=== PATIENT | male | born 1945 | race Caucasian/White ===

== ENCOUNTER 2016-11-01 09:25 | Outpatient (CLI) | payer MEDICARE, OTHER | END 2016-11-01 09:26 | disposition critical access hospital (66) | LOC: EMS 09:25 | PROVIDERS: ATTEND Surgery | DX: R41.82 Altered mental status, unspecified (principal) | CPT/HCPCS: A0425; A0427 ==

== ENCOUNTER 2016-11-01 09:35 | Inpatient (IN) | payer MEDICARE, OTHER ==
[2016-11-01] MEDS ORDERED: INSULIN REGULAR HUMAN 100 UNIT/1 ML 10 ML MDV IVP STA (10:40)
[2016-11-01] MEDS ORDERED: CALCIUM GLUCONATE 1000 MG/10 ML VIAL IVP STA (10:40)
[2016-11-01] MEDS ORDERED: FUROSEMIDE 40 MG/4 ML VIAL IVP STA (10:42)
[2016-11-01] MEDS ORDERED: SODIUM POLYSTYRENE SULFONATE 15 GM/60 ML BOTTLE PO STA (10:43)
[2016-11-01] MEDS ORDERED: FUROSEMIDE 40 MG/4 ML VIAL ONE (10:45)
[2016-11-01] MEDS ORDERED: CALCIUM GLUCONATE 1000 MG/10 ML VIAL ONE (10:45)
[2016-11-01] MEDS ORDERED: INSULIN REGULAR HUMAN 100 UNIT/1 ML 10 ML MDV ONE (10:45)
[2016-11-01] MEDS ORDERED: SODIUM POLYSTYRENE SULFONATE 15 GM/60 ML BOTTLE ONE (11:30)
[2016-11-01] MEDS ORDERED: HYDROcod/ACETAM 5/325 MG TABLET PO PRN (13:56)
[2016-11-01] MEDS ORDERED: ONDANSETRON 4 MG/2 ML VIAL IVP PRN (13:56)
[2016-11-01] MEDS ORDERED: ALBUTEROL NEB 2.5 MG/3 ML INH PRN (13:56)
[2016-11-01] MEDS ORDERED: ACETAMINOPHEN 325 MG TABLET PO PRN (13:56)
[2016-11-01] MEDS: SODIUM CHLORIDE 0.9% 1,000 ML IV SCH (14:59)
[2016-11-01] MEDS: SODIUM CHLORIDE FLUSH 0.9% 10 ML SYRINGE IVP PRN (15:00)
[2016-11-01] MEDS: SODIUM CHLORIDE FLUSH 0.9% 10 ML SYRINGE IVP SCH (15:00)
[2016-11-01] MEDS ORDERED: IPRATROPIUM/ALBUTEROL 3 ML NEB INH PRN (15:22)
[2016-11-01] MEDS: AMPICILLIN/SULBACTAM 3 GM in SODIUM CHLORIDE 0.9% MINIBAG 100 ML IV SCH (17:53)
[2016-11-01] MEDS: INSULIN ASPART 300 UNIT/3 ML PEN SUBQ SCH ×2 (18:15→21:37)
[2016-11-01] MEDS ORDERED: KETOROLAC TROMETHAMINE LEFTEYE SCH (18:30)
[2016-11-01] MEDS: prednisoLONE 1% OPHTH DROPS 75 DROPS/5 ML BOTTLE LEFTEYE SCH (18:35)
[2016-11-01] MEDS: HYDROmorphone 1 MG/ML SYRINGE IVP PRN ×2 (20:00→22:42)
[2016-11-01] MEDS: INSULIN GLARGINE 300 UNIT/3 ML PEN SUBQ SCH (21:36)
[2016-11-02] MEDS: AMPICILLIN/SULBACTAM 3 GM in SODIUM CHLORIDE 0.9% MINIBAG 100 ML IV SCH ×4 (00:23→17:20)
[2016-11-02] MEDS: HYDROmorphone 1 MG/ML SYRINGE IVP PRN (04:09)
[2016-11-02] MEDS: SODIUM CHLORIDE FLUSH 0.9% 10 ML SYRINGE IVP SCH ×3 (05:02→21:05)
[2016-11-02] MEDS: SODIUM CHLORIDE 0.9% 1,000 ML IV SCH ×2 (06:04→22:25)
[2016-11-02] MEDS: MAGNESIUM SULFATE 2 GRAM 50 ML IV SCH ×2 (06:58→08:23)
[2016-11-02] MEDS: NEUTRA-PHOS 250 MG TABLET PO SCH ×2 (06:59→08:19)
[2016-11-02] MEDS: INSULIN ASPART 300 UNIT/3 ML PEN SUBQ SCH ×4 (08:16→21:05)
[2016-11-02] MEDS: ENOXAPARIN 40 MG/0.4 ML SYRINGE SUBQ SCH (08:17)
[2016-11-02] MEDS: INSULIN GLARGINE 300 UNIT/3 ML PEN SUBQ SCH ×2 (08:17→21:04)
[2016-11-02] MEDS: KETOROLAC TROMETHAMINE LEFTEYE SCH ×4 (08:18→21:05)
[2016-11-02] MEDS: prednisoLONE 1% OPHTH DROPS 75 DROPS/5 ML BOTTLE LEFTEYE SCH ×4 (08:18→21:05)
[2016-11-02] MEDS: MAGNESIUM OXIDE 400 MG TABLET PO SCH ×2 (08:25→15:21)
[2016-11-02] MEDS ORDERED: ATORVASTATIN 10 MG TABLET PO SCH (21:00)
[2016-11-03] MEDS: AMPICILLIN/SULBACTAM 3 GM in SODIUM CHLORIDE 0.9% MINIBAG 100 ML IV SCH ×2 (01:50→06:36)
[2016-11-03] MEDS: LISINOPRIL 5 MG TABLET PO SCH ×2 (01:50→10:42)
[2016-11-03] MEDS: CARVEDILOL 12.5 MG TABLET PO SCH ×2 (01:50→10:41)
[2016-11-03] MEDS: SODIUM CHLORIDE FLUSH 0.9% 10 ML SYRINGE IVP PRN (01:51)
[2016-11-03] MEDS: SODIUM CHLORIDE 0.9% 1,000 ML IV SCH (02:09)
[2016-11-03] MEDS: SODIUM CHLORIDE FLUSH 0.9% 10 ML SYRINGE IVP SCH (07:32)
[2016-11-03] MEDS ORDERED: ALLOPURINOL 100 MG TABLET PO SCH (09:00)
[2016-11-03] MEDS ORDERED: CHOLECALCIFEROL 1,000 UNIT TABLET PO SCH (09:00)
[2016-11-03] MEDS ORDERED: SERTRALINE 50 MG TABLET PO SCH (09:00)
[2016-11-03] MEDS ORDERED: CLOPIDOGREL 75 MG TABLET PO SCH (09:00)
[2016-11-03] MEDS ORDERED: CYANOCOBALAMIN 500 MCG TABLET PO SCH (09:00)
[2016-11-03] MEDS: INSULIN ASPART 300 UNIT/3 ML PEN SUBQ SCH (10:41)
[2016-11-03] MEDS: ENOXAPARIN 40 MG/0.4 ML SYRINGE SUBQ SCH (10:42)
[2016-11-03] MEDS: KETOROLAC TROMETHAMINE LEFTEYE SCH (10:42)
[2016-11-03] MEDS: INSULIN GLARGINE 300 UNIT/3 ML PEN SUBQ SCH (10:42)
[2016-11-03] MEDS: prednisoLONE 1% OPHTH DROPS 75 DROPS/5 ML BOTTLE LEFTEYE SCH (10:43)
== END 2016-11-03 10:35 | disposition home or self-care (01) | DRG 177 ==
DX: J69.0 Pneumonitis due to inhalation of food and vomit (principal); R40.1 Stupor; J96.02 Acute respiratory failure with hypercapnia; J18.1 Lobar pneumonia, unspecified organism; J96.01 Acute respiratory failure with hypoxia; N17.9 Acute kidney failure, unspecified; E11.9 Type 2 diabetes mellitus without complications; E78.00 Pure hypercholesterolemia, unspecified; E87.5 Hyperkalemia; E11.65 Type 2 diabetes mellitus with hyperglycemia; G47.33 Obstructive sleep apnea (adult) (pediatric); I25.10 Atherosclerotic heart disease of native coronary artery without angina pectoris; I11.0 Hypertensive heart disease with heart failure; Z79.82 Long term (current) use of aspirin; I50.9 Heart failure, unspecified; G89.29 Other chronic pain; M79.605 Pain in left leg; K21.9 Gastro-esophageal reflux disease without esophagitis; E78.5 Hyperlipidemia, unspecified; E66.9 Obesity, unspecified; Z68.39 Body mass index [BMI] 39.0-39.9, adult; Z79.4 Long term (current) use of insulin; Z79.01 Long term (current) use of anticoagulants; Z79.891 Long term (current) use of opiate analgesic; Z79.84 Long term (current) use of oral hypoglycemic drugs; Z79.899 Other long term (current) drug therapy; Z95.1 Presence of aortocoronary bypass graft; Z95.5 Presence of coronary angioplasty implant and graft; Z87.891 Personal history of nicotine dependence

== ENCOUNTER 2017-11-13 17:16 | Inpatient (IN) | payer MEDICARE, OTHER ==
[2017-11-13 17:35] LABS: BASOPHILS # (AUTO) 0.1 10^3/uL (0.0-0.1); EOSINOPHILS # (AUTO) 0.1 10^3/uL (0.0-0.7); EOSINOPHILS % (AUTO) 1.3 %; HGB - HEMOGLOBIN 17.6 g/dL (14.0-18.0); LYMPHOCYTES # (AUTO) 1.2 10^3/uL (1.5-3.5); LYMPHOCYTES % (AUTO) 11.9 %; MEAN CORPUSCULAR HEMOGLOBIN 28.6 pg (27.0-31.0); MEAN CORPUSCULAR HGB CONC 33.3 g/dL (32.0-36.0); MEAN CORPUSCULAR VOLUME 85.7 fL (80.0-94.0); MEAN PLATELET VOLUME 6.5 fL (7.4-11.4); MONOCYTES # (AUTO) 0.5 10^3/uL (0.0-1.0); MONOCYTES % (AUTO) 5.3 %; NEUTROPHILS # (AUTO) 7.8 10^3/uL (1.5-6.6); NEUTROPHILS % (AUTO) 80.5 %; PLT - PLATELET COUNT 130 10^3/uL (130-450); RED BLOOD COUNT 6.16 10^6/uL (4.70-6.10); RED CELL DISTRIBUTION WIDTH 15.1 % (12.0-15.0); WHITE BLOOD COUNT 9.6 x10^3/uL (4.8-10.8)
--- NOTE | 2017-11-13 17:42 | ED Physician Documentation ---
History of Present Illness - Stated complaint Stated Complaint: DIABETIC/CONFUSION - Chief complaint Chief Complaint: Neuro - History obtained from History obtained from: Patient, Family - History of Present Illness Timing: How many days ago (3) Pain level max: 8 Pain level now: 8 Improved by: nothing Worsened by: nothing - Additonal information Additional information: Patient is a 72-year-old male who presents to the emergency department after a fall out of bed 3 days ago in which he struck his head. Since that time has had increasing headaches, becoming suddenly worsened today. Altered mental status per family, confused about events today per son. Unknown what medications he is taken at home. He is a diabetic, unclear if he took his medication today or not. Also states that he had abdominal pain today, no vomiting or diarrhea. No blood in the stool. Review of Systems Constitutional: denies: Fever, Chills Eyes: reports: Photophobia Ears: denies: Ear pain Nose: denies: Rhinorrhea / runny nose, Congestion Throat: denies: Sore throat Cardiac: denies: Chest pain / pressure Respiratory: denies: Cough, Wheezing GI: reports: Abdominal Pain. denies: Nausea, Vomiting, Diarrhea, Hematemesis, Bloody / black stool : denies: Dysuria Skin: denies: Rash Musculoskeletal: denies: Neck pain, Back pain Neurologic: reports: Headache, Head injury. denies: Focal weakness, Numbness, Syncope, Seizure PD PAST MEDICAL HISTORY - Past Medical History Past Medical History: Yes Cardiovascular: Congestive heart failure, Hypertension, High cholesterol, Coronary artery disease, [place] Respiratory: None, CPAP use Endocrine/Autoimmune: Type 2 diabetes GI: None : None HEENT: None Psych: None Musculoskeletal: None Derm: None - Past Surgical History Past Surgical History: Yes General: Cholecystectomy, Appendectomy Cardiovascular: CABG, Coronary stent, Angioplasty - Present Medications Home Medications: Ambulatory Orders Medication Instructions Recorded Confirmed Clopidogrel [Plavix] 75 mg PO DAILY 03/19/13 11/01/16 Cyanocobalamin (Vitamin B-12) 1,000 mcg PO DAILY 03/25/15 11/01/16 [B-12] Allopurinol 200 mg PO DAILY 11/01/16 11/01/16 Aspirin 81 tab PO DAILY 11/01/16 11/01/16 Atorvastatin Calcium 10 mg PO QPM 11/01/16 11/01/16 Bupropion HCl 37.5 mg PO BID 11/01/16 11/01/16 Cholecalciferol (Vitamin D3) 2,000 unit PO DAILY 11/01/16 11/01/16 [Vitamin D3] Furosemide [Lasix] 40 tab PO DAILY 11/01/16 11/01/16 Ketorolac Tromethamine [Acular] 1 drops LEFTEYE QID 11/01/16 11/01/16 Lisinopril [Zestril] 10 mg PO DAILY 11/01/16 11/01/16 Omeprazole 40 mg PO QDAC 11/01/16 11/01/16 Sertraline HCl [Zoloft] 200 mg PO DAILY 11/01/16 11/01/16 Testosterone Cypionate 100 mg IM TU 11/01/16 11/01/16 [Depo-Testosterone] prednisoLONE 1% OPHTH DROPS [Pred 1 drops LEFTEYE QID 11/01/16 11/01/16 Forte 1% Ophth Drops] Amox/Clav 875/125 [Augmentin] 1 each PO Q12H #14 tablet 11/03/16 Carvedilol [Coreg] 12.5 mg PO BID #45 tablet 11/03/16 Insulin Glargine [Lantus Solostar] 30 unit SUBQ BID 30 Days pen 11/03/16 - Allergies Allergies/Adverse Reactions: Allergies Allergy/AdvReac Type Severity Reaction Status Date / Time shellfish derived Allergy Unknown Verified 11/13/17 17:37 - Social History Does the pt smoke?: No Smoking Status: Never smoker Does the pt drink ETOH?: Yes Does the pt have substance abuse?: No - Immunizations Immunizations are current?: Yes - POLST Patient has POLST: No PD ED PE NORMAL - Vitals Vital signs reviewed: Yes - General General: Other (alert, oriented to person, place but not time) - HEENT HEENT: Atraumatic, PERRL, Ears normal, Moist mucous membranes, Other (abrasion and bruise to the L cheek) - Neck Neck: Supple, no meningeal sign, No bony TTP - Cardiac Cardiac: RRR, Strong equal pulses - Respiratory Respiratory: No respiratory distress, Clear bilaterally - Abdomen Abdomen: Other (mild diffuse TTP without peritoneal signs.) - Back Back: No spinal TTP - Derm Derm: Warm and dry - Extremities Extremities: No deformity, No tenderness to palpate - Neuro Neuro: college specialist 2-12 intact, No motor deficit, No sensory deficit, Normal speech Eye Opening: Spontaneous Motor: Obeys Commands Verbal: Confused GCS Score: 14 - Psych Psych: Normal affect Results - Vitals Vitals: Vital Signs - 24 hr 11/13/17 11/13/17 11/13/17 17:28 19:15 19:31 Temperature 36.4 C L Heart Rate 89 112 H 85 Respiratory 18 20 16 Rate Blood Pressure 159/88 H 212/86 H 162/78 H O2 Saturation 100 98 98 11/13/17 20:25 Temperature Heart Rate 99 Respiratory 16 Rate Blood Pressure 181/82 H O2 Saturation 98 Oxygen O2 Source [With Activity] Room air O2 Source [Without Activity] Room air O2 Source Nasal cannula Oxygen Flow Rate 2 - Labs Labs: Laboratory Tests 11/13/17 11/13/17 11/13/17 17:29 17:30 17:30 WBC 9.6 RBC 6.16 H Hgb 17.6 Hct 52.8 H MCV 85.7 MCH 28.6 MCHC 33.3 RDW 15.1 H Plt Count 130 MPV 6.5 L Neut # (Auto) 7.8 H Lymph # (Auto) 1.2 L [place] # (Auto) 0.5 Eos # (Auto) 0.1 Baso # (Auto) 0.1 Absolute Nucleated RBC 0.03 Nucleated RBC % 0.3 VBG pH VBG pCO2 VBG pO2 VBG HCO3 VBG Total CO2 VBG O2 Saturation VBG Base Excess Sodium 133 L Potassium 4.2 Chloride 96 L Carbon Dioxide 28 Anion Gap 9.0 BUN 15 Creatinine 1.2 Estimated GFR (MDRD) 60 L Glucose 293 H POC Whole Bld Glucose 308 H Glycated Hemoglobin Estim Average Glucose Calcium 9.6 Total Bilirubin 1.3 H AST 20 ALT 20 Alkaline Phosphatase 62 Total Protein 8.1 Albumin 4.1 Globulin 4.0 Albumin/Globulin Ratio 1.0 Lipase 26 Urine Color Urine Clarity Urine pH Ur Specific [place] Urine Protein Urine Glucose (UA) Urine Ketones Urine Occult Blood Urine Nitrite Urine Bilirubin Urine Urobilinogen Ur Leukocyte Esterase Urine RBC Urine WBC Ur Squamous Epith Cells Urine Bacteria Urine Casts Ur Microscopic Review Urine Culture Comments Salicylates Urine Opiates Screen Ur Oxycodone Screen Urine Methadone Screen Ur Propoxyphene Screen Acetaminophen Ur Barbiturates Screen Ur Tricyclics Screen Ur Phencyclidine Scrn Ur Amphetamine Screen U Methamphetamines Scrn U Benzodiazepines Scrn Urine Cocaine Screen U Cannabinoids Screen Ethyl Alcohol 11/13/17 11/13/17 11/13/17 17:30 18:48 18:48 WBC RBC Hgb Hct MCV MCH MCHC RDW Plt Count MPV Neut # (Auto) Lymph # (Auto) [place] # (Auto) Eos # (Auto) Baso # (Auto) Absolute Nucleated RBC Nucleated RBC % VBG pH 7.469 H VBG pCO2 42.4 VBG pO2 32.7 VBG HCO3 30.1 H VBG Total CO2 31.4 H VBG O2 Saturation 5.7 L VBG Base Excess 5.7 H Sodium Potassium Chloride Carbon Dioxide Anion Gap BUN Creatinine Estimated GFR (MDRD) Glucose POC Whole Bld Glucose Glycated Hemoglobin 8.5 H Estim Average Glucose 197 H Calcium Total Bilirubin AST ALT Alkaline Phosphatase Total Protein Albumin Globulin Albumin/Globulin Ratio Lipase Urine Color Urine Clarity Urine pH Ur Specific [place] Urine Protein Urine Glucose (UA) Urine Ketones Urine Occult Blood Urine Nitrite Urine Bilirubin Urine Urobilinogen Ur Leukocyte Esterase Urine RBC Urine WBC Ur Squamous Epith Cells Urine Bacteria Urine Casts Ur Microscopic Review Urine Culture Comments Salicylates < 6.0 Urine Opiates Screen Ur Oxycodone Screen Urine Methadone Screen Ur Propoxyphene Screen Acetaminophen < 10 L Ur Barbiturates Screen Ur Tricyclics Screen Ur Phencyclidine Scrn Ur Amphetamine Screen U Methamphetamines Scrn U Benzodiazepines Scrn Urine Cocaine Screen U Cannabinoids Screen Ethyl Alcohol < 5.0 11/13/17 19:08 WBC RBC Hgb Hct MCV MCH MCHC RDW Plt Count MPV Neut # (Auto) Lymph # (Auto) [place] # (Auto) Eos # (Auto) Baso # (Auto) Absolute Nucleated RBC Nucleated RBC % VBG pH VBG pCO2 VBG pO2 VBG HCO3 VBG Total CO2 VBG O2 Saturation VBG Base Excess Sodium Potassium Chloride Carbon Dioxide Anion Gap BUN Creatinine Estimated GFR (MDRD) Glucose POC Whole Bld Glucose Glycated Hemoglobin Estim Average Glucose Calcium Total Bilirubin AST ALT Alkaline Phosphatase Total Protein Albumin Globulin Albumin/Globulin Ratio Lipase Urine Color YELLOW Urine Clarity CLEAR Urine pH 6.5 Ur Specific [place] 1.015 Urine Protein 100 H Urine Glucose (UA) 500 H Urine Ketones NEGATIVE Urine Occult Blood TRACE-LYSE Urine Nitrite NEGATIVE Urine Bilirubin NEGATIVE Urine Urobilinogen 0.2 (NORMAL) Ur Leukocyte Esterase NEGATIVE Urine RBC 0-5 Urine WBC 0-3 Ur Squamous Epith Cells NONE SEEN Urine Bacteria None Seen Urine Casts 3-5 Hyaline Casts Ur Microscopic Review INDICATED Urine Culture Comments NOT INDICATED Salicylates Urine Opiates Screen NEGATIVE Ur Oxycodone Screen POSITIVE H Urine Methadone Screen NEGATIVE Ur Propoxyphene Screen NEGATIVE Acetaminophen Ur Barbiturates Screen NEGATIVE Ur Tricyclics Screen NEGATIVE Ur Phencyclidine Scrn NEGATIVE Ur Amphetamine Screen NEGATIVE U Methamphetamines Scrn NEGATIVE U Benzodiazepines Scrn NEGATIVE Urine Cocaine Screen NEGATIVE U Cannabinoids Screen NEGATIVE Ethyl Alcohol - Rads (name of study) head CT Radiology: Prelim report reviewed, EMP read contemporaneously, See rad report ( No acute intracranial abnormalities. ) abd/pelvis CT Radiology: Prelim report reviewed, EMP read contemporaneously, See rad report ( No acute abnormalities. ) PD MEDICAL DECISION MAKING - ED course Complexity details: reviewed results, re-evaluated patient, considered differential, d/w patient, d/w family, d/w apartment leasing consultant ED course: Patient is a 72-year-old male who presents to the emergency department with altered mental status of unclear etiology. No acute findings on head CT. He also had abdominal tenderness but his abdominal CT does not show any acute abnormalities as well. Pain was well controlled in the emergency department with morphine, but he is still altered and became more altered in the emergency department. We will admit the patient for further care. Has hyperglycemia as well, but I do not think this is elevated enough to cause his symptoms. Will likely benefit from an MRI in the morning. Discussed the case with Dr. López, hospitalist who accepts. This document was made in part using voice recognition software. While efforts are made to proofread this document, sound alike and grammatical errors may occur. - Sepsis Event Vital Signs: Vital Signs - 24 hr 11/13/17 11/13/17 11/13/17 17:28 19:15 19:31 Temperature 36.4 C L Heart Rate 89 112 H 85 Respiratory 18 20 16 Rate Blood Pressure 159/88 H 212/86 H 162/78 H O2 Saturation 100 98 98 11/13/17 20:25 Temperature Heart Rate 99 Respiratory 16 Rate Blood Pressure 181/82 H O2 Saturation 98 Oxygen O2 Source [With Activity] Room air O2 Source [Without Activity] Room air O2 Source Nasal cannula Oxygen Flow Rate 2 Departure - Departure Disposition: [facility] DC/Xfer Clinical Impression: Altered mental status Qualifiers: Altered mental status type: unspecified Qualified Code(s): R41.82 - Altered mental status, unspecified T2DM (type 2 diabetes mellitus) Qualifiers: Diabetes mellitus jail insulin use: with emt intermediate use Diabetes mellitus complication status: with unspecified complications Qualified Code(s): E11.8 - Type 2 diabetes mellitus with unspecified complications Condition: Stable Discharge Date/Time: 11/13/17 21:29
[2017-11-13 18:01] LABS: ALBUMIN 4.1 g/dL (3.2-5.5); BILIRUBIN,TOTAL 1.3 mg/dL (0.2-1.0); CALCIUM 9.6 mg/dL (8.5-10.3); CREATININE 1.2 mg/dL (0.6-1.2); TOTAL PROTEIN 8.1 g/dL (6.7-8.2)
[2017-11-13] MEDS ORDERED: ACETAMINOPHEN 325 MG TABLET PO STA (18:02)
--- NOTE | 2017-11-13 18:02 | CT Report ---
EXAM: CT HEAD EXAM DATE: 11/13/2017 05:51 PM. CLINICAL HISTORY: ALOC, fell, head injury 3 days ago. COMPARISON: 06/23/15. TECHNIQUE: Multiaxial CT images were obtained from the foramen magnum to the vertex. Reformats: Coron al. IV contrast: None. In accordance with CT protocol optimization, one or more of the following dose reduction techniques w ere utilized for this exam: automated exposure control, adjustment of mA and/or KV based on patient s ize, or use of iterative reconstructive technique. FINDINGS: Parenchyma: No intracranial hemorrhage. No evidence of mass, midline shift or CT findings of acute te rritorial infarction. Garcia-white differentiation is distinct. Extraaxial Spaces: No subdural or epidural collections identified. Ventricles: No hydrocephalus Sinuses: Imaged paranasal sinuses, orbits, and mastoids show no significant abnormality. Bilateral le ns extractions are present. Bones: No evidence of acute fracture or calvarial defect. Other: None. IMPRESSION: No acute intracranial abnormalities. [facility] Referring Provider Line: [phone] SITE ID: [id number]
--- NOTE | 2017-11-13 18:02 | CT Preliminary Report ---
Exam: CT HEAD W/O IMPRESSION: No acute intracranial abnormalities. [facility] SITE ID: [id number]
[2017-11-13] MEDS ORDERED: SODIUM CHLORIDE 0.9% 1,000 ML IV ONE ×2 (18:18→19:49)
[2017-11-13] MEDS ORDERED: IOPAMIDOL-300 100 ML VIAL ONE (18:18)
[2017-11-13] MEDS ORDERED: IOPAMIDOL-300 100 ML VIAL IVP ONE (18:29)
--- NOTE | 2017-11-13 18:43 | CT Report ---
EXAM: CT ABDOMEN AND PELVIS EXAM DATE: 11/13/2017 06:29 PM. CLINICAL HISTORY: Diffuse abd pain after fall. COMPARISONS: 06/29/08. TECHNIQUE: Routine helical CT imaging was performed through the abdomen and pelvis. IV contrast: ISOV UE 300 100mL. Enteric contrast: No. Reconstructions: Coronal and sagittal. In accordance with CT protocol optimization, one or more of the following dose reduction techniques w ere utilized for this exam: automated exposure control, adjustment of mA and/or KV based on patient s ize, or use of iterative reconstructive technique. FINDINGS: ABDOMEN: Lung Bases: Incompletely included lower lungs are grossly clear. Heart size is within normal limits. Coronary artery and aortic valvular calcifications are present. No basilar effusions. Liver: Unremarkable. Spleen: Unremarkable. Pancreas: Unremarkable. Gallbladder/Bile Ducts: Status post cholecystectomy. Biliary tree is normal caliber. Adrenal Glands: Unremarkable. Kidneys: No mass, calculi, or hydronephrosis. Bilateral renal cysts. Peritoneum/Mesentery/Bowel: No free fluid, free air, or collection. No intestinal obstruction or inflammation. Lymph nodes: No mesenteric, periportal, or retroperitoneal lymphadenopathy. Retroperitoneum: Abdominal aorta is nonaneurysmal. Portal vein is patent. Hepatic veins are patent. PELVIS: The bladder is unremarkable for the degree of distention. Prostate is present. No pelvic lymp hadenopathy. Bones: No suspicious osseous lesions. IMPRESSION: No acute abnormalities. [facility] Referring Provider Line: [phone] SITE ID: [id number]
--- NOTE | 2017-11-13 18:43 | CT Preliminary Report ---
Exam: CT ABDOMEN/PELVIS W/ IMPRESSION: No acute abnormalities. [facility] SITE ID: [id number]
[2017-11-13 18:55] LABS: VBG BASE EXCESS 5.7 mmol/L (-2 - +2); VBG PCO2 42.4 mmHg (41-51); VBG PH 7.469 (7.31-7.41); VBG PO2 32.7 mmHg (25-47); VBG TOTAL CO2 31.4 mmol/L (24-29)
[2017-11-13] MEDS ORDERED: MORPHINE 10 MG/ML VIAL IVP STA (18:58)
[2017-11-13 19:06] LABS: SALICYLATE < 6.0 mg/dL
[2017-11-13 19:21] LABS: ACETAMINOPHEN < 10 ug/mL (10-30)
[2017-11-13 19:23] LABS: MUDS CUTOFF CONCENTRATIONS CUTOFF CONC BELOW:
[2017-11-13 19:24] LABS: BILIRUBIN,URINE NEGATIVE (NEGATIVE); GLUCOSE, URINE (UA) 500 mg/dL (NEGATIVE); KETONES,URINE (UA) NEGATIVE (NEGATIVE); LEUKOCYTE ESTERASE, URINE NEGATIVE (NEGATIVE); NITRITE,URINE NEGATIVE (NEGATIVE); OCCULT BLOOD,URINE TRACE-LYSE (NEGATIVE); PH,URINE 6.5 PH (5.0-7.5); PROTEIN,URINE 100 mg/dL (NEGATIVE); UROBILINOGEN,URINE 0.2 (NORMAL) E.U./dL (NORMAL)
[2017-11-13 19:30] LABS: CLARITY,URINE CLEAR (CLEAR)
[2017-11-13 19:35] LABS: BACTERIA,URINE None Seen /HPF (None Seen); CASTS, URINE 3-5 Hyaline Casts /LPF; RBC,URINE 0-5 /HPF (0-5); SQUAMOUS EPITHELIAL CELL,UR NONE SEEN (<= Few)
[2017-11-13 19:36] LABS: AMPHETAMINE SCREEN,URINE NEGATIVE (NEGATIVE); BENZODIAZEPINES SCREEN, URINE NEGATIVE (NEGATIVE); COCAINE SCREEN URINE NEGATIVE (NEGATIVE); METHADONE SCREEN, URINE NEGATIVE (NEGATIVE); METHAMPHETAMINES SCREEN, URINE NEGATIVE (NEGATIVE); OPIATE SCREEN, URINE NEGATIVE (NEGATIVE); OXYCODONE SCREEN, URINE POSITIVE (NEGATIVE); PROPOXYPHENE SCREEN, URINE NEGATIVE (NEGATIVE); TRICYCLIC ANTIDEPRESSANT,URINE NEGATIVE (NEGATIVE)
[2017-11-13] MEDS ORDERED: ONDANSETRON 4 MG/2 ML VIAL ONE (19:40)
[2017-11-13] MEDS ORDERED: ONDANSETRON 4 MG/2 ML VIAL IVP STA (19:50)
[2017-11-13] MEDS ORDERED: HYDROmorphone 2 MG/ML VIAL IVP STA (20:15)
[2017-11-13] MEDS ORDERED: TEMAZEPAM 15 MG CAPSULE PO PRN (20:37)
[2017-11-13] MEDS ORDERED: HYDROcod/ACETAM 5/325 MG TABLET PO PRN (20:37)
[2017-11-13] MEDS ORDERED: ACETAMINOPHEN 325 MG TABLET PO PRN (20:37)
[2017-11-13] MEDS ORDERED: PROCHLORPERAZINE 10 MG/2 ML VIAL IVP PRN (20:37)
--- NOTE | 2017-11-13 20:51 | HISTORY & PHYSICAL EXAMINATION ---
Chief Complaint - Chief Complaint Chief Complaint: Altered mental status History of Present Illness - Admitted From Admitted From:: home - History Obtained From History obtained from: Pt's son, ED physician Exam Limitations: Pt has altered mental status - History of Present Illness HPI Comment/Other: Mr. Osmel Baxter is a pleasant 72-year-old gentleman who has a long history consistent for diabetes mellitus, coronary artery disease status post myocardial infarction, sleep apnea, and multiple other comorbidities. He also has a history of chronic nerve pain in his leg. The patient takes oxycodone for his nerve pain and his son relates that he takes about 10 tablets a day. Today the patient's son spoke with him about 1015 and he was fine but when he spoke with the patient around noon he was clearly not himself. The patient's other son's girlfriend who also lives with them saw the patient pouring bleach into the dryer and he was unable to make his thoughts clear. He was brought to the emergency department and is now being admitted with an altered mental status after the initial workup in the emergency department was negative. History - Past Medical History Cardiovascular: reports: Congestive heart failure, Hypertension, High cholesterol, Coronary artery disease, [place] Respiratory: reports: None, CPAP use Endocrine/Autoimmune: reports: Type 2 diabetes GI: reports: None : reports: None HEENT: reports: None Psych: reports: None Musculoskeletal: reports: None Derm: reports: None MRSA Hx?: No - Past Surgical History General: reports: Cholecystectomy, Appendectomy Cardiovascular: reports: CABG, Coronary stent, Angioplasty - Family & Social History Family History Comment/Other: The patient was adopted and does not know his family history. Living arrangement: At home Living Situation: With family - Substance History Use: Uses substance without health or social issues: Alcohol Abuse: Recurrent use of substance despite neg consequences: NONE Dependence: Experiences withdrawal or developed tolerances: NONE Tobacco Details: Cigarettes (Patient quit smoking at age 40 when he had his first heart attack) - POLST Patient has POLST: No POLST Status: Full Code Meds/Allgy - Home Medications Home Medications: Ambulatory Orders Medication Instructions Recorded Confirmed Clopidogrel [Plavix] 75 mg PO DAILY 03/19/13 11/01/16 Cyanocobalamin (Vitamin B-12) 1,000 mcg PO DAILY 03/25/15 11/01/16 [B-12] Allopurinol 200 mg PO DAILY 11/01/16 11/01/16 Aspirin 81 tab PO DAILY 11/01/16 11/01/16 Atorvastatin Calcium 10 mg PO QPM 11/01/16 11/01/16 Bupropion HCl 37.5 mg PO BID 11/01/16 11/01/16 Cholecalciferol (Vitamin D3) 2,000 unit PO DAILY 11/01/16 11/01/16 [Vitamin D3] Furosemide [Lasix] 40 tab PO DAILY 11/01/16 11/01/16 Ketorolac Tromethamine [Acular] 1 drops LEFTEYE QID 11/01/16 11/01/16 Lisinopril [Zestril] 10 mg PO DAILY 11/01/16 11/01/16 Omeprazole 40 mg PO QDAC 11/01/16 11/01/16 Sertraline HCl [Zoloft] 200 mg PO DAILY 11/01/16 11/01/16 Testosterone Cypionate 100 mg IM TU 11/01/16 11/01/16 [Depo-Testosterone] prednisoLONE 1% OPHTH DROPS [Pred 1 drops LEFTEYE QID 11/01/16 11/01/16 Forte 1% Ophth Drops] Amox/Clav 875/125 [Augmentin] 1 each PO Q12H #14 tablet 11/03/16 Carvedilol [Coreg] 12.5 mg PO BID #45 tablet 11/03/16 Insulin Glargine [Lantus Solostar] 30 unit SUBQ BID 30 Days pen 11/03/16 - Allergies Allergies/Adverse Reactions: Allergies Allergy/AdvReac Type Severity Reaction Status Date / Time shellfish derived Allergy Unknown Verified 11/13/17 17:37 Review of Systems - Constitutional Constitutional: reports: Weakness. denies: Fever, Chills, Night sweats - Eyes Eyes: denies: Pain, Blurred vision, Vision loss - Ears, Nose & Throat Ears, Nose & Throat: denies: Ear pain, Hearing loss, Tinnitus, Vertigo, Nosebleeds - Cardiovascular Cariovascular: denies: Chest pain, Edema, Syncope - Respiratory Respiratory: denies: Cough, Sputum production, Wheezing, Hemoptysis - Gastrointestinal Gastrointestinal: denies: Abdominal pain, Constipation, Diarrhea, Rectal bleeding - Genitourinary Genitourinary: denies: Dysuria, Frequency, Urgency - Musculoskeletal Musculoskeletal: denies: Muscle pain, Back pain, Muscle aches - Integumentary Integumentary: denies: Rash, Pruritis, Lesions - Neurological Neurological: reports: General weakness, Memory problems, Other (The patient's mental status is altered.) - Psychiatric Psychiatric: denies: Depression, Anxiety, Suicidal, Hallucinations - Endocrine Endocrine: denies: Polyuria, Polydypsia, Polyphagia - Hematologic/Lymphatic Hematologic/Lymphatic: denies: Anemia, Bruising, Petechiae, Lymphadenopathy - All Other Systems All Other Systems: reports: Reviewed and negative Exam - Vital Signs Reviewed Vital Signs: Yes Vital Signs: Vital Signs x48h Temp Pulse Resp BP Pulse Ox 11/13/17 20:25 99 16 181/82 H 98 11/13/17 19:31 85 16 162/78 H 98 11/13/17 19:15 112 H 20 212/86 H 98 11/13/17 17:28 36.4 C L 89 18 159/88 H 100 - Physical Exam General Appearance: positive: No acute distress, Mild distress, Lethargic Eyes Bilateral: positive: Normal inspection, PERRL, EOMI, No lid inflammation, Conjunctivae nml, No scleral icterus ENT: positive: ENT inspection nml, Pharynx nml, No signs of dehydration Neck: positive: Nml inspection, Thyroid nml, No JVD, Trachea midline. negative : Thyromegaly Respiratory: positive: Chest non-tender, No respiratory distress, Breath sounds nml. negative: Wheezes, Rales, Rhonchi Cardiovascular: positive: Regular rate & rhythm, No murmur, No gallop Peripheral Pulses: positive: 1+ Abdomen: positive: Non-tender, No organomegaly, Nml bowel sounds, No distention. negative: Guarding, Rebound Back: positive: Nml inspection. negative: CVA tenderness (R), CVA tenderness (L ) Skin: positive: Color nml, No rash, Warm, Dry. negative: Cyanosis Extremities: positive: Non-tender, Full ROM, Nml appearance, No pedal edema Neurologic/Psychiatric: positive: Motor nml, Sensation nml, Disoriented to place , Disoriented to time Conclusion/Plan - Problem List (1) Altered mental status Conclusion/Plan: Unsure of etiology. CAT scan of the brain was negative as was a CAT scan of the abdomen. UA was negative for any acute pathology. Chest x-ray was negative for any acute pathology. It is possible that the patient took too much oxycodone by mistake and if that is the case he should clear by the morning. If he is still altered in the morning we will obtain an MRI of his brain and continue to look for reasons that he has an altered mental status. Qualifiers: Altered mental status type: unspecified Qualified Code(s): R41.82 - Altered mental status, unspecified (2) Hyperlipidemia Conclusion/Plan: We will continue the patient on atorvastatin. (3) Hypertension Conclusion/Plan: The patient's blood pressure is elevated, we will restart him on his carvedilol , lisinopril, and Lasix (4) Coronary artery disease Conclusion/Plan: The patient has a history of a heart attack at age 40. We will restart him on his atorvastatin, furosemide, lisinopril, and Plavix. (5) History of gout Conclusion/Plan: Well-managed, no evidence of gouty arthritis at this time. We will continue the patient on allopurinol while he is inpatient. (6) Depression Conclusion/Plan: We will continue the patient on his Zoloft and bupropion. The patient's mental status is altered so we have no way of knowing whether or not he is depressed at this time. (7) Gastroesophageal reflux disease Conclusion/Plan: We will continue the patient on omeprazole. (8) T2DM (type 2 diabetes mellitus) Conclusion/Plan: We will restart the patient on his Lantus and add sliding scale for coverage. We will start the patient on a diabetic diet with low sodium. 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 CLINICAL HISTORY: ALOC, fell, head injury 3 days ago. COMPARISON: 06/23/15. TECHNIQUE: Multiaxial CT images were obtained from the foramen magnum to the vertex. Reformats: Coronal. IV contrast: None. In accordance with CT protocol optimization, one or more of the following dose reduction techniques were utilized for this exam: automated exposure control, adjustment of mA and/or KV based on patient size, or use of iterative reconstructive technique. FINDINGS: Parenchyma: No intracranial hemorrhage. No evidence of mass, midline shift or CT findings of acute territorial infarction. Garcia-white differentiation is distinct. Extraaxial Spaces: No subdural or epidural collections identified. Ventricles: No hydrocephalus Sinuses: Imaged paranasal sinuses, orbits, and mastoids show no significant abnormality. Bilateral lens extractions are present. Bones: No evidence of acute fracture or calvarial defect. Other: None. IMPRESSION: No acute intracranial abnormalities. EXAM: CT ABDOMEN AND PELVIS EXAM DATE: 11/13/2017 06:29 PM. CLINICAL HISTORY: Diffuse abd pain after fall. COMPARISONS: 06/29/08. TECHNIQUE: Routine helical CT imaging was performed through the abdomen and pelvis. IV contrast: ISOVUE 300 100mL. Enteric contrast: No. Reconstructions: Coronal and sagittal. In accordance with CT protocol optimization, one or more of the following dose reduction techniques were utilized for this exam: automated exposure control, adjustment of mA and/or KV based on patient size, or use of iterative reconstructive technique. FINDINGS: ABDOMEN: Lung Bases: Incompletely included lower lungs are grossly clear. Heart size is within normal limits. Coronary artery and aortic valvular calcifications are present. No basilar effusions. Liver: Unremarkable. Spleen: Unremarkable. Pancreas: Unremarkable. Gallbladder/Bile Ducts: Status post cholecystectomy. Biliary tree is normal caliber. Adrenal Glands: Unremarkable. Kidneys: No mass, calculi, or hydronephrosis. Bilateral renal cysts. Peritoneum/Mesentery/Bowel: No free fluid, free air, or collection. No intestinal obstruction or inflammation. Lymph nodes: No mesenteric, periportal, or retroperitoneal lymphadenopathy. Retroperitoneum: Abdominal aorta is nonaneurysmal. Portal vein is patent. Hepatic veins are patent. PELVIS: The bladder is unremarkable for the degree of distention. Prostate is present. No pelvic lymphadenopathy. Bones: No suspicious osseous lesions. IMPRESSION: No acute abnormalities. Core Measures - Anticipated LOS I expect patient to be DC'd or transferred within 96 hours.: Yes - DVT/VTE - Prophylaxis VTE/DVT Device ordered at admit?: Yes
[2017-11-13] MEDS ORDERED: KETOROLAC TROMETHAMINE LEFTEYE SCH (21:00)
[2017-11-13] MEDS ORDERED: BUPROPION HCL PO SCH (21:00)
[2017-11-13] MEDS ORDERED: ATORVASTATIN CALCIUM 10 MG PO SCH (21:00)
[2017-11-13] MEDS ORDERED: prednisoLONE 1% OPHTH DROPS 75 DROPS/5 ML BOTTLE LEFTEYE SCH (21:00)
[2017-11-13 21:38] LABS: HB2 TOTAL 19.7 g/dL; HEMOGLOBIN A1C 1.36 g/dL; HEMOGLOBIN A1C % 8.5 % (4.6-6.2)
[2017-11-13] MEDS: D5.45NS W/20 MEQ KCL 1,000 ML IV SCH (22:18)
[2017-11-13] MEDS: HYDROmorphone 0.5 MG/0.5 ML SYRINGE IVP PRN (22:23)
[2017-11-13] MEDS: CARVEDILOL 12.5 MG TABLET PO SCH (22:26)
[2017-11-13] MEDS: INSULIN GLARGINE 300 UNIT/3 ML PEN SUBQ SCH (22:31)
[2017-11-13] MEDS ORDERED: ATORVASTATIN 10 MG TABLET PO SCH (23:00)
[2017-11-13] MEDS: SODIUM CHLORIDE FLUSH 0.9% 10 ML SYRINGE IVP SCH (23:38)
[2017-11-14] MEDS: HYDROmorphone 0.5 MG/0.5 ML SYRINGE IVP PRN (04:23)
[2017-11-14] MEDS: SODIUM CHLORIDE FLUSH 0.9% 10 ML SYRINGE IVP PRN ×2 (04:24→04:25)
[2017-11-14] MEDS ORDERED: PANTOPRAZOLE 40 MG TABLET PO SCH (07:00)
[2017-11-14] MEDS ORDERED: NON FORMULARY MED (Omeprazole [Omeprazole] 40 MG) PO SCH (07:00)
[2017-11-14 07:50] LABS: HGB - HEMOGLOBIN 16.4 g/dL (14.0-18.0); MEAN CORPUSCULAR HEMOGLOBIN 28.4 pg (27.0-31.0); MEAN CORPUSCULAR HGB CONC 33.1 g/dL (32.0-36.0); MEAN CORPUSCULAR VOLUME 85.8 fL (80.0-94.0); RED BLOOD COUNT 5.79 10^6/uL (4.70-6.10); RED CELL DISTRIBUTION WIDTH 15.3 % (12.0-15.0); WHITE BLOOD COUNT 11.8 x10^3/uL (4.8-10.8)
[2017-11-14 07:53] LABS: CALCIUM 8.7 mg/dL (8.5-10.3); CREATININE 1.1 mg/dL (0.6-1.2)
[2017-11-14] MEDS ORDERED: LISINOPRIL 5 MG TABLET PO SCH (09:00)
[2017-11-14] MEDS ORDERED: POLYETHYLENE GLYCOL 3350 17 GM PACKET PO SCH (09:00)
[2017-11-14] MEDS ORDERED: ASPIRIN CHEW 81 MG TABLET PO SCH (09:00)
[2017-11-14] MEDS ORDERED: ALLOPURINOL 100 MG TABLET PO SCH (09:00)
[2017-11-14] MEDS ORDERED: KETOROLAC 0.45% OPHTH DROPS LEFTEYE SCH (09:00)
[2017-11-14] MEDS ORDERED: LISINOPRIL 10 MG PO SCH (09:00)
[2017-11-14] MEDS ORDERED: CYANOCOBALAMIN 500 MCG TABLET PO SCH (09:00)
[2017-11-14] MEDS ORDERED: CLOPIDOGREL 75 MG TABLET PO SCH (09:00)
[2017-11-14] MEDS ORDERED: SERTRALINE 50 MG TABLET PO SCH (09:00)
[2017-11-14] MEDS ORDERED: CYANOCOBALAMIN 1000 MCG PO SCH (09:00)
[2017-11-14] MEDS ORDERED: SERTRALINE HCL 200 MG PO SCH (09:00)
[2017-11-14] MEDS ORDERED: NON FORMULARY MED (Cholecalciferol (Vitamin D3) [Vitamin D3] 2,000 UNIT) PO SCH (09:00)
[2017-11-14] MEDS ORDERED: FUROSEMIDE 40 MG TABLET PO SCH (09:00)
[2017-11-14] MEDS ORDERED: CHOLECALCIFEROL 1,000 UNIT TABLET PO SCH (09:00)
[2017-11-14] MEDS: D5.45NS W/20 MEQ KCL 1,000 ML IV SCH (09:28)
[2017-11-14] MEDS: INSULIN ASPART 300 UNIT/3 ML PEN SUBQ SCH ×3 (09:31→17:03)
[2017-11-14] MEDS: SODIUM CHLORIDE FLUSH 0.9% 10 ML SYRINGE IVP SCH ×2 (10:17→17:03)
[2017-11-14] MEDS ORDERED: GADOBUTROL 15 MMOL/15 ML VIAL ONE (10:30)
[2017-11-14] MEDS: CARVEDILOL 12.5 MG TABLET PO SCH (11:05)
[2017-11-14] MEDS: INSULIN GLARGINE 300 UNIT/3 ML PEN SUBQ SCH (11:06)
--- NOTE | 2017-11-14 15:02 | MRI Preliminary Report ---
Exam: MRI BRAIN W/O Impression: 1. The patient was not able to hold still for this examination. There is image degradation from patie nt motion that decreases the diagnostic quality of this study. 2. There appears be a mild amount of white matter disease. The findings are nonspecific, however, thi s most likely represents chronic microangiopathy. 3. No other significant intracranial abnormality is demonstrated. In particular, no evidence of infar ction, hemorrhage or space-occupying mass. SITE ID: [id number]
--- NOTE | 2017-11-14 15:17 | MRI Preliminary Report ---
Exam: MRI ANGIO BRAIN W/O (MRA) Impression: 1. The patient was not able to hold still for this examination. There is significant image degradatio n from patient motion, limiting evaluation. 2. No obvious occlusion or hemodynamically significant stenosis is verified in May branches of the an terior circulation. 3. There may be occlusion of the right superior cerebellar artery, roughly 9-10 mm distal to its orig in. Otherwise, main branches of the intracranial vertebrobasilar system appear to be patent. There is a origin of the right FLIGHT SURVEYOR that explains the small caliber of the intracranial vertebral arteri es and the basilar artery. SITE ID: [id number]
--- NOTE | 2017-11-14 15:31 | MRI Report ---
EXAM: MR ANGIOGRAM WITHOUT CONTRAST. INDICATION: 72-year-old male with altered metal status. Disoriented. Please assess. TECHNIQUE: 3-D, [id number] MR angiography. FINDINGS: The patient was not able to hold still for this examination. The study was performed twice, however, examinations are limited due to artifact from patient motion. Series 1501 is significantly better ibis n series 501. The intracranial internal carotid arteries are patent. There is irregularity in the carotid siphons, almost certainly from atherosclerotic plaque. No flow gap is identified in either siphon to suggest h igh-grade stenosis. No obvious ICA aneurysm is demonstrated. The A1 segments of the anterior cerebral arteries are essentially codominant. A tiny anterior communicating artery appears to be present. Kostas w-related enhancement is identified in the imaged KADEN branches without obvious KADEN branch occlusion. MCAs are poorly assessed due to artifact from patient motion. No aneurysm is demonstrated. In additio n, there is no obvious occlusion or hemodynamically significant stenosis affecting the main branches of either MCA. The intracranial left vertebral artery is very hypoplastic, however, it appears to be patent to the v ertebrobasilar junction. No definite left PICA is seen. The right vertebral artery has a normal calib er. Flow-related enhancement is seen in the right PICA. The basilar artery is relatively small but ap pears patent without focal stenosis. There appears be flow-related enhancement in the left superior c erebellar artery. Flow related enhancement is demonstrated in at least the proximal right superior ce rebellar artery. However, it is difficult to exclude occlusion roughly 9-10 mm from the origin. Main, left SUBSTANCE ABUSE COUNSELOR branches appear patent. The P1 segment of the right posterior cerebral artery is developmen tally absent. There is a large right posterior communicating artery that supplies the P2 and distal r ight SUBSTANCE ABUSE COUNSELOR branches. Main right SUBSTANCE ABUSE COUNSELOR branches appear to be patent. Assessment is very limited due to mot ion artifact. IMPRESSION: 1. The patient was not able to hold still for this examination. There is significant image degradatio n from patient motion, limiting evaluation. 2. No obvious occlusion or hemodynamically significant stenosis is identified in main branches of the anterior circulation. 3. There may be occlusion of the right superior cerebellar artery, roughly 9-10 mm distal to its orig in. Otherwise, main branches of the intracranial vertebrobasilar system appear to be patent. There is a origin of the right SUBSTANCE ABUSE COUNSELOR that explains the small caliber of the intracranial vertebral arteri es and the basilar artery. Referring Provider Line: [phone] SITE ID: [id number]
--- NOTE | 2017-11-14 15:31 | MRI Report ---
MRI BRAIN WITHOUT CONTRAST INDICATION: 72-year-old male with altered mental status. The patient is disoriented. History of recen t head trauma. TECHNIQUE: 1. T1 sagittal and fat-saturated T2 coronal. 2. Axial T1 3-D, FLAIR, T2, T2* and DWI. COMPARISON: Head CT 11/13/2017. FINDINGS: The patient was not able to hold still for this examination. There is image degradation from motion t hat significantly limits the diagnostic quality of this study. There is generalized prominence of the cerebral cortical sulci, considered within normal limits for s tated age. Mild associated, ex vacuo third/lateral ventriculomegaly. No evidence of hydrocephalus. There appears to be a mild amount of white matter disease in the supratentorial brain, manifested as small T2 hyperintensities that are scattered throughout the periventricular, deep and subcortical whi te matter bilaterally. A frontoparietal distribution predominates. There appears to be a roughly 5 mm diameter focus of the hyperintensity in deep white matter left cerebellum (see image 6 of series 100 1). However, this certainly could represent artifact. There appear to be flow voids for the main intr acranial arteries. The DWI sequence is of relatively good, diagnostic quality. No abnormal diffusion restriction is demonstrated. No evidence of acute or chronic hemorrhage on T2* GRE sequence. No abnor mal extra-axial fluid collection. No mass effect or midline shift. Limited assessment of the orbits reveals no gross pathology. Changes of previous ocular lens extracti on are noted bilaterally. The paranasal sinuses are essentially clear. No mastoid or middle ear effusion is demonstrated. IMPRESSION: 1. The patient was not able to hold still for this examination. There is image degradation from patie nt motion that decreases the diagnostic quality of this study. 2. There appears to be a mild amount of white matter disease. The findings are nonspecific, however, this most likely represents chronic microangiopathy. 3. No other significant intracranial abnormality is demonstrated. In particular, no evidence of infar ction, hemorrhage or space-occupying mass. Referring Provider Line: [phone] SITE ID: [id number]
--- NOTE | 2017-11-14 17:42 | Discharge Plan ---
Discharge Plan Disposition: Home, Self Care Condition: Stable Diet: Diabetic Activity Restrictions: Activity as Tolerated Shower Restrictions: No Driving Restrictions: No Weight Bearing: Full Weight Additional Instructions or Follow Up instructions: Follow-up with your primary care doctor at the [facility] on Thursday as scheduled No Smoking: If you smoke, Please STOP! Call for help. Follow-up with: Niru Chandler ARNP [Primary Care Provider] -
--- NOTE | 2017-11-14 17:48 | DISCHARGE SUMMARY ---
Discharge Summary Admit Date: 11/13/17 Discharge Date: 11/14/17 Discharging Provider: Davina López DO Primary Care Provider: Niru Chandler Code Status: Attempt Resuscitation Condition at Discharge: Stable Discharge Disposition: 01 Home, Self Care - DIAGNOSES Admission Diagnoses: 1. Altered mental status 2. Hyperlipidemia 3. Hypertension 4. Coronary artery disease 5. History of gout 6. Depression 7. Gastroesophageal reflux disease 8. Type 2 diabetes mellitus Discharge Diagnoses with Status of Each Condition: 1. Altered mental status- Unsure of etiology. CAT scan of the brain was negative as was a CAT scan of the abdomen. UA was negative for any acute pathology. Chest x-ray was negative for any acute pathology. It is possible that the patient took too much oxycodone by mistake; In fact, his mentation improved significantly by the morning. At this point in time his son says that his mentation is back to his baseline. An MRI of his brain Was performed however there was significant artifact due to the patient being unable to sit still. Nonetheless there was no significant abnormality found on the MRI of the brain. At this point the patient has returned to his baseline and is requesting to be discharged; I will do so. 2. Hyperlipidemia- The patient will resume his home atorvastatin 3. Hypertension - The patient will resume his carvedilol, lisinopril, and Lasix. The patient has been hypertensive during his hospitalization but his current blood pressure is 139/66. 4. Coronary artery disease - The patient has a history of a heart attack at age 40. He will resume his atorvastatin, furosemide, lisinopril, and Plavix. 5. History of gout - Well-managed, no evidence of gouty arthritis at this time. The patient will continue allopurinol while he is At home. 6. Depression -The patient will continue on his Zoloft and bupropion. His mental status changes have resolved and he is back to baseline at this time. There is no evidence of depression or anxiety. 7. Gastroesophageal reflux disease - Patient will resume omeprazole at home. 8. Type 2 diabetes mellitus - The patient will resume his home diabetic diet and home anti-hyperglycemic medication regimen. - HPI History of Present Illness: Mr. Osmel Baxter is a pleasant 72-year-old gentleman who has a long history consistent for diabetes mellitus, coronary artery disease status post myocardial infarction, sleep apnea, and multiple other comorbidities. He also has a history of chronic nerve pain in his leg. The patient takes oxycodone for his nerve pain and his son relates that he takes about 10 tablets a day. Today the patient's son spoke with him about 1015 and he was fine but when he spoke with the patient around noon he was clearly not himself. The patient's other son's girlfriend who also lives with them saw the patient pouring bleach into the dryer and he was unable to make his thoughts clear. He was brought to the emergency department and is now being admitted with an altered mental status after the initial workup in the emergency department was negative. - HOSPITAL COURSE Hospital Course: The patient was admitted to the hospital and blood cultures were obtained. Overnight the patient's mentation cleared significantly, however he still went for brain MRI this morning. The brain MRI failed to show any acute pathology which could account for the patient's altered mental status. As the day progressed the patient began to improve to the point where now his son says he is back to his baseline. At this point the patient is requesting to be discharged and I see no reason to hold him here at this time. - ALLERGIES Allergies/Adverse Reactions: Allergies Allergy/AdvReac Type Severity Reaction Status Date / Time shellfish derived Allergy Unknown Verified 11/13/17 17:37 - MEDICATIONS Home Medications: Ambulatory Orders Medication Instructions Recorded Confirmed Cyanocobalamin (Vitamin B-12) 1,000 mcg PO DAILY 03/25/15 11/14/17 [B-12] Allopurinol 200 mg PO DAILY 11/01/16 11/14/17 Aspirin 81 tab PO DAILY 11/01/16 11/14/17 Atorvastatin Calcium 20 mg PO QPM 11/01/16 11/14/17 Cholecalciferol (Vitamin D3) 2,000 unit PO DAILY 11/01/16 11/14/17 [Vitamin D3] Lisinopril [Zestril] 10 mg PO DAILY 11/01/16 11/14/17 Omeprazole 40 mg PO QDAC 11/01/16 11/14/17 Sertraline HCl [Zoloft] 100 mg PO DAILY 11/01/16 11/14/17 Testosterone Cypionate 100 mg IM Q14D 11/01/16 11/14/17 [Depo-Testosterone] Carvedilol [Coreg] 12.5 mg PO BID #45 tablet 11/03/16 11/14/17 Atorvastatin [Lipitor] 10 mg PO QPM tablet 11/14/17 Bupropion HCl [Bupropion HCl] 37.5 mg PO BID 11/14/17 Clopidogrel [Plavix] 75 mg PO DAILY tablet 11/14/17 Furosemide [Lasix] 40 mg PO DAILY tablet 11/14/17 Insulin Aspart [NovoLOG] 1 - 9 unit SUBQ 11/14/17 0800,1200,1700,2100 pen Insulin Glargine [Lantus Solostar] 30 unit SUBQ BID pen 11/14/17 Insulin Glargine [Lantus Solostar] 42 units SUBQ DAILY 11/14/17 11/14/17 Ketorolac 0.45% Ophth Drops 1 drops LEFTEYE QID bottle 11/14/17 [Acuvail] Lisinopril [Zestril] 10 mg PO DAILY tablet 11/14/17 Metformin HCl [Metformin HCl ER] 2,000 mg PO DAILY 11/14/17 11/14/17 Pantoprazole [Protonix] 40 mg PO QDAC tablet 11/14/17 Polyethylene Glycol 3350 [Miralax] 17 gm PO DAILY packet 11/14/17 Sertraline [Zoloft] 200 mg PO DAILY tablet 11/14/17 prednisoLONE 1% OPHTH DROPS [Pred 1 drops LEFTEYE QID bottle 11/14/17 Forte 1% Ophth Drops] - PHYSICAL EXAM AT DISCHARGE General Appearance: positive: No acute distress, Alert Eyes Bilateral: positive: Normal inspection, PERRL, EOMI, No lid inflammation, Conjunctivae nml, No scleral icterus ENT: positive: ENT inspection nml, Pharynx nml, No signs of dehydration Neck: positive: Nml inspection, Thyroid nml, No JVD, Trachea midline. negative : Thyromegaly Respiratory: positive: Chest non-tender, No respiratory distress, Breath sounds nml. negative: Wheezes, Rales, Rhonchi Cardiovascular: positive: Regular rate & rhythm, No murmur, No gallop Peripheral Pulses: positive: 1+ Abdomen: positive: Non-tender, No organomegaly, Nml bowel sounds, No distention. negative: Guarding, Rebound Back: positive: Nml inspection. negative: CVA tenderness (R), CVA tenderness (L ) Skin: positive: Color nml, No rash, Warm, Dry. negative: Cyanosis Extremities: positive: Non-tender, Full ROM, Nml appearance, No pedal edema Neurologic/Psychiatric: positive: Oriented x3, CN's nml (2-12), Motor nml, Sensation nml, Mood/affect nml - LABS Result Diagrams: 11/14/17 07:39 11/14/17 07:39 - DIAGNOSTIC IMAGING Diagnostic Imaging Results: Final report reviewed Diagnostic Imaging Results Comments: EXAM: CT HEAD EXAM DATE: 11/13/2017 05:51 PM. CLINICAL HISTORY: ALOC, fell, head injury 3 days ago. COMPARISON: 06/23/15. TECHNIQUE: Multiaxial CT images were obtained from the foramen magnum to the vertex. Reformats: Coronal. IV contrast: None. In accordance with CT protocol optimization, one or more of the following dose reduction techniques were utilized for this exam: automated exposure control, adjustment of mA and/or KV based on patient size, or use of iterative reconstructive technique. FINDINGS: Parenchyma: No intracranial hemorrhage. No evidence of mass, midline shift or CT findings of acute territorial infarction. Garcia-white differentiation is distinct. Extraaxial Spaces: No subdural or epidural collections identified. Ventricles: No hydrocephalus Sinuses: Imaged paranasal sinuses, orbits, and mastoids show no significant abnormality. Bilateral lens extractions are present. Bones: No evidence of acute fracture or calvarial defect. Other: None. IMPRESSION: No acute intracranial abnormalities. EXAM: CT ABDOMEN AND PELVIS EXAM DATE: 11/13/2017 06:29 PM. CLINICAL HISTORY: Diffuse abd pain after fall. COMPARISONS: 06/29/08. TECHNIQUE: Routine helical CT imaging was performed through the abdomen and pelvis. IV contrast: ISOVUE 300 100mL. Enteric contrast: No. Reconstructions: Coronal and sagittal. In accordance with CT protocol optimization, one or more of the following dose reduction techniques were utilized for this exam: automated exposure control, adjustment of mA and/or KV based on patient size, or use of iterative reconstructive technique. FINDINGS: ABDOMEN: Lung Bases: Incompletely included lower lungs are grossly clear. Heart size is within normal limits. Coronary artery and aortic valvular calcifications are present. No basilar effusions. Liver: Unremarkable. Spleen: Unremarkable. Pancreas: Unremarkable. Gallbladder/Bile Ducts: Status post cholecystectomy. Biliary tree is normal caliber. Adrenal Glands: Unremarkable. Kidneys: No mass, calculi, or hydronephrosis. Bilateral renal cysts. Peritoneum/Mesentery/Bowel: No free fluid, free air, or collection. No intestinal obstruction or inflammation. Lymph nodes: No mesenteric, periportal, or retroperitoneal lymphadenopathy. Retroperitoneum: Abdominal aorta is nonaneurysmal. Portal vein is patent. Hepatic veins are patent. PELVIS: The bladder is unremarkable for the degree of distention. Prostate is present. No pelvic lymphadenopathy. Bones: No suspicious osseous lesions. IMPRESSION: No acute abnormalities. EXAM: [id number] MRI/BRWO ([id number]) MRI BRAIN WITHOUT CONTRAST INDICATION: 72-year-old male with altered mental status. The patient is disoriented. History of recent head trauma. TECHNIQUE: 1. T1 sagittal and fat-saturated T2 coronal. 2. Axial T1 3-D, FLAIR, T2, T2* and DWI. COMPARISON: Head CT 11/13/2017. FINDINGS: The patient was not able to hold still for this examination. There is image degradation from motion that significantly limits the diagnostic quality of this study. There is generalized prominence of the cerebral cortical sulci, considered within normal limits for stated age. Mild associated, ex vacuo third/lateral ventriculomegaly. No evidence of hydrocephalus. There appears to be a mild amount of white matter disease in the supratentorial brain, manifested as small T2 hyperintensities that are scattered throughout the periventricular, deep and subcortical white matter bilaterally. A frontoparietal distribution predominates. There appears to be a roughly 5 mm diameter focus of the hyperintensity in deep white matter left cerebellum (see image 6 of series 1001). However, this certainly could represent artifact. There appear to be flow voids for the main intracranial arteries. The DWI sequence is of relatively good , diagnostic quality. No abnormal diffusion restriction is demonstrated. No evidence of acute or chronic hemorrhage on T2* GRE sequence. No abnormal extra-axial fluid collection. No mass effect or midline shift. Limited assessment of the orbits reveals no gross pathology. Changes of previous ocular lens extraction are noted bilaterally. The paranasal sinuses are essentially clear. No mastoid or middle ear effusion is demonstrated. IMPRESSION: 1. The patient was not able to hold still for this examination. There is image degradation from patient motion that decreases the diagnostic quality of this study. 2. There appears to be a mild amount of white matter disease. The findings are nonspecific, however , this most likely represents chronic microangiopathy. 3. No other significant intracranial abnormality is demonstrated. In particular , no evidence of infarction, hemorrhage or space-occupying mass. EXAM: MR ANGIOGRAM WITHOUT CONTRAST. INDICATION: 72-year-old male with altered metal status. Disoriented. Please assess. TECHNIQUE: 3-D, [id number] MR angiography. FINDINGS: The patient was not able to hold still for this examination. The study was performed twice, however , examinations are limited due to artifact from patient motion. Series 1501 is significantly better than series 501. The intracranial internal carotid arteries are patent. There is irregularity in the carotid siphons , almost certainly from atherosclerotic plaque. No flow gap is identified in either siphon to suggest high-grade stenosis. No obvious ICA aneurysm is demonstrated. The A1 segments of the anterior cerebral arteries are essentially codominant. A tiny anterior communicating artery appears to be present. Flow-related enhancement is identified in the imaged KADEN branches without obvious KADEN branch occlusion. MCAs are poorly assessed due to artifact from patient motion. No aneurysm is demonstrated. In addition, there is no obvious occlusion or hemodynamically significant stenosis affecting the main branches of either MCA. The intracranial left vertebral artery is very hypoplastic, however, it appears to be patent to the vertebrobasilar junction. No definite left PICA is seen. The right vertebral artery has a normal caliber. Flow-related enhancement is seen in the right PICA. The basilar artery is relatively small but appears patent without focal stenosis. There appears be flow-related enhancement in the left superior cerebellar artery. Flow related enhancement is demonstrated in at least the proximal right superior cerebellar artery. However, it is difficult to exclude occlusion roughly 9-10 mm from the origin. Main, left COMMUTATOR ASSEMBLER branches appear patent. The P1 segment of the right posterior cerebral artery is developmentally absent. There is a large right posterior communicating artery that supplies the P2 and distal right COMMUTATOR ASSEMBLER branches. Main right COMMUTATOR ASSEMBLER branches appear to be patent. Assessment is very limited due to motion artifact. IMPRESSION: 1. The patient was not able to hold still for this examination. There is significant image degradation from patient motion, limiting evaluation. 2. No obvious occlusion or hemodynamically significant stenosis is identified in main branches of the anterior circulation. 3. There may be occlusion of the right superior cerebellar artery, roughly 9-10 mm distal to its origin. Otherwise, main branches of the intracranial vertebrobasilar system appear to be patent. There is a origin of the right COMMUTATOR ASSEMBLER that explains the small caliber of the intracranial vertebral arteries and the basilar artery. - FOLLOW UP Follow Up: Follow-up with your doctor at the [facility] on November 19 as already scheduled. Return to the emergency department if you have any further problems with confusion or altered mental status - TIME SPENT Time Spent in Discharge (Minutes): 40
[2017-11-14 18:04] VITALS: BP 124/66
== END 2017-11-14 18:05 | disposition home or self-care (01) | DRG 948 ==
LOC: ED 17:16 → MS2 20:37
PROVIDERS: ADMIT Hospitalist; ATTEND Hospitalist
DX: R41.0 Disorientation, unspecified (principal); R10.817 Generalized abdominal tenderness; E11.65 Type 2 diabetes mellitus with hyperglycemia; T40.2X1A Poisoning by other opioids, accidental (unintentional), initial encounter; E78.5 Hyperlipidemia, unspecified; I25.10 Atherosclerotic heart disease of native coronary artery without angina pectoris; E78.00 Pure hypercholesterolemia, unspecified; Z91.81 History of falling; M10.9 Gout, unspecified; F32.9 Major depressive disorder, single episode, unspecified; Z90.49 Acquired absence of other specified parts of digestive tract; K21.9 Gastro-esophageal reflux disease without esophagitis; Z79.82 Long term (current) use of aspirin; E11.8 Type 2 diabetes mellitus with unspecified complications; G47.30 Sleep apnea, unspecified; G89.29 Other chronic pain; M79.2 Neuralgia and neuritis, unspecified; I11.0 Hypertensive heart disease with heart failure; I50.9 Heart failure, unspecified; I25.2 Old myocardial infarction; Z79.4 Long term (current) use of insulin; Z79.899 Other long term (current) drug therapy; Z79.02 Long term (current) use of antithrombotics/antiplatelets; Z95.5 Presence of coronary angioplasty implant and graft; Z95.1 Presence of aortocoronary bypass graft; Z87.891 Personal history of nicotine dependence
CPT/HCPCS: 36415; 70450; 70544; 70551; 74177; 80048; 80053; 80306; 80307; 80320; 80329; 81001; 81003; 82803; 83036; 83690; 85025; 85027; 87086; 96361; 96374; 96375; 99284; 99285

== ENCOUNTER 2018-02-16 22:30 | Outpatient (CLI) | payer MEDICARE, OTHER | END 2018-02-16 22:31 | disposition short-term general hospital (02) | LOC: EMS 22:30 | PROVIDERS: ATTEND Surgery | DX: R07.9 Chest pain, unspecified (principal); R00.2 Palpitations | CPT/HCPCS: A0425; A0427 ==

== ENCOUNTER 2018-03-04 19:55 | Emergency (ER) | payer MEDICARE, OTHER ==
--- NOTE | 2018-03-04 20:19 | ED Physician Documentation ---
PD HPI HEENT - Stated complaint Stated Complaint: NOSE BLEED - Chief complaint Chief Complaint: Heent - History obtained from History obtained from: Patient - History of Present Illness Timing - onset: How many hours ago (3) Timing - duration: Hours Timing - details: Abrupt onset Pain level max: 0 Pain level now: 0 Location: Nose Recently seen: Not recently seen - Additional information Additional information: 4-5 days of mild, episodic left nare epistaxis. 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 Denies h/o nosebleeds requiring medical attention. Denies trauma. Review of Systems Constitutional: denies: Fever Nose: reports: Epistaxis. denies: Rhinorrhea / runny nose, Congestion, Sinus pressure / pain PD PAST MEDICAL HISTORY - Past Medical History Cardiovascular: Congestive heart failure, Hypertension, High cholesterol, Cor onary artery disease, MS Respiratory: None, CPAP use Endocrine/Autoimmune: Type 2 diabetes GI: None : None HEENT: None Psych: None Musculoskeletal: None Derm: None - Past Surgical History Past Surgical History: Yes General: Cholecystectomy, Appendectomy Cardiovascular: CABG, Coronary stent, Angioplasty - Present Medications Home Medications: Ambulatory Orders Medication Instructions Recorded Confirmed Cyanocobalamin (Vitamin B-12) 1,000 mcg PO DAILY 03/25/15 11/14/17 [B-12] Allopurinol 200 mg PO DAILY 11/01/16 11/14/17 Aspirin 81 tab PO DAILY 11/01/16 11/14/17 Atorvastatin Calcium 20 mg PO QPM 11/01/16 11/14/17 Cholecalciferol (Vitamin D3) 2,000 unit PO DAILY 11/01/16 11/14/17 [Vitamin D3] Lisinopril [Zestril] 10 mg PO DAILY 11/01/16 11/14/17 Omeprazole 40 mg PO QDAC 11/01/16 11/14/17 Sertraline HCl [Zoloft] 100 mg PO DAILY 11/01/16 11/14/17 Testosterone Cypionate 100 mg IM Q14D 11/01/16 11/14/17 [Depo-Testosterone] Carvedilol [Coreg] 12.5 mg PO BID #45 tablet 11/03/16 11/14/17 Atorvastatin [Lipitor] 10 mg PO QPM tablet 11/14/17 Bupropion HCl [Bupropion HCl] 37.5 mg PO BID 11/14/17 Clopidogrel [Plavix] 75 mg PO DAILY tablet 11/14/17 Furosemide [Lasix] 40 mg PO DAILY tablet 11/14/17 Insulin Aspart [NovoLOG] 1 - 9 unit SUBQ 11/14/17 0800,1200,1700,2100 pen Insulin Glargine [Lantus Solostar] 30 unit SUBQ BID pen 11/14/17 Insulin Glargine [Lantus Solostar] 42 units SUBQ DAILY 11/14/17 11/14/17 Ketorolac 0.45% Ophth Drops 1 drops LEFTEYE QID bottle 11/14/17 [Acuvail] Lisinopril [Zestril] 10 mg PO DAILY tablet 11/14/17 Metformin HCl [Metformin HCl ER] 2,000 mg PO DAILY 11/14/17 11/14/17 Pantoprazole [Protonix] 40 mg PO QDAC tablet 11/14/17 Polyethylene Glycol 3350 [Miralax] 17 gm PO DAILY packet 11/14/17 Sertraline [Zoloft] 200 mg PO DAILY tablet 11/14/17 prednisoLONE 1% OPHTH DROPS [Pred 1 drops LEFTEYE QID bottle 11/14/17 Forte 1% Ophth Drops] - Allergies Allergies/Adverse Reactions: Allergies Allergy/AdvReac Type Severity Reaction Status Date / Time shellfish derived Allergy Unknown Verified 11/13/17 17:37 - Social History Does the pt smoke?: No Smoking Status: Never smoker Does the pt drink ETOH?: Yes Does the pt have substance abuse?: No - Immunizations Immunizations are current?: Yes - POLST Patient has POLST: No POLST Status: Full Code PD ED PE NORMAL - Vitals Vital signs reviewed: Yes - General General: Alert and oriented X 3, No acute distress, Well developed/nourished - HEENT HEENT: Moist mucous membranes PD ED PE EXPANDED - HEENT HEENT: Other (large left nare clot removed with forceps and quispe-tip suction; this revealed a punctate area of active bleeding, left anterior nasal septum) Results - Vitals Vitals: Vital Signs - 24 hr 03/04/18 03/04/18 20:02 21:57 Temperature 36.4 C L Heart Rate 88 88 Respiratory 20 18 Rate Blood Pressure 142/65 H 138/66 H O2 Saturation 97 98 Oxygen O2 Source [With Activity] Room air O2 Source [Without Activity] Room air O2 Source Room air Procedures - Epistaxis Site: Left Preparation: Clots removed, Afrin, Lidocaine, Clamp / pressure applied Treatment: Silver Nitrate, Anterior rhinorocket, Other (initial application of silver nitrate transiently stopped the bleeding, but it quickly recurred before I left the bedside. Silver nitrate reapplied three more times without hemostasis (mild increase noted with each application subsequent to the initial application). Anterior packing (4.5 cm rhinorocket) then inserted and this resulted in hemostasis (no bleeding noted during 45 minute observation after this was inserted)) Other: Observed - no bleeding, Pt tolerated well PD MEDICAL DECISION MAKING - ED course Complexity details: re-evaluated patient, considered differential, d/w patient - Sepsis Event Vital Signs: Vital Signs - 24 hr 03/04/18 03/04/18 20:02 21:57 Temperature 36.4 C L Heart Rate 88 88 Respiratory 20 18 Rate Blood Pressure 142/65 H 138/66 H O2 Saturation 97 98 Oxygen O2 Source [With Activity] Room air O2 Source [Without Activity] Room air O2 Source Room air Departure - Departure Disposition: 01 Home, Self Care Clinical Impression: Epistaxis Condition: Good Instructions: ED Nosebleed, ED Nasal Packing Anterior Removable Follow-Up: Niru Chandler ARNP [Primary Care Provider] - Comments: Follow up with your primary care provider in 3-4 days for removal of the packing. Discharge Date/Time: 03/04/18 21:57
[2018-03-04] MEDS ORDERED: LIDOCAINE VISCOUS 2% 15 ML UDC MM STA (20:36)
[2018-03-04] MEDS ORDERED: OXYMETAZOLINE NASAL SPRAY NAS STA (20:36)
[2018-03-04 21:58] VITALS: BP 138/66
== END 2018-03-04 21:57 | disposition home or self-care (01) ==
LOC: ED 19:55
DX: R04.0 Epistaxis (principal); I11.0 Hypertensive heart disease with heart failure; I50.9 Heart failure, unspecified; I25.810 Atherosclerosis of coronary artery bypass graft(s) without angina pectoris; I25.2 Old myocardial infarction; E11.9 Type 2 diabetes mellitus without complications; Z79.4 Long term (current) use of insulin
CPT/HCPCS: 30901; 99283; A9270

== ENCOUNTER 2019-11-14 19:11 | Outpatient (CLI) | payer MEDICARE, OTHER | END 2019-11-14 19:12 | disposition short-term general hospital (02) | LOC: EMS 19:11 | PROVIDERS: ATTEND Surgery | DX: R41.0 Disorientation, unspecified (principal); R46.89 Other symptoms and signs involving appearance and behavior | CPT/HCPCS: A0425; A0429 ==

== ENCOUNTER 2020-03-02 11:40 | Outpatient (CLI) | payer MEDICARE, OTHER | END 2020-03-02 23:59 | disposition short-term general hospital (02) | LOC: EMS 11:40 | PROVIDERS: ATTEND Surgery | DX: R07.89 Other chest pain (principal); R10.30 Lower abdominal pain, unspecified; R14.0 Abdominal distension (gaseous) | CPT/HCPCS: A0425; A0427 ==

== ENCOUNTER 2020-03-15 09:28 | Outpatient (CLI) | payer MEDICARE, OTHER ==
[2020-03-15 12:07] LABS: ALBUMIN 3.2 g/dL (3.2-5.5); ALBUMIN/GLOBULIN RATIO 0.7 (1.0-2.2); CALCIUM 9.1 mg/dL (8.5-10.3); CREATININE 1.2 mg/dL (0.6-1.2)
== END 2020-03-15 23:59 | disposition home or self-care (01) ==
LOC: LAB.WCP 09:28
PROVIDERS: ATTEND Family Medicine
DX: R74.8 Abnormal levels of other serum enzymes (principal)
CPT/HCPCS: 36415; 80053

== ENCOUNTER 2020-05-09 12:14 | Outpatient (CLI) | payer MEDICARE, OTHER ==
--- NOTE | 2020-05-09 14:27 | CT Report ---
PROCEDURE: CHEST WO INDICATIONS: LUNG MASS TECHNIQUE: Noncontrast 5 mm thick sections acquired from the pulmonary apices to the posterior costophrenic angl es. 7 mm thick coronal and sagittal MIP reformats were then acquired. For radiation dose reduction, the following was used: automated exposure control, adjustment of mA and/or kV according to patient size. COMPARISON: CT abdomen and pelvis 11/13/2017. CXR 11/01/2016. FINDINGS: Image quality: Good. Lungs and pleura: No pulmonary mass seen. A few pulmonary nodules measuring 3 mm or less. For example left upper lobe juxta fissural, (4/110); left lower lobe, (4/150). It is possible for a small pulmon robert nodule to be obscured by the atelectasis in the right lower lobe. Right lower lobe compressive at electasis. Small to moderate sized right pleural effusion. No effusion on the left. No pneumothorax. Central and peripheral airways are patent and normal in caliber. Mediastinum: Post median sternotomy and CABG. Heart size is normal. No pericardial effusion. Right subcarinal lymph node measuring 2.8 x 1.1 cm, (3/33). Small paratracheal nodes. Thoracic aorta and ce ntral pulmonary arteries are normal in size. Esophagus is normal in caliber. No hiatal hernia. Bones and chest wall: No suspicious bony lesions. Moderate degenerative change. No vertebral body c ompression fractures. No axillary or supraclavicular adenopathy by size criteria. Thyroid is unrema rkable. Abdomen: Small hypodensity in the inferior right lobe of the liver, (9/19), more conspicuous compared to the prior CT from 2018. This may represent a small hemangioma. Tiny nodule adjacent to the inferi or margin of the right lobe of the liver are unchanged since 2018 suggesting a benign etiology. Post cholecystectomy. No adrenal nodule. IMPRESSION: 1. No pulmonary mass identified. A few pulmonary nodules measuring 3 mm or less. 2. Small to moderate-sized right unilateral pleural effusion. 3. Post CABG. 4. Small hypodense focus in the inferior right lobe liver is more conspicuous compared to the prior C T with IV contrast. This may represent a small hemangioma but is incompletely characterized on this n oncontrast examination. -If clinically indicated [address] or MRI could be performed for further characterization. Reviewed by: Abel Maurer MD on 05/09/2020 2:26 PM PST Approved by: Abel Maurer MD on 05/09/2020 2:26 PM PST Station ID: [id number]
== END 2020-05-09 12:15 | disposition home or self-care (01) ==
LOC: DI 12:14
PROVIDERS: ATTEND Family Medicine
DX: R91.8 Other nonspecific abnormal finding of lung field (principal); J90 Pleural effusion, not elsewhere classified; R93.2 Abnormal findings on diagnostic imaging of liver and biliary tract; Z95.1 Presence of aortocoronary bypass graft
CPT/HCPCS: 71250

== ENCOUNTER 2020-05-22 09:20 | Outpatient (CLI) | payer MEDICARE, OTHER ==
[2020-05-22 12:09] LABS: CALCIUM 9.7 mg/dL (8.5-10.3); CREATININE 1.1 mg/dL (0.6-1.2)
== END 2020-05-22 09:21 | disposition home or self-care (01) ==
LOC: LAB.N 09:20
PROVIDERS: ATTEND Physician Assistant
DX: R74.8 Abnormal levels of other serum enzymes (principal); I35.0 Nonrheumatic aortic (valve) stenosis
CPT/HCPCS: 36415; 80048

== ENCOUNTER 2020-12-07 10:54 | Outpatient (CLI) | payer MEDICARE, OTHER ==
--- NOTE | 2020-12-07 13:33 | XRAY Report ---
PROCEDURE: Chest 2 View X-Ray INDICATIONS: PLEURAL EFFUSION TECHNIQUE: 2 view(s) of the chest. COMPARISON: None. FINDINGS: Surgical changes and devices: Sternotomy wires and CABG clips. Status post TAPVR. Lungs and pleura: No pneumothorax or blunting of the right costophrenic angle with small pleural effu fernie adjacent atelectasis. Diffuse scattered atelectasis/chronic interstitial changes. Mediastinum: Mediastinal contours are normal. Heart size is normal. Bones and chest wall: No suspicious bony abnormalities. Soft tissues appear unremarkable. IMPRESSION: Trace right pleural effusion with adjacent atelectasis. Diffuse scarring or atelectasis without focal consolidation. Reviewed by: Shay Holland MD on 12/07/2020 1:32 PM PDT Approved by: Shay Holland MD on 12/07/2020 1:32 PM PDT Station ID: [id number]
== END 2020-12-07 10:55 | disposition home or self-care (01) ==
LOC: DI.N 10:54
PROVIDERS: ATTEND Family Medicine
DX: J90 Pleural effusion, not elsewhere classified (principal); R06.01 Orthopnea; E11.51 Type 2 diabetes mellitus with diabetic peripheral angiopathy without gangrene; G25.81 Restless legs syndrome; I50.9 Heart failure, unspecified; G47.33 Obstructive sleep apnea (adult) (pediatric); I25.810 Atherosclerosis of coronary artery bypass graft(s) without angina pectoris
CPT/HCPCS: 36415; 80053; 80061; 82043; 82570; 83036; 83721; 83880; 84443; 85025

== ENCOUNTER 2020-12-07 10:58 | Outpatient (CLI) | payer MEDICARE, OTHER ==
[2020-12-07 17:48] LABS: BASOPHILS % (AUTO) 0.6 %; EOSINOPHILS # (AUTO) 0.1 10^3/uL (0.0-0.7); EOSINOPHILS % (AUTO) 2.8 %; HCT - HEMATOCRIT 39.5 % (42.0-52.0); HGB - HEMOGLOBIN 11.9 g/dL (14.0-18.0); LYMPHOCYTES # (AUTO) 1.1 10^3/uL (1.5-3.5); LYMPHOCYTES % (AUTO) 23.2 %; MEAN CORPUSCULAR HEMOGLOBIN 25.4 pg (27.0-31.0); MEAN CORPUSCULAR HGB CONC 30.1 g/dL (32.0-36.0); MEAN CORPUSCULAR VOLUME 84.2 fL (80.0-94.0); MEAN PLATELET VOLUME 9.1 fL (7.4-11.4); MONOCYTES # (AUTO) 0.4 10^3/uL (0.0-1.0); MONOCYTES % (AUTO) 7.1 %; NEUTROPHILS # (AUTO) 3.3 10^3/uL (1.5-6.6); NEUTROPHILS % (AUTO) 66.1 %; PLT - PLATELET COUNT 104 10^3/uL (130-450); RED BLOOD COUNT 4.69 10^6/uL (4.70-6.10); RED CELL DISTRIBUTION WIDTH 17.3 % (12.0-15.0); WHITE BLOOD COUNT 4.9 x10^3/uL (4.8-10.8)
[2020-12-07 18:02] LABS: CREATININE,URINE 140.4 mg/dL; MICROALBUM/CREATININE RATIO,UR 81.2 ug/mg (<30.0); MICROALBUMIN,URINE 11.4 mg/dL (0-300.0)
[2020-12-07 18:23] LABS: ALBUMIN 3.8 g/dL (3.2-5.5); ALKALINE PHOSPHATASE 65 IU/L (42-121); ALT ALANINE AMINOTRANSFERASE 10 IU/L (10-60); AST ASPARTATE AMINOTRANSFERASE 15 IU/L (10-42); BILIRUBIN,TOTAL 1.2 mg/dL (0.2-1.0); BUN - BLOOD UREA NITROGEN 27 mg/dL (6-20); CALCIUM 8.7 mg/dL (8.5-10.3); CARBON DIOXIDE - CO2 27 mmol/L (21-32); CHLORIDE 102 mmol/L (101-111); CHOL/HDL RATIO 3.3 (<5.0); CHOLESTEROL 104 mg/dL; CREATININE 1.4 mg/dL (0.6-1.2); GFR - MDRD 49 (>89); GLUCOSE 102 mg/dL (70-100); HDL CHOLESTEROL 32 mg/dL; LDL CHOLESTEROL,CALCULATED 41 mg/dL; LDL/HDL RATIO 1.3 (<3.6); SODIUM 136 mmol/L (135-145); TOTAL PROTEIN 7.5 g/dL (6.7-8.2); TRIGLYCERIDES 155 mg/dL; VLDL CHOLESTEROL 31 mg/dL
[2020-12-07 18:29] LABS: ESTIMATED AVERAGE GLUCOSE 209 mg/dL (70-100); HEMOGLOBIN A1c% 8.9 % (4.27-6.07)
== END 2020-12-07 10:59 | disposition home or self-care (01) ==
LOC: LAB.N 10:58
PROVIDERS: ATTEND Family Medicine
DX: R06.01 Orthopnea (principal); E11.51 Type 2 diabetes mellitus with diabetic peripheral angiopathy without gangrene; G25.81 Restless legs syndrome; I50.9 Heart failure, unspecified; G47.33 Obstructive sleep apnea (adult) (pediatric); I25.810 Atherosclerosis of coronary artery bypass graft(s) without angina pectoris
CPT/HCPCS: 36415; 80053; 80061; 82043; 82570; 83036; 83721; 83880; 84443; 85025

== ENCOUNTER 2021-01-03 18:32 | Outpatient (CLI) | payer MEDICARE, OTHER | END 2021-01-03 18:33 | disposition EMS.NT | LOC: EMS 18:32 | DX: R41.82 Altered mental status, unspecified (principal); R42 Dizziness and giddiness ==

== ENCOUNTER 2021-01-03 19:12 | Observation (INO) | payer MEDICARE, OTHER ==
--- NOTE | 2021-01-03 19:43 | ED Physician Documentation ---
PD HPI FOCAL NEURO - Stated complaint Stated Complaint: DEHYDRATION - Chief complaint Chief Complaint: Neuro - History obtained from History obtained from: Patient, Family () - Additional information Additional information: 75-year-old gentleman with history of coronary disease, A. fib on Xarelto, diabetes, and congestive heart failure has had a worsening deep cough for the last few days but became lethargic and hallucinating and altered over the last few hours. He is febrile here but was not aware of that. He had coronavirus in July 2019 and has been immunized since then. Most of the history is from the as the patient is slightly lethargic. Review of Systems Unable to obtain: Confused PD PAST MEDICAL HISTORY - Past Medical History Past Medical History: Yes Cardiovascular: Congestive heart failure, Hypertension, High cholesterol, Coronary artery disease, [place] Respiratory: None, CPAP use Endocrine/Autoimmune: Type 2 diabetes GI: None : None HEENT: None Psych: None Musculoskeletal: None Derm: None - Past Surgical History Past Surgical History: Yes General: Cholecystectomy, Appendectomy Cardiovascular: CABG, Coronary stent, Angioplasty - Present Medications Home Medications: Ambulatory Orders Medication Instructions Recorded Confirmed Cyanocobalamin (Vitamin B-12) 1,000 mcg PO DAILY 03/25/15 11/14/17 [B-12] Aspirin 81 tab PO DAILY 11/01/16 11/14/17 Atorvastatin Calcium 20 mg PO QPM 11/01/16 11/14/17 Cholecalciferol (Vitamin D3) 2,000 unit PO DAILY 11/01/16 11/14/17 [Vitamin D3] Lisinopril [Zestril] 10 mg PO DAILY 11/01/16 11/14/17 Omeprazole 40 mg PO QDAC 11/01/16 11/14/17 Sertraline HCl [Zoloft] 100 mg PO DAILY 11/01/16 11/14/17 Testosterone Cypionate 100 mg IM Q14D 11/01/16 11/14/17 [Depo-Testosterone] allopurinoL [Allopurinol] 200 mg PO DAILY 11/01/16 11/14/17 carvediloL [Coreg] 12.5 mg PO BID #45 tablet 11/03/16 11/14/17 Atorvastatin [Lipitor] 10 mg PO QPM tablet 11/14/17 Bupropion HCl [Bupropion HCl] 37.5 mg PO BID 11/14/17 Clopidogrel [Plavix] 75 mg PO DAILY tablet 11/14/17 Furosemide [Lasix] 40 mg PO DAILY tablet 11/14/17 Insulin Aspart [NovoLOG] 1 - 9 unit SUBQ 11/14/17 0800,1200,1700,2100 pen Insulin Glargine [Lantus Solostar] 30 unit SUBQ BID pen 11/14/17 Insulin Glargine [Lantus Solostar] 42 units SUBQ DAILY 11/14/17 11/14/17 Ketorolac 0.45% Ophth Drops 1 drops LEFTEYE QID bottle 11/14/17 [Acuvail] Metformin HCl [Metformin ER 2,000 mg PO DAILY 11/14/17 11/14/17 Osmotic] Pantoprazole [Protonix] 40 mg PO QDAC tablet 11/14/17 Sertraline [Zoloft] 200 mg PO DAILY tablet 11/14/17 lisinopriL [Zestril] 10 mg PO DAILY tablet 11/14/17 polyethylene glycoL 3350 [Miralax] 17 gm PO DAILY packet 11/14/17 prednisoLONE 1% OPHTH DROPS [Pred 1 drops LEFTEYE QID bottle 11/14/17 Forte 1% Ophth Drops] - Allergies Allergies/Adverse Reactions: Allergies Allergy/AdvReac Type Severity Reaction Status Date / Time shellfish derived Allergy Unknown Verified 11/13/17 17:37 - Social History Does the pt smoke?: No Smoking Status: Never smoker Does the pt drink ETOH?: Yes Does the pt have substance abuse?: No - Immunizations Immunizations are current?: Yes - POLST Patient has POLST: No POLST Status: Full Code PD ED PE NORMAL - Vitals Vital signs reviewed: Yes - General General: No acute distress, Well developed/nourished, Other (He is alert and oriented to person and place but a poor historian for events. He appears modestly ill.) - HEENT HEENT: PERRL, EOMI - Neck Neck: Supple, no meningeal sign, No bony TTP - Cardiac Cardiac: Other (Tachycardic but regular without murmur) - Respiratory Respiratory: No respiratory distress, Other (Diminished at the right base) - Abdomen Abdomen: Non tender - Back Back: No CVA TTP, No spinal TTP - Derm Derm: Normal color, Warm and dry - Extremities Extremities: No edema, No calf tenderness / cord - Neuro Neuro: warp hand 2-12 intact Eye Opening: To Voice Motor: Obeys Commands Verbal: Confused GCS Score: 13 Results - Vitals Vitals: Vital Signs - 24 hr 01/03/21 01/03/21 01/03/21 19:17 19:28 19:34 Temperature 37.5 C 38.3 C H 38.3 C H Heart Rate 110 H 114 H Respiratory 36 H 26 H Rate Blood Pressure 142/65 H 159/81 H O2 Saturation 97 96 01/03/21 01/03/21 01/03/21 19:50 19:53 20:20 Temperature 37.2 C Heart Rate 112 H 110 H 112 H Respiratory 14 24 Rate Blood Pressure 159/81 H 156/80 H 135/80 H O2 Saturation 100 98 94 01/03/21 01/03/21 01/03/21 20:23 20:30 21:00 Temperature 37.3 C Heart Rate 110 H 109 H 116 H Respiratory 24 18 Rate Blood Pressure 149/82 H 149/82 H 139/77 H O2 Saturation 95 99 94 Oxygen O2 Source [With Activity] Room air O2 Source [Without Activity] Room air O2 Source Room air - Labs Labs: Laboratory Tests 01/03/21 01/03/21 01/03/21 19:30 19:30 19:45 WBC 8.0 RBC 4.42 L Hgb 11.3 L Hct 36.9 L MCV 83.5 MCH 25.6 L MCHC 30.6 L RDW 16.2 H Plt Count 99 L MPV 8.7 Neut # (Auto) 6.3 Lymph # (Auto) 0.8 L [place] # (Auto) 0.8 Eos # (Auto) 0.1 Baso # (Auto) 0.0 Absolute Nucleated RBC 0.00 Nucleated RBC % 0.0 Sodium 132 L Potassium 5.7 H Chloride 100 L Carbon Dioxide 24 Anion Gap 8.0 BUN 32 H Creatinine 1.6 H Estimated GFR (MDRD) 42 L Glucose 158 H Lactic Acid Calcium 8.5 Total Bilirubin 1.6 H AST 19 ALT 13 Alkaline Phosphatase 68 Total Protein 7.8 Albumin 4.1 Globulin 3.7 Albumin/Globulin Ratio 1.1 Lipase 18 L Urine Color Urine Clarity Urine pH Ur Specific [place] Urine Protein Urine Glucose (UA) Urine Ketones Urine Occult Blood Urine Nitrite Urine Bilirubin Urine Urobilinogen Ur Leukocyte Esterase Ur Microscopic Review Urine Culture Comments Nasal Adenovirus (PCR) NOT DETECTED Nasal B. parapertussis DNA (PCR) NOT DETECTED Nasal Coronavir 229E PCR NOT DETECTED Nasal Coronavir HKU1 PCR NOT DETECTED Nasal Coronavir NL63 PCR NOT DETECTED Nasal Coronavir OC43 PCR NOT DETECTED Nasal Enterovir/Rhinovir PCR NOT DETECTED Nasal Influenza B PCR NOT DETECTED Nasal Influenza A PCR NOT DETECTED Nasal Parainfluen 1 PCR NOT DETECTED Nasal Parainfluen 2 PCR NOT DETECTED Nasal Parainfluen 3 PCR NOT DETECTED Nasal Parainfluen 4 PCR NOT DETECTED Nasal RSV (PCR) NOT DETECTED Nasal B.pertussis DNA PCR NOT DETECTED Nasal C.pneumoniae (PCR) NOT DETECTED Alex Human Metapneumo PCR NOT DETECTED Nasal M.pneumoniae (PCR) NOT DETECTED Nasal SARS-CoV-2 (PCR) NOT DETECTED 01/03/21 01/03/21 19:53 21:06 WBC RBC Hgb Hct MCV MCH MCHC RDW Plt Count MPV Neut # (Auto) Lymph # (Auto) [place] # (Auto) Eos # (Auto) Baso # (Auto) Absolute Nucleated RBC Nucleated RBC % Sodium Potassium Chloride Carbon Dioxide Anion Gap BUN Creatinine Estimated GFR (MDRD) Glucose Lactic Acid 1.3 Calcium Total Bilirubin AST ALT Alkaline Phosphatase Total Protein Albumin Globulin Albumin/Globulin Ratio Lipase Urine Color YELLOW Urine Clarity CLEAR Urine pH 5.0 Ur Specific [place] 1.025 Urine Protein TRACE Urine Glucose (UA) NEGATIVE Urine Ketones NEGATIVE Urine Occult Blood TRACE-INTA Urine Nitrite NEGATIVE Urine Bilirubin NEGATIVE Urine Urobilinogen 0.2 (NORMAL) Ur Leukocyte Esterase NEGATIVE Ur Microscopic Review NOT INDICATED Urine Culture Comments NOT INDICATED Nasal Adenovirus (PCR) Nasal B. parapertussis DNA (PCR) Nasal Coronavir 229E PCR Nasal Coronavir HKU1 PCR Nasal Coronavir NL63 PCR Nasal Coronavir OC43 PCR Nasal Enterovir/Rhinovir PCR Nasal Influenza B PCR Nasal Influenza A PCR Nasal Parainfluen 1 PCR Nasal Parainfluen 2 PCR Nasal Parainfluen 3 PCR Nasal Parainfluen 4 PCR Nasal RSV (PCR) Nasal B.pertussis DNA PCR Nasal C.pneumoniae (PCR) Alex Human Metapneumo PCR Nasal M.pneumoniae (PCR) Nasal SARS-CoV-2 (PCR) PD MEDICAL DECISION MAKING - ED course ED course: 75-year-old gentleman with multiple comorbidities has been coughing for a few days and now presents acutely encephalopathic this afternoon with hallucinations and altered mental status. Work-up here is generally benign, his white count is 8, his hemoglobin is stable from prior. He is modestly dehydrated with a BUN of 32 and a creatinine of 1.6, but he has had worse numbers in the past. His potassium is 5.7. His lactate is normal. Urine without evidence of infection. Bio fire respiratory PCR without Covid or other etiology. Chest x-ray showing potentially a viral pattern versus less likely CHF. His encephalopathy certainly improved with the administration of IV fluids. Given his comorbidities, fever, tachycardia, tachypnea will place in observation and Dr. Brownlee accepts at 9:24 PM. Departure - Departure Disposition: ED Place in Observation Clinical Impression: Encephalopathy acute T2DM (type 2 diabetes mellitus) Qualifiers: Diabetes mellitus penitentiary insulin use: unspecified terminal press operator insulin use status Diabetes mellitus complication status: with hyperglycemia Qualified Code(s): E11.65 - Type 2 diabetes mellitus with hyperglycemia Fever Qualifiers: Fever type: due to other condition Qualified Code(s): R50.81 - Fever presenting with conditions classified elsewhere Condition: Fair
[2021-01-03 19:46] LABS: BASOPHILS % (AUTO) 0.4 %; EOSINOPHILS # (AUTO) 0.1 10^3/uL (0.0-0.7); EOSINOPHILS % (AUTO) 1.6 %; HCT - HEMATOCRIT 36.9 % (42.0-52.0); HGB - HEMOGLOBIN 11.3 g/dL (14.0-18.0); LYMPHOCYTES # (AUTO) 0.8 10^3/uL (1.5-3.5); LYMPHOCYTES % (AUTO) 10.1 %; MEAN CORPUSCULAR HEMOGLOBIN 25.6 pg (27.0-31.0); MEAN CORPUSCULAR HGB CONC 30.6 g/dL (32.0-36.0); MEAN CORPUSCULAR VOLUME 83.5 fL (80.0-94.0); MEAN PLATELET VOLUME 8.7 fL (7.4-11.4); MONOCYTES # (AUTO) 0.8 10^3/uL (0.0-1.0); MONOCYTES % (AUTO) 9.5 %; NEUTROPHILS # (AUTO) 6.3 10^3/uL (1.5-6.6); PLT - PLATELET COUNT 99 10^3/uL (130-450); RED BLOOD COUNT 4.42 10^6/uL (4.70-6.10); RED CELL DISTRIBUTION WIDTH 16.2 % (12.0-15.0)
[2021-01-03] MEDS ORDERED: SODIUM CHLORIDE 0.9% 1,000 ML IV STA ×2 (19:47→20:16)
[2021-01-03 19:59] LABS: ALBUMIN 4.1 g/dL (3.2-5.5); ALBUMIN/GLOBULIN RATIO 1.1 (1.0-2.2); BILIRUBIN,TOTAL 1.6 mg/dL (0.2-1.0); CALCIUM 8.5 mg/dL (8.5-10.3); CREATININE 1.6 mg/dL (0.6-1.2); POTASSIUM 5.7 mmol/L (3.5-5.0); TOTAL PROTEIN 7.8 g/dL (6.7-8.2)
--- NOTE | 2021-01-03 20:28 | XRAY Report ---
PROCEDURE: Chest 1 View X-Ray INDICATIONS: cough, febrile TECHNIQUE: One view of the chest was acquired. COMPARISON: 12/07/2020 FINDINGS: Surgical changes and devices: Post CABG and median sternotomy.. Lungs and pleura: There is development of diffuse thickening of the interstitial markings particularl y in the lower lung zones. No dense consolidation. The right costophrenic sulcus is off the inferior portion of the film. No left pleural effusion Mediastinum: Mediastinal contours appear normal. Heart size is normal. Bones and chest wall: No suspicious bony lesions. Overlying soft tissues appear unremarkable. IMPRESSION: 1. Findings suggestive of viral pneumonitis, new since the prior study. CHF, some of this pattern alt aracelis there is no significant central venous congestion. Reviewed by: Brittny Moran MD on 01/03/2021 8:27 PM PDT Approved by: Brittny Moran MD on 01/03/2021 8:27 PM PDT Station ID: [id number]
[2021-01-03 20:42] LABS: B. PARAPERTUSSIS- RESP PCR PAN NOT DETECTED; B. PERTUSSIS- RESP PCR PANEL NOT DETECTED; C. PNEUMONIAE- RESP PCR PANEL NOT DETECTED; CORONAVIRUS 229E-RESP PCR NOT DETECTED; CORONAVIRUS HKU1-RESP PCR NOT DETECTED; CORONAVIRUS NL63-RESP PCR NOT DETECTED; CORONAVIRUS OC43-RESP PCR NOT DETECTED; HUMAN METAPNEUMOVIRUS NOT DETECTED; INFLUENZA A- RESP PCR PANEL NOT DETECTED; INFLUENZA B - RESP PCR PANEL NOT DETECTED; M. PNEUMONIAE- RESP PCR PANEL NOT DETECTED; PARAINFLUENZA VIRUS 1 NOT DETECTED; PARAINFLUENZA VIRUS 2 NOT DETECTED; PARAINFLUENZA VIRUS 3 NOT DETECTED; PARAINFLUENZA VIRUS 4 NOT DETECTED; RHINOVIRUS/ENTEROVIRUS NOT DETECTED; RSV- RESP PCR PANEL NOT DETECTED; SARS-CoV-2 -RESP PCR PANEL NOT DETECTED
[2021-01-03 21:12] LABS: BILIRUBIN,URINE NEGATIVE (NEGATIVE); CLARITY,URINE CLEAR (CLEAR); GLUCOSE, URINE (UA) NEGATIVE (NEGATIVE); KETONES,URINE (UA) NEGATIVE (NEGATIVE); LEUKOCYTE ESTERASE, URINE NEGATIVE (NEGATIVE); NITRITE,URINE NEGATIVE (NEGATIVE); OCCULT BLOOD,URINE TRACE-INTA (NEGATIVE); PROTEIN,URINE TRACE mg/dL (NEGATIVE); UROBILINOGEN,URINE 0.2 (NORMAL) E.U./dL (NORMAL)
[2021-01-03] MEDS ORDERED: SODIUM CHLORIDE FLUSH 0.9% 10 ML SYRINGE IVP PRN (21:33)
[2021-01-03] MEDS ORDERED: ONDANSETRON 4 MG/2 ML VIAL IVP PRN (21:33)
[2021-01-03] MEDS ORDERED: ACETAMINOPHEN 325 MG TABLET PO PRN (21:33)
--- NOTE | 2021-01-03 21:44 | HISTORY & PHYSICAL EXAMINATION ---
Chief Complaint - Chief Complaint Chief Complaint: Confusion History of Present Illness - Admitted From Admitted From:: ED - History Obtained From History obtained from: ED provider, chart records and the pt - History of Present Illness HPI Comment/Other: This is a 75-year-old white male with a history of NV at the age of 40, had coronary artery stenting and CABG, history of diabetes mellitus, CHF, A. fib on DOAC, sleep apnea on CPAP (currently not using). Patient has had 4 prior admissions here all presenting with confusion: In March 2015 and Jun 2014, he had confusion related to dehydration with ROSCOE, in October 2016 he had confusion due to sepsis from pneumonia, in November 2017 he had confusion probably from dehydration. The patient has had a wet cough for 2 days and today became lethargic and was speaking gibberish and hallucinating this afternoon. He was brought to the emergency room and the gave most of the history there. This patient was infected with coronavirus in July 2019 and also has been immunized for Covid since then. The patient had a fever in the emergency room and labs show negative Covid test, negative influenza test, creatinine 1.6, potassium 5.7, Lactic acid level normal, and chest x-ray showed diffuse interstitial thickening , read as possible viral pneumonitis. Patient has received 2 L of fluids in the ED and has become more alert and much less confused. Blood cultures have been taken but no empiric antibiotics have yet been started. He is able to give answers appropriately now. He states he is compliant with his meds but not with his CPAP machine. He once needed a thoracentesis when he had such a cough, he describes. The patient is being placed in Observation to continue to rehydrate him carefully due to Hx of CHF, and to start antibiotics for atypical pneumonia and to monitor improvement of his altered mental status. We discussed CODE STATUS and he wishes to be a DNR. History - Past Medical History Cardiovascular: reports: Congestive heart failure, Hypertension, High cholesterol, Coronary artery disease, [place], Atrial fibrillation Respiratory: reports: None, CPAP use Neuro: reports: Other (Four previous ED presentations with confusion when he was dehydrated, once with pneumonia) Endocrine/Autoimmune: reports: Type 2 diabetes GI: reports: None : reports: None HEENT: reports: None Psych: reports: None Musculoskeletal: reports: None Derm: reports: None MRSA Hx?: No - Past Surgical History General: reports: Cholecystectomy, Appendectomy Cardiovascular: reports: CABG, Coronary stent, Angioplasty - Family & Social History Family History Comment/Other: The patient was adopted and does not know his family history. Living arrangement: At home Living Situation: With spouse/s.o. Social History Notes: The patient quit smoking cigarettes at the age of 40 with his first NV. He has no illicit drug use history. He drinks alcohol occaisionally. He lives with his . - Substance History Use: Uses substance without health or social issues: Alcohol - POLST Patient has POLST: No POLST Status: Full Code Meds/Allgy - Home Medications Home Medications: Ambulatory Orders Medication Instructions Recorded Confirmed Cyanocobalamin (Vitamin B-12) 1,000 mcg PO DAILY 03/25/15 11/14/17 [B-12] Aspirin 81 tab PO DAILY 11/01/16 11/14/17 Atorvastatin Calcium 20 mg PO QPM 11/01/16 11/14/17 Cholecalciferol (Vitamin D3) 2,000 unit PO DAILY 11/01/16 11/14/17 [Vitamin D3] Lisinopril [Zestril] 10 mg PO DAILY 11/01/16 11/14/17 Omeprazole 40 mg PO QDAC 11/01/16 11/14/17 Sertraline HCl [Zoloft] 100 mg PO DAILY 11/01/16 11/14/17 Testosterone Cypionate 100 mg IM Q14D 11/01/16 11/14/17 [Depo-Testosterone] allopurinoL [Allopurinol] 200 mg PO DAILY 11/01/16 11/14/17 carvediloL [Coreg] 12.5 mg PO BID #45 tablet 11/03/16 11/14/17 Atorvastatin [Lipitor] 10 mg PO QPM tablet 11/14/17 Bupropion HCl [Bupropion HCl] 37.5 mg PO BID 11/14/17 Clopidogrel [Plavix] 75 mg PO DAILY tablet 11/14/17 Furosemide [Lasix] 40 mg PO DAILY tablet 11/14/17 Insulin Aspart [NovoLOG] 1 - 9 unit SUBQ 11/14/17 0800,1200,1700,2100 pen Insulin Glargine [Lantus Solostar] 30 unit SUBQ BID pen 11/14/17 Insulin Glargine [Lantus Solostar] 42 units SUBQ DAILY 11/14/17 11/14/17 Ketorolac 0.45% Ophth Drops 1 drops LEFTEYE QID bottle 11/14/17 [Acuvail] Metformin HCl [Metformin ER 2,000 mg PO DAILY 11/14/17 11/14/17 Osmotic] Pantoprazole [Protonix] 40 mg PO QDAC tablet 11/14/17 Sertraline [Zoloft] 200 mg PO DAILY tablet 11/14/17 lisinopriL [Zestril] 10 mg PO DAILY tablet 11/14/17 polyethylene glycoL 3350 [Miralax] 17 gm PO DAILY packet 11/14/17 prednisoLONE 1% OPHTH DROPS [Pred 1 drops LEFTEYE QID bottle 11/14/17 Forte 1% Ophth Drops] - Allergies Allergies/Adverse Reactions: Allergies Allergy/AdvReac Type Severity Reaction Status Date / Time shellfish derived Allergy Unknown Verified 11/13/17 17:37 Review of Systems - Constitutional Constitutional: reports: Weakness - Respiratory Respiratory: reports: Cough - Musculoskeletal Musculoskeletal: reports: Other (L leg pain "after a clip left behind by cardiac surgeon") - Neurological Neurological: reports: Other (Sleepiness) - All Other Systems All Other Systems: reports: Reviewed and negative Exam - Vital Signs Reviewed Vital Signs: Yes Vital Signs: Vital Signs x48h Temp Pulse Resp BP Pulse Ox 01/03/21 21:00 37.3 C 116 H 18 139/77 H 94 01/03/21 20:30 109 H 24 149/82 H 99 01/03/21 20:23 110 H 149/82 H 95 01/03/21 20:20 112 H 24 135/80 H 94 01/03/21 19:53 37.2 C 110 H 156/80 H 98 01/03/21 19:50 112 H 14 159/81 H 100 01/03/21 19:34 38.3 C H 114 H 26 H 159/81 H 96 01/03/21 19:28 38.3 C H 01/03/21 19:17 37.5 C 110 H 36 H 142/65 H 97 - Physical Exam General Appearance: positive: No acute distress, Alert, Other (Obese) Eyes Bilateral: positive: Normal inspection, EOMI ENT: positive: ENT inspection nml, Dry mucous membranes, Other (Hoarseness of voice) Neck: positive: Nml inspection, No JVD Respiratory: positive: No respiratory distress, Breath sounds nml Cardiovascular: positive: No murmur (Distant heart sounds due to obesity) Abdomen: positive: Non-tender (Onbese wioth a pannus), Nml bowel sounds Skin: positive: Warm, Dry Extremities: positive: Other (1+ edema to mid thighs) Neurologic/Psychiatric: positive: Oriented x3 (Non-focal, no jibberish or conway llucinations) Conclusion/Plan - Problem List (1) Altered mental status Conclusion/Plan: This is his fifth presentation with confusion when he is dehydrated. We will give IV fluids carefully at 60 - 80 cc an hour since he has already returned to his baseline mental status and because of the history of CHF. Qualifiers: Altered mental status type: unspecified Qualified Code(s): R41.82 - Altered mental status, unspecified (2) Atypical pneumonia Conclusion/Plan: He has had 2 days of a wet cough, is febrile today and may have been at home (the was not aware) and has infiltrates on chest x-ray. We will order sputum for culture. We will begin empiric Zithromax to cover atypical pneumonia, iv then po dosing planned. (3) Acute renal failure Conclusion/Plan: This is likely from dehydration. Continue with gentle IV rehydration. Hold any diuretics for 24 hours Avoid nephrotoxins. Follow BMP daily Qualifiers: Acute renal failure type: unspecified Qualified Code(s): N17.9 - Acute kidney failure, unspecified (4) Hyperkalemia Conclusion/Plan: IV fluids will contain no potassium. Follow BMP daily. Telemetry ordered (5) T2DM (type 2 diabetes mellitus) Conclusion/Plan: Will order a carb controlled diet, fingerstick glucose checks, hypoglycemia protocol, sliding scale insulin coverage. We will await for his medication list to be reconciled regarding his long-acting insulin doses. Order A1c with morning labs Qualifiers: Diabetes mellitus manager terminal insulin use: unspecified manager terminal insulin use status Diabetes mellitus complication status: with hyperglycemia Qualified Code(s): E11.65 - Type 2 diabetes mellitus with hyperglycemia (6) Hyponatremia Conclusion/Plan: This is hypovolemic hyponatremia or might be pseudohyponatremia from a mildly elevated glucose. IV fluids will be with normal saline. Follow BMP daily (7) Anemia Conclusion/Plan: Being dehydrated, he is not hemoconcentrated which is a concern. We will obtain a stool guaiac test and also check B12 and folate levels and iron stores and replace if low Follow Hgb daily (8) History of atrial fibrillation Conclusion/Plan: No EKG was done in the ED since heart rate is controlled and there is no suspicion of ACS. Will order telemetry while he is in observation to monitor rate control. Will order his A. fib meds when they are reconciled. (9) Hx of coronary artery disease Conclusion/Plan: Is statin and daily aspirin and other home meds when they are reconciled (10) Morbid obesity with BMI of 40.0-44.9, adult Conclusion/Plan: As per Hx (11) ROBBI (obstructive sleep apnea) Conclusion/Plan: He admittedly does not use his CPAP anymore for the last year or so - Lab Results Fish Bones: 01/03/21 19:30 01/03/21 19:30
[2021-01-03] MEDS ORDERED: DEXTROSE 5%-0.9% NACL 1,000 ML IV SCH ×2 (22:00→22:54)
[2021-01-04] MEDS: SODIUM CHLORIDE FLUSH 0.9% 10 ML SYRINGE IVP SCH ×2 (01:16→08:07)
[2021-01-04 05:29] LABS: BASOPHILS % (AUTO) 0.4 %; EOSINOPHILS # (AUTO) 0.2 10^3/uL (0.0-0.7); EOSINOPHILS % (AUTO) 1.8 %; HCT - HEMATOCRIT 34.2 % (42.0-52.0); HGB - HEMOGLOBIN 10.1 g/dL (14.0-18.0); LYMPHOCYTES # (AUTO) 1.2 10^3/uL (1.5-3.5); LYMPHOCYTES % (AUTO) 12.9 %; MEAN CORPUSCULAR HEMOGLOBIN 24.7 pg (27.0-31.0); MEAN CORPUSCULAR HGB CONC 29.5 g/dL (32.0-36.0); MEAN CORPUSCULAR VOLUME 83.6 fL (80.0-94.0); MEAN PLATELET VOLUME 9.6 fL (7.4-11.4); MONOCYTES # (AUTO) 0.8 10^3/uL (0.0-1.0); MONOCYTES % (AUTO) 9.1 %; NEUTROPHILS % (AUTO) 75.5 %; NRBC ABSOLUTE COUNT (AUTO) 0.02 x10^3/uL; NUCLEATED RED BLOOD CELLS AUTO 0.2 /100WBC; PLT - PLATELET COUNT 95 10^3/uL (130-450); RED BLOOD COUNT 4.09 10^6/uL (4.70-6.10); RED CELL DISTRIBUTION WIDTH 16.3 % (12.0-15.0); WHITE BLOOD COUNT 9.2 x10^3/uL (4.8-10.8)
[2021-01-04 05:44] LABS: CALCIUM 8.1 mg/dL (8.5-10.3); CREATININE 1.2 mg/dL (0.6-1.2); POTASSIUM 4.6 mmol/L (3.5-5.0)
[2021-01-04] MEDS: AZITHROMYCIN INJ 500 MG in SODIUM CHLORIDE 0.9% 250 ML IV SCH ×2 (06:00)
[2021-01-04 06:06] LABS: FOLATE 5.78 ng/mL (5.90 - >24.8)
[2021-01-04] MEDS ORDERED: FERROUS GLUCONATE 324 MG TABLET PO SCH (08:00)
[2021-01-04] MEDS: INSULIN ASPART 300 UNIT/3 ML PEN SUBQ SCH ×2 (08:06→11:29)
[2021-01-04] MEDS ORDERED: carvediloL 12.5 MG TABLET PO SCH (09:00)
[2021-01-04] MEDS ORDERED: FOLIC ACID 1 MG TABLET PO SCH (09:00)
[2021-01-04] MEDS ORDERED: ENOXAPARIN 40 MG/0.4 ML SYRINGE SUBQ SCH (09:00)
[2021-01-04] MEDS ORDERED: guaiFENesin 600 MG TABLET PO SCH (09:00)
[2021-01-04] MEDS ORDERED: ASPIRIN EC 81 MG TABLET PO SCH (09:00)
[2021-01-04 11:29] VITALS: BP 138/72
[2021-01-04 11:48] LABS: ESTIMATED AVERAGE GLUCOSE 189 mg/dL (70-100); HEMOGLOBIN A1c% 8.2 % (4.27-6.07)
--- NOTE | 2021-01-04 12:25 | Discharge Plan ---
Discharge Plan Problem Reviewed?: Yes Disposition: Home, Self Care Condition: Fair Prescriptions: Ferrous Gluconate [Fergon] 324 mg PO DAILYWM #30 tablet Folic Acid 1 mg PO DAILY #30 tablet Azithromycin [Zithromax] 250 mg PO DAILY #4 tablet Diet: Diabetic Activity Restrictions: Activity as Tolerated Shower Restrictions: No (fall precaution) Instruction Topics: Dehydration, Pneumonia, Pneumonia Prevent, Azithromycin tablets, Anemia Health Concerns: dehydration, pneumonia, anemia Plan of Treatment: After treated in the hospital, you became alert and orientated. you may resume your home medication Schedule. You were found to have significantly dehydration. After IV fluids for hydration, your dehydration is resolved. You may keep hydration in the home. He were found to have Atypical pneumonia, azithromycin is prescribed for you to finish the treatment course. You were found to have anemia, iron and folic acid are prescription for you, You may follow-up with your PCP to manage your anemia. Care Goals: Stabilization and improvement of your medical condition Assessment: Discussed the care plan with you, answered your questions, you understood Additional Instructions or Follow Up instructions: You may followup with your PCP in 1-2 weeks. Should your symptoms return or worsen, you may present to ER or call 911 for help. No Smoking: If you smoke, Please STOP! Call for help. Follow-up with: Deion Wheeler MD [Primary Care Provider] -
--- NOTE | 2021-01-04 12:42 | DISCHARGE SUMMARY ---
Discharge Summary Admit Date: 01/03/21 Discharge Date: 01/04/21 Discharging Provider: Jj Nye Primary Care Provider: Deion Muse Condition at Discharge: Fair Discharge Disposition: 01 Home, Self Care Discharge Facility Name: home - DIAGNOSES Discharge Diagnoses with Status of Each Condition: (1) Altered mental status resolved. pt is alert and oriented as his baseline. (2) Atypical pneumonia Patient had 96% oxygen saturation on room air without acute respiratory distress. Patient is prescribed azithromycin to finish the treatment course. (3) Acute renal failure Creatinine become 1.2 as patient's baseline. Encourage patient keep hydration at home. (4) Hyperkalemia Resolved (5) T2DM (type 2 diabetes mellitus) A1c 8.2, resume home medication schedule (6) Hyponatremia Resolved (7) Anemia Hemoglobin 10.1. Patient is found to have iron deficiency and folate deficiency. Patient is prescribed iron and folate. (8) History of atrial fibrillation Heart rate is controlled. resume patient home medication schedule. Patient denies chest pain or palpitation. (9) Hx of coronary artery disease Stable, resume patient home medication schedule (10) Morbid obesity with BMI of 40.0-44.9, adult as pt's hx, Patient may lost weight (11) ROBBI (obstructive sleep apnea) Encourage the patient follow-up with his blocker and polisher gold wheel to manage this chronic condition. - HPI History of Present Illness: refer from Dr. Alondra Demarco's HPI on 01/03/21 This is a 75-year-old white male with a history of CO at the age of 40, had coronary artery stenting and CABG, history of diabetes mellitus, CHF, A. fib on DOAC, sleep apnea on CPAP (currently not using). Patient has had 4 prior admissions here all presenting with confusion: In March 2015 and Jun 2014, he had confusion related to dehydration with ROSCOE, in October 2016 he had confusion due to sepsis from pneumonia, in November 2017 he had confusion probably from dehydration. The patient has had a wet cough for 2 days and today became lethargic and was speaking gibberish and hallucinating this afternoon. He was brought to the emergency room and the gave most of the history there. This patient was infected with coronavirus in July 2019 and also has been immunized for Covid since then. The patient had a fever in the emergency room and labs show negative Covid test, negative influenza test, creatinine 1.6, potassium 5.7, Lactic acid level normal, and chest x-ray showed diffuse interstitial thickening, read as possible viral pneumonitis. Patient has received 2 L of fluids in the ED and has become more alert and much less confused. Blood cultures have been taken but no empiric antibiotics have yet been started. He is able to give answers appropriately now. He states he is compliant with his meds but not with his CPAP machine. He once needed a thoracentesis when he had such a cough, he describes. The patient is being placed in Observation to continue to rehydrate him carefully due to Hx of CHF, and to start antibiotics for atypical pneumonia and to monitor improvement of his altered mental status. We discussed CODE STATUS and he wishes to be a DNR. - HOSPITAL COURSE Hospital Course: Patient was admitted for altered mental status. Patient was found to have significant dehydration, ROSCOE, Atypical pneumonia.Patient was treated with intravenous IV fluids, azithromycin for a Atypical pneumonia. After treatment, patient become alert and orientated. Creatinine became 1.2 at his baseline. Patient had 96% oxygen saturation on room air without respiratory distress. Patient requested discharge to go home. Patient is discharged as hemodynamic stable condition - ALLERGIES Allergies/Adverse Reactions: Allergies Allergy/AdvReac Type Severity Reaction Status Date / Time shellfish derived Allergy Unknown Verified 11/13/17 17:37 - MEDICATIONS Home Medications: Ambulatory Orders Medication Instructions Recorded Confirmed Cyanocobalamin (Vitamin B-12) 1,000 mcg PO DAILY 03/25/15 01/04/21 [B-12] Atorvastatin Calcium 20 mg PO QPM 11/01/16 01/04/21 Omeprazole 40 mg PO QDAC 11/01/16 01/04/21 Testosterone Cypionate 200 mg IM Q14D 11/01/16 01/04/21 [Depo-Testosterone] allopurinoL [Allopurinol] 200 mg PO DAILY 11/01/16 01/04/21 Furosemide [Lasix] 40 mg PO DAILY tablet 11/14/17 01/04/21 Insulin Glargine [Lantus Solostar] 40 units SUBQ BID 11/14/17 01/04/21 Metformin HCl [Metformin ER 2,000 mg PO DAILY 11/14/17 01/04/21 Osmotic] Azithromycin [Zithromax] 250 mg PO DAILY #4 tablet 01/04/21 Carvedilol [Coreg] 25 mg PO BID 01/04/21 01/04/21 Cyclobenzaprine [Flexeril] 10 mg PO TID PRN 01/04/21 01/04/21 DULoxetine [Cymbalta] 90 mg PO DAILY 01/04/21 01/04/21 Ferrous Gluconate [Fergon] 324 mg PO DAILYWM #30 tablet 01/04/21 Folic Acid 1 mg PO DAILY #30 tablet 01/04/21 Insulin Lispro [Insulin Lispro 15 unit SUBQ TIDWM 01/04/21 01/04/21 Harry Bryon] Lisinopril [Zestril] 40 mg PO DAILY 01/04/21 01/04/21 Pramipexole [Mirapex] 0.125 mg PO HS 01/04/21 01/04/21 Rivaroxaban [Xarelto] 20 mg PO QDDINNER 01/04/21 01/04/21 Sildenafil Citrate 100 mg PO DAILY PRN 01/04/21 01/04/21 oxyCODONE ER [OxyCONTIN] 10 mg PO BID 01/04/21 01/04/21 - PHYSICAL EXAM AT DISCHARGE General Appearance: positive: No acute distress, Alert. negative: Lethargic Eyes Bilateral: positive: Normal inspection, PERRL, No lid inflammation ENT: positive: ENT inspection nml, No signs of dehydration. negative: Purulent nasal drainage Neck: positive: Nml inspection, Trachea midline. negative: Thyromegaly, Tracheal deviation Respiratory: positive: Chest non-tender, No respiratory distress. negative: Wheezes Cardiovascular: positive: Regular rate & rhythm, No murmur. negative: Tachycardia, Bradycardia, Systolic murmur, Diastolic murmur Peripheral Pulses: positive: 2+ Abdomen: positive: Non-tender, Nml bowel sounds, No distention. negative: Tenderness Back: positive: Nml inspection Skin: positive: No rash, Warm, Dry. negative: Cyanosis Extremities: positive: Non-tender, Full ROM, Nml appearance. negative: Calf tenderness Neurologic/Psychiatric: positive: Oriented x3, Motor nml, Sensation nml, Mood/affect nml. negative: Weakness, Sensory loss, Facial droop, Slurred/abnml speech, Depressed mood/affect - LABS Result Diagrams: 01/04/21 04:38 01/04/21 04:38 - FOLLOW UP Follow Up: After treated in the hospital, you became alert and orientated. you may resume your home medication Schedule. You were found to have significantly dehydration. After IV fluids for hydration, your dehydration is resolved. You may keep hydration in the home. You were found to have Atypical pneumonia, azithromycin is prescribed for you to finish the treatment course. You were found to have anemia, iron and folic acid are prescription for you, You may follow-up with your PCP to manage your anemia. You may followup with your PCP in 1-2 weeks. Should your symptoms return or worsen, you may present to ER or call 911 for help. - TIME SPENT Time Spent in Discharge (Minutes): 30
--- NOTE | 2021-01-04 15:19 | PHARMACY PROGRESS NOTE ---
- Best Possible Medication History Admit Date and Time: 01/03/212125 Processed by: Pharmacy Medication History completed: Yes Patient Interview: Completed Secondary Source(s): Physician records, Pharmacy records, Insurance records As the person ultimately responsible for medication therapy, providers are able to order a medication from an existing home medication list in [facility] via the "Reconcile Routine" prior to Confirmation of that medication by lan support specialist. Such practice is discouraged except when the physician, in their clinical judgment, deems that a medical need exists for a medication without regard to previous use.
[2021-01-05] MEDS ORDERED: AZITHROMYCIN INJ 500 MG in SODIUM CHLORIDE 0.9% 250 ML IV SCH (09:00)
== END 2021-01-04 13:38 | disposition home or self-care (01) ==
LOC: ED 19:12 → MS2 21:26
PROVIDERS: ADMIT Internal Medicine; ATTEND Internal Medicine
DX: J18.9 Pneumonia, unspecified organism (principal); G93.40 Encephalopathy, unspecified; N17.9 Acute kidney failure, unspecified; E86.0 Dehydration; G47.33 Obstructive sleep apnea (adult) (pediatric); E87.5 Hyperkalemia; E87.1 Hypo-osmolality and hyponatremia; D50.9 Iron deficiency anemia, unspecified; D52.9 Folate deficiency anemia, unspecified; I11.0 Hypertensive heart disease with heart failure; I50.9 Heart failure, unspecified; I48.91 Unspecified atrial fibrillation; E11.65 Type 2 diabetes mellitus with hyperglycemia; I25.10 Atherosclerotic heart disease of native coronary artery without angina pectoris; E66.01 Morbid (severe) obesity due to excess calories; Z68.41 Body mass index [BMI] 40.0-44.9, adult; E78.00 Pure hypercholesterolemia, unspecified; I25.2 Old myocardial infarction; Z95.5 Presence of coronary angioplasty implant and graft; Z86.16 Personal history of COVID-19; Z20.822 Contact with and (suspected) exposure to COVID-19; Z91.19 Patient's noncompliance with other medical treatment and regimen; Z87.891 Personal history of nicotine dependence; Z79.02 Long term (current) use of antithrombotics/antiplatelets; Z79.4 Long term (current) use of insulin; Z79.82 Long term (current) use of aspirin; Z79.899 Other long term (current) drug therapy
CPT/HCPCS: 36415; 71045; 80048; 80053; 81003; 82607; 82746; 83036; 83540; 83605; 83690; 84466; 85025; 87040; 87631; 96361; 96365; 99283; 99285; A9270; G0378; 0202U; 81001; 82272; 87086

== ENCOUNTER 2021-01-14 19:13 | Emergency (ER) | payer MEDICARE, OTHER ==
[2021-01-14] MEDS ORDERED: TRANEXAMIC ACID 1,000 MG/10 ML VIAL NAS STA (20:06)
[2021-01-14] MEDS ORDERED: OXYMETAZOLINE HCL 100 SPRAYS BOTTLE NAS STA (20:07)
[2021-01-14] MEDS ORDERED: LIDOCAINE VISCOUS 2% 15 ML UDC MM STA (20:07)
--- NOTE | 2021-01-14 20:23 | ED Physician Documentation ---
PD HPI HEENT - Stated complaint Stated Complaint: nose bleed - Chief complaint Chief Complaint: Heent - History obtained from History obtained from: Patient - History of Present Illness Timing - onset: Enter time (11:00), Today Timing - details: Abrupt onset Location: Nose (right nare) Improves: Nothing Worsens: Other (no exacerbating factors) Recently seen: Not recently seen - Additional information Additional information: c/o atraumatic right nare epistaxis since 11 AM today. He is on xarelto. he has tried applying pressure episodically but with only transient decrease or cessation of bleeding Review of Systems Nose: reports: Epistaxis. denies: Congestion, Sinus pressure / pain PD PAST MEDICAL HISTORY - Past Medical History Past Medical History: Yes Cardiovascular: Congestive heart failure, Hypertension, High cholesterol, Coronary artery disease, [place], Atrial fibrillation Respiratory: None, CPAP use Neuro: Other Endocrine/Autoimmune: Type 2 diabetes GI: None : None HEENT: None Psych: None Musculoskeletal: None Derm: None - Past Surgical History Past Surgical History: Yes General: Cholecystectomy, Appendectomy Cardiovascular: CABG, Coronary stent, Angioplasty - Present Medications Home Medications: Ambulatory Orders Medication Instructions Recorded Confirmed Cyanocobalamin (Vitamin B-12) 1,000 mcg PO DAILY 03/25/15 01/14/21 [B-12] Atorvastatin Calcium 20 mg PO QPM 11/01/16 01/14/21 Omeprazole 40 mg PO QDAC 11/01/16 01/14/21 Testosterone Cypionate 200 mg IM Q14D 11/01/16 01/14/21 [Depo-Testosterone] allopurinoL [Allopurinol] 200 mg PO DAILY 11/01/16 01/14/21 Furosemide [Lasix] 40 mg PO DAILY tablet 11/14/17 01/14/21 Insulin Glargine [Lantus Solostar] 40 units SUBQ BID 11/14/17 01/14/21 Metformin HCl [Metformin ER 2,000 mg PO DAILY 11/14/17 01/14/21 Osmotic] Azithromycin [Zithromax] 250 mg PO DAILY #4 tablet 01/04/21 01/14/21 Carvedilol [Coreg] 25 mg PO BID 01/04/21 01/14/21 Cyclobenzaprine [Flexeril] 10 mg PO TID PRN 01/04/21 01/14/21 DULoxetine [Cymbalta] 90 mg PO DAILY 01/04/21 01/14/21 Ferrous Gluconate [Fergon] 324 mg PO DAILYWM #30 tablet 01/04/21 01/14/21 Folic Acid 1 mg PO DAILY #30 tablet 01/04/21 01/14/21 Insulin Lispro [Insulin Lispro 15 unit SUBQ TIDWM 01/04/21 01/14/21 Harry Bryon] Lisinopril [Zestril] 40 mg PO DAILY 01/04/21 01/14/21 Pramipexole [Mirapex] 0.125 mg PO HS 01/04/21 01/14/21 Rivaroxaban [Xarelto] 20 mg PO QDDINNER 01/04/21 01/14/21 Sildenafil Citrate 100 mg PO DAILY PRN 01/04/21 01/14/21 oxyCODONE ER [OxyCONTIN] 10 mg PO BID 01/04/21 01/14/21 - Allergies Allergies/Adverse Reactions: Allergies Allergy/AdvReac Type Severity Reaction Status Date / Time shellfish derived Allergy Unknown Verified 11/13/17 17:37 - Social History Does the pt smoke?: No Smoking Status: Never smoker Does the pt drink ETOH?: Yes Does the pt have substance abuse?: No - Immunizations Immunizations are current?: Yes - POLST Patient has POLST: No POLST Status: Full Code PD ED PE NORMAL - Vitals Vital signs reviewed: Yes - General General: Alert and oriented X 3, No acute distress, Well developed/nourished - HEENT HEENT: Moist mucous membranes, Pharynx benign, Other (small dried clots in right nare in posterior nare, solitary 2-3mm dried clot on right septum anteriorly . no active bleeding noted) Results - Vitals Vitals: Oxygen O2 Source [With Activity] Room air O2 Source [Without Activity] Room air O2 Source Room air PD MEDICAL DECISION MAKING - ED course Complexity details: considered differential, d/w patient ED course: nasal clamp had been placed by RN prior to my evaluation of patient. I removed the clamps and exam as above; no active bleeding. I suspect the source is likely right nare anteriorly where the small dried clot is adherent to the mucosal surface of the septum. In reviewing previous visit (2017) when I was EDMD under similar circumstances, control of the epistaxis required several attempts with different methods before hemostasis was achieved. I discussed the options with patient: discharge after 15-20 minutes of observation with clamp if he does not rebleed, suctioning clots to ascertain if bleeding and then attempting cautery and/or packing. He agrees with observation and discharge if he doesn't rebleed. After 40 minutes of observation, bleeding did not restart and thus discharged home. He is encouraged to return if bleeding resumes that is not controlled with use of the nasal clamps for 15-20 minutes per attempt x 3 attempts (understanding controlled means stoppage of bleeding for at least several hours; some episodic rebleeding is to be expected) Departure - Departure Disposition: 01 Home, Self Care Clinical Impression: Epistaxis Condition: Good Instructions: ED Nosebleed Follow-Up: Deion Wheeler MD [Primary Care Provider] - Comments: If the bleeding restarts, use the nasal clamps on the soft part of the nose (avoid the bony bridge at the top of the nose, as this will prevent the blood vessels from being clamped down). Keep the clamp on for 15-20 minutes and then slowly release. If the bleeding restarts, repeat this process. If the bleeding does not stop after three attempts, or if the bleeding becomes severe, return to the emergency department. Realize that there will likely be episodes of bleeding overnight and tomorrow, but they should be able to be controlled for at least a few hours at a time with the above maneuver using the clamps. Do not leave the clamp on for more than 20 minutes at a time. Discharge Date/Time: 01/14/21 21:46
[2021-01-14 21:51] VITALS: BP 159/71
== END 2021-01-14 21:46 | disposition home or self-care (01) ==
LOC: ED 19:13
DX: R04.0 Epistaxis (principal); I11.0 Hypertensive heart disease with heart failure; I50.9 Heart failure, unspecified; I48.91 Unspecified atrial fibrillation; E11.9 Type 2 diabetes mellitus without complications; Z79.4 Long term (current) use of insulin
CPT/HCPCS: 99281; A9270

== ENCOUNTER 2021-03-09 17:13 | Outpatient (CLI) | payer MEDICARE, OTHER | END 2021-03-09 23:59 | disposition critical access hospital (66) | LOC: EMS 17:13 | DX: R40.4 Transient alteration of awareness (principal) | CPT/HCPCS: A0425; A0427 ==

== ENCOUNTER 2021-03-09 17:25 | Observation (INO) | payer MEDICARE, OTHER ==
--- NOTE | 2021-03-09 17:34 | ED Physician Documentation ---
PD HPI BACK PAIN - Stated complaint Stated Complaint: OD - History obtained from History obtained from: EMS - Additional information Additional information: 75-year-old gentleman presents by ambulance for acutely altered mental status thought to be related to potential oxycodone overdose. He has been taking oxycodone for back pain. Reportedly they were called for a "diabetic problem" tonight. His blood sugar was in the 220s obviously not causative but he was very altered. Per EMS he did improve significantly with the administration of 2 x 0.4 mg doses of Narcan IV. Per by phone: after returning from grocery store he was asleep and not eating. Kept falling, no injury. He was sweaty and unarousable. She did not think he would over take his oxycodone, but admits he had more back and leg pain tonight than normal. He has lymphoma and is being treated for that. Mostly in his chest. Review of Systems Unable to obtain: Confused PD PAST MEDICAL HISTORY - Past Medical History Cardiovascular: Congestive heart failure, Hypertension, High cholesterol, Coronary artery disease, [place], Atrial fibrillation Respiratory: None, CPAP use Neuro: Other Endocrine/Autoimmune: Type 2 diabetes GI: None : None HEENT: None Psych: None Musculoskeletal: None Derm: None - Past Surgical History Past Surgical History: Yes General: Cholecystectomy, Appendectomy Cardiovascular: CABG, Coronary stent, Angioplasty - Present Medications Home Medications: Ambulatory Orders Medication Instructions Recorded Confirmed Cyanocobalamin (Vitamin B-12) 1,000 mcg PO DAILY 03/25/15 01/14/21 [B-12] Atorvastatin Calcium 20 mg PO QPM 11/01/16 01/14/21 Omeprazole 40 mg PO QDAC 11/01/16 01/14/21 Testosterone Cypionate 200 mg IM Q14D 11/01/16 01/14/21 [Depo-Testosterone] allopurinoL [Allopurinol] 200 mg PO DAILY 11/01/16 01/14/21 Furosemide [Lasix] 40 mg PO DAILY tablet 11/14/17 01/14/21 Insulin Glargine [Lantus Solostar] 40 units SUBQ BID 11/14/17 01/14/21 Metformin HCl [Metformin ER 2,000 mg PO DAILY 11/14/17 01/14/21 Osmotic] Azithromycin [Zithromax] 250 mg PO DAILY #4 tablet 01/04/21 01/14/21 Carvedilol [Coreg] 25 mg PO BID 01/04/21 01/14/21 Cyclobenzaprine [Flexeril] 10 mg PO TID PRN 01/04/21 01/14/21 DULoxetine [Cymbalta] 90 mg PO DAILY 01/04/21 01/14/21 Ferrous Gluconate [Fergon] 324 mg PO DAILYWM #30 tablet 01/04/21 01/14/21 Folic Acid 1 mg PO DAILY #30 tablet 01/04/21 01/14/21 Insulin Lispro [Insulin Lispro 15 unit SUBQ TIDWM 01/04/21 01/14/21 Harry Bryon] Lisinopril [Zestril] 40 mg PO DAILY 01/04/21 01/14/21 Pramipexole [Mirapex] 0.125 mg PO HS 01/04/21 01/14/21 Rivaroxaban [Xarelto] 20 mg PO QDDINNER 01/04/21 01/14/21 Sildenafil Citrate 100 mg PO DAILY PRN 01/04/21 01/14/21 oxyCODONE ER [OxyCONTIN] 10 mg PO BID 01/04/21 01/14/21 - Allergies Allergies/Adverse Reactions: Allergies Allergy/AdvReac Type Severity Reaction Status Date / Time shellfish derived Allergy Unknown Verified 03/09/21 17:52 - Social History Does the pt smoke?: No Smoking Status: Never smoker Does the pt drink ETOH?: Yes Does the pt have substance abuse?: No - Immunizations Immunizations are current?: Yes - POLST Patient has POLST: No POLST Status: Full Code PD ED PE NORMAL - Vitals Vital signs reviewed: Yes - General General: No acute distress, Other (He will arouse to voice but he is talking gibberish mostly. He is yawning. He is not aware of what is going on.) - HEENT HEENT: Other (Small pupils, reactive, not pinpoint.) - Neck Neck: Supple, no meningeal sign, No bony TTP - Cardiac Cardiac: RRR, No murmur - Respiratory Respiratory: No respiratory distress, Clear bilaterally - Abdomen Abdomen: Normal bowel sounds, Soft, Non tender - Back Back: No CVA TTP, No spinal TTP - Derm Derm: Normal color, Warm and dry - Neuro Neuro: No motor deficit, Other (Seems to be moving all extremities well but will not follow commands for sensory testing) Eye Opening: To Voice Motor: Localizes to Pain Verbal: Inappropriate GCS Score: 11 Results - Vitals Vitals: Vital Signs - 24 hr 03/09/21 03/09/21 03/09/21 17:26 18:09 18:18 Heart Rate 83 83 79 Respiratory 14 14 16 Rate Blood Pressure 136/110 H 104/67 O2 Saturation 97 97 03/09/21 18:38 Heart Rate 85 Respiratory 21 Rate Blood Pressure 110/60 O2 Saturation 96 Oxygen O2 Source [With Activity] Room air O2 Source [Without Activity] Room air O2 Source Room air - Labs Labs: Laboratory Tests 03/09/21 03/09/21 03/09/21 18:12 18:12 18:12 WBC 7.1 RBC 4.85 Hgb 11.5 L Hct 37.6 L MCV 77.5 L MCH 23.7 L MCHC 30.6 L RDW 16.6 H Plt Count 120 L MPV 8.8 Neut # (Auto) 5.3 Lymph # (Auto) 1.0 L [place] # (Auto) 0.5 Eos # (Auto) 0.2 Baso # (Auto) 0.0 Absolute Nucleated RBC 0.00 Nucleated RBC % 0.0 Sodium 134 L Potassium 4.6 Chloride 99 L Carbon Dioxide 25 Anion Gap 10.0 BUN 29 H Creatinine 2.4 H Estimated GFR (MDRD) 27 L Glucose 228 H Calcium 9.1 Total Bilirubin 1.1 H AST 16 ALT 11 Alkaline Phosphatase 74 Total Protein 7.2 Albumin 3.8 Globulin 3.4 Albumin/Globulin Ratio 1.1 Lipase 32 TSH 2.56 Salicylates < 6.0 Acetaminophen < 10 L Ethyl Alcohol < 5.0 PD MEDICAL DECISION MAKING - ED course ED course: Pill count done, oxycodone ER 10mg tabs, #60 filled 02/28/21; there are #42 left in the bottle. So he is not obviously overusing based on this this. Around 6:30 PM he became progressively hypoxic, going down to 87% room air, Narcan was repeated with intended effect. Spoke with poison control after the episode of desaturation. They recommend least 12 hours observation. We discussed his renal function, and they agree that that may be why he is altered since oxycodone is almost 100% renally excreted. He was started on a Narcan drip. I updated the , she would like to note that the patient will like to be discharged before 1pm tomorrow as that is when the [employer] game is. I made no promises. Spoke with Dr Hernandez for obs at [id number]. Departure - Departure Disposition: ED Place in Observation Clinical Impression: Encephalopathy acute, History of atrial fibrillation, Hx of coronary artery disease, ROSCOE (acute kidney injury) Narcotic overdose Qualifiers: Encounter type: initial encounter Injury intent: undetermined intent Qualified Code(s): T40.604A - Poisoning by unspecified narcotics, undetermined, initial encounter Condition: Serious
[2021-03-09 18:15] LABS: BASOPHILS % (AUTO) 0.6 %; EOSINOPHILS # (AUTO) 0.2 10^3/uL (0.0-0.7); EOSINOPHILS % (AUTO) 2.3 %; HCT - HEMATOCRIT 37.6 % (42.0-52.0); HGB - HEMOGLOBIN 11.5 g/dL (14.0-18.0); LYMPHOCYTES % (AUTO) 14.6 %; MEAN CORPUSCULAR HEMOGLOBIN 23.7 pg (27.0-31.0); MEAN CORPUSCULAR HGB CONC 30.6 g/dL (32.0-36.0); MEAN CORPUSCULAR VOLUME 77.5 fL (80.0-94.0); MEAN PLATELET VOLUME 8.8 fL (7.4-11.4); MONOCYTES # (AUTO) 0.5 10^3/uL (0.0-1.0); MONOCYTES % (AUTO) 7.5 %; NEUTROPHILS # (AUTO) 5.3 10^3/uL (1.5-6.6); NEUTROPHILS % (AUTO) 74.7 %; PLT - PLATELET COUNT 120 10^3/uL (130-450); RED BLOOD COUNT 4.85 10^6/uL (4.70-6.10); RED CELL DISTRIBUTION WIDTH 16.6 % (12.0-15.0); WHITE BLOOD COUNT 7.1 x10^3/uL (4.8-10.8)
[2021-03-09] MEDS ORDERED: NALOXONE 0.4 MG/ML VIAL IVP STA (18:31)
--- NOTE | 2021-03-09 18:38 | CT Report ---
PROCEDURE: HEAD WO INDICATIONS: altered TECHNIQUE: Noncontrast 4.5 mm thick angled axial sections acquired from the foramen magnum to the vertex. For r adiation dose reduction, the following was used: automated exposure control, adjustment of mA and/or kV according to patient size. COMPARISON: MRI brain 11/14/2017. Head CT 11/13/2017. FINDINGS: Image quality: Excellent. CSF spaces: Basal cisterns are patent. No extra-axial fluid collections. Ventricles are normal in size and shape. Brain: No midline shift. No intracranial masses or hemorrhage. Area of hypodensity in a large vascu lar distribution to suggest acute infarction. Chronic microvascular ischemic disease. Age related par enchymal loss. Skull and face: Calvarium and visualized facial bones are intact, without suspicious lesions. Sinuses: Visualized sinuses and mastoids are clear. IMPRESSION: No acute intracranial abnormality. Reviewed by: Abel Maurer MD on 03/09/2021 6:37 PM PDT Approved by: Abel Maurer MD on 03/09/2021 6:37 PM PDT Station ID: [id number]
[2021-03-09 18:41] LABS: ACETAMINOPHEN < 10 ug/mL (10-30); ALBUMIN 3.8 g/dL (3.2-5.5); ALBUMIN/GLOBULIN RATIO 1.1 (1.0-2.2); ALKALINE PHOSPHATASE 74 IU/L (42-121); ALT ALANINE AMINOTRANSFERASE 11 IU/L (10-60); AST ASPARTATE AMINOTRANSFERASE 16 IU/L (10-42); BILIRUBIN,TOTAL 1.1 mg/dL (0.2-1.0); BUN - BLOOD UREA NITROGEN 29 mg/dL (6-20); CALCIUM 9.1 mg/dL (8.5-10.3); CARBON DIOXIDE - CO2 25 mmol/L (21-32); CHLORIDE 99 mmol/L (101-111); CREATININE 2.4 mg/dL (0.6-1.2); ETOH - ETHANOL < 5.0 mg/dL; GFR - MDRD 27 (>89); GLUCOSE 228 mg/dL (70-100); LIPASE 32 U/L (22-51); POTASSIUM 4.6 mmol/L (3.5-5.0); SALICYLATE < 6.0 mg/dL; SODIUM 134 mmol/L (135-145); TOTAL PROTEIN 7.2 g/dL (6.7-8.2)
[2021-03-09] MEDS ORDERED: NALOXONE 2 MG in SODIUM CHLORIDE 0.9% 495 ML IV STA (18:44)
[2021-03-09] MEDS ORDERED: ONDANSETRON ODT 4 MG TABLET TL PRN (19:09)
[2021-03-09] MEDS ORDERED: SODIUM CHLORIDE FLUSH 0.9% 10 ML SYRINGE IVP PRN (19:09)
[2021-03-09] MEDS ORDERED: ACETAMINOPHEN 325 MG TABLET PO PRN (19:09)
[2021-03-09] MEDS ORDERED: ONDANSETRON 4 MG/2 ML VIAL IVP PRN (19:09)
[2021-03-09] MEDS ORDERED: oxyCODONE 5 MG TABLET PO PRN (19:09)
[2021-03-09] MEDS ORDERED: NALOXONE 0.4 MG/1 ML 10 ML MDV IV ONE (19:15)
--- NOTE | 2021-03-09 20:42 | HISTORY & PHYSICAL EXAMINATION ---
Chief Complaint - Chief Complaint Chief Complaint: Opioid Overdose History of Present Illness - Admitted From Admitted From:: Emergency Department - History Obtained From Records Reviewed: Meditch History obtained from: Patient Exam Limitations: Altered LOC - History of Present Illness HPI Comment/Other: 75 yo obese obtunded male with hx of CHF, HTN, CAD, A-fib, and DM that presented to ED via EMS for acute AMS due to believed oxycodone overdose. His AMS according to his was that he kept falling asleep, kept stumbling( no trauma), and eventually progressed to being sweaty and unarousable for which she called EMS. Blood sugar in 220s in the ED, so probably not the causative reason for his mental status change.He takes oxycodone for back pain. His ER 10mg oxydone tabs were counted. #60 were filled 02/28/21 and there are 42 left in bottle. EMs gave him 2 doses of .4mg of Narcan IV. In the ED he exhibited decrea sed level of consciousness, but his oxygen saturation has remained in high 90s on room air and the rest of his vitals are stable. . He was put on a narcan drip and admitted for accidental overdose. It is suspected that it is not an intentional overdose. With the patients decreased kidney function it is likely that he is unable to metabolize the oxycodone properly. Currently he is receiving 100ml fluid per hour and .4mg of nalaxone per hour. His vitals signs remain stable. It was passed on that his wants him home tomorrow for the 1pm [employer] game. History - Past Medical History Cardiovascular: reports: Congestive heart failure, Hypertension, High cholesterol, Coronary artery disease, RI, Atrial fibrillation Respiratory: reports: None, CPAP use Neuro: reports: Other Endocrine/Autoimmune: reports: Type 2 diabetes GI: reports: None : reports: None HEENT: reports: None Psych: reports: None Musculoskeletal: reports: None Derm: reports: None MRSA Hx?: No - Past Surgical History General: reports: Cholecystectomy, Appendectomy Cardiovascular: reports: CABG, Coronary stent, Angioplasty - Family & Social History Family History Comment/Other: The patient was adopted and does not know his family history. Living Situation: With spouse/s.o. Social History Notes: The patient quit smoking cigarettes at the age of 40 with his first RI. He has no illicit drug use history. He drinks alcohol occaisionally. He lives with his . - Substance History Use: Uses substance without health or social issues: Alcohol - POLST Patient has POLST: No POLST Status: Full Code Meds/Allgy - Home Medications Home Medications: Ambulatory Orders Medication Instructions Recorded Confirmed Cyanocobalamin (Vitamin B-12) 1,000 mcg PO DAILY 03/25/15 01/14/21 [B-12] Atorvastatin Calcium 20 mg PO QPM 11/01/16 01/14/21 Omeprazole 40 mg PO QDAC 11/01/16 01/14/21 Testosterone Cypionate 200 mg IM Q14D 11/01/16 01/14/21 [Depo-Testosterone] allopurinoL [Allopurinol] 200 mg PO DAILY 11/01/16 01/14/21 Furosemide [Lasix] 40 mg PO DAILY tablet 11/14/17 01/14/21 Insulin Glargine [Lantus Solostar] 40 units SUBQ BID 11/14/17 01/14/21 Metformin HCl [Metformin ER 2,000 mg PO DAILY 11/14/17 01/14/21 Osmotic] Azithromycin [Zithromax] 250 mg PO DAILY #4 tablet 01/04/21 01/14/21 Carvedilol [Coreg] 25 mg PO BID 01/04/21 01/14/21 Cyclobenzaprine [Flexeril] 10 mg PO TID PRN 01/04/21 01/14/21 DULoxetine [Cymbalta] 90 mg PO DAILY 01/04/21 01/14/21 Ferrous Gluconate [Fergon] 324 mg PO DAILYWM #30 tablet 01/04/21 01/14/21 Folic Acid 1 mg PO DAILY #30 tablet 01/04/21 01/14/21 Insulin Lispro [Insulin Lispro 15 unit SUBQ TIDWM 01/04/21 01/14/21 Hrary [place]pen] Lisinopril [Zestril] 40 mg PO DAILY 01/04/21 01/14/21 Pramipexole [Mirapex] 0.125 mg PO HS 01/04/21 01/14/21 Rivaroxaban [Xarelto] 20 mg PO QDDINNER 01/04/21 01/14/21 Sildenafil Citrate 100 mg PO DAILY PRN 01/04/21 01/14/21 oxyCODONE ER [OxyCONTIN] 10 mg PO BID 01/04/21 01/14/21 - Allergies Allergies/Adverse Reactions: Allergies Allergy/AdvReac Type Severity Reaction Status Date / Time shellfish derived Allergy Unknown Verified 03/09/21 17:52 Review of Systems - All Other Systems All Other Systems: reports: Other (Not able to obtain due to current LOC) Exam - Vital Signs Reviewed Vital Signs: Yes Vital Signs: Vital Signs x48h Pulse Resp BP Pulse Ox 03/09/21 18:38 85 21 110/60 96 03/09/21 18:18 79 16 104/67 97 03/09/21 18:09 83 14 03/09/21 17:26 83 14 136/110 H 97 - Physical Exam General Appearance: positive: No acute distress, Lethargic, Other (Obese. Drowsy, but arousable.) Eyes Bilateral: positive: Other (small pupils, but equal and reactive) Neck: positive: No JVD, Trachea midline, Other (Large neck circumfrence) Respiratory: positive: Chest non-tender, Other (Apneac episodes of 6-8 seconds while sleeping. Gasping also present). negative: Wheezes, Rales, Rhonchi Cardiovascular: positive: Regular rate & rhythm, No murmur Peripheral Pulses: positive: 2+ Abdomen: positive: Non-tender, No distention Skin: positive: Color nml, Warm, Dry Extremities: positive: Pedal edema, Other (hemosiderin deposits present jorge l aterally.) Neurologic/Psychiatric: positive: CN's nml (2-12), Motor nml, Other (Decreased LOC, is arousable by voice.) Conclusion/Plan - Problem List (1) Accidental overdose Conclusion/Plan: This patients clinical presentation of central apnea, decreased arousal/LOC, and history of opioid medications indicates that he is is suffering a metabolic encephelopathy with accompanied AMS and central apnea. This is supported by his current oxycodone pill count. His Bun and Cr are elevated and his GFR is 27 due to his renal hx. This would most certainly cause the opioid metabolites to not be excreted and to increase their impact on his LOC and respiratory drive. He is reported to also consume ETOH and this could also possibly play a role if mixed with his narcotics. A diabetic complication was considered, but with his blood sugar only being in the 220s and on proper medication this is unlikely. There are also no signs or symptoms of infection that may be causing his current symptoms. His head CT was negative for any signs of CVA. His oxygen saturation and vital signs are currently stable and should continue to be. Plan: Continue with the narcan drip at .4mg /hr and fluids at 100ml an hour. He will be monitored overnight for any change his condition. Will do repeat labs in the morning. (2) T2DM (type 2 diabetes mellitus) Conclusion/Plan: Blood sugar currently elevated in the 220s. Patient is currently taking medication for this and being seen by his PCP. Give Lantus 25mg. Sliding scale. Will recheck blood sugar. No other intervention needed at this time. 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 Otherwise currently stable. Continue to avoid nephrotoxic agents and repeat BMP in the morning. - Lab Results Lab results reviewed: Yes Fish Bones: 03/09/21 18:12 03/09/21 18:12 Other Lab Results: WBC 7.1 x10^3/uL (4.8-10.8) 03/09/21 18:12 RBC 4.85 10^6/uL (4.70-6.10) 03/09/21 18:12 Hgb 11.5 g/dL (14.0-18.0) L 03/09/21 18:12 Hct 37.6 % (42.0-52.0) L 03/09/21 18:12 MCV 77.5 fL (80.0-94.0) L 03/09/21 18:12 MCH 23.7 pg (27.0-31.0) L 03/09/21 18:12 MCHC 30.6 g/dL (32.0-36.0) L 03/09/21 18:12 RDW 16.6 % (12.0-15.0) H 03/09/21 18:12 Plt Count 120 10^3/uL (130-450) L 03/09/21 18:12 MPV 8.8 fL (7.4-11.4) 03/09/21 18:12 Neut # (Auto) 5.3 10^3/uL (1.5-6.6) 03/09/21 18:12 Lymph # (Auto) 1.0 10^3/uL (1.5-3.5) L 03/09/21 18:12 Murray # (Auto) 0.5 10^3/uL (0.0-1.0) 03/09/21 18:12 Eos # (Auto) 0.2 10^3/uL (0.0-0.7) 03/09/21 18:12 Baso # (Auto) 0.0 10^3/uL (0.0-0.1) 03/09/21 18:12 Absolute Nucleated RBC 0.00 x10^3/uL 03/09/21 18:12 Nucleated RBC % 0.0 /100WBC 03/09/21 18:12 Sodium 134 mmol/L (135-145) L 03/09/21 18:12 Potassium 4.6 mmol/L (3.5-5.0) 03/09/21 18:12 Chloride 99 mmol/L (101-111) L 03/09/21 18:12 Carbon Dioxide 25 mmol/L (21-32) 03/09/21 18:12 Anion Gap 10.0 (6-13) 03/09/21 18:12 BUN 29 mg/dL (6-20) H 03/09/21 18:12 Creatinine 2.4 mg/dL (0.6-1.2) H 03/09/21 18:12 Estimated GFR (MDRD) 27 (>89) L 03/09/21 18:12 Glucose 228 mg/dL (70-100) H 03/09/21 18:12 Calcium 9.1 mg/dL (8.5-10.3) 03/09/21 18:12 Total Bilirubin 1.1 mg/dL (0.2-1.0) H 03/09/21 18:12 AST 16 IU/L (10-42) 03/09/21 18:12 ALT 11 IU/L (10-60) 03/09/21 18:12 Alkaline Phosphatase 74 IU/L (42-121) 03/09/21 18:12 Total Protein 7.2 g/dL (6.7-8.2) 03/09/21 18:12 Albumin 3.8 g/dL (3.2-5.5) 03/09/21 18:12 Globulin 3.4 g/dL (2.1-4.2) 03/09/21 18:12 Albumin/Globulin Ratio 1.1 (1.0-2.2) 03/09/21 18:12 Lipase 32 U/L (22-51) 03/09/21 18:12 TSH 2.56 uIU/mL (0.34-5.60) 03/09/21 18:12 Nasal Adenovirus (PCR) NOT DETECTED 03/09/21 19:52 Nasal B. parapertussis DNA (PCR) NOT DETECTED 03/09/21 19:52 Nasal Coronavir 229E PCR NOT DETECTED 03/09/21 19:52 Nasal Coronavir HKU1 PCR NOT DETECTED 03/09/21 19:52 Nasal Coronavir NL63 PCR NOT DETECTED 03/09/21 19:52 Nasal Coronavir OC43 PCR NOT DETECTED 03/09/21 19:52 Nasal Enterovir/Rhinovir PCR NOT DETECTED 03/09/21 19:52 Nasal Influenza B PCR NOT DETECTED 03/09/21 19:52 Nasal Influenza A PCR NOT DETECTED 03/09/21 19:52 Nasal Parainfluen 1 PCR NOT DETECTED 03/09/21 19:52 Nasal Parainfluen 2 PCR NOT DETECTED 03/09/21 19:52 Nasal Parainfluen 3 PCR NOT DETECTED 03/09/21 19:52 Nasal Parainfluen 4 PCR NOT DETECTED 03/09/21 19:52 Nasal RSV (PCR) NOT DETECTED 03/09/21 19:52 Nasal B.pertussis DNA PCR NOT DETECTED 03/09/21 19:52 Nasal C.pneumoniae (PCR) NOT DETECTED 03/09/21 19:52 Alex Human Metapneumo PCR NOT DETECTED 03/09/21 19:52 Nasal M.pneumoniae (PCR) NOT DETECTED 03/09/21 19:52 Nasal SARS-CoV-2 (PCR) NOT DETECTED 03/09/21 19:52 Salicylates < 6.0 mg/dL 03/09/21 18:12 Acetaminophen < 10 ug/mL (10-30) L 03/09/21 18:12 Ethyl Alcohol < 5.0 mg/dL 03/09/21 18:12 Core Measures - DVT/VTE - Prophylaxis VTE/DVT Prophylaxis med ordered at admit?: Yes
[2021-03-09 20:50] LABS: B. PARAPERTUSSIS- RESP PCR PAN NOT DETECTED; B. PERTUSSIS- RESP PCR PANEL NOT DETECTED; C. PNEUMONIAE- RESP PCR PANEL NOT DETECTED; CORONAVIRUS 229E-RESP PCR NOT DETECTED; CORONAVIRUS HKU1-RESP PCR NOT DETECTED; CORONAVIRUS NL63-RESP PCR NOT DETECTED; CORONAVIRUS OC43-RESP PCR NOT DETECTED; HUMAN METAPNEUMOVIRUS NOT DETECTED; INFLUENZA A- RESP PCR PANEL NOT DETECTED; INFLUENZA B - RESP PCR PANEL NOT DETECTED; M. PNEUMONIAE- RESP PCR PANEL NOT DETECTED; PARAINFLUENZA VIRUS 1 NOT DETECTED; PARAINFLUENZA VIRUS 2 NOT DETECTED; PARAINFLUENZA VIRUS 3 NOT DETECTED; PARAINFLUENZA VIRUS 4 NOT DETECTED; RHINOVIRUS/ENTEROVIRUS NOT DETECTED; RSV- RESP PCR PANEL NOT DETECTED; SARS-CoV-2 -RESP PCR PANEL NOT DETECTED
[2021-03-09] MEDS ORDERED: INSULIN GLARGINE 300 UNIT/3 ML PEN SUBQ SCH (21:00)
[2021-03-09] MEDS ORDERED: PRAMIPEXOLE 0.25 MG TABLET PO SCH (21:00)
[2021-03-09] MEDS: NS W/20 MEQ KCL 1,000 ML IV SCH (21:23)
[2021-03-09] MEDS: INSULIN ASPART 300 UNIT/3 ML PEN SUBQ SCH (21:53)
[2021-03-10] MEDS ORDERED: SODIUM CHLORIDE 0.9% 500 ML IV ONE ×2 (00:12→05:37)
[2021-03-10] MEDS ORDERED: NALOXONE 0.4 MG/1 ML 10 ML MDV IV ONE (00:16)
[2021-03-10] MEDS: NALOXONE 2 MG in SODIUM CHLORIDE 0.9% 495 ML IV SCH ×2 (00:21→05:37)
[2021-03-10] MEDS: SODIUM CHLORIDE FLUSH 0.9% 10 ML SYRINGE IVP SCH ×2 (01:12→09:51)
[2021-03-10 04:58] LABS: BASOPHILS % (AUTO) 0.6 %; EOSINOPHILS # (AUTO) 0.1 10^3/uL (0.0-0.7); EOSINOPHILS % (AUTO) 2.1 %; HCT - HEMATOCRIT 37.6 % (42.0-52.0); HGB - HEMOGLOBIN 11.5 g/dL (14.0-18.0); LYMPHOCYTES % (AUTO) 15.3 %; MEAN CORPUSCULAR HEMOGLOBIN 23.5 pg (27.0-31.0); MEAN CORPUSCULAR HGB CONC 30.6 g/dL (32.0-36.0); MEAN CORPUSCULAR VOLUME 76.9 fL (80.0-94.0); MEAN PLATELET VOLUME 8.9 fL (7.4-11.4); MONOCYTES # (AUTO) 0.4 10^3/uL (0.0-1.0); MONOCYTES % (AUTO) 6.2 %; NEUTROPHILS # (AUTO) 5.1 10^3/uL (1.5-6.6); NEUTROPHILS % (AUTO) 75.5 %; PLT - PLATELET COUNT 117 10^3/uL (130-450); RED BLOOD COUNT 4.89 10^6/uL (4.70-6.10); RED CELL DISTRIBUTION WIDTH 16.8 % (12.0-15.0); WHITE BLOOD COUNT 6.8 x10^3/uL (4.8-10.8)
[2021-03-10 05:04] LABS: CALCIUM 8.7 mg/dL (8.5-10.3); CREATININE 1.6 mg/dL (0.6-1.2); POTASSIUM 4.3 mmol/L (3.5-5.0)
[2021-03-10] MEDS: NS W/20 MEQ KCL 1,000 ML IV SCH (07:04)
[2021-03-10 07:11] LABS: MUDS CUTOFF CONCENTRATIONS CUTOFF CONC BELOW:
[2021-03-10 07:12] LABS: BILIRUBIN,URINE NEGATIVE (NEGATIVE); GLUCOSE, URINE (UA) NEGATIVE (NEGATIVE); KETONES,URINE (UA) NEGATIVE (NEGATIVE); LEUKOCYTE ESTERASE, URINE NEGATIVE (NEGATIVE); NITRITE,URINE NEGATIVE (NEGATIVE); OCCULT BLOOD,URINE NEGATIVE (NEGATIVE); PH,URINE 5.5 PH (5.0-7.5); PROTEIN,URINE NEGATIVE (NEGATIVE); UROBILINOGEN,URINE 0.2 (NORMAL) E.U./dL (NORMAL)
[2021-03-10 07:13] LABS: CLARITY,URINE CLEAR (CLEAR)
[2021-03-10 07:29] LABS: AMPHETAMINE SCREEN,URINE NEGATIVE (NEGATIVE); BARBITURATE SCREEN,UR NEGATIVE (NEGATIVE); BENZODIAZEPINES SCREEN, URINE NEGATIVE (NEGATIVE); COCAINE SCREEN URINE NEGATIVE (NEGATIVE); METHADONE SCREEN, URINE NEGATIVE (NEGATIVE); METHAMPHETAMINES SCREEN, URINE NEGATIVE (NEGATIVE); OPIATE SCREEN, URINE NEGATIVE (NEGATIVE); OXYCODONE SCREEN, URINE POSITIVE (NEGATIVE); PROPOXYPHENE SCREEN, URINE NEGATIVE (NEGATIVE); THC CANNABINOID SCREEN, URINE NEGATIVE (NEGATIVE); TRICYCLIC ANTIDEPRESSANT,URINE NEGATIVE (NEGATIVE)
[2021-03-10] MEDS: INSULIN ASPART 300 UNIT/3 ML PEN SUBQ SCH ×2 (08:03→12:15)
[2021-03-10] MEDS ORDERED: carvediloL 12.5 MG TABLET PO SCH (09:00)
[2021-03-10] MEDS ORDERED: ENOXAPARIN 40 MG/0.4 ML SYRINGE SUBQ SCH (09:00)
--- NOTE | 2021-03-10 11:08 | PHARMACY PROGRESS NOTE ---
- Best Possible Medication History Admit Date and Time: 03/09/211908 Processed by: Pharmacy Medication History completed: Yes Patient Interview: Completed Secondary Source(s): Pharmacy records, Insurance records As the person ultimately responsible for medication therapy, providers are able to order a medication from an existing home medication list in [facility] via the "Reconcile Routine" prior to Confirmation of that medication by intranet support. Such practice is discouraged except when the physician, in their clinical judgment, deems that a medical need exists for a medication without regard to previous use.
[2021-03-10 11:10] LABS: ESTIMATED AVERAGE GLUCOSE 189 mg/dL (70-100); HEMOGLOBIN A1c% 8.2 % (4.27-6.07)
--- NOTE | 2021-03-10 12:50 | Discharge Plan ---
Discharge Plan Problem Reviewed?: Yes Disposition: Home, Self Care Condition: Stable Diet: Diabetic Activity Restrictions: Activity as Tolerated Shower Restrictions: No (fall precaution) Instruction Topics: ED Altered Loc Health Concerns: confusion Plan of Treatment: you are alert and oriented plus 4 now. You may followup with your PCP in one week to review your home medications. Your CT of head reveals no acute abnormality. In the hospital, Narcan did help you in which lead to the consideration of your over-dosage of your narcotics plus your alcohol intake take the role to cause your confusion. Care Goals: Stabilization and improvement of your medical conditions Assessment: Discussed the care plan with you, answered your question, you understood Additional Instructions or Follow Up instructions: You may followup with your PCP in one week to review your home medications. Should your symptoms Return or worsen, you may present to ER or call 911 for help No Smoking: If you smoke, Please STOP! Call for help. Follow-up with: Deion Wheeler MD [Primary Care Provider] -
--- NOTE | 2021-03-10 13:06 | DISCHARGE SUMMARY ---
Discharge Summary Admit Date: 03/09/21 Discharge Date: 03/10/21 Discharging Provider: Jj Nye Primary Care Provider: Deion Muse Condition at Discharge: Stable Discharge Disposition: 01 Home, Self Care Discharge Facility Name: home - DIAGNOSES Discharge Diagnoses with Status of Each Condition: (1) altered mental status resolved. pt is alert and oriented plus 4. CT of head was unremarkable for acute finding. Pt was given Narcan drip in hospital, then pt became alert and oriented. pt has hx of confusion. Pt may followup with his PCP to review his home medications, followup medications schedule and make medical compliance. (2) T2DM (type 2 diabetes mellitus) stable, resume home meds (3) ROCSOE (acute kidney injury) stable and return his baseline. pt may keep hydration at home. (4)chronic pain stable, followup his PCP to manage his chronic pain (5)A fib stable, resume home meds - HPI History of Present Illness: refer from PA student Mr. Dorado's HPI on 03/09/21 pt Has a history of DE age 40, coronary artery stenting and CABG, history of diabetes mellitus, chronic congestive heart failure, chronic atrial fibrillation on DOAC, obstructive sleep apnea on CPAP (not using mask) with 5 prior admissions for confusion. In March 2015 confusion related to dehydration and ROSCOE (creatinine 3.4) that caused retention of metabolites from Flexeril and oxycodone, June 2015 confusion, altered mental status in relation to chronic Robaxin and [place] use with supplemented [place] use due to dental procedure resulting in sedation, dehydration, acute kidney injury, October 2016 confusion due to acute respiratory failure with hypercarbia and hypoxia from aspiration pneumonia , November 2017 confusion from unstated or unknown cause with the patient taking 10 oxycodone a day and possibly taking too much. December 2020 confusion for another episode of acute kidney injury, dehydration, viral pneumonia. With that admission, it is noted the patient is now on OxyContin and not short acting opiates. In [facility] EMR started December 2018. He is also on flexeril and mirapex. 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 He has chronic leg pain due to peripheral neuropathy. Had increasing lethargy and sleepiness and brought to the emergency room. He has responded to Narcan and as such has been started on Narcan drip to be observed for minimum of 12 hours according to poison control. It is felt that dehydration with acute kid kelle injury has resulted in retained metabolites and decreased clearance of his OxyContin. He is not hypoglycemic, has no evidence of infection, CT of head negative for stroke. Dehydration and acute kidney injury seen on labs. - ALLERGIES Allergies/Adverse Reactions: Allergies Allergy/AdvReac Type Severity Reaction Status Date / Time shellfish derived Allergy Unknown Verified 03/09/21 17:52 - MEDICATIONS Home Medications: Ambulatory Orders Medication Instructions Recorded Confirmed Cyanocobalamin (Vitamin B-12) 1,000 mcg PO DAILY 03/25/15 03/10/21 [B-12] Atorvastatin Calcium 20 mg PO QPM 11/01/16 03/10/21 Omeprazole 40 mg PO QDAC 11/01/16 03/10/21 Testosterone Cypionate 200 mg IM Q14D 11/01/16 03/10/21 [Depo-Testosterone] allopurinoL [Allopurinol] 200 mg PO DAILY 11/01/16 03/10/21 Furosemide [Lasix] 40 mg PO DAILY tablet 11/14/17 03/10/21 Insulin Glargine [Lantus Solostar] 40 units SUBQ BID 11/14/17 03/10/21 Metformin HCl [Metformin ER 2,000 mg PO DAILY 11/14/17 03/10/21 Osmotic] Carvedilol [Coreg] 12.5 mg PO BID 01/04/21 03/10/21 Cyclobenzaprine [Flexeril] 10 mg PO TID PRN 01/04/21 03/10/21 DULoxetine [Cymbalta] 90 mg PO DAILY 01/04/21 03/10/21 Ferrous Gluconate [Fergon] 324 mg PO DAILYWM #30 tablet 01/04/21 03/10/21 Folic Acid 1 mg PO DAILY #30 tablet 01/04/21 03/10/21 Insulin Lispro [Insulin Lispro 15 unit SUBQ TIDWM 01/04/21 03/10/21 Harry Bryon] Lisinopril [Zestril] 40 mg PO DAILY 01/04/21 03/10/21 Pramipexole [Mirapex] 0.125 mg PO HS 01/04/21 03/10/21 Rivaroxaban [Xarelto] 20 mg PO QDDINNER 01/04/21 03/10/21 oxyCODONE ER [OxyCONTIN] 10 mg PO BID 01/04/21 03/10/21 Nitroglycerin 0.2 mg/Hr Patch 1 patch TOP DAILY 03/10/21 03/10/21 [Nitro-Dur] Tamsulosin [Flomax] 0.4 mg PO DAILY 03/10/21 03/10/21 - PHYSICAL EXAM AT DISCHARGE General Appearance: positive: No acute distress, Alert. negative: Lethargic Eyes Bilateral: positive: Normal inspection, PERRL, No lid inflammation ENT: positive: ENT inspection nml, No signs of dehydration. negative: Purulent nasal drainage Neck: positive: Nml inspection, Trachea midline. negative: Thyromegaly, Tracheal deviation Respiratory: positive: Chest non-tender, No respiratory distress. negative: Wheezes Cardiovascular: positive: Regular rate & rhythm, No murmur. negative: Tachycardia, Bradycardia, Systolic murmur, Diastolic murmur Peripheral Pulses: positive: 2+ Abdomen: positive: Non-tender, Nml bowel sounds, No distention. negative: Tend erness Back: positive: Nml inspection Skin: positive: Color nml, Warm, Dry. negative: Cyanosis Extremities: positive: Non-tender, Full ROM, Nml appearance. negative: Calf tenderness Neurologic/Psychiatric: positive: Oriented x3, Motor nml, Sensation nml. negative: Weakness, Sensory loss, Facial droop, Slurred/abnml speech, Depressed mood/affect - LABS Result Diagrams: 03/10/21 04:42 03/10/21 04:42 - FOLLOW UP Follow Up: you are alert and oriented plus 4 now. You may followup with your PCP in one week to review your home medications. Your CT of head reveals no acute abnormality. In the hospital, Narcan did help you in which lead to the consideration of your over-dosage of your narcotics plus your alcohol intake take the role to cause your confusion. Pt may followup medications schedule and make medical compliance. You may followup with your PCP in one week to review your home medications. Should your symptoms Return or worsen, you may present to ER or call 911 for help - TIME SPENT Time Spent in Discharge (Minutes): 30
[2021-03-10 14:21] VITALS: BP 119/63
== END 2021-03-10 13:45 | disposition home or self-care (01) ==
LOC: EDUNIT# → ED 17:25 → ICU 19:09
PROVIDERS: ADMIT Specialist; ATTEND Nurse Practitioner Gerontology
DX: T40.2X1A Poisoning by other opioids, accidental (unintentional), initial encounter (principal); R41.82 Altered mental status, unspecified; Y92.009 Unspecified place in unspecified non-institutional (private) residence as the place of occurrence of the external cause; G92.8 Other toxic encephalopathy; E86.0 Dehydration; G47.37 Central sleep apnea in conditions classified elsewhere; E11.65 Type 2 diabetes mellitus with hyperglycemia; N17.9 Acute kidney failure, unspecified; C85.90 Non-Hodgkin lymphoma, unspecified, unspecified site; I48.20 Chronic atrial fibrillation, unspecified; G89.29 Other chronic pain; E11.42 Type 2 diabetes mellitus with diabetic polyneuropathy; Z79.84 Long term (current) use of oral hypoglycemic drugs; G47.33 Obstructive sleep apnea (adult) (pediatric); Z95.1 Presence of aortocoronary bypass graft; Z95.5 Presence of coronary angioplasty implant and graft; I11.0 Hypertensive heart disease with heart failure; I50.9 Heart failure, unspecified; I25.10 Atherosclerotic heart disease of native coronary artery without angina pectoris; E78.00 Pure hypercholesterolemia, unspecified; I25.2 Old myocardial infarction; Z20.822 Contact with and (suspected) exposure to COVID-19; Z87.891 Personal history of nicotine dependence
CPT/HCPCS: 36415; 70450; 80048; 80053; 80306; 80307; 81003; 83036; 83690; 84443; 85025; 87150; 87631; 93005; 96365; 96366; 96372; 96376; 99285; A9270; G0378; G0480; J1650; J1815; 0202U; 80320; 80329; 81001; 87086

== ENCOUNTER 2021-09-03 01:23 | Outpatient (CLI) | payer MEDICARE, OTHER | END 2021-09-03 01:24 | disposition critical access hospital (66) | LOC: EMS 01:23 | DX: R06.00 Dyspnea, unspecified (principal); K30 Functional dyspepsia; R10.811 Right upper quadrant abdominal tenderness | CPT/HCPCS: A0425; A0427 ==

== ENCOUNTER 2021-09-03 01:33 | Emergency (ER) | payer MEDICARE, OTHER ==
[2021-09-03] MEDS ORDERED: LORazepam 2 MG/ML VIAL IVP STA ×2 (01:50→02:05)
[2021-09-03] MEDS ORDERED: IPRATROPIUM/ALBUTEROL 3 ML NEB INH STA (01:55)
[2021-09-03] MEDS ORDERED: methylPREDNISolone SUCCINATE 125 MG/2 ML VIAL IVP STA (01:56)
[2021-09-03] MEDS ORDERED: ALBUTEROL NEB 2.5 MG/3 ML INH STA (01:56)
[2021-09-03] MEDS ORDERED: NITROGLYCERIN 50 MG/250 ML 50 MG/250 ML BOTTLE IV STA (02:11)
[2021-09-03 02:12] LABS: BASOPHILS % (AUTO) 0.4 %; EOSINOPHILS # (AUTO) 0.1 10^3/uL (0.0-0.7); EOSINOPHILS % (AUTO) 0.9 %; HCT - HEMATOCRIT 38.4 % (42.0-52.0); HGB - HEMOGLOBIN 11.6 g/dL (14.0-18.0); LYMPHOCYTES # (AUTO) 0.3 10^3/uL (1.5-3.5); LYMPHOCYTES % (AUTO) 3.5 %; MEAN CORPUSCULAR HEMOGLOBIN 22.7 pg (27.0-31.0); MEAN CORPUSCULAR HGB CONC 30.2 g/dL (32.0-36.0); MEAN PLATELET VOLUME 8.3 fL (7.4-11.4); MONOCYTES # (AUTO) 0.3 10^3/uL (0.0-1.0); NEUTROPHILS # (AUTO) 6.9 10^3/uL (1.5-6.6); NEUTROPHILS % (AUTO) 90.9 %; PLT - PLATELET COUNT 98 10^3/uL (130-450); RED BLOOD COUNT 5.12 10^6/uL (4.70-6.10); RED CELL DISTRIBUTION WIDTH 18.3 % (12.0-15.0); WHITE BLOOD COUNT 7.5 x10^3/uL (4.8-10.8)
[2021-09-03] MEDS ORDERED: NITROGLYCERIN 2% PASTE TOP STA (02:12)
[2021-09-03 02:14] LABS: VBG BASE EXCESS -0.1 mmol/L (-2 - +2); VBG HCO3 27.3 mmol/L (23-28); VBG OXYGEN SATURATION 39.2 % (60-80); VBG PCO2 56.8 mmHg (41-51); VBG PH 7.299 (7.31-7.41); VBG PO2 24.8 mmHg (25-47)
[2021-09-03 02:18] LABS: INR 1.5 (0.8-1.2); PT - PROTHROMBIN TIME 16.3 secs (9.9-12.6)
[2021-09-03 02:35] LABS: ALBUMIN 3.6 g/dL (3.2-5.5); ALBUMIN/GLOBULIN RATIO 0.9 (1.0-2.2); ALKALINE PHOSPHATASE 151 IU/L (42-121); ALT ALANINE AMINOTRANSFERASE 32 IU/L (10-60); AST ASPARTATE AMINOTRANSFERASE 46 IU/L (10-42); BILIRUBIN,TOTAL 1.2 mg/dL (0.2-1.0); BUN - BLOOD UREA NITROGEN 26 mg/dL (6-20); CALCIUM 8.8 mg/dL (8.5-10.3); CARBON DIOXIDE - CO2 25 mmol/L (21-32); CHLORIDE 97 mmol/L (101-111); CK- CREATINE KINASE 71 IU/L (22-269); CREATININE 1.4 mg/dL (0.6-1.2); ETOH - ETHANOL < 5.0 mg/dL; GFR - MDRD 49 (>89); GLUCOSE 386 mg/dL (70-100); LIPASE 28 U/L (22-51); POTASSIUM 4.5 mmol/L (3.5-5.0); SODIUM 133 mmol/L (135-145); TOTAL PROTEIN 7.5 g/dL (6.7-8.2)
[2021-09-03 02:37] LABS: MAGNESIUM 0.9 mg/dL (1.7-2.8)
[2021-09-03 02:38] LABS: MUDS CUTOFF CONCENTRATIONS CUTOFF CONC BELOW:
[2021-09-03] MEDS ORDERED: MAGNESIUM SULFATE 2 GRAM 2 GM/50 ML BAG IV ONE (02:38)
[2021-09-03] MEDS ORDERED: FUROSEMIDE 100 MG/10 ML VIAL IVP STA (02:39)
[2021-09-03 02:41] LABS: BILIRUBIN,URINE NEGATIVE (NEGATIVE); CLARITY,URINE CLEAR (CLEAR); GLUCOSE, URINE (UA) >=1000 mg/dL (NEGATIVE); KETONES,URINE (UA) NEGATIVE (NEGATIVE); LEUKOCYTE ESTERASE, URINE NEGATIVE (NEGATIVE); NITRITE,URINE NEGATIVE (NEGATIVE); OCCULT BLOOD,URINE MODERATE (NEGATIVE); PROTEIN,URINE 100 mg/dL (NEGATIVE); UROBILINOGEN,URINE 0.2 (NORMAL) E.U./dL (NORMAL)
[2021-09-03 02:49] LABS: BACTERIA,URINE Rare /HPF (None Seen); SQUAMOUS EPITHELIAL CELL,UR RARE Squamous (<= Few); WBC,URINE 0-3 /HPF (0-3)
[2021-09-03 02:55] LABS: AMPHETAMINE SCREEN,URINE NEGATIVE (NEGATIVE); BARBITURATE SCREEN,UR NEGATIVE (NEGATIVE); BENZODIAZEPINES SCREEN, URINE NEGATIVE (NEGATIVE); COCAINE SCREEN URINE NEGATIVE (NEGATIVE); METHADONE SCREEN, URINE NEGATIVE (NEGATIVE); METHAMPHETAMINES SCREEN, URINE NEGATIVE (NEGATIVE); OPIATE SCREEN, URINE NEGATIVE (NEGATIVE); OXYCODONE SCREEN, URINE POSITIVE (NEGATIVE); PROPOXYPHENE SCREEN, URINE NEGATIVE (NEGATIVE); THC CANNABINOID SCREEN, URINE NEGATIVE (NEGATIVE); TRICYCLIC ANTIDEPRESSANT,URINE NEGATIVE (NEGATIVE)
[2021-09-03 02:59] LABS: B. PARAPERTUSSIS- RESP PCR PAN NOT DETECTED; B. PERTUSSIS- RESP PCR PANEL NOT DETECTED; C. PNEUMONIAE- RESP PCR PANEL NOT DETECTED; CORONAVIRUS 229E-RESP PCR NOT DETECTED; CORONAVIRUS HKU1-RESP PCR NOT DETECTED; CORONAVIRUS NL63-RESP PCR NOT DETECTED; CORONAVIRUS OC43-RESP PCR NOT DETECTED; HUMAN METAPNEUMOVIRUS NOT DETECTED; INFLUENZA A- RESP PCR PANEL NOT DETECTED; INFLUENZA B - RESP PCR PANEL NOT DETECTED; M. PNEUMONIAE- RESP PCR PANEL NOT DETECTED; PARAINFLUENZA VIRUS 1 NOT DETECTED; PARAINFLUENZA VIRUS 2 NOT DETECTED; PARAINFLUENZA VIRUS 3 NOT DETECTED; PARAINFLUENZA VIRUS 4 NOT DETECTED; RHINOVIRUS/ENTEROVIRUS NOT DETECTED; RSV- RESP PCR PANEL NOT DETECTED; SARS-CoV-2 -RESP PCR PANEL NOT DETECTED
[2021-09-03] MEDS ORDERED: IOVERSOL 320 100 ML VIAL IVP ONE ×2 (03:13→04:34)
[2021-09-03 03:51] LABS: ABG BASE EXCESS -0.7 mmol/L (-2.0-3.0); ABG OXYGEN SATURATION 99 % (94-98); ABG PCO2 35 mmHg (34-45); ABG PH 7.44 (7.35-7.45); ABG PO2 133 mmHg (80-100); ABG RESPIRATORY RATE 20 b/min; ABG TCO2 24.1 MMOL/L (21.0-29.0); ALLEN TEST POSITIVE
--- NOTE | 2021-09-03 04:55 | ED Physician Documentation ---
PD HPI DYSPNEA - Stated complaint Stated Complaint: SOA, ABD PAIN - Chief complaint Chief Complaint: Resp - Additional information Additional information: Patient is 75-year-old male presenting to the emergency department with acute shortness of breath. Patient presents in extremis, with confusion, acute hypoxic respiratory failure and respiratory distress. Reports has been feeling unwell for 1 day. Is unable to adequately answer questions and history is limited by his altered mentation. Review of Systems Unable to obtain: Confused PD PAST MEDICAL HISTORY - Past Medical History Past Medical History: Yes Cardiovascular: Congestive heart failure, Hypertension, High cholesterol, Coronary artery disease, [place], Atrial fibrillation Respiratory: None, CPAP use Neuro: Dementia, Other Endocrine/Autoimmune: Type 2 diabetes GI: None : None HEENT: None Psych: Depression Musculoskeletal: None Derm: None Other Past Medical History: Lft leg nerve damage - Past Surgical History Past Surgical History: Yes General: Cholecystectomy, Appendectomy Cardiovascular: CABG, Coronary stent, Angioplasty - Present Medications Home Medications: Ambulatory Orders Medication Instructions Recorded Confirmed Cyanocobalamin (Vitamin B-12) 1,000 mcg PO DAILY 03/25/15 09/03/21 [B-12] Atorvastatin Calcium 20 mg PO QPM 11/01/16 09/03/21 Omeprazole 40 mg PO QDAC 11/01/16 09/03/21 Testosterone Cypionate 200 mg IM Q14D 11/01/16 09/03/21 [Depo-Testosterone] allopurinoL [Allopurinol] 200 mg PO DAILY 11/01/16 09/03/21 Furosemide [Lasix] 40 mg PO DAILY tablet 11/14/17 09/03/21 Insulin Glargine [Lantus Solostar] 40 units SUBQ BID 11/14/17 09/03/21 Metformin HCl [Metformin ER 2,000 mg PO DAILY 11/14/17 09/03/21 Osmotic] Carvedilol [Coreg] 12.5 mg PO BID 01/04/21 09/03/21 Cyclobenzaprine [Flexeril] 10 mg PO TID PRN 01/04/21 09/03/21 DULoxetine [Cymbalta] 90 mg PO DAILY 01/04/21 09/03/21 Ferrous Gluconate [Fergon] 324 mg PO DAILYWM #30 tablet 01/04/21 09/03/21 Folic Acid 1 mg PO DAILY #30 tablet 01/04/21 09/03/21 Insulin Lispro [Insulin Lispro 15 unit SUBQ TIDWM 01/04/21 09/03/21 Harry Bryon] Lisinopril [Zestril] 40 mg PO DAILY 01/04/21 09/03/21 Pramipexole [Mirapex] 0.125 mg PO HS 01/04/21 09/03/21 Rivaroxaban [Xarelto] 20 mg PO QDDINNER 01/04/21 09/03/21 oxyCODONE ER [OxyCONTIN] 10 mg PO BID 01/04/21 09/03/21 Nitroglycerin 0.2 mg/Hr Patch 1 patch TOP DAILY 03/10/21 09/03/21 [Nitro-Dur] Tamsulosin [Flomax] 0.4 mg PO DAILY 03/10/21 09/03/21 - Allergies Allergies/Adverse Reactions: Allergies Allergy/AdvReac Type Severity Reaction Status Date / Time shellfish derived Allergy Unknown Verified 09/03/21 01:43 - Social History Does the pt smoke?: No Smoking Status: Never smoker Does the pt drink ETOH?: Yes Does the pt have substance abuse?: No - Immunizations Immunizations are current?: Yes - POLST Patient has POLST: No POLST Status: Full Code PD ED PE EXPANDED - General General: In distress, Other (Patient continuously trying to climb out of gurney. States he must leave the emergency department to "go get something to drink".) - HEENT HEENT: Atraumatic, PERRL, Ears normal - Eyes Eyes: PERRL, EOMI - Neck Neck: Supple w/out meningeal sx. No: Adenopathy - Cardiac Cardiac: Abnormal Rate, Tachy - Respiratory Respiratory: Distress, Gasping, Accessory mm use, Rales - Abdomen Abdomen: Normal Bowel sounds. No: Tender to palpation, Rebound, Guarding, Epigastric - Male Male : Normal Exam - Extremities Extremities: Normal - GCS Eye Opening: Spontaneous Motor: Localizes to Pain Verbal: Confused Total: 13 Results - Vitals Vitals: Vital Signs - 24 hr 09/03/21 09/03/21 09/03/21 01:43 02:16 02:21 Temperature 37.1 C Heart Rate 131 H 132 H 146 H Respiratory 35 H 43 H 46 H Rate Blood Pressure 191/93 H 160/121 H O2 Saturation 94 100 09/03/21 09/03/21 09/03/21 02:22 02:24 02:25 Temperature Heart Rate 131 H 146 H 129 H Respiratory 38 H 46 H 32 H Rate Blood Pressure 175/93 H 173/87 H O2 Saturation 100 100 09/03/21 09/03/21 09/03/21 02:30 02:31 02:39 Temperature Heart Rate 125 H 127 H 125 H Respiratory 32 H 38 H Rate Blood Pressure 163/78 H 146/84 H O2 Saturation 98 98 09/03/21 09/03/21 09/03/21 02:53 03:15 03:16 Temperature Heart Rate 124 H 120 H 122 H Respiratory 36 H 35 H 34 H Rate Blood Pressure 137/75 H 121/69 129/75 O2 Saturation 100 98 98 09/03/21 09/03/21 09/03/21 03:23 03:30 04:17 Temperature Heart Rate 122 H 121 H 115 H Respiratory 35 H 36 H 33 H Rate Blood Pressure 114/69 128/77 168/98 H O2 Saturation 99 98 94 09/03/21 09/03/21 09/03/21 04:30 04:52 05:00 Temperature Heart Rate 113 H 112 H 112 H Respiratory 21 27 H 31 H Rate Blood Pressure 152/77 H 147/72 H 153/72 H O2 Saturation 94 94 93 09/03/21 09/03/21 09/03/21 05:26 05:27 05:30 Temperature Heart Rate 112 H 112 H 112 H Respiratory 28 H 31 H Rate Blood Pressure 159/74 H 148/75 H O2 Saturation 96 96 09/03/21 09/03/21 09/03/21 06:00 06:16 06:30 Temperature Heart Rate 111 H 111 H 111 H Respiratory 32 H 31 H 32 H Rate Blood Pressure 164/75 H 126/69 158/75 H O2 Saturation 97 96 96 09/03/21 09/03/21 09/03/21 06:46 06:57 07:10 Temperature 37 C Heart Rate 110 H 108 H 110 H Respiratory 30 H 31 H Rate Blood Pressure 147/73 H 145/75 H O2 Saturation 96 97 Oxygen O2 Source [] Room air O2 Source [] Room air O2 Source BIPAP Oxygen Flow Rate 3 - EKG (time done) 0221 Rate: Rate (enter#) (128) Rhythm: NSR [place]: LAD Intervals: LBBB Ischemia: Non specific changes Compare to prior EKG: Unchanged from prior EKG 0625 Rate: Rate (enter#) (109) [place]: LAD Intervals: LBBB QRS: Normal Ischemia: Normal ST segments Compare to prior EKG: Unchanged from prior EKG - Labs Labs: Laboratory Tests 09/03/21 09/03/21 09/03/21 01:55 02:07 02:07 WBC 7.5 RBC 5.12 Hgb 11.6 L Hct 38.4 L MCV 75.0 L MCH 22.7 L MCHC 30.2 L RDW 18.3 H Plt Count 98 L MPV 8.3 Neut # (Auto) 6.9 H Lymph # (Auto) 0.3 L [place] # (Auto) 0.3 Eos # (Auto) 0.1 Baso # (Auto) 0.0 Absolute Nucleated RBC 0.00 Nucleated RBC % 0.0 PT 16.3 H INR 1.5 H Bld Gas Analysis Time Sample Site ABG pH ABG pCO2 ABG pO2 ABG HCO3 ABG Total CO2 ABG O2 Saturation ABG Base Excess Stas Test VBG pH VBG pCO2 VBG pO2 VBG HCO3 VBG Total CO2 VBG O2 Saturation VBG Base Excess Respiration Rate O2 Delivery Device FiO2 EPAP IPAP Sodium Potassium Chloride Carbon Dioxide Anion Gap BUN Creatinine Estimated GFR (MDRD) Glucose Lactic Acid Calcium Magnesium Total Bilirubin AST ALT Alkaline Phosphatase Total Creatine Kinase Troponin I High Sens B-Natriuretic Peptide Total Protein Albumin Globulin Albumin/Globulin Ratio Lipase TSH Urine Color Urine Clarity Urine pH Ur Specific [place] Urine Protein Urine Glucose (UA) Urine Ketones Urine Occult Blood Urine Nitrite Urine Bilirubin Urine Urobilinogen Ur Leukocyte Esterase Urine RBC Urine WBC Ur Squamous Epith Cells Urine Bacteria Ur Microscopic Review Urine Culture Comments Nasal Adenovirus (PCR) NOT DETECTED Nasal B. parapertussis DNA (PCR) NOT DETECTED Nasal Coronavir 229E PCR NOT DETECTED Nasal Coronavir HKU1 PCR NOT DETECTED Nasal Coronavir NL63 PCR NOT DETECTED Nasal Coronavir OC43 PCR NOT DETECTED Nasal Enterovir/Rhinovir PCR NOT DETECTED Nasal Influenza B PCR NOT DETECTED Nasal Influenza A PCR NOT DETECTED Nasal Parainfluen 1 PCR NOT DETECTED Nasal Parainfluen 2 PCR NOT DETECTED Nasal Parainfluen 3 PCR NOT DETECTED Nasal Parainfluen 4 PCR NOT DETECTED Nasal RSV (PCR) NOT DETECTED Nasal B.pertussis DNA PCR NOT DETECTED Nasal C.pneumoniae (PCR) NOT DETECTED Alex Human Metapneumo PCR NOT DETECTED Nasal M.pneumoniae (PCR) NOT DETECTED Nasal SARS-CoV-2 (PCR) NOT DETECTED Urine Opiates Screen Ur Oxycodone Screen Urine Methadone Screen Ur Propoxyphene Screen Ur Barbiturates Screen Ur Tricyclics Screen Ur Phencyclidine Scrn Ur Amphetamine Screen U Methamphetamines Scrn U Benzodiazepines Scrn Urine Cocaine Screen U Cannabinoids Screen Ethyl Alcohol 09/03/21 09/03/21 09/03/21 02:07 02:07 02:07 WBC RBC Hgb Hct MCV MCH MCHC RDW Plt Count MPV Neut # (Auto) Lymph # (Auto) [place] # (Auto) Eos # (Auto) Baso # (Auto) Absolute Nucleated RBC Nucleated RBC % PT INR Bld Gas Analysis Time Sample Site ABG pH ABG pCO2 ABG pO2 ABG HCO3 ABG Total CO2 ABG O2 Saturation ABG Base Excess Stas Test VBG pH VBG pCO2 VBG pO2 VBG HCO3 VBG Total CO2 VBG O2 Saturation VBG Base Excess Respiration Rate O2 Delivery Device FiO2 EPAP IPAP Sodium 133 L Potassium 4.5 Chloride 97 L Carbon Dioxide 25 Anion Gap 11.0 BUN 26 H Creatinine 1.4 H Estimated GFR (MDRD) 49 L Glucose 386 H Lactic Acid 2.1 Calcium 8.8 Magnesium 0.9 L* Total Bilirubin 1.2 H AST 46 H ALT 32 Alkaline Phosphatase 151 H Total Creatine Kinase 71 Troponin I High Sens B-Natriuretic Peptide Total Protein 7.5 Albumin 3.6 Globulin 3.9 Albumin/Globulin Ratio 0.9 L Lipase 28 TSH 1.14 Urine Color Urine Clarity Urine pH Ur Specific [place] Urine Protein Urine Glucose (UA) Urine Ketones Urine Occult Blood Urine Nitrite Urine Bilirubin Urine Urobilinogen Ur Leukocyte Esterase Urine RBC Urine WBC Ur Squamous Epith Cells Urine Bacteria Ur Microscopic Review Urine Culture Comments Nasal Adenovirus (PCR) Nasal B. parapertussis DNA (PCR) Nasal Coronavir 229E PCR Nasal Coronavir HKU1 PCR Nasal Coronavir NL63 PCR Nasal Coronavir OC43 PCR Nasal Enterovir/Rhinovir PCR Nasal Influenza B PCR Nasal Influenza A PCR Nasal Parainfluen 1 PCR Nasal Parainfluen 2 PCR Nasal Parainfluen 3 PCR Nasal Parainfluen 4 PCR Nasal RSV (PCR) Nasal B.pertussis DNA PCR Nasal C.pneumoniae (PCR) Alex Human Metapneumo PCR Nasal M.pneumoniae (PCR) Nasal SARS-CoV-2 (PCR) Urine Opiates Screen Ur Oxycodone Screen Urine Methadone Screen Ur Propoxyphene Screen Ur Barbiturates Screen Ur Tricyclics Screen Ur Phencyclidine Scrn Ur Amphetamine Screen U Methamphetamines Scrn U Benzodiazepines Scrn Urine Cocaine Screen U Cannabinoids Screen Ethyl Alcohol < 5.0 09/03/21 09/03/21 09/03/21 02:07 02:07 02:07 WBC RBC Hgb Hct MCV MCH MCHC RDW Plt Count MPV Neut # (Auto) Lymph # (Auto) [place] # (Auto) Eos # (Auto) Baso # (Auto) Absolute Nucleated RBC Nucleated RBC % PT INR Bld Gas Analysis Time Sample Site ABG pH ABG pCO2 ABG pO2 ABG HCO3 ABG Total CO2 ABG O2 Saturation ABG Base Excess Stas Test VBG pH 7.299 L VBG pCO2 56.8 H VBG pO2 24.8 L VBG HCO3 27.3 VBG Total CO2 29.0 VBG O2 Saturation 39.2 L VBG Base Excess -0.1 Respiration Rate O2 Delivery Device FiO2 EPAP IPAP Sodium Potassium Chloride Carbon Dioxide Anion Gap BUN Creatinine Estimated GFR (MDRD) Glucose Lactic Acid Calcium Magnesium Total Bilirubin AST ALT Alkaline Phosphatase Total Creatine Kinase Troponin I High Sens 35.2 H* B-Natriuretic Peptide 319 H Total Protein Albumin Globulin Albumin/Globulin Ratio Lipase TSH Urine Color Urine Clarity Urine pH Ur Specific [place] Urine Protein Urine Glucose (UA) Urine Ketones Urine Occult Blood Urine Nitrite Urine Bilirubin Urine Urobilinogen Ur Leukocyte Esterase Urine RBC Urine WBC Ur Squamous Epith Cells Urine Bacteria Ur Microscopic Review Urine Culture Comments Nasal Adenovirus (PCR) Nasal B. parapertussis DNA (PCR) Nasal Coronavir 229E PCR Nasal Coronavir HKU1 PCR Nasal Coronavir NL63 PCR Nasal Coronavir OC43 PCR Nasal Enterovir/Rhinovir PCR Nasal Influenza B PCR Nasal Influenza A PCR Nasal Parainfluen 1 PCR Nasal Parainfluen 2 PCR Nasal Parainfluen 3 PCR Nasal Parainfluen 4 PCR Nasal RSV (PCR) Nasal B.pertussis DNA PCR Nasal C.pneumoniae (PCR) Alex Human Metapneumo PCR Nasal M.pneumoniae (PCR) Nasal SARS-CoV-2 (PCR) Urine Opiates Screen Ur Oxycodone Screen Urine Methadone Screen Ur Propoxyphene Screen Ur Barbiturates Screen Ur Tricyclics Screen Ur Phencyclidine Scrn Ur Amphetamine Screen U Methamphetamines Scrn U Benzodiazepines Scrn Urine Cocaine Screen U Cannabinoids Screen Ethyl Alcohol 09/03/21 09/03/21 09/03/21 02:35 03:45 05:33 WBC RBC Hgb Hct MCV MCH MCHC RDW Plt Count MPV Neut # (Auto) Lymph # (Auto) [place] # (Auto) Eos # (Auto) Baso # (Auto) Absolute Nucleated RBC Nucleated RBC % PT INR Bld Gas Analysis Time 0347 Sample Site RIGHT RADIAL ABG pH 7.44 ABG pCO2 35 ABG pO2 133 H ABG HCO3 23.0 ABG Total CO2 24.1 ABG O2 Saturation 99 H ABG Base Excess -0.7 Stas Test POSITIVE VBG pH VBG pCO2 VBG pO2 VBG HCO3 VBG Total CO2 VBG O2 Saturation VBG Base Excess Respiration Rate 20 O2 Delivery Device BiPAP FiO2 55.00 EPAP 6 IPAP 12 Sodium Potassium Chloride Carbon Dioxide Anion Gap BUN Creatinine Estimated GFR (MDRD) Glucose Lactic Acid Calcium Magnesium Total Bilirubin AST ALT Alkaline Phosphatase Total Creatine Kinase Troponin I High Sens 1877.7 H* B-Natriuretic Peptide Total Protein Albumin Globulin Albumin/Globulin Ratio Lipase TSH Urine Color YELLOW Urine Clarity CLEAR Urine pH 6.0 Ur Specific [place] 1.025 Urine Protein 100 H Urine Glucose (UA) >=1000 H Urine Ketones NEGATIVE Urine Occult Blood MODERATE H Urine Nitrite NEGATIVE Urine Bilirubin NEGATIVE Urine Urobilinogen 0.2 (NORMAL) Ur Leukocyte Esterase NEGATIVE Urine RBC 11-25 H Urine WBC 0-3 Ur Squamous Epith Cells RARE Squamous Urine Bacteria Rare Ur Microscopic Review INDICATED Urine Culture Comments NOT INDICATED Nasal Adenovirus (PCR) Nasal B. parapertussis DNA (PCR) Nasal Coronavir 229E PCR Nasal Coronavir HKU1 PCR Nasal Coronavir NL63 PCR Nasal Coronavir OC43 PCR Nasal Enterovir/Rhinovir PCR Nasal Influenza B PCR Nasal Influenza A PCR Nasal Parainfluen 1 PCR Nasal Parainfluen 2 PCR Nasal Parainfluen 3 PCR Nasal Parainfluen 4 PCR Nasal RSV (PCR) Nasal B.pertussis DNA PCR Nasal C.pneumoniae (PCR) Alex Human Metapneumo PCR Nasal M.pneumoniae (PCR) Nasal SARS-CoV-2 (PCR) Urine Opiates Screen NEGATIVE Ur Oxycodone Screen POSITIVE H Urine Methadone Screen NEGATIVE Ur Propoxyphene Screen NEGATIVE Ur Barbiturates Screen NEGATIVE Ur Tricyclics Screen NEGATIVE Ur Phencyclidine Scrn NEGATIVE Ur Amphetamine Screen NEGATIVE U Methamphetamines Scrn NEGATIVE U Benzodiazepines Scrn NEGATIVE Urine Cocaine Screen NEGATIVE U Cannabinoids Screen NEGATIVE Ethyl Alcohol PD MEDICAL DECISION MAKING - ED course Complexity details: reviewed old records, reviewed results, considered differential ED course: Patient is 75-year-old male presenting to the emergency department with acute hypoxic respiratory failure, confusion and agitation. Past medical significant for coronary artery disease, A. fib on Xarelto, congestive heart failure. Presented in acute respiratory distress. Was agitated on arrival, given IV Ativan. Escalated initially from supplemental oxygen via nasal cannula to nonrebreather and eventual BiPAP. Bedside chest x-ray concerning for acute pulmonary edema. Initiated topical and IV nitrates. Initial EKG demonstrated stable left bundle branch block without indications of acute cardiac ischemia. Initial labs were positive for significant hypomagnesemia and magnesium repletion initiated in the emergency department. Additionally patient had an elevated BNP and a very mild elevation in high-sensitivity troponin. I did obtain CT scans of his head, chest, abdomen and pelvis. Most prominent finding there in was prominent right-sided pleural effusion and pulmonary edema. Patient initial blood gas demonstrated a hypoxic and hypercapnic respiratory failure however ABG which was obtained approximately 1 hour after the initiation of BiPAP demonstrated a mild respiratory alkalosis. Nitrates were discontinued while in the emergency department. Repeat troponin however was significantly elevated at greater than 1800. Serial EKGs unchanged. I did discuss the matter with the transfer center at the [facility]. At this time will be signing the patient out to the oncoming physician, please see their documentation for further detail. - Critical Care Time(min): 31 Time Includes: Direct patient care, Review records, Reassess patient, Document care Data interpretation: Labs, ABG, CXR, Prior EKG Procedures included in critical care time: Peripheral IV Departure - Departure Disposition: 66 [facility] DC/Xfer Clinical Impression: Pulmonary edema, NSTEMI (non-ST elevated myocardial infarction), Hypomagnesemia
[2021-09-03] MEDS ORDERED: ACETAMINOPHEN 325 MG TABLET PO PRN (05:51)
[2021-09-03] MEDS ORDERED: SODIUM CHLORIDE FLUSH 0.9% 10 ML SYRINGE IVP PRN (05:51)
--- NOTE | 2021-09-03 06:13 | HISTORY & PHYSICAL EXAMINATION ---
Chief Complaint - Chief Complaint Chief Complaint: dyspnea and hypoxia History of Present Illness - Admitted From Admitted From:: [facility] ED - History Obtained From Records Reviewed: yes History obtained from: ED physician's note Exam Limitations: altered mental status History - Past Medical History Cardiovascular: reports: Congestive heart failure, Hypertension, High cholesterol, Coronary artery disease, [place], Atrial fibrillation Respiratory: reports: None, CPAP use Neuro: reports: Dementia, Other Endocrine/Autoimmune: reports: Type 2 diabetes GI: reports: None : reports: None HEENT: reports: None Psych: reports: Depression Musculoskeletal: reports: None Derm: reports: None MRSA Hx?: No Other Past Medical History: Lft leg nerve damage - Past Surgical History General: reports: Cholecystectomy, Appendectomy Cardiovascular: reports: CABG, Coronary stent, Angioplasty - Family & Social History Family History Comment/Other: The patient was adopted and does not know his family history. Living Situation: With spouse/s.o. Social History Notes: The patient quit smoking cigarettes at the age of 40 with his first MS. He has no illicit drug use history. He drinks alcohol occaisionally. He lives with his . - Substance History Use: Uses substance without health or social issues: Alcohol - POLST Patient has POLST: No POLST Status: Full Code Meds/Allgy - Home Medications Home Medications: Ambulatory Orders Medication Instructions Recorded Confirmed Cyanocobalamin (Vitamin B-12) 1,000 mcg PO DAILY 03/25/15 09/03/21 [B-12] Atorvastatin Calcium 20 mg PO QPM 11/01/16 09/03/21 Omeprazole 40 mg PO QDAC 11/01/16 09/03/21 Testosterone Cypionate 200 mg IM Q14D 11/01/16 09/03/21 [Depo-Testosterone] allopurinoL [Allopurinol] 200 mg PO DAILY 11/01/16 09/03/21 Furosemide [Lasix] 40 mg PO DAILY tablet 11/14/17 09/03/21 Insulin Glargine [Lantus Solostar] 40 units SUBQ BID 11/14/17 09/03/21 Metformin HCl [Metformin ER 2,000 mg PO DAILY 11/14/17 09/03/21 Osmotic] Carvedilol [Coreg] 12.5 mg PO BID 01/04/21 09/03/21 Cyclobenzaprine [Flexeril] 10 mg PO TID PRN 01/04/21 09/03/21 DULoxetine [Cymbalta] 90 mg PO DAILY 01/04/21 09/03/21 Ferrous Gluconate [Fergon] 324 mg PO DAILYWM #30 tablet 01/04/21 09/03/21 Folic Acid 1 mg PO DAILY #30 tablet 01/04/21 09/03/21 Insulin Lispro [Insulin Lispro 15 unit SUBQ TIDWM 01/04/21 09/03/21 Junior Slater] Lisinopril [Zestril] 40 mg PO DAILY 01/04/21 09/03/21 Pramipexole [Mirapex] 0.125 mg PO HS 01/04/21 09/03/21 Rivaroxaban [Xarelto] 20 mg PO QDDINNER 01/04/21 09/03/21 oxyCODONE ER [OxyCONTIN] 10 mg PO BID 01/04/21 09/03/21 Nitroglycerin 0.2 mg/Hr Patch 1 patch TOP DAILY 03/10/21 09/03/21 [Nitro-Dur] Tamsulosin [Flomax] 0.4 mg PO DAILY 03/10/21 09/03/21 - Allergies Allergies/Adverse Reactions: Allergies Allergy/AdvReac Type Severity Reaction Status Date / Time shellfish derived Allergy Unknown Verified 09/03/21 01:43 Exam - Vital Signs Vital Signs: Vital Signs x48h Temp Pulse Resp BP Pulse Ox 09/03/21 06:00 111 H 32 H 164/75 H 97 09/03/21 05:30 112 H 31 H 148/75 H 96 09/03/21 05:27 112 H 28 H 159/74 H 96 09/03/21 05:26 112 H 09/03/21 05:00 112 H 31 H 153/72 H 93 09/03/21 04:52 112 H 27 H 147/72 H 94 09/03/21 04:30 113 H 21 152/77 H 94 09/03/21 04:17 115 H 33 H 168/98 H 94 09/03/21 03:30 121 H 36 H 128/77 98 09/03/21 03:23 122 H 35 H 114/69 99 09/03/21 03:16 122 H 34 H 129/75 98 09/03/21 03:15 120 H 35 H 121/69 98 09/03/21 02:53 124 H 36 H 137/75 H 100 09/03/21 02:39 125 H 38 H 146/84 H 98 09/03/21 02:31 127 H 09/03/21 02:30 125 H 32 H 163/78 H 98 09/03/21 02:25 129 H 32 H 173/87 H 100 09/03/21 02:24 146 H 46 H 09/03/21 02:22 131 H 38 H 175/93 H 100 09/03/21 02:21 146 H 46 H 09/03/21 02:16 132 H 43 H 160/121 H 100 09/03/21 01:43 37.1 C 131 H 35 H 191/93 H 94 Conclusion/Plan - Lab Results Fish Bones: 09/03/21 02:07 09/03/21 02:07
[2021-09-03] MEDS ORDERED: NITROGLYCERIN 2% PASTE TOP SCH (07:00)
--- NOTE | 2021-09-03 07:37 | CT Report ---
PROCEDURE: HEAD WO INDICATIONS: AMS TECHNIQUE: Noncontrast 4.5 mm thick angled axial sections acquired from the foramen magnum to the vertex. For r adiation dose reduction, the following was used: automated exposure control, adjustment of mA and/or kV according to patient size. COMPARISON: None. FINDINGS: Image quality: Degraded by patient motion artifact. CSF spaces: Basal cisterns are patent. No extra-axial fluid collections. Ventricles are normal in size and shape. Brain: No midline shift. No intracranial masses or hemorrhage. Garcia-white matter interface is norm al. Skull and face: Calvarium and visualized facial bones are intact, without suspicious lesions. Sinuses: Mucosal thickening noted in the left maxillary sinus. Mastoids are clear. IMPRESSION: No acute intracranial disease process within limitations related to motion artifact.. Reviewed by: Sharmaine Ag MD, PhD on 09/03/2021 7:35 AM PDT Approved by: Sharmaine Ag MD, PhD on 09/03/2021 7:35 AM PDT Station ID: [id number]
--- NOTE | 2021-09-03 08:22 | CT Report ---
PROCEDURE: ANGIO CHEST W/WO INDICATIONS: r/o PE CONTRAST: IV CONTRAST: Optiray 320 ml: 80 PO CONTRAST: *NO PO CONTRAST TECHNIQUE: After the administration of intravenous contrast, 2 mm axial images were acquired from the pulmonary apices to the posterior costophrenic angles during the arterial phase. In addition, 1 mm lung kernel and 5 mm soft tissue kernel reconstructions were performed. 3-dimensional coronal oblique maximum int ensity projection (MIP) reformats, 8 mm axial MIP, and 5 mm coronal and sagittal MPR reformats were t hen performed through the thorax. For radiation dose reduction, the following was used: automated exp osure control, adjustment of mA and/or kV according to patient size. COMPARISON: 12-20 CT examination FINDINGS: Image quality: Limited evaluation by contrast bolus finding of motion artifact. Pulmonary arteries: Pulmonary arteries are normal in size, and demonstrate no definite intraluminal filling defects to suggest central pulmonary embolism. Lungs and pleura: Small right and trace left pleural effusions. No pneumothoraces. There is mild diff use groundglass pulmonary opacity which demonstrates partially geographic distribution. Bibasilar ate lectasis versus pneumonia is present. Central and peripheral airways are patent. Mediastinum: Heart size is normal, without pericardial effusion. Moderate calcification of the danny nary vasculature. No mediastinal or hilar adenopathy. Aortic repair has been performed. Thoracic aor ta is normal in caliber and enhancement. Esophagus is normal in caliber, without hiatal hernia. Bones and chest wall: Median sternotomy. No suspicious bony lesions. Ribs and thoracic spine appear intact throughout. No axillary or supraclavicular adenopathy. The thyroid is normal in size and the re are no incidental findings. Abdomen: Visualized upper abdominal solid organs appear normal in the early arterial phase of enhanc ement. IMPRESSION: 1. No pulmonary embolus. 2. Bilateral pneumonia versus edema. 3. Small right greater than left pleural effusion. 4. Coronary artery disease. 5. Concordant with preliminary interpretation. Reviewed by: Edwin Medina MD on 09/03/2021 8:20 AM PDT Approved by: Edwin Medina MD on 09/03/2021 8:20 AM PDT Station ID: [id number]
--- NOTE | 2021-09-03 08:23 | XRAY Report ---
PROCEDURE: Chest 1 View X-Ray INDICATIONS: Chest pain TECHNIQUE: One view of the chest was acquired. COMPARISON: 01/03/2021 FINDINGS: Cardiomegaly. Increased interstitial markings and cephalization of pulmonary vessels. There may be al veolar infiltrates in the right lung base. No definite pleural effusion or findings of pneumothorax. Median sternotomy changes from CABG. IMPRESSION: Cardiomegaly with moderate pulmonary edema. No significant change from preliminary report. Reviewed by: Tyrone Guidry MD on 09/03/2021 8:22 AM PDT Approved by: Tyrone Guidry MD on 09/03/2021 8:22 AM PDT Station ID: [id number]
--- NOTE | 2021-09-03 08:49 | CT Report ---
PROCEDURE: Abdomen/Pelvis W INDICATIONS: abd pain CONTRAST: IV CONTRAST: Optiray 320 ml: 80 PO CONTRAST: *NO PO CONTRAST TECHNIQUE: After the administration of intravenous contrast, 5 mm thick sections acquired from the diaphragms to the symphysis. 5 mm thick coronal and sagittal reformats were acquired. For radiation dose reducti on, the following was used: automated exposure control, adjustment of mA and/or kV according to vanda ent size. COMPARISON: Same day CT pulmonary angiogram. CT abdomen and pelvis 11/13/2017. FINDINGS: Image quality: Poor. Motion artifact. ABDOMEN: Lung bases: Small bilateral pleural effusions, right greater than left. Small consolidation at the ri ght lung base. This has the appearance of compressive atelectasis. Image quality is degraded by motio n artifact. TAVR stent. Post median sternotomy and CABG. Solid organs: Liver and spleen are normal in size and enhancement. Well-circumscribed cyst in the ri ght lobe of the liver. Tiny nodule at the posterior and inferior margin of the liver, (/), unchang ed. Gallbladder is absent. Biliary system is non dilated. Pancreas enhances normally. No adrenal n odules. Kidneys demonstrate normal size and enhancement, without hydronephrosis. Small benign-appear ing cysts appear unchanged in size. Peritoneum and bowel: Bowel loops demonstrate normal wall thickness and caliber. A few colonic diver ticuli. The appendix is not identified. No free fluid or air. Nodes and vessels: No retroperitoneal or mesenteric adenopathy by size criteria. Aorta and inferior vena cava are normal in size. Circumferential calcified atherosclerotic plaque. Duplicated left corby l vein. Miscellaneous: No ventral hernias. PELVIS: Genitourinary: Bladder is decompressed with Restrepo catheter. Vas deferens calcifications. Miscellaneous: No inguinal hernias or adenopathy. Bones: No suspicious bony lesions. No vertebral body compression fractures. Multilevel DDD. Bilater al L5 pars defect. IMPRESSION: 1. No acute abnormality in the abdomen or pelvis is identified. No small bowel obstruction. No free f luid. 2. Small bilateral pleural effusions. This report is concordant with the overnight preliminary interpretation. Reviewed by: Abel Maurer MD on 09/03/2021 8:48 AM PDT Approved by: Abel Maurer MD on 09/03/2021 8:48 AM PDT Station ID: [id number]
[2021-09-03] MEDS ORDERED: SODIUM CHLORIDE FLUSH 0.9% 10 ML SYRINGE IVP SCH (09:00)
[2021-09-03] MEDS ORDERED: VANCOMYCIN INJ 1,000 GM in SODIUM CHLORIDE 0.9% 500 ML IV STA (11:12)
[2021-09-03] MEDS ORDERED: HEPARIN 25000UNITS/500ML (D5W) 25,000 UNIT/500 ML BAG IV SCH (12:00)
[2021-09-03] MEDS ORDERED: VANCOMYCIN INJ 2 GM, VANCOMYCIN INJ 500 MG in SODIUM CHLORIDE 0.9% 500 ML IV ONE ×2 (12:00→12:30)
[2021-09-03] MEDS ORDERED: FUROSEMIDE 40 MG/4 ML VIAL IVP SCH (14:00)
[2021-09-03 15:48] VITALS: BP 165/86
== END 2021-09-03 15:53 | disposition short-term general hospital (02) ==
LOC: EDUNIT# → ED 01:33 → UNDOADMIN 05:51 → ICU 05:51 → ED 15:53
DX: I11.0 Hypertensive heart disease with heart failure (principal); I50.9 Heart failure, unspecified; E11.9 Type 2 diabetes mellitus without complications; Z79.4 Long term (current) use of insulin; I48.91 Unspecified atrial fibrillation; Z79.01 Long term (current) use of anticoagulants; Z95.5 Presence of coronary angioplasty implant and graft; Z95.1 Presence of aortocoronary bypass graft; I21.4 Non-ST elevation (NSTEMI) myocardial infarction; E83.42 Hypomagnesemia; R77.8 Other specified abnormalities of plasma proteins; Z20.822 Contact with and (suspected) exposure to COVID-19
CPT/HCPCS: 36415; 36600; 70450; 71045; 71275; 74177; 80053; 80306; 81001; 82550; 82803; 83605; 83690; 83735; 83880; 84443; 84484; 85025; 85610; 87040; 87150; 87631; 93005; 94640; 94660; 96365; 96366; 96367; 96375; 99285; 99291; A9270; G0480; J1940; J2060; J3370; Q9967; 0202U; 80320; 81003; 87086; 87181

== ENCOUNTER 2021-09-19 15:12 | Outpatient (CLI) | payer MEDICARE, OTHER ==
[2021-09-19 15:24] LABS: BASOPHILS % (AUTO) 0.7 %; EOSINOPHILS # (AUTO) 0.1 10^3/uL (0.0-0.7); EOSINOPHILS % (AUTO) 1.3 %; HCT - HEMATOCRIT 27.9 % (42.0-52.0); HGB - HEMOGLOBIN 8.4 g/dL (14.0-18.0); LYMPHOCYTES # (AUTO) 0.8 10^3/uL (1.5-3.5); LYMPHOCYTES % (AUTO) 13.9 %; MEAN CORPUSCULAR HEMOGLOBIN 23.5 pg (27.0-31.0); MEAN CORPUSCULAR HGB CONC 30.1 g/dL (32.0-36.0); MEAN CORPUSCULAR VOLUME 77.9 fL (80.0-94.0); MEAN PLATELET VOLUME 9.1 fL (7.4-11.4); MONOCYTES # (AUTO) 0.5 10^3/uL (0.0-1.0); NEUTROPHILS # (AUTO) 4.6 10^3/uL (1.5-6.6); NEUTROPHILS % (AUTO) 75.9 %; PLT - PLATELET COUNT 159 10^3/uL (130-450); RED BLOOD COUNT 3.58 10^6/uL (4.70-6.10); RED CELL DISTRIBUTION WIDTH 19.2 % (12.0-15.0)
[2021-09-19 15:59] LABS: ALBUMIN 2.9 g/dL (3.2-5.5); ALBUMIN/GLOBULIN RATIO 0.8 (1.0-2.2); ALKALINE PHOSPHATASE 72 IU/L (42-121); ALT ALANINE AMINOTRANSFERASE < 10 IU/L (10-60); AST ASPARTATE AMINOTRANSFERASE 22 IU/L (10-42); BILIRUBIN,TOTAL 0.7 mg/dL (0.2-1.0); BUN - BLOOD UREA NITROGEN 26 mg/dL (6-20); CALCIUM 8.2 mg/dL (8.5-10.3); CARBON DIOXIDE - CO2 27 mmol/L (21-32); CHLORIDE 96 mmol/L (101-111); CREATININE 1.5 mg/dL (0.6-1.2); CRP - C-REACTIVE PROTEIN 3.4 mg/dL (0-1.0); GFR - MDRD 46 (>89); GLUCOSE 89 mg/dL (70-100); POTASSIUM 3.8 mmol/L (3.5-5.0); SODIUM 134 mmol/L (135-145); TOTAL PROTEIN 6.5 g/dL (6.7-8.2)
== END 2021-09-19 15:13 | disposition home or self-care (01) ==
LOC: LAB 15:12 → LAB.R 15:13
PROVIDERS: ATTEND Family Medicine
DX: R78.81 Bacteremia (principal)
CPT/HCPCS: 80053; 85025; 85651; 86140

== ENCOUNTER 2021-09-30 12:52 | Outpatient (CLI) | payer MEDICARE, OTHER | END 2021-09-30 12:53 | disposition critical access hospital (66) | LOC: EMS 12:52 | DX: R55 Syncope and collapse (principal); R07.81 Pleurodynia; W18.39XA Other fall on same level, initial encounter; Y93.E6 Activity, residential relocation; Y92.009 Unspecified place in unspecified non-institutional (private) residence as the place of occurrence of the external cause; Z79.01 Long term (current) use of anticoagulants | CPT/HCPCS: A0425; A0429 ==

== ENCOUNTER 2021-09-30 12:53 | Emergency (ER) | payer MEDICARE, OTHER ==
--- NOTE | 2021-09-30 13:16 | ED Physician Documentation ---
PD HPI HEAD INJURY - Stated complaint Stated Complaint: SYNCOPAL W/HEAD STRIKE - Chief complaint Chief Complaint: Neuro - History obtained from History obtained from: Patient, EMS - History of Present Illness Mechanism of head injury: Fell Where head injury occurred: Home Timing - onset: Today Location of injury: Back Quality of pain: Other (mild) Associated symptoms: No: LOC, AMS, Amnesia, Nausea / vomiting, Neck pain, Paresthesias, Seizures, Ear drainage, Nasal drainage Symptoms improve with: Rest Symptoms worsen with: Palpation Contributing factors: Anticoagulated Similar symptoms before: Diagnosis (syncope from dehydration and sepsis) Recently seen: Admitted Review of Systems Constitutional: denies: Fever Eyes: denies: Decreased vision Ears: denies: Ear pain Nose: denies: Congestion Throat: denies: Sore throat Cardiac: denies: Chest pain / pressure, Palpitations Respiratory: denies: Dyspnea, Cough GI: denies: Abdominal Pain, Nausea, Vomiting, Constipation, Diarrhea : reports: Dysuria, Frequency Skin: denies: Rash, Lesions, Abrasion (s) Musculoskeletal: denies: Neck pain, Back pain, Extremity pain Neurologic: reports: Head injury. denies: Generalized weakness, Focal weakness, Numbness, LOC PD PAST MEDICAL HISTORY - Past Medical History Past Medical History: Yes Cardiovascular: Congestive heart failure, Hypertension, High cholesterol, Coronary artery disease, [place], Atrial fibrillation Respiratory: None, CPAP use Neuro: Dementia, Other Endocrine/Autoimmune: Type 2 diabetes GI: None : None HEENT: None Psych: Depression Musculoskeletal: None Derm: None Other Past Medical History: Lymphoma - Past Surgical History Past Surgical History: Yes General: Cholecystectomy, Appendectomy Cardiovascular: CABG, Coronary stent, Angioplasty - Present Medications Home Medications: Ambulatory Orders Medication Instructions Recorded Confirmed Atorvastatin Calcium 40 mg PO QPM 11/01/16 09/13/21 Omeprazole 40 mg PO QDAC 11/01/16 09/13/21 Testosterone Cypionate 200 mg IM Q14D 11/01/16 09/13/21 [Depo-Testosterone] Metformin HCl [Metformin ER 2,000 mg PO DAILY 11/14/17 09/13/21 Osmotic] Carvedilol [Coreg] 12.5 mg PO BID 01/04/21 09/13/21 DULoxetine [Cymbalta] 90 mg PO DAILY 01/04/21 09/13/21 Ferrous Gluconate [Fergon] 324 mg PO DAILYWM #30 tablet 01/04/21 09/12/21 Pramipexole [Mirapex] 0.125 mg PO HS 01/04/21 09/12/21 oxyCODONE ER [OxyCONTIN] 10 mg PO BID 01/04/21 09/12/21 Tamsulosin [Flomax] 0.4 mg PO DAILY 03/10/21 09/12/21 Amiodarone [Pacerone] 400 mg PO BID 09/12/21 09/13/21 Cyanocobalamin/Folic Acid 1 tab PO DAILY 09/12/21 09/12/21 [P70-Krtei Acid 2500-400 Mcg Tb] Empagliflozin [Jardiance] 12.5 mg PO DAILY 09/12/21 09/13/21 Insulin Glargine [Lantus Solostar] 30 units SQ Q12H 09/12/21 09/13/21 Rivaroxaban [Xarelto] 20 mg PO DAILY 09/12/21 09/13/21 Torsemide 40 mg PO DAILY 09/12/21 09/13/21 Acetaminophen [Pain Relief] 650 mg PO PRN PRN 09/13/21 09/13/21 Amiodarone [Pacerone] 200 mg PO DAILY 09/13/21 09/13/21 Benzonatate [Tessalon] 100 mg PO TID PRN 09/13/21 09/13/21 Cholecalciferol (Vitamin D3) 50 mcg PO DAILY 09/13/21 09/13/21 [Vitamin D3] Magnesium Oxide 420 mg PO DAILY 09/13/21 09/13/21 ceFAZolin [Ancef] 2 gm IV Q8H 09/13/21 09/13/21 lisinopriL [Zestril] 5 mg PO DAILY 09/13/21 09/13/21 Amox/Clav 875/125 [Augmentin] 1 each PO Q12H #14 tablet 09/30/21 - Allergies Allergies/Adverse Reactions: Allergies Allergy/AdvReac Type Severity Reaction Status Date / Time shellfish derived Allergy Unknown Verified 09/30/21 13:03 - Social History Does the pt smoke?: No Smoking Status: Never smoker Does the pt drink ETOH?: Yes Does the pt have substance abuse?: No - Immunizations Immunizations are current?: Yes - POLST Patient has POLST: No POLST Status: Full Code PD ED PE NORMAL - Vitals Vital signs reviewed: Yes (hypertensive with wide pulse pressure. ) - General General: Alert and oriented X 3, No acute distress, Well developed/nourished - HEENT HEENT: PERRL, EOMI, Other (pain to palp to the occiput) - Neck Neck: Supple, no meningeal sign, No bony TTP, C-Spine cleared by NEXUS criteria (cleared at 1310 with manual removal of collar, full ROM no pain no parastheisias. ) - Cardiac Cardiac: RRR, No murmur - Respiratory Respiratory: No respiratory distress, Clear bilaterally, Other (mild chest wall tenderness to the right lower chest wall) - Abdomen Abdomen: Normal bowel sounds, Soft, Non tender, Non distended, No organomegaly - Back Back: No CVA TTP, No spinal TTP - Derm Derm: Normal color, Warm and dry, No rash - Extremities Extremities: No deformity, No edema - Neuro Neuro: Alert and oriented X 3, sales engineer 2-12 intact, No motor deficit, No sensory deficit, Normal speech Eye Opening: Spontaneous Motor: Obeys Commands Verbal: Oriented GCS Score: 15 - Psych Psych: Normal mood, Normal affect Results - Vitals Vitals: Vital Signs - 24 hr 09/30/21 09/30/21 09/30/21 12:58 13:00 14:20 Temperature 36.6 C Heart Rate 67 66 68 Respiratory 16 17 Rate Blood Pressure 153/66 H 135/70 H 102/61 O2 Saturation 100 97 100 09/30/21 09/30/21 09/30/21 14:30 15:00 15:30 Temperature Heart Rate 67 66 65 Respiratory 10 L 16 15 Rate Blood Pressure 113/53 L 119/83 H 122/60 O2 Saturation 100 94 97 Oxygen O2 Source [] Room air O2 Source [] Room air O2 Source Room air - EKG (time done) 1416 Rate: Rate (enter#) (68) Rhythm: NSR, LAE Intervals: Prolonged MD, LBBB Compare to prior EKG: Changed from prior EKG (SPT 09-12-21 the rate has increased) Computer interpretation: Agree with computer - Labs Labs: Laboratory Tests 09/30/21 09/30/21 09/30/21 13:06 13:56 13:56 WBC 6.0 RBC 4.44 L Hgb 10.1 L Hct 33.3 L MCV 75.0 L MCH 22.7 L MCHC 30.3 L RDW 18.0 H Plt Count 151 MPV 8.8 Neut # (Auto) 4.3 Lymph # (Auto) 0.9 L [place] # (Auto) 0.5 Eos # (Auto) 0.2 Baso # (Auto) 0.1 Absolute Nucleated RBC 0.00 Nucleated RBC % 0.0 PT 30.9 H INR 2.8 H APTT 55.7 H Sodium Potassium Chloride Carbon Dioxide Anion Gap BUN Creatinine Estimated GFR (MDRD) Glucose Lactic Acid Calcium Total Bilirubin AST ALT Alkaline Phosphatase Total Protein Albumin Globulin Albumin/Globulin Ratio Lipase Urine Color LIGHT YELLOW Urine Clarity SL. CLOUDY Urine pH 6.0 Ur Specific [place] 1.010 Urine Protein NEGATIVE Urine Glucose (UA) 500 H Urine Ketones NEGATIVE Urine Occult Blood SMALL H Urine Nitrite NEGATIVE Urine Bilirubin NEGATIVE Urine Urobilinogen 0.2 (NORMAL) Ur Leukocyte Esterase MODERATE H Urine RBC 6-10 H Urine WBC >25 H Urine WBC Clumps PRESENT Ur Squamous Epith Cells NONE SEEN Urine Bacteria Few Ur Microscopic Review INDICATED Urine Culture Comments INDICATED 09/30/21 09/30/21 13:56 13:56 WBC RBC Hgb Hct MCV MCH MCHC RDW Plt Count MPV Neut # (Auto) Lymph # (Auto) [place] # (Auto) Eos # (Auto) Baso # (Auto) Absolute Nucleated RBC Nucleated RBC % PT INR APTT Sodium 135 Potassium 3.3 L Chloride 95 L Carbon Dioxide 24 Anion Gap 16.0 H BUN 42 H Creatinine 2.0 H Estimated GFR (MDRD) 33 L Glucose 99 Lactic Acid 2.2 Calcium 9.4 Total Bilirubin 1.0 AST 18 ALT 12 Alkaline Phosphatase 83 Total Protein 8.5 H Albumin 3.7 Globulin 4.8 H Albumin/Globulin Ratio 0.8 L Lipase 56 H Urine Color Urine Clarity Urine pH Ur Specific [place] Urine Protein Urine Glucose (UA) Urine Ketones Urine Occult Blood Urine Nitrite Urine Bilirubin Urine Urobilinogen Ur Leukocyte Esterase Urine RBC Urine WBC Urine WBC Clumps Ur Squamous Epith Cells Urine Bacteria Ur Microscopic Review Urine Culture Comments - Rads (name of study) CT head Radiology: Prelim report reviewed (Impression: 1. No acute intracranial process. Moderate atrophy and chronic microvascular ischemic changes.), EMP read indepedently, See rad report ribs with PA chest r Radiology: Prelim report reviewed (Impression: 1. No evidence of rib fracture or pneumothorax. Small right pleural effusion. Benign sclerotic density in the right proximal humerus complex bone infarct or an chondroma stable from prior.), EMP read indepedently, See rad report Procedures - IVC sono (time) 1340 Bedside IVC sono: IVC measures (cm) (1.29), Dehydration (est 1 liter deficit) PD MEDICAL DECISION MAKING - ED course Complexity details: reviewed old records, reviewed results, re-evaluated patient, considered differential, d/w patient ED course: 75-year-old Osmel Baxter has been admitted in the hospital a number of times for altered mental status associated with dehydration sepsis and medication overuse. He has recently been discharged from our hospital 3 weeks ago. He has been at home and improving. Today he had a syncopal episode after getting up from the commode and fell hitting the back of his head. He did not have loss of consciousness. He denies any pain to his neck denies any numbness or tingling denies any weakness. He did strike his ribs on the right side and states that he does not feel he has any specific injury there. He does acknowledge frequency and dysuria. The patient is on Xarelto. Today in the emergency department he is again dehydrated and likely not to the extent he has been previously. We did discover urinary tract infection and the patient is symptomatic with this. He does not appear to be septic. He is mentating normally. He was ministered a liter of saline a gram of Rocephin and we will provide a prescription for Augmentin for continued treatment of urinary tract infection. A sample has been obtained and did meet the grade for culture. Images of the patient's head did not demonstrate any evidence of intracranial hemorrhage and images of his chest did not demonstrate any obvious rib fracture. The patient did not require pain medication in the emergency department. Departure - Departure Disposition: 01 Home, Self Care Clinical Impression: Dehydration Urinary tract infection Qualifiers: Urinary tract infection type: acute cystitis Hematuria presence: with hematuria Qualified Code(s): N30.01 - Acute cystitis with hematuria Condition: Stable Instructions: ED Dehydration, ED UTI Cystitis Male Follow-Up: Deion Wheeler MD [Primary Care Provider] - Prescriptions: Amox/Clav 875/125 [Augmentin] 1 each PO Q12H #14 tablet Comments: Osmel, today it looks like the injury you had your head did not cause a problem with bleeding internally. The contusion to your chest did not result in a rib fracture. Your chest may get sore over the next 5 days. Today we did find that you were dehydrated but not on the order that you have been previously. We also discovered that you have urinary tract infection and this is likely the reason you have been having to get up so frequently to go to the bathroom and why it has been burning. We have given you an antibiotic by vein today and I have prescribed some Augmentin for you to take to complete the course. Your medication has been E scribed to [facility] in [place]. Discharge Date/Time: 09/30/21 15:52
[2021-09-30 13:23] LABS: BILIRUBIN,URINE NEGATIVE (NEGATIVE); GLUCOSE, URINE (UA) 500 mg/dL (NEGATIVE); KETONES,URINE (UA) NEGATIVE (NEGATIVE); LEUKOCYTE ESTERASE, URINE MODERATE (NEGATIVE); NITRITE,URINE NEGATIVE (NEGATIVE); OCCULT BLOOD,URINE SMALL (NEGATIVE); PROTEIN,URINE NEGATIVE (NEGATIVE); UROBILINOGEN,URINE 0.2 (NORMAL) E.U./dL (NORMAL)
--- NOTE | 2021-09-30 13:30 | CT Report ---
PROCEDURE: HEAD WO INDICATIONS: fall head injury on DOAC TECHNIQUE: Noncontrast 4.5 mm thick angled axial sections acquired from the foramen magnum to the vertex. For r adiation dose reduction, the following was used: automated exposure control, adjustment of mA and/or kV according to patient size. COMPARISON: CT head 09/12/2021, 09/03/2021, 03/09/2021 FINDINGS: Image quality: Excellent. The ventricular system and cortical sulci demonstrate atrophy, consistent for patient's stated age. There are areas of hypodensity in the periventricular and subcortical white matter. There is no acut e intra or extra-axial fluid collection. No acute hemorrhage, mass lesion or midline shift. Brainst em is unremarkable. Globes are symmetrical. Sinuses demonstrate minimal mucosal thickening within the left maxillary sinu s. Osseous structures are intact. IMPRESSION: 1. No acute intracranial process. 2. Moderate atrophy and chronic microvascular ischemic changes. Reviewed by: Velvet Lujan MD on 09/30/2021 1:28 PM PDT Approved by: Velvet Lujan MD on 09/30/2021 1:28 PM PDT Station ID: [id number]
[2021-09-30 13:37] LABS: CLARITY,URINE SL. CLOUDY (CLEAR)
[2021-09-30 13:38] LABS: BACTERIA,URINE Few /HPF (None Seen); SQUAMOUS EPITHELIAL CELL,UR NONE SEEN (<= Few); WBC CLUMPS,URINE PRESENT; WBC,URINE >25 /HPF (0-3)
[2021-09-30] MEDS ORDERED: SODIUM CHLORIDE 0.9% 1,000 ML IV STA (13:43)
--- NOTE | 2021-09-30 13:59 | XRAY Report ---
PROCEDURE: Ribs w/PA Chest RT INDICATIONS: fall right rib pain TECHNIQUE: 3 views of the right ribs were acquired, along with a single view chest. COMPARISON: 09/12/2021 FINDINGS: Surgical changes and devices: Midline sternotomy wires and mediastinal vascular clips noted. Cardiac valve replacement Bones and chest wall: No fractures or dislocations. No suspicious bony lesions. Overlying soft tis sues appear unremarkable. Sclerotic density in the right proximal humeral head remains stable from the prior Lungs and pleura: Minimal blunting the right costophrenic angle. Diffuse underlying chronic interstit ial changes. Left pleural space clear Mediastinum: Mediastinal contours appear normal. Heart size is normal. IMPRESSION: 1. No evidence of rib fracture or pneumothorax. 2. Small right pleural effusion. 3. Benign sclerotic density in the right proximal humerus complex bone infarct or an chondroma, stabl e from the prior Reviewed by: Juan Stacy MD on 09/30/2021 12:58 PM AKDT Approved by: Juan Stacy MD on 09/30/2021 12:58 PM AKDT Station ID: [id number]
[2021-09-30 14:03] LABS: BASOPHILS # (AUTO) 0.1 10^3/uL (0.0-0.1); BASOPHILS % (AUTO) 0.8 %; EOSINOPHILS # (AUTO) 0.2 10^3/uL (0.0-0.7); EOSINOPHILS % (AUTO) 2.5 %; HCT - HEMATOCRIT 33.3 % (42.0-52.0); HGB - HEMOGLOBIN 10.1 g/dL (14.0-18.0); LYMPHOCYTES # (AUTO) 0.9 10^3/uL (1.5-3.5); LYMPHOCYTES % (AUTO) 15.6 %; MEAN CORPUSCULAR HEMOGLOBIN 22.7 pg (27.0-31.0); MEAN CORPUSCULAR HGB CONC 30.3 g/dL (32.0-36.0); MEAN PLATELET VOLUME 8.8 fL (7.4-11.4); MONOCYTES # (AUTO) 0.5 10^3/uL (0.0-1.0); MONOCYTES % (AUTO) 8.7 %; NEUTROPHILS # (AUTO) 4.3 10^3/uL (1.5-6.6); NEUTROPHILS % (AUTO) 72.1 %; PLT - PLATELET COUNT 151 10^3/uL (130-450); RED BLOOD COUNT 4.44 10^6/uL (4.70-6.10)
[2021-09-30 14:11] LABS: INR 2.8 (0.8-1.2); PT - PROTHROMBIN TIME 30.9 secs (9.9-12.6)
[2021-09-30 14:18] LABS: ALBUMIN 3.7 g/dL (3.2-5.5); ALBUMIN/GLOBULIN RATIO 0.8 (1.0-2.2); CALCIUM 9.4 mg/dL (8.5-10.3); PARTIAL THROMBOPLASTIN TIME 55.7 secs (24.9-33.3); POTASSIUM 3.3 mmol/L (3.5-5.0); TOTAL PROTEIN 8.5 g/dL (6.7-8.2)
[2021-09-30] MEDS ORDERED: cefTRIAXone 1 GM in SODIUM CHLORIDE 0.9% MINIBAG 100 ML IV STA (14:33)
[2021-09-30 15:32] VITALS: BP 122/60
== END 2021-09-30 15:52 | disposition home or self-care (01) ==
LOC: EDUNIT# → ED 12:53
DX: S09.90XA Unspecified injury of head, initial encounter (principal); I10 Essential (primary) hypertension; W19.XXXA Unspecified fall, initial encounter; Y92.009 Unspecified place in unspecified non-institutional (private) residence as the place of occurrence of the external cause; E86.0 Dehydration; N30.01 Acute cystitis with hematuria; J90 Pleural effusion, not elsewhere classified; I48.91 Unspecified atrial fibrillation; E11.9 Type 2 diabetes mellitus without complications; Z79.84 Long term (current) use of oral hypoglycemic drugs; Z95.1 Presence of aortocoronary bypass graft; Z79.01 Long term (current) use of anticoagulants; Z79.4 Long term (current) use of insulin
CPT/HCPCS: 36415; 80053; 81001; 81003; 83605; 83690; 85025; 85610; 85730; 87040; 87086; 93005; 96365; 99284

== ENCOUNTER 2022-03-05 19:12 | Emergency (ER) | payer MEDICARE, OTHER ==
--- OUTSIDE RECORDS SUMMARY | 2022-03-05 19:29 | EXTERNAL MEDICAL SUMMARY RPT | Continuity of Care Document ---
:1945 Author Organization [facility] Address [address] [place] [address] Phone Allergies and Intolerances date description facility type (no date) NSAIDS (Non-Steroidal Anti-Inflamma [facility]ly [facility] pital (unknown) (no date) ferrous sulfate [facility] (unknown) (no date) gabapentin [facility] (unknown) (no date) [facility] Encounters No information. Functional Status No information. Immunizations No information. Medications No information. Problems No information. Procedures No information. Results/Labs test date author facility value unit interpret ation Result panel 1 (unknown) (no (unknown) (unknown) (no value) (units (unk nown) date) unknown) (unknown) (no (unknown) (unknown) [address] (units (unkn own) date) [address] unknown) (unknown) (no (unknown) (unknown) [place], [place] (units ( unknown) date) [id number] unknown) (unknown) (no (unknown) (unknown) [facility] (units (unknown) date) unknown) (unknown) (no (unknown) (unknown) Signed (units (unkno wn) date) unknown) (unknown) (no (unknown) (unknown) XRay Report (units (un known) date) unknown) (unknown) (no (unknown) (unknown) (no value) (units (unk nown) date) unknown) (unknown) (no (unknown) (unknown) 01/26/22 (units (unkno wn) date) unknown) (unknown) (no (unknown) (unknown) 1. Slight right (units (unknown) date) lateral unknown) costophrenic sulcus blunting may indicate small right (unknown) (no (unknown) (unknown) 2. Mild (units (unkno wn) date) cardiomegaly unknown) without radiographic findings of CHF. (unknown) (no (unknown) (unknown) Approved by: (units (u nknown) date) Brittny Moran unknownMarilu Gonzalez on 01/26/2022 at 20:15 (unknown) (no (unknown) (unknown) Bones and chest (units (unknown) date) wall: No unknown) suspicious bony lesions. Overlying soft tissues (unknown) (no (unknown) (unknown) COMPARISON: (units (un known) date) [facility], unknown) CR, XR CHEST 1V, 09/25/2018, 11:32. (unknown) (no (unknown) (unknown) Dictated by: (units (u nknown) date) leona Martinez M.D. on 01/26/2022 at 20:13 (unknown) (no (unknown) (unknown) FINDINGS: (units (unkn own) date) unknown) (unknown) (no (unknown) (unknown) IMPRESSION: (units (un known) date) unknown) (unknown) (no (unknown) (unknown) INDICATIONS: (units (u nknown) date) suspected sepsis unknown) (unknown) (no (unknown) (unknown) Lungs and (units (unkn own) date) pleura: Slight unknown) blunting of the right lateral costophrenic sulcus. (unknown) (no (unknown) (unknown) Mediastinum: (units (u nknown) date) Mild unknown) cardiomegaly. No central venous congestion. (unknown) (no (unknown) (unknown) Surgical (units (unkno wn) date) changes and unknown) devices: Median sternotomy and CABG changes. Overlying (unknown) (no (unknown) (unknown) TECHNIQUE: One (units (unknown) date) view of the unknown) chest was acquired. (unknown) (no (unknown) (unknown) and/or (units (unkno wn) date) atelectasis. unknown) Underlying infection cannot be excluded. (unknown) (no (unknown) (unknown) otherwise (units (unkn own) date) clear. unknown) (unknown) (no (unknown) (unknown) unremarkable. (units ( unknown) date) unknown) (unknown) (no (unknown) (unknown) wires. (units (unkno wn) date) unknown) (unknown) (no (unknown) (unknown) [id number] (units (unkno wn) date) unknown) (unknown) (no (unknown) (unknown) Accession (units (unkn own) date) Number: unknown) [id number] (unknown) (no (unknown) (unknown) Age/Sex: 76 / M (units (unknown) date) Date of Service: unknown) (unknown) (no (unknown) (unknown) : 1945 (units (unknown) date) Acct:[id number] unknown) (unknown) (no (unknown) (unknown) Loc: ED (units (unkno wn) date) unknown) (unknown) (no (unknown) (unknown) Lungs are (units (unkn own) date) unknown) (unknown) (no (unknown) (unknown) Ordering (units (unkno wn) date) Provider: unknown) Ashley Glynn MD (unknown) (no (unknown) (unknown) PROCEDURE: XR (units ( unknown) date) CHEST 1V unknown) (unknown) (no (unknown) (unknown) Patient: (units (unkno wn) date) Osmel Baxter unknown) MR#: [id number] (unknown) (no (unknown) (unknown) Procedure: XR (units ( unknown) date) chest 1V unknown) (unknown) (no (unknown) (unknown) appear (units (unkno wn) date) unknown) (unknown) (no (unknown) (unknown) effusion (units (unkno wn) date) unknown) (unknown) (no (unknown) (unknown) monitoring (units (unk nown) date) unknown) Result panel 2 (unknown) (no (unknown) (unknown) Qty: 0 (units (unkno wn) date) unknown) (unknown) (no (unknown) (unknown) (no value) (units (unk nown) date) unknown) (unknown) (no (unknown) (unknown) Date of Service: (units (unknown) date) 01/26/22 unknown) (unknown) (no (unknown) (unknown) (no value) (units (unk nown) date) unknown) (unknown) (no (unknown) (unknown) 0.25 mg SUBCUT QWEEK (uni ts (unknown) date) unknown) (unknown) (no (unknown) (unknown) 1 tab PO BEDTIME (units (unknown) date) unknown) (unknown) (no (unknown) (unknown) 1,275 mg PO BID Qty: (uni ts (unknown) date) 0 unknown) (unknown) (no (unknown) (unknown) 10 mg PO BID (units (u nknown) date) unknown) (unknown) (no (unknown) (unknown) 10 mg PO QDAY Qty: 0 (uni ts (unknown) date) unknown) (unknown) (no (unknown) (unknown) 10 mg PO TID (units (u nknown) date) unknown) (unknown) (no (unknown) (unknown) 100 mg PO BID (units ( unknown) date) unknown) (unknown) (no (unknown) (unknown) 100 mg PO DAILY PRN (unit s (unknown) date) (Reason: Sexual unknown) Activity) (unknown) (no (unknown) (unknown) 100 unit SQ DAILY (units (unknown) date) Qty: 0 unknown) (unknown) (no (unknown) (unknown) 12.5 mg PO BID (units (unknown) date) unknown) (unknown) (no (unknown) (unknown) 20 mg PO DAILY (units (unknown) date) unknown) (unknown) (no (unknown) (unknown) 40 mg PO DAILY Qty: (unit s (unknown) date) 0 unknown) (unknown) (no (unknown) (unknown) 50 mg PO QDAY Qty: 0 (uni ts (unknown) date) unknown) (unknown) (no (unknown) (unknown) 81 mg PO QDAY Qty: 0 (uni ts (unknown) date) unknown) (unknown) (no (unknown) (unknown) Allergies (units (unkn own) date) unknown) (unknown) (no (unknown) (unknown) Emergency Report (units (unknown) date) unknown) (unknown) (no (unknown) (unknown) Home Medications (units (unknown) date) unknown) (unknown) (no (unknown) (unknown) [facility] [address] (uni ts (unknown) date) [address]) [place] [address] (unknown) (no (unknown) (unknown) (no value) (units (unk nown) date) unknown) (unknown) (no (unknown) (unknown) Lantus U-100 Insulin (uni ts (unknown) date) 100 UNIT/1 ML unknown) solution (unknown) (no (unknown) (unknown) Metformin (units (unkn own) date) Hydrochloride unknown) (GLUCOPHAGE) (unknown) (no (unknown) (unknown) Ozempic 0.25 mg or (units (unknown) date) 0.5 mg(2 mg/1.5 mL) unknown) Pen Injector (unknown) (no (unknown) (unknown) VITAMIN D (Vitamin (units (unknown) date) D3) unknown) (unknown) (no (unknown) (unknown) Xarelto 20 mg tablet (uni ts (unknown) date) unknown) (unknown) (no (unknown) (unknown) allopurinol 100 mg (units (unknown) date) Tablet unknown) (unknown) (no (unknown) (unknown) aspirin 81 MG (units ( unknown) date) tablet,chewable unknown) (unknown) (no (unknown) (unknown) atorvastatin 20 mg (units (unknown) date) Tablet unknown) (unknown) (no (unknown) (unknown) carbidopa-levodopa (units (unknown) date) 25-100 mg Tablet unknown) (unknown) (no (unknown) (unknown) carvedilol 12.5 mg (units (unknown) date) Tablet unknown) (unknown) (no (unknown) (unknown) cyclobenzaprine 10 (units (unknown) date) mg Tablet unknown) (unknown) (no (unknown) (unknown) hydrochlorothiazide (unit s (unknown) date) 25 MG tablet unknown) (unknown) (no (unknown) (unknown) lisinopril 20 MG (units (unknown) date) tablet unknown) (unknown) (no (unknown) (unknown) omeprazole 40 MG (units (unknown) date) capsule,delayed unknown) release(DR/EC) (unknown) (no (unknown) (unknown) oxycodone 10 mg (units (unknown) date) tablet,oral unknown) only,ext.rel.12 hr (unknown) (no (unknown) (unknown) sildenafil 100 mg (units (unknown) date) Tablet unknown) (unknown) (no (unknown) (unknown) testosterone (units (u nknown) date) cypionate unknown) [Depo-Testosterone] 200 MG/1 ML oil (unknown) (no (unknown) (unknown) Medication (units (unk nown) date) Instructions Recorded unknown) Confirmed (unknown) (no (unknown) (unknown) (Depo-Testosterone) (unit s (unknown) date) unknown) (unknown) (no (unknown) (unknown) (GLUCOPHAGE) (units (u nknown) date) unknown) (unknown) (no (unknown) (unknown) [id number] (units (unkno wn) date) unknown) (unknown) (no (unknown) (unknown) Age/Sex: 76 / M (units (unknown) date) unknown) (unknown) (no (unknown) (unknown) Allergy/AdvReac Type (uni ts (unknown) date) Severity Reaction unknown) Status Date / Time (unknown) (no (unknown) (unknown) Anti-Inflamma (units ( unknown) date) disease unknown) (unknown) (no (unknown) (unknown) Atrial fibrillation (unit s (unknown) date) unknown) (unknown) (no (unknown) (unknown) Coronary artery (units (unknown) date) disease unknown) (unknown) (no (unknown) (unknown) : 1945 (units (unknown) date) Acct:[id number] unknown) (unknown) (no (unknown) (unknown) Departure (units (unkn own) date) unknown) (unknown) (no (unknown) (unknown) Diabetes (units (unkno wn) date) unknown) (unknown) (no (unknown) (unknown) Discharge Plan (units (unknown) date) unknown) (unknown) (no (unknown) (unknown) Dyslipidemia (units (u nknown) date) unknown) (unknown) (no (unknown) (unknown) ER Physician: (units ( unknown) date) Ashley Glynn MD unknown) (unknown) (no (unknown) (unknown) General (units (unkno wn) date) unknown) (unknown) (no (unknown) (unknown) HPI - General Adult (unit s (unknown) date) unknown) (unknown) (no (unknown) (unknown) Hx of (units (unkno wn) date) cholecystectomy unknown) (unknown) (no (unknown) (unknown) Hypertension (units (u nknown) date) unknown) (unknown) (no (unknown) (unknown) Medical History (units (unknown) date) (Reviewed 11/15/19 @ unknown) 04:28 by MEKA Garcia) (unknown) (no (unknown) (unknown) Metformin (units (unkn own) date) Hydrochloride 1,275 unknown) mg PO BID ##0 07/08/12 (unknown) (no (unknown) (unknown) Miscellaneous,Doctor (uni ts (unknown) date) , [Primary Care unknown) Provider] - (unknown) (no (unknown) (unknown) NSAIDS (units (unkno wn) date) (Non-Steroidal unknown) AdvReac Severe kidney Verified 11/14/19 20:28 (unknown) (no (unknown) (unknown) No Action (units (unkn own) date) unknown) (unknown) (no (unknown) (unknown) Patient History (units (unknown) date) unknown) (unknown) (no (unknown) (unknown) Patient: (units (unkno wn) date) Osmel Baxter MR#: unknown) [id number] (unknown) (no (unknown) (unknown) Prescriptions: (units (unknown) date) unknown) (unknown) (no (unknown) (unknown) Referrals: (units (unk nown) date) unknown) (unknown) (no (unknown) (unknown) Related Data (units (u nknown) date) unknown) (unknown) (no (unknown) (unknown) S/P CABG x 4 (units (u nknown) date) unknown) (unknown) (no (unknown) (unknown) Signed By: (units (unk nown) date) unknown) (unknown) (no (unknown) (unknown) Sleep apnea (units (un known) date) unknown) (unknown) (no (unknown) (unknown) Smoking Status: (units (unknown) date) Former smoker unknown) (unknown) (no (unknown) (unknown) Smoking Status: (units (unknown) date) Former smoker unknown) (unknown) (no (unknown) (unknown) Social History (units (unknown) date) (Updated 09/25/18 @ unknown) 11:17 by Telma Dickey DO) (unknown) (no (unknown) (unknown) Stated complaint: (units (unknown) date) Dementia unknown) (unknown) (no (unknown) (unknown) Substance Use Type: (unit s (unknown) date) does not use unknown) (unknown) (no (unknown) (unknown) Surgical History (units (unknown) date) (Reviewed 11/15/19 @ unknown) 04:28 by MEKA Garcia) (unknown) (no (unknown) (unknown) Time Seen by (units (u nknown) date) Provider: 01/26/22 unknown) 19:49 (unknown) (no (unknown) (unknown) U-100 Insulin) (units (unknown) date) unknown) (unknown) (no (unknown) (unknown) VITAMIN D (Vitamin (units (unknown) date) D3) ##0 07/08/12 unknown) (unknown) (no (unknown) (unknown) alcohol intake (units (unknown) date) frequency: unknown) holidays/special occasions only (unknown) (no (unknown) (unknown) allopurinol 100 mg (units (unknown) date) tablet 100 mg PO BID unknown) 11/15/19 11/15/19 (unknown) (no (unknown) (unknown) aspirin 81 mg (units ( unknown) date) chewable tablet 81 mg unknown) PO QDAY ##0 07/08/12 11/15/19 (unknown) (no (unknown) (unknown) atorvastatin 20 mg (units (unknown) date) tablet 20 mg PO DAILY unknown) 11/15/19 11/15/19 (unknown) (no (unknown) (unknown) carbidopa 25 (units (u nknown) date) mg-levodopa 100 mg 1 unknown) tab PO BEDTIME RLS 11/15/19 11/15/19 (unknown) (no (unknown) (unknown) carvedilol 12.5 mg (units (unknown) date) tablet 12.5 mg PO BID unknown) 11/15/19 11/15/19 (unknown) (no (unknown) (unknown) cyclobenzaprine 10 (units (unknown) date) mg tablet 10 mg PO unknown) TID 11/15/19 11/15/19 (unknown) (no (unknown) (unknown) details: x 9 (uni ts (unknown) date) months unknown) (unknown) (no (unknown) (unknown) ferrous sulfate (units (unknown) date) Allergy Muscle Pain unknown) Verified 11/14/19 20:28 (unknown) (no (unknown) (unknown) gabapentin Allergy (units (unknown) date) Confusion Verified unknown) 11/14/19 20:28 (unknown) (no (unknown) (unknown) household members: (units (unknown) date) significant other unknown) (unknown) (no (unknown) (unknown) hydrochlorothiazide (unit s (unknown) date) 25 mg tablet 50 mg PO unknown) QDAY ##0 07/08/12 (unknown) (no (unknown) (unknown) injector (Ozempic) (units (unknown) date) unknown) (unknown) (no (unknown) (unknown) insulin glargine 100 (uni ts (unknown) date) unit/mL 100 unit SQ unknown) DAILY ##0 07/08/12 11/15/19 (unknown) (no (unknown) (unknown) intramuscular oil (units (unknown) date) unknown) (unknown) (no (unknown) (unknown) lisinopril 20 mg (units (unknown) date) tablet 10 mg PO QDAY unknown) ##0 07/08/12 11/15/19 (unknown) (no (unknown) (unknown) marital status: (units (unknown) date) unknown) (unknown) (no (unknown) (unknown) mg/1.5 mL) (units (unk nown) date) subcutaneous pen unknown) (unknown) (no (unknown) (unknown) omeprazole 40 mg (units (unknown) date) capsule,delayed 40 mg unknown) PO DAILY ##0 07/08/12 11/15/19 (unknown) (no (unknown) (unknown) oxycodone 10 mg (units (unknown) date) tablet,crush 10 mg PO unknown) BID 11/15/19 11/15/19 (unknown) (no (unknown) (unknown) release (units (unkno wn) date) unknown) (unknown) (no (unknown) (unknown) resistant,extended (units (unknown) date) release 12 hr unknown) (unknown) (no (unknown) (unknown) rivaroxaban 20 mg (units (unknown) date) tablet (Xarelto) 20 unknown) mg PO DAILY 11/14/19 11/14/19 (unknown) (no (unknown) (unknown) semaglutide 0.25 mg (unit s (unknown) date) or 0.5 mg (2 0.25 mg unknown) SUBCUT QWEEK 11/15/19 11/15/19 (unknown) (no (unknown) (unknown) sildenafil 100 mg (units (unknown) date) tablet 100 mg PO unknown) DAILY PRN Sexual Activity 11/15/19 11/15/19 (unknown) (no (unknown) (unknown) subcutaneous (units (u nknown) date) solution (Lantus unknown) (unknown) (no (unknown) (unknown) tablet (units (unkno wn) date) unknown) (unknown) (no (unknown) (unknown) testosterone (units (u nknown) date) cypionate 200 mg/mL unknown) ##0 07/08/12 (unknown) (no (unknown) (unknown) zolpidem [From (units (unknown) date) Ambien] Allergy unknown) Confusion Verified 11/14/19 20:28 Result panel 3 (unknown) (no date) (unknown) (unknown) 1.0 % (unkn own) (unknown) (no date) (unknown) (unknown) 100 /uL (unkn own) (unknown) (no date) (unknown) (unknown) 11.4 % (unkn own) (unknown) (no date) (unknown) (unknown) 2.75 X10 6/uL (unkn own) (unknown) (no date) (unknown) (unknown) 2.8 % (unkn own) (unknown) (no date) (unknown) (unknown) 20.8 % (unkn own) (unknown) (no date) (unknown) (unknown) 200 /uL (unkn own) (unknown) (no date) (unknown) (unknown) 206 X10 3/uL (unkn own) (unknown) (no date) (unknown) (unknown) 24.5 % (unkn own) (unknown) (no date) (unknown) (unknown) 24.6 PG (unkn own) (unknown) (no date) (unknown) (unknown) 32.4 % (unkn own) (unknown) (no date) (unknown) (unknown) 5400 /uL (unkn own) (unknown) (no date) (unknown) (unknown) 6.7 g/dL (unkn own) (unknown) (no date) (unknown) (unknown) 7.1 X10 3/uL (unkn own) (unknown) (no date) (unknown) (unknown) 700 /uL (unkn own) (unknown) (no date) (unknown) (unknown) 75.0 % (unkn own) (unknown) (no date) (unknown) (unknown) 75.7 fL (unkn own) (unknown) (no date) (unknown) (unknown) 800 /uL (unkn own) (unknown) (no date) (unknown) (unknown) 9.8 % (unkn own) Result panel 4 (unknown) (no date) (unknown) (unknown) 1.0 (units unknown) (unknown) (unknown) (no date) (unknown) (unknown) 1.3 mmol/L (unkn own) (unknown) (no date) (unknown) (unknown) 1.5 mg/dL (unkn own) (unknown) (no date) (unknown) (unknown) 130 mg/dL (unkn own) (unknown) (no date) (unknown) (unknown) 132 mmol/L (unkn own) (unknown) (no date) (unknown) (unknown) 135 U/L (unkn own) (unknown) (no date) (unknown) (unknown) 170 U/L (unkn own) (unknown) (no date) (unknown) (unknown) 19 mL/min (unkn own) (unknown) (no date) (unknown) (unknown) 19.2 (units unknown) (unknown) (unknown) (no date) (unknown) (unknown) 27 IU/L (unkn own) (unknown) (no date) (unknown) (unknown) 27 mmol/L (unkn own) (unknown) (no date) (unknown) (unknown) 28 IU/L (unkn own) (unknown) (no date) (unknown) (unknown) 3.18 mg/dL (unkn own) (unknown) (no date) (unknown) (unknown) 3.5 g/dL (unkn own) (unknown) (no date) (unknown) (unknown) 3.6 g/dL (unkn own) (unknown) (no date) (unknown) (unknown) 4.3 mmol/L (unkn own) (unknown) (no date) (unknown) (unknown) 61 mg/dL (unkn own) (unknown) (no date) (unknown) (unknown) 7.1 g/dL (unkn own) (unknown) (no date) (unknown) (unknown) 8.4 mg/dL (unkn own) (unknown) (no date) (unknown) (unknown) 97 mmol/L (unkn own) Result panel 5 (unknown) (no (unknown) (unknown) Qty: 0 (units (unkno wn) date) unknown) (unknown) (no (unknown) (unknown) (no value) (units (unk nown) date) unknown) (unknown) (no (unknown) (unknown) Date of Service: (units (unknown) date) 01/26/22 unknown) (unknown) (no (unknown) (unknown) (no value) (units (unk nown) date) unknown) (unknown) (no (unknown) (unknown) 0.25 mg SUBCUT QWEEK (uni ts (unknown) date) unknown) (unknown) (no (unknown) (unknown) 1 tab PO BEDTIME (units (unknown) date) unknown) (unknown) (no (unknown) (unknown) 1,275 mg PO BID Qty: (uni ts (unknown) date) 0 unknown) (unknown) (no (unknown) (unknown) 10 mg PO BID (units (u nknown) date) unknown) (unknown) (no (unknown) (unknown) 10 mg PO QDAY Qty: 0 (uni ts (unknown) date) unknown) (unknown) (no (unknown) (unknown) 10 mg PO TID (units (u nknown) date) unknown) (unknown) (no (unknown) (unknown) 100 mg PO BID (units ( unknown) date) unknown) (unknown) (no (unknown) (unknown) 100 mg PO DAILY PRN (unit s (unknown) date) (Reason: Sexual unknown) Activity) (unknown) (no (unknown) (unknown) 100 unit SQ DAILY (units (unknown) date) Qty: 0 unknown) (unknown) (no (unknown) (unknown) 12.5 mg PO BID (units (unknown) date) unknown) (unknown) (no (unknown) (unknown) 20 mg PO DAILY (units (unknown) date) unknown) (unknown) (no (unknown) (unknown) 40 mg PO DAILY Qty: (unit s (unknown) date) 0 unknown) (unknown) (no (unknown) (unknown) 50 mg PO QDAY Qty: 0 (uni ts (unknown) date) unknown) (unknown) (no (unknown) (unknown) 81 mg PO QDAY Qty: 0 (uni ts (unknown) date) unknown) (unknown) (no (unknown) (unknown) Allergies (units (unkn own) date) unknown) (unknown) (no (unknown) (unknown) Emergency Report (units (unknown) date) unknown) (unknown) (no (unknown) (unknown) Home Medications (units (unknown) date) unknown) (unknown) (no (unknown) (unknown) [facility] [address] (uni ts (unknown) date) [address] unknown) [place] [address] (unknown) (no (unknown) (unknown) (no value) (units (unk nown) date) unknown) (unknown) (no (unknown) (unknown) Lantus U-100 Insulin (uni ts (unknown) date) 100 UNIT/1 ML unknown) solution (unknown) (no (unknown) (unknown) Metformin (units (unkn own) date) Hydrochloride unknown) (GLUCOPHAGE) (unknown) (no (unknown) (unknown) Ozempic 0.25 mg or (units (unknown) date) 0.5 mg(2 mg/1.5 mL) unknown) Pen Injector (unknown) (no (unknown) (unknown) VITAMIN D (Vitamin (units (unknown) date) D3) unknown) (unknown) (no (unknown) (unknown) Xarelto 20 mg tablet (uni ts (unknown) date) unknown) (unknown) (no (unknown) (unknown) allopurinol 100 mg (units (unknown) date) Tablet unknown) (unknown) (no (unknown) (unknown) aspirin 81 MG (units ( unknown) date) tablet,chewable unknown) (unknown) (no (unknown) (unknown) atorvastatin 20 mg (units (unknown) date) Tablet unknown) (unknown) (no (unknown) (unknown) carbidopa-levodopa (units (unknown) date) 25-100 mg Tablet unknown) (unknown) (no (unknown) (unknown) carvedilol 12.5 mg (units (unknown) date) Tablet unknown) (unknown) (no (unknown) (unknown) cyclobenzaprine 10 (units (unknown) date) mg Tablet unknown) (unknown) (no (unknown) (unknown) hydrochlorothiazide (unit s (unknown) date) 25 MG tablet unknown) (unknown) (no (unknown) (unknown) lisinopril 20 MG (units (unknown) date) tablet unknown) (unknown) (no (unknown) (unknown) omeprazole 40 MG (units (unknown) date) capsule,delayed unknown) release(DR/EC) (unknown) (no (unknown) (unknown) oxycodone 10 mg (units (unknown) date) tablet,oral unknown) only,ext.rel.12 hr (unknown) (no (unknown) (unknown) sildenafil 100 mg (units (unknown) date) Tablet unknown) (unknown) (no (unknown) (unknown) testosterone (units (u nknown) date) cypionate unknown) [Depo-Testosterone] 200 MG/1 ML oil (unknown) (no (unknown) (unknown) Medication (units (unk nown) date) Instructions Recorded unknown) Confirmed (unknown) (no (unknown) (unknown) (Depo-Testosterone) (unit s (unknown) date) unknown) (unknown) (no (unknown) (unknown) (GLUCOPHAGE) (units (u nknown) date) unknown) (unknown) (no (unknown) (unknown) [id number] (units (unkno wn) date) unknown) (unknown) (no (unknown) (unknown) 76-year-old (units (un known) date) gentleman with a unknown) history of coronary artery disease post CABG x4, (unknown) (no (unknown) (unknown) Age/Sex: 76 / M (units (unknown) date) unknown) (unknown) (no (unknown) (unknown) Allergy/AdvReac Type (uni ts (unknown) date) Severity Reaction unknown) Status Date / Time (unknown) (no (unknown) (unknown) Anti-Inflamma (units ( unknown) date) disease unknown) (unknown) (no (unknown) (unknown) Atrial fibrillation (unit s (unknown) date) unknown) (unknown) (no (unknown) (unknown) Coronary artery (units (unknown) date) disease unknown) (unknown) (no (unknown) (unknown) : 1945 (units (unknown) date) Acct:[id number] unknown) (unknown) (no (unknown) (unknown) Departure (units (unkn own) date) unknown) (unknown) (no (unknown) (unknown) Diabetes (units (unkno wn) date) unknown) (unknown) (no (unknown) (unknown) Discharge Plan (units (unknown) date) unknown) (unknown) (no (unknown) (unknown) Dyslipidemia (units (u nknown) date) unknown) (unknown) (no (unknown) (unknown) ER Physician: (units ( unknown) date) Ashley Glynn MD unknown) (unknown) (no (unknown) (unknown) General (units (unkno wn) date) unknown) (unknown) (no (unknown) (unknown) HPI - General Adult (unit s (unknown) date) unknown) (unknown) (no (unknown) (unknown) HPI narrative: (units (unknown) date) unknown) (unknown) (no (unknown) (unknown) History of Present (units (unknown) date) Illness unknown) (unknown) (no (unknown) (unknown) Hx of (units (unkno wn) date) cholecystectomy unknown) (unknown) (no (unknown) (unknown) Hypertension (units (u nknown) date) unknown) (unknown) (no (unknown) (unknown) Medical History (units (unknown) date) (Reviewed 11/15/19 @ unknown) 04:28 by MEKA Garcia) (unknown) (no (unknown) (unknown) Metformin (units (unkn own) date) Hydrochloride 1,275 unknown) mg PO BID ##0 07/08/12 (unknown) (no (unknown) (unknown) Miscellaneous,Doctor (uni ts (unknown) date) , [Primary Care unknown) Provider] - (unknown) (no (unknown) (unknown) NSAIDS (units (unkno wn) date) (Non-Steroidal unknown) AdvReac Severe kidney Verified 11/14/19 20:28 (unknown) (no (unknown) (unknown) No Action (units (unkn own) date) unknown) (unknown) (no (unknown) (unknown) Patient History (units (unknown) date) unknown) (unknown) (no (unknown) (unknown) Patient: (units (unkno wn) date) Osmel Baxter MR#: unknown) M000 (unknown) (no (unknown) (unknown) Prescriptions: (units (unknown) date) unknown) (unknown) (no (unknown) (unknown) Referrals: (units (unk nown) date) unknown) (unknown) (no (unknown) (unknown) Related Data (units (u nknown) date) unknown) (unknown) (no (unknown) (unknown) S/P CABG x 4 (units (u nknown) date) unknown) (unknown) (no (unknown) (unknown) Signed By: (units (unk nown) date) unknown) (unknown) (no (unknown) (unknown) Sleep apnea (units (un known) date) unknown) (unknown) (no (unknown) (unknown) Smoking Status: (units (unknown) date) Former smoker unknown) (unknown) (no (unknown) (unknown) Smoking Status: (units (unknown) date) Former smoker unknown) (unknown) (no (unknown) (unknown) Social History (units (unknown) date) (Updated 09/25/18 @ unknown) 11:17 by Telma Dickey DO) (unknown) (no (unknown) (unknown) Stated complaint: (units (unknown) date) Dementia unknown) (unknown) (no (unknown) (unknown) Substance Use Type: (unit s (unknown) date) does not use unknown) (unknown) (no (unknown) (unknown) Surgical History (units (unknown) date) (Reviewed 11/15/19 @ unknown) 04:28 by MEKA Garcia) (unknown) (no (unknown) (unknown) Time Seen by (units (u nknown) date) Provider: 01/26/22 unknown) 19:49 (unknown) (no (unknown) (unknown) U-100 Insulin) (units (unknown) date) unknown) (unknown) (no (unknown) (unknown) VITAMIN D (Vitamin (units (unknown) date) D3) ##0 07/08/12 unknown) (unknown) (no (unknown) (unknown) alcohol intake (units (unknown) date) frequency: unknown) holidays/special occasions only (unknown) (no (unknown) (unknown) allopurinol 100 mg (units (unknown) date) tablet 100 mg PO BID unknown) 11/15/19 11/15/19 (unknown) (no (unknown) (unknown) aspirin 81 mg (units ( unknown) date) chewable tablet 81 mg unknown) PO QDAY ##0 07/08/12 11/15/19 (unknown) (no (unknown) (unknown) atorvastatin 20 mg (units (unknown) date) tablet 20 mg PO DAILY unknown) 11/15/19 11/15/19 (unknown) (no (unknown) (unknown) carbidopa 25 (units (u nknown) date) mg-levodopa 100 mg 1 unknown) tab PO BEDTIME RLS 11/15/19 11/15/19 (unknown) (no (unknown) (unknown) carvedilol 12.5 mg (units (unknown) date) tablet 12.5 mg PO BID unknown) 11/15/19 11/15/19 (unknown) (no (unknown) (unknown) cyclobenzaprine 10 (units (unknown) date) mg tablet 10 mg PO unknown) TID 11/15/19 11/15/19 (unknown) (no (unknown) (unknown) details: x 9 (uni ts (unknown) date) months unknown) (unknown) (no (unknown) (unknown) failure (units (unkno wn) date) unknown) (unknown) (no (unknown) (unknown) ferrous sulfate (units (unknown) date) Allergy Muscle Pain unknown) Verified 11/14/19 20:28 (unknown) (no (unknown) (unknown) gabapentin Allergy (units (unknown) date) Confusion Verified unknown) 11/14/19 20:28 (unknown) (no (unknown) (unknown) household members: (units (unknown) date) significant other unknown) (unknown) (no (unknown) (unknown) hydrochlorothiazide (unit s (unknown) date) 25 mg tablet 50 mg PO unknown) QDAY ##0 07/08/12 (unknown) (no (unknown) (unknown) hyperlipidemia, (units (unknown) date) diabetes, cognitive unknown) decline, hyperlipidemia, congestive heart (unknown) (no (unknown) (unknown) injector (Ozempic) (units (unknown) date) unknown) (unknown) (no (unknown) (unknown) insulin glargine 100 (uni ts (unknown) date) unit/mL 100 unit SQ unknown) DAILY ##0 07/08/12 11/15/19 (unknown) (no (unknown) (unknown) intramuscular oil (units (unknown) date) unknown) (unknown) (no (unknown) (unknown) lisinopril 20 mg (units (unknown) date) tablet 10 mg PO QDAY unknown) ##0 07/08/12 11/15/19 (unknown) (no (unknown) (unknown) marital status: (units (unknown) date) unknown) (unknown) (no (unknown) (unknown) mg/1.5 mL) (units (unk nown) date) subcutaneous pen unknown) (unknown) (no (unknown) (unknown) omeprazole 40 mg (units (unknown) date) capsule,delayed 40 mg unknown) PO DAILY ##0 07/08/12 11/15/19 (unknown) (no (unknown) (unknown) oxycodone 10 mg (units (unknown) date) tablet,crush 10 mg PO unknown) BID 11/15/19 11/15/19 (unknown) (no (unknown) (unknown) paroxysmal atrial (units (unknown) date) fibrillation unknown) anticoagulated on rivaroxaban, hypertension, (unknown) (no (unknown) (unknown) release (units (unkno wn) date) unknown) (unknown) (no (unknown) (unknown) resistant,extended (units (unknown) date) release 12 hr unknown) (unknown) (no (unknown) (unknown) rivaroxaban 20 mg (units (unknown) date) tablet (Xarelto) 20 unknown) mg PO DAILY 11/14/19 11/14/19 (unknown) (no (unknown) (unknown) semaglutide 0.25 mg (unit s (unknown) date) or 0.5 mg (2 0.25 mg unknown) SUBCUT QWEEK 11/15/19 11/15/19 (unknown) (no (unknown) (unknown) sildenafil 100 mg (units (unknown) date) tablet 100 mg PO unknown) DAILY PRN Sexual Activity 11/15/19 11/15/19 (unknown) (no (unknown) (unknown) subcutaneous (units (u nknown) date) solution (Lantus unknown) (unknown) (no (unknown) (unknown) tablet (units (unkno wn) date) unknown) (unknown) (no (unknown) (unknown) testosterone (units (u nknown) date) cypionate 200 mg/mL unknown) ##0 07/08/12 (unknown) (no (unknown) (unknown) zolpidem [From (units (unknown) date) Ambien] Allergy unknown) Confusion Verified 11/14/19 20:28 Result panel 6 (unknown) (no (unknown) (unknown) (no value) (units (unk nown) date) unknown) (unknown) (no (unknown) (unknown) [address] [place] [address] (units (unknown) date) unknown) (unknown) (no (unknown) (unknown) [place] [address] (unit s (unknown) date) unknown) (unknown) (no (unknown) (unknown) CT Scan Report (units (unknown) date) unknown) (unknown) (no (unknown) (unknown) [facility] (units (unknown) date) unknown) (unknown) (no (unknown) (unknown) Signed (units (unkno wn) date) unknown) (unknown) (no (unknown) (unknown) (no value) (units (unk nown) date) unknown) (unknown) (no (unknown) (unknown) 01/26/22 (units (unkno wn) date) unknown) (unknown) (no (unknown) (unknown) 1. Mildly (units (unkn own) date) hyperdense, unknown) irregular medial soft tissue mass without extension to (unknown) (no (unknown) (unknown) 2. No evidence of (units (unknown) date) underlying unknown) osteomyelitis. (unknown) (no (unknown) (unknown) 3. Very small (units ( unknown) date) nonspecific knee unknown) joint effusion. (unknown) (no (unknown) (unknown) 8.0 cm in AP (units (u nknown) date) diameter, and about unknown) 3.5 cm in thickness. There is no extension (unknown) (no (unknown) (unknown) Approved by: (units (u nknown) date) Brittny Moran M.D. unknown) on 01/26/2022 at 21:17 (unknown) (no (unknown) (unknown) Bones: No (units (unkn own) date) fractures. Normal unknown) bone alignment. There is chondrocalcinosis (unknown) (no (unknown) (unknown) COMPARISON: None. (units (unknown) date) unknown) (unknown) (no (unknown) (unknown) Dictated by: (units (u nknown) date) Brittny Moran M.D. unknown) on 01/26/2022 at 21:10 (unknown) (no (unknown) (unknown) FINDINGS: (units (unkn own) date) unknown) (unknown) (no (unknown) (unknown) IMPRESSION: (units (un known) date) unknown) (unknown) (no (unknown) (unknown) INDICATIONS: (units (u nknown) date) hemarthrosis, sepsis unknown) (unknown) (no (unknown) (unknown) Image quality: (units (unknown) date) Excellent. unknown) (unknown) (no (unknown) (unknown) Noncontrast 1-1.5 (units (unknown) date) mm axial sections unknown) acquired from the mid-patella to the (unknown) (no (unknown) (unknown) Soft tissues: There (unit s (unknown) date) are surgical clips unknown) in the medial leg. In the medial leg, (unknown) (no (unknown) (unknown) TECHNIQUE: (units (unk nown) date) unknown) (unknown) (no (unknown) (unknown) There is a very (units (unknown) date) small hypodense unknown) joint effusion present. Mild to moderate (unknown) (no (unknown) (unknown) calcification is (units (unknown) date) seen. Mild unknown) circumferential soft tissue edema. No significant (unknown) (no (unknown) (unknown) cellulitis, but (units (unknown) date) abscess is not unknown) entirely excluded. (unknown) (no (unknown) (unknown) circumscribed (units ( unknown) date) subcutaneous mass unknown) measuring approximately 9.5 cm in craniocaudal (unknown) (no (unknown) (unknown) lateral (units (unkno wn) date) compartment. No unknown) suspicious periostitis. (unknown) (no (unknown) (unknown) level of the knee (units (unknown) date) joint, there is an unknown) irregular, slightly hyperdense, but non (unknown) (no (unknown) (unknown) the vastus medialis (unit s (unknown) date) muscle. unknown) (unknown) (no (unknown) (unknown) thickening. (units (un known) date) unknown) (unknown) (no (unknown) (unknown) underlying joint (units (unknown) date) space. There might unknown) be slight thickening of the superficial (unknown) (no (unknown) (unknown) underlying joint. (units (unknown) date) This is likely a unknown) hematoma or contusion given lack of (unknown) (no (unknown) (unknown) with coronal and (units (unknown) date) sagittal reformats. unknown) (unknown) (no (unknown) (unknown) [id number] (units (unkno wn) date) unknown) (unknown) (no (unknown) (unknown) Accession Number: (units (unknown) date) [id number] unknown) (unknown) (no (unknown) (unknown) Age/Sex: 76 / M (units (unknown) date) Date of Service: unknown) (unknown) (no (unknown) (unknown) : 1945 (units (unknown) date) Acct:[id number] unknown) (unknown) (no (unknown) (unknown) Loc: ED (units (unkno wn) date) unknown) (unknown) (no (unknown) (unknown) Ordering Provider: (units (unknown) date) Ashley Glynn MD unknown) (unknown) (no (unknown) (unknown) PROCEDURE: CT LE LT (unit s (unknown) date) W CON unknown) (unknown) (no (unknown) (unknown) Patient: (units (unkno wn) date) Osmel Baxter MR#: unknown) M00 (unknown) (no (unknown) (unknown) Procedure: CT LE LT (unit s (unknown) date) wo con unknown) (unknown) (no (unknown) (unknown) atherosclerotic (units (unknown) date) unknown) (unknown) (no (unknown) (unknown) dimension, (units (unk nown) date) unknown) (unknown) (no (unknown) (unknown) fascia of (units (unkn own) date) unknown) (unknown) (no (unknown) (unknown) into the (units (unkno wn) date) unknown) (unknown) (no (unknown) (unknown) involving the (units ( unknown) date) unknown) (unknown) (no (unknown) (unknown) near the (units (unkno wn) date) unknown) (unknown) (no (unknown) (unknown) overlying (units (unkn own) date) unknown) (unknown) (no (unknown) (unknown) proximal tibia, (units (unknown) date) unknown) (unknown) (no (unknown) (unknown) skin (units (unkno wn) date) unknown) (unknown) (no (unknown) (unknown) the (units (unkno wn) date) unknown) Result panel 7 (unknown) (no (unknown) (unknown) (no value) (units (unk nown) date) unknown) (unknown) (no (unknown) (unknown) (no value) (units (unk nown) date) unknown) (unknown) (no (unknown) (unknown) [address] [place] [address] (units (unknown) date) unknown) (unknown) (no (unknown) (unknown) [place], [place] (units ( unknown) date) [id number] unknown) (unknown) (no (unknown) (unknown) CT Scan Report (units (unknown) date) unknown) (unknown) (no (unknown) (unknown) [facility] (units (unknown) date) unknown) (unknown) (no (unknown) (unknown) Signed (units (unkno wn) date) unknown) (unknown) (no (unknown) (unknown) (no value) (units (unk nown) date) unknown) (unknown) (no (unknown) (unknown) 01/26/22 (units (unkno wn) date) unknown) (unknown) (no (unknown) (unknown) 1. No CT evidence (units (unknown) date) of acute unknown) intracranial process. (unknown) (no (unknown) (unknown) 2. (units (unkno wn) date) Age-appropriate unknown) cerebral cortical volume loss and chronic microvascular (unknown) (no (unknown) (unknown) 3. 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 (unknown) (no (unknown) (unknown) Approved by: (units (u nknown) date) leona Martinez M.D. on 01/26/2022 at 21:09 (unknown) (no (unknown) (unknown) Brain: No (units (unkn own) date) intracranial unknown) bleeds or masses. There is cerebral volume loss for (unknown) (no (unknown) (unknown) COMPARISON: (units (un known) date) [facility], unknown) CT, CT HEAD/BRAIN WO [place], 09/25/2018, 11:11. (unknown) (no (unknown) (unknown) CSF spaces: Basal (units (unknown) date) cisterns are unknown) patent. No extra-axial fluid collections. The (unknown) (no (unknown) (unknown) Dictated by: (units (u nknown) date) Brittny Moran unknownMarilu Gonzalez on 01/26/2022 at 21:07 (unknown) (no (unknown) (unknown) FINDINGS: (units (unkn own) date) unknown) (unknown) (no (unknown) (unknown) IMPRESSION: (units (un known) date) unknown) (unknown) (no (unknown) (unknown) INDICATIONS: (units (u nknown) date) altered mental unknown) status (unknown) (no (unknown) (unknown) Image quality: (units (unknown) date) Excellent. unknown) (unknown) (no (unknown) (unknown) Noncontrast 4.5 (units (unknown) date) mm thick angled unknown) axial sections acquired from the foramen magnum (unknown) (no (unknown) (unknown) Sinuses: Mucosal (units (unknown) date) thickening and unknown) small fluid level in the left maxillary sinus. (unknown) (no (unknown) (unknown) Skull and face: (units (unknown) date) Calvarium and unknown) visualized facial bones appear intact, without (unknown) (no (unknown) (unknown) TECHNIQUE: (units (unk nown) date) unknown) (unknown) (no (unknown) (unknown) Visualized (units (unk nown) date) sinuses and unknown) mastoids are otherwise clear. (unknown) (no (unknown) (unknown) carotid artery (units (unknown) date) atherosclerosis. unknown) (unknown) (no (unknown) (unknown) changes. (units (unkno wn) date) unknown) (unknown) (no (unknown) (unknown) lesions. (units (unkno wn) date) unknown) (unknown) (no (unknown) (unknown) resultant (units (unkn own) date) ventricular and unknown) sulcal prominence. There are mild periventricular (unknown) (no (unknown) (unknown) size. (units (unkno wn) date) unknown) (unknown) (no (unknown) (unknown) ventricles are (units (unknown) date) symmetric in size unknown) and shape. (unknown) (no (unknown) (unknown) vertex, with (units (u nknown) date) coronal and unknown) sagittal reformats. For radiation dose reduction, the (unknown) (no (unknown) (unknown) was used: (units (unkn own) date) automated exposure unknown) control, adjustment of mA and/or kV according to (unknown) (no (unknown) (unknown) white matter (units (u nknown) date) chronic small unknown) vessel ischemic changes. There is intracranial (unknown) (no (unknown) (unknown) [id number] (units (unkno wn) date) unknown) (unknown) (no (unknown) (unknown) Accession Number: (units (unknown) date) [id number] unknown) (unknown) (no (unknown) (unknown) Age/Sex: 76 / M (units (unknown) date) Date of Service: unknown) (unknown) (no (unknown) (unknown) : 1945 (units (unknown) date) Acct:[id number] unknown) (unknown) (no (unknown) (unknown) Loc: ED (units (unkno wn) date) unknown) (unknown) (no (unknown) (unknown) Ordering (units (unkno wn) date) Provider: unknown) Ashley Glynn MD (unknown) (no (unknown) (unknown) PROCEDURE: CT (units ( unknown) date) HEAD/BRAIN WO CON unknown) (unknown) (no (unknown) (unknown) Patient: (units (unkno wn) date) Osmel Baxter R unknown) MR#: [id number] (unknown) (no (unknown) (unknown) Procedure: CT (units ( unknown) date) head/brain wo con unknown) (unknown) (no (unknown) (unknown) age, with (units (unkn own) date) unknown) (unknown) (no (unknown) (unknown) and deep (units (unkno wn) date) unknown) (unknown) (no (unknown) (unknown) following (units (unkn own) date) unknown) (unknown) (no (unknown) (unknown) internal (units (unkno wn) date) unknown) (unknown) (no (unknown) (unknown) ischemic (units (unkno wn) date) unknown) (unknown) (no (unknown) (unknown) patient (units (unkno wn) date) unknown) (unknown) (no (unknown) (unknown) suspicious (units (unk nown) date) unknown) (unknown) (no (unknown) (unknown) to the (units (unkno wn) date) unknown) Result panel 8 (unknown) (no (unknown) (unknown) Qty: 0 (units (unkno wn) date) unknown) (unknown) (no (unknown) (unknown) (no value) (units (unk nown) date) unknown) (unknown) (no (unknown) (unknown) Date of Service: (units (unknown) date) 01/26/22 unknown) (unknown) (no (unknown) (unknown) (no value) (units (unk nown) date) unknown) (unknown) (no (unknown) (unknown) 0.25 mg SUBCUT QWEEK (uni ts (unknown) date) unknown) (unknown) (no (unknown) (unknown) 1 tab PO BEDTIME (units (unknown) date) unknown) (unknown) (no (unknown) (unknown) 1,275 mg PO BID Qty: (uni ts (unknown) date) 0 unknown) (unknown) (no (unknown) (unknown) 10 mg PO BID (units (u nknown) date) unknown) (unknown) (no (unknown) (unknown) 10 mg PO QDAY Qty: 0 (uni ts (unknown) date) unknown) (unknown) (no (unknown) (unknown) 10 mg PO TID (units (u nknown) date) unknown) (unknown) (no (unknown) (unknown) 100 mg PO BID (units ( unknown) date) unknown) (unknown) (no (unknown) (unknown) 100 mg PO DAILY PRN (unit s (unknown) date) (Reason: Sexual unknown) Activity) (unknown) (no (unknown) (unknown) 100 unit SQ DAILY (units (unknown) date) Qty: 0 unknown) (unknown) (no (unknown) (unknown) 12.5 mg PO BID (units (unknown) date) unknown) (unknown) (no (unknown) (unknown) 20 mg PO DAILY (units (unknown) date) unknown) (unknown) (no (unknown) (unknown) 40 mg PO DAILY Qty: (unit s (unknown) date) 0 unknown) (unknown) (no (unknown) (unknown) 50 mg PO QDAY Qty: 0 (uni ts (unknown) date) unknown) (unknown) (no (unknown) (unknown) 81 mg PO QDAY Qty: 0 (uni ts (unknown) date) unknown) (unknown) (no (unknown) (unknown) Allergies (units (unkn own) date) unknown) (unknown) (no (unknown) (unknown) Emergency Report (units (unknown) date) unknown) (unknown) (no (unknown) (unknown) Home Medications (units (unknown) date) unknown) (unknown) (no (unknown) (unknown) [facility] [id number] (uni ts (unknown) date) [facility] [address] unknown) [place] [address] (unknown) (no (unknown) (unknown) (no value) (units (unk nown) date) unknown) (unknown) (no (unknown) (unknown) Lantus U-100 Insulin (uni ts (unknown) date) 100 UNIT/1 ML unknown) solution (unknown) (no (unknown) (unknown) Metformin (units (unkn own) date) Hydrochloride unknown) (GLUCOPHAGE) (unknown) (no (unknown) (unknown) Ozempic 0.25 mg or (units (unknown) date) 0.5 mg(2 mg/1.5 mL) unknown) Pen Injector (unknown) (no (unknown) (unknown) VITAMIN D (Vitamin (units (unknown) date) D3) unknown) (unknown) (no (unknown) (unknown) Xarelto 20 mg tablet (uni ts (unknown) date) unknown) (unknown) (no (unknown) (unknown) allopurinol 100 mg (units (unknown) date) Tablet unknown) (unknown) (no (unknown) (unknown) aspirin 81 MG (units ( unknown) date) tablet,chewable unknown) (unknown) (no (unknown) (unknown) atorvastatin 20 mg (units (unknown) date) Tablet unknown) (unknown) (no (unknown) (unknown) carbidopa-levodopa (units (unknown) date) 25-100 mg Tablet unknown) (unknown) (no (unknown) (unknown) carvedilol 12.5 mg (units (unknown) date) Tablet unknown) (unknown) (no (unknown) (unknown) cyclobenzaprine 10 (units (unknown) date) mg Tablet unknown) (unknown) (no (unknown) (unknown) hydrochlorothiazide (unit s (unknown) date) 25 MG tablet unknown) (unknown) (no (unknown) (unknown) lisinopril 20 MG (units (unknown) date) tablet unknown) (unknown) (no (unknown) (unknown) omeprazole 40 MG (units (unknown) date) capsule,delayed unknown) release(DR/EC) (unknown) (no (unknown) (unknown) oxycodone 10 mg (units (unknown) date) tablet,oral unknown) only,ext.rel.12 hr (unknown) (no (unknown) (unknown) sildenafil 100 mg (units (unknown) date) Tablet unknown) (unknown) (no (unknown) (unknown) testosterone (units (u nknown) date) cypionate unknown) [Depo-Testosterone] 200 MG/1 ML oil (unknown) (no (unknown) (unknown) Medication (units (unk nown) date) Instructions Recorded unknown) Confirmed (unknown) (no (unknown) (unknown) (Depo-Testosterone) (unit s (unknown) date) unknown) (unknown) (no (unknown) (unknown) (GLUCOPHAGE) (units (u nknown) date) unknown) (unknown) (no (unknown) (unknown) [id number] (units (unkno wn) date) unknown) (unknown) (no (unknown) (unknown) 76-year-old (units (un known) date) gentleman with a unknown) history of coronary artery disease post CABG x4, (unknown) (no (unknown) (unknown) Abdomen: Soft, mild (unit s (unknown) date) distention but unknown) nontender, good bowel tones, no flank pain (unknown) (no (unknown) (unknown) Age/Sex: 76 / M (units (unknown) date) unknown) (unknown) (no (unknown) (unknown) Allergy/AdvReac Type (uni ts (unknown) date) Severity Reaction unknown) Status Date / Time (unknown) (no (unknown) (unknown) Anti-Inflamma (units ( unknown) date) disease unknown) (unknown) (no (unknown) (unknown) Atrial fibrillation (unit s (unknown) date) unknown) (unknown) (no (unknown) (unknown) Cardiac: Regular (units (unknown) date) rate and rhythm no unknown) murmurs no bruits (unknown) (no (unknown) (unknown) Chief complaint: (units (unknown) date) Skin/Abscess/Foreign unknown) Body (unknown) (no (unknown) (unknown) Coronary artery (units (unknown) date) disease unknown) (unknown) (no (unknown) (unknown) : 1945 (units (unknown) date) Acct:[id number] unknown) (unknown) (no (unknown) (unknown) Departure (units (unkn own) date) unknown) (unknown) (no (unknown) (unknown) Diabetes (units (unkno wn) date) unknown) (unknown) (no (unknown) (unknown) Discharge Plan (units (unknown) date) unknown) (unknown) (no (unknown) (unknown) Dyslipidemia (units (u nknown) date) unknown) (unknown) (no (unknown) (unknown) ER Physician: (units ( unknown) date) Ashley Glynn MD unknown) (unknown) (no (unknown) (unknown) Exam (units (unkno wn) date) unknown) (unknown) (no (unknown) (unknown) Extremities: Left (units (unknown) date) leg is described unknown) under the skin exam. Reasonable capillary (unknown) (no (unknown) (unknown) Full and symmetrical (uni ts (unknown) date) air movement unknown) (unknown) (no (unknown) (unknown) General (units (unkno wn) date) unknown) (unknown) (no (unknown) (unknown) General: Chronically (unit s (unknown) date) ill-appearing, pale, unknown) weak but in no acute distress. He is (unknown) (no (unknown) (unknown) HEENT: Moist mucous (unit s (unknown) date) membranes, normal unknown) sclera with reactive pupils, pale mucous (unknown) (no (unknown) (unknown) HPI - General Adult (unit s (unknown) date) unknown) (unknown) (no (unknown) (unknown) HPI narrative: (units (unknown) date) unknown) (unknown) (no (unknown) (unknown) History of Present (units (unknown) date) Illness unknown) (unknown) (no (unknown) (unknown) Hx of (units (unkno wn) date) cholecystectomy unknown) (unknown) (no (unknown) (unknown) Hypertension (units (u nknown) date) unknown) (unknown) (no (unknown) (unknown) Initial Vital Signs (unit s (unknown) date) unknown) (unknown) (no (unknown) (unknown) Initial Vital Signs: (uni ts (unknown) date) unknown) (unknown) (no (unknown) (unknown) Medical History (units (unknown) date) (Reviewed 11/15/19 @ unknown) 04:28 by MEKA Garcia) (unknown) (no (unknown) (unknown) Metformin (units (unkn own) date) Hydrochloride 1,275 unknown) mg PO BID ##0 07/08/12 (unknown) (no (unknown) (unknown) Miscellaneous,Doctor (uni ts (unknown) date) , MD [Primary Care unknown) Provider] - (unknown) (no (unknown) (unknown) NSAIDS (units (unkno wn) date) (Non-Steroidal unknown) AdvReac Severe kidney Verified 11/14/19 20:28 (unknown) (no (unknown) (unknown) Neck: No JVD, supple (uni ts (unknown) date) unknown) (unknown) (no (unknown) (unknown) Neurologic: Globally (uni ts (unknown) date) weak but able to move unknown) all extremities (unknown) (no (unknown) (unknown) No Action (units (unkn own) date) unknown) (unknown) (no (unknown) (unknown) Patient History (units (unknown) date) unknown) (unknown) (no (unknown) (unknown) Patient: (units (unkno wn) date) Osmel Baxter MR#: unknown) M000 (unknown) (no (unknown) (unknown) Prescriptions: (units (unknown) date) unknown) (unknown) (no (unknown) (unknown) Psych: Will respond (unit s (unknown) date) to yes or no unknown) questions but otherwise altered. (unknown) (no (unknown) (unknown) ROS Unobtainable: (units (unknown) date) Unobtainable due to unknown) mental condition (unknown) (no (unknown) (unknown) Referrals: (units (unk nown) date) unknown) (unknown) (no (unknown) (unknown) Related Data (units (u nknown) date) unknown) (unknown) (no (unknown) (unknown) Respiratory: Lungs (units (unknown) date) are clear to unknown) auscultation, no wheezing no rales no rhonchi. (unknown) (no (unknown) (unknown) Review of Systems (units (unknown) date) unknown) (unknown) (no (unknown) (unknown) S/P CABG x 4 (units (u nknown) date) unknown) (unknown) (no (unknown) (unknown) Signed By: (units (unk nown) date) unknown) (unknown) (no (unknown) (unknown) Skin: Pale, Warm and (uni ts (unknown) date) dry, multiple bruises unknown) some look like there from recent (unknown) (no (unknown) (unknown) Sleep apnea (units (un known) date) unknown) (unknown) (no (unknown) (unknown) Smoking Status: (units (unknown) date) Former smoker unknown) (unknown) (no (unknown) (unknown) Smoking Status: (units (unknown) date) Former smoker unknown) (unknown) (no (unknown) (unknown) Social History (units (unknown) date) (Updated 09/25/18 @ unknown) 11:17 by Telma Dickey DO) (unknown) (no (unknown) (unknown) Stated complaint: (units (unknown) date) Dementia unknown) (unknown) (no (unknown) (unknown) Substance Use Type: (unit s (unknown) date) does not use unknown) (unknown) (no (unknown) (unknown) Surgical History (units (unknown) date) (Reviewed 11/15/19 @ unknown) 04:28 by MEKA Garcia) (unknown) (no (unknown) (unknown) Time Seen by (units (u nknown) date) Provider: 01/26/22 unknown) 19:49 (unknown) (no (unknown) (unknown) U-100 Insulin) (units (unknown) date) unknown) (unknown) (no (unknown) (unknown) VITAMIN D (Vitamin (units (unknown) date) D3) ##0 07/08/12 unknown) (unknown) (no (unknown) (unknown) additional records (units (unknown) date) are present. He is unknown) weak, confused, cooperative he has an (unknown) (no (unknown) (unknown) alcohol intake (units (unknown) date) frequency: unknown) holidays/special occasions only (unknown) (no (unknown) (unknown) allopurinol 100 mg (units (unknown) date) tablet 100 mg PO BID unknown) 11/15/19 11/15/19 (unknown) (no (unknown) (unknown) and concerned that (units (unknown) date) ?times he is not unknown) completely aware?. No additional history is (unknown) (no (unknown) (unknown) and developing (units (unknown) date) cellulitis, multiple unknown) bruises all over. He is pale but not (unknown) (no (unknown) (unknown) aspirin 81 mg (units ( unknown) date) chewable tablet 81 mg unknown) PO QDAY ##0 07/08/12 11/15/19 (unknown) (no (unknown) (unknown) atorvastatin 20 mg (units (unknown) date) tablet 20 mg PO DAILY unknown) 11/15/19 11/15/19 (unknown) (no (unknown) (unknown) available. There is (unit s (unknown) date) a med list that was unknown) printed out from the end of December it (unknown) (no (unknown) (unknown) carbidopa 25 (units (u nknown) date) mg-levodopa 100 mg 1 unknown) tab PO BEDTIME RLS 11/15/19 11/15/19 (unknown) (no (unknown) (unknown) carvedilol 12.5 mg (units (unknown) date) tablet 12.5 mg PO BID unknown) 11/15/19 11/15/19 (unknown) (no (unknown) (unknown) complaining of (units (unknown) date) headache. He will unknown) open his eyes to command but not oriented to (unknown) (no (unknown) (unknown) cyclobenzaprine 10 (units (unknown) date) mg tablet 10 mg PO unknown) TID 11/15/19 11/15/19 (unknown) (no (unknown) (unknown) details: x 9 (uni ts (unknown) date) months unknown) (unknown) (no (unknown) (unknown) developing mild (units (unknown) date) erythema. Left knee unknown) with a very large bulla/hematoma on the (unknown) (no (unknown) (unknown) excoriation on the (units (unknown) date) medial aspect of his unknown) foot from the splint as well. (unknown) (no (unknown) (unknown) failure and (units (un known) date) Parkinson's his son unknown) called with concerns for his overall well-being (unknown) (no (unknown) (unknown) ferrous sulfate (units (unknown) date) Allergy Muscle Pain unknown) Verified 11/14/19 20:28 (unknown) (no (unknown) (unknown) from his knee with (units (unknown) date) minimal range of unknown) motion at the knee. He also has a dressing (unknown) (no (unknown) (unknown) fully assess. It (units (unknown) date) clearly is more than unknown) a couple of days old appears exacerbated (unknown) (no (unknown) (unknown) gabapentin Allergy (units (unknown) date) Confusion Verified unknown) 11/14/19 20:28 (unknown) (no (unknown) (unknown) hospitalization and (unit s (unknown) date) some from his very unknown) frail skin. Area of excoriation on the (unknown) (no (unknown) (unknown) household members: (units (unknown) date) significant other unknown) (unknown) (no (unknown) (unknown) hydrochlorothiazide (unit s (unknown) date) 25 mg tablet 50 mg PO unknown) QDAY ##0 07/08/12 (unknown) (no (unknown) (unknown) hyperlipidemia, (units (unknown) date) diabetes, cognitive unknown) decline, hyperlipidemia, congestive heart (unknown) (no (unknown) (unknown) if not caused from (units (unknown) date) the splint that had unknown) been in place. There is an area of (unknown) (no (unknown) (unknown) in place on the left (uni ts (unknown) date) forearm with unknown) underlying skin irritation shallow ulceration (unknown) (no (unknown) (unknown) injector (Ozempic) (units (unknown) date) unknown) (unknown) (no (unknown) (unknown) insulin glargine 100 (uni ts (unknown) date) unit/mL 100 unit SQ unknown) DAILY ##0 07/08/12 11/15/19 (unknown) (no (unknown) (unknown) into the top of his (unit s (unknown) date) foot and has a unknown) significant abrasion with large hematoma to (unknown) (no (unknown) (unknown) intramuscular oil (units (unknown) date) unknown) (unknown) (no (unknown) (unknown) left forearm with a (unit s (unknown) date) small area of unknown) ulceration without underlying abscess (unknown) (no (unknown) (unknown) lisinopril 20 mg (units (unknown) date) tablet 10 mg PO QDAY unknown) ##0 07/08/12 11/15/19 (unknown) (no (unknown) (unknown) looks like it could (unit s (unknown) date) have been associated unknown) with [facility] and (unknown) (no (unknown) (unknown) looks like it may be (uni ts (unknown) date) from [facility] who unknown) will follow-up on this to see if (unknown) (no (unknown) (unknown) marital status: (units (unknown) date) unknown) (unknown) (no (unknown) (unknown) medial aspect it (units (unknown) date) does not appear to be unknown) intra-articular but it is difficult to (unknown) (no (unknown) (unknown) membranes (units (unkn own) date) unknown) (unknown) (no (unknown) (unknown) mg/1.5 mL) (units (unk nown) date) subcutaneous pen unknown) (unknown) (no (unknown) (unknown) not tachypneic and (units (unknown) date) is able to speak in unknown) full sentences (unknown) (no (unknown) (unknown) omeprazole 40 mg (units (unknown) date) capsule,delayed 40 mg unknown) PO DAILY ##0 01/31/13 06/09/20 (unknown) (no (unknown) (unknown) ortho glass splint (units (unknown) date) on the medial aspect unknown) of his left lower leg that is abrading (unknown) (no (unknown) (unknown) oxycodone 10 mg (units (unknown) date) tablet,crush 10 mg PO unknown) BID 11/15/19 11/15/19 (unknown) (no (unknown) (unknown) paroxysmal atrial (units (unknown) date) fibrillation unknown) anticoagulated on rivaroxaban, hypertension, (unknown) (no (unknown) (unknown) person time place (units (unknown) date) it. He states he is unknown) not in any pain at this time. (unknown) (no (unknown) (unknown) refill both lower (units (unknown) date) extremities. unknown) (unknown) (no (unknown) (unknown) release (units (unkno wn) date) unknown) (unknown) (no (unknown) (unknown) resistant,extended (units (unknown) date) release 12 hr unknown) (unknown) (no (unknown) (unknown) rivaroxaban 20 mg (units (unknown) date) tablet (Xarelto) 20 unknown) mg PO DAILY 11/14/19 11/14/19 (unknown) (no (unknown) (unknown) semaglutide 0.25 mg (unit s (unknown) date) or 0.5 mg (2 0.25 mg unknown) SUBCUT QWEEK 11/15/19 11/15/19 (unknown) (no (unknown) (unknown) sildenafil 100 mg (units (unknown) date) tablet 100 mg PO unknown) DAILY PRN Sexual Activity 11/15/19 11/15/19 (unknown) (no (unknown) (unknown) subcutaneous (units (u nknown) date) solution (Lantus unknown) (unknown) (no (unknown) (unknown) tablet (units (unkno wn) date) unknown) (unknown) (no (unknown) (unknown) testosterone (units (u nknown) date) cypionate 200 mg/mL unknown) ##0 07/08/12 (unknown) (no (unknown) (unknown) the medial aspect of (uni ts (unknown) date) his left knee with unknown) bruising extending proximal and distal (unknown) (no (unknown) (unknown) zolpidem [From (units (unknown) date) Ambien] Allergy unknown) Confusion Verified 11/14/19 20:28 Result panel 9 (unknown) (no date) (unknown) (unknown) 0.50 ng/mL (unkn own) (unknown) (no date) (unknown) (unknown) 1.0 (units unknown) (unknown) (unknown) (no date) (unknown) (unknown) 1.5 mg/dL (unkn own) (unknown) (no date) (unknown) (unknown) 130 mg/dL (unkn own) (unknown) (no date) (unknown) (unknown) 132 mmol/L (unkn own) (unknown) (no date) (unknown) (unknown) 135 U/L (unkn own) (unknown) (no date) (unknown) (unknown) 170 U/L (unkn own) (unknown) (no date) (unknown) (unknown) 19 mL/min (unkn own) (unknown) (no date) (unknown) (unknown) 19.2 (units unknown) (unknown) (unknown) (no date) (unknown) (unknown) 27 IU/L (unkn own) (unknown) (no date) (unknown) (unknown) 27 mmol/L (unkn own) (unknown) (no date) (unknown) (unknown) 28 IU/L (unkn own) (unknown) (no date) (unknown) (unknown) 3.18 mg/dL (unkn own) (unknown) (no date) (unknown) (unknown) 3.5 g/dL (unkn own) (unknown) (no date) (unknown) (unknown) 3.6 g/dL (unkn own) (unknown) (no date) (unknown) (unknown) 4.3 mmol/L (unkn own) (unknown) (no date) (unknown) (unknown) 61 mg/dL (unkn own) (unknown) (no date) (unknown) (unknown) 7.1 g/dL (unkn own) (unknown) (no date) (unknown) (unknown) 8.4 mg/dL (unkn own) (unknown) (no date) (unknown) (unknown) 97 mmol/L (unkn own) Result panel 10 (unknown) (no date) (unknown) (unknown) 1.0 % (unkn own) (unknown) (no date) (unknown) (unknown) 100 /uL (unkn own) (unknown) (no date) (unknown) (unknown) 11.4 % (unkn own) (unknown) (no date) (unknown) (unknown) 2.75 X10 6/uL (unkn own) (unknown) (no date) (unknown) (unknown) 2.8 % (unkn own) (unknown) (no date) (unknown) (unknown) 20.8 % (unkn own) (unknown) (no date) (unknown) (unknown) 200 /uL (unkn own) (unknown) (no date) (unknown) (unknown) 206 X10 3/uL (unkn own) (unknown) (no date) (unknown) (unknown) 24.5 % (unkn own) (unknown) (no date) (unknown) (unknown) 24.6 PG (unkn own) (unknown) (no date) (unknown) (unknown) 3+ (units unknown) (unknown) (unknown) (no date) (unknown) (unknown) 32.4 % (unkn own) (unknown) (no date) (unknown) (unknown) 5400 /uL (unkn own) (unknown) (no date) (unknown) (unknown) 6.7 g/dL (unkn own) (unknown) (no date) (unknown) (unknown) 7.1 X10 3/uL (unkn own) (unknown) (no date) (unknown) (unknown) 700 /uL (unkn own) (unknown) (no date) (unknown) (unknown) 75.0 % (unkn own) (unknown) (no date) (unknown) (unknown) 75.7 fL (unkn own) (unknown) (no date) (unknown) (unknown) 800 /uL (unkn own) (unknown) (no date) (unknown) (unknown) 9.8 % (unkn own) Result panel 11 (unknown) (no date) (unknown) (unknown) Negative (units (unkn own) unknown) Result panel 12 (unknown) (no date) (unknown) (unknown) TRANSFUSED (units (un known) PRODUCT: Packed unknown) Cells COUNT: 1 Result panel 13 (unknown) (no date) (unknown) (unknown) TRANSFUSED (units (un known) PRODUCT: Packed unknown) Cells COUNT: 1 Result panel 14 (unknown) (no date) (unknown) (unknown) TRANSFUSED (units (un known) PRODUCT: Packed unknown) Cells COUNT: 1 Result panel 15 (unknown) (no date) (unknown) (unknown) TRANSFUSED (units (un known) PRODUCT: Packed unknown) Cells COUNT: 1 Result panel 16 (unknown) (no date) (unknown) (unknown) TRANSFUSED (units (un known) PRODUCT: Packed unknown) Cells COUNT: 1 Result panel 17 (unknown) (no date) (unknown) (unknown) TRANSFUSED (units (un known) PRODUCT: Packed unknown) Cells COUNT: 1 Result panel 18 (unknown) (no date) (unknown) (unknown) TRANSFUSED (units (un known) PRODUCT: Packed unknown) Cells COUNT: 1 Result panel 19 (unknown) (no date) (unknown) (unknown) A Negative (units (un known) unknown) (unknown) (no date) (unknown) (unknown) NEGATIVE (units (unkn own) unknown) (unknown) (no date) (unknown) (unknown) TRANSFUSED (units (un known) PRODUCT: Packed unknown) Cells COUNT: 2 Result panel 20 (unknown) (no date) (unknown) (unknown) A Negative (units (un known) unknown) (unknown) (no date) (unknown) (unknown) NEGATIVE (units (unkn own) unknown) (unknown) (no date) (unknown) (unknown) TRANSFUSED (units (un known) PRODUCT: Packed unknown) Cells COUNT: 2 Result panel 21 (unknown) (no (unknown) (unknown) Qty: 0 (units (unkno wn) date) unknown) (unknown) (no (unknown) (unknown) (no value) (units (unk nown) date) unknown) (unknown) (no (unknown) (unknown) Date of Service: (units (unknown) date) 01/26/22 unknown) (unknown) (no (unknown) (unknown) (no value) (units (unk nown) date) unknown) (unknown) (no (unknown) (unknown) 0.25 mg SUBCUT QWEEK (uni ts (unknown) date) unknown) (unknown) (no (unknown) (unknown) 01/26/22 19:40 (units (unknown) date) unknown) (unknown) (no (unknown) (unknown) 1 tab PO BEDTIME (units (unknown) date) unknown) (unknown) (no (unknown) (unknown) 1,275 mg PO BID Qty: (uni ts (unknown) date) 0 unknown) (unknown) (no (unknown) (unknown) 10 mg PO BID (units (u nknown) date) unknown) (unknown) (no (unknown) (unknown) 10 mg PO QDAY Qty: 0 (uni ts (unknown) date) unknown) (unknown) (no (unknown) (unknown) 10 mg PO TID (units (u nknown) date) unknown) (unknown) (no (unknown) (unknown) 100 mg PO BID (units ( unknown) date) unknown) (unknown) (no (unknown) (unknown) 100 mg PO DAILY PRN (unit s (unknown) date) (Reason: Sexual unknown) Activity) (unknown) (no (unknown) (unknown) 100 unit SQ DAILY (units (unknown) date) Qty: 0 unknown) (unknown) (no (unknown) (unknown) 12.5 mg PO BID (units (unknown) date) unknown) (unknown) (no (unknown) (unknown) 20 mg PO DAILY (units (unknown) date) unknown) (unknown) (no (unknown) (unknown) 40 mg PO DAILY Qty: (unit s (unknown) date) 0 unknown) (unknown) (no (unknown) (unknown) 50 mg PO QDAY Qty: 0 (uni ts (unknown) date) unknown) (unknown) (no (unknown) (unknown) 81 mg PO QDAY Qty: 0 (uni ts (unknown) date) unknown) (unknown) (no (unknown) (unknown) Admin: 01/26/22 (units (unknown) date) 20:35 Dose: 1,000 unknown) mls/hr (unknown) (no (unknown) (unknown) Admin: 01/26/22 (units (unknown) date) 20:35 Dose: 200 unknown) mls/hr (unknown) (no (unknown) (unknown) Admin: 01/26/22 (units (unknown) date) 20:36 Dose: 1,000 unknown) mls/hr (unknown) (no (unknown) (unknown) Admin: 01/26/22 (units (unknown) date) 21:32 Dose: 200 unknown) mls/hr (unknown) (no (unknown) (unknown) Allergies (units (unkn own) date) unknown) (unknown) (no (unknown) (unknown) Documented By: K[facility] (units (unknown) date) unknown) (unknown) (no (unknown) (unknown) Documented By: OW (units (unknown) date) unknown) (unknown) (no (unknown) (unknown) Documented By: ZGG (units (unknown) date) unknown) (unknown) (no (unknown) (unknown) ED Orders (units (unkn own) date) unknown) (unknown) (no (unknown) (unknown) Emergency Report (units (unknown) date) unknown) (unknown) (no (unknown) (unknown) Home Medications (units (unknown) date) unknown) (unknown) (no (unknown) (unknown) Infusion: 01/26/22 (units (unknown) date) 21:00 Dose: 0 mls/hr unknown) (unknown) (no (unknown) (unknown) [facility] [id number] (uni ts (unknown) date) [address] unknown) [place] [address] (unknown) (no (unknown) (unknown) Lab Results (units (un known) date) unknown) (unknown) (no (unknown) (unknown) Last Admin: 01/26/22 (uni ts (unknown) date) 22:33 Dose: Not Given unknown) (unknown) (no (unknown) (unknown) Last Infusion: (units (unknown) date) 01/26/22 21:00 Dose: unknown) 200 mls/hr (unknown) (no (unknown) (unknown) Last Infusion: (units (unknown) date) 01/26/22 22:33 Dose: unknown) 0 mls/hr (unknown) (no (unknown) (unknown) Last Infusion: (units (unknown) date) 01/26/22 22:34 Dose: unknown) 0 mls/hr (unknown) (no (unknown) (unknown) Stop: 01/26/22 20:08 (uni ts (unknown) date) unknown) (unknown) (no (unknown) (unknown) Stop: 01/26/22 20:51 (uni ts (unknown) date) unknown) (unknown) (no (unknown) (unknown) Stop: 01/26/22 21:09 (uni ts (unknown) date) unknown) (unknown) (no (unknown) (unknown) Stop: 01/26/22 22:14 (uni ts (unknown) date) unknown) (unknown) (no (unknown) (unknown) Urine Dip (units (unkn own) date) unknown) (unknown) (no (unknown) (unknown) Vital Signs - 8 hr (units (unknown) date) unknown) (unknown) (no (unknown) (unknown) (no value) (units (unk nown) date) unknown) (unknown) (no (unknown) (unknown) 01/26/22 01/26/22 (units (unknown) date) 01/26/22 Range/Units unknown) (unknown) (no (unknown) (unknown) 01/26/22 01/26/22 (units (unknown) date) Range/Units unknown) (unknown) (no (unknown) (unknown) 19:40 19:40 19:40 (units (unknown) date) unknown) (unknown) (no (unknown) (unknown) 20:21 20:47 (units (un known) date) unknown) (unknown) (no (unknown) (unknown) Lantus U-100 Insulin (uni ts (unknown) date) 100 UNIT/1 ML unknown) solution (unknown) (no (unknown) (unknown) Metformin (units (unkn own) date) Hydrochloride unknown) (GLUCOPHAGE) (unknown) (no (unknown) (unknown) Ozempic 0.25 mg or (units (unknown) date) 0.5 mg(2 mg/1.5 mL) unknown) Pen Injector (unknown) (no (unknown) (unknown) VITAMIN D (Vitamin (units (unknown) date) D3) unknown) (unknown) (no (unknown) (unknown) Xarelto 20 mg tablet (uni ts (unknown) date) unknown) (unknown) (no (unknown) (unknown) allopurinol 100 mg (units (unknown) date) Tablet unknown) (unknown) (no (unknown) (unknown) aspirin 81 MG (units ( unknown) date) tablet,chewable unknown) (unknown) (no (unknown) (unknown) atorvastatin 20 mg (units (unknown) date) Tablet unknown) (unknown) (no (unknown) (unknown) carbidopa-levodopa (units (unknown) date) 25-100 mg Tablet unknown) (unknown) (no (unknown) (unknown) carvedilol 12.5 mg (units (unknown) date) Tablet unknown) (unknown) (no (unknown) (unknown) cyclobenzaprine 10 (units (unknown) date) mg Tablet unknown) (unknown) (no (unknown) (unknown) hydrochlorothiazide (unit s (unknown) date) 25 MG tablet unknown) (unknown) (no (unknown) (unknown) lisinopril 20 MG (units (unknown) date) tablet unknown) (unknown) (no (unknown) (unknown) omeprazole 40 MG (units (unknown) date) capsule,delayed unknown) release(DR/EC) (unknown) (no (unknown) (unknown) oxycodone 10 mg (units (unknown) date) tablet,oral unknown) only,ext.rel.12 hr (unknown) (no (unknown) (unknown) sildenafil 100 mg (units (unknown) date) Tablet unknown) (unknown) (no (unknown) (unknown) testosterone (units (u nknown) date) cypionate unknown) [Depo-Testosterone] 200 MG/1 ML oil (unknown) (no (unknown) (unknown) 01/26/22 (units (unkno wn) date) unknown) (unknown) (no (unknown) (unknown) Medication (units (unk nown) date) Instructions Recorded unknown) Confirmed (unknown) (no (unknown) (unknown) (Depo-Testosterone) (unit s (unknown) date) unknown) (unknown) (no (unknown) (unknown) (GLUCOPHAGE) (units (u nknown) date) unknown) (unknown) (no (unknown) (unknown) 01/26/22 19:40 (units (unknown) date) unknown) (unknown) (no (unknown) (unknown) 01/26/22 19:45 (units (unknown) date) unknown) (unknown) (no (unknown) (unknown) 01/26/22 19:52 (units (unknown) date) unknown) (unknown) (no (unknown) (unknown) 01/26/22 20:07 (units (unknown) date) unknown) (unknown) (no (unknown) (unknown) 01/26/22 20:09 (units (unknown) date) unknown) (unknown) (no (unknown) (unknown) 01/26/22 20:15 (units (unknown) date) unknown) (unknown) (no (unknown) (unknown) 01/26/22 20:21 (units (unknown) date) unknown) (unknown) (no (unknown) (unknown) 01/26/22 20:47 (units (unknown) date) unknown) (unknown) (no (unknown) (unknown) 01/26/22 21:56 (units (unknown) date) unknown) (unknown) (no (unknown) (unknown) 19:44 01/26/22 (units (unknown) date) unknown) (unknown) (no (unknown) (unknown) 20:34 01/26/22 (units (unknown) date) unknown) (unknown) (no (unknown) (unknown) 20:41 (units (unkno wn) date) unknown) (unknown) (no (unknown) (unknown) 21:00 01/26/22 (units (unknown) date) unknown) (unknown) (no (unknown) (unknown) 21:25 (units (unkno wn) date) unknown) (unknown) (no (unknown) (unknown) 21:30 01/26/22 (units (unknown) date) unknown) (unknown) (no (unknown) (unknown) 21:45 01/26/22 (units (unknown) date) unknown) (unknown) (no (unknown) (unknown) 22:35 01/26/22 (units (unknown) date) unknown) (unknown) (no (unknown) (unknown) 22:50 (units (unkno wn) date) unknown) (unknown) (no (unknown) (unknown) 22:51 01/26/22 (units (unknown) date) unknown) (unknown) (no (unknown) (unknown) 23:04 (units (unkno wn) date) unknown) (unknown) (no (unknown) (unknown) [id number] (units (unkno wn) date) unknown) (unknown) (no (unknown) (unknown) 76-year-old (units (un known) date) gentleman with a unknown) history of coronary artery disease post CABG x4, (unknown) (no (unknown) (unknown) ALT (<50) IU/L (units (unknown) date) unknown) (unknown) (no (unknown) (unknown) ALT 27 (<50) IU/L (units (unknown) date) unknown) (unknown) (no (unknown) (unknown) AST (17-59) IU/L (units (unknown) date) unknown) (unknown) (no (unknown) (unknown) AST 28 (17-59) IU/L (unit s (unknown) date) unknown) (unknown) (no (unknown) (unknown) Abdomen: Soft, mild (unit s (unknown) date) distention but unknown) nontender, good bowel tones, no flank pain (unknown) (no (unknown) (unknown) Age/Sex: 76 / M (units (unknown) date) unknown) (unknown) (no (unknown) (unknown) Albumin (3.5-5.0) (units (unknown) date) g/dL unknown) (unknown) (no (unknown) (unknown) Albumin 3.6 (units (un known) date) (3.5-5.0) g/dL unknown) (unknown) (no (unknown) (unknown) Albumin/Globulin (units (unknown) date) Ratio (1.0-2.8) unknown) (unknown) (no (unknown) (unknown) Albumin/Globulin (units (unknown) date) Ratio 1.0 (1.0-2.8) unknown) (unknown) (no (unknown) (unknown) Alkaline Phosphatase (uni ts (unknown) date) (38-126) U/L unknown) (unknown) (no (unknown) (unknown) Alkaline Phosphatase (uni ts (unknown) date) 170 H (38-126) U/L unknown) (unknown) (no (unknown) (unknown) Allergy/AdvReac Type (uni ts (unknown) date) Severity Reaction unknown) Status Date / Time (unknown) (no (unknown) (unknown) Anisocytosis (units (u nknown) date) unknown) (unknown) (no (unknown) (unknown) Anisocytosis 3+ H (units (unknown) date) unknown) (unknown) (no (unknown) (unknown) Anti-Inflamma (units ( unknown) date) disease unknown) (unknown) (no (unknown) (unknown) Antibody Screen (units (unknown) date) unknown) (unknown) (no (unknown) (unknown) Antibody Screen (units (unknown) date) Negative unknown) (unknown) (no (unknown) (unknown) Atrial fibrillation (unit s (unknown) date) unknown) (unknown) (no (unknown) (unknown) BUN (9-20) mg/dL (units (unknown) date) unknown) (unknown) (no (unknown) (unknown) BUN 61 H (9-20) (units (unknown) date) mg/dL unknown) (unknown) (no (unknown) (unknown) BUN/Creatinine Ratio (uni ts (unknown) date) (6-22) unknown) (unknown) (no (unknown) (unknown) BUN/Creatinine Ratio (uni ts (unknown) date) 19.2 (6-22) unknown) (unknown) (no (unknown) (unknown) Baso # (Auto) (units ( unknown) date) (0-100) /uL unknown) (unknown) (no (unknown) (unknown) Baso # (Auto) 100 (units (unknown) date) (0-100) /uL unknown) (unknown) (no (unknown) (unknown) Baso % (Auto) (0-2) (unit s (unknown) date) % unknown) (unknown) (no (unknown) (unknown) Baso % (Auto) 1.0 (units (unknown) date) (0-2) % unknown) (unknown) (no (unknown) (unknown) Bedside Urine (units ( unknown) date) Bilirubin - Negative unknown) (unknown) (no (unknown) (unknown) Bedside Urine (units ( unknown) date) Glucose 500 mg/dl unknown) (unknown) (no (unknown) (unknown) Bedside Urine Ketone (uni ts (unknown) date) - Negative unknown) (unknown) (no (unknown) (unknown) Bedside Urine (units ( unknown) date) Leukocytes +/- 15 unknown) (unknown) (no (unknown) (unknown) Bedside Urine (units ( unknown) date) Nitrite - Negative unknown) (unknown) (no (unknown) (unknown) Bedside Urine Occult (uni ts (unknown) date) Blood +/- unknown) (unknown) (no (unknown) (unknown) Bedside Urine (units ( unknown) date) Protein - Negative unknown) (unknown) (no (unknown) (unknown) Bedside Urine (units ( unknown) date) Urobilinogen - unknown) Negative (unknown) (no (unknown) (unknown) Bedside Urine pH 5.5 (uni ts (unknown) date) unknown) (unknown) (no (unknown) (unknown) Blood Culture Stat (units (unknown) date) unknown) (unknown) (no (unknown) (unknown) Blood Pressure 78/54 (uni ts (unknown) date) L 01/26/22 19:44 unknown) (unknown) (no (unknown) (unknown) Blood Pressure 78/54 (uni ts (unknown) date) L 102/52 L unknown) (unknown) (no (unknown) (unknown) Blood Pressure 94/46 (uni ts (unknown) date) L 95/55 L 98/52 L unknown) (unknown) (no (unknown) (unknown) Blood Pressure 98/52 (uni ts (unknown) date) L 95/54 L 95/50 L unknown) (unknown) (no (unknown) (unknown) Blood Pressure 98/52 (uni ts (unknown) date) L 97/52 L unknown) (unknown) (no (unknown) (unknown) Blood Type (units (unk nown) date) unknown) (unknown) (no (unknown) (unknown) Blood Type A (units (u nknown) date) Negative unknown) (unknown) (no (unknown) (unknown) COVID19 -Nasal (units (unknown) date) RAPID/Pre-Proc Stat unknown) (unknown) (no (unknown) (unknown) CT LE LT wo con Stat (uni ts (unknown) date) unknown) (unknown) (no (unknown) (unknown) CT head/brain wo con (uni ts (unknown) date) Stat unknown) (unknown) (no (unknown) (unknown) Calcium (8.4-10.2) (units (unknown) date) mg/dL unknown) (unknown) (no (unknown) (unknown) Calcium 8.4 (units (un known) date) (8.4-10.2) mg/dL unknown) (unknown) (no (unknown) (unknown) Carbon Dioxide (units (unknown) date) (22-32) mmol/L unknown) (unknown) (no (unknown) (unknown) Carbon Dioxide 27 (units (unknown) date) (22-32) mmol/L unknown) (unknown) (no (unknown) (unknown) Cardiac: Regular (units (unknown) date) rate and rhythm no unknown) murmurs no bruits (unknown) (no (unknown) (unknown) Chief complaint: (units (unknown) date) Skin/Abscess/Foreign unknown) Body (unknown) (no (unknown) (unknown) Chloride (98-107) (units (unknown) date) mmol/L unknown) (unknown) (no (unknown) (unknown) Chloride 97 L (units ( unknown) date) (98-107) mmol/L unknown) (unknown) (no (unknown) (unknown) Complete Blood Count (uni ts (unknown) date) AUTO DIFF Stat unknown) (unknown) (no (unknown) (unknown) Comprehensive (units ( unknown) date) Metabolic Panel Stat unknown) (unknown) (no (unknown) (unknown) Coronary artery (units (unknown) date) disease unknown) (unknown) (no (unknown) (unknown) Course (units (unkno wn) date) unknown) (unknown) (no (unknown) (unknown) Creatinine (units (unk nown) date) (0.66-1.25) mg/dL unknown) (unknown) (no (unknown) (unknown) Creatinine 3.18 H (units (unknown) date) (0.66-1.25) mg/dL unknown) (unknown) (no (unknown) (unknown) Crossmatch (units (unk nown) date) unknown) (unknown) (no (unknown) (unknown) Crossmatch See (units (unknown) date) Detail unknown) (unknown) (no (unknown) (unknown) : 1945 (units (unknown) date) Acct:[id number] unknown) (unknown) (no (unknown) (unknown) Departure (units (unkn own) date) unknown) (unknown) (no (unknown) (unknown) Diabetes (units (unkno wn) date) unknown) (unknown) (no (unknown) (unknown) Discharge Plan (units (unknown) date) unknown) (unknown) (no (unknown) (unknown) Discontinued (units (u nknown) date) Medications unknown) (unknown) (no (unknown) (unknown) Dyslipidemia (units (u nknown) date) unknown) (unknown) (no (unknown) (unknown) EKG-12 Lead Stat (units (unknown) date) unknown) (unknown) (no (unknown) (unknown) ER Physician: (units ( unknown) date) Ashley Glynn MD unknown) (unknown) (no (unknown) (unknown) Eos # (Auto) (0-450) (uni ts (unknown) date) /uL unknown) (unknown) (no (unknown) (unknown) Eos # (Auto) 200 (units (unknown) date) (0-450) /uL unknown) (unknown) (no (unknown) (unknown) Eos % (Auto) (2-4) % (uni ts (unknown) date) unknown) (unknown) (no (unknown) (unknown) Eos % (Auto) 2.8 (units (unknown) date) (2-4) % unknown) (unknown) (no (unknown) (unknown) Esterase (units (unkno wn) date) unknown) (unknown) (no (unknown) (unknown) Estimated GFR (>60) (unit s (unknown) date) mL/min unknown) (unknown) (no (unknown) (unknown) Estimated GFR 19 L (units (unknown) date) (>60) mL/min unknown) (unknown) (no (unknown) (unknown) Exam (units (unkno wn) date) unknown) (unknown) (no (unknown) (unknown) Extremities: Left (units (unknown) date) leg is described unknown) under the skin exam. Reasonable capillary (unknown) (no (unknown) (unknown) Full and symmetrical (uni ts (unknown) date) air movement unknown) (unknown) (no (unknown) (unknown) General (units (unkno wn) date) unknown) (unknown) (no (unknown) (unknown) General: Chronically (unit s (unknown) date) ill-appearing, pale, unknown) weak but in no acute distress. He is (unknown) (no (unknown) (unknown) GenericComposite[Plt (uni ts (unknown) date) Count (150-400) unknown) X10^3/uL ] (unknown) (no (unknown) (unknown) GenericComposite[Plt (uni ts (unknown) date) Count 206 (150-400) unknown) X10^3/uL ] (unknown) (no (unknown) (unknown) GenericComposite[RBC (uni ts (unknown) date) (4.5-5.9) X10^6/uL ] unknown) (unknown) (no (unknown) (unknown) GenericComposite[RBC (uni ts (unknown) date) 2.75 L (4.5-5.9) unknown) X10^6/uL ] (unknown) (no (unknown) (unknown) GenericComposite[WBC (uni ts (unknown) date) (4.5-11.0) X10^3/uL ] unknown) (unknown) (no (unknown) (unknown) GenericComposite[WBC (uni ts (unknown) date) 7.1 (4.5-11.0) unknown) X10^3/uL ] (unknown) (no (unknown) (unknown) Globulin (1.7-4.1) (units (unknown) date) g/dL unknown) (unknown) (no (unknown) (unknown) Globulin 3.5 (units (u nknown) date) (1.7-4.1) g/dL unknown) (unknown) (no (unknown) (unknown) Glucose (80-110) (units (unknown) date) mg/dL unknown) (unknown) (no (unknown) (unknown) Glucose 130 H (units ( unknown) date) (80-110) mg/dL unknown) (unknown) (no (unknown) (unknown) HEENT: Moist mucous (unit s (unknown) date) membranes, normal unknown) sclera with reactive pupils, pale mucous (unknown) (no (unknown) (unknown) HPI - General Adult (unit s (unknown) date) unknown) (unknown) (no (unknown) (unknown) HPI narrative: (units (unknown) date) unknown) (unknown) (no (unknown) (unknown) Hct (41-53) % (units ( unknown) date) unknown) (unknown) (no (unknown) (unknown) Hct 20.8 L* (41-53) (unit s (unknown) date) % unknown) (unknown) (no (unknown) (unknown) Hgb (13.5-17.5) g/dL (uni ts (unknown) date) unknown) (unknown) (no (unknown) (unknown) Hgb 6.7 L* (units (unk nown) date) (13.5-17.5) g/dL unknown) (unknown) (no (unknown) (unknown) History of Present (units (unknown) date) Illness unknown) (unknown) (no (unknown) (unknown) Hx of (units (unkno wn) date) cholecystectomy unknown) (unknown) (no (unknown) (unknown) Hypertension (units (u nknown) date) unknown) (unknown) (no (unknown) (unknown) IV NOW ONE (units (unk nown) date) unknown) (unknown) (no (unknown) (unknown) Initial Vital Signs (unit s (unknown) date) unknown) (unknown) (no (unknown) (unknown) Initial Vital Signs: (uni ts (unknown) date) unknown) (unknown) (no (unknown) (unknown) Lab Data (units (unkno wn) date) unknown) (unknown) (no (unknown) (unknown) Labs: (units (unkno wn) date) unknown) (unknown) (no (unknown) (unknown) Lactate (0.7-2.1) (units (unknown) date) mmol/L unknown) (unknown) (no (unknown) (unknown) Lactate 1.3 (units (un known) date) (0.7-2.1) mmol/L unknown) (unknown) (no (unknown) (unknown) Lactate (Lactic (units (unknown) date) Acid) Stat unknown) (unknown) (no (unknown) (unknown) Lipase (23-300) U/L (unit s (unknown) date) unknown) (unknown) (no (unknown) (unknown) Lipase 135 (23-300) (unit s (unknown) date) U/L unknown) (unknown) (no (unknown) (unknown) Lipase Stat (units (un known) date) unknown) (unknown) (no (unknown) (unknown) Lymph # (Auto) (units (unknown) date) (3968-0766) /uL unknown) (unknown) (no (unknown) (unknown) Lymph # (Auto) 800 L (uni ts (unknown) date) (0318-4570) /uL unknown) (unknown) (no (unknown) (unknown) Lymph % (Auto) (units (unknown) date) (25-40) % unknown) (unknown) (no (unknown) (unknown) Lymph % (Auto) 11.4 (unit s (unknown) date) L (25-40) % unknown) (unknown) (no (unknown) (unknown) MCH (26-34) PG (units (unknown) date) unknown) (unknown) (no (unknown) (unknown) MCH 24.6 L (26-34) (units (unknown) date) PG unknown) (unknown) (no (unknown) (unknown) MCHC (30-36) % (units (unknown) date) unknown) (unknown) (no (unknown) (unknown) MCHC 32.4 (30-36) % (unit s (unknown) date) unknown) (unknown) (no (unknown) (unknown) MCV (80-100) fL (units (unknown) date) unknown) (unknown) (no (unknown) (unknown) MCV 75.7 L (80-100) (unit s (unknown) date) fL unknown) (unknown) (no (unknown) (unknown) Medical Decision (units (unknown) date) Making unknown) (unknown) (no (unknown) (unknown) Medical History (units (unknown) date) (Updated 01/26/22 @ unknown) 20:14 by Ashley Glynn MD) (unknown) (no (unknown) (unknown) Metformin (units (unkn own) date) Hydrochloride 1,275 unknown) mg PO BID ##0 07/08/12 (unknown) (no (unknown) (unknown) Miscellaneous,Doctor (uni ts (unknown) date) , [Primary Care unknown) Provider] - (unknown) (no (unknown) (unknown) [place] # (Auto) (units ( unknown) date) (0-900) /uL unknown) (unknown) (no (unknown) (unknown) [place] # (Auto) 700 (units (unknown) date) (0-900) /uL unknown) (unknown) (no (unknown) (unknown) [place] % (Auto) (3-14) (uni ts (unknown) date) % unknown) (unknown) (no (unknown) (unknown) [place] % (Auto) 9.8 (units (unknown) date) (3-14) % unknown) (unknown) (no (unknown) (unknown) NSAIDS (units (unkno wn) date) (Non-Steroidal unknown) AdvReac Severe kidney Verified 11/14/19 20:28 (unknown) (no (unknown) (unknown) Neck: No JVD, supple (uni ts (unknown) date) unknown) (unknown) (no (unknown) (unknown) Neurologic: Globally (uni ts (unknown) date) weak but able to move unknown) all extremities (unknown) (no (unknown) (unknown) Neut # (Auto) (units ( unknown) date) (9859-4216) /uL unknown) (unknown) (no (unknown) (unknown) Neut # (Auto) 5400 (units (unknown) date) (9949-7359) /uL unknown) (unknown) (no (unknown) (unknown) Neut % (Auto) (units ( unknown) date) (50-75) % unknown) (unknown) (no (unknown) (unknown) Neut % (Auto) 75.0 (units (unknown) date) (50-75) % unknown) (unknown) (no (unknown) (unknown) No Action (units (unkn own) date) unknown) (unknown) (no (unknown) (unknown) ONE (units (unkno wn) date) unknown) (unknown) (no (unknown) (unknown) Ordered: (units (unkno wn) date) unknown) (unknown) (no (unknown) (unknown) Orders (units (unkno wn) date) unknown) (unknown) (no (unknown) (unknown) Oxygen Delivery (units (unknown) date) Method unknown) (unknown) (no (unknown) (unknown) Oxygen Delivery (units (unknown) date) Method unknown) (unknown) (no (unknown) (unknown) Oxygen Delivery (units (unknown) date) Method 01/26/22 19:44 unknown) (unknown) (no (unknown) (unknown) Oxygen Delivery (units (unknown) date) Method Room Air unknown) (unknown) (no (unknown) (unknown) Patient History (units (unknown) date) unknown) (unknown) (no (unknown) (unknown) Patient: (units (unkno wn) date) BaxterOsmel R MR#: unknown) M000 (unknown) (no (unknown) (unknown) Piperacillin (units (u nknown) date) Sod/Tazobactam (Sod unknown) 4.5 gm/ Sodium Chloride) 100 mls @ 200 mls/hr (unknown) (no (unknown) (unknown) Point of care (units ( unknown) date) testing: unknown) (unknown) (no (unknown) (unknown) Potassium (3.4-5.1) (unit s (unknown) date) mmol/L unknown) (unknown) (no (unknown) (unknown) Potassium 4.3 (units ( unknown) date) (3.4-5.1) mmol/L unknown) (unknown) (no (unknown) (unknown) Prescriptions: (units (unknown) date) unknown) (unknown) (no (unknown) (unknown) Procalcitonin (<0.5) (uni ts (unknown) date) ng/mL unknown) (unknown) (no (unknown) (unknown) Procalcitonin 0.50 (units (unknown) date) (<0.5) ng/mL unknown) (unknown) (no (unknown) (unknown) Procalcitonin Stat (units (unknown) date) unknown) (unknown) (no (unknown) (unknown) Psych: Will respond (unit s (unknown) date) to yes or no unknown) questions but otherwise altered. (unknown) (no (unknown) (unknown) Pulse Oximetry (units (unknown) date) unknown) (unknown) (no (unknown) (unknown) Pulse Oximetry 98 (units (unknown) date) unknown) (unknown) (no (unknown) (unknown) Pulse Oximetry 97 (units (unknown) date) 01/26/22 19:44 unknown) (unknown) (no (unknown) (unknown) Pulse Oximetry 97 98 (uni ts (unknown) date) unknown) (unknown) (no (unknown) (unknown) Pulse Oximetry 99 (units (unknown) date) unknown) (unknown) (no (unknown) (unknown) Pulse Rate 65 (units ( unknown) date) 01/26/22 19:44 unknown) (unknown) (no (unknown) (unknown) Pulse Rate 63 63 (units (unknown) date) unknown) (unknown) (no (unknown) (unknown) Pulse Rate 64 62 62 (unit s (unknown) date) unknown) (unknown) (no (unknown) (unknown) Pulse Rate 64 64 65 (unit s (unknown) date) unknown) (unknown) (no (unknown) (unknown) Pulse Rate 65 65 64 (unit s (unknown) date) unknown) (unknown) (no (unknown) (unknown) RBC Morphology (units (unknown) date) unknown) (unknown) (no (unknown) (unknown) RBC Morphology Not (units (unknown) date) Reportable unknown) (unknown) (no (unknown) (unknown) RDW (11.6-14.8) % (units (unknown) date) unknown) (unknown) (no (unknown) (unknown) RDW 24.5 H (units (unk nown) date) (11.6-14.8) % unknown) (unknown) (no (unknown) (unknown) ROS Unobtainable: (units (unknown) date) Unobtainable due to unknown) mental condition (unknown) (no (unknown) (unknown) RT Consult Eval and (unit s (unknown) date) Treat NOW unknown) (unknown) (no (unknown) (unknown) Referrals: (units (unk nown) date) unknown) (unknown) (no (unknown) (unknown) Related Data (units (u nknown) date) unknown) (unknown) (no (unknown) (unknown) Respiratory Rate 21 (unit s (unknown) date) 01/26/22 19:44 unknown) (unknown) (no (unknown) (unknown) Respiratory Rate 18 (unit s (unknown) date) 14 21 unknown) (unknown) (no (unknown) (unknown) Respiratory Rate 18 (unit s (unknown) date) 15 unknown) (unknown) (no (unknown) (unknown) Respiratory Rate 20 (unit s (unknown) date) 12 18 unknown) (unknown) (no (unknown) (unknown) Respiratory Rate 21 (unit s (unknown) date) 17 17 unknown) (unknown) (no (unknown) (unknown) Respiratory: Lungs (units (unknown) date) are clear to unknown) auscultation, no wheezing no rales no rhonchi. (unknown) (no (unknown) (unknown) Result diagrams: (units (unknown) date) unknown) (unknown) (no (unknown) (unknown) Review of Systems (units (unknown) date) unknown) (unknown) (no (unknown) (unknown) S/P CABG x 4 (units (u nknown) date) unknown) (unknown) (no (unknown) (unknown) SARS-CoV-2 (PCR) (units (unknown) date) (Negative) unknown) (unknown) (no (unknown) (unknown) SARS-CoV-2 (PCR) (units (unknown) date) Negative (Negative) unknown) (unknown) (no (unknown) (unknown) Signed By: (units (unk nown) date) unknown) (unknown) (no (unknown) (unknown) Skin: Pale, Warm and (uni ts (unknown) date) dry, multiple bruises unknown) some look like there from recent (unknown) (no (unknown) (unknown) Sleep apnea (units (un known) date) unknown) (unknown) (no (unknown) (unknown) Smoking Status: (units (unknown) date) Former smoker unknown) (unknown) (no (unknown) (unknown) Smoking Status: (units (unknown) date) Former smoker unknown) (unknown) (no (unknown) (unknown) Social History (units (unknown) date) (Updated 09/25/18 @ unknown) 11:17 by Telma Dickey DO) (unknown) (no (unknown) (unknown) Sodium (137-145) (units (unknown) date) mmol/L unknown) (unknown) (no (unknown) (unknown) Sodium 132 L (units (u nknown) date) (137-145) mmol/L unknown) (unknown) (no (unknown) (unknown) Sodium Chloride (units (unknown) date) (Normal Saline 0.9%) unknown) 1,000 mls @ 1,000 mls/hr IV BOLUS ONE (unknown) (no (unknown) (unknown) Stated complaint: (units (unknown) date) Dementia unknown) (unknown) (no (unknown) (unknown) Substance Use Type: (unit s (unknown) date) does not use unknown) (unknown) (no (unknown) (unknown) Surgical History (units (unknown) date) (Reviewed 11/15/19 @ unknown) 04:28 by MEKA Garcia) (unknown) (no (unknown) (unknown) Temperature 96.3 F L (uni ts (unknown) date) 96.8 F L unknown) (unknown) (no (unknown) (unknown) Temperature 97.7 F (units (unknown) date) 01/26/22 19:44 unknown) (unknown) (no (unknown) (unknown) Temperature 96.7 F L (uni ts (unknown) date) 96.5 F L unknown) (unknown) (no (unknown) (unknown) Temperature 97.7 F (units (unknown) date) 96.8 F L unknown) (unknown) (no (unknown) (unknown) Temperature 98.6 F (units (unknown) date) 96.8 F L unknown) (unknown) (no (unknown) (unknown) Time Seen by (units (u nknown) date) Provider: 01/26/22 unknown) 19:49 (unknown) (no (unknown) (unknown) Total Bilirubin (units (unknown) date) (0.2-1.3) mg/dL unknown) (unknown) (no (unknown) (unknown) Total Bilirubin 1.5 (unit s (unknown) date) H (0.2-1.3) mg/dL unknown) (unknown) (no (unknown) (unknown) Total Protein (units ( unknown) date) (6.3-8.2) g/dL unknown) (unknown) (no (unknown) (unknown) Total Protein 7.1 (units (unknown) date) (6.3-8.2) g/dL unknown) (unknown) (no (unknown) (unknown) Type and Screen Stat (uni ts (unknown) date) unknown) (unknown) (no (unknown) (unknown) U-100 Insulin) (units (unknown) date) unknown) (unknown) (no (unknown) (unknown) Urine Microscopic (units (unknown) date) Stat unknown) (unknown) (no (unknown) (unknown) Urine Specific (units (unknown) date) [place] 1.02 unknown) (unknown) (no (unknown) (unknown) VITAMIN D (Vitamin (units (unknown) date) D3) ##0 07/08/12 unknown) (unknown) (no (unknown) (unknown) Vancomycin HCl (units (unknown) date) (Vancomycin Per unknown) Pharmacy) [place] [facility] [place] ([place]) (no (unknown) (unknown) Vancomycin (units (unk nown) date) HCl/Dextrose unknown) (Vancomycin) 1,500 mg in 300 mls @ 200 mls/hr IV NOW (unknown) (no (unknown) (unknown) Vital Signs (units (un known) date) unknown) (unknown) (no (unknown) (unknown) Vital signs: (units (u nknown) date) unknown) (unknown) (no (unknown) (unknown) XR chest 1V Stat (units (unknown) date) unknown) (unknown) (no (unknown) (unknown) [Embedded Image Not (unit s (unknown) date) Available] unknown) (unknown) (no (unknown) (unknown) additional records (units (unknown) date) are present. He is unknown) weak, confused, cooperative he has an (unknown) (no (unknown) (unknown) alcohol intake (units (unknown) date) frequency: unknown) holidays/special occasions only (unknown) (no (unknown) (unknown) allopurinol 100 mg (units (unknown) date) tablet 100 mg PO BID unknown) 11/15/19 11/15/19 (unknown) (no (unknown) (unknown) and concerned that (units (unknown) date) ?times he is not unknown) completely aware?. No additional history is (unknown) (no (unknown) (unknown) and developing (units (unknown) date) cellulitis, multiple unknown) bruises all over. He is pale but not (unknown) (no (unknown) (unknown) aspirin 81 mg (units ( unknown) date) chewable tablet 81 mg unknown) PO QDAY ##0 07/08/12 11/15/19 (unknown) (no (unknown) (unknown) atorvastatin 20 mg (units (unknown) date) tablet 20 mg PO DAILY unknown) 11/15/19 11/15/19 (unknown) (no (unknown) (unknown) available. There is (unit s (unknown) date) a med list that was unknown) printed out from the end of December it (unknown) (no (unknown) (unknown) carbidopa 25 (units (u nknown) date) mg-levodopa 100 mg 1 unknown) tab PO BEDTIME RLS 11/15/19 11/15/19 (unknown) (no (unknown) (unknown) carvedilol 12.5 mg (units (unknown) date) tablet 12.5 mg PO BID unknown) 11/15/19 11/15/19 (unknown) (no (unknown) (unknown) complaining of (units (unknown) date) headache. He will unknown) open his eyes to command but not oriented to (unknown) (no (unknown) (unknown) cyclobenzaprine 10 (units (unknown) date) mg tablet 10 mg PO unknown) TID 11/15/19 11/15/19 (unknown) (no (unknown) (unknown) details: x 9 (uni ts (unknown) date) months unknown) (unknown) (no (unknown) (unknown) developing mild (units (unknown) date) erythema. Left knee unknown) with a very large bulla/hematoma on the (unknown) (no (unknown) (unknown) excoriation on the (units (unknown) date) medial aspect of his unknown) foot from the splint as well. (unknown) (no (unknown) (unknown) failure and (units (un known) date) Parkinson's his son unknown) called with concerns for his overall well-being (unknown) (no (unknown) (unknown) ferrous sulfate (units (unknown) date) Allergy Muscle Pain unknown) Verified 11/14/19 20:28 (unknown) (no (unknown) (unknown) from his knee with (units (unknown) date) minimal range of unknown) motion at the knee. He also has a dressing (unknown) (no (unknown) (unknown) fully assess. It (units (unknown) date) clearly is more than unknown) a couple of days old appears exacerbated (unknown) (no (unknown) (unknown) gabapentin Allergy (units (unknown) date) Confusion Verified unknown) 11/14/19 20:28 (unknown) (no (unknown) (unknown) hospitalization and (unit s (unknown) date) some from his very unknown) frail skin. Area of excoriation on the (unknown) (no (unknown) (unknown) household members: (units (unknown) date) significant other unknown) (unknown) (no (unknown) (unknown) hydrochlorothiazide (unit s (unknown) date) 25 mg tablet 50 mg PO unknown) QDAY ##0 07/08/12 (unknown) (no (unknown) (unknown) hyperlipidemia, (units (unknown) date) diabetes, cognitive unknown) decline, hyperlipidemia, congestive heart (unknown) (no (unknown) (unknown) if not caused from (units (unknown) date) the splint that had unknown) been in place. There is an area of (unknown) (no (unknown) (unknown) in place on the left (uni ts (unknown) date) forearm with unknown) underlying skin irritation shallow ulceration (unknown) (no (unknown) (unknown) injector (Ozempic) (units (unknown) date) unknown) (unknown) (no (unknown) (unknown) insulin glargine 100 (uni ts (unknown) date) unit/mL 100 unit SQ unknown) DAILY ##0 07/08/12 11/15/19 (unknown) (no (unknown) (unknown) into the top of his (unit s (unknown) date) foot and has a unknown) significant abrasion with large hematoma to (unknown) (no (unknown) (unknown) intramuscular oil (units (unknown) date) unknown) (unknown) (no (unknown) (unknown) left forearm with a (unit s (unknown) date) small area of unknown) ulceration without underlying abscess (unknown) (no (unknown) (unknown) lisinopril 20 mg (units (unknown) date) tablet 10 mg PO QDAY unknown) ##0 07/08/12 11/15/19 (unknown) (no (unknown) (unknown) looks like it could (unit s (unknown) date) have been associated unknown) [facility] (unknown) (no (unknown) (unknown) looks like it may be (uni ts (unknown) date) from [facility] who unknown) will follow-up on this to see if (unknown) (no (unknown) (unknown) marital status: (units (unknown) date) unknown) (unknown) (no (unknown) (unknown) medial aspect it (units (unknown) date) does not appear to be unknown) intra-articular but it is difficult to (unknown) (no (unknown) (unknown) membranes (units (unkn own) date) unknown) (unknown) (no (unknown) (unknown) mg/1.5 mL) (units (unk nown) date) subcutaneous pen unknown) (unknown) (no (unknown) (unknown) not tachypneic and (units (unknown) date) is able to speak in unknown) full sentences (unknown) (no (unknown) (unknown) omeprazole 40 mg (units (unknown) date) capsule,delayed 40 mg unknown) PO DAILY ##0 07/08/12 11/15/19 (unknown) (no (unknown) (unknown) ortho glass splint (units (unknown) date) on the medial aspect unknown) of his left lower leg that is abrading (unknown) (no (unknown) (unknown) oxycodone 10 mg (units (unknown) date) tablet,crush 10 mg PO unknown) BID 11/15/19 11/15/19 (unknown) (no (unknown) (unknown) paroxysmal atrial (units (unknown) date) fibrillation unknown) anticoagulated on rivaroxaban, hypertension, (unknown) (no (unknown) (unknown) person time place (units (unknown) date) it. He states he is unknown) not in any pain at this time. (unknown) (no (unknown) (unknown) refill both lower (units (unknown) date) extremities. unknown) (unknown) (no (unknown) (unknown) release (units (unkno wn) date) unknown) (unknown) (no (unknown) (unknown) resistant,extended (units (unknown) date) release 12 hr unknown) (unknown) (no (unknown) (unknown) rivaroxaban 20 mg (units (unknown) date) tablet (Xarelto) 20 unknown) mg PO DAILY 11/14/19 11/14/19 (unknown) (no (unknown) (unknown) semaglutide 0.25 mg (unit s (unknown) date) or 0.5 mg (2 0.25 mg unknown) SUBCUT QWEEK 11/15/19 11/15/19 (unknown) (no (unknown) (unknown) sildenafil 100 mg (units (unknown) date) tablet 100 mg PO unknown) DAILY PRN Sexual Activity 11/15/19 11/15/19 (unknown) (no (unknown) (unknown) subcutaneous (units (u nknown) date) solution (Lantus unknown) (unknown) (no (unknown) (unknown) tablet (units (unkno wn) date) unknown) (unknown) (no (unknown) (unknown) testosterone (units (u nknown) date) cypionate 200 mg/mL unknown) ##0 07/08/12 (unknown) (no (unknown) (unknown) the medial aspect of (uni ts (unknown) date) his left knee with unknown) bruising extending proximal and distal (unknown) (no (unknown) (unknown) transfuse [Packed (units (unknown) date) Cells] Stat unknown) (unknown) (no (unknown) (unknown) zolpidem [From (units (unknown) date) Ambien] Allergy unknown) Confusion Verified 11/14/19 20:28 Result panel 22 (unknown) (no date) (unknown) (unknown) A Negative (units (un known) unknown) (unknown) (no date) (unknown) (unknown) NEGATIVE (units (unkn own) unknown) (unknown) (no date) (unknown) (unknown) TRANSFUSED (units (un known) PRODUCT: Packed unknown) Cells COUNT: 2 Result panel 23 (unknown) (no date) (unknown) (unknown) A Negative (units (un known) unknown) (unknown) (no date) (unknown) (unknown) NEGATIVE (units (unkn own) unknown) (unknown) (no date) (unknown) (unknown) TRANSFUSED (units (un known) PRODUCT: Packed unknown) Cells COUNT: 2 Result panel 24 (unknown) (no (unknown) (unknown) Qty: 0 (units (unkno wn) date) unknown) (unknown) (no (unknown) (unknown) (no value) (units (unk nown) date) unknown) (unknown) (no (unknown) (unknown) Date of Service: (units (unknown) date) 01/26/22 unknown) (unknown) (no (unknown) (unknown) (no value) (units (unk nown) date) unknown) (unknown) (no (unknown) (unknown) 0.25 mg SUBCUT QWEEK (uni ts (unknown) date) unknown) (unknown) (no (unknown) (unknown) 01/26/22 19:40 (units (unknown) date) unknown) (unknown) (no (unknown) (unknown) 1 tab PO BEDTIME (units (unknown) date) unknown) (unknown) (no (unknown) (unknown) 1,275 mg PO BID Qty: (uni ts (unknown) date) 0 unknown) (unknown) (no (unknown) (unknown) 10 mg PO BID (units (u nknown) date) unknown) (unknown) (no (unknown) (unknown) 10 mg PO QDAY Qty: 0 (uni ts (unknown) date) unknown) (unknown) (no (unknown) (unknown) 10 mg PO TID (units (u nknown) date) unknown) (unknown) (no (unknown) (unknown) 100 mg PO BID (units ( unknown) date) unknown) (unknown) (no (unknown) (unknown) 100 mg PO DAILY PRN (unit s (unknown) date) (Reason: Sexual unknown) Activity) (unknown) (no (unknown) (unknown) 100 unit SQ DAILY (units (unknown) date) Qty: 0 unknown) (unknown) (no (unknown) (unknown) 12.5 mg PO BID (units (unknown) date) unknown) (unknown) (no (unknown) (unknown) 20 mg PO DAILY (units (unknown) date) unknown) (unknown) (no (unknown) (unknown) 40 mg PO DAILY Qty: (unit s (unknown) date) 0 unknown) (unknown) (no (unknown) (unknown) 50 mg PO QDAY Qty: 0 (uni ts (unknown) date) unknown) (unknown) (no (unknown) (unknown) 81 mg PO QDAY Qty: 0 (uni ts (unknown) date) unknown) (unknown) (no (unknown) (unknown) Admin: 01/26/22 (units (unknown) date) 20:35 Dose: 1,000 unknown) mls/hr (unknown) (no (unknown) (unknown) Admin: 01/26/22 (units (unknown) date) 20:35 Dose: 200 unknown) mls/hr (unknown) (no (unknown) (unknown) Admin: 01/26/22 (units (unknown) date) 20:36 Dose: 1,000 unknown) mls/hr (unknown) (no (unknown) (unknown) Admin: 01/26/22 (units (unknown) date) 21:32 Dose: 200 unknown) mls/hr (unknown) (no (unknown) (unknown) Allergies (units (unkn own) date) unknown) (unknown) (no (unknown) (unknown) Documented By: KH (units (unknown) date) unknown) (unknown) (no (unknown) (unknown) Documented By: OW (units (unknown) date) unknown) (unknown) (no (unknown) (unknown) Documented By: ZGG (units (unknown) date) unknown) (unknown) (no (unknown) (unknown) ED Orders (units (unkn own) date) unknown) (unknown) (no (unknown) (unknown) Emergency Report (units (unknown) date) unknown) (unknown) (no (unknown) (unknown) Home Medications (units (unknown) date) unknown) (unknown) (no (unknown) (unknown) Infusion: 01/26/22 (units (unknown) date) 21:00 Dose: 0 mls/hr unknown) (unknown) (no (unknown) (unknown) [facility] [address] (uni ts (unknown) date) [address] unknown) [place] [address] (unknown) (no (unknown) (unknown) Lab Results (units (un known) date) unknown) (unknown) (no (unknown) (unknown) Last Admin: 01/26/22 (uni ts (unknown) date) 22:33 Dose: Not Given unknown) (unknown) (no (unknown) (unknown) Last Infusion: (units (unknown) date) 01/26/22 21:00 Dose: unknown) 200 mls/hr (unknown) (no (unknown) (unknown) Last Infusion: (units (unknown) date) 01/26/22 22:33 Dose: unknown) 0 mls/hr (unknown) (no (unknown) (unknown) Last Infusion: (units (unknown) date) 01/26/22 22:34 Dose: unknown) 0 mls/hr (unknown) (no (unknown) (unknown) Stop: 01/26/22 20:08 (uni ts (unknown) date) unknown) (unknown) (no (unknown) (unknown) Stop: 01/26/22 20:51 (uni ts (unknown) date) unknown) (unknown) (no (unknown) (unknown) Stop: 01/26/22 21:09 (uni ts (unknown) date) unknown) (unknown) (no (unknown) (unknown) Stop: 01/26/22 22:14 (uni ts (unknown) date) unknown) (unknown) (no (unknown) (unknown) Urine Dip (units (unkn own) date) unknown) (unknown) (no (unknown) (unknown) Vital Signs - 8 hr (units (unknown) date) unknown) (unknown) (no (unknown) (unknown) (no value) (units (unk nown) date) unknown) (unknown) (no (unknown) (unknown) 01/26/22 01/26/22 (units (unknown) date) 01/26/22 Range/Units unknown) (unknown) (no (unknown) (unknown) 01/26/22 01/26/22 (units (unknown) date) Range/Units unknown) (unknown) (no (unknown) (unknown) 19:40 19:40 19:40 (units (unknown) date) unknown) (unknown) (no (unknown) (unknown) 20:21 20:47 (units (un known) date) unknown) (unknown) (no (unknown) (unknown) Lantus U-100 Insulin (uni ts (unknown) date) 100 UNIT/1 ML unknown) solution (unknown) (no (unknown) (unknown) Metformin (units (unkn own) date) Hydrochloride unknown) (GLUCOPHAGE) (unknown) (no (unknown) (unknown) Ozempic 0.25 mg or (units (unknown) date) 0.5 mg(2 mg/1.5 mL) unknown) Pen Injector (unknown) (no (unknown) (unknown) VITAMIN D (Vitamin (units (unknown) date) D3) unknown) (unknown) (no (unknown) (unknown) Xarelto 20 mg tablet (uni ts (unknown) date) unknown) (unknown) (no (unknown) (unknown) allopurinol 100 mg (units (unknown) date) Tablet unknown) (unknown) (no (unknown) (unknown) aspirin 81 MG (units ( unknown) date) tablet,chewable unknown) (unknown) (no (unknown) (unknown) atorvastatin 20 mg (units (unknown) date) Tablet unknown) (unknown) (no (unknown) (unknown) carbidopa-levodopa (units (unknown) date) 25-100 mg Tablet unknown) (unknown) (no (unknown) (unknown) carvedilol 12.5 mg (units (unknown) date) Tablet unknown) (unknown) (no (unknown) (unknown) cyclobenzaprine 10 (units (unknown) date) mg Tablet unknown) (unknown) (no (unknown) (unknown) hydrochlorothiazide (unit s (unknown) date) 25 MG tablet unknown) (unknown) (no (unknown) (unknown) lisinopril 20 MG (units (unknown) date) tablet unknown) (unknown) (no (unknown) (unknown) omeprazole 40 MG (units (unknown) date) capsule,delayed unknown) release(DR/EC) (unknown) (no (unknown) (unknown) oxycodone 10 mg (units (unknown) date) tablet,oral unknown) only,ext.rel.12 hr (unknown) (no (unknown) (unknown) sildenafil 100 mg (units (unknown) date) Tablet unknown) (unknown) (no (unknown) (unknown) testosterone (units (u nknown) date) cypionate unknown) [Depo-Testosterone] 200 MG/1 ML oil (unknown) (no (unknown) (unknown) 01/26/22 (units (unkno wn) date) unknown) (unknown) (no (unknown) (unknown) 1st. 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 (unknown) (no (unknown) (unknown) Medication (units (unk nown) date) Instructions Recorded unknown) Confirmed (unknown) (no (unknown) (unknown) (Depo-Testosterone) (unit s (unknown) date) unknown) (unknown) (no (unknown) (unknown) (GLUCOPHAGE) (units (u nknown) date) unknown) (unknown) (no (unknown) (unknown) 01/26/22 19:40 (units (unknown) date) unknown) (unknown) (no (unknown) (unknown) 01/26/22 19:45 (units (unknown) date) unknown) (unknown) (no (unknown) (unknown) 01/26/22 19:52 (units (unknown) date) unknown) (unknown) (no (unknown) (unknown) 01/26/22 20:07 (units (unknown) date) unknown) (unknown) (no (unknown) (unknown) 01/26/22 20:09 (units (unknown) date) unknown) (unknown) (no (unknown) (unknown) 01/26/22 20:15 (units (unknown) date) unknown) (unknown) (no (unknown) (unknown) 01/26/22 20:21 (units (unknown) date) unknown) (unknown) (no (unknown) (unknown) 01/26/22 20:47 (units (unknown) date) unknown) (unknown) (no (unknown) (unknown) 01/26/22 21:56 (units (unknown) date) unknown) (unknown) (no (unknown) (unknown) 19:44 01/26/22 (units (unknown) date) unknown) (unknown) (no (unknown) (unknown) 20:34 01/26/22 (units (unknown) date) unknown) (unknown) (no (unknown) (unknown) 20:41 (units (unkno wn) date) unknown) (unknown) (no (unknown) (unknown) 21:00 01/26/22 (units (unknown) date) unknown) (unknown) (no (unknown) (unknown) 21:25 (units (unkno wn) date) unknown) (unknown) (no (unknown) (unknown) 21:30 01/26/22 (units (unknown) date) unknown) (unknown) (no (unknown) (unknown) 21:45 01/26/22 (units (unknown) date) unknown) (unknown) (no (unknown) (unknown) 22:35 01/26/22 (units (unknown) date) unknown) (unknown) (no (unknown) (unknown) 22:50 (units (unkno wn) date) unknown) (unknown) (no (unknown) (unknown) 22:51 01/26/22 (units (unknown) date) unknown) (unknown) (no (unknown) (unknown) 23:04 (units (unkno wn) date) unknown) (unknown) (no (unknown) (unknown) [id number] (units (unkno wn) date) unknown) (unknown) (no (unknown) (unknown) 76-year-old (units (un known) date) gentleman with a unknown) history of coronary artery disease post CABG x4, (unknown) (no (unknown) (unknown) ALT (<50) IU/L (units (unknown) date) unknown) (unknown) (no (unknown) (unknown) ALT 27 (<50) IU/L (units (unknown) date) unknown) (unknown) (no (unknown) (unknown) AST (17-59) IU/L (units (unknown) date) unknown) (unknown) (no (unknown) (unknown) AST 28 (17-59) IU/L (unit s (unknown) date) unknown) (unknown) (no (unknown) (unknown) Abdomen: Soft, mild (unit s (unknown) date) distention but unknown) nontender, good bowel tones, no flank pain (unknown) (no (unknown) (unknown) Age/Sex: 76 / M (units (unknown) date) unknown) (unknown) (no (unknown) (unknown) Albumin (3.5-5.0) (units (unknown) date) g/dL unknown) (unknown) (no (unknown) (unknown) Albumin 3.6 (units (un known) date) (3.5-5.0) g/dL unknown) (unknown) (no (unknown) (unknown) Albumin/Globulin (units (unknown) date) Ratio (1.0-2.8) unknown) (unknown) (no (unknown) (unknown) Albumin/Globulin (units (unknown) date) Ratio 1.0 (1.0-2.8) unknown) (unknown) (no (unknown) (unknown) Alkaline Phosphatase (uni ts (unknown) date) (38-126) U/L unknown) (unknown) (no (unknown) (unknown) Alkaline Phosphatase (uni ts (unknown) date) 170 H (38-126) U/L unknown) (unknown) (no (unknown) (unknown) Allergy/AdvReac Type (uni ts (unknown) date) Severity Reaction unknown) Status Date / Time (unknown) (no (unknown) (unknown) Anisocytosis (units (u nknown) date) unknown) (unknown) (no (unknown) (unknown) Anisocytosis 3+ H (units (unknown) date) unknown) (unknown) (no (unknown) (unknown) Anti-Inflamma (units ( unknown) date) disease unknown) (unknown) (no (unknown) (unknown) Antibody Screen (units (unknown) date) unknown) (unknown) (no (unknown) (unknown) Antibody Screen (units (unknown) date) Negative unknown) (unknown) (no (unknown) (unknown) Atrial fibrillation (unit s (unknown) date) unknown) (unknown) (no (unknown) (unknown) BUN (9-20) mg/dL (units (unknown) date) unknown) (unknown) (no (unknown) (unknown) BUN 61 H (9-20) (units (unknown) date) mg/dL unknown) (unknown) (no (unknown) (unknown) BUN/Creatinine Ratio (uni ts (unknown) date) (6-22) unknown) (unknown) (no (unknown) (unknown) BUN/Creatinine Ratio (uni ts (unknown) date) 19.2 (6-22) unknown) (unknown) (no (unknown) (unknown) Baso # (Auto) (units ( unknown) date) (0-100) /uL unknown) (unknown) (no (unknown) (unknown) Baso # (Auto) 100 (units (unknown) date) (0-100) /uL unknown) (unknown) (no (unknown) (unknown) Baso % (Auto) (0-2) (unit s (unknown) date) % unknown) (unknown) (no (unknown) (unknown) Baso % (Auto) 1.0 (units (unknown) date) (0-2) % unknown) (unknown) (no (unknown) (unknown) Bedside Urine (units ( unknown) date) Bilirubin - Negative unknown) (unknown) (no (unknown) (unknown) Bedside Urine (units ( unknown) date) Glucose 500 mg/dl unknown) (unknown) (no (unknown) (unknown) Bedside Urine Ketone (uni ts (unknown) date) - Negative unknown) (unknown) (no (unknown) (unknown) Bedside Urine (units ( unknown) date) Leukocytes +/- 15 unknown) (unknown) (no (unknown) (unknown) Bedside Urine (units ( unknown) date) Nitrite - Negative unknown) (unknown) (no (unknown) (unknown) Bedside Urine Occult (uni ts (unknown) date) Blood +/- unknown) (unknown) (no (unknown) (unknown) Bedside Urine (units ( unknown) date) Protein - Negative unknown) (unknown) (no (unknown) (unknown) Bedside Urine (units ( unknown) date) Urobilinogen - unknown) Negative (unknown) (no (unknown) (unknown) Bedside Urine pH 5.5 (uni ts (unknown) date) unknown) (unknown) (no (unknown) (unknown) Blood Culture Stat (units (unknown) date) unknown) (unknown) (no (unknown) (unknown) Blood Pressure 78/54 (uni ts (unknown) date) L 01/26/22 19:44 unknown) (unknown) (no (unknown) (unknown) Blood Pressure 78/54 (uni ts (unknown) date) L 102/52 L unknown) (unknown) (no (unknown) (unknown) Blood Pressure 94/46 (uni ts (unknown) date) L 95/55 L 98/52 L unknown) (unknown) (no (unknown) (unknown) Blood Pressure 98/52 (uni ts (unknown) date) L 95/54 L 95/50 L unknown) (unknown) (no (unknown) (unknown) Blood Pressure 98/52 (uni ts (unknown) date) L 97/52 L unknown) (unknown) (no (unknown) (unknown) Blood Type (units (unk nown) date) unknown) (unknown) (no (unknown) (unknown) Blood Type A (units (u nknown) date) Negative unknown) (unknown) (no (unknown) (unknown) COVID19 -Nasal (units (unknown) date) RAPID/Pre-Proc Stat unknown) (unknown) (no (unknown) (unknown) CT LE LT wo con Stat (uni ts (unknown) date) unknown) (unknown) (no (unknown) (unknown) CT head/brain wo con (uni ts (unknown) date) Stat unknown) (unknown) (no (unknown) (unknown) Calcium (8.4-10.2) (units (unknown) date) mg/dL unknown) (unknown) (no (unknown) (unknown) Calcium 8.4 (units (un known) date) (8.4-10.2) mg/dL unknown) (unknown) (no (unknown) (unknown) Carbon Dioxide (units (unknown) date) (22-32) mmol/L unknown) (unknown) (no (unknown) (unknown) Carbon Dioxide 27 (units (unknown) date) (22-32) mmol/L unknown) (unknown) (no (unknown) (unknown) Cardiac: Regular (units (unknown) date) rate and rhythm no unknown) murmurs no bruits (unknown) (no (unknown) (unknown) Chief complaint: (units (unknown) date) Skin/Abscess/Foreign unknown) Body (unknown) (no (unknown) (unknown) Chloride (98-107) (units (unknown) date) mmol/L unknown) (unknown) (no (unknown) (unknown) Chloride 97 L (units ( unknown) date) (98-107) mmol/L unknown) (unknown) (no (unknown) (unknown) Complete Blood Count (uni ts (unknown) date) AUTO DIFF Stat unknown) (unknown) (no (unknown) (unknown) Comprehensive (units ( unknown) date) Metabolic Panel Stat unknown) (unknown) (no (unknown) (unknown) Coronary artery (units (unknown) date) disease unknown) (unknown) (no (unknown) (unknown) Course (units (unkno wn) date) unknown) (unknown) (no (unknown) (unknown) Creatinine (units (unk nown) date) (0.66-1.25) mg/dL unknown) (unknown) (no (unknown) (unknown) Creatinine 3.18 H (units (unknown) date) (0.66-1.25) mg/dL unknown) (unknown) (no (unknown) (unknown) Crossmatch (units (unk nown) date) unknown) (unknown) (no (unknown) (unknown) Crossmatch See (units (unknown) date) Detail unknown) (unknown) (no (unknown) (unknown) : 1945 (units (unknown) date) Acct:[id number] unknown) (unknown) (no (unknown) (unknown) Departure (units (unkn own) date) unknown) (unknown) (no (unknown) (unknown) Diabetes (units (unkno wn) date) unknown) (unknown) (no (unknown) (unknown) Discharge Plan (units (unknown) date) unknown) (unknown) (no (unknown) (unknown) Discontinued (units (u nknown) date) Medications unknown) (unknown) (no (unknown) (unknown) Dyslipidemia (units (u nknown) date) unknown) (unknown) (no (unknown) (unknown) ECG Data (units (unkno wn) date) unknown) (unknown) (no (unknown) (unknown) EKG-12 Lead Stat (units (unknown) date) unknown) (unknown) (no (unknown) (unknown) ER Physician: (units ( unknown) date) Ashley Glynn MD unknown) (unknown) (no (unknown) (unknown) Eos # (Auto) (0-450) (uni ts (unknown) date) /uL unknown) (unknown) (no (unknown) (unknown) Eos # (Auto) 200 (units (unknown) date) (0-450) /uL unknown) (unknown) (no (unknown) (unknown) Eos % (Auto) (2-4) % (uni ts (unknown) date) unknown) (unknown) (no (unknown) (unknown) Eos % (Auto) 2.8 (units (unknown) date) (2-4) % unknown) (unknown) (no (unknown) (unknown) Esterase (units (unkno wn) date) unknown) (unknown) (no (unknown) (unknown) Estimated GFR (>60) (unit s (unknown) date) mL/min unknown) (unknown) (no (unknown) (unknown) Estimated GFR 19 L (units (unknown) date) (>60) mL/min unknown) (unknown) (no (unknown) (unknown) Exam (units (unkno wn) date) unknown) (unknown) (no (unknown) (unknown) Extremities: Left (units (unknown) date) leg is described unknown) under the skin exam. Reasonable capillary (unknown) (no (unknown) (unknown) Full and symmetrical (uni ts (unknown) date) air movement unknown) (unknown) (no (unknown) (unknown) General (units (unkno wn) date) unknown) (unknown) (no (unknown) (unknown) General: Chronically (unit s (unknown) date) ill-appearing, pale, unknown) weak but in no acute distress. He is (unknown) (no (unknown) (unknown) GenericComposite[Plt (uni ts (unknown) date) Count (150-400) unknown) X10^3/uL ] (unknown) (no (unknown) (unknown) GenericComposite[Plt (uni ts (unknown) date) Count 206 (150-400) unknown) X10^3/uL ] (unknown) (no (unknown) (unknown) GenericComposite[RBC (uni ts (unknown) date) (4.5-5.9) X10^6/uL ] unknown) (unknown) (no (unknown) (unknown) GenericComposite[RBC (uni ts (unknown) date) 2.75 L (4.5-5.9) unknown) X10^6/uL ] (unknown) (no (unknown) (unknown) GenericComposite[WBC (uni ts (unknown) date) (4.5-11.0) X10^3/uL ] unknown) (unknown) (no (unknown) (unknown) GenericComposite[WBC (uni ts (unknown) date) 7.1 (4.5-11.0) unknown) X10^3/uL ] (unknown) (no (unknown) (unknown) Globulin (1.7-4.1) (units (unknown) date) g/dL unknown) (unknown) (no (unknown) (unknown) Globulin 3.5 (units (u nknown) date) (1.7-4.1) g/dL unknown) (unknown) (no (unknown) (unknown) Glucose (80-110) (units (unknown) date) mg/dL unknown) (unknown) (no (unknown) (unknown) Glucose 130 H (units ( unknown) date) (80-110) mg/dL unknown) (unknown) (no (unknown) (unknown) HEENT: Moist mucous (unit s (unknown) date) membranes, normal unknown) sclera with reactive pupils, pale mucous (unknown) (no (unknown) (unknown) HPI - General Adult (unit s (unknown) date) unknown) (unknown) (no (unknown) (unknown) HPI narrative: (units (unknown) date) unknown) (unknown) (no (unknown) (unknown) Have spoken with his (uni ts (unknown) date) son and medical unknown) records are now available for review. (unknown) (no (unknown) (unknown) Hct (41-53) % (units ( unknown) date) unknown) (unknown) (no (unknown) (unknown) Hct 20.8 L* (41-53) (unit s (unknown) date) % unknown) (unknown) (no (unknown) (unknown) Hgb (13.5-17.5) (units (unknown) date) g/dL unknown) (unknown) (no (unknown) (unknown) Hgb 6.7 L* (units (unk nown) date) (13.5-17.5) g/dL unknown) (unknown) (no (unknown) (unknown) History of Present (units (unknown) date) Illness unknown) (unknown) (no (unknown) (unknown) Hx of (units (unkno wn) date) cholecystectomy unknown) (unknown) (no (unknown) (unknown) Hypertension (units (u nknown) date) unknown) (unknown) (no (unknown) (unknown) IV NOW ONE (units (unk nown) date) unknown) (unknown) (no (unknown) (unknown) Initial Vital Signs (unit s (unknown) date) unknown) (unknown) (no (unknown) (unknown) Initial Vital Signs: (uni ts (unknown) date) unknown) (unknown) (no (unknown) (unknown) Interpretation: (units (unknown) date) unknown) (unknown) (no (unknown) (unknown) Lab Data (units (unkno wn) date) unknown) (unknown) (no (unknown) (unknown) Labs: (units (unkno wn) date) unknown) (unknown) (no (unknown) (unknown) Lactate (0.7-2.1) (units (unknown) date) mmol/L unknown) (unknown) (no (unknown) (unknown) Lactate 1.3 (units (un known) date) (0.7-2.1) mmol/L unknown) (unknown) (no (unknown) (unknown) Lactate (Lactic (units (unknown) date) Acid) Stat unknown) (unknown) (no (unknown) (unknown) Lipase (23-300) U/L (unit s (unknown) date) unknown) (unknown) (no (unknown) (unknown) Lipase 135 (23-300) (unit s (unknown) date) U/L unknown) (unknown) (no (unknown) (unknown) Lipase Stat (units (un known) date) unknown) (unknown) (no (unknown) (unknown) Lymph # (Auto) (units (unknown) date) (0295-6192) /uL unknown) (unknown) (no (unknown) (unknown) Lymph # (Auto) 800 L (uni ts (unknown) date) (4734-3441) /uL unknown) (unknown) (no (unknown) (unknown) Lymph % (Auto) (units (unknown) date) (25-40) % unknown) (unknown) (no (unknown) (unknown) Lymph % (Auto) 11.4 (unit s (unknown) date) L (25-40) % unknown) (unknown) (no (unknown) (unknown) MCH (26-34) PG (units (unknown) date) unknown) (unknown) (no (unknown) (unknown) MCH 24.6 L (26-34) (units (unknown) date) PG unknown) (unknown) (no (unknown) (unknown) MCHC (30-36) % (units (unknown) date) unknown) (unknown) (no (unknown) (unknown) MCHC 32.4 (30-36) % (unit s (unknown) date) unknown) (unknown) (no (unknown) (unknown) MCV (80-100) fL (units (unknown) date) unknown) (unknown) (no (unknown) (unknown) MCV 75.7 L (80-100) (unit s (unknown) date) fL unknown) (unknown) (no (unknown) (unknown) MDM Narrative (units ( unknown) date) unknown) (unknown) (no (unknown) (unknown) Medical Decision (units (unknown) date) Making unknown) (unknown) (no (unknown) (unknown) Medical History (units (unknown) date) (Updated 01/26/22 @ unknown) 20:14 by Ashley Glynn MD) (unknown) (no (unknown) (unknown) Medical decision (units (unknown) date) making narrative: unknown) (unknown) (no (unknown) (unknown) Metformin (units (unkn own) date) Hydrochloride 1,275 unknown) mg PO BID ##0 07/08/12 (unknown) (no (unknown) (unknown) Miscellaneous,Doctor (uni ts (unknown) date) MD [Primary Care unknown) Provider] - (unknown) (no (unknown) (unknown) Lajas # (Auto) (units ( unknown) date) (0-900) /uL unknown) (unknown) (no (unknown) (unknown) Lajas # (Auto) 700 (units (unknown) date) (0-900) /uL unknown) (unknown) (no (unknown) (unknown) Lajas % (Auto) (3-14) (uni ts (unknown) date) % unknown) (unknown) (no (unknown) (unknown) [place] % (Auto) 9.8 (units (unknown) date) (3-14) % unknown) (unknown) (no (unknown) (unknown) NSAIDS (units (unkno wn) date) (Non-Steroidal unknown) AdvReac Severe kidney Verified 11/14/19 20:28 (unknown) (no (unknown) (unknown) Neck: No JVD, supple (uni ts (unknown) date) unknown) (unknown) (no (unknown) (unknown) Neurologic: Globally (uni ts (unknown) date) weak but able to move unknown) all extremities (unknown) (no (unknown) (unknown) Neut # (Auto) (units ( unknown) date) (0080-7879) /uL unknown) (unknown) (no (unknown) (unknown) Neut # (Auto) 5400 (units (unknown) date) (8191-9076) /uL unknown) (unknown) (no (unknown) (unknown) Neut % (Auto) (units ( unknown) date) (50-75) % unknown) (unknown) (no (unknown) (unknown) Neut % (Auto) 75.0 (units (unknown) date) (50-75) % unknown) (unknown) (no (unknown) (unknown) No Action (units (unkn own) date) unknown) (unknown) (no (unknown) (unknown) ONE (units (unkno wn) date) unknown) (unknown) (no (unknown) (unknown) Ordered: (units (unkno wn) date) unknown) (unknown) (no (unknown) (unknown) Orders (units (unkno wn) date) unknown) (unknown) (no (unknown) (unknown) Oxygen Delivery (units (unknown) date) Method unknown) (unknown) (no (unknown) (unknown) Oxygen Delivery (units (unknown) date) Method unknown) (unknown) (no (unknown) (unknown) Oxygen Delivery (units (unknown) date) Method 01/26/22 19:44 unknown) (unknown) (no (unknown) (unknown) Oxygen Delivery (units (unknown) date) Method Room Air unknown) (unknown) (no (unknown) (unknown) Patient History (units (unknown) date) unknown) (unknown) (no (unknown) (unknown) Patient was admitted (unit s (unknown) date) to [facility] for unknown) acute congestive heart failure on January (unknown) (no (unknown) (unknown) Patient: (units (unkno wn) date) Osmel Baxter MR#: unknown) [id number] (unknown) (no (unknown) (unknown) Piperacillin (units (u nknown) date) Sod/Tazobactam (Sod unknown) 4.5 gm/ Sodium Chloride) 100 mls @ 200 mls/hr (unknown) (no (unknown) (unknown) Point of care (units ( unknown) date) testing: unknown) (unknown) (no (unknown) (unknown) Potassium (3.4-5.1) (unit s (unknown) date) mmol/L unknown) (unknown) (no (unknown) (unknown) Potassium 4.3 (units ( unknown) date) (3.4-5.1) mmol/L unknown) (unknown) (no (unknown) (unknown) Prescriptions: (units (unknown) date) unknown) (unknown) (no (unknown) (unknown) Procalcitonin (<0.5) (uni ts (unknown) date) ng/mL unknown) (unknown) (no (unknown) (unknown) Procalcitonin 0.50 (units (unknown) date) (<0.5) ng/mL unknown) (unknown) (no (unknown) (unknown) Procalcitonin Stat (units (unknown) date) unknown) (unknown) (no (unknown) (unknown) Psych: Will respond (unit s (unknown) date) to yes or no unknown) questions but otherwise altered. (unknown) (no (unknown) (unknown) Pulse Oximetry (units (unknown) date) unknown) (unknown) (no (unknown) (unknown) Pulse Oximetry 98 (units (unknown) date) unknown) (unknown) (no (unknown) (unknown) Pulse Oximetry 97 (units (unknown) date) 01/26/22 19:44 unknown) (unknown) (no (unknown) (unknown) Pulse Oximetry 97 98 (uni ts (unknown) date) unknown) (unknown) (no (unknown) (unknown) Pulse Oximetry 99 (units (unknown) date) unknown) (unknown) (no (unknown) (unknown) Pulse Rate 65 (units ( unknown) date) 01/26/22 19:44 unknown) (unknown) (no (unknown) (unknown) Pulse Rate 63 63 (units (unknown) date) unknown) (unknown) (no (unknown) (unknown) Pulse Rate 64 62 62 (unit s (unknown) date) unknown) (unknown) (no (unknown) (unknown) Pulse Rate 64 64 65 (unit s (unknown) date) unknown) (unknown) (no (unknown) (unknown) Pulse Rate 65 65 64 (unit s (unknown) date) unknown) (unknown) (no (unknown) (unknown) RBC Morphology (units (unknown) date) unknown) (unknown) (no (unknown) (unknown) RBC Morphology Not (units (unknown) date) Reportable unknown) (unknown) (no (unknown) (unknown) RDW (11.6-14.8) % (units (unknown) date) unknown) (unknown) (no (unknown) (unknown) RDW 24.5 H (units (unk nown) date) (11.6-14.8) % unknown) (unknown) (no (unknown) (unknown) ROS Unobtainable: (units (unknown) date) Unobtainable due to unknown) mental condition (unknown) (no (unknown) (unknown) RT Consult Eval and (unit s (unknown) date) Treat NOW unknown) (unknown) (no (unknown) (unknown) Referrals: (units (unk nown) date) unknown) (unknown) (no (unknown) (unknown) Related Data (units (u nknown) date) unknown) (unknown) (no (unknown) (unknown) Respiratory Rate 21 (unit s (unknown) date) 01/26/22 19:44 unknown) (unknown) (no (unknown) (unknown) Respiratory Rate 18 (unit s (unknown) date) 14 21 unknown) (unknown) (no (unknown) (unknown) Respiratory Rate 18 (unit s (unknown) date) 15 unknown) (unknown) (no (unknown) (unknown) Respiratory Rate 20 (unit s (unknown) date) 12 18 unknown) (unknown) (no (unknown) (unknown) Respiratory Rate 21 (unit s (unknown) date) 17 17 unknown) (unknown) (no (unknown) (unknown) Respiratory: Lungs (units (unknown) date) are clear to unknown) auscultation, no wheezing no rales no rhonchi. (unknown) (no (unknown) (unknown) Result diagrams: (units (unknown) date) unknown) (unknown) (no (unknown) (unknown) Review of Systems (units (unknown) date) unknown) (unknown) (no (unknown) (unknown) S/P CABG x 4 (units (u nknown) date) unknown) (unknown) (no (unknown) (unknown) SARS-CoV-2 (PCR) (units (unknown) date) (Negative) unknown) (unknown) (no (unknown) (unknown) SARS-CoV-2 (PCR) (units (unknown) date) Negative (Negative) unknown) (unknown) (no (unknown) (unknown) Signed By: (units (unk nown) date) unknown) (unknown) (no (unknown) (unknown) Sinus rhythm, left (units (unknown) date) bundle-branch block, unknown) no acute ischemic changes, rate of 67 (unknown) (no (unknown) (unknown) Skin: Pale, Warm and (uni ts (unknown) date) dry, multiple bruises unknown) some look like there from recent (unknown) (no (unknown) (unknown) Sleep apnea (units (un known) date) unknown) (unknown) (no (unknown) (unknown) Smoking Status: (units (unknown) date) Former smoker unknown) (unknown) (no (unknown) (unknown) Smoking Status: (units (unknown) date) Former smoker unknown) (unknown) (no (unknown) (unknown) Social History (units (unknown) date) (Updated 09/25/18 @ unknown) 11:17 by Telma Dickey DO) (unknown) (no (unknown) (unknown) Sodium (137-145) (units (unknown) date) mmol/L unknown) (unknown) (no (unknown) (unknown) Sodium 132 L (units (u nknown) date) (137-145) mmol/L unknown) (unknown) (no (unknown) (unknown) Sodium Chloride (units (unknown) date) (Normal Saline 0.9%) unknown) 1,000 mls @ 1,000 mls/hr IV BOLUS ONE (unknown) (no (unknown) (unknown) Stated complaint: (units (unknown) date) Dementia unknown) (unknown) (no (unknown) (unknown) Substance Use Type: (unit s (unknown) date) does not use unknown) (unknown) (no (unknown) (unknown) Surgical History (units (unknown) date) (Reviewed 11/15/19 @ unknown) 04:28 by MEKA Garcia) (unknown) (no (unknown) (unknown) Temperature 96.3 F L (uni ts (unknown) date) 96.8 F L unknown) (unknown) (no (unknown) (unknown) Temperature 97.7 F (units (unknown) date) 01/26/22 19:44 unknown) (unknown) (no (unknown) (unknown) Temperature 96.7 F L (uni ts (unknown) date) 96.5 F L unknown) (unknown) (no (unknown) (unknown) Temperature 97.7 F (units (unknown) date) 96.8 F L unknown) (unknown) (no (unknown) (unknown) Temperature 98.6 F (units (unknown) date) 96.8 F L unknown) (unknown) (no (unknown) (unknown) Time Seen by (units (u nknown) date) Provider: 01/26/22 unknown) 19:49 (unknown) (no (unknown) (unknown) Total Bilirubin (units (unknown) date) (0.2-1.3) mg/dL unknown) (unknown) (no (unknown) (unknown) Total Bilirubin 1.5 (unit s (unknown) date) H (0.2-1.3) mg/dL unknown) (unknown) (no (unknown) (unknown) Total Protein (units ( unknown) date) (6.3-8.2) g/dL unknown) (unknown) (no (unknown) (unknown) Total Protein 7.1 (units (unknown) date) (6.3-8.2) g/dL unknown) (unknown) (no (unknown) (unknown) Type and Screen Stat (uni ts (unknown) date) unknown) (unknown) (no (unknown) (unknown) U-100 Insulin) (units (unknown) date) unknown) (unknown) (no (unknown) (unknown) Urine Microscopic (units (unknown) date) Stat unknown) (unknown) (no (unknown) (unknown) Urine Specific (units (unknown) date) [place] 1.02 unknown) (unknown) (no (unknown) (unknown) VITAMIN D (Vitamin (units (unknown) date) D3) ##0 07/08/12 unknown) (unknown) (no (unknown) (unknown) Vancomycin HCl (units (unknown) date) (Vancomycin Per unknown) Pharmacy) 1 request MISC NOW ONE (unknown) (no (unknown) (unknown) Vancomycin (units (unk nown) date) HCl/Dextrose unknown) (Vancomycin) 1,500 mg in 300 mls @ 200 mls/hr IV NOW (unknown) (no (unknown) (unknown) Vital Signs (units (un known) date) unknown) (unknown) (no (unknown) (unknown) Vital signs: (units (u nknown) date) unknown) (unknown) (no (unknown) (unknown) XR chest 1V Stat (units (unknown) date) unknown) (unknown) (no (unknown) (unknown) [Embedded Image Not (unit s (unknown) date) Available] unknown) (unknown) (no (unknown) (unknown) additional records (units (unknown) date) are present. He is unknown) weak, confused, cooperative he has an (unknown) (no (unknown) (unknown) alcohol intake (units (unknown) date) frequency: unknown) holidays/special occasions only (unknown) (no (unknown) (unknown) allopurinol 100 mg (units (unknown) date) tablet 100 mg PO BID unknown) 11/15/19 11/15/19 (unknown) (no (unknown) (unknown) and concerned that (units (unknown) date) ?times he is not unknown) completely aware?. No additional history is (unknown) (no (unknown) (unknown) and developing (units (unknown) date) cellulitis, multiple unknown) bruises all over. He is pale but not (unknown) (no (unknown) (unknown) aspirin 81 mg (units ( unknown) date) chewable tablet 81 mg unknown) PO QDAY ##0 07/08/12 11/15/19 (unknown) (no (unknown) (unknown) atorvastatin 20 mg (units (unknown) date) tablet 20 mg PO DAILY unknown) 11/15/19 11/15/19 (unknown) (no (unknown) (unknown) available. There is (unit s (unknown) date) a med list that was unknown) printed out from the end of December it (unknown) (no (unknown) (unknown) carbidopa 25 (units (u nknown) date) mg-levodopa 100 mg 1 unknown) tab PO BEDTIME RLS 11/15/19 11/15/19 (unknown) (no (unknown) (unknown) carvedilol 12.5 mg (units (unknown) date) tablet 12.5 mg PO BID unknown) 11/15/19 11/15/19 (unknown) (no (unknown) (unknown) complaining of (units (unknown) date) headache. He will unknown) open his eyes to command but not oriented to (unknown) (no (unknown) (unknown) cyclobenzaprine 10 (units (unknown) date) mg tablet 10 mg PO unknown) TID 11/15/19 11/15/19 (unknown) (no (unknown) (unknown) details: x 9 (uni ts (unknown) date) months unknown) (unknown) (no (unknown) (unknown) developing mild (units (unknown) date) erythema. Left knee unknown) with a very large bulla/hematoma on the (unknown) (no (unknown) (unknown) ejection fraction at (uni ts (unknown) date) 15% with volume unknown) overload and tachycardia. (unknown) (no (unknown) (unknown) excoriation on the (units (unknown) date) medial aspect of his unknown) foot from the splint as well. (unknown) (no (unknown) (unknown) failure and (units (un known) date) Parkinson's his son unknown) called with concerns for his overall well-being (unknown) (no (unknown) (unknown) ferrous sulfate (units (unknown) date) Allergy Muscle Pain unknown) Verified 11/14/19 20:28 (unknown) (no (unknown) (unknown) from his knee with (units (unknown) date) minimal range of unknown) motion at the knee. He also has a dressing (unknown) (no (unknown) (unknown) fully assess. It (units (unknown) date) clearly is more than unknown) a couple of days old appears exacerbated (unknown) (no (unknown) (unknown) gabapentin Allergy (units (unknown) date) Confusion Verified unknown) 11/14/19 20:28 (unknown) (no (unknown) (unknown) hospitalization and (unit s (unknown) date) some from his very unknown) frail skin. Area of excoriation on the (unknown) (no (unknown) (unknown) household members: (units (unknown) date) significant other unknown) (unknown) (no (unknown) (unknown) hydrochlorothiazide (unit s (unknown) date) 25 mg tablet 50 mg PO unknown) QDAY ##0 07/08/12 (unknown) (no (unknown) (unknown) hyperlipidemia, (units (unknown) date) diabetes, cognitive unknown) decline, hyperlipidemia, congestive heart (unknown) (no (unknown) (unknown) if not caused from (units (unknown) date) the splint that had unknown) been in place. There is an area of (unknown) (no (unknown) (unknown) in place on the left (uni ts (unknown) date) forearm with unknown) underlying skin irritation shallow ulceration (unknown) (no (unknown) (unknown) injector (Ozempic) (units (unknown) date) unknown) (unknown) (no (unknown) (unknown) insulin glargine 100 (uni ts (unknown) date) unit/mL 100 unit SQ unknown) DAILY ##0 07/08/12 11/15/19 (unknown) (no (unknown) (unknown) into the top of his (unit s (unknown) date) foot and has a unknown) significant abrasion with large hematoma to (unknown) (no (unknown) (unknown) intramuscular oil (units (unknown) date) unknown) (unknown) (no (unknown) (unknown) left forearm with a (unit s (unknown) date) small area of unknown) ulceration without underlying abscess (unknown) (no (unknown) (unknown) lisinopril 20 mg (units (unknown) date) tablet 10 mg PO QDAY unknown) ##0 07/08/12 11/15/19 (unknown) (no (unknown) (unknown) looks like it could (unit s (unknown) date) have been associated unknown) with [facility] and (unknown) (no (unknown) (unknown) looks like it may be (uni ts (unknown) date) from [facility] who unknown) will follow-up on this to see if (unknown) (no (unknown) (unknown) marital status: (units (unknown) date) unknown) (unknown) (no (unknown) (unknown) medial aspect it (units (unknown) date) does not appear to be unknown) intra-articular but it is difficult to (unknown) (no (unknown) (unknown) membranes (units (unkn own) date) unknown) (unknown) (no (unknown) (unknown) mg/1.5 mL) (units (unk nown) date) subcutaneous pen unknown) (unknown) (no (unknown) (unknown) not tachypneic and (units (unknown) date) is able to speak in unknown) full sentences (unknown) (no (unknown) (unknown) omeprazole 40 mg (units (unknown) date) capsule,delayed 40 mg unknown) PO DAILY ##0 07/08/12 11/15/19 (unknown) (no (unknown) (unknown) ortho glass splint (units (unknown) date) on the medial aspect unknown) of his left lower leg that is abrading (unknown) (no (unknown) (unknown) oxycodone 10 mg (units (unknown) date) tablet,crush 10 mg PO unknown) BID 11/15/19 11/15/19 (unknown) (no (unknown) (unknown) paroxysmal atrial (units (unknown) date) fibrillation unknown) anticoagulated on rivaroxaban, hypertension, (unknown) (no (unknown) (unknown) person time place (units (unknown) date) it. He states he is unknown) not in any pain at this time. (unknown) (no (unknown) (unknown) refill both lower (units (unknown) date) extremities. unknown) (unknown) (no (unknown) (unknown) release (units (unkno wn) date) unknown) (unknown) (no (unknown) (unknown) resistant,extended (units (unknown) date) release 12 hr unknown) (unknown) (no (unknown) (unknown) rivaroxaban 20 mg (units (unknown) date) tablet (Xarelto) 20 unknown) mg PO DAILY 11/14/19 11/14/19 (unknown) (no (unknown) (unknown) semaglutide 0.25 mg (unit s (unknown) date) or 0.5 mg (2 0.25 mg unknown) SUBCUT QWEEK 11/15/19 11/15/19 (unknown) (no (unknown) (unknown) sildenafil 100 mg (units (unknown) date) tablet 100 mg PO unknown) DAILY PRN Sexual Activity 11/15/19 11/15/19 (unknown) (no (unknown) (unknown) subcutaneous (units (u nknown) date) solution (Lantus unknown) (unknown) (no (unknown) (unknown) tablet (units (unkno wn) date) unknown) (unknown) (no (unknown) (unknown) testosterone (units (u nknown) date) cypionate 200 mg/mL unknown) ##0 07/08/12 (unknown) (no (unknown) (unknown) the medial aspect of (uni ts (unknown) date) his left knee with unknown) bruising extending proximal and distal (unknown) (no (unknown) (unknown) transfuse [Packed (units (unknown) date) Cells] Stat unknown) (unknown) (no (unknown) (unknown) zolpidem [From (units (unknown) date) Ambien] Allergy unknown) Confusion Verified 11/14/19 20:28 Result panel 25 (unknown) (no (unknown) (unknown) Qty: 0 (units (unkno wn) date) unknown) (unknown) (no (unknown) (unknown) (no value) (units (unk nown) date) unknown) (unknown) (no (unknown) (unknown) Date of Service: (units (unknown) date) 01/26/22 unknown) (unknown) (no (unknown) (unknown) (no value) (units (unk nown) date) unknown) (unknown) (no (unknown) (unknown) 0.25 mg SUBCUT QWEEK (uni ts (unknown) date) unknown) (unknown) (no (unknown) (unknown) 01/26/22 19:40 (units (unknown) date) unknown) (unknown) (no (unknown) (unknown) 1 tab PO BEDTIME (units (unknown) date) unknown) (unknown) (no (unknown) (unknown) 1,275 mg PO BID Qty: (uni ts (unknown) date) 0 unknown) (unknown) (no (unknown) (unknown) 10 mg PO BID (units (u nknown) date) unknown) (unknown) (no (unknown) (unknown) 10 mg PO QDAY Qty: 0 (uni ts (unknown) date) unknown) (unknown) (no (unknown) (unknown) 10 mg PO TID (units (u nknown) date) unknown) (unknown) (no (unknown) (unknown) 100 mg PO BID (units ( unknown) date) unknown) (unknown) (no (unknown) (unknown) 100 mg PO DAILY PRN (unit s (unknown) date) (Reason: Sexual unknown) Activity) (unknown) (no (unknown) (unknown) 100 unit SQ DAILY (units (unknown) date) Qty: 0 unknown) (unknown) (no (unknown) (unknown) 12.5 mg PO BID (units (unknown) date) unknown) (unknown) (no (unknown) (unknown) 20 mg PO DAILY (units (unknown) date) unknown) (unknown) (no (unknown) (unknown) 40 mg PO DAILY Qty: (unit s (unknown) date) 0 unknown) (unknown) (no (unknown) (unknown) 50 mg PO QDAY Qty: 0 (uni ts (unknown) date) unknown) (unknown) (no (unknown) (unknown) 81 mg PO QDAY Qty: 0 (uni ts (unknown) date) unknown) (unknown) (no (unknown) (unknown) Admin: 01/26/22 (units (unknown) date) 20:35 Dose: 1,000 unknown) mls/hr (unknown) (no (unknown) (unknown) Admin: 01/26/22 (units (unknown) date) 20:35 Dose: 200 unknown) mls/hr (unknown) (no (unknown) (unknown) Admin: 01/26/22 (units (unknown) date) 20:36 Dose: 1,000 unknown) mls/hr (unknown) (no (unknown) (unknown) Admin: 01/26/22 (units (unknown) date) 21:32 Dose: 200 unknown) mls/hr (unknown) (no (unknown) (unknown) Allergies (units (unkn own) date) unknown) (unknown) (no (unknown) (unknown) Documented By: GEOVANNI (units (unknown) date) unknown) (unknown) (no (unknown) (unknown) Documented By: OW (units (unknown) date) unknown) (unknown) (no (unknown) (unknown) Documented By: ZGG (units (unknown) date) unknown) (unknown) (no (unknown) (unknown) ED Orders (units (unkn own) date) unknown) (unknown) (no (unknown) (unknown) Emergency Report (units (unknown) date) unknown) (unknown) (no (unknown) (unknown) Home Medications (units (unknown) date) unknown) (unknown) (no (unknown) (unknown) Infusion: 01/26/22 (units (unknown) date) 21:00 Dose: 0 mls/hr unknown) (unknown) (no (unknown) (unknown) [facility] [address] (uni ts (unknown) date) [address] [place] [address] (unknown) (no (unknown) (unknown) Lab Results (units (un known) date) unknown) (unknown) (no (unknown) (unknown) Last Admin: 01/26/22 (uni ts (unknown) date) 22:33 Dose: Not Given unknown) (unknown) (no (unknown) (unknown) Last Infusion: (units (unknown) date) 01/26/22 21:00 Dose: unknown) 200 mls/hr (unknown) (no (unknown) (unknown) Last Infusion: (units (unknown) date) 01/26/22 22:33 Dose: unknown) 0 mls/hr (unknown) (no (unknown) (unknown) Last Infusion: (units (unknown) date) 01/26/22 22:34 Dose: unknown) 0 mls/hr (unknown) (no (unknown) (unknown) Stop: 01/26/22 20:08 (uni ts (unknown) date) unknown) (unknown) (no (unknown) (unknown) Stop: 01/26/22 20:51 (uni ts (unknown) date) unknown) (unknown) (no (unknown) (unknown) Stop: 01/26/22 21:09 (uni ts (unknown) date) unknown) (unknown) (no (unknown) (unknown) Stop: 01/26/22 22:14 (uni ts (unknown) date) unknown) (unknown) (no (unknown) (unknown) Urine Dip (units (unkn own) date) unknown) (unknown) (no (unknown) (unknown) Vital Signs - 8 hr (units (unknown) date) unknown) (unknown) (no (unknown) (unknown) (no value) (units (unk nown) date) unknown) (unknown) (no (unknown) (unknown) 01/26/22 01/26/22 (units (unknown) date) 01/26/22 Range/Units unknown) (unknown) (no (unknown) (unknown) 01/26/22 01/26/22 (units (unknown) date) Range/Units unknown) (unknown) (no (unknown) (unknown) 19:40 19:40 19:40 (units (unknown) date) unknown) (unknown) (no (unknown) (unknown) 20:21 20:47 (units (un known) date) unknown) (unknown) (no (unknown) (unknown) Lantus U-100 Insulin (uni ts (unknown) date) 100 UNIT/1 ML unknown) solution (unknown) (no (unknown) (unknown) Metformin (units (unkn own) date) Hydrochloride unknown) (GLUCOPHAGE) (unknown) (no (unknown) (unknown) Ozempic 0.25 mg or (units (unknown) date) 0.5 mg(2 mg/1.5 mL) unknown) Pen Injector (unknown) (no (unknown) (unknown) VITAMIN D (Vitamin (units (unknown) date) D3) unknown) (unknown) (no (unknown) (unknown) Xarelto 20 mg tablet (uni ts (unknown) date) unknown) (unknown) (no (unknown) (unknown) allopurinol 100 mg (units (unknown) date) Tablet unknown) (unknown) (no (unknown) (unknown) aspirin 81 MG (units ( unknown) date) tablet,chewable unknown) (unknown) (no (unknown) (unknown) atorvastatin 20 mg (units (unknown) date) Tablet unknown) (unknown) (no (unknown) (unknown) carbidopa-levodopa (units (unknown) date) 25-100 mg Tablet unknown) (unknown) (no (unknown) (unknown) carvedilol 12.5 mg (units (unknown) date) Tablet unknown) (unknown) (no (unknown) (unknown) cyclobenzaprine 10 (units (unknown) date) mg Tablet unknown) (unknown) (no (unknown) (unknown) hydrochlorothiazide (unit s (unknown) date) 25 MG tablet unknown) (unknown) (no (unknown) (unknown) lisinopril 20 MG (units (unknown) date) tablet unknown) (unknown) (no (unknown) (unknown) omeprazole 40 MG (units (unknown) date) capsule,delayed unknown) release(DR/EC) (unknown) (no (unknown) (unknown) oxycodone 10 mg (units (unknown) date) tablet,oral unknown) only,ext.rel.12 hr (unknown) (no (unknown) (unknown) sildenafil 100 mg (units (unknown) date) Tablet unknown) (unknown) (no (unknown) (unknown) testosterone (units (u nknown) date) cypionate unknown) [Depo-Testosterone] 200 MG/1 ML oil (unknown) (no (unknown) (unknown) 01/26/22 (units (unkno wn) date) unknown) (unknown) (no (unknown) (unknown) Medication (units (unk nown) date) Instructions Recorded unknown) Confirmed (unknown) (no (unknown) (unknown) mg nightly and as (units (unknown) date) needed nitroglycerin. unknown) (unknown) (no (unknown) (unknown) (Depo-Testosterone) (unit s (unknown) date) unknown) (unknown) (no (unknown) (unknown) (GLUCOPHAGE) (units (u nknown) date) unknown) (unknown) (no (unknown) (unknown) 01/26/22 19:40 (units (unknown) date) unknown) (unknown) (no (unknown) (unknown) 01/26/22 19:45 (units (unknown) date) unknown) (unknown) (no (unknown) (unknown) 01/26/22 19:52 (units (unknown) date) unknown) (unknown) (no (unknown) (unknown) 01/26/22 20:07 (units (unknown) date) unknown) (unknown) (no (unknown) (unknown) 01/26/22 20:09 (units (unknown) date) unknown) (unknown) (no (unknown) (unknown) 01/26/22 20:15 (units (unknown) date) unknown) (unknown) (no (unknown) (unknown) 01/26/22 20:21 (units (unknown) date) unknown) (unknown) (no (unknown) (unknown) 01/26/22 20:47 (units (unknown) date) unknown) (unknown) (no (unknown) (unknown) 01/26/22 21:56 (units (unknown) date) unknown) (unknown) (no (unknown) (unknown) 19:44 01/26/22 (units (unknown) date) unknown) (unknown) (no (unknown) (unknown) 20:34 01/26/22 (units (unknown) date) unknown) (unknown) (no (unknown) (unknown) 20:41 (units (unkno wn) date) unknown) (unknown) (no (unknown) (unknown) 21:00 01/26/22 (units (unknown) date) unknown) (unknown) (no (unknown) (unknown) 21:25 (units (unkno wn) date) unknown) (unknown) (no (unknown) (unknown) 21:30 01/26/22 (units (unknown) date) unknown) (unknown) (no (unknown) (unknown) 21:45 01/26/22 (units (unknown) date) unknown) (unknown) (no (unknown) (unknown) 22:35 01/26/22 (units (unknown) date) unknown) (unknown) (no (unknown) (unknown) 22:50 (units (unkno wn) date) unknown) (unknown) (no (unknown) (unknown) 22:51 01/26/22 (units (unknown) date) unknown) (unknown) (no (unknown) (unknown) 23:04 (units (unkno wn) date) unknown) (unknown) (no (unknown) (unknown) [id number] (units (unkno wn) date) unknown) (unknown) (no (unknown) (unknown) 76-year-old (units (un known) date) gentleman with a unknown) history of coronary artery disease post CABG x4, (unknown) (no (unknown) (unknown) ALT (<50) IU/L (units (unknown) date) unknown) (unknown) (no (unknown) (unknown) ALT 27 (<50) IU/L (units (unknown) date) unknown) (unknown) (no (unknown) (unknown) AST (17-59) IU/L (units (unknown) date) unknown) (unknown) (no (unknown) (unknown) AST 28 (17-59) IU/L (unit s (unknown) date) unknown) (unknown) (no (unknown) (unknown) Abdomen: Soft, mild (unit s (unknown) date) distention but unknown) nontender, good bowel tones, no flank pain (unknown) (no (unknown) (unknown) Age/Sex: 76 / M (units (unknown) date) unknown) (unknown) (no (unknown) (unknown) Albumin (3.5-5.0) (units (unknown) date) g/dL unknown) (unknown) (no (unknown) (unknown) Albumin 3.6 (units (un known) date) (3.5-5.0) g/dL unknown) (unknown) (no (unknown) (unknown) Albumin/Globulin (units (unknown) date) Ratio (1.0-2.8) unknown) (unknown) (no (unknown) (unknown) Albumin/Globulin (units (unknown) date) Ratio 1.0 (1.0-2.8) unknown) (unknown) (no (unknown) (unknown) Alkaline Phosphatase (uni ts (unknown) date) (38-126) U/L unknown) (unknown) (no (unknown) (unknown) Alkaline Phosphatase (uni ts (unknown) date) 170 H (38-126) U/L unknown) (unknown) (no (unknown) (unknown) Allergy/AdvReac Type (uni ts (unknown) date) Severity Reaction unknown) Status Date / Time (unknown) (no (unknown) (unknown) Anisocytosis (units (u nknown) date) unknown) (unknown) (no (unknown) (unknown) Anisocytosis 3+ H (units (unknown) date) unknown) (unknown) (no (unknown) (unknown) Anti-Inflamma (units ( unknown) date) disease unknown) (unknown) (no (unknown) (unknown) Antibody Screen (units (unknown) date) unknown) (unknown) (no (unknown) (unknown) Antibody Screen (units (unknown) date) Negative unknown) (unknown) (no (unknown) (unknown) Atrial fibrillation (unit s (unknown) date) unknown) (unknown) (no (unknown) (unknown) January 06. 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 (unknown) (no (unknown) (unknown) BUN (9-20) mg/dL (units (unknown) date) unknown) (unknown) (no (unknown) (unknown) BUN 61 H (9-20) (units (unknown) date) mg/dL unknown) (unknown) (no (unknown) (unknown) BUN/Creatinine Ratio (uni ts (unknown) date) (6-22) unknown) (unknown) (no (unknown) (unknown) BUN/Creatinine Ratio (uni ts (unknown) date) 19.2 (6-22) unknown) (unknown) (no (unknown) (unknown) Baso # (Auto) (units ( unknown) date) (0-100) /uL unknown) (unknown) (no (unknown) (unknown) Baso # (Auto) 100 (units (unknown) date) (0-100) /uL unknown) (unknown) (no (unknown) (unknown) Baso % (Auto) (0-2) (unit s (unknown) date) % unknown) (unknown) (no (unknown) (unknown) Baso % (Auto) 1.0 (units (unknown) date) (0-2) % unknown) (unknown) (no (unknown) (unknown) Bedside Urine (units ( unknown) date) Bilirubin - Negative unknown) (unknown) (no (unknown) (unknown) Bedside Urine (units ( unknown) date) Glucose 500 mg/dl unknown) (unknown) (no (unknown) (unknown) Bedside Urine Ketone (uni ts (unknown) date) - Negative unknown) (unknown) (no (unknown) (unknown) Bedside Urine (units ( unknown) date) Leukocytes +/- 15 unknown) (unknown) (no (unknown) (unknown) Bedside Urine (units ( unknown) date) Nitrite - Negative unknown) (unknown) (no (unknown) (unknown) Bedside Urine Occult (uni ts (unknown) date) Blood +/- unknown) (unknown) (no (unknown) (unknown) Bedside Urine (units ( unknown) date) Protein - Negative unknown) (unknown) (no (unknown) (unknown) Bedside Urine (units ( unknown) date) Urobilinogen - unknown) Negative (unknown) (no (unknown) (unknown) Bedside Urine pH 5.5 (uni ts (unknown) date) unknown) (unknown) (no (unknown) (unknown) Blood Culture Stat (units (unknown) date) unknown) (unknown) (no (unknown) (unknown) Blood Pressure 78/54 (uni ts (unknown) date) L 01/26/22 19:44 unknown) (unknown) (no (unknown) (unknown) Blood Pressure 78/54 (uni ts (unknown) date) L 102/52 L unknown) (unknown) (no (unknown) (unknown) Blood Pressure 94/46 (uni ts (unknown) date) L 95/55 L 98/52 L unknown) (unknown) (no (unknown) (unknown) Blood Pressure 98/52 (uni ts (unknown) date) L 95/54 L 95/50 L unknown) (unknown) (no (unknown) (unknown) Blood Pressure 98/52 (uni ts (unknown) date) L 97/52 L unknown) (unknown) (no (unknown) (unknown) Blood Type (units (unk nown) date) unknown) (unknown) (no (unknown) (unknown) Blood Type A (units (u nknown) date) Negative unknown) (unknown) (no (unknown) (unknown) COVID19 -Nasal (units (unknown) date) RAPID/Pre-Proc Stat unknown) (unknown) (no (unknown) (unknown) CT LE LT wo con Stat (uni ts (unknown) date) unknown) (unknown) (no (unknown) (unknown) CT head/brain wo con (uni ts (unknown) date) Stat unknown) (unknown) (no (unknown) (unknown) Calcium (8.4-10.2) (units (unknown) date) mg/dL unknown) (unknown) (no (unknown) (unknown) Calcium 8.4 (units (un known) date) (8.4-10.2) mg/dL unknown) (unknown) (no (unknown) (unknown) Carbon Dioxide (units (unknown) date) (22-32) mmol/L unknown) (unknown) (no (unknown) (unknown) Carbon Dioxide 27 (units (unknown) date) (22-32) mmol/L unknown) (unknown) (no (unknown) (unknown) Cardiac: Regular (units (unknown) date) rate and rhythm no unknown) murmurs no bruits (unknown) (no (unknown) (unknown) Chief complaint: (units (unknown) date) Skin/Abscess/Foreign unknown) Body (unknown) (no (unknown) (unknown) Chloride (98-107) (units (unknown) date) mmol/L unknown) (unknown) (no (unknown) (unknown) Chloride 97 L (units ( unknown) date) (98-107) mmol/L unknown) (unknown) (no (unknown) (unknown) Complete Blood Count (uni ts (unknown) date) AUTO DIFF Stat unknown) (unknown) (no (unknown) (unknown) Comprehensive (units ( unknown) date) Metabolic Panel Stat unknown) (unknown) (no (unknown) (unknown) Coronary artery (units (unknown) date) disease unknown) (unknown) (no (unknown) (unknown) Course (units (unkno wn) date) unknown) (unknown) (no (unknown) (unknown) Creatinine (units (unk nown) date) (0.66-1.25) mg/dL unknown) (unknown) (no (unknown) (unknown) Creatinine 3.18 H (units (unknown) date) (0.66-1.25) mg/dL unknown) (unknown) (no (unknown) (unknown) Crossmatch (units (unk nown) date) unknown) (unknown) (no (unknown) (unknown) Crossmatch See (units (unknown) date) Detail unknown) (unknown) (no (unknown) (unknown) : 1945 (units (unknown) date) Acct:[id number] unknown) (unknown) (no (unknown) (unknown) Departure (units (unkn own) date) unknown) (unknown) (no (unknown) (unknown) Diabetes (units (unkno wn) date) unknown) (unknown) (no (unknown) (unknown) Discharge Plan (units (unknown) date) unknown) (unknown) (no (unknown) (unknown) Discontinued (units (u nknown) date) Medications unknown) (unknown) (no (unknown) (unknown) Dyslipidemia (units (u nknown) date) unknown) (unknown) (no (unknown) (unknown) ECG Data (units (unkno wn) date) unknown) (unknown) (no (unknown) (unknown) EKG-12 Lead Stat (units (unknown) date) unknown) (unknown) (no (unknown) (unknown) ER Physician: (units ( unknown) date) Ashley Glynn MD unknown) (unknown) (no (unknown) (unknown) Eos # (Auto) (0-450) (uni ts (unknown) date) /uL unknown) (unknown) (no (unknown) (unknown) Eos # (Auto) 200 (units (unknown) date) (0-450) /uL unknown) (unknown) (no (unknown) (unknown) Eos % (Auto) (2-4) % (uni ts (unknown) date) unknown) (unknown) (no (unknown) (unknown) Eos % (Auto) 2.8 (units (unknown) date) (2-4) % unknown) (unknown) (no (unknown) (unknown) Esterase (units (unkno wn) date) unknown) (unknown) (no (unknown) (unknown) Estimated GFR (>60) (unit s (unknown) date) mL/min unknown) (unknown) (no (unknown) (unknown) Estimated GFR 19 L (units (unknown) date) (>60) mL/min unknown) (unknown) (no (unknown) (unknown) Exam (units (unkno wn) date) unknown) (unknown) (no (unknown) (unknown) Extremities: Left (units (unknown) date) leg is described unknown) under the skin exam. Reasonable capillary (unknown) (no (unknown) (unknown) Full and symmetrical (uni ts (unknown) date) air movement unknown) (unknown) (no (unknown) (unknown) General (units (unkno wn) date) unknown) (unknown) (no (unknown) (unknown) General: Chronically (unit s (unknown) date) ill-appearing, pale, unknown) weak but in no acute distress. He is (unknown) (no (unknown) (unknown) GenericComposite[Plt (uni ts (unknown) date) Count (150-400) unknown) X10^3/uL ] (unknown) (no (unknown) (unknown) GenericComposite[Plt (uni ts (unknown) date) Count 206 (150-400) unknown) X10^3/uL ] (unknown) (no (unknown) (unknown) GenericComposite[RBC (uni ts (unknown) date) (4.5-5.9) X10^6/uL ] unknown) (unknown) (no (unknown) (unknown) GenericComposite[RBC (uni ts (unknown) date) 2.75 L (4.5-5.9) unknown) X10^6/uL ] (unknown) (no (unknown) (unknown) GenericComposite[WBC (uni ts (unknown) date) (4.5-11.0) X10^3/uL ] unknown) (unknown) (no (unknown) (unknown) GenericComposite[WBC (uni ts (unknown) date) 7.1 (4.5-11.0) unknown) X10^3/uL ] (unknown) (no (unknown) (unknown) Globulin (1.7-4.1) (units (unknown) date) g/dL unknown) (unknown) (no (unknown) (unknown) Globulin 3.5 (units (u nknown) date) (1.7-4.1) g/dL unknown) (unknown) (no (unknown) (unknown) Glucose (80-110) (units (unknown) date) mg/dL unknown) (unknown) (no (unknown) (unknown) Glucose 130 H (units ( unknown) date) (80-110) mg/dL unknown) (unknown) (no (unknown) (unknown) HEENT: Moist mucous (unit s (unknown) date) membranes, normal unknown) sclera with reactive pupils, pale mucous (unknown) (no (unknown) (unknown) HPI - General Adult (unit s (unknown) date) unknown) (unknown) (no (unknown) (unknown) HPI narrative: (units (unknown) date) unknown) (unknown) (no (unknown) (unknown) Have spoken with his (uni ts (unknown) date) son and medical unknown) records are now available for review. (unknown) (no (unknown) (unknown) Hct (41-53) % (units (unknown) date) unknown) (unknown) (no (unknown) (unknown) Hct 20.8 L* (41-53) (unit s (unknown) date) % unknown) (unknown) (no (unknown) (unknown) Hgb (13.5-17.5) g/dL (uni ts (unknown) date) unknown) (unknown) (no (unknown) (unknown) Hgb 6.7 L* (units (unk nown) date) (13.5-17.5) g/dL unknown) (unknown) (no (unknown) (unknown) History of Present (units (unknown) date) Illness unknown) (unknown) (no (unknown) (unknown) Hx of (units (unkno wn) date) cholecystectomy unknown) (unknown) (no (unknown) (unknown) Hypertension (units (u nknown) date) unknown) (unknown) (no (unknown) (unknown) IV NOW ONE (units (unk nown) date) unknown) (unknown) (no (unknown) (unknown) Initial Vital Signs (unit s (unknown) date) unknown) (unknown) (no (unknown) (unknown) Initial Vital Signs: (uni ts (unknown) date) unknown) (unknown) (no (unknown) (unknown) Interpretation: (units (unknown) date) unknown) (unknown) (no (unknown) (unknown) Lab Data (units (unkno wn) date) unknown) (unknown) (no (unknown) (unknown) Labs: (units (unkno wn) date) unknown) (unknown) (no (unknown) (unknown) Lactate (0.7-2.1) (units (unknown) date) mmol/L unknown) (unknown) (no (unknown) (unknown) Lactate 1.3 (units (un known) date) (0.7-2.1) mmol/L unknown) (unknown) (no (unknown) (unknown) Lactate (Lactic (units (unknown) date) Acid) Stat unknown) (unknown) (no (unknown) (unknown) Lipase (23-300) U/L (unit s (unknown) date) unknown) (unknown) (no (unknown) (unknown) Lipase 135 (23-300) (unit s (unknown) date) U/L unknown) (unknown) (no (unknown) (unknown) Lipase Stat (units (un known) date) unknown) (unknown) (no (unknown) (unknown) Lymph # (Auto) (units (unknown) date) (7612-8703) /uL unknown) (unknown) (no (unknown) (unknown) Lymph # (Auto) 800 L (uni ts (unknown) date) (2327-3147) /uL unknown) (unknown) (no (unknown) (unknown) Lymph % (Auto) (units (unknown) date) (25-40) % unknown) (unknown) (no (unknown) (unknown) Lymph % (Auto) 11.4 (unit s (unknown) date) L (25-40) % unknown) (unknown) (no (unknown) (unknown) MCH (26-34) PG (units (unknown) date) unknown) (unknown) (no (unknown) (unknown) MCH 24.6 L (26-34) (units (unknown) date) PG unknown) (unknown) (no (unknown) (unknown) MCHC (30-36) % (units (unknown) date) unknown) (unknown) (no (unknown) (unknown) MCHC 32.4 (30-36) % (unit s (unknown) date) unknown) (unknown) (no (unknown) (unknown) MCV (80-100) fL (units (unknown) date) unknown) (unknown) (no (unknown) (unknown) MCV 75.7 L (80-100) (unit s (unknown) date) fL unknown) (unknown) (no (unknown) (unknown) MDM Narrative (units ( unknown) date) unknown) (unknown) (no (unknown) (unknown) Medical Decision (units (unknown) date) Making unknown) (unknown) (no (unknown) (unknown) Medical History (units (unknown) date) (Updated 01/26/22 @ unknown) 20:14 by Ashley Glynn MD) (unknown) (no (unknown) (unknown) Medical decision (units (unknown) date) making narrative: unknown) (unknown) (no (unknown) (unknown) Metformin (units (unkn own) date) Hydrochloride 1,275 unknown) mg PO BID ##0 07/08/12 (unknown) (no (unknown) (unknown) Miscellaneous,Doctor (uni ts (unknown) date) , [Primary Care unknown) Provider] - (unknown) (no (unknown) (unknown) [place] # (Auto) (units ( unknown) date) (0-900) /uL unknown) (unknown) (no (unknown) (unknown) [place] # (Auto) 700 (units (unknown) date) (0-900) /uL unknown) (unknown) (no (unknown) (unknown) [place] % (Auto) (3-14) (uni ts (unknown) date) % unknown) (unknown) (no (unknown) (unknown) [place] % (Auto) 9.8 (units (unknown) date) (3-14) % unknown) (unknown) (no (unknown) (unknown) NSAIDS (units (unkno wn) date) (Non-Steroidal unknown) AdvReac Severe kidney Verified 11/14/19 20:28 (unknown) (no (unknown) (unknown) Neck: No JVD, supple (uni ts (unknown) date) unknown) (unknown) (no (unknown) (unknown) Neurologic: Globally (uni ts (unknown) date) weak but able to move unknown) all extremities (unknown) (no (unknown) (unknown) Neut # (Auto) (units ( unknown) date) (1993-0127) /uL unknown) (unknown) (no (unknown) (unknown) Neut # (Auto) 5400 (units (unknown) date) (8690-2011) /uL unknown) (unknown) (no (unknown) (unknown) Neut % (Auto) (units ( unknown) date) (50-75) % unknown) (unknown) (no (unknown) (unknown) Neut % (Auto) 75.0 (units (unknown) date) (50-75) % unknown) (unknown) (no (unknown) (unknown) No Action (units (unkn own) date) unknown) (unknown) (no (unknown) (unknown) ONE (units (unkno wn) date) unknown) (unknown) (no (unknown) (unknown) Ordered: (units (unkno wn) date) unknown) (unknown) (no (unknown) (unknown) Orders (units (unkno wn) date) unknown) (unknown) (no (unknown) (unknown) Oxygen Delivery (units (unknown) date) Method unknown) (unknown) (no (unknown) (unknown) Oxygen Delivery (units (unknown) date) Method unknown) (unknown) (no (unknown) (unknown) Oxygen Delivery (units (unknown) date) Method 01/26/22 19:44 unknown) (unknown) (no (unknown) (unknown) Oxygen Delivery (units (unknown) date) Method Room Air unknown) (unknown) (no (unknown) (unknown) Patient History (units (unknown) date) unknown) (unknown) (no (unknown) (unknown) Patient was (units (un known) date) [facility] unknown[facility] [place] for acute congestive heart failure on (unknown) (no (unknown) (unknown) Patient: (units (unkno wn) date) Osmel Baxter MR#: unknown) M000 (unknown) (no (unknown) (unknown) Piperacillin (units (u nknown) date) Sod/Tazobactam (Sod unknown) 4.5 gm/ Sodium Chloride) 100 mls @ 200 mls/hr (unknown) (no (unknown) (unknown) Point of care (units ( unknown) date) testing: unknown) (unknown) (no (unknown) (unknown) Potassium (3.4-5.1) (unit s (unknown) date) mmol/L unknown) (unknown) (no (unknown) (unknown) Potassium 4.3 (units ( unknown) date) (3.4-5.1) mmol/L unknown) (unknown) (no (unknown) (unknown) Prescriptions: (units (unknown) date) unknown) (unknown) (no (unknown) (unknown) Procalcitonin (<0.5) (uni ts (unknown) date) ng/mL unknown) (unknown) (no (unknown) (unknown) Procalcitonin 0.50 (units (unknown) date) (<0.5) ng/mL unknown) (unknown) (no (unknown) (unknown) Procalcitonin Stat (units (unknown) date) unknown) (unknown) (no (unknown) (unknown) Psych: Will respond (unit s (unknown) date) to yes or no unknown) questions but otherwise altered. (unknown) (no (unknown) (unknown) Pulse Oximetry (units (unknown) date) unknown) (unknown) (no (unknown) (unknown) Pulse Oximetry 98 (units (unknown) date) unknown) (unknown) (no (unknown) (unknown) Pulse Oximetry 97 (units (unknown) date) 01/26/22 19:44 unknown) (unknown) (no (unknown) (unknown) Pulse Oximetry 97 98 (uni ts (unknown) date) unknown) (unknown) (no (unknown) (unknown) Pulse Oximetry 99 (units (unknown) date) unknown) (unknown) (no (unknown) (unknown) Pulse Rate 65 (units ( unknown) date) 01/26/22 19:44 unknown) (unknown) (no (unknown) (unknown) Pulse Rate 63 63 (units (unknown) date) unknown) (unknown) (no (unknown) (unknown) Pulse Rate 64 62 62 (unit s (unknown) date) unknown) (unknown) (no (unknown) (unknown) Pulse Rate 64 64 65 (unit s (unknown) date) unknown) (unknown) (no (unknown) (unknown) Pulse Rate 65 65 64 (unit s (unknown) date) unknown) (unknown) (no (unknown) (unknown) RBC Morphology (units (unknown) date) unknown) (unknown) (no (unknown) (unknown) RBC Morphology Not (units (unknown) date) Reportable unknown) (unknown) (no (unknown) (unknown) RDW (11.6-14.8) % (units (unknown) date) unknown) (unknown) (no (unknown) (unknown) RDW 24.5 H (units (unk nown) date) (11.6-14.8) % unknown) (unknown) (no (unknown) (unknown) ROS Unobtainable: (units (unknown) date) Unobtainable due to unknown) mental condition (unknown) (no (unknown) (unknown) RT Consult Eval and (unit s (unknown) date) Treat NOW unknown) (unknown) (no (unknown) (unknown) Referrals: (units (unk nown) date) unknown) (unknown) (no (unknown) (unknown) Related Data (units (u nknown) date) unknown) (unknown) (no (unknown) (unknown) Respiratory Rate 21 (unit s (unknown) date) 01/26/22 19:44 unknown) (unknown) (no (unknown) (unknown) Respiratory Rate 18 (unit s (unknown) date) 14 21 unknown) (unknown) (no (unknown) (unknown) Respiratory Rate 18 (unit s (unknown) date) 15 unknown) (unknown) (no (unknown) (unknown) Respiratory Rate 20 (unit s (unknown) date) 12 18 unknown) (unknown) (no (unknown) (unknown) Respiratory Rate 21 (unit s (unknown) date) 17 17 unknown) (unknown) (no (unknown) (unknown) Respiratory: Lungs (units (unknown) date) are clear to unknown) auscultation, no wheezing no rales no rhonchi. (unknown) (no (unknown) (unknown) Result diagrams: (units (unknown) date) unknown) (unknown) (no (unknown) (unknown) Review of Systems (units (unknown) date) unknown) (unknown) (no (unknown) (unknown) S/P CABG x 4 (units (u nknown) date) unknown) (unknown) (no (unknown) (unknown) SARS-CoV-2 (PCR) (units (unknown) date) (Negative) unknown) (unknown) (no (unknown) (unknown) SARS-CoV-2 (PCR) (units (unknown) date) Negative (Negative) unknown) (unknown) (no (unknown) (unknown) Signed By: (units (unk nown) date) unknown) (unknown) (no (unknown) (unknown) Sinus rhythm, left (units (unknown) date) bundle-branch block, unknown) no acute ischemic changes, rate of 67 (unknown) (no (unknown) (unknown) Skin: Pale, Warm and (uni ts (unknown) date) dry, multiple bruises unknown) some look like there from recent (unknown) (no (unknown) (unknown) Sleep apnea (units (un known) date) unknown) (unknown) (no (unknown) (unknown) Smoking Status: (units (unknown) date) Former smoker unknown) (unknown) (no (unknown) (unknown) Smoking Status: (units (unknown) date) Former smoker unknown) (unknown) (no (unknown) (unknown) Social History (units (unknown) date) (Updated 09/25/18 @ unknown) 11:17 by Telma Dickey DO) (unknown) (no (unknown) (unknown) Sodium (137-145) (units (unknown) date) mmol/L unknown) (unknown) (no (unknown) (unknown) Sodium 132 L (units (u nknown) date) (137-145) mmol/L unknown) (unknown) (no (unknown) (unknown) Sodium Chloride (units (unknown) date) (Normal Saline 0.9%) unknown) 1,000 mls @ 1,000 mls/hr IV BOLUS ONE (unknown) (no (unknown) (unknown) Stated complaint: (units (unknown) date) Dementia unknown) (unknown) (no (unknown) (unknown) Substance Use Type: (unit s (unknown) date) does not use unknown) (unknown) (no (unknown) (unknown) Surgical History (units (unknown) date) (Reviewed 11/15/19 @ unknown) 04:28 by MEKA Garcia) (unknown) (no (unknown) (unknown) Temperature 96.3 F L (uni ts (unknown) date) 96.8 F L unknown) (unknown) (no (unknown) (unknown) Temperature 97.7 F (units (unknown) date) 01/26/22 19:44 unknown) (unknown) (no (unknown) (unknown) Temperature 96.7 F L (uni ts (unknown) date) 96.5 F L unknown) (unknown) (no (unknown) (unknown) Temperature 97.7 F (units (unknown) date) 96.8 F L unknown) (unknown) (no (unknown) (unknown) Temperature 98.6 F (units (unknown) date) 96.8 F L unknown) (unknown) (no (unknown) (unknown) Time Seen by (units (u nknown) date) Provider: 01/26/22 unknown) 19:49 (unknown) (no (unknown) (unknown) Total Bilirubin (units (unknown) date) (0.2-1.3) mg/dL unknown) (unknown) (no (unknown) (unknown) Total Bilirubin 1.5 (unit s (unknown) date) H (0.2-1.3) mg/dL unknown) (unknown) (no (unknown) (unknown) Total Protein (units ( unknown) date) (6.3-8.2) g/dL unknown) (unknown) (no (unknown) (unknown) Total Protein 7.1 (units (unknown) date) (6.3-8.2) g/dL unknown) (unknown) (no (unknown) (unknown) Type and Screen Stat (uni ts (unknown) date) unknown) (unknown) (no (unknown) (unknown) U-100 Insulin) (units (unknown) date) unknown) (unknown) (no (unknown) (unknown) Urine Microscopic (units (unknown) date) Stat unknown) (unknown) (no (unknown) (unknown) Urine Specific (units (unknown) date) [place] 1.02 unknown) (unknown) (no (unknown) (unknown) VITAMIN D (Vitamin (units (unknown) date) D3) ##0 07/08/12 unknown) (unknown) (no (unknown) (unknown) Vancomycin HCl (units (unknown) date) (Vancomycin Per unknown) Pharmacy) [place] [facility] [place] ([place]) (no (unknown) (unknown) Vancomycin (units (unk nown) date) HCl/Dextrose unknown) (Vancomycin) 1,500 mg in 300 mls @ 200 mls/hr IV NOW (unknown) (no (unknown) (unknown) Vital Signs (units (un known) date) unknown) (unknown) (no (unknown) (unknown) Vital signs: (units (u nknown) date) unknown) (unknown) (no (unknown) (unknown) XR chest 1V Stat (units (unknown) date) unknown) (unknown) (no (unknown) (unknown) [Embedded Image Not (unit s (unknown) date) Available] unknown) (unknown) (no (unknown) (unknown) additional records (units (unknown) date) are present. He is unknown) weak, confused, cooperative he has an (unknown) (no (unknown) (unknown) alcohol intake (units (unknown) date) frequency: unknown) holidays/special occasions only (unknown) (no (unknown) (unknown) allopurinol 100 mg (units (unknown) date) tablet 100 mg PO BID unknown) 11/15/19 11/15/19 (unknown) (no (unknown) (unknown) and concerned that (units (unknown) date) ?times he is not unknown) completely aware?. No additional history is (unknown) (no (unknown) (unknown) and developing (units (unknown) date) cellulitis, multiple unknown) bruises all over. He is pale but not (unknown) (no (unknown) (unknown) aspirin 81 mg (units ( unknown) date) chewable tablet 81 mg unknown) PO QDAY ##0 07/08/12 11/15/19 (unknown) (no (unknown) (unknown) atorvastatin 20 mg (units (unknown) date) tablet 20 mg PO DAILY unknown) 11/15/19 11/15/19 (unknown) (no (unknown) (unknown) available. There is (unit s (unknown) date) a med list that was unknown) printed out from the end of December it (unknown) (no (unknown) (unknown) carbidopa 25 (units (u nknown) date) mg-levodopa 100 mg 1 unknown) tab PO BEDTIME RLS 11/15/19 11/15/19 (unknown) (no (unknown) (unknown) carvedilol 12.5 mg (units (unknown) date) tablet 12.5 mg PO BID unknown) 11/15/19 11/15/19 (unknown) (no (unknown) (unknown) complaining of (units (unknown) date) headache. He will unknown) open his eyes to command but not oriented to (unknown) (no (unknown) (unknown) cyclobenzaprine 10 (units (unknown) date) mg tablet 10 mg PO unknown) TID 11/15/19 11/15/19 (unknown) (no (unknown) (unknown) details: x 9 (uni ts (unknown) date) months unknown) (unknown) (no (unknown) (unknown) developing mild (units (unknown) date) erythema. Left knee unknown) with a very large bulla/hematoma on the (unknown) (no (unknown) (unknown) echocardiogram and (units (unknown) date) cardioversion for unknown) atrial fibrillation. Was discharged home (unknown) (no (unknown) (unknown) excoriation on the (units (unknown) date) medial aspect of his unknown) foot from the splint as well. (unknown) (no (unknown) (unknown) failure and (units (un known) date) Parkinson's his son unknown) called with concerns for his overall well-being (unknown) (no (unknown) (unknown) ferrous gluconate 324 (uni ts (unknown) date) mg, glargine insulin, unknown) metformin, omeprazole, Mirapex 0.125 (unknown) (no (unknown) (unknown) ferrous sulfate (units (unknown) date) Allergy Muscle Pain unknown) Verified 11/14/19 20:28 (unknown) (no (unknown) (unknown) from his knee with (units (unknown) date) minimal range of unknown) motion at the knee. He also has a dressing (unknown) (no (unknown) (unknown) fully assess. It (units (unknown) date) clearly is more than unknown) a couple of days old appears exacerbated (unknown) (no (unknown) (unknown) gabapentin Allergy (units (unknown) date) Confusion Verified unknown) 11/14/19 20:28 (unknown) (no (unknown) (unknown) hospitalization and (unit s (unknown) date) some from his very unknown) frail skin. Area of excoriation on the (unknown) (no (unknown) (unknown) household members: (units (unknown) date) significant other unknown) (unknown) (no (unknown) (unknown) hydrochlorothiazide (unit s (unknown) date) 25 mg tablet 50 mg PO unknown) QDAY ##0 07/08/12 (unknown) (no (unknown) (unknown) hyperlipidemia, (units (unknown) date) diabetes, cognitive unknown) decline, hyperlipidemia, congestive heart (unknown) (no (unknown) (unknown) if not caused from (units (unknown) date) the splint that had unknown) been in place. There is an area of (unknown) (no (unknown) (unknown) in place on the left (uni ts (unknown) date) forearm with unknown) underlying skin irritation shallow ulceration (unknown) (no (unknown) (unknown) injector (Ozempic) (units (unknown) date) unknown) (unknown) (no (unknown) (unknown) insulin glargine 100 (uni ts (unknown) date) unit/mL 100 unit SQ unknown) DAILY ##0 07/08/12 11/15/19 (unknown) (no (unknown) (unknown) into the top of his (unit s (unknown) date) foot and has a unknown) significant abrasion with large hematoma to (unknown) (no (unknown) (unknown) intramuscular oil (units (unknown) date) unknown) (unknown) (no (unknown) (unknown) left forearm with a (unit s (unknown) date) small area of unknown) ulceration without underlying abscess (unknown) (no (unknown) (unknown) lisinopril 20 mg (units (unknown) date) tablet 10 mg PO QDAY unknown) ##0 07/08/12 11/15/19 (unknown) (no (unknown) (unknown) looks like it could (unit s (unknown) date) have been associated unknown) with the [facility] and (unknown) (no (unknown) (unknown) looks like it may be (uni ts (unknown) date) from [facility] who unknown) will follow-up on this to see if (unknown) (no (unknown) (unknown) marital status: (units (unknown) date) unknown) (unknown) (no (unknown) (unknown) medial aspect it (units (unknown) date) does not appear to be unknown) intra-articular but it is difficult to (unknown) (no (unknown) (unknown) membranes (units (unkn own) date) unknown) (unknown) (no (unknown) (unknown) mg, allopurinol, (units (unknown) date) amiodarone 200 mg, unknown) atorvastatin 40 mg, duloxetine 30 mg, (unknown) (no (unknown) (unknown) mg/1.5 mL) (units (unk nown) date) subcutaneous pen unknown) (unknown) (no (unknown) (unknown) not tachypneic and (units (unknown) date) is able to speak in unknown) full sentences (unknown) (no (unknown) (unknown) omeprazole 40 mg (units (unknown) date) capsule,delayed 40 mg unknown) PO DAILY ##0 07/08/12 11/15/19 (unknown) (no (unknown) (unknown) ortho glass splint (units (unknown) date) on the medial aspect unknown) of his left lower leg that is abrading (unknown) (no (unknown) (unknown) oxycodone 10 mg (units (unknown) date) tablet,crush 10 mg PO unknown) BID 11/15/19 11/15/19 (unknown) (no (unknown) (unknown) paroxysmal atrial (units (unknown) date) fibrillation unknown) anticoagulated on rivaroxaban, hypertension, (unknown) (no (unknown) (unknown) person time place (units (unknown) date) it. He states he is unknown) not in any pain at this time. (unknown) (no (unknown) (unknown) refill both lower (units (unknown) date) extremities. unknown) (unknown) (no (unknown) (unknown) release (units (unkno wn) date) unknown) (unknown) (no (unknown) (unknown) resistant,extended (units (unknown) date) release 12 hr unknown) (unknown) (no (unknown) (unknown) rivaroxaban 20 mg (units (unknown) date) tablet (Xarelto) 20 unknown) mg PO DAILY 11/14/19 11/14/19 (unknown) (no (unknown) (unknown) semaglutide 0.25 mg (unit s (unknown) date) or 0.5 mg (2 0.25 mg unknown) SUBCUT QWEEK 11/15/19 11/15/19 (unknown) (no (unknown) (unknown) sildenafil 100 mg (units (unknown) date) tablet 100 mg PO unknown) DAILY PRN Sexual Activity 11/15/19 11/15/19 (unknown) (no (unknown) (unknown) spironolactone 25 (units (unknown) date) mg, torsemide 20 mg, unknown) Jardiance, lisinopril 2.5 mg, Xarelto 15 (unknown) (no (unknown) (unknown) subcutaneous (units (u nknown) date) solution (Lantus unknown) (unknown) (no (unknown) (unknown) tablet (units (unkno wn) date) unknown) (unknown) (no (unknown) (unknown) testosterone (units (u nknown) date) cypionate 200 mg/mL unknown) ##0 07/08/12 (unknown) (no (unknown) (unknown) the medial aspect of (uni ts (unknown) date) his left knee with unknown) bruising extending proximal and distal (unknown) (no (unknown) (unknown) to his son's house (units (unknown) date) on aspirin, unknown) clopidogrel, metoprolol succinate 50 mg, (unknown) (no (unknown) (unknown) transfuse [Packed (units (unknown) date) Cells] Stat unknown) (unknown) (no (unknown) (unknown) underwent PCI of the (uni ts (unknown) date) distal right coronary unknown) artery, had a transesophageal (unknown) (no (unknown) (unknown) ventricular ejection (uni ts (unknown) date) fraction at 15% with unknown) volume overload and tachycardia. He (unknown) (no (unknown) (unknown) zolpidem [From (units (unknown) date) Ambien] Allergy unknown) Confusion Verified 11/14/19 20:28 Result panel 26 (unknown) (no (unknown) (unknown) Qty: 0 (units (unkno wn) date) unknown) (unknown) (no (unknown) (unknown) (no value) (units (unk nown) date) unknown) (unknown) (no (unknown) (unknown) Date of Service: (units (unknown) date) 01/26/22 unknown) (unknown) (no (unknown) (unknown) (no value) (units (unk nown) date) unknown) (unknown) (no (unknown) (unknown) 0.25 mg SUBCUT QWEEK (uni ts (unknown) date) unknown) (unknown) (no (unknown) (unknown) 01/26/22 19:40 (units (unknown) date) unknown) (unknown) (no (unknown) (unknown) 1 tab PO BEDTIME (units (unknown) date) unknown) (unknown) (no (unknown) (unknown) 1,275 mg PO BID Qty: (uni ts (unknown) date) 0 unknown) (unknown) (no (unknown) (unknown) 10 mg PO BID (units (u nknown) date) unknown) (unknown) (no (unknown) (unknown) 10 mg PO QDAY Qty: 0 (uni ts (unknown) date) unknown) (unknown) (no (unknown) (unknown) 10 mg PO TID (units (u nknown) date) unknown) (unknown) (no (unknown) (unknown) 100 mg PO BID (units ( unknown) date) unknown) (unknown) (no (unknown) (unknown) 100 mg PO DAILY PRN (unit s (unknown) date) (Reason: Sexual unknown) Activity) (unknown) (no (unknown) (unknown) 100 unit SQ DAILY (units (unknown) date) Qty: 0 unknown) (unknown) (no (unknown) (unknown) 12.5 mg PO BID (units (unknown) date) unknown) (unknown) (no (unknown) (unknown) 20 mg PO DAILY (units (unknown) date) unknown) (unknown) (no (unknown) (unknown) 40 mg PO DAILY Qty: (unit s (unknown) date) 0 unknown) (unknown) (no (unknown) (unknown) 50 mg PO QDAY Qty: 0 (uni ts (unknown) date) unknown) (unknown) (no (unknown) (unknown) 81 mg PO QDAY Qty: 0 (uni ts (unknown) date) unknown) (unknown) (no (unknown) (unknown) Admin: 01/26/22 (units (unknown) date) 20:35 Dose: 1,000 unknown) mls/hr (unknown) (no (unknown) (unknown) Admin: 01/26/22 (units (unknown) date) 20:35 Dose: 200 unknown) mls/hr (unknown) (no (unknown) (unknown) Admin: 01/26/22 (units (unknown) date) 20:36 Dose: 1,000 unknown) mls/hr (unknown) (no (unknown) (unknown) Admin: 01/26/22 (units (unknown) date) 21:32 Dose: 200 unknown) mls/hr (unknown) (no (unknown) (unknown) Allergies (units (unkn own) date) unknown) (unknown) (no (unknown) (unknown) Documented By: KH (units (unknown) date) unknown) (unknown) (no (unknown) (unknown) Documented By: OW (units (unknown) date) unknown) (unknown) (no (unknown) (unknown) Documented By: ZGG (units (unknown) date) unknown) (unknown) (no (unknown) (unknown) ED Orders (units (unkn own) date) unknown) (unknown) (no (unknown) (unknown) Emergency Report (units (unknown) date) unknown) (unknown) (no (unknown) (unknown) Home Medications (units (unknown) date) unknown) (unknown) (no (unknown) (unknown) Infusion: 01/26/22 (units (unknown) date) 21:00 Dose: 0 mls/hr unknown) (unknown) (no (unknown) (unknown) [facility] [id number] (uni ts (unknown) date) [address] unknown) [place] [address] (unknown) (no (unknown) (unknown) Lab Results (units (un known) date) unknown) (unknown) (no (unknown) (unknown) Last Admin: 01/26/22 (uni ts (unknown) date) 22:33 Dose: Not Given unknown) (unknown) (no (unknown) (unknown) Last Infusion: (units (unknown) date) 01/26/22 21:00 Dose: unknown) 200 mls/hr (unknown) (no (unknown) (unknown) Last Infusion: (units (unknown) date) 01/26/22 22:33 Dose: unknown) 0 mls/hr (unknown) (no (unknown) (unknown) Last Infusion: (units (unknown) date) 01/26/22 22:34 Dose: unknown) 0 mls/hr (unknown) (no (unknown) (unknown) Stop: 01/26/22 20:08 (uni ts (unknown) date) unknown) (unknown) (no (unknown) (unknown) Stop: 01/26/22 20:51 (uni ts (unknown) date) unknown) (unknown) (no (unknown) (unknown) Stop: 01/26/22 21:09 (uni ts (unknown) date) unknown) (unknown) (no (unknown) (unknown) Stop: 01/26/22 22:14 (uni ts (unknown) date) unknown) (unknown) (no (unknown) (unknown) Urine Dip (units (unkn own) date) unknown) (unknown) (no (unknown) (unknown) Vital Signs - 8 hr (units (unknown) date) unknown) (unknown) (no (unknown) (unknown) (no value) (units (unk nown) date) unknown) (unknown) (no (unknown) (unknown) 01/26/22 01/26/22 (units (unknown) date) 01/26/22 Range/Units unknown) (unknown) (no (unknown) (unknown) 01/26/22 01/26/22 (units (unknown) date) Range/Units unknown) (unknown) (no (unknown) (unknown) 19:40 19:40 19:40 (units (unknown) date) unknown) (unknown) (no (unknown) (unknown) 20:21 20:47 (units (un known) date) unknown) (unknown) (no (unknown) (unknown) Lantus U-100 Insulin (uni ts (unknown) date) 100 UNIT/1 ML unknown) solution (unknown) (no (unknown) (unknown) Metformin (units (unkn own) date) Hydrochloride unknown) (GLUCOPHAGE) (unknown) (no (unknown) (unknown) Ozempic 0.25 mg or (units (unknown) date) 0.5 mg(2 mg/1.5 mL) unknown) Pen Injector (unknown) (no (unknown) (unknown) VITAMIN D (Vitamin (units (unknown) date) D3) unknown) (unknown) (no (unknown) (unknown) Xarelto 20 mg tablet (uni ts (unknown) date) unknown) (unknown) (no (unknown) (unknown) allopurinol 100 mg (units (unknown) date) Tablet unknown) (unknown) (no (unknown) (unknown) aspirin 81 MG (units ( unknown) date) tablet,chewable unknown) (unknown) (no (unknown) (unknown) atorvastatin 20 mg (units (unknown) date) Tablet unknown) (unknown) (no (unknown) (unknown) carbidopa-levodopa (units (unknown) date) 25-100 mg Tablet unknown) (unknown) (no (unknown) (unknown) carvedilol 12.5 mg (units (unknown) date) Tablet unknown) (unknown) (no (unknown) (unknown) cyclobenzaprine 10 (units (unknown) date) mg Tablet unknown) (unknown) (no (unknown) (unknown) hydrochlorothiazide (unit s (unknown) date) 25 MG tablet unknown) (unknown) (no (unknown) (unknown) lisinopril 20 MG (units (unknown) date) tablet unknown) (unknown) (no (unknown) (unknown) omeprazole 40 MG (units (unknown) date) capsule,delayed unknown) release(DR/EC) (unknown) (no (unknown) (unknown) oxycodone 10 mg (units (unknown) date) tablet,oral unknown) only,ext.rel.12 hr (unknown) (no (unknown) (unknown) sildenafil 100 mg (units (unknown) date) Tablet unknown) (unknown) (no (unknown) (unknown) testosterone (units (u nknown) date) cypionate unknown) [Depo-Testosterone] 200 MG/1 ML oil (unknown) (no (unknown) (unknown) 01/26/22 (units (unkno wn) date) unknown) (unknown) (no (unknown) (unknown) Medication (units (unk nown) date) Instructions Recorded unknown) Confirmed (unknown) (no (unknown) (unknown) any also has skin (units (unknown) date) irritation and unknown) developing cellulitis in the left forearm with (unknown) (no (unknown) (unknown) dressings that (units (unknown) date) appear to been in unknown) place for a number of days and unchanged and (unknown) (no (unknown) (unknown) into they large (units (unknown) date) hematoma on the unknown) medial aspect of the left knee. He does not (unknown) (no (unknown) (unknown) mg nightly and as (units (unknown) date) needed nitroglycerin. unknown) (unknown) (no (unknown) (unknown) says that a (units (un known) date) fiberglass long-leg unknown) posterior splint was applied on arrival in the (unknown) (no (unknown) (unknown) significant (units (un known) date) irritation superiorly unknown) and inferiorly. Was discharged with pain (unknown) (no (unknown) (unknown) (Depo-Testosterone) (unit s (unknown) date) unknown) (unknown) (no (unknown) (unknown) (GLUCOPHAGE) (units (u nknown) date) unknown) (unknown) (no (unknown) (unknown) 01/26/22 19:40 (units (unknown) date) unknown) (unknown) (no (unknown) (unknown) 01/26/22 19:45 (units (unknown) date) unknown) (unknown) (no (unknown) (unknown) 01/26/22 19:52 (units (unknown) date) unknown) (unknown) (no (unknown) (unknown) 01/26/22 20:07 (units (unknown) date) unknown) (unknown) (no (unknown) (unknown) 01/26/22 20:09 (units (unknown) date) unknown) (unknown) (no (unknown) (unknown) 01/26/22 20:15 (units (unknown) date) unknown) (unknown) (no (unknown) (unknown) 01/26/22 20:21 (units (unknown) date) unknown) (unknown) (no (unknown) (unknown) 01/26/22 20:47 (units (unknown) date) unknown) (unknown) (no (unknown) (unknown) 01/26/22 21:56 (units (unknown) date) unknown) (unknown) (no (unknown) (unknown) 15. On the 18 he (uni ts (unknown) date) had a CT scan that unknown) showed hematoma but no fractures his (unknown) (no (unknown) (unknown) 19:44 01/26/22 (units (unknown) date) unknown) (unknown) (no (unknown) (unknown) 20:34 01/26/22 (units (unknown) date) unknown) (unknown) (no (unknown) (unknown) 20:41 (units (unkno wn) date) unknown) (unknown) (no (unknown) (unknown) 21:00 01/26/22 (units (unknown) date) unknown) (unknown) (no (unknown) (unknown) 21:25 (units (unkno wn) date) unknown) (unknown) (no (unknown) (unknown) 21:25 01/26/22 (units (unknown) date) unknown) (unknown) (no (unknown) (unknown) 21:30 (units (unkno wn) date) unknown) (unknown) (no (unknown) (unknown) 21:30 01/26/22 (units (unknown) date) unknown) (unknown) (no (unknown) (unknown) 21:45 (units (unkno wn) date) unknown) (unknown) (no (unknown) (unknown) 21:45 01/26/22 (units (unknown) date) unknown) (unknown) (no (unknown) (unknown) 22:00 01/26/22 (units (unknown) date) unknown) (unknown) (no (unknown) (unknown) 22:15 (units (unkno wn) date) unknown) (unknown) (no (unknown) (unknown) 22:15 01/26/22 (units (unknown) date) unknown) (unknown) (no (unknown) (unknown) 22:30 (units (unkno wn) date) unknown) (unknown) (no (unknown) (unknown) 22:30 01/26/22 (units (unknown) date) unknown) (unknown) (no (unknown) (unknown) 22:35 01/26/22 (units (unknown) date) unknown) (unknown) (no (unknown) (unknown) 22:36 01/26/22 (units (unknown) date) unknown) (unknown) (no (unknown) (unknown) 22:45 (units (unkno wn) date) unknown) (unknown) (no (unknown) (unknown) 22:45 01/26/22 (units (unknown) date) unknown) (unknown) (no (unknown) (unknown) 22:50 (units (unkno wn) date) unknown) (unknown) (no (unknown) (unknown) 22:51 01/26/22 (units (unknown) date) unknown) (unknown) (no (unknown) (unknown) 23:00 01/26/22 (units (unknown) date) unknown) (unknown) (no (unknown) (unknown) 23:01 (units (unkno wn) date) unknown) (unknown) (no (unknown) (unknown) 23:01 01/26/22 (units (unknown) date) unknown) (unknown) (no (unknown) (unknown) 23:04 01/26/22 (units (unknown) date) unknown) (unknown) (no (unknown) (unknown) 23:07 (units (unkno wn) date) unknown) (unknown) (no (unknown) (unknown) 23:15 (units (unkno wn) date) unknown) (unknown) (no (unknown) (unknown) 23:15 01/26/22 (units (unknown) date) unknown) (unknown) (no (unknown) (unknown) 23:30 01/26/22 (units (unknown) date) unknown) (unknown) (no (unknown) (unknown) 23:45 (units (unkno wn) date) unknown) (unknown) (no (unknown) (unknown) [id number] (units (unkno wn) date) unknown) (unknown) (no (unknown) (unknown) 76-year-old (units (un known) date) gentleman with a unknown) history of coronary artery disease post CABG x4, (unknown) (no (unknown) (unknown) ALT (<50) IU/L (units (unknown) date) unknown) (unknown) (no (unknown) (unknown) ALT 27 (<50) IU/L (units (unknown) date) unknown) (unknown) (no (unknown) (unknown) AST (17-59) IU/L (units (unknown) date) unknown) (unknown) (no (unknown) (unknown) AST 28 (17-59) IU/L (unit s (unknown) date) unknown) (unknown) (no (unknown) (unknown) Abdomen: Soft, mild (unit s (unknown) date) distention but unknown) nontender, good bowel tones, no flank pain (unknown) (no (unknown) (unknown) Age/Sex: 76 / M (units (unknown) date) unknown) (unknown) (no (unknown) (unknown) Albumin (3.5-5.0) (units (unknown) date) g/dL unknown) (unknown) (no (unknown) (unknown) Albumin 3.6 (units (un known) date) (3.5-5.0) g/dL unknown) (unknown) (no (unknown) (unknown) Albumin/Globulin (units (unknown) date) Ratio (1.0-2.8) unknown) (unknown) (no (unknown) (unknown) Albumin/Globulin (units (unknown) date) Ratio 1.0 (1.0-2.8) unknown) (unknown) (no (unknown) (unknown) Alkaline Phosphatase (uni ts (unknown) date) (38-126) U/L unknown) (unknown) (no (unknown) (unknown) Alkaline Phosphatase (uni ts (unknown) date) 170 H (38-126) U/L unknown) (unknown) (no (unknown) (unknown) Allergy/AdvReac Type (uni ts (unknown) date) Severity Reaction unknown) Status Date / Time (unknown) (no (unknown) (unknown) Anisocytosis (units (u nknown) date) unknown) (unknown) (no (unknown) (unknown) Anisocytosis 3+ H (units (unknown) date) unknown) (unknown) (no (unknown) (unknown) Anti-Inflamma (units ( unknown) date) disease unknown) (unknown) (no (unknown) (unknown) Antibody Screen (units (unknown) date) unknown) (unknown) (no (unknown) (unknown) Antibody Screen (units (unknown) date) Negative unknown) (unknown) (no (unknown) (unknown) Atrial fibrillation (unit s (unknown) date) unknown) (unknown) (no (unknown) (unknown) January 06. 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 (unknown) (no (unknown) (unknown) BUN (9-20) mg/dL (units (unknown) date) unknown) (unknown) (no (unknown) (unknown) BUN 61 H (9-20) (units (unknown) date) mg/dL unknown) (unknown) (no (unknown) (unknown) BUN/Creatinine Ratio (uni ts (unknown) date) (6-22) unknown) (unknown) (no (unknown) (unknown) BUN/Creatinine Ratio (uni ts (unknown) date) 19.2 (6-22) unknown) (unknown) (no (unknown) (unknown) Baso # (Auto) (units ( unknown) date) (0-100) /uL unknown) (unknown) (no (unknown) (unknown) Baso # (Auto) 100 (units (unknown) date) (0-100) /uL unknown) (unknown) (no (unknown) (unknown) Baso % (Auto) (0-2) (unit s (unknown) date) % unknown) (unknown) (no (unknown) (unknown) Baso % (Auto) 1.0 (units (unknown) date) (0-2) % unknown) (unknown) (no (unknown) (unknown) Bedside Urine (units ( unknown) date) Bilirubin - Negative unknown) (unknown) (no (unknown) (unknown) Bedside Urine (units ( unknown) date) Glucose 500 mg/dl unknown) (unknown) (no (unknown) (unknown) Bedside Urine Ketone (uni ts (unknown) date) - Negative unknown) (unknown) (no (unknown) (unknown) Bedside Urine (units ( unknown) date) Leukocytes +/- 15 unknown) (unknown) (no (unknown) (unknown) Bedside Urine (units ( unknown) date) Nitrite - Negative unknown) (unknown) (no (unknown) (unknown) Bedside Urine Occult (uni ts (unknown) date) Blood +/- unknown) (unknown) (no (unknown) (unknown) Bedside Urine (units ( unknown) date) Protein - Negative unknown) (unknown) (no (unknown) (unknown) Bedside Urine (units ( unknown) date) Urobilinogen - unknown) Negative (unknown) (no (unknown) (unknown) Bedside Urine pH 5.5 (uni ts (unknown) date) unknown) (unknown) (no (unknown) (unknown) Blood Culture Stat (units (unknown) date) unknown) (unknown) (no (unknown) (unknown) Blood Pressure (units (unknown) date) 102/52 L 98/52 L unknown) (unknown) (no (unknown) (unknown) Blood Pressure 78/54 (uni ts (unknown) date) L 01/26/22 19:44 unknown) (unknown) (no (unknown) (unknown) Blood Pressure 95/53 (uni ts (unknown) date) L unknown) (unknown) (no (unknown) (unknown) Blood Pressure 95/54 (uni ts (unknown) date) L unknown) (unknown) (no (unknown) (unknown) Blood Pressure 95/55 (uni ts (unknown) date) L unknown) (unknown) (no (unknown) (unknown) Blood Pressure (units (unknown) date) 102/53 L unknown) (unknown) (no (unknown) (unknown) Blood Pressure 78/54 (uni ts (unknown) date) L 102/52 L unknown) (unknown) (no (unknown) (unknown) Blood Pressure 90/50 (uni ts (unknown) date) L 92/51 L unknown) (unknown) (no (unknown) (unknown) Blood Pressure 94/46 (uni ts (unknown) date) L 95/55 L 98/52 L unknown) (unknown) (no (unknown) (unknown) Blood Pressure 96/53 (uni ts (unknown) date) L unknown) (unknown) (no (unknown) (unknown) Blood Pressure 97/52 (uni ts (unknown) date) L 101/54 L unknown) (unknown) (no (unknown) (unknown) Blood Pressure 98/52 (uni ts (unknown) date) L unknown) (unknown) (no (unknown) (unknown) Blood Pressure 98/52 (uni ts (unknown) date) L 95/54 L 95/50 L unknown) (unknown) (no (unknown) (unknown) Blood Pressure 98/52 (uni ts (unknown) date) L 97/52 L 102/53 L unknown) (unknown) (no (unknown) (unknown) Blood Type (units (unk nown) date) unknown) (unknown) (no (unknown) (unknown) Blood Type A (units (u nknown) date) Negative unknown) (unknown) (no (unknown) (unknown) COVID19 -Nasal (units (unknown) date) RAPID/Pre-Proc Stat unknown) (unknown) (no (unknown) (unknown) CT LE LT wo con Stat (uni ts (unknown) date) unknown) (unknown) (no (unknown) (unknown) CT head/brain wo con (uni ts (unknown) date) Stat unknown) (unknown) (no (unknown) (unknown) Calcium (8.4-10.2) (units (unknown) date) mg/dL unknown) (unknown) (no (unknown) (unknown) Calcium 8.4 (units (un known) date) (8.4-10.2) mg/dL unknown) (unknown) (no (unknown) (unknown) Carbon Dioxide (units (unknown) date) (22-32) mmol/L unknown) (unknown) (no (unknown) (unknown) Carbon Dioxide 27 (units (unknown) date) (22-32) mmol/L unknown) (unknown) (no (unknown) (unknown) Cardiac: Regular (units (unknown) date) rate and rhythm no unknown) murmurs no bruits (unknown) (no (unknown) (unknown) Chief complaint: (units (unknown) date) Skin/Abscess/Foreign unknown) Body (unknown) (no (unknown) (unknown) Chloride (98-107) (units (unknown) date) mmol/L unknown) (unknown) (no (unknown) (unknown) Chloride 97 L (units ( unknown) date) (98-107) mmol/L unknown) (unknown) (no (unknown) (unknown) Complete Blood Count (uni ts (unknown) date) AUTO DIFF Stat unknown) (unknown) (no (unknown) (unknown) Comprehensive (units ( unknown) date) Metabolic Panel Stat unknown) (unknown) (no (unknown) (unknown) Coronary artery (units (unknown) date) disease unknown) (unknown) (no (unknown) (unknown) Course (units (unkno wn) date) unknown) (unknown) (no (unknown) (unknown) Creatinine (units (unk nown) date) (0.66-1.25) mg/dL unknown) (unknown) (no (unknown) (unknown) Creatinine 3.18 H (units (unknown) date) (0.66-1.25) mg/dL unknown) (unknown) (no (unknown) (unknown) Crossmatch (units (unk nown) date) unknown) (unknown) (no (unknown) (unknown) Crossmatch See (units (unknown) date) Detail unknown) (unknown) (no (unknown) (unknown) : 1945 (units (unknown) date) Acct:[id number] unknown) (unknown) (no (unknown) (unknown) Departure (units (unkn own) date) unknown) (unknown) (no (unknown) (unknown) Diabetes (units (unkno wn) date) unknown) (unknown) (no (unknown) (unknown) Discharge Plan (units (unknown) date) unknown) (unknown) (no (unknown) (unknown) Discontinued (units (u nknown) date) Medications unknown) (unknown) (no (unknown) (unknown) Dyslipidemia (units (u nknown) date) unknown) (unknown) (no (unknown) (unknown) ECG Data (units (unkno wn) date) unknown) (unknown) (no (unknown) (unknown) EKG-12 Lead Stat (units (unknown) date) unknown) (unknown) (no (unknown) (unknown) ER Physician: (units ( unknown) date) Ashley Glynn MD unknown) (unknown) (no (unknown) (unknown) Eos # (Auto) ([phone]) (uni ts (unknown) date) /uL unknown) (unknown) (no (unknown) (unknown) Eos # (Auto) 200 (units (unknown) date) (0-450) /uL unknown) (unknown) (no (unknown) (unknown) Eos % (Auto) (2-4) % (uni ts (unknown) date) unknown) (unknown) (no (unknown) (unknown) Eos % (Auto) 2.8 (units (unknown) date) (2-4) % unknown) (unknown) (no (unknown) (unknown) Esterase (units (unkno wn) date) unknown) (unknown) (no (unknown) (unknown) Estimated GFR (>60) (unit s (unknown) date) mL/min unknown) (unknown) (no (unknown) (unknown) Estimated GFR 19 L (units (unknown) date) (>60) mL/min unknown) (unknown) (no (unknown) (unknown) Exam (units (unkno wn) date) unknown) (unknown) (no (unknown) (unknown) Extremities: Left (units (unknown) date) leg is described unknown) under the skin exam. Reasonable capillary (unknown) (no (unknown) (unknown) Full and symmetrical (uni ts (unknown) date) air movement unknown) (unknown) (no (unknown) (unknown) General (units (unkno wn) date) unknown) (unknown) (no (unknown) (unknown) General: Chronically (unit s (unknown) date) ill-appearing, pale, unknown) weak but in no acute distress. He is (unknown) (no (unknown) (unknown) GenericComposite[Plt (uni ts (unknown) date) Count (150-400) unknown) X10^3/uL ] (unknown) (no (unknown) (unknown) GenericComposite[Plt (uni ts (unknown) date) Count 206 (150-400) unknown) X10^3/uL ] (unknown) (no (unknown) (unknown) GenericComposite[RBC (uni ts (unknown) date) (4.5-5.9) X10^6/uL ] unknown) (unknown) (no (unknown) (unknown) GenericComposite[RBC (uni ts (unknown) date) 2.75 L (4.5-5.9) unknown) X10^6/uL ] (unknown) (no (unknown) (unknown) GenericComposite[WBC (uni ts (unknown) date) (4.5-11.0) X10^3/uL ] unknown) (unknown) (no (unknown) (unknown) GenericComposite[WBC (uni ts (unknown) date) 7.1 (4.5-11.0) unknown) X10^3/uL ] (unknown) (no (unknown) (unknown) Globulin (1.7-4.1) (units (unknown) date) g/dL unknown) (unknown) (no (unknown) (unknown) Globulin 3.5 (units (u nknown) date) (1.7-4.1) g/dL unknown) (unknown) (no (unknown) (unknown) Glucose (80-110) (units (unknown) date) mg/dL unknown) (unknown) (no (unknown) (unknown) Glucose 130 H (units ( unknown) date) (80-110) mg/dL unknown) (unknown) (no (unknown) (unknown) HEENT: Moist mucous (unit s (unknown) date) membranes, normal unknown) sclera with reactive pupils, pale mucous (unknown) (no (unknown) (unknown) HPI - General Adult (unit s (unknown) date) unknown) (unknown) (no (unknown) (unknown) HPI narrative: (units (unknown) date) unknown) (unknown) (no (unknown) (unknown) Have spoken with his (uni ts (unknown) date) son and medical unknown) records are now available for review. (unknown) (no (unknown) (unknown) Hct (41-53) % (units ( unknown) date) unknown) (unknown) (no (unknown) (unknown) Hct 20.8 L* (41-53) (unit s (unknown) date) % unknown) (unknown) (no (unknown) (unknown) Hgb (13.5-17.5) g/dL (uni ts (unknown) date) unknown) (unknown) (no (unknown) (unknown) Hgb 6.7 L* (units (unk nown) date) (13.5-17.5) g/dL unknown) (unknown) (no (unknown) (unknown) His son noted him to (uni ts (unknown) date) be increasingly weak unknown) this morning and he comes in (unknown) (no (unknown) (unknown) History of Present (units (unknown) date) Illness unknown) (unknown) (no (unknown) (unknown) Hx of (units (unkno wn) date) cholecystectomy unknown) (unknown) (no (unknown) (unknown) Hypertension (units (u nknown) date) unknown) (unknown) (no (unknown) (unknown) IV NOW ONE (units (unk nown) date) unknown) (unknown) (no (unknown) (unknown) Initial Vital Signs (unit s (unknown) date) unknown) (unknown) (no (unknown) (unknown) Initial Vital Signs: (uni ts (unknown) date) unknown) (unknown) (no (unknown) (unknown) Interpretation: (units (unknown) date) unknown) (unknown) (no (unknown) (unknown) It appears that he (units (unknown) date) was seen at [facility] unknown) General on January 23 and with a (unknown) (no (unknown) (unknown) Lab Data (units (unkno wn) date) unknown) (unknown) (no (unknown) (unknown) Labs: (units (unkno wn) date) unknown) (unknown) (no (unknown) (unknown) Lactate (0.7-2.1) (units (unknown) date) mmol/L unknown) (unknown) (no (unknown) (unknown) Lactate 1.3 (units (un known) date) (0.7-2.1) mmol/L unknown) (unknown) (no (unknown) (unknown) Lactate (Lactic (units (unknown) date) Acid) Stat unknown) (unknown) (no (unknown) (unknown) Lipase (23-300) U/L (unit s (unknown) date) unknown) (unknown) (no (unknown) (unknown) Lipase 135 (23-300) (unit s (unknown) date) U/L unknown) (unknown) (no (unknown) (unknown) Lipase Stat (units (un known) date) unknown) (unknown) (no (unknown) (unknown) Lymph # (Auto) (units (unknown) date) (0162-5260) /uL unknown) (unknown) (no (unknown) (unknown) Lymph # (Auto) 800 L (uni ts (unknown) date) (0923-7295) /uL unknown) (unknown) (no (unknown) (unknown) Lymph % (Auto) (units (unknown) date) (25-40) % unknown) (unknown) (no (unknown) (unknown) Lymph % (Auto) 11.4 (unit s (unknown) date) L (25-40) % unknown) (unknown) (no (unknown) (unknown) MCH (26-34) PG (units (unknown) date) unknown) (unknown) (no (unknown) (unknown) MCH 24.6 L (26-34) (units (unknown) date) PG unknown) (unknown) (no (unknown) (unknown) MCHC (30-36) % (units (unknown) date) unknown) (unknown) (no (unknown) (unknown) MCHC 32.4 (30-36) % (unit s (unknown) date) unknown) (unknown) (no (unknown) (unknown) MCV (80-100) fL (units (unknown) date) unknown) (unknown) (no (unknown) (unknown) MCV 75.7 L (80-100) (unit s (unknown) date) fL unknown) (unknown) (no (unknown) (unknown) MDM Narrative (units ( unknown) date) unknown) (unknown) (no (unknown) (unknown) Medical Decision (units (unknown) date) Making unknown) (unknown) (no (unknown) (unknown) Medical History (units (unknown) date) (Updated 01/26/22 @ unknown) 20:14 by Ashley Glynn MD) (unknown) (no (unknown) (unknown) Medical decision (units (unknown) date) making narrative: unknown) (unknown) (no (unknown) (unknown) Metformin (units (unkn own) date) Hydrochloride 1,275 unknown) mg PO BID ##0 07/08/12 (unknown) (no (unknown) (unknown) Miscellaneous,Doctor (uni ts (unknown) date) , [Primary Care unknown) Provider] - (unknown) (no (unknown) (unknown) [place] # (Auto) (units ( unknown) date) (0-900) /uL unknown) (unknown) (no (unknown) (unknown) [place] # (Auto) 700 (units (unknown) date) (0-900) /uL unknown) (unknown) (no (unknown) (unknown) [place] % (Auto) (3-14) (uni ts (unknown) date) % unknown) (unknown) (no (unknown) (unknown) [place] % (Auto) 9.8 (units (unknown) date) (3-14) % unknown) (unknown) (no (unknown) (unknown) NSAIDS (units (unkno wn) date) (Non-Steroidal unknown) AdvReac Severe kidney Verified 11/14/19 20:28 (unknown) (no (unknown) (unknown) Neck: No JVD, supple (uni ts (unknown) date) unknown) (unknown) (no (unknown) (unknown) Neurologic: Globally (uni ts (unknown) date) weak but able to move unknown) all extremities (unknown) (no (unknown) (unknown) Neut # (Auto) (units ( unknown) date) (1095-2517) /uL unknown) (unknown) (no (unknown) (unknown) Neut # (Auto) 5400 (units (unknown) date) (3898-7467) /uL unknown) (unknown) (no (unknown) (unknown) Neut % (Auto) (units ( unknown) date) (50-75) % unknown) (unknown) (no (unknown) (unknown) Neut % (Auto) 75.0 (units (unknown) date) (50-75) % unknown) (unknown) (no (unknown) (unknown) No Action (units (unkn own) date) unknown) (unknown) (no (unknown) (unknown) ONE (units (unkno wn) date) unknown) (unknown) (no (unknown) (unknown) Ordered: (units (unkno wn) date) unknown) (unknown) (no (unknown) (unknown) Orders (units (unkno wn) date) unknown) (unknown) (no (unknown) (unknown) Oxygen Delivery (units (unknown) date) Method unknown) (unknown) (no (unknown) (unknown) Oxygen Delivery (units (unknown) date) Method 01/26/22 19:44 unknown) (unknown) (no (unknown) (unknown) Oxygen Delivery (units (unknown) date) Method unknown) (unknown) (no (unknown) (unknown) Oxygen Delivery (units (unknown) date) Method Room Air unknown) (unknown) (no (unknown) (unknown) Patient History (units (unknown) date) unknown) (unknown) (no (unknown) (unknown) Patient was (units (un known) date) discharged [facility] unknown) [facility] for acute congestive heart failure on (unknown) (no (unknown) (unknown) Patient: (units (unkno wn) date) Osmel Baxter MR#: unknown) M000 (unknown) (no (unknown) (unknown) Physical exam (units (u nknown) date) describes him as unknown) alert and oriented x3 no acute distress. ER note (unknown) (no (unknown) (unknown) Piperacillin (units (u nknown) date) Sod/Tazobactam (Sod unknown) 4.5 gm/ Sodium Chloride) 100 mls @ 200 mls/hr (unknown) (no (unknown) (unknown) Point of care (units ( unknown) date) testing: unknown) (unknown) (no (unknown) (unknown) Potassium (3.4-5.1) (unit s (unknown) date) mmol/L unknown) (unknown) (no (unknown) (unknown) Potassium 4.3 (units ( unknown) date) (3.4-5.1) mmol/L unknown) (unknown) (no (unknown) (unknown) Prescriptions: (units (unknown) date) unknown) (unknown) (no (unknown) (unknown) Procalcitonin (<0.5) (uni ts (unknown) date) ng/mL unknown) (unknown) (no (unknown) (unknown) Procalcitonin 0.50 (units (unknown) date) (<0.5) ng/mL unknown) (unknown) (no (unknown) (unknown) Procalcitonin Stat (units (unknown) date) unknown) (unknown) (no (unknown) (unknown) Psych: Will respond (unit s (unknown) date) to yes or no unknown) questions but otherwise altered. (unknown) (no (unknown) (unknown) Pulse Oximetry (units (unknown) date) unknown) (unknown) (no (unknown) (unknown) Pulse Oximetry (units (unknown) date) unknown) (unknown) (no (unknown) (unknown) Pulse Oximetry 98 (units (unknown) date) unknown) (unknown) (no (unknown) (unknown) Pulse Oximetry 100 (units (unknown) date) unknown) (unknown) (no (unknown) (unknown) Pulse Oximetry 89 L (unit s (unknown) date) 98 unknown) (unknown) (no (unknown) (unknown) Pulse Oximetry 97 (units (unknown) date) unknown) (unknown) (no (unknown) (unknown) Pulse Oximetry 97 (units (unknown) date) 01/26/22 19:44 unknown) (unknown) (no (unknown) (unknown) Pulse Oximetry 97 99 (uni ts (unknown) date) unknown) (unknown) (no (unknown) (unknown) Pulse Oximetry 100 (units (unknown) date) 100 unknown) (unknown) (no (unknown) (unknown) Pulse Oximetry 100 (units (unknown) date) 99 unknown) (unknown) (no (unknown) (unknown) Pulse Oximetry 97 98 (uni ts (unknown) date) unknown) (unknown) (no (unknown) (unknown) Pulse Oximetry 99 (units (unknown) date) unknown) (unknown) (no (unknown) (unknown) Pulse Rate (units (unk nown) date) unknown) (unknown) (no (unknown) (unknown) Pulse Rate 61 62 (units (unknown) date) unknown) (unknown) (no (unknown) (unknown) Pulse Rate 63 (units ( unknown) date) unknown) (unknown) (no (unknown) (unknown) Pulse Rate 64 64 (units (unknown) date) unknown) (unknown) (no (unknown) (unknown) Pulse Rate 65 (units ( unknown) date) 01/26/22 19:44 unknown) (unknown) (no (unknown) (unknown) Pulse Rate 62 62 (units (unknown) date) unknown) (unknown) (no (unknown) (unknown) Pulse Rate 63 63 62 (unit s (unknown) date) unknown) (unknown) (no (unknown) (unknown) Pulse Rate 64 (units ( unknown) date) unknown) (unknown) (no (unknown) (unknown) Pulse Rate 64 63 (units (unknown) date) unknown) (unknown) (no (unknown) (unknown) Pulse Rate 64 64 (units (unknown) date) unknown) (unknown) (no (unknown) (unknown) Pulse Rate 64 62 62 (unit s (unknown) date) unknown) (unknown) (no (unknown) (unknown) Pulse Rate 64 64 65 (unit s (unknown) date) unknown) (unknown) (no (unknown) (unknown) Pulse Rate 65 65 64 (unit s (unknown) date) unknown) (unknown) (no (unknown) (unknown) RBC Morphology (units (unknown) date) unknown) (unknown) (no (unknown) (unknown) RBC Morphology Not (units (unknown) date) Reportable unknown) (unknown) (no (unknown) (unknown) RDW (11.6-14.8) % (units (unknown) date) unknown) (unknown) (no (unknown) (unknown) RDW 24.5 H (units (unk nown) date) (11.6-14.8) % unknown) (unknown) (no (unknown) (unknown) ROS Unobtainable: (units (unknown) date) Unobtainable due to unknown) mental condition (unknown) (no (unknown) (unknown) RT Consult Eval and (unit s (unknown) date) Treat NOW unknown) (unknown) (no (unknown) (unknown) Referrals: (units (unk nown) date) unknown) (unknown) (no (unknown) (unknown) Related Data (units (u nknown) date) unknown) (unknown) (no (unknown) (unknown) Respiratory Rate (units (unknown) date) unknown) (unknown) (no (unknown) (unknown) Respiratory Rate 15 (unit s (unknown) date) unknown) (unknown) (no (unknown) (unknown) Respiratory Rate 20 (unit s (unknown) date) 21 unknown) (unknown) (no (unknown) (unknown) Respiratory Rate 20 (unit s (unknown) date) 26 H unknown) (unknown) (no (unknown) (unknown) Respiratory Rate 21 (unit s (unknown) date) unknown) (unknown) (no (unknown) (unknown) Respiratory Rate 21 (unit s (unknown) date) 01/26/22 19:44 unknown) (unknown) (no (unknown) (unknown) Respiratory Rate 14 (unit s (unknown) date) 13 unknown) (unknown) (no (unknown) (unknown) Respiratory Rate 17 (unit s (unknown) date) unknown) (unknown) (no (unknown) (unknown) Respiratory Rate 18 (unit s (unknown) date) 14 21 unknown) (unknown) (no (unknown) (unknown) Respiratory Rate 18 (unit s (unknown) date) 15 18 unknown) (unknown) (no (unknown) (unknown) Respiratory Rate 19 (unit s (unknown) date) 16 unknown) (unknown) (no (unknown) (unknown) Respiratory Rate 20 (unit s (unknown) date) 24 unknown) (unknown) (no (unknown) (unknown) Respiratory Rate 20 (unit s (unknown) date) 12 18 unknown) (unknown) (no (unknown) (unknown) Respiratory Rate 21 (unit s (unknown) date) 17 17 unknown) (unknown) (no (unknown) (unknown) Respiratory: Lungs (units (unknown) date) are clear to unknown) auscultation, no wheezing no rales no rhonchi. (unknown) (no (unknown) (unknown) Result diagrams: (units (unknown) date) unknown) (unknown) (no (unknown) (unknown) Review of Systems (units (unknown) date) unknown) (unknown) (no (unknown) (unknown) S/P CABG x 4 (units (u nknown) date) unknown) (unknown) (no (unknown) (unknown) SARS-CoV-2 (PCR) (units (unknown) date) (Negative) unknown) (unknown) (no (unknown) (unknown) SARS-CoV-2 (PCR) (units (unknown) date) Negative (Negative) unknown) (unknown) (no (unknown) (unknown) Signed By: (units (unk nown) date) unknown) (unknown) (no (unknown) (unknown) Sinus rhythm, left (units (unknown) date) bundle-branch block, unknown) no acute ischemic changes, rate of 67 (unknown) (no (unknown) (unknown) Skin: Pale, Warm and (uni ts (unknown) date) dry, multiple bruises unknown) some look like there from recent (unknown) (no (unknown) (unknown) Sleep apnea (units (un known) date) unknown) (unknown) (no (unknown) (unknown) Smoking Status: (units (unknown) date) Former smoker unknown) (unknown) (no (unknown) (unknown) Smoking Status: (units (unknown) date) Former smoker unknown) (unknown) (no (unknown) (unknown) Social History (units (unknown) date) (Updated 09/25/18 @ unknown) 11:17 by Telma Dickey DO) (unknown) (no (unknown) (unknown) Sodium (137-145) (units (unknown) date) mmol/L unknown) (unknown) (no (unknown) (unknown) Sodium 132 L (units (u nknown) date) (137-145) mmol/L unknown) (unknown) (no (unknown) (unknown) Sodium Chloride (units (unknown) date) (Normal Saline 0.9%) unknown) 1,000 mls @ 1,000 mls/hr IV BOLUS ONE (unknown) (no (unknown) (unknown) Stated complaint: (units (unknown) date) Dementia unknown) (unknown) (no (unknown) (unknown) Substance Use Type: (unit s (unknown) date) does not use unknown) (unknown) (no (unknown) (unknown) Surgical History (units (unknown) date) (Reviewed 11/15/19 @ unknown) 04:28 by MEKA Garcia) (unknown) (no (unknown) (unknown) Temperature (units (un known) date) unknown) (unknown) (no (unknown) (unknown) Temperature (units (un known) date) unknown) (unknown) (no (unknown) (unknown) Temperature 96.3 F L (uni ts (unknown) date) 96.8 F L unknown) (unknown) (no (unknown) (unknown) Temperature 97.7 F (units (unknown) date) 01/26/22 19:44 unknown) (unknown) (no (unknown) (unknown) Temperature 96.7 F L (uni ts (unknown) date) 96.5 F L unknown) (unknown) (no (unknown) (unknown) Temperature 97.7 F (units (unknown) date) 96.8 F L unknown) (unknown) (no (unknown) (unknown) Temperature 98.6 F (units (unknown) date) 96.8 F L 96.7 F L unknown) (unknown) (no (unknown) (unknown) Time Seen by (units (u nknown) date) Provider: 01/26/22 unknown) 19:49 (unknown) (no (unknown) (unknown) Total Bilirubin (units (unknown) date) (0.2-1.3) mg/dL unknown) (unknown) (no (unknown) (unknown) Total Bilirubin 1.5 (unit s (unknown) date) H (0.2-1.3) mg/dL unknown) (unknown) (no (unknown) (unknown) Total Protein (units ( unknown) date) (6.3-8.2) g/dL unknown) (unknown) (no (unknown) (unknown) Total Protein 7.1 (units (unknown) date) (6.3-8.2) g/dL unknown) (unknown) (no (unknown) (unknown) Type and Screen Stat (uni ts (unknown) date) unknown) (unknown) (no (unknown) (unknown) U-100 Insulin) (units (unknown) date) unknown) (unknown) (no (unknown) (unknown) Urine Microscopic (units (unknown) date) Stat unknown) (unknown) (no (unknown) (unknown) Urine Specific (units (unknown) date) [place] 1.02 unknown) (unknown) (no (unknown) (unknown) VITAMIN D (Vitamin (units (unknown) date) D3) ##0 07/08/12 unknown) (unknown) (no (unknown) (unknown) Vancomycin HCl (units (unknown) date) (Vancomycin Per unknown) Pharmacy) [place] [facility] [place] ([place]) (no (unknown) (unknown) Vancomycin (units (unk nown) date) HCl/Dextrose unknown) (Vancomycin) 1,500 mg in 300 mls @ 200 mls/hr IV NOW (unknown) (no (unknown) (unknown) Vital Signs (units (un known) date) unknown) (unknown) (no (unknown) (unknown) Vital signs: (units (u nknown) date) unknown) (unknown) (no (unknown) (unknown) XR chest 1V Stat (units (unknown) date) unknown) (unknown) (no (unknown) (unknown) [Embedded Image Not (unit s (unknown) date) Available] unknown) (unknown) (no (unknown) (unknown) additional records (units (unknown) date) are present. He is unknown) weak, confused, cooperative he has an (unknown) (no (unknown) (unknown) alcohol intake (units (unknown) date) frequency: unknown) holidays/special occasions only (unknown) (no (unknown) (unknown) allopurinol 100 mg (units (unknown) date) tablet 100 mg PO BID unknown) 11/15/19 11/15/19 (unknown) (no (unknown) (unknown) and concerned that (units (unknown) date) ?times he is not unknown) completely aware?. No additional history is (unknown) (no (unknown) (unknown) and developing (units (unknown) date) cellulitis, multiple unknown) bruises all over. He is pale but not (unknown) (no (unknown) (unknown) anticoagulation was (unit s (unknown) date) discontinued unknown) reportedly no fevers chills new new injury or (unknown) (no (unknown) (unknown) aspirin 81 mg (units ( unknown) date) chewable tablet 81 mg unknown) PO QDAY ##0 07/08/12 11/15/19 (unknown) (no (unknown) (unknown) atorvastatin 20 mg (units (unknown) date) tablet 20 mg PO DAILY unknown) 11/15/19 11/15/19 (unknown) (no (unknown) (unknown) available. There is (unit s (unknown) date) a med list that was unknown) printed out from the end of December it (unknown) (no (unknown) (unknown) carbidopa 25 (units (u nknown) date) mg-levodopa 100 mg 1 unknown) tab PO BEDTIME RLS 11/15/19 11/15/19 (unknown) (no (unknown) (unknown) carvedilol 12.5 mg (units (unknown) date) tablet 12.5 mg PO BID unknown) 11/15/19 11/15/19 (unknown) (no (unknown) (unknown) complaining of (units (unknown) date) headache. He will unknown) open his eyes to command but not oriented to (unknown) (no (unknown) (unknown) control instructions (uni ts (unknown) date) to remove the splint unknown) in 2-3 days. (unknown) (no (unknown) (unknown) cyclobenzaprine 10 (units (unknown) date) mg tablet 10 mg PO unknown) TID 11/15/19 11/15/19 (unknown) (no (unknown) (unknown) details: x 9 (uni ts (unknown) date) months unknown) (unknown) (no (unknown) (unknown) developing mild (units (unknown) date) erythema. Left knee unknown) with a very large bulla/hematoma on the (unknown) (no (unknown) (unknown) echocardiogram and (units (unknown) date) cardioversion for unknown) atrial fibrillation. Was discharged home (unknown) (no (unknown) (unknown) emergency department (uni ts (unknown) date) he has a piece of unknown) fiberglass casting material extending (unknown) (no (unknown) (unknown) excoriation on the (units (unknown) date) medial aspect of his unknown) foot from the splint as well. (unknown) (no (unknown) (unknown) failure and (units (un known) date) Parkinson's his son unknown) called with concerns for his overall well-being (unknown) (no (unknown) (unknown) fall. He was seen (units (unknown) date) the following day unknown) with complaints of increasing pain. (unknown) (no (unknown) (unknown) ferrous gluconate 324 (uni ts (unknown) date) mg, glargine insulin, unknown) metformin, omeprazole, Mirapex 0.125 (unknown) (no (unknown) (unknown) ferrous sulfate (units (unknown) date) Allergy Muscle Pain unknown) Verified 11/14/19 20:28 (unknown) (no (unknown) (unknown) from his knee with (units (unknown) date) minimal range of unknown) motion at the knee. He also has a dressing (unknown) (no (unknown) (unknown) from the medial (units (unknown) date) malleolus to the unknown) distal knee, not crossing any joint and causing (unknown) (no (unknown) (unknown) fully assess. It (units (unknown) date) clearly is more than unknown) a couple of days old appears exacerbated (unknown) (no (unknown) (unknown) gabapentin Allergy (units (unknown) date) Confusion Verified unknown) 11/14/19 20:28 (unknown) (no (unknown) (unknown) ground level fall (units (unknown) date) injuring his left unknown) knee that had occurred on or about January (unknown) (no (unknown) (unknown) have a significantly (uni ts (unknown) date) elevated white blood unknown) cell count. He does have significant (unknown) (no (unknown) (unknown) hospitalization and (unit s (unknown) date) some from his very unknown) frail skin. Area of excoriation on the (unknown) (no (unknown) (unknown) household members: (units (unknown) date) significant other unknown) (unknown) (no (unknown) (unknown) hydrochlorothiazide (unit s (unknown) date) 25 mg tablet 50 mg PO unknown) QDAY ##0 07/08/12 (unknown) (no (unknown) (unknown) hyperlipidemia, (units (unknown) date) diabetes, cognitive unknown) decline, hyperlipidemia, congestive heart (unknown) (no (unknown) (unknown) hypotensive found to (unit s (unknown) date) be significantly unknown) anemic, presumably secondary to blood loss (unknown) (no (unknown) (unknown) if not caused from (units (unknown) date) the splint that had unknown) been in place. There is an area of (unknown) (no (unknown) (unknown) in place on the left (uni ts (unknown) date) forearm with unknown) underlying skin irritation shallow ulceration (unknown) (no (unknown) (unknown) injector (Ozempic) (units (unknown) date) unknown) (unknown) (no (unknown) (unknown) insulin glargine 100 (uni ts (unknown) date) unit/mL 100 unit SQ unknown) DAILY ##0 07/08/12 11/15/19 (unknown) (no (unknown) (unknown) into the top of his (unit s (unknown) date) foot and has a unknown) significant abrasion with large hematoma to (unknown) (no (unknown) (unknown) intramuscular oil (units (unknown) date) unknown) (unknown) (no (unknown) (unknown) left forearm with a (unit s (unknown) date) small area of unknown) ulceration without underlying abscess (unknown) (no (unknown) (unknown) lisinopril 20 mg (units (unknown) date) tablet 10 mg PO QDAY unknown) ##0 07/08/12 11/15/19 (unknown) (no (unknown) (unknown) looks like it could (unit s (unknown) date) have been associated unknown) with [facility] (unknown) (no (unknown) (unknown) looks like it may be (uni ts (unknown) date) from [facility] who unknown) will follow-up on this to see if (unknown) (no (unknown) (unknown) marital status: (units (unknown) date) unknown) (unknown) (no (unknown) (unknown) medial aspect it (units (unknown) date) does not appear to be unknown) intra-articular but it is difficult to (unknown) (no (unknown) (unknown) membranes (units (unkn own) date) unknown) (unknown) (no (unknown) (unknown) mg, allopurinol, (units (unknown) date) amiodarone 200 mg, unknown) atorvastatin 40 mg, duloxetine 30 mg, (unknown) (no (unknown) (unknown) mg/1.5 mL) (units (unk nown) date) subcutaneous pen unknown) (unknown) (no (unknown) (unknown) not tachypneic and (units (unknown) date) is able to speak in unknown) full sentences (unknown) (no (unknown) (unknown) omeprazole 40 mg (units (unknown) date) capsule,delayed 40 mg unknown) PO DAILY ##0 07/08/12 11/15/19 (unknown) (no (unknown) (unknown) ortho glass splint (units (unknown) date) on the medial aspect unknown) of his left lower leg that is abrading (unknown) (no (unknown) (unknown) oxycodone 10 mg (units (unknown) date) tablet,crush 10 mg PO unknown) BID 11/15/19 11/15/19 (unknown) (no (unknown) (unknown) paroxysmal atrial (units (unknown) date) fibrillation unknown) anticoagulated on rivaroxaban, hypertension, (unknown) (no (unknown) (unknown) person time place (units (unknown) date) it. He states he is unknown) not in any pain at this time. (unknown) (no (unknown) (unknown) refill both lower (units (unknown) date) extremities. unknown) (unknown) (no (unknown) (unknown) release (units (unkno wn) date) unknown) (unknown) (no (unknown) (unknown) resistant,extended (units (unknown) date) release 12 hr unknown) (unknown) (no (unknown) (unknown) rivaroxaban 20 mg (units (unknown) date) tablet (Xarelto) 20 unknown) mg PO DAILY 11/14/19 11/14/19 (unknown) (no (unknown) (unknown) semaglutide 0.25 mg (unit s (unknown) date) or 0.5 mg (2 0.25 mg unknown) SUBCUT QWEEK 11/15/19 11/15/19 (unknown) (no (unknown) (unknown) sildenafil 100 mg (units (unknown) date) tablet 100 mg PO unknown) DAILY PRN Sexual Activity 11/15/19 11/15/19 (unknown) (no (unknown) (unknown) skin irritation (units (unknown) date) inferiorly am unknown) concerned that the medial hematoma may be infected (unknown) (no (unknown) (unknown) spironolactone 25 (units (unknown) date) mg, torsemide 20 mg, unknown) Jardiance, lisinopril 2.5 mg, Xarelto 15 (unknown) (no (unknown) (unknown) subcutaneous (units (u nknown) date) solution (Lantus unknown) (unknown) (no (unknown) (unknown) tablet (units (unkno wn) date) unknown) (unknown) (no (unknown) (unknown) testosterone (units (u nknown) date) cypionate 200 mg/mL unknown) ##0 07/08/12 (unknown) (no (unknown) (unknown) the medial aspect of (uni ts (unknown) date) his left knee with unknown) bruising extending proximal and distal (unknown) (no (unknown) (unknown) to his son's house (units (unknown) date) on aspirin, unknown) clopidogrel, metoprolol succinate 50 mg, (unknown) (no (unknown) (unknown) transfuse [Packed (units (unknown) date) Cells] Stat unknown) (unknown) (no (unknown) (unknown) unchecked. (units (unk nown) date) unknown) (unknown) (no (unknown) (unknown) underwent PCI of the (uni ts (unknown) date) distal right coronary unknown) artery, had a transesophageal (unknown) (no (unknown) (unknown) ventricular ejection (uni ts (unknown) date) fraction at 15% with unknown) volume overload and tachycardia. He (unknown) (no (unknown) (unknown) zolpidem [From (units (unknown) date) Ambien] Allergy unknown) Confusion Verified 11/14/19 20:28 Result panel 27 (unknown) (no (unknown) (unknown) Qty: 0 (units (unkno wn) date) unknown) (unknown) (no (unknown) (unknown) (no value) (units (unk nown) date) unknown) (unknown) (no (unknown) (unknown) Date of Service: (units (unknown) date) 01/26/22 unknown) (unknown) (no (unknown) (unknown) (no value) (units (unk nown) date) unknown) (unknown) (no (unknown) (unknown) 0.25 mg SUBCUT QWEEK (uni ts (unknown) date) unknown) (unknown) (no (unknown) (unknown) 01/26/22 19:40 (units (unknown) date) unknown) (unknown) (no (unknown) (unknown) 1 tab PO BEDTIME (units (unknown) date) unknown) (unknown) (no (unknown) (unknown) 1,275 mg PO BID Qty: (uni ts (unknown) date) 0 unknown) (unknown) (no (unknown) (unknown) 10 mg PO BID (units (u nknown) date) unknown) (unknown) (no (unknown) (unknown) 10 mg PO QDAY Qty: 0 (uni ts (unknown) date) unknown) (unknown) (no (unknown) (unknown) 10 mg PO TID (units (u nknown) date) unknown) (unknown) (no (unknown) (unknown) 100 mg PO BID (units ( unknown) date) unknown) (unknown) (no (unknown) (unknown) 100 mg PO DAILY PRN (unit s (unknown) date) (Reason: Sexual unknown) Activity) (unknown) (no (unknown) (unknown) 100 unit SQ DAILY (units (unknown) date) Qty: 0 unknown) (unknown) (no (unknown) (unknown) 12.5 mg PO BID (units (unknown) date) unknown) (unknown) (no (unknown) (unknown) 20 mg PO DAILY (units (unknown) date) unknown) (unknown) (no (unknown) (unknown) 40 mg PO DAILY Qty: (unit s (unknown) date) 0 unknown) (unknown) (no (unknown) (unknown) 50 mg PO QDAY Qty: 0 (uni ts (unknown) date) unknown) (unknown) (no (unknown) (unknown) 81 mg PO QDAY Qty: 0 (uni ts (unknown) date) unknown) (unknown) (no (unknown) (unknown) Admin: 01/26/22 (units (unknown) date) 20:35 Dose: 1,000 unknown) mls/hr (unknown) (no (unknown) (unknown) Admin: 01/26/22 (units (unknown) date) 20:35 Dose: 200 unknown) mls/hr (unknown) (no (unknown) (unknown) Admin: 01/26/22 (units (unknown) date) 20:36 Dose: 1,000 unknown) mls/hr (unknown) (no (unknown) (unknown) Admin: 01/26/22 (units (unknown) date) 21:32 Dose: 200 unknown) mls/hr (unknown) (no (unknown) (unknown) Allergies (units (unkn own) date) unknown) (unknown) (no (unknown) (unknown) Documented By: KH (units (unknown) date) unknown) (unknown) (no (unknown) (unknown) Documented By: OW (units (unknown) date) unknown) (unknown) (no (unknown) (unknown) Documented By: ZGG (units (unknown) date) unknown) (unknown) (no (unknown) (unknown) ED Orders (units (unkn own) date) unknown) (unknown) (no (unknown) (unknown) Emergency Report (units (unknown) date) unknown) (unknown) (no (unknown) (unknown) Home Medications (units (unknown) date) unknown) (unknown) (no (unknown) (unknown) Infusion: 01/26/22 (units (unknown) date) 21:00 Dose: 0 mls/hr unknown) (unknown) (no (unknown) (unknown) [facility] [id number] (uni ts (unknown) date) [address] unknown) [place] [address] (unknown) (no (unknown) (unknown) Lab Results (units (un known) date) unknown) (unknown) (no (unknown) (unknown) Last Admin: 01/26/22 (uni ts (unknown) date) 22:33 Dose: Not Given unknown) (unknown) (no (unknown) (unknown) Last Infusion: (units (unknown) date) 01/26/22 21:00 Dose: unknown) 200 mls/hr (unknown) (no (unknown) (unknown) Last Infusion: (units (unknown) date) 01/26/22 22:33 Dose: unknown) 0 mls/hr (unknown) (no (unknown) (unknown) Last Infusion: (units (unknown) date) 01/26/22 22:34 Dose: unknown) 0 mls/hr (unknown) (no (unknown) (unknown) Stop: 01/26/22 20:08 (uni ts (unknown) date) unknown) (unknown) (no (unknown) (unknown) Stop: 01/26/22 20:51 (uni ts (unknown) date) unknown) (unknown) (no (unknown) (unknown) Stop: 01/26/22 21:09 (uni ts (unknown) date) unknown) (unknown) (no (unknown) (unknown) Stop: 01/26/22 22:14 (uni ts (unknown) date) unknown) (unknown) (no (unknown) (unknown) Urine Dip (units (unkn own) date) unknown) (unknown) (no (unknown) (unknown) Vital Signs - 8 hr (units (unknown) date) unknown) (unknown) (no (unknown) (unknown) (no value) (units (unk nown) date) unknown) (unknown) (no (unknown) (unknown) 01/26/22 01/26/22 (units (unknown) date) 01/26/22 Range/Units unknown) (unknown) (no (unknown) (unknown) 01/26/22 01/26/22 (units (unknown) date) Range/Units unknown) (unknown) (no (unknown) (unknown) 19:40 19:40 19:40 (units (unknown) date) unknown) (unknown) (no (unknown) (unknown) 20:21 20:47 (units (un known) date) unknown) (unknown) (no (unknown) (unknown) Lantus U-100 Insulin (uni ts (unknown) date) 100 UNIT/1 ML unknown) solution (unknown) (no (unknown) (unknown) Metformin (units (unkn own) date) Hydrochloride unknown) (GLUCOPHAGE) (unknown) (no (unknown) (unknown) Ozempic 0.25 mg or (units (unknown) date) 0.5 mg(2 mg/1.5 mL) unknown) Pen Injector (unknown) (no (unknown) (unknown) VITAMIN D (Vitamin (units (unknown) date) D3) unknown) (unknown) (no (unknown) (unknown) Xarelto 20 mg tablet (uni ts (unknown) date) unknown) (unknown) (no (unknown) (unknown) allopurinol 100 mg (units (unknown) date) Tablet unknown) (unknown) (no (unknown) (unknown) aspirin 81 MG (units ( unknown) date) tablet,chewable unknown) (unknown) (no (unknown) (unknown) atorvastatin 20 mg (units (unknown) date) Tablet unknown) (unknown) (no (unknown) (unknown) carbidopa-levodopa (units (unknown) date) 25-100 mg Tablet unknown) (unknown) (no (unknown) (unknown) carvedilol 12.5 mg (units (unknown) date) Tablet unknown) (unknown) (no (unknown) (unknown) cyclobenzaprine 10 (units (unknown) date) mg Tablet unknown) (unknown) (no (unknown) (unknown) hydrochlorothiazide (unit s (unknown) date) 25 MG tablet unknown) (unknown) (no (unknown) (unknown) lisinopril 20 MG (units (unknown) date) tablet unknown) (unknown) (no (unknown) (unknown) omeprazole 40 MG (units (unknown) date) capsule,delayed unknown) release(DR/EC) (unknown) (no (unknown) (unknown) oxycodone 10 mg (units (unknown) date) tablet,oral unknown) only,ext.rel.12 hr (unknown) (no (unknown) (unknown) sildenafil 100 mg (units (unknown) date) Tablet unknown) (unknown) (no (unknown) (unknown) testosterone (units (u nknown) date) cypionate unknown) [Depo-Testosterone] 200 MG/1 ML oil (unknown) (no (unknown) (unknown) 01/26/22 (units (unkno wn) date) unknown) (unknown) (no (unknown) (unknown) He is weak, (units (un known) date) confused, cooperative unknown) he has an ortho glass splint on the medial (unknown) (no (unknown) (unknown) Medication (units (unk nown) date) Instructions Recorded unknown) Confirmed (unknown) (no (unknown) (unknown) any also has skin (units (unknown) date) irritation and unknown) developing cellulitis in the left forearm with (unknown) (no (unknown) (unknown) catheterization and (unit s (unknown) date) had PCI of the distal unknown) right coronary artery and also found (unknown) (no (unknown) (unknown) dressings that (units (unknown) date) appear to been in unknown) place for a number of days and unchanged and (unknown) (no (unknown) (unknown) failure (units (unkno wn) date) unknown) (unknown) (no (unknown) (unknown) he was seen at (units (unknown) date) [facility] on unknown) January 23 and with a ground level fall (unknown) (no (unknown) (unknown) injuring his left (units (unknown) date) knee that had unknown) occurred on or about January 20. On the (unknown) (no (unknown) (unknown) into they large (units (unknown) date) hematoma on the unknown) medial aspect of the left knee. He does not (unknown) (no (unknown) (unknown) mg nightly and as (units (unknown) date) needed nitroglycerin. unknown) (unknown) (no (unknown) (unknown) (Depo-Testosterone) (unit s (unknown) date) unknown) (unknown) (no (unknown) (unknown) (GLUCOPHAGE) (units (u nknown) date) unknown) (unknown) (no (unknown) (unknown) 01/26/22 19:40 (units (unknown) date) unknown) (unknown) (no (unknown) (unknown) 01/26/22 19:45 (units (unknown) date) unknown) (unknown) (no (unknown) (unknown) 01/26/22 19:52 (units (unknown) date) unknown) (unknown) (no (unknown) (unknown) 01/26/22 20:07 (units (unknown) date) unknown) (unknown) (no (unknown) (unknown) 01/26/22 20:09 (units (unknown) date) unknown) (unknown) (no (unknown) (unknown) 01/26/22 20:15 (units (unknown) date) unknown) (unknown) (no (unknown) (unknown) 01/26/22 20:21 (units (unknown) date) unknown) (unknown) (no (unknown) (unknown) 01/26/22 20:47 (units (unknown) date) unknown) (unknown) (no (unknown) (unknown) 01/26/22 21:56 (units (unknown) date) unknown) (unknown) (no (unknown) (unknown) 19:44 01/26/22 (units (unknown) date) unknown) (unknown) (no (unknown) (unknown) 20:34 01/26/22 (units (unknown) date) unknown) (unknown) (no (unknown) (unknown) 20:41 (units (unkno wn) date) unknown) (unknown) (no (unknown) (unknown) 21:00 01/26/22 (units (unknown) date) unknown) (unknown) (no (unknown) (unknown) 21:25 (units (unkno wn) date) unknown) (unknown) (no (unknown) (unknown) 21:25 01/26/22 (units (unknown) date) unknown) (unknown) (no (unknown) (unknown) 21:30 (units (unkno wn) date) unknown) (unknown) (no (unknown) (unknown) 21:30 01/26/22 (units (unknown) date) unknown) (unknown) (no (unknown) (unknown) 21:45 (units (unkno wn) date) unknown) (unknown) (no (unknown) (unknown) 21:45 01/26/22 (units (unknown) date) unknown) (unknown) (no (unknown) (unknown) 22:00 01/26/22 (units (unknown) date) unknown) (unknown) (no (unknown) (unknown) 22:15 (units (unkno wn) date) unknown) (unknown) (no (unknown) (unknown) 22:15 01/26/22 (units (unknown) date) unknown) (unknown) (no (unknown) (unknown) 22:30 (units (unkno wn) date) unknown) (unknown) (no (unknown) (unknown) 22:30 01/26/22 (units (unknown) date) unknown) (unknown) (no (unknown) (unknown) 22:35 01/26/22 (units (unknown) date) unknown) (unknown) (no (unknown) (unknown) 22:36 01/26/22 (units (unknown) date) unknown) (unknown) (no (unknown) (unknown) 22:45 (units (unkno wn) date) unknown) (unknown) (no (unknown) (unknown) 22:45 01/26/22 (units (unknown) date) unknown) (unknown) (no (unknown) (unknown) 22:50 (units (unkno wn) date) unknown) (unknown) (no (unknown) (unknown) 22:51 01/26/22 (units (unknown) date) unknown) (unknown) (no (unknown) (unknown) 23:00 01/26/22 (units (unknown) date) unknown) (unknown) (no (unknown) (unknown) 23:01 (units (unkno wn) date) unknown) (unknown) (no (unknown) (unknown) 23:01 01/26/22 (units (unknown) date) unknown) (unknown) (no (unknown) (unknown) 23:04 01/26/22 (units (unknown) date) unknown) (unknown) (no (unknown) (unknown) 23:07 (units (unkno wn) date) unknown) (unknown) (no (unknown) (unknown) 23:15 (units (unkno wn) date) unknown) (unknown) (no (unknown) (unknown) 23:15 01/26/22 (units (unknown) date) unknown) (unknown) (no (unknown) (unknown) 23:30 01/26/22 (units (unknown) date) unknown) (unknown) (no (unknown) (unknown) 23:45 (units (unkno wn) date) unknown) (unknown) (no (unknown) (unknown) [address] (units (unkno wn) date) unknown) (unknown) (no (unknown) (unknown) 76-year-old (units (un known) date) gentleman with a unknown) history of coronary artery disease post CABG x4, (unknown) (no (unknown) (unknown) ALT (<50) IU/L (units (unknown) date) unknown) (unknown) (no (unknown) (unknown) ALT 27 (<50) IU/L (units (unknown) date) unknown) (unknown) (no (unknown) (unknown) AST (17-59) IU/L (units (unknown) date) unknown) (unknown) (no (unknown) (unknown) AST 28 (17-59) IU/L (unit s (unknown) date) unknown) (unknown) (no (unknown) (unknown) Abdomen: Soft, mild (unit s (unknown) date) distention but unknown) nontender, good bowel tones, no flank pain (unknown) (no (unknown) (unknown) Age/Sex: 76 / M (units (unknown) date) unknown) (unknown) (no (unknown) (unknown) Albumin (3.5-5.0) (units (unknown) date) g/dL unknown) (unknown) (no (unknown) (unknown) Albumin 3.6 (units (un known) date) (3.5-5.0) g/dL unknown) (unknown) (no (unknown) (unknown) Albumin/Globulin (units (unknown) date) Ratio (1.0-2.8) unknown) (unknown) (no (unknown) (unknown) Albumin/Globulin (units (unknown) date) Ratio 1.0 (1.0-2.8) unknown) (unknown) (no (unknown) (unknown) Alkaline Phosphatase (uni ts (unknown) date) (38-126) U/L unknown) (unknown) (no (unknown) (unknown) Alkaline Phosphatase (uni ts (unknown) date) 170 H (38-126) U/L unknown) (unknown) (no (unknown) (unknown) Allergy/AdvReac Type (uni ts (unknown) date) Severity Reaction unknown) Status Date / Time (unknown) (no (unknown) (unknown) Anisocytosis (units (u nknown) date) unknown) (unknown) (no (unknown) (unknown) Anisocytosis 3+ H (units (unknown) date) unknown) (unknown) (no (unknown) (unknown) Anti-Inflamma (units ( unknown) date) disease unknown) (unknown) (no (unknown) (unknown) Antibody Screen (units (unknown) date) unknown) (unknown) (no (unknown) (unknown) Antibody Screen (units (unknown) date) Negative unknown) (unknown) (no (unknown) (unknown) Atrial fibrillation (unit s (unknown) date) unknown) (unknown) (no (unknown) (unknown) January 06. 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 (unknown) (no (unknown) (unknown) BUN (9-20) mg/dL (units (unknown) date) unknown) (unknown) (no (unknown) (unknown) BUN 61 H (9-20) (units (unknown) date) mg/dL unknown) (unknown) (no (unknown) (unknown) BUN/Creatinine Ratio (uni ts (unknown) date) (6-22) unknown) (unknown) (no (unknown) (unknown) BUN/Creatinine Ratio (uni ts (unknown) date) 19.2 (6-22) unknown) (unknown) (no (unknown) (unknown) Baso # (Auto) (units ( unknown) date) (0-100) /uL unknown) (unknown) (no (unknown) (unknown) Baso # (Auto) 100 (units (unknown) date) (0-100) /uL unknown) (unknown) (no (unknown) (unknown) Baso % (Auto) (0-2) (unit s (unknown) date) % unknown) (unknown) (no (unknown) (unknown) Baso % (Auto) 1.0 (units (unknown) date) (0-2) % unknown) (unknown) (no (unknown) (unknown) Bedside Urine (units ( unknown) date) Bilirubin - Negative unknown) (unknown) (no (unknown) (unknown) Bedside Urine (units ( unknown) date) Glucose 500 mg/dl unknown) (unknown) (no (unknown) (unknown) Bedside Urine Ketone (uni ts (unknown) date) - Negative unknown) (unknown) (no (unknown) (unknown) Bedside Urine (units ( unknown) date) Leukocytes +/- 15 unknown) (unknown) (no (unknown) (unknown) Bedside Urine (units ( unknown) date) Nitrite - Negative unknown) (unknown) (no (unknown) (unknown) Bedside Urine Occult (uni ts (unknown) date) Blood +/- unknown) (unknown) (no (unknown) (unknown) Bedside Urine (units ( unknown) date) Protein - Negative unknown) (unknown) (no (unknown) (unknown) Bedside Urine (units ( unknown) date) Urobilinogen - unknown) Negative (unknown) (no (unknown) (unknown) Bedside Urine pH 5.5 (uni ts (unknown) date) unknown) (unknown) (no (unknown) (unknown) Blood Culture Stat (units (unknown) date) unknown) (unknown) (no (unknown) (unknown) Blood Pressure (units (unknown) date) 102/52 L 98/52 L unknown) (unknown) (no (unknown) (unknown) Blood Pressure 78/54 (uni ts (unknown) date) L 01/26/ 19:44 unknown) (unknown) (no (unknown) (unknown) Blood Pressure 95/53 (uni ts (unknown) date) L unknown) (unknown) (no (unknown) (unknown) Blood Pressure 95/54 (uni ts (unknown) date) L unknown) (unknown) (no (unknown) (unknown) Blood Pressure 95/55 (uni ts (unknown) date) L unknown) (unknown) (no (unknown) (unknown) Blood Pressure (units (unknown) date) 102/53 L unknown) (unknown) (no (unknown) (unknown) Blood Pressure 78/54 (uni ts (unknown) date) L 102/52 L unknown) (unknown) (no (unknown) (unknown) Blood Pressure 90/50 (uni ts (unknown) date) L 92/51 L unknown) (unknown) (no (unknown) (unknown) Blood Pressure 94/46 (uni ts (unknown) date) L 95/55 L 98/52 L unknown) (unknown) (no (unknown) (unknown) Blood Pressure 96/53 (uni ts (unknown) date) L unknown) (unknown) (no (unknown) (unknown) Blood Pressure 97/52 (uni ts (unknown) date) L 101/54 L unknown) (unknown) (no (unknown) (unknown) Blood Pressure 98/52 (uni ts (unknown) date) L unknown) (unknown) (no (unknown) (unknown) Blood Pressure 98/52 (uni ts (unknown) date) L 95/54 L 95/50 L unknown) (unknown) (no (unknown) (unknown) Blood Pressure 98/52 (uni ts (unknown) date) L 97/52 L 102/53 L unknown) (unknown) (no (unknown) (unknown) Blood Type (units (unk nown) date) unknown) (unknown) (no (unknown) (unknown) Blood Type A (units (u nknown) date) Negative unknown) (unknown) (no (unknown) (unknown) COVID19 -Nasal (units (unknown) date) RAPID/Pre-Proc Stat unknown) (unknown) (no (unknown) (unknown) CT LE LT wo con Stat (uni ts (unknown) date) unknown) (unknown) (no (unknown) (unknown) CT head/brain wo con (uni ts (unknown) date) Stat unknown) (unknown) (no (unknown) (unknown) Calcium (8.4-10.2) (units (unknown) date) mg/dL unknown) (unknown) (no (unknown) (unknown) Calcium 8.4 (units (un known) date) (8.4-10.2) mg/dL unknown) (unknown) (no (unknown) (unknown) Carbon Dioxide (units (unknown) date) (22-32) mmol/L unknown) (unknown) (no (unknown) (unknown) Carbon Dioxide 27 (units (unknown) date) (22-32) mmol/L unknown) (unknown) (no (unknown) (unknown) Cardiac: Regular (units (unknown) date) rate and rhythm no unknown) murmurs no bruits (unknown) (no (unknown) (unknown) Chief complaint: (units (unknown) date) Skin/Abscess/Foreign unknown) Body (unknown) (no (unknown) (unknown) Chloride (98-107) (units (unknown) date) mmol/L unknown) (unknown) (no (unknown) (unknown) Chloride 97 L (units ( unknown) date) (98-107) mmol/L unknown) (unknown) (no (unknown) (unknown) Complete Blood Count (uni ts (unknown) date) AUTO DIFF Stat unknown) (unknown) (no (unknown) (unknown) Comprehensive (units ( unknown) date) Metabolic Panel Stat unknown) (unknown) (no (unknown) (unknown) Coronary artery (units (unknown) date) disease unknown) (unknown) (no (unknown) (unknown) Course (units (unkno wn) date) unknown) (unknown) (no (unknown) (unknown) Creatinine (units (unk nown) date) (0.66-1.25) mg/dL unknown) (unknown) (no (unknown) (unknown) Creatinine 3.18 H (units (unknown) date) (0.66-1.25) mg/dL unknown) (unknown) (no (unknown) (unknown) Crossmatch (units (unk nown) date) unknown) (unknown) (no (unknown) (unknown) Crossmatch See (units (unknown) date) Detail unknown) (unknown) (no (unknown) (unknown) : 1945 (units (unknown) date) Acct:[id number] unknown) (unknown) (no (unknown) (unknown) Departure (units (unkn own) date) unknown) (unknown) (no (unknown) (unknown) Diabetes (units (unkno wn) date) unknown) (unknown) (no (unknown) (unknown) Discharge Plan (units (unknown) date) unknown) (unknown) (no (unknown) (unknown) Discontinued (units (u nknown) date) Medications unknown) (unknown) (no (unknown) (unknown) Dyslipidemia (units (u nknown) date) unknown) (unknown) (no (unknown) (unknown) ECG Data (units (unkno wn) date) unknown) (unknown) (no (unknown) (unknown) EKG-12 Lead Stat (units (unknown) date) unknown) (unknown) (no (unknown) (unknown) ER Physician: (units ( unknown) date) Ashley Glynn MD unknown) (unknown) (no (unknown) (unknown) Eos # (Auto) (0-450) (uni ts (unknown) date) /uL unknown) (unknown) (no (unknown) (unknown) Eos # (Auto) 200 (units (unknown) date) (0-450) /uL unknown) (unknown) (no (unknown) (unknown) Eos % (Auto) (2-4) % (uni ts (unknown) date) unknown) (unknown) (no (unknown) (unknown) Eos % (Auto) 2.8 (units (unknown) date) (2-4) % unknown) (unknown) (no (unknown) (unknown) Esterase (units (unkno wn) date) unknown) (unknown) (no (unknown) (unknown) Estimated GFR (>60) (unit s (unknown) date) mL/min unknown) (unknown) (no (unknown) (unknown) Estimated GFR 19 L (units (unknown) date) (>60) mL/min unknown) (unknown) (no (unknown) (unknown) Exam (units (unkno wn) date) unknown) (unknown) (no (unknown) (unknown) Extremities: Left (units (unknown) date) leg is described unknown) under the skin exam. Reasonable capillary (unknown) (no (unknown) (unknown) Full and symmetrical (uni ts (unknown) date) air movement unknown) (unknown) (no (unknown) (unknown) General (units (unkno wn) date) unknown) (unknown) (no (unknown) (unknown) General: Chronically (unit s (unknown) date) ill-appearing, pale, unknown) weak but in no acute distress. He is (unknown) (no (unknown) (unknown) GenericComposite[Plt (uni ts (unknown) date) Count (150-400) unknown) X10^3/uL ] (unknown) (no (unknown) (unknown) GenericComposite[Plt (uni ts (unknown) date) Count 206 (150-400) unknown) X10^3/uL ] (unknown) (no (unknown) (unknown) GenericComposite[RBC (uni ts (unknown) date) (4.5-5.9) X10^6/uL ] unknown) (unknown) (no (unknown) (unknown) GenericComposite[RBC (uni ts (unknown) date) 2.75 L (4.5-5.9) unknown) X10^6/uL ] (unknown) (no (unknown) (unknown) GenericComposite[WBC (uni ts (unknown) date) (4.5-11.0) X10^3/uL ] unknown) (unknown) (no (unknown) (unknown) GenericComposite[WBC (uni ts (unknown) date) 7.1 (4.5-11.0) unknown) X10^3/uL ] (unknown) (no (unknown) (unknown) Globulin (1.7-4.1) (units (unknown) date) g/dL unknown) (unknown) (no (unknown) (unknown) Globulin 3.5 (units (u nknown) date) (1.7-4.1) g/dL unknown) (unknown) (no (unknown) (unknown) Glucose (80-110) (units (unknown) date) mg/dL unknown) (unknown) (no (unknown) (unknown) Glucose 130 H (units ( unknown) date) (80-110) mg/dL unknown) (unknown) (no (unknown) (unknown) HEENT: Moist mucous (unit s (unknown) date) membranes, normal unknown) sclera with reactive pupils, pale mucous (unknown) (no (unknown) (unknown) HPI - General Adult (unit s (unknown) date) unknown) (unknown) (no (unknown) (unknown) HPI narrative: (units (unknown) date) unknown) (unknown) (no (unknown) (unknown) Have spoken with his (uni ts (unknown) date) son and medical unknown) records are now available for review. (unknown) (no (unknown) (unknown) Hct (41-53) % (units ( unknown) date) unknown) (unknown) (no (unknown) (unknown) Hct 20.8 L* (41-53) (unit s (unknown) date) % unknown) (unknown) (no (unknown) (unknown) He was admitted at (units (unknown) date) [facility] on January unknown) through January 13 for elective heart (unknown) (no (unknown) (unknown) [phone] decompensated heart (unknown) (no (unknown) (unknown) Hgb (13.5-17.5) g/dL (uni ts (unknown) date) unknown) (unknown) (no (unknown) (unknown) Hgb 6.7 L* (units (unk nown) date) (13.5-17.5) g/dL unknown) (unknown) (no (unknown) (unknown) His son noted him to (uni ts (unknown) date) be increasingly weak unknown) this morning and he comes in (unknown) (no (unknown) (unknown) History of Present (units (unknown) date) Illness unknown) (unknown) (no (unknown) (unknown) Hx of (units (unkno wn) date) cholecystectomy unknown) (unknown) (no (unknown) (unknown) Hypertension (units (u nknown) date) unknown) (unknown) (no (unknown) (unknown) IV NOW ONE (units (unk nown) date) unknown) (unknown) (no (unknown) (unknown) Initial Vital Signs (unit s (unknown) date) unknown) (unknown) (no (unknown) (unknown) Initial Vital Signs: (uni ts (unknown) date) unknown) (unknown) (no (unknown) (unknown) Initial concern was (unit s (unknown) date) for sepsis and he was unknown) given Zosyn and vancomycin. As labs (unknown) (no (unknown) (unknown) Interpretation: (units (unknown) date) unknown) (unknown) (no (unknown) (unknown) Lab Data (units (unkno wn) date) unknown) (unknown) (no (unknown) (unknown) Labs: (units (unkno wn) date) unknown) (unknown) (no (unknown) (unknown) Lactate (0.7-2.1) (units (unknown) date) mmol/L unknown) (unknown) (no (unknown) (unknown) Lactate 1.3 (units (un known) date) (0.7-2.1) mmol/L unknown) (unknown) (no (unknown) (unknown) Lactate (Lactic (units (unknown) date) Acid) Stat unknown) (unknown) (no (unknown) (unknown) Lipase (23-300) U/L (unit s (unknown) date) unknown) (unknown) (no (unknown) (unknown) Lipase 135 (23-300) (unit s (unknown) date) U/L unknown) (unknown) (no (unknown) (unknown) Lipase Stat (units (un known) date) unknown) (unknown) (no (unknown) (unknown) Lymph # (Auto) (units (unknown) date) (7007-1983) /uL unknown) (unknown) (no (unknown) (unknown) Lymph # (Auto) 800 L (uni ts (unknown) date) (0869-1449) /uL unknown) (unknown) (no (unknown) (unknown) Lymph % (Auto) (units (unknown) date) (25-40) % unknown) (unknown) (no (unknown) (unknown) Lymph % (Auto) 11.4 (unit s (unknown) date) L (25-40) % unknown) (unknown) (no (unknown) (unknown) MCH (26-34) PG (units (unknown) date) unknown) (unknown) (no (unknown) (unknown) MCH 24.6 L (26-34) (units (unknown) date) PG unknown) (unknown) (no (unknown) (unknown) MCHC (30-36) % (units (unknown) date) unknown) (unknown) (no (unknown) (unknown) MCHC 32.4 (30-36) % (unit s (unknown) date) unknown) (unknown) (no (unknown) (unknown) MCV (80-100) fL (units (unknown) date) unknown) (unknown) (no (unknown) (unknown) MCV 75.7 L (80-100) (unit s (unknown) date) fL unknown) (unknown) (no (unknown) (unknown) MDM Narrative (units ( unknown) date) unknown) (unknown) (no (unknown) (unknown) Medical Decision (units (unknown) date) Making unknown) (unknown) (no (unknown) (unknown) Medical History (units (unknown) date) (Updated 01/26/22 @ unknown) 20:14 by Ashley Glynn MD) (unknown) (no (unknown) (unknown) Medical decision (units (unknown) date) making narrative: unknown) (unknown) (no (unknown) (unknown) Metformin (units (unkn own) date) Hydrochloride 1,275 unknown) mg PO BID ##0 07/08/12 (unknown) (no (unknown) (unknown) Miscellaneous,Doctor (uni ts (unknown) date) , [Primary Care unknown) Provider] - (unknown) (no (unknown) (unknown) [place] # (Auto) (units ( unknown) date) (0-900) /uL unknown) (unknown) (no (unknown) (unknown) [place] # (Auto) 700 (units (unknown) date) (0-900) /uL unknown) (unknown) (no (unknown) (unknown) [place] % (Auto) (3-14) (uni ts (unknown) date) % unknown) (unknown) (no (unknown) (unknown) [place] % (Auto) 9.8 (units (unknown) date) (3-14) % unknown) (unknown) (no (unknown) (unknown) NSAIDS (units (unkno wn) date) (Non-Steroidal unknown) AdvReac Severe kidney Verified 11/14/19 20:28 (unknown) (no (unknown) (unknown) Neck: No JVD, supple (uni ts (unknown) date) unknown) (unknown) (no (unknown) (unknown) Neurologic: Globally (uni ts (unknown) date) weak but able to move unknown) all extremities (unknown) (no (unknown) (unknown) Neut # (Auto) (units ( unknown) date) (3166-0581) /uL unknown) (unknown) (no (unknown) (unknown) Neut # (Auto) 5400 (units (unknown) date) (7012-0103) /uL unknown) (unknown) (no (unknown) (unknown) Neut % (Auto) (units ( unknown) date) (50-75) % unknown) (unknown) (no (unknown) (unknown) Neut % (Auto) 75.0 (units (unknown) date) (50-75) % unknown) (unknown) (no (unknown) (unknown) No Action (units (unkn own) date) unknown) (unknown) (no (unknown) (unknown) ONE (units (unkno wn) date) unknown) (unknown) (no (unknown) (unknown) Ordered: (units (unkno wn) date) unknown) (unknown) (no (unknown) (unknown) Orders (units (unkno wn) date) unknown) (unknown) (no (unknown) (unknown) Oxygen Delivery (units (unknown) date) Method unknown) (unknown) (no (unknown) (unknown) Oxygen Delivery (units (unknown) date) Method 01/26/22 19:44 unknown) (unknown) (no (unknown) (unknown) Oxygen Delivery (units (unknown) date) Method unknown) (unknown) (no (unknown) (unknown) Oxygen Delivery (units (unknown) date) Method Room Air unknown) (unknown) (no (unknown) (unknown) Patient History (units (unknown) date) unknown) (unknown) (no (unknown) (unknown) Patient was (units (un known) date) discharged from [facility] for acute congestive heart failure on (unknown) (no (unknown) (unknown) Patient: (units (unkno wn) date) Osmel Baxter MR#: unknown) M000 (unknown) (no (unknown) (unknown) Piperacillin (units (u nknown) date) Sod/Tazobactam (Sod unknown) 4.5 gm/ Sodium Chloride) 100 mls @ 200 mls/hr (unknown) (no (unknown) (unknown) Point of care (units ( unknown) date) testing: unknown) (unknown) (no (unknown) (unknown) Potassium (3.4-5.1) (unit s (unknown) date) mmol/L unknown) (unknown) (no (unknown) (unknown) Potassium 4.3 (units ( unknown) date) (3.4-5.1) mmol/L unknown) (unknown) (no (unknown) (unknown) Prescriptions: (units (unknown) date) unknown) (unknown) (no (unknown) (unknown) Procalcitonin (<0.5) (uni ts (unknown) date) ng/mL unknown) (unknown) (no (unknown) (unknown) Procalcitonin 0.50 (units (unknown) date) (<0.5) ng/mL unknown) (unknown) (no (unknown) (unknown) Procalcitonin Stat (units (unknown) date) unknown) (unknown) (no (unknown) (unknown) Psych: Will respond (unit s (unknown) date) to yes or no unknown) questions but otherwise altered. (unknown) (no (unknown) (unknown) Pulse Oximetry (units (unknown) date) unknown) (unknown) (no (unknown) (unknown) Pulse Oximetry (units (unknown) date) unknown) (unknown) (no (unknown) (unknown) Pulse Oximetry 98 (units (unknown) date) unknown) (unknown) (no (unknown) (unknown) Pulse Oximetry 100 (units (unknown) date) unknown) (unknown) (no (unknown) (unknown) Pulse Oximetry 89 L (unit s (unknown) date) 98 unknown) (unknown) (no (unknown) (unknown) Pulse Oximetry 97 (units (unknown) date) unknown) (unknown) (no (unknown) (unknown) Pulse Oximetry 97 (units (unknown) date) 01/26/22 19:44 unknown) (unknown) (no (unknown) (unknown) Pulse Oximetry 97 99 (uni ts (unknown) date) unknown) (unknown) (no (unknown) (unknown) Pulse Oximetry 100 (units (unknown) date) 100 unknown) (unknown) (no (unknown) (unknown) Pulse Oximetry 100 (units (unknown) date) 99 unknown) (unknown) (no (unknown) (unknown) Pulse Oximetry 97 98 (uni ts (unknown) date) unknown) (unknown) (no (unknown) (unknown) Pulse Oximetry 99 (units (unknown) date) unknown) (unknown) (no (unknown) (unknown) Pulse Rate (units (unk nown) date) unknown) (unknown) (no (unknown) (unknown) Pulse Rate 61 62 (units (unknown) date) unknown) (unknown) (no (unknown) (unknown) Pulse Rate 63 (units ( unknown) date) unknown) (unknown) (no (unknown) (unknown) Pulse Rate 64 64 (units (unknown) date) unknown) (unknown) (no (unknown) (unknown) Pulse Rate 65 (units ( unknown) date) 01/26/22 19:44 unknown) (unknown) (no (unknown) (unknown) Pulse Rate 62 62 (units (unknown) date) unknown) (unknown) (no (unknown) (unknown) Pulse Rate 63 63 62 (unit s (unknown) date) unknown) (unknown) (no (unknown) (unknown) Pulse Rate 64 (units ( unknown) date) unknown) (unknown) (no (unknown) (unknown) Pulse Rate 64 63 (units (unknown) date) unknown) (unknown) (no (unknown) (unknown) Pulse Rate 64 64 (units (unknown) date) unknown) (unknown) (no (unknown) (unknown) Pulse Rate 64 62 62 (unit s (unknown) date) unknown) (unknown) (no (unknown) (unknown) Pulse Rate 64 64 65 (unit s (unknown) date) unknown) (unknown) (no (unknown) (unknown) Pulse Rate 65 65 64 (unit s (unknown) date) unknown) (unknown) (no (unknown) (unknown) RBC Morphology (units (unknown) date) unknown) (unknown) (no (unknown) (unknown) RBC Morphology Not (units (unknown) date) Reportable unknown) (unknown) (no (unknown) (unknown) RDW (11.6-14.8) % (units (unknown) date) unknown) (unknown) (no (unknown) (unknown) RDW 24.5 H (units (unk nown) date) (11.6-14.8) % unknown) (unknown) (no (unknown) (unknown) ROS Unobtainable: (units (unknown) date) Unobtainable due to unknown) mental condition (unknown) (no (unknown) (unknown) RT Consult Eval and (unit s (unknown) date) Treat NOW unknown) (unknown) (no (unknown) (unknown) Referrals: (units (unk nown) date) unknown) (unknown) (no (unknown) (unknown) Related Data (units (u nknown) date) unknown) (unknown) (no (unknown) (unknown) Respiratory Rate (units (unknown) date) unknown) (unknown) (no (unknown) (unknown) Respiratory Rate 15 (unit s (unknown) date) unknown) (unknown) (no (unknown) (unknown) Respiratory Rate 20 (unit s (unknown) date) 21 unknown) (unknown) (no (unknown) (unknown) Respiratory Rate 20 (unit s (unknown) date) 26 H unknown) (unknown) (no (unknown) (unknown) Respiratory Rate 21 (unit s (unknown) date) unknown) (unknown) (no (unknown) (unknown) Respiratory Rate 21 (unit s (unknown) date) 01/26/22 19:44 unknown) (unknown) (no (unknown) (unknown) Respiratory Rate 14 (unit s (unknown) date) 13 unknown) (unknown) (no (unknown) (unknown) Respiratory Rate 17 (unit s (unknown) date) unknown) (unknown) (no (unknown) (unknown) Respiratory Rate 18 (unit s (unknown) date) 14 21 unknown) (unknown) (no (unknown) (unknown) Respiratory Rate 18 (unit s (unknown) date) 15 18 unknown) (unknown) (no (unknown) (unknown) Respiratory Rate 19 (unit s (unknown) date) 16 unknown) (unknown) (no (unknown) (unknown) Respiratory Rate 20 (unit s (unknown) date) 24 unknown) (unknown) (no (unknown) (unknown) Respiratory Rate 20 (unit s (unknown) date) 12 18 unknown) (unknown) (no (unknown) (unknown) Respiratory Rate 21 (unit s (unknown) date) 17 17 unknown) (unknown) (no (unknown) (unknown) Respiratory: Lungs (units (unknown) date) are clear to unknown) auscultation, no wheezing no rales no rhonchi. (unknown) (no (unknown) (unknown) Result diagrams: (units (unknown) date) unknown) (unknown) (no (unknown) (unknown) Review of Systems (units (unknown) date) unknown) (unknown) (no (unknown) (unknown) S/P CABG x 4 (units (u nknown) date) unknown) (unknown) (no (unknown) (unknown) SARS-CoV-2 (PCR) (units (unknown) date) (Negative) unknown) (unknown) (no (unknown) (unknown) SARS-CoV-2 (PCR) (units (unknown) date) Negative (Negative) unknown) (unknown) (no (unknown) (unknown) [facility] who will (unit s (unknown) date) follow-up on this to unknown) see if additional records are present. (unknown) (no (unknown) (unknown) Signed By: (units (unk nown) date) unknown) (unknown) (no (unknown) (unknown) Sinus rhythm, left (units (unknown) date) bundle-branch block, unknown) no acute ischemic changes, rate of 67 (unknown) (no (unknown) (unknown) Skin: Pale, Warm and (uni ts (unknown) date) dry, multiple bruises unknown) some look like there from recent (unknown) (no (unknown) (unknown) Sleep apnea (units (un known) date) unknown) (unknown) (no (unknown) (unknown) Smoking Status: (units (unknown) date) Former smoker unknown) (unknown) (no (unknown) (unknown) Smoking Status: (units (unknown) date) Former smoker unknown) (unknown) (no (unknown) (unknown) Social History (units (unknown) date) (Updated 09/25/18 @ unknown) 11:17 by Telma Dickey DO) (unknown) (no (unknown) (unknown) Sodium (137-145) (units (unknown) date) mmol/L unknown) (unknown) (no (unknown) (unknown) Sodium 132 L (units (u nknown) date) (137-145) mmol/L unknown) (unknown) (no (unknown) (unknown) Sodium Chloride (units (unknown) date) (Normal Saline 0.9%) unknown) 1,000 mls @ 1,000 mls/hr IV BOLUS ONE (unknown) (no (unknown) (unknown) Stated complaint: (units (unknown) date) Dementia unknown) (unknown) (no (unknown) (unknown) Substance Use Type: (unit s (unknown) date) does not use unknown) (unknown) (no (unknown) (unknown) Surgical History (units (unknown) date) (Reviewed 11/15/19 @ unknown) 04:28 by MEKA Garcia) (unknown) (no (unknown) (unknown) Temperature (units (un known) date) unknown) (unknown) (no (unknown) (unknown) Temperature (units (un known) date) unknown) (unknown) (no (unknown) (unknown) Temperature 96.3 F L (uni ts (unknown) date) 96.8 F L unknown) (unknown) (no (unknown) (unknown) Temperature 97.7 F (units (unknown) date) 01/26/22 19:44 unknown) (unknown) (no (unknown) (unknown) Temperature 96.7 F L (uni ts (unknown) date) 96.5 F L unknown) (unknown) (no (unknown) (unknown) Temperature 97.7 F (units (unknown) date) 96.8 F L unknown) (unknown) (no (unknown) (unknown) Temperature 98.6 F (units (unknown) date) 96.8 F L 96.7 F L unknown) (unknown) (no (unknown) (unknown) Time Seen by (units (u nknown) date) Provider: 01/26/22 unknown) 19:49 (unknown) (no (unknown) (unknown) Total Bilirubin (units (unknown) date) (0.2-1.3) mg/dL unknown) (unknown) (no (unknown) (unknown) Total Bilirubin 1.5 (unit s (unknown) date) H (0.2-1.3) mg/dL unknown) (unknown) (no (unknown) (unknown) Total Protein (units ( unknown) date) (6.3-8.2) g/dL unknown) (unknown) (no (unknown) (unknown) Total Protein 7.1 (units (unknown) date) (6.3-8.2) g/dL unknown) (unknown) (no (unknown) (unknown) Type and Screen Stat (uni ts (unknown) date) unknown) (unknown) (no (unknown) (unknown) U-100 Insulin) (units (unknown) date) unknown) (unknown) (no (unknown) (unknown) Urine Microscopic (units (unknown) date) Stat unknown) (unknown) (no (unknown) (unknown) Urine Specific (units (unknown) date) [place] 1.02 unknown) (unknown) (no (unknown) (unknown) VITAMIN D (Vitamin (units (unknown) date) D3) ##0 07/08/12 unknown) (unknown) (no (unknown) (unknown) Vancomycin HCl (units (unknown) date) (Vancomycin Per unknown) Pharmacy) [place] [facility] [place] ([place]) (no (unknown) (unknown) Vancomycin (units (unk nown) date) HCl/Dextrose unknown) (Vancomycin) 1,500 mg in 300 mls @ 200 mls/hr IV NOW (unknown) (no (unknown) (unknown) Vital Signs (units (un known) date) unknown) (unknown) (no (unknown) (unknown) Vital signs: (units (u nknown) date) unknown) (unknown) (no (unknown) (unknown) XR chest 1V Stat (units (unknown) date) unknown) (unknown) (no (unknown) (unknown) [Embedded Image Not (unit s (unknown) date) Available] unknown) (unknown) (no (unknown) (unknown) a med list that was (units (unknown) date) printed out from the unknown) end of December it looks like it could have (unknown) (no (unknown) (unknown) alcohol intake (units (unknown) date) frequency: unknown) holidays/special occasions only (unknown) (no (unknown) (unknown) allopurinol 100 mg (units (unknown) date) tablet 100 mg PO BID unknown) 11/15/19 11/15/19 (unknown) (no (unknown) (unknown) aspect of his left (units (unknown) date) lower leg that is unknown) abrading into the top of his foot and has a (unknown) (no (unknown) (unknown) aspirin 81 mg (units ( unknown) date) chewable tablet 81 mg unknown) PO QDAY ##0 07/08/12 11/15/19 (unknown) (no (unknown) (unknown) atorvastatin 20 mg (units (unknown) date) tablet 20 mg PO DAILY unknown) 11/15/19 11/15/19 (unknown) (no (unknown) (unknown) been associated with (unit s (unknown) date) [facility] and looks like it may be from (unknown) (no (unknown) (unknown) carbidopa 25 (units (u nknown) date) mg-levodopa 100 mg 1 unknown) tab PO BEDTIME RLS 11/15/19 11/15/19 (unknown) (no (unknown) (unknown) carvedilol 12.5 mg (units (unknown) date) tablet 12.5 mg PO BID unknown) 11/15/19 11/15/19 (unknown) (no (unknown) (unknown) completely aware?. (units (unknown) date) No additional history unknown) is yet available available. There is (unknown) (no (unknown) (unknown) congestive heart (units (unknown) date) failure, history of unknown) B-cell lymphoma. his son called 911 today (unknown) (no (unknown) (unknown) creatinine change (units (unknown) date) from 1.63 on January unknown) 15 (unknown) (no (unknown) (unknown) cyclobenzaprine 10 (units (unknown) date) mg tablet 10 mg PO unknown) TID 11/15/19 11/15/19 (unknown) (no (unknown) (unknown) details: x 9 (uni ts (unknown) date) months unknown) (unknown) (no (unknown) (unknown) developing mild (units (unknown) date) erythema. Left knee unknown) with a very large bulla/hematoma on the (unknown) (no (unknown) (unknown) diabetes. With this (unit s (unknown) date) admission he was unknown) noted to be ?a bright adult elderly (unknown) (no (unknown) (unknown) discontinued (units (u nknown) date) reportedly no fevers unknown) chills new new injury or fall. He was seen (unknown) (no (unknown) (unknown) echocardiogram and (units (unknown) date) cardioversion for unknown) atrial fibrillation. Was discharged home (unknown) (no (unknown) (unknown) excoriation on the (units (unknown) date) medial aspect of his unknown) foot from the splint as well. (unknown) (no (unknown) (unknown) ferrous gluconate 324 (uni ts (unknown) date) mg, glargine insulin, unknown) metformin, omeprazole, Mirapex 0.125 (unknown) (no (unknown) (unknown) ferrous sulfate (units (unknown) date) Allergy Muscle Pain unknown) Verified 11/14/19 20:28 (unknown) (no (unknown) (unknown) fully assess. It (units (unknown) date) clearly is more than unknown) a couple of days old appears exacerbated (unknown) (no (unknown) (unknown) gabapentin Allergy (units (unknown) date) Confusion Verified unknown) 11/14/19 20:28 (unknown) (no (unknown) (unknown) gentleman? (units (unk nown) date) unknown) (unknown) (no (unknown) (unknown) has a piece of (units (unknown) date) fiberglass casting unknown) material extending from the medial malleolus (unknown) (no (unknown) (unknown) have a significantly (uni ts (unknown) date) elevated white blood unknown) cell count. He does have significant (unknown) (no (unknown) (unknown) he had a CT scan (units (unknown) date) that showed hematoma unknown) but no fractures his anticoagulation was (unknown) (no (unknown) (unknown) him as alert and (units (unknown) date) oriented x3 no acute unknown) distress. ER note says that a fiberglass (unknown) (no (unknown) (unknown) hospitalization and (unit s (unknown) date) some from his very unknown) frail skin. Area of excoriation on the (unknown) (no (unknown) (unknown) household members: (units (unknown) date) significant other unknown) (unknown) (no (unknown) (unknown) hydrochlorothiazide (unit s (unknown) date) 25 mg tablet 50 mg PO unknown) QDAY ##0 07/08/12 (unknown) (no (unknown) (unknown) hypertension, (units ( unknown) date) hyperlipidemia, unknown) diabetes, cognitive decline, hyperlipidemia, (unknown) (no (unknown) (unknown) hypotensive found to (unit s (unknown) date) be significantly unknown) anemic, presumably secondary to blood loss (unknown) (no (unknown) (unknown) if not caused from (units (unknown) date) the splint that had unknown) been in place. There is an area of (unknown) (no (unknown) (unknown) injector (Ozempic) (units (unknown) date) unknown) (unknown) (no (unknown) (unknown) insulin glargine 100 (uni ts (unknown) date) unit/mL 100 unit SQ unknown) DAILY ##0 07/08/12 11/15/19 (unknown) (no (unknown) (unknown) intramuscular oil (units (unknown) date) unknown) (unknown) (no (unknown) (unknown) is not in any pain (units (unknown) date) at this time. unknown) (unknown) (no (unknown) (unknown) left forearm with a (unit s (unknown) date) small area of unknown) ulceration without underlying abscess (unknown) (no (unknown) (unknown) lisinopril 20 mg (units (unknown) date) tablet 10 mg PO QDAY unknown) ##0 07/08/12 11/15/19 (unknown) (no (unknown) (unknown) long-leg posterior (units (unknown) date) splint was applied on unknown) arrival in the emergency department he (unknown) (no (unknown) (unknown) marital status: (units (unknown) date) unknown) (unknown) (no (unknown) (unknown) medial aspect it (units (unknown) date) does not appear to be unknown) intra-articular but it is difficult to (unknown) (no (unknown) (unknown) membranes (units (unkn own) date) unknown) (unknown) (no (unknown) (unknown) mg, allopurinol, (units (unknown) date) amiodarone 200 mg, unknown) atorvastatin 40 mg, duloxetine 30 mg, (unknown) (no (unknown) (unknown) mg/1.5 mL) (units (unk nown) date) subcutaneous pen unknown) (unknown) (no (unknown) (unknown) motion at the knee. (unit s (unknown) date) He also has a unknown) dressing in place on the left forearm with (unknown) (no (unknown) (unknown) multiple bruises all (unit s (unknown) date) over. He is pale but unknown) not complaining of headache. He will (unknown) (no (unknown) (unknown) not tachypneic and (units (unknown) date) is able to speak in unknown) full sentences (unknown) (no (unknown) (unknown) omeprazole 40 mg (units (unknown) date) capsule,delayed 40 mg unknown) PO DAILY ##0 07/08/12 11/15/19 (unknown) (no (unknown) (unknown) open his eyes to (units (unknown) date) command but not unknown) oriented to person time place it. He states he (unknown) (no (unknown) (unknown) oxycodone 10 mg (units (unknown) date) tablet,crush 10 mg PO unknown) BID 11/15/19 11/15/19 (unknown) (no (unknown) (unknown) paroxysmal atrial (units (unknown) date) fibrillation unknown) anticoagulated on rivaroxaban, post TAVR, (unknown) (no (unknown) (unknown) refill both lower (units (unknown) date) extremities. unknown) (unknown) (no (unknown) (unknown) release (units (unkno wn) date) unknown) (unknown) (no (unknown) (unknown) remove the splint in (uni ts (unknown) date) 2-3 days. unknown) (unknown) (no (unknown) (unknown) resistant,extended (units (unknown) date) release 12 hr unknown) (unknown) (no (unknown) (unknown) return he is found (units (unknown) date) to be dramatically unknown) anemic with acute kidney injury with (unknown) (no (unknown) (unknown) rivaroxaban 20 mg (units (unknown) date) tablet (Xarelto) 20 unknown) mg PO DAILY 11/14/19 11/14/19 (unknown) (no (unknown) (unknown) semaglutide 0.25 mg (unit s (unknown) date) or 0.5 mg (2 0.25 mg unknown) SUBCUT QWEEK 11/15/19 11/15/19 (unknown) (no (unknown) (unknown) significant abrasion (uni ts (unknown) date) with large hematoma unknown) to the medial aspect of his left knee (unknown) (no (unknown) (unknown) sildenafil 100 mg (units (unknown) date) tablet 100 mg PO unknown) DAILY PRN Sexual Activity 11/15/19 11/15/19 (unknown) (no (unknown) (unknown) skin irritation (units (unknown) date) inferiorly am unknown) concerned that the medial hematoma may be infected (unknown) (no (unknown) (unknown) spironolactone 25 (units (unknown) date) mg, torsemide 20 mg, unknown) Jardiance, lisinopril 2.5 mg, Xarelto 15 (unknown) (no (unknown) (unknown) subcutaneous (units (u nknown) date) solution (Lantus unknown) (unknown) (no (unknown) (unknown) superiorly and (units (unknown) date) inferiorly. Was unknown) discharged with pain control instructions to (unknown) (no (unknown) (unknown) tablet (units (unkno wn) date) unknown) (unknown) (no (unknown) (unknown) testosterone (units (u nknown) date) cypionate 200 mg/mL unknown) ##0 07/08/12 (unknown) (no (unknown) (unknown) the following day (units (unknown) date) with complaints of unknown) increasing pain. Physical exam describes (unknown) (no (unknown) (unknown) to have heart (units ( unknown) date) failure, paroxysmal unknown) atrial fibrillation, coronary disease, (unknown) (no (unknown) (unknown) to his son's house (units (unknown) date) on aspirin, unknown) clopidogrel, metoprolol succinate 50 mg, (unknown) (no (unknown) (unknown) to the distal knee, (unit s (unknown) date) not crossing any unknown) joint and causing significant irritation (unknown) (no (unknown) (unknown) transfuse [Packed (units (unknown) date) Cells] Stat unknown) (unknown) (no (unknown) (unknown) unchecked. (units (unk nown) date) unknown) (unknown) (no (unknown) (unknown) underlying skin (units (unknown) date) irritation shallow unknown) ulceration and developing cellulitis, (unknown) (no (unknown) (unknown) underwent PCI of the (uni ts (unknown) date) distal right coronary unknown) artery, had a transesophageal (unknown) (no (unknown) (unknown) ventricular ejection (uni ts (unknown) date) fraction at 15% with unknown) volume overload and tachycardia. He (unknown) (no (unknown) (unknown) with concerns for (units (unknown) date) his overall unknown) well-being and concerned that ?times he is not (unknown) (no (unknown) (unknown) with bruising (units ( unknown) date) extending proximal unknown) and distal from his knee with minimal range of (unknown) (no (unknown) (unknown) zolpidem [From (units (unknown) date) Ambien] Allergy unknown) Confusion Verified 11/14/19 20:28 Result panel 28 (unknown) (no (unknown) (unknown) Qty: 0 (units (unkno wn) date) unknown) (unknown) (no (unknown) (unknown) (no value) (units (unk nown) date) unknown) (unknown) (no (unknown) (unknown) Date of Service: (units (unknown) date) 01/26/22 unknown) (unknown) (no (unknown) (unknown) (no value) (units (unk nown) date) unknown) (unknown) (no (unknown) (unknown) 0.25 mg SUBCUT QWEEK (uni ts (unknown) date) unknown) (unknown) (no (unknown) (unknown) 01/26/22 19:40 (units (unknown) date) unknown) (unknown) (no (unknown) (unknown) 1 tab PO BEDTIME (units (unknown) date) unknown) (unknown) (no (unknown) (unknown) 1,275 mg PO BID Qty: (uni ts (unknown) date) 0 unknown) (unknown) (no (unknown) (unknown) 10 mg PO BID (units (u nknown) date) unknown) (unknown) (no (unknown) (unknown) 10 mg PO QDAY Qty: 0 (uni ts (unknown) date) unknown) (unknown) (no (unknown) (unknown) 10 mg PO TID (units (u nknown) date) unknown) (unknown) (no (unknown) (unknown) 100 mg PO BID (units ( unknown) date) unknown) (unknown) (no (unknown) (unknown) 100 mg PO DAILY PRN (unit s (unknown) date) (Reason: Sexual unknown) Activity) (unknown) (no (unknown) (unknown) 100 unit SQ DAILY (units (unknown) date) Qty: 0 unknown) (unknown) (no (unknown) (unknown) 12.5 mg PO BID (units (unknown) date) unknown) (unknown) (no (unknown) (unknown) 20 mg PO DAILY (units (unknown) date) unknown) (unknown) (no (unknown) (unknown) 40 mg PO DAILY Qty: (unit s (unknown) date) 0 unknown) (unknown) (no (unknown) (unknown) 50 mg PO QDAY Qty: 0 (uni ts (unknown) date) unknown) (unknown) (no (unknown) (unknown) 81 mg PO QDAY Qty: 0 (uni ts (unknown) date) unknown) (unknown) (no (unknown) (unknown) Admin: 01/26/22 (units (unknown) date) 20:35 Dose: 1,000 unknown) mls/hr (unknown) (no (unknown) (unknown) Admin: 01/26/22 (units (unknown) date) 20:35 Dose: 200 unknown) mls/hr (unknown) (no (unknown) (unknown) Admin: 01/26/22 (units (unknown) date) 20:36 Dose: 1,000 unknown) mls/hr (unknown) (no (unknown) (unknown) Admin: 01/26/22 (units (unknown) date) 21:32 Dose: 200 unknown) mls/hr (unknown) (no (unknown) (unknown) Allergies (units (unkn own) date) unknown) (unknown) (no (unknown) (unknown) Documented By: KH (units (unknown) date) unknown) (unknown) (no (unknown) (unknown) Documented By: OW (units (unknown) date) unknown) (unknown) (no (unknown) (unknown) Documented By: ZGG (units (unknown) date) unknown) (unknown) (no (unknown) (unknown) ED Orders (units (unkn own) date) unknown) (unknown) (no (unknown) (unknown) Emergency Report (units (unknown) date) unknown) (unknown) (no (unknown) (unknown) Home Medications (units (unknown) date) unknown) (unknown) (no (unknown) (unknown) Infusion: 01/26/22 (units (unknown) date) 21:00 Dose: 0 mls/hr unknown) (unknown) (no (unknown) (unknown) [facility] [id number] (uni ts (unknown) date) [address] unknown) [place] [address] (unknown) (no (unknown) (unknown) Lab Results (units (un known) date) unknown) (unknown) (no (unknown) (unknown) Last Admin: 01/26/22 (uni ts (unknown) date) 22:33 Dose: Not Given unknown) (unknown) (no (unknown) (unknown) Last Infusion: (units (unknown) date) 01/26/22 21:00 Dose: unknown) 200 mls/hr (unknown) (no (unknown) (unknown) Last Infusion: (units (unknown) date) 01/26/22 22:33 Dose: unknown) 0 mls/hr (unknown) (no (unknown) (unknown) Last Infusion: (units (unknown) date) 01/26/22 22:34 Dose: unknown) 0 mls/hr (unknown) (no (unknown) (unknown) Stop: 01/26/22 20:08 (uni ts (unknown) date) unknown) (unknown) (no (unknown) (unknown) Stop: 01/26/22 20:51 (uni ts (unknown) date) unknown) (unknown) (no (unknown) (unknown) Stop: 01/26/22 21:09 (uni ts (unknown) date) unknown) (unknown) (no (unknown) (unknown) Stop: 01/26/22 22:14 (uni ts (unknown) date) unknown) (unknown) (no (unknown) (unknown) Urine Dip (units (unkn own) date) unknown) (unknown) (no (unknown) (unknown) Vital Signs - 8 hr (units (unknown) date) unknown) (unknown) (no (unknown) (unknown) (no value) (units (unk nown) date) unknown) (unknown) (no (unknown) (unknown) 01/26/22 01/26/22 (units (unknown) date) 01/26/22 Range/Units unknown) (unknown) (no (unknown) (unknown) 01/26/22 01/26/22 (units (unknown) date) Range/Units unknown) (unknown) (no (unknown) (unknown) 19:40 19:40 19:40 (units (unknown) date) unknown) (unknown) (no (unknown) (unknown) 20:21 20:47 (units (un known) date) unknown) (unknown) (no (unknown) (unknown) Lantus U-100 Insulin (uni ts (unknown) date) 100 UNIT/1 ML unknown) solution (unknown) (no (unknown) (unknown) Metformin (units (unkn own) date) Hydrochloride unknown) (GLUCOPHAGE) (unknown) (no (unknown) (unknown) Ozempic 0.25 mg or (units (unknown) date) 0.5 mg(2 mg/1.5 mL) unknown) Pen Injector (unknown) (no (unknown) (unknown) VITAMIN D (Vitamin (units (unknown) date) D3) unknown) (unknown) (no (unknown) (unknown) Xarelto 20 mg tablet (uni ts (unknown) date) unknown) (unknown) (no (unknown) (unknown) allopurinol 100 mg (units (unknown) date) Tablet unknown) (unknown) (no (unknown) (unknown) aspirin 81 MG (units ( unknown) date) tablet,chewable unknown) (unknown) (no (unknown) (unknown) atorvastatin 20 mg (units (unknown) date) Tablet unknown) (unknown) (no (unknown) (unknown) carbidopa-levodopa (units (unknown) date) 25-100 mg Tablet unknown) (unknown) (no (unknown) (unknown) carvedilol 12.5 mg (units (unknown) date) Tablet unknown) (unknown) (no (unknown) (unknown) cyclobenzaprine 10 (units (unknown) date) mg Tablet unknown) (unknown) (no (unknown) (unknown) hydrochlorothiazide (unit s (unknown) date) 25 MG tablet unknown) (unknown) (no (unknown) (unknown) lisinopril 20 MG (units (unknown) date) tablet unknown) (unknown) (no (unknown) (unknown) omeprazole 40 MG (units (unknown) date) capsule,delayed unknown) release(DR/EC) (unknown) (no (unknown) (unknown) oxycodone 10 mg (units (unknown) date) tablet,oral unknown) only,ext.rel.12 hr (unknown) (no (unknown) (unknown) sildenafil 100 mg (units (unknown) date) Tablet unknown) (unknown) (no (unknown) (unknown) testosterone (units (u nknown) date) cypionate unknown) [Depo-Testosterone] 200 MG/1 ML oil (unknown) (no (unknown) (unknown) 01/26/22 (units (unkno wn) date) unknown) (unknown) (no (unknown) (unknown) CT of the a lower (units (unknown) date) extremity in knee unknown) shows a large irregular medial soft tissue (unknown) (no (unknown) (unknown) He is weak, (units (un known) date) confused, cooperative unknown) he has an ortho glass splint on the medial (unknown) (no (unknown) (unknown) Medication (units (unk nown) date) Instructions Recorded unknown) Confirmed (unknown) (no (unknown) (unknown) any also has skin (units (unknown) date) irritation and unknown) developing cellulitis in the left forearm with (unknown) (no (unknown) (unknown) catheterization and (unit s (unknown) date) had PCI of the distal unknown) right coronary artery and also found (unknown) (no (unknown) (unknown) dressings that (units (unknown) date) appear to been in unknown) place for a number of days and unchanged and (unknown) (no (unknown) (unknown) failure (units (unkno wn) date) unknown) (unknown) (no (unknown) (unknown) he was seen at (units (unknown) date) [facility] on unknown) January 23 and with a ground level fall (unknown) (no (unknown) (unknown) injuring his left (units (unknown) date) knee that had unknown) occurred on or about January 20. On the (unknown) (no (unknown) (unknown) into they large (units (unknown) date) hematoma on the unknown) medial aspect of the left knee. He does not (unknown) (no (unknown) (unknown) mg nightly and as (units (unknown) date) needed nitroglycerin. unknown) (unknown) (no (unknown) (unknown) (Depo-Testosterone) (unit s (unknown) date) unknown) (unknown) (no (unknown) (unknown) (GLUCOPHAGE) (units (u nknown) date) unknown) (unknown) (no (unknown) (unknown) 01/26/22 19:40 (units (unknown) date) unknown) (unknown) (no (unknown) (unknown) 01/26/22 19:45 (units (unknown) date) unknown) (unknown) (no (unknown) (unknown) 01/26/22 19:52 (units (unknown) date) unknown) (unknown) (no (unknown) (unknown) 01/26/22 20:07 (units (unknown) date) unknown) (unknown) (no (unknown) (unknown) 01/26/22 20:09 (units (unknown) date) unknown) (unknown) (no (unknown) (unknown) 01/26/22 20:15 (units (unknown) date) unknown) (unknown) (no (unknown) (unknown) 01/26/22 20:21 (units (unknown) date) unknown) (unknown) (no (unknown) (unknown) 01/26/22 20:47 (units (unknown) date) unknown) (unknown) (no (unknown) (unknown) 01/26/22 21:56 (units (unknown) date) unknown) (unknown) (no (unknown) (unknown) 19:44 01/26/22 (units (unknown) date) unknown) (unknown) (no (unknown) (unknown) 20:34 01/26/22 (units (unknown) date) unknown) (unknown) (no (unknown) (unknown) 20:41 (units (unkno wn) date) unknown) (unknown) (no (unknown) (unknown) 21:00 01/26/22 (units (unknown) date) unknown) (unknown) (no (unknown) (unknown) 21:25 (units (unkno wn) date) unknown) (unknown) (no (unknown) (unknown) 21:25 01/26/22 (units (unknown) date) unknown) (unknown) (no (unknown) (unknown) 21:30 (units (unkno wn) date) unknown) (unknown) (no (unknown) (unknown) 21:30 01/26/22 (units (unknown) date) unknown) (unknown) (no (unknown) (unknown) 21:45 (units (unkno wn) date) unknown) (unknown) (no (unknown) (unknown) 21:45 01/26/22 (units (unknown) date) unknown) (unknown) (no (unknown) (unknown) 22:00 01/26/22 (units (unknown) date) unknown) (unknown) (no (unknown) (unknown) 22:15 (units (unkno wn) date) unknown) (unknown) (no (unknown) (unknown) 22:15 01/26/22 (units (unknown) date) unknown) (unknown) (no (unknown) (unknown) 22:30 (units (unkno wn) date) unknown) (unknown) (no (unknown) (unknown) 22:30 01/26/22 (units (unknown) date) unknown) (unknown) (no (unknown) (unknown) 22:35 01/26/22 (units (unknown) date) unknown) (unknown) (no (unknown) (unknown) 22:36 01/26/22 (units (unknown) date) unknown) (unknown) (no (unknown) (unknown) 22:45 (units (unkno wn) date) unknown) (unknown) (no (unknown) (unknown) 22:45 01/26/22 (units (unknown) date) unknown) (unknown) (no (unknown) (unknown) 22:50 (units (unkno wn) date) unknown) (unknown) (no (unknown) (unknown) 22:51 01/26/22 (units (unknown) date) unknown) (unknown) (no (unknown) (unknown) 23:00 01/26/22 (units (unknown) date) unknown) (unknown) (no (unknown) (unknown) 23:01 (units (unkno wn) date) unknown) (unknown) (no (unknown) (unknown) 23:01 01/26/22 (units (unknown) date) unknown) (unknown) (no (unknown) (unknown) 23:04 01/26/22 (units (unknown) date) unknown) (unknown) (no (unknown) (unknown) 23:07 (units (unkno wn) date) unknown) (unknown) (no (unknown) (unknown) 23:15 (units (unkno wn) date) unknown) (unknown) (no (unknown) (unknown) 23:15 01/26/22 (units (unknown) date) unknown) (unknown) (no (unknown) (unknown) 23:30 01/26/22 (units (unknown) date) unknown) (unknown) (no (unknown) (unknown) 23:45 (units (unkno wn) date) unknown) (unknown) (no (unknown) (unknown) [id number] (units (unkno wn) date) unknown) (unknown) (no (unknown) (unknown) 76-year-old (units (un known) date) gentleman with a unknown) history of coronary artery disease post CABG x4, (unknown) (no (unknown) (unknown) ALT (<50) IU/L (units (unknown) date) unknown) (unknown) (no (unknown) (unknown) ALT 27 (<50) IU/L (units (unknown) date) unknown) (unknown) (no (unknown) (unknown) AST (17-59) IU/L (units (unknown) date) unknown) (unknown) (no (unknown) (unknown) AST 28 (17-59) IU/L (unit s (unknown) date) unknown) (unknown) (no (unknown) (unknown) Abdomen: Soft, mild (unit s (unknown) date) distention but unknown) nontender, good bowel tones, no flank pain (unknown) (no (unknown) (unknown) Age/Sex: 76 / M (units (unknown) date) unknown) (unknown) (no (unknown) (unknown) Albumin (3.5-5.0) (units (unknown) date) g/dL unknown) (unknown) (no (unknown) (unknown) Albumin 3.6 (units (un known) date) (3.5-5.0) g/dL unknown) (unknown) (no (unknown) (unknown) Albumin/Globulin (units (unknown) date) Ratio (1.0-2.8) unknown) (unknown) (no (unknown) (unknown) Albumin/Globulin (units (unknown) date) Ratio 1.0 (1.0-2.8) unknown) (unknown) (no (unknown) (unknown) Alkaline Phosphatase (uni ts (unknown) date) (38-126) U/L unknown) (unknown) (no (unknown) (unknown) Alkaline Phosphatase (uni ts (unknown) date) 170 H (38-126) U/L unknown) (unknown) (no (unknown) (unknown) Allergy/AdvReac Type (uni ts (unknown) date) Severity Reaction unknown) Status Date / Time (unknown) (no (unknown) (unknown) Anisocytosis (units (u nknown) date) unknown) (unknown) (no (unknown) (unknown) Anisocytosis 3+ H (units (unknown) date) unknown) (unknown) (no (unknown) (unknown) Anti-Inflamma (units ( unknown) date) disease unknown) (unknown) (no (unknown) (unknown) Antibody Screen (units (unknown) date) unknown) (unknown) (no (unknown) (unknown) Antibody Screen (units (unknown) date) Negative unknown) (unknown) (no (unknown) (unknown) Atrial fibrillation (unit s (unknown) date) unknown) (unknown) (no (unknown) (unknown) January 06. 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 (unknown) (no (unknown) (unknown) BUN (9-20) mg/dL (units (unknown) date) unknown) (unknown) (no (unknown) (unknown) BUN 61 H (9-20) (units (unknown) date) mg/dL unknown) (unknown) (no (unknown) (unknown) BUN/Creatinine Ratio (uni ts (unknown) date) (6-22) unknown) (unknown) (no (unknown) (unknown) BUN/Creatinine Ratio (uni ts (unknown) date) 19.2 (6-22) unknown) (unknown) (no (unknown) (unknown) Baso # (Auto) (units ( unknown) date) (0-100) /uL unknown) (unknown) (no (unknown) (unknown) Baso # (Auto) 100 (units (unknown) date) (0-100) /uL unknown) (unknown) (no (unknown) (unknown) Baso % (Auto) (0-2) (unit s (unknown) date) % unknown) (unknown) (no (unknown) (unknown) Baso % (Auto) 1.0 (units (unknown) date) (0-2) % unknown) (unknown) (no (unknown) (unknown) Bedside Urine (units ( unknown) date) Bilirubin - Negative unknown) (unknown) (no (unknown) (unknown) Bedside Urine (units ( unknown) date) Glucose 500 mg/dl unknown) (unknown) (no (unknown) (unknown) Bedside Urine Ketone (uni ts (unknown) date) - Negative unknown) (unknown) (no (unknown) (unknown) Bedside Urine (units ( unknown) date) Leukocytes +/- 15 unknown) (unknown) (no (unknown) (unknown) Bedside Urine (units ( unknown) date) Nitrite - Negative unknown) (unknown) (no (unknown) (unknown) Bedside Urine Occult (uni ts (unknown) date) Blood +/- unknown) (unknown) (no (unknown) (unknown) Bedside Urine (units ( unknown) date) Protein - Negative unknown) (unknown) (no (unknown) (unknown) Bedside Urine (units ( unknown) date) Urobilinogen - unknown) Negative (unknown) (no (unknown) (unknown) Bedside Urine pH 5.5 (uni ts (unknown) date) unknown) (unknown) (no (unknown) (unknown) Blood Culture Stat (units (unknown) date) unknown) (unknown) (no (unknown) (unknown) Blood Pressure (units (unknown) date) 102/52 L 98/52 L unknown) (unknown) (no (unknown) (unknown) Blood Pressure 78/54 (uni ts (unknown) date) L 01/26/22 19:44 unknown) (unknown) (no (unknown) (unknown) Blood Pressure 95/53 (uni ts (unknown) date) L unknown) (unknown) (no (unknown) (unknown) Blood Pressure 95/54 (uni ts (unknown) date) L unknown) (unknown) (no (unknown) (unknown) Blood Pressure 95/55 (uni ts (unknown) date) L unknown) (unknown) (no (unknown) (unknown) Blood Pressure (units (unknown) date) 102/53 L unknown) (unknown) (no (unknown) (unknown) Blood Pressure 78/54 (uni ts (unknown) date) L 102/52 L unknown) (unknown) (no (unknown) (unknown) Blood Pressure 90/50 (uni ts (unknown) date) L 92/51 L unknown) (unknown) (no (unknown) (unknown) Blood Pressure 94/46 (uni ts (unknown) date) L 95/55 L 98/52 L unknown) (unknown) (no (unknown) (unknown) Blood Pressure 96/53 (uni ts (unknown) date) L unknown) (unknown) (no (unknown) (unknown) Blood Pressure 97/52 (uni ts (unknown) date) L 101/54 L unknown) (unknown) (no (unknown) (unknown) Blood Pressure 98/52 (uni ts (unknown) date) L unknown) (unknown) (no (unknown) (unknown) Blood Pressure 98/52 (uni ts (unknown) date) L 95/54 L 95/50 L unknown) (unknown) (no (unknown) (unknown) Blood Pressure 98/52 (uni ts (unknown) date) L 97/52 L 102/53 L unknown) (unknown) (no (unknown) (unknown) Blood Type (units (unk nown) date) unknown) (unknown) (no (unknown) (unknown) Blood Type A (units (u nknown) date) Negative unknown) (unknown) (no (unknown) (unknown) COVID19 -Nasal (units (unknown) date) RAPID/Pre-Proc Stat unknown) (unknown) (no (unknown) (unknown) CT LE LT wo con Stat (uni ts (unknown) date) unknown) (unknown) (no (unknown) (unknown) CT head/brain wo con (uni ts (unknown) date) Stat unknown) (unknown) (no (unknown) (unknown) Calcium (8.4-10.2) (units (unknown) date) mg/dL unknown) (unknown) (no (unknown) (unknown) Calcium 8.4 (units (un known) date) (8.4-10.2) mg/dL unknown) (unknown) (no (unknown) (unknown) Carbon Dioxide (units (unknown) date) (22-32) mmol/L unknown) (unknown) (no (unknown) (unknown) Carbon Dioxide 27 (units (unknown) date) (22-32) mmol/L unknown) (unknown) (no (unknown) (unknown) Cardiac: Regular (units (unknown) date) rate and rhythm no unknown) murmurs no bruits (unknown) (no (unknown) (unknown) Chief complaint: (units (unknown) date) Skin/Abscess/Foreign unknown) Body (unknown) (no (unknown) (unknown) Chloride (98-107) (units (unknown) date) mmol/L unknown) (unknown) (no (unknown) (unknown) Chloride 97 L (units ( unknown) date) (98-107) mmol/L unknown) (unknown) (no (unknown) (unknown) Complete Blood Count (uni ts (unknown) date) AUTO DIFF Stat unknown) (unknown) (no (unknown) (unknown) Comprehensive (units ( unknown) date) Metabolic Panel Stat unknown) (unknown) (no (unknown) (unknown) Coronary artery (units (unknown) date) disease unknown) (unknown) (no (unknown) (unknown) Course (units (unkno wn) date) unknown) (unknown) (no (unknown) (unknown) Creatinine (units (unk nown) date) (0.66-1.25) mg/dL unknown) (unknown) (no (unknown) (unknown) Creatinine 3.18 H (units (unknown) date) (0.66-1.25) mg/dL unknown) (unknown) (no (unknown) (unknown) Crossmatch (units (unk nown) date) unknown) (unknown) (no (unknown) (unknown) Crossmatch See (units (unknown) date) Detail unknown) (unknown) (no (unknown) (unknown) : 1945 (units (unknown) date) Acct:[id number] unknown) (unknown) (no (unknown) (unknown) Departure (units (unkn own) date) unknown) (unknown) (no (unknown) (unknown) Diabetes (units (unkno wn) date) unknown) (unknown) (no (unknown) (unknown) Discharge Plan (units (unknown) date) unknown) (unknown) (no (unknown) (unknown) Discontinued (units (u nknown) date) Medications unknown) (unknown) (no (unknown) (unknown) Dyslipidemia (units (u nknown) date) unknown) (unknown) (no (unknown) (unknown) ECG Data (units (unkno wn) date) unknown) (unknown) (no (unknown) (unknown) EKG-12 Lead Stat (units (unknown) date) unknown) (unknown) (no (unknown) (unknown) ER Physician: (units ( unknown) date) Ashley Glynn MD unknown) (unknown) (no (unknown) (unknown) Eos # (Auto) (0-450) (uni ts (unknown) date) /uL unknown) (unknown) (no (unknown) (unknown) Eos # (Auto) 200 (units (unknown) date) (0-450) /uL unknown) (unknown) (no (unknown) (unknown) Eos % (Auto) (2-4) % (uni ts (unknown) date) unknown) (unknown) (no (unknown) (unknown) Eos % (Auto) 2.8 (units (unknown) date) (2-4) % unknown) (unknown) (no (unknown) (unknown) Esterase (units (unkno wn) date) unknown) (unknown) (no (unknown) (unknown) Estimated GFR (>60) (unit s (unknown) date) mL/min unknown) (unknown) (no (unknown) (unknown) Estimated GFR 19 L (units (unknown) date) (>60) mL/min unknown) (unknown) (no (unknown) (unknown) Exam (units (unkno wn) date) unknown) (unknown) (no (unknown) (unknown) Extremities: Left (units (unknown) date) leg is described unknown) under the skin exam. Reasonable capillary (unknown) (no (unknown) (unknown) Full and symmetrical (uni ts (unknown) date) air movement unknown) (unknown) (no (unknown) (unknown) General (units (unkno wn) date) unknown) (unknown) (no (unknown) (unknown) General: Chronically (unit s (unknown) date) ill-appearing, pale, unknown) weak but in no acute distress. He is (unknown) (no (unknown) (unknown) GenericComposite[Plt (uni ts (unknown) date) Count (150-400) unknown) X10^3/uL ] (unknown) (no (unknown) (unknown) GenericComposite[Plt (uni ts (unknown) date) Count 206 (150-400) unknown) X10^3/uL ] (unknown) (no (unknown) (unknown) GenericComposite[RBC (uni ts (unknown) date) (4.5-5.9) X10^6/uL ] unknown) (unknown) (no (unknown) (unknown) GenericComposite[RBC (uni ts (unknown) date) 2.75 L (4.5-5.9) unknown) X10^6/uL ] (unknown) (no (unknown) (unknown) GenericComposite[WBC (uni ts (unknown) date) (4.5-11.0) X10^3/uL ] unknown) (unknown) (no (unknown) (unknown) GenericComposite[WBC (uni ts (unknown) date) 7.1 (4.5-11.0) unknown) X10^3/uL ] (unknown) (no (unknown) (unknown) Globulin (1.7-4.1) (units (unknown) date) g/dL unknown) (unknown) (no (unknown) (unknown) Globulin 3.5 (units (u nknown) date) (1.7-4.1) g/dL unknown) (unknown) (no (unknown) (unknown) Glucose (80-110) (units (unknown) date) mg/dL unknown) (unknown) (no (unknown) (unknown) Glucose 130 H (units ( unknown) date) (80-110) mg/dL unknown) (unknown) (no (unknown) (unknown) HEENT: Moist mucous (unit s (unknown) date) membranes, normal unknown) sclera with reactive pupils, pale mucous (unknown) (no (unknown) (unknown) HPI - General Adult (unit s (unknown) date) unknown) (unknown) (no (unknown) (unknown) HPI narrative: (units (unknown) date) unknown) (unknown) (no (unknown) (unknown) Have spoken with his (uni ts (unknown) date) son and medical unknown) records are now available for review. (unknown) (no (unknown) (unknown) Hct (41-53) % (units ( unknown) date) unknown) (unknown) (no (unknown) (unknown) Hct 20.8 L* (41-53) (unit s (unknown) date) % unknown) (unknown) (no (unknown) (unknown) He was admitted at (units (unknown) date) [facility] on January unknown) through January 13 for elective heart (unknown) (no (unknown) (unknown) He was admitted at (units (unknown[phone]ensated [facility] (unknown) (no (unknown) (unknown) Hgb (13.5-17.5) g/dL (uni ts (unknown) date) unknown) (unknown) (no (unknown) (unknown) Hgb 6.7 L* (units (unk nown) date) (13.5-17.5) g/dL unknown) (unknown) (no (unknown) (unknown) His son noted him to (uni ts (unknown) date) be increasingly weak unknown) this morning and he comes in (unknown) (no (unknown) (unknown) History of Present (units (unknown) date) Illness unknown) (unknown) (no (unknown) (unknown) Hx of (units (unkno wn) date) cholecystectomy unknown) (unknown) (no (unknown) (unknown) Hypertension (units (u nknown) date) unknown) (unknown) (no (unknown) (unknown) IV NOW ONE (units (unk nown) date) unknown) (unknown) (no (unknown) (unknown) In the absence of (units (unknown) date) fever, leukocytosis, unknown) elevated lactic acid and alternative (unknown) (no (unknown) (unknown) Initial Vital Signs (unit s (unknown) date) unknown) (unknown) (no (unknown) (unknown) Initial Vital Signs: (uni ts (unknown) date) unknown) (unknown) (no (unknown) (unknown) Initial concern was (unit s (unknown) date) for sepsis and he was unknown) given Zosyn and vancomycin. As labs (unknown) (no (unknown) (unknown) Interpretation: (units (unknown) date) unknown) (unknown) (no (unknown) (unknown) Lab Data (units (unkno wn) date) unknown) (unknown) (no (unknown) (unknown) Labs: (units (unkno wn) date) unknown) (unknown) (no (unknown) (unknown) Lactate (0.7-2.1) (units (unknown) date) mmol/L unknown) (unknown) (no (unknown) (unknown) Lactate 1.3 (units (un known) date) (0.7-2.1) mmol/L unknown) (unknown) (no (unknown) (unknown) Lactate (Lactic (units (unknown) date) Acid) Stat unknown) (unknown) (no (unknown) (unknown) Lipase (23-300) U/L (unit s (unknown) date) unknown) (unknown) (no (unknown) (unknown) Lipase 135 (23-300) (uni ts (unknown) date) U/L unknown) (unknown) (no (unknown) (unknown) Lipase Stat (units (un known) date) unknown) (unknown) (no (unknown) (unknown) Lymph # (Auto) (units (unknown) date) (5287-1287) /uL unknown) (unknown) (no (unknown) (unknown) Lymph # (Auto) 800 L (uni ts (unknown) date) (7822-7144) /uL unknown) (unknown) (no (unknown) (unknown) Lymph % (Auto) (units (unknown) date) (25-40) % unknown) (unknown) (no (unknown) (unknown) Lymph % (Auto) 11.4 (unit s (unknown) date) L (25-40) % unknown) (unknown) (no (unknown) (unknown) MCH (26-34) PG (units (unknown) date) unknown) (unknown) (no (unknown) (unknown) MCH 24.6 L (26-34) (units (unknown) date) PG unknown) (unknown) (no (unknown) (unknown) MCHC (30-36) % (units (unknown) date) unknown) (unknown) (no (unknown) (unknown) MCHC 32.4 (30-36) % (unit s (unknown) date) unknown) (unknown) (no (unknown) (unknown) MCV (80-100) fL (units (unknown) date) unknown) (unknown) (no (unknown) (unknown) MCV 75.7 L (80-100) (unit s (unknown) date) fL unknown) (unknown) (no (unknown) (unknown) MDM Narrative (units ( unknown) date) unknown) (unknown) (no (unknown) (unknown) Medical Decision (units (unknown) date) Making unknown) (unknown) (no (unknown) (unknown) Medical History (units (unknown) date) (Updated 01/26/22 @ unknown) 20:14 by Ashley Glynn MD) (unknown) (no (unknown) (unknown) Medical decision (units (unknown) date) making narrative: unknown) (unknown) (no (unknown) (unknown) Metformin (units (unkn own) date) Hydrochloride 1,275 unknown) mg PO BID ##0 07/08/12 (unknown) (no (unknown) (unknown) Miscellaneous,Doctor (uni ts (unknown) date) , [Primary Care unknown) Provider] - (unknown) (no (unknown) (unknown) [place] # (Auto) (units ( unknown) date) (0-900) /uL unknown) (unknown) (no (unknown) (unknown) [place] # (Auto) 700 (units (unknown) date) (0-900) /uL unknown) (unknown) (no (unknown) (unknown) [place] % (Auto) (3-14) (uni ts (unknown) date) % unknown) (unknown) (no (unknown) (unknown) [place] % (Auto) 9.8 (units (unknown) date) (3-14) % unknown) (unknown) (no (unknown) (unknown) NSAIDS (units (unkno wn) date) (Non-Steroidal unknown) AdvReac Severe kidney Verified 11/14/19 20:28 (unknown) (no (unknown) (unknown) Neck: No JVD, supple (uni ts (unknown) date) unknown) (unknown) (no (unknown) (unknown) Neurologic: Globally (uni ts (unknown) date) weak but able to move unknown) all extremities (unknown) (no (unknown) (unknown) Neut # (Auto) (units ( unknown) date) (5250-5611) /uL unknown) (unknown) (no (unknown) (unknown) Neut # (Auto) 5400 (units (unknown) date) (4666-2634) /uL unknown) (unknown) (no (unknown) (unknown) Neut % (Auto) (units ( unknown) date) (50-75) % unknown) (unknown) (no (unknown) (unknown) Neut % (Auto) 75.0 (units (unknown) date) (50-75) % unknown) (unknown) (no (unknown) (unknown) No Action (units (unkn own) date) unknown) (unknown) (no (unknown) (unknown) ONE (units (unkno wn) date) unknown) (unknown) (no (unknown) (unknown) Ordered: (units (unkno wn) date) unknown) (unknown) (no (unknown) (unknown) Orders (units (unkno wn) date) unknown) (unknown) (no (unknown) (unknown) Oxygen Delivery (units (unknown) date) Method unknown) (unknown) (no (unknown) (unknown) Oxygen Delivery (units (unknown) date) Method 01/26/22 19:44 unknown) (unknown) (no (unknown) (unknown) Oxygen Delivery (units (unknown) date) Method unknown) (unknown) (no (unknown) (unknown) Oxygen Delivery (units (unknown) date) Method Room Air unknown) (unknown) (no (unknown) (unknown) Patient History (units (unknown) date) unknown) (unknown) (no (unknown) (unknown) Patient was (units (un known) date) discharged [facility] unknown[facility] for acute congestive heart failure on (unknown) (no (unknown) (unknown) Patient: (units (unkno wn) date) Osmel Baxter MR#: unknown) M000 (unknown) (no (unknown) (unknown) Piperacillin (units (u nknown) date) Sod/Tazobactam (Sod unknown) 4.5 gm/ Sodium Chloride) 100 mls @ 200 mls/hr (unknown) (no (unknown) (unknown) Point of care (units ( unknown) date) testing: unknown) (unknown) (no (unknown) (unknown) Potassium (3.4-5.1) (unit s (unknown) date) mmol/L unknown) (unknown) (no (unknown) (unknown) Potassium 4.3 (units ( unknown) date) (3.4-5.1) mmol/L unknown) (unknown) (no (unknown) (unknown) Prescriptions: (units (unknown) date) unknown) (unknown) (no (unknown) (unknown) Procalcitonin (<0.5) (uni ts (unknown) date) ng/mL unknown) (unknown) (no (unknown) (unknown) Procalcitonin 0.50 (units (unknown) date) (<0.5) ng/mL unknown) (unknown) (no (unknown) (unknown) Procalcitonin Stat (units (unknown) date) unknown) (unknown) (no (unknown) (unknown) Psych: Will respond (unit s (unknown) date) to yes or no unknown) questions but otherwise altered. (unknown) (no (unknown) (unknown) Pulse Oximetry (units (unknown) date) unknown) (unknown) (no (unknown) (unknown) Pulse Oximetry (units (unknown) date) unknown) (unknown) (no (unknown) (unknown) Pulse Oximetry 98 (units (unknown) date) unknown) (unknown) (no (unknown) (unknown) Pulse Oximetry 100 (units (unknown) date) unknown) (unknown) (no (unknown) (unknown) Pulse Oximetry 89 L (unit s (unknown) date) 98 unknown) (unknown) (no (unknown) (unknown) Pulse Oximetry 97 (units (unknown) date) unknown) (unknown) (no (unknown) (unknown) Pulse Oximetry 97 (units (unknown) date) 01/26/22 19:44 unknown) (unknown) (no (unknown) (unknown) Pulse Oximetry 97 99 (uni ts (unknown) date) unknown) (unknown) (no (unknown) (unknown) Pulse Oximetry 100 (units (unknown) date) 100 unknown) (unknown) (no (unknown) (unknown) Pulse Oximetry 100 (units (unknown) date) 99 unknown) (unknown) (no (unknown) (unknown) Pulse Oximetry 97 98 (uni ts (unknown) date) unknown) (unknown) (no (unknown) (unknown) Pulse Oximetry 99 (units (unknown) date) unknown) (unknown) (no (unknown) (unknown) Pulse Rate (units (unk nown) date) unknown) (unknown) (no (unknown) (unknown) Pulse Rate 61 62 (units (unknown) date) unknown) (unknown) (no (unknown) (unknown) Pulse Rate 63 (units ( unknown) date) unknown) (unknown) (no (unknown) (unknown) Pulse Rate 64 64 (units (unknown) date) unknown) (unknown) (no (unknown) (unknown) Pulse Rate 65 (units ( unknown) date) 01/26/22 19:44 unknown) (unknown) (no (unknown) (unknown) Pulse Rate 62 62 (units (unknown) date) unknown) (unknown) (no (unknown) (unknown) Pulse Rate 63 63 62 (unit s (unknown) date) unknown) (unknown) (no (unknown) (unknown) Pulse Rate 64 (units ( unknown) date) unknown) (unknown) (no (unknown) (unknown) Pulse Rate 64 63 (units (unknown) date) unknown) (unknown) (no (unknown) (unknown) Pulse Rate 64 64 (units (unknown) date) unknown) (unknown) (no (unknown) (unknown) Pulse Rate 64 62 62 (unit s (unknown) date) unknown) (unknown) (no (unknown) (unknown) Pulse Rate 64 64 65 (unit s (unknown) date) unknown) (unknown) (no (unknown) (unknown) Pulse Rate 65 65 64 (unit s (unknown) date) unknown) (unknown) (no (unknown) (unknown) RBC Morphology (units (unknown) date) unknown) (unknown) (no (unknown) (unknown) RBC Morphology Not (units (unknown) date) Reportable unknown) (unknown) (no (unknown) (unknown) RDW (11.6-14.8) % (units (unknown) date) unknown) (unknown) (no (unknown) (unknown) RDW 24.5 H (units (unk nown) date) (11.6-14.8) % unknown) (unknown) (no (unknown) (unknown) ROS Unobtainable: (units (unknown) date) Unobtainable due to unknown) mental condition (unknown) (no (unknown) (unknown) RT Consult Eval and (unit s (unknown) date) Treat NOW unknown) (unknown) (no (unknown) (unknown) Referrals: (units (unk nown) date) unknown) (unknown) (no (unknown) (unknown) Related Data (units (u nknown) date) unknown) (unknown) (no (unknown) (unknown) Respiratory Rate (units (unknown) date) unknown) (unknown) (no (unknown) (unknown) Respiratory Rate 15 (unit s (unknown) date) unknown) (unknown) (no (unknown) (unknown) Respiratory Rate 20 (unit s (unknown) date) 21 unknown) (unknown) (no (unknown) (unknown) Respiratory Rate 20 (unit s (unknown) date) 26 H unknown) (unknown) (no (unknown) (unknown) Respiratory Rate 21 (unit s (unknown) date) unknown) (unknown) (no (unknown) (unknown) Respiratory Rate 21 (unit s (unknown) date) 01/26/22 19:44 unknown) (unknown) (no (unknown) (unknown) Respiratory Rate 14 (unit s (unknown) date) 13 unknown) (unknown) (no (unknown) (unknown) Respiratory Rate 17 (unit s (unknown) date) unknown) (unknown) (no (unknown) (unknown) Respiratory Rate 18 (unit s (unknown) date) 14 21 unknown) (unknown) (no (unknown) (unknown) Respiratory Rate 18 (unit s (unknown) date) 15 18 unknown) (unknown) (no (unknown) (unknown) Respiratory Rate 19 (unit s (unknown) date) 16 unknown) (unknown) (no (unknown) (unknown) Respiratory Rate 20 (unit s (unknown) date) 24 unknown) (unknown) (no (unknown) (unknown) Respiratory Rate 20 (unit s (unknown) date) 12 18 unknown) (unknown) (no (unknown) (unknown) Respiratory Rate 21 (unit s (unknown) date) 17 17 unknown) (unknown) (no (unknown) (unknown) Respiratory: Lungs (units (unknown) date) are clear to unknown) auscultation, no wheezing no rales no rhonchi. (unknown) (no (unknown) (unknown) Result diagrams: (units (unknown) date) unknown) (unknown) (no (unknown) (unknown) Review of Systems (units (unknown) date) unknown) (unknown) (no (unknown) (unknown) S/P CABG x 4 (units (u nknown) date) unknown) (unknown) (no (unknown) (unknown) SARS-CoV-2 (PCR) (units (unknown) date) (Negative) unknown) (unknown) (no (unknown) (unknown) SARS-CoV-2 (PCR) (units (unknown) date) Negative (Negative) unknown) (unknown) (no (unknown) (unknown) [facility] who will (unit s (unknown) date) follow-up on this to unknown) see if additional records are present. (unknown) (no (unknown) (unknown) Signed By: (units (unk nown) date) unknown) (unknown) (no (unknown) (unknown) Sinus rhythm, left (units (unknown) date) bundle-branch block, unknown) no acute ischemic changes, rate of 67 (unknown) (no (unknown) (unknown) Skin: Pale, Warm and (uni ts (unknown) date) dry, multiple bruises unknown) some look like there from recent (unknown) (no (unknown) (unknown) Sleep apnea (units (un known) date) unknown) (unknown) (no (unknown) (unknown) Smoking Status: (units (unknown) date) Former smoker unknown) (unknown) (no (unknown) (unknown) Smoking Status: (units (unknown) date) Former smoker unknown) (unknown) (no (unknown) (unknown) Social History (units (unknown) date) (Updated 09/25/18 @ unknown) 11:17 by Telma Dickey DO) (unknown) (no (unknown) (unknown) Sodium (137-145) (units (unknown) date) mmol/L unknown) (unknown) (no (unknown) (unknown) Sodium 132 L (units (u nknown) date) (137-145) mmol/L unknown) (unknown) (no (unknown) (unknown) Sodium Chloride (units (unknown) date) (Normal Saline 0.9%) unknown) 1,000 mls @ 1,000 mls/hr IV BOLUS ONE (unknown) (no (unknown) (unknown) Stated complaint: (units (unknown) date) Dementia unknown) (unknown) (no (unknown) (unknown) Substance Use Type: (unit s (unknown) date) does not use unknown) (unknown) (no (unknown) (unknown) Surgical History (units (unknown) date) (Reviewed 11/15/19 @ unknown) 04:28 by MEKA Garcia) (unknown) (no (unknown) (unknown) Temperature (units (un known) date) unknown) (unknown) (no (unknown) (unknown) Temperature (units (un known) date) unknown) (unknown) (no (unknown) (unknown) Temperature 96.3 F L (uni ts (unknown) date) 96.8 F L unknown) (unknown) (no (unknown) (unknown) Temperature 97.7 F (units (unknown) date) 01/26/22 19:44 unknown) (unknown) (no (unknown) (unknown) Temperature 96.7 F L (uni ts (unknown) date) 96.5 F L unknown) (unknown) (no (unknown) (unknown) Temperature 97.7 F (units (unknown) date) 96.8 F L unknown) (unknown) (no (unknown) (unknown) Temperature 98.6 F (units (unknown) date) 96.8 F L 96.7 F L unknown) (unknown) (no (unknown) (unknown) Time Seen by (units (u nknown) date) Provider: 01/26/22 unknown) 19:49 (unknown) (no (unknown) (unknown) Total Bilirubin (units (unknown) date) (0.2-1.3) mg/dL unknown) (unknown) (no (unknown) (unknown) Total Bilirubin 1.5 (unit s (unknown) date) H (0.2-1.3) mg/dL unknown) (unknown) (no (unknown) (unknown) Total Protein (units ( unknown) date) (6.3-8.2) g/dL unknown) (unknown) (no (unknown) (unknown) Total Protein 7.1 (units (unknown) date) (6.3-8.2) g/dL unknown) (unknown) (no (unknown) (unknown) Type and Screen Stat (uni ts (unknown) date) unknown) (unknown) (no (unknown) (unknown) U-100 Insulin) (units (unknown) date) unknown) (unknown) (no (unknown) (unknown) Urine Microscopic (units (unknown) date) Stat unknown) (unknown) (no (unknown) (unknown) Urine Specific (units (unknown) date) [place] 1.02 unknown) (unknown) (no (unknown) (unknown) VITAMIN D (Vitamin (units (unknown) date) D3) ##0 07/08/12 unknown) (unknown) (no (unknown) (unknown) Vancomycin HCl (units (unknown) date) (Vancomycin Per unknown) Pharmacy) [place] [facility] [place] ([place]) (no (unknown) (unknown) Vancomycin (units (unk nown) date) HCl/Dextrose unknown) (Vancomycin) 1,500 mg in 300 mls @ 200 mls/hr IV NOW (unknown) (no (unknown) (unknown) Vital Signs (units (un known) date) unknown) (unknown) (no (unknown) (unknown) Vital signs: (units (u nknown) date) unknown) (unknown) (no (unknown) (unknown) XR chest 1V Stat (units (unknown) date) unknown) (unknown) (no (unknown) (unknown) [Embedded Image Not (unit s (unknown) date) Available] unknown) (unknown) (no (unknown) (unknown) a med list that was (units (unknown) date) printed out from the unknown) end of December it looks like it could have (unknown) (no (unknown) (unknown) alcohol intake (units (unknown) date) frequency: unknown) holidays/special occasions only (unknown) (no (unknown) (unknown) allopurinol 100 mg (units (unknown) date) tablet 100 mg PO BID unknown) 11/15/19 11/15/19 (unknown) (no (unknown) (unknown) and acute blood loss (uni ts (unknown) date) I do not believe this unknown) is sepsis. I have begun transfusion (unknown) (no (unknown) (unknown) and he has (units (unk nown) date) unknown) (unknown) (no (unknown) (unknown) aspect of his left (units (unknown) date) lower leg that is unknown) abrading into the top of his foot and has a (unknown) (no (unknown) (unknown) aspirin 81 mg (units ( unknown) date) chewable tablet 81 mg unknown) PO QDAY ##0 07/08/12 11/15/19 (unknown) (no (unknown) (unknown) atorvastatin 20 mg (units (unknown) date) tablet 20 mg PO DAILY unknown) 11/15/19 11/15/19 (unknown) (no (unknown) (unknown) been associated with (unit s (unknown) date) [facility] and looks like it may be from (unknown) (no (unknown) (unknown) carbidopa 25 (units (u nknown) date) mg-levodopa 100 mg 1 unknown) tab PO BEDTIME RLS 11/15/19 11/15/19 (unknown) (no (unknown) (unknown) carvedilol 12.5 mg (units (unknown) date) tablet 12.5 mg PO BID unknown) 11/15/19 11/15/19 (unknown) (no (unknown) (unknown) completely aware?. (units (unknown) date) No additional history unknown) is yet available available. There is (unknown) (no (unknown) (unknown) congestive heart (units (unknown) date) failure, history of unknown) B-cell lymphoma. his son called 911 today (unknown) (no (unknown) (unknown) creatinine change (units (unknown) date) from 1.63 on January unknown) to a creatinine of 3.18 today. Repeat (unknown) (no (unknown) (unknown) cyclobenzaprine 10 (units (unknown) date) mg tablet 10 mg PO unknown) TID 11/15/19 11/15/19 (unknown) (no (unknown) (unknown) details: x 9 (uni ts (unknown) date) months unknown) (unknown) (no (unknown) (unknown) developing mild (units (unknown) date) erythema. Left knee unknown) with a very large bulla/hematoma on the (unknown) (no (unknown) (unknown) diabetes. With this (unit s (unknown) date) admission he was unknown) noted to be ?a bright adult elderly (unknown) (no (unknown) (unknown) discontinued (units (u nknown) date) reportedly no fevers unknown) chills new new injury or fall. He was seen (unknown) (no (unknown) (unknown) echocardiogram and (units (unknown) date) cardioversion for unknown) atrial fibrillation. Was discharged home (unknown) (no (unknown) (unknown) excoriation on the (units (unknown) date) medial aspect of his unknown) foot from the splint as well. (unknown) (no (unknown) (unknown) explanation for (units (unknown) date) hypotension given his unknown) significant bleeding into the left knee (unknown) (no (unknown) (unknown) ferrous gluconate 324 (uni ts (unknown) date) mg, glargine insulin, unknown) metformin, omeprazole, Mirapex 0.125 (unknown) (no (unknown) (unknown) ferrous sulfate (units (unknown) date) Allergy Muscle Pain unknown) Verified 11/14/19 20:28 (unknown) (no (unknown) (unknown) fully assess. It (units (unknown) date) clearly is more than unknown) a couple of days old appears exacerbated (unknown) (no (unknown) (unknown) gabapentin Allergy (units (unknown) date) Confusion Verified unknown) 11/14/19 20:28 (unknown) (no (unknown) (unknown) gentleman? (units (unk nown) date) unknown) (unknown) (no (unknown) (unknown) has a piece of (units (unknown) date) fiberglass casting unknown) material extending from the medial malleolus (unknown) (no (unknown) (unknown) have a significantly (uni ts (unknown) date) elevated white blood unknown) cell count. He does have significant (unknown) (no (unknown) (unknown) he had a CT scan (units (unknown) date) that showed hematoma unknown) but no fractures his anticoagulation was (unknown) (no (unknown) (unknown) hematoma and likely (unit s (unknown) date) the source of acute unknown) blood loss (unknown) (no (unknown) (unknown) him as alert and (units (unknown) date) oriented x3 no acute unknown) distress. ER note says that a fiberglass (unknown) (no (unknown) (unknown) hospitalization and (unit s (unknown) date) some from his very unknown) frail skin. Area of excoriation on the (unknown) (no (unknown) (unknown) household members: (units (unknown) date) significant other unknown) (unknown) (no (unknown) (unknown) hydrochlorothiazide (unit s (unknown) date) 25 mg tablet 50 mg PO unknown) QDAY ##0 07/08/12 (unknown) (no (unknown) (unknown) hypertension, (units ( unknown) date) hyperlipidemia, unknown) diabetes, cognitive decline, hyperlipidemia, (unknown) (no (unknown) (unknown) hypotensive found to (unit s (unknown) date) be significantly unknown) anemic, presumably secondary to blood loss (unknown) (no (unknown) (unknown) if not caused from (units (unknown) date) the splint that had unknown) been in place. There is an area of (unknown) (no (unknown) (unknown) injector (Ozempic) (units (unknown) date) unknown) (unknown) (no (unknown) (unknown) insulin glargine 100 (uni ts (unknown) date) unit/mL 100 unit SQ unknown) DAILY ##0 07/08/12 11/15/19 (unknown) (no (unknown) (unknown) intramuscular oil (units (unknown) date) unknown) (unknown) (no (unknown) (unknown) is not in any pain (units (unknown) date) at this time. unknown) (unknown) (no (unknown) (unknown) left forearm with a (unit s (unknown) date) small area of unknown) ulceration without underlying abscess (unknown) (no (unknown) (unknown) lisinopril 20 mg (units (unknown) date) tablet 10 mg PO QDAY unknown) ##0 07/08/12 11/15/19 (unknown) (no (unknown) (unknown) long-leg posterior (units (unknown) date) splint was applied on unknown) arrival in the emergency department he (unknown) (no (unknown) (unknown) marital status: (units (unknown) date) unknown) (unknown) (no (unknown) (unknown) mass without (units (u nknown) date) extension to the unknown) underlying joint that clinically appears to be a (unknown) (no (unknown) (unknown) medial aspect it (units (unknown) date) does not appear to be unknown) intra-articular but it is difficult to (unknown) (no (unknown) (unknown) membranes (units (unkn own) date) unknown) (unknown) (no (unknown) (unknown) mg, allopurinol, (units (unknown) date) amiodarone 200 mg, unknown) atorvastatin 40 mg, duloxetine 30 mg, (unknown) (no (unknown) (unknown) mg/1.5 mL) (units (unk nown) date) subcutaneous pen unknown) (unknown) (no (unknown) (unknown) motion at the knee. (unit s (unknown) date) He also has a unknown) dressing in place on the left forearm with (unknown) (no (unknown) (unknown) multiple bruises all (unit s (unknown) date) over. He is pale but unknown) not complaining of headache. He will (unknown) (no (unknown) (unknown) not tachypneic and (units (unknown) date) is able to speak in unknown) full sentences (unknown) (no (unknown) (unknown) omeprazole 40 mg (units (unknown) date) capsule,delayed 40 mg unknown) PO DAILY ##0 07/08/12 11/15/19 (unknown) (no (unknown) (unknown) open his eyes to (units (unknown) date) command but not unknown) oriented to person time place it. He states he (unknown) (no (unknown) (unknown) oxycodone 10 mg (units (unknown) date) tablet,crush 10 mg PO unknown) BID 11/15/19 11/15/19 (unknown) (no (unknown) (unknown) paroxysmal atrial (units (unknown) date) fibrillation unknown) anticoagulated on rivaroxaban, post TAVR, (unknown) (no (unknown) (unknown) refill both lower (units (unknown) date) extremities. unknown) (unknown) (no (unknown) (unknown) release (units (unkno wn) date) unknown) (unknown) (no (unknown) (unknown) remove the splint in (uni ts (unknown) date) 2-3 days. unknown) (unknown) (no (unknown) (unknown) resistant,extended (units (unknown) date) release 12 hr unknown) (unknown) (no (unknown) (unknown) return he is found (units (unknown) date) to be dramatically unknown) anemic with acute kidney injury with (unknown) (no (unknown) (unknown) rivaroxaban 20 mg (units (unknown) date) tablet (Xarelto) 20 unknown) mg PO DAILY 11/14/19 11/14/19 (unknown) (no (unknown) (unknown) semaglutide 0.25 mg (unit s (unknown) date) or 0.5 mg (2 0.25 mg unknown) SUBCUT QWEEK 11/15/19 11/15/19 (unknown) (no (unknown) (unknown) significant abrasion (uni ts (unknown) date) with large hematoma unknown) to the medial aspect of his left knee (unknown) (no (unknown) (unknown) sildenafil 100 mg (units (unknown) date) tablet 100 mg PO unknown) DAILY PRN Sexual Activity 11/15/19 11/15/19 (unknown) (no (unknown) (unknown) skin irritation (units (unknown) date) inferiorly am unknown) concerned that the medial hematoma may be infected (unknown) (no (unknown) (unknown) spironolactone 25 (units (unknown) date) mg, torsemide 20 mg, unknown) Jardiance, lisinopril 2.5 mg, Xarelto 15 (unknown) (no (unknown) (unknown) subcutaneous (units (u nknown) date) solution (Lantus unknown) (unknown) (no (unknown) (unknown) superiorly and (units (unknown) date) inferiorly. Was unknown) discharged with pain control instructions to (unknown) (no (unknown) (unknown) tablet (units (unkno wn) date) unknown) (unknown) (no (unknown) (unknown) testosterone (units (u nknown) date) cypionate 200 mg/mL unknown) ##0 07/08/12 (unknown) (no (unknown) (unknown) the following day (units (unknown) date) with complaints of unknown) increasing pain. Physical exam describes (unknown) (no (unknown) (unknown) to have heart (units ( unknown) date) failure, paroxysmal unknown) atrial fibrillation, coronary disease, (unknown) (no (unknown) (unknown) to his son's house (units (unknown) date) on aspirin, unknown) clopidogrel, metoprolol succinate 50 mg, (unknown) (no (unknown) (unknown) to the distal knee, (unit s (unknown) date) not crossing any unknown) joint and causing significant irritation (unknown) (no (unknown) (unknown) transfuse [Packed (units (unknown) date) Cells] Stat unknown) (unknown) (no (unknown) (unknown) unchecked. (units (unk nown) date) unknown) (unknown) (no (unknown) (unknown) underlying skin (units (unknown) date) irritation shallow unknown) ulceration and developing cellulitis, (unknown) (no (unknown) (unknown) underwent PCI of the (uni ts (unknown) date) distal right coronary unknown) artery, had a transesophageal (unknown) (no (unknown) (unknown) ventricular ejection (uni ts (unknown) date) fraction at 15% with unknown) volume overload and tachycardia. He (unknown) (no (unknown) (unknown) with concerns for (units (unknown) date) his overall unknown) well-being and concerned that ?times he is not (unknown) (no (unknown) (unknown) with bruising (units ( unknown) date) extending proximal unknown) and distal from his knee with minimal range of (unknown) (no (unknown) (unknown) zolpidem [From (units (unknown) date) Ambien] Allergy unknown) Confusion Verified 11/14/19 20:28 Result panel 29 (unknown) (no (unknown) (unknown) Qty: 0 (units (unkno wn) date) unknown) (unknown) (no (unknown) (unknown) (no value) (units (unk nown) date) unknown) (unknown) (no (unknown) (unknown) My Impression: (units (unknown) date) unknown) (unknown) (no (unknown) (unknown) Radiologist's (units ( unknown) date) Impression: unknown) (unknown) (no (unknown) (unknown) Date of Service: (units (unknown) date) 01/26/22 unknown) (unknown) (no (unknown) (unknown) (no value) (units (unk nown) date) unknown) (unknown) (no (unknown) (unknown) 0.25 mg SUBCUT QWEEK (uni ts (unknown) date) unknown) (unknown) (no (unknown) (unknown) 01/26/22 19:40 (units (unknown) date) unknown) (unknown) (no (unknown) (unknown) 1 tab PO BEDTIME (units (unknown) date) unknown) (unknown) (no (unknown) (unknown) 1,275 mg PO BID Qty: (uni ts (unknown) date) 0 unknown) (unknown) (no (unknown) (unknown) 10 mg PO BID (units (u nknown) date) unknown) (unknown) (no (unknown) (unknown) 10 mg PO QDAY Qty: 0 (uni ts (unknown) date) unknown) (unknown) (no (unknown) (unknown) 10 mg PO TID (units (u nknown) date) unknown) (unknown) (no (unknown) (unknown) 100 mg PO BID (units ( unknown) date) unknown) (unknown) (no (unknown) (unknown) 100 mg PO DAILY PRN (unit s (unknown) date) (Reason: Sexual unknown) Activity) (unknown) (no (unknown) (unknown) 100 unit SQ DAILY (units (unknown) date) Qty: 0 unknown) (unknown) (no (unknown) (unknown) 12.5 mg PO BID (units (unknown) date) unknown) (unknown) (no (unknown) (unknown) 20 mg PO DAILY (units (unknown) date) unknown) (unknown) (no (unknown) (unknown) 40 mg PO DAILY Qty: (unit s (unknown) date) 0 unknown) (unknown) (no (unknown) (unknown) 50 mg PO QDAY Qty: 0 (uni ts (unknown) date) unknown) (unknown) (no (unknown) (unknown) 81 mg PO QDAY Qty: 0 (uni ts (unknown) date) unknown) (unknown) (no (unknown) (unknown) Admin: 01/26/22 (units (unknown) date) 20:35 Dose: 1,000 unknown) mls/hr (unknown) (no (unknown) (unknown) Admin: 01/26/22 (units (unknown) date) 20:35 Dose: 200 unknown) mls/hr (unknown) (no (unknown) (unknown) Admin: 01/26/22 (units (unknown) date) 20:36 Dose: 1,000 unknown) mls/hr (unknown) (no (unknown) (unknown) Admin: 01/26/22 (units (unknown) date) 21:32 Dose: 200 unknown) mls/hr (unknown) (no (unknown) (unknown) Allergies (units (unkn own) date) unknown) (unknown) (no (unknown) (unknown) Documented By: KH (units (unknown) date) unknown) (unknown) (no (unknown) (unknown) Documented By: OW (units (unknown) date) unknown) (unknown) (no (unknown) (unknown) Documented By: ZGG (units (unknown) date) unknown) (unknown) (no (unknown) (unknown) ED Orders (units (unkn own) date) unknown) (unknown) (no (unknown) (unknown) Emergency Report (units (unknown) date) unknown) (unknown) (no (unknown) (unknown) Home Medications (units (unknown) date) unknown) (unknown) (no (unknown) (unknown) Infusion: 01/26/22 (units (unknown) date) 21:00 Dose: 0 mls/hr unknown) (unknown) (no (unknown) (unknown) [facility] [id number] (uni ts (unknown) date) [address] unknown) [place] [address] (unknown) (no (unknown) (unknown) Lab Results (units (un known) date) unknown) (unknown) (no (unknown) (unknown) Last Admin: 01/26/22 (uni ts (unknown) date) 22:33 Dose: Not Given unknown) (unknown) (no (unknown) (unknown) Last Infusion: (units (unknown) date) 01/26/22 21:00 Dose: unknown) 200 mls/hr (unknown) (no (unknown) (unknown) Last Infusion: (units (unknown) date) 01/26/22 22:33 Dose: unknown) 0 mls/hr (unknown) (no (unknown) (unknown) Last Infusion: (units (unknown) date) 01/26/22 22:34 Dose: unknown) 0 mls/hr (unknown) (no (unknown) (unknown) Stop: 01/26/22 20:08 (uni ts (unknown) date) unknown) (unknown) (no (unknown) (unknown) Stop: 01/26/22 20:51 (uni ts (unknown) date) unknown) (unknown) (no (unknown) (unknown) Stop: 01/26/22 21:09 (uni ts (unknown) date) unknown) (unknown) (no (unknown) (unknown) Stop: 01/26/22 22:14 (uni ts (unknown) date) unknown) (unknown) (no (unknown) (unknown) Urine Dip (units (unkn own) date) unknown) (unknown) (no (unknown) (unknown) Vital Signs - 8 hr (units (unknown) date) unknown) (unknown) (no (unknown) (unknown) (no value) (units (unk nown) date) unknown) (unknown) (no (unknown) (unknown) 01/26/22 01/26/22 (units (unknown) date) 01/26/22 Range/Units unknown) (unknown) (no (unknown) (unknown) 01/26/22 01/26/22 (units (unknown) date) Range/Units unknown) (unknown) (no (unknown) (unknown) 19:40 19:40 19:40 (units (unknown) date) unknown) (unknown) (no (unknown) (unknown) 20:21 20:47 (units (un known) date) unknown) (unknown) (no (unknown) (unknown) Lantus U-100 Insulin (uni ts (unknown) date) 100 UNIT/1 ML unknown) solution (unknown) (no (unknown) (unknown) Metformin (units (unkn own) date) Hydrochloride unknown) (GLUCOPHAGE) (unknown) (no (unknown) (unknown) Ozempic 0.25 mg or (units (unknown) date) 0.5 mg(2 mg/1.5 mL) unknown) Pen Injector (unknown) (no (unknown) (unknown) VITAMIN D (Vitamin (units (unknown) date) D3) unknown) (unknown) (no (unknown) (unknown) Xarelto 20 mg tablet (uni ts (unknown) date) unknown) (unknown) (no (unknown) (unknown) allopurinol 100 mg (units (unknown) date) Tablet unknown) (unknown) (no (unknown) (unknown) aspirin 81 MG (units ( unknown) date) tablet,chewable unknown) (unknown) (no (unknown) (unknown) atorvastatin 20 mg (units (unknown) date) Tablet unknown) (unknown) (no (unknown) (unknown) carbidopa-levodopa (units (unknown) date) 25-100 mg Tablet unknown) (unknown) (no (unknown) (unknown) carvedilol 12.5 mg (units (unknown) date) Tablet unknown) (unknown) (no (unknown) (unknown) cyclobenzaprine 10 (units (unknown) date) mg Tablet unknown) (unknown) (no (unknown) (unknown) hydrochlorothiazide (unit s (unknown) date) 25 MG tablet unknown) (unknown) (no (unknown) (unknown) lisinopril 20 MG (units (unknown) date) tablet unknown) (unknown) (no (unknown) (unknown) omeprazole 40 MG (units (unknown) date) capsule,delayed unknown) release(DR/EC) (unknown) (no (unknown) (unknown) oxycodone 10 mg (units (unknown) date) tablet,oral unknown) only,ext.rel.12 hr (unknown) (no (unknown) (unknown) sildenafil 100 mg (units (unknown) date) Tablet unknown) (unknown) (no (unknown) (unknown) testosterone (units (u nknown) date) cypionate unknown) [Depo-Testosterone] 200 MG/1 ML oil (unknown) (no (unknown) (unknown) 01/26/22 (units (unkno wn) date) unknown) (unknown) (no (unknown) (unknown) ABLA (acute blood (units (unknown) date) loss anemia), unknown) Hematoma of left knee region, Acute CHF, Acute (unknown) (no (unknown) (unknown) CT of the a lower (units (unknown) date) extremity in knee unknown) shows a large irregular medial soft tissue (unknown) (no (unknown) (unknown) He is weak, (units (un known) date) confused, cooperative unknown) he has an ortho glass splint on the medial (unknown) (no (unknown) (unknown) Medication (units (unk nown) date) Instructions Recorded unknown) Confirmed (unknown) (no (unknown) (unknown) any also has skin (units (unknown) date) irritation and unknown) developing cellulitis in the left forearm with (unknown) (no (unknown) (unknown) catheterization and (unit s (unknown) date) had PCI of the distal unknown) right coronary artery and also found (unknown) (no (unknown) (unknown) deep (units (unkno wn) date) unknown) (unknown) (no (unknown) (unknown) dressings that (units (unknown) date) appear to been in unknown) place for a number of days and unchanged and (unknown) (no (unknown) (unknown) failure (units (unkno wn) date) unknown) (unknown) (no (unknown) (unknown) he was seen at (units (unknown) date) [facility] on unknown) January 23 and with a ground level fall (unknown) (no (unknown) (unknown) injuring his left (units (unknown) date) knee that had unknown) occurred on or about January 20. On the (unknown) (no (unknown) (unknown) into they large (units (unknown) date) hematoma on the unknown) medial aspect of the left knee. He does not (unknown) (no (unknown) (unknown) mg nightly and as (units (unknown) date) needed nitroglycerin. unknown) (unknown) (no (unknown) (unknown) suspect the acute (units (unknown) date) kidney injury is from unknown) volume loss is secondary to the blood (unknown) (no (unknown) (unknown) (Depo-Testosterone) (unit s (unknown) date) unknown) (unknown) (no (unknown) (unknown) (GLUCOPHAGE) (units (u nknown) date) unknown) (unknown) (no (unknown) (unknown) 01/26/22 19:40 (units (unknown) date) unknown) (unknown) (no (unknown) (unknown) 01/26/22 19:45 (units (unknown) date) unknown) (unknown) (no (unknown) (unknown) 01/26/22 19:52 (units (unknown) date) unknown) (unknown) (no (unknown) (unknown) 01/26/22 20:07 (units (unknown) date) unknown) (unknown) (no (unknown) (unknown) 01/26/22 20:09 (units (unknown) date) unknown) (unknown) (no (unknown) (unknown) 01/26/22 20:15 (units (unknown) date) unknown) (unknown) (no (unknown) (unknown) 01/26/22 20:21 (units (unknown) date) unknown) (unknown) (no (unknown) (unknown) 01/26/22 20:47 (units (unknown) date) unknown) (unknown) (no (unknown) (unknown) 01/26/22 21:56 (units (unknown) date) unknown) (unknown) (no (unknown) (unknown) 1. Mildly hyperdense, (uni ts (unknown) date) irregular medial soft unknown) tissue mass without extension to the (unknown) (no (unknown) (unknown) 1. No CT evidence of (uni ts (unknown) date) acute intracranial unknown) process.? (unknown) (no (unknown) (unknown) 19:44 01/26/22 (units (unknown) date) unknown) (unknown) (no (unknown) (unknown) 2. Age-appropriate (units (unknown) date) cerebral cortical unknown) volume loss and chronic microvascular (unknown) (no (unknown) (unknown) 2. No evidence of (units (unknown) date) underlying unknown) osteomyelitis. (unknown) (no (unknown) (unknown) 20:34 01/26/22 (units (unknown) date) unknown) (unknown) (no (unknown) (unknown) 20:41 (units (unkno wn) date) unknown) (unknown) (no (unknown) (unknown) 21:00 01/26/22 (units (unknown) date) unknown) (unknown) (no (unknown) (unknown) 21:25 (units (unkno wn) date) unknown) (unknown) (no (unknown) (unknown) 21:25 01/26/22 (units (unknown) date) unknown) (unknown) (no (unknown) (unknown) 21:30 (units (unkno wn) date) unknown) (unknown) (no (unknown) (unknown) 21:30 01/26/22 (units (unknown) date) unknown) (unknown) (no (unknown) (unknown) 21:45 (units (unkno wn) date) unknown) (unknown) (no (unknown) (unknown) 21:45 01/26/22 (units (unknown) date) unknown) (unknown) (no (unknown) (unknown) 22:00 01/26/22 (units (unknown) date) unknown) (unknown) (no (unknown) (unknown) 22:15 (units (unkno wn) date) unknown) (unknown) (no (unknown) (unknown) 22:15 01/26/22 (units (unknown) date) unknown) (unknown) (no (unknown) (unknown) 22:30 (units (unkno wn) date) unknown) (unknown) (no (unknown) (unknown) 22:30 01/26/22 (units (unknown) date) unknown) (unknown) (no (unknown) (unknown) 22:35 08/21/22 (units (unknown) date) unknown) (unknown) (no (unknown) (unknown) 22:36 01/26/22 (units (unknown) date) unknown) (unknown) (no (unknown) (unknown) 22:45 (units (unkno wn) date) unknown) (unknown) (no (unknown) (unknown) 22:45 01/26/22 (units (unknown) date) unknown) (unknown) (no (unknown) (unknown) 22:50 (units (unkno wn) date) unknown) (unknown) (no (unknown) (unknown) 22:51 01/26/22 (units (unknown) date) unknown) (unknown) (no (unknown) (unknown) 23:00 01/26/22 (units (unknown) date) unknown) (unknown) (no (unknown) (unknown) 23:01 (units (unkno wn) date) unknown) (unknown) (no (unknown) (unknown) 23:01 01/26/22 (units (unknown) date) unknown) (unknown) (no (unknown) (unknown) 23:04 01/26/22 (units (unknown) date) unknown) (unknown) (no (unknown) (unknown) 23:07 (units (unkno wn) date) unknown) (unknown) (no (unknown) (unknown) 23:15 (units (unkno wn) date) unknown) (unknown) (no (unknown) (unknown) 23:15 01/26/22 (units (unknown) date) unknown) (unknown) (no (unknown) (unknown) 23:30 01/26/22 (units (unknown) date) unknown) (unknown) (no (unknown) (unknown) 23:45 (units (unkno wn) date) unknown) (unknown) (no (unknown) (unknown) 3. 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 (unknown) (no (unknown) (unknown) 3. Very small (units ( unknown) date) nonspecific knee unknown) joint effusion.? (unknown) (no (unknown) (unknown) [id number] (units (unkno wn) date) unknown) (unknown) (no (unknown) (unknown) 76-year-old (units (un known) date) gentleman with a unknown) history of coronary artery disease post CABG x4, (unknown) (no (unknown) (unknown) 8.0 cm in AP (units (u nknown) date) diameter, and about unknown) 3.5 cm in thickness.? There is no extension (unknown) (no (unknown) (unknown) ? (units (unkno wn) date) unknown) (unknown) (no (unknown) (unknown) ALT (<50) IU/L (units (unknown) date) unknown) (unknown) (no (unknown) (unknown) ALT 27 (<50) IU/L (units (unknown) date) unknown) (unknown) (no (unknown) (unknown) AST (17-59) IU/L (units (unknown) date) unknown) (unknown) (no (unknown) (unknown) AST 28 (17-59) IU/L (unit s (unknown) date) unknown) (unknown) (no (unknown) (unknown) Abdomen: Soft, mild (unit s (unknown) date) distention but unknown) nontender, good bowel tones, no flank pain (unknown) (no (unknown) (unknown) Age/Sex: 76 / M (units (unknown) date) unknown) (unknown) (no (unknown) (unknown) Albumin (3.5-5.0) (units (unknown) date) g/dL unknown) (unknown) (no (unknown) (unknown) Albumin 3.6 (units (un known) date) (3.5-5.0) g/dL unknown) (unknown) (no (unknown) (unknown) Albumin/Globulin (units (unknown) date) Ratio (1.0-2.8) unknown) (unknown) (no (unknown) (unknown) Albumin/Globulin (units (unknown) date) Ratio 1.0 (1.0-2.8) unknown) (unknown) (no (unknown) (unknown) Alkaline Phosphatase (uni ts (unknown) date) (38-126) U/L unknown) (unknown) (no (unknown) (unknown) Alkaline Phosphatase (uni ts (unknown) date) 170 H (38-126) U/L unknown) (unknown) (no (unknown) (unknown) Allergy/AdvReac Type (uni ts (unknown) date) Severity Reaction unknown) Status Date / Time (unknown) (no (unknown) (unknown) Anisocytosis (units (u nknown) date) unknown) (unknown) (no (unknown) (unknown) Anisocytosis 3+ H (units (unknown) date) unknown) (unknown) (no (unknown) (unknown) Anti-Inflamma (units ( unknown) date) disease unknown) (unknown) (no (unknown) (unknown) Antibody Screen (units (unknown) date) unknown) (unknown) (no (unknown) (unknown) Antibody Screen (units (unknown) date) Negative unknown) (unknown) (no (unknown) (unknown) Atrial fibrillation (unit s (unknown) date) unknown) (unknown) (no (unknown) (unknown) January 06. 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 (unknown) (no (unknown) (unknown) BUN (9-20) mg/dL (units (unknown) date) unknown) (unknown) (no (unknown) (unknown) BUN 61 H (9-20) (units (unknown) date) mg/dL unknown) (unknown) (no (unknown) (unknown) BUN/Creatinine Ratio (uni ts (unknown) date) (6-22) unknown) (unknown) (no (unknown) (unknown) BUN/Creatinine Ratio (uni ts (unknown) date) 19.2 (6-22) unknown) (unknown) (no (unknown) (unknown) Baso # (Auto) (units ( unknown) date) (0-100) /uL unknown) (unknown) (no (unknown) (unknown) Baso # (Auto) 100 (units (unknown) date) (0-100) /uL unknown) (unknown) (no (unknown) (unknown) Baso % (Auto) (0-2) (unit s (unknown) date) % unknown) (unknown) (no (unknown) (unknown) Baso % (Auto) 1.0 (units (unknown) date) (0-2) % unknown) (unknown) (no (unknown) (unknown) Bedside Urine (units ( unknown) date) Bilirubin - Negative unknown) (unknown) (no (unknown) (unknown) Bedside Urine (units ( unknown) date) Glucose 500 mg/dl unknown) (unknown) (no (unknown) (unknown) Bedside Urine Ketone (uni ts (unknown) date) - Negative unknown) (unknown) (no (unknown) (unknown) Bedside Urine (units ( unknown) date) Leukocytes +/- 15 unknown) (unknown) (no (unknown) (unknown) Bedside Urine (units ( unknown) date) Nitrite - Negative unknown) (unknown) (no (unknown) (unknown) Bedside Urine Occult (uni ts (unknown) date) Blood +/- unknown) (unknown) (no (unknown) (unknown) Bedside Urine (units ( unknown) date) Protein - Negative unknown) (unknown) (no (unknown) (unknown) Bedside Urine (units ( unknown) date) Urobilinogen - unknown) Negative (unknown) (no (unknown) (unknown) Bedside Urine pH 5.5 (uni ts (unknown) date) unknown) (unknown) (no (unknown) (unknown) Blood Culture Stat (units (unknown) date) unknown) (unknown) (no (unknown) (unknown) Blood Pressure (units (unknown) date) 102/52 L 98/52 L unknown) (unknown) (no (unknown) (unknown) Blood Pressure 78/54 (uni ts (unknown) date) L 01/26/ 19:44 unknown) (unknown) (no (unknown) (unknown) Blood Pressure 95/53 (uni ts (unknown) date) L unknown) (unknown) (no (unknown) (unknown) Blood Pressure 95/54 (uni ts (unknown) date) L unknown) (unknown) (no (unknown) (unknown) Blood Pressure 95/55 (uni ts (unknown) date) L unknown) (unknown) (no (unknown) (unknown) Blood Pressure (units (unknown) date) 102/53 L unknown) (unknown) (no (unknown) (unknown) Blood Pressure 78/54 (uni ts (unknown) date) L 102/52 L unknown) (unknown) (no (unknown) (unknown) Blood Pressure 90/50 (uni ts (unknown) date) L 92/51 L unknown) (unknown) (no (unknown) (unknown) Blood Pressure 94/46 (uni ts (unknown) date) L 95/55 L 98/52 L unknown) (unknown) (no (unknown) (unknown) Blood Pressure 96/53 (uni ts (unknown) date) L unknown) (unknown) (no (unknown) (unknown) Blood Pressure 97/52 (uni ts (unknown) date) L 101/54 L unknown) (unknown) (no (unknown) (unknown) Blood Pressure 98/52 (uni ts (unknown) date) L unknown) (unknown) (no (unknown) (unknown) Blood Pressure 98/52 (uni ts (unknown) date) L 95/54 L 95/50 L unknown) (unknown) (no (unknown) (unknown) Blood Pressure 98/52 (uni ts (unknown) date) L 97/52 L 102/53 L unknown) (unknown) (no (unknown) (unknown) Blood Type (units (unk nown) date) unknown) (unknown) (no (unknown) (unknown) Blood Type A (units (u nknown) date) Negative unknown) (unknown) (no (unknown) (unknown) Bones:? No (units (unk nown) date) fractures.? Normal unknown) bone alignment.? 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 No (units (unk nown) date) intracranial bleeds unknown) or masses.? There is cerebral volume loss for (unknown) (no (unknown) (unknown) COVID19 -Nasal (units (unknown) date) RAPID/Pre-Proc Stat unknown) (unknown) (no (unknown) (unknown) CSF spaces:? Basal (units (unknown) date) cisterns are patent.? unknown) No extra-axial fluid collections.? The (unknown) (no (unknown) (unknown) CT LE LT wo con Stat (uni ts (unknown) date) unknown) (unknown) (no (unknown) (unknown) CT Left lower (units ( unknown) date) extremity: unknown) (unknown) (no (unknown) (unknown) CT head/brain wo con (uni ts (unknown) date) Stat unknown) (unknown) (no (unknown) (unknown) CT scan - head: (units (unknown) date) unknown) (unknown) (no (unknown) (unknown) Calcium (8.4-10.2) (units (unknown) date) mg/dL unknown) (unknown) (no (unknown) (unknown) Calcium 8.4 (units (un known) date) (8.4-10.2) mg/dL unknown) (unknown) (no (unknown) (unknown) Carbon Dioxide (units (unknown) date) (22-32) mmol/L unknown) (unknown) (no (unknown) (unknown) Carbon Dioxide 27 (units (unknown) date) (22-32) mmol/L unknown) (unknown) (no (unknown) (unknown) Cardiac: Regular (units (unknown) date) rate and rhythm no unknown) murmurs no bruits (unknown) (no (unknown) (unknown) Chief complaint: (units (unknown) date) Skin/Abscess/Foreign unknown) Body (unknown) (no (unknown) (unknown) Chloride (98-107) (units (unknown) date) mmol/L unknown) (unknown) (no (unknown) (unknown) Chloride 97 L (units ( unknown) date) (98-107) mmol/L unknown) (unknown) (no (unknown) (unknown) Clinical Impression: (uni ts (unknown) date) unknown) (unknown) (no (unknown) (unknown) Complete Blood Count (uni ts (unknown) date) AUTO DIFF Stat unknown) (unknown) (no (unknown) (unknown) Comprehensive (units ( unknown) date) Metabolic Panel Stat unknown) (unknown) (no (unknown) (unknown) Coronary artery (units (unknown) date) disease unknown) (unknown) (no (unknown) (unknown) Course (units (unkno wn) date) unknown) (unknown) (no (unknown) (unknown) Creatinine (units (unk nown) date) (0.66-1.25) mg/dL unknown) (unknown) (no (unknown) (unknown) Creatinine 3.18 H (units (unknown) date) (0.66-1.25) mg/dL unknown) (unknown) (no (unknown) (unknown) Crossmatch (units (unk nown) date) unknown) (unknown) (no (unknown) (unknown) Crossmatch See (units (unknown) date) Detail unknown) (unknown) (no (unknown) (unknown) : 1945 (units (unknown) date) Acct:[id number] unknown) (unknown) (no (unknown) (unknown) Departure (units (unkn own) date) unknown) (unknown) (no (unknown) (unknown) Diabetes (units (unkno wn) date) unknown) (unknown) (no (unknown) (unknown) Dictated by: Brittny (uni ts (unknown) date) Carlos Moran on unknown) 01/26/2022 at 21:07 ? ? (unknown) (no (unknown) (unknown) Dictated by: Brittny (uni ts (unknown) date) Carlos Moran on unknown) 01/26/2022 at 21:10 ? ? (unknown) (no (unknown) (unknown) Discharge Plan (units (unknown) date) unknown) (unknown) (no (unknown) (unknown) Discontinued (units (u nknown) date) Medications unknown) (unknown) (no (unknown) (unknown) Dyslipidemia (units (u nknown) date) unknown) (unknown) (no (unknown) (unknown) ECG Data (units (unkno wn) date) unknown) (unknown) (no (unknown) (unknown) EKG-12 Lead Stat (units (unknown) date) unknown) (unknown) (no (unknown) (unknown) ER Physician: (units ( unknown) date) Ashley Glynn MD unknown) (unknown) (no (unknown) (unknown) Eos # (Auto) (0-450) (uni ts (unknown) date) /uL unknown) (unknown) (no (unknown) (unknown) Eos # (Auto) 200 (units (unknown) date) (0-450) /uL unknown) (unknown) (no (unknown) (unknown) Eos % (Auto) (2-4) % (uni ts (unknown) date) unknown) (unknown) (no (unknown) (unknown) Eos % (Auto) 2.8 (units (unknown) date) (2-4) % unknown) (unknown) (no (unknown) (unknown) Esterase (units (unkno wn) date) unknown) (unknown) (no (unknown) (unknown) Estimated GFR (>60) (unit s (unknown) date) mL/min unknown) (unknown) (no (unknown) (unknown) Estimated GFR 19 L (units (unknown) date) (>60) mL/min unknown) (unknown) (no (unknown) (unknown) Exam (units (unkno wn) date) unknown) (unknown) (no (unknown) (unknown) Extremities: Left (units (unknown) date) leg is described unknown) under the skin exam. Reasonable capillary (unknown) (no (unknown) (unknown) FINDINGS:? (units (unk nown) date) unknown) (unknown) (no (unknown) (unknown) Full and symmetrical (uni ts (unknown) date) air movement unknown) (unknown) (no (unknown) (unknown) General (units (unkno wn) date) unknown) (unknown) (no (unknown) (unknown) General: Chronically (unit s (unknown) date) ill-appearing, pale, unknown) weak but in no acute distress. He is (unknown) (no (unknown) (unknown) GenericComposite[Plt (uni ts (unknown) date) Count (150-400) unknown) X10^3/uL ] (unknown) (no (unknown) (unknown) GenericComposite[Plt (uni ts (unknown) date) Count 206 (150-400) unknown) X10^3/uL ] (unknown) (no (unknown) (unknown) GenericComposite[RBC (uni ts (unknown) date) (4.5-5.9) X10^6/uL ] unknown) (unknown) (no (unknown) (unknown) GenericComposite[RBC (uni ts (unknown) date) 2.75 L (4.5-5.9) unknown) X10^6/uL ] (unknown) (no (unknown) (unknown) GenericComposite[WBC (uni ts (unknown) date) (4.5-11.0) X10^3/uL ] unknown) (unknown) (no (unknown) (unknown) GenericComposite[WBC (uni ts (unknown) date) 7.1 (4.5-11.0) unknown) X10^3/uL ] (unknown) (no (unknown) (unknown) Globulin (1.7-4.1) (units (unknown) date) g/dL unknown) (unknown) (no (unknown) (unknown) Globulin 3.5 (units (u nknown) date) (1.7-4.1) g/dL unknown) (unknown) (no (unknown) (unknown) Glucose (80-110) (units (unknown) date) mg/dL unknown) (unknown) (no (unknown) (unknown) Glucose 130 H (units ( unknown) date) (80-110) mg/dL unknown) (unknown) (no (unknown) (unknown) HEENT: Moist mucous (unit s (unknown) date) membranes, normal unknown) sclera with reactive pupils, pale mucous (unknown) (no (unknown) (unknown) HPI - General Adult (unit s (unknown) date) unknown) (unknown) (no (unknown) (unknown) HPI narrative: (units (unknown) date) unknown) (unknown) (no (unknown) (unknown) Have spoken with his (uni ts (unknown) date) son and medical unknown) records are now available for review. (unknown) (no (unknown) (unknown) Hct (41-53) % (units ( unknown) date) unknown) (unknown) (no (unknown) (unknown) Hct 20.8 L* (41-53) (unit s (unknown) date) % unknown) (unknown) (no (unknown) (unknown) He was admitted at (units (unknown) date) [facility] on January unknown) through January 13 for elective heart (unknown) (no (unknown) (unknown) [phone] decompensated heart (unknown) (no (unknown) (unknown) Hgb (13.5-17.5) g/dL (uni ts (unknown) date) unknown) (unknown) (no (unknown) (unknown) Hgb 6.7 L* (units (unk nown) date) (13.5-17.5) g/dL unknown) (unknown) (no (unknown) (unknown) His son noted him to (uni ts (unknown) date) be increasingly weak unknown) this morning and he comes in (unknown) (no (unknown) (unknown) History of Present (units (unknown) date) Illness unknown) (unknown) (no (unknown) (unknown) Hx of (units (unkno wn) date) cholecystectomy unknown) (unknown) (no (unknown) (unknown) Hypertension (units (u nknown) date) unknown) (unknown) (no (unknown) (unknown) IMPRESSION:? (units (u nknown) date) unknown) (unknown) (no (unknown) (unknown) IV NOW ONE (units (unk nown) date) unknown) (unknown) (no (unknown) (unknown) Image quality:? (units (unknown) date) Excellent.? unknown) (unknown) (no (unknown) (unknown) Imaging Data (units (u nknown) date) unknown) (unknown) (no (unknown) (unknown) In the absence of (units (unknown) date) fever, leukocytosis, unknown) elevated lactic acid and alternative (unknown) (no (unknown) (unknown) Initial Vital Signs (unit s (unknown) date) unknown) (unknown) (no (unknown) (unknown) Initial Vital Signs: (uni ts (unknown) date) unknown) (unknown) (no (unknown) (unknown) Initial concern was (unit s (unknown) date) for sepsis and he was unknown) given Zosyn and vancomycin. As labs (unknown) (no (unknown) (unknown) Interpretation: (units (unknown) date) unknown) (unknown) (no (unknown) (unknown) Lab Data (units (unkno wn) date) unknown) (unknown) (no (unknown) (unknown) Labs: (units (unkno wn) date) unknown) (unknown) (no (unknown) (unknown) Lactate (0.7-2.1) (units (unknown) date) mmol/L unknown) (unknown) (no (unknown) (unknown) Lactate 1.3 (units (un known) date) (0.7-2.1) mmol/L unknown) (unknown) (no (unknown) (unknown) Lactate (Lactic (units (unknown) date) Acid) Stat unknown) (unknown) (no (unknown) (unknown) Lipase (23-300) U/L (unit s (unknown) date) unknown) (unknown) (no (unknown) (unknown) Lipase 135 (23-300) (unit s (unknown) date) U/L unknown) (unknown) (no (unknown) (unknown) Lipase Stat (units (un known) date) unknown) (unknown) (no (unknown) (unknown) Lymph # (Auto) (units (unknown) date) (5366-1632) /uL unknown) (unknown) (no (unknown) (unknown) Lymph # (Auto) 800 L (uni ts (unknown) date) (6717-6594) /uL unknown) (unknown) (no (unknown) (unknown) Lymph % (Auto) (units (unknown) date) (25-40) % unknown) (unknown) (no (unknown) (unknown) Lymph % (Auto) 11.4 (unit s (unknown) date) L (25-40) % unknown) (unknown) (no (unknown) (unknown) MCH (26-34) PG (units (unknown) date) unknown) (unknown) (no (unknown) (unknown) MCH 24.6 L (26-34) (units (unknown) date) PG unknown) (unknown) (no (unknown) (unknown) MCHC (30-36) % (units (unknown) date) unknown) (unknown) (no (unknown) (unknown) MCHC 32.4 (30-36) % (unit s (unknown) date) unknown) (unknown) (no (unknown) (unknown) MCV (80-100) fL (units (unknown) date) unknown) (unknown) (no (unknown) (unknown) MCV 75.7 L (80-100) (unit s (unknown) date) fL unknown) (unknown) (no (unknown) (unknown) MDM Narrative (units ( unknown) date) unknown) (unknown) (no (unknown) (unknown) Medical Decision (units (unknown) date) Making unknown) (unknown) (no (unknown) (unknown) Medical History (units (unknown) date) (Updated 01/27/22 @ unknown) 00:29 by Ashley Glynn MD) (unknown) (no (unknown) (unknown) Medical decision (units (unknown) date) making narrative: unknown) (unknown) (no (unknown) (unknown) Metformin (units (unkn own) date) Hydrochloride 1,275 unknown) mg PO BID ##0 07/08/12 (unknown) (no (unknown) (unknown) Miscellaneous,Doctor (uni ts (unknown) date) , [Primary Care unknown) Provider] - (unknown) (no (unknown) (unknown) [place] # (Auto) (units ( unknown) date) (0-900) /uL unknown) (unknown) (no (unknown) (unknown) [place] # (Auto) 700 (units (unknown) date) (0-900) /uL unknown) (unknown) (no (unknown) (unknown) [place] % (Auto) (3-14) (uni ts (unknown) date) % unknown) (unknown) (no (unknown) (unknown) [place] % (Auto) 9.8 (units (unknown) date) (3-14) % unknown) (unknown) (no (unknown) (unknown) NSAIDS (units (unkno wn) date) (Non-Steroidal unknown) AdvReac Severe kidney Verified 11/14/19 20:28 (unknown) (no (unknown) (unknown) Neck: No JVD, supple (uni ts (unknown) date) unknown) (unknown) (no (unknown) (unknown) Neurologic: Globally (uni ts (unknown) date) weak but able to move unknown) all extremities (unknown) (no (unknown) (unknown) Neut # (Auto) (units ( unknown) date) (7676-7404) /uL unknown) (unknown) (no (unknown) (unknown) Neut # (Auto) 5400 (units (unknown) date) (3930-9652) /uL unknown) (unknown) (no (unknown) (unknown) Neut % (Auto) (units ( unknown) date) (50-75) % unknown) (unknown) (no (unknown) (unknown) Neut % (Auto) 75.0 (units (unknown) date) (50-75) % unknown) (unknown) (no (unknown) (unknown) No Action (units (unkn own) date) unknown) (unknown) (no (unknown) (unknown) ONE (units (unkno wn) date) unknown) (unknown) (no (unknown) (unknown) Ordered: (units (unkno wn) date) unknown) (unknown) (no (unknown) (unknown) Orders (units (unkno wn) date) unknown) (unknown) (no (unknown) (unknown) Oxygen Delivery (units (unknown) date) Method unknown) (unknown) (no (unknown) (unknown) Oxygen Delivery (units (unknown) date) Method 01/26/22 19:44 unknown) (unknown) (no (unknown) (unknown) Oxygen Delivery (units (unknown) date) Method unknown) (unknown) (no (unknown) (unknown) Oxygen Delivery (units (unknown) date) Method Room Air unknown) (unknown) (no (unknown) (unknown) Patient Disposition: (uni ts (unknown) date) Admitted As Inpatient unknown) (unknown) (no (unknown) (unknown) Patient History (units (unknown) date) unknown) (unknown) (no (unknown) (unknown) Patient was (units (un known) date) discharged [facility] for acute congestive heart failure on (unknown) (no (unknown) (unknown) Patient: (units (unkno wn) date) Oseml Baxter MR#: unknown) M000 (unknown) (no (unknown) (unknown) Piperacillin (units (u nknown) date) Sod/Tazobactam (Sod unknown) 4.5 gm/ Sodium Chloride) 100 mls @ 200 mls/hr (unknown) (no (unknown) (unknown) Point of care (units ( unknown) date) testing: unknown) (unknown) (no (unknown) (unknown) Potassium (3.4-5.1) (unit s (unknown) date) mmol/L unknown) (unknown) (no (unknown) (unknown) Potassium 4.3 (units ( unknown) date) (3.4-5.1) mmol/L unknown) (unknown) (no (unknown) (unknown) Prescriptions: (units (unknown) date) unknown) (unknown) (no (unknown) (unknown) Procalcitonin (<0.5) (uni ts (unknown) date) ng/mL unknown) (unknown) (no (unknown) (unknown) Procalcitonin 0.50 (units (unknown) date) (<0.5) ng/mL unknown) (unknown) (no (unknown) (unknown) Procalcitonin Stat (units (unknown) date) unknown) (unknown) (no (unknown) (unknown) Psych: Will respond (unit s (unknown) date) to yes or no unknown) questions but otherwise altered. (unknown) (no (unknown) (unknown) Pulse Oximetry (units (unknown) date) unknown) (unknown) (no (unknown) (unknown) Pulse Oximetry (units (unknown) date) unknown) (unknown) (no (unknown) (unknown) Pulse Oximetry 98 (units (unknown) date) unknown) (unknown) (no (unknown) (unknown) Pulse Oximetry 100 (units (unknown) date) unknown) (unknown) (no (unknown) (unknown) Pulse Oximetry 89 L (unit s (unknown) date) 98 unknown) (unknown) (no (unknown) (unknown) Pulse Oximetry 97 (units (unknown) date) unknown) (unknown) (no (unknown) (unknown) Pulse Oximetry 97 (units (unknown) date) 01/26/22 19:44 unknown) (unknown) (no (unknown) (unknown) Pulse Oximetry 97 99 (uni ts (unknown) date) unknown) (unknown) (no (unknown) (unknown) Pulse Oximetry 100 (units (unknown) date) 100 unknown) (unknown) (no (unknown) (unknown) Pulse Oximetry 100 (units (unknown) date) 99 unknown) (unknown) (no (unknown) (unknown) Pulse Oximetry 97 98 (uni ts (unknown) date) unknown) (unknown) (no (unknown) (unknown) Pulse Oximetry 99 (units (unknown) date) unknown) (unknown) (no (unknown) (unknown) Pulse Rate (units (unk nown) date) unknown) (unknown) (no (unknown) (unknown) Pulse Rate 61 62 (units (unknown) date) unknown) (unknown) (no (unknown) (unknown) Pulse Rate 63 (units ( unknown) date) unknown) (unknown) (no (unknown) (unknown) Pulse Rate 64 64 (units (unknown) date) unknown) (unknown) (no (unknown) (unknown) Pulse Rate 65 (units ( unknown) date) 01/26/22 19:44 unknown) (unknown) (no (unknown) (unknown) Pulse Rate 62 62 (units (unknown) date) unknown) (unknown) (no (unknown) (unknown) Pulse Rate 63 63 62 (unit s (unknown) date) unknown) (unknown) (no (unknown) (unknown) Pulse Rate 64 (units ( unknown) date) unknown) (unknown) (no (unknown) (unknown) Pulse Rate 64 63 (units (unknown) date) unknown) (unknown) (no (unknown) (unknown) Pulse Rate 64 64 (units (unknown) date) unknown) (unknown) (no (unknown) (unknown) Pulse Rate 64 62 62 (unit s (unknown) date) unknown) (unknown) (no (unknown) (unknown) Pulse Rate 64 64 65 (unit s (unknown) date) unknown) (unknown) (no (unknown) (unknown) Pulse Rate 65 65 64 (unit s (unknown) date) unknown) (unknown) (no (unknown) (unknown) RBC Morphology (units (unknown) date) unknown) (unknown) (no (unknown) (unknown) RBC Morphology Not (units (unknown) date) Reportable unknown) (unknown) (no (unknown) (unknown) RDW (11.6-14.8) % (units (unknown) date) unknown) (unknown) (no (unknown) (unknown) RDW 24.5 H (units (unk nown) date) (11.6-14.8) % unknown) (unknown) (no (unknown) (unknown) ROS Unobtainable: (units (unknown) date) Unobtainable due to unknown) mental condition (unknown) (no (unknown) (unknown) RT Consult Eval and (unit s (unknown) date) Treat NOW unknown) (unknown) (no (unknown) (unknown) Referrals: (units (unk nown) date) unknown) (unknown) (no (unknown) (unknown) Related Data (units (u nknown) date) unknown) (unknown) (no (unknown) (unknown) Respiratory Rate (units (unknown) date) unknown) (unknown) (no (unknown) (unknown) Respiratory Rate 15 (unit s (unknown) date) unknown) (unknown) (no (unknown) (unknown) Respiratory Rate 20 (unit s (unknown) date) 21 unknown) (unknown) (no (unknown) (unknown) Respiratory Rate 20 (unit s (unknown) date) 26 H unknown) (unknown) (no (unknown) (unknown) Respiratory Rate 21 (unit s (unknown) date) unknown) (unknown) (no (unknown) (unknown) Respiratory Rate 21 (unit s (unknown) date) 01/26/22 19:44 unknown) (unknown) (no (unknown) (unknown) Respiratory Rate 14 (unit s (unknown) date) 13 unknown) (unknown) (no (unknown) (unknown) Respiratory Rate 17 (unit s (unknown) date) unknown) (unknown) (no (unknown) (unknown) Respiratory Rate 18 (unit s (unknown) date) 14 21 unknown) (unknown) (no (unknown) (unknown) Respiratory Rate 18 (unit s (unknown) date) 15 18 unknown) (unknown) (no (unknown) (unknown) Respiratory Rate 19 (unit s (unknown) date) 16 unknown) (unknown) (no (unknown) (unknown) Respiratory Rate 20 (unit s (unknown) date) 24 unknown) (unknown) (no (unknown) (unknown) Respiratory Rate 20 (unit s (unknown) date) 12 18 unknown) (unknown) (no (unknown) (unknown) Respiratory Rate 21 (unit s (unknown) date) 17 17 unknown) (unknown) (no (unknown) (unknown) Respiratory: Lungs (units (unknown) date) are clear to unknown) auscultation, no wheezing no rales no rhonchi. (unknown) (no (unknown) (unknown) Result diagrams: (units (unknown) date) unknown) (unknown) (no (unknown) (unknown) Review of Systems (units (unknown) date) unknown) (unknown) (no (unknown) (unknown) S/P CABG x 4 (units (u nknown) date) unknown) (unknown) (no (unknown) (unknown) SARS-CoV-2 (PCR) (units (unknown) date) (Negative) unknown) (unknown) (no (unknown) (unknown) SARS-CoV-2 (PCR) (units (unknown) date) Negative (Negative) unknown) (unknown) (no (unknown) (unknown) [facility] who will (unit s (unknown) date) follow-up on this to unknown) see if additional records are present. (unknown) (no (unknown) (unknown) Signed By: (units (unk nown) date) unknown) (unknown) (no (unknown) (unknown) Sinus rhythm, left (units (unknown) date) bundle-branch block, unknown) no acute ischemic changes, rate of 67 (unknown) (no (unknown) (unknown) Sinuses:? Mucosal (units (unknown) date) thickening and small unknown) fluid level in the left maxillary sinus.? (unknown) (no (unknown) (unknown) Skin: Pale, Warm and (uni ts (unknown) date) dry, multiple bruises unknown) some look like there from recent (unknown) (no (unknown) (unknown) Skull and face:? (units (unknown) date) Calvarium and unknown) visualized facial bones appear intact, without (unknown) (no (unknown) (unknown) Sleep apnea (units (un known) date) unknown) (unknown) (no (unknown) (unknown) Smoking Status: (units (unknown) date) Former smoker unknown) (unknown) (no (unknown) (unknown) Smoking Status: (units (unknown) date) Former smoker unknown) (unknown) (no (unknown) (unknown) Social History (units (unknown) date) (Updated 09/25/18 @ unknown) 11:17 by Telma Dickey DO) (unknown) (no (unknown) (unknown) Sodium (137-145) (units (unknown) date) mmol/L unknown) (unknown) (no (unknown) (unknown) Sodium 132 L (units (u nknown) date) (137-145) mmol/L unknown) (unknown) (no (unknown) (unknown) Sodium Chloride (units (unknown) date) (Normal Saline 0.9%) unknown) 1,000 mls @ 1,000 mls/hr IV BOLUS ONE (unknown) (no (unknown) (unknown) Soft tissues:? There (uni ts (unknown) date) are surgical clips in unknown) the medial leg.? In the medial leg, (unknown) (no (unknown) (unknown) Stated complaint: (units (unknown) date) Dementia unknown) (unknown) (no (unknown) (unknown) Substance Use Type: (unit s (unknown) date) does not use unknown) (unknown) (no (unknown) (unknown) Surgical History (units (unknown) date) (Reviewed 11/15/19 @ unknown) 04:28 by MEKA Garcia) (unknown) (no (unknown) (unknown) Temperature (units (un known) date) unknown) (unknown) (no (unknown) (unknown) Temperature (units (un known) date) unknown) (unknown) (no (unknown) (unknown) Temperature 96.3 F L (uni ts (unknown) date) 96.8 F L unknown) (unknown) (no (unknown) (unknown) Temperature 97.7 F (units (unknown) date) 01/26/22 19:44 unknown) (unknown) (no (unknown) (unknown) Temperature 96.7 F L (uni ts (unknown) date) 96.5 F L unknown) (unknown) (no (unknown) (unknown) Temperature 97.7 F (units (unknown) date) 96.8 F L unknown) (unknown) (no (unknown) (unknown) Temperature 98.6 F (units (unknown) date) 96.8 F L 96.7 F L unknown) (unknown) (no (unknown) (unknown) There is a very (units (unknown) date) small hypodense joint unknown) effusion present.? Mild to moderate (unknown) (no (unknown) (unknown) Time Seen by (units (u nknown) date) Provider: 01/26/22 unknown) 19:49 (unknown) (no (unknown) (unknown) Total Bilirubin (units (unknown) date) (0.2-1.3) mg/dL unknown) (unknown) (no (unknown) (unknown) Total Bilirubin 1.5 (unit s (unknown) date) H (0.2-1.3) mg/dL unknown) (unknown) (no (unknown) (unknown) Total Protein (units ( unknown) date) (6.3-8.2) g/dL unknown) (unknown) (no (unknown) (unknown) Total Protein 7.1 (units (unknown) date) (6.3-8.2) g/dL unknown) (unknown) (no (unknown) (unknown) Type and Screen Stat (uni ts (unknown) date) unknown) (unknown) (no (unknown) (unknown) U-100 Insulin) (units (unknown) date) unknown) (unknown) (no (unknown) (unknown) Urine Microscopic (units (unknown) date) Stat unknown) (unknown) (no (unknown) (unknown) Urine Specific (units (unknown) date) [place] 1.02 unknown) (unknown) (no (unknown) (unknown) VITAMIN D (Vitamin (units (unknown) date) D3) ##0 07/08/12 unknown) (unknown) (no (unknown) (unknown) Vancomycin HCl (units (unknown) date) (Vancomycin Per unknown) Pharmacy) 1 request MISC NOW ONE (unknown) (no (unknown) (unknown) Vancomycin (units (unk nown) date) HCl/Dextrose unknown) (Vancomycin) 1,500 mg in 300 mls @ 200 mls/hr IV NOW (unknown) (no (unknown) (unknown) Visualized sinuses (units (unknown) date) and mastoids are unknown) otherwise clear.? (unknown) (no (unknown) (unknown) Vital Signs (units (un known) date) unknown) (unknown) (no (unknown) (unknown) Vital signs: (units (u nknown) date) unknown) (unknown) (no (unknown) (unknown) Will give him 80 mg (unit s (unknown) date) of IV Lasix given his unknown) increased creatinine and usual oral (unknown) (no (unknown) (unknown) XR chest 1V Stat (units (unknown) date) unknown) (unknown) (no (unknown) (unknown) [Embedded Image Not (unit s (unknown) date) Available] unknown) (unknown) (no (unknown) (unknown) a med list that was (units (unknown) date) printed out from the unknown) end of December it looks like it could have (unknown) (no (unknown) (unknown) age, with (units (unkn own) date) unknown) (unknown) (no (unknown) (unknown) alcohol intake (units (unknown) date) frequency: unknown) holidays/special occasions only (unknown) (no (unknown) (unknown) allopurinol 100 mg (units (unknown) date) tablet 100 mg PO BID unknown) 11/15/19 11/15/19 (unknown) (no (unknown) (unknown) alteration in mental (uni ts (unknown) date) status, Acute kidney unknown) injury (unknown) (no (unknown) (unknown) and acute blood loss (uni ts (unknown) date) I do not believe this unknown) is sepsis. I have begun transfusion (unknown) (no (unknown) (unknown) articular (units (unkn own) date) involvement. unknown) (unknown) (no (unknown) (unknown) aspect of his left (units (unknown) date) lower leg that is unknown) abrading into the top of his foot and has a (unknown) (no (unknown) (unknown) aspirin 81 mg (units ( unknown) date) chewable tablet 81 mg unknown) PO QDAY ##0 07/08/12 11/15/19 (unknown) (no (unknown) (unknown) atherosclerotic (units (unknown) date) unknown) (unknown) (no (unknown) (unknown) atorvastatin 20 mg (units (unknown) date) tablet 20 mg PO DAILY unknown) 11/15/19 11/15/19 (unknown) (no (unknown) (unknown) been associated with (unit s (unknown) date) [facility] and looks like it may be from (unknown) (no (unknown) (unknown) calcification is (units (unknown) date) seen.? Mild unknown) circumferential soft tissue edema.? No significant (unknown) (no (unknown) (unknown) carbidopa 25 (units (u nknown) date) mg-levodopa 100 mg 1 unknown) tab PO BEDTIME RLS 11/15/19 11/15/19 (unknown) (no (unknown) (unknown) carotid artery (units (unknown) date) atherosclerosis.? unknown) (unknown) (no (unknown) (unknown) carvedilol 12.5 mg (units (unknown) date) tablet 12.5 mg PO BID unknown) 11/15/19 11/15/19 (unknown) (no (unknown) (unknown) cellulitis, but (units (unknown) date) abscess is not unknown) entirely excluded. (unknown) (no (unknown) (unknown) changes. ? (units (unk nown) date) unknown) (unknown) (no (unknown) (unknown) circumscribed (units ( unknown) date) subcutaneous mass unknown) measuring approximately 9.5 cm in craniocaudal (unknown) (no (unknown) (unknown) complaining of (units (unknown) date) dyspnea, chest pain unknown) appears to be more alert not complaining of (unknown) (no (unknown) (unknown) completely aware?. (units (unknown) date) No additional history unknown) is yet available available. There is (unknown) (no (unknown) (unknown) congestive heart (units (unknown) date) failure, history of unknown) B-cell lymphoma. his son called 911 today (unknown) (no (unknown) (unknown) creatinine change (units (unknown) date) from 1.63 on January unknown) 5th to a creatinine of 3.18 today. Repeat (unknown) (no (unknown) (unknown) cyclobenzaprine 10 (units (unknown) date) mg tablet 10 mg PO unknown) TID 11/15/19 11/15/19 (unknown) (no (unknown) (unknown) details: x 9 (uni ts (unknown) date) months unknown) (unknown) (no (unknown) (unknown) developing mild (units (unknown) date) erythema. Left knee unknown) with a very large bulla/hematoma on the (unknown) (no (unknown) (unknown) diabetes. With this (unit s (unknown) date) admission he was unknown) noted to be ?a bright adult elderly (unknown) (no (unknown) (unknown) dimension, (units (unk nown) date) unknown) (unknown) (no (unknown) (unknown) discontinued (units (u nknown) date) reportedly no fevers unknown) chills new new injury or fall. He was seen (unknown) (no (unknown) (unknown) dose of 20 mg. At (units (unknown) date) this time his blood unknown) pressure has come up nicely, he is not (unknown) (no (unknown) (unknown) echocardiogram and (units (unknown) date) cardioversion for unknown) atrial fibrillation. Was discharged home (unknown) (no (unknown) (unknown) excoriation on the (units (unknown) date) medial aspect of his unknown) foot from the splint as well. (unknown) (no (unknown) (unknown) explanation for (units (unknown) date) hypotension given his unknown) significant bleeding into the left knee (unknown) (no (unknown) (unknown) fascia of (units (unkn own) date) unknown) (unknown) (no (unknown) (unknown) ferrous gluconate 324 (uni ts (unknown) date) mg, glargine insulin, unknown) metformin, omeprazole, Mirapex 0.125 (unknown) (no (unknown) (unknown) ferrous sulfate (units (unknown) date) Allergy Muscle Pain unknown) Verified 11/14/19 20:28 (unknown) (no (unknown) (unknown) fully assess. It (units (unknown) date) clearly is more than unknown) a couple of days old appears exacerbated (unknown) (no (unknown) (unknown) gabapentin Allergy (units (unknown) date) Confusion Verified unknown) 11/14/19 20:28 (unknown) (no (unknown) (unknown) gentleman? (units (unk nown) date) unknown) (unknown) (no (unknown) (unknown) has a piece of (units (unknown) date) fiberglass casting unknown) material extending from the medial malleolus (unknown) (no (unknown) (unknown) have a significantly (uni ts (unknown) date) elevated white blood unknown) cell count. He does have significant (unknown) (no (unknown) (unknown) he had a CT scan (units (unknown) date) that showed hematoma unknown) but no fractures his anticoagulation was (unknown) (no (unknown) (unknown) hematoma and likely (unit s (unknown) date) the source of acute unknown) blood loss (unknown) (no (unknown) (unknown) him as alert and (units (unknown) date) oriented x3 no acute unknown) distress. ER note says that a fiberglass (unknown) (no (unknown) (unknown) his son is involved (unit s (unknown) date) in his care. Will unknown) benefit from orthopedic consultation for (unknown) (no (unknown) (unknown) hospitalization and (unit s (unknown) date) some from his very unknown) frail skin. Area of excoriation on the (unknown) (no (unknown) (unknown) household members: (units (unknown) date) significant other unknown) (unknown) (no (unknown) (unknown) hydrochlorothiazide (unit s (unknown) date) 25 mg tablet 50 mg PO unknown) QDAY ##0 07/08/12 (unknown) (no (unknown) (unknown) hypertension, (units ( unknown) date) hyperlipidemia, unknown) diabetes, cognitive decline, hyperlipidemia, (unknown) (no (unknown) (unknown) hypotensive found to (unit s (unknown) date) be significantly unknown) anemic, presumably secondary to blood loss (unknown) (no (unknown) (unknown) if not caused from (units (unknown) date) the splint that had unknown) been in place. There is an area of (unknown) (no (unknown) (unknown) injector (Ozempic) (units (unknown) date) unknown) (unknown) (no (unknown) (unknown) insulin glargine 100 (uni ts (unknown) date) unit/mL 100 unit SQ unknown) DAILY ##0 07/08/12 11/15/19 (unknown) (no (unknown) (unknown) internal (units (unkno wn) date) unknown) (unknown) (no (unknown) (unknown) into the (units (unkno wn) date) unknown) (unknown) (no (unknown) (unknown) intramuscular oil (units (unknown) date) unknown) (unknown) (no (unknown) (unknown) involving the (units ( unknown) date) unknown) (unknown) (no (unknown) (unknown) is not in any pain (units (unknown) date) at this time. unknown) (unknown) (no (unknown) (unknown) ischemic (units (unkno wn) date) unknown) (unknown) (no (unknown) (unknown) knee pain and I (units (unknown) date) believe will be unknown) appropriate for admission to [facility]. I (unknown) (no (unknown) (unknown) lateral (units (unkno wn) date) compartment.? No unknown) suspicious periostitis. (unknown) (no (unknown) (unknown) left forearm with a (unit s (unknown) date) small area of unknown) ulceration without underlying abscess (unknown) (no (unknown) (unknown) lesions.? (units (unkn own) date) unknown) (unknown) (no (unknown) (unknown) level of the knee (units (unknown) date) joint, there is an unknown) irregular, slightly hyperdense, but non (unknown) (no (unknown) (unknown) lisinopril 20 mg (units (unknown) date) tablet 10 mg PO QDAY unknown) ##0 07/08/12 11/15/19 (unknown) (no (unknown) (unknown) long-leg posterior (units (unknown) date) splint was applied on unknown) arrival in the emergency department he (unknown) (no (unknown) (unknown) loss. He will need (units (unknown) date) close management of unknown) his congestive heart failure as well as (unknown) (no (unknown) (unknown) marital status: (units (unknown) date) unknown) (unknown) (no (unknown) (unknown) mass without (units (u nknown) date) extension to the unknown) underlying joint that clinically appears to be a (unknown) (no (unknown) (unknown) medial aspect it (units (unknown) date) does not appear to be unknown) intra-articular but it is difficult to (unknown) (no (unknown) (unknown) membranes (units (unkn own) date) unknown) (unknown) (no (unknown) (unknown) mg, allopurinol, (units (unknown) date) amiodarone 200 mg, unknown) atorvastatin 40 mg, duloxetine 30 mg, (unknown) (no (unknown) (unknown) mg/1.5 mL) (units (unk nown) date) subcutaneous pen unknown) (unknown) (no (unknown) (unknown) motion at the knee. (unit s (unknown) date) He also has a unknown) dressing in place on the left forearm with (unknown) (no (unknown) (unknown) multiple bruises all (unit s (unknown) date) over. He is pale but unknown) not complaining of headache. He will (unknown) (no (unknown) (unknown) near the (units (unkno wn) date) unknown) (unknown) (no (unknown) (unknown) not tachypneic and (units (unknown) date) is able to speak in unknown) full sentences (unknown) (no (unknown) (unknown) of 2 units of packed (uni ts (unknown) date) blood cells and he unknown) has responded nicely to the volume. (unknown) (no (unknown) (unknown) omeprazole 40 mg (units (unknown) date) capsule,delayed 40 mg unknown) PO DAILY ##0 07/08/12 11/15/19 (unknown) (no (unknown) (unknown) open his eyes to (units (unknown) date) command but not unknown) oriented to person time place it. He states he (unknown) (no (unknown) (unknown) overlying (units (unkn own) date) unknown) (unknown) (no (unknown) (unknown) oxycodone 10 mg (units (unknown) date) tablet,crush 10 mg PO unknown) BID 11/15/19 11/15/19 (unknown) (no (unknown) (unknown) paroxysmal atrial (units (unknown) date) fibrillation unknown) anticoagulated on rivaroxaban, post TAVR, (unknown) (no (unknown) (unknown) recommendations on (units (unknown) date) management of the unknown) left knee external hematoma without intra- (unknown) (no (unknown) (unknown) refill both lower (units (unknown) date) extremities. unknown) (unknown) (no (unknown) (unknown) release (units (unkno wn) date) unknown) (unknown) (no (unknown) (unknown) remove the splint in (uni ts (unknown) date) 2-3 days. unknown) (unknown) (no (unknown) (unknown) resistant,extended (units (unknown) date) release 12 hr unknown) (unknown) (no (unknown) (unknown) resultant ventricular (uni ts (unknown) date) and sulcal unknown) prominence.? There are mild periventricular and (unknown) (no (unknown) (unknown) return he is found (units (unknown) date) to be dramatically unknown) anemic with acute kidney injury with (unknown) (no (unknown) (unknown) rivaroxaban 20 mg (units (unknown) date) tablet (Xarelto) 20 unknown) mg PO DAILY 11/14/19 11/14/19 (unknown) (no (unknown) (unknown) semaglutide 0.25 mg (unit s (unknown) date) or 0.5 mg (2 0.25 mg unknown) SUBCUT QWEEK 11/15/19 11/15/19 (unknown) (no (unknown) (unknown) significant abrasion (uni ts (unknown) date) with large hematoma unknown) to the medial aspect of his left knee (unknown) (no (unknown) (unknown) sildenafil 100 mg (units (unknown) date) tablet 100 mg PO unknown) DAILY PRN Sexual Activity 11/15/19 11/15/19 (unknown) (no (unknown) (unknown) skin (units (unkno wn) date) unknown) (unknown) (no (unknown) (unknown) skin irritation (units (unknown) date) inferiorly am unknown) concerned that the medial hematoma may be infected (unknown) (no (unknown) (unknown) 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 He does of his son (unknown) (no (unknown) (unknown) spironolactone 25 (units (unknown) date) mg, torsemide 20 mg, unknown) Jardiance, lisinopril 2.5 mg, Xarelto 15 (unknown) (no (unknown) (unknown) subcutaneous (units (u nknown) date) solution (Lantus unknown) (unknown) (no (unknown) (unknown) superiorly and (units (unknown) date) inferiorly. Was unknown) discharged with pain control instructions to (unknown) (no (unknown) (unknown) suspicious (units (unk nown) date) unknown) (unknown) (no (unknown) (unknown) tablet (units (unkno wn) date) unknown) (unknown) (no (unknown) (unknown) testosterone (units (u nknown) date) cypionate 200 mg/mL unknown) ##0 07/08/12 (unknown) (no (unknown) (unknown) the following day (units (unknown) date) with complaints of unknown) increasing pain. Physical exam describes (unknown) (no (unknown) (unknown) the vastus medialis (unit s (unknown) date) muscle. unknown) (unknown) (no (unknown) (unknown) thickening. (units (un known) date) unknown) (unknown) (no (unknown) (unknown) to have heart (units ( unknown) date) failure, paroxysmal unknown) atrial fibrillation, coronary disease, (unknown) (no (unknown) (unknown) to his son's house (units (unknown) date) on aspirin, unknown) clopidogrel, metoprolol succinate 50 mg, (unknown) (no (unknown) (unknown) to the distal knee, (unit s (unknown) date) not crossing any unknown) joint and causing significant irritation (unknown) (no (unknown) (unknown) transfuse [Packed (units (unknown) date) Cells] Stat unknown) (unknown) (no (unknown) (unknown) unchecked. (units (unk nown) date) unknown) (unknown) (no (unknown) (unknown) underlying joint (units (unknown) date) space.? There might unknown) be slight thickening of the superficial (unknown) (no (unknown) (unknown) underlying joint.? (units (unknown) date) This is likely a unknown) hematoma or contusion given lack of (unknown) (no (unknown) (unknown) underlying skin (units (unknown) date) irritation shallow unknown) ulceration and developing cellulitis, (unknown) (no (unknown) (unknown) underwent PCI of the (uni ts (unknown) date) distal right coronary unknown) artery, had a transesophageal (unknown) (no (unknown) (unknown) ventricles are (units (unknown) date) symmetric in size and unknown) shape.? (unknown) (no (unknown) (unknown) ventricular ejection (uni ts (unknown) date) fraction at 15% with unknown) volume overload and tachycardia. He (unknown) (no (unknown) (unknown) white matter chronic (uni ts (unknown) date) small vessel ischemic unknown) changes.? There is intracranial (unknown) (no (unknown) (unknown) with concerns for (units (unknown) date) his overall unknown) well-being and concerned that ?times he is not (unknown) (no (unknown) (unknown) with bruising (units ( unknown) date) extending proximal unknown) and distal from his knee with minimal range of (unknown) (no (unknown) (unknown) zolpidem [From (units (unknown) date) Ambien] Allergy unknown) Confusion Verified 11/14/19 20:28 Result panel 30 (unknown) (no (unknown) (unknown) (no value) (units (unk nown) date) unknown) (unknown) (no (unknown) (unknown) My Impression: (units (unknown) date) unknown) (unknown) (no (unknown) (unknown) Radiologist's (units ( unknown) date) Impression: unknown) (unknown) (no (unknown) (unknown) Date of Service: (units (unknown) date) 01/26/22 unknown) (unknown) (no (unknown) (unknown) (no value) (units (unk nown) date) unknown) (unknown) (no (unknown) (unknown) 01/26/22 19:40 (units (unknown) date) unknown) (unknown) (no (unknown) (unknown) Admin: 01/26/22 (units (unknown) date) 20:35 Dose: 1,000 unknown) mls/hr (unknown) (no (unknown) (unknown) Admin: 01/26/22 (units (unknown) date) 20:35 Dose: 200 unknown) mls/hr (unknown) (no (unknown) (unknown) Admin: 01/26/22 (units (unknown) date) 20:36 Dose: 1,000 unknown) mls/hr (unknown) (no (unknown) (unknown) Admin: 01/26/22 (units (unknown) date) 21:32 Dose: 200 unknown) mls/hr (unknown) (no (unknown) (unknown) Allergies (units (unkn own) date) unknown) (unknown) (no (unknown) (unknown) Documented By: KH (units (unknown) date) unknown) (unknown) (no (unknown) (unknown) Documented By: OW (units (unknown) date) unknown) (unknown) (no (unknown) (unknown) Documented By: ZGG (units (unknown) date) unknown) (unknown) (no (unknown) (unknown) ED Orders (units (unkn own) date) unknown) (unknown) (no (unknown) (unknown) Emergency Report (units (unknown) date) unknown) (unknown) (no (unknown) (unknown) Home Medications (units (unknown) date) unknown) (unknown) (no (unknown) (unknown) Infusion: 01/26/22 (units (unknown) date) 21:00 Dose: 0 mls/hr unknown) (unknown) (no (unknown) (unknown) [facility] [id number] (unknown) date) [address] unknown) [place] [address] (unknown) (no (unknown) (unknown) Lab Results (units (un known) date) unknown) (unknown) (no (unknown) (unknown) Last Admin: 01/26/22 (uni ts (unknown) date) 22:33 Dose: Not Given unknown) (unknown) (no (unknown) (unknown) Last Admin: 01/27/22 (uni ts (unknown) date) 00:28 Dose: 80 mg unknown) (unknown) (no (unknown) (unknown) Last Infusion: (units (unknown) date) 01/26/22 21:00 Dose: unknown) 200 mls/hr (unknown) (no (unknown) (unknown) Last Infusion: (units (unknown) date) 01/26/22 22:33 Dose: unknown) 0 mls/hr (unknown) (no (unknown) (unknown) Last Infusion: (units (unknown) date) 01/26/22 22:34 Dose: unknown) 0 mls/hr (unknown) (no (unknown) (unknown) Stop: 01/26/22 20:08 (uni ts (unknown) date) unknown) (unknown) (no (unknown) (unknown) Stop: 01/26/22 20:51 (uni ts (unknown) date) unknown) (unknown) (no (unknown) (unknown) Stop: 01/26/22 21:09 (uni ts (unknown) date) unknown) (unknown) (no (unknown) (unknown) Stop: 01/26/22 22:14 (uni ts (unknown) date) unknown) (unknown) (no (unknown) (unknown) Stop: 01/27/22 00:25 (uni ts (unknown) date) unknown) (unknown) (no (unknown) (unknown) Urine Dip (units (unkn own) date) unknown) (unknown) (no (unknown) (unknown) Vital Signs - 8 hr (units (unknown) date) unknown) (unknown) (no (unknown) (unknown) (no value) (units (unk nown) date) unknown) (unknown) (no (unknown) (unknown) 01/26/22 01/26/22 (units (unknown) date) 01/26/22 Range/Units unknown) (unknown) (no (unknown) (unknown) 01/26/22 01/26/22 (units (unknown) date) Range/Units unknown) (unknown) (no (unknown) (unknown) 19:40 19:40 19:40 (units (unknown) date) unknown) (unknown) (no (unknown) (unknown) 20:21 20:47 (units (un known) date) unknown) (unknown) (no (unknown) (unknown) 01/26/22 (units (unkno wn) date) unknown) (unknown) (no (unknown) (unknown) ABLA (acute blood (units (unknown) date) loss anemia), unknown) Hematoma of left knee region, Acute CHF, Acute (unknown) (no (unknown) (unknown) CT of the a lower (units (unknown) date) extremity in knee unknown) shows a large irregular medial soft tissue (unknown) (no (unknown) (unknown) He is weak, (units (un known) date) confused, cooperative unknown) he has an ortho glass splint on the medial (unknown) (no (unknown) (unknown) Medication (units (unk nown) date) Instructions Recorded unknown) Confirmed (unknown) (no (unknown) (unknown) any also has skin (units (unknown) date) irritation and unknown) developing cellulitis in the left forearm with (unknown) (no (unknown) (unknown) catheterization and (unit s (unknown) date) had PCI of the distal unknown) right coronary artery and also found (unknown) (no (unknown) (unknown) deep (units (unkno wn) date) unknown) (unknown) (no (unknown) (unknown) dressings that (units (unknown) date) appear to been in unknown) place for a number of days and unchanged and (unknown) (no (unknown) (unknown) failure (units (unkno wn) date) unknown) (unknown) (no (unknown) (unknown) he was seen at (units (unknown) date) [facility] on unknown) January 23 and with a ground level fall (unknown) (no (unknown) (unknown) injuring his left (units (unknown) date) knee that had unknown) occurred on or about January 20. On the (unknown) (no (unknown) (unknown) into they large (units (unknown) date) hematoma on the unknown) medial aspect of the left knee. He does not (unknown) (no (unknown) (unknown) mg nightly and as (units (unknown) date) needed nitroglycerin. unknown) (unknown) (no (unknown) (unknown) suspect the acute (units (unknown) date) kidney injury is from unknown) volume loss is secondary to the blood (unknown) (no (unknown) (unknown) (Depo-Testosterone) (unit s (unknown) date) unknown) (unknown) (no (unknown) (unknown) (GLUCOPHAGE) (units (u nknown) date) unknown) (unknown) (no (unknown) (unknown) 01/26/22 19:40 (units (unknown) date) unknown) (unknown) (no (unknown) (unknown) 01/26/22 19:45 (units (unknown) date) unknown) (unknown) (no (unknown) (unknown) 01/26/22 19:52 (units (unknown) date) unknown) (unknown) (no (unknown) (unknown) 01/26/22 20:07 (units (unknown) date) unknown) (unknown) (no (unknown) (unknown) 01/26/22 20:09 (units (unknown) date) unknown) (unknown) (no (unknown) (unknown) 01/26/22 20:15 (units (unknown) date) unknown) (unknown) (no (unknown) (unknown) 01/26/22 20:21 (units (unknown) date) unknown) (unknown) (no (unknown) (unknown) 01/26/22 20:47 (units (unknown) date) unknown) (unknown) (no (unknown) (unknown) 01/26/22 21:56 (units (unknown) date) unknown) (unknown) (no (unknown) (unknown) 1. Mildly hyperdense, (uni ts (unknown) date) irregular medial soft unknown) tissue mass without extension to the (unknown) (no (unknown) (unknown) 1. No CT evidence of (uni ts (unknown) date) acute intracranial unknown) process.? (unknown) (no (unknown) (unknown) 19:44 01/26/22 (units (unknown) date) unknown) (unknown) (no (unknown) (unknown) 2. Age-appropriate (units (unknown) date) cerebral cortical unknown) volume loss and chronic microvascular (unknown) (no (unknown) (unknown) 2. No evidence of (units (unknown) date) underlying unknown) osteomyelitis. (unknown) (no (unknown) (unknown) 20:34 01/26/22 (units (unknown) date) unknown) (unknown) (no (unknown) (unknown) 20:41 (units (unkno wn) date) unknown) (unknown) (no (unknown) (unknown) 21:00 01/26/22 (units (unknown) date) unknown) (unknown) (no (unknown) (unknown) 21:25 (units (unkno wn) date) unknown) (unknown) (no (unknown) (unknown) 21:25 01/26/22 (units (unknown) date) unknown) (unknown) (no (unknown) (unknown) 21:30 (units (unkno wn) date) unknown) (unknown) (no (unknown) (unknown) 21:30 01/26/22 (units (unknown) date) unknown) (unknown) (no (unknown) (unknown) 21:45 (units (unkno wn) date) unknown) (unknown) (no (unknown) (unknown) 21:45 01/26/22 (units (unknown) date) unknown) (unknown) (no (unknown) (unknown) 22:00 01/26/22 (units (unknown) date) unknown) (unknown) (no (unknown) (unknown) 22:15 (units (unkno wn) date) unknown) (unknown) (no (unknown) (unknown) 22:15 01/26/22 (units (unknown) date) unknown) (unknown) (no (unknown) (unknown) 22:30 (units (unkno wn) date) unknown) (unknown) (no (unknown) (unknown) 22:30 01/26/22 (units (unknown) date) unknown) (unknown) (no (unknown) (unknown) 22:35 01/26/22 (units (unknown) date) unknown) (unknown) (no (unknown) (unknown) 22:36 01/26/22 (units (unknown) date) unknown) (unknown) (no (unknown) (unknown) 22:45 (units (unkno wn) date) unknown) (unknown) (no (unknown) (unknown) 22:45 01/26/22 (units (unknown) date) unknown) (unknown) (no (unknown) (unknown) 22:50 (units (unkno wn) date) unknown) (unknown) (no (unknown) (unknown) 22:51 01/26/22 (units (unknown) date) unknown) (unknown) (no (unknown) (unknown) 23:00 01/26/22 (units (unknown) date) unknown) (unknown) (no (unknown) (unknown) 23:01 (units (unkno wn) date) unknown) (unknown) (no (unknown) (unknown) 23:01 01/26/22 (units (unknown) date) unknown) (unknown) (no (unknown) (unknown) 23:04 01/26/22 (units (unknown) date) unknown) (unknown) (no (unknown) (unknown) 23:07 (units (unkno wn) date) unknown) (unknown) (no (unknown) (unknown) 23:15 (units (unkno wn) date) unknown) (unknown) (no (unknown) (unknown) 23:15 01/26/22 (units (unknown) date) unknown) (unknown) (no (unknown) (unknown) 23:30 01/26/22 (units (unknown) date) unknown) (unknown) (no (unknown) (unknown) 23:45 (units (unkno wn) date) unknown) (unknown) (no (unknown) (unknown) 3. 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 (unknown) (no (unknown) (unknown) 3. Very small (units ( unknown) date) nonspecific knee unknown) joint effusion.? (unknown) (no (unknown) (unknown) [id number] (units (unkno wn) date) unknown) (unknown) (no (unknown) (unknown) 76-year-old (units (un known) date) gentleman with a unknown) history of coronary artery disease post CABG x4, (unknown) (no (unknown) (unknown) 8.0 cm in AP (units (u nknown) date) diameter, and about unknown) 3.5 cm in thickness.? There is no extension (unknown) (no (unknown) (unknown) ? (units (unkno wn) date) unknown) (unknown) (no (unknown) (unknown) ALT (<50) IU/L (units (unknown) date) unknown) (unknown) (no (unknown) (unknown) ALT 27 (<50) IU/L (units (unknown) date) unknown) (unknown) (no (unknown) (unknown) AST (17-59) IU/L (units (unknown) date) unknown) (unknown) (no (unknown) (unknown) AST 28 (17-59) IU/L (unit s (unknown) date) unknown) (unknown) (no (unknown) (unknown) Abdomen: Soft, mild (unit s (unknown) date) distention but unknown) nontender, good bowel tones, no flank pain (unknown) (no (unknown) (unknown) Age/Sex: 76 / M (units (unknown) date) unknown) (unknown) (no (unknown) (unknown) Albumin (3.5-5.0) (units (unknown) date) g/dL unknown) (unknown) (no (unknown) (unknown) Albumin 3.6 (units (un known) date) (3.5-5.0) g/dL unknown) (unknown) (no (unknown) (unknown) Albumin/Globulin (units (unknown) date) Ratio (1.0-2.8) unknown) (unknown) (no (unknown) (unknown) Albumin/Globulin (units (unknown) date) Ratio 1.0 (1.0-2.8) unknown) (unknown) (no (unknown) (unknown) Alkaline Phosphatase (uni ts (unknown) date) (38-126) U/L unknown) (unknown) (no (unknown) (unknown) Alkaline Phosphatase (uni ts (unknown) date) 170 H (38-126) U/L unknown) (unknown) (no (unknown) (unknown) Allergy/AdvReac Type (uni ts (unknown) date) Severity Reaction unknown) Status Date / Time (unknown) (no (unknown) (unknown) Anisocytosis (units (u nknown) date) unknown) (unknown) (no (unknown) (unknown) Anisocytosis 3+ H (units (unknown) date) unknown) (unknown) (no (unknown) (unknown) Anti-Inflamma (units ( unknown) date) disease unknown) (unknown) (no (unknown) (unknown) Antibody Screen (units (unknown) date) unknown) (unknown) (no (unknown) (unknown) Antibody Screen (units (unknown) date) Negative unknown) (unknown) (no (unknown) (unknown) Atrial fibrillation (unit s (unknown) date) unknown) (unknown) (no (unknown) (unknown) January 06. 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 (unknown) (no (unknown) (unknown) BUN (9-20) mg/dL (units (unknown) date) unknown) (unknown) (no (unknown) (unknown) BUN 61 H (9-20) (units (unknown) date) mg/dL unknown) (unknown) (no (unknown) (unknown) BUN/Creatinine Ratio (uni ts (unknown) date) (6-22) unknown) (unknown) (no (unknown) (unknown) BUN/Creatinine Ratio (uni ts (unknown) date) 19.2 (6-22) unknown) (unknown) (no (unknown) (unknown) Baso # (Auto) (units ( unknown) date) (0-100) /uL unknown) (unknown) (no (unknown) (unknown) Baso # (Auto) 100 (units (unknown) date) (0-100) /uL unknown) (unknown) (no (unknown) (unknown) Baso % (Auto) (0-2) (unit s (unknown) date) % unknown) (unknown) (no (unknown) (unknown) Baso % (Auto) 1.0 (units (unknown) date) (0-2) % unknown) (unknown) (no (unknown) (unknown) Bedside Urine (units ( unknown) date) Bilirubin - Negative unknown) (unknown) (no (unknown) (unknown) Bedside Urine (units ( unknown) date) Glucose 500 mg/dl unknown) (unknown) (no (unknown) (unknown) Bedside Urine Ketone (uni ts (unknown) date) - Negative unknown) (unknown) (no (unknown) (unknown) Bedside Urine (units ( unknown) date) Leukocytes +/- 15 unknown) (unknown) (no (unknown) (unknown) Bedside Urine (units ( unknown) date) Nitrite - Negative unknown) (unknown) (no (unknown) (unknown) Bedside Urine Occult (uni ts (unknown) date) Blood +/- unknown) (unknown) (no (unknown) (unknown) Bedside Urine (units ( unknown) date) Protein - Negative unknown) (unknown) (no (unknown) (unknown) Bedside Urine (units ( unknown) date) Urobilinogen - unknown) Negative (unknown) (no (unknown) (unknown) Bedside Urine pH 5.5 (uni ts (unknown) date) unknown) (unknown) (no (unknown) (unknown) Blood Culture Stat (units (unknown) date) unknown) (unknown) (no (unknown) (unknown) Blood Pressure (units (unknown) date) 102/52 L 98/52 L unknown) (unknown) (no (unknown) (unknown) Blood Pressure 78/54 (uni ts (unknown) date) L 01/26/22 19:44 unknown) (unknown) (no (unknown) (unknown) Blood Pressure 95/53 (uni ts (unknown) date) L unknown) (unknown) (no (unknown) (unknown) Blood Pressure 95/54 (uni ts (unknown) date) L unknown) (unknown) (no (unknown) (unknown) Blood Pressure 95/55 (uni ts (unknown) date) L unknown) (unknown) (no (unknown) (unknown) Blood Pressure (units (unknown) date) 102/53 L unknown) (unknown) (no (unknown) (unknown) Blood Pressure 78/54 (uni ts (unknown) date) L 102/52 L unknown) (unknown) (no (unknown) (unknown) Blood Pressure 90/50 (uni ts (unknown) date) L 92/51 L unknown) (unknown) (no (unknown) (unknown) Blood Pressure 94/46 (uni ts (unknown) date) L 95/55 L 98/52 L unknown) (unknown) (no (unknown) (unknown) Blood Pressure 96/53 (uni ts (unknown) date) L unknown) (unknown) (no (unknown) (unknown) Blood Pressure 97/52 (uni ts (unknown) date) L 101/54 L unknown) (unknown) (no (unknown) (unknown) Blood Pressure 98/52 (uni ts (unknown) date) L unknown) (unknown) (no (unknown) (unknown) Blood Pressure 98/52 (uni ts (unknown) date) L 95/54 L 95/50 L unknown) (unknown) (no (unknown) (unknown) Blood Pressure 98/52 (uni ts (unknown) date) L 97/52 L 102/53 L unknown) (unknown) (no (unknown) (unknown) Blood Type (units (unk nown) date) unknown) (unknown) (no (unknown) (unknown) Blood Type A (units (u nknown) date) Negative unknown) (unknown) (no (unknown) (unknown) Bones:? No (units (unk nown) date) fractures.? Normal unknown) bone alignment.? 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 No (units (unk nown) date) intracranial bleeds unknown) or masses.? There is cerebral volume loss for (unknown) (no (unknown) (unknown) COVID19 -Nasal (units (unknown) date) RAPID/Pre-Proc Stat unknown) (unknown) (no (unknown) (unknown) CSF spaces:? Basal (units (unknown) date) cisterns are patent.? unknown) No extra-axial fluid collections.? The (unknown) (no (unknown) (unknown) CT LE LT wo con Stat (uni ts (unknown) date) unknown) (unknown) (no (unknown) (unknown) CT Left lower (units ( unknown) date) extremity: unknown) (unknown) (no (unknown) (unknown) CT head/brain wo con (uni ts (unknown) date) Stat unknown) (unknown) (no (unknown) (unknown) CT scan - head: (units (unknown) date) unknown) (unknown) (no (unknown) (unknown) Calcium (8.4-10.2) (units (unknown) date) mg/dL unknown) (unknown) (no (unknown) (unknown) Calcium 8.4 (units (un known) date) (8.4-10.2) mg/dL unknown) (unknown) (no (unknown) (unknown) Carbon Dioxide (units (unknown) date) (22-32) mmol/L unknown) (unknown) (no (unknown) (unknown) Carbon Dioxide 27 (units (unknown) date) (22-32) mmol/L unknown) (unknown) (no (unknown) (unknown) Cardiac: Regular (units (unknown) date) rate and rhythm no unknown) murmurs no bruits (unknown) (no (unknown) (unknown) Chief complaint: (units (unknown) date) Skin/Abscess/Foreign unknown) Body (unknown) (no (unknown) (unknown) Chloride (98-107) (units (unknown) date) mmol/L unknown) (unknown) (no (unknown) (unknown) Chloride 97 L (units ( unknown) date) (98-107) mmol/L unknown) (unknown) (no (unknown) (unknown) Clinical Impression: (uni ts (unknown) date) unknown) (unknown) (no (unknown) (unknown) Complete Blood Count (uni ts (unknown) date) AUTO DIFF Stat unknown) (unknown) (no (unknown) (unknown) Comprehensive (units ( unknown) date) Metabolic Panel Stat unknown) (unknown) (no (unknown) (unknown) Coronary artery (units (unknown) date) disease unknown) (unknown) (no (unknown) (unknown) Course (units (unkno wn) date) unknown) (unknown) (no (unknown) (unknown) Creatinine (units (unk nown) date) (0.66-1.25) mg/dL unknown) (unknown) (no (unknown) (unknown) Creatinine 3.18 H (units (unknown) date) (0.66-1.25) mg/dL unknown) (unknown) (no (unknown) (unknown) Crossmatch (units (unk nown) date) unknown) (unknown) (no (unknown) (unknown) Crossmatch See (units (unknown) date) Detail unknown) (unknown) (no (unknown) (unknown) : 1945 (units (unknown) date) Acct:[id number] unknown) (unknown) (no (unknown) (unknown) Departure (units (unkn own) date) unknown) (unknown) (no (unknown) (unknown) Diabetes (units (unkno wn) date) unknown) (unknown) (no (unknown) (unknown) Dictated by: Brittny (uni ts (unknown) date) Carlos Moran on unknown) 01/26/2022 at 21:07 ? ? (unknown) (no (unknown) (unknown) Dictated by: Brittny (uni ts (unknown) date) Carlos Moran on unknown) 01/26/2022 at 21:10 ? ? (unknown) (no (unknown) (unknown) Discharge Plan (units (unknown) date) unknown) (unknown) (no (unknown) (unknown) Discontinued (units (u nknown) date) Medications unknown) (unknown) (no (unknown) (unknown) Dyslipidemia (units (u nknown) date) unknown) (unknown) (no (unknown) (unknown) ECG Data (units (unkno wn) date) unknown) (unknown) (no (unknown) (unknown) EKG-12 Lead Stat (units (unknown) date) unknown) (unknown) (no (unknown) (unknown) ER Physician: (units ( unknown) date) Ashley Glynn MD unknown) (unknown) (no (unknown) (unknown) Eos # (Auto) (0-450) (uni ts (unknown) date) /uL unknown) (unknown) (no (unknown) (unknown) Eos # (Auto) 200 (units (unknown) date) (0-450) /uL unknown) (unknown) (no (unknown) (unknown) Eos % (Auto) (2-4) % (uni ts (unknown) date) unknown) (unknown) (no (unknown) (unknown) Eos % (Auto) 2.8 (units (unknown) date) (2-4) % unknown) (unknown) (no (unknown) (unknown) Esterase (units (unkno wn) date) unknown) (unknown) (no (unknown) (unknown) Estimated GFR (>60) (unit s (unknown) date) mL/min unknown) (unknown) (no (unknown) (unknown) Estimated GFR 19 L (units (unknown) date) (>60) mL/min unknown) (unknown) (no (unknown) (unknown) Exam (units (unkno wn) date) unknown) (unknown) (no (unknown) (unknown) Extremities: Left (units (unknown) date) leg is described unknown) under the skin exam. Reasonable capillary (unknown) (no (unknown) (unknown) FINDINGS:? (units (unk nown) date) unknown) (unknown) (no (unknown) (unknown) Full and symmetrical (uni ts (unknown) date) air movement unknown) (unknown) (no (unknown) (unknown) Furosemide (units (unk nown) date) (Furosemide 100 Mg/10 unknown) Ml Vial) 80 mg IV NOW ONE (unknown) (no (unknown) (unknown) General (units (unkno wn) date) unknown) (unknown) (no (unknown) (unknown) General: Chronically (unit s (unknown) date) ill-appearing, pale, unknown) weak but in no acute distress. He is (unknown) (no (unknown) (unknown) GenericComposite[Plt (uni ts (unknown) date) Count (150-400) unknown) X10^3/uL ] (unknown) (no (unknown) (unknown) GenericComposite[Plt (uni ts (unknown) date) Count 206 (150-400) unknown) X10^3/uL ] (unknown) (no (unknown) (unknown) GenericComposite[RBC (uni ts (unknown) date) (4.5-5.9) X10^6/uL ] unknown) (unknown) (no (unknown) (unknown) GenericComposite[RBC (uni ts (unknown) date) 2.75 L (4.5-5.9) unknown) X10^6/uL ] (unknown) (no (unknown) (unknown) GenericComposite[WBC (uni ts (unknown) date) (4.5-11.0) X10^3/uL ] unknown) (unknown) (no (unknown) (unknown) GenericComposite[WBC (uni ts (unknown) date) 7.1 (4.5-11.0) unknown) X10^3/uL ] (unknown) (no (unknown) (unknown) Globulin (1.7-4.1) (units (unknown) date) g/dL unknown) (unknown) (no (unknown) (unknown) Globulin 3.5 (units (u nknown) date) (1.7-4.1) g/dL unknown) (unknown) (no (unknown) (unknown) Glucose (80-110) (units (unknown) date) mg/dL unknown) (unknown) (no (unknown) (unknown) Glucose 130 H (units ( unknown) date) (80-110) mg/dL unknown) (unknown) (no (unknown) (unknown) HEENT: Moist mucous (unit s (unknown) date) membranes, normal unknown) sclera with reactive pupils, pale mucous (unknown) (no (unknown) (unknown) HPI - General Adult (unit s (unknown) date) unknown) (unknown) (no (unknown) (unknown) HPI narrative: (units (unknown) date) unknown) (unknown) (no (unknown) (unknown) Have spoken with his (uni ts (unknown) date) son and medical unknown) records are now available for review. (unknown) (no (unknown) (unknown) Hct (41-53) % (units ( unknown) date) unknown) (unknown) (no (unknown) (unknown) Hct 20.8 L* (41-53) (unit s (unknown) date) % unknown) (unknown) (no (unknown) (unknown) He was admitted at (units (unknown) date) [facility] on January unknown) through January 13 for elective heart (unknown) (no (unknown) (unknown) [id number] decompensated heart (unknown) (no (unknown) (unknown) Hgb (13.5-17.5) g/dL (uni ts (unknown) date) unknown) (unknown) (no (unknown) (unknown) Hgb 6.7 L* (units (unk nown) date) (13.5-17.5) g/dL unknown) (unknown) (no (unknown) (unknown) His son noted him to (uni ts (unknown) date) be increasingly weak unknown) this morning and he comes in (unknown) (no (unknown) (unknown) History of Present (units (unknown) date) Illness unknown) (unknown) (no (unknown) (unknown) Hx of (units (unkno wn) date) cholecystectomy unknown) (unknown) (no (unknown) (unknown) Hypertension (units (u nknown) date) unknown) (unknown) (no (unknown) (unknown) IMPRESSION:? (units (u nknown) date) unknown) (unknown) (no (unknown) (unknown) IV NOW ONE (units (unk nown) date) unknown) (unknown) (no (unknown) (unknown) Image quality:? (units (unknown) date) Excellent.? unknown) (unknown) (no (unknown) (unknown) Imaging Data (units (u nknown) date) unknown) (unknown) (no (unknown) (unknown) In the absence of (units (unknown) date) fever, leukocytosis, unknown) elevated lactic acid and alternative (unknown) (no (unknown) (unknown) Initial Vital Signs (unit s (unknown) date) unknown) (unknown) (no (unknown) (unknown) Initial Vital Signs: (uni ts (unknown) date) unknown) (unknown) (no (unknown) (unknown) Initial concern was (unit s (unknown) date) for sepsis and he was unknown) given Zosyn and vancomycin. As labs (unknown) (no (unknown) (unknown) Interpretation: (units (unknown) date) unknown) (unknown) (no (unknown) (unknown) Lab Data (units (unkno wn) date) unknown) (unknown) (no (unknown) (unknown) Labs: (units (unkno wn) date) unknown) (unknown) (no (unknown) (unknown) Lactate (0.7-2.1) (units (unknown) date) mmol/L unknown) (unknown) (no (unknown) (unknown) Lactate 1.3 (units (un known) date) (0.7-2.1) mmol/L unknown) (unknown) (no (unknown) (unknown) Lactate (Lactic (units (unknown) date) Acid) Stat unknown) (unknown) (no (unknown) (unknown) Lipase (23-300) U/L (unit s (unknown) date) unknown) (unknown) (no (unknown) (unknown) Lipase 135 (23-300) (unit s (unknown) date) U/L unknown) (unknown) (no (unknown) (unknown) Lipase Stat (units (un known) date) unknown) (unknown) (no (unknown) (unknown) Lymph # (Auto) (units (unknown) date) (1242-8002) /uL unknown) (unknown) (no (unknown) (unknown) Lymph # (Auto) 800 L (uni ts (unknown) date) (0355-5572) /uL unknown) (unknown) (no (unknown) (unknown) Lymph % (Auto) (units (unknown) date) (25-40) % unknown) (unknown) (no (unknown) (unknown) Lymph % (Auto) 11.4 (unit s (unknown) date) L (25-40) % unknown) (unknown) (no (unknown) (unknown) MCH (26-34) PG (units (unknown) date) unknown) (unknown) (no (unknown) (unknown) MCH 24.6 L (26-34) (units (unknown) date) PG unknown) (unknown) (no (unknown) (unknown) MCHC (30-36) % (units (unknown) date) unknown) (unknown) (no (unknown) (unknown) MCHC 32.4 (30-36) % (unit s (unknown) date) unknown) (unknown) (no (unknown) (unknown) MCV (80-100) fL (units (unknown) date) unknown) (unknown) (no (unknown) (unknown) MCV 75.7 L (80-100) (unit s (unknown) date) fL unknown) (unknown) (no (unknown) (unknown) MDM Narrative (units ( unknown) date) unknown) (unknown) (no (unknown) (unknown) Medical Decision (units (unknown) date) Making unknown) (unknown) (no (unknown) (unknown) Medical History (units (unknown) date) (Updated 01/27/22 @ unknown) 00:29 by Ashley Glynn MD) (unknown) (no (unknown) (unknown) Medical decision (units (unknown) date) making narrative: unknown) (unknown) (no (unknown) (unknown) Metformin (units (unkn own) date) Hydrochloride 1,275 unknown) mg PO BID ##0 07/08/12 (unknown) (no (unknown) (unknown) Lajas # (Auto) (units ( unknown) date) (0-900) /uL unknown) (unknown) (no (unknown) (unknown) Lajas # (Auto) 700 (units (unknown) date) (0-900) /uL unknown) (unknown) (no (unknown) (unknown) Lajas % (Auto) (3-14) (uni ts (unknown) date) % unknown) (unknown) (no (unknown) (unknown) Lajas % (Auto) 9.8 (units (unknown) date) (3-14) % unknown) (unknown) (no (unknown) (unknown) NSAIDS (units (unkno wn) date) (Non-Steroidal unknown) AdvReac Severe kidney Verified 11/14/19 20:28 (unknown) (no (unknown) (unknown) Neck: No JVD, supple (uni ts (unknown) date) unknown) (unknown) (no (unknown) (unknown) Neurologic: Globally (uni ts (unknown) date) weak but able to move unknown) all extremities (unknown) (no (unknown) (unknown) Neut # (Auto) (units ( unknown) date) (1275-1342) /uL unknown) (unknown) (no (unknown) (unknown) Neut # (Auto) 5400 (units (unknown) date) (0427-0725) /uL unknown) (unknown) (no (unknown) (unknown) Neut % (Auto) (units ( unknown) date) (50-75) % unknown) (unknown) (no (unknown) (unknown) Neut % (Auto) 75.0 (units (unknown) date) (50-75) % unknown) (unknown) (no (unknown) (unknown) ONE (units (unkno wn) date) unknown) (unknown) (no (unknown) (unknown) Ordered: (units (unkno wn) date) unknown) (unknown) (no (unknown) (unknown) Orders (units (unkno wn) date) unknown) (unknown) (no (unknown) (unknown) Oxygen Delivery (units (unknown) date) Method unknown) (unknown) (no (unknown) (unknown) Oxygen Delivery (units (unknown) date) Method 01/26/22 19:44 unknown) (unknown) (no (unknown) (unknown) Oxygen Delivery (units (unknown) date) Method unknown) (unknown) (no (unknown) (unknown) Oxygen Delivery (units (unknown) date) Method Room Air unknown) (unknown) (no (unknown) (unknown) Patient Disposition: (uni ts (unknown) date) Admitted As Inpatient unknown) (unknown) (no (unknown) (unknown) Patient History (units (unknown) date) unknown) (unknown) (no (unknown) (unknown) Patient was (units (un known) date) discharged [facility] for acute congestive heart failure on (unknown) (no (unknown) (unknown) Patient: (units (unkno wn) date) Osmel Baxter MR#: unknown) M000 (unknown) (no (unknown) (unknown) Piperacillin (units (u nknown) date) Sod/Tazobactam (Sod unknown) 4.5 gm/ Sodium Chloride) 100 mls @ 200 mls/hr (unknown) (no (unknown) (unknown) Point of care (units ( unknown) date) testing: unknown) (unknown) (no (unknown) (unknown) Potassium (3.4-5.1) (unit s (unknown) date) mmol/L unknown) (unknown) (no (unknown) (unknown) Potassium 4.3 (units ( unknown) date) (3.4-5.1) mmol/L unknown) (unknown) (no (unknown) (unknown) Procalcitonin (<0.5) (uni ts (unknown) date) ng/mL unknown) (unknown) (no (unknown) (unknown) Procalcitonin 0.50 (units (unknown) date) (<0.5) ng/mL unknown) (unknown) (no (unknown) (unknown) Procalcitonin Stat (units (unknown) date) unknown) (unknown) (no (unknown) (unknown) Psych: Will respond (unit s (unknown) date) to yes or no unknown) questions but otherwise altered. (unknown) (no (unknown) (unknown) Pulse Oximetry (units (unknown) date) unknown) (unknown) (no (unknown) (unknown) Pulse Oximetry (units (unknown) date) unknown) (unknown) (no (unknown) (unknown) Pulse Oximetry 98 (units (unknown) date) unknown) (unknown) (no (unknown) (unknown) Pulse Oximetry 100 (units (unknown) date) unknown) (unknown) (no (unknown) (unknown) Pulse Oximetry 89 L (unit s (unknown) date) 98 unknown) (unknown) (no (unknown) (unknown) Pulse Oximetry 97 (units (unknown) date) unknown) (unknown) (no (unknown) (unknown) Pulse Oximetry 97 (units (unknown) date) 01/26/22 19:44 unknown) (unknown) (no (unknown) (unknown) Pulse Oximetry 97 99 (uni ts (unknown) date) unknown) (unknown) (no (unknown) (unknown) Pulse Oximetry 100 (units (unknown) date) 100 unknown) (unknown) (no (unknown) (unknown) Pulse Oximetry 100 (units (unknown) date) 99 unknown) (unknown) (no (unknown) (unknown) Pulse Oximetry 97 98 (uni ts (unknown) date) unknown) (unknown) (no (unknown) (unknown) Pulse Oximetry 99 (units (unknown) date) unknown) (unknown) (no (unknown) (unknown) Pulse Rate (units (unk nown) date) unknown) (unknown) (no (unknown) (unknown) Pulse Rate 61 62 (units (unknown) date) unknown) (unknown) (no (unknown) (unknown) Pulse Rate 63 (units ( unknown) date) unknown) (unknown) (no (unknown) (unknown) Pulse Rate 64 64 (units (unknown) date) unknown) (unknown) (no (unknown) (unknown) Pulse Rate 65 (units ( unknown) date) 01/26/22 19:44 unknown) (unknown) (no (unknown) (unknown) Pulse Rate 62 62 (units (unknown) date) unknown) (unknown) (no (unknown) (unknown) Pulse Rate 63 63 62 (unit s (unknown) date) unknown) (unknown) (no (unknown) (unknown) Pulse Rate 64 (units ( unknown) date) unknown) (unknown) (no (unknown) (unknown) Pulse Rate 64 63 (units (unknown) date) unknown) (unknown) (no (unknown) (unknown) Pulse Rate 64 64 (units (unknown) date) unknown) (unknown) (no (unknown) (unknown) Pulse Rate 64 62 62 (unit s (unknown) date) unknown) (unknown) (no (unknown) (unknown) Pulse Rate 64 64 65 (unit s (unknown) date) unknown) (unknown) (no (unknown) (unknown) Pulse Rate 65 65 64 (unit s (unknown) date) unknown) (unknown) (no (unknown) (unknown) RBC Morphology (units (unknown) date) unknown) (unknown) (no (unknown) (unknown) RBC Morphology Not (units (unknown) date) Reportable unknown) (unknown) (no (unknown) (unknown) RDW (11.6-14.8) % (units (unknown) date) unknown) (unknown) (no (unknown) (unknown) RDW 24.5 H (units (unk nown) date) (11.6-14.8) % unknown) (unknown) (no (unknown) (unknown) ROS Unobtainable: (units (unknown) date) Unobtainable due to unknown) mental condition (unknown) (no (unknown) (unknown) RT Consult Eval and (unit s (unknown) date) Treat NOW unknown) (unknown) (no (unknown) (unknown) Related Data (units (u nknown) date) unknown) (unknown) (no (unknown) (unknown) Respiratory Rate (units (unknown) date) unknown) (unknown) (no (unknown) (unknown) Respiratory Rate 15 (unit s (unknown) date) unknown) (unknown) (no (unknown) (unknown) Respiratory Rate 20 (unit s (unknown) date) 21 unknown) (unknown) (no (unknown) (unknown) Respiratory Rate 20 (unit s (unknown) date) 26 H unknown) (unknown) (no (unknown) (unknown) Respiratory Rate 21 (unit s (unknown) date) unknown) (unknown) (no (unknown) (unknown) Respiratory Rate 21 (unit s (unknown) date) 01/26/22 19:44 unknown) (unknown) (no (unknown) (unknown) Respiratory Rate 14 (unit s (unknown) date) 13 unknown) (unknown) (no (unknown) (unknown) Respiratory Rate 17 (unit s (unknown) date) unknown) (unknown) (no (unknown) (unknown) Respiratory Rate 18 (unit s (unknown) date) 14 21 unknown) (unknown) (no (unknown) (unknown) Respiratory Rate 18 (unit s (unknown) date) 15 18 unknown) (unknown) (no (unknown) (unknown) Respiratory Rate 19 (unit s (unknown) date) 16 unknown) (unknown) (no (unknown) (unknown) Respiratory Rate 20 (unit s (unknown) date) 24 unknown) (unknown) (no (unknown) (unknown) Respiratory Rate 20 (unit s (unknown) date) 12 18 unknown) (unknown) (no (unknown) (unknown) Respiratory Rate 21 (unit s (unknown) date) 17 17 unknown) (unknown) (no (unknown) (unknown) Respiratory: Lungs (units (unknown) date) are clear to unknown) auscultation, no wheezing no rales no rhonchi. (unknown) (no (unknown) (unknown) Result diagrams: (units (unknown) date) unknown) (unknown) (no (unknown) (unknown) Review of Systems (units (unknown) date) unknown) (unknown) (no (unknown) (unknown) S/P CABG x 4 (units (u nknown) date) unknown) (unknown) (no (unknown) (unknown) SARS-CoV-2 (PCR) (units (unknown) date) (Negative) unknown) (unknown) (no (unknown) (unknown) SARS-CoV-2 (PCR) (units (unknown) date) Negative (Negative) unknown) (unknown) (no (unknown) (unknown) [facility] who will (unit s (unknown) date) follow-up on this to unknown) see if additional records are present. (unknown) (no (unknown) (unknown) Signed By: (units (unk nown) date) unknown) (unknown) (no (unknown) (unknown) Sinus rhythm, left (units (unknown) date) bundle-branch block, unknown) no acute ischemic changes, rate of 67 (unknown) (no (unknown) (unknown) Sinuses:? Mucosal (units (unknown) date) thickening and small unknown) fluid level in the left maxillary sinus.? (unknown) (no (unknown) (unknown) Skin: Pale, Warm and (uni ts (unknown) date) dry, multiple bruises unknown) some look like there from recent (unknown) (no (unknown) (unknown) Skull and face:? (units (unknown) date) Calvarium and unknown) visualized facial bones appear intact, without (unknown) (no (unknown) (unknown) Sleep apnea (units (un known) date) unknown) (unknown) (no (unknown) (unknown) Smoking Status: (units (unknown) date) Former smoker unknown) (unknown) (no (unknown) (unknown) Smoking Status: (units (unknown) date) Former smoker unknown) (unknown) (no (unknown) (unknown) Social History (units (unknown) date) (Updated 09/25/18 @ unknown) 11:17 by Telma Dickey DO) (unknown) (no (unknown) (unknown) Sodium (137-145) (units (unknown) date) mmol/L unknown) (unknown) (no (unknown) (unknown) Sodium 132 L (units (u nknown) date) (137-145) mmol/L unknown) (unknown) (no (unknown) (unknown) Sodium Chloride (units (unknown) date) (Normal Saline 0.9%) unknown) 1,000 mls @ 1,000 mls/hr IV BOLUS ONE (unknown) (no (unknown) (unknown) Soft tissues:? There (uni ts (unknown) date) are surgical clips in unknown) the medial leg.? In the medial leg, (unknown) (no (unknown) (unknown) Stated complaint: (units (unknown) date) Dementia unknown) (unknown) (no (unknown) (unknown) Substance Use Type: (unit s (unknown) date) does not use unknown) (unknown) (no (unknown) (unknown) Surgical History (units (unknown) date) (Reviewed 11/15/19 @ unknown) 04:28 by MEKA Garcia) (unknown) (no (unknown) (unknown) Temperature (units (un known) date) unknown) (unknown) (no (unknown) (unknown) Temperature (units (un known) date) unknown) (unknown) (no (unknown) (unknown) Temperature 96.3 F L (uni ts (unknown) date) 96.8 F L unknown) (unknown) (no (unknown) (unknown) Temperature 97.7 F (units (unknown) date) 01/26/22 19:44 unknown) (unknown) (no (unknown) (unknown) Temperature 96.7 F L (uni ts (unknown) date) 96.5 F L unknown) (unknown) (no (unknown) (unknown) Temperature 97.7 F (units (unknown) date) 96.8 F L unknown) (unknown) (no (unknown) (unknown) Temperature 98.6 F (units (unknown) date) 96.8 F L 96.7 F L unknown) (unknown) (no (unknown) (unknown) There is a very (units (unknown) date) small hypodense joint unknown) effusion present.? Mild to moderate (unknown) (no (unknown) (unknown) Time Seen by (units (u nknown) date) Provider: 01/26/22 unknown) 19:49 (unknown) (no (unknown) (unknown) Total Bilirubin (units (unknown) date) (0.2-1.3) mg/dL unknown) (unknown) (no (unknown) (unknown) Total Bilirubin 1.5 (unit s (unknown) date) H (0.2-1.3) mg/dL unknown) (unknown) (no (unknown) (unknown) Total Protein (units ( unknown) date) (6.3-8.2) g/dL unknown) (unknown) (no (unknown) (unknown) Total Protein 7.1 (units (unknown) date) (6.3-8.2) g/dL unknown) (unknown) (no (unknown) (unknown) Type and Screen Stat (uni ts (unknown) date) unknown) (unknown) (no (unknown) (unknown) U-100 Insulin) (units (unknown) date) unknown) (unknown) (no (unknown) (unknown) Urine Microscopic (units (unknown) date) Stat unknown) (unknown) (no (unknown) (unknown) Urine Specific (units (unknown) date) [place] 1.02 unknown) (unknown) (no (unknown) (unknown) VITAMIN D (Vitamin (units (unknown) date) D3) ##0 07/08/12 unknown) (unknown) (no (unknown) (unknown) Vancomycin HCl (units (unknown) date) (Vancomycin Per unknown) Pharmacy) 1 request MISC NOW ONE (unknown) (no (unknown) (unknown) Vancomycin (units (unk nown) date) HCl/Dextrose unknown) (Vancomycin) 1,500 mg in 300 mls @ 200 mls/hr IV NOW (unknown) (no (unknown) (unknown) Visualized sinuses (units (unknown) date) and mastoids are unknown) otherwise clear.? (unknown) (no (unknown) (unknown) Vital Signs (units (un known) date) unknown) (unknown) (no (unknown) (unknown) Vital signs: (units (u nknown) date) unknown) (unknown) (no (unknown) (unknown) Will give him 80 mg (unit s (unknown) date) of IV Lasix given his unknown) increased creatinine and usual oral (unknown) (no (unknown) (unknown) XR chest 1V Stat (units (unknown) date) unknown) (unknown) (no (unknown) (unknown) [Embedded Image Not (unit s (unknown) date) Available] unknown) (unknown) (no (unknown) (unknown) a med list that was (units (unknown) date) printed out from the unknown) end of December it looks like it could have (unknown) (no (unknown) (unknown) age, with (units (unkn own) date) unknown) (unknown) (no (unknown) (unknown) alcohol intake (units (unknown) date) frequency: unknown) holidays/special occasions only (unknown) (no (unknown) (unknown) allopurinol 100 mg (units (unknown) date) tablet 100 mg PO BID unknown) 11/15/19 11/15/19 (unknown) (no (unknown) (unknown) alteration in mental (uni ts (unknown) date) status, Acute kidney unknown) injury (unknown) (no (unknown) (unknown) and acute blood loss (uni ts (unknown) date) I do not believe this unknown) is sepsis. I have begun transfusion (unknown) (no (unknown) (unknown) articular (units (unkn own) date) involvement. unknown) (unknown) (no (unknown) (unknown) aspect of his left (units (unknown) date) lower leg that is unknown) abrading into the top of his foot and has a (unknown) (no (unknown) (unknown) aspirin 81 mg (units ( unknown) date) chewable tablet 81 mg unknown) PO QDAY ##0 07/08/12 11/15/19 (unknown) (no (unknown) (unknown) atherosclerotic (units (unknown) date) unknown) (unknown) (no (unknown) (unknown) atorvastatin 20 mg (units (unknown) date) tablet 20 mg PO DAILY unknown) 11/15/19 11/15/19 (unknown) (no (unknown) (unknown) been associated with (unit s (unknown) date) the discharge [facility] is [facility] and looks like it may be from (unknown) (no (unknown) (unknown) calcification is (units (unknown) date) seen.? Mild unknown) circumferential soft tissue edema.? No significant (unknown) (no (unknown) (unknown) carbidopa 25 (units (u nknown) date) mg-levodopa 100 mg 1 unknown) tab PO BEDTIME RLS 11/15/19 11/15/19 (unknown) (no (unknown) (unknown) carotid artery (units (unknown) date) atherosclerosis.? unknown) (unknown) (no (unknown) (unknown) carvedilol 12.5 mg (units (unknown) date) tablet 12.5 mg PO BID unknown) 11/15/19 11/15/19 (unknown) (no (unknown) (unknown) cellulitis, but (units (unknown) date) abscess is not unknown) entirely excluded. (unknown) (no (unknown) (unknown) changes. ? (units (unk nown) date) unknown) (unknown) (no (unknown) (unknown) circumscribed (units ( unknown) date) subcutaneous mass unknown) measuring approximately 9.5 cm in craniocaudal (unknown) (no (unknown) (unknown) complaining of (units (unknown) date) dyspnea, chest pain unknown) appears to be more alert not complaining of (unknown) (no (unknown) (unknown) completely aware?. (units (unknown) date) No additional history unknown) is yet available available. There is (unknown) (no (unknown) (unknown) congestive heart (units (unknown) date) failure, history of unknown) B-cell lymphoma. his son called 911 today (unknown) (no (unknown) (unknown) creatinine change (units (unknown) date) from 1.63 on January unknown) to a creatinine of 3.18 today. Repeat (unknown) (no (unknown) (unknown) cyclobenzaprine 10 (units (unknown) date) mg tablet 10 mg PO unknown) TID 11/15/19 11/15/19 (unknown) (no (unknown) (unknown) details: x 9 (uni ts (unknown) date) months unknown) (unknown) (no (unknown) (unknown) developing mild (units (unknown) date) erythema. Left knee unknown) with a very large bulla/hematoma on the (unknown) (no (unknown) (unknown) diabetes. With this (unit s (unknown) date) admission he was unknown) noted to be ?a bright adult elderly (unknown) (no (unknown) (unknown) dimension, (units (unk nown) date) unknown) (unknown) (no (unknown) (unknown) discontinued (units (u nknown) date) reportedly no fevers unknown) chills new new injury or fall. He was seen (unknown) (no (unknown) (unknown) dose of 20 mg. At (units (unknown) date) this time his blood unknown) pressure has come up nicely, he is not (unknown) (no (unknown) (unknown) echocardiogram and (units (unknown) date) cardioversion for unknown) atrial fibrillation. Was discharged home (unknown) (no (unknown) (unknown) excoriation on the (units (unknown) date) medial aspect of his unknown) foot from the splint as well. (unknown) (no (unknown) (unknown) explanation for (units (unknown) date) hypotension given his unknown) significant bleeding into the left knee (unknown) (no (unknown) (unknown) fascia of (units (unkn own) date) unknown) (unknown) (no (unknown) (unknown) ferrous gluconate 324 (uni ts (unknown) date) mg, glargine insulin, unknown) metformin, omeprazole, Mirapex 0.125 (unknown) (no (unknown) (unknown) ferrous sulfate (units (unknown) date) Allergy Muscle Pain unknown) Verified 11/14/19 20:28 (unknown) (no (unknown) (unknown) fully assess. It (units (unknown) date) clearly is more than unknown) a couple of days old appears exacerbated (unknown) (no (unknown) (unknown) gabapentin Allergy (units (unknown) date) Confusion Verified unknown) 11/14/19 20:28 (unknown) (no (unknown) (unknown) gentleman? (units (unk nown) date) unknown) (unknown) (no (unknown) (unknown) has a piece of (units (unknown) date) fiberglass casting unknown) material extending from the medial malleolus (unknown) (no (unknown) (unknown) have a significantly (uni ts (unknown) date) elevated white blood unknown) cell count. He does have significant (unknown) (no (unknown) (unknown) he had a CT scan (units (unknown) date) that showed hematoma unknown) but no fractures his anticoagulation was (unknown) (no (unknown) (unknown) hematoma and likely (unit s (unknown) date) the source of acute unknown) blood loss (unknown) (no (unknown) (unknown) him as alert and (units (unknown) date) oriented x3 no acute unknown) distress. ER note says that a fiberglass (unknown) (no (unknown) (unknown) his son is involved (unit s (unknown) date) in his care. Will unknown) benefit from orthopedic consultation for (unknown) (no (unknown) (unknown) hospitalization and (unit s (unknown) date) some from his very unknown) frail skin. Area of excoriation on the (unknown) (no (unknown) (unknown) household members: (units (unknown) date) significant other unknown) (unknown) (no (unknown) (unknown) hydrochlorothiazide (unit s (unknown) date) 25 mg tablet 50 mg PO unknown) QDAY ##0 07/08/12 (unknown) (no (unknown) (unknown) hypertension, (units ( unknown) date) hyperlipidemia, unknown) diabetes, cognitive decline, hyperlipidemia, (unknown) (no (unknown) (unknown) hypotensive found to (unit s (unknown) date) be significantly unknown) anemic, presumably secondary to blood loss (unknown) (no (unknown) (unknown) if not caused from (units (unknown) date) the splint that had unknown) been in place. There is an area of (unknown) (no (unknown) (unknown) injector (Ozempic) (units (unknown) date) unknown) (unknown) (no (unknown) (unknown) insulin glargine 100 (uni ts (unknown) date) unit/mL 100 unit SQ unknown) DAILY ##0 07/08/12 11/15/19 (unknown) (no (unknown) (unknown) internal (units (unkno wn) date) unknown) (unknown) (no (unknown) (unknown) into the (units (unkno wn) date) unknown) (unknown) (no (unknown) (unknown) intramuscular oil (units (unknown) date) unknown) (unknown) (no (unknown) (unknown) involving the (units ( unknown) date) unknown) (unknown) (no (unknown) (unknown) is not in any pain (units (unknown) date) at this time. unknown) (unknown) (no (unknown) (unknown) ischemic (units (unkno wn) date) unknown) (unknown) (no (unknown) (unknown) knee pain and I (units (unknown) date) believe will be unknown) appropriate for admission to [facility]. I (unknown) (no (unknown) (unknown) lateral (units (unkno wn) date) compartment.? No unknown) suspicious periostitis. (unknown) (no (unknown) (unknown) left forearm with a (unit s (unknown) date) small area of unknown) ulceration without underlying abscess (unknown) (no (unknown) (unknown) lesions.? (units (unkn own) date) unknown) (unknown) (no (unknown) (unknown) level of the knee (units (unknown) date) joint, there is an unknown) irregular, slightly hyperdense, but non (unknown) (no (unknown) (unknown) lisinopril 20 mg (units (unknown) date) tablet 10 mg PO QDAY unknown) ##0 07/08/12 11/15/19 (unknown) (no (unknown) (unknown) long-leg posterior (units (unknown) date) splint was applied on unknown) arrival in the emergency department he (unknown) (no (unknown) (unknown) loss. He will need (units (unknown) date) close management of unknown) his congestive heart failure as well as (unknown) (no (unknown) (unknown) marital status: (units (unknown) date) unknown) (unknown) (no (unknown) (unknown) mass without (units (u nknown) date) extension to the unknown) underlying joint that clinically appears to be a (unknown) (no (unknown) (unknown) medial aspect it (units (unknown) date) does not appear to be unknown) intra-articular but it is difficult to (unknown) (no (unknown) (unknown) membranes (units (unkn own) date) unknown) (unknown) (no (unknown) (unknown) mg, allopurinol, (units (unknown) date) amiodarone 200 mg, unknown) atorvastatin 40 mg, duloxetine 30 mg, (unknown) (no (unknown) (unknown) mg/1.5 mL) (units (unk nown) date) subcutaneous pen unknown) (unknown) (no (unknown) (unknown) motion at the knee. (unit s (unknown) date) He also has a unknown) dressing in place on the left forearm with (unknown) (no (unknown) (unknown) multiple bruises all (unit s (unknown) date) over. He is pale but unknown) not complaining of headache. He will (unknown) (no (unknown) (unknown) near the (units (unkno wn) date) unknown) (unknown) (no (unknown) (unknown) not tachypneic and (units (unknown) date) is able to speak in unknown) full sentences (unknown) (no (unknown) (unknown) of 2 units of packed (uni ts (unknown) date) blood cells and he unknown) has responded nicely to the volume. (unknown) (no (unknown) (unknown) omeprazole 40 mg (units (unknown) date) capsule,delayed 40 mg unknown) PO DAILY ##0 07/08/12 11/15/19 (unknown) (no (unknown) (unknown) open his eyes to (units (unknown) date) command but not unknown) oriented to person time place it. He states he (unknown) (no (unknown) (unknown) overlying (units (unkn own) date) unknown) (unknown) (no (unknown) (unknown) oxycodone 10 mg (units (unknown) date) tablet,crush 10 mg PO unknown) BID 11/15/19 11/15/19 (unknown) (no (unknown) (unknown) paroxysmal atrial (units (unknown) date) fibrillation unknown) anticoagulated on rivaroxaban, post TAVR, (unknown) (no (unknown) (unknown) recommendations on (units (unknown) date) management of the unknown) left knee external hematoma without intra- (unknown) (no (unknown) (unknown) refill both lower (units (unknown) date) extremities. unknown) (unknown) (no (unknown) (unknown) release (units (unkno wn) date) unknown) (unknown) (no (unknown) (unknown) remove the splint in (uni ts (unknown) date) 2-3 days. unknown) (unknown) (no (unknown) (unknown) resistant,extended (units (unknown) date) release 12 hr unknown) (unknown) (no (unknown) (unknown) resultant ventricular (uni ts (unknown) date) and sulcal unknown) prominence.? There are mild periventricular and (unknown) (no (unknown) (unknown) return he is found (units (unknown) date) to be dramatically unknown) anemic with acute kidney injury with (unknown) (no (unknown) (unknown) rivaroxaban 20 mg (units (unknown) date) tablet (Xarelto) 20 unknown) mg PO DAILY 11/14/19 11/14/19 (unknown) (no (unknown) (unknown) semaglutide 0.25 mg (unit s (unknown) date) or 0.5 mg (2 0.25 mg unknown) SUBCUT QWEEK 11/15/19 11/15/19 (unknown) (no (unknown) (unknown) significant abrasion (uni ts (unknown) date) with large hematoma unknown) to the medial aspect of his left knee (unknown) (no (unknown) (unknown) sildenafil 100 mg (units (unknown) date) tablet 100 mg PO unknown) DAILY PRN Sexual Activity 11/15/19 11/15/19 (unknown) (no (unknown) (unknown) skin (units (unkno wn) date) unknown) (unknown) (no (unknown) (unknown) skin irritation (units (unknown) date) inferiorly am unknown) concerned that the medial hematoma may be infected (unknown) (no (unknown) (unknown) 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 He does of his son (unknown) (no (unknown) (unknown) spironolactone 25 (units (unknown) date) mg, torsemide 20 mg, unknown) Jardiance, lisinopril 2.5 mg, Xarelto 15 (unknown) (no (unknown) (unknown) subcutaneous (units (u nknown) date) solution (Lantus unknown) (unknown) (no (unknown) (unknown) superiorly and (units (unknown) date) inferiorly. Was unknown) discharged with pain control instructions to (unknown) (no (unknown) (unknown) suspicious (units (unk nown) date) unknown) (unknown) (no (unknown) (unknown) tablet (units (unkno wn) date) unknown) (unknown) (no (unknown) (unknown) testosterone (units (u nknown) date) cypionate 200 mg/mL unknown) ##0 07/08/12 (unknown) (no (unknown) (unknown) the following day (units (unknown) date) with complaints of unknown) increasing pain. Physical exam describes (unknown) (no (unknown) (unknown) the vastus medialis (unit s (unknown) date) muscle. unknown) (unknown) (no (unknown) (unknown) thickening. (units (un known) date) unknown) (unknown) (no (unknown) (unknown) to have heart (units ( unknown) date) failure, paroxysmal unknown) atrial fibrillation, coronary disease, (unknown) (no (unknown) (unknown) to his son's house (units (unknown) date) on aspirin, unknown) clopidogrel, metoprolol succinate 50 mg, (unknown) (no (unknown) (unknown) to the distal knee, (unit s (unknown) date) not crossing any unknown) joint and causing significant irritation (unknown) (no (unknown) (unknown) transfuse [Packed (units (unknown) date) Cells] Stat unknown) (unknown) (no (unknown) (unknown) unchecked. (units (unk nown) date) unknown) (unknown) (no (unknown) (unknown) underlying joint (units (unknown) date) space.? There might unknown) be slight thickening of the superficial (unknown) (no (unknown) (unknown) underlying joint.? (units (unknown) date) This is likely a unknown) hematoma or contusion given lack of (unknown) (no (unknown) (unknown) underlying skin (units (unknown) date) irritation shallow unknown) ulceration and developing cellulitis, (unknown) (no (unknown) (unknown) underwent PCI of the (uni ts (unknown) date) distal right coronary unknown) artery, had a transesophageal (unknown) (no (unknown) (unknown) ventricles are (units (unknown) date) symmetric in size and unknown) shape.? (unknown) (no (unknown) (unknown) ventricular ejection (uni ts (unknown) date) fraction at 15% with unknown) volume overload and tachycardia. He (unknown) (no (unknown) (unknown) white matter chronic (uni ts (unknown) date) small vessel ischemic unknown) changes.? There is intracranial (unknown) (no (unknown) (unknown) with concerns for (units (unknown) date) his overall unknown) well-being and concerned that ?times he is not (unknown) (no (unknown) (unknown) with bruising (units ( unknown) date) extending proximal unknown) and distal from his knee with minimal range of (unknown) (no (unknown) (unknown) zolpidem [From (units (unknown) date) Ambien] Allergy unknown) Confusion Verified 11/14/19 20:28 Result panel 31 (unknown) (no (unknown) (unknown) (no value) (units (unk nown) date) unknown) (unknown) (no (unknown) (unknown) My Impression: (units (unknown) date) unknown) (unknown) (no (unknown) (unknown) Radiologist's (units ( unknown) date) Impression: unknown) (unknown) (no (unknown) (unknown) Date of Service: (units (unknown) date) 01/26/22 unknown) (unknown) (no (unknown) (unknown) (no value) (units (unk nown) date) unknown) (unknown) (no (unknown) (unknown) 01/26/22 19:40 (units (unknown) date) unknown) (unknown) (no (unknown) (unknown) Admin: 01/26/22 (units (unknown) date) 20:35 Dose: 1,000 unknown) mls/hr (unknown) (no (unknown) (unknown) Admin: 01/26/22 (units (unknown) date) 20:35 Dose: 200 unknown) mls/hr (unknown) (no (unknown) (unknown) Admin: 01/26/22 (units (unknown) date) 20:36 Dose: 1,000 unknown) mls/hr (unknown) (no (unknown) (unknown) Admin: 01/26/22 (units (unknown) date) 21:32 Dose: 200 unknown) mls/hr (unknown) (no (unknown) (unknown) Allergies (units (unkn own) date) unknown) (unknown) (no (unknown) (unknown) Documented By: K[facility] (units (unknown) date) unknown) (unknown) (no (unknown) (unknown) Documented By: OW (units (unknown) date) unknown) (unknown) (no (unknown) (unknown) Documented By: ZGG (units (unknown) date) unknown) (unknown) (no (unknown) (unknown) ED Orders (units (unkn own) date) unknown) (unknown) (no (unknown) (unknown) Emergency Report (units (unknown) date) unknown) (unknown) (no (unknown) (unknown) Home Medications (units (unknown) date) unknown) (unknown) (no (unknown) (unknown) Infusion: 01/26/22 (units (unknown) date) 21:00 Dose: 0 mls/hr unknown) (unknown) (no (unknown) (unknown) [facility] [id number] (unknown) date) [address] unknown) [place] [address] (unknown) (no (unknown) (unknown) Lab Results (units (un known) date) unknown) (unknown) (no (unknown) (unknown) Last Admin: 01/26/22 (uni ts (unknown) date) 22:33 Dose: Not Given unknown) (unknown) (no (unknown) (unknown) Last Admin: 01/27/22 (uni ts (unknown) date) 00:28 Dose: 80 mg unknown) (unknown) (no (unknown) (unknown) Last Infusion: (units (unknown) date) 01/26/22 21:00 Dose: unknown) 200 mls/hr (unknown) (no (unknown) (unknown) Last Infusion: (units (unknown) date) 01/26/22 22:33 Dose: unknown) 0 mls/hr (unknown) (no (unknown) (unknown) Last Infusion: (units (unknown) date) 01/26/22 22:34 Dose: unknown) 0 mls/hr (unknown) (no (unknown) (unknown) Stop: 01/26/22 20:08 (uni ts (unknown) date) unknown) (unknown) (no (unknown) (unknown) Stop: 01/26/22 20:51 (uni ts (unknown) date) unknown) (unknown) (no (unknown) (unknown) Stop: 01/26/22 21:09 (uni ts (unknown) date) unknown) (unknown) (no (unknown) (unknown) Stop: 01/26/22 22:14 (uni ts (unknown) date) unknown) (unknown) (no (unknown) (unknown) Stop: 01/27/22 00:25 (uni ts (unknown) date) unknown) (unknown) (no (unknown) (unknown) Urine Dip (units (unkn own) date) unknown) (unknown) (no (unknown) (unknown) Vital Signs - 8 hr (units (unknown) date) unknown) (unknown) (no (unknown) (unknown) (no value) (units (unk nown) date) unknown) (unknown) (no (unknown) (unknown) 01/26/22 01/26/22 (units (unknown) date) 01/26/22 Range/Units unknown) (unknown) (no (unknown) (unknown) 01/26/22 01/26/22 (units (unknown) date) Range/Units unknown) (unknown) (no (unknown) (unknown) 19:40 19:40 19:40 (units (unknown) date) unknown) (unknown) (no (unknown) (unknown) 20:21 20:47 (units (un known) date) unknown) (unknown) (no (unknown) (unknown) 01/26/22 (units (unkno wn) date) unknown) (unknown) (no (unknown) (unknown) ABLA (acute blood (units (unknown) date) loss anemia), unknown) Hematoma of left knee region, Acute CHF, Acute (unknown) (no (unknown) (unknown) CT of the a lower (units (unknown) date) extremity in knee unknown) shows a large irregular medial soft tissue (unknown) (no (unknown) (unknown) He is weak, (units (un known) date) confused, cooperative unknown) he has an ortho glass splint on the medial (unknown) (no (unknown) (unknown) Medication (units (unk nown) date) Instructions Recorded unknown) Confirmed (unknown) (no (unknown) (unknown) any also has skin (units (unknown) date) irritation and unknown) developing cellulitis in the left forearm with (unknown) (no (unknown) (unknown) catheterization and (unit s (unknown) date) had PCI of the distal unknown) right coronary artery and also found (unknown) (no (unknown) (unknown) deep (units (unkno wn) date) unknown) (unknown) (no (unknown) (unknown) dressings that (units (unknown) date) appear to been in unknown) place for a number of days and unchanged and (unknown) (no (unknown) (unknown) failure (units (unkno wn) date) unknown) (unknown) (no (unknown) (unknown) he was seen at (units (unknown) date) [facility] on unknown) January 23 and with a ground level fall (unknown) (no (unknown) (unknown) injuring his left (units (unknown) date) knee that had unknown) occurred on or about January 20. On the (unknown) (no (unknown) (unknown) into they large (units (unknown) date) hematoma on the unknown) medial aspect of the left knee. He does not (unknown) (no (unknown) (unknown) mg nightly and as (units (unknown) date) needed nitroglycerin. unknown) (unknown) (no (unknown) (unknown) suspect the acute (units (unknown) date) kidney injury is from unknown) volume loss is secondary to the blood (unknown) (no (unknown) (unknown) (Depo-Testosterone) (unit s (unknown) date) unknown) (unknown) (no (unknown) (unknown) (GLUCOPHAGE) (units (u nknown) date) unknown) (unknown) (no (unknown) (unknown) 01/26/22 19:40 (units (unknown) date) unknown) (unknown) (no (unknown) (unknown) 01/26/22 19:45 (units (unknown) date) unknown) (unknown) (no (unknown) (unknown) 01/26/22 19:52 (units (unknown) date) unknown) (unknown) (no (unknown) (unknown) 01/26/22 20:07 (units (unknown) date) unknown) (unknown) (no (unknown) (unknown) 01/26/22 20:09 (units (unknown) date) unknown) (unknown) (no (unknown) (unknown) 01/26/22 20:15 (units (unknown) date) unknown) (unknown) (no (unknown) (unknown) 01/26/22 20:21 (units (unknown) date) unknown) (unknown) (no (unknown) (unknown) 01/26/22 20:47 (units (unknown) date) unknown) (unknown) (no (unknown) (unknown) 01/26/22 21:56 (units (unknown) date) unknown) (unknown) (no (unknown) (unknown) 1. Mildly hyperdense, (uni ts (unknown) date) irregular medial soft unknown) tissue mass without extension to the (unknown) (no (unknown) (unknown) 1. No CT evidence of (uni ts (unknown) date) acute intracranial unknown) process.? (unknown) (no (unknown) (unknown) 19:44 01/26/22 (units (unknown) date) unknown) (unknown) (no (unknown) (unknown) 2. Age-appropriate (units (unknown) date) cerebral cortical unknown) volume loss and chronic microvascular (unknown) (no (unknown) (unknown) 2. No evidence of (units (unknown) date) underlying unknown) osteomyelitis. (unknown) (no (unknown) (unknown) 20:34 01/26/22 (units (unknown) date) unknown) (unknown) (no (unknown) (unknown) 20:41 (units (unkno wn) date) unknown) (unknown) (no (unknown) (unknown) 21:00 01/26/22 (units (unknown) date) unknown) (unknown) (no (unknown) (unknown) 21:25 (units (unkno wn) date) unknown) (unknown) (no (unknown) (unknown) 21:25 01/26/22 (units (unknown) date) unknown) (unknown) (no (unknown) (unknown) 21:30 (units (unkno wn) date) unknown) (unknown) (no (unknown) (unknown) 21:30 01/26/22 (units (unknown) date) unknown) (unknown) (no (unknown) (unknown) 21:45 (units (unkno wn) date) unknown) (unknown) (no (unknown) (unknown) 21:45 01/26/22 (units (unknown) date) unknown) (unknown) (no (unknown) (unknown) 22:00 01/26/22 (units (unknown) date) unknown) (unknown) (no (unknown) (unknown) 22:15 (units (unkno wn) date) unknown) (unknown) (no (unknown) (unknown) 22:15 01/26/22 (units (unknown) date) unknown) (unknown) (no (unknown) (unknown) 22:30 (units (unkno wn) date) unknown) (unknown) (no (unknown) (unknown) 22:30 01/26/22 (units (unknown) date) unknown) (unknown) (no (unknown) (unknown) 22:35 01/26/22 (units (unknown) date) unknown) (unknown) (no (unknown) (unknown) 22:36 01/26/22 (units (unknown) date) unknown) (unknown) (no (unknown) (unknown) 22:45 (units (unkno wn) date) unknown) (unknown) (no (unknown) (unknown) 22:45 01/26/22 (units (unknown) date) unknown) (unknown) (no (unknown) (unknown) 22:50 (units (unkno wn) date) unknown) (unknown) (no (unknown) (unknown) 22:51 01/26/22 (units (unknown) date) unknown) (unknown) (no (unknown) (unknown) 23:00 01/26/22 (units (unknown) date) unknown) (unknown) (no (unknown) (unknown) 23:01 (units (unkno wn) date) unknown) (unknown) (no (unknown) (unknown) 23:01 01/26/22 (units (unknown) date) unknown) (unknown) (no (unknown) (unknown) 23:04 01/26/22 (units (unknown) date) unknown) (unknown) (no (unknown) (unknown) 23:07 (units (unkno wn) date) unknown) (unknown) (no (unknown) (unknown) 23:15 (units (unkno wn) date) unknown) (unknown) (no (unknown) (unknown) 23:15 01/26/22 (units (unknown) date) unknown) (unknown) (no (unknown) (unknown) 23:30 01/26/22 (units (unknown) date) unknown) (unknown) (no (unknown) (unknown) 23:45 (units (unkno wn) date) unknown) (unknown) (no (unknown) (unknown) 3. 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 (unknown) (no (unknown) (unknown) 3. Very small (units ( unknown) date) nonspecific knee unknown) joint effusion.? (unknown) (no (unknown) (unknown) [id number] (units (unkno wn) date) unknown) (unknown) (no (unknown) (unknown) 76-year-old (units (un known) date) gentleman with a unknown) history of coronary artery disease post CABG x4, (unknown) (no (unknown) (unknown) 8.0 cm in AP (units (u nknown) date) diameter, and about unknown) 3.5 cm in thickness.? There is no extension (unknown) (no (unknown) (unknown) ? (units (unkno wn) date) unknown) (unknown) (no (unknown) (unknown) ALT (<50) IU/L (units (unknown) date) unknown) (unknown) (no (unknown) (unknown) ALT 27 (<50) IU/L (units (unknown) date) unknown) (unknown) (no (unknown) (unknown) AST (17-59) IU/L (units (unknown) date) unknown) (unknown) (no (unknown) (unknown) AST 28 (17-59) IU/L (unit s (unknown) date) unknown) (unknown) (no (unknown) (unknown) Abdomen: Soft, mild (unit s (unknown) date) distention but unknown) nontender, good bowel tones, no flank pain (unknown) (no (unknown) (unknown) Age/Sex: 76 / M (units (unknown) date) unknown) (unknown) (no (unknown) (unknown) Albumin (3.5-5.0) (units (unknown) date) g/dL unknown) (unknown) (no (unknown) (unknown) Albumin 3.6 (units (un known) date) (3.5-5.0) g/dL unknown) (unknown) (no (unknown) (unknown) Albumin/Globulin (units (unknown) date) Ratio (1.0-2.8) unknown) (unknown) (no (unknown) (unknown) Albumin/Globulin (units (unknown) date) Ratio 1.0 (1.0-2.8) unknown) (unknown) (no (unknown) (unknown) Alkaline Phosphatase (uni ts (unknown) date) (38-126) U/L unknown) (unknown) (no (unknown) (unknown) Alkaline Phosphatase (uni ts (unknown) date) 170 H (38-126) U/L unknown) (unknown) (no (unknown) (unknown) Allergy/AdvReac Type (uni ts (unknown) date) Severity Reaction unknown) Status Date / Time (unknown) (no (unknown) (unknown) Anisocytosis (units (u nknown) date) unknown) (unknown) (no (unknown) (unknown) Anisocytosis 3+ H (units (unknown) date) unknown) (unknown) (no (unknown) (unknown) Anti-Inflamma (units ( unknown) date) disease unknown) (unknown) (no (unknown) (unknown) Antibody Screen (units (unknown) date) unknown) (unknown) (no (unknown) (unknown) Antibody Screen (units (unknown) date) Negative unknown) (unknown) (no (unknown) (unknown) Atrial fibrillation (unit s (unknown) date) unknown) (unknown) (no (unknown) (unknown) Attestation: (units (u nknown) date) unknown) (unknown) (no (unknown) (unknown) January 06. 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 (unknown) (no (unknown) (unknown) BUN (9-20) mg/dL (units (unknown) date) unknown) (unknown) (no (unknown) (unknown) BUN 61 H (9-20) (units (unknown) date) mg/dL unknown) (unknown) (no (unknown) (unknown) BUN/Creatinine Ratio (uni ts (unknown) date) (6-22) unknown) (unknown) (no (unknown) (unknown) BUN/Creatinine Ratio (uni ts (unknown) date) 19.2 (6-22) unknown) (unknown) (no (unknown) (unknown) Baso # (Auto) (units ( unknown) date) (0-100) /uL unknown) (unknown) (no (unknown) (unknown) Baso # (Auto) 100 (units (unknown) date) (0-100) /uL unknown) (unknown) (no (unknown) (unknown) Baso % (Auto) (0-2) (unit s (unknown) date) % unknown) (unknown) (no (unknown) (unknown) Baso % (Auto) 1.0 (units (unknown) date) (0-2) % unknown) (unknown) (no (unknown) (unknown) Bedside Urine (units ( unknown) date) Bilirubin - Negative unknown) (unknown) (no (unknown) (unknown) Bedside Urine (units ( unknown) date) Glucose 500 mg/dl unknown) (unknown) (no (unknown) (unknown) Bedside Urine Ketone (uni ts (unknown) date) - Negative unknown) (unknown) (no (unknown) (unknown) Bedside Urine (units ( unknown) date) Leukocytes +/- 15 unknown) (unknown) (no (unknown) (unknown) Bedside Urine (units ( unknown) date) Nitrite - Negative unknown) (unknown) (no (unknown) (unknown) Bedside Urine Occult (uni ts (unknown) date) Blood +/- unknown) (unknown) (no (unknown) (unknown) Bedside Urine (units ( unknown) date) Protein - Negative unknown) (unknown) (no (unknown) (unknown) Bedside Urine (units ( unknown) date) Urobilinogen - unknown) Negative (unknown) (no (unknown) (unknown) Bedside Urine pH 5.5 (uni ts (unknown) date) unknown) (unknown) (no (unknown) (unknown) Blood Culture Stat (units (unknown) date) unknown) (unknown) (no (unknown) (unknown) Blood Pressure (units (unknown) date) 102/52 L 98/52 L unknown) (unknown) (no (unknown) (unknown) Blood Pressure 78/54 (uni ts (unknown) date) L 01/26/ 19:44 unknown) (unknown) (no (unknown) (unknown) Blood Pressure 95/53 (uni ts (unknown) date) L unknown) (unknown) (no (unknown) (unknown) Blood Pressure 95/54 (uni ts (unknown) date) L unknown) (unknown) (no (unknown) (unknown) Blood Pressure 95/55 (uni ts (unknown) date) L unknown) (unknown) (no (unknown) (unknown) Blood Pressure (units (unknown) date) 102/53 L unknown) (unknown) (no (unknown) (unknown) Blood Pressure 78/54 (uni ts (unknown) date) L 102/52 L unknown) (unknown) (no (unknown) (unknown) Blood Pressure 90/50 (uni ts (unknown) date) L 92/51 L unknown) (unknown) (no (unknown) (unknown) Blood Pressure 94/46 (uni ts (unknown) date) L 95/55 L 98/52 L unknown) (unknown) (no (unknown) (unknown) Blood Pressure 96/53 (uni ts (unknown) date) L unknown) (unknown) (no (unknown) (unknown) Blood Pressure 97/52 (uni ts (unknown) date) L 101/54 L unknown) (unknown) (no (unknown) (unknown) Blood Pressure 98/52 (uni ts (unknown) date) L unknown) (unknown) (no (unknown) (unknown) Blood Pressure 98/52 (uni ts (unknown) date) L 95/54 L 95/50 L unknown) (unknown) (no (unknown) (unknown) Blood Pressure 98/52 (uni ts (unknown) date) L 97/52 L 102/53 L unknown) (unknown) (no (unknown) (unknown) Blood Type (units (unk nown) date) unknown) (unknown) (no (unknown) (unknown) Blood Type A (units (u nknown) date) Negative unknown) (unknown) (no (unknown) (unknown) Bones:? No (units (unk nown) date) fractures.? Normal unknown) bone alignment.? 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 No (units (unk nown) date) intracranial bleeds unknown) or masses.? There is cerebral volume loss for (unknown) (no (unknown) (unknown) COVID19 -Nasal (units (unknown) date) RAPID/Pre-Proc Stat unknown) (unknown) (no (unknown) (unknown) CSF spaces:? Basal (units (unknown) date) cisterns are patent.? unknown) No extra-axial fluid collections.? The (unknown) (no (unknown) (unknown) CT LE LT wo con Stat (uni ts (unknown) date) unknown) (unknown) (no (unknown) (unknown) CT Left lower (units ( unknown) date) extremity: unknown) (unknown) (no (unknown) (unknown) CT head/brain wo con (uni ts (unknown) date) Stat unknown) (unknown) (no (unknown) (unknown) CT scan - head: (units (unknown) date) unknown) (unknown) (no (unknown) (unknown) Calcium (8.4-10.2) (units (unknown) date) mg/dL unknown) (unknown) (no (unknown) (unknown) Calcium 8.4 (units (un known) date) (8.4-10.2) mg/dL unknown) (unknown) (no (unknown) (unknown) Carbon Dioxide (units (unknown) date) (22-32) mmol/L unknown) (unknown) (no (unknown) (unknown) Carbon Dioxide 27 (units (unknown) date) (22-32) mmol/L unknown) (unknown) (no (unknown) (unknown) Cardiac: Regular (units (unknown) date) rate and rhythm no unknown) murmurs no bruits (unknown) (no (unknown) (unknown) Chief complaint: (units (unknown) date) Skin/Abscess/Foreign unknown) Body (unknown) (no (unknown) (unknown) Chloride (98-107) (units (unknown) date) mmol/L unknown) (unknown) (no (unknown) (unknown) Chloride 97 L (units ( unknown) date) (98-107) mmol/L unknown) (unknown) (no (unknown) (unknown) Clinical Impression: (uni ts (unknown) date) unknown) (unknown) (no (unknown) (unknown) Complete Blood Count (uni ts (unknown) date) AUTO DIFF Stat unknown) (unknown) (no (unknown) (unknown) Comprehensive (units ( unknown) date) Metabolic Panel Stat unknown) (unknown) (no (unknown) (unknown) Coronary artery (units (unknown) date) disease unknown) (unknown) (no (unknown) (unknown) Course (units (unkno wn) date) unknown) (unknown) (no (unknown) (unknown) Creatinine (units (unk nown) date) (0.66-1.25) mg/dL unknown) (unknown) (no (unknown) (unknown) Creatinine 3.18 H (units (unknown) date) (0.66-1.25) mg/dL unknown) (unknown) (no (unknown) (unknown) Critical Care Time (units (unknown) date) unknown) (unknown) (no (unknown) (unknown) Critical Care Time: (unit s (unknown) date) Yes unknown) (unknown) (no (unknown) (unknown) Critical care time (units (unknown) date) is separate from unknown) other billable procedures. There is a high (unknown) (no (unknown) (unknown) Crossmatch (units (unk nown) date) unknown) (unknown) (no (unknown) (unknown) Crossmatch See (units (unknown) date) Detail unknown) (unknown) (no (unknown) (unknown) : 1945 (units (unknown) date) Acct:[id number] unknown) (unknown) (no (unknown) (unknown) Departure (units (unkn own) date) unknown) (unknown) (no (unknown) (unknown) Diabetes (units (unkno wn) date) unknown) (unknown) (no (unknown) (unknown) Dictated by: Brittny Hwanguni ts (unknown) date) Carlos Moran on unknown) 01/26/2022 at 21:07 ? ? (unknown) (no (unknown) (unknown) Dictated by: Brittny (uni ts (unknown) date) Carlos Moran on unknown) 01/26/2022 at 21:10 ? ? (unknown) (no (unknown) (unknown) Discharge Plan (units (unknown) date) unknown) (unknown) (no (unknown) (unknown) Discontinued (units (u nknown) date) Medications unknown) (unknown) (no (unknown) (unknown) Discussed with Brittany (units (unknown) date) Skyler hospitalist. unknown) Will admit. (unknown) (no (unknown) (unknown) Dyslipidemia (units (u nknown) date) unknown) (unknown) (no (unknown) (unknown) ECG Data (units (unkno wn) date) unknown) (unknown) (no (unknown) (unknown) EKG-12 Lead Stat (units (unknown) date) unknown) (unknown) (no (unknown) (unknown) ER Physician: (units ( unknown) date) Ashley Glynn MD unknown) (unknown) (no (unknown) (unknown) Eos # (Auto) (0-450) (uni ts (unknown) date) /uL unknown) (unknown) (no (unknown) (unknown) Eos # (Auto) 200 (units (unknown) date) (0-450) /uL unknown) (unknown) (no (unknown) (unknown) Eos % (Auto) (2-4) % (uni ts (unknown) date) unknown) (unknown) (no (unknown) (unknown) Eos % (Auto) 2.8 (units (unknown) date) (2-4) % unknown) (unknown) (no (unknown) (unknown) Esterase (units (unkno wn) date) unknown) (unknown) (no (unknown) (unknown) Estimated GFR (>60) (unit s (unknown) date) mL/min unknown) (unknown) (no (unknown) (unknown) Estimated GFR 19 L (units (unknown) date) (>60) mL/min unknown) (unknown) (no (unknown) (unknown) Exam (units (unkno wn) date) unknown) (unknown) (no (unknown) (unknown) Extremities: Left (units (unknown) date) leg is described unknown) under the skin exam. Reasonable capillary (unknown) (no (unknown) (unknown) FINDINGS:? (units (unk nown) date) unknown) (unknown) (no (unknown) (unknown) Full and symmetrical (uni ts (unknown) date) air movement unknown) (unknown) (no (unknown) (unknown) Furosemide (units (unk nown) date) (Furosemide 100 Mg/10 unknown) Ml Vial) 80 mg IV NOW ONE (unknown) (no (unknown) (unknown) General (units (unkno wn) date) unknown) (unknown) (no (unknown) (unknown) General: Chronically (unit s (unknown) date) ill-appearing, pale, unknown) weak but in no acute distress. He is (unknown) (no (unknown) (unknown) GenericComposite[Plt (uni ts (unknown) date) Count (150-400) unknown) X10^3/uL ] (unknown) (no (unknown) (unknown) GenericComposite[Plt (uni ts (unknown) date) Count 206 (150-400) unknown) X10^3/uL ] (unknown) (no (unknown) (unknown) GenericComposite[RBC (uni ts (unknown) date) (4.5-5.9) X10^6/uL ] unknown) (unknown) (no (unknown) (unknown) GenericComposite[RBC (uni ts (unknown) date) 2.75 L (4.5-5.9) unknown) X10^6/uL ] (unknown) (no (unknown) (unknown) GenericComposite[WBC (uni ts (unknown) date) (4.5-11.0) X10^3/uL ] unknown) (unknown) (no (unknown) (unknown) GenericComposite[WBC (uni ts (unknown) date) 7.1 (4.5-11.0) unknown) X10^3/uL ] (unknown) (no (unknown) (unknown) Globulin (1.7-4.1) (units (unknown) date) g/dL unknown) (unknown) (no (unknown) (unknown) Globulin 3.5 (units (u nknown) date) (1.7-4.1) g/dL unknown) (unknown) (no (unknown) (unknown) Glucose (80-110) (units (unknown) date) mg/dL unknown) (unknown) (no (unknown) (unknown) Glucose 130 H (units ( unknown) date) (80-110) mg/dL unknown) (unknown) (no (unknown) (unknown) HEENT: Moist mucous (unit s (unknown) date) membranes, normal unknown) sclera with reactive pupils, pale mucous (unknown) (no (unknown) (unknown) HPI - General Adult (unit s (unknown) date) unknown) (unknown) (no (unknown) (unknown) HPI narrative: (units (unknown) date) unknown) (unknown) (no (unknown) (unknown) Have spoken with his (uni ts (unknown) date) son and medical unknown) records are now available for review. (unknown) (no (unknown) (unknown) Hct (41-53) % (units ( unknown) date) unknown) (unknown) (no (unknown) (unknown) Hct 20.8 L* (41-53) (unit s (unknown) date) % unknown) (unknown) (no (unknown) (unknown) He was admitted at (units (unknown) date) [facility] on January unknown) through January 13 for elective heart (unknown) (no (unknown) (unknown) [phone]ensated heart (unknown) (no (unknown) (unknown) Hgb (13.5-17.5) g/dL (uni ts (unknown) date) unknown) (unknown) (no (unknown) (unknown) Hgb 6.7 L* (units (unk nown) date) (13.5-17.5) g/dL unknown) (unknown) (no (unknown) (unknown) His son noted him to (uni ts (unknown) date) be increasingly weak unknown) this morning and he comes in (unknown) (no (unknown) (unknown) History of Present (units (unknown) date) Illness unknown) (unknown) (no (unknown) (unknown) Hx of (units (unkno wn) date) cholecystectomy unknown) (unknown) (no (unknown) (unknown) Hypertension (units (u nknown) date) unknown) (unknown) (no (unknown) (unknown) IMPRESSION:? (units (u nknown) date) unknown) (unknown) (no (unknown) (unknown) IV NOW ONE (units (unk nown) date) unknown) (unknown) (no (unknown) (unknown) Image quality:? (units (unknown) date) Excellent.? unknown) (unknown) (no (unknown) (unknown) Imaging Data (units (u nknown) date) unknown) (unknown) (no (unknown) (unknown) In the absence of (units (unknown) date) fever, leukocytosis, unknown) elevated lactic acid and alternative (unknown) (no (unknown) (unknown) Initial Vital Signs (unit s (unknown) date) unknown) (unknown) (no (unknown) (unknown) Initial Vital Signs: (uni ts (unknown) date) unknown) (unknown) (no (unknown) (unknown) Initial concern was (unit s (unknown) date) for sepsis and he was unknown) given Zosyn and vancomycin. As labs (unknown) (no (unknown) (unknown) Interpretation: (units (unknown) date) unknown) (unknown) (no (unknown) (unknown) Lab Data (units (unkno wn) date) unknown) (unknown) (no (unknown) (unknown) Labs: (units (unkno wn) date) unknown) (unknown) (no (unknown) (unknown) Lactate (0.7-2.1) (units (unknown) date) mmol/L unknown) (unknown) (no (unknown) (unknown) Lactate 1.3 (units (un known) date) (0.7-2.1) mmol/L unknown) (unknown) (no (unknown) (unknown) Lactate (Lactic (units (unknown) date) Acid) Stat unknown) (unknown) (no (unknown) (unknown) Lipase (23-300) U/L (unit s (unknown) date) unknown) (unknown) (no (unknown) (unknown) Lipase 135 (23-300) (unit s (unknown) date) U/L unknown) (unknown) (no (unknown) (unknown) Lipase Stat (units (un known) date) unknown) (unknown) (no (unknown) (unknown) Lymph # (Auto) (units (unknown) date) (9920-1604) /uL unknown) (unknown) (no (unknown) (unknown) Lymph # (Auto) 800 L (uni ts (unknown) date) (1045-5849) /uL unknown) (unknown) (no (unknown) (unknown) Lymph % (Auto) (units (unknown) date) (25-40) % unknown) (unknown) (no (unknown) (unknown) Lymph % (Auto) 11.4 (unit s (unknown) date) L (25-40) % unknown) (unknown) (no (unknown) (unknown) MCH (26-34) PG (units (unknown) date) unknown) (unknown) (no (unknown) (unknown) MCH 24.6 L (26-34) (units (unknown) date) PG unknown) (unknown) (no (unknown) (unknown) MCHC (30-36) % (units (unknown) date) unknown) (unknown) (no (unknown) (unknown) MCHC 32.4 (30-36) % (unit s (unknown) date) unknown) (unknown) (no (unknown) (unknown) MCV (80-100) fL (units (unknown) date) unknown) (unknown) (no (unknown) (unknown) MCV 75.7 L (80-100) (unit s (unknown) date) fL unknown) (unknown) (no (unknown) (unknown) MDM Narrative (units ( unknown) date) unknown) (unknown) (no (unknown) (unknown) Medical Decision (units (unknown) date) Making unknown) (unknown) (no (unknown) (unknown) Medical History (units (unknown) date) (Updated 01/27/22 @ unknown) 00:29 by Ashley Glynn MD) (unknown) (no (unknown) (unknown) Medical decision (units (unknown) date) making narrative: unknown) (unknown) (no (unknown) (unknown) Metformin (units (unkn own) date) Hydrochloride 1,275 unknown) mg PO BID ##0 07/08/12 (unknown) (no (unknown) (unknown) Lajas # (Auto) (units ( unknown) date) (0-900) /uL unknown) (unknown) (no (unknown) (unknown) Lajas # (Auto) 700 (units (unknown) date) (0-900) /uL unknown) (unknown) (no (unknown) (unknown) Lajas % (Auto) (3-14) (uni ts (unknown) date) % unknown) (unknown) (no (unknown) (unknown) Lajas % (Auto) 9.8 (units (unknown) date) (3-14) % unknown) (unknown) (no (unknown) (unknown) NSAIDS (units (unkno wn) date) (Non-Steroidal unknown) AdvReac Severe kidney Verified 11/14/19 20:28 (unknown) (no (unknown) (unknown) Neck: No JVD, supple (uni ts (unknown) date) unknown) (unknown) (no (unknown) (unknown) Neurologic: Globally (uni ts (unknown) date) weak but able to move unknown) all extremities (unknown) (no (unknown) (unknown) Neut # (Auto) (units ( unknown) date) (6930-3557) /uL unknown) (unknown) (no (unknown) (unknown) Neut # (Auto) 5400 (units (unknown) date) (2252-8227) /uL unknown) (unknown) (no (unknown) (unknown) Neut % (Auto) (units ( unknown) date) (50-75) % unknown) (unknown) (no (unknown) (unknown) Neut % (Auto) 75.0 (units (unknown) date) (50-75) % unknown) (unknown) (no (unknown) (unknown) ONE (units (unkno wn) date) unknown) (unknown) (no (unknown) (unknown) Ordered: (units (unkno wn) date) unknown) (unknown) (no (unknown) (unknown) Orders (units (unkno wn) date) unknown) (unknown) (no (unknown) (unknown) Oxygen Delivery (units (unknown) date) Method unknown) (unknown) (no (unknown) (unknown) Oxygen Delivery (units (unknown) date) Method 01/26/22 19:44 unknown) (unknown) (no (unknown) (unknown) Oxygen Delivery (units (unknown) date) Method unknown) (unknown) (no (unknown) (unknown) Oxygen Delivery (units (unknown) date) Method Room Air unknown) (unknown) (no (unknown) (unknown) Patient Disposition: (uni ts (unknown) date) Admitted As Inpatient unknown) (unknown) (no (unknown) (unknown) Patient History (units (unknown) date) unknown) (unknown) (no (unknown) (unknown) Patient was (units (un known) date) discharged from [facility]) Kath for acute congestive heart failure on (unknown) (no (unknown) (unknown) Patient: (units (unkno wn) date) Osmel Baxter MR#: unknown) M000 (unknown) (no (unknown) (unknown) Piperacillin (units (u nknown) date) Sod/Tazobactam (Sod unknown) 4.5 gm/ Sodium Chloride) 100 mls @ 200 mls/hr (unknown) (no (unknown) (unknown) Point of care (units ( unknown) date) testing: unknown) (unknown) (no (unknown) (unknown) Potassium (3.4-5.1) (unit s (unknown) date) mmol/L unknown) (unknown) (no (unknown) (unknown) Potassium 4.3 (units ( unknown) date) (3.4-5.1) mmol/L unknown) (unknown) (no (unknown) (unknown) Procalcitonin (<0.5) (uni ts (unknown) date) ng/mL unknown) (unknown) (no (unknown) (unknown) Procalcitonin 0.50 (units (unknown) date) (<0.5) ng/mL unknown) (unknown) (no (unknown) (unknown) Procalcitonin Stat (units (unknown) date) unknown) (unknown) (no (unknown) (unknown) Psych: Will respond (unit s (unknown) date) to yes or no unknown) questions but otherwise altered. (unknown) (no (unknown) (unknown) Pulse Oximetry (units (unknown) date) unknown) (unknown) (no (unknown) (unknown) Pulse Oximetry (units (unknown) date) unknown) (unknown) (no (unknown) (unknown) Pulse Oximetry 98 (units (unknown) date) unknown) (unknown) (no (unknown) (unknown) Pulse Oximetry 100 (units (unknown) date) unknown) (unknown) (no (unknown) (unknown) Pulse Oximetry 89 L (unit s (unknown) date) 98 unknown) (unknown) (no (unknown) (unknown) Pulse Oximetry 97 (units (unknown) date) unknown) (unknown) (no (unknown) (unknown) Pulse Oximetry 97 (units (unknown) date) 01/26/22 19:44 unknown) (unknown) (no (unknown) (unknown) Pulse Oximetry 97 99 (uni ts (unknown) date) unknown) (unknown) (no (unknown) (unknown) Pulse Oximetry 100 (units (unknown) date) 100 unknown) (unknown) (no (unknown) (unknown) Pulse Oximetry 100 (units (unknown) date) 99 unknown) (unknown) (no (unknown) (unknown) Pulse Oximetry 97 98 (uni ts (unknown) date) unknown) (unknown) (no (unknown) (unknown) Pulse Oximetry 99 (units (unknown) date) unknown) (unknown) (no (unknown) (unknown) Pulse Rate (units (unk nown) date) unknown) (unknown) (no (unknown) (unknown) Pulse Rate 61 62 (units (unknown) date) unknown) (unknown) (no (unknown) (unknown) Pulse Rate 63 (units ( unknown) date) unknown) (unknown) (no (unknown) (unknown) Pulse Rate 64 64 (units (unknown) date) unknown) (unknown) (no (unknown) (unknown) Pulse Rate 65 (units ( unknown) date) 01/26/22 19:44 unknown) (unknown) (no (unknown) (unknown) Pulse Rate 62 62 (units (unknown) date) unknown) (unknown) (no (unknown) (unknown) Pulse Rate 63 63 62 (unit s (unknown) date) unknown) (unknown) (no (unknown) (unknown) Pulse Rate 64 (units ( unknown) date) unknown) (unknown) (no (unknown) (unknown) Pulse Rate 64 63 (units (unknown) date) unknown) (unknown) (no (unknown) (unknown) Pulse Rate 64 64 (units (unknown) date) unknown) (unknown) (no (unknown) (unknown) Pulse Rate 64 62 62 (unit s (unknown) date) unknown) (unknown) (no (unknown) (unknown) Pulse Rate 64 64 65 (unit s (unknown) date) unknown) (unknown) (no (unknown) (unknown) Pulse Rate 65 65 64 (unit s (unknown) date) unknown) (unknown) (no (unknown) (unknown) RBC Morphology (units (unknown) date) unknown) (unknown) (no (unknown) (unknown) RBC Morphology Not (units (unknown) date) Reportable unknown) (unknown) (no (unknown) (unknown) RDW (11.6-14.8) % (units (unknown) date) unknown) (unknown) (no (unknown) (unknown) RDW 24.5 H (units (unk nown) date) (11.6-14.8) % unknown) (unknown) (no (unknown) (unknown) ROS Unobtainable: (units (unknown) date) Unobtainable due to unknown) mental condition (unknown) (no (unknown) (unknown) RT Consult Eval and (unit s (unknown) date) Treat NOW unknown) (unknown) (no (unknown) (unknown) Related Data (units (u nknown) date) unknown) (unknown) (no (unknown) (unknown) Respiratory Rate (units (unknown) date) unknown) (unknown) (no (unknown) (unknown) Respiratory Rate 15 (unit s (unknown) date) unknown) (unknown) (no (unknown) (unknown) Respiratory Rate 20 (unit s (unknown) date) 21 unknown) (unknown) (no (unknown) (unknown) Respiratory Rate 20 (unit s (unknown) date) 26 H unknown) (unknown) (no (unknown) (unknown) Respiratory Rate 21 (unit s (unknown) date) unknown) (unknown) (no (unknown) (unknown) Respiratory Rate 21 (unit s (unknown) date) 01/26/22 19:44 unknown) (unknown) (no (unknown) (unknown) Respiratory Rate 14 (unit s (unknown) date) 13 unknown) (unknown) (no (unknown) (unknown) Respiratory Rate 17 (unit s (unknown) date) unknown) (unknown) (no (unknown) (unknown) Respiratory Rate 18 (unit s (unknown) date) 14 21 unknown) (unknown) (no (unknown) (unknown) Respiratory Rate 18 (unit s (unknown) date) 15 18 unknown) (unknown) (no (unknown) (unknown) Respiratory Rate 19 (unit s (unknown) date) 16 unknown) (unknown) (no (unknown) (unknown) Respiratory Rate 20 (unit s (unknown) date) 24 unknown) (unknown) (no (unknown) (unknown) Respiratory Rate 20 (unit s (unknown) date) 12 18 unknown) (unknown) (no (unknown) (unknown) Respiratory Rate 21 (unit s (unknown) date) 17 17 unknown) (unknown) (no (unknown) (unknown) Respiratory: Lungs (units (unknown) date) are clear to unknown) auscultation, no wheezing no rales no rhonchi. (unknown) (no (unknown) (unknown) Result diagrams: (units (unknown) date) unknown) (unknown) (no (unknown) (unknown) Review of Systems (units (unknown) date) unknown) (unknown) (no (unknown) (unknown) S/P CABG x 4 (units (u nknown) date) unknown) (unknown) (no (unknown) (unknown) SARS-CoV-2 (PCR) (units (unknown) date) (Negative) unknown) (unknown) (no (unknown) (unknown) SARS-CoV-2 (PCR) (units (unknown) date) Negative (Negative) unknown) (unknown) (no (unknown) (unknown) [facility] who will (unit s (unknown) date) follow-up on this to unknown) see if additional records are present. (unknown) (no (unknown) (unknown) Signed By: (units (unk nown) date) unknown) (unknown) (no (unknown) (unknown) Sinus rhythm, left (units (unknown) date) bundle-branch block, unknown) no acute ischemic changes, rate of 67 (unknown) (no (unknown) (unknown) Sinuses:? Mucosal (units (unknown) date) thickening and small unknown) fluid level in the left maxillary sinus.? (unknown) (no (unknown) (unknown) Skin: Pale, Warm and (uni ts (unknown) date) dry, multiple bruises unknown) some look like there from recent (unknown) (no (unknown) (unknown) Skull and face:? (units (unknown) date) Calvarium and unknown) visualized facial bones appear intact, without (unknown) (no (unknown) (unknown) Sleep apnea (units (un known) date) unknown) (unknown) (no (unknown) (unknown) Smoking Status: (units (unknown) date) Former smoker unknown) (unknown) (no (unknown) (unknown) Smoking Status: (units (unknown) date) Former smoker unknown) (unknown) (no (unknown) (unknown) Social History (units (unknown) date) (Updated 09/25/18 @ unknown) 11:17 by Telma Dickey DO) (unknown) (no (unknown) (unknown) Sodium (137-145) (units (unknown) date) mmol/L unknown) (unknown) (no (unknown) (unknown) Sodium 132 L (units (u nknown) date) (137-145) mmol/L unknown) (unknown) (no (unknown) (unknown) Sodium Chloride (units (unknown) date) (Normal Saline 0.9%) unknown) 1,000 mls @ 1,000 mls/hr IV BOLUS ONE (unknown) (no (unknown) (unknown) Soft tissues:? There (uni ts (unknown) date) are surgical clips in unknown) the medial leg.? In the medial leg, (unknown) (no (unknown) (unknown) Stated complaint: (units (unknown) date) Dementia unknown) (unknown) (no (unknown) (unknown) Substance Use Type: (unit s (unknown) date) does not use unknown) (unknown) (no (unknown) (unknown) Surgical History (units (unknown) date) (Reviewed 11/15/19 @ unknown) 04:28 by MEKA Garcia) (unknown) (no (unknown) (unknown) Temperature (units (un known) date) unknown) (unknown) (no (unknown) (unknown) Temperature (units (un known) date) unknown) (unknown) (no (unknown) (unknown) Temperature 96.3 F L (uni ts (unknown) date) 96.8 F L unknown) (unknown) (no (unknown) (unknown) Temperature 97.7 F (units (unknown) date) 01/26/22 19:44 unknown) (unknown) (no (unknown) (unknown) Temperature 96.7 F L (uni ts (unknown) date) 96.5 F L unknown) (unknown) (no (unknown) (unknown) Temperature 97.7 F (units (unknown) date) 96.8 F L unknown) (unknown) (no (unknown) (unknown) Temperature 98.6 F (units (unknown) date) 96.8 F L 96.7 F L unknown) (unknown) (no (unknown) (unknown) There is a very (units (unknown) date) small hypodense joint unknown) effusion present.? Mild to moderate (unknown) (no (unknown) (unknown) This critical care (units (unknown) date) time includes unknown) consultation with family and other consulting (unknown) (no (unknown) (unknown) Time Seen by (units (u nknown) date) Provider: 01/26/22 unknown) 19:49 (unknown) (no (unknown) (unknown) Total Bilirubin (units (unknown) date) (0.2-1.3) mg/dL unknown) (unknown) (no (unknown) (unknown) Total Bilirubin 1.5 (unit s (unknown) date) H (0.2-1.3) mg/dL unknown) (unknown) (no (unknown) (unknown) Total Critical Care (unit s (unknown) date) Time: 36 unknown) (unknown) (no (unknown) (unknown) Total Protein (units ( unknown) date) (6.3-8.2) g/dL unknown) (unknown) (no (unknown) (unknown) Total Protein 7.1 (units (unknown) date) (6.3-8.2) g/dL unknown) (unknown) (no (unknown) (unknown) Type and Screen Stat (uni ts (unknown) date) unknown) (unknown) (no (unknown) (unknown) U-100 Insulin) (units (unknown) date) unknown) (unknown) (no (unknown) (unknown) Urine Microscopic (units (unknown) date) Stat unknown) (unknown) (no (unknown) (unknown) Urine Specific (units (unknown) date) [place] 1.02 unknown) (unknown) (no (unknown) (unknown) VITAMIN D (Vitamin (units (unknown) date) D3) ##0 07/08/12 unknown) (unknown) (no (unknown) (unknown) Vancomycin HCl (units (unknown) date) (Vancomycin Per unknown) Pharmacy) [place] [facility] [place] ([place]) (no (unknown) (unknown) Vancomycin (units (unk nown) date) HCl/Dextrose unknown) (Vancomycin) 1,500 mg in 300 mls @ 200 mls/hr IV NOW (unknown) (no (unknown) (unknown) Visualized sinuses (units (unknown) date) and mastoids are unknown) otherwise clear.? (unknown) (no (unknown) (unknown) Vital Signs (units (un known) date) unknown) (unknown) (no (unknown) (unknown) Vital signs: (units (u nknown) date) unknown) (unknown) (no (unknown) (unknown) Will give him 80 mg (unit s (unknown) date) of IV Lasix given his unknown) increased creatinine and usual oral (unknown) (no (unknown) (unknown) XR chest 1V Stat (units (unknown) date) unknown) (unknown) (no (unknown) (unknown) [Embedded Image Not (unit s (unknown) date) Available] unknown) (unknown) (no (unknown) (unknown) a med list that was (units (unknown) date) printed out from the unknown) end of December it looks like it could have (unknown) (no (unknown) (unknown) age, with (units (unkn own) date) unknown) (unknown) (no (unknown) (unknown) alcohol intake (units (unknown) date) frequency: unknown) holidays/special occasions only (unknown) (no (unknown) (unknown) allopurinol 100 mg (units (unknown) date) tablet 100 mg PO BID unknown) 11/15/19 11/15/19 (unknown) (no (unknown) (unknown) alteration in mental (uni ts (unknown) date) status, Acute kidney unknown) injury (unknown) (no (unknown) (unknown) and acute blood loss (uni ts (unknown) date) I do not believe this unknown) is sepsis. I have begun transfusion (unknown) (no (unknown) (unknown) articular (units (unkn own) date) involvement. unknown) (unknown) (no (unknown) (unknown) aspect of his left (units (unknown) date) lower leg that is unknown) abrading into the top of his foot and has a (unknown) (no (unknown) (unknown) aspirin 81 mg (units ( unknown) date) chewable tablet 81 mg unknown) PO QDAY ##0 07/08/12 11/15/19 (unknown) (no (unknown) (unknown) atherosclerotic (units (unknown) date) unknown) (unknown) (no (unknown) (unknown) atorvastatin 20 mg (units (unknown) date) tablet 20 mg PO DAILY unknown) 11/15/19 11/15/19 (unknown) (no (unknown) (unknown) been associated with (unit s (unknown) date) the [facility] and looks like it may be from (unknown) (no (unknown) (unknown) calcification is (units (unknown) date) seen.? Mild unknown) circumferential soft tissue edema.? No significant (unknown) (no (unknown) (unknown) carbidopa 25 (units (u nknown) date) mg-levodopa 100 mg 1 unknown) tab PO BEDTIME RLS 11/15/19 11/15/19 (unknown) (no (unknown) (unknown) carotid artery (units (unknown) date) atherosclerosis.? unknown) (unknown) (no (unknown) (unknown) carvedilol 12.5 mg (units (unknown) date) tablet 12.5 mg PO BID unknown) 11/15/19 11/15/19 (unknown) (no (unknown) (unknown) cellulitis, but (units (unknown) date) abscess is not unknown) entirely excluded. (unknown) (no (unknown) (unknown) changes. ? (units (unk nown) date) unknown) (unknown) (no (unknown) (unknown) circumscribed (units ( unknown) date) subcutaneous mass unknown) measuring approximately 9.5 cm in craniocaudal (unknown) (no (unknown) (unknown) complaining of (units (unknown) date) dyspnea, chest pain unknown) appears to be more alert not complaining of (unknown) (no (unknown) (unknown) completely aware?. (units (unknown) date) No additional history unknown) is yet available available. There is (unknown) (no (unknown) (unknown) congestive heart (units (unknown) date) failure, history of unknown) B-cell lymphoma. his son called 911 today (unknown) (no (unknown) (unknown) creatinine change (units (unknown) date) from 1.63 on January unknown) to a creatinine of 3.18 today. Repeat (unknown) (no (unknown) (unknown) cyclobenzaprine 10 (units (unknown) date) mg tablet 10 mg PO unknown) TID 11/15/19 11/15/19 (unknown) (no (unknown) (unknown) details: x 9 (uni ts (unknown) date) months unknown) (unknown) (no (unknown) (unknown) developing mild (units (unknown) date) erythema. Left knee unknown) with a very large bulla/hematoma on the (unknown) (no (unknown) (unknown) diabetes. With this (unit s (unknown) date) admission he was unknown) noted to be ?a bright adult elderly (unknown) (no (unknown) (unknown) dimension, (units (unk nown) date) unknown) (unknown) (no (unknown) (unknown) discontinued (units (u nknown) date) reportedly no fevers unknown) chills new new injury or fall. He was seen (unknown) (no (unknown) (unknown) doctors, review of (units (unknown) date) records, and unknown) interpretation of data from labs, EKGs and (unknown) (no (unknown) (unknown) dose of 20 mg. At (units (unknown) date) this time his blood unknown) pressure has come up nicely, he is not (unknown) (no (unknown) (unknown) echocardiogram and (units (unknown) date) cardioversion for unknown) atrial fibrillation. Was discharged home (unknown) (no (unknown) (unknown) excoriation on the (units (unknown) date) medial aspect of his unknown) foot from the splint as well. (unknown) (no (unknown) (unknown) explanation for (units (unknown) date) hypotension given his unknown) significant bleeding into the left knee (unknown) (no (unknown) (unknown) fascia of (units (unkn own) date) unknown) (unknown) (no (unknown) (unknown) ferrous gluconate 324 (uni ts (unknown) date) mg, glargine insulin, unknown) metformin, omeprazole, Mirapex 0.125 (unknown) (no (unknown) (unknown) ferrous sulfate (units (unknown) date) Allergy Muscle Pain unknown) Verified 11/14/19 20:28 (unknown) (no (unknown) (unknown) fully assess. It (units (unknown) date) clearly is more than unknown) a couple of days old appears exacerbated (unknown) (no (unknown) (unknown) gabapentin Allergy (units (unknown) date) Confusion Verified unknown) 11/14/19 20:28 (unknown) (no (unknown) (unknown) gentleman? (units (unk nown) date) unknown) (unknown) (no (unknown) (unknown) has a piece of (units (unknown) date) fiberglass casting unknown) material extending from the medial malleolus (unknown) (no (unknown) (unknown) have a significantly (uni ts (unknown) date) elevated white blood unknown) cell count. He does have significant (unknown) (no (unknown) (unknown) he had a CT scan (units (unknown) date) that showed hematoma unknown) but no fractures his anticoagulation was (unknown) (no (unknown) (unknown) hematoma and likely (unit s (unknown) date) the source of acute unknown) blood loss (unknown) (no (unknown) (unknown) him as alert and (units (unknown) date) oriented x3 no acute unknown) distress. ER note says that a fiberglass (unknown) (no (unknown) (unknown) his son is involved (unit s (unknown) date) in his care. Will unknown) benefit from orthopedic consultation for (unknown) (no (unknown) (unknown) hospitalization and (unit s (unknown) date) some from his very unknown) frail skin. Area of excoriation on the (unknown) (no (unknown) (unknown) household members: (units (unknown) date) significant other unknown) (unknown) (no (unknown) (unknown) hydrochlorothiazide (unit s (unknown) date) 25 mg tablet 50 mg PO unknown) QDAY ##0 07/08/12 (unknown) (no (unknown) (unknown) hypertension, (units ( unknown) date) hyperlipidemia, unknown) diabetes, cognitive decline, hyperlipidemia, (unknown) (no (unknown) (unknown) hypotensive found to (unit s (unknown) date) be significantly unknown) anemic, presumably secondary to blood loss (unknown) (no (unknown) (unknown) if not caused from (units (unknown) date) the splint that had unknown) been in place. There is an area of (unknown) (no (unknown) (unknown) imaging as well as (units (unknown) date) managements of unknown) altered mental status, concern for severe (unknown) (no (unknown) (unknown) injector (Ozempic) (units (unknown) date) unknown) (unknown) (no (unknown) (unknown) insulin glargine 100 (uni ts (unknown) date) unit/mL 100 unit SQ unknown) DAILY ##0 07/08/12 11/15/19 (unknown) (no (unknown) (unknown) internal (units (unkno wn) date) unknown) (unknown) (no (unknown) (unknown) into the (units (unkno wn) date) unknown) (unknown) (no (unknown) (unknown) intramuscular oil (units (unknown) date) unknown) (unknown) (no (unknown) (unknown) involving the (units ( unknown) date) unknown) (unknown) (no (unknown) (unknown) is not in any pain (units (unknown) date) at this time. unknown) (unknown) (no (unknown) (unknown) ischemic (units (unkno wn) date) unknown) (unknown) (no (unknown) (unknown) knee pain and I (units (unknown) date) believe will be unknown) appropriate for admission to [facility]. I (unknown) (no (unknown) (unknown) lateral (units (unkno wn) date) compartment.? No unknown) suspicious periostitis. (unknown) (no (unknown) (unknown) left forearm with a (unit s (unknown) date) small area of unknown) ulceration without underlying abscess (unknown) (no (unknown) (unknown) lesions.? (units (unkn own) date) unknown) (unknown) (no (unknown) (unknown) level of the knee (units (unknown) date) joint, there is an unknown) irregular, slightly hyperdense, but non (unknown) (no (unknown) (unknown) lisinopril 20 mg (units (unknown) date) tablet 10 mg PO QDAY unknown) ##0 07/08/12 11/15/19 (unknown) (no (unknown) (unknown) long-leg posterior (units (unknown) date) splint was applied on unknown) arrival in the emergency department he (unknown) (no (unknown) (unknown) loss. He will need (units (unknown) date) close management of unknown) his congestive heart failure as well as (unknown) (no (unknown) (unknown) marital status: (units (unknown) date) unknown) (unknown) (no (unknown) (unknown) mass without (units (u nknown) date) extension to the unknown) underlying joint that clinically appears to be a (unknown) (no (unknown) (unknown) medial aspect it (units (unknown) date) does not appear to be unknown) intra-articular but it is difficult to (unknown) (no (unknown) (unknown) membranes (units (unkn own) date) unknown) (unknown) (no (unknown) (unknown) mg, allopurinol, (units (unknown) date) amiodarone 200 mg, unknown) atorvastatin 40 mg, duloxetine 30 mg, (unknown) (no (unknown) (unknown) mg/1.5 mL) (units (unk nown) date) subcutaneous pen unknown) (unknown) (no (unknown) (unknown) motion at the knee. (unit s (unknown) date) He also has a unknown) dressing in place on the left forearm with (unknown) (no (unknown) (unknown) multiple bruises all (unit s (unknown) date) over. He is pale but unknown) not complaining of headache. He will (unknown) (no (unknown) (unknown) near the (units (unkno wn) date) unknown) (unknown) (no (unknown) (unknown) not tachypneic and (units (unknown) date) is able to speak in unknown) full sentences (unknown) (no (unknown) (unknown) of 2 units of packed (uni ts (unknown) date) blood cells and he unknown) has responded nicely to the volume. (unknown) (no (unknown) (unknown) omeprazole 40 mg (units (unknown) date) capsule,delayed 40 mg unknown) PO DAILY ##0 07/08/12 11/15/19 (unknown) (no (unknown) (unknown) open his eyes to (units (unknown) date) command but not unknown) oriented to person time place it. He states he (unknown) (no (unknown) (unknown) overlying (units (unkn own) date) unknown) (unknown) (no (unknown) (unknown) oxycodone 10 mg (units (unknown) date) tablet,crush 10 mg PO unknown) BID 11/15/19 11/15/19 (unknown) (no (unknown) (unknown) paroxysmal atrial (units (unknown) date) fibrillation unknown) anticoagulated on rivaroxaban, post TAVR, (unknown) (no (unknown) (unknown) probability of a (units (unknown) date) significant, sudden unknown) or life-threatening deterioration that (unknown) (no (unknown) (unknown) recommendations on (units (unknown) date) management of the unknown) left knee external hematoma without intra- (unknown) (no (unknown) (unknown) refill both lower (units (unknown) date) extremities. unknown) (unknown) (no (unknown) (unknown) release (units (unkno wn) date) unknown) (unknown) (no (unknown) (unknown) remove the splint in (uni ts (unknown) date) 2-3 days. unknown) (unknown) (no (unknown) (unknown) requires my full and (uni ts (unknown) date) direct attention, unknown) intervention and personal management. (unknown) (no (unknown) (unknown) resistant,extended (units (unknown) date) release 12 hr unknown) (unknown) (no (unknown) (unknown) resultant ventricular (uni ts (unknown) date) and sulcal unknown) prominence.? There are mild periventricular and (unknown) (no (unknown) (unknown) return he is found (units (unknown) date) to be dramatically unknown) anemic with acute kidney injury with (unknown) (no (unknown) (unknown) rivaroxaban 20 mg (units (unknown) date) tablet (Xarelto) 20 unknown) mg PO DAILY 11/14/19 11/14/19 (unknown) (no (unknown) (unknown) semaglutide 0.25 mg (unit s (unknown) date) or 0.5 mg (2 0.25 mg unknown) SUBCUT QWEEK 11/15/19 11/15/19 (unknown) (no (unknown) (unknown) sepsis, congestive (units (unknown) date) heart failure and unknown) acute blood loss. 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 He does of his son (unknown) (no (unknown) (unknown) spironolactone 25 (units (unknown) date) mg, torsemide 20 mg, unknown) Jardiance, lisinopril 2.5 mg, Xarelto 15 (unknown) (no (unknown) (unknown) subcutaneous (units (u nknown) date) solution (Lantus unknown) (unknown) (no (unknown) (unknown) superiorly and (units (unknown) date) inferiorly. Was unknown) discharged with pain control instructions to (unknown) (no (unknown) (unknown) suspicious (units (unk nown) date) unknown) (unknown) (no (unknown) (unknown) tablet (units (unkno wn) date) unknown) (unknown) (no (unknown) (unknown) testosterone (units (u nknown) date) cypionate 200 mg/mL unknown) ##0 07/08/12 (unknown) (no (unknown) (unknown) the following day (units (unknown) date) with complaints of unknown) increasing pain. Physical exam describes (unknown) (no (unknown) (unknown) the vastus medialis (unit s (unknown) date) muscle. unknown) (unknown) (no (unknown) (unknown) thickening. (units (un known) date) unknown) (unknown) (no (unknown) (unknown) to have heart (units ( unknown) date) failure, paroxysmal unknown) atrial fibrillation, coronary disease, (unknown) (no (unknown) (unknown) to his son's house (units (unknown) date) on aspirin, unknown) clopidogrel, metoprolol succinate 50 mg, (unknown) (no (unknown) (unknown) to the distal knee, (unit s (unknown) date) not crossing any unknown) joint and causing significant irritation (unknown) (no (unknown) (unknown) transfuse [Packed (units (unknown) date) Cells] Stat unknown) (unknown) (no (unknown) (unknown) unchecked. (units (unk nown) date) unknown) (unknown) (no (unknown) (unknown) underlying joint (units (unknown) date) space.? There might unknown) be slight thickening of the superficial (unknown) (no (unknown) (unknown) underlying joint.? (units (unknown) date) This is likely a unknown) hematoma or contusion given lack of (unknown) (no (unknown) (unknown) underlying skin (units (unknown) date) irritation shallow unknown) ulceration and developing cellulitis, (unknown) (no (unknown) (unknown) underwent PCI of the (uni ts (unknown) date) distal right coronary unknown) artery, had a transesophageal (unknown) (no (unknown) (unknown) ventricles are (units (unknown) date) symmetric in size and unknown) shape.? (unknown) (no (unknown) (unknown) ventricular ejection (uni ts (unknown) date) fraction at 15% with unknown) volume overload and tachycardia. He (unknown) (no (unknown) (unknown) white matter chronic (uni ts (unknown) date) small vessel ischemic unknown) changes.? There is intracranial (unknown) (no (unknown) (unknown) with concerns for (units (unknown) date) his overall unknown) well-being and concerned that ?times he is not (unknown) (no (unknown) (unknown) with bruising (units ( unknown) date) extending proximal unknown) and distal from his knee with minimal range of (unknown) (no (unknown) (unknown) zolpidem [From (units (unknown) date) Ambien] Allergy unknown) Confusion Verified 11/14/19 20:28 Result panel 32 (unknown) (no date) (unknown) (unknown) 1.7 mg/dL (unkn own) Result panel 33 (unknown) (no date) (unknown) (unknown) 6.5 % (unkn own) Result panel 34 (unknown) (no date) (unknown) (unknown) 24.5 % (unkn own) (unknown) (no date) (unknown) (unknown) 7.9 g/dL (unkn own) Result panel 35 (unknown) (no (unknown) (unknown) (no value) (units (unk nown) date) unknown) (unknown) (no (unknown) (unknown) (no value) (units (unk nown) date) unknown) (unknown) (no (unknown) (unknown) Date of Service: (units (unknown) date) 01/27/22 unknown) (unknown) (no (unknown) (unknown) (no value) (units (unk nown) date) unknown) (unknown) (no (unknown) (unknown) - (units (unkno wn) date) unknown) (unknown) (no (unknown) (unknown) 01/26/22 19:40 (units (unknown) date) unknown) (unknown) (no (unknown) (unknown) 01/27/22 01:37 (units (unknown) date) unknown) (unknown) (no (unknown) (unknown) Allergies (units (unkn own) date) unknown) (unknown) (no (unknown) (unknown) History + Physical (units (unknown) date) Report unknown) (unknown) (no (unknown) (unknown) Home Medications (units (unknown) date) unknown) (unknown) (no (unknown) (unknown) [facility] [id number] (unknown) date[address] unknown) [place] [address] (unknown) (no (unknown) (unknown) Laboratory Results - (uni ts (unknown) date) last 24 hr unknown) (unknown) (no (unknown) (unknown) (no value) (units (unk nown) date) unknown) (unknown) (no (unknown) (unknown) 01/26/22 01/26/22 (units (unknown) date) 01/26/22 unknown) (unknown) (no (unknown) (unknown) 01/26/22 01/27/22 (units (unknown) date) unknown) (unknown) (no (unknown) (unknown) 19:40 19:40 19:40 (units (unknown) date) unknown) (unknown) (no (unknown) (unknown) 19:40 19:40 20:21 (units (unknown) date) unknown) (unknown) (no (unknown) (unknown) 20:47 01:37 (units (un known) date) unknown) (unknown) (no (unknown) (unknown) 01/26/22 (units (unkno wn) date) unknown) (unknown) (no (unknown) (unknown) 01/27/22 (units (unkno wn) date) unknown) (unknown) (no (unknown) (unknown) Medication (units (unk nown) date) Instructions Recorded unknown) Confirmed Type (unknown) (no (unknown) (unknown) (Depo-Testosterone) (unit s (unknown) date) unknown) (unknown) (no (unknown) (unknown) (GLUCOPHAGE) (units (u nknown) date) unknown) (unknown) (no (unknown) (unknown) (past 8 hours): (units (unknown) date) unknown) (unknown) (no (unknown) (unknown) 00:00 (units (unkno wn) date) unknown) (unknown) (no (unknown) (unknown) 00:00 01/27/22 (units (unknown) date) unknown) (unknown) (no (unknown) (unknown) 00:15 01/27/22 (units (unknown) date) unknown) (unknown) (no (unknown) (unknown) 00:30 (units (unkno wn) date) unknown) (unknown) (no (unknown) (unknown) 00:30 01/27/22 (units (unknown) date) unknown) (unknown) (no (unknown) (unknown) 00:45 (units (unkno wn) date) unknown) (unknown) (no (unknown) (unknown) 00:45 01/27/22 (units (unknown) date) unknown) (unknown) (no (unknown) (unknown) 01:00 01/27/22 (units (unknown) date) unknown) (unknown) (no (unknown) (unknown) 01:01 (units (unkno wn) date) unknown) (unknown) (no (unknown) (unknown) 01:01 01/27/22 (units (unknown) date) unknown) (unknown) (no (unknown) (unknown) 01:35 (units (unkno wn) date) unknown) (unknown) (no (unknown) (unknown) 19:44 01/26/22 (units (unknown) date) unknown) (unknown) (no (unknown) (unknown) 20:34 01/26/22 (units (unknown) date) unknown) (unknown) (no (unknown) (unknown) 20:41 (units (unkno wn) date) unknown) (unknown) (no (unknown) (unknown) 21:00 01/26/22 (units (unknown) date) unknown) (unknown) (no (unknown) (unknown) 21:25 (units (unkno wn) date) unknown) (unknown) (no (unknown) (unknown) 21:25 01/26/22 (units (unknown) date) unknown) (unknown) (no (unknown) (unknown) 21:30 (units (unkno wn) date) unknown) (unknown) (no (unknown) (unknown) 21:30 01/26/22 (units (unknown) date) unknown) (unknown) (no (unknown) (unknown) 21:45 (units (unkno wn) date) unknown) (unknown) (no (unknown) (unknown) 21:45 01/26/22 (units (unknown) date) unknown) (unknown) (no (unknown) (unknown) 22:00 01/26/22 (units (unknown) date) unknown) (unknown) (no (unknown) (unknown) 22:15 (units (unkno wn) date) unknown) (unknown) (no (unknown) (unknown) 22:15 01/26/22 (units (unknown) date) unknown) (unknown) (no (unknown) (unknown) 22:30 (units (unkno wn) date) unknown) (unknown) (no (unknown) (unknown) 22:30 01/26/22 (units (unknown) date) unknown) (unknown) (no (unknown) (unknown) 22:35 01/26/22 (units (unknown) date) unknown) (unknown) (no (unknown) (unknown) 22:36 01/26/22 (units (unknown) date) unknown) (unknown) (no (unknown) (unknown) 22:45 (units (unkno wn) date) unknown) (unknown) (no (unknown) (unknown) 22:45 01/26/22 (units (unknown) date) unknown) (unknown) (no (unknown) (unknown) 22:50 (units (unkno wn) date) unknown) (unknown) (no (unknown) (unknown) 22:51 01/26/22 (units (unknown) date) unknown) (unknown) (no (unknown) (unknown) 23:00 01/26/22 (units (unknown) date) unknown) (unknown) (no (unknown) (unknown) 23:01 (units (unkno wn) date) unknown) (unknown) (no (unknown) (unknown) 23:01 01/26/22 (units (unknown) date) unknown) (unknown) (no (unknown) (unknown) 23:04 01/26/22 (units (unknown) date) unknown) (unknown) (no (unknown) (unknown) 23:07 (units (unkno wn) date) unknown) (unknown) (no (unknown) (unknown) 23:15 (units (unkno wn) date) unknown) (unknown) (no (unknown) (unknown) 23:15 01/26/22 (units (unknown) date) unknown) (unknown) (no (unknown) (unknown) 23:30 01/26/22 (units (unknown) date) unknown) (unknown) (no (unknown) (unknown) 23:45 (units (unkno wn) date) unknown) (unknown) (no (unknown) (unknown) 23:45 01/27/22 (units (unknown) date) unknown) (unknown) (no (unknown) (unknown) [id number] (units (unkno wn) date) unknown) (unknown) (no (unknown) (unknown) ALT (units (unkno wn) date) unknown) (unknown) (no (unknown) (unknown) ALT (units (unkno wn) date) unknown) (unknown) (no (unknown) (unknown) ALT 27 (units (unkno wn) date) unknown) (unknown) (no (unknown) (unknown) AST (units (unkno wn) date) unknown) (unknown) (no (unknown) (unknown) AST (units (unkno wn) date) unknown) (unknown) (no (unknown) (unknown) AST 28 (units (unkno wn) date) unknown) (unknown) (no (unknown) (unknown) Age/Sex: 76 / M (units (unknown) date) unknown) (unknown) (no (unknown) (unknown) Albumin (units (unkno wn) date) unknown) (unknown) (no (unknown) (unknown) Albumin (units (unkno wn) date) unknown) (unknown) (no (unknown) (unknown) Albumin 3.6 (units (un known) date) unknown) (unknown) (no (unknown) (unknown) Albumin/Globulin (units (unknown) date) Ratio unknown) (unknown) (no (unknown) (unknown) Albumin/Globulin (units (unknown) date) Ratio unknown) (unknown) (no (unknown) (unknown) Albumin/Globulin (units (unknown) date) Ratio 1.0 unknown) (unknown) (no (unknown) (unknown) Alkaline Phosphatase (uni ts (unknown) date) unknown) (unknown) (no (unknown) (unknown) Alkaline Phosphatase (uni ts (unknown) date) unknown) (unknown) (no (unknown) (unknown) Alkaline Phosphatase (uni ts (unknown) date) 170 H unknown) (unknown) (no (unknown) (unknown) Allergy/AdvReac Type (uni ts (unknown) date) Severity Reaction unknown) Status Date / Time (unknown) (no (unknown) (unknown) Anisocytosis (units (u nknown) date) unknown) (unknown) (no (unknown) (unknown) Anisocytosis (units (u nknown) date) unknown) (unknown) (no (unknown) (unknown) Anisocytosis 3+ H (units (unknown) date) unknown) (unknown) (no (unknown) (unknown) Anti-Inflamma (units ( unknown) date) disease unknown) (unknown) (no (unknown) (unknown) Antibody Screen (units (unknown) date) unknown) (unknown) (no (unknown) (unknown) Antibody Screen (units (unknown) date) unknown) (unknown) (no (unknown) (unknown) Antibody Screen (units (unknown) date) Negative unknown) (unknown) (no (unknown) (unknown) Anticoagulated (units (unknown) date) unknown) (unknown) (no (unknown) (unknown) Assessment + Plan (units (unknown) date) unknown) (unknown) (no (unknown) (unknown) Atrial fibrillation (unit s (unknown) date) unknown) (unknown) (no (unknown) (unknown) BUN (units (unkno wn) date) unknown) (unknown) (no (unknown) (unknown) BUN (units (unkno wn) date) unknown) (unknown) (no (unknown) (unknown) BUN 61 H (units (unkno wn) date) unknown) (unknown) (no (unknown) (unknown) BUN/Creatinine Ratio (uni ts (unknown) date) unknown) (unknown) (no (unknown) (unknown) BUN/Creatinine Ratio (uni ts (unknown) date) unknown) (unknown) (no (unknown) (unknown) BUN/Creatinine Ratio (uni ts (unknown) date) 19.2 unknown) (unknown) (no (unknown) (unknown) Baso # (Auto) (units ( unknown) date) unknown) (unknown) (no (unknown) (unknown) Baso # (Auto) (units ( unknown) date) unknown) (unknown) (no (unknown) (unknown) Baso # (Auto) 100 (units (unknown) date) unknown) (unknown) (no (unknown) (unknown) Baso % (Auto) (units ( unknown) date) unknown) (unknown) (no (unknown) (unknown) Baso % (Auto) (units ( unknown) date) unknown) (unknown) (no (unknown) (unknown) Baso % (Auto) 1.0 (units (unknown) date) unknown) (unknown) (no (unknown) (unknown) Been Physically Hurt (uni ts (unknown) date) or No unknown) (unknown) (no (unknown) (unknown) Blood Pressure (units (unknown) date) 101/57 L unknown) (unknown) (no (unknown) (unknown) Blood Pressure (units (unknown) date) 103/52 L unknown) (unknown) (no (unknown) (unknown) Blood Pressure (units (unknown) date) 102/52 L 98/52 L unknown) (unknown) (no (unknown) (unknown) Blood Pressure 95/53 (uni ts (unknown) date) L unknown) (unknown) (no (unknown) (unknown) Blood Pressure 95/54 (uni ts (unknown) date) L unknown) (unknown) (no (unknown) (unknown) Blood Pressure 95/55 (uni ts (unknown) date) L unknown) (unknown) (no (unknown) (unknown) Blood Pressure (units (unknown) date) 101/52 L 95/54 L unknown) (unknown) (no (unknown) (unknown) Blood Pressure (units (unknown) date) 102/53 L 109/57 L unknown) (unknown) (no (unknown) (unknown) Blood Pressure (units (unknown) date) 108/46 L unknown) (unknown) (no (unknown) (unknown) Blood Pressure 78/54 (uni ts (unknown) date) L 102/52 L unknown) (unknown) (no (unknown) (unknown) Blood Pressure 90/50 (uni ts (unknown) date) L 92/51 L unknown) (unknown) (no (unknown) (unknown) Blood Pressure 94/46 (uni ts (unknown) date) L 95/55 L 98/52 L unknown) (unknown) (no (unknown) (unknown) Blood Pressure 96/53 (uni ts (unknown) date) L unknown) (unknown) (no (unknown) (unknown) Blood Pressure 97/52 (uni ts (unknown) date) L 101/54 L unknown) (unknown) (no (unknown) (unknown) Blood Pressure 98/52 (uni ts (unknown) date) L unknown) (unknown) (no (unknown) (unknown) Blood Pressure 98/52 (uni ts (unknown) date) L 95/54 L 95/50 L unknown) (unknown) (no (unknown) (unknown) Blood Pressure 98/52 (uni ts (unknown) date) L 97/52 L 102/53 L unknown) (unknown) (no (unknown) (unknown) Blood Type (units (unk nown) date) unknown) (unknown) (no (unknown) (unknown) Blood Type (units (unk nown) date) unknown) (unknown) (no (unknown) (unknown) Blood Type A (units (u nknown) date) Negative unknown) (unknown) (no (unknown) (unknown) Calcium (units (unkno wn) date) unknown) (unknown) (no (unknown) (unknown) Calcium (units (unkno wn) date) unknown) (unknown) (no (unknown) (unknown) Calcium 8.4 (units (un known) date) unknown) (unknown) (no (unknown) (unknown) Carbon Dioxide (units (unknown) date) unknown) (unknown) (no (unknown) (unknown) Carbon Dioxide (units (unknown) date) unknown) (unknown) (no (unknown) (unknown) Carbon Dioxide 27 (units (unknown) date) unknown) (unknown) (no (unknown) (unknown) Chief complaint: (units (unknown) date) Dementia unknown) (unknown) (no (unknown) (unknown) Chloride (units (unkno wn) date) unknown) (unknown) (no (unknown) (unknown) Chloride (units (unkno wn) date) unknown) (unknown) (no (unknown) (unknown) Chloride 97 L (units ( unknown) date) unknown) (unknown) (no (unknown) (unknown) Coronary artery (units (unknown) date) disease unknown) (unknown) (no (unknown) (unknown) Creatinine (units (unk nown) date) unknown) (unknown) (no (unknown) (unknown) Creatinine (units (unk nown) date) unknown) (unknown) (no (unknown) (unknown) Creatinine 3.18 H (units (unknown) date) unknown) (unknown) (no (unknown) (unknown) Critical Care time: (unit s (unknown) date) unknown) (unknown) (no (unknown) (unknown) Crossmatch (units (unk nown) date) unknown) (unknown) (no (unknown) (unknown) Crossmatch (units (unk nown) date) unknown) (unknown) (no (unknown) (unknown) Crossmatch See (units (unknown) date) Detail unknown) (unknown) (no (unknown) (unknown) : 1945 (units (unknown) date) Acct:[id number] unknown) (unknown) (no (unknown) (unknown) Date Patient Seen: (units (unknown) date) 01/27/22 unknown) (unknown) (no (unknown) (unknown) Deep Vein (units (unkn own) date) Thrombosis/Pulmonary unknown) Embolism Present on Admission: No (unknown) (no (unknown) (unknown) Diabetes (units (unkno wn) date) unknown) (unknown) (no (unknown) (unknown) Dyslipidemia (units (u nknown) date) unknown) (unknown) (no (unknown) (unknown) Environment (units (un known) date) unknown) (unknown) (no (unknown) (unknown) Eos # (Auto) (units (u nknown) date) unknown) (unknown) (no (unknown) (unknown) Eos # (Auto) (units (u nknown) date) unknown) (unknown) (no (unknown) (unknown) Eos # (Auto) 200 (units (unknown) date) unknown) (unknown) (no (unknown) (unknown) Eos % (Auto) (units (u nknown) date) unknown) (unknown) (no (unknown) (unknown) Eos % (Auto) (units (u nknown) date) unknown) (unknown) (no (unknown) (unknown) Eos % (Auto) 2.8 (units (unknown) date) unknown) (unknown) (no (unknown) (unknown) Estimated GFR (units ( unknown) date) unknown) (unknown) (no (unknown) (unknown) Estimated GFR (units ( unknown) date) unknown) (unknown) (no (unknown) (unknown) Estimated GFR 19 L (units (unknown) date) unknown) (unknown) (no (unknown) (unknown) Exam (units (unkno wn) date) unknown) (unknown) (no (unknown) (unknown) Family + Social (units (unknown) date) History unknown) (unknown) (no (unknown) (unknown) Feels Safe in (units ( unknown) date) Current Yes unknown) (unknown) (no (unknown) (unknown) Globulin (units (unkno wn) date) unknown) (unknown) (no (unknown) (unknown) Globulin (units (unkno wn) date) unknown) (unknown) (no (unknown) (unknown) Globulin 3.5 (units (u nknown) date) unknown) (unknown) (no (unknown) (unknown) Glucose (units (unkno wn) date) unknown) (unknown) (no (unknown) (unknown) Glucose (units (unkno wn) date) unknown) (unknown) (no (unknown) (unknown) Glucose 130 H (units ( unknown) date) unknown) (unknown) (no (unknown) (unknown) Hct (units (unkno wn) date) unknown) (unknown) (no (unknown) (unknown) Hct 24.5 L (units (unk nown) date) unknown) (unknown) (no (unknown) (unknown) Hct 20.8 L* (units (un known) date) unknown) (unknown) (no (unknown) (unknown) Hemoglobin A1c (units (unknown) date) unknown) (unknown) (no (unknown) (unknown) Hemoglobin A1c (units (unknown) date) unknown) (unknown) (no (unknown) (unknown) Hemoglobin A1c 6.5 H (uni ts (unknown) date) unknown) (unknown) (no (unknown) (unknown) Hgb (units (unkno wn) date) unknown) (unknown) (no (unknown) (unknown) Hgb 7.9 L (units (unkn own) date) unknown) (unknown) (no (unknown) (unknown) Hgb 6.7 L* (units (unk nown) date) unknown) (unknown) (no (unknown) (unknown) History (units (unkno wn) date) unknown) (unknown) (no (unknown) (unknown) History of Present (units (unknown) date) Illness unknown) (unknown) (no (unknown) (unknown) Home Medications and (uni ts (unknown) date) Allergies unknown) (unknown) (no (unknown) (unknown) Hx of (units (unkno wn) date) cholecystectomy unknown) (unknown) (no (unknown) (unknown) Hypertension (units (u nknown) date) unknown) (unknown) (no (unknown) (unknown) I spent a total of (units (unknown) date) [] minutes of unknown) critical care time on this patient's care (unknown) (no (unknown) (unknown) Labs (units (unkno wn) date) unknown) (unknown) (no (unknown) (unknown) Labs: (units (unkno wn) date) unknown) (unknown) (no (unknown) (unknown) Lactate (units (unkno wn) date) unknown) (unknown) (no (unknown) (unknown) Lactate (units (unkno wn) date) unknown) (unknown) (no (unknown) (unknown) Lactate 1.3 (units (un known) date) unknown) (unknown) (no (unknown) (unknown) Lipase (units (unkno wn) date) unknown) (unknown) (no (unknown) (unknown) Lipase (units (unkno wn) date) unknown) (unknown) (no (unknown) (unknown) Lipase 135 (units (unk nown) date) unknown) (unknown) (no (unknown) (unknown) Lymph # (Auto) (units (unknown) date) unknown) (unknown) (no (unknown) (unknown) Lymph # (Auto) (units (unknown) date) unknown) (unknown) (no (unknown) (unknown) Lymph # (Auto) 800 L (uni ts (unknown) date) unknown) (unknown) (no (unknown) (unknown) Lymph % (Auto) (units (unknown) date) unknown) (unknown) (no (unknown) (unknown) Lymph % (Auto) (units (unknown) date) unknown) (unknown) (no (unknown) (unknown) Lymph % (Auto) 11.4 (unit s (unknown) date) L unknown) (unknown) (no (unknown) (unknown) MCH (units (unkno wn) date) unknown) (unknown) (no (unknown) (unknown) MCH (units (unkno wn) date) unknown) (unknown) (no (unknown) (unknown) MCH 24.6 L (units (unk nown) date) unknown) (unknown) (no (unknown) (unknown) MCHC (units (unkno wn) date) unknown) (unknown) (no (unknown) (unknown) MCHC (units (unkno wn) date) unknown) (unknown) (no (unknown) (unknown) MCHC 32.4 (units (unkn own) date) unknown) (unknown) (no (unknown) (unknown) MCV (units (unkno wn) date) unknown) (unknown) (no (unknown) (unknown) MCV (units (unkno wn) date) unknown) (unknown) (no (unknown) (unknown) MCV 75.7 L (units (unk nown) date) unknown) (unknown) (no (unknown) (unknown) Magnesium (units (unkn own) date) unknown) (unknown) (no (unknown) (unknown) Magnesium (units (unkn own) date) unknown) (unknown) (no (unknown) (unknown) Magnesium 1.7 (units ( unknown) date) unknown) (unknown) (no (unknown) (unknown) Medical History (units (unknown) date) (Updated 01/27/22 @ unknown) 00:57 by MEKA Mendoza) (unknown) (no (unknown) (unknown) Meds (units (unkno wn) date) unknown) (unknown) (no (unknown) (unknown) Metformin (units (unkn own) date) Hydrochloride 1,275 unknown) mg PO BID ##0 07/08/12 History (unknown) (no (unknown) (unknown) Lajas # (Auto) (units ( unknown) date) unknown) (unknown) (no (unknown) (unknown) Lajas # (Auto) (units ( unknown) date) unknown) (unknown) (no (unknown) (unknown) Lajas # (Auto) 700 (units (unknown) date) unknown) (unknown) (no (unknown) (unknown) Lajas % (Auto) (units ( unknown) date) unknown) (unknown) (no (unknown) (unknown) Lajas % (Auto) (units ( unknown) date) unknown) (unknown) (no (unknown) (unknown) Lajas % (Auto) 9.8 (units (unknown) date) unknown) (unknown) (no (unknown) (unknown) NSAIDS (units (unkno wn) date) (Non-Steroidal unknown) AdvReac Severe kidney Verified 11/14/19 20:28 (unknown) (no (unknown) (unknown) Neut # (Auto) (units ( unknown) date) unknown) (unknown) (no (unknown) (unknown) Neut # (Auto) (units ( unknown) date) unknown) (unknown) (no (unknown) (unknown) Neut # (Auto) 5400 (units (unknown) date) unknown) (unknown) (no (unknown) (unknown) Neut % (Auto) (units ( unknown) date) unknown) (unknown) (no (unknown) (unknown) Neut % (Auto) (units ( unknown) date) unknown) (unknown) (no (unknown) (unknown) Neut % (Auto) 75.0 (units (unknown) date) unknown) (unknown) (no (unknown) (unknown) Objective (units (unkn own) date) unknown) (unknown) (no (unknown) (unknown) Oxygen Delivery (units (unknown) date) Method unknown) (unknown) (no (unknown) (unknown) Oxygen Delivery (units (unknown) date) Method Room Air unknown) (unknown) (no (unknown) (unknown) Oxygen Delivery (units (unknown) date) Method unknown) (unknown) (no (unknown) (unknown) Oxygen Delivery (units (unknown) date) Method Room Air unknown) (unknown) (no (unknown) (unknown) Oxygen Flow Rate (units (unknown) date) unknown) (unknown) (no (unknown) (unknown) Oxygen Flow Rate 0 (units (unknown) date) unknown) (unknown) (no (unknown) (unknown) Oxygen Flow Rate 0 (units (unknown) date) unknown) (unknown) (no (unknown) (unknown) Patient History (units (unknown) date) unknown) (unknown) (no (unknown) (unknown) Patient: (units (unkno wn) date) Osmel Baxter MR#: unknown) M000 (unknown) (no (unknown) (unknown) Plt Count (units (unkn own) date) unknown) (unknown) (no (unknown) (unknown) Plt Count (units (unkn own) date) unknown) (unknown) (no (unknown) (unknown) Plt Count 206 (units ( unknown) date) unknown) (unknown) (no (unknown) (unknown) Potassium (units (unkn own) date) unknown) (unknown) (no (unknown) (unknown) Potassium (units (unkn own) date) unknown) (unknown) (no (unknown) (unknown) Potassium 4.3 (units ( unknown) date) unknown) (unknown) (no (unknown) (unknown) Prior Living (units (u nknown) date) [facility]rangements House unknown) (unknown) (no (unknown) (unknown) Procalcitonin (units ( unknown) date) unknown) (unknown) (no (unknown) (unknown) Procalcitonin (units ( unknown) date) unknown) (unknown) (no (unknown) (unknown) Procalcitonin 0.50 (units (unknown) date) unknown) (unknown) (no (unknown) (unknown) Provider: Ese Holland (uni ts (unknown) date) [employer]VERTISING [employer] unknown) (unknown) (no (unknown) (unknown) Pulse Oximetry (units (unknown) date) unknown) (unknown) (no (unknown) (unknown) Pulse Oximetry 98 (units (unknown) date) unknown) (unknown) (no (unknown) (unknown) Pulse Oximetry 99 (units (unknown) date) unknown) (unknown) (no (unknown) (unknown) Pulse Oximetry 100 (units (unknown) date) unknown) (unknown) (no (unknown) (unknown) Pulse Oximetry 89 L (unit s (unknown) date) 98 unknown) (unknown) (no (unknown) (unknown) Pulse Oximetry 97 (units (unknown) date) unknown) (unknown) (no (unknown) (unknown) Pulse Oximetry 97 99 (uni ts (unknown) date) unknown) (unknown) (no (unknown) (unknown) Pulse Oximetry 100 (units (unknown) date) unknown) (unknown) (no (unknown) (unknown) Pulse Oximetry 100 (units (unknown) date) 100 unknown) (unknown) (no (unknown) (unknown) Pulse Oximetry 100 (units (unknown) date) 99 unknown) (unknown) (no (unknown) (unknown) Pulse Oximetry 100 (units (unknown) date) 100 unknown) (unknown) (no (unknown) (unknown) Pulse Oximetry 97 98 (uni ts (unknown) date) unknown) (unknown) (no (unknown) (unknown) Pulse Oximetry 99 (units (unknown) date) unknown) (unknown) (no (unknown) (unknown) Pulse Rate 60 (units ( unknown) date) unknown) (unknown) (no (unknown) (unknown) Pulse Rate 61 (units ( unknown) date) unknown) (unknown) (no (unknown) (unknown) Pulse Rate 61 62 (units (unknown) date) unknown) (unknown) (no (unknown) (unknown) Pulse Rate 63 (units ( unknown) date) unknown) (unknown) (no (unknown) (unknown) Pulse Rate 64 64 (units (unknown) date) unknown) (unknown) (no (unknown) (unknown) Pulse Rate 58 L (units (unknown) date) unknown) (unknown) (no (unknown) (unknown) Pulse Rate 61 61 (units (unknown) date) unknown) (unknown) (no (unknown) (unknown) Pulse Rate 62 62 (units (unknown) date) unknown) (unknown) (no (unknown) (unknown) Pulse Rate 62 61 (units (unknown) date) unknown) (unknown) (no (unknown) (unknown) Pulse Rate 63 63 62 (unit s (unknown) date) unknown) (unknown) (no (unknown) (unknown) Pulse Rate 64 (units ( unknown) date) unknown) (unknown) (no (unknown) (unknown) Pulse Rate 64 63 (units (unknown) date) unknown) (unknown) (no (unknown) (unknown) Pulse Rate 64 64 (units (unknown) date) unknown) (unknown) (no (unknown) (unknown) Pulse Rate 64 62 62 (unit s (unknown) date) unknown) (unknown) (no (unknown) (unknown) Pulse Rate 64 64 65 (unit s (unknown) date) unknown) (unknown) (no (unknown) (unknown) Pulse Rate 65 65 64 (unit s (unknown) date) unknown) (unknown) (no (unknown) (unknown) Quality (units (unkno wn) date) unknown) (unknown) (no (unknown) (unknown) RBC (units (unkno wn) date) unknown) (unknown) (no (unknown) (unknown) RBC (units (unkno wn) date) unknown) (unknown) (no (unknown) (unknown) RBC 2.75 L (units (unk nown) date) unknown) (unknown) (no (unknown) (unknown) RBC Morphology (units (unknown) date) unknown) (unknown) (no (unknown) (unknown) RBC Morphology (units (unknown) date) unknown) (unknown) (no (unknown) (unknown) RBC Morphology Not (units (unknown) date) Reportable unknown) (unknown) (no (unknown) (unknown) RDW (units (unkno wn) date) unknown) (unknown) (no (unknown) (unknown) RDW (units (unkno wn) date) unknown) (unknown) (no (unknown) (unknown) RDW 24.5 H (units (unk nown) date) unknown) (unknown) (no (unknown) (unknown) Respiratory Rate 21 (unit s (unknown) date) unknown) (unknown) (no (unknown) (unknown) Respiratory Rate 15 (unit s (unknown) date) unknown) (unknown) (no (unknown) (unknown) Respiratory Rate 19 (unit s (unknown) date) unknown) (unknown) (no (unknown) (unknown) Respiratory Rate 20 (unit s (unknown) date) 21 unknown) (unknown) (no (unknown) (unknown) Respiratory Rate 20 (unit s (unknown) date) 26 H unknown) (unknown) (no (unknown) (unknown) Respiratory Rate 21 (unit s (unknown) date) unknown) (unknown) (no (unknown) (unknown) Respiratory Rate 12 (unit s (unknown) date) unknown) (unknown) (no (unknown) (unknown) Respiratory Rate 14 (unit s (unknown) date) 13 unknown) (unknown) (no (unknown) (unknown) Respiratory Rate 17 (unit s (unknown) date) unknown) (unknown) (no (unknown) (unknown) Respiratory Rate 17 (unit s (unknown) date) 19 unknown) (unknown) (no (unknown) (unknown) Respiratory Rate 18 (unit s (unknown) date) 14 21 unknown) (unknown) (no (unknown) (unknown) Respiratory Rate 18 (unit s (unknown) date) 15 18 unknown) (unknown) (no (unknown) (unknown) Respiratory Rate 19 (unit s (unknown) date) 16 unknown) (unknown) (no (unknown) (unknown) Respiratory Rate 20 (unit s (unknown) date) 24 unknown) (unknown) (no (unknown) (unknown) Respiratory Rate 20 (unit s (unknown) date) 12 18 unknown) (unknown) (no (unknown) (unknown) Respiratory Rate 21 (unit s (unknown) date) 17 17 unknown) (unknown) (no (unknown) (unknown) Respiratory Rate 22 (unit s (unknown) date) 18 unknown) (unknown) (no (unknown) (unknown) Result Diagrams: (units (unknown) date) unknown) (unknown) (no (unknown) (unknown) S/P CABG x 4 (units (u nknown) date) unknown) (unknown) (no (unknown) (unknown) SARS-CoV-2 (PCR) (units (unknown) date) unknown) (unknown) (no (unknown) (unknown) SARS-CoV-2 (PCR) (units (unknown) date) Negative unknown) (unknown) (no (unknown) (unknown) Safety + Behavioral: (uni ts (unknown) date) unknown) (unknown) (no (unknown) (unknown) Signed By: (units (unk nown) date) unknown) (unknown) (no (unknown) (unknown) Sleep apnea (units (un known) date) unknown) (unknown) (no (unknown) (unknown) Smoking Status (units (unknown) date) Former smoker unknown) (unknown) (no (unknown) (unknown) Social History: (units (unknown) date) unknown) (unknown) (no (unknown) (unknown) Sodium (units (unkno wn) date) unknown) (unknown) (no (unknown) (unknown) Sodium (units (unkno wn) date) unknown) (unknown) (no (unknown) (unknown) Sodium 132 L (units (u nknown) date) unknown) (unknown) (no (unknown) (unknown) Substance Use Type (units (unknown) date) does not use unknown) (unknown) (no (unknown) (unknown) Surgical History (units (unknown) date) (Reviewed 11/15/19 @ unknown) 04:28 by MEKA Garcia) (unknown) (no (unknown) (unknown) Temperature (units (un known) date) unknown) (unknown) (no (unknown) (unknown) Temperature 96.3 F L (uni ts (unknown) date) 96.8 F L unknown) (unknown) (no (unknown) (unknown) Temperature 96.7 F L (uni ts (unknown) date) 96.5 F L unknown) (unknown) (no (unknown) (unknown) Temperature 97.7 F (units (unknown) date) 96.8 F L unknown) (unknown) (no (unknown) (unknown) Temperature 98.1 F (units (unknown) date) unknown) (unknown) (no (unknown) (unknown) Temperature 98.6 F (units (unknown) date) 96.8 F L 96.7 F L unknown) (unknown) (no (unknown) (unknown) Threatened By a (units (unknown) date) Person unknown) (unknown) (no (unknown) (unknown) Time Patient Seen: (units (unknown) date) 02:35 unknown) (unknown) (no (unknown) (unknown) Time Spent With (units (unknown) date) Patient unknown) (unknown) (no (unknown) (unknown) Tobacco + Substance (unit s (unknown) date) use: unknown) (unknown) (no (unknown) (unknown) Total Bilirubin (units (unknown) date) unknown) (unknown) (no (unknown) (unknown) Total Bilirubin (units (unknown) date) unknown) (unknown) (no (unknown) (unknown) Total Bilirubin 1.5 (unit s (unknown) date) H unknown) (unknown) (no (unknown) (unknown) Total Protein (units ( unknown) date) unknown) (unknown) (no (unknown) (unknown) Total Protein (units ( unknown) date) unknown) (unknown) (no (unknown) (unknown) Total Protein 7.1 (units (unknown) date) unknown) (unknown) (no (unknown) (unknown) U-100 Insulin) (units (unknown) date) unknown) (unknown) (no (unknown) (unknown) VITAMIN D (Vitamin (units (unknown) date) D3) ##0 07/08/12 unknown) History (unknown) (no (unknown) (unknown) VTE (units (unkno wn) date) unknown) (unknown) (no (unknown) (unknown) Vital Signs (units (un known) date) unknown) (unknown) (no (unknown) (unknown) WBC (units (unkno wn) date) unknown) (unknown) (no (unknown) (unknown) WBC (units (unkno wn) date) unknown) (unknown) (no (unknown) (unknown) WBC 7.1 (units (unkno wn) date) unknown) (unknown) (no (unknown) (unknown) [Embedded Image Not (unit s (unknown) date) Available] unknown) (unknown) (no (unknown) (unknown) alcohol intake (units (unknown) date) frequency unknown) holiday/special occasion (unknown) (no (unknown) (unknown) allopurinol 100 mg (units (unknown) date) tablet 100 mg PO BID unknown) 11/15/19 11/15/19 History (unknown) (no (unknown) (unknown) aspirin 81 mg (units ( unknown) date) chewable tablet 81 mg unknown) PO QDAY ##0 07/08/12 11/15/19 History (unknown) (no (unknown) (unknown) atorvastatin 20 mg (units (unknown) date) tablet 20 mg PO DAILY unknown) 11/15/19 11/15/19 History (unknown) (no (unknown) (unknown) carbidopa 25 (units (u nknown) date) mg-levodopa 100 mg 1 unknown) tab PO BEDTIME RLS 11/15/19 11/15/19 History (unknown) (no (unknown) (unknown) carvedilol 12.5 mg (units (unknown) date) tablet 12.5 mg PO BID unknown) 11/15/19 11/15/19 History (unknown) (no (unknown) (unknown) cyclobenzaprine 10 (units (unknown) date) mg tablet 10 mg PO unknown) TID 11/15/19 11/15/19 History (unknown) (no (unknown) (unknown) ferrous sulfate (units (unknown) date) Allergy Muscle Pain unknown) Verified 11/14/19 20:28 (unknown) (no (unknown) (unknown) gabapentin Allergy (units (unknown) date) Confusion Verified unknown) 11/14/19 20:28 (unknown) (no (unknown) (unknown) household members (units (unknown) date) significant other unknown) (unknown) (no (unknown) (unknown) hydrochlorothiazide (unit s (unknown) date) 25 mg tablet 50 mg PO unknown) QDAY ##0 07/08/12 History (unknown) (no (unknown) (unknown) injector (Ozempic) (units (unknown) date) unknown) (unknown) (no (unknown) (unknown) insulin glargine 100 (uni ts (unknown) date) unit/mL 100 unit SQ unknown) DAILY ##0 07/08/12 11/15/19 History (unknown) (no (unknown) (unknown) intramuscular oil (units (unknown) date) unknown) (unknown) (no (unknown) (unknown) lisinopril 20 mg (units (unknown) date) tablet 10 mg PO QDAY unknown) ##0 07/08/12 11/15/19 History (unknown) (no (unknown) (unknown) mg/1.5 mL) (units (unk nown) date) subcutaneous pen unknown) (unknown) (no (unknown) (unknown) omeprazole 40 mg (units (unknown) date) capsule,delayed 40 mg unknown) PO DAILY ##0 07/08/12 11/15/19 History (unknown) (no (unknown) (unknown) oxycodone 10 mg (units (unknown) date) tablet,crush 10 mg PO unknown) BID 11/15/19 11/15/19 History (unknown) (no (unknown) (unknown) release (units (unkno wn) date) unknown) (unknown) (no (unknown) (unknown) resistant,extended (units (unknown) date) release 12 hr unknown) (unknown) (no (unknown) (unknown) rivaroxaban 20 mg (units (unknown) date) tablet (Xarelto) 20 unknown) mg PO DAILY 11/14/19 11/14/19 History (unknown) (no (unknown) (unknown) semaglutide 0.25 mg (unit s (unknown) date) or 0.5 mg (2 0.25 mg unknown) SUBCUT QWEEK 11/15/19 11/15/19 History (unknown) (no (unknown) (unknown) sildenafil 100 mg (units (unknown) date) tablet 100 mg PO unknown) DAILY PRN Sexual Activity 11/15/19 11/15/19 (unknown) (no (unknown) (unknown) subcutaneous (units (u nknown) date) solution (Lantus unknown) (unknown) (no (unknown) (unknown) tablet (units (unkno wn) date) unknown) (unknown) (no (unknown) (unknown) testosterone (units (u nknown) date) cypionate 200 mg/mL unknown) ##0 07/08/12 History (unknown) (no (unknown) (unknown) today; this time is (unit s (unknown) date) exclusive of unknown) procedural time. (unknown) (no (unknown) (unknown) zolpidem [From (units (unknown) date) Ambien] Allergy unknown) Confusion Verified 11/14/19 20:28 Result panel 36 (unknown) (no date) (unknown) (unknown) 0-1/HPF (units (unkn own) unknown) (unknown) (no date) (unknown) (unknown) 30-100/HPF (units (un known) unknown) (unknown) (no date) (unknown) (unknown) 30-100/HPF (units (un known) unknown) (unknown) (no date) (unknown) (unknown) Few (2-10) (units (un known) unknown) (unknown) (no date) (unknown) (unknown) Specimen (units (unkn own) Cultured unknown) Result panel 37 (unknown) (no date) (unknown) (unknown) 7170 pg/mL (unkn own) Result panel 38 (unknown) (no (unknown) (unknown) (no value) (units (unk nown) date) unknown) (unknown) (no (unknown) (unknown) (no value) (units (unk nown) date) unknown) (unknown) (no (unknown) (unknown) Date of Service: (units (unknown) date) 01/27/22 unknown) (unknown) (no (unknown) (unknown) (no value) (units (unk nown) date) unknown) (unknown) (no (unknown) (unknown) - (units (unkno wn) date) unknown) (unknown) (no (unknown) (unknown) 01/26/22 19:40 (units (unknown) date) unknown) (unknown) (no (unknown) (unknown) 01/27/22 01:37 (units (unknown) date) unknown) (unknown) (no (unknown) (unknown) Allergies (units (unkn own) date) unknown) (unknown) (no (unknown) (unknown) History + Physical (units (unknown) date) Report unknown) (unknown) (no (unknown) (unknown) Home Medications (units (unknown) date) unknown) (unknown) (no (unknown) (unknown) [facility] [address] (unknown) date[address] unknown) [place] [address] (unknown) (no (unknown) (unknown) Laboratory Results - (uni ts (unknown) date) last 24 hr unknown) (unknown) (no (unknown) (unknown) (no value) (units (unk nown) date) unknown) (unknown) (no (unknown) (unknown) 01/26/22 01/26/22 (units (unknown) date) 01/26/22 unknown) (unknown) (no (unknown) (unknown) 01/26/22 01/27/22 (units (unknown) date) unknown) (unknown) (no (unknown) (unknown) 19:40 19:40 19:40 (units (unknown) date) unknown) (unknown) (no (unknown) (unknown) 19:40 19:40 20:21 (units (unknown) date) unknown) (unknown) (no (unknown) (unknown) 20:47 01:37 (units (un known) date) unknown) (unknown) (no (unknown) (unknown) 01/26/22 (units (unkno wn) date) unknown) (unknown) (no (unknown) (unknown) 01/27/22 (units (unkno wn) date) unknown) (unknown) (no (unknown) (unknown) Medication (units (unk nown) date) Instructions Recorded unknown) Confirmed Type (unknown) (no (unknown) (unknown) (Depo-Testosterone) (unit s (unknown) date) unknown) (unknown) (no (unknown) (unknown) (GLUCOPHAGE) (units (u nknown) date) unknown) (unknown) (no (unknown) (unknown) (past 8 hours): (units (unknown) date) unknown) (unknown) (no (unknown) (unknown) 00:00 (units (unkno wn) date) unknown) (unknown) (no (unknown) (unknown) 00:00 01/27/22 (units (unknown) date) unknown) (unknown) (no (unknown) (unknown) 00:15 01/27/22 (units (unknown) date) unknown) (unknown) (no (unknown) (unknown) 00:30 (units (unkno wn) date) unknown) (unknown) (no (unknown) (unknown) 00:30 01/27/22 (units (unknown) date) unknown) (unknown) (no (unknown) (unknown) 00:45 (units (unkno wn) date) unknown) (unknown) (no (unknown) (unknown) 00:45 01/27/22 (units (unknown) date) unknown) (unknown) (no (unknown) (unknown) 01:00 01/27/22 (units (unknown) date) unknown) (unknown) (no (unknown) (unknown) 01:01 (units (unkno wn) date) unknown) (unknown) (no (unknown) (unknown) 01:01 01/27/22 (units (unknown) date) unknown) (unknown) (no (unknown) (unknown) 01:35 (units (unkno wn) date) unknown) (unknown) (no (unknown) (unknown) 19:44 01/26/22 (units (unknown) date) unknown) (unknown) (no (unknown) (unknown) 20:34 01/26/22 (units (unknown) date) unknown) (unknown) (no (unknown) (unknown) 20:41 (units (unkno wn) date) unknown) (unknown) (no (unknown) (unknown) 21:00 01/26/22 (units (unknown) date) unknown) (unknown) (no (unknown) (unknown) 21:25 (units (unkno wn) date) unknown) (unknown) (no (unknown) (unknown) 21:25 01/26/22 (units (unknown) date) unknown) (unknown) (no (unknown) (unknown) 21:30 (units (unkno wn) date) unknown) (unknown) (no (unknown) (unknown) 21:30 01/26/22 (units (unknown) date) unknown) (unknown) (no (unknown) (unknown) 21:45 (units (unkno wn) date) unknown) (unknown) (no (unknown) (unknown) 21:45 01/26/22 (units (unknown) date) unknown) (unknown) (no (unknown) (unknown) 22:00 01/26/22 (units (unknown) date) unknown) (unknown) (no (unknown) (unknown) 22:15 (units (unkno wn) date) unknown) (unknown) (no (unknown) (unknown) 22:15 01/26/22 (units (unknown) date) unknown) (unknown) (no (unknown) (unknown) 22:30 (units (unkno wn) date) unknown) (unknown) (no (unknown) (unknown) 22:30 01/26/22 (units (unknown) date) unknown) (unknown) (no (unknown) (unknown) 22:35 01/26/22 (units (unknown) date) unknown) (unknown) (no (unknown) (unknown) 22:36 01/26/22 (units (unknown) date) unknown) (unknown) (no (unknown) (unknown) 22:45 (units (unkno wn) date) unknown) (unknown) (no (unknown) (unknown) 22:45 01/26/22 (units (unknown) date) unknown) (unknown) (no (unknown) (unknown) 22:50 (units (unkno wn) date) unknown) (unknown) (no (unknown) (unknown) 22:51 01/26/22 (units (unknown) date) unknown) (unknown) (no (unknown) (unknown) 23:00 01/26/22 (units (unknown) date) unknown) (unknown) (no (unknown) (unknown) 23:01 (units (unkno wn) date) unknown) (unknown) (no (unknown) (unknown) 23:01 01/26/22 (units (unknown) date) unknown) (unknown) (no (unknown) (unknown) 23:04 01/26/22 (units (unknown) date) unknown) (unknown) (no (unknown) (unknown) 23:07 (units (unkno wn) date) unknown) (unknown) (no (unknown) (unknown) 23:15 (units (unkno wn) date) unknown) (unknown) (no (unknown) (unknown) 23:15 01/26/22 (units (unknown) date) unknown) (unknown) (no (unknown) (unknown) 23:30 01/26/22 (units (unknown) date) unknown) (unknown) (no (unknown) (unknown) 23:45 (units (unkno wn) date) unknown) (unknown) (no (unknown) (unknown) 23:45 01/27/22 (units (unknown) date) unknown) (unknown) (no (unknown) (unknown) 3.18 up from 1.63 in (unit s (unknown) date) January. They did a unknown) repeat of the CT which reported a large (unknown) (no (unknown) (unknown) 3.18 with an EGFR of (uni ts (unknown) date) 19 glucose 130 unknown) hemoglobin A1c is 6.5 total bilirubin 1.5 (unknown) (no (unknown) (unknown) [id number] (units (unkno wn) date) unknown) (unknown) (no (unknown) (unknown) 8. He denies nausea (units (unknown) date) or vomiting, dysuria unknown) diarrhea or constipation he does state (unknown) (no (unknown) (unknown) ?he was seen at (units (unknown) date) [facility] on unknown) January 23 and with a ground level fall (unknown) (no (unknown) (unknown) ALT (units (unkno wn) date) unknown) (unknown) (no (unknown) (unknown) ALT (units (unkno wn) date) unknown) (unknown) (no (unknown) (unknown) ALT 27 (units (unkno wn) date) unknown) (unknown) (no (unknown) (unknown) AST (units (unkno wn) date) unknown) (unknown) (no (unknown) (unknown) AST (units (unkno wn) date) unknown) (unknown) (no (unknown) (unknown) AST 28 (units (unkno wn) date) unknown) (unknown) (no (unknown) (unknown) Age/Sex: 76 / M (units (unknown) date) unknown) (unknown) (no (unknown) (unknown) Albumin (units (unkno wn) date) unknown) (unknown) (no (unknown) (unknown) Albumin (units (unkno wn) date) unknown) (unknown) (no (unknown) (unknown) Albumin 3.6 (units (un known) date) unknown) (unknown) (no (unknown) (unknown) Albumin/Globulin (units (unknown) date) Ratio unknown) (unknown) (no (unknown) (unknown) Albumin/Globulin (units (unknown) date) Ratio unknown) (unknown) (no (unknown) (unknown) Albumin/Globulin (units (unknown) date) Ratio 1.0 unknown) (unknown) (no (unknown) (unknown) Alkaline Phosphatase (uni ts (unknown) date) unknown) (unknown) (no (unknown) (unknown) Alkaline Phosphatase (uni ts (unknown) date) unknown) (unknown) (no (unknown) (unknown) Alkaline Phosphatase (uni ts (unknown) date) 170 H unknown) (unknown) (no (unknown) (unknown) Allergy/AdvReac Type (uni ts (unknown) date) Severity Reaction unknown) Status Date / Time (unknown) (no (unknown) (unknown) Anisocytosis (units (u nknown) date) unknown) (unknown) (no (unknown) (unknown) Anisocytosis (units (u nknown) date) unknown) (unknown) (no (unknown) (unknown) Anisocytosis 3+ H (units (unknown) date) unknown) (unknown) (no (unknown) (unknown) Anti-Inflamma (units ( unknown) date) disease unknown) (unknown) (no (unknown) (unknown) Antibody Screen (units (unknown) date) unknown) (unknown) (no (unknown) (unknown) Antibody Screen (units (unknown) date) unknown) (unknown) (no (unknown) (unknown) Antibody Screen (units (unknown) date) Negative unknown) (unknown) (no (unknown) (unknown) Anticoagulated (units (unknown) date) unknown) (unknown) (no (unknown) (unknown) Assessment + Plan (units (unknown) date) unknown) (unknown) (no (unknown) (unknown) Atrial fibrillation (unit s (unknown) date) unknown) (unknown) (no (unknown) (unknown) January 20 or . 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 (unknown) (no (unknown) (unknown) BUN (units (unkno wn) date) unknown) (unknown) (no (unknown) (unknown) BUN (units (unkno wn) date) unknown) (unknown) (no (unknown) (unknown) BUN 61 H (units (unkno wn) date) unknown) (unknown) (no (unknown) (unknown) BUN/Creatinine Ratio (uni ts (unknown) date) unknown) (unknown) (no (unknown) (unknown) BUN/Creatinine Ratio (uni ts (unknown) date) unknown) (unknown) (no (unknown) (unknown) BUN/Creatinine Ratio (uni ts (unknown) date) 19.2 unknown) (unknown) (no (unknown) (unknown) Baso # (Auto) (units ( unknown) date) unknown) (unknown) (no (unknown) (unknown) Baso # (Auto) (units ( unknown) date) unknown) (unknown) (no (unknown) (unknown) Baso # (Auto) 100 (units (unknown) date) unknown) (unknown) (no (unknown) (unknown) Baso % (Auto) (units ( unknown) date) unknown) (unknown) (no (unknown) (unknown) Baso % (Auto) (units ( unknown) date) unknown) (unknown) (no (unknown) (unknown) Baso % (Auto) 1.0 (units (unknown) date) unknown) (unknown) (no (unknown) (unknown) Been Physically Hurt (uni ts (unknown) date) or No unknown) (unknown) (no (unknown) (unknown) Blood Pressure (units (unknown) date) 101/57 L unknown) (unknown) (no (unknown) (unknown) Blood Pressure (units (unknown) date) 103/52 L unknown) (unknown) (no (unknown) (unknown) Blood Pressure (units (unknown) date) 102/52 L 98/52 L unknown) (unknown) (no (unknown) (unknown) Blood Pressure 95/53 (uni ts (unknown) date) L unknown) (unknown) (no (unknown) (unknown) Blood Pressure 95/54 (uni ts (unknown) date) L unknown) (unknown) (no (unknown) (unknown) Blood Pressure 95/55 (uni ts (unknown) date) L unknown) (unknown) (no (unknown) (unknown) Blood Pressure (units (unknown) date) 101/52 L 95/54 L unknown) (unknown) (no (unknown) (unknown) Blood Pressure (units (unknown) date) 102/53 L 109/57 L unknown) (unknown) (no (unknown) (unknown) Blood Pressure (units (unknown) date) 108/46 L unknown) (unknown) (no (unknown) (unknown) Blood Pressure 78/54 (uni ts (unknown) date) L 102/52 L unknown) (unknown) (no (unknown) (unknown) Blood Pressure 90/50 (uni ts (unknown) date) L 92/51 L unknown) (unknown) (no (unknown) (unknown) Blood Pressure 94/46 (uni ts (unknown) date) L 95/55 L 98/52 L unknown) (unknown) (no (unknown) (unknown) Blood Pressure 96/53 (uni ts (unknown) date) L unknown) (unknown) (no (unknown) (unknown) Blood Pressure 97/52 (uni ts (unknown) date) L 101/54 L unknown) (unknown) (no (unknown) (unknown) Blood Pressure 98/52 (uni ts (unknown) date) L unknown) (unknown) (no (unknown) (unknown) Blood Pressure 98/52 (uni ts (unknown) date) L 95/54 L 95/50 L unknown) (unknown) (no (unknown) (unknown) Blood Pressure 98/52 (uni ts (unknown) date) L 97/52 L 102/53 L unknown) (unknown) (no (unknown) (unknown) Blood Type (units (unk nown) date) unknown) (unknown) (no (unknown) (unknown) Blood Type (units (unk nown) date) unknown) (unknown) (no (unknown) (unknown) Blood Type A (units (u nknown) date) Negative unknown) (unknown) (no (unknown) (unknown) Calcium (units (unkno wn) date) unknown) (unknown) (no (unknown) (unknown) Calcium (units (unkno wn) date) unknown) (unknown) (no (unknown) (unknown) Calcium 8.4 (units (un known) date) unknown) (unknown) (no (unknown) (unknown) Carbon Dioxide (units (unknown) date) unknown) (unknown) (no (unknown) (unknown) Carbon Dioxide (units (unknown) date) unknown) (unknown) (no (unknown) (unknown) Carbon Dioxide 27 (units (unknown) date) unknown) (unknown) (no (unknown) (unknown) Chief complaint: (units (unknown) date) Dementia unknown) (unknown) (no (unknown) (unknown) Chloride (units (unkno wn) date) unknown) (unknown) (no (unknown) (unknown) Chloride (units (unkno wn) date) unknown) (unknown) (no (unknown) (unknown) Chloride 97 L (units ( unknown) date) unknown) (unknown) (no (unknown) (unknown) Coronary artery (units (unknown) date) disease unknown) (unknown) (no (unknown) (unknown) Creatinine (units (unk nown) date) unknown) (unknown) (no (unknown) (unknown) Creatinine (units (unk nown) date) unknown) (unknown) (no (unknown) (unknown) Creatinine 3.18 H (units (unknown) date) unknown) (unknown) (no (unknown) (unknown) Critical Care time: (unit s (unknown) date) unknown) (unknown) (no (unknown) (unknown) Crossmatch (units (unk nown) date) unknown) (unknown) (no (unknown) (unknown) Crossmatch (units (unk nown) date) unknown) (unknown) (no (unknown) (unknown) Crossmatch See (units (unknown) date) Detail unknown) (unknown) (no (unknown) (unknown) Currently his (units ( unknown) date) hemoglobin and unknown) hematocrit was improved to 7.9 in 24.5 (unknown) (no (unknown) (unknown) : 1945 (units (unknown) date) Acct:[id number] unknown) (unknown) (no (unknown) (unknown) Date Patient Seen: (units (unknown) date) 01/27/22 unknown) (unknown) (no (unknown) (unknown) Deep Vein (units (unkn own) date) Thrombosis/Pulmonary unknown) Embolism Present on Admission: No (unknown) (no (unknown) (unknown) Diabetes (units (unkno wn) date) unknown) (unknown) (no (unknown) (unknown) Dyslipidemia (units (u nknown) date) unknown) (unknown) (no (unknown) (unknown) Environment (units (un known) date) unknown) (unknown) (no (unknown) (unknown) Eos # (Auto) (units (u nknown) date) unknown) (unknown) (no (unknown) (unknown) Eos # (Auto) (units (u nknown) date) unknown) (unknown) (no (unknown) (unknown) Eos # (Auto) 200 (units (unknown) date) unknown) (unknown) (no (unknown) (unknown) Eos % (Auto) (units (u nknown) date) unknown) (unknown) (no (unknown) (unknown) Eos % (Auto) (units (u nknown) date) unknown) (unknown) (no (unknown) (unknown) Eos % (Auto) 2.8 (units (unknown) date) unknown) (unknown) (no (unknown) (unknown) Estimated GFR (units ( unknown) date) unknown) (unknown) (no (unknown) (unknown) Estimated GFR (units ( unknown) date) unknown) (unknown) (no (unknown) (unknown) Estimated GFR 19 L (units (unknown) date) unknown) (unknown) (no (unknown) (unknown) Exam (units (unkno wn) date) unknown) (unknown) (no (unknown) (unknown) Family + Social (units (unknown) date) History unknown) (unknown) (no (unknown) (unknown) Feels Safe in (units ( unknown) date) Current Yes unknown) (unknown) (no (unknown) (unknown) Globulin (units (unkno wn) date) unknown) (unknown) (no (unknown) (unknown) Globulin (units (unkno wn) date) unknown) (unknown) (no (unknown) (unknown) Globulin 3.5 (units (u nknown) date) unknown) (unknown) (no (unknown) (unknown) Glucose (units (unkno wn) date) unknown) (unknown) (no (unknown) (unknown) Glucose (units (unkno wn) date) unknown) (unknown) (no (unknown) (unknown) Glucose 130 H (units ( unknown) date) unknown) (unknown) (no (unknown) (unknown) Hct (units (unkno wn) date) unknown) (unknown) (no (unknown) (unknown) Hct 24.5 L (units (unk nown) date) unknown) (unknown) (no (unknown) (unknown) Hct 20.8 L* (units (un known) date) unknown) (unknown) (no (unknown) (unknown) He is afebrile, (units (unknown) date) blood pressure unknown) 108/46, heart rate 58, respiratory rate 12, (unknown) (no (unknown) (unknown) He was admitted at (units (unknown) date) [facility] on January unknown) through January 13 for elective heart (unknown) (no (unknown) (unknown) [facility] with decompensated (unknown) (no (unknown) (unknown) Hemoglobin A1c (units (unknown) date) unknown) (unknown) (no (unknown) (unknown) Hemoglobin A1c (units (unknown) date) unknown) (unknown) (no (unknown) (unknown) Hemoglobin A1c 6.5 H (uni ts (unknown) date) unknown) (unknown) (no (unknown) (unknown) Hgb (units (unkno wn) date) unknown) (unknown) (no (unknown) (unknown) Hgb 7.9 L (units (unkn own) date) unknown) (unknown) (no (unknown) (unknown) Hgb 6.7 L* (units (unk nown) date) unknown) (unknown) (no (unknown) (unknown) History (units (unkno wn) date) unknown) (unknown) (no (unknown) (unknown) History of Present (units (unknown) date) Illness unknown) (unknown) (no (unknown) (unknown) Home Medications and (uni ts (unknown) date) Allergies unknown) (unknown) (no (unknown) (unknown) Hx of (units (unkno wn) date) cholecystectomy unknown) (unknown) (no (unknown) (unknown) Hypertension (units (u nknown) date) unknown) (unknown) (no (unknown) (unknown) I spent a total of (units (unknown) date) [] minutes of unknown) critical care time on this patient's care (unknown) (no (unknown) (unknown) Labs (units (unkno wn) date) unknown) (unknown) (no (unknown) (unknown) Labs: (units (unkno wn) date) unknown) (unknown) (no (unknown) (unknown) Lactate (units (unkno wn) date) unknown) (unknown) (no (unknown) (unknown) Lactate (units (unkno wn) date) unknown) (unknown) (no (unknown) (unknown) Lactate 1.3 (units (un known) date) unknown) (unknown) (no (unknown) (unknown) Lipase (units (unkno wn) date) unknown) (unknown) (no (unknown) (unknown) Lipase (units (unkno wn) date) unknown) (unknown) (no (unknown) (unknown) Lipase 135 (units (unk nown) date) unknown) (unknown) (no (unknown) (unknown) Lymph # (Auto) (units (unknown) date) unknown) (unknown) (no (unknown) (unknown) Lymph # (Auto) (units (unknown) date) unknown) (unknown) (no (unknown) (unknown) Lymph # (Auto) 800 L (uni ts (unknown) date) unknown) (unknown) (no (unknown) (unknown) Lymph % (Auto) (units (unknown) date) unknown) (unknown) (no (unknown) (unknown) Lymph % (Auto) (units (unknown) date) unknown) (unknown) (no (unknown) (unknown) Lymph % (Auto) 11.4 (unit s (unknown) date) L unknown) (unknown) (no (unknown) (unknown) MCH (units (unkno wn) date) unknown) (unknown) (no (unknown) (unknown) MCH (units (unkno wn) date) unknown) (unknown) (no (unknown) (unknown) MCH 24.6 L (units (unk nown) date) unknown) (unknown) (no (unknown) (unknown) MCHC (units (unkno wn) date) unknown) (unknown) (no (unknown) (unknown) MCHC (units (unkno wn) date) unknown) (unknown) (no (unknown) (unknown) MCHC 32.4 (units (unkn own) date) unknown) (unknown) (no (unknown) (unknown) MCV (units (unkno wn) date) unknown) (unknown) (no (unknown) (unknown) MCV (units (unkno wn) date) unknown) (unknown) (no (unknown) (unknown) MCV 75.7 L (units (unk nown) date) unknown) (unknown) (no (unknown) (unknown) Magnesium (units (unkn own) date) unknown) (unknown) (no (unknown) (unknown) Magnesium (units (unkn own) date) unknown) (unknown) (no (unknown) (unknown) Magnesium 1.7 (units ( unknown) date) unknown) (unknown) (no (unknown) (unknown) Medical History (units (unknown) date) (Updated 01/27/22 @ unknown) 00:57 by MEKA Mendoza) (unknown) (no (unknown) (unknown) Meds (units (unkno wn) date) unknown) (unknown) (no (unknown) (unknown) Metformin (units (unkn own) date) Hydrochloride 1,275 unknown) mg PO BID ##0 07/08/12 History (unknown) (no (unknown) (unknown) Lajas # (Auto) (units ( unknown) date) unknown) (unknown) (no (unknown) (unknown) Lajas # (Auto) (units ( unknown) date) unknown) (unknown) (no (unknown) (unknown) Lajas # (Auto) 700 (units (unknown) date) unknown) (unknown) (no (unknown) (unknown) Lajas % (Auto) (units ( unknown) date) unknown) (unknown) (no (unknown) (unknown) Lajas % (Auto) (units ( unknown) date) unknown) (unknown) (no (unknown) (unknown) Lajas % (Auto) 9.8 (units (unknown) date) unknown) (unknown) (no (unknown) (unknown) NSAIDS (units (unkno wn) date) (Non-Steroidal unknown) AdvReac Severe kidney Verified 11/14/19 20:28 (unknown) (no (unknown) (unknown) Narrative: (units (unk nown) date) unknown) (unknown) (no (unknown) (unknown) Neut # (Auto) (units ( unknown) date) unknown) (unknown) (no (unknown) (unknown) Neut # (Auto) (units ( unknown) date) unknown) (unknown) (no (unknown) (unknown) Neut # (Auto) 5400 (units (unknown) date) unknown) (unknown) (no (unknown) (unknown) Neut % (Auto) (units ( unknown) date) unknown) (unknown) (no (unknown) (unknown) Neut % (Auto) (units ( unknown) date) unknown) (unknown) (no (unknown) (unknown) Neut % (Auto) 75.0 (units (unknown) date) unknown) (unknown) (no (unknown) (unknown) Objective (units (unkn own) date) unknown) (unknown) (no (unknown) (unknown) Oxygen Delivery (units (unknown) date) Method unknown) (unknown) (no (unknown) (unknown) Oxygen Delivery (units (unknown) date) Method Room Air unknown) (unknown) (no (unknown) (unknown) Oxygen Delivery (units (unknown) date) Method unknown) (unknown) (no (unknown) (unknown) Oxygen Delivery (units (unknown) date) Method Room Air unknown) (unknown) (no (unknown) (unknown) Oxygen Flow Rate (units (unknown) date) unknown) (unknown) (no (unknown) (unknown) Oxygen Flow Rate 0 (units (unknown) date) unknown) (unknown) (no (unknown) (unknown) Oxygen Flow Rate 0 (units (unknown) date) unknown) (unknown) (no (unknown) (unknown) PCR is negative, (units (unknown) date) blood type is A unknown) negative. 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 (unknown) (no (unknown) (unknown) Patient was (units (un known) date) discharged from [facility] unknown) Kath for acute congestive heart failure on (unknown) (no (unknown) (unknown) Patient, staying (units (unknown) date) with his son and unknown) daughter in-law called EMS due to the patient (unknown) (no (unknown) (unknown) Patient: (units (unkno wn) date) Osmel Baxter MR#: unknown) [id number] (unknown) (no (unknown) (unknown) Plt Count (units (unkn own) date) unknown) (unknown) (no (unknown) (unknown) Plt Count (units (unkn own) date) unknown) (unknown) (no (unknown) (unknown) Plt Count 206 (units ( unknown) date) unknown) (unknown) (no (unknown) (unknown) Potassium (units (unkn own) date) unknown) (unknown) (no (unknown) (unknown) Potassium (units (unkn own) date) unknown) (unknown) (no (unknown) (unknown) Potassium 4.3 (units ( unknown) date) unknown) (unknown) (no (unknown) (unknown) Prior Living (units (u nknown) date) Arrangements House unknown) (unknown) (no (unknown) (unknown) Procalcitonin (units ( unknown) date) unknown) (unknown) (no (unknown) (unknown) Procalcitonin (units ( unknown) date) unknown) (unknown) (no (unknown) (unknown) Procalcitonin 0.50 (units (unknown) date) unknown) (unknown) (no (unknown) (unknown) Provider: Ese Holland (uni ts (unknown) date) ADVERTISING [employer]ICIT[employer] unknown) (unknown) (no (unknown) (unknown) Pulse Oximetry (units (unknown) date) unknown) (unknown) (no (unknown) (unknown) Pulse Oximetry 98 (units (unknown) date) unknown) (unknown) (no (unknown) (unknown) Pulse Oximetry 99 (units (unknown) date) unknown) (unknown) (no (unknown) (unknown) Pulse Oximetry 100 (units (unknown) date) unknown) (unknown) (no (unknown) (unknown) Pulse Oximetry 89 L (unit s (unknown) date) 98 unknown) (unknown) (no (unknown) (unknown) Pulse Oximetry 97 (units (unknown) date) unknown) (unknown) (no (unknown) (unknown) Pulse Oximetry 97 99 (uni ts (unknown) date) unknown) (unknown) (no (unknown) (unknown) Pulse Oximetry 100 (units (unknown) date) unknown) (unknown) (no (unknown) (unknown) Pulse Oximetry 100 (units (unknown) date) 100 unknown) (unknown) (no (unknown) (unknown) Pulse Oximetry 100 (units (unknown) date) 99 unknown) (unknown) (no (unknown) (unknown) Pulse Oximetry 100 (units (unknown) date) 100 unknown) (unknown) (no (unknown) (unknown) Pulse Oximetry 97 98 (uni ts (unknown) date) unknown) (unknown) (no (unknown) (unknown) Pulse Oximetry 99 (units (unknown) date) unknown) (unknown) (no (unknown) (unknown) Pulse Rate 60 (units ( unknown) date) unknown) (unknown) (no (unknown) (unknown) Pulse Rate 61 (units ( unknown) date) unknown) (unknown) (no (unknown) (unknown) Pulse Rate 61 62 (units (unknown) date) unknown) (unknown) (no (unknown) (unknown) Pulse Rate 63 (units ( unknown) date) unknown) (unknown) (no (unknown) (unknown) Pulse Rate 64 64 (units (unknown) date) unknown) (unknown) (no (unknown) (unknown) Pulse Rate 58 L (units (unknown) date) unknown) (unknown) (no (unknown) (unknown) Pulse Rate 61 61 (units (unknown) date) unknown) (unknown) (no (unknown) (unknown) Pulse Rate 62 62 (units (unknown) date) unknown) (unknown) (no (unknown) (unknown) Pulse Rate 62 61 (units (unknown) date) unknown) (unknown) (no (unknown) (unknown) Pulse Rate 63 63 62 (unit s (unknown) date) unknown) (unknown) (no (unknown) (unknown) Pulse Rate 64 (units ( unknown) date) unknown) (unknown) (no (unknown) (unknown) Pulse Rate 64 63 (units (unknown) date) unknown) (unknown) (no (unknown) (unknown) Pulse Rate 64 64 (units (unknown) date) unknown) (unknown) (no (unknown) (unknown) Pulse Rate 64 62 62 (unit s (unknown) date) unknown) (unknown) (no (unknown) (unknown) Pulse Rate 64 64 65 (unit s (unknown) date) unknown) (unknown) (no (unknown) (unknown) Pulse Rate 65 65 64 (unit s (unknown) date) unknown) (unknown) (no (unknown) (unknown) Quality (units (unkno wn) date) unknown) (unknown) (no (unknown) (unknown) RBC (units (unkno wn) date) unknown) (unknown) (no (unknown) (unknown) RBC (units (unkno wn) date) unknown) (unknown) (no (unknown) (unknown) RBC 2.75 L (units (unk nown) date) unknown) (unknown) (no (unknown) (unknown) RBC Morphology (units (unknown) date) unknown) (unknown) (no (unknown) (unknown) RBC Morphology (units (unknown) date) unknown) (unknown) (no (unknown) (unknown) RBC Morphology Not (units (unknown) date) Reportable unknown) (unknown) (no (unknown) (unknown) RDW (units (unkno wn) date) unknown) (unknown) (no (unknown) (unknown) RDW (units (unkno wn) date) unknown) (unknown) (no (unknown) (unknown) RDW 24.5 H (units (unk nown) date) unknown) (unknown) (no (unknown) (unknown) Respiratory Rate 21 (unit s (unknown) date) unknown) (unknown) (no (unknown) (unknown) Respiratory Rate 15 (unit s (unknown) date) unknown) (unknown) (no (unknown) (unknown) Respiratory Rate 19 (unit s (unknown) date) unknown) (unknown) (no (unknown) (unknown) Respiratory Rate 20 (unit s (unknown) date) 21 unknown) (unknown) (no (unknown) (unknown) Respiratory Rate 20 (unit s (unknown) date) 26 H unknown) (unknown) (no (unknown) (unknown) Respiratory Rate 21 (unit s (unknown) date) unknown) (unknown) (no (unknown) (unknown) Respiratory Rate 12 (unit s (unknown) date) unknown) (unknown) (no (unknown) (unknown) Respiratory Rate 14 (unit s (unknown) date) 13 unknown) (unknown) (no (unknown) (unknown) Respiratory Rate 17 (unit s (unknown) date) unknown) (unknown) (no (unknown) (unknown) Respiratory Rate 17 (unit s (unknown) date) 19 unknown) (unknown) (no (unknown) (unknown) Respiratory Rate 18 (unit s (unknown) date) 14 21 unknown) (unknown) (no (unknown) (unknown) Respiratory Rate 18 (unit s (unknown) date) 15 18 unknown) (unknown) (no (unknown) (unknown) Respiratory Rate 19 (unit s (unknown) date) 16 unknown) (unknown) (no (unknown) (unknown) Respiratory Rate 20 (unit s (unknown) date) 24 unknown) (unknown) (no (unknown) (unknown) Respiratory Rate 20 (unit s (unknown) date) 12 18 unknown) (unknown) (no (unknown) (unknown) Respiratory Rate 21 (unit s (unknown) date) 17 17 unknown) (unknown) (no (unknown) (unknown) Respiratory Rate 22 (unit s (unknown) date) 18 unknown) (unknown) (no (unknown) (unknown) Result Diagrams: (units (unknown) date) unknown) (unknown) (no (unknown) (unknown) Review of outside (units (unknown) date) medical records. On unknown) January 24 the patient presented to the (unknown) (no (unknown) (unknown) S/P CABG x 4 (units (u nknown) date) unknown) (unknown) (no (unknown) (unknown) SARS-CoV-2 (PCR) (units (unknown) date) unknown) (unknown) (no (unknown) (unknown) SARS-CoV-2 (PCR) (units (unknown) date) Negative unknown) (unknown) (no (unknown) (unknown) Safety + Behavioral: (uni ts (unknown) date) unknown) (unknown) (no (unknown) (unknown) Signed By: (units (unk nown) date) unknown) (unknown) (no (unknown) (unknown) Sleep apnea (units (un known) date) unknown) (unknown) (no (unknown) (unknown) Smoking Status (units (unknown) date) Former smoker unknown) (unknown) (no (unknown) (unknown) Social History: (units (unknown) date) unknown) (unknown) (no (unknown) (unknown) Sodium (units (unkno wn) date) unknown) (unknown) (no (unknown) (unknown) Sodium (units (unkno wn) date) unknown) (unknown) (no (unknown) (unknown) Sodium 132 L (units (u nknown) date) unknown) (unknown) (no (unknown) (unknown) Substance Use Type (units (unknown) date) does not use unknown) (unknown) (no (unknown) (unknown) Surgical History (units (unknown) date) (Reviewed 11/15/19 @ unknown) 04:28 by MEKA Garcia) (unknown) (no (unknown) (unknown) Temperature (units (un known) date) unknown) (unknown) (no (unknown) (unknown) Temperature 96.3 F L (uni ts (unknown) date) 96.8 F L unknown) (unknown) (no (unknown) (unknown) Temperature 96.7 F L (uni ts (unknown) date) 96.5 F L unknown) (unknown) (no (unknown) (unknown) Temperature 97.7 F (units (unknown) date) 96.8 F L unknown) (unknown) (no (unknown) (unknown) Temperature 98.1 F (units (unknown) date) unknown) (unknown) (no (unknown) (unknown) Temperature 98.6 F (units (unknown) date) 96.8 F L 96.7 F L unknown) (unknown) (no (unknown) (unknown) Threatened By a (units (unknown) date) Person unknown) (unknown) (no (unknown) (unknown) Time Patient Seen: (units (unknown) date) 02:35 unknown) (unknown) (no (unknown) (unknown) Time Spent With (units (unknown) date) Patient unknown) (unknown) (no (unknown) (unknown) Tobacco + Substance (unit s (unknown) date) use: unknown) (unknown) (no (unknown) (unknown) Total Bilirubin (units (unknown) date) unknown) (unknown) (no (unknown) (unknown) Total Bilirubin (units (unknown) date) unknown) (unknown) (no (unknown) (unknown) Total Bilirubin 1.5 (unit s (unknown) date) H unknown) (unknown) (no (unknown) (unknown) Total Protein (units ( unknown) date) unknown) (unknown) (no (unknown) (unknown) Total Protein (units ( unknown) date) unknown) (unknown) (no (unknown) (unknown) Total Protein 7.1 (units (unknown) date) unknown) (unknown) (no (unknown) (unknown) U-100 Insulin) (units (unknown) date) unknown) (unknown) (no (unknown) (unknown) VITAMIN D (Vitamin (units (unknown) date) D3) ##0 07/08/12 unknown) History (unknown) (no (unknown) (unknown) VTE (units (unkno wn) date) unknown) (unknown) (no (unknown) (unknown) Vital Signs (units (un known) date) unknown) (unknown) (no (unknown) (unknown) WBC (units (unkno wn) date) unknown) (unknown) (no (unknown) (unknown) WBC (units (unkno wn) date) unknown) (unknown) (no (unknown) (unknown) WBC 7.1 (units (unkno wn) date) unknown) (unknown) (no (unknown) (unknown) When he presented to (unit s (unknown) date) the this emergency unknown) department he was found to be profoundly (unknown) (no (unknown) (unknown) [Embedded Image Not (unit s (unknown) date) Available] unknown) (unknown) (no (unknown) (unknown) addition to his (units (unknown) date) normal prescribed unknown) dose of 20 mg p.o. per the emergency provider (unknown) (no (unknown) (unknown) administered 2 units (uni ts (unknown) date) PRBC. It was unknown) determined that patient is likely bled into (unknown) (no (unknown) (unknown) alcohol intake (units (unknown) date) frequency unknown) holiday/special occasion (unknown) (no (unknown) (unknown) alk phos 170 proBNP (unit s (unknown) date) 7170 procalcitonin is unknown) negative UA is positive for wbc's (unknown) (no (unknown) (unknown) allegedly (units (unkn own) date) nonresponsive likely unknown) to the son and paramedics which precipitated (unknown) (no (unknown) (unknown) allopurinol 100 mg (units (unknown) date) tablet 100 mg PO BID unknown) 11/15/19 11/15/19 History (unknown) (no (unknown) (unknown) anemic with a (units ( unknown) date) hemoglobin and unknown) hematocrit of 6.7 and 20.8 respectively and was (unknown) (no (unknown) (unknown) aspirin 81 mg (units ( unknown) date) chewable tablet 81 mg unknown) PO QDAY ##0 07/08/12 11/15/19 History (unknown) (no (unknown) (unknown) atorvastatin 20 mg (units (unknown) date) tablet 20 mg PO DAILY unknown) 11/15/19 11/15/19 History (unknown) (no (unknown) (unknown) blood pressure (units (unknown) date) transfusion the unknown) patient was administered IV Lasix 80 mg in (unknown) (no (unknown) (unknown) bringing him here. (units (unknown) date) Patient has a history unknown) of heart failure with reduced ejection (unknown) (no (unknown) (unknown) brought him here, (units (unknown) date) thought he was unknown) readmitted to [facility]. He does not (unknown) (no (unknown) (unknown) carbidopa 25 (units (u nknown) date) mg-levodopa 100 mg 1 unknown) tab PO BEDTIME RLS 11/15/19 11/15/19 History (unknown) (no (unknown) (unknown) carvedilol 12.5 mg (units (unknown) date) tablet 12.5 mg PO BID unknown) 11/15/19 11/15/19 History (unknown) (no (unknown) (unknown) catheterization and (unit s (unknown) date) had PCI of the distal unknown) right coronary artery and also found (unknown) (no (unknown) (unknown) cyclobenzaprine 10 (units (unknown) date) mg tablet 10 mg PO unknown) TID 11/15/19 11/15/19 History (unknown) (no (unknown) (unknown) declining per the ED (uni ts (unknown) date) triage note. Patient unknown) does not remember the details of what (unknown) (no (unknown) (unknown) diabetes seems to be (uni ts (unknown) date) under pretty good unknown) control in thought his A1c was less than (unknown) (no (unknown) (unknown) diabetes.? (units (unk nown) date) unknown) (unknown) (no (unknown) (unknown) discontinued (units (u nknown) date) reportedly no fevers unknown) chills new new injury or fall.? He was seen (unknown) (no (unknown) (unknown) echocardiogram and (units (unknown) date) cardioversion for unknown) atrial fibrillation.? Was discharged home (unknown) (no (unknown) (unknown) emergency department (uni ts (unknown) date) after injuring his unknown) right knee seemingly occurred about (unknown) (no (unknown) (unknown) ferrous gluconate 324 (uni ts (unknown) date) mg, glargine insulin, unknown) metformin, omeprazole, Mirapex 0.125 (unknown) (no (unknown) (unknown) ferrous sulfate (units (unknown) date) Allergy Muscle Pain unknown) Verified 11/14/19 20:28 (unknown) (no (unknown) (unknown) for sepsis and was (units (unknown) date) given fluid unknown) resuscitation in addition to IV Zosyn and (unknown) (no (unknown) (unknown) fraction and has had (uni ts (unknown) date) a recent and unknown) complicated cardiac history. He states that (unknown) (no (unknown) (unknown) gabapentin Allergy (units (unknown) date) Confusion Verified unknown) 11/14/19 20:28 (unknown) (no (unknown) (unknown) has a piece of (units (unknown) date) fiberglass casting unknown) material extending from the medial malleolus (unknown) (no (unknown) (unknown) have actually lodged (unit s (unknown) date) into his medial calf unknown) with some skin peeling surrounding the (unknown) (no (unknown) (unknown) he had a CT scan (units (unknown) date) that showed hematoma unknown) but no fractures his anticoagulation was (unknown) (no (unknown) (unknown) heart failure. (units (unknown) date) unknown) (unknown) (no (unknown) (unknown) hematoma but no (units (unknown) date) fracture. They unknown) applied a posterior splint to immobilize his (unknown) (no (unknown) (unknown) hematoma. He also (units (unknown) date) had a number of unknown) dressings on his right arm. He states that (unknown) (no (unknown) (unknown) him as alert and (units (unknown) date) oriented x3 no acute unknown) distress.? ER note says that a fiberglass (unknown) (no (unknown) (unknown) household members (units (unknown) date) significant other unknown) (unknown) (no (unknown) (unknown) hydrochlorothiazide (unit s (unknown) date) 25 mg tablet 50 mg PO unknown) QDAY ##0 07/08/12 History (unknown) (no (unknown) (unknown) injector (Ozempic) (units (unknown) date) unknown) (unknown) (no (unknown) (unknown) injuring his left (units (unknown) date) knee that had unknown) occurred on or about January 20.? On the (unknown) (no (unknown) (unknown) insulin glargine 100 (uni ts (unknown) date) unit/mL 100 unit SQ unknown) DAILY ##0 07/08/12 11/15/19 History (unknown) (no (unknown) (unknown) intramuscular oil (units (unknown) date) unknown) (unknown) (no (unknown) (unknown) irregular medial soft (uni ts (unknown) date) tissue masses without unknown) extension into the underlying joint, (unknown) (no (unknown) (unknown) left leg and was to (unit s (unknown) date) have removed it in unknown) 2-3 days. He was discharged with 14 (unknown) (no (unknown) (unknown) lisinopril 20 mg (units (unknown) date) tablet 10 mg PO QDAY unknown) ##0 07/08/12 11/15/19 History (unknown) (no (unknown) (unknown) long-leg posterior (units (unknown) date) splint was applied on unknown) arrival in the emergency department he (unknown) (no (unknown) (unknown) mg nightly and as (units (unknown) date) needed nitroglycerin. unknown) (unknown) (no (unknown) (unknown) mg, allopurinol, (units (unknown) date) amiodarone 200 mg, unknown) atorvastatin 40 mg, duloxetine 30 mg, (unknown) (no (unknown) (unknown) mg/1.5 mL) (units (unk nown) date) subcutaneous pen unknown) (unknown) (no (unknown) (unknown) omeprazole 40 mg (units (unknown) date) capsule,delayed 40 mg unknown) PO DAILY ##0 07/08/12 11/15/19 History (unknown) (no (unknown) (unknown) oriented and was (units (unknown) date) requested for unknown) admission to the medical floor. (unknown) (no (unknown) (unknown) oxycodone 10 mg (units (unknown) date) tablet,crush 10 mg PO unknown) BID 11/15/19 11/15/19 History (unknown) (no (unknown) (unknown) oxycodone. When he (units (unknown) date) presented to this unknown) emergency room the splint was found to (unknown) (no (unknown) (unknown) oxygen saturation of (uni ts (unknown) date) 100% on room air he unknown) weighs 94 kg with a BMI of 33.4. (unknown) (no (unknown) (unknown) positive to having (units (unknown) date) numbing of his hands unknown) and feet. (unknown) (no (unknown) (unknown) presumably hematoma (unit s (unknown) date) and likely the source unknown) of the acute blood loss. After the (unknown) (no (unknown) (unknown) release (units (unkno wn) date) unknown) (unknown) (no (unknown) (unknown) remove the splint in (uni ts (unknown) date) 2-3 days. unknown) (unknown) (no (unknown) (unknown) resistant,extended (units (unknown) date) release 12 hr unknown) (unknown) (no (unknown) (unknown) respectively, (units ( unknown) date) platelet count is unknown) 206, sodium 132 chloride 97 BUN 61 creatinine (unknown) (no (unknown) (unknown) rivaroxaban 20 mg (units (unknown) date) tablet (Xarelto) 20 unknown) mg PO DAILY 11/14/19 11/14/19 History (unknown) (no (unknown) (unknown) semaglutide 0.25 mg (unit s (unknown) date) or 0.5 mg (2 0.25 mg unknown) SUBCUT QWEEK 11/15/19 11/15/19 History (unknown) (no (unknown) (unknown) sildenafil 100 mg (units (unknown) date) tablet 100 mg PO unknown) DAILY PRN Sexual Activity 11/15/19 11/15/19 (unknown) (no (unknown) (unknown) spironolactone 25 (units (unknown) date) mg, torsemide 20 mg, unknown) Jardiance, lisinopril 2.5 mg, Xarelto 15 (unknown) (no (unknown) (unknown) stated that he does (unit s (unknown) date) remember falling and unknown) he thinks he passed out. He was (unknown) (no (unknown) (unknown) subcutaneous (units (u nknown) date) solution (Lantus unknown) (unknown) (no (unknown) (unknown) superiorly and (units (unknown) date) inferiorly.? Was unknown) discharged with pain control instructions to (unknown) (no (unknown) (unknown) tablet (units (unkno wn) date) unknown) (unknown) (no (unknown) (unknown) testosterone (units (u nknown) date) cypionate 200 mg/mL unknown) ##0 07/08/12 History (unknown) (no (unknown) (unknown) that but does state (unit s (unknown) date) he short of breath unknown) denies chest pain. He states that his (unknown) (no (unknown) (unknown) the following day (units (unknown) date) with complaints of unknown) increasing pain.? Physical exam describes (unknown) (no (unknown) (unknown) the large hematoma. (unit s (unknown) date) He was very unknown) hypotensive when he came in but was concerning (unknown) (no (unknown) (unknown) the patient gets (units (unknown) date) blood pressure unknown) improved and he became a lot more alert and (unknown) (no (unknown) (unknown) these were all due (units (unknown) date) to his falls. unknown) (unknown) (no (unknown) (unknown) to have heart (units ( unknown) date) failure, paroxysmal unknown) atrial fibrillation, coronary disease, (unknown) (no (unknown) (unknown) to his son's house (units (unknown) date) on aspirin, unknown) clopidogrel, metoprolol succinate 50 mg, (unknown) (no (unknown) (unknown) to the distal knee, (unit s (unknown) date) not crossing any unknown) joint and causing significant irritation (unknown) (no (unknown) (unknown) today; this time is (unit s (unknown) date) exclusive of unknown) procedural time. (unknown) (no (unknown) (unknown) understand why he (units (unknown) date) has here an anti unknown) Cordis but has no problems being here. He (unknown) (no (unknown) (unknown) underwent PCI of the (uni ts (unknown) date) distal right coronary unknown) artery, had a transesophageal (unknown) (no (unknown) (unknown) urine bacteria and (units (unknown) date) apparently yeast and unknown) meets criteria for culture. COVID-19 (unknown) (no (unknown) (unknown) vancomycin. He also (unit s (unknown) date) presented with an unknown) acute kidney injury with a creatinine of (unknown) (no (unknown) (unknown) ventricular ejection (uni ts (unknown) date) fraction at 15% with unknown) volume overload and tachycardia.? He (unknown) (no (unknown) (unknown) when he fell he felt (uni ts (unknown) date) lightheaded and then unknown) does not remember anything out after (unknown) (no (unknown) (unknown) zolpidem [From (units (unknown) date) Ambien] Allergy unknown) Confusion Verified 11/14/19 20:28 Result panel 39 (unknown) (no (unknown) (unknown) (no value) (units (unk nown) date) unknown) (unknown) (no (unknown) (unknown) (no value) (units (unk nown) date) unknown) (unknown) (no (unknown) (unknown) Date of Service: (units (unknown) date) 01/27/22 unknown) (unknown) (no (unknown) (unknown) (no value) (units (unk nown) date) unknown) (unknown) (no (unknown) (unknown) - (units (unkno wn) date) unknown) (unknown) (no (unknown) (unknown) 01/26/22 19:40 (units (unknown) date) unknown) (unknown) (no (unknown) (unknown) 01/27/22 01:37 (units (unknown) date) unknown) (unknown) (no (unknown) (unknown) Allergies (units (unkn own) date) unknown) (unknown) (no (unknown) (unknown) History + Physical (units (unknown) date) Report unknown) (unknown) (no (unknown) (unknown) Home Medications (units (unknown) date) unknown) (unknown) (no (unknown) (unknown) [facility] [id number] (uni ts (unknown) date) [address] unknown) [place] [address] (unknown) (no (unknown) (unknown) Laboratory Results - (uni ts (unknown) date) last 24 hr unknown) (unknown) (no (unknown) (unknown) (no value) (units (unk nown) date) unknown) (unknown) (no (unknown) (unknown) 01/26/22 01/26/22 (units (unknown) date) 01/26/22 unknown) (unknown) (no (unknown) (unknown) 01/26/22 01/27/22 (units (unknown) date) unknown) (unknown) (no (unknown) (unknown) 19:40 19:40 19:40 (units (unknown) date) unknown) (unknown) (no (unknown) (unknown) 19:40 19:40 20:21 (units (unknown) date) unknown) (unknown) (no (unknown) (unknown) 20:47 01:37 (units (un known) date) unknown) (unknown) (no (unknown) (unknown) from 6.7-7.9 and (units (unknown) date) 20.8-24.5 unknown) respectively (unknown) (no (unknown) (unknown) initiated on IV (units (unknown) date) ceftriaxone unknown) (unknown) (no (unknown) (unknown) 01/26/22 (units (unkno wn) date) unknown) (unknown) (no (unknown) (unknown) 01/27/22 (units (unkno wn) date) unknown) (unknown) (no (unknown) (unknown) Medication (units (unk nown) date) Instructions Recorded unknown) Confirmed Type (unknown) (no (unknown) (unknown) acute kidney injury, (uni ts (unknown) date) and acute unknown) exacerbation of heart failure with reduced ej (unknown) (no (unknown) (unknown) (Depo-Testosterone) (unit s (unknown) date) unknown) (unknown) (no (unknown) (unknown) (GLUCOPHAGE) (units (u nknown) date) unknown) (unknown) (no (unknown) (unknown) (past 8 hours): (units (unknown) date) unknown) (unknown) (no (unknown) (unknown) * Closely monitor (units (unknown) date) renal function and unknown) hold nephrotoxic medications (unknown) (no (unknown) (unknown) * Continue (units (unk nown) date) carvedilol unknown) (unknown) (no (unknown) (unknown) * Continue home dose (uni ts (unknown) date) of atorvastatin 40 mg unknown) p.o. at bedtime (unknown) (no (unknown) (unknown) * He is currently (units (unknown) date) saline lock due to unknown) volume overload (unknown) (no (unknown) (unknown) * He received IV (units (unknown) date) Lasix 80 mg in unknown) addition to his home oral dose of 20 mg (unknown) (no (unknown) (unknown) * Orthopedic surgery (uni ts (unknown) date) has been consulted unknown) and will see the patient in the morning (unknown) (no (unknown) (unknown) * Patient is (units (u nknown) date) currently recovering unknown) from biventricular heart catheterization (unknown) (no (unknown) (unknown) * Patient received 2 (uni ts (unknown) date) units PRBC in the unknown) emergency department increasing his H+H (unknown) (no (unknown) (unknown) * Patient was fluid (unit s (unknown) date) resuscitated in the unknown) emergency department 2 L (unknown) (no (unknown) (unknown) * Patient was (units ( unknown) date) initially unknown) administered IV vancomycin and Zosyn but will be (unknown) (no (unknown) (unknown) * Patient's proBNP (units (unknown) date) is almost 7200 unknown) (unknown) (no (unknown) (unknown) * Patient's (units (un known) date) rivaroxaban, aspirin unknown) and club epidural are being held (unknown) (no (unknown) (unknown) * Recheck CBC in the (uni ts (unknown) date) morning unknown) (unknown) (no (unknown) (unknown) * Will need to (units (unknown) date) 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 to ascertain 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 guidance (unknown) (no (unknown) (unknown) 00:00 (units (unkno wn) date) unknown) (unknown) (no (unknown) (unknown) 00:00 01/27/22 (units (unknown) date) unknown) (unknown) (no (unknown) (unknown) 00:15 01/27/22 (units (unknown) date) unknown) (unknown) (no (unknown) (unknown) 00:30 (units (unkno wn) date) unknown) (unknown) (no (unknown) (unknown) 00:30 01/27/22 (units (unknown) date) unknown) (unknown) (no (unknown) (unknown) 00:45 (units (unkno wn) date) unknown) (unknown) (no (unknown) (unknown) 00:45 01/27/22 (units (unknown) date) unknown) (unknown) (no (unknown) (unknown) 01:00 01/27/22 (units (unknown) date) unknown) (unknown) (no (unknown) (unknown) 01:01 (units (unkno wn) date) unknown) (unknown) (no (unknown) (unknown) 01:01 01/27/22 (units (unknown) date) unknown) (unknown) (no (unknown) (unknown) 01:35 (units (unkno wn) date) unknown) (unknown) (no (unknown) (unknown) 19:44 01/26/22 (units (unknown) date) unknown) (unknown) (no (unknown) (unknown) 2.5 mg, Xarelto 15 (units (unknown) date) mg, allopurinol, unknown) amiodarone 200 mg, atorvastatin 40 mg, (unknown) (no (unknown) (unknown) 20:34 01/26/22 (units (unknown) date) unknown) (unknown) (no (unknown) (unknown) 20:41 (units (unkno wn) date) unknown) (unknown) (no (unknown) (unknown) 21:00 01/26/22 (units (unknown) date) unknown) (unknown) (no (unknown) (unknown) 21:25 (units (unkno wn) date) unknown) (unknown) (no (unknown) (unknown) 21:25 01/26/22 (units (unknown) date) unknown) (unknown) (no (unknown) (unknown) 21:30 (units (unkno wn) date) unknown) (unknown) (no (unknown) (unknown) 21:30 01/26/22 (units (unknown) date) unknown) (unknown) (no (unknown) (unknown) 21:45 (units (unkno wn) date) unknown) (unknown) (no (unknown) (unknown) 21:45 01/26/22 (units (unknown) date) unknown) (unknown) (no (unknown) (unknown) 22:00 01/26/22 (units (unknown) date) unknown) (unknown) (no (unknown) (unknown) 22:15 (units (unkno wn) date) unknown) (unknown) (no (unknown) (unknown) 22:15 01/26/22 (units (unknown) date) unknown) (unknown) (no (unknown) (unknown) 22:30 (units (unkno wn) date) unknown) (unknown) (no (unknown) (unknown) 22:30 01/26/22 (units (unknown) date) unknown) (unknown) (no (unknown) (unknown) 22:35 01/26/22 (units (unknown) date) unknown) (unknown) (no (unknown) (unknown) 22:36 01/26/22 (units (unknown) date) unknown) (unknown) (no (unknown) (unknown) 22:45 (units (unkno wn) date) unknown) (unknown) (no (unknown) (unknown) 22:45 01/26/22 (units (unknown) date) unknown) (unknown) (no (unknown) (unknown) 22:50 (units (unkno wn) date) unknown) (unknown) (no (unknown) (unknown) 22:51 01/26/22 (units (unknown) date) unknown) (unknown) (no (unknown) (unknown) 23:00 01/26/22 (units (unknown) date) unknown) (unknown) (no (unknown) (unknown) 23:01 (units (unkno wn) date) unknown) (unknown) (no (unknown) (unknown) 23:01 01/26/22 (units (unknown) date) unknown) (unknown) (no (unknown) (unknown) 23:04 01/26/22 (units (unknown) date) unknown) (unknown) (no (unknown) (unknown) 23:07 (units (unkno wn) date) unknown) (unknown) (no (unknown) (unknown) 23:15 (units (unkno wn) date) unknown) (unknown) (no (unknown) (unknown) 23:15 01/26/22 (units (unknown) date) unknown) (unknown) (no (unknown) (unknown) 23:30 01/26/22 (units (unknown) date) unknown) (unknown) (no (unknown) (unknown) 23:45 (units (unkno wn) date) unknown) (unknown) (no (unknown) (unknown) 23:45 01/27/22 (units (unknown) date) unknown) (unknown) (no (unknown) (unknown) 3.18 up from 1.63 in (unit s (unknown) date) January. They did a unknown) repeat of the CT which reported a large (unknown) (no (unknown) (unknown) 3.18 with an EGFR of (uni ts (unknown) date) 19 glucose 130 unknown) hemoglobin A1c is 6.5 total bilirubin 1.5 (unknown) (no (unknown) (unknown) [id number] (units (unkno wn) date) unknown) (unknown) (no (unknown) (unknown) ALT (units (unkno wn) date) unknown) (unknown) (no (unknown) (unknown) ALT (units (unkno wn) date) unknown) (unknown) (no (unknown) (unknown) ALT 27 (units (unkno wn) date) unknown) (unknown) (no (unknown) (unknown) AST (units (unkno wn) date) unknown) (unknown) (no (unknown) (unknown) AST (units (unkno wn) date) unknown) (unknown) (no (unknown) (unknown) AST 28 (units (unkno wn) date) unknown) (unknown) (no (unknown) (unknown) Abd: soft, (units (unk nown) date) non-tender, unknown) normoactive BTs (unknown) (no (unknown) (unknown) Acute blood loss (units (unknown) date) anemia likely unknown) secondary to over coagulation with what appears (unknown) (no (unknown) (unknown) Acute decompensated (unit s (unknown) date) heart failure with unknown) reduced ejection fraction, present on (unknown) (no (unknown) (unknown) Acute kidney injury (unit s (unknown) date) likely secondary to unknown) blood loss anemia, present on admission (unknown) (no (unknown) (unknown) Age/Sex: 76 / M (units (unknown) date) unknown) (unknown) (no (unknown) (unknown) Albumin (units (unkno wn) date) unknown) (unknown) (no (unknown) (unknown) Albumin (units (unkno wn) date) unknown) (unknown) (no (unknown) (unknown) Albumin 3.6 (units (un known) date) unknown) (unknown) (no (unknown) (unknown) Albumin/Globulin (units (unknown) date) Ratio unknown) (unknown) (no (unknown) (unknown) Albumin/Globulin (units (unknown) date) Ratio unknown) (unknown) (no (unknown) (unknown) Albumin/Globulin (units (unknown) date) Ratio 1.0 unknown) (unknown) (no (unknown) (unknown) Alkaline Phosphatase (uni ts (unknown) date) unknown) (unknown) (no (unknown) (unknown) Alkaline Phosphatase (uni ts (unknown) date) unknown) (unknown) (no (unknown) (unknown) Alkaline Phosphatase (uni ts (unknown) date) 170 H unknown) (unknown) (no (unknown) (unknown) Allergy/AdvReac Type (uni ts (unknown) date) Severity Reaction unknown) Status Date / Time (unknown) (no (unknown) (unknown) Anisocytosis (units (u nknown) date) unknown) (unknown) (no (unknown) (unknown) Anisocytosis (units (u nknown) date) unknown) (unknown) (no (unknown) (unknown) Anisocytosis 3+ H (units (unknown) date) unknown) (unknown) (no (unknown) (unknown) Anti-Inflamma (units ( unknown) date) disease unknown) (unknown) (no (unknown) (unknown) Antibody Screen (units (unknown) date) unknown) (unknown) (no (unknown) (unknown) Antibody Screen (units (unknown) date) unknown) (unknown) (no (unknown) (unknown) Antibody Screen (units (unknown) date) Negative unknown) (unknown) (no (unknown) (unknown) Anticoagulated (units (unknown) date) unknown) (unknown) (no (unknown) (unknown) Assessment + Plan (units (unknown) date) unknown) (unknown) (no (unknown) (unknown) Assessment + Plan (units (unknown) date) narrative: unknown) (unknown) (no (unknown) (unknown) Atrial fibrillation (unit s (unknown) date) unknown) (unknown) (no (unknown) (unknown) January 20 or . (uni ts (unknown) date) His anticoagulation unknown) had been stopped and he had at (unknown) (no (unknown) (unknown) BUN (units (unkno wn) date) unknown) (unknown) (no (unknown) (unknown) BUN (units (unkno wn) date) unknown) (unknown) (no (unknown) (unknown) BUN 61 H (units (unkno wn) date) unknown) (unknown) (no (unknown) (unknown) BUN/Creatinine Ratio (uni ts (unknown) date) unknown) (unknown) (no (unknown) (unknown) BUN/Creatinine Ratio (uni ts (unknown) date) unknown) (unknown) (no (unknown) (unknown) BUN/Creatinine Ratio (uni ts (unknown) date) 19.2 unknown) (unknown) (no (unknown) (unknown) Baso # (Auto) (units ( unknown) date) unknown) (unknown) (no (unknown) (unknown) Baso # (Auto) (units ( unknown) date) unknown) (unknown) (no (unknown) (unknown) Baso # (Auto) 100 (units (unknown) date) unknown) (unknown) (no (unknown) (unknown) Baso % (Auto) (units ( unknown) date) unknown) (unknown) (no (unknown) (unknown) Baso % (Auto) (units ( unknown) date) unknown) (unknown) (no (unknown) (unknown) Baso % (Auto) 1.0 (units (unknown) date) unknown) (unknown) (no (unknown) (unknown) Been Physically Hurt (uni ts (unknown) date) or No unknown) (unknown) (no (unknown) (unknown) Blood Pressure (units (unknown) date) 101/57 L unknown) (unknown) (no (unknown) (unknown) Blood Pressure (units (unknown) date) 103/52 L unknown) (unknown) (no (unknown) (unknown) Blood Pressure (units (unknown) date) 102/52 L 98/52 L unknown) (unknown) (no (unknown) (unknown) Blood Pressure 95/53 (uni ts (unknown) date) L unknown) (unknown) (no (unknown) (unknown) Blood Pressure 95/54 (uni ts (unknown) date) L unknown) (unknown) (no (unknown) (unknown) Blood Pressure 95/55 (uni ts (unknown) date) L unknown) (unknown) (no (unknown) (unknown) Blood Pressure (units (unknown) date) 101/52 L 95/54 L unknown) (unknown) (no (unknown) (unknown) Blood Pressure (units (unknown) date) 102/53 L 109/57 L unknown) (unknown) (no (unknown) (unknown) Blood Pressure (units (unknown) date) 108/46 L unknown) (unknown) (no (unknown) (unknown) Blood Pressure 78/54 (uni ts (unknown) date) L 102/52 L unknown) (unknown) (no (unknown) (unknown) Blood Pressure 90/50 (uni ts (unknown) date) L 92/51 L unknown) (unknown) (no (unknown) (unknown) Blood Pressure 94/46 (uni ts (unknown) date) L 95/55 L 98/52 L unknown) (unknown) (no (unknown) (unknown) Blood Pressure 96/53 (uni ts (unknown) date) L unknown) (unknown) (no (unknown) (unknown) Blood Pressure 97/52 (uni ts (unknown) date) L 101/54 L unknown) (unknown) (no (unknown) (unknown) Blood Pressure 98/52 (uni ts (unknown) date) L unknown) (unknown) (no (unknown) (unknown) Blood Pressure 98/52 (uni ts (unknown) date) L 95/54 L 95/50 L unknown) (unknown) (no (unknown) (unknown) Blood Pressure 98/52 (uni ts (unknown) date) L 97/52 L 102/53 L unknown) (unknown) (no (unknown) (unknown) Blood Type (units (unk nown) date) unknown) (unknown) (no (unknown) (unknown) Blood Type (units (unk nown) date) unknown) (unknown) (no (unknown) (unknown) Blood Type A (units (u nknown) date) Negative unknown) (unknown) (no (unknown) (unknown) CV: RRR, no murmur (units (unknown) date) or rubs unknown) (unknown) (no (unknown) (unknown) Calcium (units (unkno wn) date) unknown) (unknown) (no (unknown) (unknown) Calcium (units (unkno wn) date) unknown) (unknown) (no (unknown) (unknown) Calcium 8.4 (units (un known) date) unknown) (unknown) (no (unknown) (unknown) Carbon Dioxide (units (unknown) date) unknown) (unknown) (no (unknown) (unknown) Carbon Dioxide (units (unknown) date) unknown) (unknown) (no (unknown) (unknown) Carbon Dioxide 27 (units (unknown) date) unknown) (unknown) (no (unknown) (unknown) Chief complaint: (units (unknown) date) Dementia unknown) (unknown) (no (unknown) (unknown) Chloride (units (unkno wn) date) unknown) (unknown) (no (unknown) (unknown) Chloride (units (unkno wn) date) unknown) (unknown) (no (unknown) (unknown) Chloride 97 L (units ( unknown) date) unknown) (unknown) (no (unknown) (unknown) Clinical signs and (units (unknown) date) symptoms of DVT: No unknown) (unknown) (no (unknown) (unknown) Cordis but has no (units (unknown) date) problems being here. unknown) He stated that he does remember falling (unknown) (no (unknown) (unknown) Coronary artery (units (unknown) date) disease unknown) (unknown) (no (unknown) (unknown) Coronary artery (units (unknown) date) disease, chronic unknown) (unknown) (no (unknown) (unknown) Creatinine (units (unk nown) date) unknown) (unknown) (no (unknown) (unknown) Creatinine (units (unk nown) date) unknown) (unknown) (no (unknown) (unknown) Creatinine 3.18 H (units (unknown) date) unknown) (unknown) (no (unknown) (unknown) Critical Care time: (unit s (unknown) date) unknown) (unknown) (no (unknown) (unknown) Crossmatch (units (unk nown) date) unknown) (unknown) (no (unknown) (unknown) Crossmatch (units (unk nown) date) unknown) (unknown) (no (unknown) (unknown) Crossmatch See (units (unknown) date) Detail unknown) (unknown) (no (unknown) (unknown) Currently his (units ( unknown) date) hemoglobin and unknown) hematocrit was improved to 7.9 in 24.5 (unknown) (no (unknown) (unknown) : 1945 (units (unknown) date) Acct:[id number] unknown) (unknown) (no (unknown) (unknown) Date Patient Seen: (units (unknown) date) 01/27/22 unknown) (unknown) (no (unknown) (unknown) Deep Vein (units (unkn own) date) Thrombosis/Pulmonary unknown) Embolism Present on Admission: No (unknown) (no (unknown) (unknown) Diabetes (units (unkno wn) date) unknown) (unknown) (no (unknown) (unknown) Dyslipidemia (units (u nknown) date) unknown) (unknown) (no (unknown) (unknown) Environment (units (un known) date) unknown) (unknown) (no (unknown) (unknown) Eos # (Auto) (units (u nknown) date) unknown) (unknown) (no (unknown) (unknown) Eos # (Auto) (units (u nknown) date) unknown) (unknown) (no (unknown) (unknown) Eos # (Auto) 200 (units (unknown) date) unknown) (unknown) (no (unknown) (unknown) Eos % (Auto) (units (u nknown) date) unknown) (unknown) (no (unknown) (unknown) Eos % (Auto) (units (u nknown) date) unknown) (unknown) (no (unknown) (unknown) Eos % (Auto) 2.8 (units (unknown) date) unknown) (unknown) (no (unknown) (unknown) Estimated GFR (units ( unknown) date) unknown) (unknown) (no (unknown) (unknown) Estimated GFR (units ( unknown) date) unknown) (unknown) (no (unknown) (unknown) Estimated GFR 19 L (units (unknown) date) unknown) (unknown) (no (unknown) (unknown) Exam (units (unkno wn) date) unknown) (unknown) (no (unknown) (unknown) Exam Narrative: (units (unknown) date) unknown) (unknown) (no (unknown) (unknown) Extremities: moves (units (unknown) date) all 4 extremities, is unknown) ambulatory, negative Laura?s sign (unknown) (no (unknown) (unknown) Family + Social (units (unknown) date) History unknown) (unknown) (no (unknown) (unknown) Family History (units (unknown) date) (Updated 01/27/22 @ unknown) 04:05 by MEKA Mendoza) (unknown) (no (unknown) (unknown) Family history (units (unknown) date) unavailable: Yes unknown) (unknown) (no (unknown) (unknown) Feels Safe in (units ( unknown) date) Current Yes unknown) (unknown) (no (unknown) (unknown) Gen: Alert, (units (un known) date) oriented, unknown) well-nourished 76 y.o. male, NAD (unknown) (no (unknown) (unknown) Globulin (units (unkno wn) date) unknown) (unknown) (no (unknown) (unknown) Globulin (units (unkno wn) date) unknown) (unknown) (no (unknown) (unknown) Globulin 3.5 (units (u nknown) date) unknown) (unknown) (no (unknown) (unknown) Glucose (units (unkno wn) date) unknown) (unknown) (no (unknown) (unknown) Glucose (units (unkno wn) date) unknown) (unknown) (no (unknown) (unknown) Glucose 130 H (units ( unknown) date) unknown) (unknown) (no (unknown) (unknown) HEENT: (units (unkno wn) date) normocephalic, unknown) atraumatic, conjunctiva clear, sclera non-icteric, oral (unknown) (no (unknown) (unknown) Osmel Baxter is a (units (unknown) date) 76-year-old male unknown) status post CABG approximately 20 years ago, (unknown) (no (unknown) (unknown) Osmel Baxter will be (unit s (unknown) date) admitted for further unknown) management of acute blood loss anemia, (unknown) (no (unknown) (unknown) Hct (units (unkno wn) date) unknown) (unknown) (no (unknown) (unknown) Hct 24.5 L (units (unk nown) date) unknown) (unknown) (no (unknown) (unknown) Hct 20.8 L* (units (un known) date) unknown) (unknown) (no (unknown) (unknown) He is afebrile, (units (unknown) date) blood pressure unknown) 108/46, heart rate 58, respiratory rate 12, (unknown) (no (unknown) (unknown) [facility] with decompensated (unknown) (no (unknown) (unknown) Heart rate > 100: No (uni ts (unknown) date) unknown) (unknown) (no (unknown) (unknown) Hemoglobin A1c (units (unknown) date) unknown) (unknown) (no (unknown) (unknown) Hemoglobin A1c (units (unknown) date) unknown) (unknown) (no (unknown) (unknown) Hemoglobin A1c 6.5 H (uni ts (unknown) date) unknown) (unknown) (no (unknown) (unknown) Hemoptysis: No (units (unknown) date) unknown) (unknown) (no (unknown) (unknown) Hgb (units (unkno wn) date) unknown) (unknown) (no (unknown) (unknown) Hgb 7.9 L (units (unkn own) date) unknown) (unknown) (no (unknown) (unknown) Hgb 6.7 L* (units (unk nown) date) unknown) (unknown) (no (unknown) (unknown) History (units (unkno wn) date) unknown) (unknown) (no (unknown) (unknown) History of PE or (units (unknown) date) DVT: No unknown) (unknown) (no (unknown) (unknown) History of Present (units (unknown) date) Illness unknown) (unknown) (no (unknown) (unknown) Home Medications and (uni ts (unknown) date) Allergies unknown) (unknown) (no (unknown) (unknown) Hx of (units (unkno wn) date) cholecystectomy unknown) (unknown) (no (unknown) (unknown) Hypertension (units (u nknown) date) unknown) (unknown) (no (unknown) (unknown) I spent a total of (units (unknown) date) [] minutes of unknown) critical care time on this patient's care (unknown) (no (unknown) (unknown) Immobilization at (units (unknown) date) least 3 days or surg unknown) in previous 4 weeks: Yes (unknown) (no (unknown) (unknown) Labs (units (unkno wn) date) unknown) (unknown) (no (unknown) (unknown) Labs: (units (unkno wn) date) unknown) (unknown) (no (unknown) (unknown) Lactate (units (unkno wn) date) unknown) (unknown) (no (unknown) (unknown) Lactate (units (unkno wn) date) unknown) (unknown) (no (unknown) (unknown) Lactate 1.3 (units (un known) date) unknown) (unknown) (no (unknown) (unknown) Lipase (units (unkno wn) date) unknown) (unknown) (no (unknown) (unknown) Lipase (units (unkno wn) date) unknown) (unknown) (no (unknown) (unknown) Lipase 135 (units (unk nown) date) unknown) (unknown) (no (unknown) (unknown) Lymph # (Auto) (units (unknown) date) unknown) (unknown) (no (unknown) (unknown) Lymph # (Auto) (units (unknown) date) unknown) (unknown) (no (unknown) (unknown) Lymph # (Auto) 800 L (uni ts (unknown) date) unknown) (unknown) (no (unknown) (unknown) Lymph % (Auto) (units (unknown) date) unknown) (unknown) (no (unknown) (unknown) Lymph % (Auto) (units (unknown) date) unknown) (unknown) (no (unknown) (unknown) Lymph % (Auto) 11.4 (unit s (unknown) date) L unknown) (unknown) (no (unknown) (unknown) MCH (units (unkno wn) date) unknown) (unknown) (no (unknown) (unknown) MCH (units (unkno wn) date) unknown) (unknown) (no (unknown) (unknown) MCH 24.6 L (units (unk nown) date) unknown) (unknown) (no (unknown) (unknown) MCHC (units (unkno wn) date) unknown) (unknown) (no (unknown) (unknown) MCHC (units (unkno wn) date) unknown) (unknown) (no (unknown) (unknown) MCHC 32.4 (units (unkn own) date) unknown) (unknown) (no (unknown) (unknown) MCV (units (unkno wn) date) unknown) (unknown) (no (unknown) (unknown) MCV (units (unkno wn) date) unknown) (unknown) (no (unknown) (unknown) MCV 75.7 L (units (unk nown) date) unknown) (unknown) (no (unknown) (unknown) Magnesium (units (unkn own) date) unknown) (unknown) (no (unknown) (unknown) Magnesium (units (unkn own) date) unknown) (unknown) (no (unknown) (unknown) Magnesium 1.7 (units ( unknown) date) unknown) (unknown) (no (unknown) (unknown) Malignancy (units (unk nown) date) w/Treatment within 6 unknown) months or palliative: No (unknown) (no (unknown) (unknown) Medical History (units (unknown) date) (Reviewed 01/27/22 @ unknown) 04:05 by MEKA Mendoza) (unknown) (no (unknown) (unknown) Meds (units (unkno wn) date) unknown) (unknown) (no (unknown) (unknown) Metformin (units (unkn own) date) Hydrochloride 1,275 unknown) mg PO BID ##0 07/08/12 History (unknown) (no (unknown) (unknown) Lajas # (Auto) (units ( unknown) date) unknown) (unknown) (no (unknown) (unknown) Lajas # (Auto) (units ( unknown) date) unknown) (unknown) (no (unknown) (unknown) Lajas # (Auto) 700 (units (unknown) date) unknown) (unknown) (no (unknown) (unknown) Lajas % (Auto) (units ( unknown) date) unknown) (unknown) (no (unknown) (unknown) Lajas % (Auto) (units ( unknown) date) unknown) (unknown) (no (unknown) (unknown) Lajas % (Auto) 9.8 (units (unknown) date) unknown) (unknown) (no (unknown) (unknown) NSAIDS (units (unkno wn) date) (Non-Steroidal unknown) AdvReac Severe kidney Verified 11/14/19 20:28 (unknown) (no (unknown) (unknown) Narrative (units (unkn own) date) unknown) (unknown) (no (unknown) (unknown) Narrative: (units (unk nown) date) unknown) (unknown) (no (unknown) (unknown) Neck: supple, full (units (unknown) date) ROM, no JVD, trachea unknown) is midline (unknown) (no (unknown) (unknown) Neuro complex rhythm (uni ts (unknown) date) and was giving unknown) adenosine and at that time revealing (unknown) (no (unknown) (unknown) Neuro: Alert and (units (unknown) date) oriented X 4 w/no unknown) focal deficits. Speech clear and coherent. (unknown) (no (unknown) (unknown) Neut # (Auto) (units ( unknown) date) unknown) (unknown) (no (unknown) (unknown) Neut # (Auto) (units ( unknown) date) unknown) (unknown) (no (unknown) (unknown) Neut # (Auto) 5400 (units (unknown) date) unknown) (unknown) (no (unknown) (unknown) Neut % (Auto) (units ( unknown) date) unknown) (unknown) (no (unknown) (unknown) Neut % (Auto) (units ( unknown) date) unknown) (unknown) (no (unknown) (unknown) Neut % (Auto) 75.0 (units (unknown) date) unknown) (unknown) (no (unknown) (unknown) Objective (units (unkn own) date) unknown) (unknown) (no (unknown) (unknown) Other Adopted (units ( unknown) date) unknown) (unknown) (no (unknown) (unknown) Oxygen Delivery (units (unknown) date) Method unknown) (unknown) (no (unknown) (unknown) Oxygen Delivery (units (unknown) date) Method Room Air unknown) (unknown) (no (unknown) (unknown) Oxygen Delivery (units (unknown) date) Method unknown) (unknown) (no (unknown) (unknown) Oxygen Delivery (units (unknown) date) Method Room Air unknown) (unknown) (no (unknown) (unknown) Oxygen Flow Rate (units (unknown) date) unknown) (unknown) (no (unknown) (unknown) Oxygen Flow Rate 0 (units (unknown) date) unknown) (unknown) (no (unknown) (unknown) Oxygen Flow Rate 0 (units (unknown) date) unknown) (unknown) (no (unknown) (unknown) PCR is negative, (units (unknown) date) blood type is A unknown) negative. (unknown) (no (unknown) (unknown) PE is #1 Dx or (units (unknown) date) equally likely: No unknown) (unknown) (no (unknown) (unknown) Patient History (units (unknown) date) unknown) (unknown) (no (unknown) (unknown) Patient does not (units (unknown) date) remember the details unknown) of what brought him here, thought he was (unknown) (no (unknown) (unknown) Patient has a remote (uni ts (unknown) date) history of undergoing unknown) a CABG he states about 20 years ago. (unknown) (no (unknown) (unknown) Patient: (units (unkno wn) date) Osmel Baxter MR#: unknown) [id number] (unknown) (no (unknown) (unknown) Plt Count (units (unkn own) date) unknown) (unknown) (no (unknown) (unknown) Plt Count (units (unkn own) date) unknown) (unknown) (no (unknown) (unknown) Plt Count 206 (units ( unknown) date) unknown) (unknown) (no (unknown) (unknown) Potassium (units (unkn own) date) unknown) (unknown) (no (unknown) (unknown) Potassium (units (unkn own) date) unknown) (unknown) (no (unknown) (unknown) Potassium 4.3 (units ( unknown) date) unknown) (unknown) (no (unknown) (unknown) Prior Living (units (u nknown) date) Arrangements House unknown) (unknown) (no (unknown) (unknown) Probable left knee (units (unknown) date) cellulitis, acute, unknown) present on admission (unknown) (no (unknown) (unknown) Procalcitonin (units ( unknown) date) unknown) (unknown) (no (unknown) (unknown) Procalcitonin (units ( unknown) date) unknown) (unknown) (no (unknown) (unknown) Procalcitonin 0.50 (units (unknown) date) unknown) (unknown) (no (unknown) (unknown) Provider: Ese Holland (uni ts (unknown) date) [employer]VERTISING [employer]IC[employer] unknown) (unknown) (no (unknown) (unknown) Psyche: normal mood (unit s (unknown) date) and affect. unknown) (unknown) (no (unknown) (unknown) Pulse Oximetry (units (unknown) date) unknown) (unknown) (no (unknown) (unknown) Pulse Oximetry 98 (units (unknown) date) unknown) (unknown) (no (unknown) (unknown) Pulse Oximetry 99 (units (unknown) date) unknown) (unknown) (no (unknown) (unknown) Pulse Oximetry 100 (units (unknown) date) unknown) (unknown) (no (unknown) (unknown) Pulse Oximetry 89 L (unit s (unknown) date) 98 unknown) (unknown) (no (unknown) (unknown) Pulse Oximetry 97 (units (unknown) date) unknown) (unknown) (no (unknown) (unknown) Pulse Oximetry 97 99 (uni ts (unknown) date) unknown) (unknown) (no (unknown) (unknown) Pulse Oximetry 100 (units (unknown) date) unknown) (unknown) (no (unknown) (unknown) Pulse Oximetry 100 (units (unknown) date) 100 unknown) (unknown) (no (unknown) (unknown) Pulse Oximetry 100 (units (unknown) date) 99 unknown) (unknown) (no (unknown) (unknown) Pulse Oximetry 100 (units (unknown) date) 100 unknown) (unknown) (no (unknown) (unknown) Pulse Oximetry 97 98 (uni ts (unknown) date) unknown) (unknown) (no (unknown) (unknown) Pulse Oximetry 99 (units (unknown) date) unknown) (unknown) (no (unknown) (unknown) Pulse Rate 60 (units ( unknown) date) unknown) (unknown) (no (unknown) (unknown) Pulse Rate 61 (units ( unknown) date) unknown) (unknown) (no (unknown) (unknown) Pulse Rate 61 62 (units (unknown) date) unknown) (unknown) (no (unknown) (unknown) Pulse Rate 63 (units ( unknown) date) unknown) (unknown) (no (unknown) (unknown) Pulse Rate 64 64 (units (unknown) date) unknown) (unknown) (no (unknown) (unknown) Pulse Rate 58 L (units (unknown) date) unknown) (unknown) (no (unknown) (unknown) Pulse Rate 61 61 (units (unknown) date) unknown) (unknown) (no (unknown) (unknown) Pulse Rate 62 62 (units (unknown) date) unknown) (unknown) (no (unknown) (unknown) Pulse Rate 62 61 (units (unknown) date) unknown) (unknown) (no (unknown) (unknown) Pulse Rate 63 63 62 (unit s (unknown) date) unknown) (unknown) (no (unknown) (unknown) Pulse Rate 64 (units ( unknown) date) unknown) (unknown) (no (unknown) (unknown) Pulse Rate 64 63 (units (unknown) date) unknown) (unknown) (no (unknown) (unknown) Pulse Rate 64 64 (units (unknown) date) unknown) (unknown) (no (unknown) (unknown) Pulse Rate 64 62 62 (unit s (unknown) date) unknown) (unknown) (no (unknown) (unknown) Pulse Rate 64 64 65 (unit s (unknown) date) unknown) (unknown) (no (unknown) (unknown) Pulse Rate 65 65 64 (unit s (unknown) date) unknown) (unknown) (no (unknown) (unknown) Quality (units (unkno wn) date) unknown) (unknown) (no (unknown) (unknown) RBC (units (unkno wn) date) unknown) (unknown) (no (unknown) (unknown) RBC (units (unkno wn) date) unknown) (unknown) (no (unknown) (unknown) RBC 2.75 L (units (unk nown) date) unknown) (unknown) (no (unknown) (unknown) RBC Morphology (units (unknown) date) unknown) (unknown) (no (unknown) (unknown) RBC Morphology (units (unknown) date) unknown) (unknown) (no (unknown) (unknown) RBC Morphology Not (units (unknown) date) Reportable unknown) (unknown) (no (unknown) (unknown) RDW (units (unkno wn) date) unknown) (unknown) (no (unknown) (unknown) RDW (units (unkno wn) date) unknown) (unknown) (no (unknown) (unknown) RDW 24.5 H (units (unk nown) date) unknown) (unknown) (no (unknown) (unknown) ROS: Yes All systems (uni ts (unknown) date) reviewed with the unknown) patient and are negative except as (unknown) (no (unknown) (unknown) Resp: Lungs CTA, (units (unknown) date) non-labored breathing unknown) (unknown) (no (unknown) (unknown) Respiratory Rate 21 (unit s (unknown) date) unknown) (unknown) (no (unknown) (unknown) Respiratory Rate 15 (unit s (unknown) date) unknown) (unknown) (no (unknown) (unknown) Respiratory Rate 19 (unit s (unknown) date) unknown) (unknown) (no (unknown) (unknown) Respiratory Rate 20 (unit s (unknown) date) 21 unknown) (unknown) (no (unknown) (unknown) Respiratory Rate 20 (unit s (unknown) date) 26 H unknown) (unknown) (no (unknown) (unknown) Respiratory Rate 21 (unit s (unknown) date) unknown) (unknown) (no (unknown) (unknown) Respiratory Rate 12 (unit s (unknown) date) unknown) (unknown) (no (unknown) (unknown) Respiratory Rate 14 (unit s (unknown) date) 13 unknown) (unknown) (no (unknown) (unknown) Respiratory Rate 17 (unit s (unknown) date) unknown) (unknown) (no (unknown) (unknown) Respiratory Rate 17 (unit s (unknown) date) 19 unknown) (unknown) (no (unknown) (unknown) Respiratory Rate 18 (unit s (unknown) date) 14 21 unknown) (unknown) (no (unknown) (unknown) Respiratory Rate 18 (unit s (unknown) date) 15 18 unknown) (unknown) (no (unknown) (unknown) Respiratory Rate 19 (unit s (unknown) date) 16 unknown) (unknown) (no (unknown) (unknown) Respiratory Rate 20 (unit s (unknown) date) 24 unknown) (unknown) (no (unknown) (unknown) Respiratory Rate 20 (unit s (unknown) date) 12 18 unknown) (unknown) (no (unknown) (unknown) Respiratory Rate 21 (unit s (unknown) date) 17 17 unknown) (unknown) (no (unknown) (unknown) Respiratory Rate 22 (unit s (unknown) date) 18 unknown) (unknown) (no (unknown) (unknown) Result Diagrams: (units (unknown) date) unknown) (unknown) (no (unknown) (unknown) Review of Systems (units (unknown) date) unknown) (unknown) (no (unknown) (unknown) Review of outside (units (unknown) date) medical records. On unknown) January 24 the patient presented to the (unknown) (no (unknown) (unknown) S/P CABG x 4 (units (u nknown) date) unknown) (unknown) (no (unknown) (unknown) SARS-CoV-2 (PCR) (units (unknown) date) unknown) (unknown) (no (unknown) (unknown) SARS-CoV-2 (PCR) (units (unknown) date) Negative unknown) (unknown) (no (unknown) (unknown) Safety + Behavioral: (uni ts (unknown) date) unknown) (unknown) (no (unknown) (unknown) [facility] for (units (unknown) date) acute congestive unknown) heart failure on January 06 for acute on (unknown) (no (unknown) (unknown) Scores (units (unkno wn) date) unknown) (unknown) (no (unknown) (unknown) Signed By: (units (unk nown) date) unknown) (unknown) (no (unknown) (unknown) Skin: Multiple (units ( unknown) date) bruises on his right unknown) and left arm right worse than left. He has (unknown) (no (unknown) (unknown) Sleep apnea (units (un known) date) unknown) (unknown) (no (unknown) (unknown) Smoking Status (units (unknown) date) Former smoker unknown) (unknown) (no (unknown) (unknown) Social History: (units (unknown) date) unknown) (unknown) (no (unknown) (unknown) Sodium (units (unkno wn) date) unknown) (unknown) (no (unknown) (unknown) Sodium (units (unkno wn) date) unknown) (unknown) (no (unknown) (unknown) Sodium 132 L (units (u nknown) date) unknown) (unknown) (no (unknown) (unknown) Substance Use Type (units (unknown) date) does not use unknown) (unknown) (no (unknown) (unknown) Surgical History (units (unknown) date) (Reviewed 01/27/22 @ unknown) 04:05 by MEAK Mendoza) (unknown) (no (unknown) (unknown) Temperature (units (un known) date) unknown) (unknown) (no (unknown) (unknown) Temperature 96.3 F L (uni ts (unknown) date) 96.8 F L unknown) (unknown) (no (unknown) (unknown) Temperature 96.7 F L (uni ts (unknown) date) 96.5 F L unknown) (unknown) (no (unknown) (unknown) Temperature 97.7 F (units (unknown) date) 96.8 F L unknown) (unknown) (no (unknown) (unknown) Temperature 98.1 F (units (unknown) date) unknown) (unknown) (no (unknown) (unknown) Temperature 98.6 F (units (unknown) date) 96.8 F L 96.7 F L unknown) (unknown) (no (unknown) (unknown) Threatened By a (units (unknown) date) Person unknown) (unknown) (no (unknown) (unknown) Time Patient Seen: (units (unknown) date) 02:35 unknown) (unknown) (no (unknown) (unknown) Time Spent With (units (unknown) date) Patient unknown) (unknown) (no (unknown) (unknown) Tobacco + Substance (unit s (unknown) date) use: unknown) (unknown) (no (unknown) (unknown) Total Bilirubin (units (unknown) date) unknown) (unknown) (no (unknown) (unknown) Total Bilirubin (units (unknown) date) unknown) (unknown) (no (unknown) (unknown) Total Bilirubin 1.5 (unit s (unknown) date) H unknown) (unknown) (no (unknown) (unknown) Total Protein (units ( unknown) date) unknown) (unknown) (no (unknown) (unknown) Total Protein (units ( unknown) date) unknown) (unknown) (no (unknown) (unknown) Total Protein 7.1 (units (unknown) date) unknown) (unknown) (no (unknown) (unknown) U-100 Insulin) (units (unknown) date) unknown) (unknown) (no (unknown) (unknown) VITAMIN D (Vitamin (units (unknown) date) D3) ##0 07/08/12 unknown) History (unknown) (no (unknown) (unknown) VTE (units (unkno wn) date) unknown) (unknown) (no (unknown) (unknown) Vital Signs (units (un known) date) unknown) (unknown) (no (unknown) (unknown) WBC (units (unkno wn) date) unknown) (unknown) (no (unknown) (unknown) WBC (units (unkno wn) date) unknown) (unknown) (no (unknown) (unknown) WBC 7.1 (units (unkno wn) date) unknown) (unknown) (no (unknown) (unknown) Wells' Criteria for (unit s (unknown) date) PE unknown) (unknown) (no (unknown) (unknown) Wells' PE Score (units (unknown) date) total: 1.5 unknown) (unknown) (no (unknown) (unknown) When he presented to (unit s (unknown) date) the this emergency unknown) department he was found to be profoundly (unknown) (no (unknown) (unknown) [Embedded Image Not (unit s (unknown) date) Available] unknown) (unknown) (no (unknown) (unknown) a very large (units (u nknown) date) hematoma in the unknown) medial knee joint area, it is very swollen but not (unknown) (no (unknown) (unknown) addition to his (units (unknown) date) normal prescribed unknown) dose of 20 mg p.o. per the emergency provider (unknown) (no (unknown) (unknown) administered 2 units (uni ts (unknown) date) PRBC. It was unknown) determined that patient is likely bled into (unknown) (no (unknown) (unknown) admission (units (unkn own) date) unknown) (unknown) (no (unknown) (unknown) alcohol intake (units (unknown) date) frequency unknown) holiday/special occasion (unknown) (no (unknown) (unknown) alk phos 170 proBNP (unit s (unknown) date) 7170 procalcitonin is unknown) negative UA is positive for wbc's (unknown) (no (unknown) (unknown) allopurinol 100 mg (units (unknown) date) tablet 100 mg PO BID unknown) 11/15/19 11/15/19 History (unknown) (no (unknown) (unknown) and he thinks he (units (unknown) date) passed out. He was unknown) allegedly nonresponsive likely to the son (unknown) (no (unknown) (unknown) and paramedics which (uni ts (unknown) date) precipitated bringing unknown) him here. Patient has a history of (unknown) (no (unknown) (unknown) and then does not (units (unknown) date) remember anything out unknown) after that but does state he short of (unknown) (no (unknown) (unknown) anemic with a (units ( unknown) date) hemoglobin and unknown) hematocrit of 6.7 and 20.8 respectively and was (unknown) (no (unknown) (unknown) aspirin 81 mg (units ( unknown) date) chewable tablet 81 mg unknown) PO QDAY ##0 07/08/12 11/15/19 History (unknown) (no (unknown) (unknown) at 15% with volume (units (unknown) date) overload and unknown) tachycardia.? He underwent PCI of the distal (unknown) (no (unknown) (unknown) atorvastatin 20 mg (units (unknown) date) tablet 20 mg PO DAILY unknown) 11/15/19 11/15/19 History (unknown) (no (unknown) (unknown) blood pressure (units (unknown) date) transfusion the unknown) patient was administered IV Lasix 80 mg in (unknown) (no (unknown) (unknown) breath denies chest (unit s (unknown) date) pain. 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 At that unknown) time he was very short of breath, (unknown) (no (unknown) (unknown) complicated cardiac (unit s (unknown) date) history. He states unknown) that when he fell he felt lightheaded (unknown) (no (unknown) (unknown) coronary artery (units (unknown) date) disease, recent unknown) biventricular PCTA, red, cardioversion, diabetes (unknown) (no (unknown) (unknown) cyclobenzaprine 10 (units (unknown) date) mg tablet 10 mg PO unknown) TID 11/15/19 11/15/19 History (unknown) (no (unknown) (unknown) daughter in-law (units (unknown) date) called EMS due to the unknown) patient declining per the ED triage note. (unknown) (no (unknown) (unknown) draining actively (units (unknown) date) unknown) (unknown) (no (unknown) (unknown) duloxetine 30 mg, (units (unknown) date) ferrous gluconate 324 unknown) mg, glargine insulin, metformin, (unknown) (no (unknown) (unknown) dyspneic orthopneic (unit s (unknown) date) and unable to lay unknown) flat. He became tachycardic developing a (unknown) (no (unknown) (unknown) dysuria diarrhea or (units (unknown) date) constipation he does unknown) state positive to having numbing of his (unknown) (no (unknown) (unknown) ection fraction. (units (unknown) date) unknown) (unknown) (no (unknown) (unknown) emergency department (uni ts (unknown) date) after injuring his unknown) right knee seemingly occurred about (unknown) (no (unknown) (unknown) ferrous sulfate (units (unknown) date) Allergy Muscle Pain unknown) Verified 11/14/19 20:28 (unknown) (no (unknown) (unknown) for atrial (units (unkn own) date) fibrillation.? He was unknown) discharged home to his son's home. He appeared (unknown) (no (unknown) (unknown) for sepsis and was (units (unknown) date) given fluid unknown) resuscitation in addition to IV Zosyn and (unknown) (no (unknown) (unknown) gabapentin Allergy (units (unknown) date) Confusion Verified unknown) 11/14/19 20:28 (unknown) (no (unknown) (unknown) good control in (units (unknown) date) thought his A1c was unknown) less than 8. He denies nausea or vomiting, (unknown) (no (unknown) (unknown) hands and feet. (units (unknown) date) unknown) (unknown) (no (unknown) (unknown) have actually lodged (unit s (unknown) date) into his medial calf unknown) with some skin peeling surrounding the (unknown) (no (unknown) (unknown) heart failure with (units (unknown) date) reduced ejection unknown) fraction and has had a recent and (unknown) (no (unknown) (unknown) heart failure. He was (uni ts (unknown) date) subsequently seen in unknown) the heart failure clinic and admitted (unknown) (no (unknown) (unknown) hematoma but no (units (unknown) date) fracture. They unknown) applied a posterior splint to immobilize his (unknown) (no (unknown) (unknown) hematoma. He also (units (unknown) date) had a number of unknown) dressings on his right arm. He states that (unknown) (no (unknown) (unknown) household members (units (unknown) date) significant other unknown) (unknown) (no (unknown) (unknown) hydrochlorothiazide (unit s (unknown) date) 25 mg tablet 50 mg PO unknown) QDAY ##0 07/08/12 History (unknown) (no (unknown) (unknown) in the [facility]units (unknown) date[facility]. [facility] was discharged from (unknown) (no (unknown) (unknown) injector (Ozempic) (units (unknown) date) unknown) (unknown) (no (unknown) (unknown) insulin glargine 100 (uni ts (unknown) date) unit/mL 100 unit SQ unknown) DAILY ##0 07/08/12 11/15/19 History (unknown) (no (unknown) (unknown) intramuscular oil (units (unknown) date) unknown) (unknown) (no (unknown) (unknown) irregular medial soft (uni ts (unknown) date) tissue masses without unknown) extension into the underlying joint, (unknown) (no (unknown) (unknown) left leg and was to (unit s (unknown) date) have removed it in unknown) 2-3 days. He was discharged with 14 (unknown) (no (unknown) (unknown) lisinopril 20 mg (units (unknown) date) tablet 10 mg PO QDAY unknown) ##0 07/08/12 11/15/19 History (unknown) (no (unknown) (unknown) mg/1.5 mL) (units (unk nown) date) subcutaneous pen unknown) (unknown) (no (unknown) (unknown) mucosa pink and (units (unknown) date) moist unknown) (unknown) (no (unknown) (unknown) omeprazole 40 mg (units (unknown) date) capsule,delayed 40 mg unknown) PO DAILY ##0 07/08/12 11/15/19 History (unknown) (no (unknown) (unknown) omeprazole, Mirapex (unit s (unknown) date) 0.125 mg nightly and unknown) as needed nitroglycerin. (unknown) (no (unknown) (unknown) on on September 06 for (unit s (unknown) date) an elective right unknown) left heart catheterization, undergoing a (unknown) (no (unknown) (unknown) oriented and was (units (unknown) date) requested for unknown) admission to the medical floor. (unknown) (no (unknown) (unknown) otherwise documented (uni ts (unknown) date) unknown) (unknown) (no (unknown) (unknown) oxycodone 10 mg (units (unknown) date) tablet,crush 10 mg PO unknown) BID 11/15/19 11/15/19 History (unknown) (no (unknown) (unknown) oxycodone. When he (units (unknown) date) presented to this unknown) emergency room the splint was found to (unknown) (no (unknown) (unknown) oxygen saturation of (uni ts (unknown) date) 100% on room air he unknown) weighs 94 kg with a BMI of 33.4. (unknown) (no (unknown) (unknown) presumably hematoma (unit s (unknown) date) and likely the source unknown) of the acute blood loss. After the (unknown) (no (unknown) (unknown) readmitted to (units ( unknown) date) [facility]. He unknown) does not understand why he has here an anti (unknown) (no (unknown) (unknown) release (units (unkno wn) date) unknown) (unknown) (no (unknown) (unknown) resistant,extended (units (unknown) date) release 12 hr unknown) (unknown) (no (unknown) (unknown) respectively, (units ( unknown) date) platelet count is unknown) 206, sodium 132 chloride 97 BUN 61 creatinine (unknown) (no (unknown) (unknown) right coronary (units (unknown) date) artery, had a unknown) transesophageal echocardiogram and cardioversion (unknown) (no (unknown) (unknown) rivaroxaban 20 mg (units (unknown) date) tablet (Xarelto) 20 unknown) mg PO DAILY 11/14/19 11/14/19 History (unknown) (no (unknown) (unknown) semaglutide 0.25 mg (unit s (unknown) date) or 0.5 mg (2 0.25 mg unknown) SUBCUT QWEEK 11/15/19 11/15/19 History (unknown) (no (unknown) (unknown) sildenafil 100 mg (units (unknown) date) tablet 100 mg PO unknown) DAILY PRN Sexual Activity 11/15/19 11/15/19 (unknown) (no (unknown) (unknown) subcutaneous (units (u nknown) date) solution (Lantus unknown) (unknown) (no (unknown) (unknown) succinate 50 mg, (units (unknown) date) spironolactone 25 mg, unknown) torsemide 20 mg, Jardiance, lisinopril (unknown) (no (unknown) (unknown) tablet (units (unkno wn) date) unknown) (unknown) (no (unknown) (unknown) testosterone (units (u nknown) date) cypionate 200 mg/mL unknown) ##0 07/08/12 History (unknown) (no (unknown) (unknown) the large hematoma. (unit s (unknown) date) He was very unknown) hypotensive when he came in but was concerning (unknown) (no (unknown) (unknown) the patient gets (units (unknown) date) blood pressure unknown) improved and he became a lot more alert and (unknown) (no (unknown) (unknown) these were all due (units (unknown) date) to his falls. unknown) (unknown) (no (unknown) (unknown) to be resumed on his (uni ts (unknown) date) home medications of unknown) aspirin, clopidogrel, metoprolol (unknown) (no (unknown) (unknown) to be triple (units (u nknown) date) anti-platelet unknown) therapy, present on admission (unknown) (no (unknown) (unknown) today; this time is (unit s (unknown) date) exclusive of unknown) procedural time. 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 He (unit s (unknown) date) ended up staying unknown) longer to manage his atrial fibrillation (unknown) (no (unknown) (unknown) urine bacteria and (units (unknown) date) apparently yeast and unknown) meets criteria for culture. COVID-19 (unknown) (no (unknown) (unknown) vancomycin. He also (unit s (unknown) date) presented with an unknown) acute kidney injury with a creatinine of (unknown) (no (unknown) (unknown) zolpidem [From (units (unknown) date) Ambien] Allergy unknown) Confusion Verified 11/14/19 20:28 Result panel 40 (unknown) (no (unknown) (unknown) (no value) (units (unk nown) date) unknown) (unknown) (no (unknown) (unknown) (no value) (units (unk nown) date) unknown) (unknown) (no (unknown) (unknown) Date of Service: (units (unknown) date) 01/27/22 unknown) (unknown) (no (unknown) (unknown) (no value) (units (unk nown) date) unknown) (unknown) (no (unknown) (unknown) - (units (unkno wn) date) unknown) (unknown) (no (unknown) (unknown) 01/26/22 19:40 (units (unknown) date) unknown) (unknown) (no (unknown) (unknown) 01/27/22 01:37 (units (unknown) date) unknown) (unknown) (no (unknown) (unknown) 01/27/22 0433 (units ( unknown) date) unknown) (unknown) (no (unknown) (unknown) Allergies (units (unkn own) date) unknown) (unknown) (no (unknown) (unknown) History + Physical (units (unknown) date) Report unknown) (unknown) (no (unknown) (unknown) Home Medications (units (unknown) date) unknown) (unknown) (no (unknown) (unknown) [facility] [address] (uni ts (unknown) date) [address] unknown) [place] [address] (unknown) (no (unknown) (unknown) Laboratory Results - (uni ts (unknown) date) last 24 hr unknown) (unknown) (no (unknown) (unknown) (no value) (units (unk nown) date) unknown) (unknown) (no (unknown) (unknown) 01/26/22 01/26/22 (units (unknown) date) 01/26/22 unknown) (unknown) (no (unknown) (unknown) 01/26/22 01/27/22 (units (unknown) date) unknown) (unknown) (no (unknown) (unknown) 19:40 19:40 19:40 (units (unknown) date) unknown) (unknown) (no (unknown) (unknown) 19:40 19:40 20:21 (units (unknown) date) unknown) (unknown) (no (unknown) (unknown) 20:47 01:37 (units (un known) date) unknown) (unknown) (no (unknown) (unknown) from 6.7-7.9 and (units (unknown) date) 20.8-24.5 unknown) respectively (unknown) (no (unknown) (unknown) initiated on IV (units (unknown) date) ceftriaxone unknown) (unknown) (no (unknown) (unknown) 01/26/22 (units (unkno wn) date) unknown) (unknown) (no (unknown) (unknown) 01/27/22 (units (unkno wn) date) unknown) (unknown) (no (unknown) (unknown) Medication (units (unk nown) date) Instructions Recorded unknown) Confirmed Type (unknown) (no (unknown) (unknown) Surrogate decision (units (unknown) date) maker is in patient?s unknown) record [If Yes, STOP here]: Yes (unknown) (no (unknown) (unknown) acute kidney injury, (uni ts (unknown) date) and acute unknown) exacerbation of heart failure with reduced (unknown) (no (unknown) (unknown) care is appreciated. (uni ts (unknown) date) unknown) (unknown) (no (unknown) (unknown) enzymes, Mag, PT/INR (uni ts (unknown) date) unknown) (unknown) (no (unknown) (unknown) (CORINA) Inhibitor, or (unit s (unknown) date) Angiotensin Receptor unknown) Valentina (ARB).: Yes (unknown) (no (unknown) (unknown) (Depo-Testosterone) (unit s (unknown) date) unknown) (unknown) (no (unknown) (unknown) (GLUCOPHAGE) (units (u nknown) date) unknown) (unknown) (no (unknown) (unknown) (past 8 hours): (units (unknown) date) unknown) (unknown) (no (unknown) (unknown) * Carb controlled (units (unknown) date) diet with a.c. HS unknown) glucose checks (unknown) (no (unknown) (unknown) * Closely monitor (units (unknown) date) renal function and unknown) hold nephrotoxic medications (Lisinopril) (unknown) (no (unknown) (unknown) * Continue (units (unk nown) date) carvedilol 25 mg p.o. unknown) b.i.d., patient receives in 12.5 mg tablets (unknown) (no (unknown) (unknown) * Continue home dose (uni ts (unknown) date) of atorvastatin 40 mg unknown) p.o. at bedtime (unknown) (no (unknown) (unknown) * He is currently (units (unknown) date) saline lock due to unknown) volume overload (unknown) (no (unknown) (unknown) * He received IV (units (unknown) date) Lasix 80 mg in unknown) addition to his home oral dose of 20 mg (unknown) (no (unknown) (unknown) * He will receive (units (unknown) date) his home dose of unknown) Lantus 30 units b.i.d. (unknown) (no (unknown) (unknown) * Low-dose (units (unk nown) date) correctional scale unknown) insulin and adjust as needed (unknown) (no (unknown) (unknown) * Orthopedic surgery (uni ts (unknown) date) has been consulted unknown) and will see the patient in the morning (unknown) (no (unknown) (unknown) * Patient is (units (u nknown) date) currently recovering unknown) from biventricular heart catheterization (unknown) (no (unknown) (unknown) * Patient received 2 (uni ts (unknown) date) units PRBC in the unknown) emergency department increasing his H+H (unknown) (no (unknown) (unknown) * Patient was fluid (unit s (unknown) date) resuscitated in the unknown) emergency department 2 L (unknown) (no (unknown) (unknown) * Patient was (units ( unknown) date) initially unknown) administered IV vancomycin and Zosyn but will be (unknown) (no (unknown) (unknown) * Patient's proBNP (units (unknown) date) is almost 7200 unknown) (unknown) (no (unknown) (unknown) * Patient's (units (un known) date) rivaroxaban, aspirin unknown) and clopidogrel are being held (unknown) (no (unknown) (unknown) * Recheck CBC in the (uni ts (unknown) date) morning unknown) (unknown) (no (unknown) (unknown) * Today's A1c is 6.5 (uni ts (unknown) date) unknown) (unknown) (no (unknown) (unknown) * Will need to (units (unknown) date) 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 in the to advise of his admission (unknown) (no (unknown) (unknown) 00:00 (units (unkno wn) date) unknown) (unknown) (no (unknown) (unknown) 00:00 01/27/22 (units (unknown) date) unknown) (unknown) (no (unknown) (unknown) 00:15 01/27/22 (units (unknown) date) unknown) (unknown) (no (unknown) (unknown) 00:30 (units (unkno wn) date) unknown) (unknown) (no (unknown) (unknown) 00:30 01/27/22 (units (unknown) date) unknown) (unknown) (no (unknown) (unknown) 00:45 (units (unkno wn) date) unknown) (unknown) (no (unknown) (unknown) 00:45 01/27/22 (units (unknown) date) unknown) (unknown) (no (unknown) (unknown) 01:00 01/27/22 (units (unknown) date) unknown) (unknown) (no (unknown) (unknown) 01:01 (units (unkno wn) date) unknown) (unknown) (no (unknown) (unknown) 01:01 01/27/22 (units (unknown) date) unknown) (unknown) (no (unknown) (unknown) 01:35 (units (unkno wn) date) unknown) (unknown) (no (unknown) (unknown) 19:44 01/26/22 (units (unknown) date) unknown) (unknown) (no (unknown) (unknown) 2.5 mg, Xarelto 15 (units (unknown) date) mg, allopurinol, unknown) amiodarone 200 mg, atorvastatin 40 mg, (unknown) (no (unknown) (unknown) 20:34 01/26/22 (units (unknown) date) unknown) (unknown) (no (unknown) (unknown) 20:41 (units (unkno wn) date) unknown) (unknown) (no (unknown) (unknown) 21:00 01/26/22 (units (unknown) date) unknown) (unknown) (no (unknown) (unknown) 21:25 (units (unkno wn) date) unknown) (unknown) (no (unknown) (unknown) 21:25 01/26/22 (units (unknown) date) unknown) (unknown) (no (unknown) (unknown) 21:30 (units (unkno wn) date) unknown) (unknown) (no (unknown) (unknown) 21:30 01/26/22 (units (unknown) date) unknown) (unknown) (no (unknown) (unknown) 21:45 (units (unkno wn) date) unknown) (unknown) (no (unknown) (unknown) 21:45 01/26/22 (units (unknown) date) unknown) (unknown) (no (unknown) (unknown) 22:00 01/26/22 (units (unknown) date) unknown) (unknown) (no (unknown) (unknown) 22:15 (units (unkno wn) date) unknown) (unknown) (no (unknown) (unknown) 22:15 01/26/22 (units (unknown) date) unknown) (unknown) (no (unknown) (unknown) 22:30 (units (unkno wn) date) unknown) (unknown) (no (unknown) (unknown) 22:30 01/26/22 (units (unknown) date) unknown) (unknown) (no (unknown) (unknown) 22:35 01/26/22 (units (unknown) date) unknown) (unknown) (no (unknown) (unknown) 22:36 01/26/22 (units (unknown) date) unknown) (unknown) (no (unknown) (unknown) 22:45 (units (unkno wn) date) unknown) (unknown) (no (unknown) (unknown) 22:45 01/26/22 (units (unknown) date) unknown) (unknown) (no (unknown) (unknown) 22:50 (units (unkno wn) date) unknown) (unknown) (no (unknown) (unknown) 22:51 01/26/22 (units (unknown) date) unknown) (unknown) (no (unknown) (unknown) 23:00 01/26/22 (units (unknown) date) unknown) (unknown) (no (unknown) (unknown) 23:01 (units (unkno wn) date) unknown) (unknown) (no (unknown) (unknown) 23:01 01/26/22 (units (unknown) date) unknown) (unknown) (no (unknown) (unknown) 23:04 01/26/22 (units (unknown) date) unknown) (unknown) (no (unknown) (unknown) 23:07 (units (unkno wn) date) unknown) (unknown) (no (unknown) (unknown) 23:15 (units (unkno wn) date) unknown) (unknown) (no (unknown) (unknown) 23:15 01/26/22 (units (unknown) date) unknown) (unknown) (no (unknown) (unknown) 23:30 01/26/22 (units (unknown) date) unknown) (unknown) (no (unknown) (unknown) 23:45 (units (unkno wn) date) unknown) (unknown) (no (unknown) (unknown) 23:45 01/27/22 (units (unknown) date) unknown) (unknown) (no (unknown) (unknown) 3.18 with an EGFR of (uni ts (unknown) date) 19 glucose 130 unknown) hemoglobin A1c is 6.5 total bilirubin 1.5 (unknown) (no (unknown) (unknown) [id number] (units (unkno wn) date) unknown) (unknown) (no (unknown) (unknown) A + B, STOP here]: (units (unknown) date) Yes unknown) (unknown) (no (unknown) (unknown) A. The patient was (units (unknown) date) prescribed or already unknown) taking an Angiotensin-Convertin g Enzyme (unknown) (no (unknown) (unknown) ALT (units (unkno wn) date) unknown) (unknown) (no (unknown) (unknown) ALT (units (unkno wn) date) unknown) (unknown) (no (unknown) (unknown) ALT 27 (units (unkno wn) date) unknown) (unknown) (no (unknown) (unknown) AST (units (unkno wn) date) unknown) (unknown) (no (unknown) (unknown) AST (units (unkno wn) date) unknown) (unknown) (no (unknown) (unknown) AST 28 (units (unkno wn) date) unknown) (unknown) (no (unknown) (unknown) Abd: soft, (units (unk nown) date) non-tender, unknown) normoactive BTs (unknown) (no (unknown) (unknown) Acute blood loss (units (unknown) date) anemia likely unknown) secondary to over coagulation with what appears (unknown) (no (unknown) (unknown) Acute decompensated (unit s (unknown) date) heart failure with unknown) reduced ejection fraction, present on (unknown) (no (unknown) (unknown) Acute kidney injury (unit s (unknown) date) likely secondary to unknown) blood loss anemia, present on admission (unknown) (no (unknown) (unknown) Age/Sex: 76 / M (units (unknown) date) unknown) (unknown) (no (unknown) (unknown) Albumin (units (unkno wn) date) unknown) (unknown) (no (unknown) (unknown) Albumin (units (unkno wn) date) unknown) (unknown) (no (unknown) (unknown) Albumin 3.6 (units (un known) date) unknown) (unknown) (no (unknown) (unknown) Albumin/Globulin (units (unknown) date) Ratio unknown) (unknown) (no (unknown) (unknown) Albumin/Globulin (units (unknown) date) Ratio unknown) (unknown) (no (unknown) (unknown) Albumin/Globulin (units (unknown) date) Ratio 1.0 unknown) (unknown) (no (unknown) (unknown) Alkaline Phosphatase (uni ts (unknown) date) unknown) (unknown) (no (unknown) (unknown) Alkaline Phosphatase (uni ts (unknown) date) unknown) (unknown) (no (unknown) (unknown) Alkaline Phosphatase (uni ts (unknown) date) 170 H unknown) (unknown) (no (unknown) (unknown) Allergy/AdvReac Type (uni ts (unknown) date) Severity Reaction unknown) Status Date / Time (unknown) (no (unknown) (unknown) [place] but has no (uni ts (unknown) date) problems being here. unknown) He stated that he does remember (unknown) (no (unknown) (unknown) Anisocytosis (units (u nknown) date) unknown) (unknown) (no (unknown) (unknown) Anisocytosis (units (u nknown) date) unknown) (unknown) (no (unknown) (unknown) Anisocytosis 3+ H (units (unknown) date) unknown) (unknown) (no (unknown) (unknown) Anti-Inflamma (units ( unknown) date) disease unknown) (unknown) (no (unknown) (unknown) Antibody Screen (units (unknown) date) unknown) (unknown) (no (unknown) (unknown) Antibody Screen (units (unknown) date) unknown) (unknown) (no (unknown) (unknown) Antibody Screen (units (unknown) date) Negative unknown) (unknown) (no (unknown) (unknown) Anticoagulated (units (unknown) date) unknown) (unknown) (no (unknown) (unknown) Assessment + Plan (units (unknown) date) unknown) (unknown) (no (unknown) (unknown) Assessment + Plan (units (unknown) date) narrative: unknown) (unknown) (no (unknown) (unknown) Atrial fibrillation (unit s (unknown) date) unknown) (unknown) (no (unknown) (unknown) January 20 or . (uni ts (unknown) date) His anticoagulation unknown) had been stopped and he had at (unknown) (no (unknown) (unknown) B. The patient was (units (unknown) date) prescribed or already unknown) taking a beta-valentina. [If Yes to Both (unknown) (no (unknown) (unknown) BUN (units (unkno wn) date) unknown) (unknown) (no (unknown) (unknown) BUN (units (unkno wn) date) unknown) (unknown) (no (unknown) (unknown) BUN 61 H (units (unkno wn) date) unknown) (unknown) (no (unknown) (unknown) BUN/Creatinine Ratio (uni ts (unknown) date) unknown) (unknown) (no (unknown) (unknown) BUN/Creatinine Ratio (uni ts (unknown) date) unknown) (unknown) (no (unknown) (unknown) BUN/Creatinine Ratio (uni ts (unknown) date) 19.2 unknown) (unknown) (no (unknown) (unknown) Baso # (Auto) (units ( unknown) date) unknown) (unknown) (no (unknown) (unknown) Baso # (Auto) (units ( unknown) date) unknown) (unknown) (no (unknown) (unknown) Baso # (Auto) 100 (units (unknown) date) unknown) (unknown) (no (unknown) (unknown) Baso % (Auto) (units ( unknown) date) unknown) (unknown) (no (unknown) (unknown) Baso % (Auto) (units ( unknown) date) unknown) (unknown) (no (unknown) (unknown) Baso % (Auto) 1.0 (units (unknown) date) unknown) (unknown) (no (unknown) (unknown) Been Physically Hurt (uni ts (unknown) date) or No unknown) (unknown) (no (unknown) (unknown) Blood Pressure (units (unknown) date) 101/57 L unknown) (unknown) (no (unknown) (unknown) Blood Pressure (units (unknown) date) 103/52 L unknown) (unknown) (no (unknown) (unknown) Blood Pressure (units (unknown) date) 102/52 L 98/52 L unknown) (unknown) (no (unknown) (unknown) Blood Pressure 95/53 (uni ts (unknown) date) L unknown) (unknown) (no (unknown) (unknown) Blood Pressure 95/54 (uni ts (unknown) date) L unknown) (unknown) (no (unknown) (unknown) Blood Pressure 95/55 (uni ts (unknown) date) L unknown) (unknown) (no (unknown) (unknown) Blood Pressure (units (unknown) date) 101/52 L 95/54 L unknown) (unknown) (no (unknown) (unknown) Blood Pressure (units (unknown) date) 102/53 L 109/57 L unknown) (unknown) (no (unknown) (unknown) Blood Pressure (units (unknown) date) 108/46 L unknown) (unknown) (no (unknown) (unknown) Blood Pressure 78/54 (uni ts (unknown) date) L 102/52 L unknown) (unknown) (no (unknown) (unknown) Blood Pressure 90/50 (uni ts (unknown) date) L 92/51 L unknown) (unknown) (no (unknown) (unknown) Blood Pressure 94/46 (uni ts (unknown) date) L 95/55 L 98/52 L unknown) (unknown) (no (unknown) (unknown) Blood Pressure 96/53 (uni ts (unknown) date) L unknown) (unknown) (no (unknown) (unknown) Blood Pressure 97/52 (uni ts (unknown) date) L 101/54 L unknown) (unknown) (no (unknown) (unknown) Blood Pressure 98/52 (uni ts (unknown) date) L unknown) (unknown) (no (unknown) (unknown) Blood Pressure 98/52 (uni ts (unknown) date) L 95/54 L 95/50 L unknown) (unknown) (no (unknown) (unknown) Blood Pressure 98/52 (uni ts (unknown) date) L 97/52 L 102/53 L unknown) (unknown) (no (unknown) (unknown) Blood Type (units (unk nown) date) unknown) (unknown) (no (unknown) (unknown) Blood Type (units (unk nown) date) unknown) (unknown) (no (unknown) (unknown) Blood Type A (units (u nknown) date) Negative unknown) (unknown) (no (unknown) (unknown) COVID-19 (units (unkno wn) date) unknown) (unknown) (no (unknown) (unknown) COVID-19 status: (units (unknown) date) Negative unknown) (unknown) (no (unknown) (unknown) CV: RRR, no murmur (units (unknown) date) or rubs unknown) (unknown) (no (unknown) (unknown) Calcium (units (unkno wn) date) unknown) (unknown) (no (unknown) (unknown) Calcium (units (unkno wn) date) unknown) (unknown) (no (unknown) (unknown) Calcium 8.4 (units (un known) date) unknown) (unknown) (no (unknown) (unknown) Carbon Dioxide (units (unknown) date) unknown) (unknown) (no (unknown) (unknown) Carbon Dioxide (units (unknown) date) unknown) (unknown) (no (unknown) (unknown) Carbon Dioxide 27 (units (unknown) date) unknown) (unknown) (no (unknown) (unknown) Chief complaint: (units (unknown) date) Dementia unknown) (unknown) (no (unknown) (unknown) Chloride (units (unkno wn) date) unknown) (unknown) (no (unknown) (unknown) Chloride (units (unkno wn) date) unknown) (unknown) (no (unknown) (unknown) Chloride 97 L (units ( unknown) date) unknown) (unknown) (no (unknown) (unknown) Clinical signs and (units (unknown) date) symptoms of DVT: No unknown) (unknown) (no (unknown) (unknown) Code status: Full (units (unknown) date) code as discussed unknown) with the patient who identifies his son, (unknown) (no (unknown) (unknown) Consultants Dr. Aceves (uni ts (unknown) date) Orthopedic Surgery, unknown) care and involvement in the patient?s (unknown) (no (unknown) (unknown) Coronary artery (units (unknown) date) disease unknown) (unknown) (no (unknown) (unknown) Coronary artery (units (unknown) date) disease, chronic unknown) (unknown) (no (unknown) (unknown) Creatinine (units (unk nown) date) unknown) (unknown) (no (unknown) (unknown) Creatinine (units (unk nown) date) unknown) (unknown) (no (unknown) (unknown) Creatinine 3.18 H (units (unknown) date) unknown) (unknown) (no (unknown) (unknown) Critical Care time: (unit s (unknown) date) unknown) (unknown) (no (unknown) (unknown) Crossmatch (units (unk nown) date) unknown) (unknown) (no (unknown) (unknown) Crossmatch (units (unk nown) date) unknown) (unknown) (no (unknown) (unknown) Crossmatch See (units (unknown) date) Detail unknown) (unknown) (no (unknown) (unknown) Currently his (units ( unknown) date) hemoglobin and unknown) hematocrit was improved to 7.9 in 24.5 (unknown) (no (unknown) (unknown) : 1945 (units (unknown) date) Acct:[id number] unknown) (unknown) (no (unknown) (unknown) Date Patient Seen: (units (unknown) date) 01/27/22 unknown) (unknown) (no (unknown) (unknown) Deep Vein (units (unkn own) date) Thrombosis/Pulmonary unknown) Embolism Present on Admission: No (unknown) (no (unknown) (unknown) Diabetes (units (unkno wn) date) unknown) (unknown) (no (unknown) (unknown) Diabetes type 2, (units (unknown) date) appears to be well unknown) controlled (unknown) (no (unknown) (unknown) Dispo: Unknown at (units (unknown) date) this time unknown) (unknown) (no (unknown) (unknown) David his surrogate (units (unknown) date) and POA. unknown) (unknown) (no (unknown) (unknown) Dyslipidemia (units (u nknown) date) unknown) (unknown) (no (unknown) (unknown) Environment (units (un known) date) unknown) (unknown) (no (unknown) (unknown) Eos # (Auto) (units (u nknown) date) unknown) (unknown) (no (unknown) (unknown) Eos # (Auto) (units (u nknown) date) unknown) (unknown) (no (unknown) (unknown) Eos # (Auto) 200 (units (unknown) date) unknown) (unknown) (no (unknown) (unknown) Eos % (Auto) (units (u nknown) date) unknown) (unknown) (no (unknown) (unknown) Eos % (Auto) (units (u nknown) date) unknown) (unknown) (no (unknown) (unknown) Eos % (Auto) 2.8 (units (unknown) date) unknown) (unknown) (no (unknown) (unknown) Estimated GFR (units ( unknown) date) unknown) (unknown) (no (unknown) (unknown) Estimated GFR (units ( unknown) date) unknown) (unknown) (no (unknown) (unknown) Estimated GFR 19 L (units (unknown) date) unknown) (unknown) (no (unknown) (unknown) Exam (units (unkno wn) date) unknown) (unknown) (no (unknown) (unknown) Exam Narrative: (units (unknown) date) unknown) (unknown) (no (unknown) (unknown) Extremities: moves (units (unknown) date) all 4 extremities, is unknown) ambulatory, negative Laura?s sign (unknown) (no (unknown) (unknown) FEN: IV fluids: (units (unknown) date) saline lock, diet: unknown) carb controlled diet, labs: CBC, C/BMP, liver (unknown) (no (unknown) (unknown) FH: non available, (units (unknown) date) patient states he is unknown) adopted. (unknown) (no (unknown) (unknown) Family + Social (units (unknown) date) History unknown) (unknown) (no (unknown) (unknown) Family History (units (unknown) date) (Updated 01/27/22 @ unknown) 04:05 by MEKA Mendoza) (unknown) (no (unknown) (unknown) Family history (units (unknown) date) unavailable: Yes unknown) (unknown) (no (unknown) (unknown) Feels Safe in (units ( unknown) date) Current Yes unknown) (unknown) (no (unknown) (unknown) Gen: Alert, (units (un known) date) oriented, unknown) well-nourished 76 y.o. male, NAD (unknown) (no (unknown) (unknown) Globulin (units (unkno wn) date) unknown) (unknown) (no (unknown) (unknown) Globulin (units (unkno wn) date) unknown) (unknown) (no (unknown) (unknown) Globulin 3.5 (units (u nknown) date) unknown) (unknown) (no (unknown) (unknown) Glucose (units (unkno wn) date) unknown) (unknown) (no (unknown) (unknown) Glucose (units (unkno wn) date) unknown) (unknown) (no (unknown) (unknown) Glucose 130 H (units ( unknown) date) unknown) (unknown) (no (unknown) (unknown) HEENT: (units (unkno wn) date) normocephalic, unknown) atraumatic, conjunctiva clear, sclera non-icteric, oral (unknown) (no (unknown) (unknown) Osmel Baxter is a (units (unknown) date) 76-year-old male unknown) status post CABG approximately 20 years ago, (unknown) (no (unknown) (unknown) Osmel Baxter will be (unit s (unknown) date) admitted for further unknown) management of acute blood loss anemia, (unknown) (no (unknown) (unknown) Hct (units (unkno wn) date) unknown) (unknown) (no (unknown) (unknown) Hct 24.5 L (units (unk nown) date) unknown) (unknown) (no (unknown) (unknown) Hct 20.8 L* (units (un known) date) unknown) (unknown) (no (unknown) (unknown) He is afebrile, (units (unknown) date) blood pressure unknown) 108/46, heart rate 58, respiratory rate 12, (unknown) (no (unknown) (unknown) [facility] with decompensated (unknown) (no (unknown) (unknown) Heart rate > 100: No (uni ts (unknown) date) unknown) (unknown) (no (unknown) (unknown) Hemoglobin A1c (units (unknown) date) unknown) (unknown) (no (unknown) (unknown) Hemoglobin A1c (units (unknown) date) unknown) (unknown) (no (unknown) (unknown) Hemoglobin A1c 6.5 H (uni ts (unknown) date) unknown) (unknown) (no (unknown) (unknown) Hemoptysis: No (units (unknown) date) unknown) (unknown) (no (unknown) (unknown) Hgb (units (unkno wn) date) unknown) (unknown) (no (unknown) (unknown) Hgb 7.9 L (units (unkn own) date) unknown) (unknown) (no (unknown) (unknown) Hgb 6.7 L* (units (unk nown) date) unknown) (unknown) (no (unknown) (unknown) History (units (unkno wn) date) unknown) (unknown) (no (unknown) (unknown) History of PE or (units (unknown) date) DVT: No unknown) (unknown) (no (unknown) (unknown) History of Present (units (unknown) date) Illness unknown) (unknown) (no (unknown) (unknown) Home Medications and (uni ts (unknown) date) Allergies unknown) (unknown) (no (unknown) (unknown) Hx of (units (unkno wn) date) cholecystectomy unknown) (unknown) (no (unknown) (unknown) Hypertension (units (u nknown) date) unknown) (unknown) (no (unknown) (unknown) I confirm the (units (u nknown) date) patient?s Advance unknown) Care Plan is present, Code status is documented, (unknown) (no (unknown) (unknown) I spent a total of (units (unknown) date) [] minutes of unknown) critical care time on this patient's care (unknown) (no (unknown) (unknown) Immobilization at (units (unknown) date) least 3 days or surg unknown) in previous 4 weeks: Yes (unknown) (no (unknown) (unknown) Labs (units (unkno wn) date) unknown) (unknown) (no (unknown) (unknown) Labs: (units (unkno wn) date) unknown) (unknown) (no (unknown) (unknown) Lactate (units (unkno wn) date) unknown) (unknown) (no (unknown) (unknown) Lactate (units (unkno wn) date) unknown) (unknown) (no (unknown) (unknown) Lactate 1.3 (units (un known) date) unknown) (unknown) (no (unknown) (unknown) Lipase (units (unkno wn) date) unknown) (unknown) (no (unknown) (unknown) Lipase (units (unkno wn) date) unknown) (unknown) (no (unknown) (unknown) Lipase 135 (units (unk nown) date) unknown) (unknown) (no (unknown) (unknown) Lymph # (Auto) (units (unknown) date) unknown) (unknown) (no (unknown) (unknown) Lymph # (Auto) (units (unknown) date) unknown) (unknown) (no (unknown) (unknown) Lymph # (Auto) 800 L (uni ts (unknown) date) unknown) (unknown) (no (unknown) (unknown) Lymph % (Auto) (units (unknown) date) unknown) (unknown) (no (unknown) (unknown) Lymph % (Auto) (units (unknown) date) unknown) (unknown) (no (unknown) (unknown) Lymph % (Auto) 11.4 (unit s (unknown) date) L unknown) (unknown) (no (unknown) (unknown) [facility] (units (unkno wn) date) unknown) (unknown) (no (unknown) (unknown) MCH (units (unkno wn) date) unknown) (unknown) (no (unknown) (unknown) MCH 24.6 L (units (unk nown) date) unknown) (unknown) (no (unknown) (unknown) MCHC (units (unkno wn) date) unknown) (unknown) (no (unknown) (unknown) MCHC (units (unkno wn) date) unknown) (unknown) (no (unknown) (unknown) MCHC 32.4 (units (unkn own) date) unknown) (unknown) (no (unknown) (unknown) MCV (units (unkno wn) date) unknown) (unknown) (no (unknown) (unknown) MCV (units (unkno wn) date) unknown) (unknown) (no (unknown) (unknown) MCV 75.7 L (units (unk nown) date) unknown) (unknown) (no (unknown) (unknown) MIPS - Admit (units (u nknown) date) unknown) (unknown) (no (unknown) (unknown) MIPS - DC (units (unkn own) date) unknown) (unknown) (no (unknown) (unknown) Magnesium (units (unkn own) date) unknown) (unknown) (no (unknown) (unknown) Magnesium (units (unkn own) date) unknown) (unknown) (no (unknown) (unknown) Magnesium 1.7 (units ( unknown) date) unknown) (unknown) (no (unknown) (unknown) Malignancy (units (unk nown) date) w/Treatment within 6 unknown) months or palliative: No (unknown) (no (unknown) (unknown) Medical History (units (unknown) date) (Reviewed 01/27/22 @ unknown) 04:05 by MEKA Mendoza) (unknown) (no (unknown) (unknown) Meds (units (unkno wn) date) unknown) (unknown) (no (unknown) (unknown) Metformin (units (unkn own) date) Hydrochloride 1,275 unknown) mg PO BID ##0 07/08/12 History (unknown) (no (unknown) (unknown) Lajas # (Auto) (units ( unknown) date) unknown) (unknown) (no (unknown) (unknown) Lajas # (Auto) (units ( unknown) date) unknown) (unknown) (no (unknown) (unknown) Lajas # (Auto) 700 (units (unknown) date) unknown) (unknown) (no (unknown) (unknown) Lajas % (Auto) (units ( unknown) date) unknown) (unknown) (no (unknown) (unknown) Lajas % (Auto) (units ( unknown) date) unknown) (unknown) (no (unknown) (unknown) Lajas % (Auto) 9.8 (units (unknown) date) unknown) (unknown) (no (unknown) (unknown) NSAIDS (units (unkno wn) date) (Non-Steroidal unknown) AdvReac Severe kidney Verified 11/14/19 20:28 (unknown) (no (unknown) (unknown) Narrative (units (unkn own) date) unknown) (unknown) (no (unknown) (unknown) Narrative: (units (unk nown) date) unknown) (unknown) (no (unknown) (unknown) Neck: supple, full (units (unknown) date) ROM, no JVD, trachea unknown) is midline (unknown) (no (unknown) (unknown) Neuro: Alert and (units (unknown) date) oriented X 4 w/no unknown) focal deficits. Speech clear and coherent. (unknown) (no (unknown) (unknown) Neut # (Auto) (units ( unknown) date) unknown) (unknown) (no (unknown) (unknown) Neut # (Auto) (units ( unknown) date) unknown) (unknown) (no (unknown) (unknown) Neut # (Auto) 5400 (units (unknown) date) unknown) (unknown) (no (unknown) (unknown) Neut % (Auto) (units ( unknown) date) unknown) (unknown) (no (unknown) (unknown) Neut % (Auto) (units ( unknown) date) unknown) (unknown) (no (unknown) (unknown) Neut % (Auto) 75.0 (units (unknown) date) unknown) (unknown) (no (unknown) (unknown) Objective (units (unkn own) date) unknown) (unknown)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 He (unit s (unknown) date) ended up staying unknown) longer to manage his atrial fibrillation (unknown) (no (unknown) (unknown) urine bacteria and (units (unknown) date) apparently yeast and unknown) meets criteria for culture. COVID-19 (unknown) (no (unknown) (unknown) ventricular systolic (uni ts (unknown) date) function.: Yes unknown) (unknown) (no (unknown) (unknown) vomiting, dysuria (units (unknown) date) diarrhea or unknown) constipation he does state positive to having (unknown) (no (unknown) (unknown) zolpidem [From (units (unknown) date) Ambien] Allergy unknown) Confusion Verified 11/14/19 20:28 Result panel 41 (unknown) (no date) (unknown) (unknown) 1.2 (units unknown) (unknown) (unknown) (no date) (unknown) (unknown) 14.1 SECONDS (unkn own) Result panel 42 (unknown) (no date) (unknown) (unknown) 1.5 mg/dL (unkn own) Result panel 43 (unknown) (no date) (unknown) (unknown) 1.2 (units unknown) (unknown) (unknown) (no date) (unknown) (unknown) 14.1 SECONDS (unkn own) Result panel 44 (unknown) (no (unknown) (unknown) (no value) (units (unk nown) date) unknown) (unknown) (no (unknown) (unknown) My Impression: (units (unknown) date) unknown) (unknown) (no (unknown) (unknown) Radiologist's (units ( unknown) date) Impression: unknown) (unknown) (no (unknown) (unknown) Date of Service: (units (unknown) date) 01/27/22 unknown) (unknown) (no (unknown) (unknown) (no value) (units (unk nown) date) unknown) (unknown) (no (unknown) (unknown) <Electronically (units (unknown) date) signed by Ashley Heredia unknown) MD Gretta> (unknown) (no (unknown) (unknown) 01/26/22 19:40 (units (unknown) date) unknown) (unknown) (no (unknown) (unknown) 01/27/22 01:37 (units (unknown) date) unknown) (unknown) (no (unknown) (unknown) 01/27/22 0607 (units ( unknown) date) unknown) (unknown) (no (unknown) (unknown) Admin: 01/26/22 (units (unknown) date) 20:35 Dose: 1,000 unknown) mls/hr (unknown) (no (unknown) (unknown) Admin: 01/26/22 (units (unknown) date) 20:35 Dose: 200 unknown) mls/hr (unknown) (no (unknown) (unknown) Admin: 01/26/22 (units (unknown) date) 20:36 Dose: 1,000 unknown) mls/hr (unknown) (no (unknown) (unknown) Admin: 01/26/22 (units (unknown) date) 21:32 Dose: 200 unknown) mls/hr (unknown) (no (unknown) (unknown) Allergies (units (unkn own) date) unknown) (unknown) (no (unknown) (unknown) Documented By: KH (units (unknown) date) unknown) (unknown) (no (unknown) (unknown) Documented By: OW (units (unknown) date) unknown) (unknown) (no (unknown) (unknown) Documented By: ZGG (units (unknown) date) unknown) (unknown) (no (unknown) (unknown) ED Orders (units (unkn own) date) unknown) (unknown) (no (unknown) (unknown) Emergency Report (units (unknown) date) unknown) (unknown) (no (unknown) (unknown) Home Medications (units (unknown) date) unknown) (unknown) (no (unknown) (unknown) Infusion: 01/26/22 (units (unknown) date) 21:00 Dose: 0 mls/hr unknown) (unknown) (no (unknown) (unknown) [facility] [id number] (uni [address] (unknown) date) [address] unknown) [place] [address] (unknown) (no (unknown) (unknown) Lab Results (units (un known) date) unknown) (unknown) (no (unknown) (unknown) Last Admin: 01/26/22 (uni ts (unknown) date) 22:33 Dose: Not Given unknown) (unknown) (no (unknown) (unknown) Last Admin: 01/27/22 (uni ts (unknown) date) 00:28 Dose: 80 mg unknown) (unknown) (no (unknown) (unknown) Last Infusion: (units (unknown) date) 01/26/22 21:00 Dose: unknown) 200 mls/hr (unknown) (no (unknown) (unknown) Last Infusion: (units (unknown) date) 01/26/22 22:33 Dose: unknown) 0 mls/hr (unknown) (no (unknown) (unknown) Last Infusion: (units (unknown) date) 01/26/22 22:34 Dose: unknown) 0 mls/hr (unknown) (no (unknown) (unknown) PRN Reason: (units (un known) date) Fever/Mild Pain (1-3) unknown) (unknown) (no (unknown) (unknown) PRN Reason: (units (un known) date) Hypoglycemia unknown) (unknown) (no (unknown) (unknown) PRN Reason: Nausea (units (unknown) date) And Vomiting unknown) (unknown) (no (unknown) (unknown) PRN Reason: Pain, (units (unknown) date) Moderate (4-6) unknown) (unknown) (no (unknown) (unknown) Stop: 01/26/22 20:08 (uni ts (unknown) date) unknown) (unknown) (no (unknown) (unknown) Stop: 01/26/22 20:51 (uni ts (unknown) date) unknown) (unknown) (no (unknown) (unknown) Stop: 01/26/22 21:09 (uni ts (unknown) date) unknown) (unknown) (no (unknown) (unknown) Stop: 01/26/22 22:14 (uni ts (unknown) date) unknown) (unknown) (no (unknown) (unknown) Stop: 01/27/22 00:25 (uni ts (unknown) date) unknown) (unknown) (no (unknown) (unknown) Urine Dip (units (unkn own) date) unknown) (unknown) (no (unknown) (unknown) Vital Signs - 8 hr (units (unknown) date) unknown) (unknown) (no (unknown) (unknown) (no value) (units (unk nown) date) unknown) (unknown) (no (unknown) (unknown) 01/26/22 01/26/22 (units (unknown) date) 01/26/22 Range/Units unknown) (unknown) (no (unknown) (unknown) 19:40 19:40 19:40 (units (unknown) date) unknown) (unknown) (no (unknown) (unknown) 20:21 20:47 22:00 (units (unknown) date) unknown) (unknown) (no (unknown) (unknown) 01/26/22 (units (unkno wn) date) unknown) (unknown) (no (unknown) (unknown) 01/27/22 (units (unkno wn) date) unknown) (unknown) (no (unknown) (unknown) ABLA (acute blood (units (unknown) date) loss anemia), unknown) Hematoma of left knee region, Acute CHF, Acute (unknown) (no (unknown) (unknown) CT of the a lower (units (unknown) date) extremity in knee unknown) shows a large irregular medial soft tissue (unknown) (no (unknown) (unknown) He is weak, (units (un known) date) confused, cooperative unknown) he has an ortho glass splint on the medial (unknown) (no (unknown) (unknown) Medication (units (unk n) date) Instructions Recorded unknown) Confirmed (unknown) (no (unknown) (unknown) any also has skin (units (unknown) date) irritation and unknown) developing cellulitis in the left forearm with (unknown) (no (unknown) (unknown) catheterization and (unit s (unknown) date) had PCI of the distal unknown) right coronary artery and also found (unknown) (no (unknown) (unknown) deep (units (unkno wn) date) unknown) (unknown) (no (unknown) (unknown) dressings that (units (unknown) date) appear to been in unknown) place for a number of days and unchanged and (unknown) (no (unknown) (unknown) failure (units (unkno wn) date) unknown) (unknown) (no (unknown) (unknown) he was seen at (units (unknown) date) [facility] on unknown) January 23 and with a ground level fall (unknown) (no (unknown) (unknown) injuring his left (units (unknown) date) knee that had unknown) occurred on or about January 20. On the (unknown) (no (unknown) (unknown) into they large (units (unknown) date) hematoma on the unknown) medial aspect of the left knee. He does not (unknown) (no (unknown) (unknown) mg nightly and as (units (unknown) date) needed nitroglycerin. unknown) (unknown) (no (unknown) (unknown) suspect the acute (units (unknown) date) kidney injury is from unknown) volume loss is secondary to the blood (unknown) (no (unknown) (unknown) (Depo-Testosterone) (unit s (unknown) date) unknown) (unknown) (no (unknown) (unknown) (GLUCOPHAGE) (units (u nknown) date) unknown) (unknown) (no (unknown) (unknown) 00:00 (units (unkno wn) date) unknown) (unknown) (no (unknown) (unknown) 00:00 01/27/22 (units (unknown) date) unknown) (unknown) (no (unknown) (unknown) 00:15 01/27/22 (units (unknown) date) unknown) (unknown) (no (unknown) (unknown) 00:30 (units (unkno wn) date) unknown) (unknown) (no (unknown) (unknown) 00:30 01/27/22 (units (unknown) date) unknown) (unknown) (no (unknown) (unknown) 00:45 (units (unkno wn) date) unknown) (unknown) (no (unknown) (unknown) 00:45 01/27/22 (units (unknown) date) unknown) (unknown) (no (unknown) (unknown) 01/26/22 22:00 (units (unknown) date) unknown) (unknown) (no (unknown) (unknown) 1. Mildly hyperdense, (uni ts (unknown) date) irregular medial soft unknown) tissue mass without extension to the (unknown) (no (unknown) (unknown) 1. No CT evidence of (uni ts (unknown) date) acute intracranial unknown) process.? (unknown) (no (unknown) (unknown) 2. Age-appropriate (units (unknown) date) cerebral cortical unknown) volume loss and chronic microvascular (unknown) (no (unknown) (unknown) 2. No evidence of (units (unknown) date) underlying unknown) osteomyelitis. (unknown) (no (unknown) (unknown) 22:15 (units (unkno wn) date) unknown) (unknown) (no (unknown) (unknown) 22:15 01/26/ (units (unknown) date) unknown) (unknown) (no (unknown) (unknown) 22:30 (units (unkno wn) date) unknown) (unknown) (no (unknown) (unknown) 22:30 01/26/22 (units (unknown) date) unknown) (unknown) (no (unknown) (unknown) 22:35 01/26/22 (units (unknown) date) unknown) (unknown) (no (unknown) (unknown) 22:36 01/26/22 (units (unknown) date) unknown) (unknown) (no (unknown) (unknown) 22:45 (units (unkno wn) date) unknown) (unknown) (no (unknown) (unknown) 22:45 01/26/22 (units (unknown) date) unknown) (unknown) (no (unknown) (unknown) 22:50 01/26/22 (units (unknown) date) unknown) (unknown) (no (unknown) (unknown) 22:51 (units (unkno wn) date) unknown) (unknown) (no (unknown) (unknown) 23:00 01/26/22 (units (unknown) date) unknown) (unknown) (no (unknown) (unknown) 23:01 (units (unkno wn) date) unknown) (unknown) (no (unknown) (unknown) 23:01 01/26/22 (units (unknown) date) unknown) (unknown) (no (unknown) (unknown) 23:04 01/26/22 (units (unknown) date) unknown) (unknown) (no (unknown) (unknown) 23:07 01/26/22 (units (unknown) date) unknown) (unknown) (no (unknown) (unknown) 23:15 (units (unkno wn) date) unknown) (unknown) (no (unknown) (unknown) 23:15 01/26/22 (units (unknown) date) unknown) (unknown) (no (unknown) (unknown) 23:30 01/26/22 (units (unknown) date) unknown) (unknown) (no (unknown) (unknown) 23:45 (units (unkno wn) date) unknown) (unknown) (no (unknown) (unknown) 23:45 01/27/22 (units (unknown) date) unknown) (unknown) (no (unknown) (unknown) 3. 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 (unknown) (no (unknown) (unknown) 3. Very small (units ( unknown) date) nonspecific knee unknown) joint effusion.? (unknown) (no (unknown) (unknown) [id number] (units (unkno wn) date) unknown) (unknown) (no (unknown) (unknown) 76-year-old (units (un known) date) gentleman with a unknown) history of coronary artery disease post CABG x4, (unknown) (no (unknown) (unknown) 8.0 cm in AP (units (u nknown) date) diameter, and about unknown) 3.5 cm in thickness.? There is no extension (unknown) (no (unknown) (unknown) ? (units (unkno wn) date) unknown) (unknown) (no (unknown) (unknown) ALT (<50) IU/L (units (unknown) date) unknown) (unknown) (no (unknown) (unknown) ALT 27 (<50) IU/L (units (unknown) date) unknown) (unknown) (no (unknown) (unknown) AST (17-59) IU/L (units (unknown) date) unknown) (unknown) (no (unknown) (unknown) AST 28 (17-59) IU/L (unit s (unknown) date) unknown) (unknown) (no (unknown) (unknown) Abdomen: Soft, mild (unit s (unknown) date) distention but unknown) nontender, good bowel tones, no flank pain (unknown) (no (unknown) (unknown) Acetaminophen (units ( unknown) date) (Acetaminophen 325 Mg unknown) Tablet) 650 mg PO Q6HR PRN (unknown) (no (unknown) (unknown) Admit Date/Time: (units (unknown) date) 01/27/22 00:50 unknown) (unknown) (no (unknown) (unknown) Admit Provider: (units (unknown) date) Ese Holland unknown) (unknown) (no (unknown) (unknown) Age/Sex: 76 / M (units (unknown) date) unknown) (unknown) (no (unknown) (unknown) Albumin (3.5-5.0) (units (unknown) date) g/dL unknown) (unknown) (no (unknown) (unknown) Albumin 3.6 (units (un known) date) (3.5-5.0) g/dL unknown) (unknown) (no (unknown) (unknown) Albumin/Globulin (units (unknown) date) Ratio (1.0-2.8) unknown) (unknown) (no (unknown) (unknown) Albumin/Globulin (units (unknown) date) Ratio 1.0 (1.0-2.8) unknown) (unknown) (no (unknown) (unknown) Alkaline Phosphatase (uni ts (unknown) date) (38-126) U/L unknown) (unknown) (no (unknown) (unknown) Alkaline Phosphatase (uni ts (unknown) date) 170 H (38-126) U/L unknown) (unknown) (no (unknown) (unknown) Allergy/AdvReac Type (uni ts (unknown) date) Severity Reaction unknown) Status Date / Time (unknown) (no (unknown) (unknown) Anisocytosis (units (u nknown) date) unknown) (unknown) (no (unknown) (unknown) Anisocytosis 3+ H (units (unknown) date) unknown) (unknown) (no (unknown) (unknown) Anti-Inflamma (units ( unknown) date) disease unknown) (unknown) (no (unknown) (unknown) Antibody Screen (units (unknown) date) unknown) (unknown) (no (unknown) (unknown) Antibody Screen (units (unknown) date) Negative unknown) (unknown) (no (unknown) (unknown) Anticoagulated (units (unknown) date) unknown) (unknown) (no (unknown) (unknown) Atorvastatin Calcium (uni ts (unknown) date) (Atorvastatin 20 Mg unknown) Tablet) 40 mg PO BEDTIME LOBO (unknown) (no (unknown) (unknown) Atrial fibrillation (unit s (unknown) date) unknown) (unknown) (no (unknown) (unknown) Attestation: (units (u nknown) date) unknown) (unknown) (no (unknown) (unknown) January 06. 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 (unknown) (no (unknown) (unknown) BUN (9-20) mg/dL (units (unknown) date) unknown) (unknown) (no (unknown) (unknown) BUN 61 H (9-20) (units (unknown) date) mg/dL unknown) (unknown) (no (unknown) (unknown) BUN/Creatinine Ratio (uni ts (unknown) date) (6-22) unknown) (unknown) (no (unknown) (unknown) BUN/Creatinine Ratio (uni ts (unknown) date) 19.2 (6-22) unknown) (unknown) (no (unknown) (unknown) Baso # (Auto) (units ( unknown) date) (0-100) /uL unknown) (unknown) (no (unknown) (unknown) Baso # (Auto) 100 (units (unknown) date) (0-100) /uL unknown) (unknown) (no (unknown) (unknown) Baso % (Auto) (0-2) (unit s (unknown) date) % unknown) (unknown) (no (unknown) (unknown) Baso % (Auto) 1.0 (units (unknown) date) (0-2) % unknown) (unknown) (no (unknown) (unknown) Bedside Urine (units ( unknown) date) Bilirubin - Negative unknown) (unknown) (no (unknown) (unknown) Bedside Urine (units ( unknown) date) Glucose 500 mg/dl unknown) (unknown) (no (unknown) (unknown) Bedside Urine Ketone (uni ts (unknown) date) - Negative unknown) (unknown) (no (unknown) (unknown) Bedside Urine (units ( unknown) date) Leukocytes +/- 15 unknown) (unknown) (no (unknown) (unknown) Bedside Urine (units ( unknown) date) Nitrite - Negative unknown) (unknown) (no (unknown) (unknown) Bedside Urine Occult (uni ts (unknown) date) Blood +/- unknown) (unknown) (no (unknown) (unknown) Bedside Urine (units ( unknown) date) Protein - Negative unknown) (unknown) (no (unknown) (unknown) Bedside Urine (units ( unknown) date) Urobilinogen - unknown) Negative (unknown) (no (unknown) (unknown) Bedside Urine pH 5.5 (uni ts (unknown) date) unknown) (unknown) (no (unknown) (unknown) Blood Pressure (units (unknown) date) 103/52 L unknown) (unknown) (no (unknown) (unknown) Blood Pressure 78/54 (uni ts (unknown) date) L // 19:44 unknown) (unknown) (no (unknown) (unknown) Blood Pressure 95/53 (uni ts (unknown) date) L unknown) (unknown) (no (unknown) (unknown) Blood Pressure 95/55 (uni ts (unknown) date) L unknown) (unknown) (no (unknown) (unknown) Blood Pressure (units (unknown) date) 101/52 L 95/54 L unknown) (unknown) (no (unknown) (unknown) Blood Pressure (units (unknown) date) 102/53 L 109/57 L unknown) (unknown) (no (unknown) (unknown) Blood Pressure 95/55 (uni ts (unknown) date) L 98/52 L 98/52 L unknown) (unknown) (no (unknown) (unknown) Blood Pressure 96/53 (uni ts (unknown) date) L unknown) (unknown) (no (unknown) (unknown) Blood Pressure 97/52 (uni ts (unknown) date) L 101/54 L unknown) (unknown) (no (unknown) (unknown) Blood Pressure 97/52 (uni ts (unknown) date) L 102/53 L 92/51 L unknown) (unknown) (no (unknown) (unknown) Blood Pressure 98/52 (uni ts (unknown) date) L unknown) (unknown) (no (unknown) (unknown) Blood Type (units (unk nown) date) unknown) (unknown) (no (unknown) (unknown) Blood Type A (units (u nknown) date) Negative unknown) (unknown) (no (unknown) (unknown) Bones:? No (units (unk nown) date) fractures.? Normal unknown) bone alignment.? 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 No (units (unk nown) date) intracranial bleeds unknown) or masses.? There is cerebral volume loss for (unknown) (no (unknown) (unknown) CSF spaces:? Basal (units (unknown) date) cisterns are patent.? unknown) No extra-axial fluid collections.? The (unknown) (no (unknown) (unknown) CT Left lower (units ( unknown) date) extremity: unknown) (unknown) (no (unknown) (unknown) CT scan - head: (units (unknown) date) unknown) (unknown) (no (unknown) (unknown) Calcium (8.4-10.2) (units (unknown) date) mg/dL unknown) (unknown) (no (unknown) (unknown) Calcium 8.4 (units (un known) date) (8.4-10.2) mg/dL unknown) (unknown) (no (unknown) (unknown) Carbon Dioxide (units (unknown) date) (22-32) mmol/L unknown) (unknown) (no (unknown) (unknown) Carbon Dioxide 27 (units (unknown) date) (22-32) mmol/L unknown) (unknown) (no (unknown) (unknown) Cardiac: Regular (units (unknown) date) rate and rhythm no unknown) murmurs no bruits (unknown) (no (unknown) (unknown) Carvedilol (units (unk nown) date) (Carvedilol 12.5 Mg unknown) Tablet) 25 mg PO BID LOBO (unknown) (no (unknown) (unknown) Chief complaint: (units (unknown) date) Skin/Abscess/Foreign unknown) Body (unknown) (no (unknown) (unknown) Chloride (98-107) (units (unknown) date) mmol/L unknown) (unknown) (no (unknown) (unknown) Chloride 97 L (units ( unknown) date) (98-107) mmol/L unknown) (unknown) (no (unknown) (unknown) Clinical Impression: (uni ts (unknown) date) unknown) (unknown) (no (unknown) (unknown) Coronary artery (units (unknown) date) disease unknown) (unknown) (no (unknown) (unknown) Course (units (unkno wn) date) unknown) (unknown) (no (unknown) (unknown) Creatinine (units (unk nown) date) (0.66-1.25) mg/dL unknown) (unknown) (no (unknown) (unknown) Creatinine 3.18 H (units (unknown) date) (0.66-1.25) mg/dL unknown) (unknown) (no (unknown) (unknown) Critical Care Time (units (unknown) date) unknown) (unknown) (no (unknown) (unknown) Critical Care Time: (unit s (unknown) date) Yes unknown) (unknown) (no (unknown) (unknown) Critical care time (units (unknown) date) is separate from unknown) other billable procedures. There is a high (unknown) (no (unknown) (unknown) Crossmatch (units (unk nown) date) unknown) (unknown) (no (unknown) (unknown) Crossmatch See (units (unknown) date) Detail unknown) (unknown) (no (unknown) (unknown) : 1945 (units (unknown) date) Acct:[id number] unknown) (unknown) (no (unknown) (unknown) Departure (units (unkn own) date) unknown) (unknown) (no (unknown) (unknown) Dextrose (Dextrose (units (unknown) date) 50 % In Water 25 unknown) Gm/50 Ml Syringe) 25 gm IV PRN PRN (unknown) (no (unknown) (unknown) Diabetes (units (unkno wn) date) unknown) (unknown) (no (unknown) (unknown) Dictated by: Brittny Hwanguni ts (unknown) date) Carlos Moran on unknown) 01/26/2022 at 21:07 ? ? (unknown) (no (unknown) (unknown) Dictated by: Brittny Hwanguni ts (unknown) date) Carlos Moran on unknown) 01/26/2022 at 21:10 ? ? (unknown) (no (unknown) (unknown) Discharge Plan (units (unknown) date) unknown) (unknown) (no (unknown) (unknown) Discontinued (units (u nknown) date) Medications unknown) (unknown) (no (unknown) (unknown) Discussed with Brittany (units (unknown) date) Skyler hospitalist. unknown) Will admit. (unknown) (no (unknown) (unknown) Duloxetine HCl (units (unknown) date) (Duloxetine 30 Mg unknown) Capsule) 90 mg PO DAILY LOBO (unknown) (no (unknown) (unknown) Dyslipidemia (units (u nknown) date) unknown) (unknown) (no (unknown) (unknown) ECG Data (units (unkno wn) date) unknown) (unknown) (no (unknown) (unknown) ER Physician: (units ( unknown) date) Ashley Glynn MD unknown) (unknown) (no (unknown) (unknown) Eos # (Auto) (0-450) (uni ts (unknown) date) /uL unknown) (unknown) (no (unknown) (unknown) Eos # (Auto) 200 (units (unknown) date) (0-450) /uL unknown) (unknown) (no (unknown) (unknown) Eos % (Auto) (2-4) (unit s (unknown) date) % unknown) (unknown) (no (unknown) (unknown) Eos % (Auto) 2.8 (units (unknown) date) (2-4) % unknown) (unknown) (no (unknown) (unknown) Esterase (units (unkno wn) date) unknown) (unknown) (no (unknown) (unknown) Estimated GFR (>60) (unit s (unknown) date) mL/min unknown) (unknown) (no (unknown) (unknown) Estimated GFR 19 L (units (unknown) date) (>60) mL/min unknown) (unknown) (no (unknown) (unknown) Exam (units (unkno wn) date) unknown) (unknown) (no (unknown) (unknown) Extremities: Left (units (unknown) date) leg is described unknown) under the skin exam. Reasonable capillary (unknown) (no (unknown) (unknown) FINDINGS:? (units (unk nown) date) unknown) (unknown) (no (unknown) (unknown) Family History (units (unknown) date) (Updated 01/27/22 @ unknown) 04:05 by MEKA Mendoza) (unknown) (no (unknown) (unknown) Full and symmetrical (uni ts (unknown) date) air movement unknown) (unknown) (no (unknown) (unknown) Furosemide (units (unk nown) date) (Furosemide 100 Mg/10 unknown) Ml Vial) 80 mg IV NOW ONE (unknown) (no (unknown) (unknown) General (units (unkno wn) date) unknown) (unknown) (no (unknown) (unknown) General: Chronically (unit s (unknown) date) ill-appearing, pale, unknown) weak but in no acute distress. He is (unknown) (no (unknown) (unknown) GenericComposite[Plt (uni ts (unknown) date) Count (150-400) unknown) X10^3/uL ] (unknown) (no (unknown) (unknown) GenericComposite[Plt (uni ts (unknown) date) Count 206 (150-400) unknown) X10^3/uL ] (unknown) (no (unknown) (unknown) GenericComposite[RBC (uni ts (unknown) date) (4.5-5.9) X10^6/uL ] unknown) (unknown) (no (unknown) (unknown) GenericComposite[RBC (uni ts (unknown) date) 2.75 L (4.5-5.9) unknown) X10^6/uL ] (unknown) (no (unknown) (unknown) GenericComposite[WBC (uni ts (unknown) date) (4.5-11.0) X10^3/uL ] unknown) (unknown) (no (unknown) (unknown) GenericComposite[WBC (uni ts (unknown) date) 7.1 (4.5-11.0) unknown) X10^3/uL ] (unknown) (no (unknown) (unknown) Globulin (1.7-4.1) (units (unknown) date) g/dL unknown) (unknown) (no (unknown) (unknown) Globulin 3.5 (units (u nknown) date) (1.7-4.1) g/dL unknown) (unknown) (no (unknown) (unknown) Glucose (80-110) (units (unknown) date) mg/dL unknown) (unknown) (no (unknown) (unknown) Glucose 130 H (units ( unknown) date) (80-110) mg/dL unknown) (unknown) (no (unknown) (unknown) HEENT: Moist mucous (unit s (unknown) date) membranes, normal unknown) sclera with reactive pupils, pale mucous (unknown) (no (unknown) (unknown) HPI - General Adult (unit s (unknown) date) unknown) (unknown) (no (unknown) (unknown) HPI narrative: (units (unknown) date) unknown) (unknown) (no (unknown) (unknown) Have spoken with his (uni ts (unknown) date) son and medical unknown) records are now available for review. (unknown) (no (unknown) (unknown) Hct (41-53) % (units ( unknown) date) unknown) (unknown) (no (unknown) (unknown) Hct 20.8 L* (41-53) (unit s (unknown) date) % unknown) (unknown) (no (unknown) (unknown) He was admitted at (units (unknown) date) [facility] on January unknown) through January 13 for elective heart (unknown) (no (unknown) (unknown) [phone] decompensated heart (unknown) (no (unknown) (unknown) Hemoglobin A1c (units (unknown) date) (4.0-6.0) % unknown) (unknown) (no (unknown) (unknown) Hemoglobin A1c 6.5 H (uni ts (unknown) date) (4.0-6.0) % unknown) (unknown) (no (unknown) (unknown) Hgb (13.5-17.5) g/dL (uni ts (unknown) date) unknown) (unknown) (no (unknown) (unknown) Hgb 6.7 L* (units (unk nown) date) (13.5-17.5) g/dL unknown) (unknown) (no (unknown) (unknown) His son noted him to (uni ts (unknown) date) be increasingly weak unknown) this morning and he comes in (unknown) (no (unknown) (unknown) History of Present (units (unknown) date) Illness unknown) (unknown) (no (unknown) (unknown) Hx of (units (unkno wn) date) cholecystectomy unknown) (unknown) (no (unknown) (unknown) Hypertension (units (u nknown) date) unknown) (unknown) (no (unknown) (unknown) IMPRESSION:? (units (u nknown) date) unknown) (unknown) (no (unknown) (unknown) IV NOW ONE (units (unk nown) date) unknown) (unknown) (no (unknown) (unknown) Image quality:? (units (unknown) date) Excellent.? unknown) (unknown) (no (unknown) (unknown) Imaging Data (units (u nknown) date) unknown) (unknown) (no (unknown) (unknown) In the absence of (units (unknown) date) fever, leukocytosis, unknown) elevated lactic acid and alternative (unknown) (no (unknown) (unknown) Initial Vital Signs (unit s (unknown) date) unknown) (unknown) (no (unknown) (unknown) Initial Vital Signs: (uni ts (unknown) date) unknown) (unknown) (no (unknown) (unknown) Initial concern was (unit s (unknown) date) for sepsis and he was unknown) given Zosyn and vancomycin. As labs (unknown) (no (unknown) (unknown) Insulin Glargine (units (unknown) date) (Insulin Glargine 100 unknown) Unit/Ml 3ml Pen) 30 unit SUBCUT 0800 LOBO (unknown) (no (unknown) (unknown) Insulin Glargine (units (unknown) date) (Insulin Glargine 100 unknown) Unit/Ml 3ml Pen) 30 unit SUBCUT 2100 LOBO (unknown) (no (unknown) (unknown) Insulin Human Lispro (uni ts (unknown) date) (Insulin Lispro 100 unknown) Unit/Ml 3ml Vial) 0 unit SUBCUT ACHS (unknown) (no (unknown) (unknown) Interpretation: (units (unknown) date) unknown) (unknown) (no (unknown) (unknown) Lab Data (units (unkno wn) date) unknown) (unknown) (no (unknown) (unknown) Labs: (units (unkno wn) date) unknown) (unknown) (no (unknown) (unknown) Lactate (0.7-2.1) (units (unknown) date) mmol/L unknown) (unknown) (no (unknown) (unknown) Lactate 1.3 (units (un known) date) (0.7-2.1) mmol/L unknown) (unknown) (no (unknown) (unknown) Lipase (23-300) U/L (unit s (unknown) date) unknown) (unknown) (no (unknown) (unknown) Lipase 135 (23-300) (unit s (unknown) date) U/L unknown) (unknown) (no (unknown) (unknown) Lisinopril (units (unk nown) date) (Lisinopril 20 Mg unknown) Tablet) 40 mg PO DAILY LOBO (unknown) (no (unknown) (unknown) Lymph # (Auto) (units (unknown) date) (5333-2559) /uL unknown) (unknown) (no (unknown) (unknown) Lymph # (Auto) 800 L (uni ts (unknown) date) (9741-3895) /uL unknown) (unknown) (no (unknown) (unknown) Lymph % (Auto) (units (unknown) date) (25-40) % unknown) (unknown) (no (unknown) (unknown) Lymph % (Auto) 11.4 (unit s (unknown) date) L (25-40) % unknown) (unknown) (no (unknown) (unknown) MCH (26-34) PG (units (unknown) date) unknown) (unknown) (no (unknown) (unknown) MCH 24.6 L (26-34) (units (unknown) date) PG unknown) (unknown) (no (unknown) (unknown) MCHC (30-36) % (units (unknown) date) unknown) (unknown) (no (unknown) (unknown) MCHC 32.4 (30-36) % (unit s (unknown) date) unknown) (unknown) (no (unknown) (unknown) MCV (80-100) fL (units (unknown) date) unknown) (unknown) (no (unknown) (unknown) MCV 75.7 L (80-100) (unit s (unknown) date) fL unknown) (unknown) (no (unknown) (unknown) MDM Narrative (units ( unknown) date) unknown) (unknown) (no (unknown) (unknown) Magnesium (1.6-2.3) (unit s (unknown) date) mg/dL unknown) (unknown) (no (unknown) (unknown) Magnesium 1.7 (units ( unknown) date) (1.6-2.3) mg/dL unknown) (unknown) (no (unknown) (unknown) Medical Decision (units (unknown) date) Making unknown) (unknown) (no (unknown) (unknown) Medical History (units (unknown) date) (Reviewed 08/22/22 @ unknown) 04:05 by MEKA Mendoza) (unknown) (no (unknown) (unknown) Medical decision (units (unknown) date) making narrative: unknown) (unknown) (no (unknown) (unknown) Metformin (units (unkn own) date) Hydrochloride 1,275 unknown) mg PO BID ##0 07/08/12 (unknown) (no (unknown) (unknown) Lajas # (Auto) (units ( unknown) date) (0-900) /uL unknown) (unknown) (no (unknown) (unknown) Lajas # (Auto) 700 (units (unknown) date) (0-900) /uL unknown) (unknown) (no (unknown) (unknown) Lajas % (Auto) (3-14) (uni ts (unknown) date) % unknown) (unknown) (no (unknown) (unknown) [place] % (Auto) 9.8 (units (unknown) date) (3-14) % unknown) (unknown) (no (unknown) (unknown) NSAIDS (units (unkno wn) date) (Non-Steroidal unknown) AdvReac Severe kidney Verified 11/14/19 20:28 (unknown) (no (unknown) (unknown) NT-Pro-B Natriuret (units (unknown) date) Pep (<450) pg/mL unknown) (unknown) (no (unknown) (unknown) NT-Pro-B Natriuret (units (unknown) date) Pep 7170 H (<450) unknown) pg/mL (unknown) (no (unknown) (unknown) Neck: No JVD, supple (uni ts (unknown) date) unknown) (unknown) (no (unknown) (unknown) Neurologic: Globally (uni ts (unknown) date) weak but able to move unknown) all extremities (unknown) (no (unknown) (unknown) Neut # (Auto) (units ( unknown) date) (7522-1288) /uL unknown) (unknown) (no (unknown) (unknown) Neut # (Auto) 5400 (units (unknown) date) (9574-3661) /uL unknown) (unknown) (no (unknown) (unknown) Neut % (Auto) (units ( unknown) date) (50-75) % unknown) (unknown) (no (unknown) (unknown) Neut % (Auto) 75.0 (units (unknown) date) (50-75) % unknown) (unknown) (no (unknown) (unknown) ONE (units (unkno wn) date) unknown) (unknown) (no (unknown) (unknown) Ondansetron HCl (units (unknown) date) (Ondansetron 4 Mg/2 unknown) Ml Inj) 4 mg IV Q6HR PRN (unknown) (no (unknown) (unknown) Ordered: (units (unkno wn) date) unknown) (unknown) (no (unknown) (unknown) Orders (units (unkno wn) date) unknown) (unknown) (no (unknown) (unknown) Other Adopted (units ( unknown) date) unknown) (unknown) (no (unknown) (unknown) Oxygen Delivery (units (unknown) date) Method 01/26/22 19:44 unknown) (unknown) (no (unknown) (unknown) Patient Disposition: (uni ts (unknown) date) Admitted As Inpatient unknown) (unknown) (no (unknown) (unknown) Patient History (units (unknown) date) unknown) (unknown) (no (unknown) (unknown) Patient was (units (un known) date) discharged [facility] for acute congestive heart failure on (unknown) (no (unknown) (unknown) Patient: (units (unkno wn) date) Osmel Baxter Raeann MR#: unknown) M000 (unknown) (no (unknown) (unknown) Piperacillin (units (u nknown) date) Sod/Tazobactam (Sod unknown) 4.5 gm/ Sodium Chloride) 100 mls @ 200 mls/hr (unknown) (no (unknown) (unknown) Point of care (units ( unknown) date) testing: unknown) (unknown) (no (unknown) (unknown) Potassium (3.4-5.1) (unit s (unknown) date) mmol/L unknown) (unknown) (no (unknown) (unknown) Potassium 4.3 (units ( unknown) date) (3.4-5.1) mmol/L unknown) (unknown) (no (unknown) (unknown) Procalcitonin (<0.5) (uni ts (unknown) date) ng/mL unknown) (unknown) (no (unknown) (unknown) Procalcitonin 0.50 (units (unknown) date) (<0.5) ng/mL unknown) (unknown) (no (unknown) (unknown) Psych: Will respond (unit s (unknown) date) to yes or no unknown) questions but otherwise altered. (unknown) (no (unknown) (unknown) Pulse Oximetry (units (unknown) date) unknown) (unknown) (no (unknown) (unknown) Pulse Oximetry 99 (units (unknown) date) unknown) (unknown) (no (unknown) (unknown) Pulse Oximetry 100 (units (unknown) date) unknown) (unknown) (no (unknown) (unknown) Pulse Oximetry 89 L (unit s (unknown) date) 98 unknown) (unknown) (no (unknown) (unknown) Pulse Oximetry 97 (units (unknown) date) unknown) (unknown) (no (unknown) (unknown) Pulse Oximetry 97 (units (unknown) date) 01/26/22 19:44 unknown) (unknown) (no (unknown) (unknown) Pulse Oximetry 97 99 (uni ts (unknown) date) unknown) (unknown) (no (unknown) (unknown) Pulse Oximetry 100 (units (unknown) date) 99 unknown) (unknown) (no (unknown) (unknown) Pulse Oximetry 100 (units (unknown) date) 100 unknown) (unknown) (no (unknown) (unknown) Pulse Rate 60 (units ( unknown) date) unknown) (unknown) (no (unknown) (unknown) Pulse Rate 61 (units ( unknown) date) unknown) (unknown) (no (unknown) (unknown) Pulse Rate 61 62 (units (unknown) date) unknown) (unknown) (no (unknown) (unknown) Pulse Rate 63 (units ( unknown) date) unknown) (unknown) (no (unknown) (unknown) Pulse Rate 64 64 (units (unknown) date) unknown) (unknown) (no (unknown) (unknown) Pulse Rate 65 (units ( unknown) date) 01/26/22 19:44 unknown) (unknown) (no (unknown) (unknown) Pulse Rate 61 61 (units (unknown) date) unknown) (unknown) (no (unknown) (unknown) Pulse Rate 62 62 (units (unknown) date) unknown) (unknown) (no (unknown) (unknown) Pulse Rate 62 62 63 (unit s (unknown) date) unknown) (unknown) (no (unknown) (unknown) Pulse Rate 63 62 (units (unknown) date) unknown) (unknown) (no (unknown) (unknown) Pulse Rate 64 63 (units (unknown) date) unknown) (unknown) (no (unknown) (unknown) RBC Morphology (units (unknown) date) unknown) (unknown) (no (unknown) (unknown) RBC Morphology Not (units (unknown) date) Reportable unknown) (unknown) (no (unknown) (unknown) RDW (11.6-14.8) % (units (unknown) date) unknown) (unknown) (no (unknown) (unknown) RDW 24.5 H (units (unk nown) date) (11.6-14.8) % unknown) (unknown) (no (unknown) (unknown) ROS Unobtainable: (units (unknown) date) Unobtainable due to unknown) mental condition (unknown) (no (unknown) (unknown) Related Data (units (u nknown) date) unknown) (unknown) (no (unknown) (unknown) Respiratory Rate 21 (unit s (unknown) date) unknown) (unknown) (no (unknown) (unknown) Respiratory Rate 19 (unit s (unknown) date) unknown) (unknown) (no (unknown) (unknown) Respiratory Rate 20 (unit s (unknown) date) 21 unknown) (unknown) (no (unknown) (unknown) Respiratory Rate 20 (unit s (unknown) date) 26 H unknown) (unknown) (no (unknown) (unknown) Respiratory Rate 21 (unit s (unknown) date) unknown) (unknown) (no (unknown) (unknown) Respiratory Rate 21 (unit s (unknown) date) 01/26/22 19:44 unknown) (unknown) (no (unknown) (unknown) Respiratory Rate 12 (unit s (unknown) date) 18 18 unknown) (unknown) (no (unknown) (unknown) Respiratory Rate 14 (unit s (unknown) date) 13 unknown) (unknown) (no (unknown) (unknown) Respiratory Rate 15 (unit s (unknown) date) 18 unknown) (unknown) (no (unknown) (unknown) Respiratory Rate 17 (unit s (unknown) date) 19 unknown) (unknown) (no (unknown) (unknown) Respiratory Rate 20 (unit s (unknown) date) 24 unknown) (unknown) (no (unknown) (unknown) Respiratory: Lungs (unit s (unknown) date) are clear to unknown) auscultation, no wheezing no rales no rhonchi. 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 (unknown) (no (unknown) (unknown) Signed By: (units (unk nown) date) unknown) (unknown) (no (unknown) (unknown) Sinus rhythm, left (units (unknown) date) bundle-branch block, unknown) no acute ischemic changes, rate of 67 (unknown) (no (unknown) (unknown) Sinuses:? Mucosal (units (unknown) date) thickening and small unknown) fluid level in the left maxillary sinus.? (unknown) (no (unknown) (unknown) Skin: Pale, Warm and (uni ts (unknown) date) dry, multiple bruises unknown) some look like there from recent (unknown) (no (unknown) (unknown) Skull and face:? (units (unknown) date) Calvarium and unknown) visualized facial bones appear intact, without (unknown) (no (unknown) (unknown) Sleep apnea (units (un known) date) unknown) (unknown) (no (unknown) (unknown) Smoking Status: (units (unknown) date) Former smoker unknown) (unknown) (no (unknown) (unknown) Smoking Status: (units (unknown) date) Former smoker unknown) (unknown) (no (unknown) (unknown) Social History (units (unknown) date) (Updated 09/25/18 @ unknown) 11:17 by Telma Dickey DO) (unknown) (no (unknown) (unknown) Sodium (137-145) (units (unknown) date) mmol/L unknown) (unknown) (no (unknown) (unknown) Sodium 132 L (units (u nknown) date) (137-145) mmol/L unknown) (unknown) (no (unknown) (unknown) Sodium Chloride (units (unknown) date) (Normal Saline 0.9%) unknown) 1,000 mls @ 1,000 mls/hr IV BOLUS ONE (unknown) (no (unknown) (unknown) Soft tissues:? There (uni ts (unknown) date) are surgical clips in unknown) the medial leg.? In the medial leg, (unknown) (no (unknown) (unknown) Stated complaint: (units (unknown) date) Dementia unknown) (unknown) (no (unknown) (unknown) Substance Use Type: (unit s (unknown) date) does not use unknown) (unknown) (no (unknown) (unknown) Surgical History (units (unknown) date) (Updated 01/27/22 @ unknown) 04:28 by MEKA Mendoza) (unknown) (no (unknown) (unknown) Temperature (units (un known) date) unknown) (unknown) (no (unknown) (unknown) Temperature 97.7 F (units (unknown) date) 01/26/22 19:44 unknown) (unknown) (no (unknown) (unknown) Temperature 96.3 F L (uni ts (unknown) date) 96.8 F L 98.6 F unknown) (unknown) (no (unknown) (unknown) Temperature 96.8 F L (uni ts (unknown) date) 96.7 F L unknown) (unknown) (no (unknown) (unknown) There is a very (units (unknown) date) small hypodense joint unknown) effusion present.? Mild to moderate (unknown) (no (unknown) (unknown) This critical care (units (unknown) date) time includes unknown) consultation with family and other consulting (unknown) (no (unknown) (unknown) Time Seen by (units (u nknown) date) Provider: 01/26/22 unknown) 19:49 (unknown) (no (unknown) (unknown) Total Bilirubin (units (unknown) date) (0.2-1.3) mg/dL unknown) (unknown) (no (unknown) (unknown) Total Bilirubin 1.5 (unit s (unknown) date) H (0.2-1.3) mg/dL unknown) (unknown) (no (unknown) (unknown) Total Critical Care (unit s (unknown) date) Time: 36 unknown) (unknown) (no (unknown) (unknown) Total Protein (units ( unknown) date) (6.3-8.2) g/dL unknown) (unknown) (no (unknown) (unknown) Total Protein 7.1 (units (unknown) date) (6.3-8.2) g/dL unknown) (unknown) (no (unknown) (unknown) Tramadol HCl (units (u nknown) date) (Tramadol 50 Mg unknown) Tablet) 50 mg PO Q4H PRN (unknown) (no (unknown) (unknown) U-100 Insulin) (units (unknown) date) unknown) (unknown) (no (unknown) (unknown) Ur Culture (units (unk nown) date) Indicated? unknown) (unknown) (no (unknown) (unknown) Ur Culture (units (unk nown) date) Indicated? Specimen unknown) cultured (unknown) (no (unknown) (unknown) Urine Bacteria (units (unknown) date) (None) unknown) (unknown) (no (unknown) (unknown) Urine Bacteria Few (units (unknown) date) (2-10) H (None) unknown) (unknown) (no (unknown) (unknown) Urine Microscopic (units (unknown) date) Stat unknown) (unknown) (no (unknown) (unknown) Urine RBC (0-5/HPF) (unit s (unknown) date) unknown) (unknown) (no (unknown) (unknown) Urine RBC 0-1/hpf (units (unknown) date) (0-5/HPF) unknown) (unknown) (no (unknown) (unknown) Urine Specific (units (unknown) date) [place] 1.02 unknown) (unknown) (no (unknown) (unknown) Urine WBC (0-5/HPF) (unit s (unknown) date) unknown) (unknown) (no (unknown) (unknown) Urine WBC 30-100/hpf (uni ts (unknown) date) H (0-5/HPF) unknown) (unknown) (no (unknown) (unknown) Urine Yeast (None) (units (unknown) date) unknown) (unknown) (no (unknown) (unknown) Urine Yeast (units (un known) date) 30-100/hpf H (None) unknown) (unknown) (no (unknown) (unknown) VITAMIN D (Vitamin (units (unknown) date) D3) ##0 07/08/12 unknown) (unknown) (no (unknown) (unknown) Vancomycin HCl (units (unknown) date) (Vancomycin Per unknown) Pharmacy[place] [facility] [place] ([place]) (no (unknown) (unknown) Vancomycin (units (unk nown) date) HCl/Dextrose unknown) (Vancomycin) 1,500 mg in 300 mls @ 200 mls/hr IV NOW (unknown) (no (unknown) (unknown) Visualized sinuses (units (unknown) date) and mastoids are unknown) otherwise clear.? (unknown) (no (unknown) (unknown) Vital Signs (units (un known) date) unknown) (unknown) (no (unknown) (unknown) Vital signs: (units (u nknown) date) unknown) (unknown) (no (unknown) (unknown) Will give him 80 mg (unit s (unknown) date) of IV Lasix given his unknown) increased creatinine and usual oral (unknown) (no (unknown) (unknown) [Embedded Image Not (unit s (unknown) date) Available] unknown) (unknown) (no (unknown) (unknown) a med list that was (units (unknown) date) printed out from the unknown) end of December it looks like it could have (unknown) (no (unknown) (unknown) age, with (units (unkn own) date) unknown) (unknown) (no (unknown) (unknown) alcohol intake (units (unknown) date) frequency: unknown) holidays/special occasions only (unknown) (no (unknown) (unknown) allopurinol 100 mg (units (unknown) date) tablet 100 mg PO BID unknown) 11/15/19 11/15/19 (unknown) (no (unknown) (unknown) alteration in mental (uni ts (unknown) date) status, Acute kidney unknown) injury (unknown) (no (unknown) (unknown) and acute blood loss (uni ts (unknown) date) I do not believe this unknown) is sepsis. I have begun transfusion (unknown) (no (unknown) (unknown) articular (units (unkn own) date) involvement. unknown) (unknown) (no (unknown) (unknown) aspect of his left (units (unknown) date) lower leg that is unknown) abrading into the top of his foot and has a (unknown) (no (unknown) (unknown) aspirin 81 mg (units ( unknown) date) chewable tablet 81 mg unknown) PO QDAY ##0 07/08/12 11/15/19 (unknown) (no (unknown) (unknown) atherosclerotic (units (unknown) date) unknown) (unknown) (no (unknown) (unknown) atorvastatin 20 mg (units (unknown) date) tablet 20 mg PO DAILY unknown) 11/15/19 11/15/19 (unknown) (no (unknown) (unknown) been associated with (unit s (unknown) date) [facility] and looks like it may be from (unknown) (no (unknown) (unknown) calcification is (units (unknown) date) seen.? Mild unknown) circumferential soft tissue edema.? No significant (unknown) (no (unknown) (unknown) carbidopa 25 (units (u nknown) date) mg-levodopa 100 mg 1 unknown) tab PO BEDTIME RLS 11/15/19 11/15/19 (unknown) (no (unknown) (unknown) carotid artery (units (unknown) date) atherosclerosis.? unknown) (unknown) (no (unknown) (unknown) carvedilol 12.5 mg (units (unknown) date) tablet 12.5 mg PO BID unknown) 11/15/19 11/15/19 (unknown) (no (unknown) (unknown) cellulitis, but (units (unknown) date) abscess is not unknown) entirely excluded. (unknown) (no (unknown) (unknown) changes. ? (units (unk nown) date) unknown) (unknown) (no (unknown) (unknown) circumscribed (units ( unknown) date) subcutaneous mass unknown) measuring approximately 9.5 cm in craniocaudal (unknown) (no (unknown) (unknown) complaining of (units (unknown) date) dyspnea, chest pain unknown) appears to be more alert not complaining of (unknown) (no (unknown) (unknown) completely aware?. (units (unknown) date) No additional history unknown) is yet available available. There is (unknown) (no (unknown) (unknown) congestive heart (units (unknown) date) failure, history of unknown) B-cell lymphoma. his son called 911 today (unknown) (no (unknown) (unknown) creatinine change (units (unknown) date) from 1.63 on January unknown) to a creatinine of 3.18 today. Repeat (unknown) (no (unknown) (unknown) cyclobenzaprine 10 (units (unknown) date) mg tablet 10 mg PO unknown) TID 11/15/19 11/15/19 (unknown) (no (unknown) (unknown) details: x 9 (uni ts (unknown) date) months unknown) (unknown) (no (unknown) (unknown) developing mild (units (unknown) date) erythema. Left knee unknown) with a very large bulla/hematoma on the (unknown) (no (unknown) (unknown) diabetes. With this (unit s (unknown) date) admission he was unknown) noted to be ?a bright adult elderly (unknown) (no (unknown) (unknown) dimension, (units (unk nown) date) unknown) (unknown) (no (unknown) (unknown) discontinued (units (u nknown) date) reportedly no fevers unknown) chills new new injury or fall. He was seen (unknown) (no (unknown) (unknown) doctors, review of (units (unknown) date) records, and unknown) interpretation of data from labs, EKGs and (unknown) (no (unknown) (unknown) dose of 20 mg. At (units (unknown) date) this time his blood unknown) pressure has come up nicely, he is not (unknown) (no (unknown) (unknown) echocardiogram and (units (unknown) date) cardioversion for unknown) atrial fibrillation. Was discharged home (unknown) (no (unknown) (unknown) excoriation on the (units (unknown) date) medial aspect of his unknown) foot from the splint as well. (unknown) (no (unknown) (unknown) explanation for (units (unknown) date) hypotension given his unknown) significant bleeding into the left knee (unknown) (no (unknown) (unknown) fascia of (units (unkn own) date) unknown) (unknown) (no (unknown) (unknown) ferrous gluconate 324 (uni ts (unknown) date) mg, glargine insulin, unknown) metformin, omeprazole, Mirapex 0.125 (unknown) (no (unknown) (unknown) ferrous sulfate (units (unknown) date) Allergy Muscle Pain unknown) Verified 11/14/19 20:28 (unknown) (no (unknown) (unknown) fully assess. It (units (unknown) date) clearly is more than unknown) a couple of days old appears exacerbated (unknown) (no (unknown) (unknown) gabapentin Allergy (units (unknown) date) Confusion Verified unknown) 11/14/19 20:28 (unknown) (no (unknown) (unknown) gentleman? (units (unk nown) date) unknown) (unknown) (no (unknown) (unknown) has a piece of (units (unknown) date) fiberglass casting unknown) material extending from the medial malleolus (unknown) (no (unknown) (unknown) have a significantly (uni ts (unknown) date) elevated white blood unknown) cell count. He does have significant (unknown) (no (unknown) (unknown) he had a CT scan (units (unknown) date) that showed hematoma unknown) but no fractures his anticoagulation was (unknown) (no (unknown) (unknown) hematoma and likely (unit s (unknown) date) the source of acute unknown) blood loss (unknown) (no (unknown) (unknown) him as alert and (units (unknown) date) oriented x3 no acute unknown) distress. ER note says that a fiberglass (unknown) (no (unknown) (unknown) his son is involved (unit s (unknown) date) in his care. Will unknown) benefit from orthopedic consultation for (unknown) (no (unknown) (unknown) hospitalization and (unit s (unknown) date) some from his very unknown) frail skin. Area of excoriation on the (unknown) (no (unknown) (unknown) household members: (units (unknown) date) significant other unknown) (unknown) (no (unknown) (unknown) hydrochlorothiazide (unit s (unknown) date) 25 mg tablet 50 mg PO unknown) QDAY ##0 07/08/12 (unknown) (no (unknown) (unknown) hypertension, (units ( unknown) date) hyperlipidemia, unknown) diabetes, cognitive decline, hyperlipidemia, (unknown) (no (unknown) (unknown) hypotensive found to (unit s (unknown) date) be significantly unknown) anemic, presumably secondary to blood loss (unknown) (no (unknown) (unknown) if not caused from (units (unknown) date) the splint that had unknown) been in place. There is an area of (unknown) (no (unknown) (unknown) imaging as well as (units (unknown) date) managements of unknown) altered mental status, concern for severe (unknown) (no (unknown) (unknown) injector (Ozempic) (units (unknown) date) unknown) (unknown) (no (unknown) (unknown) insulin glargine 100 (uni ts (unknown) date) unit/mL 100 unit SQ unknown) DAILY ##0 07/08/12 11/15/19 (unknown) (no (unknown) (unknown) internal (units (unkno wn) date) unknown) (unknown) (no (unknown) (unknown) into the (units (unkno wn) date) unknown) (unknown) (no (unknown) (unknown) intramuscular oil (units (unknown) date) unknown) (unknown) (no (unknown) (unknown) involving the (units ( unknown) date) unknown) (unknown) (no (unknown) (unknown) is not in any pain (units (unknown) date) at this time. unknown) (unknown) (no (unknown) (unknown) ischemic (units (unkno wn) date) unknown) (unknown) (no (unknown) (unknown) knee pain and I (units (unknown) date) believe will be unknown) appropriate for admission to [facility]. I (unknown) (no (unknown) (unknown) lateral (units (unkno wn) date) compartment.? No unknown) suspicious periostitis. (unknown) (no (unknown) (unknown) left forearm with a (unit s (unknown) date) small area of unknown) ulceration without underlying abscess (unknown) (no (unknown) (unknown) lesions.? (units (unkn own) date) unknown) (unknown) (no (unknown) (unknown) level of the knee (units (unknown) date) joint, there is an unknown) irregular, slightly hyperdense, but non (unknown) (no (unknown) (unknown) lisinopril 20 mg (units (unknown) date) tablet 10 mg PO QDAY unknown) ##0 07/08/12 11/15/19 (unknown) (no (unknown) (unknown) long-leg posterior (units (unknown) date) splint was applied on unknown) arrival in the emergency department he (unknown) (no (unknown) (unknown) loss. He will need (units (unknown) date) close management of unknown) his congestive heart failure as well as (unknown) (no (unknown) (unknown) marital status: (units (unknown) date) unknown) (unknown) (no (unknown) (unknown) mass without (units (u nknown) date) extension to the unknown) underlying joint that clinically appears to be a (unknown) (no (unknown) (unknown) medial aspect it (units (unknown) date) does not appear to be unknown) intra-articular but it is difficult to (unknown) (no (unknown) (unknown) membranes (units (unkn own) date) unknown) (unknown) (no (unknown) (unknown) mg, allopurinol, (units (unknown) date) amiodarone 200 mg, unknown) atorvastatin 40 mg, duloxetine 30 mg, (unknown) (no (unknown) (unknown) mg/1.5 mL) (units (unk nown) date) subcutaneous pen unknown) (unknown) (no (unknown) (unknown) motion at the knee. (unit s (unknown) date) He also has a unknown) dressing in place on the left forearm with (unknown) (no (unknown) (unknown) multiple bruises all (unit s (unknown) date) over. He is pale but unknown) not complaining of headache. He will (unknown) (no (unknown) (unknown) near the (units (unkno wn) date) unknown) (unknown) (no (unknown) (unknown) not tachypneic and (units (unknown) date) is able to speak in unknown) full sentences (unknown) (no (unknown) (unknown) of 2 units of packed (uni ts (unknown) date) blood cells and he unknown) has responded nicely to the volume. (unknown) (no (unknown) (unknown) omeprazole 40 mg (units (unknown) date) capsule,delayed 40 mg unknown) PO DAILY ##0 07/08/12 11/15/19 (unknown) (no (unknown) (unknown) open his eyes to (units (unknown) date) command but not unknown) oriented to person time place it. He states he (unknown) (no (unknown) (unknown) overlying (units (unkn own) date) unknown) (unknown) (no (unknown) (unknown) oxycodone 10 mg (units (unknown) date) tablet,crush 10 mg PO unknown) BID 11/15/19 11/15/19 (unknown) (no (unknown) (unknown) paroxysmal atrial (units (unknown) date) fibrillation unknown) anticoagulated on rivaroxaban, post TAVR, (unknown) (no (unknown) (unknown) probability of a (units (unknown) date) significant, sudden unknown) or life-threatening deterioration that (unknown) (no (unknown) (unknown) recommendations on (units (unknown) date) management of the unknown) left knee external hematoma without intra- (unknown) (no (unknown) (unknown) refill both lower (units (unknown) date) extremities. unknown) (unknown) (no (unknown) (unknown) release (units (unkno wn) date) unknown) (unknown) (no (unknown) (unknown) remove the splint in (uni ts (unknown) date) 2-3 days. unknown) (unknown) (no (unknown) (unknown) requires my full and (uni ts (unknown) date) direct attention, unknown) intervention and personal management. (unknown) (no (unknown) (unknown) resistant,extended (units (unknown) date) release 12 hr unknown) (unknown) (no (unknown) (unknown) resultant ventricular (uni ts (unknown) date) and sulcal unknown) prominence.? There are mild periventricular and (unknown) (no (unknown) (unknown) return he is found (units (unknown) date) to be dramatically unknown) anemic with acute kidney injury with (unknown) (no (unknown) (unknown) rivaroxaban 20 mg (units (unknown) date) tablet (Xarelto) 20 unknown) mg PO DAILY 11/14/19 11/14/19 (unknown) (no (unknown) (unknown) semaglutide 0.25 mg (unit s (unknown) date) or 0.5 mg (2 0.25 mg unknown) SUBCUT QWEEK 11/15/19 11/15/19 (unknown) (no (unknown) (unknown) sepsis, congestive (units (unknown) date) heart failure and unknown) acute blood loss. 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 He does of his son (unknown) (no (unknown) (unknown) spironolactone 25 (units (unknown) date) mg, torsemide 20 mg, unknown) Jardiance, lisinopril 2.5 mg, Xarelto 15 (unknown) (no (unknown) (unknown) subcutaneous (units (u nknown) date) solution (Lantus unknown) (unknown) (no (unknown) (unknown) superiorly and (units (unknown) date) inferiorly. Was unknown) discharged with pain control instructions to (unknown) (no (unknown) (unknown) suspicious (units (unk nown) date) unknown) (unknown) (no (unknown) (unknown) tablet (units (unkno wn) date) unknown) (unknown) (no (unknown) (unknown) testosterone (units (u nknown) date) cypionate 200 mg/mL unknown) ##0 07/08/12 (unknown) (no (unknown) (unknown) the following day (units (unknown) date) with complaints of unknown) increasing pain. Physical exam describes (unknown) (no (unknown) (unknown) the vastus medialis (unit s (unknown) date) muscle. unknown) (unknown) (no (unknown) (unknown) thickening. (units (un known) date) unknown) (unknown) (no (unknown) (unknown) to have heart (units ( unknown) date) failure, paroxysmal unknown) atrial fibrillation, coronary disease, (unknown) (no (unknown) (unknown) to his son's house (units (unknown) date) on aspirin, unknown) clopidogrel, metoprolol succinate 50 mg, (unknown) (no (unknown) (unknown) to the distal knee, (unit s (unknown) date) not crossing any unknown) joint and causing significant irritation (unknown) (no (unknown) (unknown) unchecked. (units (unk nown) date) unknown) (unknown) (no (unknown) (unknown) underlying joint (units (unknown) date) space.? There might unknown) be slight thickening of the superficial (unknown) (no (unknown) (unknown) underlying joint.? (units (unknown) date) This is likely a unknown) hematoma or contusion given lack of (unknown) (no (unknown) (unknown) underlying skin (units (unknown) date) irritation shallow unknown) ulceration and developing cellulitis, (unknown) (no (unknown) (unknown) underwent PCI of the (uni ts (unknown) date) distal right coronary unknown) artery, had a transesophageal (unknown) (no (unknown) (unknown) ventricles are (units (unknown) date) symmetric in size and unknown) shape.? (unknown) (no (unknown) (unknown) ventricular ejection (uni ts (unknown) date) fraction at 15% with unknown) volume overload and tachycardia. He (unknown) (no (unknown) (unknown) white matter chronic (uni ts (unknown) date) small vessel ischemic unknown) changes.? There is intracranial (unknown) (no (unknown) (unknown) with concerns for (units (unknown) date) his overall unknown) well-being and concerned that ?times he is not (unknown) (no (unknown) (unknown) with bruising (units ( unknown) date) extending proximal unknown) and distal from his knee with minimal range of (unknown) (no (unknown) (unknown) zolpidem [From (units (unknown) date) Ambien] Allergy unknown) Confusion Verified 11/14/19 20:28 Result panel 45 (unknown) (no date) (unknown) (unknown) 0 /uL (unkn own) (unknown) (no date) (unknown) (unknown) 0.7 % (unkn own) (unknown) (no date) (unknown) (unknown) 164 X10 3/uL (unkn own) (unknown) (no date) (unknown) (unknown) 2.8 % (unkn own) (unknown) (no date) (unknown) (unknown) 200 /uL (unkn own) (unknown) (no date) (unknown) (unknown) 23.2 % (unkn own) (unknown) (no date) (unknown) (unknown) 24.9 % (unkn own) (unknown) (no date) (unknown) (unknown) 25.9 PG (unkn own) (unknown) (no date) (unknown) (unknown) 3.16 X10 6/uL (unkn own) (unknown) (no date) (unknown) (unknown) 32.9 % (unkn own) (unknown) (no date) (unknown) (unknown) 4600 /uL (unkn own) (unknown) (no date) (unknown) (unknown) 5.9 X10 3/uL (unkn own) (unknown) (no date) (unknown) (unknown) 500 /uL (unkn own) (unknown) (no date) (unknown) (unknown) 600 /uL (unkn own) (unknown) (no date) (unknown) (unknown) 78.2 % (unkn own) (unknown) (no date) (unknown) (unknown) 78.6 fL (unkn own) (unknown) (no date) (unknown) (unknown) 8.2 g/dL (unkn own) (unknown) (no date) (unknown) (unknown) 8.4 % (unkn own) (unknown) (no date) (unknown) (unknown) 9.9 % (unkn own) Result panel 46 (unknown) (no date) (unknown) (unknown) 0.9 (units unknown) (unknown) (unknown) (no date) (unknown) (unknown) 100 mmol/L (unkn own) (unknown) (no date) (unknown) (unknown) 133 mg/dL (unkn own) (unknown) (no date) (unknown) (unknown) 134 mmol/L (unkn own) (unknown) (no date) (unknown) (unknown) 144 U/L (unkn own) (unknown) (no date) (unknown) (unknown) 2.6 mg/dL (unkn own) (unknown) (no date) (unknown) (unknown) 2.67 mg/dL (unkn own) (unknown) (no date) (unknown) (unknown) 22.5 (units unknown) (unknown) (unknown) (no date) (unknown) (unknown) 23 IU/L (unkn own) (unknown) (no date) (unknown) (unknown) 24 mL/min (unkn own) (unknown) (no date) (unknown) (unknown) 25 mmol/L (unkn own) (unknown) (no date) (unknown) (unknown) 3.0 g/dL (unkn own) (unknown) (no date) (unknown) (unknown) 3.4 g/dL (unkn own) (unknown) (no date) (unknown) (unknown) 30 IU/L (unkn own) (unknown) (no date) (unknown) (unknown) 4.1 mmol/L (unkn own) (unknown) (no date) (unknown) (unknown) 6.4 g/dL (unkn own) (unknown) (no date) (unknown) (unknown) 60 mg/dL (unkn own) (unknown) (no date) (unknown) (unknown) 8.0 mg/dL (unkn own) Result panel 47 (unknown) (no date) (unknown) (unknown) 0 /uL (unkn own) (unknown) (no date) (unknown) (unknown) 0.7 % (unkn own) (unknown) (no date) (unknown) (unknown) 1+ (units unknown) (unknown) (unknown) (no date) (unknown) (unknown) 164 X10 3/uL (unkn own) (unknown) (no date) (unknown) (unknown) 2+ (units unknown) (unknown) (unknown) (no date) (unknown) (unknown) 2.8 % (unkn own) (unknown) (no date) (unknown) (unknown) 200 /uL (unkn own) (unknown) (no date) (unknown) (unknown) 23.2 % (unkn own) (unknown) (no date) (unknown) (unknown) 24.9 % (unkn own) (unknown) (no date) (unknown) (unknown) 25.9 PG (unkn own) (unknown) (no date) (unknown) (unknown) 3.16 X10 6/uL (unkn own) (unknown) (no date) (unknown) (unknown) 32.9 % (unkn own) (unknown) (no date) (unknown) (unknown) 4600 /uL (unkn own) (unknown) (no date) (unknown) (unknown) 5.9 X10 3/uL (unkn own) (unknown) (no date) (unknown) (unknown) 500 /uL (unkn own) (unknown) (no date) (unknown) (unknown) 600 /uL (unkn own) (unknown) (no date) (unknown) (unknown) 78.2 % (unkn own) (unknown) (no date) (unknown) (unknown) 78.6 fL (unkn own) (unknown) (no date) (unknown) (unknown) 8.2 g/dL (unkn own) (unknown) (no date) (unknown) (unknown) 8.4 % (unkn own) (unknown) (no date) (unknown) (unknown) 9.9 % (unkn own) Result panel 48 (unknown) (no (unknown) (unknown) (no value) (units (unk nown) date) unknown) (unknown) (no (unknown) (unknown) Date of Service: (units (unknown) date) 01/27/22 unknown) (unknown) (no (unknown) (unknown) (no value) (units (unk nown) date) unknown) (unknown) (no (unknown) (unknown) - (units (unkno wn) date) unknown) (unknown) (no (unknown) (unknown) 01/27/22 05:00 (units (unknown) date) unknown) (unknown) (no (unknown) (unknown) 01/27/22 [id number] (units ( unknown) date) unknown) (unknown) (no (unknown) (unknown) Allergies (units (unkn own) date) unknown) (unknown) (no (unknown) (unknown) Consult Note (units (u nknown) date) unknown) (unknown) (no (unknown) (unknown) Home Medications (units (unknown) date) unknown) (unknown) (no (unknown) (unknown) [facility] [id number] (unknown) date[address] unknown) [place] [address] (unknown) (no (unknown) (unknown) Laboratory Results - (uni ts (unknown) date) last 24 hr unknown) (unknown) (no (unknown) (unknown) (no value) (units (unk nown) date) unknown) (unknown) (no (unknown) (unknown) 01:37 05:00 05:00 (units (unknown) date) unknown) (unknown) (no (unknown) (unknown) 05:00 05:00 (units (un known) date) unknown) (unknown) (no (unknown) (unknown) 01/26/22 01/26/22 (units (unknown) date) 01/26/22 unknown) (unknown) (no (unknown) (unknown) 01/27/22 01/27/22 (units (unknown) date) unknown) (unknown) (no (unknown) (unknown) 01/27/22 01/27/22 (units (unknown) date) 01/27/22 unknown) (unknown) (no (unknown) (unknown) 19:40 19:40 19:40 (units (unknown) date) unknown) (unknown) (no (unknown) (unknown) 20:21 20:47 22:00 (units (unknown) date) unknown) (unknown) (no (unknown) (unknown) 01/27/22 (units (unkno wn) date) unknown) (unknown) (no (unknown) (unknown) I have dressed this (unit s (unknown) date) area with Xeroform unknown) and sterile gauze. I would recommend he (unknown) (no (unknown) (unknown) Light touch and (units (unknown) date) motion of the toes is unknown) intact. There is no surrounding (unknown) (no (unknown) (unknown) Medication (units (unk nown) date) Instructions Recorded unknown) Confirmed Type (unknown) (no (unknown) (unknown) be evaluated by a (units (unknown) date) av specialist unknown) to try to save this area of skin. I am (unknown) (no (unknown) (unknown) reluctant to drain (units (unknown) date) the underlying unknown) hematoma as the incision will place the skin (unknown) (no (unknown) (unknown) the time being. (units (unknown) date) Should he lose the unknown) central area of skin, he will need (unknown) (no (unknown) (unknown) (Depo-Testosterone) (unit s (unknown) date) unknown) (unknown) (no (unknown) (unknown) (GLUCOPHAGE) (units (u nknown) date) unknown) (unknown) (no (unknown) (unknown) (past 8 hours): (units (unknown) date) unknown) (unknown) (no (unknown) (unknown) 00:00 01/27/22 (units (unknown) date) unknown) (unknown) (no (unknown) (unknown) 00:15 (units (unkno wn) date) unknown) (unknown) (no (unknown) (unknown) 00:15 01/27/22 (units (unknown) date) unknown) (unknown) (no (unknown) (unknown) 00:30 (units (unkno wn) date) unknown) (unknown) (no (unknown) (unknown) 00:30 01/27/22 (units (unknown) date) unknown) (unknown) (no (unknown) (unknown) 00:45 01/27/22 (units (unknown) date) unknown) (unknown) (no (unknown) (unknown) 01:00 (units (unkno wn) date) unknown) (unknown) (no (unknown) (unknown) 01:01 01/27/22 (units (unknown) date) unknown) (unknown) (no (unknown) (unknown) 01:05 01/27/22 (units (unknown) date) unknown) (unknown) (no (unknown) (unknown) 01:35 (units (unkno wn) date) unknown) (unknown) (no (unknown) (unknown) 05:00 (units (unkno wn) date) unknown) (unknown) (no (unknown) (unknown) [id number] (units (unkno wn) date) unknown) (unknown) (no (unknown) (unknown) ALT (units (unkno wn) date) unknown) (unknown) (no (unknown) (unknown) ALT 23 (units (unkno wn) date) unknown) (unknown) (no (unknown) (unknown) ALT 27 (units (unkno wn) date) unknown) (unknown) (no (unknown) (unknown) AST (units (unkno wn) date) unknown) (unknown) (no (unknown) (unknown) AST 28 (units (unkno wn) date) unknown) (unknown) (no (unknown) (unknown) AST 30 (units (unkno wn) date) unknown) (unknown) (no (unknown) (unknown) Age/Sex: 76 / M (units (unknown) date) unknown) (unknown) (no (unknown) (unknown) Albumin (units (unkno wn) date) unknown) (unknown) (no (unknown) (unknown) Albumin 3.0 L (units ( unknown) date) unknown) (unknown) (no (unknown) (unknown) Albumin 3.6 (units (un known) date) unknown) (unknown) (no (unknown) (unknown) Albumin/Globulin (units (unknown) date) Ratio unknown) (unknown) (no (unknown) (unknown) Albumin/Globulin (units (unknown) date) Ratio 0.9 L unknown) (unknown) (no (unknown) (unknown) Albumin/Globulin (units (unknown) date) Ratio 1.0 unknown) (unknown) (no (unknown) (unknown) Alkaline Phosphatase (uni ts (unknown) date) unknown) (unknown) (no (unknown) (unknown) Alkaline Phosphatase (uni ts (unknown) date) 144 H unknown) (unknown) (no (unknown) (unknown) Alkaline Phosphatase (uni ts (unknown) date) 170 H unknown) (unknown) (no (unknown) (unknown) Allergy/AdvReac Type (uni ts (unknown) date) Severity Reaction unknown) Status Date / Time (unknown) (no (unknown) (unknown) Anisocytosis (units (u nknown) date) unknown) (unknown) (no (unknown) (unknown) Anisocytosis 2+ H (units (unknown) date) unknown) (unknown) (no (unknown) (unknown) Anisocytosis 3+ H (units (unknown) date) unknown) (unknown) (no (unknown) (unknown) Anti-Inflamma (units ( unknown) date) disease unknown) (unknown) (no (unknown) (unknown) Antibody Screen (units (unknown) date) unknown) (unknown) (no (unknown) (unknown) Antibody Screen (units (unknown) date) unknown) (unknown) (no (unknown) (unknown) Antibody Screen (units (unknown) date) Negative unknown) (unknown) (no (unknown) (unknown) Anticoagulated (units (unknown) date) unknown) (unknown) (no (unknown) (unknown) Assessment + Plan (units (unknown) date) unknown) (unknown) (no (unknown) (unknown) Assessment + Plan (units (unknown) date) narrative: unknown) (unknown) (no (unknown) (unknown) Atrial fibrillation (unit s (unknown) date) unknown) (unknown) (no (unknown) (unknown) BUN (units (unkno wn) date) unknown) (unknown) (no (unknown) (unknown) BUN 60 H (units (unkno wn) date) unknown) (unknown) (no (unknown) (unknown) BUN 61 H (units (unkno wn) date) unknown) (unknown) (no (unknown) (unknown) BUN/Creatinine Ratio (uni ts (unknown) date) unknown) (unknown) (no (unknown) (unknown) BUN/Creatinine Ratio (uni ts (unknown) date) 19.2 unknown) (unknown) (no (unknown) (unknown) BUN/Creatinine Ratio (uni ts (unknown) date) 22.5 H unknown) (unknown) (no (unknown) (unknown) Baso # (Auto) (units ( unknown) date) unknown) (unknown) (no (unknown) (unknown) Baso # (Auto) 0 (units (unknown) date) unknown) (unknown) (no (unknown) (unknown) Baso # (Auto) 100 (units (unknown) date) unknown) (unknown) (no (unknown) (unknown) Baso % (Auto) (units ( unknown) date) unknown) (unknown) (no (unknown) (unknown) Baso % (Auto) 0.7 (units (unknown) date) unknown) (unknown) (no (unknown) (unknown) Baso % (Auto) 1.0 (units (unknown) date) unknown) (unknown) (no (unknown) (unknown) Blood Pressure (units (unknown) date) 101/57 L 108/46 L unknown) (unknown) (no (unknown) (unknown) Blood Pressure (units (unknown) date) 103/52 L unknown) (unknown) (no (unknown) (unknown) Blood Pressure 95/54 (uni ts (unknown) date) L unknown) (unknown) (no (unknown) (unknown) Blood Pressure 96/34 (uni ts (unknown) date) L unknown) (unknown) (no (unknown) (unknown) Blood Pressure (units (unknown) date) 109/57 L 101/52 L unknown) (unknown) (no (unknown) (unknown) Blood Type (units (unk nown) date) unknown) (unknown) (no (unknown) (unknown) Blood Type (units (unk nown) date) unknown) (unknown) (no (unknown) (unknown) Blood Type A (units (u nknown) date) Negative unknown) (unknown) (no (unknown) (unknown) COVID-19 (units (unkno wn) date) unknown) (unknown) (no (unknown) (unknown) COVID-19 status: (units (unknown) date) Negative unknown) (unknown) (no (unknown) (unknown) CT scan obtained (units (unknown) date) last night is unknown) reviewed and independently interpreted today. (unknown) (no (unknown) (unknown) Calcium (units (unkno wn) date) unknown) (unknown) (no (unknown) (unknown) Calcium 8.0 L (units ( unknown) date) unknown) (unknown) (no (unknown) (unknown) Calcium 8.4 (units (un known) date) unknown) (unknown) (no (unknown) (unknown) Carbon Dioxide (units (unknown) date) unknown) (unknown) (no (unknown) (unknown) Carbon Dioxide 25 (units (unknown) date) unknown) (unknown) (no (unknown) (unknown) Carbon Dioxide 27 (units (unknown) date) unknown) (unknown) (no (unknown) (unknown) Chief complaint: (units (unknown) date) Dementia unknown) (unknown) (no (unknown) (unknown) Chloride (units (unkno wn) date) unknown) (unknown) (no (unknown) (unknown) Chloride 100 (units (u nknown) date) unknown) (unknown) (no (unknown) (unknown) Chloride 97 L (units ( unknown) date) unknown) (unknown) (no (unknown) (unknown) Consult details (units (unknown) date) unknown) (unknown) (no (unknown) (unknown) Coronary artery (units (unknown) date) disease unknown) (unknown) (no (unknown) (unknown) Creatinine (units (unk nown) date) unknown) (unknown) (no (unknown) (unknown) Creatinine 2.67 H (units (unknown) date) unknown) (unknown) (no (unknown) (unknown) Creatinine 3.18 H (units (unknown) date) unknown) (unknown) (no (unknown) (unknown) Critical Care time: (unit s (unknown) date) unknown) (unknown) (no (unknown) (unknown) Crossmatch (units (unk nown) date) unknown) (unknown) (no (unknown) (unknown) Crossmatch (units (unk nown) date) unknown) (unknown) (no (unknown) (unknown) Crossmatch See (units (unknown) date) Detail unknown) (unknown) (no (unknown) (unknown) : 1945 (units (unknown) date) Acct:[id number] unknown) (unknown) (no (unknown) (unknown) Date Patient Seen: (units (unknown) date) 01/27/22 unknown) (unknown) (no (unknown) (unknown) Diabetes (units (unkno wn) date) unknown) (unknown) (no (unknown) (unknown) Dyslipidemia (units (u nknown) date) unknown) (unknown) (no (unknown) (unknown) Eos # (Auto) (units (u nknown) date) unknown) (unknown) (no (unknown) (unknown) Eos # (Auto) 200 (units (unknown) date) unknown) (unknown) (no (unknown) (unknown) Eos # (Auto) 200 (units (unknown) date) unknown) (unknown) (no (unknown) (unknown) Eos % (Auto) (units (u nknown) date) unknown) (unknown) (no (unknown) (unknown) Eos % (Auto) 2.8 (units (unknown) date) unknown) (unknown) (no (unknown) (unknown) Eos % (Auto) 2.8 (units (unknown) date) unknown) (unknown) (no (unknown) (unknown) Estimated GFR (units ( unknown) date) unknown) (unknown) (no (unknown) (unknown) Estimated GFR 19 L (units (unknown) date) unknown) (unknown) (no (unknown) (unknown) Estimated GFR 24 L (units (unknown) date) unknown) (unknown) (no (unknown) (unknown) Exam (units (unkno wn) date) unknown) (unknown) (no (unknown) (unknown) Exam Narrative: (units (unknown) date) unknown) (unknown) (no (unknown) (unknown) Family History (units (unknown) date) (Reviewed 01/27/22 @ unknown) 07:53 by Tony Aceves MD) (unknown) (no (unknown) (unknown) Globulin (units (unkno wn) date) unknown) (unknown) (no (unknown) (unknown) Globulin 3.4 (units (u nknown) date) unknown) (unknown) (no (unknown) (unknown) Globulin 3.5 (units (u nknown) date) unknown) (unknown) (no (unknown) (unknown) Glucose (units (unkno wn) date) unknown) (unknown) (no (unknown) (unknown) Glucose 130 H (units ( unknown) date) unknown) (unknown) (no (unknown) (unknown) Glucose 133 H (units ( unknown) date) unknown) (unknown) (no (unknown) (unknown) Hct (units (unkno wn) date) unknown) (unknown) (no (unknown) (unknown) Hct 20.8 L* (units (un known) date) unknown) (unknown) (no (unknown) (unknown) Hct 24.5 L (units (unk nown) date) unknown) (unknown) (no (unknown) (unknown) Hct 24.9 L (units (unk nown) date) unknown) (unknown) (no (unknown) (unknown) Hemoglobin A1c (units (unknown) date) unknown) (unknown) (no (unknown) (unknown) Hemoglobin A1c (units (unknown) date) unknown) (unknown) (no (unknown) (unknown) Hemoglobin A1c 6.5 H (uni ts (unknown) date) unknown) (unknown) (no (unknown) (unknown) Hgb (units (unkno wn) date) unknown) (unknown) (no (unknown) (unknown) Hgb 6.7 L* (units (unk nown) date) unknown) (unknown) (no (unknown) (unknown) Hgb 7.9 L (units (unkn own) date) unknown) (unknown) (no (unknown) (unknown) Hgb 8.2 L (units (unkn own) date) unknown) (unknown) (no (unknown) (unknown) History (units (unkno wn) date) unknown) (unknown) (no (unknown) (unknown) History of Present (units (unknown) date) Illness unknown) (unknown) (no (unknown) (unknown) Home Medications and (uni ts (unknown) date) Allergies unknown) (unknown) (no (unknown) (unknown) Hx of (units (unkno wn) date) cholecystectomy unknown) (unknown) (no (unknown) (unknown) Hypertension (units (u nknown) date) unknown) (unknown) (no (unknown) (unknown) I spent a total of (units (unknown) date) [] minutes of unknown) critical care time on this patient's care (unknown) (no (unknown) (unknown) INR (units (unkno wn) date) unknown) (unknown) (no (unknown) (unknown) INR (units (unkno wn) date) unknown) (unknown) (no (unknown) (unknown) INR 1.2 (units (unkno wn) date) unknown) (unknown) (no (unknown) (unknown) Labs (units (unkno wn) date) unknown) (unknown) (no (unknown) (unknown) Labs: (units (unkno wn) date) unknown) (unknown) (no (unknown) (unknown) Lactate (units (unkno wn) date) unknown) (unknown) (no (unknown) (unknown) Lactate (units (unkno wn) date) unknown) (unknown) (no (unknown) (unknown) Lactate 1.3 (units (un known) date) unknown) (unknown) (no (unknown) (unknown) Left knee is (units (u nknown) date) examined. There is unknown) prominent swelling medial to the knee with an (unknown) (no (unknown) (unknown) Lipase (units (unkno wn) date) unknown) (unknown) (no (unknown) (unknown) Lipase (units (unkno wn) date) unknown) (unknown) (no (unknown) (unknown) Lipase 135 (units (unk nown) date) unknown) (unknown) (no (unknown) (unknown) Lymph # (Auto) (units (unknown) date) unknown) (unknown) (no (unknown) (unknown) Lymph # (Auto) 600 L (uni ts (unknown) date) unknown) (unknown) (no (unknown) (unknown) Lymph # (Auto) 800 L (uni ts (unknown) date) unknown) (unknown) (no (unknown) (unknown) Lymph % (Auto) (units (unknown) date) unknown) (unknown) (no (unknown) (unknown) Lymph % (Auto) 11.4 (unit s (unknown) date) L unknown) (unknown) (no (unknown) (unknown) Lymph % (Auto) 9.9 L (uni ts (unknown) date) unknown) (unknown) (no (unknown) (unknown) MCH (units (unkno wn) date) unknown) (unknown) (no (unknown) (unknown) MCH 24.6 L (units (unk nown) date) unknown) (unknown) (no (unknown) (unknown) MCH 25.9 L (units (unk nown) date) unknown) (unknown) (no (unknown) (unknown) MCHC (units (unkno wn) date) unknown) (unknown) (no (unknown) (unknown) MCHC 32.4 (units (unkn own) date) unknown) (unknown) (no (unknown) (unknown) MCHC 32.9 (units (unkn own) date) unknown) (unknown) (no (unknown) (unknown) MCV (units (unkno wn) date) unknown) (unknown) (no (unknown) (unknown) MCV 75.7 L (units (unk nown) date) unknown) (unknown) (no (unknown) (unknown) MCV 78.6 L (units (unk nown) date) unknown) (unknown) (no (unknown) (unknown) Magnesium (units (unkn own) date) unknown) (unknown) (no (unknown) (unknown) Magnesium (units (unkn own) date) unknown) (unknown) (no (unknown) (unknown) Magnesium 1.5 L (units (unknown) date) unknown) (unknown) (no (unknown) (unknown) Magnesium 1.7 (units ( unknown) date) unknown) (unknown) (no (unknown) (unknown) Medical History (units (unknown) date) (Reviewed 01/27/22 @ unknown) 07:53 by Tony Aceves MD) (unknown) (no (unknown) (unknown) Meds (units (unkno wn) date) unknown) (unknown) (no (unknown) (unknown) Metformin (units (unkn own) date) Hydrochloride 1,275 unknown) mg PO BID ##0 07/08/12 History (unknown) (no (unknown) (unknown) Lajas # (Auto) (units ( unknown) date) unknown) (unknown) (no (unknown) (unknown) Lajas # (Auto) 500 (units (unknown) date) unknown) (unknown) (no (unknown) (unknown) Lajas # (Auto) 700 (units (unknown) date) unknown) (unknown) (no (unknown) (unknown) Lajas % (Auto) (units ( unknown) date) unknown) (unknown) (no (unknown) (unknown) Lajas % (Auto) 8.4 (units (unknown) date) unknown) (unknown) (no (unknown) (unknown) Lajas % (Auto) 9.8 (units (unknown) date) unknown) (unknown) (no (unknown) (unknown) NSAIDS (units (unkno wn) date) (Non-Steroidal unknown) AdvReac Severe kidney Verified 11/14/19 20:28 (unknown) (no (unknown) (unknown) NT-Pro-B Natriuret (units (unknown) date) Pep unknown) (unknown) (no (unknown) (unknown) NT-Pro-B Natriuret (units (unknown) date) Pep unknown) (unknown) (no (unknown) (unknown) NT-Pro-B Natriuret (units (unknown) date) Pep 7170 H unknown) (unknown) (no (unknown) (unknown) Narrative (units (unkn own) date) unknown) (unknown) (no (unknown) (unknown) Narrative: (units (unk nown) date) unknown) (unknown) (no (unknown) (unknown) Neut # (Auto) (units ( unknown) date) unknown) (unknown) (no (unknown) (unknown) Neut # (Auto) 4600 (units (unknown) date) unknown) (unknown) (no (unknown) (unknown) Neut # (Auto) 5400 (units (unknown) date) unknown) (unknown) (no (unknown) (unknown) Neut % (Auto) (units ( unknown) date) unknown) (unknown) (no (unknown) (unknown) Neut % (Auto) 75.0 (units (unknown) date) unknown) (unknown) (no (unknown) (unknown) Neut % (Auto) 78.2 H (uni ts (unknown) date) unknown) (unknown) (no (unknown) (unknown) Objective (units (unkn own) date) unknown) (unknown) (no (unknown) (unknown) Other Adopted (units ( unknown) date) unknown) (unknown) (no (unknown) (unknown) Oxygen Delivery (units (unknown) date) Method unknown) (unknown) (no (unknown) (unknown) Oxygen Delivery (units (unknown) date) Method Room Air unknown) (unknown) (no (unknown) (unknown) Oxygen Delivery (units (unknown) date) Method Room Air unknown) (unknown) (no (unknown) (unknown) Oxygen Flow Rate (units (unknown) date) unknown) (unknown) (no (unknown) (unknown) Oxygen Flow Rate 0 (units (unknown) date) unknown) (unknown) (no (unknown) (unknown) Oxygen Flow Rate 0 (units (unknown) date) unknown) (unknown) (no (unknown) (unknown) Oxygen Flow Rate 0 (units (unknown) date) unknown) (unknown) (no (unknown) (unknown) PFSH (units (unkno wn) date) unknown) (unknown) (no (unknown) (unknown) PT (units (unkno wn) date) unknown) (unknown) (no (unknown) (unknown) PT (units (unkno wn) date) unknown) (unknown) (no (unknown) (unknown) PT 14.1 H (units (unkn own) date) unknown) (unknown) (no (unknown) (unknown) Patient: (units (unkno wn) date) Osmel Baxter MR#: unknown) M000 (unknown) (no (unknown) (unknown) Plt Count (units (unkn own) date) unknown) (unknown) (no (unknown) (unknown) Plt Count 164 (units ( unknown) date) unknown) (unknown) (no (unknown) (unknown) Plt Count 206 (units ( unknown) date) unknown) (unknown) (no (unknown) (unknown) Poikilocytosis (units (unknown) date) unknown) (unknown) (no (unknown) (unknown) Poikilocytosis 1+ H (unit s (unknown) date) unknown) (unknown) (no (unknown) (unknown) Potassium (units (unkn own) date) unknown) (unknown) (no (unknown) (unknown) Potassium 4.1 (units ( unknown) date) unknown) (unknown) (no (unknown) (unknown) Potassium 4.3 (units ( unknown) date) unknown) (unknown) (no (unknown) (unknown) Procalcitonin (units ( unknown) date) unknown) (unknown) (no (unknown) (unknown) Procalcitonin (units ( unknown) date) unknown) (unknown) (no (unknown) (unknown) Procalcitonin 0.50 (units (unknown) date) unknown) (unknown) (no (unknown) (unknown) Provider: (units (unkn own) date) Tony Aceves MD unknown) (unknown) (no (unknown) (unknown) Pulse Oximetry 99 (units (unknown) date) unknown) (unknown) (no (unknown) (unknown) Pulse Oximetry 99 (units (unknown) date) unknown) (unknown) (no (unknown) (unknown) Pulse Oximetry 100 (units (unknown) date) 100 unknown) (unknown) (no (unknown) (unknown) Pulse Rate 60 (units ( unknown) date) unknown) (unknown) (no (unknown) (unknown) Pulse Rate 61 (units ( unknown) date) unknown) (unknown) (no (unknown) (unknown) Pulse Rate 61 58 L (units (unknown) date) unknown) (unknown) (no (unknown) (unknown) Pulse Rate 61 61 (units (unknown) date) unknown) (unknown) (no (unknown) (unknown) Pulse Rate 61 62 (units (unknown) date) unknown) (unknown) (no (unknown) (unknown) RBC (units (unkno wn) date) unknown) (unknown) (no (unknown) (unknown) RBC 2.75 L (units (unk nown) date) unknown) (unknown) (no (unknown) (unknown) RBC 3.16 L (units (unk nown) date) unknown) (unknown) (no (unknown) (unknown) RBC Morphology (units (unknown) date) unknown) (unknown) (no (unknown) (unknown) RBC Morphology Not (units (unknown) date) Reportable unknown) (unknown) (no (unknown) (unknown) RBC Morphology Not (units (unknown) date) Reportable unknown) (unknown) (no (unknown) (unknown) RDW (units (unkno wn) date) unknown) (unknown) (no (unknown) (unknown) RDW 23.2 H (units (unk nown) date) unknown) (unknown) (no (unknown) (unknown) RDW 24.5 H (units (unk nown) date) unknown) (unknown) (no (unknown) (unknown) Reason for consult: (unit s (unknown) date) Left knee unknown) subcutaneous hematoma (unknown) (no (unknown) (unknown) Respiratory Rate 15 (unit s (unknown) date) unknown) (unknown) (no (unknown) (unknown) Respiratory Rate 21 (unit s (unknown) date) unknown) (unknown) (no (unknown) (unknown) Respiratory Rate 18 (unit s (unknown) date) 12 unknown) (unknown) (no (unknown) (unknown) Respiratory Rate 19 (unit s (unknown) date) 17 unknown) (unknown) (no (unknown) (unknown) Respiratory Rate 19 (unit s (unknown) date) 22 unknown) (unknown) (no (unknown) (unknown) Result Diagrams: (units (unknown) date) unknown) (unknown) (no (unknown) (unknown) Result date/Date (units (unknown) date) tested (Pos, unknown) Neg/Pending): 01/26/22 (unknown) (no (unknown) (unknown) Review of Systems (units (unknown) date) unknown) (unknown) (no (unknown) (unknown) Review of systems is (uni ts (unknown) date) not obtainable today. 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) (unknown) (no (unknown) (unknown) SARS-CoV-2 (PCR) (units (unknown) date) unknown) (unknown) (no (unknown) (unknown) SARS-CoV-2 (PCR) (units (unknown) date) unknown) (unknown) (no (unknown) (unknown) SARS-CoV-2 (PCR) (units (unknown) date) Negative unknown) (unknown) (no (unknown) (unknown) Signed (units (unkno wn) date) By:<Electronically unknown) signed by Tony Aceves MD> (unknown) (no (unknown) (unknown) Sleep apnea (units (un known) date) unknown) (unknown) (no (unknown) (unknown) Smoking Status: (units (unknown) date) Former smoker unknown) (unknown) (no (unknown) (unknown) Social History (units (unknown) date) unknown) (unknown) (no (unknown) (unknown) Sodium (units (unkno wn) date) unknown) (unknown) (no (unknown) (unknown) Sodium 132 L (units (u nknown) date) unknown) (unknown) (no (unknown) (unknown) Sodium 134 L (units (u nknown) date) unknown) (unknown) (no (unknown) (unknown) Surgical History (units (unknown) date) (Reviewed 01/27/22 @ unknown) 07:53 by Tony Aceves MD) (unknown) (no (unknown) (unknown) Temperature (units (un known) date) unknown) (unknown) (no (unknown) (unknown) Temperature 98.1 F (units (unknown) date) unknown) (unknown) (no (unknown) (unknown) Temperature 97.0 F L (uni ts (unknown) date) unknown) (unknown) (no (unknown) (unknown) The patient is a (units (unknown) date) 76-year-old man who unknown) was recently seen at [facility] (unknown) (no (unknown) (unknown) The patient is a (units (unknown) date) 76-year-old man with unknown) baseline anticoagulation who has had the (unknown) (no (unknown) (unknown) There is an (units (un known) date) extra-articular unknown) subcutaneous hematoma evident. There is no (unknown) (no (unknown) (unknown) This is darkly purple (uni ts (unknown) date) underneath. Motion of unknown) the knee is painful. Calf is soft. (unknown) (no (unknown) (unknown) Time Patient Seen: (units (unknown) date) 07:35 unknown) (unknown) (no (unknown) (unknown) Time Spent With (units (unknown) date) Patient unknown) (unknown) (no (unknown) (unknown) Time with patient: (units (unknown) date) less than 30 minutes unknown) (unknown) (no (unknown) (unknown) Tobacco + Substance (unit s (unknown) date) Use unknown) (unknown) (no (unknown) (unknown) Total Bilirubin (units (unknown) date) unknown) (unknown) (no (unknown) (unknown) Total Bilirubin 1.5 (unit s (unknown) date) H unknown) (unknown) (no (unknown) (unknown) Total Bilirubin 2.6 (unit s (unknown) date) H unknown) (unknown) (no (unknown) (unknown) Total Protein (units ( unknown) date) unknown) (unknown) (no (unknown) (unknown) Total Protein 6.4 (units (unknown) date) unknown) (unknown) (no (unknown) (unknown) Total Protein 7.1 (units (unknown) date) unknown) (unknown) (no (unknown) (unknown) U-100 Insulin) (units (unknown) date) unknown) (unknown) (no (unknown) (unknown) Ur Culture (units (unk nown) date) Indicated? unknown) (unknown) (no (unknown) (unknown) Ur Culture (units (unk nown) date) Indicated? unknown) (unknown) (no (unknown) (unknown) Ur Culture (units (unk nown) date) Indicated? Specimen unknown) cultured (unknown) (no (unknown) (unknown) Urine Bacteria (units (unknown) date) unknown) (unknown) (no (unknown) (unknown) Urine Bacteria (units (unknown) date) unknown) (unknown) (no (unknown) (unknown) Urine Bacteria Few (units (unknown) date) (2-10) H unknown) (unknown) (no (unknown) (unknown) Urine RBC (units (unkn own) date) unknown) (unknown) (no (unknown) (unknown) Urine RBC (units (unkn own) date) unknown) (unknown) (no (unknown) (unknown) Urine RBC 0-1/hpf (units (unknown) date) unknown) (unknown) (no (unknown) (unknown) Urine WBC (units (unkn own) date) unknown) (unknown) (no (unknown) (unknown) Urine WBC (units (unkn own) date) unknown) (unknown) (no (unknown) (unknown) Urine WBC 30-100/hpf (uni ts (unknown) date) H unknown) (unknown) (no (unknown) (unknown) Urine Yeast (units (un known) date) unknown) (unknown) (no (unknown) (unknown) Urine Yeast (units (un known) date) unknown) (unknown) (no (unknown) (unknown) Urine Yeast (units (un known) date) 30-100/hpf H unknown) (unknown) (no (unknown) (unknown) VITAMIN D (Vitamin (units (unknown) date) D3) ##0 07/08/12 unknown) History (unknown) (no (unknown) (unknown) Vital Signs (units (un known) date) unknown) (unknown) (no (unknown) (unknown) WBC (units (unkno wn) date) unknown) (unknown) (no (unknown) (unknown) WBC 5.9 (units (unkno wn) date) unknown) (unknown) (no (unknown) (unknown) WBC 7.1 (units (unkno wn) date) unknown) (unknown) (no (unknown) (unknown) [Embedded Image Not (unit s (unknown) date) Available] unknown) (unknown) (no (unknown) (unknown) allopurinol 100 mg (units (unknown) date) tablet 100 mg PO BID unknown) 11/15/19 11/15/19 History (unknown) (no (unknown) (unknown) approximately 4 x 8 (unit s (unknown) date) cm area of unknown) epidermolysis in the center of the swollen area. (unknown) (no (unknown) (unknown) aspirin 81 mg (units ( unknown) date) chewable tablet 81 mg unknown) PO QDAY ##0 07/08/12 11/15/19 History (unknown) (no (unknown) (unknown) at risk, and may not (unit s (unknown) date) heal. He definitely unknown) needs to be off his anticoagulants for (unknown) (no (unknown) (unknown) atorvastatin 20 mg (units (unknown) date) tablet 20 mg PO DAILY unknown) 11/15/19 11/15/19 History (unknown) (no (unknown) (unknown) carbidopa 25 (units (u nknown) date) mg-levodopa 100 mg 1 unknown) tab PO BEDTIME RLS 11/15/19 11/15/19 History (unknown) (no (unknown) (unknown) carvedilol 12.5 mg (units (unknown) date) tablet 12.5 mg PO BID unknown) 11/15/19 11/15/19 History (unknown) (no (unknown) (unknown) consultation has (units (unknown) date) been obtained to unknown) evaluate the hematoma and overlying skin. (unknown) (no (unknown) (unknown) cyclobenzaprine 10 (units (unknown) date) mg tablet 10 mg PO unknown) TID 11/15/19 11/15/19 History (unknown) (no (unknown) (unknown) details: x 9 (uni ts (unknown) date) months unknown) (unknown) (no (unknown) (unknown) erythema. (units (unkn own) date) unknown) (unknown) (no (unknown) (unknown) evaluation by (units ( unknown) date) Plastic surgery for unknown) skin flap coverage. This is not a procedure (unknown) (no (unknown) (unknown) ferrous sulfate (units (unknown) date) Allergy Muscle Pain unknown) Verified 11/14/19 20:28 (unknown) (no (unknown) (unknown) formation of a (units (unknown) date) subcutaneous hematoma unknown) in his left leg. This has led to some (unknown) (no (unknown) (unknown) fracture. Incidental (uni ts (unknown) date) note is made of unknown) underlying degenerative joint disease of (unknown) (no (unknown) (unknown) gabapentin Allergy (units (unknown) date) Confusion Verified unknown) 11/14/19 20:28 (unknown) (no (unknown) (unknown) hospital emergency (units (unknown) date) room last night and unknown) admitted for significant swelling along (unknown) (no (unknown) (unknown) hospital for (units (u nknown) date) swelling on the unknown) medial aspect of his knee. For unclear reasons he (unknown) (no (unknown) (unknown) household members: (units (unknown) date) significant other unknown) (unknown) (no (unknown) (unknown) hydrochlorothiazide (unit s (unknown) date) 25 mg tablet 50 mg PO unknown) QDAY ##0 07/08/12 History (unknown) (no (unknown) (unknown) injector (Ozempic) (units (unknown) date) unknown) (unknown) (no (unknown) (unknown) insulin glargine 100 (uni ts (unknown) date) unit/mL 100 unit SQ unknown) DAILY ##0 07/08/12 11/15/19 History (unknown) (no (unknown) (unknown) intramuscular oil (units (unknown) date) unknown) (unknown) (no (unknown) (unknown) lisinopril 20 mg (units (unknown) date) tablet 10 mg PO QDAY unknown) ##0 07/08/12 11/15/19 History (unknown) (no (unknown) (unknown) marital status: (units (unknown) date) unknown) (unknown) (no (unknown) (unknown) mg/1.5 mL) (units (unk nown) date) subcutaneous pen unknown) (unknown) (no (unknown) (unknown) omeprazole 40 mg (units (unknown) date) capsule,delayed 40 mg unknown) PO DAILY ##0 07/08/12 11/15/19 History (unknown) (no (unknown) (unknown) overlying skin (units (unknown) date) necrosis in a unknown) substantial area. This is not currently infected. (unknown) (no (unknown) (unknown) oxycodone 10 mg (units (unknown) date) tablet,crush 10 mg PO unknown) BID 11/15/19 11/15/19 History (unknown) (no (unknown) (unknown) release (units (unkno wn) date) unknown) (unknown) (no (unknown) (unknown) resistant,extended (units (unknown) date) release 12 hr unknown) (unknown) (no (unknown) (unknown) rivaroxaban 20 mg (units (unknown) date) tablet (Xarelto) 20 unknown) mg PO DAILY 11/14/19 11/14/19 History (unknown) (no (unknown) (unknown) semaglutide 0.25 mg (unit s (unknown) date) or 0.5 mg (2 0.25 mg unknown) SUBCUT QWEEK 11/15/19 11/15/19 History (unknown) (no (unknown) (unknown) sildenafil 100 mg (units (unknown) date) tablet 100 mg PO unknown) DAILY PRN Sexual Activity 11/15/19 11/15/19 (unknown) (no (unknown) (unknown) subcutaneous (units (u nknown) date) solution (Lantus unknown) (unknown) (no (unknown) (unknown) tablet (units (unkno wn) date) unknown) (unknown) (no (unknown) (unknown) testosterone (units (u nknown) date) cypionate 200 mg/mL unknown) ##0 07/08/12 History (unknown) (no (unknown) (unknown) that is provided by (unit s (unknown) date) orthopedic surgery at unknown) this institution. (unknown) (no (unknown) (unknown) the knee. (units (unkn own) date) unknown) (unknown) (no (unknown) (unknown) the medial knee. He (unit s (unknown) date) reportedly is on unknown) Xarelto at baseline. Orthopedic (unknown) (no (unknown) (unknown) today; this time is (unit s (unknown) date) exclusive of unknown) procedural time. (unknown) (no (unknown) (unknown) was placed in a (units (unknown) date) posterior short-leg unknown) splint. [facility] [place] [facility] [place] [facility] (unknown) (no (unknown) (unknown) zolpidem [From (units (unknown) date) Ambien] Allergy unknown) Confusion Verified 11/14/19 20:28 Result panel 49 (unknown) (no (unknown) (unknown) (no value) (units (unk nown) date) unknown) (unknown) (no (unknown) (unknown) Date of Service: (units (unknown) date) 01/27/22 unknown) (unknown) (no (unknown) (unknown) (no value) (units (unk nown) date) unknown) (unknown) (no (unknown) (unknown) - (units (unkno wn) date) unknown) (unknown) (no (unknown) (unknown) 01/27/22 05:00 (units (unknown) date) unknown) (unknown) (no (unknown) (unknown) [facility] (units (unknown) date) [address] unknown) [place] [address] (unknown) (no (unknown) (unknown) Laboratory (units (unk nown) date) Results - last 24 unknown) hr (unknown) (no (unknown) (unknown) Progress Note (units ( unknown) date) unknown) (unknown) (no (unknown) (unknown) (no value) (units (unk nown) date) unknown) (unknown) (no (unknown) (unknown) 01:37 05:00 05:00 (units (unknown) date) unknown) (unknown) (no (unknown) (unknown) 05:00 05:00 (units (un known) date) unknown) (unknown) (no (unknown) (unknown) 01/26/22 01/26/22 (units (unknown) date) 01/26/22 unknown) (unknown) (no (unknown) (unknown) 01/27/22 01/27/22 (units (unknown) date) unknown) (unknown) (no (unknown) (unknown) 01/27/22 01/27/22 (units (unknown) date) 01/27/22 unknown) (unknown) (no (unknown) (unknown) 19:40 19:40 19:40 (units (unknown) date) unknown) (unknown) (no (unknown) (unknown) 20:21 20:47 22:00 (units (unknown) date) unknown) (unknown) (no (unknown) (unknown) initiated on IV (units (unknown) date) ceftriaxone unknown) (unknown) (no (unknown) (unknown) 01/27/22 (units (unkno wn) date) unknown) (unknown) (no (unknown) (unknown) care is (units (unkno wn) date) appreciated. unknown) (unknown) (no (unknown) (unknown) enzymes, Mag, (units ( unknown) date) PT/INR unknown) (unknown) (no (unknown) (unknown) (past 8 hours): (units (unknown) date) unknown) (unknown) (no (unknown) (unknown) * Carb controlled (units (unknown) date) diet with a.c. HS unknown) glucose checks (unknown) (no (unknown) (unknown) * Closely monitor (units (unknown) date) renal function and unknown) hold nephrotoxic medications (Lisinopril) (unknown) (no (unknown) (unknown) * Continue (units (unk nown) date) carvedilol 25 mg unknown) p.o. b.i.d., patient receives in 12.5 mg tablets (unknown) (no (unknown) (unknown) * Continue home (units (unknown) date) dose of unknown) atorvastatin 40 mg p.o. at bedtime (unknown) (no (unknown) (unknown) * He is currently (units (unknown) date) saline lock due to unknown) volume overload (unknown) (no (unknown) (unknown) * He will receive (units (unknown) date) his home dose of unknown) Lantus 30 units b.i.d. (unknown) (no (unknown) (unknown) * Low-dose (units (unk n) date) correctional scale unknown) insulin and adjust as needed (unknown) (no (unknown) (unknown) * Orthopedic (units (u nknown) date) surgery has been unknown) consulted and will see the patient in the morning (unknown) (no (unknown) (unknown) * Patient is (units (u nknown) date) currently unknown) recovering from biventricular heart catheterization (unknown) (no (unknown) (unknown) * Patient was (units ( unknown) date) fluid resuscitated unknown) in the emergency department 2 L (unknown) (no (unknown) (unknown) * Patient was (units ( unknown) date) initially unknown) administered IV vancomycin and Zosyn but will be (unknown) (no (unknown) (unknown) * Patient's (units (un known) date) proBNP is almost unknown) 7200 (unknown) (no (unknown) (unknown) * Recheck CBC in (units (unknown) date) the morning unknown) (unknown) (no (unknown) (unknown) * Today's A1c is (units (unknown) date) 6.5 unknown) (unknown) (no (unknown) (unknown) * Will need to (units (unknown) date) 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 Acute blood (units (unknown) date) loss anemia likely unknown) secondary to over coagulation with what (unknown) (no (unknown) (unknown) 10:01 (units (unkno wn) date) unknown) (unknown) (no (unknown) (unknown) [id number] (units (unkno wn) date) unknown) (unknown) (no (unknown) (unknown) ALT (units (unkno wn) date) unknown) (unknown) (no (unknown) (unknown) ALT 23 (units (unkno wn) date) unknown) (unknown) (no (unknown) (unknown) ALT 27 (units (unkno wn) date) unknown) (unknown) (no (unknown) (unknown) AST (units (unkno wn) date) unknown) (unknown) (no (unknown) (unknown) AST 28 (units (unkno wn) date) unknown) (unknown) (no (unknown) (unknown) AST 30 (units (unkno wn) date) unknown) (unknown) (no (unknown) (unknown) Acute (units (unkno wn) date) decompensated unknown) heart failure with reduced ejection fraction, present on (unknown) (no (unknown) (unknown) Acute kidney (units (u nknown) date) injury likely unknown) secondary to blood loss anemia, present on admission (unknown) (no (unknown) (unknown) Age/Sex: 76 / M (units (unknown) date) unknown) (unknown) (no (unknown) (unknown) Albumin (units (unkno wn) date) unknown) (unknown) (no (unknown) (unknown) Albumin 3.0 L (units ( unknown) date) unknown) (unknown) (no (unknown) (unknown) Albumin 3.6 (units (un known) date) unknown) (unknown) (no (unknown) (unknown) Albumin/Globulin (units (unknown) date) Ratio unknown) (unknown) (no (unknown) (unknown) Albumin/Globulin (units (unknown) date) Ratio 0.9 L unknown) (unknown) (no (unknown) (unknown) Albumin/Globulin (units (unknown) date) Ratio 1.0 unknown) (unknown) (no (unknown) (unknown) Alkaline (units (o wn) date) Phosphatase unknown) (unknown) (no (unknown) (unknown) Alkaline (units (o wn) date) Phosphatase 144 H unknown) (unknown) (no (unknown) (unknown) Alkaline (units (o wn) date) Phosphatase 170 H unknown) (unknown) (no (unknown) (unknown) Anisocytosis (units (u nknown) date) unknown) (unknown) (no (unknown) (unknown) Anisocytosis 2+ H (units (unknown) date) unknown) (unknown) (no (unknown) (unknown) Anisocytosis 3+ H (units (unknown) date) unknown) (unknown) (no (unknown) (unknown) Antibody Screen (units (unknown) date) unknown) (unknown) (no (unknown) (unknown) Antibody Screen (units (unknown) date) unknown) (unknown) (no (unknown) (unknown) Antibody Screen (units (unknown) date) Negative unknown) (unknown) (no (unknown) (unknown) Anticoagulated (units (unknown) date) unknown) (unknown) (no (unknown) (unknown) Assessment + Plan (units (unknown) date) unknown) (unknown) (no (unknown) (unknown) Assessment + Plan (units (unknown) date) narrative: unknown) (unknown) (no (unknown) (unknown) Atrial (units (unkno wn) date) fibrillation unknown) (unknown) (no (unknown) (unknown) BUN (units (o wn) date) unknown) (unknown) (no (unknown) (unknown) BUN 60 H (units (o wn) date) unknown) (unknown) (no (unknown) (unknown) BUN 61 H (units (unkno wn) date) unknown) (unknown) (no (unknown) (unknown) BUN/Creatinine (units (unknown) date) Ratio unknown) (unknown) (no (unknown) (unknown) BUN/Creatinine (units (unknown) date) Ratio 19.2 unknown) (unknown) (no (unknown) (unknown) BUN/Creatinine (units (unknown) date) Ratio 22.5 H unknown) (unknown) (no (unknown) (unknown) Baso # (Auto) (units ( unknown) date) unknown) (unknown) (no (unknown) (unknown) Baso # (Auto) 0 (units (unknown) date) unknown) (unknown) (no (unknown) (unknown) Baso # (Auto) 100 (units (unknown) date) unknown) (unknown) (no (unknown) (unknown) Baso % (Auto) (units ( unknown) date) unknown) (unknown) (no (unknown) (unknown) Baso % (Auto) 0.7 (units (unknown) date) unknown) (unknown) (no (unknown) (unknown) Baso % (Auto) 1.0 (units (unknown) date) unknown) (unknown) (no (unknown) (unknown) Blood Pressure (units (unknown) date) 96/34 L 103/48 L unknown) 103/48 L (unknown) (no (unknown) (unknown) Blood Type (units (unk nown) date) unknown) (unknown) (no (unknown) (unknown) Blood Type (units (unk nown) date) unknown) (unknown) (no (unknown) (unknown) Blood Type A (units (u nknown) date) Negative unknown) (unknown) (no (unknown) (unknown) Calcium (units (unkno wn) date) unknown) (unknown) (no (unknown) (unknown) Calcium 8.0 L (units ( unknown) date) unknown) (unknown) (no (unknown) (unknown) Calcium 8.4 (units (un known) date) unknown) (unknown) (no (unknown) (unknown) Carbon Dioxide (units (unknown) date) unknown) (unknown) (no (unknown) (unknown) Carbon Dioxide 25 (units (unknown) date) unknown) (unknown) (no (unknown) (unknown) Carbon Dioxide 27 (units (unknown) date) unknown) (unknown) (no (unknown) (unknown) Chloride (units (unkno wn) date) unknown) (unknown) (no (unknown) (unknown) Chloride 100 (units (u nknown) date) unknown) (unknown) (no (unknown) (unknown) Chloride 97 L (units ( unknown) date) unknown) (unknown) (no (unknown) (unknown) Code status: Full (units (unknown) date) code as discussed unknown) with the patient who identifies his son, (unknown) (no (unknown) (unknown) Consultants (units (unknown) date) [facility] unknown) Surgery,? care and involvement in the patient?s (unknown) (no (unknown) (unknown) Coronary artery (units (unknown) date) disease unknown) (unknown) (no (unknown) (unknown) Coronary artery (units (unknown) date) disease, chronic unknown) (unknown) (no (unknown) (unknown) Creatinine (units (unk nown) date) unknown) (unknown) (no (unknown) (unknown) Creatinine 2.67 H (units (unknown) date) unknown) (unknown) (no (unknown) (unknown) Creatinine 3.18 H (units (unknown) date) unknown) (unknown) (no (unknown) (unknown) Critical Care (units ( unknown) date) time: unknown) (unknown) (no (unknown) (unknown) Crossmatch (units (unk nown) date) unknown) (unknown) (no (unknown) (unknown) Crossmatch (units (unk nown) date) unknown) (unknown) (no (unknown) (unknown) Crossmatch See (units (unknown) date) Detail unknown) (unknown) (no (unknown) (unknown) : 1945 (units (unknown) date) Acct:[id number] unknown) (unknown) (no (unknown) (unknown) Date Patient (units (u nknown) date) Seen: 01/27/22 unknown) (unknown) (no (unknown) (unknown) Deep Vein (units (unkn own) date) Thrombosis/Pulmona unknown) ry Embolism Present on Admission: No (unknown) (no (unknown) (unknown) Diabetes (units (unkno wn) date) unknown) (unknown) (no (unknown) (unknown) Diabetes type 2, (units (unknown) date) appears to be well unknown) controlled (unknown) (no (unknown) (unknown) Dispo: Unknown at (units (unknown) date) this time unknown) (unknown) (no (unknown) (unknown) David his (units (unkno wn) date) surrogate and POA. unknown) (unknown) (no (unknown) (unknown) Dyslipidemia (units (u nknown) date) unknown) (unknown) (no (unknown) (unknown) Eos # (Auto) (units (u nknown) date) unknown) (unknown) (no (unknown) (unknown) Eos # (Auto) 200 (units (unknown) date) unknown) (unknown) (no (unknown) (unknown) Eos # (Auto) 200 (units (unknown) date) unknown) (unknown) (no (unknown) (unknown) Eos % (Auto) (units (u nknown) date) unknown) (unknown) (no (unknown) (unknown) Eos % (Auto) 2.8 (units (unknown) date) unknown) (unknown) (no (unknown) (unknown) Eos % (Auto) 2.8 (units (unknown) date) unknown) (unknown) (no (unknown) (unknown) Estimated GFR (units ( unknown) date) unknown) (unknown) (no (unknown) (unknown) Estimated GFR 19 (units (unknown) date) L unknown) (unknown) (no (unknown) (unknown) Estimated GFR 24 (units (unknown) date) L unknown) (unknown) (no (unknown) (unknown) Exam (units (unkno wn) date) unknown) (unknown) (no (unknown) (unknown) FEN: IV fluids: (units (unknown) date) saline lock, diet: unknown) carb controlled diet, labs: CBC, C/BMP, liver (unknown) (no (unknown) (unknown) Family History (units (unknown) date) (Reviewed 01/27/22 unknown) @ 07:53 by Tony Aceves MD) (unknown) (no (unknown) (unknown) Globulin (units (unkno wn) date) unknown) (unknown) (no (unknown) (unknown) Globulin 3.4 (units (u nknown) date) unknown) (unknown) (no (unknown) (unknown) Globulin 3.5 (units (u nknown) date) unknown) (unknown) (no (unknown) (unknown) Glucose (units (unkno wn) date) unknown) (unknown) (no (unknown) (unknown) Glucose 130 H (units ( unknown) date) unknown) (unknown) (no (unknown) (unknown) Glucose 133 H (units ( unknown) date) unknown) (unknown) (no (unknown) (unknown) Osmel Baxter was (units (unknown) date) admitted for unknown) further management of acute blood loss anemia, (unknown) (no (unknown) (unknown) Hct (units (unkno wn) date) unknown) (unknown) (no (unknown) (unknown) Hct 20.8 L* (units (un known) date) unknown) (unknown) (no (unknown) (unknown) Hct 24.5 L (units (unk nown) date) unknown) (unknown) (no (unknown) (unknown) Hct 24.9 L (units (unk nown) date) unknown) (unknown) (no (unknown) (unknown) He indicates his (units (unknown) date) pain is adequately unknown) controlled. No new complaints. (unknown) (no (unknown) (unknown) Hemoglobin A1c (units (unknown) date) unknown) (unknown) (no (unknown) (unknown) Hemoglobin A1c (units (unknown) date) unknown) (unknown) (no (unknown) (unknown) Hemoglobin A1c (units (unknown) date) 6.5 H unknown) (unknown) (no (unknown) (unknown) Hgb (units (unkno wn) date) unknown) (unknown) (no (unknown) (unknown) Hgb 6.7 L* (units (unk nown) date) unknown) (unknown) (no (unknown) (unknown) Hgb 7.9 L (units (unkn own) date) unknown) (unknown) (no (unknown) (unknown) Hgb 8.2 L (units (unkn own) date) unknown) (unknown) (no (unknown) (unknown) Hx of (units (unkno wn) date) cholecystectomy unknown) (unknown) (no (unknown) (unknown) Hypertension (units (u nknown) date) unknown) (unknown) (no (unknown) (unknown) I spent a total (units (unknown) date) of [] minutes of unknown) critical care time on this patient's care (unknown) (no (unknown) (unknown) INR (units (unkno wn) date) unknown) (unknown) (no (unknown) (unknown) INR (units (unkno wn) date) unknown) (unknown) (no (unknown) (unknown) INR 1.2 (units (unkno wn) date) unknown) (unknown) (no (unknown) (unknown) In the ER, he (units ( unknown) date) received IV Lasix unknown) 80 mg in addition to his home oral dose of 20 (unknown) (no (unknown) (unknown) Interval history: (units (unknown) date) unknown) (unknown) (no (unknown) (unknown) Labs (units (unkno wn) date) unknown) (unknown) (no (unknown) (unknown) Labs: (units (unkno wn) date) unknown) (unknown) (no (unknown) (unknown) Lactate (units (unkno wn) date) unknown) (unknown) (no (unknown) (unknown) Lactate (units (unkno wn) date) unknown) (unknown) (no (unknown) (unknown) Lactate 1.3 (units (un known) date) unknown) (unknown) (no (unknown) (unknown) Lipase (units (unkno wn) date) unknown) (unknown) (no (unknown) (unknown) Lipase (units (unkno wn) date) unknown) (unknown) (no (unknown) (unknown) Lipase 135 (units (unk nown) date) unknown) (unknown) (no (unknown) (unknown) Lymph # (Auto) (units (unknown) date) unknown) (unknown) (no (unknown) (unknown) Lymph # (Auto) (units (unknown) date) 600 L unknown) (unknown) (no (unknown) (unknown) Lymph # (Auto) (units (unknown) date) 800 L unknown) (unknown) (no (unknown) (unknown) Lymph % (Auto) (units (unknown) date) unknown) (unknown) (no (unknown) (unknown) Lymph % (Auto) (units (unknown) date) 11.4 L unknown) (unknown) (no (unknown) (unknown) Lymph % (Auto) (units (unknown) date) 9.9 L unknown) (unknown) (no (unknown) (unknown) MCH (units (unkno wn) date) unknown) (unknown) (no (unknown) (unknown) MCH 24.6 L (units (unk nown) date) unknown) (unknown) (no (unknown) (unknown) MCH 25.9 L (units (unk nown) date) unknown) (unknown) (no (unknown) (unknown) MCHC (units (unkno wn) date) unknown) (unknown) (no (unknown) (unknown) MCHC 32.4 (units (unkn own) date) unknown) (unknown) (no (unknown) (unknown) MCHC 32.9 (units (unkn own) date) unknown) (unknown) (no (unknown) (unknown) MCV (units (unkno wn) date) unknown) (unknown) (no (unknown) (unknown) MCV 75.7 L (units (unk nown) date) unknown) (unknown) (no (unknown) (unknown) MCV 78.6 L (units (unk nown) date) unknown) (unknown) (no (unknown) (unknown) Magnesium (units (unkn own) date) unknown) (unknown) (no (unknown) (unknown) Magnesium (units (unkn own) date) unknown) (unknown) (no (unknown) (unknown) Magnesium 1.5 L (units (unknown) date) unknown) (unknown) (no (unknown) (unknown) Magnesium 1.7 (units ( unknown) date) unknown) (unknown) (no (unknown) (unknown) Medical History (units (unknown) date) (Reviewed 01/27/22 unknown) @ 07:53 by Tony Aceves MD) (unknown) (no (unknown) (unknown) Lajas # (Auto) (units ( unknown) date) unknown) (unknown) (no (unknown) (unknown) Lajas # (Auto) 500 (units (unknown) date) unknown) (unknown) (no (unknown) (unknown) Lajas # (Auto) 700 (units (unknown) date) unknown) (unknown) (no (unknown) (unknown) Lajas % (Auto) (units ( unknown) date) unknown) (unknown) (no (unknown) (unknown) Lajas % (Auto) 8.4 (units (unknown) date) unknown) (unknown) (no (unknown) (unknown) Lajas % (Auto) 9.8 (units (unknown) date) unknown) (unknown) (no (unknown) (unknown) NT-Pro-B (units (unkno wn) date) Natriuret Pep unknown) (unknown) (no (unknown) (unknown) NT-Pro-B (units (unkno wn) date) Natriuret Pep unknown) (unknown) (no (unknown) (unknown) NT-Pro-B (units (unkno wn) date) Natriuret Pep 7170 unknown) H (unknown) (no (unknown) (unknown) Neut # (Auto) (units ( unknown) date) unknown) (unknown) (no (unknown) (unknown) Neut # (Auto) (units ( unknown) date) 4600 unknown) (unknown) (no (unknown) (unknown) Neut # (Auto) (units ( unknown) date) 5400 unknown) (unknown) (no (unknown) (unknown) Neut % (Auto) (units ( unknown) date) unknown) (unknown) (no (unknown) (unknown) Neut % (Auto) (units ( unknown) date) 75.0 unknown) (unknown) (no (unknown) (unknown) Neut % (Auto) (units ( unknown) date) 78.2 H unknown) (unknown) (no (unknown) (unknown) Objective (units (unkn own) date) unknown) (unknown) (no (unknown) (unknown) Other Adopted (units ( unknown) date) unknown) (unknown) (no (unknown) (unknown) Oxygen Delivery (units (unknown) date) Method Room Air unknown) (unknown) (no (unknown) (unknown) Oxygen Flow Rate (units (unknown) date) 0 unknown) (unknown) (no (unknown) (unknown) Oxygen Flow Rate (units (unknown) date) 0 0 unknown) (unknown) (no (unknown) (unknown) PFSH (units (unkno wn) date) unknown) (unknown) (no (unknown) (unknown) PT (units (unkno wn) date) unknown) (unknown) (no (unknown) (unknown) PT (units (unkno wn) date) unknown) (unknown) (no (unknown) (unknown) PT 14.1 H (units (unkn own) date) unknown) (unknown) (no (unknown) (unknown) Patient is (units (unk nown) date) admitted to the unknown) inpatient service due to the severity of disease, (unknown) (no (unknown) (unknown) Patient received (units (unknown) date) 2 units PRBC in unknown) the emergency department increasing his H+H (unknown) (no (unknown) (unknown) Patient's (units (unkn own) date) rivaroxaban, unknown) aspirin and clopidogrel are being held (unknown) (no (unknown) (unknown) Patient: (units (unkno wn) date) Osmel Baxter unknown) MR#: [id number] (unknown) (no (unknown) (unknown) Plt Count (units (unkn own) date) unknown) (unknown) (no (unknown) (unknown) Plt Count 164 (units ( unknown) date) unknown) (unknown) (no (unknown) (unknown) Plt Count 206 (units ( unknown) date) unknown) (unknown) (no (unknown) (unknown) Poikilocytosis (units (unknown) date) unknown) (unknown) (no (unknown) (unknown) Poikilocytosis 1+ (units (unknown) date) H unknown) (unknown) (no (unknown) (unknown) Potassium (units (unkn own) date) unknown) (unknown) (no (unknown) (unknown) Potassium 4.1 (units ( unknown) date) unknown) (unknown) (no (unknown) (unknown) Potassium 4.3 (units ( unknown) date) unknown) (unknown) (no (unknown) (unknown) Probable left (units ( unknown) date) knee cellulitis, unknown) acute, present on admission (unknown) (no (unknown) (unknown) Procalcitonin (units ( unknown) date) unknown) (unknown) (no (unknown) (unknown) Procalcitonin (units ( unknown) date) unknown) (unknown) (no (unknown) (unknown) Procalcitonin (units ( unknown) date) 0.50 unknown) (unknown) (no (unknown) (unknown) Provider: (units (unkn own) date) Chary Ramirez unknown) (unknown) (no (unknown) (unknown) Pulse Oximetry 99 (units (unknown) date) 98 unknown) (unknown) (no (unknown) (unknown) Pulse Rate 61 63 (units (unknown) date) 63 unknown) (unknown) (no (unknown) (unknown) Quality (units (unkno wn) date) unknown) (unknown) (no (unknown) (unknown) RBC (units (unkno wn) date) unknown) (unknown) (no (unknown) (unknown) RBC 2.75 L (units (unk nown) date) unknown) (unknown) (no (unknown) (unknown) RBC 3.16 L (units (unk nown) date) unknown) (unknown) (no (unknown) (unknown) RBC Morphology (units (unknown) date) unknown) (unknown) (no (unknown) (unknown) RBC Morphology (units (unknown) date) Not Reportable unknown) (unknown) (no (unknown) (unknown) RBC Morphology (units (unknown) date) Not Reportable unknown) (unknown) (no (unknown) (unknown) RDW (units (unkno wn) date) unknown) (unknown) (no (unknown) (unknown) RDW 23.2 H (units (unk nown) date) unknown) (unknown) (no (unknown) (unknown) RDW 24.5 H (units (unk nown) date) unknown) (unknown) (no (unknown) (unknown) Respiratory Rate (units (unknown) date) 15 18 unknown) (unknown) (no (unknown) (unknown) Result Diagrams: (units (unknown) date) unknown) (unknown) (no (unknown) (unknown) S/P CABG x 4 (units (u nknown) date) unknown) (unknown) (no (unknown) (unknown) 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) (unknown) (no (unknown) (unknown) SARS-CoV-2 (PCR) (units (unknown) date) unknown) (unknown) (no (unknown) (unknown) SARS-CoV-2 (PCR) (units (unknown) date) unknown) (unknown) (no (unknown) (unknown) SARS-CoV-2 (PCR) (units (unknown) date) Negative unknown) (unknown) (no (unknown) (unknown) Signed By: (units (unk nown) date) unknown) (unknown) (no (unknown) (unknown) Sleep apnea (units (un known) date) unknown) (unknown) (no (unknown) (unknown) Smoking Status: (units (unknown) date) Former smoker unknown) (unknown) (no (unknown) (unknown) Social History (units (unknown) date) (Updated 09/25/18 unknown) @ 11:17 by Telma Dickey DO) (unknown) (no (unknown) (unknown) Sodium (units (unkno wn) date) unknown) (unknown) (no (unknown) (unknown) Sodium 132 L (units (u nknown) date) unknown) (unknown) (no (unknown) (unknown) Sodium 134 L (units (u nknown) date) unknown) (unknown) (no (unknown) (unknown) Subjective (units (unk nown) date) unknown) (unknown) (no (unknown) (unknown) Surgical History (units (unknown) date) (Reviewed 01/27/22 unknown) @ 07:53 by Tony Aceves MD) (unknown) (no (unknown) (unknown) Temperature 97.0 (units (unknown) date) F L 97.4 F L unknown) (unknown) (no (unknown) (unknown) Time Patient (units (u nknown) date) Seen: 10:45 unknown) (unknown) (no (unknown) (unknown) Time Spent With (units (unknown) date) Patient unknown) (unknown) (no (unknown) (unknown) Total Bilirubin (units (unknown) date) unknown) (unknown) (no (unknown) (unknown) Total Bilirubin (units (unknown) date) 1.5 H unknown) (unknown) (no (unknown) (unknown) Total Bilirubin (units (unknown) date) 2.6 H unknown) (unknown) (no (unknown) (unknown) Total Protein (units ( unknown) date) unknown) (unknown) (no (unknown) (unknown) Total Protein 6.4 (units (unknown) date) unknown) (unknown) (no (unknown) (unknown) Total Protein 7.1 (units (unknown) date) unknown) (unknown) (no (unknown) (unknown) Ur Culture (units (unk nown) date) Indicated? unknown) (unknown) (no (unknown) (unknown) Ur Culture (units (unk nown) date) Indicated? unknown) (unknown) (no (unknown) (unknown) Ur Culture (units (unk nown) date) Indicated? unknown) Specimen cultured (unknown) (no (unknown) (unknown) Urine Bacteria (units (unknown) date) unknown) (unknown) (no (unknown) (unknown) Urine Bacteria (units (unknown) date) unknown) (unknown) (no (unknown) (unknown) Urine Bacteria (units (unknown) date) Few (2-10) H unknown) (unknown) (no (unknown) (unknown) Urine RBC (units (unkn own) date) unknown) (unknown) (no (unknown) (unknown) Urine RBC (units (unkn own) date) unknown) (unknown) (no (unknown) (unknown) Urine RBC 0-1/hpf (units (unknown) date) unknown) (unknown) (no (unknown) (unknown) Urine WBC (units (unkn own) date) unknown) (unknown) (no (unknown) (unknown) Urine WBC (units (unkn own) date) unknown) (unknown) (no (unknown) (unknown) Urine WBC (units (unkn own) date) 30-100/hpf H unknown) (unknown) (no (unknown) (unknown) Urine Yeast (units (un known) date) unknown) (unknown) (no (unknown) (unknown) Urine Yeast (units (un known) date) unknown) (unknown) (no (unknown) (unknown) Urine Yeast (units (un known) date) 30-100/hpf H unknown) (unknown) (no (unknown) (unknown) VTE (units (unkno wn) date) unknown) (unknown) (no (unknown) (unknown) VTE Prophylaxis: (units (unknown) date) Wells risk score unknown) 1.5.? Pharmacological VTE prophylaxis is (unknown) (no (unknown) (unknown) Vital Signs (units (un known) date) unknown) (unknown) (no (unknown) (unknown) WBC (units (unkno wn) date) unknown) (unknown) (no (unknown) (unknown) WBC 5.9 (units (unkno wn) date) unknown) (unknown) (no (unknown) (unknown) WBC 7.1 (units (unkno wn) date) unknown) (unknown) (no (unknown) (unknown) [Embedded Image (units (unknown) date) Not Available] unknown) (unknown) (no (unknown) (unknown) acute kidney (units (u nknown) date) injury, and acute unknown) exacerbation of heart failure with reduced (unknown) (no (unknown) (unknown) admission (units (unkn own) date) unknown) (unknown) (no (unknown) (unknown) appears to be (units ( unknown) date) triple unknown) anti-platelet therapy, present on admission. Causing (unknown) (no (unknown) (unknown) contraindicated (units (unknown) date) in the setting of unknown) active bleeding [X] right sidedl SCD? Patient (unknown) (no (unknown) (unknown) details: (units (unknown) date) x 9 months unknown) (unknown) (no (unknown) (unknown) ejection (units (unkno wn) date) fraction. As well unknown) for wound care and hematoma care. (unknown) (no (unknown) (unknown) from 6.7-7.9 and (units (unknown) date) 20.8-24.5 unknown) respectively. Today hemoglobin stable at 8.2. (unknown) (no (unknown) (unknown) hematoma left (units ( unknown) date) leg. unknown) (unknown) (no (unknown) (unknown) household (units (unkn own) date) members: unknown) significant other (unknown) (no (unknown) (unknown) is currently (units (u nknown) date) anticoagulated on unknown) rivaroxaban (unknown) (no (unknown) (unknown) marital status: (units (unknown) date) unknown) (unknown) (no (unknown) (unknown) mg. Will increase (units (unknown) date) daily furosemide unknown) to 40 mg daily (unknown) (no (unknown) (unknown) midnights. (units (unk nown) date) unknown) (unknown) (no (unknown) (unknown) risks of further (units (unknown) date) disease unknown) progression and this stay is expected to exceed 2 (unknown) (no (unknown) (unknown) today; this time (units (unknown) date) is exclusive of unknown) procedural time. Result panel 50 (unknown) (no (unknown) (unknown) (no value) (units (unk nown) date) unknown) (unknown) (no (unknown) (unknown) Date of Service: (units (unknown) date) 01/27/22 unknown) (unknown) (no (unknown) (unknown) (no value) (units (unk nown) date) unknown) (unknown) (no (unknown) (unknown) - (units (unkno wn) date) unknown) (unknown) (no (unknown) (unknown) 01/27/22 05:00 (units (unknown) date) unknown) (unknown) (no (unknown) (unknown) [facility] [id number] (unknown) date) [address] unknown) [place] [address] (unknown) (no (unknown) (unknown) Laboratory Results - (uni ts (unknown) date) last 24 hr unknown) (unknown) (no (unknown) (unknown) Progress Note (units ( unknown) date) unknown) (unknown) (no (unknown) (unknown) (no value) (units (unk nown) date) unknown) (unknown) (no (unknown) (unknown) 01:37 05:00 05:00 (units (unknown) date) unknown) (unknown) (no (unknown) (unknown) 05:00 05:00 (units (un known) date) unknown) (unknown) (no (unknown) (unknown) 01/26/22 01/26/22 (units (unknown) date) 01/26/22 unknown) (unknown) (no (unknown) (unknown) 01/27/22 01/27/22 (units (unknown) date) unknown) (unknown) (no (unknown) (unknown) 01/27/22 01/27/22 (units (unknown) date) 01/27/22 unknown) (unknown) (no (unknown) (unknown) 19:40 19:40 19:40 (units (unknown) date) unknown) (unknown) (no (unknown) (unknown) 20:21 20:47 22:00 (units (unknown) date) unknown) (unknown) (no (unknown) (unknown) initiated on IV (units (unknown) date) ceftriaxone unknown) (unknown) (no (unknown) (unknown) 01/27/22 (units (unkno wn) date) unknown) (unknown) (no (unknown) (unknown) care is appreciated. (uni ts (unknown) date) unknown) (unknown) (no (unknown) (unknown) enzymes, Mag, PT/INR (uni ts (unknown) date) unknown) (unknown) (no (unknown) (unknown) (past 8 hours): (units (unknown) date) unknown) (unknown) (no (unknown) (unknown) * Carb controlled (units (unknown) date) diet with a.c. HS unknown) glucose checks (unknown) (no (unknown) (unknown) * Closely monitor (units (unknown) date) renal function and unknown) hold nephrotoxic medications (Lisinopril) (unknown) (no (unknown) (unknown) * Continue (units (unk nown) date) carvedilol 25 mg p.o. unknown) b.i.d., patient receives in 12.5 mg tablets (unknown) (no (unknown) (unknown) * Continue home dose (uni ts (unknown) date) of atorvastatin 40 mg unknown) p.o. at bedtime (unknown) (no (unknown) (unknown) * He is currently (units (unknown) date) saline lock due to unknown) volume overload (unknown) (no (unknown) (unknown) * He will receive (units (unknown) date) his home dose of unknown) Lantus 30 units b.i.d. (unknown) (no (unknown) (unknown) * Low-dose (units (unk nown) date) correctional scale unknown) insulin and adjust as needed (unknown) (no (unknown) (unknown) * Orthopedic surgery (uni ts (unknown) date) has been consulted unknown) and will see the patient in the morning (unknown) (no (unknown) (unknown) * Patient is (units (u nknown) date) currently recovering unknown) from biventricular heart catheterization (unknown) (no (unknown) (unknown) * Patient was fluid (unit s (unknown) date) resuscitated in the unknown) emergency department 2 L (unknown) (no (unknown) (unknown) * Patient was (units ( unknown) date) initially unknown) administered IV vancomycin and Zosyn but will be (unknown) (no (unknown) (unknown) * Patient's proBNP (units (unknown) date) is almost 7200 unknown) (unknown) (no (unknown) (unknown) * Today's A1c is 6.5 (uni ts (unknown) date) unknown) (unknown) (no (unknown) (unknown) * Will need to (units (unknown) date) 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 Acute blood loss (unit s (unknown) date) anemia likely unknown) secondary to over coagulation with what (unknown) (no (unknown) (unknown) 10:01 (units (unkno wn) date) unknown) (unknown) (no (unknown) (unknown) [id number] (units (unkno wn) date) unknown) (unknown) (no (unknown) (unknown) ALT (units (unkno wn) date) unknown) (unknown) (no (unknown) (unknown) ALT 23 (units (unkno wn) date) unknown) (unknown) (no (unknown) (unknown) ALT 27 (units (unkno wn) date) unknown) (unknown) (no (unknown) (unknown) AST (units (unkno wn) date) unknown) (unknown) (no (unknown) (unknown) AST 28 (units (unkno wn) date) unknown) (unknown) (no (unknown) (unknown) AST 30 (units (unkno wn) date) unknown) (unknown) (no (unknown) (unknown) Acute decompensated (unit s (unknown) date) heart failure with unknown) reduced ejection fraction, present on (unknown) (no (unknown) (unknown) Acute kidney injury (unit s (unknown) date) likely secondary to unknown) blood loss anemia, present on admission (unknown) (no (unknown) (unknown) Age/Sex: 76 / M (units (unknown) date) unknown) (unknown) (no (unknown) (unknown) Albumin (units (unkno wn) date) unknown) (unknown) (no (unknown) (unknown) Albumin 3.0 L (units ( unknown) date) unknown) (unknown) (no (unknown) (unknown) Albumin 3.6 (units (un known) date) unknown) (unknown) (no (unknown) (unknown) Albumin/Globulin (units (unknown) date) Ratio unknown) (unknown) (no (unknown) (unknown) Albumin/Globulin (units (unknown) date) Ratio 0.9 L unknown) (unknown) (no (unknown) (unknown) Albumin/Globulin (units (unknown) date) Ratio 1.0 unknown) (unknown) (no (unknown) (unknown) Alkaline Phosphatase (uni ts (unknown) date) unknown) (unknown) (no (unknown) (unknown) Alkaline Phosphatase (uni ts (unknown) date) 144 H unknown) (unknown) (no (unknown) (unknown) Alkaline Phosphatase (uni ts (unknown) date) 170 H unknown) (unknown) (no (unknown) (unknown) Anisocytosis (units (u nknown) date) unknown) (unknown) (no (unknown) (unknown) Anisocytosis 2+ H (units (unknown) date) unknown) (unknown) (no (unknown) (unknown) Anisocytosis 3+ H (units (unknown) date) unknown) (unknown) (no (unknown) (unknown) Antibody Screen (units (unknown) date) unknown) (unknown) (no (unknown) (unknown) Antibody Screen (units (unknown) date) unknown) (unknown) (no (unknown) (unknown) Antibody Screen (units (unknown) date) Negative unknown) (unknown) (no (unknown) (unknown) Anticoagulated (units (unknown) date) unknown) (unknown) (no (unknown) (unknown) Assessment + Plan (units (unknown) date) unknown) (unknown) (no (unknown) (unknown) Assessment + Plan (units (unknown) date) narrative: unknown) (unknown) (no (unknown) (unknown) Atrial fibrillation (unit s (unknown) date) unknown) (unknown) (no (unknown) (unknown) BUN (units (unkno wn) date) unknown) (unknown) (no (unknown) (unknown) BUN 60 H (units (unkno wn) date) unknown) (unknown) (no (unknown) (unknown) BUN 61 H (units (unkno wn) date) unknown) (unknown) (no (unknown) (unknown) BUN/Creatinine Ratio (uni ts (unknown) date) unknown) (unknown) (no (unknown) (unknown) BUN/Creatinine Ratio (uni ts (unknown) date) 19.2 unknown) (unknown) (no (unknown) (unknown) BUN/Creatinine Ratio (uni ts (unknown) date) 22.5 H unknown) (unknown) (no (unknown) (unknown) Baso # (Auto) (units ( unknown) date) unknown) (unknown) (no (unknown) (unknown) Baso # (Auto) 0 (units (unknown) date) unknown) (unknown) (no (unknown) (unknown) Baso # (Auto) 100 (units (unknown) date) unknown) (unknown) (no (unknown) (unknown) Baso % (Auto) (units ( unknown) date) unknown) (unknown) (no (unknown) (unknown) Baso % (Auto) 0.7 (units (unknown) date) unknown) (unknown) (no (unknown) (unknown) Baso % (Auto) 1.0 (units (unknown) date) unknown) (unknown) (no (unknown) (unknown) Blood Pressure 96/34 (uni ts (unknown) date) L 103/48 L 103/48 L unknown) (unknown) (no (unknown) (unknown) Blood Type (units (unk nown) date) unknown) (unknown) (no (unknown) (unknown) Blood Type (units (unk nown) date) unknown) (unknown) (no (unknown) (unknown) Blood Type A (units (u nknown) date) Negative unknown) (unknown) (no (unknown) (unknown) Calcium (units (unkno wn) date) unknown) (unknown) (no (unknown) (unknown) Calcium 8.0 L (units ( unknown) date) unknown) (unknown) (no (unknown) (unknown) Calcium 8.4 (units (un known) date) unknown) (unknown) (no (unknown) (unknown) Carbon Dioxide (units (unknown) date) unknown) (unknown) (no (unknown) (unknown) Carbon Dioxide 25 (units (unknown) date) unknown) (unknown) (no (unknown) (unknown) Carbon Dioxide 27 (units (unknown) date) unknown) (unknown) (no (unknown) (unknown) Chloride (units (unkno wn) date) unknown) (unknown) (no (unknown) (unknown) Chloride 100 (units (u nknown) date) unknown) (unknown) (no (unknown) (unknown) Chloride 97 L (units ( unknown) date) unknown) (unknown) (no (unknown) (unknown) Code status: Full (units (unknown) date) code as discussed unknown) with the patient who identifies his son, (unknown) (no (unknown) (unknown) Consultants Dr. Aceves (uni ts (unknown) date) Orthopedic Surgery,? unknown) care and involvement in the patient?s (unknown) (no (unknown) (unknown) Continue to (units (un known) date) follow-up. unknown) (unknown) (no (unknown) (unknown) Coronary artery (units (unknown) date) disease unknown) (unknown) (no (unknown) (unknown) Coronary artery (units (unknown) date) disease, chronic unknown) (unknown) (no (unknown) (unknown) Creatinine (units (unk nown) date) unknown) (unknown) (no (unknown) (unknown) Creatinine 2.67 H (units (unknown) date) unknown) (unknown) (no (unknown) (unknown) Creatinine 3.18 H (units (unknown) date) unknown) (unknown) (no (unknown) (unknown) Critical Care time: (unit s (unknown) date) unknown) (unknown) (no (unknown) (unknown) Crossmatch (units (unk nown) date) unknown) (unknown) (no (unknown) (unknown) Crossmatch (units (unk nown) date) unknown) (unknown) (no (unknown) (unknown) Crossmatch See (units (unknown) date) Detail unknown) (unknown) (no (unknown) (unknown) : 1945 (units (unknown) date) Acct:[id number] unknown) (unknown) (no (unknown) (unknown) Date Patient Seen: (units (unknown) date) 01/27/22 unknown) (unknown) (no (unknown) (unknown) Deep Vein (units (unkn own) date) Thrombosis/Pulmonary unknown) Embolism Present on Admission: No (unknown) (no (unknown) (unknown) Diabetes (units (unkno wn) date) unknown) (unknown) (no (unknown) (unknown) Diabetes type 2, (units (unknown) date) appears to be well unknown) controlled (unknown) (no (unknown) (unknown) Dispo: Unknown at (units (unknown) date) this time unknown) (unknown) (no (unknown) (unknown) David his surrogate (units (unknown) date) and POA. unknown) (unknown) (no (unknown) (unknown) Dyslipidemia (units (u nknown) date) unknown) (unknown) (no (unknown) (unknown) Eos # (Auto) (units (u nknown) date) unknown) (unknown) (no (unknown) (unknown) Eos # (Auto) 200 (units (unknown) date) unknown) (unknown) (no (unknown) (unknown) Eos # (Auto) 200 (units (unknown) date) unknown) (unknown) (no (unknown) (unknown) Eos % (Auto) (units (u nknown) date) unknown) (unknown) (no (unknown) (unknown) Eos % (Auto) 2.8 (units (unknown) date) unknown) (unknown) (no (unknown) (unknown) Eos % (Auto) 2.8 (units (unknown) date) unknown) (unknown) (no (unknown) (unknown) Estimated GFR (units ( unknown) date) unknown) (unknown) (no (unknown) (unknown) Estimated GFR 19 L (units (unknown) date) unknown) (unknown) (no (unknown) (unknown) Estimated GFR 24 L (units (unknown) date) unknown) (unknown) (no (unknown) (unknown) Exam (units (unkno wn) date) unknown) (unknown) (no (unknown) (unknown) FEN: IV fluids: (units (unknown) date) saline lock, diet: unknown) carb controlled diet, labs: CBC, C/BMP, liver (unknown) (no (unknown) (unknown) Family History (units (unknown) date) (Reviewed 01/27/22 @ unknown) 07:53 by Tony Aceves MD) (unknown) (no (unknown) (unknown) Globulin (units (unkno wn) date) unknown) (unknown) (no (unknown) (unknown) Globulin 3.4 (units (u nknown) date) unknown) (unknown) (no (unknown) (unknown) Globulin 3.5 (units (u nknown) date) unknown) (unknown) (no (unknown) (unknown) Glucose (units (unkno wn) date) unknown) (unknown) (no (unknown) (unknown) Glucose 130 H (units ( unknown) date) unknown) (unknown) (no (unknown) (unknown) Glucose 133 H (units ( unknown) date) unknown) (unknown) (no (unknown) (unknown) Osmel Baxter was (units (unknown) date) admitted for further unknown) management of acute blood loss anemia, (unknown) (no (unknown) (unknown) Hct (units (unkno wn) date) unknown) (unknown) (no (unknown) (unknown) Hct 20.8 L* (units (un known) date) unknown) (unknown) (no (unknown) (unknown) Hct 24.5 L (units (unk nown) date) unknown) (unknown) (no (unknown) (unknown) Hct 24.9 L (units (unk nown) date) unknown) (unknown) (no (unknown) (unknown) He indicates his (units (unknown) date) pain is adequately unknown) controlled. No new complaints. (unknown) (no (unknown) (unknown) Hemoglobin A1c (units (unknown) date) unknown) (unknown) (no (unknown) (unknown) Hemoglobin A1c (units (unknown) date) unknown) (unknown) (no (unknown) (unknown) Hemoglobin A1c 6.5 H (uni ts (unknown) date) unknown) (unknown) (no (unknown) (unknown) Hgb (units (unkno wn) date) unknown) (unknown) (no (unknown) (unknown) Hgb 6.7 L* (units (unk nown) date) unknown) (unknown) (no (unknown) (unknown) Hgb 7.9 L (units (unkn own) date) unknown) (unknown) (no (unknown) (unknown) Hgb 8.2 L (units (unkn own) date) unknown) (unknown) (no (unknown) (unknown) Hx of (units (unkno wn) date) cholecystectomy unknown) (unknown) (no (unknown) (unknown) Hydrochlorothiazide (unit s (unknown) date) is not been ordered. unknown) (unknown) (no (unknown) (unknown) Hypertension (units (u nknown) date) unknown) (unknown) (no (unknown) (unknown) I spent a total of (units (unknown) date) [] minutes of unknown) critical care time on this patient's care (unknown) (no (unknown) (unknown) INR (units (unkno wn) date) unknown) (unknown) (no (unknown) (unknown) INR (units (unkno wn) date) unknown) (unknown) (no (unknown) (unknown) INR 1.2 (units (unkno wn) date) unknown) (unknown) (no (unknown) (unknown) In the ER, he (units ( unknown) date) received IV Lasix 80 unknown) mg in addition to his home oral dose of (unknown) (no (unknown) (unknown) Interval history: (units (unknown) date) unknown) (unknown) (no (unknown) (unknown) Labs (units (unkno wn) date) unknown) (unknown) (no (unknown) (unknown) Labs: (units (unkno wn) date) unknown) (unknown) (no (unknown) (unknown) Lactate (units (unkno wn) date) unknown) (unknown) (no (unknown) (unknown) Lactate (units (unkno wn) date) unknown) (unknown) (no (unknown) (unknown) Lactate 1.3 (units (un known) date) unknown) (unknown) (no (unknown) (unknown) Lipase (units (unkno wn) date) unknown) (unknown) (no (unknown) (unknown) Lipase (units (unkno wn) date) unknown) (unknown) (no (unknown) (unknown) Lipase 135 (units (unk nown) date) unknown) (unknown) (no (unknown) (unknown) Lymph # (Auto) (units (unknown) date) unknown) (unknown) (no (unknown) (unknown) Lymph # (Auto) 600 L (uni ts (unknown) date) unknown) (unknown) (no (unknown) (unknown) Lymph # (Auto) 800 L (uni ts (unknown) date) unknown) (unknown) (no (unknown) (unknown) Lymph % (Auto) (units (unknown) date) unknown) (unknown) (no (unknown) (unknown) Lymph % (Auto) 11.4 (unit s (unknown) date) L unknown) (unknown) (no (unknown) (unknown) Lymph % (Auto) 9.9 L (uni ts (unknown) date) unknown) (unknown) (no (unknown) (unknown) MCH (units (unkno wn) date) unknown) (unknown) (no (unknown) (unknown) MCH 24.6 L (units (unk nown) date) unknown) (unknown) (no (unknown) (unknown) MCH 25.9 L (units (unk nown) date) unknown) (unknown) (no (unknown) (unknown) MCHC (units (unkno wn) date) unknown) (unknown) (no (unknown) (unknown) MCHC 32.4 (units (unkn own) date) unknown) (unknown) (no (unknown) (unknown) MCHC 32.9 (units (unkn own) date) unknown) (unknown) (no (unknown) (unknown) MCV (units (unkno wn) date) unknown) (unknown) (no (unknown) (unknown) MCV 75.7 L (units (unk nown) date) unknown) (unknown) (no (unknown) (unknown) MCV 78.6 L (units (unk nown) date) unknown) (unknown) (no (unknown) (unknown) Magnesium (units (unkn own) date) unknown) (unknown) (no (unknown) (unknown) Magnesium (units (unkn own) date) unknown) (unknown) (no (unknown) (unknown) Magnesium 1.5 L (units (unknown) date) unknown) (unknown) (no (unknown) (unknown) Magnesium 1.7 (units ( unknown) date) unknown) (unknown) (no (unknown) (unknown) Medical History (units (unknown) date) (Reviewed 01/27/22 @ unknown) 07:53 by Tony Aceves MD) (unknown) (no (unknown) (unknown) Lajas # (Auto) (units ( unknown) date) unknown) (unknown) (no (unknown) (unknown) Lajas # (Auto) 500 (units (unknown) date) unknown) (unknown) (no (unknown) (unknown) Lajas # (Auto) 700 (units (unknown) date) unknown) (unknown) (no (unknown) (unknown) Lajas % (Auto) (units ( unknown) date) unknown) (unknown) (no (unknown) (unknown) Lajas % (Auto) 8.4 (units (unknown) date) unknown) (unknown) (no (unknown) (unknown) Lajas % (Auto) 9.8 (units (unknown) date) unknown) (unknown) (no (unknown) (unknown) NT-Pro-B Natriuret (units (unknown) date) Pep unknown) (unknown) (no (unknown) (unknown) NT-Pro-B Natriuret (units (unknown) date) Pep unknown) (unknown) (no (unknown) (unknown) NT-Pro-B Natriuret (units (unknown) date) Pep 7170 H unknown) (unknown) (no (unknown) (unknown) Neut # (Auto) (units ( unknown) date) unknown) (unknown) (no (unknown) (unknown) Neut # (Auto) 4600 (units (unknown) date) unknown) (unknown) (no (unknown) (unknown) Neut # (Auto) 5400 (units (unknown) date) unknown) (unknown) (no (unknown) (unknown) Neut % (Auto) (units ( unknown) date) unknown) (unknown) (no (unknown) (unknown) Neut % (Auto) 75.0 (units (unknown) date) unknown) (unknown) (no (unknown) (unknown) Neut % (Auto) 78.2 H (uni ts (unknown) date) unknown) (unknown) (no (unknown) (unknown) Objective (units (unkn own) date) unknown) (unknown) (no (unknown) (unknown) Other Adopted (units ( unknown) date) unknown) (unknown) (no (unknown) (unknown) Oxygen Delivery (units (unknown) date) Method Room Air unknown) (unknown) (no (unknown) (unknown) Oxygen Flow Rate 0 (units (unknown) date) unknown) (unknown) (no (unknown) (unknown) Oxygen Flow Rate 0 0 (uni ts (unknown) date) unknown) (unknown) (no (unknown) (unknown) PFSH (units (unkno wn) date) unknown) (unknown) (no (unknown) (unknown) PT (units (unkno wn) date) unknown) (unknown) (no (unknown) (unknown) PT (units (unkno wn) date) unknown) (unknown) (no (unknown) (unknown) PT 14.1 H (units (unkn own) date) unknown) (unknown) (no (unknown) (unknown) Patient is admitted (unit s (unknown) date) to the inpatient unknown) service due to the severity of disease, (unknown) (no (unknown) (unknown) Patient received 2 (units (unknown) date) units PRBC in the unknown) emergency department increasing his H+H (unknown) (no (unknown) (unknown) Patient's (units (unkn own) date) rivaroxaban, aspirin unknown) and clopidogrel are being held (unknown) (no (unknown) (unknown) Patient: (units (unkno wn) date) Osmel Baxter MR#: unknown) M000 (unknown) (no (unknown) (unknown) Plt Count (units (unkn own) date) unknown) (unknown) (no (unknown) (unknown) Plt Count 164 (units ( unknown) date) unknown) (unknown) (no (unknown) (unknown) Plt Count 206 (units ( unknown) date) unknown) (unknown) (no (unknown) (unknown) Poikilocytosis (units (unknown) date) unknown) (unknown) (no (unknown) (unknown) Poikilocytosis 1+ H (unit s (unknown) date) unknown) (unknown) (no (unknown) (unknown) Potassium (units (unkn own) date) unknown) (unknown) (no (unknown) (unknown) Potassium 4.1 (units ( unknown) date) unknown) (unknown) (no (unknown) (unknown) Potassium 4.3 (units ( unknown) date) unknown) (unknown) (no (unknown) (unknown) Probable left knee (units (unknown) date) cellulitis, acute, unknown) present on admission (unknown) (no (unknown) (unknown) Procalcitonin (units ( unknown) date) unknown) (unknown) (no (unknown) (unknown) Procalcitonin (units ( unknown) date) unknown) (unknown) (no (unknown) (unknown) Procalcitonin 0.50 (units (unknown) date) unknown) (unknown) (no (unknown) (unknown) Provider: (units (unkn own) date) Chary Ramirez MD unknown) (unknown) (no (unknown) (unknown) Pulse Oximetry 99 98 (uni ts (unknown) date) unknown) (unknown) (no (unknown) (unknown) Pulse Rate 61 63 63 (unit s (unknown) date) unknown) (unknown) (no (unknown) (unknown) Quality (units (unkno wn) date) unknown) (unknown) (no (unknown) (unknown) RBC (units (unkno wn) date) unknown) (unknown) (no (unknown) (unknown) RBC 2.75 L (units (unk nown) date) unknown) (unknown) (no (unknown) (unknown) RBC 3.16 L (units (unk nown) date) unknown) (unknown) (no (unknown) (unknown) RBC Morphology (units (unknown) date) unknown) (unknown) (no (unknown) (unknown) RBC Morphology Not (units (unknown) date) Reportable unknown) (unknown) (no (unknown) (unknown) RBC Morphology Not (units (unknown) date) Reportable unknown) (unknown) (no (unknown) (unknown) RDW (units (unkno wn) date) unknown) (unknown) (no (unknown) (unknown) RDW 23.2 H (units (unk nown) date) unknown) (unknown) (no (unknown) (unknown) RDW 24.5 H (units (unk nown) date) unknown) (unknown) (no (unknown) (unknown) Respiratory Rate 15 (unit s (unknown) date) 18 unknown) (unknown) (no (unknown) (unknown) Result Diagrams: (units (unknown) date) 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) (unknown) (no (unknown) (unknown) SARS-CoV-2 (PCR) (units (unknown) date) unknown) (unknown) (no (unknown) (unknown) SARS-CoV-2 (PCR) (units (unknown) date) unknown) (unknown) (no (unknown) (unknown) SARS-CoV-2 (PCR) (units (unknown) date) Negative unknown) (unknown) (no (unknown) (unknown) Signed By: (units (unk nown) date) unknown) (unknown) (no (unknown) (unknown) Sleep apnea (units (un known) date) unknown) (unknown) (no (unknown) (unknown) Smoking Status: (units (unknown) date) Former smoker unknown) (unknown) (no (unknown) (unknown) Social History (units (unknown) date) (Updated 09/25/18 @ unknown) 11:17 by Telma Dickey DO) (unknown) (no (unknown) (unknown) Sodium (units (unkno wn) date) unknown) (unknown) (no (unknown) (unknown) Sodium 132 L (units (u nknown) date) unknown) (unknown) (no (unknown) (unknown) Sodium 134 L (units (u nknown) date) unknown) (unknown) (no (unknown) (unknown) Subjective (units (unk nown) date) unknown) (unknown) (no (unknown) (unknown) Surgical History (units (unknown) date) (Reviewed 01/27/22 @ unknown) 07:53 by Tony Aceves MD) (unknown) (no (unknown) (unknown) Temperature 97.0 F L (uni ts (unknown) date) 97.4 F L unknown) (unknown) (no (unknown) (unknown) Time Patient Seen: (units (unknown) date) 10:45 unknown) (unknown) (no (unknown) (unknown) Time Spent With (units (unknown) date) Patient unknown) (unknown) (no (unknown) (unknown) Total Bilirubin (units (unknown) date) unknown) (unknown) (no (unknown) (unknown) Total Bilirubin 1.5 (unit s (unknown) date) H unknown) (unknown) (no (unknown) (unknown) Total Bilirubin 2.6 (unit s (unknown) date) H unknown) (unknown) (no (unknown) (unknown) Total Protein (units ( unknown) date) unknown) (unknown) (no (unknown) (unknown) Total Protein 6.4 (units (unknown) date) unknown) (unknown) (no (unknown) (unknown) Total Protein 7.1 (units (unknown) date) unknown) (unknown) (no (unknown) (unknown) Ur Culture (units (unk nown) date) Indicated? unknown) (unknown) (no (unknown) (unknown) Ur Culture (units (unk nown) date) Indicated? unknown) (unknown) (no (unknown) (unknown) Ur Culture (units (unk nown) date) Indicated? Specimen unknown) cultured (unknown) (no (unknown) (unknown) Urine Bacteria (units (unknown) date) unknown) (unknown) (no (unknown) (unknown) Urine Bacteria (units (unknown) date) unknown) (unknown) (no (unknown) (unknown) Urine Bacteria Few (unit s (unknown) date) (2-10) H unknown) (unknown) (no (unknown) (unknown) Urine RBC (units (unkn own) date) unknown) (unknown) (no (unknown) (unknown) Urine RBC (units (unkn own) date) unknown) (unknown) (no (unknown) (unknown) Urine RBC 0-1/hpf (units (unknown) date) unknown) (unknown) (no (unknown) (unknown) Urine WBC (units (unkn own) date) unknown) (unknown) (no (unknown) (unknown) Urine WBC (units (unkn own) date) unknown) (unknown) (no (unknown) (unknown) Urine WBC 30-100/hpf (uni ts (unknown) date) H unknown) (unknown) (no (unknown) (unknown) Urine Yeast (units (un known) date) unknown) (unknown) (no (unknown) (unknown) Urine Yeast (units (un known) date) unknown) (unknown) (no (unknown) (unknown) Urine Yeast (units (un known) date) 30-100/hpf H unknown) (unknown) (no (unknown) (unknown) VTE (units (unkno wn) date) unknown) (unknown) (no (unknown) (unknown) VTE Prophylaxis: (units (unknown) date) Wells risk score unknown) 1.5.? Pharmacological VTE prophylaxis is (unknown) (no (unknown) (unknown) Vital Signs (units (un known) date) unknown) (unknown) (no (unknown) (unknown) WBC (units (unkno wn) date) unknown) (unknown) (no (unknown) (unknown) WBC 5.9 (units (unkno wn) date) unknown) (unknown) (no (unknown) (unknown) WBC 7.1 (units (unkno wn) date) unknown) (unknown) (no (unknown) (unknown) [Embedded Image Not (unit s (unknown) date) Available] unknown) (unknown) (no (unknown) (unknown) acute kidney injury, (uni ts (unknown) date) and acute unknown) exacerbation of heart failure with reduced (unknown) (no (unknown) (unknown) admission (units (unkn own) date) unknown) (unknown) (no (unknown) (unknown) appears to be triple (uni ts (unknown) date) anti-platelet unknown) therapy, present on admission. Causing (unknown) (no (unknown) (unknown) contraindicated in (units (unknown) date) the setting of active unknown) bleeding [X] right sidedl SCD? Patient (unknown) (no (unknown) (unknown) details: x 9 (uni ts (unknown) date) months unknown) (unknown) (no (unknown) (unknown) ejection fraction. (units (unknown) date) As well for wound unknown) care and hematoma care. (unknown) (no (unknown) (unknown) evaluate. Consult (units (unknown) date) ordered. unknown) (unknown) (no (unknown) (unknown) from 6.7-7.9 and (units (unknown) date) 20.8-24.5 unknown) respectively. Today hemoglobin stable at 8.2. (unknown) (no (unknown) (unknown) hematoma left leg. (units (unknown) date) With skin compromise unknown) over the hematoma will have wound care (unknown) (no (unknown) (unknown) household members: (units (unknown) date) significant other unknown) (unknown) (no (unknown) (unknown) hydrochlorothiazide. (uni ts (unknown) date) Will increase daily unknown) furosemide to 40 mg daily. (unknown) (no (unknown) (unknown) is currently (units (u nknown) date) anticoagulated on unknown) rivaroxaban (unknown) (no (unknown) (unknown) marital status: (units (unknown) date) unknown) (unknown) (no (unknown) (unknown) midnights. (units (unk nown) date) unknown) (unknown) (no (unknown) (unknown) risks of further (units (unknown) date) disease progression unknown) and this stay is expected to exceed 2 (unknown) (no (unknown) (unknown) today; this time is (unit s (unknown) date) exclusive of unknown) procedural time. Result panel 51 (unknown) (no (unknown) (unknown) (no value) (units (unk nown) date) unknown) (unknown) (no (unknown) (unknown) Date of Service: (units (unknown) date) 01/27/22 unknown) (unknown) (no (unknown) (unknown) (no value) (units (unk nown) date) unknown) (unknown) (no (unknown) (unknown) - (units (unkno wn) date) unknown) (unknown) (no (unknown) (unknown) 01/27/22 05:00 (units (unknown) date) unknown) (unknown) (no (unknown) (unknown) [facility] [id number] (uni ts (unknown) date) [address] unknown) [place] [address] (unknown) (no (unknown) (unknown) Laboratory Results - (uni ts (unknown) date) last 24 hr unknown) (unknown) (no (unknown) (unknown) Progress Note (units ( unknown) date) unknown) (unknown) (no (unknown) (unknown) (no value) (units (unk nown) date) unknown) (unknown) (no (unknown) (unknown) 01:37 05:00 05:00 (units (unknown) date) unknown) (unknown) (no (unknown) (unknown) 05:00 05:00 (units (un known) date) unknown) (unknown) (no (unknown) (unknown) 01/26/22 01/26/22 (units (unknown) date) 01/26/22 unknown) (unknown) (no (unknown) (unknown) 01/27/22 01/27/22 (units (unknown) date) unknown) (unknown) (no (unknown) (unknown) 01/27/22 01/27/22 (units (unknown) date) 01/27/22 unknown) (unknown) (no (unknown) (unknown) 19:40 19:40 19:40 (units (unknown) date) unknown) (unknown) (no (unknown) (unknown) 20:21 20:47 22:00 (units (unknown) date) unknown) (unknown) (no (unknown) (unknown) 01/27/22 (units (unkno wn) date) unknown) (unknown) (no (unknown) (unknown) care is appreciated. (uni ts (unknown) date) unknown) (unknown) (no (unknown) (unknown) enzymes, Mag, PT/INR (uni ts (unknown) date) unknown) (unknown) (no (unknown) (unknown) (past 8 hours): (units (unknown) date) unknown) (unknown) (no (unknown) (unknown) * Carb controlled (units (unknown) date) diet with a.c. HS unknown) glucose checks (unknown) (no (unknown) (unknown) * Continue home dose (uni ts (unknown) date) of atorvastatin 40 mg unknown) p.o. at bedtime (unknown) (no (unknown) (unknown) * He will receive (units (unknown) date) his home dose of unknown) Lantus 30 units b.i.d. (unknown) (no (unknown) (unknown) * Low-dose (units (unk nown) date) correctional scale unknown) insulin and adjust as needed (unknown) (no (unknown) (unknown) * Orthopedic surgery (uni ts (unknown) date) has been consulted unknown) and will see the patient in the morning (unknown) (no (unknown) (unknown) * Today's A1c is 6.5 (uni ts (unknown) date) unknown) (unknown) (no (unknown) (unknown) 05:00 01/27/22 (units (unknown) date) unknown) (unknown) (no (unknown) (unknown) 08:20 01/27/22 (units (unknown) date) unknown) (unknown) (no (unknown) (unknown) 1. Acute blood loss (unit s (unknown) date) anemia likely unknown) secondary to over coagulation with what (unknown) (no (unknown) (unknown) 10:01 (units (unkno wn) date) unknown) (unknown) (no (unknown) (unknown) 2. Acute kidney (units (unknown) date) injury likely unknown) secondary to blood loss anemia, present on (unknown) (no (unknown) (unknown) 3. Acute (units (unkno wn) date) decompensated heart unknown) failure with reduced ejection fraction, present on (unknown) (no (unknown) (unknown) [id number] (units (unkno wn) date) unknown) (unknown) (no (unknown) (unknown) 4. Probable left (units (unknown) date) knee cellulitis, unknown) acute, present on admission (unknown) (no (unknown) (unknown) ALT (units (unkno wn) date) unknown) (unknown) (no (unknown) (unknown) ALT 23 (units (unkno wn) date) unknown) (unknown) (no (unknown) (unknown) ALT 27 (units (unkno wn) date) unknown) (unknown) (no (unknown) (unknown) AST (units (unkno wn) date) unknown) (unknown) (no (unknown) (unknown) AST 28 (units (unkno wn) date) unknown) (unknown) (no (unknown) (unknown) AST 30 (units (unkno wn) date) unknown) (unknown) (no (unknown) (unknown) Age/Sex: 76 / M (units (unknown) date) unknown) (unknown) (no (unknown) (unknown) Albumin (units (unkno wn) date) unknown) (unknown) (no (unknown) (unknown) Albumin 3.0 L (units ( unknown) date) unknown) (unknown) (no (unknown) (unknown) Albumin 3.6 (units (un known) date) unknown) (unknown) (no (unknown) (unknown) Albumin/Globulin (units (unknown) date) Ratio unknown) (unknown) (no (unknown) (unknown) Albumin/Globulin (units (unknown) date) Ratio 0.9 L unknown) (unknown) (no (unknown) (unknown) Albumin/Globulin (units (unknown) date) Ratio 1.0 unknown) (unknown) (no (unknown) (unknown) Alkaline Phosphatase (uni ts (unknown) date) unknown) (unknown) (no (unknown) (unknown) Alkaline Phosphatase (uni ts (unknown) date) 144 H unknown) (unknown) (no (unknown) (unknown) Alkaline Phosphatase (uni ts (unknown) date) 170 H unknown) (unknown) (no (unknown) (unknown) Anisocytosis (units (u nknown) date) unknown) (unknown) (no (unknown) (unknown) Anisocytosis 2+ H (units (unknown) date) unknown) (unknown) (no (unknown) (unknown) Anisocytosis 3+ H (units (unknown) date) unknown) (unknown) (no (unknown) (unknown) Antibody Screen (units (unknown) date) unknown) (unknown) (no (unknown) (unknown) Antibody Screen (units (unknown) date) unknown) (unknown) (no (unknown) (unknown) Antibody Screen (units (unknown) date) Negative unknown) (unknown) (no (unknown) (unknown) Anticoagulated (units (unknown) date) unknown) (unknown) (no (unknown) (unknown) Assessment + Plan (units (unknown) date) unknown) (unknown) (no (unknown) (unknown) Assessment + Plan (units (unknown) date) narrative: unknown) (unknown) (no (unknown) (unknown) Atrial fibrillation (unit s (unknown) date) unknown) (unknown) (no (unknown) (unknown) BUN (units (unkno wn) date) unknown) (unknown) (no (unknown) (unknown) BUN 60 H (units (unkno wn) date) unknown) (unknown) (no (unknown) (unknown) BUN 61 H (units (unkno wn) date) unknown) (unknown) (no (unknown) (unknown) BUN/Creatinine Ratio (uni ts (unknown) date) unknown) (unknown) (no (unknown) (unknown) BUN/Creatinine Ratio (uni ts (unknown) date) 19.2 unknown) (unknown) (no (unknown) (unknown) BUN/Creatinine Ratio (uni ts (unknown) date) 22.5 H unknown) (unknown) (no (unknown) (unknown) Baso # (Auto) (units ( unknown) date) unknown) (unknown) (no (unknown) (unknown) Baso # (Auto) 0 (units (unknown) date) unknown) (unknown) (no (unknown) (unknown) Baso # (Auto) 100 (units (unknown) date) unknown) (unknown) (no (unknown) (unknown) Baso % (Auto) (units ( unknown) date) unknown) (unknown) (no (unknown) (unknown) Baso % (Auto) 0.7 (units (unknown) date) unknown) (unknown) (no (unknown) (unknown) Baso % (Auto) 1.0 (units (unknown) date) unknown) (unknown) (no (unknown) (unknown) Blood Pressure 96/34 (uni ts (unknown) date) L 103/48 L 103/48 L unknown) (unknown) (no (unknown) (unknown) Blood Type (units (unk nown) date) unknown) (unknown) (no (unknown) (unknown) Blood Type (units (unk nown) date) unknown) (unknown) (no (unknown) (unknown) Blood Type A (units (u nknown) date) Negative unknown) (unknown) (no (unknown) (unknown) Calcium (units (unkno wn) date) unknown) (unknown) (no (unknown) (unknown) Calcium 8.0 L (units ( unknown) date) unknown) (unknown) (no (unknown) (unknown) Calcium 8.4 (units (un known) date) unknown) (unknown) (no (unknown) (unknown) Carbon Dioxide (units (unknown) date) unknown) (unknown) (no (unknown) (unknown) Carbon Dioxide 25 (units (unknown) date) unknown) (unknown) (no (unknown) (unknown) Carbon Dioxide 27 (units (unknown) date) unknown) (unknown) (no (unknown) (unknown) Chloride (units (unkno wn) date) unknown) (unknown) (no (unknown) (unknown) Chloride 100 (units (u nknown) date) unknown) (unknown) (no (unknown) (unknown) Chloride 97 L (units ( unknown) date) unknown) (unknown) (no (unknown) (unknown) Closely monitor (units (unknown) date) renal function and unknown) hold nephrotoxic medications (Lisinopril). (unknown) (no (unknown) (unknown) Code status: Full (units (unknown) date) code as discussed unknown) with the patient who identifies his son, (unknown) (no (unknown) (unknown) Consultants Dr. Aceves (uni ts (unknown) date) Orthopedic Surgery,? unknown) care and involvement in the patient?s (unknown) (no (unknown) (unknown) Continue carvedilol (unit s (unknown) date) 25 mg p.o. b.i.d., unknown) patient receives in 12.5 mg tablets (unknown) (no (unknown) (unknown) Continue to (units (un known) date) follow-up. unknown) (unknown) (no (unknown) (unknown) Coronary artery (units (unknown) date) disease unknown) (unknown) (no (unknown) (unknown) Coronary artery (units (unknown) date) disease, chronic unknown) (unknown) (no (unknown) (unknown) Creatinine (units (unk nown) date) unknown) (unknown) (no (unknown) (unknown) Creatinine 2.67 H (units (unknown) date) unknown) (unknown) (no (unknown) (unknown) Creatinine 3.18 H (units (unknown) date) unknown) (unknown) (no (unknown) (unknown) Critical Care time: (unit s (unknown) date) unknown) (unknown) (no (unknown) (unknown) Crossmatch (units (unk nown) date) unknown) (unknown) (no (unknown) (unknown) Crossmatch (units (unk nown) date) unknown) (unknown) (no (unknown) (unknown) Crossmatch See (units (unknown) date) Detail unknown) (unknown) (no (unknown) (unknown) : 1945 (units (unknown) date) Acct:[id number] unknown) (unknown) (no (unknown) (unknown) Date Patient Seen: (units (unknown) date) 01/27/22 unknown) (unknown) (no (unknown) (unknown) Deep Vein (units (unkn own) date) Thrombosis/Pulmonary unknown) Embolism Present on Admission: No (unknown) (no (unknown) (unknown) Diabetes (units (unkno wn) date) unknown) (unknown) (no (unknown) (unknown) Diabetes type 2, (units (unknown) date) appears to be well unknown) controlled (unknown) (no (unknown) (unknown) Dispo: Unknown at (units (unknown) date) this time unknown) (unknown) (no (unknown) (unknown) David his surrogate (units (unknown) date) and POA. unknown) (unknown) (no (unknown) (unknown) Dyslipidemia (units (u nknown) date) unknown) (unknown) (no (unknown) (unknown) Eos # (Auto) (units (u nknown) date) unknown) (unknown) (no (unknown) (unknown) Eos # (Auto) 200 (units (unknown) date) unknown) (unknown) (no (unknown) (unknown) Eos # (Auto) 200 (units (unknown) date) unknown) (unknown) (no (unknown) (unknown) Eos % (Auto) (units (u nknown) date) unknown) (unknown) (no (unknown) (unknown) Eos % (Auto) 2.8 (units (unknown) date) unknown) (unknown) (no (unknown) (unknown) Eos % (Auto) 2.8 (units (unknown) date) unknown) (unknown) (no (unknown) (unknown) Estimated GFR (units ( unknown) date) unknown) (unknown) (no (unknown) (unknown) Estimated GFR 19 L (units (unknown) date) unknown) (unknown) (no (unknown) (unknown) Estimated GFR 24 L (units (unknown) date) unknown) (unknown) (no (unknown) (unknown) Exam (units (unkno wn) date) unknown) (unknown) (no (unknown) (unknown) FEN: IV fluids: (units (unknown) date) saline lock, diet: unknown) carb controlled diet, labs: CBC, C/BMP, liver (unknown) (no (unknown) (unknown) Family History (units (unknown) date) (Reviewed 01/27/22 @ unknown) 07:53 by Tony Aceves MD) (unknown) (no (unknown) (unknown) GFR improved to 24 (units (unknown) date) today. Continue to unknown) follow (unknown) (no (unknown) (unknown) Globulin (units (unkno wn) date) unknown) (unknown) (no (unknown) (unknown) Globulin 3.4 (units (u nknown) date) unknown) (unknown) (no (unknown) (unknown) Globulin 3.5 (units (u nknown) date) unknown) (unknown) (no (unknown) (unknown) Glucose (units (unkno wn) date) unknown) (unknown) (no (unknown) (unknown) Glucose 130 H (units ( unknown) date) unknown) (unknown) (no (unknown) (unknown) Glucose 133 H (units ( unknown) date) unknown) (unknown) (no (unknown) (unknown) Osmel Baxter was (units (unknown) date) admitted for further unknown) management of acute blood loss anemia, (unknown) (no (unknown) (unknown) Hct (units (unkno wn) date) unknown) (unknown) (no (unknown) (unknown) Hct 20.8 L* (units (un known) date) unknown) (unknown) (no (unknown) (unknown) Hct 24.5 L (units (unk nown) date) unknown) (unknown) (no (unknown) (unknown) Hct 24.9 L (units (unk nown) date) unknown) (unknown) (no (unknown) (unknown) He indicates his (units (unknown) date) pain is adequately unknown) controlled. No new complaints. (unknown) (no (unknown) (unknown) He is currently (units (unknown) date) saline lock due to unknown) volume overload (unknown) (no (unknown) (unknown) Hemoglobin A1c (units (unknown) date) unknown) (unknown) (no (unknown) (unknown) Hemoglobin A1c (units (unknown) date) unknown) (unknown) (no (unknown) (unknown) Hemoglobin A1c 6.5 H (uni ts (unknown) date) unknown) (unknown) (no (unknown) (unknown) Hgb (units (unkno wn) date) unknown) (unknown) (no (unknown) (unknown) Hgb 6.7 L* (units (unk nown) date) unknown) (unknown) (no (unknown) (unknown) Hgb 7.9 L (units (unkn own) date) unknown) (unknown) (no (unknown) (unknown) Hgb 8.2 L (units (unkn own) date) unknown) (unknown) (no (unknown) (unknown) Hx of (units (unkno wn) date) cholecystectomy unknown) (unknown) (no (unknown) (unknown) Hydrochlorothiazide (unit s (unknown) date) is not been ordered. unknown) (unknown) (no (unknown) (unknown) Hypertension (units (u nknown) date) unknown) (unknown) (no (unknown) (unknown) I spent a total of (units (unknown) date) [] minutes of unknown) critical care time on this patient's care (unknown) (no (unknown) (unknown) INR (units (unkno wn) date) unknown) (unknown) (no (unknown) (unknown) INR (units (unkno wn) date) unknown) (unknown) (no (unknown) (unknown) INR 1.2 (units (unkno wn) date) unknown) (unknown) (no (unknown) (unknown) In the ER, he (units ( unknown) date) received IV Lasix 80 unknown) mg in addition to his home oral dose of (unknown) (no (unknown) (unknown) Interval history: (units (unknown) date) unknown) (unknown) (no (unknown) (unknown) Labs (units (unkno wn) date) unknown) (unknown) (no (unknown) (unknown) Labs: (units (unkno wn) date) unknown) (unknown) (no (unknown) (unknown) Lactate (units (unkno wn) date) unknown) (unknown) (no (unknown) (unknown) Lactate (units (unkno wn) date) unknown) (unknown) (no (unknown) (unknown) Lactate 1.3 (units (un known) date) unknown) (unknown) (no (unknown) (unknown) Lipase (units (unkno wn) date) unknown) (unknown) (no (unknown) (unknown) Lipase (units (unkno wn) date) unknown) (unknown) (no (unknown) (unknown) Lipase 135 (units (unk nown) date) unknown) (unknown) (no (unknown) (unknown) Lymph # (Auto) (units (unknown) date) unknown) (unknown) (no (unknown) (unknown) Lymph # (Auto) 600 L (uni ts (unknown) date) unknown) (unknown) (no (unknown) (unknown) Lymph # (Auto) 800 L (uni ts (unknown) date) unknown) (unknown) (no (unknown) (unknown) Lymph % (Auto) (units (unknown) date) unknown) (unknown) (no (unknown) (unknown) Lymph % (Auto) 11.4 (unit s (unknown) date) L unknown) (unknown) (no (unknown) (unknown) Lymph % (Auto) 9.9 L (uni ts (unknown) date) unknown) (unknown) (no (unknown) (unknown) MCH (units (unkno wn) date) unknown) (unknown) (no (unknown) (unknown) MCH 24.6 L (units (unk nown) date) unknown) (unknown) (no (unknown) (unknown) MCH 25.9 L (units (unk nown) date) unknown) (unknown) (no (unknown) (unknown) MCHC (units (unkno wn) date) unknown) (unknown) (no (unknown) (unknown) MCHC 32.4 (units (unkn own) date) unknown) (unknown) (no (unknown) (unknown) MCHC 32.9 (units (unkn own) date) unknown) (unknown) (no (unknown) (unknown) MCV (units (unkno wn) date) unknown) (unknown) (no (unknown) (unknown) MCV 75.7 L (units (unk nown) date) unknown) (unknown) (no (unknown) (unknown) MCV 78.6 L (units (unk nown) date) unknown) (unknown) (no (unknown) (unknown) Magnesium (units (unkn own) date) unknown) (unknown) (no (unknown) (unknown) Magnesium (units (unkn own) date) unknown) (unknown) (no (unknown) (unknown) Magnesium 1.5 L (units (unknown) date) unknown) (unknown) (no (unknown) (unknown) Magnesium 1.7 (units ( unknown) date) unknown) (unknown) (no (unknown) (unknown) Medical History (units (unknown) date) (Reviewed 01/27/22 @ unknown) 07:53 by Tony Aceves MD) (unknown) (no (unknown) (unknown) Lajas # (Auto) (units ( unknown) date) unknown) (unknown) (no (unknown) (unknown) Lajas # (Auto) 500 (units (unknown) date) unknown) (unknown) (no (unknown) (unknown) Lajas # (Auto) 700 (units (unknown) date) unknown) (unknown) (no (unknown) (unknown) Lajas % (Auto) (units ( unknown) date) unknown) (unknown) (no (unknown) (unknown) Lajas % (Auto) 8.4 (units (unknown) date) unknown) (unknown) (no (unknown) (unknown) Lajas % (Auto) 9.8 (units (unknown) date) unknown) (unknown) (no (unknown) (unknown) NT-Pro-B Natriuret (units (unknown) date) Pep unknown) (unknown) (no (unknown) (unknown) NT-Pro-B Natriuret (units (unknown) date) Pep unknown) (unknown) (no (unknown) (unknown) NT-Pro-B Natriuret (units (unknown) date) Pep 7170 H unknown) (unknown) (no (unknown) (unknown) Neut # (Auto) (units ( unknown) date) unknown) (unknown) (no (unknown) (unknown) Neut # (Auto) 4600 (units (unknown) date) unknown) (unknown) (no (unknown) (unknown) Neut # (Auto) 5400 (units (unknown) date) unknown) (unknown) (no (unknown) (unknown) Neut % (Auto) (units ( unknown) date) unknown) (unknown) (no (unknown) (unknown) Neut % (Auto) 75.0 (units (unknown) date) unknown) (unknown) (no (unknown) (unknown) Neut % (Auto) 78.2 H (uni ts (unknown) date) unknown) (unknown) (no (unknown) (unknown) Objective (units (unkn own) date) unknown) (unknown) (no (unknown) (unknown) Other Adopted (units ( unknown) date) unknown) (unknown) (no (unknown) (unknown) Oxygen Delivery (units (unknown) date) Method Room Air unknown) (unknown) (no (unknown) (unknown) Oxygen Flow Rate 0 (units (unknown) date) unknown) (unknown) (no (unknown) (unknown) Oxygen Flow Rate 0 0 (uni ts (unknown) date) unknown) (unknown) (no (unknown) (unknown) PFSH (units (unkno wn) date) unknown) (unknown) (no (unknown) (unknown) PT (units (unkno wn) date) unknown) (unknown) (no (unknown) (unknown) PT (units (unkno wn) date) unknown) (unknown) (no (unknown) (unknown) PT 14.1 H (units (unkn own) date) unknown) (unknown) (no (unknown) (unknown) Patient currently (units (unknown) date) being treated with unknown) vancomycin. (unknown) (no (unknown) (unknown) Patient is admitted (unit s (unknown) date) to the inpatient unknown) service due to the severity of disease, (unknown) (no (unknown) (unknown) Patient is currently (uni ts (unknown) date) recovering from unknown) biventricular heart catheterization (unknown) (no (unknown) (unknown) Patient received 2 (units (unknown) date) units PRBC in the unknown) emergency department increasing his H+H (unknown) (no (unknown) (unknown) Patient was fluid (units (unknown) date) resuscitated in the unknown) emergency department 2 L (unknown) (no (unknown) (unknown) Patient's proBNP is (unit s (unknown) date) almost 7200 unknown) (unknown) (no (unknown) (unknown) Patient's (units (unkn own) date) rivaroxaban, aspirin unknown) and clopidogrel are being held (unknown) (no (unknown) (unknown) Patient: (units (unkno wn) date) Osmel Baxter MR#: unknown) M000 (unknown) (no (unknown) (unknown) Plt Count (units (unkn own) date) unknown) (unknown) (no (unknown) (unknown) Plt Count 164 (units ( unknown) date) unknown) (unknown) (no (unknown) (unknown) Plt Count 206 (units ( unknown) date) unknown) (unknown) (no (unknown) (unknown) Poikilocytosis (units (unknown) date) unknown) (unknown) (no (unknown) (unknown) Poikilocytosis 1+ H (unit s (unknown) date) unknown) (unknown) (no (unknown) (unknown) Potassium (units (unkn own) date) unknown) (unknown) (no (unknown) (unknown) Potassium 4.1 (units ( unknown) date) unknown) (unknown) (no (unknown) (unknown) Potassium 4.3 (units ( unknown) date) unknown) (unknown) (no (unknown) (unknown) Procalcitonin (units ( unknown) date) unknown) (unknown) (no (unknown) (unknown) Procalcitonin (units ( unknown) date) unknown) (unknown) (no (unknown) (unknown) Procalcitonin 0.50 (units (unknown) date) unknown) (unknown) (no (unknown) (unknown) Provider: (units (unkn own) date) Chary Ramirez MD unknown) (unknown) (no (unknown) (unknown) Pulse Oximetry 99 98 (uni ts (unknown) date) unknown) (unknown) (no (unknown) (unknown) Pulse Rate 61 63 63 (unit s (unknown) date) unknown) (unknown) (no (unknown) (unknown) Quality (units (unkno wn) date) unknown) (unknown) (no (unknown) (unknown) RBC (units (unkno wn) date) unknown) (unknown) (no (unknown) (unknown) RBC 2.75 L (units (unk nown) date) unknown) (unknown) (no (unknown) (unknown) RBC 3.16 L (units (unk nown) date) unknown) (unknown) (no (unknown) (unknown) RBC Morphology (units (unknown) date) unknown) (unknown) (no (unknown) (unknown) RBC Morphology Not (units (unknown) date) Reportable unknown) (unknown) (no (unknown) (unknown) RBC Morphology Not (units (unknown) date) Reportable unknown) (unknown) (no (unknown) (unknown) RDW (units (unkno wn) date) unknown) (unknown) (no (unknown) (unknown) RDW 23.2 H (units (unk nown) date) unknown) (unknown) (no (unknown) (unknown) RDW 24.5 H (units (unk nown) date) unknown) (unknown) (no (unknown) (unknown) Respiratory Rate 15 (unit s (unknown) date) 18 unknown) (unknown) (no (unknown) (unknown) Result Diagrams: (units (unknown) date) 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) (unknown) (no (unknown) (unknown) SARS-CoV-2 (PCR) (units (unknown) date) unknown) (unknown) (no (unknown) (unknown) SARS-CoV-2 (PCR) (units (unknown) date) unknown) (unknown) (no (unknown) (unknown) SARS-CoV-2 (PCR) (units (unknown) date) Negative unknown) (unknown) (no (unknown) (unknown) Signed By: (units (unk nown) date) unknown) (unknown) (no (unknown) (unknown) Sleep apnea (units (un known) date) unknown) (unknown) (no (unknown) (unknown) Smoking Status: (units (unknown) date) Former smoker unknown) (unknown) (no (unknown) (unknown) Social History (units (unknown) date) (Updated 09/25/18 @ unknown) 11:17 by Telma Dickey DO) (unknown) (no (unknown) (unknown) Sodium (units (unkno wn) date) unknown) (unknown) (no (unknown) (unknown) Sodium 132 L (units (u nknown) date) unknown) (unknown) (no (unknown) (unknown) Sodium 134 L (units (u nknown) date) unknown) (unknown) (no (unknown) (unknown) Subjective (units (unk nown) date) unknown) (unknown) (no (unknown) (unknown) Surgical History (units (unknown) date) (Reviewed 01/27/22 @ unknown) 07:53 by Tony Aceves MD) (unknown) (no (unknown) (unknown) Temperature 97.0 F L (uni ts (unknown) date) 97.4 F L unknown) (unknown) (no (unknown) (unknown) Time Patient Seen: (units (unknown) date) 10:45 unknown) (unknown) (no (unknown) (unknown) Time Spent With (units (unknown) date) Patient unknown) (unknown) (no (unknown) (unknown) Total Bilirubin (units (unknown) date) unknown) (unknown) (no (unknown) (unknown) Total Bilirubin 1.5 (unit s (unknown) date) H unknown) (unknown) (no (unknown) (unknown) Total Bilirubin 2.6 (unit s (unknown) date) H unknown) (unknown) (no (unknown) (unknown) Total Protein (units ( unknown) date) unknown) (unknown) (no (unknown) (unknown) Total Protein 6.4 (units (unknown) date) unknown) (unknown) (no (unknown) (unknown) Total Protein 7.1 (units (unknown) date) unknown) (unknown) (no (unknown) (unknown) Ur Culture (units (unk nown) date) Indicated? unknown) (unknown) (no (unknown) (unknown) Ur Culture (units (unk nown) date) Indicated? unknown) (unknown) (no (unknown) (unknown) Ur Culture (units (unk nown) date) Indicated? Specimen unknown) cultured (unknown) (no (unknown) (unknown) Urine Bacteria (units (unknown) date) unknown) (unknown) (no (unknown) (unknown) Urine Bacteria (units (unknown) date) unknown) (unknown) (no (unknown) (unknown) Urine Bacteria Few (units (unknown) date) (2-10) H unknown) (unknown) (no (unknown) (unknown) Urine RBC (units (unkn own) date) unknown) (unknown) (no (unknown) (unknown) Urine RBC (units (unkn own) date) unknown) (unknown) (no (unknown) (unknown) Urine RBC 0-1/hpf (units (unknown) date) unknown) (unknown) (no (unknown) (unknown) Urine WBC (units (unkn own) date) unknown) (unknown) (no (unknown) (unknown) Urine WBC (units (unkn own) date) unknown) (unknown) (no (unknown) (unknown) Urine WBC 30-100/hpf (uni ts (unknown) date) H unknown) (unknown) (no (unknown) (unknown) Urine Yeast (units (un known) date) unknown) (unknown) (no (unknown) (unknown) Urine Yeast (units (un known) date) unknown) (unknown) (no (unknown) (unknown) Urine Yeast (units (un known) date) 30-100/hpf H unknown) (unknown) (no (unknown) (unknown) VTE (units (unkno wn) date) unknown) (unknown) (no (unknown) (unknown) VTE Prophylaxis: (units (unknown) date) Wells risk score unknown) 1.5.? 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 Causing (unknown) (no (unknown) (unknown) contraindicated in (units (unknown) date) the setting of active unknown) bleeding [X] right sidedl SCD? Patient (unknown) (no (unknown) (unknown) details: x 9 (uni ts (unknown) date) months unknown) (unknown) (no (unknown) (unknown) ejection fraction. (units (unknown) date) As well for wound unknown) care and hematoma care. (unknown) (no (unknown) (unknown) evaluate. Consult (units (unknown) date) ordered. unknown) (unknown) (no (unknown) (unknown) from 6.7-7.9 and (units (unknown) date) 20.8-24.5 unknown) respectively. Today hemoglobin stable at 8.2. (unknown) (no (unknown) (unknown) hematoma left leg. (units (unknown) date) With skin compromise unknown) over the hematoma will have wound care (unknown) (no (unknown) (unknown) household members: (units (unknown) date) significant other unknown) (unknown) (no (unknown) (unknown) hydrochlorothiazide. (uni ts (unknown) date) Will increase daily unknown) furosemide to 40 mg daily. (unknown) (no (unknown) (unknown) is currently (units (u nknown) date) anticoagulated on unknown) rivaroxaban (unknown) (no (unknown) (unknown) marital status: (units (unknown) date) unknown) (unknown) (no (unknown) (unknown) midnights. (units (unk nown) date) unknown) (unknown) (no (unknown) (unknown) risks of further (units (unknown) date) disease progression unknown) and this stay is expected to exceed 2 (unknown) (no (unknown) (unknown) today; this time is (unit s (unknown) date) exclusive of unknown) procedural time. Result panel 52 (unknown) (no (unknown) (unknown) (no value) (units (unk nown) date) unknown) (unknown) (no (unknown) (unknown) Date of Service: (units (unknown) date) 01/27/22 unknown) (unknown) (no (unknown) (unknown) (no value) (units (unk nown) date) unknown) (unknown) (no (unknown) (unknown) - (units (unkno wn) date) unknown) (unknown) (no (unknown) (unknown) 01/27/22 05:00 (units (unknown) date) unknown) (unknown) (no (unknown) (unknown) [facility] [id number]uni [address] (unknown) date) [address] unknown) [place] [address] (unknown) (no (unknown) (unknown) Laboratory Results - (uni ts (unknown) date) last 24 hr unknown) (unknown) (no (unknown) (unknown) Progress Note (units ( unknown) date) unknown) (unknown) (no (unknown) (unknown) (no value) (units (unk nown) date) unknown) (unknown) (no (unknown) (unknown) 01:37 05:00 05:00 (units (unknown) date) unknown) (unknown) (no (unknown) (unknown) 05:00 05:00 (units (un known) date) unknown) (unknown) (no (unknown) (unknown) 01/26/22 01/26/22 (units (unknown) date) 01/26/22 unknown) (unknown) (no (unknown) (unknown) 01/27/22 01/27/22 (units (unknown) date) unknown) (unknown) (no (unknown) (unknown) 01/27/22 01/27/22 (units (unknown) date) 01/27/22 unknown) (unknown) (no (unknown) (unknown) 19:40 19:40 19:40 (units (unknown) date) unknown) (unknown) (no (unknown) (unknown) 20:21 20:47 22:00 (units (unknown) date) unknown) (unknown) (no (unknown) (unknown) 01/27/22 (units (unkno wn) date) unknown) (unknown) (no (unknown) (unknown) A1c is 6.5 (units (unk nown) date) unknown) (unknown) (no (unknown) (unknown) care is appreciated. (uni ts (unknown) date) unknown) (unknown) (no (unknown) (unknown) enzymes, Mag, PT/INR (uni ts (unknown) date) unknown) (unknown) (no (unknown) (unknown) (past 8 hours): (units (unknown) date) unknown) (unknown) (no (unknown) (unknown) 05:00 01/27/22 (units (unknown) date) unknown) (unknown) (no (unknown) (unknown) 08:20 01/27/22 (units (unknown) date) unknown) (unknown) (no (unknown) (unknown) 1. Acute blood loss (unit s (unknown) date) anemia likely unknown) secondary to over coagulation with what (unknown) (no (unknown) (unknown) 10:01 (units (unkno wn) date) unknown) (unknown) (no (unknown) (unknown) 2. Acute kidney (units (unknown) date) injury likely unknown) secondary to blood loss anemia, present on (unknown) (no (unknown) (unknown) 3. Acute (units (unkno wn) date) decompensated heart unknown) failure with reduced ejection fraction, present on (unknown) (no (unknown) (unknown) [id number] (units (unkno wn) date) unknown) (unknown) (no (unknown) (unknown) 4. Probable left (units (unknown) date) knee cellulitis, unknown) acute, present on admission (unknown) (no (unknown) (unknown) 5. Coronary artery (units (unknown) date) disease, chronic unknown) (unknown) (no (unknown) (unknown) 6. Diabetes type 2, (unit s (unknown) date) appears to be well unknown) controlled (unknown) (no (unknown) (unknown) ALT (units (unkno wn) date) unknown) (unknown) (no (unknown) (unknown) ALT 23 (units (unkno wn) date) unknown) (unknown) (no (unknown) (unknown) ALT 27 (units (unkno wn) date) unknown) (unknown) (no (unknown) (unknown) AST (units (unkno wn) date) unknown) (unknown) (no (unknown) (unknown) AST 28 (units (unkno wn) date) unknown) (unknown) (no (unknown) (unknown) AST 30 (units (unkno wn) date) unknown) (unknown) (no (unknown) (unknown) Age/Sex: 76 / M (units (unknown) date) unknown) (unknown) (no (unknown) (unknown) Albumin (units (unkno wn) date) unknown) (unknown) (no (unknown) (unknown) Albumin 3.0 L (units ( unknown) date) unknown) (unknown) (no (unknown) (unknown) Albumin 3.6 (units (un known) date) unknown) (unknown) (no (unknown) (unknown) Albumin/Globulin (units (unknown) date) Ratio unknown) (unknown) (no (unknown) (unknown) Albumin/Globulin (units (unknown) date) Ratio 0.9 L unknown) (unknown) (no (unknown) (unknown) Albumin/Globulin (units (unknown) date) Ratio 1.0 unknown) (unknown) (no (unknown) (unknown) Alkaline Phosphatase (uni ts (unknown) date) unknown) (unknown) (no (unknown) (unknown) Alkaline Phosphatase (uni ts (unknown) date) 144 H unknown) (unknown) (no (unknown) (unknown) Alkaline Phosphatase (uni ts (unknown) date) 170 H unknown) (unknown) (no (unknown) (unknown) Anisocytosis (units (u nknown) date) unknown) (unknown) (no (unknown) (unknown) Anisocytosis 2+ H (units (unknown) date) unknown) (unknown) (no (unknown) (unknown) Anisocytosis 3+ H (units (unknown) date) unknown) (unknown) (no (unknown) (unknown) Antibody Screen (units (unknown) date) unknown) (unknown) (no (unknown) (unknown) Antibody Screen (units (unknown) date) unknown) (unknown) (no (unknown) (unknown) Antibody Screen (units (unknown) date) Negative unknown) (unknown) (no (unknown) (unknown) Anticoagulated (units (unknown) date) unknown) (unknown) (no (unknown) (unknown) Assessment + Plan (units (unknown) date) unknown) (unknown) (no (unknown) (unknown) Assessment + Plan (units (unknown) date) narrative: unknown) (unknown) (no (unknown) (unknown) Atrial fibrillation (unit s (unknown) date) unknown) (unknown) (no (unknown) (unknown) BUN (units (unkno wn) date) unknown) (unknown) (no (unknown) (unknown) BUN 60 H (units (unkno wn) date) unknown) (unknown) (no (unknown) (unknown) BUN 61 H (units (unkno wn) date) unknown) (unknown) (no (unknown) (unknown) BUN/Creatinine Ratio (uni ts (unknown) date) unknown) (unknown) (no (unknown) (unknown) BUN/Creatinine Ratio (uni ts (unknown) date) 19.2 unknown) (unknown) (no (unknown) (unknown) BUN/Creatinine Ratio (uni ts (unknown) date) 22.5 H unknown) (unknown) (no (unknown) (unknown) Baso # (Auto) (units ( unknown) date) unknown) (unknown) (no (unknown) (unknown) Baso # (Auto) 0 (units (unknown) date) unknown) (unknown) (no (unknown) (unknown) Baso # (Auto) 100 (units (unknown) date) unknown) (unknown) (no (unknown) (unknown) Baso % (Auto) (units ( unknown) date) unknown) (unknown) (no (unknown) (unknown) Baso % (Auto) 0.7 (units (unknown) date) unknown) (unknown) (no (unknown) (unknown) Baso % (Auto) 1.0 (units (unknown) date) unknown) (unknown) (no (unknown) (unknown) Blood Pressure 96/34 (uni ts (unknown) date) L 103/48 L 103/48 L unknown) (unknown) (no (unknown) (unknown) Blood Type (units (unk nown) date) unknown) (unknown) (no (unknown) (unknown) Blood Type (units (unk nown) date) unknown) (unknown) (no (unknown) (unknown) Blood Type A (units (u nknown) date) Negative unknown) (unknown) (no (unknown) (unknown) Calcium (units (unkno wn) date) unknown) (unknown) (no (unknown) (unknown) Calcium 8.0 L (units ( unknown) date) unknown) (unknown) (no (unknown) (unknown) Calcium 8.4 (units (u nknown) date) unknown) (unknown) (no (unknown) (unknown) Carb controlled diet (uni ts (unknown) date) with a.c. HS glucose unknown) checks (unknown) (no (unknown) (unknown) Carbon Dioxide (units (unknown) date) unknown) (unknown) (no (unknown) (unknown) Carbon Dioxide 25 (units (unknown) date) unknown) (unknown) (no (unknown) (unknown) Carbon Dioxide 27 (units (unknown) date) unknown) (unknown) (no (unknown) (unknown) Chloride (units (unkno wn) date) unknown) (unknown) (no (unknown) (unknown) Chloride 100 (units (u nknown) date) unknown) (unknown) (no (unknown) (unknown) Chloride 97 L (units ( unknown) date) unknown) (unknown) (no (unknown) (unknown) Closely monitor (units (unknown) date) renal function and unknown) hold nephrotoxic medications (Lisinopril). (unknown) (no (unknown) (unknown) Code status: Full (units (unknown) date) code as discussed unknown) with the patient who identifies his son, (unknown) (no (unknown) (unknown) Consultants Dr. Aceves (uni ts (unknown) date) Orthopedic Surgery,? unknown) care and involvement in the patient?s (unknown) (no (unknown) (unknown) Continue carvedilol (unit s (unknown) date) 25 mg p.o. b.i.d., unknown) patient receives in 12.5 mg tablets (unknown) (no (unknown) (unknown) Continue home dose (units (unknown) date) of atorvastatin 40 mg unknown) p.o. at bedtime (unknown) (no (unknown) (unknown) Continue to (units (un known) date) follow-up. unknown) (unknown) (no (unknown) (unknown) Coronary artery (units (unknown) date) disease unknown) (unknown) (no (unknown) (unknown) Creatinine (units (unk nown) date) unknown) (unknown) (no (unknown) (unknown) Creatinine 2.67 H (units (unknown) date) unknown) (unknown) (no (unknown) (unknown) Creatinine 3.18 H (units (unknown) date) unknown) (unknown) (no (unknown) (unknown) Critical Care time: (unit s (unknown) date) unknown) (unknown) (no (unknown) (unknown) Crossmatch (units (unk nown) date) unknown) (unknown) (no (unknown) (unknown) Crossmatch (units (unk nown) date) unknown) (unknown) (no (unknown) (unknown) Crossmatch See (units (unknown) date) Detail unknown) (unknown) (no (unknown) (unknown) : 1945 (units (unknown) date) Acct:[id number] unknown) (unknown) (no (unknown) (unknown) Date Patient Seen: (units (unknown) date) 01/27/22 unknown) (unknown) (no (unknown) (unknown) Deep Vein (units (unkn own) date) Thrombosis/Pulmonary unknown) Embolism Present on Admission: No (unknown) (no (unknown) (unknown) Diabetes (units (unkno wn) date) unknown) (unknown) (no (unknown) (unknown) Dispo: Unknown at (units (unknown) date) this time unknown) (unknown) (no (unknown) (unknown) David his surrogate (units (unknown) date) and POA. unknown) (unknown) (no (unknown) (unknown) Dyslipidemia (units (u nknown) date) unknown) (unknown) (no (unknown) (unknown) Eos # (Auto) (units (u nknown) date) unknown) (unknown) (no (unknown) (unknown) Eos # (Auto) 200 (units (unknown) date) unknown) (unknown) (no (unknown) (unknown) Eos # (Auto) 200 (units (unknown) date) unknown) (unknown) (no (unknown) (unknown) Eos % (Auto) (units (u nknown) date) unknown) (unknown) (no (unknown) (unknown) Eos % (Auto) 2.8 (units (unknown) date) unknown) (unknown) (no (unknown) (unknown) Eos % (Auto) 2.8 (units (unknown) date) unknown) (unknown) (no (unknown) (unknown) Estimated GFR (units ( unknown) date) unknown) (unknown) (no (unknown) (unknown) Estimated GFR 19 L (units (unknown) date) unknown) (unknown) (no (unknown) (unknown) Estimated GFR 24 L (units (unknown) date) unknown) (unknown) (no (unknown) (unknown) Exam (units (unkno wn) date) unknown) (unknown) (no (unknown) (unknown) FEN: IV fluids: (units (unknown) date) saline lock, diet: unknown) carb controlled diet, labs: CBC, C/BMP, liver (unknown) (no (unknown) (unknown) Family History (units (unknown) date) (Reviewed 01/27/22 @ unknown) 07:53 by Tony Aceves MD) (unknown) (no (unknown) (unknown) GFR improved to 24 (units (unknown) date) today. Continue to unknown) follow (unknown) (no (unknown) (unknown) Globulin (units (unkno wn) date) unknown) (unknown) (no (unknown) (unknown) Globulin 3.4 (units (u nknown) date) unknown) (unknown) (no (unknown) (unknown) Globulin 3.5 (units (u nknown) date) unknown) (unknown) (no (unknown) (unknown) Glucose (units (unkno wn) date) unknown) (unknown) (no (unknown) (unknown) Glucose 130 H (units ( unknown) date) unknown) (unknown) (no (unknown) (unknown) Glucose 133 H (units ( unknown) date) unknown) (unknown) (no (unknown) (unknown) Osmel Baxter was (units (unknown) date) admitted for further unknown) management of acute blood loss anemia, (unknown) (no (unknown) (unknown) Hct (units (unkno wn) date) unknown) (unknown) (no (unknown) (unknown) Hct 20.8 L* (units (un known) date) unknown) (unknown) (no (unknown) (unknown) Hct 24.5 L (units (unk nown) date) unknown) (unknown) (no (unknown) (unknown) Hct 24.9 L (units (unk nown) date) unknown) (unknown) (no (unknown) (unknown) He indicates his (units (unknown) date) pain is adequately unknown) controlled. No new complaints. (unknown) (no (unknown) (unknown) He is currently (units (unknown) date) saline lock due to unknown) volume overload (unknown) (no (unknown) (unknown) He will receive his (unit s (unknown) date) home dose of Lantus unknown) 30 units b.i.d. (unknown) (no (unknown) (unknown) Hemoglobin A1c (units (unknown) date) unknown) (unknown) (no (unknown) (unknown) Hemoglobin A1c (units (unknown) date) unknown) (unknown) (no (unknown) (unknown) Hemoglobin A1c 6.5 H (uni ts (unknown) date) unknown) (unknown) (no (unknown) (unknown) Hgb (units (unkno wn) date) unknown) (unknown) (no (unknown) (unknown) Hgb 6.7 L* (units (unk nown) date) unknown) (unknown) (no (unknown) (unknown) Hgb 7.9 L (units (unkn own) date) unknown) (unknown) (no (unknown) (unknown) Hgb 8.2 L (units (unkn own) date) unknown) (unknown) (no (unknown) (unknown) Hx of (units (unkno wn) date) cholecystectomy unknown) (unknown) (no (unknown) (unknown) Hydrochlorothiazide (unit s (unknown) date) is not been ordered. unknown) (unknown) (no (unknown) (unknown) Hypertension (units (u nknown) date) unknown) (unknown) (no (unknown) (unknown) I spent a total of (units (unknown) date) [] minutes of unknown) critical care time on this patient's care (unknown) (no (unknown) (unknown) INR (units (unkno wn) date) unknown) (unknown) (no (unknown) (unknown) INR (units (unkno wn) date) unknown) (unknown) (no (unknown) (unknown) INR 1.2 (units (unkno wn) date) unknown) (unknown) (no (unknown) (unknown) In the ER, he (units ( unknown) date) received IV Lasix 80 unknown) mg in addition to his home oral dose of (unknown) (no (unknown) (unknown) Interval history: (units (unknown) date) unknown) (unknown) (no (unknown) (unknown) Labs (units (unkno wn) date) unknown) (unknown) (no (unknown) (unknown) Labs: (units (unkno wn) date) unknown) (unknown) (no (unknown) (unknown) Lactate (units (unkno wn) date) unknown) (unknown) (no (unknown) (unknown) Lactate (units (unkno wn) date) unknown) (unknown) (no (unknown) (unknown) Lactate 1.3 (units (un known) date) unknown) (unknown) (no (unknown) (unknown) Lipase (units (unkno wn) date) unknown) (unknown) (no (unknown) (unknown) Lipase (units (unkno wn) date) unknown) (unknown) (no (unknown) (unknown) Lipase 135 (units (unk nown) date) unknown) (unknown) (no (unknown) (unknown) Low-dose (units (unkno wn) date) correctional scale unknown) insulin and adjust as needed (unknown) (no (unknown) (unknown) Lymph # (Auto) (units (unknown) date) unknown) (unknown) (no (unknown) (unknown) Lymph # (Auto) 600 L (uni ts (unknown) date) unknown) (unknown) (no (unknown) (unknown) Lymph # (Auto) 800 L (uni ts (unknown) date) unknown) (unknown) (no (unknown) (unknown) Lymph % (Auto) (units (unknown) date) unknown) (unknown) (no (unknown) (unknown) Lymph % (Auto) 11.4 (unit s (unknown) date) L unknown) (unknown) (no (unknown) (unknown) Lymph % (Auto) 9.9 L (uni ts (unknown) date) unknown) (unknown) (no (unknown) (unknown) MCH (units (unkno wn) date) unknown) (unknown) (no (unknown) (unknown) MCH 24.6 L (units (unk nown) date) unknown) (unknown) (no (unknown) (unknown) MCH 25.9 L (units (unk nown) date) unknown) (unknown) (no (unknown) (unknown) MCHC (units (unkno wn) date) unknown) (unknown) (no (unknown) (unknown) MCHC 32.4 (units (unkn own) date) unknown) (unknown) (no (unknown) (unknown) MCHC 32.9 (units (unkn own) date) unknown) (unknown) (no (unknown) (unknown) MCV (units (unkno wn) date) unknown) (unknown) (no (unknown) (unknown) MCV 75.7 L (units (unk nown) date) unknown) (unknown) (no (unknown) (unknown) MCV 78.6 L (units (unk nown) date) unknown) (unknown) (no (unknown) (unknown) Magnesium (units (unkn own) date) unknown) (unknown) (no (unknown) (unknown) Magnesium (units (unkn own) date) unknown) (unknown) (no (unknown) (unknown) Magnesium 1.5 L (units (unknown) date) unknown) (unknown) (no (unknown) (unknown) Magnesium 1.7 (units ( unknown) date) unknown) (unknown) (no (unknown) (unknown) Medical History (units (unknown) date) (Reviewed 01/27/22 @ unknown) 07:53 by Tony Aceves MD) (unknown) (no (unknown) (unknown) Lajas # (Auto) (units ( unknown) date) unknown) (unknown) (no (unknown) (unknown) Lajas # (Auto) 500 (units (unknown) date) unknown) (unknown) (no (unknown) (unknown) Lajas # (Auto) 700 (units (unknown) date) unknown) (unknown) (no (unknown) (unknown) Lajas % (Auto) (units ( unknown) date) unknown) (unknown) (no (unknown) (unknown) Lajas % (Auto) 8.4 (units (unknown) date) unknown) (unknown) (no (unknown) (unknown) Lajas % (Auto) 9.8 (units (unknown) date) unknown) (unknown) (no (unknown) (unknown) NT-Pro-B Natriuret (units (unknown) date) Pep unknown) (unknown) (no (unknown) (unknown) NT-Pro-B Natriuret (units (unknown) date) Pep unknown) (unknown) (no (unknown) (unknown) NT-Pro-B Natriuret (units (unknown) date) Pep 7170 H unknown) (unknown) (no (unknown) (unknown) Neut # (Auto) (units ( unknown) date) unknown) (unknown) (no (unknown) (unknown) Neut # (Auto) 4600 (units (unknown) date) unknown) (unknown) (no (unknown) (unknown) Neut # (Auto) 5400 (units (unknown) date) unknown) (unknown) (no (unknown) (unknown) Neut % (Auto) (units ( unknown) date) unknown) (unknown) (no (unknown) (unknown) Neut % (Auto) 75.0 (units (unknown) date) unknown) (unknown) (no (unknown) (unknown) Neut % (Auto) 78.2 H (uni ts (unknown) date) unknown) (unknown) (no (unknown) (unknown) Objective (units (unkn own) date) unknown) (unknown) (no (unknown) (unknown) Orthopedic surgery (units (unknown) date) has been consulted unknown) and seen the patient. (unknown) (no (unknown) (unknown) Other Adopted (units ( unknown) date) unknown) (unknown) (no (unknown) (unknown) Oxygen Delivery (units (unknown) date) Method Room Air unknown) (unknown) (no (unknown) (unknown) Oxygen Flow Rate 0 (units (unknown) date) unknown) (unknown) (no (unknown) (unknown) Oxygen Flow Rate 0 0 (uni ts (unknown) date) unknown) (unknown) (no (unknown) (unknown) PFSH (units (unkno wn) date) unknown) (unknown) (no (unknown) (unknown) PT (units (unkno wn) date) unknown) (unknown) (no (unknown) (unknown) PT (units (unkno wn) date) unknown) (unknown) (no (unknown) (unknown) PT 14.1 H (units (unkn own) date) unknown) (unknown) (no (unknown) (unknown) Patient currently (units (unknown) date) being treated with unknown) vancomycin. This is essentially (unknown) (no (unknown) (unknown) Patient is admitted (unit s (unknown) date) to the inpatient unknown) service due to the severity of disease, (unknown) (no (unknown) (unknown) Patient is currently (uni ts (unknown) date) recovering from unknown) biventricular heart catheterization (unknown) (no (unknown) (unknown) Patient received 2 (units (unknown) date) units PRBC in the unknown) emergency department increasing his H+H (unknown) (no (unknown) (unknown) Patient was fluid (units (unknown) date) resuscitated in the unknown) emergency department 2 L (unknown) (no (unknown) (unknown) Patient's proBNP is (unit s (unknown) date) almost 7200 unknown) (unknown) (no (unknown) (unknown) Patient's (units (unkn own) date) rivaroxaban, aspirin unknown) and clopidogrel are being held (unknown) (no (unknown) (unknown) Patient: (units (unkno wn) date) Osmel Baxter MR#: unknown) [id number] (unknown) (no (unknown) (unknown) Plt Count (units (unkn own) date) unknown) (unknown) (no (unknown) (unknown) Plt Count 164 (units ( unknown) date) unknown) (unknown) (no (unknown) (unknown) Plt Count 206 (units ( unknown) date) unknown) (unknown) (no (unknown) (unknown) Poikilocytosis (units (unknown) date) unknown) (unknown) (no (unknown) (unknown) Poikilocytosis 1+ H (unit s (unknown) date) unknown) (unknown) (no (unknown) (unknown) Potassium (units (unkn own) date) unknown) (unknown) (no (unknown) (unknown) Potassium 4.1 (units ( unknown) date) unknown) (unknown) (no (unknown) (unknown) Potassium 4.3 (units ( unknown) date) unknown) (unknown) (no (unknown) (unknown) Procalcitonin (units ( unknown) date) unknown) (unknown) (no (unknown) (unknown) Procalcitonin (units ( unknown) date) unknown) (unknown) (no (unknown) (unknown) Procalcitonin 0.50 (units (unknown) date) unknown) (unknown) (no (unknown) (unknown) Provider: (units (unkn own) date) Chary Ramirez MD unknown) (unknown) (no (unknown) (unknown) Pulse Oximetry 99 98 (uni ts (unknown) date) unknown) (unknown) (no (unknown) (unknown) Pulse Rate 61 63 63 (unit s (unknown) date) unknown) (unknown) (no (unknown) (unknown) Quality (units (unkno wn) date) unknown) (unknown) (no (unknown) (unknown) RBC (units (unkno wn) date) unknown) (unknown) (no (unknown) (unknown) RBC 2.75 L (units (unk nown) date) unknown) (unknown) (no (unknown) (unknown) RBC 3.16 L (units (unk nown) date) unknown) (unknown) (no (unknown) (unknown) RBC Morphology (units (unknown) date) unknown) (unknown) (no (unknown) (unknown) RBC Morphology Not (units (unknown) date) Reportable unknown) (unknown) (no (unknown) (unknown) RBC Morphology Not (units (unknown) date) Reportable unknown) (unknown) (no (unknown) (unknown) RDW (units (unkno wn) date) unknown) (unknown) (no (unknown) (unknown) RDW 23.2 H (units (unk nown) date) unknown) (unknown) (no (unknown) (unknown) RDW 24.5 H (units (unk nown) date) unknown) (unknown) (no (unknown) (unknown) Respiratory Rate 15 (unit s (unknown) date) 18 unknown) (unknown) (no (unknown) (unknown) Result Diagrams: (units (unknown) date) 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) (unknown) (no (unknown) (unknown) SARS-CoV-2 (PCR) (units (unknown) date) unknown) (unknown) (no (unknown) (unknown) SARS-CoV-2 (PCR) (units (unknown) date) unknown) (unknown) (no (unknown) (unknown) SARS-CoV-2 (PCR) (units (unknown) date) Negative unknown) (unknown) (no (unknown) (unknown) Signed By: (units (unk nown) date) unknown) (unknown) (no (unknown) (unknown) Sleep apnea (units (un known) date) unknown) (unknown) (no (unknown) (unknown) Smoking Status: (units (unknown) date) Former smoker unknown) (unknown) (no (unknown) (unknown) Social History (units (unknown) date) (Updated 09/25/18 @ unknown) 11:17 by Telma Dickey DO) (unknown) (no (unknown) (unknown) Sodium (units (unkno wn) date) unknown) (unknown) (no (unknown) (unknown) Sodium 132 L (units (u nknown) date) unknown) (unknown) (no (unknown) (unknown) Sodium 134 L (units (u nknown) date) unknown) (unknown) (no (unknown) (unknown) Subjective (units (unk nown) date) unknown) (unknown) (no (unknown) (unknown) Surgical History (units (unknown) date) (Reviewed 01/27/22 @ unknown) 07:53 by Tony Aceves MD) (unknown) (no (unknown) (unknown) Temperature 97.0 F L (uni ts (unknown) date) 97.4 F L unknown) (unknown) (no (unknown) (unknown) Time Patient Seen: (units (unknown) date) 10:45 unknown) (unknown) (no (unknown) (unknown) Time Spent With (units (unknown) date) Patient unknown) (unknown) (no (unknown) (unknown) Total Bilirubin (units (unknown) date) unknown) (unknown) (no (unknown) (unknown) Total Bilirubin 1.5 (unit s (unknown) date) H unknown) (unknown) (no (unknown) (unknown) Total Bilirubin 2.6 (unit s (unknown) date) H unknown) (unknown) (no (unknown) (unknown) Total Protein (units ( unknown) date) unknown) (unknown) (no (unknown) (unknown) Total Protein 6.4 (units (unknown) date) unknown) (unknown) (no (unknown) (unknown) Total Protein 7.1 (units (unknown) date) unknown) (unknown) (no (unknown) (unknown) Ur Culture (units (unk nown) date) Indicated? unknown) (unknown) (no (unknown) (unknown) Ur Culture (units (unk nown) date) Indicated? unknown) (unknown) (no (unknown) (unknown) Ur Culture (units (unk nown) date) Indicated? Specimen unknown) cultured (unknown) (no (unknown) (unknown) Urine Bacteria (units (unknown) date) unknown) (unknown) (no (unknown) (unknown) Urine Bacteria (units (unknown) date) unknown) (unknown) (no (unknown) (unknown) Urine Bacteria Few (units (unknown) date) (2-10) H unknown) (unknown) (no (unknown) (unknown) Urine RBC (units (unkn own) date) unknown) (unknown) (no (unknown) (unknown) Urine RBC (units (unkn own) date) unknown) (unknown) (no (unknown) (unknown) Urine RBC 0-1/hpf (units (unknown) date) unknown) (unknown) (no (unknown) (unknown) Urine WBC (units (unkn own) date) unknown) (unknown) (no (unknown) (unknown) Urine WBC (units (unkn own) date) unknown) (unknown) (no (unknown) (unknown) Urine WBC 30-100/hpf (uni ts (unknown) date) H unknown) (unknown) (no (unknown) (unknown) Urine Yeast (units (un known) date) unknown) (unknown) (no (unknown) (unknown) Urine Yeast (units (un known) date) unknown) (unknown) (no (unknown) (unknown) Urine Yeast (units (un known) date) 30-100/hpf H unknown) (unknown) (no (unknown) (unknown) VTE (units (unkno wn) date) unknown) (unknown) (no (unknown) (unknown) VTE Prophylaxis: (units (unknown) date) Wells risk score unknown) 1.5.? 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 Causing (unknown) (no (unknown) (unknown) contraindicated in (units (unknown) date) the setting of active unknown) bleeding [X] right sidedl SCD? Patient (unknown) (no (unknown) (unknown) details: x 9 (uni ts (unknown) date) months unknown) (unknown) (no (unknown) (unknown) ejection fraction. (units (unknown) date) As well for wound unknown) care and hematoma care. (unknown) (no (unknown) (unknown) evaluate. Consult (units (unknown) date) ordered. unknown) (unknown) (no (unknown) (unknown) from 6.7-7.9 and (units (unknown) date) 20.8-24.5 unknown) respectively. Today hemoglobin stable at 8.2. (unknown) (no (unknown) (unknown) hematoma left leg. (units (unknown) date) With skin compromise unknown) over the hematoma will have wound care (unknown) (no (unknown) (unknown) household members: (units (unknown) date) significant other unknown) (unknown) (no (unknown) (unknown) hydrochlorothiazide. (uni ts (unknown) date) Will increase daily unknown) furosemide to 40 mg daily. (unknown) (no (unknown) (unknown) is currently (units (u nknown) date) anticoagulated on unknown) rivaroxaban (unknown) (no (unknown) (unknown) marital status: (units (unknown) date) unknown) (unknown) (no (unknown) (unknown) nights. (units (unkno wn) date) unknown) (unknown) (no (unknown) (unknown) prophylactic. (units ( unknown) date) unknown) (unknown) (no (unknown) (unknown) risks of further (units (unknown) date) disease progression unknown) and this stay is expected to exceed 2 mid (unknown) (no (unknown) (unknown) today; this time is (unit s (unknown) date) exclusive of unknown) procedural time. Result panel 53 (unknown) (no (unknown) (unknown) (no value) (units (unk nown) date) unknown) (unknown) (no (unknown) (unknown) Date of Service: (units (unknown) date) 01/27/22 unknown) (unknown) (no (unknown) (unknown) (no value) (units (unk nown) date) unknown) (unknown) (no (unknown) (unknown) - (units (unkno wn) date) unknown) (unknown) (no (unknown) (unknown) 01/27/22 05:00 (units (unknown) date) unknown) (unknown) (no (unknown) (unknown) [facility] [address] (uni ts (unknown) date) [address] unknown) [place] [address] (unknown) (no (unknown) (unknown) Laboratory Results - (uni ts (unknown) date) last 24 hr unknown) (unknown) (no (unknown) (unknown) Progress Note (units ( unknown) date) unknown) (unknown) (no (unknown) (unknown) (no value) (units (unk nown) date) unknown) (unknown) (no (unknown) (unknown) 01:37 05:00 05:00 (units (unknown) date) unknown) (unknown) (no (unknown) (unknown) 05:00 05:00 (units (un known) date) unknown) (unknown) (no (unknown) (unknown) 01/26/22 01/26/22 (units (unknown) date) 01/26/22 unknown) (unknown) (no (unknown) (unknown) 01/27/22 01/27/22 (units (unknown) date) unknown) (unknown) (no (unknown) (unknown) 01/27/22 01/27/22 (units (unknown) date) 01/27/22 unknown) (unknown) (no (unknown) (unknown) 19:40 19:40 19:40 (units (unknown) date) unknown) (unknown) (no (unknown) (unknown) 20:21 20:47 22:00 (units (unknown) date) unknown) (unknown) (no (unknown) (unknown) 01/27/22 (units (unkno wn) date) unknown) (unknown) (no (unknown) (unknown) A1c is 6.5 (units (unk nown) date) unknown) (unknown) (no (unknown) (unknown) care is appreciated. (uni ts (unknown) date) unknown) (unknown) (no (unknown) (unknown) enzymes, Mag, PT/INR (uni ts (unknown) date) unknown) (unknown) (no (unknown) (unknown) (past 8 hours): (units (unknown) date) unknown) (unknown) (no (unknown) (unknown) 05:00 01/27/22 (units (unknown) date) unknown) (unknown) (no (unknown) (unknown) 08:20 01/27/22 (units (unknown) date) unknown) (unknown) (no (unknown) (unknown) 1. Acute blood loss (unit s (unknown) date) anemia likely unknown) secondary to over coagulation with what (unknown) (no (unknown) (unknown) 10:01 (units (unkno wn) date) unknown) (unknown) (no (unknown) (unknown) 2. Acute kidney (units (unknown) date) injury likely unknown) secondary to blood loss anemia, present on (unknown) (no (unknown) (unknown) 3. Acute (units (unkno wn) date) decompensated heart unknown) failure with reduced ejection fraction, present on (unknown) (no (unknown) (unknown) [id number] (units (unkno wn) date) unknown) (unknown) (no (unknown) (unknown) 4. Probable left (units (unknown) date) knee cellulitis, unknown) acute, present on admission (unknown) (no (unknown) (unknown) 5. Coronary artery (units (unknown) date) disease, chronic unknown) (unknown) (no (unknown) (unknown) 6. Diabetes type 2, (unit s (unknown) date) appears to be well unknown) controlled (unknown) (no (unknown) (unknown) ALT (units (unkno wn) date) unknown) (unknown) (no (unknown) (unknown) ALT 23 (units (unkno wn) date) unknown) (unknown) (no (unknown) (unknown) ALT 27 (units (unkno wn) date) unknown) (unknown) (no (unknown) (unknown) AST (units (unkno wn) date) unknown) (unknown) (no (unknown) (unknown) AST 28 (units (unkno wn) date) unknown) (unknown) (no (unknown) (unknown) AST 30 (units (unkno wn) date) unknown) (unknown) (no (unknown) (unknown) Age/Sex: 76 / M (units (unknown) date) unknown) (unknown) (no (unknown) (unknown) Albumin (units (unkno wn) date) unknown) (unknown) (no (unknown) (unknown) Albumin 3.0 L (units ( unknown) date) unknown) (unknown) (no (unknown) (unknown) Albumin 3.6 (units (un known) date) unknown) (unknown) (no (unknown) (unknown) Albumin/Globulin (units (unknown) date) Ratio unknown) (unknown) (no (unknown) (unknown) Albumin/Globulin (units (unknown) date) Ratio 0.9 L unknown) (unknown) (no (unknown) (unknown) Albumin/Globulin (units (unknown) date) Ratio 1.0 unknown) (unknown) (no (unknown) (unknown) Alkaline Phosphatase (uni ts (unknown) date) unknown) (unknown) (no (unknown) (unknown) Alkaline Phosphatase (uni ts (unknown) date) 144 H unknown) (unknown) (no (unknown) (unknown) Alkaline Phosphatase (uni ts (unknown) date) 170 H unknown) (unknown) (no (unknown) (unknown) Anisocytosis (units (u nknown) date) unknown) (unknown) (no (unknown) (unknown) Anisocytosis 2+ H (units (unknown) date) unknown) (unknown) (no (unknown) (unknown) Anisocytosis 3+ H (units (unknown) date) unknown) (unknown) (no (unknown) (unknown) Antibody Screen (units (unknown) date) unknown) (unknown) (no (unknown) (unknown) Antibody Screen (units (unknown) date) unknown) (unknown) (no (unknown) (unknown) Antibody Screen (units (unknown) date) Negative unknown) (unknown) (no (unknown) (unknown) Anticoagulated (units (unknown) date) unknown) (unknown) (no (unknown) (unknown) Assessment + Plan (units (unknown) date) unknown) (unknown) (no (unknown) (unknown) Assessment + Plan (units (unknown) date) narrative: unknown) (unknown) (no (unknown) (unknown) Atrial fibrillation (unit s (unknown) date) unknown) (unknown) (no (unknown) (unknown) BUN (units (unkno wn) date) unknown) (unknown) (no (unknown) (unknown) BUN 60 H (units (unkno wn) date) unknown) (unknown) (no (unknown) (unknown) BUN 61 H (units (unkno wn) date) unknown) (unknown) (no (unknown) (unknown) BUN/Creatinine Ratio (uni ts (unknown) date) unknown) (unknown) (no (unknown) (unknown) BUN/Creatinine Ratio (uni ts (unknown) date) 19.2 unknown) (unknown) (no (unknown) (unknown) BUN/Creatinine Ratio (uni ts (unknown) date) 22.5 H unknown) (unknown) (no (unknown) (unknown) Baso # (Auto) (units ( unknown) date) unknown) (unknown) (no (unknown) (unknown) Baso # (Auto) 0 (units (unknown) date) unknown) (unknown) (no (unknown) (unknown) Baso # (Auto) 100 (units (unknown) date) unknown) (unknown) (no (unknown) (unknown) Baso % (Auto) (units ( unknown) date) unknown) (unknown) (no (unknown) (unknown) Baso % (Auto) 0.7 (units (unknown) date) unknown) (unknown) (no (unknown) (unknown) Baso % (Auto) 1.0 (units (unknown) date) unknown) (unknown) (no (unknown) (unknown) Blood Pressure 96/34 (uni ts (unknown) date) L 103/48 L 103/48 L unknown) (unknown) (no (unknown) (unknown) Blood Type (units (unk nown) date) unknown) (unknown) (no (unknown) (unknown) Blood Type (units (unk nown) date) unknown) (unknown) (no (unknown) (unknown) Blood Type A (units (u nknown) date) Negative unknown) (unknown) (no (unknown) (unknown) Calcium (units (unkno wn) date) unknown) (unknown) (no (unknown) (unknown) Calcium 8.0 L (units ( unknown) date) unknown) (unknown) (no (unknown) (unknown) Calcium 8.4 (units (un known) date) unknown) (unknown) (no (unknown) (unknown) Carb controlled diet (uni ts (unknown) date) with a.c. HS glucose unknown) checks (unknown) (no (unknown) (unknown) Carbon Dioxide (units (unknown) date) unknown) (unknown) (no (unknown) (unknown) Carbon Dioxide 25 (units (unknown) date) unknown) (unknown) (no (unknown) (unknown) Carbon Dioxide 27 (units (unknown) date) unknown) (unknown) (no (unknown) (unknown) Chloride (units (unkno wn) date) unknown) (unknown) (no (unknown) (unknown) Chloride 100 (units (u nknown) date) unknown) (unknown) (no (unknown) (unknown) Chloride 97 L (units ( unknown) date) unknown) (unknown) (no (unknown) (unknown) Closely monitor (units (unknown) date) renal function and unknown) hold nephrotoxic medications (Lisinopril). (unknown) (no (unknown) (unknown) Code status: Full (units (unknown) date) code as discussed unknown) with the patient who identifies his son, (unknown) (no (unknown) (unknown) Consultants Dr. Aceves (uni ts (unknown) date) Orthopedic Surgery,? unknown) care and involvement in the patient?s (unknown) (no (unknown) (unknown) Continue carvedilol (unit s (unknown) date) 25 mg p.o. b.i.d., unknown) patient receives in 12.5 mg tablets (unknown) (no (unknown) (unknown) Continue home dose (units (unknown) date) of atorvastatin 40 mg unknown) p.o. at bedtime (unknown) (no (unknown) (unknown) Continue to (units (un known) date) follow-up. unknown) (unknown) (no (unknown) (unknown) Coronary artery (units (unknown) date) disease unknown) (unknown) (no (unknown) (unknown) Creatinine (units (unk nown) date) unknown) (unknown) (no (unknown) (unknown) Creatinine 2.67 H (units (unknown) date) unknown) (unknown) (no (unknown) (unknown) Creatinine 3.18 H (units (unknown) date) unknown) (unknown) (no (unknown) (unknown) Critical Care time: (unit s (unknown) date) unknown) (unknown) (no (unknown) (unknown) Crossmatch (units (unk nown) date) unknown) (unknown) (no (unknown) (unknown) Crossmatch (units (unk nown) date) unknown) (unknown) (no (unknown) (unknown) Crossmatch See (units (unknown) date) Detail unknown) (unknown) (no (unknown) (unknown) : 1945 (units (unknown) date) Acct:[id number] unknown) (unknown) (no (unknown) (unknown) Date Patient Seen: (units (unknown) date) 01/27/22 unknown) (unknown) (no (unknown) (unknown) Deep Vein (units (unkn own) date) Thrombosis/Pulmonary unknown) Embolism Present on Admission: No (unknown) (no (unknown) (unknown) Diabetes (units (unkno wn) date) unknown) (unknown) (no (unknown) (unknown) Dispo: Unknown at (units (unknown) date) this time unknown) (unknown) (no (unknown) (unknown) David his surrogate (units (unknown) date) and POA. unknown) (unknown) (no (unknown) (unknown) Dyslipidemia (units (u nknown) date) unknown) (unknown) (no (unknown) (unknown) Eos # (Auto) (units (u nknown) date) unknown) (unknown) (no (unknown) (unknown) Eos # (Auto) 200 (units (unknown) date) unknown) (unknown) (no (unknown) (unknown) Eos # (Auto) 200 (units (unknown) date) unknown) (unknown) (no (unknown) (unknown) Eos % (Auto) (units (u nknown) date) unknown) (unknown) (no (unknown) (unknown) Eos % (Auto) 2.8 (units (unknown) date) unknown) (unknown) (no (unknown) (unknown) Eos % (Auto) 2.8 (units (unknown) date) unknown) (unknown) (no (unknown) (unknown) Estimated GFR (units ( unknown) date) unknown) (unknown) (no (unknown) (unknown) Estimated GFR 19 L (units (unknown) date) unknown) (unknown) (no (unknown) (unknown) Estimated GFR 24 L (units (unknown) date) unknown) (unknown) (no (unknown) (unknown) Exam (units (unkno wn) date) unknown) (unknown) (no (unknown) (unknown) FEN: IV fluids: (units (unknown) date) saline lock, diet: unknown) carb controlled diet, labs: CBC, C/BMP, liver (unknown) (no (unknown) (unknown) Family History (units (unknown) date) (Reviewed 01/27/22 @ unknown) 07:53 by Tony Aceves MD) (unknown) (no (unknown) (unknown) GFR improved to 24 (units (unknown) date) today. Continue to unknown) follow (unknown) (no (unknown) (unknown) Globulin (units (unkno wn) date) unknown) (unknown) (no (unknown) (unknown) Globulin 3.4 (units (u nknown) date) unknown) (unknown) (no (unknown) (unknown) Globulin 3.5 (units (u nknown) date) unknown) (unknown) (no (unknown) (unknown) Glucose (units (unkno wn) date) unknown) (unknown) (no (unknown) (unknown) Glucose 130 H (units ( unknown) date) unknown) (unknown) (no (unknown) (unknown) Glucose 133 H (units ( unknown) date) unknown) (unknown) (no (unknown) (unknown) sOmel Baxter was (units (unknown) date) admitted for further unknown) management of acute blood loss anemia, (unknown) (no (unknown) (unknown) Hct (units (unkno wn) date) unknown) (unknown) (no (unknown) (unknown) Hct 20.8 L* (units (un known) date) unknown) (unknown) (no (unknown) (unknown) Hct 24.5 L (units (unk nown) date) unknown) (unknown) (no (unknown) (unknown) Hct 24.9 L (units (unk nown) date) unknown) (unknown) (no (unknown) (unknown) He indicates his (units (unknown) date) pain is adequately unknown) controlled. No new complaints. (unknown) (no (unknown) (unknown) He is currently (units (unknown) date) saline lock due to unknown) volume overload (unknown) (no (unknown) (unknown) He will receive his (unit s (unknown) date) home dose of Lantus unknown) 30 units b.i.d. Metformin remains on (unknown) (no (unknown) (unknown) Hemoglobin A1c (units (unknown) date) unknown) (unknown) (no (unknown) (unknown) Hemoglobin A1c (units (unknown) date) unknown) (unknown) (no (unknown) (unknown) Hemoglobin A1c 6.5 H (uni ts (unknown) date) unknown) (unknown) (no (unknown) (unknown) Hgb (units (unkno wn) date) unknown) (unknown) (no (unknown) (unknown) Hgb 6.7 L* (units (unk nown) date) unknown) (unknown) (no (unknown) (unknown) Hgb 7.9 L (units (unkn own) date) unknown) (unknown) (no (unknown) (unknown) Hgb 8.2 L (units (unkn own) date) unknown) (unknown) (no (unknown) (unknown) Hx of (units (unkno wn) date) cholecystectomy unknown) (unknown) (no (unknown) (unknown) Hypertension (units (u nknown) date) unknown) (unknown) (no (unknown) (unknown) I spent a total of (units (unknown) date) [] minutes of unknown) critical care time on this patient's care (unknown) (no (unknown) (unknown) INR (units (unkno wn) date) unknown) (unknown) (no (unknown) (unknown) INR (units (unkno wn) date) unknown) (unknown) (no (unknown) (unknown) INR 1.2 (units (unkno wn) date) unknown) (unknown) (no (unknown) (unknown) In the ER, he (units ( unknown) date) received IV Lasix 80 unknown) mg in addition to his home oral dose of (unknown) (no (unknown) (unknown) Interval history: (units (unknown) date) unknown) (unknown) (no (unknown) (unknown) Labs (units (unkno wn) date) unknown) (unknown) (no (unknown) (unknown) Labs: (units (unkno wn) date) unknown) (unknown) (no (unknown) (unknown) Lactate (units (unkno wn) date) unknown) (unknown) (no (unknown) (unknown) Lactate (units (unkno wn) date) unknown) (unknown) (no (unknown) (unknown) Lactate 1.3 (units (un known) date) unknown) (unknown) (no (unknown) (unknown) Lipase (units (unkno wn) date) unknown) (unknown) (no (unknown) (unknown) Lipase (units (unkno wn) date) unknown) (unknown) (no (unknown) (unknown) Lipase 135 (units (unk nown) date) unknown) (unknown) (no (unknown) (unknown) Low-dose (units (unkno wn) date) correctional scale unknown) insulin and adjust as needed (unknown) (no (unknown) (unknown) Lymph # (Auto) (units (unknown) date) unknown) (unknown) (no (unknown) (unknown) Lymph # (Auto) 600 L (uni ts (unknown) date) unknown) (unknown) (no (unknown) (unknown) Lymph # (Auto) 800 L (uni ts (unknown) date) unknown) (unknown) (no (unknown) (unknown) Lymph % (Auto) (units (unknown) date) unknown) (unknown) (no (unknown) (unknown) Lymph % (Auto) 11.4 (unit s (unknown) date) L unknown) (unknown) (no (unknown) (unknown) Lymph % (Auto) 9.9 L (uni ts (unknown) date) unknown) (unknown) (no (unknown) (unknown) MCH (units (unkno wn) date) unknown) (unknown) (no (unknown) (unknown) MCH 24.6 L (units (unk nown) date) unknown) (unknown) (no (unknown) (unknown) MCH 25.9 L (units (unk nown) date) unknown) (unknown) (no (unknown) (unknown) MCHC (units (unkno wn) date) unknown) (unknown) (no (unknown) (unknown) MCHC 32.4 (units (unkn own) date) unknown) (unknown) (no (unknown) (unknown) MCHC 32.9 (units (unkn own) date) unknown) (unknown) (no (unknown) (unknown) MCV (units (unkno wn) date) unknown) (unknown) (no (unknown) (unknown) MCV 75.7 L (units (unk nown) date) unknown) (unknown) (no (unknown) (unknown) MCV 78.6 L (units (unk nown) date) unknown) (unknown) (no (unknown) (unknown) Magnesium (units (unkn own) date) unknown) (unknown) (no (unknown) (unknown) Magnesium (units (unkn own) date) unknown) (unknown) (no (unknown) (unknown) Magnesium 1.5 L (units (unknown) date) unknown) (unknown) (no (unknown) (unknown) Magnesium 1.7 (units ( unknown) date) unknown) (unknown) (no (unknown) (unknown) Medical History (units (unknown) date) (Reviewed 01/27/22 @ unknown) 07:53 by Tony Aceves MD) (unknown) (no (unknown) (unknown) Lajas # (Auto) (units ( unknown) date) unknown) (unknown) (no (unknown) (unknown) Lajas # (Auto) 500 (units (unknown) date) unknown) (unknown) (no (unknown) (unknown) Lajas # (Auto) 700 (units (unknown) date) unknown) (unknown) (no (unknown) (unknown) Lajas % (Auto) (units ( unknown) date) unknown) (unknown) (no (unknown) (unknown) Lajas % (Auto) 8.4 (units (unknown) date) unknown) (unknown) (no (unknown) (unknown) Lajas % (Auto) 9.8 (units (unknown) date) unknown) (unknown) (no (unknown) (unknown) NT-Pro-B Natriuret (units (unknown) date) Pep unknown) (unknown) (no (unknown) (unknown) NT-Pro-B Natriuret (units (unknown) date) Pep unknown) (unknown) (no (unknown) (unknown) NT-Pro-B Natriuret (units (unknown) date) Pep 7170 H unknown) (unknown) (no (unknown) (unknown) Neut # (Auto) (units ( unknown) date) unknown) (unknown) (no (unknown) (unknown) Neut # (Auto) 4600 (units (unknown) date) unknown) (unknown) (no (unknown) (unknown) Neut # (Auto) 5400 (units (unknown) date) unknown) (unknown) (no (unknown) (unknown) Neut % (Auto) (units ( unknown) date) unknown) (unknown) (no (unknown) (unknown) Neut % (Auto) 75.0 (units (unknown) date) unknown) (unknown) (no (unknown) (unknown) Neut % (Auto) 78.2 H (uni ts (unknown) date) unknown) (unknown) (no (unknown) (unknown) Objective (units (unkn own) date) unknown) (unknown) (no (unknown) (unknown) Orthopedic surgery (units (unknown) date) has been consulted unknown) and seen the patient. (unknown) (no (unknown) (unknown) Other Adopted (units ( unknown) date) unknown) (unknown) (no (unknown) (unknown) Oxygen Delivery (units (unknown) date) Method Room Air unknown) (unknown) (no (unknown) (unknown) Oxygen Flow Rate 0 (units (unknown) date) unknown) (unknown) (no (unknown) (unknown) Oxygen Flow Rate 0 0 (uni ts (unknown) date) unknown) (unknown) (no (unknown) (unknown) PFSH (units (unkno wn) date) unknown) (unknown) (no (unknown) (unknown) PT (units (unkno wn) date) unknown) (unknown) (no (unknown) (unknown) PT (units (unkno wn) date) unknown) (unknown) (no (unknown) (unknown) PT 14.1 H (units (unkn own) date) unknown) (unknown) (no (unknown) (unknown) Patient currently (units (unknown) date) being treated with unknown) vancomycin. This is essentially (unknown) (no (unknown) (unknown) Patient is admitted (unit s (unknown) date) to the inpatient unknown) service due to the severity of disease, (unknown) (no (unknown) (unknown) Patient is currently (uni ts (unknown) date) recovering from unknown) biventricular heart catheterization (unknown) (no (unknown) (unknown) Patient received 2 (units (unknown) date) units PRBC in the unknown) emergency department increasing his H+H (unknown) (no (unknown) (unknown) Patient was fluid (units (unknown) date) resuscitated in the unknown) emergency department 2 L (unknown) (no (unknown) (unknown) Patient's proBNP is (unit s (unknown) date) almost 7200 unknown) (unknown) (no (unknown) (unknown) Patient's (units (unkn own) date) rivaroxaban, aspirin unknown) and clopidogrel are being held (unknown) (no (unknown) (unknown) Patient: (units (unkno wn) date) Osmel Baxter MR#: unknown) M000 (unknown) (no (unknown) (unknown) Plt Count (units (unkn own) date) unknown) (unknown) (no (unknown) (unknown) Plt Count 164 (units ( unknown) date) unknown) (unknown) (no (unknown) (unknown) Plt Count 206 (units ( unknown) date) unknown) (unknown) (no (unknown) (unknown) Poikilocytosis (units (unknown) date) unknown) (unknown) (no (unknown) (unknown) Poikilocytosis 1+ H (unit s (unknown) date) unknown) (unknown) (no (unknown) (unknown) Potassium (units (unkn own) date) unknown) (unknown) (no (unknown) (unknown) Potassium 4.1 (units ( unknown) date) unknown) (unknown) (no (unknown) (unknown) Potassium 4.3 (units ( unknown) date) unknown) (unknown) (no (unknown) (unknown) Procalcitonin (units ( unknown) date) unknown) (unknown) (no (unknown) (unknown) Procalcitonin (units ( unknown) date) unknown) (unknown) (no (unknown) (unknown) Procalcitonin 0.50 (units (unknown) date) unknown) (unknown) (no (unknown) (unknown) Provider: (units (unkn own) date) Chary Ramirez MD unknown) (unknown) (no (unknown) (unknown) Pulse Oximetry 99 98 (uni ts (unknown) date) unknown) (unknown) (no (unknown) (unknown) Pulse Rate 61 63 63 (unit s (unknown) date) unknown) (unknown) (no (unknown) (unknown) Quality (units (unkno wn) date) unknown) (unknown) (no (unknown) (unknown) RBC (units (unkno wn) date) unknown) (unknown) (no (unknown) (unknown) RBC 2.75 L (units (unk nown) date) unknown) (unknown) (no (unknown) (unknown) RBC 3.16 L (units (unk nown) date) unknown) (unknown) (no (unknown) (unknown) RBC Morphology (units (unknown) date) unknown) (unknown) (no (unknown) (unknown) RBC Morphology Not (units (unknown) date) Reportable unknown) (unknown) (no (unknown) (unknown) RBC Morphology Not (units (unknown) date) Reportable unknown) (unknown) (no (unknown) (unknown) RDW (units (unkno wn) date) unknown) (unknown) (no (unknown) (unknown) RDW 23.2 H (units (unk nown) date) unknown) (unknown) (no (unknown) (unknown) RDW 24.5 H (units (unk nown) date) unknown) (unknown) (no (unknown) (unknown) Respiratory Rate 15 (unit s (unknown) date) 18 unknown) (unknown) (no (unknown) (unknown) Result Diagrams: (units (unknown) date) 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) (unknown) (no (unknown) (unknown) SARS-CoV-2 (PCR) (units (unknown) date) unknown) (unknown) (no (unknown) (unknown) SARS-CoV-2 (PCR) (units (unknown) date) unknown) (unknown) (no (unknown) (unknown) SARS-CoV-2 (PCR) (units (unknown) date) Negative unknown) (unknown) (no (unknown) (unknown) Signed By: (units (unk nown) date) unknown) (unknown) (no (unknown) (unknown) Sleep apnea (units (un known) date) unknown) (unknown) (no (unknown) (unknown) Smoking Status: (units (unknown) date) Former smoker unknown) (unknown) (no (unknown) (unknown) Social History (units (unknown) date) (Updated 09/25/18 @ unknown) 11:17 by Telma Dickey DO) (unknown) (no (unknown) (unknown) Sodium (units (unkno wn) date) unknown) (unknown) (no (unknown) (unknown) Sodium 132 L (units (u nknown) date) unknown) (unknown) (no (unknown) (unknown) Sodium 134 L (units (u nknown) date) unknown) (unknown) (no (unknown) (unknown) Subjective (units (unk nown) date) unknown) (unknown) (no (unknown) (unknown) Surgical History (units (unknown) date) (Reviewed 01/27/22 @ unknown) 07:53 by Tony Aceves MD) (unknown) (no (unknown) (unknown) Temperature 97.0 F L (uni ts (unknown) date) 97.4 F L unknown) (unknown) (no (unknown) (unknown) Time Patient Seen: (units (unknown) date) 10:45 unknown) (unknown) (no (unknown) (unknown) Time Spent With (units (unknown) date) Patient unknown) (unknown) (no (unknown) (unknown) Total Bilirubin (units (unknown) date) unknown) (unknown) (no (unknown) (unknown) Total Bilirubin 1.5 (unit s (unknown) date) H unknown) (unknown) (no (unknown) (unknown) Total Bilirubin 2.6 (unit s (unknown) date) H unknown) (unknown) (no (unknown) (unknown) Total Protein (units ( unknown) date) unknown) (unknown) (no (unknown) (unknown) Total Protein 6.4 (units (unknown) date) unknown) (unknown) (no (unknown) (unknown) Total Protein 7.1 (units (unknown) date) unknown) (unknown) (no (unknown) (unknown) Ur Culture (units (unk nown) date) Indicated? unknown) (unknown) (no (unknown) (unknown) Ur Culture (units (unk nown) date) Indicated? unknown) (unknown) (no (unknown) (unknown) Ur Culture (units (unk nown) date) Indicated? Specimen unknown) cultured (unknown) (no (unknown) (unknown) Urine Bacteria (units (unknown) date) unknown) (unknown) (no (unknown) (unknown) Urine Bacteria (units (unknown) date) unknown) (unknown) (no (unknown) (unknown) Urine Bacteria Few (units (unknown) date) (2-10) H unknown) (unknown) (no (unknown) (unknown) Urine RBC (units (unkn own) date) unknown) (unknown) (no (unknown) (unknown) Urine RBC (units (unkn own) date) unknown) (unknown) (no (unknown) (unknown) Urine RBC 0-1/hpf (units (unknown) date) unknown) (unknown) (no (unknown) (unknown) Urine WBC (units (unkn own) date) unknown) (unknown) (no (unknown) (unknown) Urine WBC (units (unkn own) date) unknown) (unknown) (no (unknown) (unknown) Urine WBC 30-100/hpf (uni ts (unknown) date) H unknown) (unknown) (no (unknown) (unknown) Urine Yeast (units (un known) date) unknown) (unknown) (no (unknown) (unknown) Urine Yeast (units (un known) date) unknown) (unknown) (no (unknown) (unknown) Urine Yeast (units (un known) date) 30-100/hpf H unknown) (unknown) (no (unknown) (unknown) VTE (units (unkno wn) date) unknown) (unknown) (no (unknown) (unknown) VTE Prophylaxis: (units (unknown) date) Wells risk score unknown) 1.5.? 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 Causing (unknown) (no (unknown) (unknown) contraindicated in (units (unknown) date) the setting of active unknown) bleeding [X] right sidedl SCD? Patient (unknown) (no (unknown) (unknown) daily. (units (unkno wn) date) Hydrochlorothiazide unknown) is not been ordered. Will add torsemide. (unknown) (no (unknown) (unknown) details: x 9 (uni ts (unknown) date) months unknown) (unknown) (no (unknown) (unknown) ejection fraction. (units (unknown) date) As well for wound unknown) care and hematoma care. (unknown) (no (unknown) (unknown) evaluate. Consult (units (unknown) date) ordered. unknown) (unknown) (no (unknown) (unknown) from 6.7-7.9 and (units (unknown) date) 20.8-24.5 unknown) respectively. Today hemoglobin stable at 8.2. (unknown) (no (unknown) (unknown) hematoma left leg. (units (unknown) date) With skin compromise unknown) over the hematoma will have wound care (unknown) (no (unknown) (unknown) hold due to renal (units (unknown) date) function. unknown) (unknown) (no (unknown) (unknown) household members: (units (unknown) date) significant other unknown) (unknown) (no (unknown) (unknown) hydrochlorothiazide (unit s (unknown) date) and torsemide. Will unknown) increase daily furosemide to 40 mg (unknown) (no (unknown) (unknown) is currently (units (u nknown) date) anticoagulated on unknown) rivaroxaban (unknown) (no (unknown) (unknown) marital status: (units (unknown) date) unknown) (unknown) (no (unknown) (unknown) midnights. (units (unk nown) date) unknown) (unknown) (no (unknown) (unknown) prophylactic. (units ( unknown) date) unknown) (unknown) (no (unknown) (unknown) risks of further (units (unknown) date) disease progression unknown) and this stay is expected to exceed 2 (unknown) (no (unknown) (unknown) today; this time is (unit s (unknown) date) exclusive of unknown) procedural time. Result panel 54 (unknown) (no (unknown) (unknown) (no value) (units (unk nown) date) unknown) (unknown) (no (unknown) (unknown) Date of Service: (units (unknown) date) 01/27/22 unknown) (unknown) (no (unknown) (unknown) (no value) (units (unk nown) date) unknown) (unknown) (no (unknown) (unknown) - (units (unkno wn) date) unknown) (unknown) (no (unknown) (unknown) 01/27/22 05:00 (units (unknown) date) unknown) (unknown) (no (unknown) (unknown) [facility] [id number] (uni ts (unknown) date) [address] unknown) [place] [address] (unknown) (no (unknown) (unknown) Laboratory Results - (uni ts (unknown) date) last 24 hr unknown) (unknown) (no (unknown) (unknown) Progress Note (units ( unknown) date) unknown) (unknown) (no (unknown) (unknown) (no value) (units (unk nown) date) unknown) (unknown) (no (unknown) (unknown) 01:37 05:00 05:00 (units (unknown) date) unknown) (unknown) (no (unknown) (unknown) 05:00 05:00 (units (un known) date) unknown) (unknown) (no (unknown) (unknown) 01/26/22 01/26/22 (units (unknown) date) 01/26/22 unknown) (unknown) (no (unknown) (unknown) 01/27/22 01/27/22 (units (unknown) date) unknown) (unknown) (no (unknown) (unknown) 01/27/22 01/27/22 (units (unknown) date) 01/27/22 unknown) (unknown) (no (unknown) (unknown) 19:40 19:40 19:40 (units (unknown) date) unknown) (unknown) (no (unknown) (unknown) 20:21 20:47 22:00 (units (unknown) date) unknown) (unknown) (no (unknown) (unknown) 01/27/22 (units (unkno wn) date) unknown) (unknown) (no (unknown) (unknown) A1c is 6.5 (units (unk nown) date) unknown) (unknown) (no (unknown) (unknown) care is appreciated. (uni ts (unknown) date) This has been unknown) completed. (unknown) (no (unknown) (unknown) enzymes, Mag, PT/INR (uni ts (unknown) date) unknown) (unknown) (no (unknown) (unknown) (past 8 hours): (units (unknown) date) unknown) (unknown) (no (unknown) (unknown) 05:00 01/27/22 (units (unknown) date) unknown) (unknown) (no (unknown) (unknown) 08:20 01/27/22 (units (unknown) date) unknown) (unknown) (no (unknown) (unknown) 1. Acute blood loss (unit s (unknown) date) anemia likely unknown) secondary to over coagulation with what (unknown) (no (unknown) (unknown) 10:01 (units (unkno wn) date) unknown) (unknown) (no (unknown) (unknown) 2. Acute kidney (units (unknown) date) injury likely unknown) secondary to blood loss anemia, present on (unknown) (no (unknown) (unknown) 3. Acute (units (unkno wn) date) decompensated heart unknown) failure with reduced ejection fraction, present on (unknown) (no (unknown) (unknown) [id number] (units (unkno wn) date) unknown) (unknown) (no (unknown) (unknown) 4. Probable left (units (unknown) date) knee cellulitis, unknown) acute, present on admission (unknown) (no (unknown) (unknown) 5. Coronary artery (units (unknown) date) disease, chronic unknown) (unknown) (no (unknown) (unknown) 6. Diabetes type 2, (unit s (unknown) date) appears to be well unknown) controlled (unknown) (no (unknown) (unknown) ALT (units (unkno wn) date) unknown) (unknown) (no (unknown) (unknown) ALT 23 (units (unkno wn) date) unknown) (unknown) (no (unknown) (unknown) ALT 27 (units (unkno wn) date) unknown) (unknown) (no (unknown) (unknown) AST (units (unkno wn) date) unknown) (unknown) (no (unknown) (unknown) AST 28 (units (unkno wn) date) unknown) (unknown) (no (unknown) (unknown) AST 30 (units (unkno wn) date) unknown) (unknown) (no (unknown) (unknown) Age/Sex: 76 / M (units (unknown) date) unknown) (unknown) (no (unknown) (unknown) Albumin (units (unkno wn) date) unknown) (unknown) (no (unknown) (unknown) Albumin 3.0 L (units ( unknown) date) unknown) (unknown) (no (unknown) (unknown) Albumin 3.6 (units (un known) date) unknown) (unknown) (no (unknown) (unknown) Albumin/Globulin (units (unknown) date) Ratio unknown) (unknown) (no (unknown) (unknown) Albumin/Globulin (units (unknown) date) Ratio 0.9 L unknown) (unknown) (no (unknown) (unknown) Albumin/Globulin (units (unknown) date) Ratio 1.0 unknown) (unknown) (no (unknown) (unknown) Alkaline Phosphatase (uni ts (unknown) date) unknown) (unknown) (no (unknown) (unknown) Alkaline Phosphatase (uni ts (unknown) date) 144 H unknown) (unknown) (no (unknown) (unknown) Alkaline Phosphatase (uni ts (unknown) date) 170 H unknown) (unknown) (no (unknown) (unknown) Anisocytosis (units (u nknown) date) unknown) (unknown) (no (unknown) (unknown) Anisocytosis 2+ H (units (unknown) date) unknown) (unknown) (no (unknown) (unknown) Anisocytosis 3+ H (units (unknown) date) unknown) (unknown) (no (unknown) (unknown) Antibody Screen (units (unknown) date) unknown) (unknown) (no (unknown) (unknown) Antibody Screen (units (unknown) date) unknown) (unknown) (no (unknown) (unknown) Antibody Screen (units (unknown) date) Negative unknown) (unknown) (no (unknown) (unknown) Anticoagulated (units (unknown) date) unknown) (unknown) (no (unknown) (unknown) Assessment + Plan (units (unknown) date) unknown) (unknown) (no (unknown) (unknown) Assessment + Plan (units (unknown) date) narrative: unknown) (unknown) (no (unknown) (unknown) Atrial fibrillation (unit s (unknown) date) unknown) (unknown) (no (unknown) (unknown) BUN (units (unkno wn) date) unknown) (unknown) (no (unknown) (unknown) BUN 60 H (units (unkno wn) date) unknown) (unknown) (no (unknown) (unknown) BUN 61 H (units (unkno wn) date) unknown) (unknown) (no (unknown) (unknown) BUN/Creatinine Ratio (uni ts (unknown) date) unknown) (unknown) (no (unknown) (unknown) BUN/Creatinine Ratio (uni ts (unknown) date) 19.2 unknown) (unknown) (no (unknown) (unknown) BUN/Creatinine Ratio (uni ts (unknown) date) 22.5 H unknown) (unknown) (no (unknown) (unknown) Baso # (Auto) (units ( unknown) date) unknown) (unknown) (no (unknown) (unknown) Baso # (Auto) 0 (units (unknown) date) unknown) (unknown) (no (unknown) (unknown) Baso # (Auto) 100 (units (unknown) date) unknown) (unknown) (no (unknown) (unknown) Baso % (Auto) (units ( unknown) date) unknown) (unknown) (no (unknown) (unknown) Baso % (Auto) 0.7 (units (unknown) date) unknown) (unknown) (no (unknown) (unknown) Baso % (Auto) 1.0 (units (unknown) date) unknown) (unknown) (no (unknown) (unknown) Blood Pressure 96/34 (uni ts (unknown) date) L 103/48 L 103/48 L unknown) (unknown) (no (unknown) (unknown) Blood Type (units (unk nown) date) unknown) (unknown) (no (unknown) (unknown) Blood Type (units (unk nown) date) unknown) (unknown) (no (unknown) (unknown) Blood Type A (units (u nknown) date) Negative unknown) (unknown) (no (unknown) (unknown) Calcium (units (unkno wn) date) unknown) (unknown) (no (unknown) (unknown) Calcium 8.0 L (units ( unknown) date) unknown) (unknown) (no (unknown) (unknown) Calcium 8.4 (units (un known) date) unknown) (unknown) (no (unknown) (unknown) Carb controlled diet (uni ts (unknown) date) with a.c. HS glucose unknown) checks (unknown) (no (unknown) (unknown) Carbon Dioxide (units (unknown) date) unknown) (unknown) (no (unknown) (unknown) Carbon Dioxide 25 (units (unknown) date) unknown) (unknown) (no (unknown) (unknown) Carbon Dioxide 27 (units (unknown) date) unknown) (unknown) (no (unknown) (unknown) Cardiovascular: (units (unknown) date) Heart sounds S1 and unknown) S2 with no extra sounds or murmurs. Some (unknown) (no (unknown) (unknown) Chloride (units (unkno wn) date) unknown) (unknown) (no (unknown) (unknown) Chloride 100 (units (u nknown) date) unknown) (unknown) (no (unknown) (unknown) Chloride 97 L (units ( unknown) date) unknown) (unknown) (no (unknown) (unknown) Closely monitor (units (unknown) date) renal function and unknown) hold nephrotoxic medications (Lisinopril). (unknown) (no (unknown) (unknown) Code status: Full (units (unknown) date) code as discussed unknown) with the patient who identifies his son, (unknown) (no (unknown) (unknown) Consultants Dr. Aceves (uni ts (unknown) date) Orthopedic Surgery,? unknown) care and involvement in the patient?s (unknown) (no (unknown) (unknown) Continue carvedilol (unit s (unknown) date) 25 mg p.o. b.i.d., unknown) patient receives in 12.5 mg tablets (unknown) (no (unknown) (unknown) Continue home dose (units (unknown) date) of atorvastatin 40 mg unknown) p.o. at bedtime (unknown) (no (unknown) (unknown) Continue to (units (un known) date) follow-up. unknown) (unknown) (no (unknown) (unknown) Coronary artery (units (unknown) date) disease unknown) (unknown) (no (unknown) (unknown) Creatinine (units (unk nown) date) unknown) (unknown) (no (unknown) (unknown) Creatinine 2.67 H (units (unknown) date) unknown) (unknown) (no (unknown) (unknown) Creatinine 3.18 H (units (unknown) date) unknown) (unknown) (no (unknown) (unknown) Critical Care time: (unit s (unknown) date) unknown) (unknown) (no (unknown) (unknown) Crossmatch (units (unk nown) date) unknown) (unknown) (no (unknown) (unknown) Crossmatch (units (unk nown) date) unknown) (unknown) (no (unknown) (unknown) Crossmatch See (units (unknown) date) Detail unknown) (unknown) (no (unknown) (unknown) : 1945 (units (unknown) date) Acct:[id number] unknown) (unknown) (no (unknown) (unknown) Date Patient Seen: (units (unknown) date) 01/27/22 unknown) (unknown) (no (unknown) (unknown) Deep Vein (units (unkn own) date) Thrombosis/Pulmonary unknown) Embolism Present on Admission: No (unknown) (no (unknown) (unknown) Diabetes (units (unkno wn) date) unknown) (unknown) (no (unknown) (unknown) Dispo: Unknown at (units (unknown) date) this time unknown) (unknown) (no (unknown) (unknown) David his surrogate (units (unknown) date) and POA. unknown) (unknown) (no (unknown) (unknown) Dyslipidemia (units (u nknown) date) unknown) (unknown) (no (unknown) (unknown) Eos # (Auto) (units (u nknown) date) unknown) (unknown) (no (unknown) (unknown) Eos # (Auto) 200 (units (unknown) date) unknown) (unknown) (no (unknown) (unknown) Eos # (Auto) 200 (units (unknown) date) unknown) (unknown) (no (unknown) (unknown) Eos % (Auto) (units (u nknown) date) unknown) (unknown) (no (unknown) (unknown) Eos % (Auto) 2.8 (units (unknown) date) unknown) (unknown) (no (unknown) (unknown) Eos % (Auto) 2.8 (units (unknown) date) unknown) (unknown) (no (unknown) (unknown) Estimated GFR (units ( unknown) date) unknown) (unknown) (no (unknown) (unknown) Estimated GFR 19 L (units (unknown) date) unknown) (unknown) (no (unknown) (unknown) Estimated GFR 24 L (units (unknown) date) unknown) (unknown) (no (unknown) (unknown) Exam (units (unkno wn) date) unknown) (unknown) (no (unknown) (unknown) Exam Narrative: (units (unknown) date) unknown) (unknown) (no (unknown) (unknown) FEN: IV fluids: (units (unknown) date) saline lock, diet: unknown) carb controlled diet, labs: CBC, C/BMP, liver (unknown) (no (unknown) (unknown) Family History (units (unknown) date) (Reviewed 01/27/22 @ unknown) 07:53 by Tony Aceves MD) (unknown) (no (unknown) (unknown) GFR improved to 24 (units (unknown) date) today. Continue to unknown) follow (unknown) (no (unknown) (unknown) Globulin (units (unkno wn) date) unknown) (unknown) (no (unknown) (unknown) Globulin 3.4 (units (u nknown) date) unknown) (unknown) (no (unknown) (unknown) Globulin 3.5 (units (u nknown) date) unknown) (unknown) (no (unknown) (unknown) Glucose (units (unkno wn) date) unknown) (unknown) (no (unknown) (unknown) Glucose 130 H (units ( unknown) date) unknown) (unknown) (no (unknown) (unknown) Glucose 133 H (units ( unknown) date) unknown) (unknown) (no (unknown) (unknown) HEENT: Was equal (units (unknown) date) reactive to light. unknown) Extraocular movements normal. Neck is (unknown) (no (unknown) (unknown) Osmel Baxter was (units (unknown) date) admitted for further unknown) management of acute blood loss anemia, (unknown) (no (unknown) (unknown) Hct (units (unkno wn) date) unknown) (unknown) (no (unknown) (unknown) Hct 20.8 L* (units (un known) date) unknown) (unknown) (no (unknown) (unknown) Hct 24.5 L (units (unk nown) date) unknown) (unknown) (no (unknown) (unknown) Hct 24.9 L (units (unk nown) date) unknown) (unknown) (no (unknown) (unknown) He indicates his (units (unknown) date) pain is adequately unknown) controlled. No new complaints. (unknown) (no (unknown) (unknown) He is currently (units (unknown) date) saline lock due to unknown) volume overload (unknown) (no (unknown) (unknown) He will receive his (unit s (unknown) date) home dose of Lantus unknown) 30 units b.i.d. Metformin remains on (unknown) (no (unknown) (unknown) Hemoglobin A1c (units (unknown) date) unknown) (unknown) (no (unknown) (unknown) Hemoglobin A1c (units (unknown) date) unknown) (unknown) (no (unknown) (unknown) Hemoglobin A1c 6.5 H (uni ts (unknown) date) unknown) (unknown) (no (unknown) (unknown) Hgb (units (unkno wn) date) unknown) (unknown) (no (unknown) (unknown) Hgb 6.7 L* (units (unk nown) date) unknown) (unknown) (no (unknown) (unknown) Hgb 7.9 L (units (unkn own) date) unknown) (unknown) (no (unknown) (unknown) Hgb 8.2 L (units (unkn own) date) unknown) (unknown) (no (unknown) (unknown) Hx of (units (unkno wn) date) cholecystectomy unknown) (unknown) (no (unknown) (unknown) Hypertension (units (u nknown) date) unknown) (unknown) (no (unknown) (unknown) I spent a total of (units (unknown) date) [] minutes of unknown) critical care time on this patient's care (unknown) (no (unknown) (unknown) INR (units (unkno wn) date) unknown) (unknown) (no (unknown) (unknown) INR (units (unkno wn) date) unknown) (unknown) (no (unknown) (unknown) INR 1.2 (units (unkno wn) date) unknown) (unknown) (no (unknown) (unknown) In the ER, he (units ( unknown) date) received IV Lasix 80 unknown) mg in addition to his home oral dose of (unknown) (no (unknown) (unknown) Interval history: (units (unknown) date) unknown) (unknown) (no (unknown) (unknown) Labs (units (unkno wn) date) unknown) (unknown) (no (unknown) (unknown) Labs: (units (unkno wn) date) unknown) (unknown) (no (unknown) (unknown) Lactate (units (unkno wn) date) unknown) (unknown) (no (unknown) (unknown) Lactate (units (unkno wn) date) unknown) (unknown) (no (unknown) (unknown) Lactate 1.3 (units (un known) date) unknown) (unknown) (no (unknown) (unknown) Lipase (units (unkno wn) date) unknown) (unknown) (no (unknown) (unknown) Lipase (units (unkno wn) date) unknown) (unknown) (no (unknown) (unknown) Lipase 135 (units (unk nown) date) unknown) (unknown) (no (unknown) (unknown) Low-dose (units (unkno wn) date) correctional scale unknown) insulin and adjust as needed (unknown) (no (unknown) (unknown) Lymph # (Auto) (units (unknown) date) unknown) (unknown) (no (unknown) (unknown) Lymph # (Auto) 600 L (uni ts (unknown) date) unknown) (unknown) (no (unknown) (unknown) Lymph # (Auto) 800 L (uni ts (unknown) date) unknown) (unknown) (no (unknown) (unknown) Lymph % (Auto) (units (unknown) date) unknown) (unknown) (no (unknown) (unknown) Lymph % (Auto) 11.4 (unit s (unknown) date) L unknown) (unknown) (no (unknown) (unknown) Lymph % (Auto) 9.9 L (uni ts (unknown) date) unknown) (unknown) (no (unknown) (unknown) MCH (units (unkno wn) date) unknown) (unknown) (no (unknown) (unknown) MCH 24.6 L (units (unk nown) date) unknown) (unknown) (no (unknown) (unknown) MCH 25.9 L (units (unk nown) date) unknown) (unknown) (no (unknown) (unknown) MCHC (units (unkno wn) date) unknown) (unknown) (no (unknown) (unknown) MCHC 32.4 (units (unkn own) date) unknown) (unknown) (no (unknown) (unknown) MCHC 32.9 (units (unkn own) date) unknown) (unknown) (no (unknown) (unknown) MCV (units (unkno wn) date) unknown) (unknown) (no (unknown) (unknown) MCV 75.7 L (units (unk nown) date) unknown) (unknown) (no (unknown) (unknown) MCV 78.6 L (units (unk nown) date) unknown) (unknown) (no (unknown) (unknown) Magnesium (units (unkn own) date) unknown) (unknown) (no (unknown) (unknown) Magnesium (units (unkn own) date) unknown) (unknown) (no (unknown) (unknown) Magnesium 1.5 L (units (unknown) date) unknown) (unknown) (no (unknown) (unknown) Magnesium 1.7 (units ( unknown) date) unknown) (unknown) (no (unknown) (unknown) Medical History (units (unknown) date) (Reviewed 01/27/22 @ unknown) 07:53 by Tony Aceves MD) (unknown) (no (unknown) (unknown) Lajas # (Auto) (units ( unknown) date) unknown) (unknown) (no (unknown) (unknown) Lajas # (Auto) 500 (units (unknown) date) unknown) (unknown) (no (unknown) (unknown) Lajas # (Auto) 700 (units (unknown) date) unknown) (unknown) (no (unknown) (unknown) Lajas % (Auto) (units ( unknown) date) unknown) (unknown) (no (unknown) (unknown) Lajas % (Auto) 8.4 (units (unknown) date) unknown) (unknown) (no (unknown) (unknown) Lajas % (Auto) 9.8 (units (unknown) date) unknown) (unknown) (no (unknown) (unknown) NT-Pro-B Natriuret (units (unknown) date) Pep unknown) (unknown) (no (unknown) (unknown) NT-Pro-B Natriuret (units (unknown) date) Pep unknown) (unknown) (no (unknown) (unknown) NT-Pro-B Natriuret (units (unknown) date) Pep 7170 H unknown) (unknown) (no (unknown) (unknown) Narrative (units (unkn own) date) unknown) (unknown) (no (unknown) (unknown) Neut # (Auto) (units ( unknown) date) unknown) (unknown) (no (unknown) (unknown) Neut # (Auto) 4600 (units (unknown) date) unknown) (unknown) (no (unknown) (unknown) Neut # (Auto) 5400 (units (unknown) date) unknown) (unknown) (no (unknown) (unknown) Neut % (Auto) (units ( unknown) date) unknown) (unknown) (no (unknown) (unknown) Neut % (Auto) 75.0 (units (unknown) date) unknown) (unknown) (no (unknown) (unknown) Neut % (Auto) 78.2 H (uni ts (unknown) date) unknown) (unknown) (no (unknown) (unknown) Objective (units (unkn own) date) unknown) (unknown) (no (unknown) (unknown) Orthopedic surgery (units (unknown) date) has been consulted unknown) and seen the patient. (unknown) (no (unknown) (unknown) Other Adopted (units ( unknown) date) unknown) (unknown) (no (unknown) (unknown) Oxygen Delivery (units (unknown) date) Method Room Air unknown) (unknown) (no (unknown) (unknown) Oxygen Flow Rate 0 (units (unknown) date) unknown) (unknown) (no (unknown) (unknown) Oxygen Flow Rate 0 0 (uni ts (unknown) date) unknown) (unknown) (no (unknown) (unknown) PFSH (units (unkno wn) date) unknown) (unknown) (no (unknown) (unknown) PT (units (unkno wn) date) unknown) (unknown) (no (unknown) (unknown) PT (units (unkno wn) date) unknown) (unknown) (no (unknown) (unknown) PT 14.1 H (units (unkn own) date) unknown) (unknown) (no (unknown) (unknown) Patient currently (units (unknown) date) being treated with unknown) vancomycin. This is essentially (unknown) (no (unknown) (unknown) Patient is inpatient (uni ts (unknown) date) service due to the unknown) severity of disease, risks of further (unknown) (no (unknown) (unknown) Patient is currently (uni ts (unknown) date) recovering from unknown) biventricular heart catheterization (unknown) (no (unknown) (unknown) Patient received 2 (units (unknown) date) units PRBC in the unknown) emergency department increasing his H+H (unknown) (no (unknown) (unknown) Patient was fluid (units (unknown) date) resuscitated in the unknown) emergency department 2 L (unknown) (no (unknown) (unknown) Patient's proBNP is (unit s (unknown) date) almost 7200 unknown) (unknown) (no (unknown) (unknown) Patient's (units (unkn own) date) rivaroxaban, aspirin unknown) and clopidogrel are being held (unknown) (no (unknown) (unknown) Patient: (units (unkno wn) date) Osmel Baxter MR#: unknown) M000 (unknown) (no (unknown) (unknown) Plt Count (units (unkn own) date) unknown) (unknown) (no (unknown) (unknown) Plt Count 164 (units ( unknown) date) unknown) (unknown) (no (unknown) (unknown) Plt Count 206 (units ( unknown) date) unknown) (unknown) (no (unknown) (unknown) Poikilocytosis (units (unknown) date) unknown) (unknown) (no (unknown) (unknown) Poikilocytosis 1+ H (unit s (unknown) date) unknown) (unknown) (no (unknown) (unknown) Potassium (units (unkn own) date) unknown) (unknown) (no (unknown) (unknown) Potassium 4.1 (units ( unknown) date) unknown) (unknown) (no (unknown) (unknown) Potassium 4.3 (units ( unknown) date) unknown) (unknown) (no (unknown) (unknown) Procalcitonin (units ( unknown) date) unknown) (unknown) (no (unknown) (unknown) Procalcitonin (units ( unknown) date) unknown) (unknown) (no (unknown) (unknown) Procalcitonin 0.50 (units (unknown) date) unknown) (unknown) (no (unknown) (unknown) Provider: (units (unkn own) date) Chary Ramirez MD unknown) (unknown) (no (unknown) (unknown) Pulse Oximetry 99 98 (uni ts (unknown) date) unknown) (unknown) (no (unknown) (unknown) Pulse Rate 61 63 63 (unit s (unknown) date) unknown) (unknown) (no (unknown) (unknown) Quality (units (unkno wn) date) unknown) (unknown) (no (unknown) (unknown) RBC (units (unkno wn) date) unknown) (unknown) (no (unknown) (unknown) RBC 2.75 L (units (unk nown) date) unknown) (unknown) (no (unknown) (unknown) RBC 3.16 L (units (unk nown) date) unknown) (unknown) (no (unknown) (unknown) RBC Morphology (units (unknown) date) unknown) (unknown) (no (unknown) (unknown) RBC Morphology Not (unit s (unknown) date) Reportable unknown) (unknown) (no (unknown) (unknown) RBC Morphology Not (units (unknown) date) Reportable unknown) (unknown) (no (unknown) (unknown) RDW (units (unkno wn) date) unknown) (unknown) (no (unknown) (unknown) RDW 23.2 H (units (unk nown) date) unknown) (unknown) (no (unknown) (unknown) RDW 24.5 H (units (unk nown) date) unknown) (unknown) (no (unknown) (unknown) Respiratory Rate 15 (unit s (unknown) date) 18 unknown) (unknown) (no (unknown) (unknown) Result Diagrams: (units (unknown) date) 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 (unknown) (no (unknown) (unknown) Smoking Status: (units (unknown) date) Former smoker unknown) (unknown) (no (unknown) (unknown) Social History (units (unknown) date) (Updated 09/25/18 @ unknown) 11:17 by Telma Dickey DO) (unknown) (no (unknown) (unknown) Sodium (units (unkno wn) date) unknown) (unknown) (no (unknown) (unknown) Sodium 132 L (units (u nknown) date) unknown) (unknown) (no (unknown) (unknown) Sodium 134 L (units (u nknown) date) unknown) (unknown) (no (unknown) (unknown) Subjective (units (unk nown) date) unknown) (unknown) (no (unknown) (unknown) Surgical History (units (unknown) date) (Reviewed 01/27/22 @ unknown) 07:53 by Tony Aceves MD) (unknown) (no (unknown) (unknown) Temperature 97.0 F L (uni ts (unknown) date) 97.4 F L unknown) (unknown) (no (unknown) (unknown) Time Patient Seen: (units (unknown) date) 10:45 unknown) (unknown) (no (unknown) (unknown) Time Spent With (units (unknown) date) Patient unknown) (unknown) (no (unknown) (unknown) Total Bilirubin (units (unknown) date) unknown) (unknown) (no (unknown) (unknown) Total Bilirubin 1.5 (unit s (unknown) date) H unknown) (unknown) (no (unknown) (unknown) Total Bilirubin 2.6 (unit s (unknown) date) H unknown) (unknown) (no (unknown) (unknown) Total Protein (units ( unknown) date) unknown) (unknown) (no (unknown) (unknown) Total Protein 6.4 (units (unknown) date) unknown) (unknown) (no (unknown) (unknown) Total Protein 7.1 (units (unknown) date) unknown) (unknown) (no (unknown) (unknown) Ur Culture (units (unk nown) date) Indicated? unknown) (unknown) (no (unknown) (unknown) Ur Culture (units (unk nown) date) Indicated? unknown) (unknown) (no (unknown) (unknown) Ur Culture (units (unk nown) date) Indicated? Specimen unknown) cultured (unknown) (no (unknown) (unknown) Urine Bacteria (units (unknown) date) unknown) (unknown) (no (unknown) (unknown) Urine Bacteria (units (unknown) date) unknown) (unknown) (no (unknown) (unknown) Urine Bacteria Few (units (unknown) date) (2-10) H unknown) (unknown) (no (unknown) (unknown) Urine RBC (units (unkn own) date) unknown) (unknown) (no (unknown) (unknown) Urine RBC (units (unkn own) date) unknown) (unknown) (no (unknown) (unknown) Urine RBC 0-1/hpf (units (unknown) date) unknown) (unknown) (no (unknown) (unknown) Urine WBC (units (unkn own) date) unknown) (unknown) (no (unknown) (unknown) Urine WBC (units (unkn own) date) unknown) (unknown) (no (unknown) (unknown) Urine WBC 30-100/hpf (uni ts (unknown) date) H unknown) (unknown) (no (unknown) (unknown) Urine Yeast (units (un known) date) unknown) (unknown) (no (unknown) (unknown) Urine Yeast (units (un known) date) unknown) (unknown) (no (unknown) (unknown) Urine Yeast (units (un known) date) 30-100/hpf H unknown) (unknown) (no (unknown) (unknown) VTE (units (unkno wn) date) unknown) (unknown) (no (unknown) (unknown) VTE Prophylaxis: (units (unknown) date) Wells risk score unknown) 1.5.? 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 Causing he (unknown) (no (unknown) (unknown) contraindicated in (units (unknown) date) the setting of active unknown) bleeding will do SCD? (unknown) (no (unknown) (unknown) daily. (units (unkno wn) date) Hydrochlorothiazide unknown) is not been ordered. Will add torsemide. (unknown) (no (unknown) (unknown) details: x 9 (uni ts (unknown) date) months unknown) (unknown) (no (unknown) (unknown) disease progression (unit s (unknown) date) and this stay is unknown) expected to exceed 2 midnights. (unknown) (no (unknown) (unknown) ejection fraction. (units (unknown) date) As well for wound unknown) care and hematoma care. (unknown) (no (unknown) (unknown) evaluate. Consult (units (unknown) date) ordered. unknown) (unknown) (no (unknown) (unknown) from 6.7-7.9 and (units (unknown) date) 20.8-24.5 unknown) respectively. Today hemoglobin stable at 8.2. (unknown) (no (unknown) (unknown) general edema of the (uni ts (unknown) date) lower extremities. unknown) Peripheral pulses equal bilaterally. (unknown) (no (unknown) (unknown) hold due to renal (units (unknown) date) function. unknown) (unknown) (no (unknown) (unknown) household members: (units (unknown) date) significant other unknown) (unknown) (no (unknown) (unknown) hydrochlorothiazide (unit s (unknown) date) and torsemide. Will unknown) increase daily furosemide to 40 mg (unknown) (no (unknown) (unknown) marital status: (units (unknown) date) unknown) (unknown) (no (unknown) (unknown) matoma left leg. (units (unknown) date) With skin compromise unknown) over the hematoma will have wound care (unknown) (no (unknown) (unknown) normocephalic. (units (unknown) date) unknown) (unknown) (no (unknown) (unknown) prophylactic. (units ( unknown) date) unknown) (unknown) (no (unknown) (unknown) supple. Neck nodes (units (unknown) date) are not tender not unknown) palpable. Trachea is midline. Head (unknown) (no (unknown) (unknown) today; this time is (unit s (unknown) date) exclusive of unknown) procedural time. Result panel 55 (unknown) (no (unknown) (unknown) (no value) (units (unk nown) date) unknown) (unknown) (no (unknown) (unknown) Date of Service: (units (unknown) date) 01/27/22 unknown) (unknown) (no (unknown) (unknown) (no value) (units (unk nown) date) unknown) (unknown) (no (unknown) (unknown) - (units (unkno wn) date) unknown) (unknown) (no (unknown) (unknown) 01/27/22 05:00 (units (unknown) date) unknown) (unknown) (no (unknown) (unknown) 01/27/22 1129 (units ( unknown) date) unknown) (unknown) (no (unknown) (unknown) [facility] [address] (uni ts (unknown) date) [address] unknown) [place] [address] (unknown) (no (unknown) (unknown) Laboratory Results - (uni ts (unknown) date) last 24 hr unknown) (unknown) (no (unknown) (unknown) Progress Note (units ( unknown) date) unknown) (unknown) (no (unknown) (unknown) (no value) (units (unk nown) date) unknown) (unknown) (no (unknown) (unknown) 01:37 05:00 05:00 (units (unknown) date) unknown) (unknown) (no (unknown) (unknown) 05:00 05:00 (units (un known) date) unknown) (unknown) (no (unknown) (unknown) 01/26/22 01/26/22 (units (unknown) date) 01/26/22 unknown) (unknown) (no (unknown) (unknown) 01/27/22 01/27/22 (units (unknown) date) unknown) (unknown) (no (unknown) (unknown) 01/27/22 01/27/22 (units (unknown) date) 01/27/22 unknown) (unknown) (no (unknown) (unknown) 19:40 19:40 19:40 (units (unknown) date) unknown) (unknown) (no (unknown) (unknown) 20:21 20:47 22:00 (units (unknown) date) unknown) (unknown) (no (unknown) (unknown) 01/27/22 (units (unkno wn) date) unknown) (unknown) (no (unknown) (unknown) A1c is 6.5 (units (unk nown) date) unknown) (unknown) (no (unknown) (unknown) care is appreciated. (uni ts (unknown) date) This has been unknown) completed. (unknown) (no (unknown) (unknown) enzymes, Mag, PT/INR (uni ts (unknown) date) unknown) (unknown) (no (unknown) (unknown) son when he visits (units (unknown) date) today. unknown) (unknown) (no (unknown) (unknown) (past 8 hours): (units (unknown) date) unknown) (unknown) (no (unknown) (unknown) 05:00 01/27/22 (units (unknown) date) unknown) (unknown) (no (unknown) (unknown) 08:20 01/27/22 (units (unknown) date) unknown) (unknown) (no (unknown) (unknown) 1. Acute blood loss (unit s (unknown) date) anemia likely unknown) secondary to over coagulation with what (unknown) (no (unknown) (unknown) 10:01 (units (unkno wn) date) unknown) (unknown) (no (unknown) (unknown) 2. Acute kidney (units (unknown) date) injury likely unknown) secondary to blood loss anemia, present on (unknown) (no (unknown) (unknown) 3. Acute (units (unkno wn) date) decompensated heart unknown) failure with reduced ejection fraction, present on (unknown) (no (unknown) (unknown) [id number] (units (unkno wn) date) unknown) (unknown) (no (unknown) (unknown) 4. Probable left (units (unknown) date) knee cellulitis, unknown) acute, present on admission (unknown) (no (unknown) (unknown) 5. Coronary artery (units (unknown) date) disease, chronic unknown) (unknown) (no (unknown) (unknown) 6. Diabetes type 2, (unit s (unknown) date) appears to be well unknown) controlled (unknown) (no (unknown) (unknown) ALT (units (unkno wn) date) unknown) (unknown) (no (unknown) (unknown) ALT 23 (units (unkno wn) date) unknown) (unknown) (no (unknown) (unknown) ALT 27 (units (unkno wn) date) unknown) (unknown) (no (unknown) (unknown) AST (units (unkno wn) date) unknown) (unknown) (no (unknown) (unknown) AST 28 (units (unkno wn) date) unknown) (unknown) (no (unknown) (unknown) AST 30 (units (unkno wn) date) unknown) (unknown) (no (unknown) (unknown) Age/Sex: 76 / M (units (unknown) date) unknown) (unknown) (no (unknown) (unknown) Albumin (units (unkno wn) date) unknown) (unknown) (no (unknown) (unknown) Albumin 3.0 L (units ( unknown) date) unknown) (unknown) (no (unknown) (unknown) Albumin 3.6 (units (un known) date) unknown) (unknown) (no (unknown) (unknown) Albumin/Globulin (units (unknown) date) Ratio unknown) (unknown) (no (unknown) (unknown) Albumin/Globulin (units (unknown) date) Ratio 0.9 L unknown) (unknown) (no (unknown) (unknown) Albumin/Globulin (units (unknown) date) Ratio 1.0 unknown) (unknown) (no (unknown) (unknown) Alkaline Phosphatase (uni ts (unknown) date) unknown) (unknown) (no (unknown) (unknown) Alkaline Phosphatase (uni ts (unknown) date) 144 H unknown) (unknown) (no (unknown) (unknown) Alkaline Phosphatase (uni ts (unknown) date) 170 H unknown) (unknown) (no (unknown) (unknown) Anisocytosis (units (u nknown) date) unknown) (unknown) (no (unknown) (unknown) Anisocytosis 2+ H (units (unknown) date) unknown) (unknown) (no (unknown) (unknown) Anisocytosis 3+ H (units (unknown) date) unknown) (unknown) (no (unknown) (unknown) Antibody Screen (units (unknown) date) unknown) (unknown) (no (unknown) (unknown) Antibody Screen (units (unknown) date) unknown) (unknown) (no (unknown) (unknown) Antibody Screen (units (unknown) date) Negative unknown) (unknown) (no (unknown) (unknown) Anticoagulated (units (unknown) date) unknown) (unknown) (no (unknown) (unknown) Assessment + Plan (units (unknown) date) unknown) (unknown) (no (unknown) (unknown) Assessment + Plan (units (unknown) date) narrative: unknown) (unknown) (no (unknown) (unknown) Atrial fibrillation (unit s (unknown) date) unknown) (unknown) (no (unknown) (unknown) BUN (units (unkno wn) date) unknown) (unknown) (no (unknown) (unknown) BUN 60 H (units (unkno wn) date) unknown) (unknown) (no (unknown) (unknown) BUN 61 H (units (unkno wn) date) unknown) (unknown) (no (unknown) (unknown) BUN/Creatinine Ratio (uni ts (unknown) date) unknown) (unknown) (no (unknown) (unknown) BUN/Creatinine Ratio (uni ts (unknown) date) 19.2 unknown) (unknown) (no (unknown) (unknown) BUN/Creatinine Ratio (uni ts (unknown) date) 22.5 H unknown) (unknown) (no (unknown) (unknown) Baso # (Auto) (units ( unknown) date) unknown) (unknown) (no (unknown) (unknown) Baso # (Auto) 0 (units (unknown) date) unknown) (unknown) (no (unknown) (unknown) Baso # (Auto) 100 (units (unknown) date) unknown) (unknown) (no (unknown) (unknown) Baso % (Auto) (units ( unknown) date) unknown) (unknown) (no (unknown) (unknown) Baso % (Auto) 0.7 (units (unknown) date) unknown) (unknown) (no (unknown) (unknown) Baso % (Auto) 1.0 (units (unknown) date) unknown) (unknown) (no (unknown) (unknown) Blood Pressure 96/34 (uni ts (unknown) date) L 103/48 L 103/48 L unknown) (unknown) (no (unknown) (unknown) Blood Type (units (unk nown) date) unknown) (unknown) (no (unknown) (unknown) Blood Type (units (unk nown) date) unknown) (unknown) (no (unknown) (unknown) Blood Type A (units (u nknown) date) Negative unknown) (unknown) (no (unknown) (unknown) Calcium (units (unkno wn) date) unknown) (unknown) (no (unknown) (unknown) Calcium 8.0 L (units ( unknown) date) unknown) (unknown) (no (unknown) (unknown) Calcium 8.4 (units (un known) date) unknown) (unknown) (no (unknown) (unknown) Carb controlled diet (uni ts (unknown) date) with a.c. HS glucose unknown) checks (unknown) (no (unknown) (unknown) Carbon Dioxide (units (unknown) date) unknown) (unknown) (no (unknown) (unknown) Carbon Dioxide 25 (units (unknown) date) unknown) (unknown) (no (unknown) (unknown) Carbon Dioxide 27 (units (unknown) date) unknown) (unknown) (no (unknown) (unknown) Cardiovascular: (units (unknown) date) Heart sounds S1 and unknown) S2 with no extra sounds or murmurs. Some (unknown) (no (unknown) (unknown) Chloride (units (unkno wn) date) unknown) (unknown) (no (unknown) (unknown) Chloride 100 (units (u nknown) date) unknown) (unknown) (no (unknown) (unknown) Chloride 97 L (units ( unknown) date) unknown) (unknown) (no (unknown) (unknown) Closely monitor (units (unknown) date) renal function and unknown) hold nephrotoxic medications (Lisinopril). (unknown) (no (unknown) (unknown) Code status: Full (units (unknown) date) code as discussed unknown) with the patient who identifies his son, (unknown) (no (unknown) (unknown) Consultants Dr. Aceves (uni ts (unknown) date) Orthopedic Surgery,? unknown) care and involvement in the patient?s (unknown) (no (unknown) (unknown) Continue carvedilol (unit s (unknown) date) 25 mg p.o. b.i.d., unknown) patient receives in 12.5 mg tablets (unknown) (no (unknown) (unknown) Continue home dose (units (unknown) date) of atorvastatin 40 mg unknown) p.o. at bedtime (unknown) (no (unknown) (unknown) Continue to (units (un known) date) follow-up. unknown) (unknown) (no (unknown) (unknown) Coronary artery (units (unknown) date) disease unknown) (unknown) (no (unknown) (unknown) Creatinine (units (unk nown) date) unknown) (unknown) (no (unknown) (unknown) Creatinine 2.67 H (units (unknown) date) unknown) (unknown) (no (unknown) (unknown) Creatinine 3.18 H (units (unknown) date) unknown) (unknown) (no (unknown) (unknown) Critical Care time: (unit s (unknown) date) unknown) (unknown) (no (unknown) (unknown) Crossmatch (units (unk nown) date) unknown) (unknown) (no (unknown) (unknown) Crossmatch (units (unk nown) date) unknown) (unknown) (no (unknown) (unknown) Crossmatch See (units (unknown) date) Detail unknown) (unknown) (no (unknown) (unknown) : 1945 (units (unknown) date) Acct:[id number] unknown) (unknown) (no (unknown) (unknown) Date Patient Seen: (units (unknown) date) 01/27/22 unknown) (unknown) (no (unknown) (unknown) Deep Vein (units (unkn own) date) Thrombosis/Pulmonary unknown) Embolism Present on Admission: No (unknown) (no (unknown) (unknown) Diabetes (units (unkno wn) date) unknown) (unknown) (no (unknown) (unknown) Dispo: Unknown at (units (unknown) date) this time unknown) (unknown) (no (unknown) (unknown) David his surrogate (units (unknown) date) and POA. unknown) (unknown) (no (unknown) (unknown) Dyslipidemia (units (u nknown) date) unknown) (unknown) (no (unknown) (unknown) Eos # (Auto) (units (u nknown) date) unknown) (unknown) (no (unknown) (unknown) Eos # (Auto) 200 (units (unknown) date) unknown) (unknown) (no (unknown) (unknown) Eos # (Auto) 200 (units (unknown) date) unknown) (unknown) (no (unknown) (unknown) Eos % (Auto) (units (u nknown) date) unknown) (unknown) (no (unknown) (unknown) Eos % (Auto) 2.8 (units (unknown) date) unknown) (unknown) (no (unknown) (unknown) Eos % (Auto) 2.8 (units (unknown) date) unknown) (unknown) (no (unknown) (unknown) Estimated GFR (units ( unknown) date) unknown) (unknown) (no (unknown) (unknown) Estimated GFR 19 L (units (unknown) date) unknown) (unknown) (no (unknown) (unknown) Estimated GFR 24 L (units (unknown) date) unknown) (unknown) (no (unknown) (unknown) Exam (units (unkno wn) date) unknown) (unknown) (no (unknown) (unknown) Exam Narrative: (units (unknown) date) unknown) (unknown) (no (unknown) (unknown) FEN: IV fluids: (units (unknown) date) saline lock, diet: unknown) carb controlled diet, labs: CBC, C/BMP, liver (unknown) (no (unknown) (unknown) Family History (units (unknown) date) (Reviewed 01/27/22 @ unknown) 07:53 by Tony Aceves MD) (unknown) (no (unknown) (unknown) GFR improved to 24 (units (unknown) date) today. Continue to unknown) follow (unknown) (no (unknown) (unknown) Gastrointestinal: (units (unknown) date) Abdomen soft unknown) nontender bowel sounds normal. (unknown) (no (unknown) (unknown) Globulin (units (unkno wn) date) unknown) (unknown) (no (unknown) (unknown) Globulin 3.4 (units (u nknown) date) unknown) (unknown) (no (unknown) (unknown) Globulin 3.5 (units (u nknown) date) unknown) (unknown) (no (unknown) (unknown) Glucose (units (unkno wn) date) unknown) (unknown) (no (unknown) (unknown) Glucose 130 H (units ( unknown) date) unknown) (unknown) (no (unknown) (unknown) Glucose 133 H (units ( unknown) date) unknown) (unknown) (no (unknown) (unknown) HEENT: Was equal (units (unknown) date) reactive to light. unknown) Extraocular movements normal. Neck is (unknown) (no (unknown) (unknown) Osmel Baxter was (units (unknown) date) admitted for further unknown) management of acute blood loss anemia, (unknown) (no (unknown) (unknown) Hct (units (unkno wn) date) unknown) (unknown) (no (unknown) (unknown) Hct 20.8 L* (units (un known) date) unknown) (unknown) (no (unknown) (unknown) Hct 24.5 L (units (unk nown) date) unknown) (unknown) (no (unknown) (unknown) Hct 24.9 L (units (unk nown) date) unknown) (unknown) (no (unknown) (unknown) He indicates his (units (unknown) date) pain is adequately unknown) controlled. No new complaints. (unknown) (no (unknown) (unknown) He is currently (units (unknown) date) saline lock due to unknown) volume overload (unknown) (no (unknown) (unknown) He will receive his (unit s (unknown) date) home dose of Lantus unknown) 30 units b.i.d. Metformin remains on (unknown) (no (unknown) (unknown) Hemoglobin A1c (units (unknown) date) unknown) (unknown) (no (unknown) (unknown) Hemoglobin A1c (units (unknown) date) unknown) (unknown) (no (unknown) (unknown) Hemoglobin A1c 6.5 H (uni ts (unknown) date) unknown) (unknown) (no (unknown) (unknown) Hgb (units (unkno wn) date) unknown) (unknown) (no (unknown) (unknown) Hgb 6.7 L* (units (unk nown) date) unknown) (unknown) (no (unknown) (unknown) Hgb 7.9 L (units (unkn own) date) unknown) (unknown) (no (unknown) (unknown) Hgb 8.2 L (units (unkn own) date) unknown) (unknown) (no (unknown) (unknown) Hx of (units (unkno wn) date) cholecystectomy unknown) (unknown) (no (unknown) (unknown) Hypertension (units (u nknown) date) unknown) (unknown) (no (unknown) (unknown) I spent a total of (units (unknown) date) [] minutes of unknown) critical care time on this patient's care (unknown) (no (unknown) (unknown) INR (units (unkno wn) date) unknown) (unknown) (no (unknown) (unknown) INR (units (unkno wn) date) unknown) (unknown) (no (unknown) (unknown) INR 1.2 (units (unkno wn) date) unknown) (unknown) (no (unknown) (unknown) In the ER, he (units ( unknown) date) received IV Lasix 80 unknown) mg in addition to his home oral dose of (unknown) (no (unknown) (unknown) Interval history: (units (unknown) date) unknown) (unknown) (no (unknown) (unknown) Labs (units (unkno wn) date) unknown) (unknown) (no (unknown) (unknown) Labs: (units (unkno wn) date) unknown) (unknown) (no (unknown) (unknown) Lactate (units (unkno wn) date) unknown) (unknown) (no (unknown) (unknown) Lactate (units (unkno wn) date) unknown) (unknown) (no (unknown) (unknown) Lactate 1.3 (units (un known) date) unknown) (unknown) (no (unknown) (unknown) Lipase (units (unkno wn) date) unknown) (unknown) (no (unknown) (unknown) Lipase (units (unkno wn) date) unknown) (unknown) (no (unknown) (unknown) Lipase 135 (units (unk nown) date) unknown) (unknown) (no (unknown) (unknown) Low-dose (units (unkno wn) date) correctional scale unknown) insulin and adjust as needed (unknown) (no (unknown) (unknown) Lymph # (Auto) (units (unknown) date) unknown) (unknown) (no (unknown) (unknown) Lymph # (Auto) 600 L (uni ts (unknown) date) unknown) (unknown) (no (unknown) (unknown) Lymph # (Auto) 800 L (uni ts (unknown) date) unknown) (unknown) (no (unknown) (unknown) Lymph % (Auto) (units (unknown) date) unknown) (unknown) (no (unknown) (unknown) Lymph % (Auto) 11.4 (unit s (unknown) date) L unknown) (unknown) (no (unknown) (unknown) Lymph % (Auto) 9.9 L (uni ts (unknown) date) unknown) (unknown) (no (unknown) (unknown) MCH (units (unkno wn) date) unknown) (unknown) (no (unknown) (unknown) MCH 24.6 L (units (unk nown) date) unknown) (unknown) (no (unknown) (unknown) MCH 25.9 L (units (unk nown) date) unknown) (unknown) (no (unknown) (unknown) MCHC (units (unkno wn) date) unknown) (unknown) (no (unknown) (unknown) MCHC 32.4 (units (unkn own) date) unknown) (unknown) (no (unknown) (unknown) MCHC 32.9 (units (unkn own) date) unknown) (unknown) (no (unknown) (unknown) MCV (units (unkno wn) date) unknown) (unknown) (no (unknown) (unknown) MCV 75.7 L (units (unk nown) date) unknown) (unknown) (no (unknown) (unknown) MCV 78.6 L (units (unk nown) date) unknown) (unknown) (no (unknown) (unknown) Magnesium (units (unkn own) date) unknown) (unknown) (no (unknown) (unknown) Magnesium (units (unkn own) date) unknown) (unknown) (no (unknown) (unknown) Magnesium 1.5 L (units (unknown) date) unknown) (unknown) (no (unknown) (unknown) Magnesium 1.7 (units ( unknown) date) unknown) (unknown) (no (unknown) (unknown) Medical History (units (unknown) date) (Reviewed 01/27/22 @ unknown) 07:53 by Tony Aceves MD) (unknown) (no (unknown) (unknown) Lajas # (Auto) (units ( unknown) date) unknown) (unknown) (no (unknown) (unknown) Lajas # (Auto) 500 (units (unknown) date) unknown) (unknown) (no (unknown) (unknown) Lajas # (Auto) 700 (units (unknown) date) unknown) (unknown) (no (unknown) (unknown) Lajas % (Auto) (units ( unknown) date) unknown) (unknown) (no (unknown) (unknown) Lajas % (Auto) 8.4 (units (unknown) date) unknown) (unknown) (no (unknown) (unknown) Lajas % (Auto) 9.8 (units (unknown) date) unknown) (unknown) (no (unknown) (unknown) Musculoskeletal: (units (unknown) date) Able to move all unknown) extremities volitionally. Left knee dressed (unknown) (no (unknown) (unknown) NT-Pro-B Natriuret (units (unknown) date) Pep unknown) (unknown) (no (unknown) (unknown) NT-Pro-B Natriuret (units (unknown) date) Pep unknown) (unknown) (no (unknown) (unknown) NT-Pro-B Natriuret (units (unknown) date) Pep 7170 H unknown) (unknown) (no (unknown) (unknown) Narrative (units (unkn own) date) unknown) (unknown) (no (unknown) (unknown) Neuro: Alert and (units (unknown) date) oriented to person unknown) and place. Normal sensation of all (unknown) (no (unknown) (unknown) Neut # (Auto) (units ( unknown) date) unknown) (unknown) (no (unknown) (unknown) Neut # (Auto) 4600 (units (unknown) date) unknown) (unknown) (no (unknown) (unknown) Neut # (Auto) 5400 (units (unknown) date) unknown) (unknown) (no (unknown) (unknown) Neut % (Auto) (units ( unknown) date) unknown) (unknown) (no (unknown) (unknown) Neut % (Auto) 75.0 (units (unknown) date) unknown) (unknown) (no (unknown) (unknown) Neut % (Auto) 78.2 H (uni ts (unknown) date) unknown) (unknown) (no (unknown) (unknown) Objective (units (unkn own) date) unknown) (unknown) (no (unknown) (unknown) Orthopedic surgery (units (unknown) date) has been consulted unknown) and seen the patient. (unknown) (no (unknown) (unknown) Other Adopted (units ( unknown) date) unknown) (unknown) (no (unknown) (unknown) Oxygen Delivery (units (unknown) date) Method Room Air unknown) (unknown) (no (unknown) (unknown) Oxygen Flow Rate 0 (units (unknown) date) unknown) (unknown) (no (unknown) (unknown) Oxygen Flow Rate 0 0 (uni ts (unknown) date) unknown) (unknown) (no (unknown) (unknown) PFSH (units (unkno wn) date) unknown) (unknown) (no (unknown) (unknown) PT (units (unkno wn) date) unknown) (unknown) (no (unknown) (unknown) PT (units (unkno wn) date) unknown) (unknown) (no (unknown) (unknown) PT 14.1 H (units (unkn own) date) unknown) (unknown) (no (unknown) (unknown) Patient currently (units (unknown) date) being treated with unknown) vancomycin. This is essentially (unknown) (no (unknown) (unknown) Patient is inpatient (uni ts (unknown) date) service due to the unknown) severity of disease, risks of further (unknown) (no (unknown) (unknown) Patient is currently (uni ts (unknown) date) recovering from unknown) biventricular heart catheterization (unknown) (no (unknown) (unknown) Patient received 2 (units (unknown) date) units PRBC in the unknown) emergency department increasing his H+H (unknown) (no (unknown) (unknown) Patient was fluid (units (unknown) date) resuscitated in the unknown) emergency department 2 L (unknown) (no (unknown) (unknown) Patient's proBNP is (unit s (unknown) date) almost 7200 unknown) (unknown) (no (unknown) (unknown) Patient's (units (unkn own) date) rivaroxaban, aspirin unknown) and clopidogrel are being held (unknown) (no (unknown) (unknown) Patient: (units (unkno wn) date) Osmel Baxter MR#: unknown) M000 (unknown) (no (unknown) (unknown) Plt Count (units (unkn own) date) unknown) (unknown) (no (unknown) (unknown) Plt Count 164 (units ( unknown) date) unknown) (unknown) (no (unknown) (unknown) Plt Count 206 (units ( unknown) date) unknown) (unknown) (no (unknown) (unknown) Poikilocytosis (units (unknown) date) unknown) (unknown) (no (unknown) (unknown) Poikilocytosis 1+ H (unit s (unknown) date) unknown) (unknown) (no (unknown) (unknown) Potassium (units (unkn own) date) unknown) (unknown) (no (unknown) (unknown) Potassium 4.1 (units ( unknown) date) unknown) (unknown) (no (unknown) (unknown) Potassium 4.3 (units ( unknown) date) unknown) (unknown) (no (unknown) (unknown) Procalcitonin (units ( unknown) date) unknown) (unknown) (no (unknown) (unknown) Procalcitonin (units ( unknown) date) unknown) (unknown) (no (unknown) (unknown) Procalcitonin 0.50 (units (unknown) date) unknown) (unknown) (no (unknown) (unknown) Provider: (units (unkn own) date) Chary Ramirez MD unknown) (unknown) (no (unknown) (unknown) Psych: Appears to be (uni ts (unknown) date) in good mood. No unknown) signs of acute depression. (unknown) (no (unknown) (unknown) Pulse Oximetry 99 98 (uni ts (unknown) date) unknown) (unknown) (no (unknown) (unknown) Pulse Rate 61 63 63 (unit s (unknown) date) unknown) (unknown) (no (unknown) (unknown) Quality (units (unkno wn) date) unknown) (unknown) (no (unknown) (unknown) RBC (units (unkno wn) date) unknown) (unknown) (no (unknown) (unknown) RBC 2.75 L (units (unk nown) date) unknown) (unknown) (no (unknown) (unknown) RBC 3.16 L (units (unk nown) date) unknown) (unknown) (no (unknown) (unknown) RBC Morphology (units (unknown) date) unknown) (unknown) (no (unknown) (unknown) RBC Morphology Not (units (unknown) date) Reportable unknown) (unknown) (no (unknown) (unknown) RBC Morphology Not (units (unknown) date) Reportable unknown) (unknown) (no (unknown) (unknown) RDW (units (unkno wn) date) unknown) (unknown) (no (unknown) (unknown) RDW 23.2 H (units (unk nown) date) unknown) (unknown) (no (unknown) (unknown) RDW 24.5 H (units (unk nown) date) unknown) (unknown) (no (unknown) (unknown) Respiratory Rate 15 (unit s (unknown) date) 18 unknown) (unknown) (no (unknown) (unknown) Respiratory: (units (u nknown) date) Adequate air entry unknown) throughout the lung adam no wheezes or (unknown) (no (unknown) (unknown) Result Diagrams: (units (unknown) date) 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 Left knee area wound. (unknown) (no (unknown) (unknown) Sleep apnea (units (un known) date) unknown) (unknown) (no (unknown) (unknown) Sleepy but does not (unit s (unknown) date) appear to be any in unknown) any acute medical distress. (unknown) (no (unknown) (unknown) Smoking Status: (units (unknown) date) Former smoker unknown) (unknown) (no (unknown) (unknown) Social History (units (unknown) date) (Updated 09/25/18 @ unknown) 11:17 by Telma Dickey DO) (unknown) (no (unknown) (unknown) Sodium (units (unkno wn) date) unknown) (unknown) (no (unknown) (unknown) Sodium 132 L (units (u nknown) date) unknown) (unknown) (no (unknown) (unknown) Sodium 134 L (units (u nknown) date) unknown) (unknown) (no (unknown) (unknown) Subjective (units (unk nown) date) unknown) (unknown) (no (unknown) (unknown) Surgical History (units (unknown) date) (Reviewed 01/27/22 @ unknown) 07:53 by Tony Aceves MD) (unknown) (no (unknown) (unknown) Temperature 97.0 F L (uni ts (unknown) date) 97.4 F L unknown) (unknown) (no (unknown) (unknown) Time Patient Seen: (units (unknown) date) 10:45 unknown) (unknown) (no (unknown) (unknown) Time Spent With (units (unknown) date) Patient unknown) (unknown) (no (unknown) (unknown) Total Bilirubin (units (unknown) date) unknown) (unknown) (no (unknown) (unknown) Total Bilirubin 1.5 (unit s (unknown) date) H unknown) (unknown) (no (unknown) (unknown) Total Bilirubin 2.6 (unit s (unknown) date) H unknown) (unknown) (no (unknown) (unknown) Total Protein (units ( unknown) date) unknown) (unknown) (no (unknown) (unknown) Total Protein 6.4 (units (unknown) date) unknown) (unknown) (no (unknown) (unknown) Total Protein 7.1 (units (unknown) date) unknown) (unknown) (no (unknown) (unknown) Ur Culture (units (unk nown) date) Indicated? unknown) (unknown) (no (unknown) (unknown) Ur Culture (units (unk nown) date) Indicated? unknown) (unknown) (no (unknown) (unknown) Ur Culture (units (unk nown) date) Indicated? Specimen unknown) cultured (unknown) (no (unknown) (unknown) Urine Bacteria (units (unknown) date) unknown) (unknown) (no (unknown) (unknown) Urine Bacteria (units (unknown) date) unknown) (unknown) (no (unknown) (unknown) Urine Bacteria Few (units (unknown) date) (2-10) H unknown) (unknown) (no (unknown) (unknown) Urine RBC (units (unkn own) date) unknown) (unknown) (no (unknown) (unknown) Urine RBC (units (unkn own) date) unknown) (unknown) (no (unknown) (unknown) Urine RBC 0-1/hpf (units (unknown) date) unknown) (unknown) (no (unknown) (unknown) Urine WBC (units (unkn own) date) unknown) (unknown) (no (unknown) (unknown) Urine WBC (units (unkn own) date) unknown) (unknown) (no (unknown) (unknown) Urine WBC 30-100/hpf (uni ts (unknown) date) H unknown) (unknown) (no (unknown) (unknown) Urine Yeast (units (un known) date) unknown) (unknown) (no (unknown) (unknown) Urine Yeast (units (un known) date) unknown) (unknown) (no (unknown) (unknown) Urine Yeast (units (un known) date) 30-100/hpf H unknown) (unknown) (no (unknown) (unknown) VTE (units (unkno wn) date) unknown) (unknown) (no (unknown) (unknown) VTE Prophylaxis: (units (unknown) date) Wells risk score unknown) 1.5.? 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 unknown) (unknown) (no (unknown) (unknown) [Embedded Image Not (unit s (unknown) date) Available] unknown) (unknown) (no (unknown) (unknown) acute kidney injury, (uni ts (unknown) date) and acute unknown) exacerbation of heart failure with reduced (unknown) (no (unknown) (unknown) admission (units (unkn own) date) unknown) (unknown) (no (unknown) (unknown) appears to be triple (uni ts (unknown) date) anti-platelet unknown) therapy, present on admission. Causing (unknown) (no (unknown) (unknown) clarifying the exact (unit s (unknown) date) regular medications unknown) for this patient. Will re-discuss with (unknown) (no (unknown) (unknown) contraindicated in (units (unknown) date) the setting of active unknown) bleeding will do SCD? (unknown) (no (unknown) (unknown) crackles. (units (unkn own) date) unknown) (unknown) (no (unknown) (unknown) daily. (units (unkno wn) date) Hydrochlorothiazide unknown) is not been ordered. Will add torsemide. (unknown) (no (unknown) (unknown) details: x 9 (uni ts (unknown) date) months unknown) (unknown) (no (unknown) (unknown) disease progression (unit s (unknown) date) and this stay is unknown) expected to exceed 2 midnights. (unknown) (no (unknown) (unknown) ejection fraction. (units (unknown) date) As well for wound unknown) care and hematoma care. Difficulty (unknown) (no (unknown) (unknown) evaluate. Consult (units (unknown) date) ordered. unknown) (unknown) (no (unknown) (unknown) extremities. (units (u nknown) date) unknown) (unknown) (no (unknown) (unknown) from 6.7-7.9 and (units (unknown) date) 20.8-24.5 unknown) respectively. Today hemoglobin stable at 8.2. (unknown) (no (unknown) (unknown) general edema of the (uni ts (unknown) date) lower extremities. unknown) Peripheral pulses equal bilaterally. (unknown) (no (unknown) (unknown) hematoma left leg. (units (unknown) date) With skin compromise unknown) over the hematoma will have wound care (unknown) (no (unknown) (unknown) hold due to renal (units (unknown) date) function. unknown) (unknown) (no (unknown) (unknown) household members: (units (unknown) date) significant other unknown) (unknown) (no (unknown) (unknown) hydrochlorothiazide (unit s (unknown) date) and torsemide. Will unknown) increase daily furosemide to 40 mg (unknown) (no (unknown) (unknown) marital status: (units (unknown) date) unknown) (unknown) (no (unknown) (unknown) normocephalic. (units (unknown) date) unknown) (unknown) (no (unknown) (unknown) prophylactic. (units ( unknown) date) unknown) (unknown) (no (unknown) (unknown) supple. Neck nodes (units (unknown) date) are not tender not unknown) palpable. Trachea is midline. Head (unknown) (no (unknown) (unknown) today; this time is (unit s (unknown) date) exclusive of unknown) procedural time. (unknown) (no (unknown) (unknown) where a (units (unkno wn) date) hematoma/wound is. unknown) Result panel 56 (unknown) (no date) (unknown) (unknown) (no value) (units (un known) unknown) (unknown) (no date) (unknown) (unknown) NO GROWTH (units (unk nown) AFTER 24 unknown) HOURS Result panel 57 (unknown) (no date) (unknown) (unknown) (no value) (units (un known) unknown) (unknown) (no date) (unknown) (unknown) NO GROWTH (units (unk nown) AFTER 24 unknown) HOURS Result panel 58 (unknown) (no date) (unknown) (unknown) 0 /uL (unkn own) (unknown) (no date) (unknown) (unknown) 0.7 % (unkn own) (unknown) (no date) (unknown) (unknown) 10.4 % (unkn own) (unknown) (no date) (unknown) (unknown) 13.4 % (unkn own) (unknown) (no date) (unknown) (unknown) 159 X10 3/uL (unkn own) (unknown) (no date) (unknown) (unknown) 200 /uL (unkn own) (unknown) (no date) (unknown) (unknown) 23.7 % (unkn own) (unknown) (no date) (unknown) (unknown) 24.2 % (unkn own) (unknown) (no date) (unknown) (unknown) 26.1 PG (unkn own) (unknown) (no date) (unknown) (unknown) 3.11 X10 6/uL (unkn own) (unknown) (no date) (unknown) (unknown) 3.8 % (unkn own) (unknown) (no date) (unknown) (unknown) 33.5 % (unkn own) (unknown) (no date) (unknown) (unknown) 3400 /uL (unkn own) (unknown) (no date) (unknown) (unknown) 4.7 X10 3/uL (unkn own) (unknown) (no date) (unknown) (unknown) 500 /uL (unkn own) (unknown) (no date) (unknown) (unknown) 600 /uL (unkn own) (unknown) (no date) (unknown) (unknown) 71.7 % (unkn own) (unknown) (no date) (unknown) (unknown) 77.8 fL (unkn own) (unknown) (no date) (unknown) (unknown) 8.1 g/dL (unkn own) Result panel 59 (unknown) (no date) (unknown) (unknown) 0.9 (units unknown) (unknown) (unknown) (no date) (unknown) (unknown) 1.9 mg/dL (unkn own) (unknown) (no date) (unknown) (unknown) 107 mg/dL (unkn own) (unknown) (no date) (unknown) (unknown) 133 U/L (unkn own) (unknown) (no date) (unknown) (unknown) 134 mmol/L (unkn own) (unknown) (no date) (unknown) (unknown) 17 IU/L (unkn own) (unknown) (no date) (unknown) (unknown) 2.18 mg/dL (unkn own) (unknown) (no date) (unknown) (unknown) 22 IU/L (unkn own) (unknown) (no date) (unknown) (unknown) 24.3 (units unknown) (unknown) (unknown) (no date) (unknown) (unknown) 27 mmol/L (unkn own) (unknown) (no date) (unknown) (unknown) 3.2 g/dL (unkn own) (unknown) (no date) (unknown) (unknown) 3.5 g/dL (unkn own) (unknown) (no date) (unknown) (unknown) 3.7 mmol/L (unkn own) (unknown) (no date) (unknown) (unknown) 31 mL/min (unkn own) (unknown) (no date) (unknown) (unknown) 53 mg/dL (unkn own) (unknown) (no date) (unknown) (unknown) 6.7 g/dL (unkn own) (unknown) (no date) (unknown) (unknown) 8.3 mg/dL (unkn own) (unknown) (no date) (unknown) (unknown) 99 mmol/L (unkn own) Result panel 60 (unknown) (no date) (unknown) (unknown) 0.9 (units unknown) (unknown) (unknown) (no date) (unknown) (unknown) 1.9 mg/dL (unkn own) (unknown) (no date) (unknown) (unknown) 107 mg/dL (unkn own) (unknown) (no date) (unknown) (unknown) 133 U/L (unkn own) (unknown) (no date) (unknown) (unknown) 134 mmol/L (unkn own) (unknown) (no date) (unknown) (unknown) 16.1 mg/dL (unkn own) (unknown) (no date) (unknown) (unknown) 17 IU/L (unkn own) (unknown) (no date) (unknown) (unknown) 2.18 mg/dL (unkn own) (unknown) (no date) (unknown) (unknown) 22 IU/L (unkn own) (unknown) (no date) (unknown) (unknown) 24.3 (units unknown) (unknown) (unknown) (no date) (unknown) (unknown) 27 mmol/L (unkn own) (unknown) (no date) (unknown) (unknown) 3.2 g/dL (unkn own) (unknown) (no date) (unknown) (unknown) 3.5 g/dL (unkn own) (unknown) (no date) (unknown) (unknown) 3.7 mmol/L (unkn own) (unknown) (no date) (unknown) (unknown) 31 mL/min (unkn own) (unknown) (no date) (unknown) (unknown) 53 mg/dL (unkn own) (unknown) (no date) (unknown) (unknown) 6.7 g/dL (unkn own) (unknown) (no date) (unknown) (unknown) 8.3 mg/dL (unkn own) (unknown) (no date) (unknown) (unknown) 99 mmol/L (unkn own) Result panel 61 (unknown) (no date) (unknown) (unknown) 1.4 mg/dL (unkn own) Result panel 62 (unknown) (no date) (unknown) (unknown) 0 /uL (unkn own) (unknown) (no date) (unknown) (unknown) 0.7 % (unkn own) (unknown) (no date) (unknown) (unknown) 10.4 % (unkn own) (unknown) (no date) (unknown) (unknown) 13.4 % (unkn own) (unknown) (no date) (unknown) (unknown) 159 X10 3/uL (unkn own) (unknown) (no date) (unknown) (unknown) 200 /uL (unkn own) (unknown) (no date) (unknown) (unknown) 23.7 % (unkn own) (unknown) (no date) (unknown) (unknown) 24.2 % (unkn own) (unknown) (no date) (unknown) (unknown) 26.1 PG (unkn own) (unknown) (no date) (unknown) (unknown) 3+ (units (unkn own) unknown) (unknown) (no date) (unknown) (unknown) 3.11 X10 6/uL (unkn own) (unknown) (no date) (unknown) (unknown) 3.8 % (unkn own) (unknown) (no date) (unknown) (unknown) 33.5 % (unkn own) (unknown) (no date) (unknown) (unknown) 3400 /uL (unkn own) (unknown) (no date) (unknown) (unknown) 4.7 X10 3/uL (unkn own) (unknown) (no date) (unknown) (unknown) 500 /uL (unkn own) (unknown) (no date) (unknown) (unknown) 600 /uL (unkn own) (unknown) (no date) (unknown) (unknown) 71.7 % (unkn own) (unknown) (no date) (unknown) (unknown) 77.8 fL (unkn own) (unknown) (no date) (unknown) (unknown) 8.1 g/dL (unkn own) (unknown) (no date) (unknown) (unknown) See Below (units (unk nown) unknown) Result panel 63 (unknown) (no (unknown) (unknown) 40,000 - 50,000 CFU/ml (unknown) date) (unknown) (no (unknown) (unknown) GenericComposite[ (units (unknown) date) YEA^Yeast] unknown) (unknown) (no (unknown) (unknown) Identification to (units (unknown) date) follow unknown) Result panel 64 (unknown) (no (unknown) (unknown) (no value) (units (unk nown) date) unknown) (unknown) (no (unknown) (unknown) Date of Service: (units (unknown) date) 01/27/22 unknown) (unknown) (no (unknown) (unknown) (no value) (units (unk nown) date) unknown) (unknown) (no (unknown) (unknown) - (units (unkno wn) date) unknown) (unknown) (no (unknown) (unknown) 01/28/22 05:25 (units (unknown) date) unknown) (unknown) (no (unknown) (unknown) [facility] [address] (uni ts (unknown) date) [address]) [place] [id number] (unknown) (no (unknown) (unknown) Laboratory Results - (uni ts (unknown) date) last 24 hr unknown) (unknown) (no (unknown) (unknown) Progress Note (units ( unknown) date) unknown) (unknown) (no (unknown) (unknown) (no value) (units (unk nown) date) unknown) (unknown) (no (unknown) (unknown) 05:25 05:25 05:25 (units (unknown) date) unknown) (unknown) (no (unknown) (unknown) 01/28/22 01/28/22 (units (unknown) date) 01/28/22 unknown) (unknown) (no (unknown) (unknown) 01/28/22 (units (unkno wn) date) unknown) (unknown) (no (unknown) (unknown) enzymes, Mag, PT/INR (uni ts (unknown) date) unknown) (unknown) (no (unknown) (unknown) (past 8 hours): (units (unknown) date) unknown) (unknown) (no (unknown) (unknown) 08:00 01/28/22 (units (unknown) date) unknown) (unknown) (no (unknown) (unknown) 08:54 (units (unkno wn) date) unknown) (unknown) (no (unknown) (unknown) 1. Acute blood loss (unit s (unknown) date) anemia likely unknown) secondary to over coagulation with what (unknown) (no (unknown) (unknown) 2. Acute kidney (units (unknown) date) injury likely unknown) secondary to blood loss anemia, present on (unknown) (no (unknown) (unknown) 3. Acute (units (unkno wn) date) decompensated heart unknown) failure with reduced ejection fraction, present on (unknown) (no (unknown) (unknown) [id number] (units (unkno wn) date) unknown) (unknown) (no (unknown) (unknown) 4. Probable left (units (unknown) date) knee cellulitis, unknown) acute, present on admission (unknown) (no (unknown) (unknown) 5. Coronary artery (units (unknown) date) disease, chronic unknown) (unknown) (no (unknown) (unknown) 6. Diabetes type 2, (unit s (unknown) date) appears to be well unknown) controlled (unknown) (no (unknown) (unknown) ?A1c is 6.5 (units (un known) date) unknown) (unknown) (no (unknown) (unknown) ALT 17 (units (unkno wn) date) unknown) (unknown) (no (unknown) (unknown) AST 22 (units (unkno wn) date) unknown) (unknown) (no (unknown) (unknown) Age/Sex: 76 / M (units (unknown) date) unknown) (unknown) (no (unknown) (unknown) Albumin 3.2 L (units ( unknown) date) unknown) (unknown) (no (unknown) (unknown) Albumin/Globulin (units (unknown) date) Ratio 0.9 L unknown) (unknown) (no (unknown) (unknown) Alkaline Phosphatase (uni ts (unknown) date) 133 H unknown) (unknown) (no (unknown) (unknown) Anisocytosis 3+ H (units (unknown) date) unknown) (unknown) (no (unknown) (unknown) Anticoagulated (units (unknown) date) unknown) (unknown) (no (unknown) (unknown) Assessment + Plan (units (unknown) date) unknown) (unknown) (no (unknown) (unknown) Assessment + Plan (units (unknown) date) narrative: unknown) (unknown) (no (unknown) (unknown) Atrial fibrillation (unit s (unknown) date) unknown) (unknown) (no (unknown) (unknown) BUN 53 H (units (unkno wn) date) unknown) (unknown) (no (unknown) (unknown) BUN/Creatinine Ratio (uni ts (unknown) date) 24.3 H unknown) (unknown) (no (unknown) (unknown) Baso # (Auto) 0 (units (unknown) date) unknown) (unknown) (no (unknown) (unknown) Baso % (Auto) 0.7 (units (unknown) date) unknown) (unknown) (no (unknown) (unknown) Blood Pressure (units (unknown) date) 111/47 L 111/47 L unknown) (unknown) (no (unknown) (unknown) C-Reactive Protein (units (unknown) date) 16.1 H unknown) (unknown) (no (unknown) (unknown) Calcium 8.3 L (units ( unknown) date) unknown) (unknown) (no (unknown) (unknown) Carb controlled diet (uni ts (unknown) date) with a.c. HS glucose unknown) checks (unknown) (no (unknown) (unknown) Carbon Dioxide 27 (units (unknown) date) unknown) (unknown) (no (unknown) (unknown) Chloride 99 (units (un known) date) unknown) (unknown) (no (unknown) (unknown) Closely monitor (units (unknown) date) renal function and unknown) hold nephrotoxic medications (Lisinopril).? (unknown) (no (unknown) (unknown) Code status: Full (units (unknown) date) code as discussed unknown) with the patient who identifies his son, (unknown) (no (unknown) (unknown) Consultants: (units (unknown) date) [facility] unknown) Surgery,? care and involvement in the (unknown) (no (unknown) (unknown) Continue carvedilol (unit s (unknown) date) 25 mg p.o. b.i.d., unknown) patient receives in 12.5 mg tablets (unknown) (no (unknown) (unknown) Continue home dose (units (unknown) date) of atorvastatin 40 mg unknown) p.o. at bedtime (unknown) (no (unknown) (unknown) Coronary artery (units (unknown) date) disease unknown) (unknown) (no (unknown) (unknown) Creatinine 2.18 H (units (unknown) date) unknown) (unknown) (no (unknown) (unknown) Critical Care time: (unit s (unknown) date) unknown) (unknown) (no (unknown) (unknown) : 1945 (units (unknown) date) Acct:[id number] unknown) (unknown) (no (unknown) (unknown) Deep Vein (units (unkn own) date) Thrombosis/Pulmonary unknown) Embolism Present on Admission: No (unknown) (no (unknown) (unknown) Diabetes (units (unkno wn) date) unknown) (unknown) (no (unknown) (unknown) Dispo: Unknown at (units (unknown) date) this time unknown) (unknown) (no (unknown) (unknown) David his surrogate (units (unknown) date) and POA. unknown) (unknown) (no (unknown) (unknown) Dyslipidemia (units (u nknown) date) unknown) (unknown) (no (unknown) (unknown) Eos # (Auto) 200 (units (unknown) date) unknown) (unknown) (no (unknown) (unknown) Eos % (Auto) 3.8 (units (unknown) date) unknown) (unknown) (no (unknown) (unknown) Estimated GFR 31 L (units (unknown) date) unknown) (unknown) (no (unknown) (unknown) Exam (units (unkno wn) date) unknown) (unknown) (no (unknown) (unknown) FEN: IV fluids: (units (unknown) date) saline lock, diet: unknown) carb controlled diet, labs: CBC, C/BMP, liver (unknown) (no (unknown) (unknown) Family History (units (unknown) date) (Reviewed 01/27/22 @ unknown) 07:53 by Tony Aceves MD) (unknown) (no (unknown) (unknown) GFR improved to 31 (units (unknown) date) today.? Renal unknown) function is improving. (unknown) (no (unknown) (unknown) Globulin 3.5 (units (u nknown) date) unknown) (unknown) (no (unknown) (unknown) Glucose 107 (units (un known) date) unknown) (unknown) (no (unknown) (unknown) Hct 24.2 L (units (unk nown) date) unknown) (unknown) (no (unknown) (unknown) He is currently (units (unknown) date) saline lock due to unknown) volume overload (unknown) (no (unknown) (unknown) He will receive his (unit s (unknown) date) home dose of Lantus unknown) 30 units b.i.d. Metformin remains on (unknown) (no (unknown) (unknown) Hgb 8.1 L (units (unkn own) date) unknown) (unknown) (no (unknown) (unknown) Hx of (units (unkno wn) date) cholecystectomy unknown) (unknown) (no (unknown) (unknown) Hypertension (units (u nknown) date) unknown) (unknown) (no (unknown) (unknown) I spent a total of (units (unknown) date) [] minutes of unknown) critical care time on this patient's care (unknown) (no (unknown) (unknown) In the ER, he (units ( unknown) date) received IV Lasix 80 unknown) mg in addition to his home oral dose of (unknown) (no (unknown) (unknown) Labs (units (unkno wn) date) unknown) (unknown) (no (unknown) (unknown) Labs: (units (unkno wn) date) unknown) (unknown) (no (unknown) (unknown) Low-dose (units (unkno wn) date) correctional scale unknown) insulin and adjust as needed (unknown) (no (unknown) (unknown) Lymph # (Auto) 600 L (uni ts (unknown) date) unknown) (unknown) (no (unknown) (unknown) Lymph % (Auto) 13.4 (unit s (unknown) date) L unknown) (unknown) (no (unknown) (unknown) MCH 26.1 (units (unkno wn) date) unknown) (unknown) (no (unknown) (unknown) MCHC 33.5 (units (unkn own) date) unknown) (unknown) (no (unknown) (unknown) MCV 77.8 L (units (unk nown) date) unknown) (unknown) (no (unknown) (unknown) Magnesium 1.4 L (units (unknown) date) unknown) (unknown) (no (unknown) (unknown) Medical History (units (unknown) date) (Reviewed 01/27/22 @ unknown) 07:53 by Tony Aceves MD) (unknown) (no (unknown) (unknown) Lajas # (Auto) 500 (units (unknown) date) unknown) (unknown) (no (unknown) (unknown) Lajas % (Auto) 10.4 (units (unknown) date) unknown) (unknown) (no (unknown) (unknown) Neut # (Auto) 3400 (units (unknown) date) unknown) (unknown) (no (unknown) (unknown) Neut % (Auto) 71.7 (units (unknown) date) unknown) (unknown) (no (unknown) (unknown) Objective (units (unkn own) date) unknown) (unknown) (no (unknown) (unknown) Orthopedic surgery (units (unknown) date) has been consulted unknown) and seen the patient. (unknown) (no (unknown) (unknown) Other Adopted (units ( unknown) date) unknown) (unknown) (no (unknown) (unknown) Oxygen Delivery (units (unknown) date) Method Room Air unknown) (unknown) (no (unknown) (unknown) Oxygen Flow Rate 0 (units (unknown) date) unknown) (unknown) (no (unknown) (unknown) Oxygen Flow Rate 0 (units (unknown) date) unknown) (unknown) (no (unknown) (unknown) PFSH (units (unkno wn) date) unknown) (unknown) (no (unknown) (unknown) Patient currently (units (unknown) date) being treated with unknown) vancomycin.? This is essentially (unknown) (no (unknown) (unknown) Patient is currently (uni ts (unknown) date) recovering from unknown) biventricular heart catheterization (unknown) (no (unknown) (unknown) Patient is? (units (un known) date) inpatient service due unknown) to the severity of disease, risks of further (unknown) (no (unknown) (unknown) Patient received 2 (units (unknown) date) units PRBC in the unknown) emergency department increasing his H+H (unknown) (no (unknown) (unknown) Patient was fluid (units (unknown) date) resuscitated in the unknown) emergency department 2 L (unknown) (no (unknown) (unknown) Patient's proBNP was (uni ts (unknown) date) almost 7200. Repeat unknown) tomorrow. (unknown) (no (unknown) (unknown) Patient's (units (unkn own) date) rivaroxaban, aspirin unknown) and clopidogrel are being held (unknown) (no (unknown) (unknown) Patient: (units (unkno wn) date) Osmel Baxter MR#: unknown) M000 (unknown) (no (unknown) (unknown) Plt Count 159 (units ( unknown) date) unknown) (unknown) (no (unknown) (unknown) Potassium 3.7 (units ( unknown) date) unknown) (unknown) (no (unknown) (unknown) Provider: (units (unkn own) date) Chary Ramirez MD unknown) (unknown) (no (unknown) (unknown) Pulse Oximetry 97 (units (unknown) date) unknown) (unknown) (no (unknown) (unknown) Pulse Rate 67 67 (units (unknown) date) unknown) (unknown) (no (unknown) (unknown) Quality (units (unkno wn) date) unknown) (unknown) (no (unknown) (unknown) RBC 3.11 L (units (unk nown) date) unknown) (unknown) (no (unknown) (unknown) RBC Morphology See (units (unknown) date) below unknown) (unknown) (no (unknown) (unknown) RDW 23.7 H (units (unk nown) date) unknown) (unknown) (no (unknown) (unknown) Respiratory Rate 16 (unit s (unknown) date) unknown) (unknown) (no (unknown) (unknown) Result Diagrams: (units (unknown) date) 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) (unknown) (no (unknown) (unknown) Signed By: (units (unk nown) date) unknown) (unknown) (no (unknown) (unknown) Sleep apnea (units (un known) date) unknown) (unknown) (no (unknown) (unknown) Smoking Status: (units (unknown) date) Former smoker unknown) (unknown) (no (unknown) (unknown) Social History (units (unknown) date) (Updated 09/25/18 @ unknown) 11:17 by Telma Dickey DO) (unknown) (no (unknown) (unknown) Sodium 134 L (units (u nknown) date) unknown) (unknown) (no (unknown) (unknown) Surgical History (units (unknown) date) (Reviewed 01/27/22 @ unknown) 07:53 by Tony Aceves MD) (unknown) (no (unknown) (unknown) Temperature 97.4 F L (uni ts (unknown) date) unknown) (unknown) (no (unknown) (unknown) Time Spent With (units (unknown) date) Patient unknown) (unknown) (no (unknown) (unknown) Total Bilirubin 1.9 (unit s (unknown) date) H unknown) (unknown) (no (unknown) (unknown) Total Protein 6.7 (units (unknown) date) unknown) (unknown) (no (unknown) (unknown) VTE (units (unkno wn) date) unknown) (unknown) (no (unknown) (unknown) VTE Prophylaxis: (units (unknown) date) Wells risk score unknown) 1.5.? 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 (unknown) (no (unknown) (unknown) [Embedded Image Not (unit s (unknown) date) Available] unknown) (unknown) (no (unknown) (unknown) admission (units (unkn own) date) unknown) (unknown) (no (unknown) (unknown) appears to be triple (uni ts (unknown) date) anti-platelet unknown) therapy, present on admission.? Causing (unknown) (no (unknown) (unknown) contraindicated in (units (unknown) date) the setting of active unknown) bleeding will do SCD? (unknown) (no (unknown) (unknown) daily.? (units (unkno wn) date) Hydrochlorothiazide unknown) is not been ordered.? Will add torsemide. (unknown) (no (unknown) (unknown) details: x 9 (uni ts (unknown) date) months unknown) (unknown) (no (unknown) (unknown) disease progression (unit s (unknown) date) and this stay is unknown) expected to exceed 2 midnights. (unknown) (no (unknown) (unknown) evaluate.? Consult (units (unknown) date) completed. unknown) (unknown) (no (unknown) (unknown) from 6.7-7.9 and (units (unknown) date) 20.8-24.5 unknown) respectively.? Today hemoglobin stable at 8.1.? This (unknown) (no (unknown) (unknown) hematoma left leg.? (unit s (unknown) date) With skin compromise unknown) over the hematoma will have wound care (unknown) (no (unknown) (unknown) hold due to renal (units (unknown) date) function. unknown) (unknown) (no (unknown) (unknown) household members: (units (unknown) date) children unknown) (unknown) (no (unknown) (unknown) hydrochlorothiazide (unit s (unknown) date) and torsemide.? Will unknown) increase daily furosemide to 40 mg (unknown) (no (unknown) (unknown) is stable. (units (unk nown) date) unknown) (unknown) (no (unknown) (unknown) marital status: (units (unknown) date) unknown) (unknown) (no (unknown) (unknown) patient?s care is (units (unknown) date) appreciated.? This unknown) has been completed. (unknown) (no (unknown) (unknown) prophylactic. (units ( unknown) date) unknown) (unknown) (no (unknown) (unknown) today; this time is (unit s (unknown) date) exclusive of unknown) procedural time. Result panel 65 (unknown) (no (unknown) (unknown) (no value) (units (unk nown) date) unknown) (unknown) (no (unknown) (unknown) Date of Service: (units (unknown) date) 01/27/22 unknown) (unknown) (no (unknown) (unknown) (no value) (units (unk nown) date) unknown) (unknown) (no (unknown) (unknown) - (units (unkno wn) date) unknown) (unknown) (no (unknown) (unknown) 01/28/22 05:25 (units (unknown) date) unknown) (unknown) (no (unknown) (unknown) [facility] [address] (uni ts (unknown) date) [address] unknown) [place] [id number] (unknown) (no (unknown) (unknown) Laboratory Results - (uni ts (unknown) date) last 24 hr unknown) (unknown) (no (unknown) (unknown) Progress Note (units ( unknown) date) unknown) (unknown) (no (unknown) (unknown) (no value) (units (unk nown) date) unknown) (unknown) (no (unknown) (unknown) 05:25 05:25 05:25 (units (unknown) date) unknown) (unknown) (no (unknown) (unknown) 01/28/22 01/28/22 (units (unknown) date) 01/28/22 unknown) (unknown) (no (unknown) (unknown) 01/28/22 (units (unkno wn) date) unknown) (unknown) (no (unknown) (unknown) enzymes, Mag, PT/INR (uni ts (unknown) date) unknown) (unknown) (no (unknown) (unknown) is Dr. Agrawal in (units (unknown) date) [place]. Will unknown) notify of admission. (unknown) (no (unknown) (unknown) (past 8 hours): (units (unknown) date) unknown) (unknown) (no (unknown) (unknown) 08:00 01/28/22 (units (unknown) date) unknown) (unknown) (no (unknown) (unknown) 08:54 (units (unkno wn) date) unknown) (unknown) (no (unknown) (unknown) 1. Acute blood loss (unit s (unknown) date) anemia likely unknown) secondary to over coagulation with what (unknown) (no (unknown) (unknown) 2. Acute kidney (units (unknown) date) injury likely unknown) secondary to blood loss anemia, present on (unknown) (no (unknown) (unknown) 3. Acute (units (unkno wn) date) decompensated heart unknown) failure with reduced ejection fraction, present on (unknown) (no (unknown) (unknown) [id number] (units (unkno wn) date) unknown) (unknown) (no (unknown) (unknown) 4. Probable left (units (unknown) date) knee cellulitis, unknown) acute, present on admission (unknown) (no (unknown) (unknown) 5. Coronary artery (units (unknown) date) disease, chronic unknown) (unknown) (no (unknown) (unknown) 6. Diabetes type 2, (unit s (unknown) date) appears to be well unknown) controlled (unknown) (no (unknown) (unknown) ?A1c is 6.5 (units (un known) date) unknown) (unknown) (no (unknown) (unknown) ALT 17 (units (unkno wn) date) unknown) (unknown) (no (unknown) (unknown) AST 22 (units (unkno wn) date) unknown) (unknown) (no (unknown) (unknown) Age/Sex: 76 / M (units (unknown) date) unknown) (unknown) (no (unknown) (unknown) Albumin 3.2 L (units ( unknown) date) unknown) (unknown) (no (unknown) (unknown) Albumin/Globulin (units (unknown) date) Ratio 0.9 L unknown) (unknown) (no (unknown) (unknown) Alkaline Phosphatase (uni ts (unknown) date) 133 H unknown) (unknown) (no (unknown) (unknown) Anisocytosis 3+ H (units (unknown) date) unknown) (unknown) (no (unknown) (unknown) Anticoagulated (units (unknown) date) unknown) (unknown) (no (unknown) (unknown) Assessment + Plan (units (unknown) date) unknown) (unknown) (no (unknown) (unknown) Assessment + Plan (units (unknown) date) narrative: unknown) (unknown) (no (unknown) (unknown) Atrial fibrillation (unit s (unknown) date) unknown) (unknown) (no (unknown) (unknown) BUN 53 H (units (unkno wn) date) unknown) (unknown) (no (unknown) (unknown) BUN/Creatinine Ratio (uni ts (unknown) date) 24.3 H unknown) (unknown) (no (unknown) (unknown) Baso # (Auto) 0 (units (unknown) date) unknown) (unknown) (no (unknown) (unknown) Baso % (Auto) 0.7 (units (unknown) date) unknown) (unknown) (no (unknown) (unknown) Blood Pressure (units (unknown) date) 111/47 L 111/47 L unknown) (unknown) (no (unknown) (unknown) C-Reactive Protein (units (unknown) date) 16.1 H unknown) (unknown) (no (unknown) (unknown) Calcium 8.3 L (units ( unknown) date) unknown) (unknown) (no (unknown) (unknown) Carb controlled diet (uni ts (unknown) date) with a.c. HS glucose unknown) checks (unknown) (no (unknown) (unknown) Carbon Dioxide 27 (units (unknown) date) unknown) (unknown) (no (unknown) (unknown) Chloride 99 (units (un known) date) unknown) (unknown) (no (unknown) (unknown) Closely monitor (units (unknown) date) renal function and unknown) hold nephrotoxic medications (Lisinopril).? (unknown) (no (unknown) (unknown) Code status: Full (units (unknown) date) code as discussed unknown) with the patient who identifies his son, (unknown) (no (unknown) (unknown) Consultants: (units (unknown) date) [facility] unknown) Surgery,? care and involvement in the (unknown) (no (unknown) (unknown) Continue carvedilol (unit s (unknown) date) 25 mg p.o. b.i.d., unknown) patient receives in 12.5 mg tablets (unknown) (no (unknown) (unknown) Continue home dose (units (unknown) date) of atorvastatin 40 mg unknown) p.o. at bedtime (unknown) (no (unknown) (unknown) Coronary artery (units (unknown) date) disease unknown) (unknown) (no (unknown) (unknown) Creatinine 2.18 H (units (unknown) date) unknown) (unknown) (no (unknown) (unknown) Critical Care time: (unit s (unknown) date) unknown) (unknown) (no (unknown) (unknown) : 1945 (units (unknown) date) Acct:[id number] unknown) (unknown) (no (unknown) (unknown) Deep Vein (units (unkn own) date) Thrombosis/Pulmonary unknown) Embolism Present on Admission: No (unknown) (no (unknown) (unknown) Diabetes (units (unkno wn) date) unknown) (unknown) (no (unknown) (unknown) Dispo: Unknown at (units (unknown) date) this time unknown) (unknown) (no (unknown) (unknown) David his surrogate (units (unknown) date) and POA. unknown) (unknown) (no (unknown) (unknown) Dyslipidemia (units (u nknown) date) unknown) (unknown) (no (unknown) (unknown) Eos # (Auto) 200 (units (unknown) date) unknown) (unknown) (no (unknown) (unknown) Eos % (Auto) 3.8 (units (unknown) date) unknown) (unknown) (no (unknown) (unknown) Estimated GFR 31 L (units (unknown) date) unknown) (unknown) (no (unknown) (unknown) Exam (units (unkno wn) date) unknown) (unknown) (no (unknown) (unknown) FEN: IV fluids: (units (unknown) date) saline lock, diet: unknown) carb controlled diet, labs: CBC, C/BMP, liver (unknown) (no (unknown) (unknown) Family History (units (unknown) date) (Reviewed 01/27/22 @ unknown) 07:53 by Tony Aceves MD) (unknown) (no (unknown) (unknown) GFR improved to 31 (units (unknown) date) today.? Renal unknown) function is improving. (unknown) (no (unknown) (unknown) Globulin 3.5 (units (u nknown) date) unknown) (unknown) (no (unknown) (unknown) Glucose 107 (units (un known) date) unknown) (unknown) (no (unknown) (unknown) Hct 24.2 L (units (unk nown) date) unknown) (unknown) (no (unknown) (unknown) He is currently (units (unknown) date) saline lock due to unknown) volume overload (unknown) (no (unknown) (unknown) He will receive his (unit s (unknown) date) home dose of Lantus unknown) 30 units b.i.d. Metformin remains on (unknown) (no (unknown) (unknown) Hgb 8.1 L (units (unkn own) date) unknown) (unknown) (no (unknown) (unknown) Hx of (units (unkno wn) date) cholecystectomy unknown) (unknown) (no (unknown) (unknown) Hypertension (units (u nknown) date) unknown) (unknown) (no (unknown) (unknown) I spent a total of (units (unknown) date) [] minutes of unknown) critical care time on this patient's care (unknown) (no (unknown) (unknown) In the ER, he (units ( unknown) date) received IV Lasix 80 unknown) mg in addition to his home oral dose of (unknown) (no (unknown) (unknown) Labs (units (unkno wn) date) unknown) (unknown) (no (unknown) (unknown) Labs: (units (unkno wn) date) unknown) (unknown) (no (unknown) (unknown) Low-dose (units (unkno wn) date) correctional scale unknown) insulin and adjust as needed (unknown) (no (unknown) (unknown) Lymph # (Auto) 600 L (uni ts (unknown) date) unknown) (unknown) (no (unknown) (unknown) Lymph % (Auto) 13.4 (unit s (unknown) date) L unknown) (unknown) (no (unknown) (unknown) MCH 26.1 (units (unkno wn) date) unknown) (unknown) (no (unknown) (unknown) MCHC 33.5 (units (unkn own) date) unknown) (unknown) (no (unknown) (unknown) MCV 77.8 L (units (unk nown) date) unknown) (unknown) (no (unknown) (unknown) Magnesium 1.4 L (units (unknown) date) unknown) (unknown) (no (unknown) (unknown) Medical History (units (unknown) date) (Reviewed 01/27/22 @ unknown) 07:53 by Tony Aceves MD) (unknown) (no (unknown) (unknown) Lajas # (Auto) 500 (units (unknown) date) unknown) (unknown) (no (unknown) (unknown) Lajas % (Auto) 10.4 (units (unknown) date) unknown) (unknown) (no (unknown) (unknown) Neut # (Auto) 3400 (units (unknown) date) unknown) (unknown) (no (unknown) (unknown) Neut % (Auto) 71.7 (units (unknown) date) unknown) (unknown) (no (unknown) (unknown) Objective (units (unkn own) date) unknown) (unknown) (no (unknown) (unknown) Orthopedic surgery (units (unknown) date) has been consulted unknown) and seen the patient. (unknown) (no (unknown) (unknown) Other Adopted (units ( unknown) date) unknown) (unknown) (no (unknown) (unknown) Oxygen Delivery (units (unknown) date) Method Room Air unknown) (unknown) (no (unknown) (unknown) Oxygen Flow Rate 0 (units (unknown) date) unknown) (unknown) (no (unknown) (unknown) Oxygen Flow Rate 0 (units (unknown) date) unknown) (unknown) (no (unknown) (unknown) PFSH (units (unkno wn) date) unknown) (unknown) (no (unknown) (unknown) Patient currently (units (unknown) date) being treated with unknown) vancomycin.? This is essentially (unknown) (no (unknown) (unknown) Patient is currently (uni ts (unknown) date) recovering from unknown) biventricular heart catheterization (unknown) (no (unknown) (unknown) Patient is? (units (un known) date) inpatient service due unknown) to the severity of disease, risks of further (unknown) (no (unknown) (unknown) Patient received 2 (units (unknown) date) units PRBC in the unknown) emergency department increasing his H+H (unknown) (no (unknown) (unknown) Patient was fluid (units (unknown) date) resuscitated in the unknown) emergency department 2 L (unknown) (no (unknown) (unknown) Patient's proBNP was (uni ts (unknown) date) almost 7200. Repeat unknown) tomorrow. (unknown) (no (unknown) (unknown) Patient's (units (unkn own) date) rivaroxaban, aspirin unknown) and clopidogrel are being held (unknown) (no (unknown) (unknown) Patient: (units (unkno wn) date) Osmel Baxter MR#: unknown) M000 (unknown) (no (unknown) (unknown) Plt Count 159 (units ( unknown) date) unknown) (unknown) (no (unknown) (unknown) Potassium 3.7 (units ( unknown) date) unknown) (unknown) (no (unknown) (unknown) Provider: (units (unkn own) date) Chary Ramirez MD unknown) (unknown) (no (unknown) (unknown) Pulse Oximetry 97 (units (unknown) date) unknown) (unknown) (no (unknown) (unknown) Pulse Rate 67 67 (units (unknown) date) unknown) (unknown) (no (unknown) (unknown) Quality (units (unkno wn) date) unknown) (unknown) (no (unknown) (unknown) RBC 3.11 L (units (unk nown) date) unknown) (unknown) (no (unknown) (unknown) RBC Morphology See (units (unknown) date) below unknown) (unknown) (no (unknown) (unknown) RDW 23.7 H (units (unk nown) date) unknown) (unknown) (no (unknown) (unknown) Respiratory Rate 16 (unit s (unknown) date) unknown) (unknown) (no (unknown) (unknown) Result Diagrams: (units (unknown) date) 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) (unknown) (no (unknown) (unknown) Signed By: (units (unk nown) date) unknown) (unknown) (no (unknown) (unknown) Sleep apnea (units (un known) date) unknown) (unknown) (no (unknown) (unknown) Smoking Status: (units (unknown) date) Former smoker unknown) (unknown) (no (unknown) (unknown) Social History (units (unknown) date) (Updated 09/25/18 @ unknown) 11:17 by Telma Dickey DO) (unknown) (no (unknown) (unknown) Sodium 134 L (units (u nknown) date) unknown) (unknown) (no (unknown) (unknown) Surgical History (units (unknown) date) (Reviewed 01/27/22 @ unknown) 07:53 by Tony Aceves MD) (unknown) (no (unknown) (unknown) Temperature 97.4 F L (uni ts (unknown) date) unknown) (unknown) (no (unknown) (unknown) Time Spent With (units (unknown) date) Patient unknown) (unknown) (no (unknown) (unknown) Total Bilirubin 1.9 (unit s (unknown) date) H unknown) (unknown) (no (unknown) (unknown) Total Protein 6.7 (units (unknown) date) unknown) (unknown) (no (unknown) (unknown) VTE (units (unkno wn) date) unknown) (unknown) (no (unknown) (unknown) VTE Prophylaxis: (units (unknown) date) Wells risk score unknown) 1.5.? 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 Has (unknown) (no (unknown) (unknown) [Embedded Image Not (unit s (unknown) date) Available] unknown) (unknown) (no (unknown) (unknown) admission (units (unkn own) date) unknown) (unknown) (no (unknown) (unknown) appears to be triple (uni ts (unknown) date) anti-platelet unknown) therapy, present on admission.? Causing (unknown) (no (unknown) (unknown) contraindicated in (units (unknown) date) the setting of active unknown) bleeding will do SCD? (unknown) (no (unknown) (unknown) daily.? (units (unkno wn) date) Hydrochlorothiazide unknown) is not been ordered.? Will add torsemide. (unknown) (no (unknown) (unknown) details: x 9 (uni ts (unknown) date) months unknown) (unknown) (no (unknown) (unknown) disease progression (unit s (unknown) date) and this stay is unknown) expected to exceed 2 midnights. (unknown) (no (unknown) (unknown) evaluate.? Consult (units (unknown) date) pending. unknown) (unknown) (no (unknown) (unknown) from 6.7-7.9 and (units (unknown) date) 20.8-24.5 unknown) respectively.? Today hemoglobin stable at 8.1.? This (unknown) (no (unknown) (unknown) hematoma left leg.? (unit s (unknown) date) With skin compromise unknown) over the hematoma will have wound care (unknown) (no (unknown) (unknown) hold due to renal (units (unknown) date) function. unknown) (unknown) (no (unknown) (unknown) household members: (units (unknown) date) children unknown) (unknown) (no (unknown) (unknown) hydrochlorothiazide (unit s (unknown) date) and torsemide.? Will unknown) increase daily furosemide to 40 mg (unknown) (no (unknown) (unknown) is stable. (units (unk nown) date) unknown) (unknown) (no (unknown) (unknown) marital status: (units (unknown) date) unknown) (unknown) (no (unknown) (unknown) not been evaluated (units (unknown) date) yet. unknown) (unknown) (no (unknown) (unknown) patient?s care is (units (unknown) date) appreciated.? This unknown) has been completed. (unknown) (no (unknown) (unknown) prophylactic. (units ( unknown) date) unknown) (unknown) (no (unknown) (unknown) today; this time is (unit s (unknown) date) exclusive of unknown) procedural time. Result panel 66 (unknown) (no (unknown) (unknown) (no value) (units (unk nown) date) unknown) (unknown) (no (unknown) (unknown) Date of Service: (units (unknown) date) 01/27/22 unknown) (unknown) (no (unknown) (unknown) (no value) (units (unk nown) date) unknown) (unknown) (no (unknown) (unknown) - (units (unkno wn) date) unknown) (unknown) (no (unknown) (unknown) 01/28/22 05:25 (units (unknown) date) unknown) (unknown) (no (unknown) (unknown) [facility] [id number]uni ts (unknown) date) [address] unknown) [place] [address] (unknown) (no (unknown) (unknown) Laboratory Results - (uni ts (unknown) date) last 24 hr unknown) (unknown) (no (unknown) (unknown) Progress Note (units ( unknown) date) unknown) (unknown) (no (unknown) (unknown) (no value) (units (unk nown) date) unknown) (unknown) (no (unknown) (unknown) 05:25 05:25 05:25 (units (unknown) date) unknown) (unknown) (no (unknown) (unknown) 01/28/22 01/28/22 (units (unknown) date) 01/28/22 unknown) (unknown) (no (unknown) (unknown) 01/28/22 (units (unkno wn) date) unknown) (unknown) (no (unknown) (unknown) enzymes, Mag, PT/INR (uni ts (unknown) date) unknown) (unknown) (no (unknown) (unknown) is Dr. Agrawal in (units (unknown) date) [place]. Will unknown) notify of admission, message left at his (unknown) (no (unknown) (unknown) re-initiation of (units (unknown) date) rivaroxaban and unknown) aspirin and clopidogrel prior to discharge. (unknown) (no (unknown) (unknown) (past 8 hours): (units (unknown) date) unknown) (unknown) (no (unknown) (unknown) 08:00 01/28/22 (units (unknown) date) unknown) (unknown) (no (unknown) (unknown) 08:54 (units (unkno wn) date) unknown) (unknown) (no (unknown) (unknown) 1. Acute blood loss (unit s (unknown) date) anemia likely unknown) secondary to over coagulation with what (unknown) (no (unknown) (unknown) 2. Acute kidney (units (unknown) date) injury likely unknown) secondary to blood loss anemia, present on (unknown) (no (unknown) (unknown) 3. Acute (units (unkno wn) date) decompensated heart unknown) failure with reduced ejection fraction, present on (unknown) (no (unknown) (unknown) [id number] (units (unkno wn) date) unknown) (unknown) (no (unknown) (unknown) 4. Probable left (units (unknown) date) knee cellulitis, unknown) acute, present on admission (unknown) (no (unknown) (unknown) 5. Coronary artery (units (unknown) date) disease, chronic unknown) (unknown) (no (unknown) (unknown) 6. Diabetes type 2, (unit s (unknown) date) appears to be well unknown) controlled (unknown) (no (unknown) (unknown) 7. Mobilization. (units (unknown) date) Beginning to mobilize unknown) with physical therapy. Continue with (unknown) (no (unknown) (unknown) ?A1c is 6.5 (units (un known) date) unknown) (unknown) (no (unknown) (unknown) ALT 17 (units (unkno wn) date) unknown) (unknown) (no (unknown) (unknown) AST 22 (units (unkno wn) date) unknown) (unknown) (no (unknown) (unknown) Age/Sex: 76 / M (units (unknown) date) unknown) (unknown) (no (unknown) (unknown) Albumin 3.2 L (units ( unknown) date) unknown) (unknown) (no (unknown) (unknown) Albumin/Globulin (units (unknown) date) Ratio 0.9 L unknown) (unknown) (no (unknown) (unknown) Alkaline Phosphatase (uni ts (unknown) date) 133 H unknown) (unknown) (no (unknown) (unknown) Anisocytosis 3+ H (units (unknown) date) unknown) (unknown) (no (unknown) (unknown) Anticoagulated (units (unknown) date) unknown) (unknown) (no (unknown) (unknown) Assessment + Plan (units (unknown) date) unknown) (unknown) (no (unknown) (unknown) Assessment + Plan (units (unknown) date) narrative: unknown) (unknown) (no (unknown) (unknown) Atrial fibrillation (unit s (unknown) date) unknown) (unknown) (no (unknown) (unknown) BUN 53 H (units (unkno wn) date) unknown) (unknown) (no (unknown) (unknown) BUN/Creatinine Ratio (uni ts (unknown) date) 24.3 H unknown) (unknown) (no (unknown) (unknown) Baso # (Auto) 0 (units (unknown) date) unknown) (unknown) (no (unknown) (unknown) Baso % (Auto) 0.7 (units (unknown) date) unknown) (unknown) (no (unknown) (unknown) Blood Pressure (units (unknown) date) 111/47 L 111/47 L unknown) (unknown) (no (unknown) (unknown) C-Reactive Protein (units (unknown) date) 16.1 H unknown) (unknown) (no (unknown) (unknown) Calcium 8.3 L (units ( unknown) date) unknown) (unknown) (no (unknown) (unknown) Carb controlled diet (uni ts (unknown) date) with a.c. HS glucose unknown) checks (unknown) (no (unknown) (unknown) Carbon Dioxide 27 (units (unknown) date) unknown) (unknown) (no (unknown) (unknown) Chloride 99 (units (un known) date) unknown) (unknown) (no (unknown) (unknown) Closely monitor (units (unknown) date) renal function and unknown) hold nephrotoxic medications (Lisinopril).? (unknown) (no (unknown) (unknown) Code status: Full (units (unknown) date) code as discussed unknown) with the patient who identifies his son, (unknown) (no (unknown) (unknown) Consultants: (units (unknown) date) [facility] unknown) Surgery,? care and involvement in the (unknown) (no (unknown) (unknown) Continue carvedilol (unit s (unknown) date) 25 mg p.o. b.i.d., unknown) patient receives in 12.5 mg tablets (unknown) (no (unknown) (unknown) Continue home dose (units (unknown) date) of atorvastatin 40 mg unknown) p.o. at bedtime (unknown) (no (unknown) (unknown) Coronary artery (units (unknown) date) disease unknown) (unknown) (no (unknown) (unknown) Creatinine 2.18 H (units (unknown) date) unknown) (unknown) (no (unknown) (unknown) Critical Care time: (unit s (unknown) date) unknown) (unknown) (no (unknown) (unknown) : 1945 (units (unknown) date) Acct:[id number] unknown) (unknown) (no (unknown) (unknown) Deep Vein (units (unkn own) date) Thrombosis/Pulmonary unknown) Embolism Present on Admission: No (unknown) (no (unknown) (unknown) Diabetes (units (unkno wn) date) unknown) (unknown) (no (unknown) (unknown) Dispo: Unknown at (units (unknown) date) this time. Need wound unknown) care plan, stability of hemoglobin with (unknown) (no (unknown) (unknown) David his surrogate (units (unknown) date) and POA. unknown) (unknown) (no (unknown) (unknown) Dyslipidemia (units (u nknown) date) unknown) (unknown) (no (unknown) (unknown) Eos # (Auto) 200 (units (unknown) date) unknown) (unknown) (no (unknown) (unknown) Eos % (Auto) 3.8 (units (unknown) date) unknown) (unknown) (no (unknown) (unknown) Estimated GFR 31 L (units (unknown) date) unknown) (unknown) (no (unknown) (unknown) Exam (units (unkno wn) date) unknown) (unknown) (no (unknown) (unknown) FEN: IV fluids: (units (unknown) date) saline lock, diet: unknown) carb controlled diet, labs: CBC, C/BMP, liver (unknown) (no (unknown) (unknown) Family History (units (unknown) date) (Reviewed 01/27/22 @ unknown) 07:53 by Tony Aceves MD) (unknown) (no (unknown) (unknown) GFR improved to 31 (units (unknown) date) today.? Renal unknown) function is improving. (unknown) (no (unknown) (unknown) Globulin 3.5 (units (u nknown) date) unknown) (unknown) (no (unknown) (unknown) Glucose 107 (units (un known) date) unknown) (unknown) (no (unknown) (unknown) Hct 24.2 L (units (unk nown) date) unknown) (unknown) (no (unknown) (unknown) He is currently (units (unknown) date) saline lock due to unknown) volume overload (unknown) (no (unknown) (unknown) He will receive his (unit s (unknown) date) home dose of Lantus unknown) 30 units b.i.d. Metformin remains on (unknown) (no (unknown) (unknown) Hgb 8.1 L (units (unkn own) date) unknown) (unknown) (no (unknown) (unknown) Hx of (units (unkno wn) date) cholecystectomy unknown) (unknown) (no (unknown) (unknown) Hypertension (units (u nknown) date) unknown) (unknown) (no (unknown) (unknown) I spent a total of (units (unknown) date) [] minutes of unknown) critical care time on this patient's care (unknown) (no (unknown) (unknown) In the ER, he (units ( unknown) date) received IV Lasix 80 unknown) mg in addition to his home oral dose of (unknown) (no (unknown) (unknown) Labs (units (unkno wn) date) unknown) (unknown) (no (unknown) (unknown) Labs: (units (unkno wn) date) unknown) (unknown) (no (unknown) (unknown) Low-dose (units (unkno wn) date) correctional scale unknown) insulin and adjust as needed (unknown) (no (unknown) (unknown) Lymph # (Auto) 600 L (uni ts (unknown) date) unknown) (unknown) (no (unknown) (unknown) Lymph % (Auto) 13.4 (unit s (unknown) date) L unknown) (unknown) (no (unknown) (unknown) MCH 26.1 (units (unkno wn) date) unknown) (unknown) (no (unknown) (unknown) MCHC 33.5 (units (unkn own) date) unknown) (unknown) (no (unknown) (unknown) MCV 77.8 L (units (unk nown) date) unknown) (unknown) (no (unknown) (unknown) Magnesium 1.4 L (units (unknown) date) unknown) (unknown) (no (unknown) (unknown) Medical History (units (unknown) date) (Reviewed 01/27/22 @ unknown) 07:53 by Tony Aceves MD) (unknown) (no (unknown) (unknown) Lajas # (Auto) 500 (units (unknown) date) unknown) (unknown) (no (unknown) (unknown) Lajas % (Auto) 10.4 (units (unknown) date) unknown) (unknown) (no (unknown) (unknown) Neut # (Auto) 3400 (units (unknown) date) unknown) (unknown) (no (unknown) (unknown) Neut % (Auto) 71.7 (units (unknown) date) unknown) (unknown) (no (unknown) (unknown) Objective (units (unkn own) date) unknown) (unknown) (no (unknown) (unknown) Orthopedic surgery (units (unknown) date) has been consulted unknown) and seen the patient. (unknown) (no (unknown) (unknown) Other Adopted (units ( unknown) date) unknown) (unknown) (no (unknown) (unknown) Oxygen Delivery (units (unknown) date) Method Room Air unknown) (unknown) (no (unknown) (unknown) Oxygen Flow Rate 0 (units (unknown) date) unknown) (unknown) (no (unknown) (unknown) Oxygen Flow Rate 0 (units (unknown) date) unknown) (unknown) (no (unknown) (unknown) PFSH (units (unkno wn) date) unknown) (unknown) (no (unknown) (unknown) Patient currently (units (unknown) date) being treated with unknown) vancomycin.? This is essentially (unknown) (no (unknown) (unknown) Patient is currently (uni ts (unknown) date) recovering from unknown) biventricular heart catheterization (unknown) (no (unknown) (unknown) Patient is? (units (un known) date) inpatient service due unknown) to the severity of disease, risks of further (unknown) (no (unknown) (unknown) Patient received 2 (units (unknown) date) units PRBC in the unknown) emergency department increasing his H+H (unknown) (no (unknown) (unknown) Patient was fluid (units (unknown) date) resuscitated in the unknown) emergency department 2 L (unknown) (no (unknown) (unknown) Patient's proBNP was (uni ts (unknown) date) almost 7200. Repeat unknown) tomorrow. (unknown) (no (unknown) (unknown) Patient's (units (unkn own) date) rivaroxaban, aspirin unknown) and clopidogrel are being held (unknown) (no (unknown) (unknown) Patient: (units (unkno wn) date) Osmel Baxter MR#: unknown) M000 (unknown) (no (unknown) (unknown) Plt Count 159 (units ( unknown) date) unknown) (unknown) (no (unknown) (unknown) Potassium 3.7 (units ( unknown) date) unknown) (unknown) (no (unknown) (unknown) Provider: (units (unkn own) date) Chary Ramirez MD unknown) (unknown) (no (unknown) (unknown) Pulse Oximetry 97 (units (unknown) date) unknown) (unknown) (no (unknown) (unknown) Pulse Rate 67 67 (units (unknown) date) unknown) (unknown) (no (unknown) (unknown) Quality (units (unkno wn) date) unknown) (unknown) (no (unknown) (unknown) RBC 3.11 L (units (unk nown) date) unknown) (unknown) (no (unknown) (unknown) RBC Morphology See (units (unknown) date) below unknown) (unknown) (no (unknown) (unknown) RDW 23.7 H (units (unk nown) date) unknown) (unknown) (no (unknown) (unknown) Respiratory Rate 16 (unit s (unknown) date) unknown) (unknown) (no (unknown) (unknown) Result Diagrams: (units (unknown) date) 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) (unknown) (no (unknown) (unknown) Signed By: (units (unk nown) date) unknown) (unknown) (no (unknown) (unknown) Sleep apnea (units (un known) date) unknown) (unknown) (no (unknown) (unknown) Smoking Status: (units (unknown) date) Former smoker unknown) (unknown) (no (unknown) (unknown) Social History (units (unknown) date) (Updated 09/25/18 @ unknown) 11:17 by Telma Dickey DO) (unknown) (no (unknown) (unknown) Sodium 134 L (units (u nknown) date) unknown) (unknown) (no (unknown) (unknown) Surgical History (units (unknown) date) (Reviewed 01/27/22 @ unknown) 07:53 by Tony Aceves MD) (unknown) (no (unknown) (unknown) Temperature 97.4 F L (uni ts (unknown) date) unknown) (unknown) (no (unknown) (unknown) Time Spent With (units (unknown) date) Patient unknown) (unknown) (no (unknown) (unknown) Total Bilirubin 1.9 (unit s (unknown) date) H unknown) (unknown) (no (unknown) (unknown) Total Protein 6.7 (units (unknown) date) unknown) (unknown) (no (unknown) (unknown) VTE (units (unkno wn) date) unknown) (unknown) (no (unknown) (unknown) VTE Prophylaxis: (units (unknown) date) Wells risk score unknown) 1.5.? 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 Has (unknown) (no (unknown) (unknown) [Embedded Image Not (unit s (unknown) date) Available] unknown) (unknown) (no (unknown) (unknown) admission (units (unkn own) date) unknown) (unknown) (no (unknown) (unknown) and clopidogrel. (units (unknown) date) unknown) (unknown) (no (unknown) (unknown) appears to be triple (uni ts (unknown) date) anti-platelet unknown) therapy, present on admission.? Causing (unknown) (no (unknown) (unknown) contraindicated in (units (unknown) date) the setting of active unknown) bleeding will do SCD? (unknown) (no (unknown) (unknown) daily.? (units (unkno wn) date) Hydrochlorothiazide unknown) is not been ordered.? Will add torsemide. (unknown) (no (unknown) (unknown) details: x 9 (uni ts (unknown) date) months unknown) (unknown) (no (unknown) (unknown) disease progression (unit s (unknown) date) and this stay is unknown) expected to exceed 2 midnights. (unknown) (no (unknown) (unknown) evaluate.? Consult (units (unknown) date) pending. unknown) (unknown) (no (unknown) (unknown) from 6.7-7.9 and (units (unknown) date) 20.8-24.5 unknown) respectively.? Today hemoglobin stable at 8.1.? This (unknown) (no (unknown) (unknown) hematoma left leg.? (unit s (unknown) date) With skin compromise unknown) over the hematoma will have wound care (unknown) (no (unknown) (unknown) hold due to renal (units (unknown) date) function. unknown) (unknown) (no (unknown) (unknown) household members: (units (unknown) date) children unknown) (unknown) (no (unknown) (unknown) hydrochlorothiazide (unit s (unknown) date) and torsemide.? Will unknown) increase daily furosemide to 40 mg (unknown) (no (unknown) (unknown) is stable. If (units ( unknown) date) remains consistently unknown) stable can reinitiate rivaroxaban, aspirin (unknown) (no (unknown) (unknown) marital status: (units (unknown) date) unknown) (unknown) (no (unknown) (unknown) not been evaluated (units (unknown) date) yet. Would be best to unknown) have consult and treatment plan prior (unknown) (no (unknown) (unknown) office. (units (unkno wn) date) unknown) (unknown) (no (unknown) (unknown) patient?s care is (units (unknown) date) appreciated.? This unknown) has been completed. (unknown) (no (unknown) (unknown) prophylactic. (units ( unknown) date) unknown) (unknown) (no (unknown) (unknown) to discharge. Needed (uni ts (unknown) date) plan for care. unknown) (unknown) (no (unknown) (unknown) today; this time is (unit s (unknown) date) exclusive of unknown) procedural time. (unknown) (no (unknown) (unknown) treatment. (units (unk nown) date) unknown) Result panel 67 (unknown) (no (unknown) (unknown) (no value) (units (unk nown) date) unknown) (unknown) (no (unknown) (unknown) Date of Service: (units (unknown) date) 01/27/22 unknown) (unknown) (no (unknown) (unknown) (no value) (units (unk nown) date) unknown) (unknown) (no (unknown) (unknown) - (units (unkno wn) date) unknown) (unknown) (no (unknown) (unknown) 01/28/22 05:25 (units (unknown) date) unknown) (unknown) (no (unknown) (unknown) 01/28/22 1137 (units ( unknown) date) unknown) (unknown) (no (unknown) (unknown) [facility] [address] (uni ts (unknown) date) [address] unknown) [place] [address] (unknown) (no (unknown) (unknown) Laboratory Results - (uni ts (unknown) date) last 24 hr unknown) (unknown) (no (unknown) (unknown) Progress Note (units ( unknown) date) unknown) (unknown) (no (unknown) (unknown) (no value) (units (unk nown) date) unknown) (unknown) (no (unknown) (unknown) 05:25 05:25 05:25 (units (unknown) date) unknown) (unknown) (no (unknown) (unknown) 01/28/22 01/28/22 (units (unknown) date) 01/28/22 unknown) (unknown) (no (unknown) (unknown) 01/28/22 (units (unkno wn) date) unknown) (unknown) (no (unknown) (unknown) enzymes, Mag, PT/INR (uni ts (unknown) date) unknown) (unknown) (no (unknown) (unknown) is Dr. Agrawal in (units (unknown) date) [place]. Will unknown) notify of admission, message left at his o (unknown) (no (unknown) (unknown) re-initiation of (units (unknown) date) rivaroxaban and unknown) aspirin and clopidogrel prior to discharge. (unknown) (no (unknown) (unknown) (past 8 hours): (units (unknown) date) unknown) (unknown) (no (unknown) (unknown) 08:00 01/28/22 (units (unknown) date) unknown) (unknown) (no (unknown) (unknown) 08:54 (units (unkno wn) date) unknown) (unknown) (no (unknown) (unknown) 1. Acute blood loss (unit s (unknown) date) anemia likely unknown) secondary to over coagulation with what (unknown) (no (unknown) (unknown) 2. Acute kidney (units (unknown) date) injury likely unknown) secondary to blood loss anemia, present on (unknown) (no (unknown) (unknown) 3. Acute (units (unkno wn) date) decompensated heart unknown) failure with reduced ejection fraction, present on (unknown) (no (unknown) (unknown) [id number] (units (unkno wn) date) unknown) (unknown) (no (unknown) (unknown) 4. Probable left (units (unknown) date) knee cellulitis, unknown) acute, present on admission (unknown) (no (unknown) (unknown) 5. Coronary artery (units (unknown) date) disease, chronic unknown) (unknown) (no (unknown) (unknown) 6. Diabetes type 2, (unit s (unknown) date) appears to be well unknown) controlled (unknown) (no (unknown) (unknown) 7. Mobilization. (units (unknown) date) Beginning to mobilize unknown) with physical therapy. Continue with (unknown) (no (unknown) (unknown) ?A1c is 6.5 (units (un known) date) unknown) (unknown) (no (unknown) (unknown) ALT 17 (units (unkno wn) date) unknown) (unknown) (no (unknown) (unknown) AST 22 (units (unkno wn) date) unknown) (unknown) (no (unknown) (unknown) Age/Sex: 76 / M (units (unknown) date) unknown) (unknown) (no (unknown) (unknown) Albumin 3.2 L (units ( unknown) date) unknown) (unknown) (no (unknown) (unknown) Albumin/Globulin (units (unknown) date) Ratio 0.9 L unknown) (unknown) (no (unknown) (unknown) Alkaline Phosphatase (uni ts (unknown) date) 133 H unknown) (unknown) (no (unknown) (unknown) Anisocytosis 3+ H (units (unknown) date) unknown) (unknown) (no (unknown) (unknown) Anticoagulated (units (unknown) date) unknown) (unknown) (no (unknown) (unknown) Assessment + Plan (units (unknown) date) unknown) (unknown) (no (unknown) (unknown) Assessment + Plan (units (unknown) date) narrative: unknown) (unknown) (no (unknown) (unknown) Atrial fibrillation (unit s (unknown) date) unknown) (unknown) (no (unknown) (unknown) BUN 53 H (units (unkno wn) date) unknown) (unknown) (no (unknown) (unknown) BUN/Creatinine Ratio (uni ts (unknown) date) 24.3 H unknown) (unknown) (no (unknown) (unknown) Baso # (Auto) 0 (units (unknown) date) unknown) (unknown) (no (unknown) (unknown) Baso % (Auto) 0.7 (units (unknown) date) unknown) (unknown) (no (unknown) (unknown) Blood Pressure (units (unknown) date) 111/47 L 111/47 L unknown) (unknown) (no (unknown) (unknown) C-Reactive Protein (units (unknown) date) 16.1 H unknown) (unknown) (no (unknown) (unknown) Calcium 8.3 L (units ( unknown) date) unknown) (unknown) (no (unknown) (unknown) Carb controlled diet (uni ts (unknown) date) with a.c. HS glucose unknown) checks (unknown) (no (unknown) (unknown) Carbon Dioxide 27 (units (unknown) date) unknown) (unknown) (no (unknown) (unknown) Cardiovascular: 06/13 (unit s (unknown) date) systolic murmur. unknown) S1-S2. Peripheral pulses equal (unknown) (no (unknown) (unknown) Chloride 99 (units (un known) date) unknown) (unknown) (no (unknown) (unknown) Closely monitor (units (unknown) date) renal function and unknown) hold nephrotoxic medications (Lisinopril).? (unknown) (no (unknown) (unknown) Code status: Full (units (unknown) date) code as discussed unknown) with the patient who identifies his son, (unknown) (no (unknown) (unknown) Consultants: (units (unknown) date) [facility] unknown) Surgery,? care and involvement in the (unknown) (no (unknown) (unknown) Continue carvedilol (unit s (unknown) date) 25 mg p.o. b.i.d., unknown) patient receives in 12.5 mg tablets (unknown) (no (unknown) (unknown) Continue home dose (units (unknown) date) of atorvastatin 40 mg unknown) p.o. at bedtime (unknown) (no (unknown) (unknown) Coronary artery (units (unknown) date) disease unknown) (unknown) (no (unknown) (unknown) Creatinine 2.18 H (units (unknown) date) unknown) (unknown) (no (unknown) (unknown) Critical Care time: (unit s (unknown) date) unknown) (unknown) (no (unknown) (unknown) : 1945 (units (unknown) date) Acct:[id number] unknown) (unknown) (no (unknown) (unknown) Date Patient Seen: (units (unknown) date) 01/28/22 unknown) (unknown) (no (unknown) (unknown) Deep Vein (units (unkn own) date) Thrombosis/Pulmonary unknown) Embolism Present on Admission: No (unknown) (no (unknown) (unknown) Diabetes (units (unkno wn) date) unknown) (unknown) (no (unknown) (unknown) Dispo: Unknown at (units (unknown) date) this time. Need wound unknown) care plan, stability of hemoglobin with (unknown) (no (unknown) (unknown) Daivd his surrogate (units (unknown) date) and POA. unknown) (unknown) (no (unknown) (unknown) Dyslipidemia (units (u nknown) date) unknown) (unknown) (no (unknown) (unknown) Eos # (Auto) 200 (units (unknown) date) unknown) (unknown) (no (unknown) (unknown) Eos % (Auto) 3.8 (units (unknown) date) unknown) (unknown) (no (unknown) (unknown) Estimated GFR 31 L (units (unknown) date) unknown) (unknown) (no (unknown) (unknown) Exam (units (unkno wn) date) unknown) (unknown) (no (unknown) (unknown) Exam Narrative: (units (unknown) date) unknown) (unknown) (no (unknown) (unknown) FEN: IV fluids: (units (unknown) date) saline lock, diet: unknown) carb controlled diet, labs: CBC, C/BMP, liver (unknown) (no (unknown) (unknown) Family History (units (unknown) date) (Reviewed 01/27/22 @ unknown) 07:53 by Tony Aceves MD) (unknown) (no (unknown) (unknown) Fatigued from (units ( unknown) date) physical therapy unknown) earlier today. In left knee and left foot. No (unknown) (no (unknown) (unknown) GFR improved to 31 (units (unknown) date) today.? Renal unknown) function is improving. Follow labs. (unknown) (no (unknown) (unknown) Gastrointestinal: (units (unknown) date) Bowel sounds normal. unknown) Abdomen soft. Nontender. (unknown) (no (unknown) (unknown) Globulin 3.5 (units (u nknown) date) unknown) (unknown) (no (unknown) (unknown) Glucose 107 (units (un known) date) unknown) (unknown) (no (unknown) (unknown) HEENT: Pupils equal (unit s (unknown) date) reaction to light. unknown) Extraocular movements normal. Neck is (unknown) (no (unknown) (unknown) Hct 24.2 L (units (unk nown) date) unknown) (unknown) (no (unknown) (unknown) He is currently (units (unknown) date) saline lock due to unknown) volume overload (unknown) (no (unknown) (unknown) He will receive his (unit s (unknown) date) home dose of Lantus unknown) 30 units b.i.d. Metformin remains on (unknown) (no (unknown) (unknown) Hgb 8.1 L (units (unkn own) date) unknown) (unknown) (no (unknown) (unknown) Hx of (units (unkno wn) date) cholecystectomy unknown) (unknown) (no (unknown) (unknown) Hypertension (units (u nknown) date) unknown) (unknown) (no (unknown) (unknown) I spent a total of (units (unknown) date) [] minutes of unknown) critical care time on this patient's care (unknown) (no (unknown) (unknown) In the ER, he (units ( unknown) date) received IV Lasix 80 unknown) mg in addition to his home oral dose of (unknown) (no (unknown) (unknown) Interval history: (units (unknown) date) unknown) (unknown) (no (unknown) (unknown) Labs (units (unkno wn) date) unknown) (unknown) (no (unknown) (unknown) Labs: (units (unkno wn) date) unknown) (unknown) (no (unknown) (unknown) Low-dose (units (unkno wn) date) correctional scale unknown) insulin and adjust as needed (unknown) (no (unknown) (unknown) Lymph # (Auto) 600 L (uni ts (unknown) date) unknown) (unknown) (no (unknown) (unknown) Lymph % (Auto) 13.4 (unit s (unknown) date) L unknown) (unknown) (no (unknown) (unknown) MCH 26.1 (units (unkno wn) date) unknown) (unknown) (no (unknown) (unknown) MCHC 33.5 (units (unkn own) date) unknown) (unknown) (no (unknown) (unknown) MCV 77.8 L (units (unk nown) date) unknown) (unknown) (no (unknown) (unknown) Magnesium 1.4 L (units (unknown) date) unknown) (unknown) (no (unknown) (unknown) Medical History (units (unknown) date) (Reviewed 01/27/22 @ unknown) 07:53 by Tony Aceves MD) (unknown) (no (unknown) (unknown) Lajas # (Auto) 500 (units (unknown) date) unknown) (unknown) (no (unknown) (unknown) Lajas % (Auto) 10.4 (units (unknown) date) unknown) (unknown) (no (unknown) (unknown) Musculoskeletal: (units (unknown) date) Able to move all unknown) extremities volitionally. Beginning to (unknown) (no (unknown) (unknown) Narrative (units (unkn own) date) unknown) (unknown) (no (unknown) (unknown) Neuro: Normal (units ( unknown) date) sensation of all unknown) extremities. Oriented x3. (unknown) (no (unknown) (unknown) Neut # (Auto) 3400 (units (unknown) date) unknown) (unknown) (no (unknown) (unknown) Neut % (Auto) 71.7 (units (unknown) date) unknown) (unknown) (no (unknown) (unknown) Objective (units (unkn own) date) unknown) (unknown) (no (unknown) (unknown) Oriented to time (units (unknown) date) place and person. unknown) Appears in no acute medical distress. (unknown) (no (unknown) (unknown) Orthopedic surgery (units (unknown) date) has been consulted unknown) and seen the patient. (unknown) (no (unknown) (unknown) Other Adopted (units ( unknown) date) unknown) (unknown) (no (unknown) (unknown) Oxygen Delivery (units (unknown) date) Method Room Air unknown) (unknown) (no (unknown) (unknown) Oxygen Flow Rate 0 (units (unknown) date) unknown) (unknown) (no (unknown) (unknown) Oxygen Flow Rate 0 (units (unknown) date) unknown) (unknown) (no (unknown) (unknown) PFSH (units (unkno wn) date) unknown) (unknown) (no (unknown) (unknown) Patient currently (units (unknown) date) being treated with unknown) vancomycin.? This is essentially (unknown) (no (unknown) (unknown) Patient is currently (uni ts (unknown) date) recovering from unknown) biventricular heart catheterization (unknown) (no (unknown) (unknown) Patient is? (units (un known) date) inpatient service due unknown) to the severity of disease, risks of further (unknown) (no (unknown) (unknown) Patient received 2 (units (unknown) date) units PRBC in the unknown) emergency department increasing his H+H (unknown) (no (unknown) (unknown) Patient was fluid (units (unknown) date) resuscitated in the unknown) emergency department 2 L (unknown) (no (unknown) (unknown) Patient's proBNP was (uni ts (unknown) date) almost 7200. Repeat unknown) tomorrow. (unknown) (no (unknown) (unknown) Patient's (units (unkn own) date) rivaroxaban, aspirin unknown) and clopidogrel are being held (unknown) (no (unknown) (unknown) Patient: (units (unkno wn) date) Osmel Baxter MR#: unknown) M000 (unknown) (no (unknown) (unknown) Plt Count 159 (units ( unknown) date) unknown) (unknown) (no (unknown) (unknown) Potassium 3.7 (units ( unknown) date) unknown) (unknown) (no (unknown) (unknown) Provider: (units (unkn own) date) Chary Ramirez MD unknown) (unknown) (no (unknown) (unknown) Psych: Normal mood (units (unknown) date) and affect. unknown) (unknown) (no (unknown) (unknown) Pulse Oximetry 97 (units (unknown) date) unknown) (unknown) (no (unknown) (unknown) Pulse Rate 67 67 (units (unknown) date) unknown) (unknown) (no (unknown) (unknown) Quality (units (unkno wn) date) unknown) (unknown) (no (unknown) (unknown) RBC 3.11 L (units (unk nown) date) unknown) (unknown) (no (unknown) (unknown) RBC Morphology See (units (unknown) date) below unknown) (unknown) (no (unknown) (unknown) RDW 23.7 H (units (unk nown) date) unknown) (unknown) (no (unknown) (unknown) Respiratory Rate 16 (unit s (unknown) date) unknown) (unknown) (no (unknown) (unknown) Respiratory: (units (u nknown) date) Adequate air entry unknown) throughout the lung adam, there are no (unknown) (no (unknown) (unknown) Result Diagrams: (units (unknown) date) 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 Wound left knee unknown) with hematoma currently dressed. (unknown) (no (unknown) (unknown) Sleep apnea (units (un known) date) unknown) (unknown) (no (unknown) (unknown) Smoking Status: (units (unknown) date) Former smoker unknown) (unknown) (no (unknown) (unknown) Social History (units (unknown) date) (Updated 09/25/18 @ unknown) 11:17 by Telma Dickey DO) (unknown) (no (unknown) (unknown) Sodium 134 L (units (u nknown) date) unknown) (unknown) (no (unknown) (unknown) Soft tissues (units (u nknown) date) abrasions right arm unknown) dressed. (unknown) (no (unknown) (unknown) Subjective (units (unk nown) date) unknown) (unknown) (no (unknown) (unknown) Surgical History (units (unknown) date) (Reviewed 01/27/22 @ unknown) 07:53 by Tony Aceves MD) (unknown) (no (unknown) (unknown) Temperature 97.4 F L (uni ts (unknown) date) unknown) (unknown) (no (unknown) (unknown) Time Patient Seen: (units (unknown) date) 11:00 unknown) (unknown) (no (unknown) (unknown) Time Spent With (units (unknown) date) Patient unknown) (unknown) (no (unknown) (unknown) Total Bilirubin 1.9 (unit s (unknown) date) H unknown) (unknown) (no (unknown) (unknown) Total Protein 6.7 (units (unknown) date) unknown) (unknown) (no (unknown) (unknown) VTE (units (unkno wn) date) unknown) (unknown) (no (unknown) (unknown) VTE Prophylaxis: (units (unknown) date) Wells risk score unknown) 1.5.? 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 Has (unknown) (no (unknown) (unknown) [Embedded Image Not (unit s (unknown) date) Available] unknown) (unknown) (no (unknown) (unknown) admission (units (unkn own) date) unknown) (unknown) (no (unknown) (unknown) and clopidogrel. (units (unknown) date) unknown) (unknown) (no (unknown) (unknown) appears to be triple (uni ts (unknown) date) anti-platelet unknown) therapy, present on admission.? Causing (unknown) (no (unknown) (unknown) bilaterally. No (units (unknown) date) pedal edema. unknown) (unknown) (no (unknown) (unknown) contraindicated in (units (unknown) date) the setting of active unknown) bleeding will do SCD? (unknown) (no (unknown) (unknown) daily.? (units (unkno wn) date) Hydrochlorothiazide unknown) is not been ordered.? Will add torsemide. (unknown) (no (unknown) (unknown) details: x 9 (uni ts (unknown) date) months unknown) (unknown) (no (unknown) (unknown) disease progression (unit s (unknown) date) and this stay is unknown) expected to exceed 2 midnights. (unknown) (no (unknown) (unknown) evaluate.? Consult (units (unknown) date) pending. unknown) (unknown) (no (unknown) (unknown) ffice. (units (unkno wn) date) unknown) (unknown) (no (unknown) (unknown) from 6.7-7.9 and (units (unknown) date) 20.8-24.5 unknown) respectively.? Today hemoglobin stable at 8.1.? This (unknown) (no (unknown) (unknown) hematoma left leg.? (unit s (unknown) date) With skin compromise unknown) over the hematoma will have wound care (unknown) (no (unknown) (unknown) hold due to renal (units (unknown) date) function. unknown) (unknown) (no (unknown) (unknown) household members: (units (unknown) date) children unknown) (unknown) (no (unknown) (unknown) hydrochlorothiazide (unit s (unknown) date) and torsemide.? Will unknown) increase daily furosemide to 40 mg (unknown) (no (unknown) (unknown) is midline. (units (un known) date) unknown) (unknown) (no (unknown) (unknown) is stable. If (units ( unknown) date) remains consistently unknown) stable can reinitiate rivaroxaban, aspirin (unknown) (no (unknown) (unknown) marital status: (units (unknown) date) unknown) (unknown) (no (unknown) (unknown) mobilize more with (units (unknown) date) physical therapy. No unknown) localized strength deficits. (unknown) (no (unknown) (unknown) not been evaluated (units (unknown) date) yet. Would be best to unknown) have consult and treatment plan prior (unknown) (no (unknown) (unknown) other complaints. (units (unknown) date) unknown) (unknown) (no (unknown) (unknown) patient?s care is (units (unknown) date) appreciated.? This unknown) has been completed. (unknown) (no (unknown) (unknown) prophylactic. (units ( unknown) date) unknown) (unknown) (no (unknown) (unknown) supple. Neck nodes (units (unknown) date) are nontender unknown) nonpalpable. Head is normocephalic. Trachea (unknown) (no (unknown) (unknown) to discharge. Needed (uni ts (unknown) date) plan for care. unknown) (unknown) (no (unknown) (unknown) today; this time is (unit s (unknown) date) exclusive of unknown) procedural time. (unknown) (no (unknown) (unknown) treatment. (units (unk nown) date) unknown) (unknown) (no (unknown) (unknown) wheezes or crackles. (uni ts (unknown) date) unknown) Result panel 68 (unknown) (no date) (unknown) (unknown) NO GROWTH (units (unk nown) AFTER 48 unknown) HOURS (unknown) (no date) (unknown) (unknown) (no value) (units (un known) unknown) Result panel 69 (unknown) (no date) (unknown) (unknown) NO GROWTH (units (unk nown) AFTER 48 unknown) HOURS (unknown) (no date) (unknown) (unknown) (no value) (units (un known) unknown) Result panel 70 (unknown) (no date) (unknown) (unknown) 0 /uL (unkn own) (unknown) (no date) (unknown) (unknown) 0.6 % (unkn own) (unknown) (no date) (unknown) (unknown) 12.0 % (unkn own) (unknown) (no date) (unknown) (unknown) 15.8 % (unkn own) (unknown) (no date) (unknown) (unknown) 164 X10 3/uL (unkn own) (unknown) (no date) (unknown) (unknown) 200 /uL (unkn own) (unknown) (no date) (unknown) (unknown) 23.6 % (unkn own) (unknown) (no date) (unknown) (unknown) 25.9 PG (unkn own) (unknown) (no date) (unknown) (unknown) 26.2 % (unkn own) (unknown) (no date) (unknown) (unknown) 3.33 X10 6/uL (unkn own) (unknown) (no date) (unknown) (unknown) 3.4 % (unkn own) (unknown) (no date) (unknown) (unknown) 32.8 % (unkn own) (unknown) (no date) (unknown) (unknown) 3300 /uL (unkn own) (unknown) (no date) (unknown) (unknown) 4.9 X10 3/uL (unkn own) (unknown) (no date) (unknown) (unknown) 600 /uL (unkn own) (unknown) (no date) (unknown) (unknown) 68.2 % (unkn own) (unknown) (no date) (unknown) (unknown) 78.8 fL (unkn own) (unknown) (no date) (unknown) (unknown) 8.6 g/dL (unkn own) (unknown) (no date) (unknown) (unknown) 800 /uL (unkn own) Result panel 71 (unknown) (no date) (unknown) (unknown) 0.9 (units unknown) (unknown) (unknown) (no date) (unknown) (unknown) 1.4 mg/dL (unkn own) (unknown) (no date) (unknown) (unknown) 114 mg/dL (unkn own) (unknown) (no date) (unknown) (unknown) 119 U/L (unkn own) (unknown) (no date) (unknown) (unknown) 133 mmol/L (unkn own) (unknown) (no date) (unknown) (unknown) 16 IU/L (unkn own) (unknown) (no date) (unknown) (unknown) 2.02 mg/dL (unkn own) (unknown) (no date) (unknown) (unknown) 22 IU/L (unkn own) (unknown) (no date) (unknown) (unknown) 25.2 (units unknown) (unknown) (unknown) (no date) (unknown) (unknown) 27 mmol/L (unkn own) (unknown) (no date) (unknown) (unknown) 3.3 g/dL (unkn own) (unknown) (no date) (unknown) (unknown) 3.5 g/dL (unkn own) (unknown) (no date) (unknown) (unknown) 3.8 mmol/L (unkn own) (unknown) (no date) (unknown) (unknown) 34 mL/min (unkn own) (unknown) (no date) (unknown) (unknown) 51 mg/dL (unkn own) (unknown) (no date) (unknown) (unknown) 6.8 g/dL (unkn own) (unknown) (no date) (unknown) (unknown) 8.4 mg/dL (unkn own) (unknown) (no date) (unknown) (unknown) 98 mmol/L (unkn own) Result panel 72 (unknown) (no date) (unknown) (unknown) 0.029 ng/mL (unkn own) (unknown) (no date) (unknown) (unknown) 0.9 (units unknown) (unknown) (unknown) (no date) (unknown) (unknown) 1.4 mg/dL (unkn own) (unknown) (no date) (unknown) (unknown) 114 mg/dL (unkn own) (unknown) (no date) (unknown) (unknown) 119 U/L (unkn own) (unknown) (no date) (unknown) (unknown) 133 mmol/L (unkn own) (unknown) (no date) (unknown) (unknown) 16 IU/L (unkn own) (unknown) (no date) (unknown) (unknown) 2.02 mg/dL (unkn own) (unknown) (no date) (unknown) (unknown) 22 IU/L (unkn own) (unknown) (no date) (unknown) (unknown) 25.2 (units unknown) (unknown) (unknown) (no date) (unknown) (unknown) 27 mmol/L (unkn own) (unknown) (no date) (unknown) (unknown) 3.3 g/dL (unkn own) (unknown) (no date) (unknown) (unknown) 3.5 g/dL (unkn own) (unknown) (no date) (unknown) (unknown) 3.8 mmol/L (unkn own) (unknown) (no date) (unknown) (unknown) 34 mL/min (unkn own) (unknown) (no date) (unknown) (unknown) 51 mg/dL (unkn own) (unknown) (no date) (unknown) (unknown) 5570 pg/mL (unkn own) (unknown) (no date) (unknown) (unknown) 6.8 g/dL (unkn own) (unknown) (no date) (unknown) (unknown) 8.4 mg/dL (unkn own) (unknown) (no date) (unknown) (unknown) 98 mmol/L (unkn own) Result panel 73 (unknown) (no date) (unknown) (unknown) 0 /uL (unkn own) (unknown) (no date) (unknown) (unknown) 0.6 % (unkn own) (unknown) (no date) (unknown) (unknown) 12.0 % (unkn own) (unknown) (no date) (unknown) (unknown) 15.8 % (unkn own) (unknown) (no date) (unknown) (unknown) 164 X10 3/uL (unkn own) (unknown) (no date) (unknown) (unknown) 200 /uL (unkn own) (unknown) (no date) (unknown) (unknown) 23.6 % (unkn own) (unknown) (no date) (unknown) (unknown) 25.9 PG (unkn own) (unknown) (no date) (unknown) (unknown) 26.2 % (unkn own) (unknown) (no date) (unknown) (unknown) 3+ (units (unkn own) unknown) (unknown) (no date) (unknown) (unknown) 3.33 X10 6/uL (unkn own) (unknown) (no date) (unknown) (unknown) 3.4 % (unkn own) (unknown) (no date) (unknown) (unknown) 32.8 % (unkn own) (unknown) (no date) (unknown) (unknown) 3300 /uL (unkn own) (unknown) (no date) (unknown) (unknown) 4.9 X10 3/uL (unkn own) (unknown) (no date) (unknown) (unknown) 600 /uL (unkn own) (unknown) (no date) (unknown) (unknown) 68.2 % (unkn own) (unknown) (no date) (unknown) (unknown) 78.8 fL (unkn own) (unknown) (no date) (unknown) (unknown) 8.6 g/dL (unkn own) (unknown) (no date) (unknown) (unknown) 800 /uL (unkn own) (unknown) (no date) (unknown) (unknown) See Below (units (unk nown) unknown) Result panel 74 (unknown) (no date) (unknown) (unknown) 40,000 - CFU/ml (unkn own) 50,000 (unknown) (no date) (unknown) (unknown) GenericCompo (units ( unknown) site[CANGLA^C unknown) andida glabrata] Result panel 75 (unknown) (no (unknown) (unknown) (no value) (units (unk nown) date) unknown) (unknown) (no (unknown) (unknown) Date of Service: (units (unknown) date) 01/27/22 unknown) (unknown) (no (unknown) (unknown) (no value) (units (unk nown) date) unknown) (unknown) (no (unknown) (unknown) - (units (unkno wn) date) unknown) (unknown) (no (unknown) (unknown) 01/29/22 05:08 (units (unknown) date) unknown) (unknown) (no (unknown) (unknown) [facility] [address] (uni [address] (unknown) date) [address] unknown) [place] [address] (unknown) (no (unknown) (unknown) Laboratory Results - (uni ts (unknown) date) last 24 hr unknown) (unknown) (no (unknown) (unknown) Progress Note (units ( unknown) date) unknown) (unknown) (no (unknown) (unknown) (no value) (units (unk nown) date) unknown) (unknown) (no (unknown) (unknown) 05:08 05:08 (units (un known) date) unknown) (unknown) (no (unknown) (unknown) 01/29/22 01/29/22 (units (unknown) date) unknown) (unknown) (no (unknown) (unknown) 01/29/22 (units (unkno wn) date) unknown) (unknown) (no (unknown) (unknown) enzymes, Mag, PT/INR (uni ts (unknown) date) unknown) (unknown) (no (unknown) (unknown) is Dr. Agrawal in (units (unknown) date) [place].? Will unknown) notify of admission, message left at his (unknown) (no (unknown) (unknown) re-initiation of (units (unknown) date) rivaroxaban and unknown) aspirin and clopidogrel prior to discharge. (unknown) (no (unknown) (unknown) (past 8 hours): (units (unknown) date) unknown) (unknown) (no (unknown) (unknown) 1. Acute blood loss (unit s (unknown) date) anemia likely unknown) secondary to over coagulation with what (unknown) (no (unknown) (unknown) 11:32 (units (unkno wn) date) unknown) (unknown) (no (unknown) (unknown) 2. Acute kidney (units (unknown) date) injury likely unknown) secondary to blood loss anemia, present on (unknown) (no (unknown) (unknown) 3. Acute (units (unkno wn) date) decompensated heart unknown) failure with reduced ejection fraction, present on (unknown) (no (unknown) (unknown) [id number] (units (unkno wn) date) unknown) (unknown) (no (unknown) (unknown) 4. Probable left (units (unknown) date) knee cellulitis, unknown) acute, present on admission (unknown) (no (unknown) (unknown) 5. Coronary artery (units (unknown) date) disease, chronic unknown) (unknown) (no (unknown) (unknown) 6. Diabetes type 2, (unit s (unknown) date) appears to be well unknown) controlled (unknown) (no (unknown) (unknown) 7. Mobilization.? (units (unknown) date) Beginning to mobilize unknown) with physical therapy.? Continue with (unknown) (no (unknown) (unknown) ?A1c is 6.5 (units (un known) date) unknown) (unknown) (no (unknown) (unknown) ALT 16 (units (unkno wn) date) unknown) (unknown) (no (unknown) (unknown) AST 22 (units (unkno wn) date) unknown) (unknown) (no (unknown) (unknown) Age/Sex: 76 / M (units (unknown) date) unknown) (unknown) (no (unknown) (unknown) Albumin 3.3 L (units ( unknown) date) unknown) (unknown) (no (unknown) (unknown) Albumin/Globulin (units (unknown) date) Ratio 0.9 L unknown) (unknown) (no (unknown) (unknown) Alkaline Phosphatase (uni ts (unknown) date) 119 unknown) (unknown) (no (unknown) (unknown) Anisocytosis 3+ H (units (unknown) date) unknown) (unknown) (no (unknown) (unknown) Anticoagulated (units (unknown) date) unknown) (unknown) (no (unknown) (unknown) Assessment + Plan (units (unknown) date) unknown) (unknown) (no (unknown) (unknown) Assessment + Plan (units (unknown) date) narrative: unknown) (unknown) (no (unknown) (unknown) Assessment + Plan (units (unknown) date) narrative: unknown) (unknown) (no (unknown) (unknown) Atrial fibrillation (unit s (unknown) date) unknown) (unknown) (no (unknown) (unknown) BUN 51 H (units (unkno wn) date) unknown) (unknown) (no (unknown) (unknown) BUN/Creatinine Ratio (uni ts (unknown) date) 25.2 H unknown) (unknown) (no (unknown) (unknown) Baso # (Auto) 0 (units (unknown) date) unknown) (unknown) (no (unknown) (unknown) Baso % (Auto) 0.6 (units (unknown) date) unknown) (unknown) (no (unknown) (unknown) Blood Pressure (units (unknown) date) 105/45 L unknown) (unknown) (no (unknown) (unknown) Calcium 8.4 (units (un known) date) unknown) (unknown) (no (unknown) (unknown) Carb controlled diet (uni ts (unknown) date) with a.c. HS glucose unknown) checks (unknown) (no (unknown) (unknown) Carbon Dioxide 27 (units (unknown) date) unknown) (unknown) (no (unknown) (unknown) Chloride 98 (units (un known) date) unknown) (unknown) (no (unknown) (unknown) Closely monitor (units (unknown) date) renal function and unknown) hold nephrotoxic medications (Lisinopril).? (unknown) (no (unknown) (unknown) Code status: Full (units (unknown) date) code as discussed unknown) with the patient who identifies his son, (unknown) (no (unknown) (unknown) Consultants: (units (unknown) date) [facility] unknown) Surgery,? care and involvement in the (unknown) (no (unknown) (unknown) Continue carvedilol (unit s (unknown) date) 25 mg p.o. b.i.d., unknown) patient receives in 12.5 mg tablets (unknown) (no (unknown) (unknown) Continue home dose (units (unknown) date) of atorvastatin 40 mg unknown) p.o. at bedtime (unknown) (no (unknown) (unknown) Coronary artery (units (unknown) date) disease unknown) (unknown) (no (unknown) (unknown) Creatinine 2.02 H (units (unknown) date) unknown) (unknown) (no (unknown) (unknown) Critical Care time: (unit s (unknown) date) unknown) (unknown) (no (unknown) (unknown) : 1945 (units (unknown) date) Acct:[id number] unknown) (unknown) (no (unknown) (unknown) Deep Vein (units (unkn own) date) Thrombosis/Pulmonary unknown) Embolism Present on Admission: No (unknown) (no (unknown) (unknown) Diabetes (units (unkno wn) date) unknown) (unknown) (no (unknown) (unknown) Dispo: Unknown at (units (unknown) date) this time.? Need unknown) wound care plan, stability of hemoglobin with (unknown) (no (unknown) (unknown) David his surrogate (units (unknown) date) and POA. unknown) (unknown) (no (unknown) (unknown) Dyslipidemia (units (u nknown) date) unknown) (unknown) (no (unknown) (unknown) Eos # (Auto) 200 (units (unknown) date) unknown) (unknown) (no (unknown) (unknown) Eos % (Auto) 3.4 (units (unknown) date) unknown) (unknown) (no (unknown) (unknown) Estimated GFR 34 L (units (unknown) date) unknown) (unknown) (no (unknown) (unknown) Exam (units (unkno wn) date) unknown) (unknown) (no (unknown) (unknown) FEN: IV fluids: (units (unknown) date) saline lock, diet: unknown) carb controlled diet, labs: CBC, C/BMP, liver (unknown) (no (unknown) (unknown) Family History (units (unknown) date) (Reviewed 01/27/22 @ unknown) 07:53 by Tony Aceves MD) (unknown) (no (unknown) (unknown) GFR improved to 31 (units (unknown) date) today.? Renal unknown) function is improving.? Follow labs. (unknown) (no (unknown) (unknown) Globulin 3.5 (units (u nknown) date) unknown) (unknown) (no (unknown) (unknown) Glucose 114 H (units ( unknown) date) unknown) (unknown) (no (unknown) (unknown) Hct 26.2 L (units (unk nown) date) unknown) (unknown) (no (unknown) (unknown) He is currently (units (unknown) date) saline lock due to unknown) volume overload (unknown) (no (unknown) (unknown) He will receive his (unit s (unknown) date) home dose of Lantus unknown) 30 units b.i.d. Metformin remains on (unknown) (no (unknown) (unknown) Hgb 8.6 L (units (unkn own) date) unknown) (unknown) (no (unknown) (unknown) Hx of (units (unkno wn) date) cholecystectomy unknown) (unknown) (no (unknown) (unknown) Hypertension (units (u nknown) date) unknown) (unknown) (no (unknown) (unknown) I spent a total of (units (unknown) date) [] minutes of unknown) critical care time on this patient's care (unknown) (no (unknown) (unknown) In the ER, he (units ( unknown) date) received IV Lasix 80 unknown) mg in addition to his home oral dose of (unknown) (no (unknown) (unknown) Labs (units (unkno wn) date) unknown) (unknown) (no (unknown) (unknown) Labs: (units (unkno wn) date) unknown) (unknown) (no (unknown) (unknown) Low-dose (units (unkno wn) date) correctional scale unknown) insulin and adjust as needed (unknown) (no (unknown) (unknown) Lymph # (Auto) 800 L (uni ts (unknown) date) unknown) (unknown) (no (unknown) (unknown) Lymph % (Auto) 15.8 (unit s (unknown) date) L unknown) (unknown) (no (unknown) (unknown) MCH 25.9 L (units (unk nown) date) unknown) (unknown) (no (unknown) (unknown) MCHC 32.8 (units (unkn own) date) unknown) (unknown) (no (unknown) (unknown) MCV 78.8 L (units (unk nown) date) unknown) (unknown) (no (unknown) (unknown) Medical History (units (unknown) date) (Reviewed 01/27/22 @ unknown) 07:53 by Tony Aceves MD) (unknown) (no (unknown) (unknown) Lajas # (Auto) 600 (units (unknown) date) unknown) (unknown) (no (unknown) (unknown) Lajas % (Auto) 12.0 (units (unknown) date) unknown) (unknown) (no (unknown) (unknown) NT-Pro-B Natriuret (units (unknown) date) Pep 5570 H unknown) (unknown) (no (unknown) (unknown) Neut # (Auto) 3300 (units (unknown) date) unknown) (unknown) (no (unknown) (unknown) Neut % (Auto) 68.2 (units (unknown) date) unknown) (unknown) (no (unknown) (unknown) Objective (units (unkn own) date) unknown) (unknown) (no (unknown) (unknown) Orthopedic surgery (units (unknown) date) has been consulted unknown) and seen the patient. (unknown) (no (unknown) (unknown) Other Adopted (units ( unknown) date) unknown) (unknown) (no (unknown) (unknown) Oxygen Delivery (units (unknown) date) Method Room Air unknown) (unknown) (no (unknown) (unknown) Oxygen Flow Rate 0 (units (unknown) date) unknown) (unknown) (no (unknown) (unknown) Oxygen Flow Rate 0 (units (unknown) date) unknown) (unknown) (no (unknown) (unknown) PFSH (units (unkno wn) date) unknown) (unknown) (no (unknown) (unknown) Patient currently (units (unknown) date) being treated with unknown) vancomycin.? This is essentially (unknown) (no (unknown) (unknown) Patient is currently (uni ts (unknown) date) recovering from unknown) biventricular heart catheterization (unknown) (no (unknown) (unknown) Patient is? (units (un known) date) inpatient service due unknown) to the severity of disease, risks of further (unknown) (no (unknown) (unknown) Patient received 2 (units (unknown) date) units PRBC in the unknown) emergency department increasing his H+H (unknown) (no (unknown) (unknown) Patient was fluid (units (unknown) date) resuscitated in the unknown) emergency department 2 L (unknown) (no (unknown) (unknown) Patient's proBNP was (uni ts (unknown) date) almost 7200.? Repeat unknown) tomorrow. (unknown) (no (unknown) (unknown) Patient's (units (unkn own) date) rivaroxaban, aspirin unknown) and clopidogrel are being held (unknown) (no (unknown) (unknown) Patient: (units (unkno wn) date) Osmel Baxter MR#: unknown) M000 (unknown) (no (unknown) (unknown) Plt Count 164 (units ( unknown) date) unknown) (unknown) (no (unknown) (unknown) Potassium 3.8 (units ( unknown) date) unknown) (unknown) (no (unknown) (unknown) Provider: (units (unkn own) date) Chary Ramirez MD unknown) (unknown) (no (unknown) (unknown) Pulse Oximetry 93 (units (unknown) date) unknown) (unknown) (no (unknown) (unknown) Pulse Rate 65 (units ( unknown) date) unknown) (unknown) (no (unknown) (unknown) Quality (units (unkno wn) date) unknown) (unknown) (no (unknown) (unknown) RBC 3.33 L (units (unk nown) date) unknown) (unknown) (no (unknown) (unknown) RBC Morphology See (units (unknown) date) below unknown) (unknown) (no (unknown) (unknown) RDW 23.6 H (units (unk nown) date) unknown) (unknown) (no (unknown) (unknown) Respiratory Rate 18 (unit s (unknown) date) unknown) (unknown) (no (unknown) (unknown) Result Diagrams: (units (unknown) date) 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) (unknown) (no (unknown) (unknown) Signed By: (units (unk nown) date) unknown) (unknown) (no (unknown) (unknown) Sleep apnea (units (un known) date) unknown) (unknown) (no (unknown) (unknown) Smoking Status: (units (unknown) date) Former smoker unknown) (unknown) (no (unknown) (unknown) Social History (units (unknown) date) (Updated 09/25/18 @ unknown) 11:17 by Telma Dickey DO) (unknown) (no (unknown) (unknown) Sodium 133 L (units (u nknown) date) unknown) (unknown) (no (unknown) (unknown) Surgical History (units (unknown) date) (Reviewed 01/27/22 @ unknown) 07:53 by Tony Aceves MD) (unknown) (no (unknown) (unknown) Temperature 97.7 F (units (unknown) date) unknown) (unknown) (no (unknown) (unknown) Time Spent With (units (unknown) date) Patient unknown) (unknown) (no (unknown) (unknown) Total Bilirubin 1.4 (unit s (unknown) date) H unknown) (unknown) (no (unknown) (unknown) Total Protein 6.8 (units (unknown) date) unknown) (unknown) (no (unknown) (unknown) Troponin I 0.029 (units (unknown) date) unknown) (unknown) (no (unknown) (unknown) VTE (units (unkno wn) date) unknown) (unknown) (no (unknown) (unknown) VTE Prophylaxis: (units (unknown) date) Wells risk score unknown) 1.5.? 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 Has (unknown) (no (unknown) (unknown) [Embedded Image Not (unit s (unknown) date) Available] unknown) (unknown) (no (unknown) (unknown) admission (units (unkn own) date) unknown) (unknown) (no (unknown) (unknown) and clopidogrel. (units (unknown) date) unknown) (unknown) (no (unknown) (unknown) appears to be triple (uni ts (unknown) date) anti-platelet unknown) therapy, present on admission.? Causing (unknown) (no (unknown) (unknown) contraindicated in (units (unknown) date) the setting of active unknown) bleeding will do SCD? (unknown) (no (unknown) (unknown) daily.? (units (unkno wn) date) Hydrochlorothiazide unknown) is not been ordered.? Will add torsemide. (unknown) (no (unknown) (unknown) details: x 9 (uni ts (unknown) date) months unknown) (unknown) (no (unknown) (unknown) disease progression (unit s (unknown) date) and this stay is unknown) expected to exceed 2 midnights. (unknown) (no (unknown) (unknown) evaluate.? Consult (units (unknown) date) pending. unknown) (unknown) (no (unknown) (unknown) from 6.7-7.9 and (units (unknown) date) 20.8-24.5 unknown) respectively.? Today hemoglobin stable at 8.1.? This (unknown) (no (unknown) (unknown) hematoma left leg.? (unit s (unknown) date) With skin compromise unknown) over the hematoma will have wound care (unknown) (no (unknown) (unknown) hold due to renal (units (unknown) date) function. unknown) (unknown) (no (unknown) (unknown) household members: (units (unknown) date) children unknown) (unknown) (no (unknown) (unknown) hydrochlorothiazide (unit s (unknown) date) and torsemide.? Will unknown) increase daily furosemide to 40 mg (unknown) (no (unknown) (unknown) is stable.? If (units (unknown) date) remains consistently unknown) stable can reinitiate rivaroxaban, aspirin (unknown) (no (unknown) (unknown) marital status: (units (unknown) date) unknown) (unknown) (no (unknown) (unknown) not been evaluated (units (unknown) date) yet.? Would be best unknown) to have consult and treatment plan prior (unknown) (no (unknown) (unknown) office. (units (unkno wn) date) unknown) (unknown) (no (unknown) (unknown) patient?s care is (units (unknown) date) appreciated.? This unknown) has been completed. (unknown) (no (unknown) (unknown) prophylactic. (units ( unknown) date) unknown) (unknown) (no (unknown) (unknown) to discharge.? (units (unknown) date) Needed plan for care. unknown) (unknown) (no (unknown) (unknown) today; this time is (unit s (unknown) date) exclusive of unknown) procedural time. (unknown) (no (unknown) (unknown) treatment.? (units (un known) date) unknown) Result panel 76 (unknown) (no (unknown) (unknown) (no value) (units (unk nown) date) unknown) (unknown) (no (unknown) (unknown) Date of Service: (units (unknown) date) 01/27/22 unknown) (unknown) (no (unknown) (unknown) (no value) (units (unk nown) date) unknown) (unknown) (no (unknown) (unknown) - (units (unkno wn) date) unknown) (unknown) (no (unknown) (unknown) 01/29/22 05:08 (units (unknown) date) unknown) (unknown) (no (unknown) (unknown) [facility] [address] (uni ts (unknown) date) [address] unknown) [place] [address] (unknown) (no (unknown) (unknown) Laboratory Results - (uni ts (unknown) date) last 24 hr unknown) (unknown) (no (unknown) (unknown) Progress Note (units ( unknown) date) unknown) (unknown) (no (unknown) (unknown) (no value) (units (unk nown) date) unknown) (unknown) (no (unknown) (unknown) 05:08 05:08 (units (un known) date) unknown) (unknown) (no (unknown) (unknown) 01/29/22 01/29/22 (units (unknown) date) unknown) (unknown) (no (unknown) (unknown) 01/29/22 (units (unkno wn) date) unknown) (unknown) (no (unknown) (unknown) enzymes, Mag, PT/INR (uni ts (unknown) date) unknown) (unknown) (no (unknown) (unknown) is Dr. Agrawal in (units (unknown) date) [place].? Will unknown) notify of admission, message left at his (unknown) (no (unknown) (unknown) re-initiation of (units (unknown) date) rivaroxaban and unknown) aspirin and clopidogrel prior to discharge. (unknown) (no (unknown) (unknown) (past 8 hours): (units (unknown) date) unknown) (unknown) (no (unknown) (unknown) 1. Acute blood loss (unit s (unknown) date) anemia likely unknown) secondary to over coagulation with what (unknown) (no (unknown) (unknown) 11:32 (units (unkno wn) date) unknown) (unknown) (no (unknown) (unknown) 2. Acute kidney (units (unknown) date) injury likely unknown) secondary to blood loss anemia, present on (unknown) (no (unknown) (unknown) 3. Acute (units (unkno wn) date) decompensated heart unknown) failure with reduced ejection fraction, present on (unknown) (no (unknown) (unknown) [id number] (units (unkno wn) date) unknown) (unknown) (no (unknown) (unknown) 4. Probable left (units (unknown) date) knee cellulitis, unknown) acute, present on admission (unknown) (no (unknown) (unknown) 5. Coronary artery (units (unknown) date) disease, chronic unknown) (unknown) (no (unknown) (unknown) 6. Diabetes type 2, (unit s (unknown) date) appears to be well unknown) controlled (unknown) (no (unknown) (unknown) 7. Mobilization.? (units (unknown) date) Beginning to mobilize unknown) with physical therapy.? Continue with (unknown) (no (unknown) (unknown) ?A1c is 6.5 (units (un known) date) unknown) (unknown) (no (unknown) (unknown) ALT 16 (units (unkno wn) date) unknown) (unknown) (no (unknown) (unknown) AST 22 (units (unkno wn) date) unknown) (unknown) (no (unknown) (unknown) Age/Sex: 76 / M (units (unknown) date) unknown) (unknown) (no (unknown) (unknown) Albumin 3.3 L (units ( unknown) date) unknown) (unknown) (no (unknown) (unknown) Albumin/Globulin (units (unknown) date) Ratio 0.9 L unknown) (unknown) (no (unknown) (unknown) Alkaline Phosphatase (uni ts (unknown) date) 119 unknown) (unknown) (no (unknown) (unknown) Anisocytosis 3+ H (units (unknown) date) unknown) (unknown) (no (unknown) (unknown) Anticoagulated (units (unknown) date) unknown) (unknown) (no (unknown) (unknown) Assessment + Plan (units (unknown) date) unknown) (unknown) (no (unknown) (unknown) Assessment + Plan (units (unknown) date) narrative: unknown) (unknown) (no (unknown) (unknown) Assessment + Plan (units (unknown) date) narrative: unknown) (unknown) (no (unknown) (unknown) Atrial fibrillation (unit s (unknown) date) unknown) (unknown) (no (unknown) (unknown) BUN 51 H (units (unkno wn) date) unknown) (unknown) (no (unknown) (unknown) BUN/Creatinine Ratio (uni ts (unknown) date) 25.2 H unknown) (unknown) (no (unknown) (unknown) Baso # (Auto) 0 (units (unknown) date) unknown) (unknown) (no (unknown) (unknown) Baso % (Auto) 0.6 (units (unknown) date) unknown) (unknown) (no (unknown) (unknown) Blood Pressure (units (unknown) date) 105/45 L unknown) (unknown) (no (unknown) (unknown) Calcium 8.4 (units (un known) date) unknown) (unknown) (no (unknown) (unknown) Carb controlled diet (uni ts (unknown) date) with a.c. HS glucose unknown) checks (unknown) (no (unknown) (unknown) Carbon Dioxide 27 (units (unknown) date) unknown) (unknown) (no (unknown) (unknown) Chloride 98 (units (un known) date) unknown) (unknown) (no (unknown) (unknown) Closely monitor (units (unknown) date) renal function and unknown) hold nephrotoxic medications (Lisinopril).? (unknown) (no (unknown) (unknown) Code status: Full (units (unknown) date) code as discussed unknown) with the patient who identifies his son, (unknown) (no (unknown) (unknown) Consultants: (units (unknown) date) [facility] unknown) Surgery,? care and involvement in the (unknown) (no (unknown) (unknown) Continue carvedilol (unit s (unknown) date) 25 mg p.o. b.i.d., unknown) patient receives in 12.5 mg tablets (unknown) (no (unknown) (unknown) Continue home dose (units (unknown) date) of atorvastatin 40 mg unknown) p.o. at bedtime (unknown) (no (unknown) (unknown) Coronary artery (units (unknown) date) disease unknown) (unknown) (no (unknown) (unknown) Creatinine 2.02 H (units (unknown) date) unknown) (unknown) (no (unknown) (unknown) Critical Care time: (unit s (unknown) date) unknown) (unknown) (no (unknown) (unknown) : 1945 (units (unknown) date) Acct:[id number] unknown) (unknown) (no (unknown) (unknown) Deep Vein (units (unkn own) date) Thrombosis/Pulmonary unknown) Embolism Present on Admission: No (unknown) (no (unknown) (unknown) Diabetes (units (unkno wn) date) unknown) (unknown) (no (unknown) (unknown) Dispo: Unknown at (units (unknown) date) this time.? Need unknown) wound care plan, stability of hemoglobin with (unknown) (no (unknown) (unknown) David his surrogate (units (unknown) date) and POA. unknown) (unknown) (no (unknown) (unknown) Dyslipidemia (units (u nknown) date) unknown) (unknown) (no (unknown) (unknown) Eos # (Auto) 200 (units (unknown) date) unknown) (unknown) (no (unknown) (unknown) Eos % (Auto) 3.4 (units (unknown) date) unknown) (unknown) (no (unknown) (unknown) Estimated GFR 34 L (units (unknown) date) unknown) (unknown) (no (unknown) (unknown) Exam (units (unkno wn) date) unknown) (unknown) (no (unknown) (unknown) FEN: IV fluids: (units (unknown) date) saline lock, diet: unknown) carb controlled diet, labs: CBC, C/BMP, liver (unknown) (no (unknown) (unknown) Family History (units (unknown) date) (Reviewed 01/27/22 @ unknown) 07:53 by Tony Aceves MD) (unknown) (no (unknown) (unknown) GFR improved to 31 (units (unknown) date) today.? Renal unknown) function is improving.? Follow labs. (unknown) (no (unknown) (unknown) Globulin 3.5 (units (u nknown) date) unknown) (unknown) (no (unknown) (unknown) Glucose 114 H (units ( unknown) date) unknown) (unknown) (no (unknown) (unknown) Hct 26.2 L (units (unk nown) date) unknown) (unknown) (no (unknown) (unknown) He is currently (units (unknown) date) saline lock due to unknown) volume overload (unknown) (no (unknown) (unknown) He will receive his (unit s (unknown) date) home dose of Lantus unknown) 30 units b.i.d. Metformin remains on (unknown) (no (unknown) (unknown) Hgb 8.6 L (units (unkn own) date) unknown) (unknown) (no (unknown) (unknown) Hx of (units (unkno wn) date) cholecystectomy unknown) (unknown) (no (unknown) (unknown) Hypertension (units (u nknown) date) unknown) (unknown) (no (unknown) (unknown) I spent a total of (units (unknown) date) [] minutes of unknown) critical care time on this patient's care (unknown) (no (unknown) (unknown) In the ER, he (units ( unknown) date) received IV Lasix 80 unknown) mg in addition to his home oral dose of (unknown) (no (unknown) (unknown) Labs (units (unkno wn) date) unknown) (unknown) (no (unknown) (unknown) Labs: (units (unkno wn) date) unknown) (unknown) (no (unknown) (unknown) Low-dose (units (unkno wn) date) correctional scale unknown) insulin and adjust as needed (unknown) (no (unknown) (unknown) Lymph # (Auto) 800 L (uni ts (unknown) date) unknown) (unknown) (no (unknown) (unknown) Lymph % (Auto) 15.8 (unit s (unknown) date) L unknown) (unknown) (no (unknown) (unknown) MCH 25.9 L (units (unk nown) date) unknown) (unknown) (no (unknown) (unknown) MCHC 32.8 (units (unkn own) date) unknown) (unknown) (no (unknown) (unknown) MCV 78.8 L (units (unk nown) date) unknown) (unknown) (no (unknown) (unknown) Medical History (units (unknown) date) (Reviewed 01/27/22 @ unknown) 07:53 by Tony Aceves MD) (unknown) (no (unknown) (unknown) Lajas # (Auto) 600 (units (unknown) date) unknown) (unknown) (no (unknown) (unknown) Lajas % (Auto) 12.0 (units (unknown) date) unknown) (unknown) (no (unknown) (unknown) NT-Pro-B Natriuret (units (unknown) date) Pep 5570 H unknown) (unknown) (no (unknown) (unknown) Neut # (Auto) 3300 (units (unknown) date) unknown) (unknown) (no (unknown) (unknown) Neut % (Auto) 68.2 (units (unknown) date) unknown) (unknown) (no (unknown) (unknown) Objective (units (unkn own) date) unknown) (unknown) (no (unknown) (unknown) Orthopedic surgery (units (unknown) date) has been consulted unknown) and seen the patient. (unknown) (no (unknown) (unknown) Other Adopted (units ( unknown) date) unknown) (unknown) (no (unknown) (unknown) Oxygen Delivery (units (unknown) date) Method Room Air unknown) (unknown) (no (unknown) (unknown) Oxygen Flow Rate 0 (units (unknown) date) unknown) (unknown) (no (unknown) (unknown) Oxygen Flow Rate 0 (units (unknown) date) unknown) (unknown) (no (unknown) (unknown) PFSH (units (unkno wn) date) unknown) (unknown) (no (unknown) (unknown) Patient currently (units (unknown) date) being treated with unknown) vancomycin.? This is essentially (unknown) (no (unknown) (unknown) Patient is currently (uni ts (unknown) date) recovering from unknown) biventricular heart catheterization (unknown) (no (unknown) (unknown) Patient is? (units (un known) date) inpatient service due unknown) to the severity of disease, risks of further (unknown) (no (unknown) (unknown) Patient received 2 (units (unknown) date) units PRBC in the unknown) emergency department increasing his H+H (unknown) (no (unknown) (unknown) Patient to follow-up (uni ts (unknown) date) with wound care unknown) specialist as an outpatient. Appears to (unknown) (no (unknown) (unknown) Patient was fluid (units (unknown) date) resuscitated in the unknown) emergency department 2 L (unknown) (no (unknown) (unknown) Patient's proBNP was (uni ts (unknown) date) almost 7200.? unknown) Improved today at 5570. (unknown) (no (unknown) (unknown) Patient's (units (unkn own) date) rivaroxaban, aspirin unknown) and clopidogrel are being held. No evidence of (unknown) (no (unknown) (unknown) Patient: (units (unkno wn) date) Osmel Baxter MR#: unknown) M000 (unknown) (no (unknown) (unknown) Plt Count 164 (units ( unknown) date) unknown) (unknown) (no (unknown) (unknown) Potassium 3.8 (units ( unknown) date) unknown) (unknown) (no (unknown) (unknown) Provider: (units (unkn own) date) Chary Ramirez MD unknown) (unknown) (no (unknown) (unknown) Pulse Oximetry 93 (units (unknown) date) unknown) (unknown) (no (unknown) (unknown) Pulse Rate 65 (units ( unknown) date) unknown) (unknown) (no (unknown) (unknown) Quality (units (unkno wn) date) unknown) (unknown) (no (unknown) (unknown) RBC 3.33 L (units (unk nown) date) unknown) (unknown) (no (unknown) (unknown) RBC Morphology See (units (unknown) date) below unknown) (unknown) (no (unknown) (unknown) RDW 23.6 H (units (unk nown) date) unknown) (unknown) (no (unknown) (unknown) Respiratory Rate 18 (unit s (unknown) date) unknown) (unknown) (no (unknown) (unknown) Result Diagrams: (units (unknown) date) 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) (unknown) (no (unknown) (unknown) Signed By: (units (unk nown) date) unknown) (unknown) (no (unknown) (unknown) Sleep apnea (units (un known) date) unknown) (unknown) (no (unknown) (unknown) Smoking Status: (units (unknown) date) Former smoker unknown) (unknown) (no (unknown) (unknown) Social History (units (unknown) date) (Updated 09/25/18 @ unknown) 11:17 by Telma Dickey DO) (unknown) (no (unknown) (unknown) Sodium 133 L (units (u nknown) date) unknown) (unknown) (no (unknown) (unknown) Surgical History (units (unknown) date) (Reviewed 01/27/22 @ unknown) 07:53 by Tony Aceves MD) (unknown) (no (unknown) (unknown) Temperature 97.7 F (units (unknown) date) unknown) (unknown) (no (unknown) (unknown) Time Spent With (units (unknown) date) Patient unknown) (unknown) (no (unknown) (unknown) Total Bilirubin 1.4 (unit s (unknown) date) H unknown) (unknown) (no (unknown) (unknown) Total Protein 6.8 (units (unknown) date) unknown) (unknown) (no (unknown) (unknown) Troponin I 0.029 (units (unknown) date) unknown) (unknown) (no (unknown) (unknown) VTE (units (unkno wn) date) unknown) (unknown) (no (unknown) (unknown) VTE Prophylaxis: (units (unknown) date) Wells risk score unknown) 1.5.? 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 Has (unknown) (no (unknown) (unknown) [Embedded Image Not (unit s (unknown) date) Available] unknown) (unknown) (no (unknown) (unknown) admission (units (unkn own) date) unknown) (unknown) (no (unknown) (unknown) and clopidogrel. (units (unknown) date) unknown) (unknown) (no (unknown) (unknown) appears to be triple (uni ts (unknown) date) anti-platelet unknown) therapy, present on admission.? Causing (unknown) (no (unknown) (unknown) contraindicated in (units (unknown) date) the setting of active unknown) bleeding will do SCD? (unknown) (no (unknown) (unknown) daily.? (units (unkno wn) date) Hydrochlorothiazide unknown) is not been ordered.? Will add torsemide. (unknown) (no (unknown) (unknown) details: x 9 (uni ts (unknown) date) months unknown) (unknown) (no (unknown) (unknown) disease progression (unit s (unknown) date) and this stay is unknown) expected to exceed 2 midnights. (unknown) (no (unknown) (unknown) evaluate.? Consult (units (unknown) date) completed by wound unknown) care nurse. Continue current treatment. (unknown) (no (unknown) (unknown) from 6.7-7.9 and (units (unknown) date) 20.8-24.5 unknown) respectively.? Today hemoglobin stable at 8.1.? This (unknown) (no (unknown) (unknown) further bleeding. (units (unknown) date) Hemoglobin stable. unknown) Restart aspirin and rivaroxaban tomorrow. (unknown) (no (unknown) (unknown) have no infection (units (unknown) date) and is proceeding unknown) with healing. (unknown) (no (unknown) (unknown) hematoma left leg.? (unit s (unknown) date) With skin compromise unknown) over the hematoma will have wound care (unknown) (no (unknown) (unknown) hold due to renal (units (unknown) date) function. unknown) (unknown) (no (unknown) (unknown) household members: (units (unknown) date) children unknown) (unknown) (no (unknown) (unknown) hydrochlorothiazide (unit s (unknown) date) and torsemide.? Will unknown) increase daily furosemide to 40 mg (unknown) (no (unknown) (unknown) is stable.? If (units (unknown) date) remains consistently unknown) stable can reinitiate rivaroxaban, aspirin (unknown) (no (unknown) (unknown) marital status: (units (unknown) date) unknown) (unknown) (no (unknown) (unknown) not been evaluated (units (unknown) date) yet.? Would be best unknown) to have consult and treatment plan prior (unknown) (no (unknown) (unknown) office. (units (unkno wn) date) unknown) (unknown) (no (unknown) (unknown) patient?s care is (units (unknown) date) appreciated.? This unknown) has been completed. (unknown) (no (unknown) (unknown) prophylactic. (units ( unknown) date) unknown) (unknown) (no (unknown) (unknown) to discharge.? (units (unknown) date) Needed plan for care. unknown) (unknown) (no (unknown) (unknown) today; this time is (unit s (unknown) date) exclusive of unknown) procedural time. (unknown) (no (unknown) (unknown) treatment.? (units (un known) date) unknown) Result panel 77 (unknown) (no (unknown) (unknown) (no value) (units (unk nown) date) unknown) (unknown) (no (unknown) (unknown) Date of Service: (units (unknown) date) 01/27/22 unknown) (unknown) (no (unknown) (unknown) (no value) (units (unk nown) date) unknown) (unknown) (no (unknown) (unknown) - (units (unkno wn) date) unknown) (unknown) (no (unknown) (unknown) 01/29/22 05:08 (units (unknown) date) unknown) (unknown) (no (unknown) (unknown) [facility] [id number] (uni ts (unknown) date) [address] unknown) [place] [address] (unknown) (no (unknown) (unknown) Laboratory Results - (uni ts (unknown) date) last 24 hr unknown) (unknown) (no (unknown) (unknown) Progress Note (units ( unknown) date) unknown) (unknown) (no (unknown) (unknown) (no value) (units (unk nown) date) unknown) (unknown) (no (unknown) (unknown) 05:08 05:08 (units (un known) date) unknown) (unknown) (no (unknown) (unknown) 01/29/22 01/29/22 (units (unknown) date) unknown) (unknown) (no (unknown) (unknown) 01/29/22 (units (unkno wn) date) unknown) (unknown) (no (unknown) (unknown) enzymes, Mag, PT/INR (uni ts (unknown) date) unknown) (unknown) (no (unknown) (unknown) re-initiation of (units (unknown) date) rivaroxaban and unknown) aspirin and clopidogrel prior to discharge. (unknown) (no (unknown) (unknown) (past 8 hours): (units (unknown) date) unknown) (unknown) (no (unknown) (unknown) 1. Acute blood loss (unit s (unknown) date) anemia likely unknown) secondary to over coagulation with what (unknown) (no (unknown) (unknown) 11:32 (units (unkno wn) date) unknown) (unknown) (no (unknown) (unknown) 2. Acute kidney (units (unknown) date) injury likely unknown) secondary to blood loss anemia, present on (unknown) (no (unknown) (unknown) 3. Acute (units (unkno wn) date) decompensated heart unknown) failure with reduced ejection fraction, present on (unknown) (no (unknown) (unknown) [id number] (units (unkno wn) date) unknown) (unknown) (no (unknown) (unknown) 4. Probable left (units (unknown) date) knee cellulitis, unknown) acute, present on admission (unknown) (no (unknown) (unknown) 5. Coronary artery (units (unknown) date) disease, chronic unknown) (unknown) (no (unknown) (unknown) 6. Diabetes type 2, (unit s (unknown) date) appears to be well unknown) controlled (unknown) (no (unknown) (unknown) 7. Mobilization.? (units (unknown) date) Beginning to mobilize unknown) with physical therapy.? Continue with (unknown) (no (unknown) (unknown) ?A1c is 6.5 (units (un known) date) unknown) (unknown) (no (unknown) (unknown) ALT 16 (units (unkno wn) date) unknown) (unknown) (no (unknown) (unknown) AST 22 (units (unkno wn) date) unknown) (unknown) (no (unknown) (unknown) Age/Sex: 76 / M (units (unknown) date) unknown) (unknown) (no (unknown) (unknown) Albumin 3.3 L (units ( unknown) date) unknown) (unknown) (no (unknown) (unknown) Albumin/Globulin (units (unknown) date) Ratio 0.9 L unknown) (unknown) (no (unknown) (unknown) Alkaline Phosphatase (uni ts (unknown) date) 119 unknown) (unknown) (no (unknown) (unknown) Anisocytosis 3+ H (units (unknown) date) unknown) (unknown) (no (unknown) (unknown) Anticoagulated (units (unknown) date) unknown) (unknown) (no (unknown) (unknown) Assessment + Plan (units (unknown) date) unknown) (unknown) (no (unknown) (unknown) Assessment + Plan (units (unknown) date) narrative: unknown) (unknown) (no (unknown) (unknown) Assessment + Plan (units (unknown) date) narrative: unknown) (unknown) (no (unknown) (unknown) Atrial fibrillation (unit s (unknown) date) unknown) (unknown) (no (unknown) (unknown) BUN 51 H (units (unkno wn) date) unknown) (unknown) (no (unknown) (unknown) BUN/Creatinine Ratio (uni ts (unknown) date) 25.2 H unknown) (unknown) (no (unknown) (unknown) Baso # (Auto) 0 (units (unknown) date) unknown) (unknown) (no (unknown) (unknown) Baso % (Auto) 0.6 (units (unknown) date) unknown) (unknown) (no (unknown) (unknown) Blood Pressure (units (unknown) date) 105/45 L unknown) (unknown) (no (unknown) (unknown) Calcium 8.4 (units (un known) date) unknown) (unknown) (no (unknown) (unknown) Carb controlled diet (uni ts (unknown) date) with a.c. 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 (unknown) (no (unknown) (unknown) Chloride 98 (units (un known) date) unknown) (unknown) (no (unknown) (unknown) Closely monitor (units (unknown) date) renal function and unknown) hold nephrotoxic medications (Lisinopril).? (unknown) (no (unknown) (unknown) Code status: Full (units (unknown) date) code as discussed unknown) with the patient who identifies his son, (unknown) (no (unknown) (unknown) Consultants: (units (unknown) date) [facility] unknown) Surgery,? care and involvement in the (unknown) (no (unknown) (unknown) Continue carvedilol (unit s (unknown) date) 25 mg p.o. b.i.d., unknown) patient receives in 12.5 mg tablets (unknown) (no (unknown) (unknown) Continue home dose (units (unknown) date) of atorvastatin 40 mg unknown) p.o. at bedtime (unknown) (no (unknown) (unknown) Coronary artery (units (unknown) date) disease unknown) (unknown) (no (unknown) (unknown) Creatinine 2.02 H (units (unknown) date) unknown) (unknown) (no (unknown) (unknown) Critical Care time: (unit s (unknown) date) unknown) (unknown) (no (unknown) (unknown) : 1945 (units (unknown) date) Acct:[id number] unknown) (unknown) (no (unknown) (unknown) Deep Vein (units (unkn own) date) Thrombosis/Pulmonary unknown) Embolism Present on Admission: No (unknown) (no (unknown) (unknown) Diabetes (units (unkno wn) date) unknown) (unknown) (no (unknown) (unknown) Dispo: Unknown at (units (unknown) date) this time.? Need unknown) wound care plan, stability of hemoglobin with (unknown) (no (unknown) (unknown) David his surrogate (units (unknown) date) and POA. unknown) (unknown) (no (unknown) (unknown) Dyslipidemia (units (u nknown) date) unknown) (unknown) (no (unknown) (unknown) Eos # (Auto) 200 (units (unknown) date) unknown) (unknown) (no (unknown) (unknown) Eos % (Auto) 3.4 (units (unknown) date) unknown) (unknown) (no (unknown) (unknown) Estimated GFR 34 L (units (unknown) date) unknown) (unknown) (no (unknown) (unknown) Exam (units (unkno wn) date) unknown) (unknown) (no (unknown) (unknown) FEN: IV fluids: (units (unknown) date) saline lock, diet: unknown) carb controlled diet, labs: CBC, C/BMP, liver (unknown) (no (unknown) (unknown) Family History (units (unknown) date) (Reviewed 01/27/22 @ unknown) 07:53 by Tony Aceves MD) (unknown) (no (unknown) (unknown) GFR improved to 34 (units (unknown) date) today.? Renal unknown) function is improving.? Follow labs. (unknown) (no (unknown) (unknown) Globulin 3.5 (units (u nknown) date) unknown) (unknown) (no (unknown) (unknown) Glucose 114 H (units ( unknown) date) unknown) (unknown) (no (unknown) (unknown) Hct 26.2 L (units (unk nown) date) unknown) (unknown) (no (unknown) (unknown) He is currently (units (unknown) date) saline lock due to unknown) volume overload (unknown) (no (unknown) (unknown) He will receive his (unit s (unknown) date) home dose of Lantus unknown) 30 units b.i.d. Metformin remains on (unknown) (no (unknown) (unknown) Hgb 8.6 L (units (unkn own) date) unknown) (unknown) (no (unknown) (unknown) Hx of (units (unkno wn) date) cholecystectomy unknown) (unknown) (no (unknown) (unknown) Hypertension (units (u nknown) date) unknown) (unknown) (no (unknown) (unknown) I spent a total of (units (unknown) date) [] minutes of unknown) critical care time on this patient's care (unknown) (no (unknown) (unknown) In the ER, he (units ( unknown) date) received IV Lasix 80 unknown) mg in addition to his home oral dose of (unknown) (no (unknown) (unknown) Labs (units (unkno wn) date) unknown) (unknown) (no (unknown) (unknown) Labs: (units (unkno wn) date) unknown) (unknown) (no (unknown) (unknown) Low-dose (units (unkno wn) date) correctional scale unknown) insulin and adjust as needed (unknown) (no (unknown) (unknown) Lymph # (Auto) 800 L (uni ts (unknown) date) unknown) (unknown) (no (unknown) (unknown) Lymph % (Auto) 15.8 (unit s (unknown) date) L unknown) (unknown) (no (unknown) (unknown) MCH 25.9 L (units (unk nown) date) unknown) (unknown) (no (unknown) (unknown) MCHC 32.8 (units (unkn own) date) unknown) (unknown) (no (unknown) (unknown) MCV 78.8 L (units (unk nown) date) unknown) (unknown) (no (unknown) (unknown) Medical History (units (unknown) date) (Reviewed 01/27/22 @ unknown) 07:53 by Tony Aceves MD) (unknown) (no (unknown) (unknown) Lajas # (Auto) 600 (units (unknown) date) unknown) (unknown) (no (unknown) (unknown) Lajas % (Auto) 12.0 (units (unknown) date) unknown) (unknown) (no (unknown) (unknown) NT-Pro-B Natriuret (units (unknown) date) Pep 5570 H unknown) (unknown) (no (unknown) (unknown) Neut # (Auto) 3300 (units (unknown) date) unknown) (unknown) (no (unknown) (unknown) Neut % (Auto) 68.2 (units (unknown) date) unknown) (unknown) (no (unknown) (unknown) Objective (units (unkn own) date) unknown) (unknown) (no (unknown) (unknown) Orthopedic surgery (units (unknown) date) has been consulted unknown) and seen the patient. (unknown) (no (unknown) (unknown) Other Adopted (units ( unknown) date) unknown) (unknown) (no (unknown) (unknown) Oxygen Delivery (units (unknown) date) Method Room Air unknown) (unknown) (no (unknown) (unknown) Oxygen Flow Rate 0 (units (unknown) date) unknown) (unknown) (no (unknown) (unknown) Oxygen Flow Rate 0 (units (unknown) date) unknown) (unknown) (no (unknown) (unknown) PFSH (units (unkno wn) date) unknown) (unknown) (no (unknown) (unknown) Patient currently (units (unknown) date) being treated with unknown) vancomycin.? This is essentially (unknown) (no (unknown) (unknown) Patient is currently (uni ts (unknown) date) recovering from unknown) biventricular heart catheterization (unknown) (no (unknown) (unknown) Patient is? (units (un known) date) inpatient service due unknown) to the severity of disease, risks of further (unknown) (no (unknown) (unknown) Patient received 2 (units (unknown) date) units PRBC in the unknown) emergency department increasing his H+H (unknown) (no (unknown) (unknown) Patient to follow-up (uni ts (unknown) date) with wound care unknown) specialist as an outpatient. Appears to (unknown) (no (unknown) (unknown) Patient was fluid (units (unknown) date) resuscitated in the unknown) emergency department 2 L (unknown) (no (unknown) (unknown) Patient's proBNP was (uni ts (unknown) date) almost 7200.? unknown) Improved today at 5570. (unknown) (no (unknown) (unknown) Patient's (units (unkn own) date) rivaroxaban, aspirin unknown) and clopidogrel are being held. No evidence of (unknown) (no (unknown) (unknown) Patient: (units (unkno wn) date) Osmel Baxter MR#: unknown) M000 (unknown) (no (unknown) (unknown) Plt Count 164 (units ( unknown) date) unknown) (unknown) (no (unknown) (unknown) Potassium 3.8 (units ( unknown) date) unknown) (unknown) (no (unknown) (unknown) Provider: (units (unkn own) date) Chary Ramirez MD unknown) (unknown) (no (unknown) (unknown) Pulse Oximetry 93 (units (unknown) date) unknown) (unknown) (no (unknown) (unknown) Pulse Rate 65 (units ( unknown) date) unknown) (unknown) (no (unknown) (unknown) Quality (units (unkno wn) date) unknown) (unknown) (no (unknown) (unknown) RBC 3.33 L (units (unk nown) date) unknown) (unknown) (no (unknown) (unknown) RBC Morphology See (units (unknown) date) below unknown) (unknown) (no (unknown) (unknown) RDW 23.6 H (units (unk nown) date) unknown) (unknown) (no (unknown) (unknown) Respiratory Rate 18 (unit s (unknown) date) unknown) (unknown) (no (unknown) (unknown) Result Diagrams: (units (unknown) date) 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) (unknown) (no (unknown) (unknown) Signed By: (units (unk nown) date) unknown) (unknown) (no (unknown) (unknown) Sleep apnea (units (un known) date) unknown) (unknown) (no (unknown) (unknown) Smoking Status: (units (unknown) date) Former smoker unknown) (unknown) (no (unknown) (unknown) Social History (units (unknown) date) (Updated 09/25/18 @ unknown) 11:17 by Telma Dickey DO) (unknown) (no (unknown) (unknown) Sodium 133 L (units (u nknown) date) unknown) (unknown) (no (unknown) (unknown) Surgical History (units (unknown) date) (Reviewed 01/27/22 @ unknown) 07:53 by Tony Aceves MD) (unknown) (no (unknown) (unknown) Temperature 97.7 F (units (unknown) date) unknown) (unknown) (no (unknown) (unknown) Time Spent With (units (unknown) date) Patient unknown) (unknown) (no (unknown) (unknown) Total Bilirubin 1.4 (unit s (unknown) date) H unknown) (unknown) (no (unknown) (unknown) Total Protein 6.8 (units (unknown) date) unknown) (unknown) (no (unknown) (unknown) Troponin I 0.029 (units (unknown) date) unknown) (unknown) (no (unknown) (unknown) VTE (units (unkno wn) date) unknown) (unknown) (no (unknown) (unknown) VTE Prophylaxis: (units (unknown) date) Wells risk score unknown) 1.5.? Pharmacological VTE prophylaxis is (unknown) (no (unknown) (unknown) Vital Signs (units (un known) date) unknown) (unknown) (no (unknown) (unknown) WBC 4.9 (units (unkno wn) date) unknown) (unknown) (no (unknown) (unknown) Wound care consulted (uni ts (unknown) date) due to compromised unknown) skin at site of hematoma left leg.? Has (unknown) (no (unknown) (unknown) [Embedded Image Not (unit s (unknown) date) Available] unknown) (unknown) (no (unknown) (unknown) admission (units (unkn own) date) unknown) (unknown) (no (unknown) (unknown) and clopidogrel. (units (unknown) date) unknown) (unknown) (no (unknown) (unknown) appears to be triple (uni ts (unknown) date) anti-platelet unknown) therapy, present on admission.? Causing (unknown) (no (unknown) (unknown) contraindicated in (units (unknown) date) the setting of active unknown) bleeding will do SCD? (unknown) (no (unknown) (unknown) daily.? (units (unkno wn) date) Hydrochlorothiazide unknown) is not been ordered.? Will add torsemide. (unknown) (no (unknown) (unknown) details: x 9 (uni ts (unknown) date) months unknown) (unknown) (no (unknown) (unknown) disease progression (unit s (unknown) date) and this stay is unknown) expected to exceed 2 midnights. (unknown) (no (unknown) (unknown) evaluate.? Consult (units (unknown) date) completed by wound unknown) care nurse. Continue current treatment. (unknown) (no (unknown) (unknown) from 6.7-7.9 and (units (unknown) date) 20.8-24.5 unknown) respectively.? Today hemoglobin stable at 8.1.? This (unknown) (no (unknown) (unknown) further bleeding. (units (unknown) date) Hemoglobin stable. unknown) Restart aspirin and rivaroxaban tomorrow. (unknown) (no (unknown) (unknown) have no infection (units (unknown) date) and is proceeding unknown) with healing. (unknown) (no (unknown) (unknown) hematoma left leg.? (unit s (unknown) date) With skin compromise unknown) over the hematoma will have wound care (unknown) (no (unknown) (unknown) hold due to renal (units (unknown) date) function. unknown) (unknown) (no (unknown) (unknown) household members: (units (unknown) date) children unknown) (unknown) (no (unknown) (unknown) hydrochlorothiazide (unit s (unknown) date) and torsemide.? Will unknown) increase daily furosemide to 40 mg (unknown) (no (unknown) (unknown) is stable.? If (units (unknown) date) remains consistently unknown) stable can reinitiate rivaroxaban, aspirin (unknown) (no (unknown) (unknown) marital status: (units (unknown) date) unknown) (unknown) (no (unknown) (unknown) not been evaluated (units (unknown) date) yet.? Would be best unknown) to have consult and treatment plan prior (unknown) (no (unknown) (unknown) patient?s care is (units (unknown) date) appreciated.? This unknown) has been completed. (unknown) (no (unknown) (unknown) prophylactic. Can (units (unknown) date) discontinue. unknown) (unknown) (no (unknown) (unknown) to discharge.? (units (unknown) date) Needed plan for care. unknown) (unknown) (no (unknown) (unknown) today; this time is (unit s (unknown) date) exclusive of unknown) procedural time. (unknown) (no (unknown) (unknown) treatment.? (units (un known) date) unknown) Result panel 78 (unknown) (no (unknown) (unknown) (no value) (units (unk nown) date) unknown) (unknown) (no (unknown) (unknown) Date of Service: (units (unknown) date) 01/27/22 unknown) (unknown) (no (unknown) (unknown) (no value) (units (unk nown) date) unknown) (unknown) (no (unknown) (unknown) - (units (unkno wn) date) unknown) (unknown) (no (unknown) (unknown) 01/29/22 05:08 (units (unknown) date) unknown) (unknown) (no (unknown) (unknown) [facility] [address] (uni ts (unknown) date) [address] unknown) [place] [address] (unknown) (no (unknown) (unknown) Laboratory Results - (uni ts (unknown) date) last 24 hr unknown) (unknown) (no (unknown) (unknown) Progress Note (units ( unknown) date) unknown) (unknown) (no (unknown) (unknown) (no value) (units (unk nown) date) unknown) (unknown) (no (unknown) (unknown) 05:08 05:08 (units (un known) date) unknown) (unknown) (no (unknown) (unknown) 01/29/22 01/29/22 (units (unknown) date) unknown) (unknown) (no (unknown) (unknown) 01/29/22 (units (unkno wn) date) unknown) (unknown) (no (unknown) (unknown) enzymes, Mag, PT/INR (uni ts (unknown) date) unknown) (unknown) (no (unknown) (unknown) re-initiation of (units (unknown) date) rivaroxaban and unknown) aspirin and clopidogrel prior to discharge. (unknown) (no (unknown) (unknown) (past 8 hours): (units (unknown) date) unknown) (unknown) (no (unknown) (unknown) 1. Acute blood loss (unit s (unknown) date) anemia likely unknown) secondary to over coagulation with what (unknown) (no (unknown) (unknown) 11:32 (units (unkno wn) date) unknown) (unknown) (no (unknown) (unknown) 2. Acute kidney (units (unknown) date) injury likely unknown) secondary to blood loss anemia, present on (unknown) (no (unknown) (unknown) 3. Acute (units (unkno wn) date) decompensated heart unknown) failure with reduced ejection fraction, present on (unknown) (no (unknown) (unknown) [id number] (units (unkno wn) date) unknown) (unknown) (no (unknown) (unknown) 4. Probable left (units (unknown) date) knee cellulitis, unknown) acute, present on admission (unknown) (no (unknown) (unknown) 5. Coronary artery (units (unknown) date) disease, chronic unknown) (unknown) (no (unknown) (unknown) 6. Diabetes type 2, (unit s (unknown) date) appears to be well unknown) controlled (unknown) (no (unknown) (unknown) 7. Mobilization.? (units (unknown) date) Beginning to mobilize unknown) with physical therapy.? Continue with (unknown) (no (unknown) (unknown) ?A1c is 6.5 (units (un known) date) unknown) (unknown) (no (unknown) (unknown) ALT 16 (units (unkno wn) date) unknown) (unknown) (no (unknown) (unknown) AST 22 (units (unkno wn) date) unknown) (unknown) (no (unknown) (unknown) Age/Sex: 76 / M (units (unknown) date) unknown) (unknown) (no (unknown) (unknown) Albumin 3.3 L (units ( unknown) date) unknown) (unknown) (no (unknown) (unknown) Albumin/Globulin (units (unknown) date) Ratio 0.9 L unknown) (unknown) (no (unknown) (unknown) Alkaline Phosphatase (uni ts (unknown) date) 119 unknown) (unknown) (no (unknown) (unknown) Anisocytosis 3+ H (units (unknown) date) unknown) (unknown) (no (unknown) (unknown) Anticoagulated (units (unknown) date) unknown) (unknown) (no (unknown) (unknown) Assessment + Plan (units (unknown) date) unknown) (unknown) (no (unknown) (unknown) Assessment + Plan (units (unknown) date) narrative: unknown) (unknown) (no (unknown) (unknown) Assessment + Plan (units (unknown) date) narrative: unknown) (unknown) (no (unknown) (unknown) Atrial fibrillation (unit s (unknown) date) unknown) (unknown) (no (unknown) (unknown) BUN 51 H (units (unkno wn) date) unknown) (unknown) (no (unknown) (unknown) BUN/Creatinine Ratio (uni ts (unknown) date) 25.2 H unknown) (unknown) (no (unknown) (unknown) Baso # (Auto) 0 (units (unknown) date) unknown) (unknown) (no (unknown) (unknown) Baso % (Auto) 0.6 (units (unknown) date) unknown) (unknown) (no (unknown) (unknown) Blood Pressure (units (unknown) date) 105/45 L unknown) (unknown) (no (unknown) (unknown) Calcium 8.4 (units (un known) date) unknown) (unknown) (no (unknown) (unknown) Carb controlled diet (uni ts (unknown) date) with a.c. 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 (unknown) (no (unknown) (unknown) Chloride 98 (units (un known) date) unknown) (unknown) (no (unknown) (unknown) Closely monitor (units (unknown) date) renal function and unknown) hold nephrotoxic medications (Lisinopril).? (unknown) (no (unknown) (unknown) Code status: Full (units (unknown) date) code as discussed unknown) with the patient who identifies his son, (unknown) (no (unknown) (unknown) Consultants: (units (unknown) date) [facility] unknown) Surgery,? care and involvement in the (unknown) (no (unknown) (unknown) Continue carvedilol (unit s (unknown) date) 25 mg p.o. b.i.d., unknown) patient receives in 12.5 mg tablets (unknown) (no (unknown) (unknown) Continue home dose (units (unknown) date) of atorvastatin 40 mg unknown) p.o. at bedtime (unknown) (no (unknown) (unknown) Coronary artery (units (unknown) date) disease unknown) (unknown) (no (unknown) (unknown) Creatinine 2.02 H (units (unknown) date) unknown) (unknown) (no (unknown) (unknown) Critical Care time: (unit s (unknown) date) unknown) (unknown) (no (unknown) (unknown) : 1945 (units (unknown) date) Acct:[id number] unknown) (unknown) (no (unknown) (unknown) Deep Vein (units (unkn own) date) Thrombosis/Pulmonary unknown) Embolism Present on Admission: No (unknown) (no (unknown) (unknown) Diabetes (units (unkno wn) date) unknown) (unknown) (no (unknown) (unknown) Dispo: Unknown at (units (unknown) date) this time.? Need unknown) wound care plan, stability of hemoglobin with (unknown) (no (unknown) (unknown) David his surrogate (units (unknown) date) and POA. unknown) (unknown) (no (unknown) (unknown) Dyslipidemia (units (u nknown) date) unknown) (unknown) (no (unknown) (unknown) Eos # (Auto) 200 (units (unknown) date) unknown) (unknown) (no (unknown) (unknown) Eos % (Auto) 3.4 (units (unknown) date) unknown) (unknown) (no (unknown) (unknown) Estimated GFR 34 L (units (unknown) date) unknown) (unknown) (no (unknown) (unknown) Exam (units (unkno wn) date) unknown) (unknown) (no (unknown) (unknown) FEN: IV fluids: (units (unknown) date) saline lock, diet: unknown) carb controlled diet, labs: CBC, C/BMP, liver (unknown) (no (unknown) (unknown) Family History (units (unknown) date) (Reviewed 01/27/22 @ unknown) 07:53 by Tony Aceves MD) (unknown) (no (unknown) (unknown) GFR improved to 34 (units (unknown) date) today.? Renal unknown) function is improving.? Follow labs. (unknown) (no (unknown) (unknown) Globulin 3.5 (units (u nknown) date) unknown) (unknown) (no (unknown) (unknown) Glucose 114 H (units ( unknown) date) unknown) (unknown) (no (unknown) (unknown) Hct 26.2 L (units (unk nown) date) unknown) (unknown) (no (unknown) (unknown) He is currently (units (unknown) date) saline lock due to unknown) volume overload (unknown) (no (unknown) (unknown) He will receive his (unit s (unknown) date) home dose of Lantus unknown) 30 units b.i.d. Metformin remains on (unknown) (no (unknown) (unknown) Hgb 8.6 L (units (unkn own) date) unknown) (unknown) (no (unknown) (unknown) Hx of (units (unkno wn) date) cholecystectomy unknown) (unknown) (no (unknown) (unknown) Hypertension (units (u nknown) date) unknown) (unknown) (no (unknown) (unknown) I spent a total of (units (unknown) date) [] minutes of unknown) critical care time on this patient's care (unknown) (no (unknown) (unknown) In the ER, he (units ( unknown) date) received IV Lasix 80 unknown) mg in addition to his home oral dose of (unknown) (no (unknown) (unknown) Labs (units (unkno wn) date) unknown) (unknown) (no (unknown) (unknown) Labs: (units (unkno wn) date) unknown) (unknown) (no (unknown) (unknown) Low-dose (units (unkno wn) date) correctional scale unknown) insulin and adjust as needed (unknown) (no (unknown) (unknown) Lymph # (Auto) 800 L (uni ts (unknown) date) unknown) (unknown) (no (unknown) (unknown) Lymph % (Auto) 15.8 (unit s (unknown) date) L unknown) (unknown) (no (unknown) (unknown) MCH 25.9 L (units (unk nown) date) unknown) (unknown) (no (unknown) (unknown) MCHC 32.8 (units (unkn own) date) unknown) (unknown) (no (unknown) (unknown) MCV 78.8 L (units (unk nown) date) unknown) (unknown) (no (unknown) (unknown) Medical History (units (unknown) date) (Reviewed 01/27/22 @ unknown) 07:53 by Tony Aceves MD) (unknown) (no (unknown) (unknown) Lajas # (Auto) 600 (units (unknown) date) unknown) (unknown) (no (unknown) (unknown) Lajas % (Auto) 12.0 (units (unknown) date) unknown) (unknown) (no (unknown) (unknown) NT-Pro-B Natriuret (units (unknown) date) Pep 5570 H unknown) (unknown) (no (unknown) (unknown) Neut # (Auto) 3300 (unit s (unknown) date) unknown) (unknown) (no (unknown) (unknown) Neut % (Auto) 68.2 (units (unknown) date) unknown) (unknown) (no (unknown) (unknown) Objective (units (unkn own) date) unknown) (unknown) (no (unknown) (unknown) Orthopedic surgery (units (unknown) date) has been consulted unknown) and seen the patient. (unknown) (no (unknown) (unknown) Other Adopted (units ( unknown) date) unknown) (unknown) (no (unknown) (unknown) Oxygen Delivery (units (unknown) date) Method Room Air unknown) (unknown) (no (unknown) (unknown) Oxygen Flow Rate 0 (units (unknown) date) unknown) (unknown) (no (unknown) (unknown) Oxygen Flow Rate 0 (units (unknown) date) unknown) (unknown) (no (unknown) (unknown) PFSH (units (unkno wn) date) unknown) (unknown) (no (unknown) (unknown) Patient currently (units (unknown) date) being treated with unknown) vancomycin.? This is essentially (unknown) (no (unknown) (unknown) Patient is currently (uni ts (unknown) date) recovering from unknown) biventricular heart catheterization (unknown) (no (unknown) (unknown) Patient is? (units (un known) date) inpatient service due unknown) to the severity of disease, risks of further (unknown) (no (unknown) (unknown) Patient received 2 (units (unknown) date) units PRBC in the unknown) emergency department increasing his H+H (unknown) (no (unknown) (unknown) Patient to follow-up (uni ts (unknown) date) with wound care unknown) specialist as an outpatient. Appears to (unknown) (no (unknown) (unknown) Patient was fluid (units (unknown) date) resuscitated in the unknown) emergency department 2 L (unknown) (no (unknown) (unknown) Patient's proBNP was (uni ts (unknown) date) almost 7200.? unknown) Improved today at 5570. (unknown) (no (unknown) (unknown) Patient's (units (unkn own) date) rivaroxaban, aspirin unknown) and clopidogrel are being held. No evidence of (unknown) (no (unknown) (unknown) Patient: (units (unkno wn) date) Osmel Baxter MR#: unknown) M000 (unknown) (no (unknown) (unknown) Plt Count 164 (units ( unknown) date) unknown) (unknown) (no (unknown) (unknown) Potassium 3.8 (units ( unknown) date) unknown) (unknown) (no (unknown) (unknown) Provider: (units (unkn own) date) Chary Ramirez MD unknown) (unknown) (no (unknown) (unknown) Pulse Oximetry 93 (units (unknown) date) unknown) (unknown) (no (unknown) (unknown) Pulse Rate 65 (units ( unknown) date) unknown) (unknown) (no (unknown) (unknown) Quality (units (unkno wn) date) unknown) (unknown) (no (unknown) (unknown) RBC 3.33 L (units (unk nown) date) unknown) (unknown) (no (unknown) (unknown) RBC Morphology See (units (unknown) date) below unknown) (unknown) (no (unknown) (unknown) RDW 23.6 H (units (unk nown) date) unknown) (unknown) (no (unknown) (unknown) Respiratory Rate 18 (unit s (unknown) date) unknown) (unknown) (no (unknown) (unknown) Result Diagrams: (units (unknown) date) 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) (unknown) (no (unknown) (unknown) Signed By: (units (unk nown) date) unknown) (unknown) (no (unknown) (unknown) Sleep apnea (units (un known) date) unknown) (unknown) (no (unknown) (unknown) Smoking Status: (units (unknown) date) Former smoker unknown) (unknown) (no (unknown) (unknown) Social History (units (unknown) date) (Updated 09/25/18 @ unknown) 11:17 by Telma Dickey DO) (unknown) (no (unknown) (unknown) Sodium 133 L (units (u nknown) date) unknown) (unknown) (no (unknown) (unknown) Surgical History (units (unknown) date) (Reviewed 01/27/22 @ unknown) 07:53 by Tony Aceves MD) (unknown) (no (unknown) (unknown) Temperature 97.7 F (units (unknown) date) unknown) (unknown) (no (unknown) (unknown) Time Spent With (units (unknown) date) Patient unknown) (unknown) (no (unknown) (unknown) Total Bilirubin 1.4 (unit s (unknown) date) H unknown) (unknown) (no (unknown) (unknown) Total Protein 6.8 (units (unknown) date) unknown) (unknown) (no (unknown) (unknown) Troponin I 0.029 (units (unknown) date) unknown) (unknown) (no (unknown) (unknown) VTE (units (unkno wn) date) unknown) (unknown) (no (unknown) (unknown) VTE Prophylaxis: (units (unknown) date) Wells risk score unknown) 1.5.? Pharmacological VTE prophylaxis is (unknown) (no (unknown) (unknown) Vital Signs (units (un known) date) unknown) (unknown) (no (unknown) (unknown) WBC 4.9 (units (unkno wn) date) unknown) (unknown) (no (unknown) (unknown) Wound care consulted (uni ts (unknown) date) due to compromised unknown) skin at site of hematoma left leg.? Has (unknown) (no (unknown) (unknown) [Embedded Image Not (unit s (unknown) date) Available] unknown) (unknown) (no (unknown) (unknown) admission (units (unkn own) date) unknown) (unknown) (no (unknown) (unknown) and clopidogrel. (units (unknown) date) unknown) (unknown) (no (unknown) (unknown) appears to be triple (uni ts (unknown) date) anti-platelet unknown) therapy, present on admission.? Causing (unknown) (no (unknown) (unknown) consult completed. (units (unknown) date) unknown) (unknown) (no (unknown) (unknown) contraindicated in (units (unknown) date) the setting of active unknown) bleeding will do SCD? (unknown) (no (unknown) (unknown) daily.? (units (unkno wn) date) Hydrochlorothiazide unknown) is not been ordered.? Will add torsemide. (unknown) (no (unknown) (unknown) details: x 9 (uni ts (unknown) date) months unknown) (unknown) (no (unknown) (unknown) disease progression (unit s (unknown) date) and this stay is unknown) expected to exceed 2 midnights. (unknown) (no (unknown) (unknown) evaluate.? Consult (units (unknown) date) completed by wound unknown) care nurse. Continue current treatment. (unknown) (no (unknown) (unknown) from 6.7-7.9 and (units (unknown) date) 20.8-24.5 unknown) respectively.? Today hemoglobin stable at 8.1.? This (unknown) (no (unknown) (unknown) further bleeding. (units (unknown) date) Hemoglobin stable. unknown) Restart aspirin and rivaroxaban tomorrow. (unknown) (no (unknown) (unknown) have no infection (units (unknown) date) and is proceeding unknown) with healing. (unknown) (no (unknown) (unknown) hematoma left leg.? (unit s (unknown) date) With skin compromise unknown) over the hematoma will have wound care (unknown) (no (unknown) (unknown) hold due to renal (units (unknown) date) function. unknown) (unknown) (no (unknown) (unknown) household members: (units (unknown) date) children unknown) (unknown) (no (unknown) (unknown) hydrochlorothiazide (unit s (unknown) date) and torsemide.? Will unknown) increase daily furosemide to 40 mg (unknown) (no (unknown) (unknown) is stable.? If (units (unknown) date) remains consistently unknown) stable can reinitiate rivaroxaban, aspirin (unknown) (no (unknown) (unknown) marital status: (units (unknown) date) unknown) (unknown) (no (unknown) (unknown) not been evaluated (units (unknown) date) yet.? Would be best unknown) to have consult and treatment plan prior (unknown) (no (unknown) (unknown) patient?s care is (units (unknown) date) appreciated.? This unknown) has been completed. Wound care nurse (unknown) (no (unknown) (unknown) prophylactic. Can (units (unknown) date) discontinue. unknown) (unknown) (no (unknown) (unknown) to discharge.? (units (unknown) date) Needed plan for care. unknown) (unknown) (no (unknown) (unknown) today; this time is (unit s (unknown) date) exclusive of unknown) procedural time. (unknown) (no (unknown) (unknown) treatment.? (units (un known) date) unknown) Result panel 79 (unknown) (no (unknown) (unknown) (no value) (units (unk nown) date) unknown) (unknown) (no (unknown) (unknown) Date of Service: (units (unknown) date) 01/27/22 unknown) (unknown) (no (unknown) (unknown) (no value) (units (unk nown) date) unknown) (unknown) (no (unknown) (unknown) - (units (unkno wn) date) unknown) (unknown) (no (unknown) (unknown) 01/29/22 05:08 (units (unknown) date) unknown) (unknown) (no (unknown) (unknown) 01/29/22 1825 (units ( unknown) date) unknown) (unknown) (no (unknown) (unknown) [facility] [address] (uni ts (unknown) date) [address] unknown) [place] [address] (unknown) (no (unknown) (unknown) Laboratory Results - (uni ts (unknown) date) last 24 hr unknown) (unknown) (no (unknown) (unknown) Progress Note (units ( unknown) date) unknown) (unknown) (no (unknown) (unknown) (no value) (units (unk nown) date) unknown) (unknown) (no (unknown) (unknown) 05:08 05:08 (units (un known) date) unknown) (unknown) (no (unknown) (unknown) 01/29/22 01/29/22 (units (unknown) date) unknown) (unknown) (no (unknown) (unknown) 01/29/22 (units (unkno wn) date) unknown) (unknown) (no (unknown) (unknown) enzymes, Mag, PT/INR (uni ts (unknown) date) unknown) (unknown) (no (unknown) (unknown) re-initiation of (units (unknown) date) rivaroxaban and unknown) aspirin and clopidogrel prior to discharge. (unknown) (no (unknown) (unknown) (past 8 hours): (units (unknown) date) unknown) (unknown) (no (unknown) (unknown) 1. Acute blood loss (unit s (unknown) date) anemia likely unknown) secondary to over coagulation with what (unknown) (no (unknown) (unknown) 11:32 (units (unkno wn) date) unknown) (unknown) (no (unknown) (unknown) 2. Acute kidney (units (unknown) date) injury likely unknown) secondary to blood loss anemia, present on (unknown) (no (unknown) (unknown) 3. Acute (units (unkno wn) date) decompensated heart unknown) failure with reduced ejection fraction, present on (unknown) (no (unknown) (unknown) [id number] (units (unkno wn) date) unknown) (unknown) (no (unknown) (unknown) 4. Probable left (units (unknown) date) knee cellulitis, unknown) acute, present on admission (unknown) (no (unknown) (unknown) 5. Coronary artery (units (unknown) date) disease, chronic unknown) (unknown) (no (unknown) (unknown) 6. Diabetes type 2, (unit s (unknown) date) appears to be well unknown) controlled (unknown) (no (unknown) (unknown) 7. Mobilization.? (units (unknown) date) Beginning to mobilize unknown) with physical therapy.? Continue with (unknown) (no (unknown) (unknown) ?A1c is 6.5 (units (un known) date) unknown) (unknown) (no (unknown) (unknown) ALT 16 (units (unkno wn) date) unknown) (unknown) (no (unknown) (unknown) AST 22 (units (unkno wn) date) unknown) (unknown) (no (unknown) (unknown) Age/Sex: 76 / M (units (unknown) date) unknown) (unknown) (no (unknown) (unknown) Albumin 3.3 L (units ( unknown) date) unknown) (unknown) (no (unknown) (unknown) Albumin/Globulin (units (unknown) date) Ratio 0.9 L unknown) (unknown) (no (unknown) (unknown) Alkaline Phosphatase (uni ts (unknown) date) 119 unknown) (unknown) (no (unknown) (unknown) Anisocytosis 3+ H (units (unknown) date) unknown) (unknown) (no (unknown) (unknown) Anticoagulated (units (unknown) date) unknown) (unknown) (no (unknown) (unknown) Assessment + Plan (units (unknown) date) unknown) (unknown) (no (unknown) (unknown) Assessment + Plan (units (unknown) date) narrative: unknown) (unknown) (no (unknown) (unknown) Assessment + Plan (units (unknown) date) narrative: unknown) (unknown) (no (unknown) (unknown) Atrial fibrillation (unit s (unknown) date) unknown) (unknown) (no (unknown) (unknown) BUN 51 H (units (unkno wn) date) unknown) (unknown) (no (unknown) (unknown) BUN/Creatinine Ratio (uni ts (unknown) date) 25.2 H unknown) (unknown) (no (unknown) (unknown) Baso # (Auto) 0 (units (unknown) date) unknown) (unknown) (no (unknown) (unknown) Baso % (Auto) 0.6 (units (unknown) date) unknown) (unknown) (no (unknown) (unknown) Blood Pressure (units (unknown) date) 105/45 L unknown) (unknown) (no (unknown) (unknown) Calcium 8.4 (units (un known) date) unknown) (unknown) (no (unknown) (unknown) Carb controlled diet (uni ts (unknown) date) with a.c. 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 (unknown) (no (unknown) (unknown) Cardiovascular:? 1/6 (uni ts (unknown) date) systolic murmur.? unknown) S1-S2.? Peripheral pulses equal (unknown) (no (unknown) (unknown) Chloride 98 (units (un known) date) unknown) (unknown) (no (unknown) (unknown) Closely monitor (units (unknown) date) renal function and unknown) hold nephrotoxic medications (Lisinopril).? (unknown) (no (unknown) (unknown) Code status: Full (units (unknown) date) code as discussed unknown) with the patient who identifies his son, (unknown) (no (unknown) (unknown) Consultants: (units (unknown) date) [facility] unknown) Surgery,? care and involvement in the (unknown) (no (unknown) (unknown) Continue carvedilol (unit s (unknown) date) 25 mg p.o. b.i.d., unknown) patient receives in 12.5 mg tablets (unknown) (no (unknown) (unknown) Continue home dose (units (unknown) date) of atorvastatin 40 mg unknown) p.o. at bedtime (unknown) (no (unknown) (unknown) Coronary artery (units (unknown) date) disease unknown) (unknown) (no (unknown) (unknown) Creatinine 2.02 H (units (unknown) date) unknown) (unknown) (no (unknown) (unknown) Critical Care time: (unit s (unknown) date) unknown) (unknown) (no (unknown) (unknown) : 1945 (units (unknown) date) Acct:[id number] unknown) (unknown) (no (unknown) (unknown) Date Patient Seen: (units (unknown) date) 01/29/22 unknown) (unknown) (no (unknown) (unknown) Deep Vein (units (unkn own) date) Thrombosis/Pulmonary unknown) Embolism Present on Admission: No (unknown) (no (unknown) (unknown) Diabetes (units (unkno wn) date) unknown) (unknown) (no (unknown) (unknown) Dispo: Unknown at (units (unknown) date) this time.? Need unknown) wound care plan, stability of hemoglobin with (unknown) (no (unknown) (unknown) Davdi his surrogate (units (unknown) date) and POA. unknown) (unknown) (no (unknown) (unknown) Dyslipidemia (units (u nknown) date) unknown) (unknown) (no (unknown) (unknown) Eos # (Auto) 200 (units (unknown) date) unknown) (unknown) (no (unknown) (unknown) Eos % (Auto) 3.4 (units (unknown) date) unknown) (unknown) (no (unknown) (unknown) Estimated GFR 34 L (units (unknown) date) unknown) (unknown) (no (unknown) (unknown) Exam (units (unkno wn) date) unknown) (unknown) (no (unknown) (unknown) Exam Narrative: (units (unknown) date) unknown) (unknown) (no (unknown) (unknown) FEN: IV fluids: (units (unknown) date) saline lock, diet: unknown) carb controlled diet, labs: CBC, C/BMP, liver (unknown) (no (unknown) (unknown) Family History (units (unknown) date) (Reviewed 01/27/22 @ unknown) 07:53 by Tony Aceves MD) (unknown) (no (unknown) (unknown) GFR improved to 34 (units (unknown) date) today.? Renal unknown) function is improving.? Follow labs. (unknown) (no (unknown) (unknown) Gastrointestinal:? (units (unknown) date) Bowel sounds normal.? unknown) Abdomen soft.? Nontender. (unknown) (no (unknown) (unknown) Globulin 3.5 (units (u nknown) date) unknown) (unknown) (no (unknown) (unknown) Glucose 114 H (units ( unknown) date) unknown) (unknown) (no (unknown) (unknown) HEENT:? Pupils equal (uni ts (unknown) date) reaction to light.? unknown) Extraocular movements normal.? Neck is (unknown) (no (unknown) (unknown) Hct 26.2 L (units (unk nown) date) unknown) (unknown) (no (unknown) (unknown) He is currently (units (unknown) date) saline lock due to unknown) volume overload (unknown) (no (unknown) (unknown) He will receive his (unit s (unknown) date) home dose of Lantus unknown) 30 units b.i.d. Metformin remains on (unknown) (no (unknown) (unknown) Hgb 8.6 L (units (unkn own) date) unknown) (unknown) (no (unknown) (unknown) Hx of (units (unkno wn) date) cholecystectomy unknown) (unknown) (no (unknown) (unknown) Hypertension (units (u nknown) date) unknown) (unknown) (no (unknown) (unknown) I spent a total of (units (unknown) date) [] minutes of unknown) critical care time on this patient's care (unknown) (no (unknown) (unknown) In the ER, he (units ( unknown) date) received IV Lasix 80 unknown) mg in addition to his home oral dose of (unknown) (no (unknown) (unknown) Interval history: (units (unknown) date) unknown) (unknown) (no (unknown) (unknown) Labs (units (unkno wn) date) unknown) (unknown) (no (unknown) (unknown) Labs: (units (unkno wn) date) unknown) (unknown) (no (unknown) (unknown) Low-dose (units (unkno wn) date) correctional scale unknown) insulin and adjust as needed (unknown) (no (unknown) (unknown) Lymph # (Auto) 800 L (uni ts (unknown) date) unknown) (unknown) (no (unknown) (unknown) Lymph % (Auto) 15.8 (unit s (unknown) date) L unknown) (unknown) (no (unknown) (unknown) MCH 25.9 L (units (unk nown) date) unknown) (unknown) (no (unknown) (unknown) MCHC 32.8 (units (unkn own) date) unknown) (unknown) (no (unknown) (unknown) MCV 78.8 L (units (unk nown) date) unknown) (unknown) (no (unknown) (unknown) Medical History (units (unknown) date) (Reviewed 01/27/22 @ unknown) 07:53 by Tony Aceves MD) (unknown) (no (unknown) (unknown) Lajas # (Auto) 600 (units (unknown) date) unknown) (unknown) (no (unknown) (unknown) Lajas % (Auto) 12.0 (units (unknown) date) unknown) (unknown) (no (unknown) (unknown) Musculoskeletal:? (units (unknown) date) Able to move all unknown) extremities volitionally.? Beginning to (unknown) (no (unknown) (unknown) NT-Pro-B Natriuret (units (unknown) date) Pep 5570 H unknown) (unknown) (no (unknown) (unknown) Narrative (units (unkn own) date) unknown) (unknown) (no (unknown) (unknown) Neuro:? Normal (units (unknown) date) sensation of all unknown) extremities.? Oriented x3. (unknown) (no (unknown) (unknown) Neut # (Auto) 3300 (units (unknown) date) unknown) (unknown) (no (unknown) (unknown) Neut % (Auto) 68.2 (units (unknown) date) unknown) (unknown) (no (unknown) (unknown) No new complaints. (units (unknown) date) States he is feeling unknown) better. He mobilize more. Reassured (unknown) (no (unknown) (unknown) Objective (units (unkn own) date) unknown) (unknown) (no (unknown) (unknown) Oriented to time (units (unknown) date) place and person.? unknown) Appears in no acute medical distress. (unknown) (no (unknown) (unknown) Orthopedic surgery (units (unknown) date) has been consulted unknown) and seen the patient. (unknown) (no (unknown) (unknown) Other Adopted (units ( unknown) date) unknown) (unknown) (no (unknown) (unknown) Oxygen Delivery (units (unknown) date) Method Room Air unknown) (unknown) (no (unknown) (unknown) Oxygen Flow Rate 0 (units (unknown) date) unknown) (unknown) (no (unknown) (unknown) Oxygen Flow Rate 0 (units (unknown) date) unknown) (unknown) (no (unknown) (unknown) PFSH (units (unkno wn) date) unknown) (unknown) (no (unknown) (unknown) Patient currently (units (unknown) date) being treated with unknown) vancomycin.? This is essentially (unknown) (no (unknown) (unknown) Patient is currently (uni ts (unknown) date) recovering from unknown) biventricular heart catheterization (unknown) (no (unknown) (unknown) Patient is? (units (un known) date) inpatient service due unknown) to the severity of disease, risks of further (unknown) (no (unknown) (unknown) Patient received 2 (units (unknown) date) units PRBC in the unknown) emergency department increasing his H+H (unknown) (no (unknown) (unknown) Patient to follow-up (uni ts (unknown) date) with wound care unknown) specialist as an outpatient. Appears to (unknown) (no (unknown) (unknown) Patient was fluid (units (unknown) date) resuscitated in the unknown) emergency department 2 L (unknown) (no (unknown) (unknown) Patient's proBNP was (uni ts (unknown) date) almost 7200.? unknown) Improved today at 5570. (unknown) (no (unknown) (unknown) Patient's (units (unkn own) date) rivaroxaban, aspirin unknown) and clopidogrel are being held. No evidence of (unknown) (no (unknown) (unknown) Patient: (units (unkno wn) date) Osmel Baxter MR#: unknown) M000 (unknown) (no (unknown) (unknown) Plt Count 164 (units ( unknown) date) unknown) (unknown) (no (unknown) (unknown) Potassium 3.8 (units ( unknown) date) unknown) (unknown) (no (unknown) (unknown) Provider: (units (unkn own) date) Chary Ramirez MD unknown) (unknown) (no (unknown) (unknown) Psych:? Normal mood (unit s (unknown) date) and affect. unknown) (unknown) (no (unknown) (unknown) Pulse Oximetry 93 (units (unknown) date) unknown) (unknown) (no (unknown) (unknown) Pulse Rate 65 (units ( unknown) date) unknown) (unknown) (no (unknown) (unknown) Quality (units (unkno wn) date) unknown) (unknown) (no (unknown) (unknown) RBC 3.33 L (units (unk nown) date) unknown) (unknown) (no (unknown) (unknown) RBC Morphology See (units (unknown) date) below unknown) (unknown) (no (unknown) (unknown) RDW 23.6 H (units (unk nown) date) unknown) (unknown) (no (unknown) (unknown) Respiratory Rate 18 (unit s (unknown) date) unknown) (unknown) (no (unknown) (unknown) Respiratory:? 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 Abrasions (units (unknown) date) left foot.? Wound unknown) left knee with hematoma currently dressed.? (unknown) (no (unknown) (unknown) Sleep apnea (units (un known) date) unknown) (unknown) (no (unknown) (unknown) Smoking Status: (units (unknown) date) Former smoker unknown) (unknown) (no (unknown) (unknown) Social History (units (unknown) date) (Updated 09/25/18 @ unknown) 11:17 by Telma Dickey DO) (unknown) (no (unknown) (unknown) Sodium 133 L (units (u nknown) date) unknown) (unknown) (no (unknown) (unknown) Soft tissues (units (u nknown) date) abrasions right arm unknown) dressed. (unknown) (no (unknown) (unknown) Subjective (units (unk nown) date) unknown) (unknown) (no (unknown) (unknown) Surgical History (units (unknown) date) (Reviewed 01/27/22 @ unknown) 07:53 by Tony Aceves MD) (unknown) (no (unknown) (unknown) Temperature 97.7 F (units (unknown) date) unknown) (unknown) (no (unknown) (unknown) Time Spent With (units (unknown) date) Patient unknown) (unknown) (no (unknown) (unknown) Total Bilirubin 1.4 (uni ts (unknown) date) H unknown) (unknown) (no (unknown) (unknown) Total Protein 6.8 (units (unknown) date) unknown) (unknown) (no (unknown) (unknown) Troponin I 0.029 (units (unknown) date) unknown) (unknown) (no (unknown) (unknown) VTE (units (unkno wn) date) unknown) (unknown) (no (unknown) (unknown) VTE Prophylaxis: (units (unknown) date) Wells risk score unknown) 1.5.? Pharmacological VTE prophylaxis is (unknown) (no (unknown) (unknown) Vital Signs (units (un known) date) unknown) (unknown) (no (unknown) (unknown) WBC 4.9 (units (unkno wn) date) unknown) (unknown) (no (unknown) (unknown) Will improve and (units (unknown) date) hospital and then can unknown) follow up with wound care physician as an (unknown) (no (unknown) (unknown) Wound care consulted (uni ts (unknown) date) due to compromised unknown) skin at site of hematoma left leg.? Has (unknown) (no (unknown) (unknown) [Embedded Image Not (unit s (unknown) date) Available] unknown) (unknown) (no (unknown) (unknown) admission (units (unkn own) date) unknown) (unknown) (no (unknown) (unknown) and clopidogrel. (units (unknown) date) unknown) (unknown) (no (unknown) (unknown) appears to be triple (uni ts (unknown) date) anti-platelet unknown) therapy, present on admission.? Causing (unknown) (no (unknown) (unknown) bilaterally.? No (units (unknown) date) pedal edema. unknown) (unknown) (no (unknown) (unknown) consult completed. (units (unknown) date) unknown) (unknown) (no (unknown) (unknown) contraindicated in (units (unknown) date) the setting of active unknown) bleeding will do SCD? (unknown) (no (unknown) (unknown) daily.? (units (unkno wn) date) Hydrochlorothiazide unknown) is not been ordered.? Will add torsemide. (unknown) (no (unknown) (unknown) details: x 9 (uni ts (unknown) date) months unknown) (unknown) (no (unknown) (unknown) disease progression (unit s (unknown) date) and this stay is unknown) expected to exceed 2 midnights. (unknown) (no (unknown) (unknown) evaluate.? Consult (units (unknown) date) completed by wound unknown) care nurse. Continue current treatment. (unknown) (no (unknown) (unknown) from 6.7-7.9 and (units (unknown) date) 20.8-24.5 unknown) respectively.? Today hemoglobin stable at 8.1.? This (unknown) (no (unknown) (unknown) further bleeding. (units (unknown) date) Hemoglobin stable. unknown) Restart aspirin and rivaroxaban tomorrow. (unknown) (no (unknown) (unknown) have no infection (units (unknown) date) and is proceeding unknown) with healing. (unknown) (no (unknown) (unknown) hematoma left leg.? (unit s (unknown) date) With skin compromise unknown) over the hematoma will have wound care (unknown) (no (unknown) (unknown) him that his wound (units (unknown) date) left knee does not unknown) look infected as for wound care nurse. (unknown) (no (unknown) (unknown) hold due to renal (units (unknown) date) function. unknown) (unknown) (no (unknown) (unknown) household members: (units (unknown) date) children unknown) (unknown) (no (unknown) (unknown) hydrochlorothiazide (unit s (unknown) date) and torsemide.? Will unknown) increase daily furosemide to 40 mg (unknown) (no (unknown) (unknown) is midline. (units (un known) date) unknown) (unknown) (no (unknown) (unknown) is stable.? If (units (unknown) date) remains consistently unknown) stable can reinitiate rivaroxaban, aspirin (unknown) (no (unknown) (unknown) marital status: (units (unknown) date) unknown) (unknown) (no (unknown) (unknown) mobilize more with (units (unknown) date) physical therapy.? No unknown) localized strength deficits. (unknown) (no (unknown) (unknown) not been evaluated (units (unknown) date) yet.? Would be best unknown) to have consult and treatment plan prior (unknown) (no (unknown) (unknown) outpatient. (units (un known) date) unknown) (unknown) (no (unknown) (unknown) patient?s care is (units (unknown) date) appreciated.? This unknown) has been completed. Wound care nurse (unknown) (no (unknown) (unknown) prophylactic. Can (units (unknown) date) discontinue. unknown) (unknown) (no (unknown) (unknown) supple.? Neck nodes (unit s (unknown) date) are nontender unknown) nonpalpable.? Head is normocephalic.? Trachea (unknown) (no (unknown) (unknown) to discharge.? (units (unknown) date) Needed plan for care. unknown) (unknown) (no (unknown) (unknown) today; this time is (unit s (unknown) date) exclusive of unknown) procedural time. (unknown) (no (unknown) (unknown) treatment.? (units (un known) date) unknown) (unknown) (no (unknown) (unknown) wheezes or crackles. (uni ts (unknown) date) unknown) Result panel 80 (unknown) (no date) (unknown) (unknown) (no value) (units (un known) unknown) (unknown) (no date) (unknown) (unknown) NO GROWTH (units (unk nown) AFTER 72 unknown) HOURS Result panel 81 (unknown) (no date) (unknown) (unknown) (no value) (units (un known) unknown) (unknown) (no date) (unknown) (unknown) NO GROWTH (units (unk nown) AFTER 72 unknown) HOURS Result panel 82 (unknown) (no date) (unknown) (unknown) 0 /uL (unkn own) (unknown) (no date) (unknown) (unknown) 0.4 % (unkn own) (unknown) (no date) (unknown) (unknown) 100 /uL (unkn own) (unknown) (no date) (unknown) (unknown) 13.2 % (unkn own) (unknown) (no date) (unknown) (unknown) 173 X10 3/uL (unkn own) (unknown) (no date) (unknown) (unknown) 2.1 % (unkn own) (unknown) (no date) (unknown) (unknown) 23.4 % (unkn own) (unknown) (no date) (unknown) (unknown) 25.6 PG (unkn own) (unknown) (no date) (unknown) (unknown) 3.79 X10 6/uL (unkn own) (unknown) (no date) (unknown) (unknown) 30.1 % (unkn own) (unknown) (no date) (unknown) (unknown) 32.2 % (unkn own) (unknown) (no date) (unknown) (unknown) 3800 /uL (unkn own) (unknown) (no date) (unknown) (unknown) 5.1 X10 3/uL (unkn own) (unknown) (no date) (unknown) (unknown) 500 /uL (unkn own) (unknown) (no date) (unknown) (unknown) 700 /uL (unkn own) (unknown) (no date) (unknown) (unknown) 74.8 % (unkn own) (unknown) (no date) (unknown) (unknown) 79.5 fL (unkn own) (unknown) (no date) (unknown) (unknown) 9.5 % (unkn own) (unknown) (no date) (unknown) (unknown) 9.7 g/dL (unkn own) Result panel 83 (unknown) (no date) (unknown) (unknown) 0.9 (units unknown) (unknown) (unknown) (no date) (unknown) (unknown) 1.5 mg/dL (unkn own) (unknown) (no date) (unknown) (unknown) 1.87 mg/dL (unkn own) (unknown) (no date) (unknown) (unknown) 121 U/L (unkn own) (unknown) (no date) (unknown) (unknown) 135 mmol/L (unkn own) (unknown) (no date) (unknown) (unknown) 139 mg/dL (unkn own) (unknown) (no date) (unknown) (unknown) 18 IU/L (unkn own) (unknown) (no date) (unknown) (unknown) 25.7 (units unknown) (unknown) (unknown) (no date) (unknown) (unknown) 26 mmol/L (unkn own) (unknown) (no date) (unknown) (unknown) 27 IU/L (unkn own) (unknown) (no date) (unknown) (unknown) 3.4 g/dL (unkn own) (unknown) (no date) (unknown) (unknown) 3.7 mmol/L (unkn own) (unknown) (no date) (unknown) (unknown) 37 mL/min (unkn own) (unknown) (no date) (unknown) (unknown) 4.0 g/dL (unkn own) (unknown) (no date) (unknown) (unknown) 48 mg/dL (unkn own) (unknown) (no date) (unknown) (unknown) 7.4 g/dL (unkn own) (unknown) (no date) (unknown) (unknown) 8.5 mg/dL (unkn own) (unknown) (no date) (unknown) (unknown) 97 mmol/L (unkn own) Result panel 84 (unknown) (no date) (unknown) (unknown) 0 /uL (unkn own) (unknown) (no date) (unknown) (unknown) 0.4 % (unkn own) (unknown) (no date) (unknown) (unknown) 100 /uL (unkn own) (unknown) (no date) (unknown) (unknown) 13.2 % (unkn own) (unknown) (no date) (unknown) (unknown) 173 X10 3/uL (unkn own) (unknown) (no date) (unknown) (unknown) 2.1 % (unkn own) (unknown) (no date) (unknown) (unknown) 23.4 % (unkn own) (unknown) (no date) (unknown) (unknown) 25.6 PG (unkn own) (unknown) (no date) (unknown) (unknown) 3+ (units (unkn own) unknown) (unknown) (no date) (unknown) (unknown) 3.79 X10 6/uL (unkn own) (unknown) (no date) (unknown) (unknown) 30.1 % (unkn own) (unknown) (no date) (unknown) (unknown) 32.2 % (unkn own) (unknown) (no date) (unknown) (unknown) 3800 /uL (unkn own) (unknown) (no date) (unknown) (unknown) 5.1 X10 3/uL (unkn own) (unknown) (no date) (unknown) (unknown) 500 /uL (unkn own) (unknown) (no date) (unknown) (unknown) 700 /uL (unkn own) (unknown) (no date) (unknown) (unknown) 74.8 % (unkn own) (unknown) (no date) (unknown) (unknown) 79.5 fL (unkn own) (unknown) (no date) (unknown) (unknown) 9.5 % (unkn own) (unknown) (no date) (unknown) (unknown) 9.7 g/dL (unkn own) (unknown) (no date) (unknown) (unknown) See Below (units (unk nown) unknown) Result panel 85 (unknown) (no (unknown) (unknown) (no value) (units (unk nown) date) unknown) (unknown) (no (unknown) (unknown) Date of Service: (units (unknown) date) 01/27/22 unknown) (unknown) (no (unknown) (unknown) (no value) (units (unk nown) date) unknown) (unknown) (no (unknown) (unknown) - (units (unkno wn) date) unknown) (unknown) (no (unknown) (unknown) 01/30/22 05:45 (units (unknown) date) unknown) (unknown) (no (unknown) (unknown) [facility] [id number] (uni ts (unknown) date) [address] unknown) [place] [address] (unknown) (no (unknown) (unknown) Laboratory Results - (uni ts (unknown) date) last 24 hr unknown) (unknown) (no (unknown) (unknown) Progress Note (units ( unknown) date) unknown) (unknown) (no (unknown) (unknown) (no value) (units (unk nown) date) unknown) (unknown) (no (unknown) (unknown) 05:45 05:45 (units (un known) date) unknown) (unknown) (no (unknown) (unknown) 01/30/22 01/30/22 (units (unknown) date) unknown) (unknown) (no (unknown) (unknown) 01/30/22 (units (unkno wn) date) unknown) (unknown) (no (unknown) (unknown) enzymes, Mag, PT/INR (uni ts (unknown) date) unknown) (unknown) (no (unknown) (unknown) re-initiation of (units (unknown) date) rivaroxaban and unknown) aspirin and clopidogrel prior to discharge. (unknown) (no (unknown) (unknown) (past 8 hours): (units (unknown) date) unknown) (unknown) (no (unknown) (unknown) 08:00 01/30/22 (units (unknown) date) unknown) (unknown) (no (unknown) (unknown) 08:39 01/30/22 (units (unknown) date) unknown) (unknown) (no (unknown) (unknown) 1. Acute blood loss (unit s (unknown) date) anemia likely unknown) secondary to over coagulation with what (unknown) (no (unknown) (unknown) 11:50 (units (unkno wn) date) unknown) (unknown) (no (unknown) (unknown) 2. Acute kidney (units (unknown) date) injury likely unknown) secondary to blood loss anemia, present on (unknown) (no (unknown) (unknown) 3. Acute (units (unkno wn) date) decompensated heart unknown) failure with reduced ejection fraction, present on (unknown) (no (unknown) (unknown) [id number] (units (unkno wn) date) unknown) (unknown) (no (unknown) (unknown) 4. Probable left (units (unknown) date) knee cellulitis, unknown) acute, present on admission (unknown) (no (unknown) (unknown) 5. Coronary artery (units (unknown) date) disease, chronic unknown) (unknown) (no (unknown) (unknown) 6. Diabetes type 2, (unit s (unknown) date) appears to be well unknown) controlled (unknown) (no (unknown) (unknown) 7. Mobilization.? (units (unknown) date) Beginning to mobilize unknown) with physical therapy.? Continue with (unknown) (no (unknown) (unknown) 8. Urinary tract (units (unknown) date) infection with unknown) Renetta glabrata. (unknown) (no (unknown) (unknown) ?A1c is 6.5 (units (un known) date) unknown) (unknown) (no (unknown) (unknown) ALT 18 (units (unkno wn) date) unknown) (unknown) (no (unknown) (unknown) AST 27 (units (unkno wn) date) unknown) (unknown) (no (unknown) (unknown) Age/Sex: 76 / M (units (unknown) date) unknown) (unknown) (no (unknown) (unknown) Albumin 3.4 L (units ( unknown) date) unknown) (unknown) (no (unknown) (unknown) Albumin/Globulin (units (unknown) date) Ratio 0.9 L unknown) (unknown) (no (unknown) (unknown) Alkaline Phosphatase (uni ts (unknown) date) 121 unknown) (unknown) (no (unknown) (unknown) Anisocytosis 3+ H (units (unknown) date) unknown) (unknown) (no (unknown) (unknown) Anticoagulated (units (unknown) date) unknown) (unknown) (no (unknown) (unknown) Assessment + Plan (units (unknown) date) unknown) (unknown) (no (unknown) (unknown) Assessment + Plan (units (unknown) date) narrative: unknown) (unknown) (no (unknown) (unknown) Atrial fibrillation (unit s (unknown) date) unknown) (unknown) (no (unknown) (unknown) BUN 48 H (units (unkno wn) date) unknown) (unknown) (no (unknown) (unknown) BUN/Creatinine Ratio (uni ts (unknown) date) 25.7 H unknown) (unknown) (no (unknown) (unknown) Baso # (Auto) 0 (units (unknown) date) unknown) (unknown) (no (unknown) (unknown) Baso % (Auto) 0.4 (units (unknown) date) unknown) (unknown) (no (unknown) (unknown) Blood Pressure (units (unknown) date) 102/52 L 102/52 L unknown) 95/49 L (unknown) (no (unknown) (unknown) Calcium 8.5 (units (un known) date) unknown) (unknown) (no (unknown) (unknown) Carb controlled diet (uni ts (unknown) date) with a.c. 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 (unknown) (no (unknown) (unknown) Chloride 97 L (units ( unknown) date) unknown) (unknown) (no (unknown) (unknown) Closely monitor (units (unknown) date) renal function and unknown) hold nephrotoxic medications (Lisinopril).? (unknown) (no (unknown) (unknown) Code status: Full (units (unknown) date) code as discussed unknown) with the patient who identifies his son, (unknown) (no (unknown) (unknown) Consultants: (units (unknown) date) [facility] unknown) Surgery,? care and involvement in the (unknown) (no (unknown) (unknown) Continue carvedilol (unit s (unknown) date) 25 mg p.o. b.i.d., unknown) patient receives in 12.5 mg tablets (unknown) (no (unknown) (unknown) Continue home dose (units (unknown) date) of atorvastatin 40 mg unknown) p.o. at bedtime (unknown) (no (unknown) (unknown) Coronary artery (units (unknown) date) disease unknown) (unknown) (no (unknown) (unknown) Creatinine 1.87 H (units (unknown) date) unknown) (unknown) (no (unknown) (unknown) Critical Care time: (unit s (unknown) date) unknown) (unknown) (no (unknown) (unknown) : 1945 (units (unknown) date) Acct:[id number] unknown) (unknown) (no (unknown) (unknown) Deep Vein (units (unkn own) date) Thrombosis/Pulmonary unknown) Embolism Present on Admission: No (unknown) (no (unknown) (unknown) Diabetes (units (unkno wn) date) unknown) (unknown) (no (unknown) (unknown) Dispo: Unknown at (units (unknown) date) this time.? Need unknown) wound care plan, stability of hemoglobin with (unknown) (no (unknown) (unknown) David his surrogate (units (unknown) date) and POA. unknown) (unknown) (no (unknown) (unknown) Dyslipidemia (units (u nknown) date) unknown) (unknown) (no (unknown) (unknown) Eos # (Auto) 100 (units (unknown) date) unknown) (unknown) (no (unknown) (unknown) Eos % (Auto) 2.1 (units (unknown) date) unknown) (unknown) (no (unknown) (unknown) Estimated GFR 37 L (units (unknown) date) unknown) (unknown) (no (unknown) (unknown) Exam (units (unkno wn) date) unknown) (unknown) (no (unknown) (unknown) FEN: IV fluids: (units (unknown) date) saline lock, diet: unknown) carb controlled diet, labs: CBC, C/BMP, liver (unknown) (no (unknown) (unknown) Family History (units (unknown) date) (Reviewed 01/27/22 @ unknown) 07:53 by Tony Aceves MD) (unknown) (no (unknown) (unknown) GFR improved to 34 (units (unknown) date) today.? Renal unknown) function is improving.? Follow labs. (unknown) (no (unknown) (unknown) Globulin 4.0 (units (u nknown) date) unknown) (unknown) (no (unknown) (unknown) Glucose 139 H (units ( unknown) date) unknown) (unknown) (no (unknown) (unknown) Hct 30.1 L (units (unk nown) date) unknown) (unknown) (no (unknown) (unknown) He is currently (units (unknown) date) saline lock due to unknown) volume overload (unknown) (no (unknown) (unknown) He will receive his (unit s (unknown) date) home dose of Lantus unknown) 30 units b.i.d. Metformin remains on (unknown) (no (unknown) (unknown) Hgb 9.7 L (units (unkn own) date) unknown) (unknown) (no (unknown) (unknown) Hx of (units (unkno wn) date) cholecystectomy unknown) (unknown) (no (unknown) (unknown) Hypertension (units (u nknown) date) unknown) (unknown) (no (unknown) (unknown) I spent a total of (units (unknown) date) [] minutes of unknown) critical care time on this patient's care (unknown) (no (unknown) (unknown) In the ER, he (units ( unknown) date) received IV Lasix 80 unknown) mg in addition to his home oral dose of (unknown) (no (unknown) (unknown) Labs (units (unkno wn) date) unknown) (unknown) (no (unknown) (unknown) Labs: (units (unkno wn) date) unknown) (unknown) (no (unknown) (unknown) Low-dose (units (unkno wn) date) correctional scale unknown) insulin and adjust as needed (unknown) (no (unknown) (unknown) Lymph # (Auto) 700 L (uni ts (unknown) date) unknown) (unknown) (no (unknown) (unknown) Lymph % (Auto) 13.2 (unit s (unknown) date) L unknown) (unknown) (no (unknown) (unknown) MCH 25.6 L (units (unk nown) date) unknown) (unknown) (no (unknown) (unknown) MCHC 32.2 (units (unkn own) date) unknown) (unknown) (no (unknown) (unknown) MCV 79.5 L (units (unk nown) date) unknown) (unknown) (no (unknown) (unknown) Medical History (units (unknown) date) (Reviewed 01/27/22 @ unknown) 07:53 by Tony Aceves MD) (unknown) (no (unknown) (unknown) Lajas # (Auto) 500 (units (unknown) date) unknown) (unknown) (no (unknown) (unknown) Lajas % (Auto) 9.5 (units (unknown) date) unknown) (unknown) (no (unknown) (unknown) Neut # (Auto) 3800 (units (unknown) date) unknown) (unknown) (no (unknown) (unknown) Neut % (Auto) 74.8 (units (unknown) date) unknown) (unknown) (no (unknown) (unknown) Objective (units (unkn own) date) unknown) (unknown) (no (unknown) (unknown) Orthopedic surgery (units (unknown) date) has been consulted unknown) and seen the patient. (unknown) (no (unknown) (unknown) Other Adopted (units ( unknown) date) unknown) (unknown) (no (unknown) (unknown) Oxygen Delivery (units (unknown) date) Method Room Air unknown) (unknown) (no (unknown) (unknown) Oxygen Flow Rate 0 (units (unknown) date) unknown) (unknown) (no (unknown) (unknown) Oxygen Flow Rate 0 0 (uni ts (unknown) date) unknown) (unknown) (no (unknown) (unknown) PFSH (units (unkno wn) date) unknown) (unknown) (no (unknown) (unknown) Patient currently (units (unknown) date) being treated with unknown) vancomycin.? This is essentially (unknown) (no (unknown) (unknown) Patient is currently (uni ts (unknown) date) recovering from unknown) biventricular heart catheterization (unknown) (no (unknown) (unknown) Patient is? (units (un known) date) inpatient service due unknown) to the severity of disease, risks of further (unknown) (no (unknown) (unknown) Patient received 2 (units (unknown) date) units PRBC in the unknown) emergency department increasing his H+H (unknown) (no (unknown) (unknown) Patient to follow-up (uni ts (unknown) date) with wound care unknown) specialist as an outpatient.? Appears to (unknown) (no (unknown) (unknown) Patient was fluid (units (unknown) date) resuscitated in the unknown) emergency department 2 L (unknown) (no (unknown) (unknown) Patient's proBNP was (uni ts (unknown) date) almost 7200.? unknown) Improved today at 5570. (unknown) (no (unknown) (unknown) Patient's (units (unkn own) date) rivaroxaban, aspirin unknown) and clopidogrel are being held.? No evidence of (unknown) (no (unknown) (unknown) Patient: (units (unkno wn) date) Osmel Baxter MR#: unknown) M000 (unknown) (no (unknown) (unknown) Plt Count 173 (units ( unknown) date) unknown) (unknown) (no (unknown) (unknown) Potassium 3.7 (units ( unknown) date) unknown) (unknown) (no (unknown) (unknown) Provider: (units (unkn own) date) Chary Ramirez MD unknown) (unknown) (no (unknown) (unknown) Pulse Oximetry 95 96 (uni ts (unknown) date) unknown) (unknown) (no (unknown) (unknown) Pulse Rate 78 75 69 (unit s (unknown) date) unknown) (unknown) (no (unknown) (unknown) Quality (units (unkno wn) date) unknown) (unknown) (no (unknown) (unknown) RBC 3.79 L (units (unk nown) date) unknown) (unknown) (no (unknown) (unknown) RBC Morphology See (units (unknown) date) below unknown) (unknown) (no (unknown) (unknown) RDW 23.4 H (units (unk nown) date) unknown) (unknown) (no (unknown) (unknown) Respiratory Rate 18 (unit s (unknown) date) 18 unknown) (unknown) (no (unknown) (unknown) Result Diagrams: (units (unknown) date) 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) (unknown) (no (unknown) (unknown) Signed By: (units (unk nown) date) unknown) (unknown) (no (unknown) (unknown) Sleep apnea (units (un known) date) unknown) (unknown) (no (unknown) (unknown) Smoking Status: (units (unknown) date) Former smoker unknown) (unknown) (no (unknown) (unknown) Social History (units (unknown) date) (Updated 09/25/18 @ unknown) 11:17 by Telma Dickey DO) (unknown) (no (unknown) (unknown) Sodium 135 L (units (u nknown) date) unknown) (unknown) (no (unknown) (unknown) Surgical History (units (unknown) date) (Reviewed 01/27/22 @ unknown) 07:53 by Tony Aceves MD) (unknown) (no (unknown) (unknown) Temperature 98.2 F (units (unknown) date) 98.0 F unknown) (unknown) (no (unknown) (unknown) Time Spent With (units (unknown) date) Patient unknown) (unknown) (no (unknown) (unknown) Total Bilirubin 1.5 (unit s (unknown) date) H unknown) (unknown) (no (unknown) (unknown) Total Protein 7.4 (units (unknown) date) unknown) (unknown) (no (unknown) (unknown) VTE (units (unkno wn) date) unknown) (unknown) (no (unknown) (unknown) VTE Prophylaxis: (units (unknown) date) Wells risk score unknown) 1.5.? Pharmacological VTE prophylaxis is (unknown) (no (unknown) (unknown) Vital Signs (units (un known) date) unknown) (unknown) (no (unknown) (unknown) WBC 5.1 (units (unkno wn) date) unknown) (unknown) (no (unknown) (unknown) Wound care consulted (uni ts (unknown) date) due to compromised unknown) skin at site of hematoma left leg.? Has (unknown) (no (unknown) (unknown) [Embedded Image Not (unit s (unknown) date) Available] unknown) (unknown) (no (unknown) (unknown) admission (units (unkn own) date) unknown) (unknown) (no (unknown) (unknown) and clopidogrel. (units (unknown) date) unknown) (unknown) (no (unknown) (unknown) appears to be triple (uni ts (unknown) date) anti-platelet unknown) therapy, present on admission.? Causing (unknown) (no (unknown) (unknown) consult completed. (units (unknown) date) unknown) (unknown) (no (unknown) (unknown) contraindicated in (units (unknown) date) the setting of active unknown) bleeding will do SCD? (unknown) (no (unknown) (unknown) details: x 9 (uni ts (unknown) date) months unknown) (unknown) (no (unknown) (unknown) disease progression (unit s (unknown) date) and this stay is unknown) expected to exceed 2 midnights. (unknown) (no (unknown) (unknown) evaluate.? Consult (units (unknown) date) completed by wound unknown) care nurse.? Continue current treatment.? (unknown) (no (unknown) (unknown) from 6.7-7.9 and (units (unknown) date) 20.8-24.5 unknown) respectively.? Today hemoglobin stable at 8.1.? This (unknown) (no (unknown) (unknown) further bleeding.? (units (unknown) date) Hemoglobin stable.? unknown) Restart aspirin and rivaroxaban tomorrow. (unknown) (no (unknown) (unknown) have no infection (units (unknown) date) and is proceeding unknown) with healing. (unknown) (no (unknown) (unknown) hematoma left leg.? (unit s (unknown) date) With skin compromise unknown) over the hematoma will have wound care (unknown) (no (unknown) (unknown) hold due to renal (units (unknown) date) function. unknown) (unknown) (no (unknown) (unknown) household members: (units (unknown) date) children unknown) (unknown) (no (unknown) (unknown) hydrochlorothiazide (unit s (unknown) date) and torsemide.? Will unknown) increase daily furosemide to 40 mg da (unknown) (no (unknown) (unknown) lesly.? (units (unkno wn) date) Hydrochlorothiazide unknown) is not been ordered.? Will add torsemide. (unknown) (no (unknown) (unknown) is stable.? If (units (unknown) date) remains consistently unknown) stable can reinitiate rivaroxaban, aspirin (unknown) (no (unknown) (unknown) marital status: (units (unknown) date) unknown) (unknown) (no (unknown) (unknown) not been evaluated (units (unknown) date) yet.? Would be best unknown) to have consult and treatment plan prior (unknown) (no (unknown) (unknown) patient?s care is (units (unknown) date) appreciated.? This unknown) has been completed.? Wound care nurse (unknown) (no (unknown) (unknown) prophylactic.? Can (units (unknown) date) discontinue. unknown) (unknown) (no (unknown) (unknown) to discharge.? (units (unknown) date) Needed plan for care. unknown) (unknown) (no (unknown) (unknown) today; this time is (unit s (unknown) date) exclusive of unknown) procedural time. (unknown) (no (unknown) (unknown) treatment.? (units (un known) date) unknown) Result panel 86 (unknown) (no (unknown) (unknown) (no value) (units (unk nown) date) unknown) (unknown) (no (unknown) (unknown) Date of Service: (units (unknown) date) 01/27/22 unknown) (unknown) (no (unknown) (unknown) (no value) (units (unk nown) date) unknown) (unknown) (no (unknown) (unknown) - (units (unkno wn) date) unknown) (unknown) (no (unknown) (unknown) 01/30/22 05:45 (units (unknown) date) unknown) (unknown) (no (unknown) (unknown) 01/30/22 1536 (units ( unknown) date) unknown) (unknown) (no (unknown) (unknown) [facility] [address]uni ts (unknown) date) [address] unknown) [place] [address] (unknown) (no (unknown) (unknown) Laboratory Results - (uni ts (unknown) date) last 24 hr unknown) (unknown) (no (unknown) (unknown) Progress Note (units ( unknown) date) unknown) (unknown) (no (unknown) (unknown) (no value) (units (unk nown) date) unknown) (unknown) (no (unknown) (unknown) 05:45 05:45 (units (un known) date) unknown) (unknown) (no (unknown) (unknown) 01/30/22 01/30/22 (units (unknown) date) unknown) (unknown) (no (unknown) (unknown) 01/30/22 (units (unkno wn) date) unknown) (unknown) (no (unknown) (unknown) (past 8 hours): (units (unknown) date) unknown) (unknown) (no (unknown) (unknown) 08:00 01/30/22 (units (unknown) date) unknown) (unknown) (no (unknown) (unknown) 08:39 01/30/22 (units (unknown) date) unknown) (unknown) (no (unknown) (unknown) 1. Acute blood loss (unit s (unknown) date) anemia likely unknown) secondary to over coagulation with what (unknown) (no (unknown) (unknown) 11:50 (units (unkno wn) date) unknown) (unknown) (no (unknown) (unknown) 2. Acute kidney (units (unknown) date) injury likely unknown) secondary to blood loss anemia, present on (unknown) (no (unknown) (unknown) 3. Acute (units (unkno wn) date) decompensated heart unknown) failure with reduced ejection fraction, present on (unknown) (no (unknown) (unknown) [id number] (units (unkno wn) date) unknown) (unknown) (no (unknown) (unknown) 4. Probable left (units (unknown) date) knee cellulitis, unknown) acute, present on admission (unknown) (no (unknown) (unknown) 5. Coronary artery (units (unknown) date) disease, chronic unknown) (unknown) (no (unknown) (unknown) 6. Diabetes type 2, (unit s (unknown) date) appears to be well unknown) controlled (unknown) (no (unknown) (unknown) 7. Mobilization.? (units (unknown) date) Beginning to mobilize unknown) with physical therapy.? Continue with (unknown) (no (unknown) (unknown) 8. Urinary tract (units (unknown) date) infection with unknown) Renetta glabrata. Diflucan 400 mg daily for 14 (unknown) (no (unknown) (unknown) ?A1c is 6.5 (units (un known) date) unknown) (unknown) (no (unknown) (unknown) ALT 18 (units (unkno wn) date) unknown) (unknown) (no (unknown) (unknown) AST 27 (units (unkno wn) date) unknown) (unknown) (no (unknown) (unknown) Age/Sex: 76 / M (units (unknown) date) unknown) (unknown) (no (unknown) (unknown) Albumin 3.4 L (units ( unknown) date) unknown) (unknown) (no (unknown) (unknown) Albumin/Globulin (units (unknown) date) Ratio 0.9 L unknown) (unknown) (no (unknown) (unknown) Alkaline Phosphatase (uni ts (unknown) date) 121 unknown) (unknown) (no (unknown) (unknown) Anisocytosis 3+ H (units (unknown) date) unknown) (unknown) (no (unknown) (unknown) Anticoagulated (units (unknown) date) unknown) (unknown) (no (unknown) (unknown) Assessment + Plan (units (unknown) date) unknown) (unknown) (no (unknown) (unknown) Assessment + Plan (units (unknown) date) narrative: unknown) (unknown) (no (unknown) (unknown) Atrial fibrillation (unit s (unknown) date) unknown) (unknown) (no (unknown) (unknown) BUN 48 H (units (unkno wn) date) unknown) (unknown) (no (unknown) (unknown) BUN/Creatinine Ratio (uni ts (unknown) date) 25.7 H unknown) (unknown) (no (unknown) (unknown) Baso # (Auto) 0 (units (unknown) date) unknown) (unknown) (no (unknown) (unknown) Baso % (Auto) 0.4 (units (unknown) date) unknown) (unknown) (no (unknown) (unknown) Blood Pressure (units (unknown) date) 102/52 L 102/52 L unknown) 95/49 L (unknown) (no (unknown) (unknown) Calcium 8.5 (units (un known) date) unknown) (unknown) (no (unknown) (unknown) Carb controlled diet (uni ts (unknown) date) with a.c. 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 (unknown) (no (unknown) (unknown) Chloride 97 L (units ( unknown) date) unknown) (unknown) (no (unknown) (unknown) Closely monitor (units (unknown) date) renal function and unknown) hold nephrotoxic medications (Lisinopril).? (unknown) (no (unknown) (unknown) Code status: Full (units (unknown) date) code as discussed unknown) with the patient who identifies his son, (unknown) (no (unknown) (unknown) Consultants: (units (unknown) date) [facility] unknown) Surgery,? care and involvement in the (unknown) (no (unknown) (unknown) Continue carvedilol (unit s (unknown) date) 25 mg p.o. b.i.d., unknown) patient receives in 12.5 mg tablets (unknown) (no (unknown) (unknown) Continue home dose (units (unknown) date) of atorvastatin 40 mg unknown) p.o. at bedtime (unknown) (no (unknown) (unknown) Coronary artery (units (unknown) date) disease unknown) (unknown) (no (unknown) (unknown) Creatinine 1.87 H (units (unknown) date) unknown) (unknown) (no (unknown) (unknown) Critical Care time: (unit s (unknown) date) unknown) (unknown) (no (unknown) (unknown) : 1945 (units (unknown) date) Acct:[id number] unknown) (unknown) (no (unknown) (unknown) Deep Vein (units (unkn own) date) Thrombosis/Pulmonary unknown) Embolism Present on Admission: No (unknown) (no (unknown) (unknown) Diabetes (units (unkno wn) date) unknown) (unknown) (no (unknown) (unknown) Dispo: Unknown at (units (unknown) date) this time.? unknown) (unknown) (no (unknown) (unknown) David his surrogate (units (unknown) date) and POA. unknown) (unknown) (no (unknown) (unknown) Dyslipidemia (units (u nknown) date) unknown) (unknown) (no (unknown) (unknown) Eos # (Auto) 100 (units (unknown) date) unknown) (unknown) (no (unknown) (unknown) Eos % (Auto) 2.1 (units (unknown) date) unknown) (unknown) (no (unknown) (unknown) Estimated GFR 37 L (units (unknown) date) unknown) (unknown) (no (unknown) (unknown) Exam (units (unkno wn) date) unknown) (unknown) (no (unknown) (unknown) FEN: IV fluids: (units (unknown) date) saline lock, diet: unknown) carb controlled diet (unknown) (no (unknown) (unknown) Family History (units (unknown) date) (Reviewed 01/27/22 @ unknown) 07:53 by Tony Aceves MD) (unknown) (no (unknown) (unknown) GFR improved to 37 (units (unknown) date) today.? Renal unknown) function is improving again today.? Follow (unknown) (no (unknown) (unknown) Globulin 4.0 (units (u nknown) date) unknown) (unknown) (no (unknown) (unknown) Glucose 139 H (units ( unknown) date) unknown) (unknown) (no (unknown) (unknown) Hct 30.1 L (units (unk nown) date) unknown) (unknown) (no (unknown) (unknown) He is currently (units (unknown) date) saline lock due to unknown) volume overload (unknown) (no (unknown) (unknown) He will receive his (unit s (unknown) date) home dose of Lantus unknown) 30 units b.i.d. Metformin remains on (unknown) (no (unknown) (unknown) Hgb 9.7 L (units (unkn own) date) unknown) (unknown) (no (unknown) (unknown) Hx of (units (unkno wn) date) cholecystectomy unknown) (unknown) (no (unknown) (unknown) Hypertension (units (u nknown) date) unknown) (unknown) (no (unknown) (unknown) I spent a total of (units (unknown) date) [] minutes of unknown) critical care time on this patient's care (unknown) (no (unknown) (unknown) In the ER, he (units ( unknown) date) received IV Lasix 80 unknown) mg in addition to his home oral dose of (unknown) (no (unknown) (unknown) Initially vancomycin (uni ts (unknown) date) that was largely unknown) prophylactic since no persistent signs of (unknown) (no (unknown) (unknown) Labs (units (unkno wn) date) unknown) (unknown) (no (unknown) (unknown) Labs: (units (unkno wn) date) unknown) (unknown) (no (unknown) (unknown) Low-dose (units (unkno wn) date) correctional scale unknown) insulin and adjust as needed (unknown) (no (unknown) (unknown) Lymph # (Auto) 700 L (uni ts (unknown) date) unknown) (unknown) (no (unknown) (unknown) Lymph % (Auto) 13.2 (unit s (unknown) date) L unknown) (unknown) (no (unknown) (unknown) MCH 25.6 L (units (unk nown) date) unknown) (unknown) (no (unknown) (unknown) MCHC 32.2 (units (unkn own) date) unknown) (unknown) (no (unknown) (unknown) MCV 79.5 L (units (unk nown) date) unknown) (unknown) (no (unknown) (unknown) Medical History (units (unknown) date) (Reviewed 01/27/22 @ unknown) 07:53 by Tony Aceves MD) (unknown) (no (unknown) (unknown) Lajas # (Auto) 500 (units (unknown) date) unknown) (unknown) (no (unknown) (unknown) Lajas % (Auto) 9.5 (units (unknown) date) unknown) (unknown) (no (unknown) (unknown) Neut # (Auto) 3800 (units (unknown) date) unknown) (unknown) (no (unknown) (unknown) Neut % (Auto) 74.8 (units (unknown) date) unknown) (unknown) (no (unknown) (unknown) Objective (units (unkn own) date) unknown) (unknown) (no (unknown) (unknown) Orthopedic surgery (units (unknown) date) has been consulted unknown) and seen the patient. (unknown) (no (unknown) (unknown) Other Adopted (units ( unknown) date) unknown) (unknown) (no (unknown) (unknown) Oxygen Delivery (units (unknown) date) Method Room Air unknown) (unknown) (no (unknown) (unknown) Oxygen Flow Rate 0 (units (unknown) date) unknown) (unknown) (no (unknown) (unknown) Oxygen Flow Rate 0 0 (uni ts (unknown) date) unknown) (unknown) (no (unknown) (unknown) PFSH (units (unkno wn) date) unknown) (unknown) (no (unknown) (unknown) Patient is currently (uni ts (unknown) date) recovering from unknown) biventricular heart catheterization (unknown) (no (unknown) (unknown) Patient is? (units (un known) date) inpatient service due unknown) to the severity of disease, risks of further (unknown) (no (unknown) (unknown) Patient received 2 (units (unknown) date) units PRBC in the unknown) emergency department increasing his H+H (unknown) (no (unknown) (unknown) Patient to follow-up (uni ts (unknown) date) with wound care unknown) specialist as an outpatient.? Appears to (unknown) (no (unknown) (unknown) Patient was fluid (units (unknown) date) resuscitated in the unknown) emergency department 2 L (unknown) (no (unknown) (unknown) Patient's proBNP was (uni ts (unknown) date) almost 7200.? unknown) Improved yesterday at 5570. (unknown) (no (unknown) (unknown) Patient's (units (unkn own) date) rivaroxaban, aspirin unknown) and clopidogrel are being held.? No evidence of (unknown) (no (unknown) (unknown) Patient: (units (unkno wn) date) Osmel Baxter MR#: unknown) M000 (unknown) (no (unknown) (unknown) Plt Count 173 (units ( unknown) date) unknown) (unknown) (no (unknown) (unknown) Potassium 3.7 (units ( unknown) date) unknown) (unknown) (no (unknown) (unknown) Provider: (units (unkn own) date) Chary Ramirez MD unknown) (unknown) (no (unknown) (unknown) Pulse Oximetry 95 96 (uni ts (unknown) date) unknown) (unknown) (no (unknown) (unknown) Pulse Rate 78 75 69 (unit s (unknown) date) unknown) (unknown) (no (unknown) (unknown) Quality (units (unkno wn) date) unknown) (unknown) (no (unknown) (unknown) RBC 3.79 L (units (unk nown) date) unknown) (unknown) (no (unknown) (unknown) RBC Morphology See (units (unknown) date) below unknown) (unknown) (no (unknown) (unknown) RDW 23.4 H (units (unk nown) date) unknown) (unknown) (no (unknown) (unknown) Respiratory Rate 18 (unit s (unknown) date) 18 unknown) (unknown) (no (unknown) (unknown) Result Diagrams: (units (unknown) date) 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) (unknown) (no (unknown) (unknown) Signed (units (unkno wn) date) By:<Electronically unknown) signed by Chary Ramirez MD> (unknown) (no (unknown) (unknown) Sleep apnea (units (un known) date) unknown) (unknown) (no (unknown) (unknown) Smoking Status: (units (unknown) date) Former smoker unknown) (unknown) (no (unknown) (unknown) Social History (units (unknown) date) (Updated 09/25/18 @ unknown) 11:17 by Telma Dickey DO) (unknown) (no (unknown) (unknown) Sodium 135 L (units (u nknown) date) unknown) (unknown) (no (unknown) (unknown) Surgical History (units (unknown) date) (Reviewed 01/27/22 @ unknown) 07:53 by Tony Aceves MD) (unknown) (no (unknown) (unknown) Temperature 98.2 F (units (unknown) date) 98.0 F unknown) (unknown) (no (unknown) (unknown) Time Spent With (units (unknown) date) Patient unknown) (unknown) (no (unknown) (unknown) Total Bilirubin 1.5 (unit s (unknown) date) H unknown) (unknown) (no (unknown) (unknown) Total Protein 7.4 (units (unknown) date) unknown) (unknown) (no (unknown) (unknown) VTE (units (unkno wn) date) unknown) (unknown) (no (unknown) (unknown) VTE Prophylaxis: (units (unknown) date) Wells risk score unknown) 1.5.? Pharmacological VTE prophylaxis is (unknown) (no (unknown) (unknown) Vital Signs (units (un known) date) unknown) (unknown) (no (unknown) (unknown) WBC 5.1 (units (unkno wn) date) unknown) (unknown) (no (unknown) (unknown) Wound care consulted (uni ts (unknown) date) due to compromised unknown) skin at site of hematoma left leg.? Has (unknown) (no (unknown) (unknown) [Embedded Image Not (unit s (unknown) date) Available] unknown) (unknown) (no (unknown) (unknown) admission (units (unkn own) date) unknown) (unknown) (no (unknown) (unknown) appears to be triple (uni ts (unknown) date) anti-platelet unknown) therapy, present on admission.? Causing (unknown) (no (unknown) (unknown) consult completed. (units (unknown) date) unknown) (unknown) (no (unknown) (unknown) contraindicated in (units (unknown) date) the setting of active unknown) bleeding will do SCD? (unknown) (no (unknown) (unknown) daily.? (units (o wn) date) Hydrochlorothiazide unknown) is not been ordered.? Will add torsemide. (unknown) (no (unknown) (unknown) days. (units (unkno wn) date) unknown) (unknown) (no (unknown) (unknown) details: x 9 (uni ts (unknown) date) months unknown) (unknown) (no (unknown) (unknown) disease progression (unit s (unknown) date) and this stay is unknown) expected to exceed 2 midnights. (unknown) (no (unknown) (unknown) evaluate.? Consult (units (unknown) date) completed by wound unknown) care nurse.? Continue current treatment.? (unknown) (no (unknown) (unknown) follow-up with wound (uni ts (unknown) date) critical care clinical nurse specialist after unknown) discharge. (unknown) (no (unknown) (unknown) from 6.7-7.9 and (units (unknown) date) 20.8-24.5 unknown) respectively.? Today hemoglobin stable at 8.1.? This (unknown) (no (unknown) (unknown) further bleeding.? (units (unknown) date) Hemoglobin stable.? unknown) Restart aspirin and rivaroxaban tomorrow. (unknown) (no (unknown) (unknown) have no infection (units (unknown) date) and is proceeding unknown) with healing. (unknown) (no (unknown) (unknown) hematoma left leg.? (unit s (unknown) date) With skin compromise unknown) over the hematoma will have wound care (unknown) (no (unknown) (unknown) hold due to renal (units (unknown) date) function. unknown) (unknown) (no (unknown) (unknown) household members: (units (unknown) date) children unknown) (unknown) (no (unknown) (unknown) hydrochlorothiazide (unit s (unknown) date) and torsemide.? Will unknown) increase daily furosemide to 40 mg (unknown) (no (unknown) (unknown) infection. This has (unit s (unknown) date) been discontinued. unknown) (unknown) (no (unknown) (unknown) is stable.? (units (un known) date) Rivaroxaban and unknown) aspirin has been re-initiated. (unknown) (no (unknown) (unknown) labs. (units (unkno wn) date) unknown) (unknown) (no (unknown) (unknown) marital status: (units (unknown) date) unknown) (unknown) (no (unknown) (unknown) not been evaluated (units (unknown) date) yet.? Wound care unknown) nurse has seen the patient. Recommends (unknown) (no (unknown) (unknown) patient?s care is (units (unknown) date) appreciated.? This unknown) has been completed.? Wound care nurse (unknown) (no (unknown) (unknown) today; this time is (unit s (unknown) date) exclusive of unknown) procedural time. (unknown) (no (unknown) (unknown) treatment.? (units (un known) date) unknown) Result panel 87 (unknown) (no date) (unknown) (unknown) (no value) (units (un known) unknown) (unknown) (no date) (unknown) (unknown) NO GROWTH (units (unk nown) AFTER 4 DAYS unknown) Result panel 88 (unknown) (no date) (unknown) (unknown) (no value) (units (un known) unknown) (unknown) (no date) (unknown) (unknown) NO GROWTH (units (unk nown) AFTER 4 DAYS unknown) Result panel 89 (unknown) (no date) (unknown) (unknown) 9.4 ug/mL (unkn own) Result panel 90 (unknown) (no date) (unknown) (unknown) 0.8 (units unknown) (unknown) (unknown) (no date) (unknown) (unknown) 1.1 mg/dL (unkn own) (unknown) (no date) (unknown) (unknown) 132 mmol/L (unkn own) (unknown) (no date) (unknown) (unknown) 2.00 mg/dL (unkn own) (unknown) (no date) (unknown) (unknown) 21 IU/L (unkn own) (unknown) (no date) (unknown) (unknown) 25 mmol/L (unkn own) (unknown) (no date) (unknown) (unknown) 28.5 (units unknown) (unknown) (unknown) (no date) (unknown) (unknown) 3.2 g/dL (unkn own) (unknown) (no date) (unknown) (unknown) 3.7 mmol/L (unkn own) (unknown) (no date) (unknown) (unknown) 3.8 g/dL (unkn own) (unknown) (no date) (unknown) (unknown) 34 mL/min (unkn own) (unknown) (no date) (unknown) (unknown) 36 IU/L (unkn own) (unknown) (no date) (unknown) (unknown) 57 mg/dL (unkn own) (unknown) (no date) (unknown) (unknown) 7.0 g/dL (unkn own) (unknown) (no date) (unknown) (unknown) 8.3 mg/dL (unkn own) (unknown) (no date) (unknown) (unknown) 90 mg/dL (unkn own) (unknown) (no date) (unknown) (unknown) 99 U/L (unkn own) (unknown) (no date) (unknown) (unknown) 99 mmol/L (unkn own) Result panel 91 (unknown) (no date) (unknown) (unknown) 0 /uL (unkn own) (unknown) (no date) (unknown) (unknown) 0.4 % (unkn own) (unknown) (no date) (unknown) (unknown) 10.1 % (unkn own) (unknown) (no date) (unknown) (unknown) 17.9 % (unkn own) (unknown) (no date) (unknown) (unknown) 181 X10 3/uL (unkn own) (unknown) (no date) (unknown) (unknown) 200 /uL (unkn own) (unknown) (no date) (unknown) (unknown) 23.7 % (unkn own) (unknown) (no date) (unknown) (unknown) 25.8 PG (unkn own) (unknown) (no date) (unknown) (unknown) 26.4 % (unkn own) (unknown) (no date) (unknown) (unknown) 3.37 X10 6/uL (unkn own) (unknown) (no date) (unknown) (unknown) 3.6 % (unkn own) (unknown) (no date) (unknown) (unknown) 32.8 % (unkn own) (unknown) (no date) (unknown) (unknown) 3400 /uL (unkn own) (unknown) (no date) (unknown) (unknown) 5.0 X10 3/uL (unkn own) (unknown) (no date) (unknown) (unknown) 500 /uL (unkn own) (unknown) (no date) (unknown) (unknown) 68.0 % (unkn own) (unknown) (no date) (unknown) (unknown) 78.5 fL (unkn own) (unknown) (no date) (unknown) (unknown) 8.7 g/dL (unkn own) (unknown) (no date) (unknown) (unknown) 900 /uL (unkn own) Result panel 92 (unknown) (no date) (unknown) (unknown) 0 /uL (unkn own) (unknown) (no date) (unknown) (unknown) 0.4 % (unkn own) (unknown) (no date) (unknown) (unknown) 10.1 % (unkn own) (unknown) (no date) (unknown) (unknown) 17.9 % (unkn own) (unknown) (no date) (unknown) (unknown) 181 X10 3/uL (unkn own) (unknown) (no date) (unknown) (unknown) 200 /uL (unkn own) (unknown) (no date) (unknown) (unknown) 23.7 % (unkn own) (unknown) (no date) (unknown) (unknown) 25.8 PG (unkn own) (unknown) (no date) (unknown) (unknown) 26.4 % (unkn own) (unknown) (no date) (unknown) (unknown) 3+ (units (unkn own) unknown) (unknown) (no date) (unknown) (unknown) 3.37 X10 6/uL (unkn own) (unknown) (no date) (unknown) (unknown) 3.6 % (unkn own) (unknown) (no date) (unknown) (unknown) 32.8 % (unkn own) (unknown) (no date) (unknown) (unknown) 3400 /uL (unkn own) (unknown) (no date) (unknown) (unknown) 5.0 X10 3/uL (unkn own) (unknown) (no date) (unknown) (unknown) 500 /uL (unkn own) (unknown) (no date) (unknown) (unknown) 68.0 % (unkn own) (unknown) (no date) (unknown) (unknown) 78.5 fL (unkn own) (unknown) (no date) (unknown) (unknown) 8.7 g/dL (unkn own) (unknown) (no date) (unknown) (unknown) 900 /uL (unkn own) (unknown) (no date) (unknown) (unknown) See Below (units (unk nown) unknown) Result panel 93 (unknown) (no (unknown) (unknown) (no value) (units (unk nown) date) unknown) (unknown) (no (unknown) (unknown) Date of Service: (units (unknown) date) 01/27/22 unknown) (unknown) (no (unknown) (unknown) (no value) (units (unk nown) date) unknown) (unknown) (no (unknown) (unknown) - (units (unkno wn) date) unknown) (unknown) (no (unknown) (unknown) 01/31/22 05:12 (units (unknown) date) unknown) (unknown) (no (unknown) (unknown) [facility] [id number] (uni ts (unknown) date) [address] unknown) [place] [address] (unknown) (no (unknown) (unknown) Laboratory Results - (uni ts (unknown) date) last 24 hr unknown) (unknown) (no (unknown) (unknown) Progress Note (units ( unknown) date) unknown) (unknown) (no (unknown) (unknown) (no value) (units (unk nown) date) unknown) (unknown) (no (unknown) (unknown) 01/30/22 01/31/22 (units (unknown) date) 01/31/22 unknown) (unknown) (no (unknown) (unknown) 20:10 05:12 05:12 (units (unknown) date) unknown) (unknown) (no (unknown) (unknown) 01/31/22 (units (unkno wn) date) unknown) (unknown) (no (unknown) (unknown) (past 8 hours): (units (unknown) date) unknown) (unknown) (no (unknown) (unknown) 05:30 01/31/22 (units (unknown) date) unknown) (unknown) (no (unknown) (unknown) 07:45 (units (unkno wn) date) unknown) (unknown) (no (unknown) (unknown) 08:48 01/31/22 (units (unknown) date) unknown) (unknown) (no (unknown) (unknown) 1. Acute blood loss (unit s (unknown) date) anemia likely unknown) secondary to over coagulation with what (unknown) (no (unknown) (unknown) 2. Acute kidney (units (unknown) date) injury likely unknown) secondary to blood loss anemia, present on (unknown) (no (unknown) (unknown) 3. Acute (units (unkno wn) date) decompensated heart unknown) failure with reduced ejection fraction, present on (unknown) (no (unknown) (unknown) [address]1942 (units (unkno wn) date) unknown) (unknown) (no (unknown) (unknown) 4. Probable left (units (unknown) date) knee cellulitis, unknown) acute, present on admission (unknown) (no (unknown) (unknown) 5. Coronary artery (units (unknown) date) disease, chronic unknown) (unknown) (no (unknown) (unknown) 6. Diabetes type 2, (unit s (unknown) date) appears to be well unknown) controlled (unknown) (no (unknown) (unknown) 7. Mobilization.? (units (unknown) date) Beginning to mobilize unknown) with physical therapy.? Continue with (unknown) (no (unknown) (unknown) 8. 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 Diflucan 400 mg daily for 14 (unknown) (no (unknown) (unknown) ?A1c is 6.5 (units (un known) date) unknown) (unknown) (no (unknown) (unknown) ALT 21 (units (unkno wn) date) unknown) (unknown) (no (unknown) (unknown) AST 36 (units (unkno wn) date) unknown) (unknown) (no (unknown) (unknown) Age/Sex: 76 / M (units (unknown) date) unknown) (unknown) (no (unknown) (unknown) Albumin 3.2 L (units ( unknown) date) unknown) (unknown) (no (unknown) (unknown) Albumin/Globulin (units (unknown) date) Ratio 0.8 L unknown) (unknown) (no (unknown) (unknown) Alkaline Phosphatase (uni ts (unknown) date) 99 unknown) (unknown) (no (unknown) (unknown) Anisocytosis 3+ H (units (unknown) date) unknown) (unknown) (no (unknown) (unknown) Anticoagulated (units (unknown) date) unknown) (unknown) (no (unknown) (unknown) Assessment + Plan (units (unknown) date) unknown) (unknown) (no (unknown) (unknown) Assessment + Plan (units (unknown) date) narrative: unknown) (unknown) (no (unknown) (unknown) Atrial fibrillation (unit s (unknown) date) unknown) (unknown) (no (unknown) (unknown) BUN 57 H (units (unkno wn) date) unknown) (unknown) (no (unknown) (unknown) BUN/Creatinine Ratio (uni ts (unknown) date) 28.5 H unknown) (unknown) (no (unknown) (unknown) Baso # (Auto) 0 (units (unknown) date) unknown) (unknown) (no (unknown) (unknown) Baso % (Auto) 0.4 (units (unknown) date) unknown) (unknown) (no (unknown) (unknown) Blood Pressure (units (unknown) date) 106/44 L 100/47 L unknown) (unknown) (no (unknown) (unknown) Calcium 8.3 L (units ( unknown) date) unknown) (unknown) (no (unknown) (unknown) Carb controlled diet (uni ts (unknown) date) with a.c. 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 (unknown) (no (unknown) (unknown) Chloride 99 (units (un known) date) unknown) (unknown) (no (unknown) (unknown) Closely monitor (units (unknown) date) renal function and unknown) hold nephrotoxic medications (Lisinopril).? (unknown) (no (unknown) (unknown) Code status: Full (units (unknown) date) code as discussed unknown) with the patient who identifies his son, (unknown) (no (unknown) (unknown) Consultants: (units (unknown) date) [facility] unknown) Surgery,? care and involvement in the (unknown) (no (unknown) (unknown) Continue carvedilol (unit s (unknown) date) 25 mg p.o. b.i.d., unknown) patient receives in 12.5 mg tablets (unknown) (no (unknown) (unknown) Continue home dose (units (unknown) date) of atorvastatin 40 mg unknown) p.o. at bedtime (unknown) (no (unknown) (unknown) Coronary artery (units (unknown) date) disease unknown) (unknown) (no (unknown) (unknown) Creatinine 2.00 H (units (unknown) date) unknown) (unknown) (no (unknown) (unknown) Critical Care time: (unit s (unknown) date) unknown) (unknown) (no (unknown) (unknown) : 1945 (units (unknown) date) Acct:[id number] unknown) (unknown) (no (unknown) (unknown) Deep Vein (units (unkn own) date) Thrombosis/Pulmonary unknown) Embolism Present on Admission: No (unknown) (no (unknown) (unknown) Diabetes (units (unkno wn) date) unknown) (unknown) (no (unknown) (unknown) Dispo: Unknown at (units (unknown) date) this time.? unknown) (unknown) (no (unknown) (unknown) David his surrogate (units (unknown) date) and POA. unknown) (unknown) (no (unknown) (unknown) Dyslipidemia (units (u nknown) date) unknown) (unknown) (no (unknown) (unknown) Eos # (Auto) 200 (units (unknown) date) unknown) (unknown) (no (unknown) (unknown) Eos % (Auto) 3.6 (units (unknown) date) unknown) (unknown) (no (unknown) (unknown) Estimated GFR 34 L (units (unknown) date) unknown) (unknown) (no (unknown) (unknown) Exam (units (unkno wn) date) unknown) (unknown) (no (unknown) (unknown) FEN: IV fluids: (units (unknown) date) saline lock, diet: unknown) carb controlled diet (unknown) (no (unknown) (unknown) Family History (units (unknown) date) (Reviewed 01/27/22 @ unknown) 07:53 by Tony Aceves MD) (unknown) (no (unknown) (unknown) GFR improved to 34 (units (unknown) date) today.? Creatinine is unknown) 2.00. Renal function is stable and com (unknown) (no (unknown) (unknown) Globulin 3.8 (units (u nknown) date) unknown) (unknown) (no (unknown) (unknown) Glucose 90 (units (unk nown) date) unknown) (unknown) (no (unknown) (unknown) Hct 26.4 L (units (unk nown) date) unknown) (unknown) (no (unknown) (unknown) He is currently (units (unknown) date) saline lock due to unknown) volume overload (unknown) (no (unknown) (unknown) He will receive his (unit s (unknown) date) home dose of Lantus unknown) 30 units b.i.d. Metformin remains on (unknown) (no (unknown) (unknown) Hgb 8.7 L (units (unkn own) date) unknown) (unknown) (no (unknown) (unknown) Hx of (units (unkno wn) date) cholecystectomy unknown) (unknown) (no (unknown) (unknown) Hypertension (units (u nknown) date) unknown) (unknown) (no (unknown) (unknown) I spent a total of (units (unknown) date) [] minutes of unknown) critical care time on this patient's care (unknown) (no (unknown) (unknown) In the ER, he (units ( unknown) date) received IV Lasix 80 unknown) mg in addition to his home oral dose of (unknown) (no (unknown) (unknown) Initially vancomycin (uni ts (unknown) date) that was largely unknown) prophylactic since no persistent signs of (unknown) (no (unknown) (unknown) Labs (units (unkno wn) date) unknown) (unknown) (no (unknown) (unknown) Labs: (units (unkno wn) date) unknown) (unknown) (no (unknown) (unknown) Low-dose (units (unkno wn) date) correctional scale unknown) insulin and adjust as needed (unknown) (no (unknown) (unknown) Lymph # (Auto) 900 L (uni ts (unknown) date) unknown) (unknown) (no (unknown) (unknown) Lymph % (Auto) 17.9 (unit s (unknown) date) L unknown) (unknown) (no (unknown) (unknown) MCH 25.8 L (units (unk nown) date) unknown) (unknown) (no (unknown) (unknown) MCHC 32.8 (units (unkn own) date) unknown) (unknown) (no (unknown) (unknown) MCV 78.5 L (units (unk nown) date) unknown) (unknown) (no (unknown) (unknown) Medical History (units (unknown) date) (Reviewed 01/27/22 @ unknown) 07:53 by Tony Aceves MD) (unknown) (no (unknown) (unknown) Lajas # (Auto) 500 (units (unknown) date) unknown) (unknown) (no (unknown) (unknown) Lajas % (Auto) 10.1 (units (unknown) date) unknown) (unknown) (no (unknown) (unknown) Neut # (Auto) 3400 (units (unknown) date) unknown) (unknown) (no (unknown) (unknown) Neut % (Auto) 68.0 (units (unknown) date) unknown) (unknown) (no (unknown) (unknown) Objective (units (unkn own) date) unknown) (unknown) (no (unknown) (unknown) Orthopedic surgery (units (unknown) date) has been consulted unknown) and seen the patient. (unknown) (no (unknown) (unknown) Other Adopted (units ( unknown) date) unknown) (unknown) (no (unknown) (unknown) Oxygen Delivery (units (unknown) date) Method Room Air unknown) (unknown) (no (unknown) (unknown) Oxygen Flow Rate 0 (units (unknown) date) unknown) (unknown) (no (unknown) (unknown) Oxygen Flow Rate 0 0 (uni ts (unknown) date) unknown) (unknown) (no (unknown) (unknown) PFSH (units (unkno wn) date) unknown) (unknown) (no (unknown) (unknown) Patient is currently (uni ts (unknown) date) recovering from unknown) biventricular heart catheterization (unknown) (no (unknown) (unknown) Patient is? (units (un known) date) inpatient service due unknown) to the severity of disease, risks of further (unknown) (no (unknown) (unknown) Patient received 2 (units (unknown) date) units PRBC in the unknown) emergency department increasing his H+H (unknown) (no (unknown) (unknown) Patient to follow-up (uni ts (unknown) date) with wound care unknown) specialist as an outpatient.? Appears to (unknown) (no (unknown) (unknown) Patient was fluid (units (unknown) date) resuscitated in the unknown) emergency department 2 L (unknown) (no (unknown) (unknown) Patient's proBNP was (uni ts (unknown) date) almost 7200.? unknown) Improved yesterday at 5570. (unknown) (no (unknown) (unknown) Patient's (units (unkn own) date) rivaroxaban, aspirin unknown) and clopidogrel are being held.? No evidence of (unknown) (no (unknown) (unknown) Patient: (units (unkno wn) date) Osmel Baxter MR#: unknown) M000 (unknown) (no (unknown) (unknown) Plt Count 181 (units ( unknown) date) unknown) (unknown) (no (unknown) (unknown) Potassium 3.7 (units ( unknown) date) unknown) (unknown) (no (unknown) (unknown) Provider: (units (unkn own) date) Chary Ramirez MD unknown) (unknown) (no (unknown) (unknown) Pulse Oximetry 98 97 (uni ts (unknown) date) unknown) (unknown) (no (unknown) (unknown) Pulse Rate 63 69 65 (unit s (unknown) date) unknown) (unknown) (no (unknown) (unknown) Quality (units (unkno wn) date) unknown) (unknown) (no (unknown) (unknown) RBC 3.37 L (units (unk nown) date) unknown) (unknown) (no (unknown) (unknown) RBC Morphology See (units (unknown) date) below unknown) (unknown) (no (unknown) (unknown) RDW 23.7 H (units (un known) date) unknown) (unknown) (no (unknown) (unknown) Respiratory Rate 14 (unit s (unknown) date) 18 unknown) (unknown) (no (unknown) (unknown) Result Diagrams: (units (unknown) date) 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) (unknown) (no (unknown) (unknown) Signed By: (units (unk nown) date) unknown) (unknown) (no (unknown) (unknown) Sleep apnea (units (un known) date) unknown) (unknown) (no (unknown) (unknown) Smoking Status: (units (unknown) date) Former smoker unknown) (unknown) (no (unknown) (unknown) Social History (units (unknown) date) (Updated 09/25/18 @ unknown) 11:17 by Telma Dickey DO) (unknown) (no (unknown) (unknown) Sodium 132 L (units (u nknown) date) unknown) (unknown) (no (unknown) (unknown) Surgical History (units (unknown) date) (Reviewed 01/27/22 @ unknown) 07:53 by Tony Aceves MD) (unknown) (no (unknown) (unknown) Temperature 97.2 F L (uni ts (unknown) date) 97.1 F L unknown) (unknown) (no (unknown) (unknown) Time Spent With (units (unknown) date) Patient unknown) (unknown) (no (unknown) (unknown) Total Bilirubin 1.1 (unit s (unknown) date) unknown) (unknown) (no (unknown) (unknown) Total Protein 7.0 (units (unknown) date) unknown) (unknown) (no (unknown) (unknown) VTE (units (unkno wn) date) unknown) (unknown) (no (unknown) (unknown) VTE Prophylaxis: (units (unknown) date) Wells risk score unknown) 1.5.? Pharmacological VTE prophylaxis is (unknown) (no (unknown) (unknown) Vancomycin Trough (units (unknown) date) 9.4 L unknown) (unknown) (no (unknown) (unknown) Vital Signs (units (un known) date) unknown) (unknown) (no (unknown) (unknown) WBC 5.0 (units (unkno wn) date) unknown) (unknown) (no (unknown) (unknown) Wound care consulted (uni ts (unknown) date) due to compromised unknown) skin at site of hematoma left leg.? Has (unknown) (no (unknown) (unknown) [Embedded Image Not (unit s (unknown) date) Available] unknown) (unknown) (no (unknown) (unknown) admission (units (unkn own) date) unknown) (unknown) (no (unknown) (unknown) appears to be triple (uni ts (unknown) date) anti-platelet unknown) therapy, present on admission.? Causing (unknown) (no (unknown) (unknown) consult completed. (units (unknown) date) unknown) (unknown) (no (unknown) (unknown) contraindicated in (units (unknown) date) the setting of active unknown) bleeding will do SCD? (unknown) (no (unknown) (unknown) daily.? (units (unkno wn) date) Hydrochlorothiazide unknown) is not been ordered.? Will add torsemide. (unknown) (no (unknown) (unknown) days. (units (unkno wn) date) unknown) (unknown) (no (unknown) (unknown) details: x 9 (uni ts (unknown) date) months unknown) (unknown) (no (unknown) (unknown) disease progression (unit s (unknown) date) and this stay is unknown) expected to exceed 2 midnights. (unknown) (no (unknown) (unknown) evaluate.? Consult (units (unknown) date) completed by wound unknown) care nurse.? Continue current treatment.? (unknown) (no (unknown) (unknown) follow-up with wound (uni ts (unknown) date) critical care clinical nurse specialist after unknown) discharge. (unknown) (no (unknown) (unknown) from 6.7-7.9 and (units (unknown) date) 20.8-24.5 unknown) respectively.? Today hemoglobin stable at 8.1.? This (unknown) (no (unknown) (unknown) further bleeding.? (units (unknown) date) Hemoglobin stable.? unknown) Restart aspirin and rivaroxaban tomorrow. (unknown) (no (unknown) (unknown) have no infection (units (unknown) date) and is proceeding unknown) with healing. (unknown) (no (unknown) (unknown) hematoma left leg.? (unit s (unknown) date) With skin compromise unknown) over the hematoma will have wound care (unknown) (no (unknown) (unknown) hold due to renal (units (unknown) date) function. unknown) (unknown) (no (unknown) (unknown) household members: (units (unknown) date) children unknown) (unknown) (no (unknown) (unknown) hydrochlorothiazide (unit s (unknown) date) and torsemide.? Will unknown) increase daily furosemide to 40 mg (unknown) (no (unknown) (unknown) infection.? This has (uni ts (unknown) date) been discontinued. unknown) (unknown) (no (unknown) (unknown) is stable.? (units (un known) date) Rivaroxaban and unknown) aspirin has been re-initiated. (unknown) (no (unknown) (unknown) marital status: (units (unknown) date) unknown) (unknown) (no (unknown) (unknown) not been evaluated (units (unknown) date) yet.? Wound care unknown) nurse has seen the patient.? Recommends (unknown) (no (unknown) (unknown) patient?s care is (units (unknown) date) appreciated.? This unknown) has been completed.? Wound care nurse (unknown) (no (unknown) (unknown) promised. (units (unkn own) date) unknown) (unknown) (no (unknown) (unknown) today; this time is (unit s (unknown) date) exclusive of unknown) procedural time. (unknown) (no (unknown) (unknown) treatment.? (units (un known) date) unknown) Result panel 94 (unknown) (no (unknown) (unknown) (no value) (units (unk nown) date) unknown) (unknown) (no (unknown) (unknown) Date of Service: (units (unknown) date) 01/27/22 unknown) (unknown) (no (unknown) (unknown) (no value) (units (unk nown) date) unknown) (unknown) (no (unknown) (unknown) - (units (unkno wn) date) unknown) (unknown) (no (unknown) (unknown) 01/31/22 05:12 (units (unknown) date) unknown) (unknown) (no (unknown) (unknown) [facility] [address] (uni ts (unknown) date) [address] unknown) [place] [address] (unknown) (no (unknown) (unknown) Laboratory Results - (uni ts (unknown) date) last 24 hr unknown) (unknown) (no (unknown) (unknown) Progress Note (units ( unknown) date) unknown) (unknown) (no (unknown) (unknown) (no value) (units (unk nown) date) unknown) (unknown) (no (unknown) (unknown) 01/30/22 01/31/22 (units (unknown) date) 01/31/22 unknown) (unknown) (no (unknown) (unknown) 20:10 05:12 05:12 (units (unknown) date) unknown) (unknown) (no (unknown) (unknown) 01/31/22 (units (unkno wn) date) unknown) (unknown) (no (unknown) (unknown) (past 8 hours): (units (unknown) date) unknown) (unknown) (no (unknown) (unknown) 05:30 01/31/22 (units (unknown) date) unknown) (unknown) (no (unknown) (unknown) 07:45 (units (unkno wn) date) unknown) (unknown) (no (unknown) (unknown) 08:48 01/31/22 (units (unknown) date) unknown) (unknown) (no (unknown) (unknown) 1. Acute blood loss (unit s (unknown) date) anemia likely unknown) secondary to over coagulation with what (unknown) (no (unknown) (unknown) 2. Acute kidney (units (unknown) date) injury likely unknown) secondary to blood loss anemia, present on (unknown) (no (unknown) (unknown) 3. Acute (units (unkno wn) date) decompensated heart unknown) failure with reduced ejection fraction, present on (unknown) (no (unknown) (unknown) [id number] (units (unkno wn) date) unknown) (unknown) (no (unknown) (unknown) 4. Probable left (units (unknown) date) knee cellulitis, unknown) acute, present on admission (unknown) (no (unknown) (unknown) 5. Coronary artery (units (unknown) date) disease, chronic unknown) (unknown) (no (unknown) (unknown) 6. Diabetes type 2, (unit s (unknown) date) appears to be well unknown) controlled (unknown) (no (unknown) (unknown) 7. Mobilization.? (units (unknown) date) Beginning to mobilize unknown) with physical therapy.? Continue with (unknown) (no (unknown) (unknown) 8. 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 Diflucan 400 mg daily for 14 (unknown) (no (unknown) (unknown) ?A1c is 6.5 (units (un known) date) unknown) (unknown) (no (unknown) (unknown) ALT 21 (units (unkno wn) date) unknown) (unknown) (no (unknown) (unknown) AST 36 (units (unkno wn) date) unknown) (unknown) (no (unknown) (unknown) Age/Sex: 76 / M (units (unknown) date) unknown) (unknown) (no (unknown) (unknown) Albumin 3.2 L (units ( unknown) date) unknown) (unknown) (no (unknown) (unknown) Albumin/Globulin (units (unknown) date) Ratio 0.8 L unknown) (unknown) (no (unknown) (unknown) Alkaline Phosphatase (uni ts (unknown) date) 99 unknown) (unknown) (no (unknown) (unknown) Anisocytosis 3+ H (units (unknown) date) unknown) (unknown) (no (unknown) (unknown) Anticoagulated (units (unknown) date) unknown) (unknown) (no (unknown) (unknown) Assessment + Plan (units (unknown) date) unknown) (unknown) (no (unknown) (unknown) Assessment + Plan (units (unknown) date) narrative: unknown) (unknown) (no (unknown) (unknown) Atrial fibrillation (unit s (unknown) date) unknown) (unknown) (no (unknown) (unknown) BUN 57 H (units (unkno wn) date) unknown) (unknown) (no (unknown) (unknown) BUN/Creatinine Ratio (uni ts (unknown) date) 28.5 H unknown) (unknown) (no (unknown) (unknown) Baso # (Auto) 0 (units (unknown) date) unknown) (unknown) (no (unknown) (unknown) Baso % (Auto) 0.4 (units (unknown) date) unknown) (unknown) (no (unknown) (unknown) Blood Pressure (units (unknown) date) 106/44 L 100/47 L unknown) (unknown) (no (unknown) (unknown) Calcium 8.3 L (units ( unknown) date) unknown) (unknown) (no (unknown) (unknown) Carb controlled diet (uni ts (unknown) date) with a.c. HS glucose unknown) checks (unknown) (no (unknown) (unknown) Carbon Dioxide 25 (units (unknown) date) unknown) (unknown) (no (unknown) (unknown) Cooking Casing And Drying Supervisor is (unit s (unknown) date) Tanaj in [place] unknown) has been notified of admission. (unknown) (no (unknown) (unknown) Chloride 99 (units (un known) date) unknown) (unknown) (no (unknown) (unknown) Closely monitor (units (unknown) date) renal function and unknown) hold nephrotoxic medications (Lisinopril).? (unknown) (no (unknown) (unknown) Code status: Full (units (unknown) date) code as discussed unknown) with the patient who identifies his son, (unknown) (no (unknown) (unknown) Consultants: (units (unknown) date) [facility] unknown) Surgery,? care and involvement in the (unknown) (no (unknown) (unknown) Continue carvedilol (unit s (unknown) date) 25 mg p.o. b.i.d., unknown) patient receives in 12.5 mg tablets (unknown) (no (unknown) (unknown) Continue home dose (units (unknown) date) of atorvastatin 40 mg unknown) p.o. at bedtime (unknown) (no (unknown) (unknown) Coronary artery (units (unknown) date) disease unknown) (unknown) (no (unknown) (unknown) Creatinine 2.00 H (units (unknown) date) unknown) (unknown) (no (unknown) (unknown) Critical Care time: (unit s (unknown) date) unknown) (unknown) (no (unknown) (unknown) : 1945 (units (unknown) date) Acct:[id number] unknown) (unknown) (no (unknown) (unknown) Deep Vein (units (unkn own) date) Thrombosis/Pulmonary unknown) Embolism Present on Admission: No (unknown) (no (unknown) (unknown) Diabetes (units (unkno wn) date) unknown) (unknown) (no (unknown) (unknown) Dispo: Unknown at (units (unknown) date) this time.? unknown) (unknown) (no (unknown) (unknown) David his surrogate (units (unknown) date) and POA. unknown) (unknown) (no (unknown) (unknown) Dyslipidemia (units (u nknown) date) unknown) (unknown) (no (unknown) (unknown) Eos # (Auto) 200 (units (unknown) date) unknown) (unknown) (no (unknown) (unknown) Eos % (Auto) 3.6 (units (unknown) date) unknown) (unknown) (no (unknown) (unknown) Estimated GFR 34 L (units (unknown) date) unknown) (unknown) (no (unknown) (unknown) Exam (units (unkno wn) date) unknown) (unknown) (no (unknown) (unknown) FEN: IV fluids: (units (unknown) date) saline lock, diet: unknown) carb controlled diet (unknown) (no (unknown) (unknown) Family History (units (unknown) date) (Reviewed 01/27/22 @ unknown) 07:53 by Tony Aceves MD) (unknown) (no (unknown) (unknown) GFR improved to 34 (units (unknown) date) today.? Creatinine is unknown) 2.00. Renal function is stable and com (unknown) (no (unknown) (unknown) Globulin 3.8 (units (u nknown) date) unknown) (unknown) (no (unknown) (unknown) Glucose 90 (units (unk nown) date) unknown) (unknown) (no (unknown) (unknown) Hct 26.4 L (units (unk nown) date) unknown) (unknown) (no (unknown) (unknown) He is currently (units (unknown) date) saline lock due to unknown) volume overload (unknown) (no (unknown) (unknown) He will receive his (unit s (unknown) date) home dose of Lantus unknown) 30 units b.i.d. Metformin remains on (unknown) (no (unknown) (unknown) Hgb 8.7 L (units (unkn own) date) unknown) (unknown) (no (unknown) (unknown) Hx of (units (unkno wn) date) cholecystectomy unknown) (unknown) (no (unknown) (unknown) Hypertension (units (u nknown) date) unknown) (unknown) (no (unknown) (unknown) I spent a total of (units (unknown) date) [] minutes of unknown) critical care time on this patient's care (unknown) (no (unknown) (unknown) In the ER, he (units ( unknown) date) received IV Lasix 80 unknown) mg in addition to his home oral dose of (unknown) (no (unknown) (unknown) Initially vancomycin (uni ts (unknown) date) that was largely unknown) prophylactic since no persistent signs of (unknown) (no (unknown) (unknown) Labs (units (unkno wn) date) unknown) (unknown) (no (unknown) (unknown) Labs: (units (unkno wn) date) unknown) (unknown) (no (unknown) (unknown) Low-dose (units (unkno wn) date) correctional scale unknown) insulin and adjust as needed (unknown) (no (unknown) (unknown) Lymph # (Auto) 900 L (uni ts (unknown) date) unknown) (unknown) (no (unknown) (unknown) Lymph % (Auto) 17.9 (unit s (unknown) date) L unknown) (unknown) (no (unknown) (unknown) MCH 25.8 L (units (unk nown) date) unknown) (unknown) (no (unknown) (unknown) MCHC 32.8 (units (unkn own) date) unknown) (unknown) (no (unknown) (unknown) MCV 78.5 L (units (unk nown) date) unknown) (unknown) (no (unknown) (unknown) Medical History (units (unknown) date) (Reviewed 01/27/22 @ unknown) 07:53 by Tony Aceves MD) (unknown) (no (unknown) (unknown) Lajas # (Auto) 500 (units (unknown) date) unknown) (unknown) (no (unknown) (unknown) Lajas % (Auto) 10.1 (units (unknown) date) unknown) (unknown) (no (unknown) (unknown) Neut # (Auto) 3400 (units (unknown) date) unknown) (unknown) (no (unknown) (unknown) Neut % (Auto) 68.0 (units (unknown) date) unknown) (unknown) (no (unknown) (unknown) Objective (units (unkn own) date) unknown) (unknown) (no (unknown) (unknown) Orthopedic surgery (units (unknown) date) has been consulted unknown) and seen the patient. (unknown) (no (unknown) (unknown) Other Adopted (units ( unknown) date) unknown) (unknown) (no (unknown) (unknown) Oxygen Delivery (units (unknown) date) Method Room Air unknown) (unknown) (no (unknown) (unknown) Oxygen Flow Rate 0 (units (unknown) date) unknown) (unknown) (no (unknown) (unknown) Oxygen Flow Rate 0 0 (uni ts (unknown) date) unknown) (unknown) (no (unknown) (unknown) PFSH (units (unkno wn) date) unknown) (unknown) (no (unknown) (unknown) Patient is currently (uni ts (unknown) date) recovering from unknown) biventricular heart catheterization (unknown) (no (unknown) (unknown) Patient is? (units (un known) date) inpatient service due unknown) to the severity of disease, risks of further (unknown) (no (unknown) (unknown) Patient received 2 (units (unknown) date) units PRBC in the unknown) emergency department increasing his H+H (unknown) (no (unknown) (unknown) Patient to follow-up (uni ts (unknown) date) with wound care unknown) specialist as an outpatient.? Appears to (unknown) (no (unknown) (unknown) Patient was fluid (units (unknown) date) resuscitated in the unknown) emergency department 2 L (unknown) (no (unknown) (unknown) Patient's proBNP was (uni ts (unknown) date) almost 7200.? unknown) Improved yesterday at 5570. (unknown) (no (unknown) (unknown) Patient's (units (unkn own) date) rivaroxaban, aspirin unknown) and clopidogrel are being held.? No evidence of (unknown) (no (unknown) (unknown) Patient: (units (unkno wn) date) Osmel Baxter MR#: unknown) M000 (unknown) (no (unknown) (unknown) Plt Count 181 (units ( unknown) date) unknown) (unknown) (no (unknown) (unknown) Potassium 3.7 (units ( unknown) date) unknown) (unknown) (no (unknown) (unknown) Provider: (units (unkn own) date) Chary Ramirez MD unknown) (unknown) (no (unknown) (unknown) Pulse Oximetry 98 97 (uni ts (unknown) date) unknown) (unknown) (no (unknown) (unknown) Pulse Rate 63 69 65 (unit s (unknown) date) unknown) (unknown) (no (unknown) (unknown) Quality (units (unkno wn) date) unknown) (unknown) (no (unknown) (unknown) RBC 3.37 L (units (unk nown) date) unknown) (unknown) (no (unknown) (unknown) RBC Morphology See (units (unknown) date) below unknown) (unknown) (no (unknown) (unknown) RDW 23.7 H (units (unk nown) date) unknown) (unknown) (no (unknown) (unknown) Respiratory Rate 14 (unit s (unknown) date) 18 unknown) (unknown) (no (unknown) (unknown) Result Diagrams: (units (unknown) date) 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) (unknown) (no (unknown) (unknown) Signed By: (units (unk nown) date) unknown) (unknown) (no (unknown) (unknown) Sleep apnea (units (un known) date) unknown) (unknown) (no (unknown) (unknown) Smoking Status: (units (unknown) date) Former smoker unknown) (unknown) (no (unknown) (unknown) Social History (units (unknown) date) (Updated 09/25/18 @ unknown) 11:17 by Telma Dickey DO) (unknown) (no (unknown) (unknown) Sodium 132 L (units (u nknown) date) unknown) (unknown) (no (unknown) (unknown) Surgical History (units (unknown) date) (Reviewed 01/27/22 @ unknown) 07:53 by Tony Aceves MD) (unknown) (no (unknown) (unknown) Temperature 97.2 F L (uni ts (unknown) date) 97.1 F L unknown) (unknown) (no (unknown) (unknown) Time Spent With (units (unknown) date) Patient unknown) (unknown) (no (unknown) (unknown) Total Bilirubin 1.1 (unit s (unknown) date) unknown) (unknown) (no (unknown) (unknown) Total Protein 7.0 (units (unknown) date) unknown) (unknown) (no (unknown) (unknown) VTE (units (unkno wn) date) unknown) (unknown) (no (unknown) (unknown) VTE Prophylaxis: (units (unknown) date) Wells risk score unknown) 1.5.? Pharmacological VTE prophylaxis is (unknown) (no (unknown) (unknown) Vancomycin Trough (units (unknown) date) 9.4 L unknown) (unknown) (no (unknown) (unknown) Vital Signs (units (un known) date) unknown) (unknown) (no (unknown) (unknown) WBC 5.0 (units (unkno wn) date) unknown) (unknown) (no (unknown) (unknown) Wound care consulted (uni ts (unknown) date) due to compromised unknown) skin at site of hematoma left leg.? Has (unknown) (no (unknown) (unknown) [Embedded Image Not (unit s (unknown) date) Available] unknown) (unknown) (no (unknown) (unknown) admission (units (unkn own) date) unknown) (unknown) (no (unknown) (unknown) appears to be triple (uni ts (unknown) date) anti-platelet unknown) therapy, present on admission.? Causing (unknown) (no (unknown) (unknown) consult completed. (units (unknown) date) unknown) (unknown) (no (unknown) (unknown) contraindicated in (units (unknown) date) the setting of active unknown) bleeding will do SCD? (unknown) (no (unknown) (unknown) daily.? (units (unkno wn) date) Hydrochlorothiazide unknown) is not been ordered.? Torsemide has been added and (unknown) (no (unknown) (unknown) days. (units (unkno wn) date) unknown) (unknown) (no (unknown) (unknown) details: x 9 (uni ts (unknown) date) months unknown) (unknown) (no (unknown) (unknown) disease progression (unit s (unknown) date) and this stay is unknown) expected to exceed 2 midnights. (unknown) (no (unknown) (unknown) equivalent of the (units (unknown) date) dose of the torsemide unknown) plus furosemide. (unknown) (no (unknown) (unknown) evaluate.? Consult (units (unknown) date) completed by wound unknown) care nurse.? Continue current treatment.? (unknown) (no (unknown) (unknown) follow-up with wound (uni ts (unknown) date) critical care clinical nurse specialist after unknown) discharge. (unknown) (no (unknown) (unknown) from 6.7-7.9 and (units (unknown) date) 20.8-24.5 unknown) respectively.? Today hemoglobin stable at 8.1.? This (unknown) (no (unknown) (unknown) further bleeding.? (units (unknown) date) Hemoglobin stable.? unknown) Restart aspirin and rivaroxaban tomorrow. (unknown) (no (unknown) (unknown) have no infection (units (unknown) date) and is proceeding unknown) with healing. (unknown) (no (unknown) (unknown) hematoma left leg.? (unit s (unknown) date) With skin compromise unknown) over the hematoma will have wound care (unknown) (no (unknown) (unknown) hold due to renal (units (unknown) date) function. unknown) (unknown) (no (unknown) (unknown) household members: (units (unknown) date) children unknown) (unknown) (no (unknown) (unknown) hydrochlorothiazide (unit s (unknown) date) and torsemide.? Will unknown) increase daily furosemide to 40 mg (unknown) (no (unknown) (unknown) infection.? This has (uni ts (unknown) date) been discontinued. unknown) (unknown) (no (unknown) (unknown) is dated furosemide (unit s (unknown) date) was discontinued and unknown) the torsemide dose increased to be (unknown) (no (unknown) (unknown) is stable.? (units (un known) date) Rivaroxaban and unknown) aspirin has been re-initiated. (unknown) (no (unknown) (unknown) marital status: (units (unknown) date) unknown) (unknown) (no (unknown) (unknown) not been evaluated (units (unknown) date) yet.? Wound care unknown) nurse has seen the patient.? Recommends (unknown) (no (unknown) (unknown) patient?s care is (units (unknown) date) appreciated.? This unknown) has been completed.? Wound care nurse (unknown) (no (unknown) (unknown) promised. (units (unkn own) date) unknown) (unknown) (no (unknown) (unknown) today; this time is (unit s (unknown) date) exclusive of unknown) procedural time. (unknown) (no (unknown) (unknown) treatment.? (units (un known) date) unknown) Result panel 95 (unknown) (no (unknown) (unknown) (no value) (units (unk nown) date) unknown) (unknown) (no (unknown) (unknown) Date of Service: (units (unknown) date) 01/27/22 unknown) (unknown) (no (unknown) (unknown) (no value) (units (unk nown) date) unknown) (unknown) (no (unknown) (unknown) - (units (unkno wn) date) unknown) (unknown) (no (unknown) (unknown) 01/31/22 05:12 (units (unknown) date) unknown) (unknown) (no (unknown) (unknown) [facility] [address] (uni ts (unknown) date) [address] unknown) [place] [address] (unknown) (no (unknown) (unknown) Laboratory Results - (uni ts (unknown) date) last 24 hr unknown) (unknown) (no (unknown) (unknown) Progress Note (units ( unknown) date) unknown) (unknown) (no (unknown) (unknown) (no value) (units (unk nown) date) unknown) (unknown) (no (unknown) (unknown) 01/30/22 01/31/22 (units (unknown) date) 01/31/22 unknown) (unknown) (no (unknown) (unknown) 20:10 05:12 05:12 (units (unknown) date) unknown) (unknown) (no (unknown) (unknown) 01/31/22 (units (unkno wn) date) unknown) (unknown) (no (unknown) (unknown) be on new mg b.i.d. (unit s (unknown) date) of torsemide. unknown) Torsemide was chosen due to the mortality (unknown) (no (unknown) (unknown) (past 8 hours): (units (unknown) date) unknown) (unknown) (no (unknown) (unknown) 05:30 01/31/22 (units (unknown) date) unknown) (unknown) (no (unknown) (unknown) 07:45 (units (unkno wn) date) unknown) (unknown) (no (unknown) (unknown) 08:48 01/31/22 (units (unknown) date) unknown) (unknown) (no (unknown) (unknown) 1. Acute blood loss (unit s (unknown) date) anemia likely unknown) secondary to over coagulation with what (unknown) (no (unknown) (unknown) 2. Acute kidney (units (unknown) date) injury likely unknown) secondary to blood loss anemia, present on (unknown) (no (unknown) (unknown) 3. Acute (units (unkno wn) date) decompensated heart unknown) failure with reduced ejection fraction, present on (unknown) (no (unknown) (unknown) [id number] (units (unkno wn) date) unknown) (unknown) (no (unknown) (unknown) 4. Probable left (units (unknown) date) knee cellulitis, unknown) acute, present on admission (unknown) (no (unknown) (unknown) 5. Coronary artery (units (unknown) date) disease, chronic unknown) (unknown) (no (unknown) (unknown) 6. Diabetes type 2, (unit s (unknown) date) appears to be well unknown) controlled (unknown) (no (unknown) (unknown) 7. Mobilization.? (units (unknown) date) Beginning to mobilize unknown) with physical therapy.? Continue with (unknown) (no (unknown) (unknown) 8. 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 Diflucan 400 mg daily for 14 (unknown) (no (unknown) (unknown) ?A1c is 6.5 (units (un known) date) unknown) (unknown) (no (unknown) (unknown) ALT 21 (units (unkno wn) date) unknown) (unknown) (no (unknown) (unknown) AST 36 (units (unkno wn) date) unknown) (unknown) (no (unknown) (unknown) Age/Sex: 76 / M (units (unknown) date) unknown) (unknown) (no (unknown) (unknown) Albumin 3.2 L (units ( unknown) date) unknown) (unknown) (no (unknown) (unknown) Albumin/Globulin (units (unknown) date) Ratio 0.8 L unknown) (unknown) (no (unknown) (unknown) Alkaline Phosphatase (uni ts (unknown) date) 99 unknown) (unknown) (no (unknown) (unknown) Anisocytosis 3+ H (units (unknown) date) unknown) (unknown) (no (unknown) (unknown) Anticoagulated (units (unknown) date) unknown) (unknown) (no (unknown) (unknown) Assessment + Plan (units (unknown) date) unknown) (unknown) (no (unknown) (unknown) Assessment + Plan (units (unknown) date) narrative: unknown) (unknown) (no (unknown) (unknown) Atrial fibrillation (unit s (unknown) date) unknown) (unknown) (no (unknown) (unknown) BUN 57 H (units (unkno wn) date) unknown) (unknown) (no (unknown) (unknown) BUN/Creatinine Ratio (uni ts (unknown) date) 28.5 H unknown) (unknown) (no (unknown) (unknown) Baso # (Auto) 0 (units (unknown) date) unknown) (unknown) (no (unknown) (unknown) Baso % (Auto) 0.4 (units (unknown) date) unknown) (unknown) (no (unknown) (unknown) Blood Pressure (units (unknown) date) 106/44 L 100/47 L unknown) (unknown) (no (unknown) (unknown) Calcium 8.3 L (units ( unknown) date) unknown) (unknown) (no (unknown) (unknown) Carb controlled diet (uni ts (unknown) date) with a.c. 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 (unknown) (no (unknown) (unknown) Chloride 99 (units (un known) date) unknown) (unknown) (no (unknown) (unknown) Closely monitor (units (unknown) date) renal function and unknown) hold nephrotoxic medications (Lisinopril).? (unknown) (no (unknown) (unknown) Code status: Full (units (unknown) date) code as discussed unknown) with the patient who identifies his son, (unknown) (no (unknown) (unknown) Consultants: (units (unknown) date) [facility] unknown) Surgery,? care and involvement in the (unknown) (no (unknown) (unknown) Continue carvedilol (unit s (unknown) date) 25 mg p.o. b.i.d., unknown) patient receives in 12.5 mg tablets (unknown) (no (unknown) (unknown) Continue home dose (units (unknown) date) of atorvastatin 40 mg unknown) p.o. at bedtime (unknown) (no (unknown) (unknown) Coronary artery (units (unknown) date) disease unknown) (unknown) (no (unknown) (unknown) Creatinine 2.00 H (units (unknown) date) unknown) (unknown) (no (unknown) (unknown) Critical Care time: (unit s (unknown) date) unknown) (unknown) (no (unknown) (unknown) : 1945 (units (unknown) date) Acct:[id number] unknown) (unknown) (no (unknown) (unknown) Deep Vein (units (unkn own) date) Thrombosis/Pulmonary unknown) Embolism Present on Admission: No (unknown) (no (unknown) (unknown) Diabetes (units (unkno wn) date) unknown) (unknown) (no (unknown) (unknown) Dispo: Unknown at (units (unknown) date) this time.? unknown) (unknown) (no (unknown) (unknown) David his surrogate (units (unknown) date) and POA. unknown) (unknown) (no (unknown) (unknown) Dyslipidemia (units (u nknown) date) unknown) (unknown) (no (unknown) (unknown) Eos # (Auto) 200 (units (unknown) date) unknown) (unknown) (no (unknown) (unknown) Eos % (Auto) 3.6 (units (unknown) date) unknown) (unknown) (no (unknown) (unknown) Estimated GFR 34 L (units (unknown) date) unknown) (unknown) (no (unknown) (unknown) Exam (units (unkno wn) date) unknown) (unknown) (no (unknown) (unknown) FEN: IV fluids: (units (unknown) date) saline lock, diet: unknown) carb controlled diet (unknown) (no (unknown) (unknown) Family History (units (unknown) date) (Reviewed 01/27/22 @ unknown) 07:53 by Tony Aceves MD) (unknown) (no (unknown) (unknown) GFR improved to 34 (units (unknown) date) today.? Creatinine is unknown) 2.00. Renal function is stable and com (unknown) (no (unknown) (unknown) Globulin 3.8 (units (u nknown) date) unknown) (unknown) (no (unknown) (unknown) Glucose 90 (units (unk nown) date) unknown) (unknown) (no (unknown) (unknown) Hct 26.4 L (units (unk nown) date) unknown) (unknown) (no (unknown) (unknown) He is currently (units (unknown) date) saline lock due to unknown) volume overload (unknown) (no (unknown) (unknown) He will receive his (unit s (unknown) date) home dose of Lantus unknown) 30 units b.i.d. Metformin remains on (unknown) (no (unknown) (unknown) Hgb 8.7 L (units (unkn own) date) unknown) (unknown) (no (unknown) (unknown) Hx of (units (unkno wn) date) cholecystectomy unknown) (unknown) (no (unknown) (unknown) Hypertension (units (u nknown) date) unknown) (unknown) (no (unknown) (unknown) I spent a total of (units (unknown) date) [] minutes of unknown) critical care time on this patient's care (unknown) (no (unknown) (unknown) In the ER, he (units ( unknown) date) received IV Lasix 80 unknown) mg in addition to his home oral dose of (unknown) (no (unknown) (unknown) Initially vancomycin (uni ts (unknown) date) that was largely unknown) prophylactic since no persistent signs of (unknown) (no (unknown) (unknown) Labs (units (unkno wn) date) unknown) (unknown) (no (unknown) (unknown) Labs: (units (unkno wn) date) unknown) (unknown) (no (unknown) (unknown) Low-dose (units (unkno wn) date) correctional scale unknown) insulin and adjust as needed (unknown) (no (unknown) (unknown) Lymph # (Auto) 900 L (uni ts (unknown) date) unknown) (unknown) (no (unknown) (unknown) Lymph % (Auto) 17.9 (unit s (unknown) date) L unknown) (unknown) (no (unknown) (unknown) MCH 25.8 L (units (unk nown) date) unknown) (unknown) (no (unknown) (unknown) MCHC 32.8 (units (unk nown) date) unknown) (unknown) (no (unknown) (unknown) MCV 78.5 L (units (unk nown) date) unknown) (unknown) (no (unknown) (unknown) Medical History (units (unknown) date) (Reviewed 01/27/22 @ unknown) 07:53 by Tony Aceves MD) (unknown) (no (unknown) (unknown) Lajas # (Auto) 500 (units (unknown) date) unknown) (unknown) (no (unknown) (unknown) Lajas % (Auto) 10.1 (units (unknown) date) unknown) (unknown) (no (unknown) (unknown) Neut # (Auto) 3400 (units (unknown) date) unknown) (unknown) (no (unknown) (unknown) Neut % (Auto) 68.0 (units (unknown) date) unknown) (unknown) (no (unknown) (unknown) Objective (units (unkn own) date) unknown) (unknown) (no (unknown) (unknown) Orthopedic surgery (units (unknown) date) has been consulted unknown) and seen the patient. (unknown) (no (unknown) (unknown) Other Adopted (units ( unknown) date) unknown) (unknown) (no (unknown) (unknown) Oxygen Delivery (units (unknown) date) Method Room Air unknown) (unknown) (no (unknown) (unknown) Oxygen Flow Rate 0 (units (unknown) date) unknown) (unknown) (no (unknown) (unknown) Oxygen Flow Rate 0 0 (uni ts (unknown) date) unknown) (unknown) (no (unknown) (unknown) PFSH (units (unkno wn) date) unknown) (unknown) (no (unknown) (unknown) Patient is currently (uni ts (unknown) date) recovering from unknown) biventricular heart catheterization (unknown) (no (unknown) (unknown) Patient is? (units (un known) date) inpatient service due unknown) to the severity of disease, risks of further (unknown) (no (unknown) (unknown) Patient received 2 (units (unknown) date) units PRBC in the unknown) emergency department increasing his H+H (unknown) (no (unknown) (unknown) Patient to follow-up (uni ts (unknown) date) with wound care unknown) specialist as an outpatient.? Appears to (unknown) (no (unknown) (unknown) Patient was fluid (units (unknown) date) resuscitated in the unknown) emergency department 2 L (unknown) (no (unknown) (unknown) Patient's proBNP was (uni ts (unknown) date) almost 7200.? unknown) Improved yesterday at 5570. (unknown) (no (unknown) (unknown) Patient's (units (unkn own) date) rivaroxaban, aspirin unknown) and clopidogrel are being held.? No evidence of (unknown) (no (unknown) (unknown) Patient: (units (unkno wn) date) Osmel Baxter MR#: unknown) M000 (unknown) (no (unknown) (unknown) Plt Count 181 (units ( unknown) date) unknown) (unknown) (no (unknown) (unknown) Potassium 3.7 (units ( unknown) date) unknown) (unknown) (no (unknown) (unknown) Provider: (units (unkn own) date) Chary Ramirez MD unknown) (unknown) (no (unknown) (unknown) Pulse Oximetry 98 97 (uni ts (unknown) date) unknown) (unknown) (no (unknown) (unknown) Pulse Rate 63 69 65 (unit s (unknown) date) unknown) (unknown) (no (unknown) (unknown) Quality (units (unkno wn) date) unknown) (unknown) (no (unknown) (unknown) RBC 3.37 L (units (unk nown) date) unknown) (unknown) (no (unknown) (unknown) RBC Morphology See (units (unknown) date) below unknown) (unknown) (no (unknown) (unknown) RDW 23.7 H (units (unk nown) date) unknown) (unknown) (no (unknown) (unknown) Respiratory Rate 14 (unit s (unknown) date) 18 unknown) (unknown) (no (unknown) (unknown) Result Diagrams: (units (unknown) date) 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) (unknown) (no (unknown) (unknown) Signed By: (units (unk nown) date) unknown) (unknown) (no (unknown) (unknown) Sleep apnea (units (un known) date) unknown) (unknown) (no (unknown) (unknown) Smoking Status: (units (unknown) date) Former smoker unknown) (unknown) (no (unknown) (unknown) Social History (units (unknown) date) (Updated 09/25/18 @ unknown) 11:17 by Telma Dickey DO) (unknown) (no (unknown) (unknown) Sodium 132 L (units (u nknown) date) unknown) (unknown) (no (unknown) (unknown) Surgical History (units (unknown) date) (Reviewed 01/27/22 @ unknown) 07:53 by Tony Aceves MD) (unknown) (no (unknown) (unknown) Temperature 97.2 F L (uni ts (unknown) date) 97.1 F L unknown) (unknown) (no (unknown) (unknown) Time Spent With (units (unknown) date) Patient unknown) (unknown) (no (unknown) (unknown) Total Bilirubin 1.1 (unit s (unknown) date) unknown) (unknown) (no (unknown) (unknown) Total Protein 7.0 (units (unknown) date) unknown) (unknown) (no (unknown) (unknown) VTE (units (unkno wn) date) unknown) (unknown) (no (unknown) (unknown) VTE Prophylaxis: (units (unknown) date) Wells risk score unknown) 1.5.? Pharmacological VTE prophylaxis is (unknown) (no (unknown) (unknown) Vancomycin Trough (units (unknown) date) 9.4 L unknown) (unknown) (no (unknown) (unknown) Vital Signs (units (un known) date) unknown) (unknown) (no (unknown) (unknown) WBC 5.0 (units (unkno wn) date) unknown) (unknown) (no (unknown) (unknown) Wound care consulted (uni ts (unknown) date) due to compromised unknown) skin at site of hematoma left leg.? Has (unknown) (no (unknown) (unknown) [Embedded Image Not (unit s (unknown) date) Available] unknown) (unknown) (no (unknown) (unknown) admission (units (unkn own) date) unknown) (unknown) (no (unknown) (unknown) appears to be triple (uni ts (unknown) date) anti-platelet unknown) therapy, present on admission.? Causing (unknown) (no (unknown) (unknown) benefits in this (units (unknown) date) patient. unknown) (unknown) (no (unknown) (unknown) consult completed. (units (unknown) date) unknown) (unknown) (no (unknown) (unknown) contraindicated in (units (unknown) date) the setting of active unknown) bleeding will do SCD? (unknown) (no (unknown) (unknown) daily.? (units (unkno wn) date) Hydrochlorothiazide unknown) is not been ordered.? Torsemide has been added and (unknown) (no (unknown) (unknown) days. (units (unkno wn) date) unknown) (unknown) (no (unknown) (unknown) details: x 9 (uni ts (unknown) date) months unknown) (unknown) (no (unknown) (unknown) disease progression (unit s (unknown) date) and this stay is unknown) expected to exceed 2 midnights. (unknown) (no (unknown) (unknown) equivalent of the (units (unknown) date) dose of the torsemide unknown) plus furosemide. Therefore patient will (unknown) (no (unknown) (unknown) evaluate.? Consult (units (unknown) date) completed by wound unknown) care nurse.? Continue current treatment.? (unknown) (no (unknown) (unknown) follow-up with wound (uni ts (unknown) date) critical care clinical nurse specialist after unknown) discharge. (unknown) (no (unknown) (unknown) from 6.7-7.9 and (units (unknown) date) 20.8-24.5 unknown) respectively.? Today hemoglobin stable at 8.1.? This (unknown) (no (unknown) (unknown) further bleeding.? (units (unknown) date) Hemoglobin stable.? unknown) Restart aspirin and rivaroxaban tomorrow. (unknown) (no (unknown) (unknown) have no infection (units (unknown) date) and is proceeding unknown) with healing. (unknown) (no (unknown) (unknown) hematoma left leg.? (unit s (unknown) date) With skin compromise unknown) over the hematoma will have wound care (unknown) (no (unknown) (unknown) hold due to renal (units (unknown) date) function. unknown) (unknown) (no (unknown) (unknown) household members: (units (unknown) date) children unknown) (unknown) (no (unknown) (unknown) hydrochlorothiazide (unit s (unknown) date) and torsemide.? Will unknown) increase daily furosemide to 40 mg (unknown) (no (unknown) (unknown) infection.? This has (uni ts (unknown) date) been discontinued. unknown) (unknown) (no (unknown) (unknown) is dated furosemide (unit s (unknown) date) was discontinued and unknown) the torsemide dose increased to be (unknown) (no (unknown) (unknown) is stable.? (units (un known) date) Rivaroxaban and unknown) aspirin has been re-initiated. (unknown) (no (unknown) (unknown) marital status: (units (unknown) date) unknown) (unknown) (no (unknown) (unknown) not been evaluated (units (unknown) date) yet.? Wound care unknown) nurse has seen the patient.? Recommends (unknown) (no (unknown) (unknown) patient?s care is (units (unknown) date) appreciated.? This unknown) has been completed.? Wound care nurse (unknown) (no (unknown) (unknown) promised. (units (unkn own) date) unknown) (unknown) (no (unknown) (unknown) today; this time is (unit s (unknown) date) exclusive of unknown) procedural time. (unknown) (no (unknown) (unknown) treatment.? (units (un known) date) unknown) Result panel 96 (unknown) (no (unknown) (unknown) (no value) (units (unk nown) date) unknown) (unknown) (no (unknown) (unknown) Date of Service: (units (unknown) date) 01/27/22 unknown) (unknown) (no (unknown) (unknown) (no value) (units (unk nown) date) unknown) (unknown) (no (unknown) (unknown) - (units (unkno wn) date) unknown) (unknown) (no (unknown) (unknown) 01/31/22 05:12 (units (unknown) date) unknown) (unknown) (no (unknown) (unknown) [facility] [address] (uni ts (unknown) date) [address] unknown) [place] [address] (unknown) (no (unknown) (unknown) Laboratory Results - (uni ts (unknown) date) last 24 hr unknown) (unknown) (no (unknown) (unknown) Progress Note (units ( unknown) date) unknown) (unknown) (no (unknown) (unknown) (no value) (units (unk nown) date) unknown) (unknown) (no (unknown) (unknown) 01/30/22 01/31/22 (units (unknown) date) 01/31/22 unknown) (unknown) (no (unknown) (unknown) 20:10 05:12 05:12 (units (unknown) date) unknown) (unknown) (no (unknown) (unknown) 01/31/22 (units (unkno wn) date) unknown) (unknown) (no (unknown) (unknown) be on new mg b.i.d. (unit s (unknown) date) of torsemide. unknown) Torsemide was chosen due to the mortality (unknown) (no (unknown) (unknown) (past 8 hours): (units (unknown) date) unknown) (unknown) (no (unknown) (unknown) 05:30 01/31/22 (units (unknown) date) unknown) (unknown) (no (unknown) (unknown) 07:45 (units (unkno wn) date) unknown) (unknown) (no (unknown) (unknown) 08:48 01/31/22 (units (unknown) date) unknown) (unknown) (no (unknown) (unknown) 1. Acute blood loss (unit s (unknown) date) anemia likely unknown) secondary to over coagulation with what (unknown) (no (unknown) (unknown) 2. Acute kidney (units (unknown) date) injury likely unknown) secondary to blood loss anemia, present on (unknown) (no (unknown) (unknown) 3. Acute (units (unkno wn) date) decompensated heart unknown) failure with reduced ejection fraction, present on (unknown) (no (unknown) (unknown) [id number] (units (unkno wn) date) unknown) (unknown) (no (unknown) (unknown) 4. Probable left (units (unknown) date) knee cellulitis, unknown) acute, present on admission (unknown) (no (unknown) (unknown) 5. Coronary artery (units (unknown) date) disease, chronic unknown) (unknown) (no (unknown) (unknown) 6. Diabetes type 2, (unit s (unknown) date) appears to be well unknown) controlled (unknown) (no (unknown) (unknown) 7. Mobilization.? (units (unknown) date) Beginning to mobilize unknown) with physical therapy.? Continue with (unknown) (no (unknown) (unknown) 8. Urinary tract (units (unknown) date) infection with unknown) Renetta glabrata.?With discussion with pharmacy (unknown) (no (unknown) (unknown) ?A1c is 6.5 (units (un known) date) unknown) (unknown) (no (unknown) (unknown) ALT 21 (units (unkno wn) date) unknown) (unknown) (no (unknown) (unknown) AST 36 (units (unkno wn) date) unknown) (unknown) (no (unknown) (unknown) Age/Sex: 76 / M (units (unknown) date) unknown) (unknown) (no (unknown) (unknown) Albumin 3.2 L (units ( unknown) date) unknown) (unknown) (no (unknown) (unknown) Albumin/Globulin (units (unknown) date) Ratio 0.8 L unknown) (unknown) (no (unknown) (unknown) Alkaline Phosphatase (uni ts (unknown) date) 99 unknown) (unknown) (no (unknown) (unknown) Anisocytosis 3+ H (units (unknown) date) unknown) (unknown) (no (unknown) (unknown) Anticoagulated (units (unknown) date) unknown) (unknown) (no (unknown) (unknown) Assessment + Plan (units (unknown) date) unknown) (unknown) (no (unknown) (unknown) Assessment + Plan (units (unknown) date) narrative: unknown) (unknown) (no (unknown) (unknown) Atrial fibrillation (unit s (unknown) date) unknown) (unknown) (no (unknown) (unknown) BUN 57 H (units (unkno wn) date) unknown) (unknown) (no (unknown) (unknown) BUN/Creatinine Ratio (uni ts (unknown) date) 28.5 H unknown) (unknown) (no (unknown) (unknown) Baso # (Auto) 0 (units (unknown) date) unknown) (unknown) (no (unknown) (unknown) Baso % (Auto) 0.4 (units (unknown) date) unknown) (unknown) (no (unknown) (unknown) Blood Pressure (units (unknown) date) 106/44 L 100/47 L unknown) (unknown) (no (unknown) (unknown) Calcium 8.3 L (units ( unknown) date) unknown) (unknown) (no (unknown) (unknown) Carb controlled diet (uni ts (unknown) date) with a.c. 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 (unknown) (no (unknown) (unknown) Chloride 99 (units (un known) date) unknown) (unknown) (no (unknown) (unknown) Closely monitor (units (unknown) date) renal function and unknown) hold nephrotoxic medications (Lisinopril).? (unknown) (no (unknown) (unknown) Code status: Full (units (unknown) date) code as discussed unknown) with the patient who identifies his son, (unknown) (no (unknown) (unknown) Consultants: (units (unknown) date) [facility] unknown) Surgery,? care and involvement in the (unknown) (no (unknown) (unknown) Continue carvedilol (unit s (unknown) date) 25 mg p.o. b.i.d., unknown) patient receives in 12.5 mg tablets (unknown) (no (unknown) (unknown) Continue home dose (units (unknown) date) of atorvastatin 40 mg unknown) p.o. at bedtime (unknown) (no (unknown) (unknown) Coronary artery (units (unknown) date) disease unknown) (unknown) (no (unknown) (unknown) Creatinine 2.00 H (units (unknown) date) unknown) (unknown) (no (unknown) (unknown) Critical Care time: (unit s (unknown) date) unknown) (unknown) (no (unknown) (unknown) : 1945 (units (unknown) date) Acct:[id number] unknown) (unknown) (no (unknown) (unknown) Deep Vein (units (unkn own) date) Thrombosis/Pulmonary unknown) Embolism Present on Admission: No (unknown) (no (unknown) (unknown) Diabetes (units (unkno wn) date) unknown) (unknown) (no (unknown) (unknown) Dispo: Unknown at (units (unknown) date) this time.? unknown) (unknown) (no (unknown) (unknown) David his surrogate (units (unknown) date) and POA. unknown) (unknown) (no (unknown) (unknown) Dyslipidemia (units (u nknown) date) unknown) (unknown) (no (unknown) (unknown) Eos # (Auto) 200 (units (unknown) date) unknown) (unknown) (no (unknown) (unknown) Eos % (Auto) 3.6 (units (unknown) date) unknown) (unknown) (no (unknown) (unknown) Estimated GFR 34 L (units (unknown) date) unknown) (unknown) (no (unknown) (unknown) Exam (units (unkno wn) date) unknown) (unknown) (no (unknown) (unknown) FEN: IV fluids: (units (unknown) date) saline lock, diet: unknown) carb controlled diet (unknown) (no (unknown) (unknown) Family History (units (unknown) date) (Reviewed 01/27/22 @ unknown) 07:53 by Tony Aceves MD) (unknown) (no (unknown) (unknown) GFR improved to 34 (units (unknown) date) today.? Creatinine is unknown) 2.00. Renal function is stable and com (unknown) (no (unknown) (unknown) Globulin 3.8 (units (u nknown) date) unknown) (unknown) (no (unknown) (unknown) Glucose 90 (units (unk nown) date) unknown) (unknown) (no (unknown) (unknown) Hct 26.4 L (units (un known) date) unknown) (unknown) (no (unknown) (unknown) He is currently (units (unknown) date) saline lock due to unknown) volume overload (unknown) (no (unknown) (unknown) He will receive his (unit s (unknown) date) home dose of Lantus unknown) 30 units b.i.d. Metformin remains on (unknown) (no (unknown) (unknown) Hgb 8.7 L (units (unkn own) date) unknown) (unknown) (no (unknown) (unknown) Hx of (units (unkno wn) date) cholecystectomy unknown) (unknown) (no (unknown) (unknown) Hypertension (units (u nknown) date) unknown) (unknown) (no (unknown) (unknown) I spent a total of (units (unknown) date) [] minutes of unknown) critical care time on this patient's care (unknown) (no (unknown) (unknown) In the ER, he (units ( unknown) date) received IV Lasix 80 unknown) mg in addition to his home oral dose of (unknown) (no (unknown) (unknown) Initially vancomycin (uni ts (unknown) date) that was largely unknown) prophylactic since no persistent signs of (unknown) (no (unknown) (unknown) Labs (units (unkno wn) date) unknown) (unknown) (no (unknown) (unknown) Labs: (units (unkno wn) date) unknown) (unknown) (no (unknown) (unknown) Low-dose (units (unkno wn) date) correctional scale unknown) insulin and adjust as needed (unknown) (no (unknown) (unknown) Lymph # (Auto) 900 L (uni ts (unknown) date) unknown) (unknown) (no (unknown) (unknown) Lymph % (Auto) 17.9 (unit s (unknown) date) L unknown) (unknown) (no (unknown) (unknown) MCH 25.8 L (units (unk nown) date) unknown) (unknown) (no (unknown) (unknown) MCHC 32.8 (units (unkn own) date) unknown) (unknown) (no (unknown) (unknown) MCV 78.5 L (units (unk nown) date) unknown) (unknown) (no (unknown) (unknown) Medical History (units (unknown) date) (Reviewed 01/27/22 @ unknown) 07:53 by Tony Aceves MD) (unknown) (no (unknown) (unknown) Lajas # (Auto) 500 (units (unknown) date) unknown) (unknown) (no (unknown) (unknown) Lajas % (Auto) 10.1 (units (unknown) date) unknown) (unknown) (no (unknown) (unknown) Neut # (Auto) 3400 (units (unknown) date) unknown) (unknown) (no (unknown) (unknown) Neut % (Auto) 68.0 (units (unknown) date) unknown) (unknown) (no (unknown) (unknown) Objective (units (unkn own) date) unknown) (unknown) (no (unknown) (unknown) Orthopedic surgery (units (unknown) date) has been consulted unknown) and seen the patient. (unknown) (no (unknown) (unknown) Other Adopted (units ( unknown) date) unknown) (unknown) (no (unknown) (unknown) Oxygen Delivery (units (unknown) date) Method Room Air unknown) (unknown) (no (unknown) (unknown) Oxygen Flow Rate 0 (units (unknown) date) unknown) (unknown) (no (unknown) (unknown) Oxygen Flow Rate 0 0 (uni ts (unknown) date) unknown) (unknown) (no (unknown) (unknown) PFSH (units (unkno wn) date) unknown) (unknown) (no (unknown) (unknown) Patient is currently (uni ts (unknown) date) recovering from unknown) biventricular heart catheterization (unknown) (no (unknown) (unknown) Patient is? (units (un known) date) inpatient service due unknown) to the severity of disease, risks of further (unknown) (no (unknown) (unknown) Patient received 2 (units (unknown) date) units PRBC in the unknown) emergency department increasing his H+H (unknown) (no (unknown) (unknown) Patient to follow-up (uni ts (unknown) date) with wound care unknown) specialist as an outpatient.? Appears to (unknown) (no (unknown) (unknown) Patient was fluid (units (unknown) date) resuscitated in the unknown) emergency department 2 L (unknown) (no (unknown) (unknown) Patient's proBNP was (uni ts (unknown) date) almost 7200.? unknown) Improved yesterday at 5570. (unknown) (no (unknown) (unknown) Patient's (units (unkn own) date) rivaroxaban, aspirin unknown) and clopidogrel are being held.? No evidence of (unknown) (no (unknown) (unknown) Patient: (units (unkno wn) date) Osmel Baxter MR#: unknown) M000 (unknown) (no (unknown) (unknown) Plt Count 181 (units ( unknown) date) unknown) (unknown) (no (unknown) (unknown) Potassium 3.7 (units ( unknown) date) unknown) (unknown) (no (unknown) (unknown) Provider: (units (unkn own) date) Chary Ramirez MD unknown) (unknown) (no (unknown) (unknown) Pulse Oximetry 98 97 (uni ts (unknown) date) unknown) (unknown) (no (unknown) (unknown) Pulse Rate 63 69 65 (unit s (unknown) date) unknown) (unknown) (no (unknown) (unknown) Quality (units (unkno wn) date) unknown) (unknown) (no (unknown) (unknown) RBC 3.37 L (units (unk nown) date) unknown) (unknown) (no (unknown) (unknown) RBC Morphology See (units (unknown) date) below unknown) (unknown) (no (unknown) (unknown) RDW 23.7 H (units (unk nown) date) unknown) (unknown) (no (unknown) (unknown) Respiratory Rate 14 (unit s (unknown) date) 18 unknown) (unknown) (no (unknown) (unknown) Result Diagrams: (units (unknown) date) 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) (unknown) (no (unknown) (unknown) Signed By: (units (unk nown) date) unknown) (unknown) (no (unknown) (unknown) Sleep apnea (units (un known) date) unknown) (unknown) (no (unknown) (unknown) Smoking Status: (units (unknown) date) Former smoker unknown) (unknown) (no (unknown) (unknown) Social History (units (unknown) date) (Updated 09/25/18 @ unknown) 11:17 by Telma Dickey DO) (unknown) (no (unknown) (unknown) Sodium 132 L (units (u nknown) date) unknown) (unknown) (no (unknown) (unknown) Surgical History (units (unknown) date) (Reviewed 01/27/22 @ unknown) 07:53 by Tony Aceves MD) (unknown) (no (unknown) (unknown) Temperature 97.2 F L (uni ts (unknown) date) 97.1 F L unknown) (unknown) (no (unknown) (unknown) Time Spent With (units (unknown) date) Patient unknown) (unknown) (no (unknown) (unknown) Total Bilirubin 1.1 (unit s (unknown) date) unknown) (unknown) (no (unknown) (unknown) Total Protein 7.0 (units (unknown) date) unknown) (unknown) (no (unknown) (unknown) VTE (units (unkno wn) date) unknown) (unknown) (no (unknown) (unknown) VTE Prophylaxis: (units (unknown) date) Wells risk score unknown) 1.5.? Pharmacological VTE prophylaxis is (unknown) (no (unknown) (unknown) Vancomycin Trough (units (unknown) date) 9.4 L unknown) (unknown) (no (unknown) (unknown) Vital Signs (units (un known) date) unknown) (unknown) (no (unknown) (unknown) WBC 5.0 (units (unkno wn) date) unknown) (unknown) (no (unknown) (unknown) Wound care consulted (uni ts (unknown) date) due to compromised unknown) skin at site of hematoma left leg.? Has (unknown) (no (unknown) (unknown) [Embedded Image Not (unit s (unknown) date) Available] unknown) (unknown) (no (unknown) (unknown) admission (units (unkn own) date) unknown) (unknown) (no (unknown) (unknown) appears to be triple (uni ts (unknown) date) anti-platelet unknown) therapy, present on admission.? Causing (unknown) (no (unknown) (unknown) benefits in this (units (unknown) date) patient. unknown) (unknown) (no (unknown) (unknown) change treatment to (unit s (unknown) date) micafungin. unknown) (unknown) (no (unknown) (unknown) contraindicated in (units (unknown) date) the setting of active unknown) bleeding will do SCD? (unknown) (no (unknown) (unknown) daily.? (units (unkno wn) date) Hydrochlorothiazide unknown) is not been ordered.? Torsemide has been added and (unknown) (no (unknown) (unknown) details: x 9 (uni ts (unknown) date) months unknown) (unknown) (no (unknown) (unknown) disease progression (unit s (unknown) date) and this stay is unknown) expected to exceed 2 midnights. (unknown) (no (unknown) (unknown) equivalent of the (units (unknown) date) dose of the torsemide unknown) plus furosemide. Therefore patient will (unknown) (no (unknown) (unknown) evaluate.? Consult (units (unknown) date) completed by wound unknown) care nurse.? Continue current treatment.? (unknown) (no (unknown) (unknown) follow-up with wound (uni ts (unknown) date) critical care clinical nurse specialist after unknown) discharge. (unknown) (no (unknown) (unknown) from 6.7-7.9 and (units (unknown) date) 20.8-24.5 unknown) respectively.? Today hemoglobin stable at 8.1.? This (unknown) (no (unknown) (unknown) further bleeding.? (units (unknown) date) Hemoglobin stable.? unknown) Restart aspirin and rivaroxaban tomorrow. (unknown) (no (unknown) (unknown) have no infection (units (unknown) date) and is proceeding unknown) with healing. (unknown) (no (unknown) (unknown) hematoma left leg.? (unit s (unknown) date) With skin compromise unknown) over the hematoma will have wound care (unknown) (no (unknown) (unknown) hold due to renal (units (unknown) date) function. unknown) (unknown) (no (unknown) (unknown) household members: (units (unknown) date) children unknown) (unknown) (no (unknown) (unknown) hydrochlorothiazide (unit s (unknown) date) and torsemide.? Will unknown) increase daily furosemide to 40 mg (unknown) (no (unknown) (unknown) infection.? This has (uni ts (unknown) date) been discontinued. unknown) (unknown) (no (unknown) (unknown) is dated furosemide (unit s (unknown) date) was discontinued and unknown) the torsemide dose increased to be (unknown) (no (unknown) (unknown) is stable.? (units (un known) date) Rivaroxaban and unknown) aspirin has been re-initiated. (unknown) (no (unknown) (unknown) lt completed. (units ( unknown) date) unknown) (unknown) (no (unknown) (unknown) marital status: (units (unknown) date) unknown) (unknown) (no (unknown) (unknown) not been evaluated (units (unknown) date) yet.? Wound care unknown) nurse has seen the patient.? Recommends (unknown) (no (unknown) (unknown) patient?s care is (units (unknown) date) appreciated.? This unknown) has been completed.? Wound care nurse consu (unknown) (no (unknown) (unknown) promised. (units (unkn own) date) unknown) (unknown) (no (unknown) (unknown) today; this time is (unit s (unknown) date) exclusive of unknown) procedural time. (unknown) (no (unknown) (unknown) treatment.? (units (un known) date) unknown) Result panel 97 (unknown) (no (unknown) (unknown) (no value) (units (unk nown) date) unknown) (unknown) (no (unknown) (unknown) Date of Service: (units (unknown) date) 01/27/22 unknown) (unknown) (no (unknown) (unknown) (no value) (units (unk nown) date) unknown) (unknown) (no (unknown) (unknown) - (units (unkno wn) date) unknown) (unknown) (no (unknown) (unknown) 01/31/22 05:12 (units (unknown) date) unknown) (unknown) (no (unknown) (unknown) 01/31/22 1312 (units ( unknown) date) unknown) (unknown) (no (unknown) (unknown) [facility] [address] (uni ts (unknown) date) [address] unknown) [place] [address] (unknown) (no (unknown) (unknown) Laboratory Results - (uni ts (unknown) date) last 24 hr unknown) (unknown) (no (unknown) (unknown) Progress Note (units ( unknown) date) unknown) (unknown) (no (unknown) (unknown) (no value) (units (unk nown) date) unknown) (unknown) (no (unknown) (unknown) 01/30/22 01/31/22 (units (unknown) date) 01/31/22 unknown) (unknown) (no (unknown) (unknown) 20:10 05:12 05:12 (units (unknown) date) unknown) (unknown) (no (unknown) (unknown) 01/31/22 (units (unkno wn) date) unknown) (unknown) (no (unknown) (unknown) be on new mg b.i.d. (unit s (unknown) date) of torsemide. unknown) Torsemide was chosen due to the mortality (unknown) (no (unknown) (unknown) (past 8 hours): (units (unknown) date) unknown) (unknown) (no (unknown) (unknown) 05:30 01/31/22 (units (unknown) date) unknown) (unknown) (no (unknown) (unknown) 07:45 (units (unkno wn) date) unknown) (unknown) (no (unknown) (unknown) 08:48 01/31/22 (units (unknown) date) unknown) (unknown) (no (unknown) (unknown) 1. Acute blood loss (unit s (unknown) date) anemia likely unknown) secondary to over coagulation with what (unknown) (no (unknown) (unknown) 2. Acute kidney (units (unknown) date) injury likely unknown) secondary to blood loss anemia, present on (unknown) (no (unknown) (unknown) 3. Acute (units (unkno wn) date) decompensated heart unknown) failure with reduced ejection fraction, present on (unknown) (no (unknown) (unknown) [id number] (units (unkno wn) date) unknown) (unknown) (no (unknown) (unknown) 4. Probable left (units (unknown) date) knee cellulitis, unknown) acute, present on admission (unknown) (no (unknown) (unknown) 5. Coronary artery (units (unknown) date) disease, chronic unknown) (unknown) (no (unknown) (unknown) 6. Diabetes type 2, (unit s (unknown) date) appears to be well unknown) controlled (unknown) (no (unknown) (unknown) 7. Mobilization.? (units (unknown) date) Beginning to mobilize unknown) with physical therapy.? Continue with (unknown) (no (unknown) (unknown) 8. Urinary tract (units (unknown) date) infection with unknown) Renetta glabrata.?With discussion with pharmacy (unknown) (no (unknown) (unknown) ?A1c is 6.5 (units (un known) date) unknown) (unknown) (no (unknown) (unknown) ALT 21 (units (unkno wn) date) unknown) (unknown) (no (unknown) (unknown) AST 36 (units (unkno wn) date) unknown) (unknown) (no (unknown) (unknown) Age/Sex: 76 / M (units (unknown) date) unknown) (unknown) (no (unknown) (unknown) Albumin 3.2 L (units ( unknown) date) unknown) (unknown) (no (unknown) (unknown) Albumin/Globulin (units (unknown) date) Ratio 0.8 L unknown) (unknown) (no (unknown) (unknown) Alkaline Phosphatase (uni ts (unknown) date) 99 unknown) (unknown) (no (unknown) (unknown) Anisocytosis 3+ H (units (unknown) date) unknown) (unknown) (no (unknown) (unknown) Anticoagulated (units (unknown) date) unknown) (unknown) (no (unknown) (unknown) Assessment + Plan (units (unknown) date) unknown) (unknown) (no (unknown) (unknown) Assessment + Plan (units (unknown) date) narrative: unknown) (unknown) (no (unknown) (unknown) Atrial fibrillation (unit s (unknown) date) unknown) (unknown) (no (unknown) (unknown) BUN 57 H (units (unkno wn) date) unknown) (unknown) (no (unknown) (unknown) BUN/Creatinine Ratio (uni ts (unknown) date) 28.5 H unknown) (unknown) (no (unknown) (unknown) Baso # (Auto) 0 (units (unknown) date) unknown) (unknown) (no (unknown) (unknown) Baso % (Auto) 0.4 (units (unknown) date) unknown) (unknown) (no (unknown) (unknown) Blood Pressure (units (unknown) date) 106/44 L 100/47 L unknown) (unknown) (no (unknown) (unknown) Calcium 8.3 L (units ( unknown) date) unknown) (unknown) (no (unknown) (unknown) Carb controlled diet (uni ts (unknown) date) with a.c. 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 (unknown) (no (unknown) (unknown) Cardiovascular:? 06/13 (uni ts (unknown) date) systolic murmur.? unknown) S1-S2.? Peripheral pulses equal (unknown) (no (unknown) (unknown) Chloride 99 (units (un known) date) unknown) (unknown) (no (unknown) (unknown) Closely monitor (units (unknown) date) renal function and unknown) hold nephrotoxic medications (Lisinopril).? (unknown) (no (unknown) (unknown) Code status: Full (units (unknown) date) code as discussed unknown) with the patient who identifies his son, (unknown) (no (unknown) (unknown) Consultants: (units (unknown) date) [facility] unknown) Surgery,? care and involvement in the (unknown) (no (unknown) (unknown) Continue carvedilol (unit s (unknown) date) 25 mg p.o. b.i.d., unknown) patient receives in 12.5 mg tablets (unknown) (no (unknown) (unknown) Continue home dose (units (unknown) date) of atorvastatin 40 mg unknown) p.o. at bedtime (unknown) (no (unknown) (unknown) Coronary artery (units (unknown) date) disease unknown) (unknown) (no (unknown) (unknown) Creatinine 2.00 H (units (unknown) date) unknown) (unknown) (no (unknown) (unknown) Critical Care time: (unit s (unknown) date) unknown) (unknown) (no (unknown) (unknown) : 1945 (units (unknown) date) Acct:[id number] unknown) (unknown) (no (unknown) (unknown) Date Patient Seen: (units (unknown) date) 01/31/22 unknown) (unknown) (no (unknown) (unknown) Deep Vein (units (unkn own) date) Thrombosis/Pulmonary unknown) Embolism Present on Admission: No (unknown) (no (unknown) (unknown) Diabetes (units (unkno wn) date) unknown) (unknown) (no (unknown) (unknown) Dispo: Unknown at (units (unknown) date) this time.? unknown) (unknown) (no (unknown) (unknown) David his surrogate (units (unknown) date) and POA. unknown) (unknown) (no (unknown) (unknown) Dyslipidemia (units (u nknown) date) unknown) (unknown) (no (unknown) (unknown) Eos # (Auto) 200 (units (unknown) date) unknown) (unknown) (no (unknown) (unknown) Eos % (Auto) 3.6 (units (unknown) date) unknown) (unknown) (no (unknown) (unknown) Estimated GFR 34 L (units (unknown) date) unknown) (unknown) (no (unknown) (unknown) Exam (units (unkno wn) date) unknown) (unknown) (no (unknown) (unknown) Exam Narrative: (units (unknown) date) unknown) (unknown) (no (unknown) (unknown) FEN: IV fluids: (units (unknown) date) saline lock, diet: unknown) carb controlled diet (unknown) (no (unknown) (unknown) Family History (units (unknown) date) (Reviewed 01/27/22 @ unknown) 07:53 by Tony Aceves MD) (unknown) (no (unknown) (unknown) GFR improved to 34 (units (unknown) date) today.? Creatinine is unknown) 2.00. Renal function is stable and (unknown) (no (unknown) (unknown) Gastrointestinal:? (units (unknown) date) Bowel sounds normal.? unknown) Abdomen soft.? Nontender. (unknown) (no (unknown) (unknown) Globulin 3.8 (units (u nknown) date) unknown) (unknown) (no (unknown) (unknown) Glucose 90 (units (unk nown) date) unknown) (unknown) (no (unknown) (unknown) HEENT:? Pupils equal (uni ts (unknown) date) reaction to light.? unknown) Extraocular movements normal.? Neck is (unknown) (no (unknown) (unknown) Hct 26.4 L (units (unk nown) date) unknown) (unknown) (no (unknown) (unknown) He is currently (units (unknown) date) saline lock due to unknown) volume overload (unknown) (no (unknown) (unknown) He will receive his (unit s (unknown) date) home dose of Lantus unknown) 30 units b.i.d. Metformin remains on (unknown) (no (unknown) (unknown) Hgb 8.7 L (units (unkn own) date) unknown) (unknown) (no (unknown) (unknown) Hx of (units (unkno wn) date) cholecystectomy unknown) (unknown) (no (unknown) (unknown) Hypertension (units (u nknown) date) unknown) (unknown) (no (unknown) (unknown) I spent a total of (units (unknown) date) [] minutes of unknown) critical care time on this patient's care (unknown) (no (unknown) (unknown) In the ER, he (units ( unknown) date) received IV Lasix 80 unknown) mg in addition to his home oral dose of (unknown) (no (unknown) (unknown) Initially vancomycin (uni ts (unknown) date) that was largely unknown) prophylactic since no persistent signs of (unknown) (no (unknown) (unknown) Interval history: (units (unknown) date) unknown) (unknown) (no (unknown) (unknown) Labs (units (unkno wn) date) unknown) (unknown) (no (unknown) (unknown) Labs: (units (unkno wn) date) unknown) (unknown) (no (unknown) (unknown) Low-dose (units (unkno wn) date) correctional scale unknown) insulin and adjust as needed (unknown) (no (unknown) (unknown) Lymph # (Auto) 900 L (uni ts (unknown) date) unknown) (unknown) (no (unknown) (unknown) Lymph % (Auto) 17.9 (unit s (unknown) date) L unknown) (unknown) (no (unknown) (unknown) MCH 25.8 L (units (unk nown) date) unknown) (unknown) (no (unknown) (unknown) MCHC 32.8 (units (unkn own) date) unknown) (unknown) (no (unknown) (unknown) MCV 78.5 L (units (unk nown) date) unknown) (unknown) (no (unknown) (unknown) Medical History (units (unknown) date) (Reviewed 01/27/22 @ unknown) 07:53 by Tony Aceves MD) (unknown) (no (unknown) (unknown) Lajas # (Auto) 500 (units (unknown) date) unknown) (unknown) (no (unknown) (unknown) Lajas % (Auto) 10.1 (units (unknown) date) unknown) (unknown) (no (unknown) (unknown) Musculoskeletal:? (units (unknown) date) Able to move all unknown) extremities volitionally.? Beginning to (unknown) (no (unknown) (unknown) Narrative (units (unkn own) date) unknown) (unknown) (no (unknown) (unknown) Neuro:? Normal (units (unknown) date) sensation of all unknown) extremities.? Oriented x3. (unknown) (no (unknown) (unknown) Neut # (Auto) 3400 (units (unknown) date) unknown) (unknown) (no (unknown) (unknown) Neut % (Auto) 68.0 (units (unknown) date) unknown) (unknown) (no (unknown) (unknown) No new complaints. (units (unknown) date) Patient feels he is unknown) progressing with physical therapy. (unknown) (no (unknown) (unknown) Nursing has no new (units (unknown) date) complaints. unknown) (unknown) (no (unknown) (unknown) Objective (units (unkn own) date) unknown) (unknown) (no (unknown) (unknown) Oriented to time (units (unknown) date) place and person.? unknown) Appears in no acute medical distress. (unknown) (no (unknown) (unknown) Orthopedic surgery (units (unknown) date) has been consulted unknown) and seen the patient. (unknown) (no (unknown) (unknown) Other Adopted (units ( unknown) date) unknown) (unknown) (no (unknown) (unknown) Oxygen Delivery (units (unknown) date) Method Room Air unknown) (unknown) (no (unknown) (unknown) Oxygen Flow Rate 0 (units (unknown) date) unknown) (unknown) (no (unknown) (unknown) Oxygen Flow Rate 0 0 (uni ts (unknown) date) unknown) (unknown) (no (unknown) (unknown) PFSH (units (unkno wn) date) unknown) (unknown) (no (unknown) (unknown) Patient is currently (uni ts (unknown) date) recovering from unknown) biventricular heart catheterization (unknown) (no (unknown) (unknown) Patient is? (units (un known) date) inpatient service due unknown) to the severity of disease, risks of further (unknown) (no (unknown) (unknown) Patient received 2 (units (unknown) date) units PRBC in the unknown) emergency department increasing his H+H (unknown) (no (unknown) (unknown) Patient to follow-up (uni ts (unknown) date) with wound care unknown) specialist as an outpatient.? Appears to (unknown) (no (unknown) (unknown) Patient was fluid (units (unknown) date) resuscitated in the unknown) emergency department 2 L (unknown) (no (unknown) (unknown) Patient's proBNP was (uni ts (unknown) date) almost 7200.? unknown) Improved yesterday at 5570. (unknown) (no (unknown) (unknown) Patient's (units (unkn own) date) rivaroxaban, aspirin unknown) and clopidogrel are being held.? No evidence of (unknown) (no (unknown) (unknown) Patient: (units (unkno wn) date) Osmel Baxter MR#: unknown) M000 (unknown) (no (unknown) (unknown) Plt Count 181 (units ( unknown) date) unknown) (unknown) (no (unknown) (unknown) Potassium 3.7 (units ( unknown) date) unknown) (unknown) (no (unknown) (unknown) Provider: (units (unkn own) date) Chary Ramirez MD unknown) (unknown) (no (unknown) (unknown) Psych:? Normal mood (unit s (unknown) date) and affect. unknown) (unknown) (no (unknown) (unknown) Pulse Oximetry 98 97 (uni ts (unknown) date) unknown) (unknown) (no (unknown) (unknown) Pulse Rate 63 69 65 (unit s (unknown) date) unknown) (unknown) (no (unknown) (unknown) Quality (units (unkno wn) date) unknown) (unknown) (no (unknown) (unknown) RBC 3.37 L (units (unk nown) date) unknown) (unknown) (no (unknown) (unknown) RBC Morphology See (units (unknown) date) below unknown) (unknown) (no (unknown) (unknown) RDW 23.7 H (units (unk nown) date) unknown) (unknown) (no (unknown) (unknown) Respiratory Rate 14 (unit s (unknown) date) 18 unknown) (unknown) (no (unknown) (unknown) Respiratory:? 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 Abrasions (units (unknown) date) left foot.? Wound unknown) left knee with hematoma currently dressed.? (unknown) (no (unknown) (unknown) Sleep apnea (units (un known) date) unknown) (unknown) (no (unknown) (unknown) Smoking Status: (units (unknown) date) Former smoker unknown) (unknown) (no (unknown) (unknown) Social History (units (unknown) date) (Updated 09/25/18 @ unknown) 11:17 by Telma Dickey DO) (unknown) (no (unknown) (unknown) Sodium 132 L (units (u nknown) date) unknown) (unknown) (no (unknown) (unknown) Soft tissues (units (u nknown) date) abrasions right arm unknown) dressed. (unknown) (no (unknown) (unknown) Subjective (units (unk nown) date) unknown) (unknown) (no (unknown) (unknown) Surgical History (units (unknown) date) (Reviewed 01/27/22 @ unknown) 07:53 by Tony Aceves MD) (unknown) (no (unknown) (unknown) Temperature 97.2 F L (uni ts (unknown) date) 97.1 F L unknown) (unknown) (no (unknown) (unknown) Time Patient Seen: (units (unknown) date) 12:45 unknown) (unknown) (no (unknown) (unknown) Time Spent With (units (unknown) date) Patient unknown) (unknown) (no (unknown) (unknown) Total Bilirubin 1.1 (unit s (unknown) date) unknown) (unknown) (no (unknown) (unknown) Total Protein 7.0 (units (unknown) date) unknown) (unknown) (no (unknown) (unknown) VTE (units (unkno wn) date) unknown) (unknown) (no (unknown) (unknown) VTE Prophylaxis: (units (unknown) date) Wells risk score unknown) 1.5.? Pharmacological VTE prophylaxis is (unknown) (no (unknown) (unknown) Vancomycin Trough (units (unknown) date) 9.4 L unknown) (unknown) (no (unknown) (unknown) Vital Signs (units (un known) date) unknown) (unknown) (no (unknown) (unknown) WBC 5.0 (units (unkno wn) date) unknown) (unknown) (no (unknown) (unknown) Wound care consulted (uni ts (unknown) date) due to compromised unknown) skin at site of hematoma left leg.? Has (unknown) (no (unknown) (unknown) [Embedded Image Not (unit s (unknown) date) Available] unknown) (unknown) (no (unknown) (unknown) admission (units (unkn own) date) unknown) (unknown) (no (unknown) (unknown) appears to be triple (uni ts (unknown) date) anti-platelet unknown) therapy, present on admission.? Causing (unknown) (no (unknown) (unknown) benefits in this (units (unknown) date) patient. unknown) (unknown) (no (unknown) (unknown) bilaterally.? No (units (unknown) date) pedal edema. unknown) (unknown) (no (unknown) (unknown) change treatment to (unit s (unknown) date) micafungin. This unknown) requires intravenous treatment. (unknown) (no (unknown) (unknown) compromised. (units (u nknown) date) unknown) (unknown) (no (unknown) (unknown) consult completed. (units (unknown) date) unknown) (unknown) (no (unknown) (unknown) contraindicated in (units (unknown) date) the setting of active unknown) bleeding will do SCD? (unknown) (no (unknown) (unknown) daily.? (units (unkno wn) date) Hydrochlorothiazide unknown) is not been ordered.? Torsemide has been added and (unknown) (no (unknown) (unknown) details: x 9 (uni ts (unknown) date) months unknown) (unknown) (no (unknown) (unknown) disease progression. (uni ts (unknown) date) unknown) (unknown) (no (unknown) (unknown) equivalent of the (units (unknown) date) dose of the torsemide unknown) plus furosemide. Therefore patient will (unknown) (no (unknown) (unknown) evaluate.? Consult (units (unknown) date) completed by wound unknown) care nurse.? Continue current treatment.? (unknown) (no (unknown) (unknown) follow-up with wound (uni ts (unknown) date) critical care clinical nurse specialist after unknown) discharge. (unknown) (no (unknown) (unknown) from 6.7-7.9 and (units (unknown) date) 20.8-24.5 unknown) respectively.? Today hemoglobin stable at 8.7.? This (unknown) (no (unknown) (unknown) further bleeding.? (units (unknown) date) Hemoglobin stable.? unknown) Restart aspirin and rivaroxaban tomorrow. (unknown) (no (unknown) (unknown) have no infection (units (unknown) date) and is proceeding unknown) with healing. (unknown) (no (unknown) (unknown) hematoma left leg.? (unit s (unknown) date) With skin compromise unknown) over the hematoma will have wound care (unknown) (no (unknown) (unknown) hold due to renal (units (unknown) date) function. unknown) (unknown) (no (unknown) (unknown) household members: (units (unknown) date) children unknown) (unknown) (no (unknown) (unknown) hydrochlorothiazide (unit s (unknown) date) and torsemide.? Will unknown) increase daily furosemide to 40 mg (unknown) (no (unknown) (unknown) infection.? This has (uni ts (unknown) date) been discontinued. unknown) (unknown) (no (unknown) (unknown) is dated furosemide (unit s (unknown) date) was discontinued and unknown) the torsemide dose increased to be (unknown) (no (unknown) (unknown) is midline. (units (un known) date) unknown) (unknown) (no (unknown) (unknown) is stable.? (units (un known) date) Rivaroxaban and unknown) aspirin had been re-initiated but aspirin was (unknown) (no (unknown) (unknown) marital status: (units (unknown) date) unknown) (unknown) (no (unknown) (unknown) mobilize more with (units (unknown) date) physical therapy.? No unknown) localized strength deficits. (unknown) (no (unknown) (unknown) not been evaluated (units (unknown) date) yet.? Wound care unknown) nurse has seen the patient.? Recommends (unknown) (no (unknown) (unknown) patient and aspirin (unit s (unknown) date) may be a trigger for unknown) further bleeding. (unknown) (no (unknown) (unknown) patient?s care is (units (unknown) date) appreciated.? This unknown) has been completed.? Wound care nurse (unknown) (no (unknown) (unknown) stopped today due to (uni ts (unknown) date) the fact at unknown) rivaroxaban is the most important in this (unknown) (no (unknown) (unknown) supple.? Neck nodes (unit s (unknown) date) are nontender unknown) nonpalpable.? Head is normocephalic.? Trachea (unknown) (no (unknown) (unknown) today; this time is (unit s (unknown) date) exclusive of unknown) procedural time. (unknown) (no (unknown) (unknown) treatment.? (units (un known) date) unknown) (unknown) (no (unknown) (unknown) wheezes or crackles. (uni ts (unknown) date) unknown) Result panel 98 (unknown) (no date) (unknown) (unknown) (no value) (units (un known) unknown) (unknown) (no date) (unknown) (unknown) NO GROWTH (units (unk nown) AFTER 5 DAYS unknown) Result panel 99 (unknown) (no date) (unknown) (unknown) (no value) (units (un known) unknown) (unknown) (no date) (unknown) (unknown) NO GROWTH (units (unk nown) AFTER 5 DAYS unknown) Result panel 100 (unknown) (no (unknown) (unknown) (no value) (units (unk nown) date) unknown) (unknown) (no (unknown) (unknown) Date of Service: (units (unknown) date) 01/27/22 unknown) (unknown) (no (unknown) (unknown) (no value) (units (unk nown) date) unknown) (unknown) (no (unknown) (unknown) - (units (unkno wn) date) unknown) (unknown) (no (unknown) (unknown) 01/31/22 05:12 (units (unknown) date) unknown) (unknown) (no (unknown) (unknown) [facility] [address] (uni ts (unknown) date) [address] unknown) [place] [address] (unknown) (no (unknown) (unknown) Laboratory Results - (uni ts (unknown) date) last 24 hr unknown) (unknown) (no (unknown) (unknown) Progress Note (units ( unknown) date) unknown) (unknown) (no (unknown) (unknown) (no value) (units (unk nown) date) unknown) (unknown) (no (unknown) (unknown) 01/30/22 01/31/22 (units (unknown) date) 01/31/22 unknown) (unknown) (no (unknown) (unknown) 20:10 05:12 05:12 (units (unknown) date) unknown) (unknown) (no (unknown) (unknown) 01/31/22 (units (unkno wn) date) unknown) (unknown) (no (unknown) (unknown) be on new mg b.i.d. (unit s (unknown) date) of torsemide. unknown) Torsemide was chosen due to the mortality (unknown) (no (unknown) (unknown) (past 8 hours): (units (unknown) date) unknown) (unknown) (no (unknown) (unknown) 1. Acute blood loss (unit s (unknown) date) anemia likely unknown) secondary to over coagulation with what (unknown) (no (unknown) (unknown) 14:21 01/31/22 (units (unknown) date) unknown) (unknown) (no (unknown) (unknown) 2. Acute kidney (units (unknown) date) injury likely unknown) secondary to blood loss anemia, present on (unknown) (no (unknown) (unknown) 20:34 01/31/22 (units (unknown) date) unknown) (unknown) (no (unknown) (unknown) 20:44 (units (unkno wn) date) unknown) (unknown) (no (unknown) (unknown) 3. Acute (units (unkno wn) date) decompensated heart unknown) failure with reduced ejection fraction, present on (unknown) (no (unknown) (unknown) [id number] (units (unkno wn) date) unknown) (unknown) (no (unknown) (unknown) 4. Probable left (units (unknown) date) knee cellulitis, unknown) acute, present on admission (unknown) (no (unknown) (unknown) 5. Coronary artery (units (unknown) date) disease, chronic unknown) (unknown) (no (unknown) (unknown) 6. Diabetes type 2, (unit s (unknown) date) appears to be well unknown) controlled (unknown) (no (unknown) (unknown) 7. Mobilization.? (units (unknown) date) Beginning to mobilize unknown) with physical therapy.? Continue with (unknown) (no (unknown) (unknown) 8. Urinary tract (units (unknown) date) infection with unknown) Ernetta glabrata.?With discussion with pharmacy (unknown) (no (unknown) (unknown) A1c is 6.5 (units (unk nown) date) unknown) (unknown) (no (unknown) (unknown) ALT 21 (units (unkno wn) date) unknown) (unknown) (no (unknown) (unknown) AST 36 (units (unkno wn) date) unknown) (unknown) (no (unknown) (unknown) Age/Sex: 76 / M (units (unknown) date) unknown) (unknown) (no (unknown) (unknown) Albumin 3.2 L (units ( unknown) date) unknown) (unknown) (no (unknown) (unknown) Albumin/Globulin (units (unknown) date) Ratio 0.8 L unknown) (unknown) (no (unknown) (unknown) Alkaline Phosphatase (uni ts (unknown) date) 99 unknown) (unknown) (no (unknown) (unknown) Anisocytosis 3+ H (units (unknown) date) unknown) (unknown) (no (unknown) (unknown) Anticoagulated (units (unknown) date) unknown) (unknown) (no (unknown) (unknown) Assessment + Plan (units (unknown) date) unknown) (unknown) (no (unknown) (unknown) Assessment + Plan (units (unknown) date) narrative: unknown) (unknown) (no (unknown) (unknown) Atrial fibrillation (unit s (unknown) date) unknown) (unknown) (no (unknown) (unknown) BUN 57 H (units (unkno wn) date) unknown) (unknown) (no (unknown) (unknown) BUN/Creatinine Ratio (uni ts (unknown) date) 28.5 H unknown) (unknown) (no (unknown) (unknown) Baso # (Auto) 0 (units (unknown) date) unknown) (unknown) (no (unknown) (unknown) Baso % (Auto) 0.4 (units (unknown) date) unknown) (unknown) (no (unknown) (unknown) Blood Pressure 94/70 (uni ts (unknown) date) 112/52 L 112/52 L unknown) (unknown) (no (unknown) (unknown) Calcium 8.3 L (units ( unknown) date) unknown) (unknown) (no (unknown) (unknown) Carb controlled diet (uni ts (unknown) date) with a.c. 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 (unknown) (no (unknown) (unknown) Cardiovascular:? 1/6 (uni ts (unknown) date) systolic murmur.? unknown) S1-S2.? Peripheral pulses equal (unknown) (no (unknown) (unknown) Chloride 99 (units (un known) date) unknown) (unknown) (no (unknown) (unknown) Closely monitor (units (unknown) date) renal function and unknown) hold nephrotoxic medications (Lisinopril).? (unknown) (no (unknown) (unknown) Code status: Full (units (unknown) date) code as discussed unknown) with the patient who identifies his son, (unknown) (no (unknown) (unknown) Consultants: (units (unknown) date) [facility] unknown) Surgery,? care and involvement in the (unknown) (no (unknown) (unknown) Continue carvedilol (unit s (unknown) date) 25 mg p.o. b.i.d., unknown) patient receives in 12.5 mg tablets (unknown) (no (unknown) (unknown) Continue home dose (units (unknown) date) of atorvastatin 40 mg unknown) p.o. at bedtime (unknown) (no (unknown) (unknown) Coronary artery (units (unknown) date) disease unknown) (unknown) (no (unknown) (unknown) Creatinine 2.00 H (units (unknown) date) unknown) (unknown) (no (unknown) (unknown) Critical Care time: (unit s (unknown) date) unknown) (unknown) (no (unknown) (unknown) : 1945 (units (unknown) date) Acct:[id number] unknown) (unknown) (no (unknown) (unknown) Deep Vein (units (unkn own) date) Thrombosis/Pulmonary unknown) Embolism Present on Admission: No (unknown) (no (unknown) (unknown) Diabetes (units (unkno wn) date) unknown) (unknown) (no (unknown) (unknown) Dispo: Unknown at (units (unknown) date) this time.? unknown) (unknown) (no (unknown) (unknown) David his surrogate (units (unknown) date) and POA. unknown) (unknown) (no (unknown) (unknown) Dyslipidemia (units (u nknown) date) unknown) (unknown) (no (unknown) (unknown) Eos # (Auto) 200 (units (unknown) date) unknown) (unknown) (no (unknown) (unknown) Eos % (Auto) 3.6 (units (unknown) date) unknown) (unknown) (no (unknown) (unknown) Estimated GFR 34 L (units (unknown) date) unknown) (unknown) (no (unknown) (unknown) Exam (units (unkno wn) date) unknown) (unknown) (no (unknown) (unknown) Exam Narrative: (units (unknown) date) unknown) (unknown) (no (unknown) (unknown) FEN: IV fluids: (units (unknown) date) saline lock, diet: unknown) carb controlled diet (unknown) (no (unknown) (unknown) Family History (units (unknown) date) (Reviewed 01/27/22 @ unknown) 07:53 by Tony Aceves MD) (unknown) (no (unknown) (unknown) GFR improved to 34 (units (unknown) date) today.? Creatinine is unknown) 2.00. Renal function is stable and (unknown) (no (unknown) (unknown) Gastrointestinal:? (units (unknown) date) Bowel sounds normal.? unknown) Abdomen soft.? Nontender. (unknown) (no (unknown) (unknown) Globulin 3.8 (units (u nknown) date) unknown) (unknown) (no (unknown) (unknown) Glucose 90 (units (unk nown) date) unknown) (unknown) (no (unknown) (unknown) HEENT:? Pupils equal (uni ts (unknown) date) reaction to light.? unknown) Extraocular movements normal.? Neck is (unknown) (no (unknown) (unknown) Hct 26.4 L (units (unk nown) date) unknown) (unknown) (no (unknown) (unknown) He is currently (units (unknown) date) saline lock due to unknown) volume overload (unknown) (no (unknown) (unknown) He will receive his (unit s (unknown) date) home dose of Lantus unknown) 30 units b.i.d. Metformin remains on (unknown) (no (unknown) (unknown) Hgb 8.7 L (units (unkn own) date) unknown) (unknown) (no (unknown) (unknown) Hx of (units (unkno wn) date) cholecystectomy unknown) (unknown) (no (unknown) (unknown) Hypertension (units (u nknown) date) unknown) (unknown) (no (unknown) (unknown) I spent a total of (units (unknown) date) [] minutes of unknown) critical care time on this patient's care (unknown) (no (unknown) (unknown) In the ER, he (units ( unknown) date) received IV Lasix 80 unknown) mg in addition to his home oral dose of (unknown) (no (unknown) (unknown) Initially vancomycin (uni ts (unknown) date) that was largely unknown) prophylactic since no persistent signs of (unknown) (no (unknown) (unknown) Labs (units (unkno wn) date) unknown) (unknown) (no (unknown) (unknown) Labs: (units (unkno wn) date) unknown) (unknown) (no (unknown) (unknown) Low-dose (units (unkno wn) date) correctional scale unknown) insulin and adjust as needed (unknown) (no (unknown) (unknown) Lymph # (Auto) 900 L (uni ts (unknown) date) unknown) (unknown) (no (unknown) (unknown) Lymph % (Auto) 17.9 (unit s (unknown) date) L unknown) (unknown) (no (unknown) (unknown) MCH 25.8 L (units (unk nown) date) unknown) (unknown) (no (unknown) (unknown) MCHC 32.8 (units (unkn own) date) unknown) (unknown) (no (unknown) (unknown) MCV 78.5 L (units (unk nown) date) unknown) (unknown) (no (unknown) (unknown) Medical History (units (unknown) date) (Reviewed 01/27/22 @ unknown) 07:53 by Tony Aceves MD) (unknown) (no (unknown) (unknown) Lajas # (Auto) 500 (units (unknown) date) unknown) (unknown) (no (unknown) (unknown) Lajas % (Auto) 10.1 (units (unknown) date) unknown) (unknown) (no (unknown) (unknown) Musculoskeletal:? (units (unknown) date) Able to move all unknown) extremities volitionally.? Beginning to (unknown) (no (unknown) (unknown) Narrative (units (unkn own) date) unknown) (unknown) (no (unknown) (unknown) Neuro:? Normal (units (unknown) date) sensation of all unknown) extremities.? Oriented x3. (unknown) (no (unknown) (unknown) Neut # (Auto) 3400 (units (unknown) date) unknown) (unknown) (no (unknown) (unknown) Neut % (Auto) 68.0 (units (unknown) date) unknown) (unknown) (no (unknown) (unknown) Objective (units (unkn own) date) unknown) (unknown) (no (unknown) (unknown) Oriented to time (units (unknown) date) place and person.? unknown) Appears in no acute medical distress. (unknown) (no (unknown) (unknown) Orthopedic surgery (units (unknown) date) has been consulted unknown) and seen the patient. (unknown) (no (unknown) (unknown) Other Adopted (units ( unknown) date) unknown) (unknown) (no (unknown) (unknown) Oxygen Delivery (units (unknown) date) Method Room Air unknown) (unknown) (no (unknown) (unknown) Oxygen Flow Rate 0 (units (unknown) date) unknown) (unknown) (no (unknown) (unknown) Oxygen Flow Rate 0 0 (uni ts (unknown) date) unknown) (unknown) (no (unknown) (unknown) PFSH (units (unkno wn) date) unknown) (unknown) (no (unknown) (unknown) Patient is currently (uni ts (unknown) date) recovering from unknown) biventricular heart catheterization (unknown) (no (unknown) (unknown) Patient is? (units (un known) date) inpatient service due unknown) to the severity of disease, risks of further (unknown) (no (unknown) (unknown) Patient received 2 (units (unknown) date) units PRBC in the unknown) emergency department increasing his H+H (unknown) (no (unknown) (unknown) Patient to follow-up (uni ts (unknown) date) with wound care unknown) specialist as an outpatient.? Appears to (unknown) (no (unknown) (unknown) Patient was fluid (units (unknown) date) resuscitated in the unknown) emergency department 2 L (unknown) (no (unknown) (unknown) Patient's proBNP was (uni ts (unknown) date) almost 7200.? unknown) Improved yesterday at 5570. (unknown) (no (unknown) (unknown) Patient's (units (unkn own) date) rivaroxaban, aspirin unknown) and clopidogrel are being held.? No evidence of (unknown) (no (unknown) (unknown) Patient: (units (unkno wn) date) Osmel Baxter MR#: unknown) M000 (unknown) (no (unknown) (unknown) Plt Count 181 (units ( unknown) date) unknown) (unknown) (no (unknown) (unknown) Potassium 3.7 (units ( unknown) date) unknown) (unknown) (no (unknown) (unknown) Provider: (units (unkn own) date) Freddie Thomas D.O. unknown) (unknown) (no (unknown) (unknown) Psych:? Normal mood (unit s (unknown) date) and affect. unknown) (unknown) (no (unknown) (unknown) Pulse Oximetry 97 97 (uni ts (unknown) date) unknown) (unknown) (no (unknown) (unknown) Pulse Rate 65 61 61 (unit s (unknown) date) unknown) (unknown) (no (unknown) (unknown) Quality (units (unkno wn) date) unknown) (unknown) (no (unknown) (unknown) RBC 3.37 L (units (unk nown) date) unknown) (unknown) (no (unknown) (unknown) RBC Morphology See (units (unknown) date) below unknown) (unknown) (no (unknown) (unknown) RDW 23.7 H (units (un known) date) unknown) (unknown) (no (unknown) (unknown) Respiratory Rate 16 (unit s (unknown) date) 16 unknown) (unknown) (no (unknown) (unknown) Respiratory:? 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 Abrasions (units (unknown) date) left foot.? Wound unknown) left knee with hematoma currently dressed.? (unknown) (no (unknown) (unknown) Sleep apnea (units (un known) date) unknown) (unknown) (no (unknown) (unknown) Smoking Status: (units (unknown) date) Former smoker unknown) (unknown) (no (unknown) (unknown) Social History (units (unknown) date) (Updated 09/25/18 @ unknown) 11:17 by Telma Dickey DO) (unknown) (no (unknown) (unknown) Sodium 132 L (units (u nknown) date) unknown) (unknown) (no (unknown) (unknown) Soft tissues (units (u nknown) date) abrasions right arm unknown) dressed. (unknown) (no (unknown) (unknown) Surgical History (units (unknown) date) (Reviewed 01/27/22 @ unknown) 07:53 by Tony Aceves MD) (unknown) (no (unknown) (unknown) Temperature 97.2 F L (uni ts (unknown) date) 97.1 F L unknown) (unknown) (no (unknown) (unknown) Time Spent With (units (unknown) date) Patient unknown) (unknown) (no (unknown) (unknown) Total Bilirubin 1.1 (unit s (unknown) date) unknown) (unknown) (no (unknown) (unknown) Total Protein 7.0 (units (unknown) date) unknown) (unknown) (no (unknown) (unknown) VTE (units (unkno wn) date) unknown) (unknown) (no (unknown) (unknown) VTE Prophylaxis: (units (unknown) date) Wells risk score unknown) 1.5.? Pharmacological VTE prophylaxis is (unknown) (no (unknown) (unknown) Vancomycin Trough (units (unknown) date) 9.4 L unknown) (unknown) (no (unknown) (unknown) Vital Signs (units (un known) date) unknown) (unknown) (no (unknown) (unknown) WBC 5.0 (units (unkno wn) date) unknown) (unknown) (no (unknown) (unknown) Wound care consulted (uni ts (unknown) date) due to compromised unknown) skin at site of hematoma left leg.? Has (unknown) (no (unknown) (unknown) [Embedded Image Not (unit s (unknown) date) Available] unknown) (unknown) (no (unknown) (unknown) admission (units (unkn own) date) unknown) (unknown) (no (unknown) (unknown) appears to be triple (uni ts (unknown) date) anti-platelet unknown) therapy, present on admission.? Causing (unknown) (no (unknown) (unknown) benefits in this (units (unknown) date) patient. unknown) (unknown) (no (unknown) (unknown) bilaterally.? No (units (unknown) date) pedal edema. unknown) (unknown) (no (unknown) (unknown) change treatment to (unit s (unknown) date) micafungin. This unknown) requires intravenous treatment. (unknown) (no (unknown) (unknown) compromised. (units (u nknown) date) unknown) (unknown) (no (unknown) (unknown) consult completed. (units (unknown) date) unknown) (unknown) (no (unknown) (unknown) contraindicated in (units (unknown) date) the setting of active unknown) bleeding will do SCD? (unknown) (no (unknown) (unknown) daily.? (units (unkno wn) date) Hydrochlorothiazide unknown) is not been ordered.? Torsemide has been added and (unknown) (no (unknown) (unknown) details: x 9 (uni ts (unknown) date) months unknown) (unknown) (no (unknown) (unknown) disease progression. (uni ts (unknown) date) unknown) (unknown) (no (unknown) (unknown) equivalent of the (units (unknown) date) dose of the torsemide unknown) plus furosemide. Therefore patient will (unknown) (no (unknown) (unknown) evaluate.? Consult (units (unknown) date) completed by wound unknown) care nurse.? Continue current treatment.? (unknown) (no (unknown) (unknown) follow-up with wound (uni ts (unknown) date) critical care clinical nurse specialist after unknown) discharge. (unknown) (no (unknown) (unknown) from 6.7-7.9 and (units (unknown) date) 20.8-24.5 unknown) respectively.? Today hemoglobin stable at 8.7.? This (unknown) (no (unknown) (unknown) further bleeding.? (units (unknown) date) Hemoglobin stable.? unknown) Restart aspirin and rivaroxaban tomorrow. (unknown) (no (unknown) (unknown) have no infection (units (unknown) date) and is proceeding unknown) with healing. (unknown) (no (unknown) (unknown) hematoma left leg.? (unit s (unknown) date) With skin compromise unknown) over the hematoma will have wound care (unknown) (no (unknown) (unknown) hold due to renal (units (unknown) date) function. unknown) (unknown) (no (unknown) (unknown) household members: (units (unknown) date) children unknown) (unknown) (no (unknown) (unknown) hydrochlorothiazide (unit s (unknown) date) and torsemide.? Will unknown) increase daily furosemide to 40 mg (unknown) (no (unknown) (unknown) infection.? This has (uni ts (unknown) date) been discontinued. unknown) (unknown) (no (unknown) (unknown) is dated furosemide (unit s (unknown) date) was discontinued and unknown) the torsemide dose increased to be (unknown) (no (unknown) (unknown) is midline. (units (un known) date) unknown) (unknown) (no (unknown) (unknown) is stable.? (units (un known) date) Rivaroxaban and unknown) aspirin had been re-initiated but aspirin was (unknown) (no (unknown) (unknown) marital status: (units (unknown) date) unknown) (unknown) (no (unknown) (unknown) mobilize more with (units (unknown) date) physical therapy.? No unknown) localized strength deficits. (unknown) (no (unknown) (unknown) not been evaluated (units (unknown) date) yet.? Wound care unknown) nurse has seen the patient.? Recommends (unknown) (no (unknown) (unknown) patient and aspirin (unit s (unknown) date) may be a trigger for unknown) further bleeding. (unknown) (no (unknown) (unknown) patient?s care is (units (unknown) date) appreciated.? This unknown) has been completed.? Wound care nurse (unknown) (no (unknown) (unknown) stopped today due to (uni ts (unknown) date) the fact at unknown) rivaroxaban is the most important in this (unknown) (no (unknown) (unknown) supple.? Neck nodes (unit s (unknown) date) are nontender unknown) nonpalpable.? Head is normocephalic.? Trachea (unknown) (no (unknown) (unknown) today; this time is (unit s (unknown) date) exclusive of unknown) procedural time. (unknown) (no (unknown) (unknown) treatment.? (units (un known) date) unknown) (unknown) (no (unknown) (unknown) wheezes or crackles. (uni ts (unknown) date) unknown) Result panel 101 (unknown) (no date) (unknown) (unknown) 0 /ul (unkn own) (unknown) (no date) (unknown) (unknown) 0.6 % (unkn own) (unknown) (no date) (unknown) (unknown) 100 /ul (unkn own) (unknown) (no date) (unknown) (unknown) 11.9 % (unkn own) (unknown) (no date) (unknown) (unknown) 178 x10 3/ul (unkn own) (unknown) (no date) (unknown) (unknown) 2.6 % (unkn own) (unknown) (no date) (unknown) (unknown) 23.3 % (unkn own) (unknown) (no date) (unknown) (unknown) 25.4 pg (unkn own) (unknown) (no date) (unknown) (unknown) 28.6 % (unkn own) (unknown) (no date) (unknown) (unknown) 3.63 x10 6/ul (unkn own) (unknown) (no date) (unknown) (unknown) 32.2 % (unkn own) (unknown) (no date) (unknown) (unknown) 3900 /ul (unkn own) (unknown) (no date) (unknown) (unknown) 400 /ul (unkn own) (unknown) (no date) (unknown) (unknown) 5.1 x10 3/ul (unkn own) (unknown) (no date) (unknown) (unknown) 600 /ul (unkn own) (unknown) (no date) (unknown) (unknown) 76.5 % (unkn own) (unknown) (no date) (unknown) (unknown) 78.9 fl (unkn own) (unknown) (no date) (unknown) (unknown) 8.4 % (unkn own) (unknown) (no date) (unknown) (unknown) 9.2 g/dl (unkn own) Result panel 102 (unknown) (no date) (unknown) (unknown) 1.96 mg/dl (unkn own) (unknown) (no date) (unknown) (unknown) 100 mmol/l (unkn own) (unknown) (no date) (unknown) (unknown) 115 mg/dl (unkn own) (unknown) (no date) (unknown) (unknown) 115 mg/dl (unkn own) (unknown) (no date) (unknown) (unknown) 134 mmol/l (unkn own) (unknown) (no date) (unknown) (unknown) 25 mmol/l (unkn own) (unknown) (no date) (unknown) (unknown) 3.9 mmol/l (unkn own) (unknown) (no date) (unknown) (unknown) 30.1 (units unknown) (unknown) (unknown) (no date) (unknown) (unknown) 35 ml/min (unkn own) (unknown) (no date) (unknown) (unknown) 35 ml/min (unkn own) (unknown) (no date) (unknown) (unknown) 59 mg/dl (unkn own) (unknown) (no date) (unknown) (unknown) 8.5 mg/dl (unkn own) Result panel 103 (unknown) (no date) (unknown) (unknown) 0 /ul (unkn own) (unknown) (no date) (unknown) (unknown) 0.6 % (unkn own) (unknown) (no date) (unknown) (unknown) 100 /ul (unkn own) (unknown) (no date) (unknown) (unknown) 11.9 % (unkn own) (unknown) (no date) (unknown) (unknown) 178 x10 3/ul (unkn own) (unknown) (no date) (unknown) (unknown) 2.6 % (unkn own) (unknown) (no date) (unknown) (unknown) 23.3 % (unkn own) (unknown) (no date) (unknown) (unknown) 25.4 pg (unkn own) (unknown) (no date) (unknown) (unknown) 28.6 % (unkn own) (unknown) (no date) (unknown) (unknown) 3 (units (unkn own) unknown) (unknown) (no date) (unknown) (unknown) 3.63 x10 6/ul (unkn own) (unknown) (no date) (unknown) (unknown) 32.2 % (unkn own) (unknown) (no date) (unknown) (unknown) 3900 /ul (unkn own) (unknown) (no date) (unknown) (unknown) 400 /ul (unkn own) (unknown) (no date) (unknown) (unknown) 5.1 x10 3/ul (unkn own) (unknown) (no date) (unknown) (unknown) 600 /ul (unkn own) (unknown) (no date) (unknown) (unknown) 76.5 % (unkn own) (unknown) (no date) (unknown) (unknown) 78.9 fl (unkn own) (unknown) (no date) (unknown) (unknown) 8.4 % (unkn own) (unknown) (no date) (unknown) (unknown) 9.2 g/dl (unkn own) (unknown) (no date) (unknown) (unknown) See Below (units (unk nown) unknown) Result panel 104 (unknown) (no (unknown) (unknown) (no value) (units (unk nown) date) unknown) (unknown) (no (unknown) (unknown) [id number] (units (unkno wn) date) unknown) (unknown) (no (unknown) (unknown) 02/01/22 (units (unkno wn) date) unknown) (unknown) (no (unknown) (unknown) [address] [place] [address] (units (unknown) date) unknown) (unknown) (no (unknown) (unknown) Accession Number: (units (unknown) date) [id number] unknown) (unknown) (no (unknown) (unknown) Age/Sex: 76 / M (units (unknown) date) Date of Service: unknown) (unknown) (no (unknown) (unknown) ELTON Jacobs (units ( unknown) date) [id number] unknown) (unknown) (no (unknown) (unknown) Approved by: (units (u nknown) date) Angel Escoto, unknown) JosseD. on 02/01/2022 at 10:53 (unknown) (no (unknown) (unknown) Bones: No (units (unkn own) date) fractures or unknown) dislocations. No suspicious bony lesions. (unknown) (no (unknown) (unknown) COMPARISON: (units (un known) date) [facility], unknown) CT, CT LE LT WO CON, 01/26/2022, 20:27. (unknown) (no (unknown) (unknown) : 1945 (units (unknown) date) Acct:[id number] unknown) (unknown) (no (unknown) (unknown) Dictated by: (units (u nknown) date) Angel Escoto, unknownMarilu Gonzalez on 02/01/2022 at 10:51 (unknown) (no (unknown) (unknown) Distal (units (unkno wn) date) unknown) (unknown) (no (unknown) (unknown) FINDINGS: (units (unkn own) date) Clothing artifact unknown) can be seen. (unknown) (no (unknown) (unknown) IMPRESSION: No (units (unknown) date) displaced unknown) fractures are seen on these plain films, including (unknown) (no (unknown) (unknown) INDICATIONS: left (units (unknown) date) heel pain after unknown) fall, check for fracture (unknown) (no (unknown) (unknown) [facility] (units (unknown) date) unknown) (unknown) (no (unknown) (unknown) Loc: [phone] (units ( unknown) date) unknown) (unknown) (no (unknown) (unknown) Ordering (units (unkno wn) date) Provider: unknown) Freddie Thomas D.O. (unknown) (no (unknown) (unknown) PROCEDURE: XR (units ( unknown) date) FOOT LT MIN 3V unknown) (unknown) (no (unknown) (unknown) Patient: (units (unkno wn) date) Osmel Baxter R unknown) MR#: [id number] (unknown) (no (unknown) (unknown) Procedure: XR (units ( unknown) date) foot LT min 3V unknown) (unknown) (no (unknown) (unknown) Signed (units (unkno wn) date) unknown) (unknown) (no (unknown) (unknown) Soft tissues: No (units (unknown) date) tibiotalar joint unknown) effusion. Achilles tendon appears normal. (unknown) (no (unknown) (unknown) TECHNIQUE: 3 (units (u nknown) date) views of the foot unknown) were acquired. (unknown) (no (unknown) (unknown) XRay Report (units (un known) date) unknown) (unknown) (no (unknown) (unknown) involving (units (unkn own) date) unknown) (unknown) (no (unknown) (unknown) noted. (units (unkno wn) date) unknown) (unknown) (no (unknown) (unknown) soft tissue (units (un known) date) postoperative unknown) clips are seen. Atherosclerotic calcification is (unknown) (no (unknown) (unknown) the calcaneus. (units (unknown) date) unknown) Result panel 105 (unknown) (no (unknown) (unknown) (no value) (units (unk nown) date) unknown) (unknown) (no (unknown) (unknown) (past 8 hours): (units (unknown) date) unknown) (unknown) (no (unknown) (unknown) -Cr downtrending, (units (unknown) date) continue to monitor unknown) (unknown) (no (unknown) (unknown) -Hold xarelto. Will (unit s (unknown) date) have patient discuss unknown) resuming it at later time. (unknown) (no (unknown) (unknown) -Patient noted left (unit s (unknown) date) heel pain with unknown) standing (unknown) (no (unknown) (unknown) -Tylenol PRN (units (u nknown) date) unknown) (unknown) (no (unknown) (unknown) -XR negative for (units (unknown) date) calcaneal fracture unknown) (unknown) (no (unknown) (unknown) 01/30/22 01/31/22 (units (unknown) date) 01/31/22 unknown) (unknown) (no (unknown) (unknown) 01/31/22 (units (unkno wn) date) unknown) (unknown) (no (unknown) (unknown) 02/01/22 09:08 (units (unknown) date) unknown) (unknown) (no (unknown) (unknown) 02/01/22 1639 (units ( unknown) date) unknown) (unknown) (no (unknown) (unknown) 1. Acute blood loss (unit s (unknown) date) anemia likely unknown) secondary to over coagulation with what (unknown) (no (unknown) (unknown) 14:21 01/31/22 (units (unknown) date) unknown) (unknown) (no (unknown) (unknown) 2. Acute kidney (units (unknown) date) injury likely unknown) secondary to blood loss anemia, present on (unknown) (no (unknown) (unknown) 20:10 05:12 05:12 (units (unknown) date) unknown) (unknown) (no (unknown) (unknown) 20:34 01/31/22 (units (unknown) date) unknown) (unknown) (no (unknown) (unknown) 20:44 (units (unkno wn) date) unknown) (unknown) (no (unknown) (unknown) 3. Acute (units (unkno wn) date) decompensated heart unknown) failure with reduced ejection fraction, present on (unknown) (no (unknown) (unknown) [id number] (units (unkno wn) date) unknown) (unknown) (no (unknown) (unknown) 4. Left medial knee (unit s (unknown) date) hematoma with unknown) possible overlying cellulitis, acute, present (unknown) (no (unknown) (unknown) 5. Coronary artery (units (unknown) date) disease, chronic unknown) (unknown) (no (unknown) (unknown) 6. Diabetes type 2, (unit s (unknown) date) appears to be well unknown) controlled (unknown) (no (unknown) (unknown) 7. Mobilization.? (units (unknown) date) Beginning to mobilize unknown) with physical therapy.? Continue with (unknown) (no (unknown) (unknown) 8. Urinary tract (units (unknown) date) infection with unknown) Renetta glabrata.?Asymptomati c so will dc (unknown) (no (unknown) (unknown) 9. Left heel pain, (units (unknown) date) present on admission unknown) (unknown) (no (unknown) (unknown) A1c is 6.5 (units (unk nown) date) unknown) (unknown) (no (unknown) (unknown) ALT 21 (units (unkno wn) date) unknown) (unknown) (no (unknown) (unknown) AST 36 (units (unkno wn) date) unknown) (unknown) (no (unknown) (unknown) Age/Sex: 76 / M (units (unknown) date) unknown) (unknown) (no (unknown) (unknown) Albumin 3.2 L (units ( unknown) date) unknown) (unknown) (no (unknown) (unknown) Albumin/Globulin (units (unknown) date) Ratio 0.8 L unknown) (unknown) (no (unknown) (unknown) Alkaline Phosphatase (uni ts (unknown) date) 99 unknown) (unknown) (no (unknown) (unknown) Anisocytosis 3+ H (units (unknown) date) unknown) (unknown) (no (unknown) (unknown) Anticoagulated (units (unknown) date) unknown) (unknown) (no (unknown) (unknown) Assessment + Plan (units (unknown) date) narrative: unknown) (unknown) (no (unknown) (unknown) Assessment + Plan (units (unknown) date) unknown) (unknown) (no (unknown) (unknown) Atrial fibrillation (unit s (unknown) date) unknown) (unknown) (no (unknown) (unknown) BUN 57 H (units (unkno wn) date) unknown) (unknown) (no (unknown) (unknown) BUN/Creatinine Ratio (uni ts (unknown) date) 28.5 H unknown) (unknown) (no (unknown) (unknown) Baso # (Auto) 0 (units (unknown) date) unknown) (unknown) (no (unknown) (unknown) Baso % (Auto) 0.4 (units (unknown) date) unknown) (unknown) (no (unknown) (unknown) Blood Pressure 94/70 (uni ts (unknown) date) 112/52 L 112/52 L unknown) (unknown) (no (unknown) (unknown) Calcium 8.3 L (units ( unknown) date) unknown) (unknown) (no (unknown) (unknown) Carb controlled diet (uni ts (unknown) date) with a.c. 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 (unknown) (no (unknown) (unknown) Cardiovascular:? 06/13 (uni ts (unknown) date) systolic murmur.? unknown) S1-S2.? Peripheral pulses equal (unknown) (no (unknown) (unknown) Chloride 99 (units (un known) date) unknown) (unknown) (no (unknown) (unknown) Closely monitor (units (unknown) date) renal function and unknown) hold nephrotoxic medications (Lisinopril).? (unknown) (no (unknown) (unknown) Code status: Full (units (unknown) date) code as discussed unknown) with the patient who identifies his son, (unknown) (no (unknown) (unknown) Consultants: (units (unknown) date) [facility] unknown) Surgery,?care and involvement in the patient?s (unknown) (no (unknown) (unknown) Continue carvedilol (unit s (unknown) date) 25 mg p.o. b.i.d., unknown) patient receives in 12.5 mg tablets (unknown) (no (unknown) (unknown) Continue home dose (units (unknown) date) of atorvastatin 40 mg unknown) p.o. at bedtime (unknown) (no (unknown) (unknown) Coronary artery (units (unknown) date) disease unknown) (unknown) (no (unknown) (unknown) Creatinine 2.00 H (units (unknown) date) unknown) (unknown) (no (unknown) (unknown) Critical Care time: (unit s (unknown) date) unknown) (unknown) (no (unknown) (unknown) : 1945 (units (unknown) date) Acct:[id number] unknown) (unknown) (no (unknown) (unknown) Date Patient Seen: (units (unknown) date) 02/01/22 unknown) (unknown) (no (unknown) (unknown) Date of Service: (units (unknown) date) 01/27/22 unknown) (unknown) (no (unknown) (unknown) Deep Vein (units (unkn own) date) Thrombosis/Pulmonary unknown) Embolism Present on Admission: No (unknown) (no (unknown) (unknown) Diabetes (units (unkno wn) date) unknown) (unknown) (no (unknown) (unknown) Diet: carb (units (unk nown) date) controlled diet unknown) (unknown) (no (unknown) (unknown) Dispo: Home with (unit s (unknown) date) PT on 02/02. unknown) (unknown) (no (unknown) (unknown) David his surrogate (units (unknown) date) and POA. unknown) (unknown) (no (unknown) (unknown) Dyslipidemia (units (u nknown) date) unknown) (unknown) (no (unknown) (unknown) Echo at [facility] (units (unknown) date) with EF 15%. In the unknown) ER, he received IV Lasix 80 mg in addition (unknown) (no (unknown) (unknown) Eos # (Auto) 200 (units (unknown) date) unknown) (unknown) (no (unknown) (unknown) Eos % (Auto) 3.6 (units (unknown) date) unknown) (unknown) (no (unknown) (unknown) Estimated GFR 34 L (units (unknown) date) unknown) (unknown) (no (unknown) (unknown) Exam Narrative: (units (unknown) date) unknown) (unknown) (no (unknown) (unknown) Exam (units (unkno wn) date) unknown) (unknown) (no (unknown) (unknown) Family History (units (unknown) date) (Reviewed 01/27/22 @ unknown) 07:53 by Tony Aceves MD) (unknown) (no (unknown) (unknown) Gastrointestinal:? (units (unknown) date) Bowel sounds normal.? unknown) Abdomen soft.? Nontender. (unknown) (no (unknown) (unknown) Globulin 3.8 (units (u nknown) date) unknown) (unknown) (no (unknown) (unknown) Glucose 90 (units (unk nown) date) unknown) (unknown) (no (unknown) (unknown) HEENT:? Pupils equal (uni ts (unknown) date) reaction to light.? unknown) Extraocular movements normal.? Neck is (unknown) (no (unknown) (unknown) Hct 26.4 L (units (unk nown) date) unknown) (unknown) (no (unknown) (unknown) He is currently (units (unknown) date) saline lock due to unknown) volume overload (unknown) (no (unknown) (unknown) He will receive his (unit s (unknown) date) home dose of Lantus unknown) 30 units b.i.d. Metformin remains on (unknown) (no (unknown) (unknown) Hgb 8.7 L (units (unkn own) date) unknown) (unknown) (no (unknown) (unknown) Hx of (units (unkno wn) date) cholecystectomy unknown) (unknown) (no (unknown) (unknown) Hypertension (units (u nknown) date) unknown) (unknown) (no (unknown) (unknown) I spent a total of (units (unknown) date) [] minutes of unknown) critical care time on this patient's care (unknown) (no (unknown) (unknown) Initially vancomycin (uni ts (unknown) date) that was largely unknown) prophylactic since no persistent signs of (unknown) (no (unknown) (unknown) Interval history: (units (unknown) date) unknown) (unknown) (no (unknown) (unknown) [facility] [address] (uni ts (unknown) date) [address] [place] [address] (unknown) (no (unknown) (unknown) Laboratory Results - (uni ts (unknown) date) last 24 hr unknown) (unknown) (no (unknown) (unknown) Labs (units (unkno wn) date) unknown) (unknown) (no (unknown) (unknown) Labs: (units (unkno wn) date) unknown) (unknown) (no (unknown) (unknown) Low-dose (units (unkno wn) date) correctional scale unknown) insulin and adjust as needed (unknown) (no (unknown) (unknown) Lymph # (Auto) 900 L (uni ts (unknown) date) unknown) (unknown) (no (unknown) (unknown) Lymph % (Auto) 17.9 (unit s (unknown) date) L unknown) (unknown) (no (unknown) (unknown) MCH 25.8 L (units (unk nown) date) unknown) (unknown) (no (unknown) (unknown) MCHC 32.8 (units (unkn own) date) unknown) (unknown) (no (unknown) (unknown) MCV 78.5 L (units (unk nown) date) unknown) (unknown) (no (unknown) (unknown) Medical History (units (unknown) date) (Reviewed 01/27/22 @ unknown) 07:53 by Tony Aceves MD) (unknown) (no (unknown) (unknown) Lajas # (Auto) 500 (units (unknown) date) unknown) (unknown) (no (unknown) (unknown) Lajas % (Auto) 10.1 (units (unknown) date) unknown) (unknown) (no (unknown) (unknown) Musculoskeletal:? (units (unknown) date) Able to move all unknown) extremities volitionally.? Beginning to (unknown) (no (unknown) (unknown) Narrative (units (unkn own) date) unknown) (unknown) (no (unknown) (unknown) Neuro:? Normal (units (unknown) date) sensation of all unknown) extremities.? Oriented x3. (unknown) (no (unknown) (unknown) Neut # (Auto) 3400 (units (unknown) date) unknown) (unknown) (no (unknown) (unknown) Neut % (Auto) 68.0 (units (unknown) date) unknown) (unknown) (no (unknown) (unknown) Objective (units (unkn own) date) unknown) (unknown) (no (unknown) (unknown) Oriented to time (units (unknown) date) place and person.? unknown) Appears in no acute medical distress. (unknown) (no (unknown) (unknown) Orthopedic surgery (units (unknown) date) has been consulted unknown) and seen the patient. (unknown) (no (unknown) (unknown) Other Adopted (units ( unknown) date) unknown) (unknown) (no (unknown) (unknown) Oxygen Delivery (units (unknown) date) Method Room Air unknown) (unknown) (no (unknown) (unknown) Oxygen Flow Rate 0 0 (uni ts (unknown) date) unknown) (unknown) (no (unknown) (unknown) Oxygen Flow Rate 0 (units (unknown) date) unknown) (unknown) (no (unknown) (unknown) PFSH (units (unkno wn) date) unknown) (unknown) (no (unknown) (unknown) Patient is currently (uni ts (unknown) date) recovering from unknown) biventricular heart catheterization. Plan (unknown) (no (unknown) (unknown) Patient is?inpatient (uni ts (unknown) date) service due to the unknown) severity of disease, risks of further (unknown) (no (unknown) (unknown) Patient received 2 (units (unknown) date) units PRBC in the unknown) emergency department increasing his H+H (unknown) (no (unknown) (unknown) Patient states his (units (unknown) date) left knee continues unknown) to have pain with movement. States he can (unknown) (no (unknown) (unknown) Patient to follow-up (uni ts (unknown) date) with wound care unknown) specialist as an outpatient.? Appears to (unknown) (no (unknown) (unknown) Patient was fluid (units (unknown) date) resuscitated in the unknown) emergency department 2 L (unknown) (no (unknown) (unknown) Patient's proBNP was (uni ts (unknown) date) almost 7200.? unknown) Improved yesterday at 5570. (unknown) (no (unknown) (unknown) Patient's (units (unkn own) date) rivaroxaban, aspirin unknown) and clopidogrel are being held.? No evidence of (unknown) (no (unknown) (unknown) Patient: (units (unkno wn) date) Osmel Baxter MR#: unknown) M000 (unknown) (no (unknown) (unknown) Plt Count 181 (units ( unknown) date) unknown) (unknown) (no (unknown) (unknown) Potassium 3.7 (units ( unknown) date) unknown) (unknown) (no (unknown) (unknown) Progress Note (units ( unknown) date) unknown) (unknown) (no (unknown) (unknown) Provider: (units (unkn own) date) Freddie Thomas D.O. unknown) (unknown) (no (unknown) (unknown) Psych:? Normal mood (unit s (unknown) date) and affect. unknown) (unknown) (no (unknown) (unknown) Pulse Oximetry 97 97 (uni ts (unknown) date) unknown) (unknown) (no (unknown) (unknown) Pulse Rate 65 61 61 (unit s (unknown) date) unknown) (unknown) (no (unknown) (unknown) Quality (units (unkno wn) date) unknown) (unknown) (no (unknown) (unknown) RBC 3.37 L (units (unk nown) date) unknown) (unknown) (no (unknown) (unknown) RBC Morphology See (units (unknown) date) below unknown) (unknown) (no (unknown) (unknown) RDW 23.7 H (units (unk nown) date) unknown) (unknown) (no (unknown) (unknown) Respiratory Rate 16 (unit s (unknown) date) 16 unknown) (unknown) (no (unknown) (unknown) Respiratory:? 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 Abrasions (units (unknown) date) left foot.? Wound unknown) left knee with hematoma currently dressed.? (unknown) (no (unknown) (unknown) Sleep apnea (units (un known) date) unknown) (unknown) (no (unknown) (unknown) Smoking Status: (units (unknown) date) Former smoker unknown) (unknown) (no (unknown) (unknown) Social History (units (unknown) date) (Updated 09/25/18 @ unknown) 11:17 by Telma Dickey DO) (unknown) (no (unknown) (unknown) Sodium 132 L (units (u nknown) date) unknown) (unknown) (no (unknown) (unknown) Soft tissues (units (u nknown) date) abrasions right arm unknown) dressed. (unknown) (no (unknown) (unknown) Subjective (units (unk nown) date) unknown) (unknown) (no (unknown) (unknown) Surgical History (units (unknown) date) (Reviewed 01/27/22 @ unknown) 07:53 by Tony Aceves MD) (unknown) (no (unknown) (unknown) Temperature 97.2 F L (uni ts (unknown) date) 97.1 F L unknown) (unknown) (no (unknown) (unknown) Therefore patient (units (unknown) date) will be on new mg unknown) b.i.d. of torsemide. Torsemide was chosen (unknown) (no (unknown) (unknown) Time Patient Seen: (units (unknown) date) 11:00 unknown) (unknown) (no (unknown) (unknown) Time Spent With (units (unknown) date) Patient unknown) (unknown) (no (unknown) (unknown) Total Bilirubin 1.1 (unit s (unknown) date) unknown) (unknown) (no (unknown) (unknown) Total Protein 7.0 (units (unknown) date) unknown) (unknown) (no (unknown) (unknown) VTE Prophylaxis: (units (unknown) date) Wells risk score unknown) 1.5.? Pharmacological VTE prophylaxis is (unknown) (no (unknown) (unknown) VTE (units (unkno wn) date) unknown) (unknown) (no (unknown) (unknown) Vancomycin Trough (units (unknown) date) 9.4 L unknown) (unknown) (no (unknown) (unknown) Vital Signs (units (un known) date) unknown) (unknown) (no (unknown) (unknown) WBC 5.0 (units (unkno wn) date) unknown) (unknown) (no (unknown) (unknown) Wound care consulted (uni ts (unknown) date) due to compromised unknown) skin at site of hematoma left leg.? Has (unknown) (no (unknown) (unknown) Xarelto was held by (unit s (unknown) date) overnight doc. unknown) (unknown) (no (unknown) (unknown) [Embedded Image Not (unit s (unknown) date) Available] unknown) (unknown) (no (unknown) (unknown) admission (units (unkn own) date) unknown) (unknown) (no (unknown) (unknown) appears to be triple (uni ts (unknown) date) anti-platelet unknown) therapy, present on admission.? Causing (unknown) (no (unknown) (unknown) bilaterally.? No (units (unknown) date) pedal edema. unknown) (unknown) (no (unknown) (unknown) care is (units (unkno wn) date) appreciated.? This unknown) has been completed.? Wound care nurse consult (unknown) (no (unknown) (unknown) completed. (units (unk nown) date) unknown) (unknown) (no (unknown) (unknown) contraindicated in (units (unknown) date) the setting of active unknown) bleeding will do SCD? (unknown) (no (unknown) (unknown) details: x 9 (uni ts (unknown) date) months unknown) (unknown) (no (unknown) (unknown) disease progression. (uni ts (unknown) date) unknown) (unknown) (no (unknown) (unknown) due to the mortality (uni ts (unknown) date) benefits in this unknown) patient. (unknown) (no (unknown) (unknown) evaluate.? Consult (units (unknown) date) completed by wound unknown) care nurse.? Continue current treatment.? (unknown) (no (unknown) (unknown) follow-up with wound (uni ts (unknown) date) critical care clinical nurse specialist after unknown) discharge. (unknown) (no (unknown) (unknown) from 6.7-7.9 and (units (unknown) date) 20.8-24.5 unknown) respectively.? Hemoglobin now stable at 8-9's.? (unknown) (no (unknown) (unknown) furosemide to 40 mg (unit s (unknown) date) daily.? unknown) Hydrochlorothiazide is not been ordered.? Torsemide (unknown) (no (unknown) (unknown) further bleeding.? (units (unknown) date) Hemoglobin stable.? unknown) Restart aspirin and rivaroxaban tomorrow. (unknown) (no (unknown) (unknown) has been added and (units (unknown) date) is dated furosemide unknown) was discontinued and the torsemide dose (unknown) (no (unknown) (unknown) have no infection (units (unknown) date) and is proceeding unknown) with healing. (unknown) (no (unknown) (unknown) hematoma left leg.? (unit s (unknown) date) With skin compromise unknown) over the hematoma will have wound care (unknown) (no (unknown) (unknown) hold due to renal (units (unknown) date) function. unknown) (unknown) (no (unknown) (unknown) household members: (units (unknown) date) children unknown) (unknown) (no (unknown) (unknown) increased to be (units (unknown) date) equivalent of the unknown) dose of the torsemide plus furosemide. (unknown) (no (unknown) (unknown) infection.? This has (uni ts (unknown) date) been discontinued. unknown) (unknown) (no (unknown) (unknown) is midline. (units (un known) date) unknown) (unknown) (no (unknown) (unknown) marital status: (units (unknown) date) unknown) (unknown) (no (unknown) (unknown) micofungin. (units (un known) date) unknown) (unknown) (no (unknown) (unknown) mobilize more with (units (unknown) date) physical therapy.? No unknown) localized strength deficits. (unknown) (no (unknown) (unknown) not been evaluated (units (unknown) date) yet.? Wound care unknown) nurse has seen the patient.? Recommends (unknown) (no (unknown) (unknown) on admission (units (u nknown) date) unknown) (unknown) (no (unknown) (unknown) supple.? Neck nodes (unit s (unknown) date) are nontender unknown) nonpalpable.? Head is normocephalic.? Trachea (unknown) (no (unknown) (unknown) to his home oral dose (uni ts (unknown) date) of unknown) hydrochlorothiazide and torsemide.? Will increase daily (unknown) (no (unknown) (unknown) today; this time is (unit s (unknown) date) exclusive of unknown) procedural time. (unknown) (no (unknown) (unknown) treatment.? (units (un known) date) unknown) (unknown) (no (unknown) (unknown) walk to to the (units (unknown) date) bathroom and back but unknown) that his left heel has alot of pain with (unknown) (no (unknown) (unknown) was for ICD (units (un known) date) placement before he unknown) was admitted but will have to be at later date. (unknown) (no (unknown) (unknown) weightbearing. Had a (uni ts (unknown) date) nosebleed overnight unknown) which finally stopped after 30min. His (unknown) (no (unknown) (unknown) wheezes or crackles. (uni ts (unknown) date) unknown) Result panel 106 (unknown) (no date) (unknown) (unknown) 0 /ul (unkn own) (unknown) (no date) (unknown) (unknown) 0.8 % (unkn own) (unknown) (no date) (unknown) (unknown) 16.5 % (unkn own) (unknown) (no date) (unknown) (unknown) 190 x10 3/ul (unkn own) (unknown) (no date) (unknown) (unknown) 200 /ul (unkn own) (unknown) (no date) (unknown) (unknown) 23.1 % (unkn own) (unknown) (no date) (unknown) (unknown) 25.6 pg (unkn own) (unknown) (no date) (unknown) (unknown) 27.2 % (unkn own) (unknown) (no date) (unknown) (unknown) 3.4 % (unkn own) (unknown) (no date) (unknown) (unknown) 3.48 x10 6/ul (unkn own) (unknown) (no date) (unknown) (unknown) 32.7 % (unkn own) (unknown) (no date) (unknown) (unknown) 3600 /ul (unkn own) (unknown) (no date) (unknown) (unknown) 5.1 x10 3/ul (unkn own) (unknown) (no date) (unknown) (unknown) 500 /ul (unkn own) (unknown) (no date) (unknown) (unknown) 69.7 % (unkn own) (unknown) (no date) (unknown) (unknown) 78.1 fl (unkn own) (unknown) (no date) (unknown) (unknown) 8.9 g/dl (unkn own) (unknown) (no date) (unknown) (unknown) 800 /ul (unkn own) (unknown) (no date) (unknown) (unknown) 9.6 % (unkn own) Result panel 107 (unknown) (no date) (unknown) (unknown) 1.77 mg/dl (unkn own) (unknown) (no date) (unknown) (unknown) 100 mmol/l (unkn own) (unknown) (no date) (unknown) (unknown) 122 mg/dl (unkn own) (unknown) (no date) (unknown) (unknown) 122 mg/dl (unkn own) (unknown) (no date) (unknown) (unknown) 134 mmol/l (unkn own) (unknown) (no date) (unknown) (unknown) 25 mmol/l (unkn own) (unknown) (no date) (unknown) (unknown) 3.9 mmol/l (unkn own) (unknown) (no date) (unknown) (unknown) 33.3 (units unknown) (unknown) (unknown) (no date) (unknown) (unknown) 39 ml/min (unkn own) (unknown) (no date) (unknown) (unknown) 39 ml/min (unkn own) (unknown) (no date) (unknown) (unknown) 59 mg/dl (unkn own) (unknown) (no date) (unknown) (unknown) 8.3 mg/dl (unkn own) Result panel 108 (unknown) (no date) (unknown) (unknown) 0 /ul (unkn own) (unknown) (no date) (unknown) (unknown) 0.8 % (unkn own) (unknown) (no date) (unknown) (unknown) 1 (units (unkn own) unknown) (unknown) (no date) (unknown) (unknown) 16.5 % (unkn own) (unknown) (no date) (unknown) (unknown) 190 x10 3/ul (unkn own) (unknown) (no date) (unknown) (unknown) 200 /ul (unkn own) (unknown) (no date) (unknown) (unknown) 23.1 % (unkn own) (unknown) (no date) (unknown) (unknown) 25.6 pg (unkn own) (unknown) (no date) (unknown) (unknown) 27.2 % (unkn own) (unknown) (no date) (unknown) (unknown) 3 (units (unkn own) unknown) (unknown) (no date) (unknown) (unknown) 3.4 % (unkn own) (unknown) (no date) (unknown) (unknown) 3.48 x10 6/ul (unkn own) (unknown) (no date) (unknown) (unknown) 32.7 % (unkn own) (unknown) (no date) (unknown) (unknown) 3600 /ul (unkn own) (unknown) (no date) (unknown) (unknown) 5.1 x10 3/ul (unkn own) (unknown) (no date) (unknown) (unknown) 500 /ul (unkn own) (unknown) (no date) (unknown) (unknown) 69.7 % (unkn own) (unknown) (no date) (unknown) (unknown) 78.1 fl (unkn own) (unknown) (no date) (unknown) (unknown) 8.9 g/dl (unkn own) (unknown) (no date) (unknown) (unknown) 800 /ul (unkn own) (unknown) (no date) (unknown) (unknown) 9.6 % (unkn own) (unknown) (no date) (unknown) (unknown) See Below (units (unk nown) unknown) Result panel 109 (unknown) (no (unknown) (unknown) (no value) (units (unk nown) date) unknown) (unknown) (no (unknown) (unknown) (past 8 hours): (units (unknown) date) unknown) (unknown) (no (unknown) (unknown) -Cr downtrending, (units (unknown) date) continue to monitor unknown) (unknown) (no (unknown) (unknown) -Hold xarelto. Will (unit s (unknown) date) have patient discuss unknown) resuming it at later time. (unknown) (no (unknown) (unknown) -Patient noted left (unit s (unknown) date) heel pain with unknown) standing (unknown) (no (unknown) (unknown) -Tylenol PRN (units (u nknown) date) unknown) (unknown) (no (unknown) (unknown) -XR negative for (units (unknown) date) calcaneal fracture unknown) (unknown) (no (unknown) (unknown) 0.25 mg SUBCUT QWEEK (uni ts (unknown) date) unknown) (unknown) (no (unknown) (unknown) 04:55 (units (unkno wn) date) unknown) (unknown) (no (unknown) (unknown) 05:00 (units (unkno wn) date) unknown) (unknown) (no (unknown) (unknown) 01/27/22 00:50 (units (unknown) date) unknown) (unknown) (no (unknown) (unknown) 01/27/22 01:02 (units (unknown) date) unknown) (unknown) (no (unknown) (unknown) 01/27/22 01:09 (units (unknown) date) unknown) (unknown) (no (unknown) (unknown) 01/27/22 05:21 (units (unknown) date) unknown) (unknown) (no (unknown) (unknown) 01/27/22 10:13 (units (unknown) date) unknown) (unknown) (no (unknown) (unknown) 02/01/22 02/01/22 (units (unknown) date) 02/02/22 unknown) (unknown) (no (unknown) (unknown) 02/02/22 04:55 (units (unknown) date) unknown) (unknown) (no (unknown) (unknown) 02/02/22 (units (unkno wn) date) unknown) (unknown) (no (unknown) (unknown) 09:08 09:08 04:55 (units (unknown) date) unknown) (unknown) (no (unknown) (unknown) 1 tab PO BEDTIME (units (unknown) date) unknown) (unknown) (no (unknown) (unknown) 1-2 tabs by mouth q (unit s (unknown) date) 6 hours as needed for unknown) pain. (unknown) (no (unknown) (unknown) 1. Acute blood loss (unit s (unknown) date) anemia likely unknown) secondary to over coagulation with what (unknown) (no (unknown) (unknown) 10 mg PO BID (units (u nknown) date) unknown) (unknown) (no (unknown) (unknown) 10 mg PO TID (units (u nknown) date) unknown) (unknown) (no (unknown) (unknown) 100 mg PO BID (units ( unknown) date) unknown) (unknown) (no (unknown) (unknown) 100 unit SQ DAILY (units (unknown) date) Qty: 0 unknown) (unknown) (no (unknown) (unknown) 12.5 mg PO BID (units (unknown) date) unknown) (unknown) (no (unknown) (unknown) 15 mg PO DAILY (units (unknown) date) unknown) (unknown) (no (unknown) (unknown) 2,000 mg PO DAILY (units (unknown) date) unknown) (unknown) (no (unknown) (unknown) 2,000 units PO DAILY (uni ts (unknown) date) Qty: 0 unknown) (unknown) (no (unknown) (unknown) 2. Acute kidney (units (unknown) date) injury likely unknown) secondary to blood loss anemia, present on (unknown) (no (unknown) (unknown) 2.5 mg PO QDAY Qty: (unit s (unknown) date) 0 unknown) (unknown) (no (unknown) (unknown) 2.5 mg, Xarelto 15 (units (unknown) date) mg, allopurinol, unknown) amiodarone 200 mg, atorvastatin 40 mg, (unknown) (no (unknown) (unknown) 20 mg PO BID (units (u nknown) date) unknown) (unknown) (no (unknown) (unknown) 3. Acute (units (unkno wn) date) decompensated heart unknown) failure with reduced ejection fraction, present on (unknown) (no (unknown) (unknown) 3.18 with an EGFR of (uni ts (unknown) date) 19 glucose 130 unknown) hemoglobin A1c is 6.5 total bilirubin 1.5 (unknown) (no (unknown) (unknown) [id number] (units (unkno wn) date) unknown) (unknown) (no (unknown) (unknown) 4. Left medial knee (unit s (unknown) date) hematoma with unknown) possible overlying cellulitis, acute, present (unknown) (no (unknown) (unknown) 40 mg PO DAILY Qty: (unit s (unknown) date) 0 unknown) (unknown) (no (unknown) (unknown) 40 mg PO DAILY (units (unknown) date) unknown) (unknown) (no (unknown) (unknown) 5 mg PO Q6H PRN (units (unknown) date) (Reason: pain) unknown) (unknown) (no (unknown) (unknown) 5. Coronary artery (units (unknown) date) disease, chronic unknown) (unknown) (no (unknown) (unknown) 50 mg PO QDAY Qty: 0 (uni ts (unknown) date) unknown) (unknown) (no (unknown) (unknown) 6. Diabetes type 2, (unit s (unknown) date) appears to be well unknown) controlled (unknown) (no (unknown) (unknown) 7. Mobilization.? (units (unknown) date) Beginning to mobilize unknown) with physical therapy.? Continue with (unknown) (no (unknown) (unknown) 8. Urinary tract (units (unknown) date) infection with unknown) Renetta glabrata.?Asymptomati c so will dc (unknown) (no (unknown) (unknown) 81 mg PO QDAY Qty: 0 (uni ts (unknown) date) unknown) (unknown) (no (unknown) (unknown) 9. Left heel pain, (units (unknown) date) present on admission unknown) (unknown) (no (unknown) (unknown) A1c is 6.5 (units (unk nown) date) unknown) (unknown) (no (unknown) (unknown) Age/Sex: 76 / M (units (unknown) date) unknown) (unknown) (no (unknown) (unknown) [place] but has no (uni ts (unknown) date) problems being here.? unknown) He stated that he does remember (unknown) (no (unknown) (unknown) Anisocytosis 3+ H 3+ (uni ts (unknown) date) H unknown) (unknown) (no (unknown) (unknown) Anisocytosis (units (u nknown) date) unknown) (unknown) (no (unknown) (unknown) Anticoagulated (units (unknown) date) unknown) (unknown) (no (unknown) (unknown) Atrial fibrillation (unit s (unknown) date) unknown) (unknown) (no (unknown) (unknown) January 20 or (units (unknown) date) .? His unknown) anticoagulation had been stopped and he had at (unknown) (no (unknown) (unknown) BUN 59 H (units (unkno wn) date) unknown) (unknown) (no (unknown) (unknown) BUN/Creatinine Ratio (uni ts (unknown) date) 30.1 H unknown) (unknown) (no (unknown) (unknown) BUN/Creatinine Ratio (uni ts (unknown) date) 33.3 H unknown) (unknown) (no (unknown) (unknown) Baso # (Auto) 0 0 (units (unknown) date) unknown) (unknown) (no (unknown) (unknown) Baso # (Auto) (units ( unknown) date) unknown) (unknown) (no (unknown) (unknown) Baso % (Auto) 0.6 (units (unknown) date) 0.8 unknown) (unknown) (no (unknown) (unknown) Baso % (Auto) (units ( unknown) date) unknown) (unknown) (no (unknown) (unknown) Blood Pressure (units (unknown) date) 126/50 L unknown) (unknown) (no (unknown) (unknown) Calcium 8.3 L (units ( unknown) date) unknown) (unknown) (no (unknown) (unknown) Calcium 8.5 (units (un known) date) unknown) (unknown) (no (unknown) (unknown) Carb controlled diet (uni ts (unknown) date) with a.c. 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 (unknown) (no (unknown) (unknown) Cardiovascular:? 06/13 (uni ts (unknown) date) systolic murmur.? unknown) S1-S2.? Peripheral pulses equal (unknown) (no (unknown) (unknown) Chief complaint: (units (unknown) date) Dementia unknown) (unknown) (no (unknown) (unknown) Chloride 100 (units (u nknown) date) unknown) (unknown) (no (unknown) (unknown) Closely monitor (units (unknown) date) renal function and unknown) hold nephrotoxic medications (Lisinopril).? (unknown) (no (unknown) (unknown) Comment: Home safety (uni ts (unknown) date) issue unknown) (unknown) (no (unknown) (unknown) Comment: (units (unkno wn) date) unknown) (unknown) (no (unknown) (unknown) Consult to Inpatient (uni ts (unknown) date) Wound Care Nurse unknown) Routine (unknown) (no (unknown) (unknown) Consult to Physical (unit s (unknown) date) Therapy Evaluate + unknown) Treat (unknown) (no (unknown) (unknown) Consult to Physician (uni ts (unknown) date) Routine unknown) (unknown) (no (unknown) (unknown) Consulting Provider: (uni ts (unknown) date) Tony Aceves unknown) (unknown) (no (unknown) (unknown) Consults: (units (unkn own) date) unknown) (unknown) (no (unknown) (unknown) Continue carvedilol (unit s (unknown) date) 25 mg p.o. b.i.d., unknown) patient receives in 12.5 mg tablets (unknown) (no (unknown) (unknown) Continue home dose (units (unknown) date) of atorvastatin 40 mg unknown) p.o. at bedtime (unknown) (no (unknown) (unknown) Coronary artery (units (unknown) date) disease unknown) (unknown) (no (unknown) (unknown) Creatinine 1.77 H (units (unknown) date) unknown) (unknown) (no (unknown) (unknown) Creatinine 1.96 H (units (unknown) date) unknown) (unknown) (no (unknown) (unknown) Currently his (units ( unknown) date) hemoglobin and unknown) hematocrit was improved to 7.9 in 24.5 (unknown) (no (unknown) (unknown) : 1945 (units (unknown) date) Acct:[id number] unknown) (unknown) (no (unknown) (unknown) Date of Service: (units (unknown) date) 01/27/22 unknown) (unknown) (no (unknown) (unknown) Date of admission: (units (unknown) date) unknown) (unknown) (no (unknown) (unknown) Deep Vein (units (unkn own) date) Thrombosis/Pulmonary unknown) Embolism Present on Admission: No (unknown) (no (unknown) (unknown) Diabetes (units (unkno wn) date) unknown) (unknown) (no (unknown) (unknown) Discharge Data (units (unknown) date) unknown) (unknown) (no (unknown) (unknown) Discharge Diagnosis: (uni ts (unknown) date) unknown) (unknown) (no (unknown) (unknown) Discharge Plan (units (unknown) date) unknown) (unknown) (no (unknown) (unknown) Discharge Providers (unit s (unknown) date) unknown) (unknown) (no (unknown) (unknown) Discharge Summary (units (unknown) date) unknown) (unknown) (no (unknown) (unknown) Discharge orders + (units (unknown) date) Medications unknown) (unknown) (no (unknown) (unknown) Discharge provider: (unit s (unknown) date) unknown) (unknown) (no (unknown) (unknown) Doctor (units (unkno wn) date) MD Fernie unknown) (unknown) (no (unknown) (unknown) Dyslipidemia (units (u nknown) date) unknown) (unknown) (no (unknown) (unknown) Echo at [facility] (units (unknown) date) with EF 15%. In the unknown) ER, he received IV Lasix 80 mg in addition (unknown) (no (unknown) (unknown) Eos # (Auto) 100 200 (uni ts (unknown) date) unknown) (unknown) (no (unknown) (unknown) Eos # (Auto) (units (u nknown) date) unknown) (unknown) (no (unknown) (unknown) Eos % (Auto) 2.6 3.4 (uni ts (unknown) date) unknown) (unknown) (no (unknown) (unknown) Eos % (Auto) (units (u nknown) date) unknown) (unknown) (no (unknown) (unknown) Estimated GFR 35 L (units (unknown) date) unknown) (unknown) (no (unknown) (unknown) Estimated GFR 39 L (units (unknown) date) unknown) (unknown) (no (unknown) (unknown) Exam Narrative: (units (unknown) date) unknown) (unknown) (no (unknown) (unknown) Exam (units (unkno wn) date) unknown) (unknown) (no (unknown) (unknown) Family History (units (unknown) date) (Reviewed 01/27/22 @ unknown) 07:53 by Tony Aceves MD) (unknown) (no (unknown) (unknown) Follow up/Referrals: (uni ts (unknown) date) unknown) (unknown) (no (unknown) (unknown) Gastrointestinal:? (units (unknown) date) Bowel sounds normal.? unknown) Abdomen soft.? Nontender. (unknown) (no (unknown) (unknown) Glucose 115 H (units ( unknown) date) unknown) (unknown) (no (unknown) (unknown) Glucose 122 H (units ( unknown) date) unknown) (unknown) (no (unknown) (unknown) HEENT:? Pupils equal (uni ts (unknown) date) reaction to light.? unknown) Extraocular movements normal.? Neck is (unknown) (no (unknown) (unknown) Osmel Baxter is a (units (unknown) date) 76-year-old male unknown) status post CABG approximately 20 years ago, (unknown) (no (unknown) (unknown) Has provider been (units (unknown) date) notified: No unknown) (unknown) (no (unknown) (unknown) Has provider been (units (unknown) date) notified: Yes unknown) (unknown) (no (unknown) (unknown) Hct 28.6 L 27.2 L (units (unknown) date) unknown) (unknown) (no (unknown) (unknown) Hct (units (unkno wn) date) unknown) (unknown) (no (unknown) (unknown) He is afebrile, (units (unknown) date) blood pressure unknown) 108/46, heart rate 58, respiratory rate 12, (unknown) (no (unknown) (unknown) He is currently (units (unknown) date) saline lock due to unknown) volume overload (unknown) (no (unknown) (unknown) [facility] with decompensated (unknown) (no (unknown) (unknown) He will receive his (unit s (unknown) date) home dose of Lantus unknown) 30 units b.i.d. Metformin remains on (unknown) (no (unknown) (unknown) Hgb 9.2 L 8.9 L (units (unknown) date) unknown) (unknown) (no (unknown) (unknown) Hgb (units (unkno wn) date) unknown) (unknown) (no (unknown) (unknown) History of Present (units (unknown) date) Illness unknown) (unknown) (no (unknown) (unknown) Hospital Course (units (unknown) date) unknown) (unknown) (no (unknown) (unknown) Hx of (units (unkno wn) date) cholecystectomy unknown) (unknown) (no (unknown) (unknown) Hypertension (units (u nknown) date) unknown) (unknown) (no (unknown) (unknown) Hypochromasia 1+ H (units (unknown) date) unknown) (unknown) (no (unknown) (unknown) Hypochromasia (units ( unknown) date) unknown) (unknown) (no (unknown) (unknown) Initially vancomycin (uni ts (unknown) date) that was largely unknown) prophylactic since no persistent signs of (unknown) (no (unknown) (unknown) [facility] [address] (uni ts (unknown) date) [address] unknown) [place] [address] (unknown) (no (unknown) (unknown) Laboratory Results - (uni ts (unknown) date) last 24 hr unknown) (unknown) (no (unknown) (unknown) Labs (units (unkno wn) date) unknown) (unknown) (no (unknown) (unknown) Labs: (units (unkno wn) date) unknown) (unknown) (no (unknown) (unknown) Low-dose (units (unkno wn) date) correctional scale unknown) insulin and adjust as needed (unknown) (no (unknown) (unknown) Lymph # (Auto) 600 L (uni ts (unknown) date) 800 L unknown) (unknown) (no (unknown) (unknown) Lymph # (Auto) (units (unknown) date) unknown) (unknown) (no (unknown) (unknown) Lymph % (Auto) 11.9 (unit s (unknown) date) L 16.5 L unknown) (unknown) (no (unknown) (unknown) Lymph % (Auto) (units (unknown) date) unknown) (unknown) (no (unknown) (unknown) MCH 25.4 L 25.6 L (units (unknown) date) unknown) (unknown) (no (unknown) (unknown) MCH (units (unkno wn) date) unknown) (unknown) (no (unknown) (unknown) MCHC 32.2 32.7 (units (unknown) date) unknown) (unknown) (no (unknown) (unknown) MCHC (units (unkno wn) date) unknown) (unknown) (no (unknown) (unknown) MCV 78.9 L 78.1 L (units (unknown) date) unknown) (unknown) (no (unknown) (unknown) MCV (units (unkno wn) date) unknown) (unknown) (no (unknown) (unknown) Freddie Thomas DO (unit s (unknown) date) unknown) (unknown) (no (unknown) (unknown) Medical History (units (unknown) date) (Reviewed 01/27/22 @ unknown) 07:53 by Tony Aceves MD) (unknown) (no (unknown) (unknown) Miscellaneous,Doctor (uni ts (unknown) date) , MD [Primary Care unknown) Provider] (unknown) (no (unknown) (unknown) Lajas # (Auto) 400 (units (unknown) date) 500 unknown) (unknown) (no (unknown) (unknown) Lajas # (Auto) (units ( unknown) date) unknown) (unknown) (no (unknown) (unknown) Lajas % (Auto) 8.4 (units (unknown) date) 9.6 unknown) (unknown) (no (unknown) (unknown) Lajas % (Auto) (units ( unknown) date) unknown) (unknown) (no (unknown) (unknown) Musculoskeletal:? (units (unknown) date) Able to move all unknown) extremities volitionally.? Beginning to (unknown) (no (unknown) (unknown) Narrative (units (unkn own) date) unknown) (unknown) (no (unknown) (unknown) Narrative: (units (unk nown) date) unknown) (unknown) (no (unknown) (unknown) Neuro:? Normal (units (unknown) date) sensation of all unknown) extremities.? Oriented x3. (unknown) (no (unknown) (unknown) Neut # (Auto) 3900 (units (unknown) date) 3600 unknown) (unknown) (no (unknown) (unknown) Neut # (Auto) (units ( unknown) date) unknown) (unknown) (no (unknown) (unknown) Neut % (Auto) 76.5 H (uni ts (unknown) date) 69.7 unknown) (unknown) (no (unknown) (unknown) Neut % (Auto) (units ( unknown) date) unknown) (unknown) (no (unknown) (unknown) No Action (units (unkn own) date) unknown) (unknown) (no (unknown) (unknown) Objective (units (unkn own) date) unknown) (unknown) (no (unknown) (unknown) Oriented to time (units (unknown) date) place and person.? unknown) Appears in no acute medical distress. (unknown) (no (unknown) (unknown) Orthopedic surgery (units (unknown) date) has been consulted unknown) and seen the patient. (unknown) (no (unknown) (unknown) Other Adopted (units ( unknown) date) unknown) (unknown) (no (unknown) (unknown) Ovalocytes 1+ H (units (unknown) date) unknown) (unknown) (no (unknown) (unknown) Ovalocytes (units (unk nown) date) unknown) (unknown) (no (unknown) (unknown) Oxygen Delivery (units (unknown) date) Method Room Air unknown) (unknown) (no (unknown) (unknown) Oxygen Flow Rate 0 (units (unknown) date) unknown) (unknown) (no (unknown) (unknown) Ozempic 0.25 mg or (units (unknown) date) 0.5 mg(2 mg/1.5 mL) unknown) Pen Injector (unknown) (no (unknown) (unknown) PCR is negative, (units (unknown) date) blood type is A unknown) negative. (unknown) (no (unknown) (unknown) PFSH (units (unkno wn) date) unknown) (unknown) (no (unknown) (unknown) Patient does not (units (unknown) date) remember the details unknown) of what brought him here, thought he was (unknown) (no (unknown) (unknown) Patient has a remote (unit s (unknown) date) history of undergoing unknown) a CABG he states about 20 years ago.? (unknown) (no (unknown) (unknown) Patient is currently (uni ts (unknown) date) recovering from unknown) biventricular heart catheterization. Plan (unknown) (no (unknown) (unknown) Patient received 2 (units (unknown) date) units PRBC in the unknown) emergency department increasing his H+H (unknown) (no (unknown) (unknown) Patient to follow-up (uni ts (unknown) date) with wound care unknown) specialist as an outpatient.? Appears to (unknown) (no (unknown) (unknown) Patient was fluid (units (unknown) date) resuscitated in the unknown) emergency department 2 L (unknown) (no (unknown) (unknown) Patient's proBNP was (uni ts (unknown) date) almost 7200.? unknown) Improved yesterday at 5570. (unknown) (no (unknown) (unknown) Patient's (units (unkn own) date) rivaroxaban, aspirin unknown) and clopidogrel are being held.? No evidence of (unknown) (no (unknown) (unknown) Patient: (units (unkno wn) date) Osmel Baxter MR#: unknown) M000 (unknown) (no (unknown) (unknown) Physician (units (unkn own) date) Instructions: unknown) Evaluate and Treat (unknown) (no (unknown) (unknown) Plt Count 178 190 (units (unknown) date) unknown) (unknown) (no (unknown) (unknown) Plt Count (units (unkn own) date) unknown) (unknown) (no (unknown) (unknown) Potassium 3.9 (units ( unknown) date) unknown) (unknown) (no (unknown) (unknown) Prescriptions: (units (unknown) date) unknown) (unknown) (no (unknown) (unknown) Primary Care (units (u nknown) date) Provider: unknown) Miscellaneous,Doctor (unknown) (no (unknown) (unknown) Primary care (units (u nknown) date) physician: unknown) (unknown) (no (unknown) (unknown) Provider (units (unkno wn) date) unknown) (unknown) (no (unknown) (unknown) Provider: (units (unkn own) date) Freddie Thomas D.O. unknown) (unknown) (no (unknown) (unknown) Psych:? Normal mood (unit s (unknown) date) and affect. unknown) (unknown) (no (unknown) (unknown) Pulse Oximetry 98 (units (unknown) date) unknown) (unknown) (no (unknown) (unknown) Pulse Rate 60 (units ( unknown) date) unknown) (unknown) (no (unknown) (unknown) Quality (units (unkno wn) date) unknown) (unknown) (no (unknown) (unknown) RBC 3.63 L 3.48 L (units (unknown) date) unknown) (unknown) (no (unknown) (unknown) RBC Morphology See (units (unknown) date) below See below unknown) (unknown) (no (unknown) (unknown) RBC Morphology (units (unknown) date) unknown) (unknown) (no (unknown) (unknown) RBC (units (unkno wn) date) unknown) (unknown) (no (unknown) (unknown) RDW 23.3 H 23.1 H (units (unknown) date) unknown) (unknown) (no (unknown) (unknown) RDW (units (unkno wn) date) unknown) (unknown) (no (unknown) (unknown) Reason for (units (unk nown) date) consultation: large unknown) hematoma, concerning for soft tissue (unknown) (no (unknown) (unknown) Reason for (units (unk nown) date) consultation: left unknown) leg subcutaneous hematoma wound (unknown) (no (unknown) (unknown) Reason for (units (unk nown) date) consultation: pt has unknown) many skin issues (unknown) (no (unknown) (unknown) Respiratory Rate 16 (unit s (unknown) date) unknown) (unknown) (no (unknown) (unknown) Respiratory:? (units ( unknown) date) Adequate air entry unknown) throughout the lung adam, there are no (unknown) (no (unknown) (unknown) Result Diagrams: (units (unknown) date) unknown) (unknown) (no (unknown) (unknown) Review of outside (units (unknown) date) medical records.? 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 Abrasions (units (unknown) date) left foot.? Wound unknown) left knee with hematoma currently dressed.? (unknown) (no (unknown) (unknown) Sleep apnea (units (un known) date) unknown) (unknown) (no (unknown) (unknown) Smoking Status: (units (unknown) date) Former smoker unknown) (unknown) (no (unknown) (unknown) Social History (units (unknown) date) (Updated 09/25/18 @ unknown) 11:17 by Telma Dickey DO) (unknown) (no (unknown) (unknown) Sodium 134 L (units (u nknown) date) unknown) (unknown) (no (unknown) (unknown) Soft tissues (units (u nknown) date) abrasions right arm unknown) dressed. (unknown) (no (unknown) (unknown) Summary (units (unkno wn) date) unknown) (unknown) (no (unknown) (unknown) Surgical History (units (unknown) date) (Reviewed 01/27/22 @ unknown) 07:53 by Tony Aceves MD) (unknown) (no (unknown) (unknown) Temperature 97.5 F L (uni ts (unknown) date) unknown) (unknown) (no (unknown) (unknown) Therefore patient (units (unknown) date) will be on new mg unknown) b.i.d. of torsemide.? Torsemide was chosen (unknown) (no (unknown) (unknown) Today, when he (units (unknown) date) presented to the this unknown) emergency department he was found to be (unknown) (no (unknown) (unknown) VITAMIN D (Vitamin (units (unknown) date) D3) tablet unknown) (unknown) (no (unknown) (unknown) VTE (units (unkno wn) date) unknown) (unknown) (no (unknown) (unknown) Vital Signs (units (un known) date) unknown) (unknown) (no (unknown) (unknown) WBC 5.1 5.1 (units (un known) date) unknown) (unknown) (no (unknown) (unknown) WBC (units (unkno wn) date) unknown) (unknown) (no (unknown) (unknown) Wound care consulted (uni ts (unknown) date) due to compromised unknown) skin at site of hematoma left leg.? Has (unknown) (no (unknown) (unknown) Xarelto 20 mg tablet (uni ts (unknown) date) unknown) (unknown) (no (unknown) (unknown) [Embedded Image Not (unit s (unknown) date) Available] unknown) (unknown) (no (unknown) (unknown) addition to his (units (unknown) date) normal prescribed unknown) dose of 20 mg p.o. per the emergency provider, (unknown) (no (unknown) (unknown) admission (units (unkn own) date) unknown) (unknown) (no (unknown) (unknown) alk phos 170 proBNP (unit s (unknown) date) 7170 procalcitonin is unknown) negative UA is positive for wbc's (unknown) (no (unknown) (unknown) allopurinol 100 mg (units (unknown) date) Tablet unknown) (unknown) (no (unknown) (unknown) and then does not (units (unknown) date) remember anything out unknown) after that. He did endorse being short (unknown) (no (unknown) (unknown) and vancomycin.? He (units (unknown) date) also presented with unknown) an acute kidney injury with a creatinine (unknown) (no (unknown) (unknown) and was administered (uni ts (unknown) date) 2 units PRBC.? It was unknown) determined that patient is likely (unknown) (no (unknown) (unknown) appears to be triple (uni ts (unknown) date) anti-platelet unknown) therapy, present on admission.? Causing (unknown) (no (unknown) (unknown) aspirin 81 MG (units ( unknown) date) tablet,chewable unknown) (unknown) (no (unknown) (unknown) at 15% with volume (units (unknown) date) overload and unknown) tachycardia.? He underwent PCI of the distal (unknown) (no (unknown) (unknown) atorvastatin 20 mg (units (unknown) date) Tablet unknown) (unknown) (no (unknown) (unknown) bilaterally.? No (units (unknown) date) pedal edema. unknown) (unknown) (no (unknown) (unknown) bled into the large (unit s (unknown) date) hematoma.? 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 At that unknown) time he was very short of breath, (unknown) (no (unknown) (unknown) complicated cardiac (unit s (unknown) date) history.? He states unknown) that when he fell, he felt lightheaded (unknown) (no (unknown) (unknown) concerning for (units (unknown) date) sepsis and was given unknown) fluid resuscitation in addition to IV Zosyn (unknown) (no (unknown) (unknown) coronary artery (units (unknown) date) disease, recent unknown) biventricular PCTA, red, cardioversion, diabetes (unknown) (no (unknown) (unknown) cyclobenzaprine 10 (units (unknown) date) mg Tablet unknown) (unknown) (no (unknown) (unknown) daughter in-law (units (unknown) date) called EMS due to the unknown) patient declining per the ED triage note. (unknown) (no (unknown) (unknown) details: x 9 (uni ts (unknown) date) months unknown) (unknown) (no (unknown) (unknown) due to the mortality (uni ts (unknown) date) benefits in this unknown) patient. (unknown) (no (unknown) (unknown) duloxetine 30 mg, (units (unknown) date) ferrous gluconate 324 unknown) mg, glargine insulin, metformin, (unknown) (no (unknown) (unknown) dyspneic orthopneic (unit s (unknown) date) and unable to lay unknown) flat.? He became tachycardic developing a (unknown) (no (unknown) (unknown) emergency department (uni ts (unknown) date) after injuring his unknown) right knee seemingly occurred about (unknown) (no (unknown) (unknown) evaluate.? Consult (units (unknown) date) completed by wound unknown) care nurse.? Continue current treatment.? (unknown) (no (unknown) (unknown) falling and he (units (unknown) date) thinks he passed unknown) out.? He was allegedly nonresponsive likely to (unknown) (no (unknown) (unknown) follow-up with wound (uni ts (unknown) date) critical care clinical nurse specialist after unknown) discharge. (unknown) (no (unknown) (unknown) for atrial (units (unkn own) date) fibrillation.? He was unknown) discharged home to his son's home.? He appeared (unknown) (no (unknown) (unknown) from 6.7-7.9 and (units (unknown) date) 20.8-24.5 unknown) respectively.? Hemoglobin now stable at 8-9's.? (unknown) (no (unknown) (unknown) furosemide to 40 mg (unit s (unknown) date) daily.? unknown) Hydrochlorothiazide is not been ordered.? Torsemide (unknown) (no (unknown) (unknown) further bleeding.? (units (unknown) date) Hemoglobin stable.? unknown) Restart aspirin and rivaroxaban tomorrow. (unknown) (no (unknown) (unknown) has been added and (units (unknown) date) is dated furosemide unknown) was discontinued and the torsemide dose (unknown) (no (unknown) (unknown) have actually lodged (unit s (unknown) date) into his medial calf unknown) with some skin peeling surrounding the (unknown) (no (unknown) (unknown) have no infection (units (unknown) date) and is proceeding unknown) with healing. (unknown) (no (unknown) (unknown) heart failure. He was (uni ts (unknown) date) subsequently seen in unknown) the heart failure clinic and admitted (unknown) (no (unknown) (unknown) hematoma but no (units (unknown) date) fracture.? They unknown) applied a posterior splint to immobilize his (unknown) (no (unknown) (unknown) hematoma left leg.? (unit s (unknown) date) With skin compromise unknown) over the hematoma will have wound care (unknown) (no (unknown) (unknown) hematoma.? He also (units (unknown) date) had a number of unknown) dressings on his right arm.? He states that (unknown) (no (unknown) (unknown) history of heart (units (unknown) date) failure with reduced unknown) ejection fraction and has had a recent and (unknown) (no (unknown) (unknown) hold due to renal (units (unknown) date) function. unknown) (unknown) (no (unknown) (unknown) household members: (units (unknown) date) children unknown) (unknown) (no (unknown) (unknown) hydrochlorothiazide (unit s (unknown) date) 25 MG tablet unknown) (unknown) (no (unknown) (unknown) in the [facility] (units (unknown) date[facility]. [facility] was discharged from (unknown) (no (unknown) (unknown) increased to be (units (unknown) date) equivalent of the unknown) dose of the torsemide plus furosemide.? (unknown) (no (unknown) (unknown) infection.? This has (uni ts (unknown) date) been discontinued. unknown) (unknown) (no (unknown) (unknown) insulin glargine (units (unknown) date) [Lantus U-100 unknown) Insulin] 100 UNIT/1 ML solution (unknown) (no (unknown) (unknown) is midline. (units (un known) date) unknown) (unknown) (no (unknown) (unknown) joint, presumably (units (unknown) date) hematoma and likely unknown) the source of the acute blood loss.? After (unknown) (no (unknown) (unknown) large irregular (units (unknown) date) medial soft tissue unknown) mass without extension into the underlying (unknown) (no (unknown) (unknown) left leg and was to (unit s (unknown) date) have removed it in unknown) 2-3 days.? He was discharged with 14 (unknown) (no (unknown) (unknown) lisinopril 20 MG (units (unknown) date) tablet unknown) (unknown) (no (unknown) (unknown) marital status: (units (unknown) date) unknown) (unknown) (no (unknown) (unknown) metformin 500 mg (units (unknown) date) Tablet unknown) (unknown) (no (unknown) (unknown) micofungin. (units (un known) date) unknown) (unknown) (no (unknown) (unknown) mobilize more with (units (unknown) date) physical therapy.? No unknown) localized strength deficits. (unknown) (no (unknown) (unknown) narrow complex (units (unknown) date) rhythm and was giving unknown) adenosine and at that time revealing (unknown) (no (unknown) (unknown) not been evaluated (units (unknown) date) yet.? Wound care unknown) nurse has seen the patient.? Recommends (unknown) (no (unknown) (unknown) numbing of his hands (uni ts (unknown) date) and feet. unknown) (unknown) (no (unknown) (unknown) of 3.18 up from 1.63 (uni ts (unknown) date) in January.? They did unknown) a repeat of the CT which reported a (unknown) (no (unknown) (unknown) of breath but denied (uni ts (unknown) date) chest pain.? He unknown) states that his diabetes seems to be under (unknown) (no (unknown) (unknown) omeprazole 40 MG (units (unknown) date) capsule,delayed unknown) release(DR/EC) (unknown) (no (unknown) (unknown) omeprazole, Mirapex (unit s (unknown) date) 0.125 mg nightly and unknown) as needed nitroglycerin. (unknown) (no (unknown) (unknown) on admission (units (u nknown) date) unknown) (unknown) (no (unknown) (unknown) on on September 06 for (unit s (unknown) date) an elective right unknown) left heart catheterization, undergoing a (unknown) (no (unknown) (unknown) oriented and was (units (unknown) date) requested for unknown) admission to the medical floor. (unknown) (no (unknown) (unknown) oxycodone 10 mg (units (unknown) date) tablet,oral unknown) only,ext.rel.12 hr (unknown) (no (unknown) (unknown) oxycodone 5 mg (units (unknown) date) Tablet unknown) (unknown) (no (unknown) (unknown) oxycodone.? When he (unit s (unknown) date) presented to this unknown) emergency room the splint was found to (unknown) (no (unknown) (unknown) oxygen saturation of (uni ts (unknown) date) 100% on room air he unknown) weighs 94 kg with a BMI of 33.4.? (unknown) (no (unknown) (unknown) pretty good control (unit s (unknown) date) in thought his A1c unknown) was less than 8.? He denies nausea or (unknown) (no (unknown) (unknown) profoundly anemic (units (unknown) date) with a hemoglobin and unknown) hematocrit of 6.7 and 20.8 respectively (unknown) (no (unknown) (unknown) readmitted to (units ( unknown) [facility].? He unknown) does not understand why he has here inn (unknown) (no (unknown) (unknown) respectively, (units ( unknown) date) platelet count is unknown) 206, sodium 132 chloride 97 BUN 61 creatinine (unknown) (no (unknown) (unknown) right coronary (units (unknown) date) artery, had a unknown) transesophageal echocardiogram and cardioversion (unknown) (no (unknown) (unknown) succinate 50 mg, (units (unknown) date) spironolactone 25 mg, unknown) torsemide 20 mg, Jardiance, lisinopril (unknown) (no (unknown) (unknown) supple.? Neck nodes (unit s (unknown) date) are nontender unknown) nonpalpable.? Head is normocephalic.? Trachea (unknown) (no (unknown) (unknown) the blood pressure (units (unknown) date) transfusion the unknown) patient was administered IV Lasix 80 mg in (unknown) (no (unknown) (unknown) the patient's blood (unit s (unknown) date) pressure improved and unknown) he became a lot more alert and (unknown) (no (unknown) (unknown) the son and (units (un known) date) paramedics which unknown) precipitated bringing him here.? Patient has a (unknown) (no (unknown) (unknown) these were all due (units (unknown) date) to his falls. unknown) (unknown) (no (unknown) (unknown) to be resumed on his (uni ts (unknown) date) home medications of unknown) aspirin, clopidogrel, metoprolol (unknown) (no (unknown) (unknown) to his home oral dose (uni ts (unknown) date) of unknown) hydrochlorothiazide and torsemide.? Will increase daily (unknown) (no (unknown) (unknown) torsemide 20 mg (units (unknown) date) Tablet unknown) (unknown) (no (unknown) (unknown) trauma/injury (units ( unknown) date) unknown) (unknown) (no (unknown) (unknown) treatment.? 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 He (uni ts (unknown) date) ended up staying unknown) longer to manage his atrial fibrillation (unknown) (no (unknown) (unknown) urine bacteria and (units (unknown) date) apparently yeast and unknown) meets criteria for culture.? COVID-19 (unknown) (no (unknown) (unknown) vomiting, dysuria (units (unknown) date) diarrhea or unknown) constipation he does state positive to having (unknown) (no (unknown) (unknown) was for ICD (units (un known) date) placement before he unknown) was admitted but will have to be at later date. (unknown) (no (unknown) (unknown) wheezes or crackles. (uni ts (unknown) date) unknown) Result panel 110 (unknown) (no (unknown) (unknown) (no value) (units (unk nown) date) unknown) (unknown) (no (unknown) (unknown) (Bruise), How to (units (unknown) date) Prevent Falls, DI for unknown) Prescription Opioid Use, Skin Wound (unknown) (no (unknown) (unknown) (past 8 hours): (units (unknown) date) unknown) (unknown) (no (unknown) (unknown) -Cr downtrending (units (unknown) date) unknown) (unknown) (no (unknown) (unknown) -Hold xarelto. Will (unit s (unknown) date) have patient discuss unknown) with PCP resuming it at later time. (unknown) (no (unknown) (unknown) -Patient noted left (unit s (unknown) date) heel pain with unknown) standing (unknown) (no (unknown) (unknown) -Tylenol PRN (units (u nknown) date) unknown) (unknown) (no (unknown) (unknown) -XR negative for (units (unknown) date) calcaneal fracture unknown) (unknown) (no (unknown) (unknown) -dc HCTZ on (units (un known) date) discharge but unknown) continued (unknown) (no (unknown) (unknown) -multiple (units (unkn own) date) orthostatics showed unknown) 20 point in systolic drop (unknown) (no (unknown) (unknown) -patient to discuss (unit s (unknown) date) with mechanical project engineer unknown) about lowering his other BP meds to (unknown) (no (unknown) (unknown) 0.25 mg SUBCUT QWEEK (uni ts (unknown) date) unknown) (unknown) (no (unknown) (unknown) 04:55 (units (unkno wn) date) unknown) (unknown) (no (unknown) (unknown) 05:00 (units (unkno wn) date) unknown) (unknown) (no (unknown) (unknown) 01/27/22 00:50 (units (unknown) date) unknown) (unknown) (no (unknown) (unknown) 01/27/22 01:02 (units (unknown) date) unknown) (unknown) (no (unknown) (unknown) 01/27/22 01:09 (units (unknown) date) unknown) (unknown) (no (unknown) (unknown) 01/27/22 05:21 (units (unknown) date) unknown) (unknown) (no (unknown) (unknown) 01/27/22 10:13 (units (unknown) date) unknown) (unknown) (no (unknown) (unknown) 02/01/22 02/01/22 (units (unknown) date) 02/02/22 unknown) (unknown) (no (unknown) (unknown) 02/02/22 04:55 (units (unknown) date) unknown) (unknown) (no (unknown) (unknown) 02/02/22 (units (unkno wn) date) unknown) (unknown) (no (unknown) (unknown) 09:08 09:08 04:55 (units (unknown) date) unknown) (unknown) (no (unknown) (unknown) 1 tab PO BEDTIME (units (unknown) date) unknown) (unknown) (no (unknown) (unknown) 1-2 tabs by mouth q (unit s (unknown) date) 6 hours as needed for unknown) pain. (unknown) (no (unknown) (unknown) 1. Acute blood loss (unit s (unknown) date) anemia likely unknown) secondary to over coagulation with what (unknown) (no (unknown) (unknown) 10 mg PO BID (units (u nknown) date) unknown) (unknown) (no (unknown) (unknown) 10 mg PO Q6H PRN (units (unknown) date) (Reason: pain) Qty: unknown) 30 0RF (unknown) (no (unknown) (unknown) 10 mg PO TID (units (u nknown) date) unknown) (unknown) (no (unknown) (unknown) 100 mg PO BID (units ( unknown) date) unknown) (unknown) (no (unknown) (unknown) 100 unit SQ DAILY (units (unknown) date) Qty: 0 unknown) (unknown) (no (unknown) (unknown) 12.5 mg PO BID (units (unknown) date) unknown) (unknown) (no (unknown) (unknown) 15 mg PO DAILY (units (unknown) date) unknown) (unknown) (no (unknown) (unknown) 2,000 mg PO DAILY (units (unknown) date) unknown) (unknown) (no (unknown) (unknown) 2,000 units PO DAILY (uni ts (unknown) date) Qty: 0 unknown) (unknown) (no (unknown) (unknown) 2. Acute kidney (units (unknown) date) injury likely unknown) secondary to blood loss anemia, present on (unknown) (no (unknown) (unknown) 2.5 mg PO QDAY Qty: (unit s (unknown) date) 0 unknown) (unknown) (no (unknown) (unknown) 2.5 mg, Xarelto 15 (units (unknown) date) mg, allopurinol, unknown) amiodarone 200 mg, atorvastatin 40 mg, (unknown) (no (unknown) (unknown) 20 mg PO BID (units (u nknown) date) unknown) (unknown) (no (unknown) (unknown) 3. Acute (units (unkno wn) date) decompensated heart unknown) failure with reduced ejection fraction, present on (unknown) (no (unknown) (unknown) 3.18 with an EGFR of (uni ts (unknown) date) 19 glucose 130 unknown) hemoglobin A1c is 6.5 total bilirubin 1.5 (unknown) (no (unknown) (unknown) [id number] (units (unkno wn) date) unknown) (unknown) (no (unknown) (unknown) 4. Left medial knee (unit s (unknown) date) hematoma with unknown) possible overlying cellulitis, acute, present (unknown) (no (unknown) (unknown) 40 mg PO DAILY Qty: (unit s (unknown) date) 0 unknown) (unknown) (no (unknown) (unknown) 40 mg PO DAILY (units (unknown) date) unknown) (unknown) (no (unknown) (unknown) 5. Coronary artery (units (unknown) date) disease, chronic unknown) (unknown) (no (unknown) (unknown) 50 mg PO QDAY Qty: 0 (uni ts (unknown) date) unknown) (unknown) (no (unknown) (unknown) 6. Diabetes type 2, (unit s (unknown) date) appears to be well unknown) controlled (unknown) (no (unknown) (unknown) 7. Mobilization.? (units (unknown) date) Beginning to mobilize unknown) with physical therapy.? Continue with (unknown) (no (unknown) (unknown) 8. Urinary tract (units (unknown) date) infection with unknown) Renetta glabrata.?Asymptomati c so will dc (unknown) (no (unknown) (unknown) 81 mg PO QDAY Qty: 0 (uni ts (unknown) date) unknown) (unknown) (no (unknown) (unknown) 9. Left heel pain, (units (unknown) date) present on admission unknown) (unknown) (no (unknown) (unknown) 9. Orthostatic (units (unknown) date) hypotension unknown) (unknown) (no (unknown) (unknown) A1c is 6.5 (units (unk nown) date) unknown) (unknown) (no (unknown) (unknown) Activity: stand up (units (unknown) date) from laying or unknown) sitting slowly while holding onto something (unknown) (no (unknown) (unknown) Age/Sex: 76 / M (units (unknown) date) unknown) (unknown) (no (unknown) (unknown) [place] but has no (uni ts (unknown) date) problems being here.? unknown) He stated that he does remember (unknown) (no (unknown) (unknown) Anisocytosis 3+ H 3+ (uni ts (unknown) date) H unknown) (unknown) (no (unknown) (unknown) Anisocytosis (units (u nknown) date) unknown) (unknown) (no (unknown) (unknown) Anticoagulated (units (unknown) date) unknown) (unknown) (no (unknown) (unknown) Atrial fibrillation (unit s (unknown) date) unknown) (unknown) (no (unknown) (unknown) January 20 or (units (unknown) date) .? His unknown) anticoagulation had been stopped and he had at (unknown) (no (unknown) (unknown) BUN 59 H (units (unkno wn) date) unknown) (unknown) (no (unknown) (unknown) BUN/Creatinine Ratio (uni ts (unknown) date) 30.1 H unknown) (unknown) (no (unknown) (unknown) BUN/Creatinine Ratio (uni ts (unknown) date) 33.3 H unknown) (unknown) (no (unknown) (unknown) Baso # (Auto) 0 0 (units (unknown) date) unknown) (unknown) (no (unknown) (unknown) Baso # (Auto) (units ( unknown) date) unknown) (unknown) (no (unknown) (unknown) Baso % (Auto) 0.6 (units (unknown) date) 0.8 unknown) (unknown) (no (unknown) (unknown) Baso % (Auto) (units ( unknown) date) unknown) (unknown) (no (unknown) (unknown) Blood Pressure (units (unknown) date) 126/50 L unknown) (unknown) (no (unknown) (unknown) Calcium 8.3 L (units ( unknown) date) unknown) (unknown) (no (unknown) (unknown) Calcium 8.5 (units (un known) date) unknown) (unknown) (no (unknown) (unknown) Carb controlled diet (uni ts (unknown) date) with a.c. 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 (unknown) (no (unknown) (unknown) Cardiovascular:? 06/13 (uni ts (unknown) date) systolic murmur.? unknown) S1-S2.? Peripheral pulses equal (unknown) (no (unknown) (unknown) Changed (units (unkno wn) date) unknown) (unknown) (no (unknown) (unknown) Chief complaint: (units (unknown) date) Dementia unknown) (unknown) (no (unknown) (unknown) Chloride 100 (units (u nknown) date) unknown) (unknown) (no (unknown) (unknown) Closely monitor (units (unknown) date) renal function and unknown) hold nephrotoxic medications (Lisinopril).? (unknown) (no (unknown) (unknown) Comment: Home safety (uni ts (unknown) date) issue unknown) (unknown) (no (unknown) (unknown) Comment: (units (unkno wn) date) unknown) (unknown) (no (unknown) (unknown) Consult to Inpatient (uni ts (unknown) date) Wound Care Nurse unknown) Routine (unknown) (no (unknown) (unknown) Consult to Physical (unit s (unknown) date) Therapy Evaluate + unknown) Treat (unknown) (no (unknown) (unknown) Consult to Physician (uni ts (unknown) date) Routine unknown) (unknown) (no (unknown) (unknown) Consulting Provider: (uni ts (unknown) date) Tony Aceves unknown) (unknown) (no (unknown) (unknown) Consults: (units (unkn own) date) unknown) (unknown) (no (unknown) (unknown) Continue carvedilol (unit s (unknown) date) 25 mg p.o. b.i.d., unknown) patient receives in 12.5 mg tablets (unknown) (no (unknown) (unknown) Continue home (units ( unknown) date) aspiring 81mg daily. unknown) (unknown) (no (unknown) (unknown) Continue home dose (units (unknown) date) of atorvastatin 40 mg unknown) p.o. at bedtime (unknown) (no (unknown) (unknown) Continue home (units ( unknown) date) lisinopril 2.5 unknown) (unknown) (no (unknown) (unknown) Continue home (units ( unknown) date) torsemide unknown) (unknown) (no (unknown) (unknown) Continued (units (unkn own) date) unknown) (unknown) (no (unknown) (unknown) Coronary artery (units (unknown) date) disease unknown) (unknown) (no (unknown) (unknown) Creatinine 1.77 H (units (unknown) date) unknown) (unknown) (no (unknown) (unknown) Creatinine 1.96 H (units (unknown) date) unknown) (unknown) (no (unknown) (unknown) Currently his (units ( unknown) date) hemoglobin and unknown) hematocrit was improved to 7.9 in 24.5 (unknown) (no (unknown) (unknown) : 1945 (units (unknown) date) Acct:[id number] unknown) (unknown) (no (unknown) (unknown) Date of Service: (units (unknown) date) 01/27/22 unknown) (unknown) (no (unknown) (unknown) Date of admission: (units (unknown) date) unknown) (unknown) (no (unknown) (unknown) Deep Vein (units (unkn own) date) Thrombosis/Pulmonary unknown) Embolism Present on Admission: No (unknown) (no (unknown) (unknown) Diabetes (units (unkno wn) date) unknown) (unknown) (no (unknown) (unknown) Diet comment: (units ( unknown) date) restrict fluids per unknown) MD (unknown) (no (unknown) (unknown) Diet/Activity/Treatm (uni ts (unknown) date) ents unknown) (unknown) (no (unknown) (unknown) Diet: Low-fat and (units (unknown) date) Low-sodium unknown) (unknown) (no (unknown) (unknown) Discharge Data (units (unknown) date) unknown) (unknown) (no (unknown) (unknown) Discharge Date: (units (unknown) date) 02/02/22 unknown) (unknown) (no (unknown) (unknown) Discharge Diagnosis: (uni ts (unknown) date) unknown) (unknown) (no (unknown) (unknown) Discharge Plan (units (unknown) date) unknown) (unknown) (no (unknown) (unknown) Discharge Providers (unit s (unknown) date) unknown) (unknown) (no (unknown) (unknown) Discharge Summary (units (unknown) date) unknown) (unknown) (no (unknown) (unknown) Discharge orders + (units (unknown) date) Medications unknown) (unknown) (no (unknown) (unknown) Discharge provider: (unit s (unknown) date) unknown) (unknown) (no (unknown) (unknown) Discontinued (units (u nknown) date) unknown) (unknown) (no (unknown) (unknown) Doctor (units (unkno wn) date) JessicacellaneousMD unknown) (unknown) (no (unknown) (unknown) Dyslipidemia (units (u nknown) date) unknown) (unknown) (no (unknown) (unknown) Echo at [facility] (units (unknown) date) with EF 15%. In the unknown) ER, he received IV Lasix 80 mg in addition (unknown) (no (unknown) (unknown) Eos # (Auto) 100 200 (uni ts (unknown) date) unknown) (unknown) (no (unknown) (unknown) Eos # (Auto) (units (u nknown) date) unknown) (unknown) (no (unknown) (unknown) Eos % (Auto) 2.6 3.4 (uni ts (unknown) date) unknown) (unknown) (no (unknown) (unknown) Eos % (Auto) (units (u nknown) date) unknown) (unknown) (no (unknown) (unknown) Estimated GFR 35 L (units (unknown) date) unknown) (unknown) (no (unknown) (unknown) Estimated GFR 39 L (units (unknown) date) unknown) (unknown) (no (unknown) (unknown) Exam Narrative: (units (unknown) date) unknown) (unknown) (no (unknown) (unknown) Exam (units (unkno wn) date) unknown) (unknown) (no (unknown) (unknown) Family History (units (unknown) date) (Reviewed 01/27/22 @ unknown) 07:53 by Tony Aceves MD) (unknown) (no (unknown) (unknown) Follow up/Referrals: (uni ts (unknown) date) unknown) (unknown) (no (unknown) (unknown) Gastrointestinal:? (units (unknown) date) Bowel sounds normal.? unknown) Abdomen soft.? Nontender. (unknown) (no (unknown) (unknown) Glucose 115 H (units ( unknown) date) unknown) (unknown) (no (unknown) (unknown) Glucose 122 H (units ( unknown) date) unknown) (unknown) (no (unknown) (unknown) HEENT:? Pupils equal (uni ts (unknown) date) reaction to light.? unknown) Extraocular movements normal.? Neck is (unknown) (no (unknown) (unknown) Osmel Baxter is a (units (unknown) date) 76-year-old male unknown) status post CABG approximately 20 years ago, (unknown) (no (unknown) (unknown) Has provider been (units (unknown) date) notified: No unknown) (unknown) (no (unknown) (unknown) Has provider been (units (unknown) date) notified: Yes unknown) (unknown) (no (unknown) (unknown) Hct 28.6 L 27.2 L (units (unknown) date) unknown) (unknown) (no (unknown) (unknown) Hct (units (unkno wn) date) unknown) (unknown) (no (unknown) (unknown) He is afebrile, (units (unknown) date) blood pressure unknown) 108/46, heart rate 58, respiratory rate 12, (unknown) (no (unknown) (unknown) He is currently (units (unknown) date) saline lock due to unknown) volume overload (unknown) (no (unknown) (unknown) [facility] with decompensated (unknown) (no (unknown) (unknown) He will receive his (unit s (unknown) date) home dose of Lantus unknown) 30 units b.i.d. Metformin remains on (unknown) (no (unknown) (unknown) Hgb 9.2 L 8.9 L (units (unknown) date) unknown) (unknown) (no (unknown) (unknown) Hgb (units (unkno wn) date) unknown) (unknown) (no (unknown) (unknown) History of Present (units (unknown) date) Illness unknown) (unknown) (no (unknown) (unknown) Hospital Course (units (unknown) date) unknown) (unknown) (no (unknown) (unknown) Hx of (units (unkno wn) date) cholecystectomy unknown) (unknown) (no (unknown) (unknown) Hypertension (units (u nknown) date) unknown) (unknown) (no (unknown) (unknown) Hypochromasia 1+ H (units (unknown) date) unknown) (unknown) (no (unknown) (unknown) Hypochromasia (units ( unknown) date) unknown) (unknown) (no (unknown) (unknown) Initially vancomycin (uni ts (unknown) date) that was largely unknown) prophylactic since no persistent signs of (unknown) (no (unknown) (unknown) Instructions: (units ( unknown) date) Orthostatic unknown) Hypotension, DI for Heart Failure, DI for Hematoma (unknown) (no (unknown) (unknown) [facility] [address] (uni ts (unknown) date) [address] unknown) [place] [address] (unknown) (no (unknown) (unknown) Laboratory Results - (uni ts (unknown) date) last 24 hr unknown) (unknown) (no (unknown) (unknown) Labs (units (unkno wn) date) unknown) (unknown) (no (unknown) (unknown) Labs: (units (unkno wn) date) unknown) (unknown) (no (unknown) (unknown) Low-dose (units (unkno wn) date) correctional scale unknown) insulin and adjust as needed (unknown) (no (unknown) (unknown) Lymph # (Auto) 600 L (uni ts (unknown) date) 800 L unknown) (unknown) (no (unknown) (unknown) Lymph # (Auto) (units (unknown) date) unknown) (unknown) (no (unknown) (unknown) Lymph % (Auto) 11.9 (unit s (unknown) date) L 16.5 L unknown) (unknown) (no (unknown) (unknown) Lymph % (Auto) (units (unknown) date) unknown) (unknown) (no (unknown) (unknown) MCH 25.4 L 25.6 L (units (unknown) date) unknown) (unknown) (no (unknown) (unknown) MCH (units (unkno wn) date) unknown) (unknown) (no (unknown) (unknown) MCHC 32.2 32.7 (units (unknown) date) unknown) (unknown) (no (unknown) (unknown) MCHC (units (unkno wn) date) unknown) (unknown) (no (unknown) (unknown) MCV 78.9 L 78.1 L (units (unknown) date) unknown) (unknown) (no (unknown) (unknown) MCV (units (unkno wn) date) unknown) (unknown) (no (unknown) (unknown) Freddie Thomas DO (unit s (unknown) date) unknown) (unknown) (no (unknown) (unknown) Ham Agrawal MD (units (unknown) date) [Non-Staff] unknown) (unknown) (no (unknown) (unknown) Medical History (units (unknown) date) (Reviewed 01/27/22 @ unknown) 07:53 by Tony Aceves MD) (unknown) (no (unknown) (unknown) Lajas # (Auto) 400 (units (unknown) date) 500 unknown) (unknown) (no (unknown) (unknown) Lajas # (Auto) (units ( unknown) date) unknown) (unknown) (no (unknown) (unknown) Lajas % (Auto) 8.4 (units (unknown) date) 9.6 unknown) (unknown) (no (unknown) (unknown) Lajas % (Auto) (units ( unknown) date) unknown) (unknown) (no (unknown) (unknown) Musculoskeletal:? (units (unknown) date) Able to move all unknown) extremities volitionally.? Beginning to (unknown) (no (unknown) (unknown) Narrative (units (unkn own) date) unknown) (unknown) (no (unknown) (unknown) Narrative: (units (unk nown) date) unknown) (unknown) (no (unknown) (unknown) Neuro:? Normal (units (unknown) date) sensation of all unknown) extremities.? Oriented x3. (unknown) (no (unknown) (unknown) Neut # (Auto) 3900 (units (unknown) date) 3600 unknown) (unknown) (no (unknown) (unknown) Neut # (Auto) (units ( unknown) date) unknown) (unknown) (no (unknown) (unknown) Neut % (Auto) 76.5 H (uni ts (unknown) date) 69.7 unknown) (unknown) (no (unknown) (unknown) Neut % (Auto) (units ( unknown) date) unknown) (unknown) (no (unknown) (unknown) Objective (units (unkn own) date) unknown) (unknown) (no (unknown) (unknown) Oriented to time (units (unknown) date) place and person.? unknown) Appears in no acute medical distress. (unknown) (no (unknown) (unknown) Orthopedic surgery (units (unknown) date) has been consulted unknown) and seen the patient. (unknown) (no (unknown) (unknown) Other Adopted (units ( unknown) date) unknown) (unknown) (no (unknown) (unknown) Ovalocytes 1+ H (units (unknown) date) unknown) (unknown) (no (unknown) (unknown) Ovalocytes (units (unk nown) date) unknown) (unknown) (no (unknown) (unknown) Oxygen Delivery (units (unknown) date) Method Room Air unknown) (unknown) (no (unknown) (unknown) Oxygen Flow Rate 0 (units (unknown) date) unknown) (unknown) (no (unknown) (unknown) Ozempic 0.25 mg or (units (unknown) date) 0.5 mg(2 mg/1.5 mL) unknown) Pen Injector (unknown) (no (unknown) (unknown) PCR is negative, (units (unknown) date) blood type is A unknown) negative. (unknown) (no (unknown) (unknown) PFSH (units (unkno wn) date) unknown) (unknown) (no (unknown) (unknown) Patient Disposition: (uni ts (unknown) date) Home Health Service unknown) (unknown) (no (unknown) (unknown) Patient does not (units (unknown) date) remember the details unknown) of what brought him here, thought he was (unknown) (no (unknown) (unknown) Patient has a remote (unit s (unknown) date) history of undergoing unknown) a CABG he states about 20 years ago.? (unknown) (no (unknown) (unknown) Patient is currently (uni ts (unknown) date) recovering from unknown) biventricular heart catheterization. Plan (unknown) (no (unknown) (unknown) Patient received 2 (units (unknown) date) units PRBC in the unknown) emergency department increasing his H+H (unknown) (no (unknown) (unknown) Patient to follow-up (uni ts (unknown) date) with wound care unknown) specialist as an outpatient.? Appears to (unknown) (no (unknown) (unknown) Patient was fluid (units (unknown) date) resuscitated in the unknown) emergency department 2 L (unknown) (no (unknown) (unknown) Patient's proBNP was (uni ts (unknown) date) almost 7200.? unknown) Improved yesterday at 5570. (unknown) (no (unknown) (unknown) Patient's (units (unkn own) date) rivaroxaban, aspirin unknown) and clopidogrel are being held.? No evidence of (unknown) (no (unknown) (unknown) Patient: (units (unkno wn) date) Osmel Baxter MR#: unknown) M000 (unknown) (no (unknown) (unknown) Physician (units (unkn own) date) Instructions: unknown) Evaluate and Treat (unknown) (no (unknown) (unknown) Plt Count 178 190 (units (unknown) date) unknown) (unknown) (no (unknown) (unknown) Plt Count (units (unkn own) date) unknown) (unknown) (no (unknown) (unknown) Potassium 3.9 (units ( unknown) date) unknown) (unknown) (no (unknown) (unknown) Prescriptions: (units (unknown) date) unknown) (unknown) (no (unknown) (unknown) Primary Care (units (u nknown) date) Provider: unknown) Miscellaneous,Doctor (unknown) (no (unknown) (unknown) Primary care (units (u nknown) date) physician: unknown) (unknown) (no (unknown) (unknown) Provider Discharge (units (unknown) date) Comment: Please make unknown) a follow-up with the wound care center (unknown) (no (unknown) (unknown) Provider (units (unkno wn) date) unknown) (unknown) (no (unknown) (unknown) Provider: (units (unkn own) date) Freddie Thomas D.O. unknown) (unknown) (no (unknown) (unknown) Psych:? Normal mood (unit s (unknown) date) and affect. unknown) (unknown) (no (unknown) (unknown) Pulse Oximetry 98 (units (unknown) date) unknown) (unknown) (no (unknown) (unknown) Pulse Rate 60 (units ( unknown) date) unknown) (unknown) (no (unknown) (unknown) Quality (units (unkno wn) date) unknown) (unknown) (no (unknown) (unknown) RBC 3.63 L 3.48 L (units (unknown) date) unknown) (unknown) (no (unknown) (unknown) RBC Morphology See (units (unknown) date) below See below unknown) (unknown) (no (unknown) (unknown) RBC Morphology (units (unknown) date) unknown) (unknown) (no (unknown) (unknown) RBC (units (unkno wn) date) unknown) (unknown) (no (unknown) (unknown) RDW 23.3 H 23.1 H (units (unknown) date) unknown) (unknown) (no (unknown) (unknown) RDW (units (unkno wn) date) unknown) (unknown) (no (unknown) (unknown) Reason for (units (unk nown) date) consultation: large unknown) hematoma, concerning for soft tissue (unknown) (no (unknown) (unknown) Reason for (units (unk nown) date) consultation: left unknown) leg subcutaneous hematoma wound (unknown) (no (unknown) (unknown) Reason for (units (unk nown) date) consultation: pt has unknown) many skin issues (unknown) (no (unknown) (unknown) Report to your (units (unknown) date) healthcare provider unknown) any signs of infection, such as:: chills, (unknown) (no (unknown) (unknown) Respiratory Rate 16 (unit s (unknown) date) unknown) (unknown) (no (unknown) (unknown) Respiratory:? (units ( unknown) date) Adequate air entry unknown) throughout the lung adam, there are no (unknown) (no (unknown) (unknown) Result Diagrams: (units (unknown) date) unknown) (unknown) (no (unknown) (unknown) Review of outside (units (unknown) date) medical records.? 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 Abrasions (units (unknown) date) left foot.? Wound unknown) left knee with hematoma currently dressed.? (unknown) (no (unknown) (unknown) Sleep apnea (units (un known) date) unknown) (unknown) (no (unknown) (unknown) Smoking Status: (units (unknown) date) Former smoker unknown) (unknown) (no (unknown) (unknown) Social History (units (unknown) date) (Updated 09/25/18 @ unknown) 11:17 by Telma Dickey DO) (unknown) (no (unknown) (unknown) Sodium 134 L (units (u nknown) date) unknown) (unknown) (no (unknown) (unknown) Soft tissues (units (u nknown) date) abrasions right arm unknown) dressed. (unknown) (no (unknown) (unknown) Summary (units (unkno wn) date) unknown) (unknown) (no (unknown) (unknown) Surgical History (units (unknown) date) (Reviewed 01/27/22 @ unknown) 07:53 by Tony Aceves MD) (unknown) (no (unknown) (unknown) Temperature 97.5 F L (uni ts (unknown) date) unknown) (unknown) (no (unknown) (unknown) Therefore patient (units (unknown) date) will be on new mg unknown) b.i.d. of torsemide.? Torsemide was chosen (unknown) (no (unknown) (unknown) Today, when he (units (unknown) date) presented to the this unknown) emergency department he was found to be (unknown) (no (unknown) (unknown) Transfer to: [facility] (units (unknown) date) [facility] unknown) (unknown) (no (unknown) (unknown) VITAMIN D (Vitamin (units (unknown) date) D3) tablet unknown) (unknown) (no (unknown) (unknown) VTE (units (unkno wn) date) unknown) (unknown) (no (unknown) (unknown) Visit (units (unkno wn) date) Report/Discharge unknown) Packet (unknown) (no (unknown) (unknown) Vital Signs (units (un known) date) unknown) (unknown) (no (unknown) (unknown) WBC 5.1 5.1 (units (un known) date) unknown) (unknown) (no (unknown) (unknown) WBC (units (unkno wn) date) unknown) (unknown) (no (unknown) (unknown) Will need outpatient (uni ts (unknown) date) wound care with HH unknown) and possibly at wound clinic. (unknown) (no (unknown) (unknown) Wound care consulted (uni ts (unknown) date) due to compromised unknown) skin at site of hematoma left leg. (unknown) (no (unknown) (unknown) Xarelto 20 mg tablet (uni ts (unknown) date) unknown) (unknown) (no (unknown) (unknown) [Embedded Image Not (unit s (unknown) date) Available] unknown) (unknown) (no (unknown) (unknown) addition to his (units (unknown) date) normal prescribed unknown) dose of 20 mg p.o. per the emergency provider, (unknown) (no (unknown) (unknown) admission (units (unkn own) date) unknown) (unknown) (no (unknown) (unknown) admission, improving (uni ts (unknown) date) unknown) (unknown) (no (unknown) (unknown) alk phos 170 proBNP (unit s (unknown) date) 7170 procalcitonin is unknown) negative UA is positive for wbc's (unknown) (no (unknown) (unknown) allopurinol 100 mg (units (unknown) date) Tablet unknown) (unknown) (no (unknown) (unknown) and then does not (units (unknown) date) remember anything out unknown) after that. He did endorse being short (unknown) (no (unknown) (unknown) and vancomycin.? He (units (unknown) date) also presented with unknown) an acute kidney injury with a creatinine (unknown) (no (unknown) (unknown) and was administered (uni ts (unknown) date) 2 units PRBC.? It was unknown) determined that patient is likely (unknown) (no (unknown) (unknown) appears to be triple (uni ts (unknown) date) anti-platelet unknown) therapy, present on admission.? Causing (unknown) (no (unknown) (unknown) aspirin 81 MG (units ( unknown) date) tablet,chewable unknown) (unknown) (no (unknown) (unknown) at 15% with volume (units (unknown) date) overload and unknown) tachycardia.? He underwent PCI of the distal (unknown) (no (unknown) (unknown) at [facility] at (units (u nknown) date) [phone] to take unknown) a look at your knee. Also please see your (unknown) (no (unknown) (unknown) atorvastatin 20 mg (units (unknown) date) Tablet unknown) (unknown) (no (unknown) (unknown) bilaterally.? No (units (unknown) date) pedal edema. unknown) (unknown) (no (unknown) (unknown) bled into the large (unit s (unknown) date) hematoma.? He was unknown) very hypotensive when he came in, was (unknown) (no (unknown) (unknown) blood pressure (units (unknown) date) continues to be low, unknown) you should also hold your torsemide and (unknown) (no (unknown) (unknown) carbidopa-levodopa (units (unknown) date) 25-100 mg Tablet unknown) (unknown) (no (unknown) (unknown) mechanical project engineer about (units (unknown) date) resuming your xarelto unknown) at your appointment with him. If your (unknown) (no (unknown) (unknown) mechanical project engineer abby. 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 At that unknown) time he was very short of breath, (unknown) (no (unknown) (unknown) complicated cardiac (unit s (unknown) date) history.? He states unknown) that when he fell, he felt lightheaded (unknown) (no (unknown) (unknown) concerning for (units (unknown) date) sepsis and was given unknown) fluid resuscitation in addition to IV Zosyn (unknown) (no (unknown) (unknown) coreg to see if this (uni ts (unknown) date) improves your BP. unknown) (unknown) (no (unknown) (unknown) coronary artery (units (unknown) date) disease, recent unknown) biventricular PCTA, red, cardioversion, diabetes (unknown) (no (unknown) (unknown) cyclobenzaprine 10 (units (unknown) date) mg Tablet unknown) (unknown) (no (unknown) (unknown) daughter in-law (units (unknown) date) called EMS due to the unknown) patient declining per the ED triage note. (unknown) (no (unknown) (unknown) details: x 9 (uni ts (unknown) date) months unknown) (unknown) (no (unknown) (unknown) due to the mortality (uni ts (unknown) date) benefits in this unknown) patient. (unknown) (no (unknown) (unknown) duloxetine 30 mg, (units (unknown) date) ferrous gluconate 324 unknown) mg, glargine insulin, metformin, (unknown) (no (unknown) (unknown) dyspneic orthopneic (unit s (unknown) date) and unable to lay unknown) flat.? He became tachycardic developing a (unknown) (no (unknown) (unknown) emergency department (uni ts (unknown) date) after injuring his unknown) right knee seemingly occurred about (unknown) (no (unknown) (unknown) evaluate.? Consult (units (unknown) date) completed by wound unknown) care nurse.? Continue current treatment.? (unknown) (no (unknown) (unknown) falling and he (units (unknown) date) thinks he passed unknown) out.? He was allegedly nonresponsive likely to (unknown) (no (unknown) (unknown) fever, night sweats, (uni ts (unknown) date) increased pain, unknown) unusual drainage and unusual redness (unknown) (no (unknown) (unknown) for atrial (units (unkn own) date) fibrillation.? He was unknown) discharged home to his son's home.? He appeared (unknown) (no (unknown) (unknown) from 6.7-7.9 and (units (unknown) date) 20.8-24.5 unknown) respectively.? Hemoglobin now stable at 8-9's.? (unknown) (no (unknown) (unknown) furosemide to 40 mg (unit s (unknown) date) daily.? unknown) Hydrochlorothiazide is not been ordered.? Torsemide (unknown) (no (unknown) (unknown) further bleeding.? (units (unknown) date) Hemoglobin stable.? unknown) Restart aspirin and rivaroxaban tomorrow. (unknown) (no (unknown) (unknown) has been added and (units (unknown) date) is dated furosemide unknown) was discontinued and the torsemide dose (unknown) (no (unknown) (unknown) have actually lodged (unit s (unknown) date) into his medial calf unknown) with some skin peeling surrounding the (unknown) (no (unknown) (unknown) have no infection (units (unknown) date) and is proceeding unknown) with healing. (unknown) (no (unknown) (unknown) heart failure. He was (uni ts (unknown) date) subsequently seen in unknown) the heart failure clinic and admitted (unknown) (no (unknown) (unknown) hematoma but no (units (unknown) date) fracture.? They unknown) applied a posterior splint to immobilize his (unknown) (no (unknown) (unknown) hematoma left leg.? (unit s (unknown) date) With skin compromise unknown) over the hematoma will have wound care (unknown) (no (unknown) (unknown) hematoma.? He also (units (unknown) date) had a number of unknown) dressings on his right arm.? He states that (unknown) (no (unknown) (unknown) history of heart (units (unknown) date) failure with reduced unknown) ejection fraction and has had a recent and (unknown) (no (unknown) (unknown) hold due to renal (units (unknown) date) function. unknown) (unknown) (no (unknown) (unknown) household members: (units (unknown) date) children unknown) (unknown) (no (unknown) (unknown) hydrochlorothiazide (unit s (unknown) date) 25 MG tablet unknown) (unknown) (no (unknown) (unknown) in the hospital (units (unknown) date) service at [facility]. Patient was discharged from (unknown) (no (unknown) (unknown) increased to be (units (unknown) date) equivalent of the unknown) dose of the torsemide plus furosemide.? (unknown) (no (unknown) (unknown) infection.? This has (uni ts (unknown) date) been discontinued. unknown) (unknown) (no (unknown) (unknown) insulin glargine (units (unknown) date) [Lantus U-100 unknown) Insulin] 100 UNIT/1 ML solution (unknown) (no (unknown) (unknown) is midline. (units (un known) date) unknown) (unknown) (no (unknown) (unknown) joint, presumably (units (unknown) date) hematoma and likely unknown) the source of the acute blood loss.? After (unknown) (no (unknown) (unknown) large irregular (units (unknown) date) medial soft tissue unknown) mass without extension into the underlying (unknown) (no (unknown) (unknown) left leg and was to (unit s (unknown) date) have removed it in unknown) 2-3 days.? He was discharged with 14 (unknown) (no (unknown) (unknown) lisinopril 20 MG (units (unknown) date) tablet unknown) (unknown) (no (unknown) (unknown) marital status: (units (unknown) date) unknown) (unknown) (no (unknown) (unknown) meantime and (units (u nknown) date) continued your unknown) aspirin for your heart. Please talk with your (unknown) (no (unknown) (unknown) metformin 500 mg (units (unknown) date) Tablet unknown) (unknown) (no (unknown) (unknown) micofungin. (units (un known) date) unknown) (unknown) (no (unknown) (unknown) mobilize more with (units (unknown) date) physical therapy.? No unknown) localized strength deficits. (unknown) (no (unknown) (unknown) narrow complex (units (unknown) date) rhythm and was giving unknown) adenosine and at that time revealing (unknown) (no (unknown) (unknown) numbing of his hands (uni ts (unknown) date) and feet. unknown) (unknown) (no (unknown) (unknown) of 3.18 up from 1.63 (uni ts (unknown) date) in January.? They did unknown) a repeat of the CT which reported a (unknown) (no (unknown) (unknown) of breath but denied (uni ts (unknown) date) chest pain.? He unknown) states that his diabetes seems to be under (unknown) (no (unknown) (unknown) omeprazole 40 MG (units (unknown) date) capsule,delayed unknown) release(DR/EC) (unknown) (no (unknown) (unknown) omeprazole, Mirapex (unit s (unknown) date) 0.125 mg nightly and unknown) as needed nitroglycerin. (unknown) (no (unknown) (unknown) on admission (units (u nknown) date) unknown) (unknown) (no (unknown) (unknown) on on September 06 for (unit s (unknown) date) an elective right unknown) left heart catheterization, undergoing a (unknown) (no (unknown) (unknown) oriented and was (units (unknown) date) requested for unknown) admission to the medical floor. (unknown) (no (unknown) (unknown) oxycodone 10 mg (units (unknown) date) tablet,oral unknown) only,ext.rel.12 hr (unknown) (no (unknown) (unknown) oxycodone 5 mg (units (unknown) date) Tablet unknown) (unknown) (no (unknown) (unknown) oxycodone.? When he (unit s (unknown) date) presented to this unknown) emergency room the splint was found to (unknown) (no (unknown) (unknown) oxygen saturation of (uni ts (unknown) date) 100% on room air he unknown) weighs 94 kg with a BMI of 33.4.? (unknown) (no (unknown) (unknown) pretty good control (unit s (unknown) date) in thought his A1c unknown) was less than 8.? He denies nausea or (unknown) (no (unknown) (unknown) prevent orthostasis (unit s (unknown) date) unknown) (unknown) (no (unknown) (unknown) profoundly anemic (units (unknown) date) with a hemoglobin and unknown) hematocrit of 6.7 and 20.8 respectively (unknown) (no (unknown) (unknown) readmitted to (units ( unknown) date) [facility].? He unknown) does not understand why he has here inn (unknown) (no (unknown) (unknown) respectively, (units ( unknown) date) platelet count is unknown) 206, sodium 132 chloride 97 BUN 61 creatinine (unknown) (no (unknown) (unknown) right coronary (units (unknown) date) artery, had a unknown) transesophageal echocardiogram and cardioversion (unknown) (no (unknown) (unknown) steady or with help. (uni ts (unknown) date) unknown) (unknown) (no (unknown) (unknown) succinate 50 mg, (units (unknown) date) spironolactone 25 mg, unknown) torsemide 20 mg, Jardiance, lisinopril (unknown) (no (unknown) (unknown) supple.? Neck nodes (unit s (unknown) date) are nontender unknown) nonpalpable.? Head is normocephalic.? Trachea (unknown) (no (unknown) (unknown) the blood pressure (units (unknown) date) transfusion the unknown) patient was administered IV Lasix 80 mg in (unknown) (no (unknown) (unknown) the patient's blood (unit s (unknown) date) pressure improved and unknown) he became a lot more alert and (unknown) (no (unknown) (unknown) the son and (units (un known) date) paramedics which unknown) precipitated bringing him here.? Patient has a (unknown) (no (unknown) (unknown) these were all due (units (unknown) date) to his falls. unknown) (unknown) (no (unknown) (unknown) to be resumed on his (uni ts (unknown) date) home medications of unknown) aspirin, clopidogrel, metoprolol (unknown) (no (unknown) (unknown) to his home oral dose (uni ts (unknown) date) of unknown) hydrochlorothiazide and torsemide.? Will increase daily (unknown) (no (unknown) (unknown) torsemide 20 mg (units (unknown) date) Tablet unknown) (unknown) (no (unknown) (unknown) trauma/injury (units ( unknown) date) unknown) (unknown) (no (unknown) (unknown) treatment.? 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 He (uni ts (unknown) date) ended up staying unknown) longer to manage his atrial fibrillation (unknown) (no (unknown) (unknown) urine bacteria and (units (unknown) date) apparently yeast and unknown) meets criteria for culture.? COVID-19 (unknown) (no (unknown) (unknown) vomiting, dysuria (units (unknown) date) diarrhea or unknown) constipation he does state positive to having (unknown) (no (unknown) (unknown) was for ICD (units (un known) date) placement before he unknown) was admitted but will have to be at later date. (unknown) (no (unknown) (unknown) wheezes or crackles. (uni ts (unknown) date) unknown) Result panel 111 (unknown) (no (unknown) (unknown) (no value) (units (unk nown) date) unknown) (unknown) (no (unknown) (unknown) (Bruise), How to (units (unknown) date) Prevent Falls, DI for unknown) Prescription Opioid Use, Skin Wound (unknown) (no (unknown) (unknown) (past 8 hours): (units (unknown) date) unknown) (unknown) (no (unknown) (unknown) -Cr downtrending to (unit s (unknown) date) near baseline unknown) (unknown) (no (unknown) (unknown) -Hold xarelto. Will (unit s (unknown) date) have patient discuss unknown) with PCP resuming it at later time. (unknown) (no (unknown) (unknown) -Patient noted left (unit s (unknown) date) heel pain with unknown) standing (unknown) (no (unknown) (unknown) -Tylenol PRN (units (u nknown) date) unknown) (unknown) (no (unknown) (unknown) -XR negative for (units (unknown) date) calcaneal fracture unknown) (unknown) (no (unknown) (unknown) -dc HCTZ on (units (un known) date) discharge but unknown) continued (unknown) (no (unknown) (unknown) -multiple (units (unkn own) date) orthostatics showed unknown) 20 point in systolic drop (unknown) (no (unknown) (unknown) -patient on xarelto, (uni ts (unknown) date) but per ortho will unknown) hold this due to large left knee (unknown) (no (unknown) (unknown) -patient to discuss (unit s (unknown) date) with mechanical project engineer unknown) about lowering his other BP meds to (unknown) (no (unknown) (unknown) -will have patient (units (unknown) date) discuss with PCP unknown) about resuming at later time (unknown) (no (unknown) (unknown) 0.25 mg SUBCUT QWEEK (uni ts (unknown) date) unknown) (unknown) (no (unknown) (unknown) 04:55 (units (unkno wn) date) unknown) (unknown) (no (unknown) (unknown) 05:00 (units (unkno wn) date) unknown) (unknown) (no (unknown) (unknown) 01/27/22 00:50 (units (unknown) date) unknown) (unknown) (no (unknown) (unknown) 01/27/22 01:02 (units (unknown) date) unknown) (unknown) (no (unknown) (unknown) 01/27/22 01:09 (units (unknown) date) unknown) (unknown) (no (unknown) (unknown) 01/27/22 05:21 (units (unknown) date) unknown) (unknown) (no (unknown) (unknown) 01/27/22 10:13 (units (unknown) date) unknown) (unknown) (no (unknown) (unknown) 02/01/22 02/01/22 (units (unknown) date) 02/02/22 unknown) (unknown) (no (unknown) (unknown) 02/02/22 04:55 (units (unknown) date) unknown) (unknown) (no (unknown) (unknown) 02/02/22 (units (unkno wn) date) unknown) (unknown) (no (unknown) (unknown) 09:08 09:08 04:55 (units (unknown) date) unknown) (unknown) (no (unknown) (unknown) 1 tab PO BEDTIME (units (unknown) date) unknown) (unknown) (no (unknown) (unknown) 1-2 tabs by mouth q (unit s (unknown) date) 6 hours as needed for unknown) pain. (unknown) (no (unknown) (unknown) 1. Acute blood loss (unit s (unknown) date) anemia likely unknown) secondary to over coagulation with what (unknown) (no (unknown) (unknown) 10 mg PO BID (units (u nknown) date) unknown) (unknown) (no (unknown) (unknown) 10 mg PO Q6H PRN (units (unknown) date) (Reason: pain) Qty: unknown) 30 0RF (unknown) (no (unknown) (unknown) 10 mg PO TID (units (u nknown) date) unknown) (unknown) (no (unknown) (unknown) 10. Paroxysmal A-fib (uni ts (unknown) date) unknown) (unknown) (no (unknown) (unknown) 100 mg PO BID (units ( unknown) date) unknown) (unknown) (no (unknown) (unknown) 100 unit SQ DAILY (units (unknown) date) Qty: 0 unknown) (unknown) (no (unknown) (unknown) 12.5 mg PO BID (units (unknown) date) unknown) (unknown) (no (unknown) (unknown) 15 mg PO DAILY (units (unknown) date) unknown) (unknown) (no (unknown) (unknown) 2,000 mg PO DAILY (units (unknown) date) unknown) (unknown) (no (unknown) (unknown) 2,000 units PO DAILY (uni ts (unknown) date) Qty: 0 unknown) (unknown) (no (unknown) (unknown) 2. Acute kidney (units (unknown) date) injury likely unknown) secondary to blood loss anemia, present on (unknown) (no (unknown) (unknown) 2.5 mg PO QDAY Qty: (unit s (unknown) date) 0 unknown) (unknown) (no (unknown) (unknown) 2.5 mg, Xarelto 15 (units (unknown) date) mg, allopurinol, unknown) amiodarone 200 mg, atorvastatin 40 mg, (unknown) (no (unknown) (unknown) 20 mg PO BID (units (u nknown) date) unknown) (unknown) (no (unknown) (unknown) 3. Acute (units (unkno wn) date) decompensated heart unknown) failure with reduced ejection fraction, present on (unknown) (no (unknown) (unknown) 3.18 with an EGFR of (uni ts (unknown) date) 19 glucose 130 unknown) hemoglobin A1c is 6.5 total bilirubin 1.5 (unknown) (no (unknown) (unknown) [id number] (units (unkno wn) date) unknown) (unknown) (no (unknown) (unknown) 4. Left medial knee (unit s (unknown) date) hematoma with unknown) possible overlying cellulitis, acute, present (unknown) (no (unknown) (unknown) 40 mg PO DAILY Qty: (unit s (unknown) date) 0 unknown) (unknown) (no (unknown) (unknown) 40 mg PO DAILY (units (unknown) date) unknown) (unknown) (no (unknown) (unknown) 5. Coronary artery (units (unknown) date) disease, chronic unknown) (unknown) (no (unknown) (unknown) 50 mg PO QDAY Qty: 0 (uni ts (unknown) date) unknown) (unknown) (no (unknown) (unknown) 6. Diabetes type 2, (unit s (unknown) date) appears to be well unknown) controlled (unknown) (no (unknown) (unknown) 7. Mobilization.? (units (unknown) date) Beginning to mobilize unknown) with physical therapy.? Continue with (unknown) (no (unknown) (unknown) 8. Urinary tract (units (unknown) date) infection with unknown) Renetta glabrata.?Asymptomati c so will dc (unknown) (no (unknown) (unknown) 81 mg PO QDAY Qty: 0 (uni ts (unknown) date) unknown) (unknown) (no (unknown) (unknown) 9. Left heel pain, (units (unknown) date) present on admission unknown) (unknown) (no (unknown) (unknown) 9. Orthostatic (units (unknown) date) hypotension unknown) (unknown) (no (unknown) (unknown) A1c is 6.5 (units (unk nown) date) unknown) (unknown) (no (unknown) (unknown) Activity: stand up (units (unknown) date) from laying or unknown) sitting slowly while holding onto something (unknown) (no (unknown) (unknown) Age/Sex: 76 / M (units (unknown) date) unknown) (unknown) (no (unknown) (unknown) [place] but has no (uni ts (unknown) date) problems being here.? unknown) He stated that he does remember (unknown) (no (unknown) (unknown) Anisocytosis 3+ H 3+ (uni ts (unknown) date) H unknown) (unknown) (no (unknown) (unknown) Anisocytosis (units (u nknown) date) unknown) (unknown) (no (unknown) (unknown) Anticoagulated (units (unknown) date) unknown) (unknown) (no (unknown) (unknown) Atrial fibrillation (unit s (unknown) date) unknown) (unknown) (no (unknown) (unknown) January 20 or (units (unknown) date) .? His unknown) anticoagulation had been stopped and he had at (unknown) (no (unknown) (unknown) BUN 59 H (units (unkno wn) date) unknown) (unknown) (no (unknown) (unknown) BUN/Creatinine Ratio (uni ts (unknown) date) 30.1 H unknown) (unknown) (no (unknown) (unknown) BUN/Creatinine Ratio (uni ts (unknown) date) 33.3 H unknown) (unknown) (no (unknown) (unknown) Baso # (Auto) 0 0 (units (unknown) date) unknown) (unknown) (no (unknown) (unknown) Baso # (Auto) (units ( unknown) date) unknown) (unknown) (no (unknown) (unknown) Baso % (Auto) 0.6 (units (unknown) date) 0.8 unknown) (unknown) (no (unknown) (unknown) Baso % (Auto) (units ( unknown) date) unknown) (unknown) (no (unknown) (unknown) Blood Pressure (units (unknown) date) 126/50 L unknown) (unknown) (no (unknown) (unknown) Calcium 8.3 L (units ( unknown) date) unknown) (unknown) (no (unknown) (unknown) Calcium 8.5 (units (un known) date) unknown) (unknown) (no (unknown) (unknown) Carb controlled diet (uni ts (unknown) date) with a.c. 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 (unknown) (no (unknown) (unknown) Cardiovascular:? 06/13 (uni ts (unknown) date) systolic murmur.? unknown) S1-S2.? Peripheral pulses equal (unknown) (no (unknown) (unknown) Changed (units (unkno wn) date) unknown) (unknown) (no (unknown) (unknown) Chief complaint: (units (unknown) date) Dementia unknown) (unknown) (no (unknown) (unknown) Chloride 100 (units (u nknown) date) unknown) (unknown) (no (unknown) (unknown) Closely monitor (units (unknown) date) renal function and unknown) hold nephrotoxic medications (Lisinopril).? (unknown) (no (unknown) (unknown) Comment: Home safety (uni ts (unknown) date) issue unknown) (unknown) (no (unknown) (unknown) Comment: (units (unkno wn) date) unknown) (unknown) (no (unknown) (unknown) Consult to Inpatient (uni ts (unknown) date) Wound Care Nurse unknown) Routine (unknown) (no (unknown) (unknown) Consult to Physical (unit s (unknown) date) Therapy Evaluate + unknown) Treat (unknown) (no (unknown) (unknown) Consult to Physician (uni ts (unknown) date) Routine unknown) (unknown) (no (unknown) (unknown) Consulting Provider: (uni ts (unknown) date) Tony Aceves unknown) (unknown) (no (unknown) (unknown) Consults: (units (unkn own) date) unknown) (unknown) (no (unknown) (unknown) Continue carvedilol (unit s (unknown) date) 25 mg p.o. b.i.d., unknown) patient receives in 12.5 mg tablets (unknown) (no (unknown) (unknown) Continue home (units ( unknown) date) aspiring 81mg daily. unknown) (unknown) (no (unknown) (unknown) Continue home dose (units (unknown) date) of atorvastatin 40 mg unknown) p.o. at bedtime (unknown) (no (unknown) (unknown) Continue home (units ( unknown) date) lisinopril 2.5 unknown) (unknown) (no (unknown) (unknown) Continue home (units ( unknown) date) torsemide unknown) (unknown) (no (unknown) (unknown) Continued (units (unkn own) date) unknown) (unknown) (no (unknown) (unknown) Coronary artery (units (unknown) date) disease unknown) (unknown) (no (unknown) (unknown) Creatinine 1.77 H (units (unknown) date) unknown) (unknown) (no (unknown) (unknown) Creatinine 1.96 H (units (unknown) date) unknown) (unknown) (no (unknown) (unknown) Currently his (units ( unknown) date) hemoglobin and unknown) hematocrit was improved to 7.9 in 24.5 (unknown) (no (unknown) (unknown) : 1945 (units (unknown) date) Acct:[id number] unknown) (unknown) (no (unknown) (unknown) Date Patient Seen: (units (unknown) date) 02/02/22 unknown) (unknown) (no (unknown) (unknown) Date of Service: (units (unknown) date) 01/27/22 unknown) (unknown) (no (unknown) (unknown) Date of admission: (units (unknown) date) unknown) (unknown) (no (unknown) (unknown) Deep Vein (units (unkn own) date) Thrombosis/Pulmonary unknown) Embolism Present on Admission: No (unknown) (no (unknown) (unknown) Diabetes (units (unkno wn) date) unknown) (unknown) (no (unknown) (unknown) Diet comment: (units ( unknown) date) restrict fluids per unknown) MD (unknown) (no (unknown) (unknown) Diet/Activity/Treatm (uni ts (unknown) date) ents unknown) (unknown) (no (unknown) (unknown) Diet: Low-fat and (units (unknown) date) Low-sodium unknown) (unknown) (no (unknown) (unknown) Discharge Data (units (unknown) date) unknown) (unknown) (no (unknown) (unknown) Discharge Date: (units (unknown) date) 02/02/22 unknown) (unknown) (no (unknown) (unknown) Discharge Diagnosis: (uni ts (unknown) date) unknown) (unknown) (no (unknown) (unknown) Discharge Plan (units (unknown) date) unknown) (unknown) (no (unknown) (unknown) Discharge Providers (unit s (unknown) date) unknown) (unknown) (no (unknown) (unknown) Discharge Summary (units (unknown) date) unknown) (unknown) (no (unknown) (unknown) Discharge orders + (units (unknown) date) Medications unknown) (unknown) (no (unknown) (unknown) Discharge provider: (unit s (unknown) date) unknown) (unknown) (no (unknown) (unknown) Discontinued (units (u nknown) date) unknown) (unknown) (no (unknown) (unknown) Doctor (units (unkno wn) date) MD Fernie unknown) (unknown) (no (unknown) (unknown) Dyslipidemia (units (u nknown) date) unknown) (unknown) (no (unknown) (unknown) Echo at [facility] (units (unknown) date) with EF 15%. In the unknown) ER, he received IV Lasix 80 mg in addition (unknown) (no (unknown) (unknown) Eos # (Auto) 100 200 (uni ts (unknown) date) unknown) (unknown) (no (unknown) (unknown) Eos # (Auto) (units (u nknown) date) unknown) (unknown) (no (unknown) (unknown) Eos % (Auto) 2.6 3.4 (uni ts (unknown) date) unknown) (unknown) (no (unknown) (unknown) Eos % (Auto) (units (u nknown) date) unknown) (unknown) (no (unknown) (unknown) Estimated GFR 35 L (units (unknown) date) unknown) (unknown) (no (unknown) (unknown) Estimated GFR 39 L (units (unknown) date) unknown) (unknown) (no (unknown) (unknown) Exam Narrative: (units (unknown) date) unknown) (unknown) (no (unknown) (unknown) Exam (units (unkno wn) date) unknown) (unknown) (no (unknown) (unknown) Family History (units (unknown) date) (Reviewed 01/27/22 @ unknown) 07:53 by Tony Aceves MD) (unknown) (no (unknown) (unknown) Follow up/Referrals: (uni ts (unknown) date) unknown) (unknown) (no (unknown) (unknown) Gastrointestinal:? (units (unknown) date) Bowel sounds normal.? unknown) Abdomen soft.? Nontender. (unknown) (no (unknown) (unknown) Glucose 115 H (units ( unknown) date) unknown) (unknown) (no (unknown) (unknown) Glucose 122 H (units ( unknown) date) unknown) (unknown) (no (unknown) (unknown) HEENT:? Pupils equal (uni ts (unknown) date) reaction to light.? unknown) Extraocular movements normal.? Neck is (unknown) (no (unknown) (unknown) Osmel Baxter is a (units (unknown) date) 76-year-old male unknown) status post CABG approximately 20 years ago, (unknown) (no (unknown) (unknown) Has provider been (units (unknown) date) notified: No unknown) (unknown) (no (unknown) (unknown) Has provider been (units (unknown) date) notified: Yes unknown) (unknown) (no (unknown) (unknown) Hct 28.6 L 27.2 L (units (unknown) date) unknown) (unknown) (no (unknown) (unknown) Hct (units (unkno wn) date) unknown) (unknown) (no (unknown) (unknown) He is afebrile, (units (unknown) date) blood pressure unknown) 108/46, heart rate 58, respiratory rate 12, (unknown) (no (unknown) (unknown) He is currently (units (unknown) date) saline lock due to unknown) volume overload (unknown) (no (unknown) (unknown) [facility] with decompensated (unknown) (no (unknown) (unknown) He will receive his (unit s (unknown) date) home dose of Lantus unknown) 30 units b.i.d. Metformin remains on (unknown) (no (unknown) (unknown) Hgb 9.2 L 8.9 L (units (unknown) date) unknown) (unknown) (no (unknown) (unknown) Hgb (units (unkno wn) date) unknown) (unknown) (no (unknown) (unknown) History of Present (units (unknown) date) Illness unknown) (unknown) (no (unknown) (unknown) Hospital Course (units (unknown) date) unknown) (unknown) (no (unknown) (unknown) Hx of (units (unkno wn) date) cholecystectomy unknown) (unknown) (no (unknown) (unknown) Hypertension (units (u nknown) date) unknown) (unknown) (no (unknown) (unknown) Hypochromasia 1+ H (units (unknown) date) unknown) (unknown) (no (unknown) (unknown) Hypochromasia (units ( unknown) date) unknown) (unknown) (no (unknown) (unknown) Initially vancomycin (uni ts (unknown) date) that was largely unknown) prophylactic since no persistent signs of (unknown) (no (unknown) (unknown) Instructions: (units ( unknown) date) Orthostatic unknown) Hypotension, DI for Heart Failure, DI for Hematoma (unknown) (no (unknown) (unknown) [facility] [address] (uni ts (unknown) date) [address] unknown) [place] [address] (unknown) (no (unknown) (unknown) Laboratory Results - (uni ts (unknown) date) last 24 hr unknown) (unknown) (no (unknown) (unknown) Labs (units (unkno wn) date) unknown) (unknown) (no (unknown) (unknown) Labs: (units (unkno wn) date) unknown) (unknown) (no (unknown) (unknown) Low-dose (units (unkno wn) date) correctional scale unknown) insulin and adjust as needed (unknown) (no (unknown) (unknown) Lymph # (Auto) 600 L (uni ts (unknown) date) 800 L unknown) (unknown) (no (unknown) (unknown) Lymph # (Auto) (units (unknown) date) unknown) (unknown) (no (unknown) (unknown) Lymph % (Auto) 11.9 (unit s (unknown) date) L 16.5 L unknown) (unknown) (no (unknown) (unknown) Lymph % (Auto) (units (unknown) date) unknown) (unknown) (no (unknown) (unknown) MCH 25.4 L 25.6 L (units (unknown) date) unknown) (unknown) (no (unknown) (unknown) MCH (units (unkno wn) date) unknown) (unknown) (no (unknown) (unknown) MCHC 32.2 32.7 (units (unknown) date) unknown) (unknown) (no (unknown) (unknown) MCHC (units (unkno wn) date) unknown) (unknown) (no (unknown) (unknown) MCV 78.9 L 78.1 L (units (unknown) date) unknown) (unknown) (no (unknown) (unknown) MCV (units (unkno wn) date) unknown) (unknown) (no (unknown) (unknown) Freddie Thomas DO (unit s (unknown) date) unknown) (unknown) (no (unknown) (unknown) Ham Agrawal MD (units (unknown) date) [Non-Staff] unknown) (unknown) (no (unknown) (unknown) Medical History (units (unknown) date) (Reviewed 01/27/22 @ unknown) 07:53 by Tony Aceves MD) (unknown) (no (unknown) (unknown) Lajas # (Auto) 400 (units (unknown) date) 500 unknown) (unknown) (no (unknown) (unknown) Lajas # (Auto) (units ( unknown) date) unknown) (unknown) (no (unknown) (unknown) Lajas % (Auto) 8.4 (units (unknown) date) 9.6 unknown) (unknown) (no (unknown) (unknown) Lajas % (Auto) (units ( unknown) date) unknown) (unknown) (no (unknown) (unknown) Musculoskeletal:? (units (unknown) date) Able to move all unknown) extremities volitionally.? Beginning to (unknown) (no (unknown) (unknown) Narrative (units (unkn own) date) unknown) (unknown) (no (unknown) (unknown) Narrative: (units (unk nown) date) unknown) (unknown) (no (unknown) (unknown) Neuro:? Normal (units (unknown) date) sensation of all unknown) extremities.? Oriented x3. (unknown) (no (unknown) (unknown) Neut # (Auto) 3900 (units (unknown) date) 3600 unknown) (unknown) (no (unknown) (unknown) Neut # (Auto) (units ( unknown) date) unknown) (unknown) (no (unknown) (unknown) Neut % (Auto) 76.5 H (uni ts (unknown) date) 69.7 unknown) (unknown) (no (unknown) (unknown) Neut % (Auto) (units ( unknown) date) unknown) (unknown) (no (unknown) (unknown) Objective (units (unkn own) date) unknown) (unknown) (no (unknown) (unknown) Oriented to time (units (unknown) date) place and person.? unknown) Appears in no acute medical distress. (unknown) (no (unknown) (unknown) Orthopedic surgery (units (unknown) date) has been consulted unknown) and seen the patient. (unknown) (no (unknown) (unknown) Other Adopted (units ( unknown) date) unknown) (unknown) (no (unknown) (unknown) Ovalocytes 1+ H (units (unknown) date) unknown) (unknown) (no (unknown) (unknown) Ovalocytes (units (unk nown) date) unknown) (unknown) (no (unknown) (unknown) Oxygen Delivery (units (unknown) date) Method Room Air unknown) (unknown) (no (unknown) (unknown) Oxygen Flow Rate 0 (units (unknown) date) unknown) (unknown) (no (unknown) (unknown) Ozempic 0.25 mg or (units (unknown) date) 0.5 mg(2 mg/1.5 mL) unknown) Pen Injector (unknown) (no (unknown) (unknown) PCR is negative, (units (unknown) date) blood type is A unknown) negative. (unknown) (no (unknown) (unknown) PFSH (units (unkno wn) date) unknown) (unknown) (no (unknown) (unknown) Patient Disposition: (uni ts (unknown) date) Home Health Service unknown) (unknown) (no (unknown) (unknown) Patient does not (units (unknown) date) remember the details unknown) of what brought him here, thought he was (unknown) (no (unknown) (unknown) Patient has a remote (unit s (unknown) date) history of undergoing unknown) a CABG he states about 20 years ago.? (unknown) (no (unknown) (unknown) Patient is currently (uni ts (unknown) date) recovering from unknown) biventricular heart catheterization. Plan (unknown) (no (unknown) (unknown) Patient received 2 (units (unknown) date) units PRBC in the unknown) emergency department increasing his H+H (unknown) (no (unknown) (unknown) Patient to follow-up (uni ts (unknown) date) with wound care unknown) specialist as an outpatient.? Appears to (unknown) (no (unknown) (unknown) Patient was fluid (units (unknown) date) resuscitated in the unknown) emergency department 2 L (unknown) (no (unknown) (unknown) Patient's proBNP was (uni ts (unknown) date) almost 7200.? unknown) Improved yesterday at 5570. (unknown) (no (unknown) (unknown) Patient's (units (unkn own) date) rivaroxaban, aspirin unknown) and clopidogrel are being held.? No evidence of (unknown) (no (unknown) (unknown) Patient: (units (unkno wn) date) Osmel Baxter MR#: unknown) [id number] (unknown) (no (unknown) (unknown) Physician (units (unkn own) date) Instructions: unknown) Evaluate and Treat (unknown) (no (unknown) (unknown) Plt Count 178 190 (units (unknown) date) unknown) (unknown) (no (unknown) (unknown) Plt Count (units (unkn own) date) unknown) (unknown) (no (unknown) (unknown) Potassium 3.9 (units ( unknown) date) unknown) (unknown) (no (unknown) (unknown) Prescriptions: (units (unknown) date) unknown) (unknown) (no (unknown) (unknown) Primary Care (units (u nknown) date) Provider: unknown) Miscellaneous,Doctor (unknown) (no (unknown) (unknown) Primary care (units (u nknown) date) physician: unknown) (unknown) (no (unknown) (unknown) Provider Discharge (units (unknown) date) Comment: Please make unknown) a follow-up with the wound care center (unknown) (no (unknown) (unknown) Provider (units (unkno wn) date) unknown) (unknown) (no (unknown) (unknown) Provider: (units (unkn own) date) Freddie Thomas D.O. unknown) (unknown) (no (unknown) (unknown) Psych:? Normal mood (unit s (unknown) date) and affect. unknown) (unknown) (no (unknown) (unknown) Pulse Oximetry 98 (units (unknown) date) unknown) (unknown) (no (unknown) (unknown) Pulse Rate 60 (units ( unknown) date) unknown) (unknown) (no (unknown) (unknown) Quality (units (unkno wn) date) unknown) (unknown) (no (unknown) (unknown) RBC 3.63 L 3.48 L (units (unknown) date) unknown) (unknown) (no (unknown) (unknown) RBC Morphology See (units (unknown) date) below See below unknown) (unknown) (no (unknown) (unknown) RBC Morphology (units (unknown) date) unknown) (unknown) (no (unknown) (unknown) RBC (units (unkno wn) date) unknown) (unknown) (no (unknown) (unknown) RDW 23.3 H 23.1 H (units (unknown) date) unknown) (unknown) (no (unknown) (unknown) RDW (units (unkno wn) date) unknown) (unknown) (no (unknown) (unknown) Reason for (units (unk nown) date) consultation: large unknown) hematoma, concerning for soft tissue (unknown) (no (unknown) (unknown) Reason for (units (unk nown) date) consultation: left unknown) leg subcutaneous hematoma wound (unknown) (no (unknown) (unknown) Reason for (units (unk nown) date) consultation: pt has unknown) many skin issues (unknown) (no (unknown) (unknown) Report to your (units (unknown) date) healthcare provider unknown) any signs of infection, such as:: chills, (unknown) (no (unknown) (unknown) Respiratory Rate 16 (unit s (unknown) date) unknown) (unknown) (no (unknown) (unknown) Respiratory:? (units ( unknown) date) Adequate air entry unknown) throughout the lung adam, there are no (unknown) (no (unknown) (unknown) Result Diagrams: (units (unknown) date) unknown) (unknown) (no (unknown) (unknown) Review of outside (units (unknown) date) medical records.? 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 Abrasions (units (unknown) date) left foot.? Wound unknown) left knee with hematoma currently dressed.? (unknown) (no (unknown) (unknown) Sleep apnea (units (un known) date) unknown) (unknown) (no (unknown) (unknown) Smoking Status: (units (unknown) date) Former smoker unknown) (unknown) (no (unknown) (unknown) Social History (units (unknown) date) (Updated 09/25/18 @ unknown) 11:17 by Telma Dickey DO) (unknown) (no (unknown) (unknown) Sodium 134 L (units (u nknown) date) unknown) (unknown) (no (unknown) (unknown) Soft tissues (units (u nknown) date) abrasions right arm unknown) dressed. (unknown) (no (unknown) (unknown) Summary (units (unkno wn) date) unknown) (unknown) (no (unknown) (unknown) Surgical History (units (unknown) date) (Reviewed 01/27/22 @ unknown) 07:53 by Tony Aceves MD) (unknown) (no (unknown) (unknown) Temperature 97.5 F L (uni ts (unknown) date) unknown) (unknown) (no (unknown) (unknown) Therefore patient (units (unknown) date) will be on new mg unknown) b.i.d. of torsemide.? Torsemide was chosen (unknown) (no (unknown) (unknown) Time Patient Seen: (units (unknown) date) 13:00 unknown) (unknown) (no (unknown) (unknown) Today, when he (units (unknown) date) presented to the this unknown) emergency department he was found to be (unknown) (no (unknown) (unknown) Transfer to: [facility] (units (unknown) date) [facility] unknown) (unknown) (no (unknown) (unknown) VITAMIN D (Vitamin (units (unknown) date) D3) tablet unknown) (unknown) (no (unknown) (unknown) VTE (units (unkno wn) date) unknown) (unknown) (no (unknown) (unknown) Visit (units (unkno wn) date) Report/Discharge unknown) Packet (unknown) (no (unknown) (unknown) Vital Signs (units (un known) date) unknown) (unknown) (no (unknown) (unknown) WBC 5.1 5.1 (units (un known) date) unknown) (unknown) (no (unknown) (unknown) WBC (units (unkno wn) date) unknown) (unknown) (no (unknown) (unknown) Will need outpatient (uni ts (unknown) date) wound care with HH unknown) and possibly at wound clinic. (unknown) (no (unknown) (unknown) Wound care consulted (uni ts (unknown) date) due to compromised unknown) skin at site of hematoma left leg. (unknown) (no (unknown) (unknown) Xarelto 20 mg tablet (uni ts (unknown) date) unknown) (unknown) (no (unknown) (unknown) [Embedded Image Not (unit s (unknown) date) Available] unknown) (unknown) (no (unknown) (unknown) addition to his (units (unknown) date) normal prescribed unknown) dose of 20 mg p.o. per the emergency provider, (unknown) (no (unknown) (unknown) admission (units (unkn own) date) unknown) (unknown) (no (unknown) (unknown) admission, improving (uni ts (unknown) date) unknown) (unknown) (no (unknown) (unknown) alk phos 170 proBNP (unit s (unknown) date) 7170 procalcitonin is unknown) negative UA is positive for wbc's (unknown) (no (unknown) (unknown) allopurinol 100 mg (units (unknown) date) Tablet unknown) (unknown) (no (unknown) (unknown) and then does not (units (unknown) date) remember anything out unknown) after that. He did endorse being short (unknown) (no (unknown) (unknown) and vancomycin.? He (units (unknown) date) also presented with unknown) an acute kidney injury with a creatinine (unknown) (no (unknown) (unknown) and was administered (uni ts (unknown) date) 2 units PRBC.? It was unknown) determined that patient is likely (unknown) (no (unknown) (unknown) appears to be triple (uni ts (unknown) date) anti-platelet unknown) therapy, present on admission.? Causing (unknown) (no (unknown) (unknown) aspirin 81 MG (units ( unknown) date) tablet,chewable unknown) (unknown) (no (unknown) (unknown) at 15% with volume (units (unknown) date) overload and unknown) tachycardia.? He underwent PCI of the distal (unknown) (no (unknown) (unknown) at [facility] at (units (u nknown) date) [phone] to take unknown) a look at your knee. Also please see your (unknown) (no (unknown) (unknown) atorvastatin 20 mg (units (unknown) date) Tablet unknown) (unknown) (no (unknown) (unknown) bilaterally.? No (units (unknown) date) pedal edema. unknown) (unknown) (no (unknown) (unknown) bled into the large (unit s (unknown) date) hematoma.? He was unknown) very hypotensive when he came in, was (unknown) (no (unknown) (unknown) blood pressure (units (unknown) date) continues to be low, unknown) you should also hold your torsemide and (unknown) (no (unknown) (unknown) carbidopa-levodopa (units (unknown) date) 25-100 mg Tablet unknown) (unknown) (no (unknown) (unknown) mechanical project engineer about (units (unknown) date) resuming your xarelto unknown) at your appointment with him. If your (unknown) (no (unknown) (unknown) mechanical project engineer abby. 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 At that unknown) time he was very short of breath, (unknown) (no (unknown) (unknown) complicated cardiac (unit s (unknown) date) history.? He states unknown) that when he fell, he felt lightheaded (unknown) (no (unknown) (unknown) concerning for (units (unknown) date) sepsis and was given unknown) fluid resuscitation in addition to IV Zosyn (unknown) (no (unknown) (unknown) coreg to see if this (uni ts (unknown) date) improves your BP. unknown) (unknown) (no (unknown) (unknown) coronary artery (units (unknown) date) disease, recent unknown) biventricular PCTA, red, cardioversion, diabetes (unknown) (no (unknown) (unknown) cyclobenzaprine 10 (units (unknown) date) mg Tablet unknown) (unknown) (no (unknown) (unknown) daughter in-law (units (unknown) date) called EMS due to the unknown) patient declining per the ED triage note. (unknown) (no (unknown) (unknown) details: x 9 (uni ts (unknown) date) months unknown) (unknown) (no (unknown) (unknown) due to the mortality (uni ts (unknown) date) benefits in this unknown) patient. (unknown) (no (unknown) (unknown) duloxetine 30 mg, (units (unknown) date) ferrous gluconate 324 unknown) mg, glargine insulin, metformin, (unknown) (no (unknown) (unknown) dyspneic orthopneic (unit s (unknown) date) and unable to lay unknown) flat.? He became tachycardic developing a (unknown) (no (unknown) (unknown) emergency department (uni ts (unknown) date) after injuring his unknown) right knee seemingly occurred about (unknown) (no (unknown) (unknown) evaluate.? Consult (units (unknown) date) completed by wound unknown) care nurse.? Continue current treatment.? (unknown) (no (unknown) (unknown) falling and he (units (unknown) date) thinks he passed unknown) out.? He was allegedly nonresponsive likely to (unknown) (no (unknown) (unknown) fever, night sweats, (uni ts (unknown) date) increased pain, unknown) unusual drainage and unusual redness (unknown) (no (unknown) (unknown) for atrial (units (unkn own) date) fibrillation.? He was unknown) discharged home to his son's home.? He appeared (unknown) (no (unknown) (unknown) from 6.7-7.9 and (units (unknown) date) 20.8-24.5 unknown) respectively.? Hemoglobin now stable at 8-9's.? (unknown) (no (unknown) (unknown) furosemide to 40 mg (unit s (unknown) date) daily.? unknown) Hydrochlorothiazide is not been ordered.? Torsemide (unknown) (no (unknown) (unknown) further bleeding.? (units (unknown) date) Hemoglobin stable.? unknown) Restart aspirin and rivaroxaban tomorrow. (unknown) (no (unknown) (unknown) has been added and (units (unknown) date) is dated furosemide unknown) was discontinued and the torsemide dose (unknown) (no (unknown) (unknown) have actually lodged (unit s (unknown) date) into his medial calf unknown) with some skin peeling surrounding the (unknown) (no (unknown) (unknown) have no infection (units (unknown) date) and is proceeding unknown) with healing. (unknown) (no (unknown) (unknown) heart failure. He was (uni ts (unknown) date) subsequently seen in unknown) the heart failure clinic and admitted (unknown) (no (unknown) (unknown) hematoma but no (units (unknown) date) fracture.? They unknown) applied a posterior splint to immobilize his (unknown) (no (unknown) (unknown) hematoma left leg.? (unit s (unknown) date) With skin compromise unknown) over the hematoma will have wound care (unknown) (no (unknown) (unknown) hematoma (units (unkno wn) date) unknown) (unknown) (no (unknown) (unknown) hematoma.? He also (units (unknown) date) had a number of unknown) dressings on his right arm.? He states that (unknown) (no (unknown) (unknown) history of heart (units (unknown) date) failure with reduced unknown) ejection fraction and has had a recent and (unknown) (no (unknown) (unknown) hold due to renal (units (unknown) date) function. unknown) (unknown) (no (unknown) (unknown) household members: (units (unknown) date) children unknown) (unknown) (no (unknown) (unknown) hydrochlorothiazide (unit s (unknown) date) 25 MG tablet unknown) (unknown) (no (unknown) (unknown) in the hospital (units (unknown) date) service at [facility] unknown) [facility]. Patient was discharged from (unknown) (no (unknown) (unknown) increased to be (units (unknown) date) equivalent of the unknown) dose of the torsemide plus furosemide.? (unknown) (no (unknown) (unknown) infection.? This has (uni ts (unknown) date) been discontinued. unknown) (unknown) (no (unknown) (unknown) insulin glargine (units (unknown) date) [Lantus U-100 unknown) Insulin] 100 UNIT/1 ML solution (unknown) (no (unknown) (unknown) is midline. (units (un known) date) unknown) (unknown) (no (unknown) (unknown) joint, presumably (units (unknown) date) hematoma and likely unknown) the source of the acute blood loss.? After (unknown) (no (unknown) (unknown) large irregular (units (unknown) date) medial soft tissue unknown) mass without extension into the underlying (unknown) (no (unknown) (unknown) left leg and was to (unit s (unknown) date) have removed it in unknown) 2-3 days.? He was discharged with 14 (unknown) (no (unknown) (unknown) lisinopril 20 MG (units (unknown) date) tablet unknown) (unknown) (no (unknown) (unknown) marital status: (units (unknown) date) unknown) (unknown) (no (unknown) (unknown) meantime and (units (u nknown) date) continued your unknown) aspirin for your heart. Please talk with your (unknown) (no (unknown) (unknown) metformin 500 mg (units (unknown) date) Tablet unknown) (unknown) (no (unknown) (unknown) micofungin. (units (un known) date) unknown) (unknown) (no (unknown) (unknown) mobilize more with (units (unknown) date) physical therapy.? No unknown) localized strength deficits. (unknown) (no (unknown) (unknown) narrow complex (units (unknown) date) rhythm and was giving unknown) adenosine and at that time revealing (unknown) (no (unknown) (unknown) numbing of his hands (uni ts (unknown) date) and feet. unknown) (unknown) (no (unknown) (unknown) of 3.18 up from 1.63 (uni ts (unknown) date) in January.? They did unknown) a repeat of the CT which reported a (unknown) (no (unknown) (unknown) of breath but denied (uni ts (unknown) date) chest pain.? He unknown) states that his diabetes seems to be under (unknown) (no (unknown) (unknown) omeprazole 40 MG (units (unknown) date) capsule,delayed unknown) release(DR/EC) (unknown) (no (unknown) (unknown) omeprazole, Mirapex (unit s (unknown) date) 0.125 mg nightly and unknown) as needed nitroglycerin. (unknown) (no (unknown) (unknown) on admission (units (u nknown) date) unknown) (unknown) (no (unknown) (unknown) on on September 06 for (unit s (unknown) date) an elective right unknown) left heart catheterization, undergoing a (unknown) (no (unknown) (unknown) oriented and was (units (unknown) date) requested for unknown) admission to the medical floor. (unknown) (no (unknown) (unknown) oxycodone 10 mg (units (unknown) date) tablet,oral unknown) only,ext.rel.12 hr (unknown) (no (unknown) (unknown) oxycodone 5 mg (units (unknown) date) Tablet unknown) (unknown) (no (unknown) (unknown) oxycodone.? When he (unit s (unknown) date) presented to this unknown) emergency room the splint was found to (unknown) (no (unknown) (unknown) oxygen saturation of (uni ts (unknown) date) 100% on room air he unknown) weighs 94 kg with a BMI of 33.4.? (unknown) (no (unknown) (unknown) pretty good control (unit s (unknown) date) in thought his A1c unknown) was less than 8.? He denies nausea or (unknown) (no (unknown) (unknown) prevent orthostasis (unit s (unknown) date) unknown) (unknown) (no (unknown) (unknown) profoundly anemic (units (unknown) date) with a hemoglobin and unknown) hematocrit of 6.7 and 20.8 respectively (unknown) (no (unknown) (unknown) readmitted to (units ( unknown) date) [facility].? He unknown) does not understand why he has here inn (unknown) (no (unknown) (unknown) respectively, (units ( unknown) date) platelet count is unknown) 206, sodium 132 chloride 97 BUN 61 creatinine (unknown) (no (unknown) (unknown) right coronary (units (unknown) date) artery, had a unknown) transesophageal echocardiogram and cardioversion (unknown) (no (unknown) (unknown) steady or with help. (uni ts (unknown) date) unknown) (unknown) (no (unknown) (unknown) succinate 50 mg, (units (unknown) date) spironolactone 25 mg, unknown) torsemide 20 mg, Jardiance, lisinopril (unknown) (no (unknown) (unknown) supple.? Neck nodes (unit s (unknown) date) are nontender unknown) nonpalpable.? Head is normocephalic.? Trachea (unknown) (no (unknown) (unknown) the blood pressure (units (unknown) date) transfusion the unknown) patient was administered IV Lasix 80 mg in (unknown) (no (unknown) (unknown) the patient's blood (unit s (unknown) date) pressure improved and unknown) he became a lot more alert and (unknown) (no (unknown) (unknown) the son and (units (un known) date) paramedics which unknown) precipitated bringing him here.? Patient has a (unknown) (no (unknown) (unknown) these were all due (units (unknown) date) to his falls. unknown) (unknown) (no (unknown) (unknown) to be resumed on his (uni ts (unknown) date) home medications of unknown) aspirin, clopidogrel, metoprolol (unknown) (no (unknown) (unknown) to his home oral dose (uni ts (unknown) date) of unknown) hydrochlorothiazide and torsemide.? Will increase daily (unknown) (no (unknown) (unknown) torsemide 20 mg (units (unknown) date) Tablet unknown) (unknown) (no (unknown) (unknown) trauma/injury (units ( unknown) date) unknown) (unknown) (no (unknown) (unknown) treatment.? 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 He (uni ts (unknown) date) ended up staying unknown) longer to manage his atrial fibrillation (unknown) (no (unknown) (unknown) urine bacteria and (units (unknown) date) apparently yeast and unknown) meets criteria for culture.? COVID-19 (unknown) (no (unknown) (unknown) vomiting, dysuria (units (unknown) date) diarrhea or unknown) constipation he does state positive to having (unknown) (no (unknown) (unknown) was for ICD (units (un known) date) placement before he unknown) was admitted but will have to be at later date. (unknown) (no (unknown) (unknown) wheezes or crackles. (uni ts (unknown) date) unknown) Result panel 112 (unknown) (no (unknown) (unknown) (no value) (units (unk nown) date) unknown) (unknown) (no (unknown) (unknown) (Bruise), How to (units (unknown) date) Prevent Falls, DI for unknown) Prescription Opioid Use, Skin Wound (unknown) (no (unknown) (unknown) (past 8 hours): (units (unknown) date) unknown) (unknown) (no (unknown) (unknown) -Cr downtrending to (unit s (unknown) date) near baseline unknown) (unknown) (no (unknown) (unknown) -Hold xarelto. Will (unit s (unknown) date) have patient discuss unknown) with PCP resuming it at later time. (unknown) (no (unknown) (unknown) -Patient noted left (unit s (unknown) date) heel pain with unknown) standing (unknown) (no (unknown) (unknown) -Tylenol PRN (units (u nknown) date) unknown) (unknown) (no (unknown) (unknown) -XR negative for (units (unknown) date) calcaneal fracture unknown) (unknown) (no (unknown) (unknown) -dc HCTZ on (units (un known) date) discharge but unknown) continued (unknown) (no (unknown) (unknown) -multiple (units (unkn own) date) orthostatics showed unknown) 20 point in systolic drop (unknown) (no (unknown) (unknown) -patient on xarelto, (uni ts (unknown) date) but per ortho will unknown) hold this due to large left knee (unknown) (no (unknown) (unknown) -patient to discuss (unit s (unknown) date) with mechanical project engineer unknown) about lowering his other BP meds to (unknown) (no (unknown) (unknown) -will have patient (units (unknown) date) discuss with PCP unknown) about resuming at later time (unknown) (no (unknown) (unknown) 0.25 mg SUBCUT QWEEK (uni ts (unknown) date) unknown) (unknown) (no (unknown) (unknown) 04:55 (units (unkno wn) date) unknown) (unknown) (no (unknown) (unknown) 05:00 (units (unkno wn) date) unknown) (unknown) (no (unknown) (unknown) 01/27/22 00:50 (units (unknown) date) unknown) (unknown) (no (unknown) (unknown) 01/27/22 01:02 (units (unknown) date) unknown) (unknown) (no (unknown) (unknown) 01/27/22 01:09 (units (unknown) date) unknown) (unknown) (no (unknown) (unknown) 01/27/22 05:21 (units (unknown) date) unknown) (unknown) (no (unknown) (unknown) 01/27/22 10:13 (units (unknown) date) unknown) (unknown) (no (unknown) (unknown) 02/01/22 02/01/22 (units (unknown) date) 02/02/22 unknown) (unknown) (no (unknown) (unknown) 02/02/22 04:55 (units (unknown) date) unknown) (unknown) (no (unknown) (unknown) 02/02/22 1718 (units ( unknown) date) unknown) (unknown) (no (unknown) (unknown) 02/02/22 (units (unkno wn) date) unknown) (unknown) (no (unknown) (unknown) 09:08 09:08 04:55 (units (unknown) date) unknown) (unknown) (no (unknown) (unknown) 1 tab PO BEDTIME (units (unknown) date) unknown) (unknown) (no (unknown) (unknown) 1-2 tabs by mouth q (unit s (unknown) date) 6 hours as needed for unknown) pain. (unknown) (no (unknown) (unknown) 1. Acute blood loss (unit s (unknown) date) anemia likely unknown) secondary to over coagulation with what (unknown) (no (unknown) (unknown) 10 mg PO BID (units (u nknown) date) unknown) (unknown) (no (unknown) (unknown) 10 mg PO Q6H PRN (units (unknown) date) (Reason: pain) Qty: unknown) 30 0RF (unknown) (no (unknown) (unknown) 10 mg PO TID (units (u nknown) date) unknown) (unknown) (no (unknown) (unknown) 10. Paroxysmal A-fib (uni ts (unknown) date) unknown) (unknown) (no (unknown) (unknown) 100 mg PO BID (units ( unknown) date) unknown) (unknown) (no (unknown) (unknown) 100 unit SQ DAILY (units (unknown) date) Qty: 0 unknown) (unknown) (no (unknown) (unknown) 12.5 mg PO BID (units (unknown) date) unknown) (unknown) (no (unknown) (unknown) 15 mg PO DAILY (units (unknown) date) unknown) (unknown) (no (unknown) (unknown) 2,000 mg PO DAILY (units (unknown) date) unknown) (unknown) (no (unknown) (unknown) 2,000 units PO DAILY (uni ts (unknown) date) Qty: 0 unknown) (unknown) (no (unknown) (unknown) 2. Acute kidney (units (unknown) date) injury likely unknown) secondary to blood loss anemia, present on (unknown) (no (unknown) (unknown) 2.5 mg PO QDAY Qty: (unit s (unknown) date) 0 unknown) (unknown) (no (unknown) (unknown) 2.5 mg, Xarelto 15 (units (unknown) date) mg, allopurinol, unknown) amiodarone 200 mg, atorvastatin 40 mg, (unknown) (no (unknown) (unknown) 20 mg PO BID (units (u nknown) date) unknown) (unknown) (no (unknown) (unknown) 3. Acute (units (unkno wn) date) decompensated heart unknown) failure with reduced ejection fraction, present on (unknown) (no (unknown) (unknown) 3.0. This improved (units (unknown) date) almost to baseline of unknown) 1.7 upon discharge. Orthostatic (unknown) (no (unknown) (unknown) 3.18 with an EGFR of (uni ts (unknown) date) 19 glucose 130 unknown) hemoglobin A1c is 6.5 total bilirubin 1.5 (unknown) (no (unknown) (unknown) [id number] (units (unkno wn) date) unknown) (unknown) (no (unknown) (unknown) 4. Left medial knee (unit s (unknown) date) hematoma with unknown) possible overlying cellulitis, acute, present (unknown) (no (unknown) (unknown) 40 mg PO DAILY Qty: (unit s (unknown) date) 0 unknown) (unknown) (no (unknown) (unknown) 40 mg PO DAILY (units (unknown) date) unknown) (unknown) (no (unknown) (unknown) 5. Coronary artery (units (unknown) date) disease, chronic unknown) (unknown) (no (unknown) (unknown) 50 mg PO QDAY Qty: 0 (uni ts (unknown) date) unknown) (unknown) (no (unknown) (unknown) 6. Diabetes type 2, (unit s (unknown) date) appears to be well unknown) controlled (unknown) (no (unknown) (unknown) 7. Mobilization.? (units (unknown) date) Beginning to mobilize unknown) with physical therapy.? Continue with (unknown) (no (unknown) (unknown) 8. Urinary tract (units (unknown) date) infection with unknown) Renetta glabrata.?Asymptomati c so will dc (unknown) (no (unknown) (unknown) 81 mg PO QDAY Qty: 0 (uni ts (unknown) date) unknown) (unknown) (no (unknown) (unknown) 9. Left heel pain, (units (unknown) date) present on admission unknown) (unknown) (no (unknown) (unknown) 9. Orthostatic (units (unknown) date) hypotension unknown) (unknown) (no (unknown) (unknown) A1c is 6.5 (units (unk nown) date) unknown) (unknown) (no (unknown) (unknown) Activity: stand up (units (unknown) date) from laying or unknown) sitting slowly while holding onto something (unknown) (no (unknown) (unknown) Age/Sex: 76 / M (units (unknown) date) unknown) (unknown) (no (unknown) (unknown) [place] but has no (uni ts (unknown) date) problems being here.? unknown) He stated that he does remember (unknown) (no (unknown) (unknown) Anisocytosis 3+ H 3+ (uni ts (unknown) date) H unknown) (unknown) (no (unknown) (unknown) Anisocytosis (units (u nknown) date) unknown) (unknown) (no (unknown) (unknown) Anticoagulated (units (unknown) date) unknown) (unknown) (no (unknown) (unknown) Atrial fibrillation (unit s (unknown) date) unknown) (unknown) (no (unknown) (unknown) January 20 or (units (unknown) date) .? His unknown) anticoagulation had been stopped and he had at (unknown) (no (unknown) (unknown) BUN 59 H (units (unkno wn) date) unknown) (unknown) (no (unknown) (unknown) BUN/Creatinine Ratio (uni ts (unknown) date) 30.1 H unknown) (unknown) (no (unknown) (unknown) BUN/Creatinine Ratio (uni ts (unknown) date) 33.3 H unknown) (unknown) (no (unknown) (unknown) Baso # (Auto) 0 0 (units (unknown) date) unknown) (unknown) (no (unknown) (unknown) Baso # (Auto) (units ( unknown) date) unknown) (unknown) (no (unknown) (unknown) Baso % (Auto) 0.6 (units (unknown) date) 0.8 unknown) (unknown) (no (unknown) (unknown) Baso % (Auto) (units ( unknown) date) unknown) (unknown) (no (unknown) (unknown) Blood Pressure (units (unknown) date) 126/50 L unknown) (unknown) (no (unknown) (unknown) Calcium 8.3 L (units ( unknown) date) unknown) (unknown) (no (unknown) (unknown) Calcium 8.5 (units (un known) date) unknown) (unknown) (no (unknown) (unknown) Carb controlled diet (uni ts (unknown) date) with a.c. 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 (unknown) (no (unknown) (unknown) Cardiovascular:? 06/13 (uni ts (unknown) date) systolic murmur.? unknown) S1-S2.? Peripheral pulses equal (unknown) (no (unknown) (unknown) Changed (units (unkno wn) date) unknown) (unknown) (no (unknown) (unknown) Chief complaint: (units (unknown) date) Dementia unknown) (unknown) (no (unknown) (unknown) Chloride 100 (units (u nknown) date) unknown) (unknown) (no (unknown) (unknown) Closely monitor (units (unknown) date) renal function and unknown) hold nephrotoxic medications (Lisinopril).? (unknown) (no (unknown) (unknown) Comment: Home safety (uni ts (unknown) date) issue unknown) (unknown) (no (unknown) (unknown) Comment: (units (unkno wn) date) unknown) (unknown) (no (unknown) (unknown) Consult to Inpatient (uni ts (unknown) date) Wound Care Nurse unknown) Routine (unknown) (no (unknown) (unknown) Consult to Physical (unit s (unknown) date) Therapy Evaluate + unknown) Treat (unknown) (no (unknown) (unknown) Consult to Physician (uni ts (unknown) date) Routine unknown) (unknown) (no (unknown) (unknown) Consulting Provider: (uni ts (unknown) date) Tony Aceves unknown) (unknown) (no (unknown) (unknown) Consults: (units (unkn own) date) unknown) (unknown) (no (unknown) (unknown) Continue carvedilol (unit s (unknown) date) 25 mg p.o. b.i.d., unknown) patient receives in 12.5 mg tablets (unknown) (no (unknown) (unknown) Continue home (units ( unknown) date) aspiring 81mg daily. unknown) (unknown) (no (unknown) (unknown) Continue home dose (units (unknown) date) of atorvastatin 40 mg unknown) p.o. at bedtime (unknown) (no (unknown) (unknown) Continue home (units ( unknown) date) lisinopril 2.5 unknown) (unknown) (no (unknown) (unknown) Continue home (units ( unknown) date) torsemide unknown) (unknown) (no (unknown) (unknown) Continued (units (unkn own) date) unknown) (unknown) (no (unknown) (unknown) Coronary artery (units (unknown) date) disease unknown) (unknown) (no (unknown) (unknown) Creatinine 1.77 H (units (unknown) date) unknown) (unknown) (no (unknown) (unknown) Creatinine 1.96 H (units (unknown) date) unknown) (unknown) (no (unknown) (unknown) Currently his (units ( unknown) date) hemoglobin and unknown) hematocrit was improved to 7.9 in 24.5 (unknown) (no (unknown) (unknown) : 1945 (units (unknown) date) Acct:[id number] unknown) (unknown) (no (unknown) (unknown) Date Patient Seen: (units (unknown) date) 02/02/22 unknown) (unknown) (no (unknown) (unknown) Date of Service: (units (unknown) date) 01/27/22 unknown) (unknown) (no (unknown) (unknown) Date of admission: (units (unknown) date) unknown) (unknown) (no (unknown) (unknown) Deep Vein (units (unkn own) date) Thrombosis/Pulmonary unknown) Embolism Present on Admission: No (unknown) (no (unknown) (unknown) Diabetes (units (unkno wn) date) unknown) (unknown) (no (unknown) (unknown) Diet comment: (units ( unknown) date) restrict fluids per unknown) MD (unknown) (no (unknown) (unknown) Diet/Activity/Treatm (uni ts (unknown) date) ents unknown) (unknown) (no (unknown) (unknown) Diet: Low-fat and (units (unknown) date) Low-sodium unknown) (unknown) (no (unknown) (unknown) Discharge Data (units (unknown) date) unknown) (unknown) (no (unknown) (unknown) Discharge Date: (units (unknown) date) 02/02/22 unknown) (unknown) (no (unknown) (unknown) Discharge Diagnosis: (uni ts (unknown) date) unknown) (unknown) (no (unknown) (unknown) Discharge Plan (units (unknown) date) unknown) (unknown) (no (unknown) (unknown) Discharge Providers (unit s (unknown) date) unknown) (unknown) (no (unknown) (unknown) Discharge Summary (units (unknown) date) unknown) (unknown) (no (unknown) (unknown) Discharge orders + (units (unknown) date) Medications unknown) (unknown) (no (unknown) (unknown) Discharge provider: (unit s (unknown) date) unknown) (unknown) (no (unknown) (unknown) Discontinued (units (u nknown) date) unknown) (unknown) (no (unknown) (unknown) Doctor (units (unkno wn) date) Miscellaneous, MD unknown) (unknown) (no (unknown) (unknown) Dyslipidemia (units (u nknown) date) unknown) (unknown) (no (unknown) (unknown) Echo at [facility] (units (unknown) date) with EF 15%. In the unknown) ER, he received IV Lasix 80 mg in addition (unknown) (no (unknown) (unknown) Eos # (Auto) 100 200 (uni ts (unknown) date) unknown) (unknown) (no (unknown) (unknown) Eos # (Auto) (units (u nknown) date) unknown) (unknown) (no (unknown) (unknown) Eos % (Auto) 2.6 3.4 (uni ts (unknown) date) unknown) (unknown) (no (unknown) (unknown) Eos % (Auto) (units (u nknown) date) unknown) (unknown) (no (unknown) (unknown) Estimated GFR 35 L (units (unknown) date) unknown) (unknown) (no (unknown) (unknown) Estimated GFR 39 L (units (unknown) date) unknown) (unknown) (no (unknown) (unknown) Exam Narrative: (units (unknown) date) unknown) (unknown) (no (unknown) (unknown) Exam (units (unkno wn) date) unknown) (unknown) (no (unknown) (unknown) Family History (units (unknown) date) (Reviewed 01/27/22 @ unknown) 07:53 by Tony Aceves MD) (unknown) (no (unknown) (unknown) Follow up/Referrals: (uni ts (unknown) date) unknown) (unknown) (no (unknown) (unknown) Gastrointestinal:? (units (unknown) date) Bowel sounds normal.? unknown) Abdomen soft.? Nontender. (unknown) (no (unknown) (unknown) Glucose 115 H (units ( unknown) date) unknown) (unknown) (no (unknown) (unknown) Glucose 122 H (units ( unknown) date) unknown) (unknown) (no (unknown) (unknown) HEENT:? Pupils equal (uni ts (unknown) date) reaction to light.? unknown) Extraocular movements normal.? Neck is (unknown) (no (unknown) (unknown) Osmel Baxter is a (units (unknown) date) 76-year-old male unknown) status post CABG approximately 20 years ago, (unknown) (no (unknown) (unknown) Has provider been (units (unknown) date) notified: No unknown) (unknown) (no (unknown) (unknown) Has provider been (units (unknown) date) notified: Yes unknown) (unknown) (no (unknown) (unknown) Hct 28.6 L 27.2 L (units (unknown) date) unknown) (unknown) (no (unknown) (unknown) Hct (units (unkno wn) date) unknown) (unknown) (no (unknown) (unknown) He is advised to (units (unknown) date) resume his Coreg, unknown) lisinopril and torsemide upon discharge but (unknown) (no (unknown) (unknown) He is afebrile, (units (unknown) date) blood pressure unknown) 108/46, heart rate 58, respiratory rate 12, (unknown) (no (unknown) (unknown) He is currently (units (unknown) date) saline lock due to unknown) volume overload (unknown) (no (unknown) (unknown) [facility] with decompensated (unknown) (no (unknown) (unknown) He will receive his (unit s (unknown) date) home dose of Lantus unknown) 30 units b.i.d. Metformin remains on (unknown) (no (unknown) (unknown) Hgb 9.2 L 8.9 L (units (unknown) date) unknown) (unknown) (no (unknown) (unknown) Hgb (units (unkno wn) date) unknown) (unknown) (no (unknown) (unknown) History of Present (units (unknown) date) Illness unknown) (unknown) (no (unknown) (unknown) Hospital Course (units (unknown) date) unknown) (unknown) (no (unknown) (unknown) Hospital Course: (units (unknown) date) unknown) (unknown) (no (unknown) (unknown) Hx of (units (unkno wn) date) cholecystectomy unknown) (unknown) (no (unknown) (unknown) Hypertension (units (u nknown) date) unknown) (unknown) (no (unknown) (unknown) Hypochromasia 1+ H (units (unknown) date) unknown) (unknown) (no (unknown) (unknown) Hypochromasia (units ( unknown) date) unknown) (unknown) (no (unknown) (unknown) Initially vancomycin (uni ts (unknown) date) that was largely unknown) prophylactic since no persistent signs of (unknown) (no (unknown) (unknown) Instructions: (units ( unknown) date) Orthostatic unknown) Hypotension, DI for Heart Failure, DI for Hematoma (unknown) (no (unknown) (unknown) [facility] [address] (uni ts (unknown) date) [address] unknown) [place] [address] (unknown) (no (unknown) (unknown) Laboratory Results - (uni ts (unknown) date) last 24 hr unknown) (unknown) (no (unknown) (unknown) Labs (units (unkno wn) date) unknown) (unknown) (no (unknown) (unknown) Labs: (units (unkno wn) date) unknown) (unknown) (no (unknown) (unknown) Low-dose (units (unkno wn) date) correctional scale unknown) insulin and adjust as needed (unknown) (no (unknown) (unknown) Lymph # (Auto) 600 L (uni ts (unknown) date) 800 L unknown) (unknown) (no (unknown) (unknown) Lymph # (Auto) (units (unknown) date) unknown) (unknown) (no (unknown) (unknown) Lymph % (Auto) 11.9 (unit s (unknown) date) L 16.5 L unknown) (unknown) (no (unknown) (unknown) Lymph % (Auto) (units (unknown) date) unknown) (unknown) (no (unknown) (unknown) MCH 25.4 L 25.6 L (units (unknown) date) unknown) (unknown) (no (unknown) (unknown) MCH (units (unkno wn) date) unknown) (unknown) (no (unknown) (unknown) MCHC 32.2 32.7 (units (unknown) date) unknown) (unknown) (no (unknown) (unknown) MCHC (units (unkno wn) date) unknown) (unknown) (no (unknown) (unknown) MCV 78.9 L 78.1 L (units (unknown) date) unknown) (unknown) (no (unknown) (unknown) MCV (units (unkno wn) date) unknown) (unknown) (no (unknown) (unknown) Freddie Thomas DO (unit s (unknown) date) unknown) (unknown) (no (unknown) (unknown) Ham Agrawal MD (units (unknown) date) [Non-Staff] unknown) (unknown) (no (unknown) (unknown) Medical History (units (unknown) date) (Reviewed 01/27/22 @ unknown) 07:53 by Tony Aceves MD) (unknown) (no (unknown) (unknown) [place]ajas # (Auto) 400 (units (unknown) date) 500 unknown) (unknown) (no (unknown) (unknown) Lajas # (Auto) (units ( unknown) date) unknown) (unknown) (no (unknown) (unknown) [place]ajas % (Auto) 8.4 (units (unknown) date) 9.6 unknown) (unknown) (no (unknown) (unknown) Lajas % (Auto) (units ( unknown) date) unknown) (unknown) (no (unknown) (unknown) Musculoskeletal:? (units (unknown) date) Able to move all unknown) extremities volitionally.? Beginning to (unknown) (no (unknown) (unknown) Narrative (units (unkn own) date) unknown) (unknown) (no (unknown) (unknown) Narrative: (units (unk nown) date) unknown) (unknown) (no (unknown) (unknown) Neuro:? Normal (units (unknown) date) sensation of all unknown) extremities.? Oriented x3. (unknown) (no (unknown) (unknown) Neut # (Auto) 3900 (units (unknown) date) 3600 unknown) (unknown) (no (unknown) (unknown) Neut # (Auto) (units ( unknown) date) unknown) (unknown) (no (unknown) (unknown) Neut % (Auto) 76.5 H (uni ts (unknown) date) 69.7 unknown) (unknown) (no (unknown) (unknown) Neut % (Auto) (units ( unknown) date) unknown) (unknown) (no (unknown) (unknown) Objective (units (unkn own) date) unknown) (unknown) (no (unknown) (unknown) Oriented to time (units (unknown) date) place and person.? unknown) Appears in no acute medical distress. (unknown) (no (unknown) (unknown) Orthopedic surgery (units (unknown) date) has been consulted unknown) and seen the patient. (unknown) (no (unknown) (unknown) Other Adopted (units ( unknown) date) unknown) (unknown) (no (unknown) (unknown) Ovalocytes 1+ H (units (unknown) date) unknown) (unknown) (no (unknown) (unknown) Ovalocytes (units (unk nown) date) unknown) (unknown) (no (unknown) (unknown) Oxygen Delivery (units (unknown) date) Method Room Air unknown) (unknown) (no (unknown) (unknown) Oxygen Flow Rate 0 (units (unknown) date) unknown) (unknown) (no (unknown) (unknown) Ozempic 0.25 mg or (units (unknown) date) 0.5 mg(2 mg/1.5 mL) unknown) Pen Injector (unknown) (no (unknown) (unknown) PCR is negative, (units (unknown) date) blood type is A unknown) negative. (unknown) (no (unknown) (unknown) PFSH (units (unkno wn) date) unknown) (unknown) (no (unknown) (unknown) Patient Disposition: (uni ts (unknown) date) Home Health Service unknown) (unknown) (no (unknown) (unknown) Patient admitted for (uni ts (unknown) date) fall at home unknown) resulting in large left medial hematoma and (unknown) (no (unknown) (unknown) Patient does not (units (unknown) date) remember the details unknown) of what brought him here, thought he was (unknown) (no (unknown) (unknown) Patient has a remote (unit s (unknown) date) history of undergoing unknown) a CABG he states about 20 years ago.? (unknown) (no (unknown) (unknown) Patient is currently (uni ts (unknown) date) recovering from unknown) biventricular heart catheterization. Plan (unknown) (no (unknown) (unknown) Patient received 2 (units (unknown) date) units PRBC in the unknown) emergency department increasing his H+H (unknown) (no (unknown) (unknown) Patient to follow-up (uni ts (unknown) date) with wound care unknown) specialist as an outpatient.? Appears to (unknown) (no (unknown) (unknown) Patient was fluid (units (unknown) date) resuscitated in the unknown) emergency department 2 L (unknown) (no (unknown) (unknown) Patient's proBNP was (uni ts (unknown) date) almost 7200.? unknown) Improved yesterday at 5570. (unknown) (no (unknown) (unknown) Patient's (units (unkn own) date) rivaroxaban, aspirin unknown) and clopidogrel are being held.? No evidence of (unknown) (no (unknown) (unknown) Patient: (units (unkno wn) date) Osmel Baxter MR#: unknown) M000 (unknown) (no (unknown) (unknown) Physician (units (unkn own) date) Instructions: unknown) Evaluate and Treat (unknown) (no (unknown) (unknown) Plt Count 178 190 (units (unknown) date) unknown) (unknown) (no (unknown) (unknown) Plt Count (units (unkn own) date) unknown) (unknown) (no (unknown) (unknown) Potassium 3.9 (units ( unknown) date) unknown) (unknown) (no (unknown) (unknown) Prescriptions: (units (unknown) date) unknown) (unknown) (no (unknown) (unknown) Primary Care (units (u nknown) date) Provider: unknown) Miscellaneous,Doctor (unknown) (no (unknown) (unknown) Primary care (units (u nknown) date) physician: unknown) (unknown) (no (unknown) (unknown) Provider Discharge (units (unknown) date) Comment: Please make unknown) a follow-up with the wound care center (unknown) (no (unknown) (unknown) Provider (units (unkno wn) date) unknown) (unknown) (no (unknown) (unknown) Provider: (units (unkn own) date) Freddie Thomas D.O. unknown) (unknown) (no (unknown) (unknown) Psych:? Normal mood (unit s (unknown) date) and affect. unknown) (unknown) (no (unknown) (unknown) Pulse Oximetry 98 (units (unknown) date) unknown) (unknown) (no (unknown) (unknown) Pulse Rate 60 (units ( unknown) date) unknown) (unknown) (no (unknown) (unknown) Quality (units (unkno wn) date) unknown) (unknown) (no (unknown) (unknown) RBC 3.63 L 3.48 L (units (unknown) date) unknown) (unknown) (no (unknown) (unknown) RBC Morphology See (units (unknown) date) below See below unknown) (unknown) (no (unknown) (unknown) RBC Morphology (units (unknown) date) unknown) (unknown) (no (unknown) (unknown) RBC (units (unkno wn) date) unknown) (unknown) (no (unknown) (unknown) RDW 23.3 H 23.1 H (units (unknown) date) unknown) (unknown) (no (unknown) (unknown) RDW (units (unkno wn) date) unknown) (unknown) (no (unknown) (unknown) Reason for (units (unk nown) date) consultation: large unknown) hematoma, concerning for soft tissue (unknown) (no (unknown) (unknown) Reason for (units (unk nown) date) consultation: left unknown) leg subcutaneous hematoma wound (unknown) (no (unknown) (unknown) Reason for (units (unk nown) date) consultation: pt has unknown) many skin issues (unknown) (no (unknown) (unknown) Recommended (units (un known) date) follow-up with Wound unknown) Care Clinic for ongoing management upon (unknown) (no (unknown) (unknown) Report to your (units (unknown) date) healthcare provider unknown) any signs of infection, such as:: chills, (unknown) (no (unknown) (unknown) Respiratory Rate 16 (unit s (unknown) date) unknown) (unknown) (no (unknown) (unknown) Respiratory:? (units ( unknown) date) Adequate air entry unknown) throughout the lung adam, there are no (unknown) (no (unknown) (unknown) Result Diagrams: (units (unknown) date) unknown) (unknown) (no (unknown) (unknown) Review of outside (units (unknown) date) medical records.? 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 Abrasions (units (unknown) date) left foot.? Wound unknown) left knee with hematoma currently dressed.? (unknown) (no (unknown) (unknown) Sleep apnea (units (un known) date) unknown) (unknown) (no (unknown) (unknown) Smoking Status: (units (unknown) date) Former smoker unknown) (unknown) (no (unknown) (unknown) Social History (units (unknown) date) (Updated 09/25/18 @ unknown) 11:17 by Telma Dickey DO) (unknown) (no (unknown) (unknown) Sodium 134 L (units (u nknown) date) unknown) (unknown) (no (unknown) (unknown) Soft tissues (units (u nknown) date) abrasions right arm unknown) dressed. (unknown) (no (unknown) (unknown) Summary (units (unkno wn) date) unknown) (unknown) (no (unknown) (unknown) Surgical History (units (unknown) date) (Reviewed 01/27/22 @ unknown) 07:53 by Tony Aceves MD) (unknown) (no (unknown) (unknown) Temperature 97.5 F L (uni ts (unknown) date) unknown) (unknown) (no (unknown) (unknown) Therefore patient (units (unknown) date) will be on new mg unknown) b.i.d. of torsemide.? Torsemide was chosen (unknown) (no (unknown) (unknown) Time Patient Seen: (units (unknown) date) 13:00 unknown) (unknown) (no (unknown) (unknown) Today, when he (units (unknown) date) presented to the this unknown) emergency department he was found to be (unknown) (no (unknown) (unknown) Transfer to: [facility] (units (unknown) date) [facility] unknown) (unknown) (no (unknown) (unknown) VITAMIN D (Vitamin (units (unknown) date) D3) tablet unknown) (unknown) (no (unknown) (unknown) VTE (units (unkno wn) date) unknown) (unknown) (no (unknown) (unknown) Visit (units (unkno wn) date) Report/Discharge unknown) Packet (unknown) (no (unknown) (unknown) Vital Signs (units (un known) date) unknown) (unknown) (no (unknown) (unknown) WBC 5.1 5.1 (units (un known) date) unknown) (unknown) (no (unknown) (unknown) WBC (units (unkno wn) date) unknown) (unknown) (no (unknown) (unknown) Will need outpatient (uni ts (unknown) date) wound care with HH unknown) and possibly at wound clinic. (unknown) (no (unknown) (unknown) Wound care consulted (uni ts (unknown) date) due to compromised unknown) skin at site of hematoma left leg. (unknown) (no (unknown) (unknown) Xarelto 20 mg tablet (uni ts (unknown) date) unknown) (unknown) (no (unknown) (unknown) [Embedded Image Not (unit s (unknown) date) Available] unknown) (unknown) (no (unknown) (unknown) addition to his (units (unknown) date) normal prescribed unknown) dose of 20 mg p.o. per the emergency provider, (unknown) (no (unknown) (unknown) admission (units (unkn own) date) unknown) (unknown) (no (unknown) (unknown) admission, improving (uni ts (unknown) date) unknown) (unknown) (no (unknown) (unknown) alk phos 170 proBNP (unit s (unknown) date) 7170 procalcitonin is unknown) negative UA is positive for wbc's (unknown) (no (unknown) (unknown) allopurinol 100 mg (units (unknown) date) Tablet unknown) (unknown) (no (unknown) (unknown) and then does not (units (unknown) date) remember anything out unknown) after that. He did endorse being short (unknown) (no (unknown) (unknown) and vancomycin.? He (units (unknown) date) also presented with unknown) an acute kidney injury with a creatinine (unknown) (no (unknown) (unknown) and was administered (uni ts (unknown) date) 2 units PRBC.? It was unknown) determined that patient is likely (unknown) (no (unknown) (unknown) appears to be triple (uni ts (unknown) date) anti-platelet unknown) therapy, present on admission.? Causing (unknown) (no (unknown) (unknown) aspirin 81 MG (units ( unknown) date) tablet,chewable unknown) (unknown) (no (unknown) (unknown) at 15% with volume (units (unknown) date) overload and unknown) tachycardia.? He underwent PCI of the distal (unknown) (no (unknown) (unknown) at [facility] at (units (u nknown) date) [phone] to take unknown) a look at your knee. Also please see your (unknown) (no (unknown) (unknown) atorvastatin 20 mg (units (unknown) date) Tablet unknown) (unknown) (no (unknown) (unknown) bilaterally.? No (units (unknown) date) pedal edema. unknown) (unknown) (no (unknown) (unknown) bled into the large (unit s (unknown) date) hematoma.? He was unknown) very hypotensive when he came in, was (unknown) (no (unknown) (unknown) blood loss anemia (units (unknown) date) requiring 2 units of unknown) PRBCs. Ortho evaluated the left knee and (unknown) (no (unknown) (unknown) blood pressure (units (unknown) date) continues to be low, unknown) you should also hold your torsemide and (unknown) (no (unknown) (unknown) carbidopa-levodopa (units (unknown) date) 25-100 mg Tablet unknown) (unknown) (no (unknown) (unknown) mechanical project engineer about (units (unknown) date) resuming your xarelto unknown) at your appointment with him. If your (unknown) (no (unknown) (unknown) mechanical project engineer abby. (units (unknown) date) I've stopped your unknown) xarelto and HCTZ blood pressure med in the (unknown) (no (unknown) (unknown) mechanical project engineer. 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 At that unknown) time he was very short of breath, (unknown) (no (unknown) (unknown) complicated cardiac (unit s (unknown) date) history.? He states unknown) that when he fell, he felt lightheaded (unknown) (no (unknown) (unknown) concerning for (units (unknown) date) sepsis and was given unknown) fluid resuscitation in addition to IV Zosyn (unknown) (no (unknown) (unknown) coreg to see if this (uni ts (unknown) date) improves your BP. unknown) (unknown) (no (unknown) (unknown) coronary artery (units (unknown) date) disease, recent unknown) biventricular PCTA, red, cardioversion, diabetes (unknown) (no (unknown) (unknown) cyclobenzaprine 10 (units (unknown) date) mg Tablet unknown) (unknown) (no (unknown) (unknown) daughter in-law (units (unknown) date) called EMS due to the unknown) patient declining per the ED triage note. (unknown) (no (unknown) (unknown) details: x 9 (uni ts (unknown) date) months unknown) (unknown) (no (unknown) (unknown) did not think (units ( unknown) date) infection was unknown) contributing to the pain which persisted following (unknown) (no (unknown) (unknown) discharge. Patient's (uni ts (unknown) date) Xarelto was initially unknown) restarted during hospitalization (unknown) (no (unknown) (unknown) due to the mortality (uni ts (unknown) date) benefits in this unknown) patient. (unknown) (no (unknown) (unknown) duloxetine 30 mg, (units (unknown) date) ferrous gluconate 324 unknown) mg, glargine insulin, metformin, (unknown) (no (unknown) (unknown) dyspneic orthopneic (unit s (unknown) date) and unable to lay unknown) flat.? He became tachycardic developing a (unknown) (no (unknown) (unknown) emergency department (uni ts (unknown) date) after injuring his unknown) right knee seemingly occurred about (unknown) (no (unknown) (unknown) evaluate.? Consult (units (unknown) date) completed by wound unknown) care nurse.? Continue current treatment.? (unknown) (no (unknown) (unknown) falling and he (units (unknown) date) thinks he passed unknown) out.? He was allegedly nonresponsive likely to (unknown) (no (unknown) (unknown) fever, night sweats, (uni ts (unknown) date) increased pain, unknown) unusual drainage and unusual redness (unknown) (no (unknown) (unknown) for atrial (units (unkn own) date) fibrillation.? He was unknown) discharged home to his son's home.? He appeared (unknown) (no (unknown) (unknown) from 6.7-7.9 and (units (unknown) date) 20.8-24.5 unknown) respectively.? Hemoglobin now stable at 8-9's.? (unknown) (no (unknown) (unknown) furosemide to 40 mg (unit s (unknown) date) daily.? unknown) Hydrochlorothiazide is not been ordered.? Torsemide (unknown) (no (unknown) (unknown) further bleeding.? (units (unknown) date) Hemoglobin stable.? unknown) Restart aspirin and rivaroxaban tomorrow. (unknown) (no (unknown) (unknown) has been added and (units (unknown) date) is dated furosemide unknown) was discontinued and the torsemide dose (unknown) (no (unknown) (unknown) have actually lodged (unit s (unknown) date) into his medial calf unknown) with some skin peeling surrounding the (unknown) (no (unknown) (unknown) have no infection (units (unknown) date) and is proceeding unknown) with healing. (unknown) (no (unknown) (unknown) heart failure. He was (uni ts (unknown) date) subsequently seen in unknown) the heart failure clinic and admitted (unknown) (no (unknown) (unknown) hematoma but no (units (unknown) date) fracture.? They unknown) applied a posterior splint to immobilize his (unknown) (no (unknown) (unknown) hematoma left leg.? (unit s (unknown) date) With skin compromise unknown) over the hematoma will have wound care (unknown) (no (unknown) (unknown) hematoma (units (unkno wn) date) unknown) (unknown) (no (unknown) (unknown) hematoma.? He also (units (unknown) date) had a number of unknown) dressings on his right arm.? He states that (unknown) (no (unknown) (unknown) hemoglobin remained (unit s (unknown) date) stable. He was also unknown) admitted with an ROSCOE with creatinine of (unknown) (no (unknown) (unknown) history of heart (units (unknown) date) failure with reduced unknown) ejection fraction and has had a recent and (unknown) (no (unknown) (unknown) hold due to renal (units (unknown) date) function. unknown) (unknown) (no (unknown) (unknown) hold (units (unkno wn) date) hydrochlorothiazide unknown) until he follows up with his mechanical project engineer. His aspirin (unknown) (no (unknown) (unknown) hospitalization. (units (unknown) date) Surgery was also not unknown) recommended by wound care alone. (unknown) (no (unknown) (unknown) household members: (units (unknown) date) children unknown) (unknown) (no (unknown) (unknown) hydrochlorothiazide (unit s (unknown) date) 25 MG tablet unknown) (unknown) (no (unknown) (unknown) hypotension so his (units (unknown) date) hydrochlorothiazide unknown) was held as well as Coreg and torsemide. (unknown) (no (unknown) (unknown) in the hospital (units (unknown) date) service at [facility] unknown) [facility]. Patient was discharged from (unknown) (no (unknown) (unknown) increased to be (units (unknown) date) equivalent of the unknown) dose of the torsemide plus furosemide.? (unknown) (no (unknown) (unknown) infection.? This has (uni ts (unknown) date) been discontinued. unknown) (unknown) (no (unknown) (unknown) insulin glargine (units (unknown) date) [Lantus U-100 unknown) Insulin] 100 UNIT/1 ML solution (unknown) (no (unknown) (unknown) is midline. (units (un known) date) unknown) (unknown) (no (unknown) (unknown) joint, presumably (units (unknown) date) hematoma and likely unknown) the source of the acute blood loss.? After (unknown) (no (unknown) (unknown) large irregular (units (unknown) date) medial soft tissue unknown) mass without extension into the underlying (unknown) (no (unknown) (unknown) left leg and was to (unit s (unknown) date) have removed it in unknown) 2-3 days.? He was discharged with 14 (unknown) (no (unknown) (unknown) lisinopril 20 MG (units (unknown) date) tablet unknown) (unknown) (no (unknown) (unknown) marital status: (units (unknown) date) unknown) (unknown) (no (unknown) (unknown) meantime and (units (u nknown) date) continued your unknown) aspirin for your heart. Please talk with your (unknown) (no (unknown) (unknown) metformin 500 mg (units (unknown) date) Tablet unknown) (unknown) (no (unknown) (unknown) micofungin. (units (un known) date) unknown) (unknown) (no (unknown) (unknown) mobilize more with (units (unknown) date) physical therapy.? No unknown) localized strength deficits. (unknown) (no (unknown) (unknown) narrow complex (units (unknown) date) rhythm and was giving unknown) adenosine and at that time revealing (unknown) (no (unknown) (unknown) numbing of his hands (uni ts (unknown) date) and feet. unknown) (unknown) (no (unknown) (unknown) of 3.18 up from 1.63 (uni ts (unknown) date) in January.? They did unknown) a repeat of the CT which reported a (unknown) (no (unknown) (unknown) of breath but denied (uni ts (unknown) date) chest pain.? He unknown) states that his diabetes seems to be under (unknown) (no (unknown) (unknown) omeprazole 40 MG (units (unknown) date) capsule,delayed unknown) release(DR/EC) (unknown) (no (unknown) (unknown) omeprazole, Mirapex (unit s (unknown) date) 0.125 mg nightly and unknown) as needed nitroglycerin. (unknown) (no (unknown) (unknown) on admission (units (u nknown) date) unknown) (unknown) (no (unknown) (unknown) on on September 06 for (unit s (unknown) date) an elective right unknown) left heart catheterization, undergoing a (unknown) (no (unknown) (unknown) oriented and was (units (unknown) date) requested for unknown) admission to the medical floor. (unknown) (no (unknown) (unknown) oxycodone 10 mg (units (unknown) date) tablet,oral unknown) only,ext.rel.12 hr (unknown) (no (unknown) (unknown) oxycodone 5 mg (units (unknown) date) Tablet unknown) (unknown) (no (unknown) (unknown) oxycodone.? When he (unit s (unknown) date) presented to this unknown) emergency room the splint was found to (unknown) (no (unknown) (unknown) oxygen saturation of (uni ts (unknown) date) 100% on room air he unknown) weighs 94 kg with a BMI of 33.4.? (unknown) (no (unknown) (unknown) pretty good control (unit s (unknown) date) in thought his A1c unknown) was less than 8.? He denies nausea or (unknown) (no (unknown) (unknown) prevent orthostasis (unit s (unknown) date) unknown) (unknown) (no (unknown) (unknown) profoundly anemic (units (unknown) date) with a hemoglobin and unknown) hematocrit of 6.7 and 20.8 respectively (unknown) (no (unknown) (unknown) readmitted to (units ( unknown) date) [facility].? He unknown) does not understand why he has here inn (unknown) (no (unknown) (unknown) respectively, (units ( unknown) date) platelet count is unknown) 206, sodium 132 chloride 97 BUN 61 creatinine (unknown) (no (unknown) (unknown) right coronary (units (unknown) date) artery, had a unknown) transesophageal echocardiogram and cardioversion (unknown) (no (unknown) (unknown) steady or with help. (uni ts (unknown) date) unknown) (unknown) (no (unknown) (unknown) succinate 50 mg, (units (unknown) date) spironolactone 25 mg, unknown) torsemide 20 mg, Jardiance, lisinopril (unknown) (no (unknown) (unknown) supple.? Neck nodes (unit s (unknown) date) are nontender unknown) nonpalpable.? Head is normocephalic.? Trachea (unknown) (no (unknown) (unknown) the blood pressure (units (unknown) date) transfusion the unknown) patient was administered IV Lasix 80 mg in (unknown) (no (unknown) (unknown) the patient's blood (unit s (unknown) date) pressure improved and unknown) he became a lot more alert and (unknown) (no (unknown) (unknown) the son and (units (un known) date) paramedics which unknown) precipitated bringing him here.? Patient has a (unknown) (no (unknown) (unknown) then discontinued (units (unknown) date) after he had a unknown) nosebleed which lasted 30 minutes. Patient's (unknown) (no (unknown) (unknown) these were all due (units (unknown) date) to his falls. unknown) (unknown) (no (unknown) (unknown) to be resumed on his (uni ts (unknown) date) home medications of unknown) aspirin, clopidogrel, metoprolol (unknown) (no (unknown) (unknown) to his home oral dose (uni ts (unknown) date) of unknown) hydrochlorothiazide and torsemide.? Will increase daily (unknown) (no (unknown) (unknown) torsemide 20 mg (units (unknown) date) Tablet unknown) (unknown) (no (unknown) (unknown) trauma/injury (units ( unknown) date) unknown) (unknown) (no (unknown) (unknown) treatment.? 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 He (uni ts (unknown) date) ended up staying unknown) longer to manage his atrial fibrillation (unknown) (no (unknown) (unknown) urine bacteria and (units (unknown) date) apparently yeast and unknown) meets criteria for culture.? COVID-19 (unknown) (no (unknown) (unknown) vomiting, dysuria (units (unknown) date) diarrhea or unknown) constipation he does state positive to having (unknown) (no (unknown) (unknown) was for ICD (units (un known) date) placement before he unknown) was admitted but will have to be at later date. (unknown) (no (unknown) (unknown) was resumed on (units (unknown) date) discharge but Xarelto unknown) was held until follow-up with his (unknown) (no (unknown) (unknown) wheezes or crackles. (uni ts (unknown) date) unknown) Social History No information. Vital Signs No information.
[2022-03-05 19:49] LABS: BASOPHILS # (AUTO) 0.1 10^3/uL (0.0-0.1); BASOPHILS % (AUTO) 0.6 %; EOSINOPHILS # (AUTO) 0.2 10^3/uL (0.0-0.7); EOSINOPHILS % (AUTO) 1.5 %; HCT - HEMATOCRIT 39.4 % (42.0-52.0); HGB - HEMOGLOBIN 12.3 g/dL (14.0-18.0); LYMPHOCYTES # (AUTO) 1.4 10^3/uL (1.5-3.5); LYMPHOCYTES % (AUTO) 12.9 %; MEAN CORPUSCULAR HEMOGLOBIN 25.9 pg (27.0-31.0); MEAN CORPUSCULAR HGB CONC 31.2 g/dL (32.0-36.0); MEAN CORPUSCULAR VOLUME 83.1 fL (80.0-94.0); MEAN PLATELET VOLUME 8.7 fL (7.4-11.4); MONOCYTES # (AUTO) 0.8 10^3/uL (0.0-1.0); MONOCYTES % (AUTO) 6.7 %; NEUTROPHILS # (AUTO) 8.7 10^3/uL (1.5-6.6); NEUTROPHILS % (AUTO) 78.1 %; PLT - PLATELET COUNT 190 10^3/uL (130-450); RED BLOOD COUNT 4.74 10^6/uL (4.70-6.10); RED CELL DISTRIBUTION WIDTH 19.2 % (12.0-15.0); WHITE BLOOD COUNT 11.1 x10^3/uL (4.8-10.8)
[2022-03-05 20:02] LABS: ALBUMIN 3.8 g/dL (3.2-5.5); ALBUMIN/GLOBULIN RATIO 0.8 (1.0-2.2); CALCIUM 9.4 mg/dL (8.5-10.3); CREATININE 1.5 mg/dL (0.6-1.2); POTASSIUM 4.6 mmol/L (3.5-5.0); TOTAL PROTEIN 8.4 g/dL (6.7-8.2)
--- NOTE | 2022-03-05 20:13 | ED Physician Documentation ---
History of Present Illness - Stated complaint Stated Complaint: ABD PX - Chief complaint Chief Complaint: Abd Pain - History obtained from History obtained from: Patient - History of Present Illness Timing: Today Pain level max: 5 Pain level now: 0 - Additonal information Additional information: Patient is a 76-year-old male who presents to the emergency department with abdominal pain. He states that this started around noon today. He states that nothing seems to really make it better or worse. He has had slight nausea, no vomiting. No diarrhea. No constipation. Has had a cholecystectomy in the past several years ago. No fever. No chills. Has not had similar symptoms previously. No chest pain. No shortness of breath. He states that the pain is described as cramping. He states that it lasts for a few minutes at a time and comes in waves. Review of Systems Constitutional: denies: Fever, Chills Nose: denies: Rhinorrhea / runny nose, Congestion Throat: denies: Sore throat Cardiac: denies: Chest pain / pressure, Palpitations Respiratory: denies: Dyspnea, Cough GI: denies: Vomiting, Diarrhea, Hematemesis, Bloody / black stool : denies: Dysuria, Frequency, Hesitancy Skin: denies: Rash Musculoskeletal: denies: Neck pain, Back pain Neurologic: denies: Headache PD PAST MEDICAL HISTORY - Past Medical History Cardiovascular: Congestive heart failure, Hypertension, High cholesterol, Coronary artery disease, [place], Atrial fibrillation Respiratory: None, CPAP use Neuro: Dementia, Other Endocrine/Autoimmune: Type 2 diabetes GI: None : None HEENT: None Psych: Depression Musculoskeletal: None Derm: None - Past Surgical History Past Surgical History: Yes General: Cholecystectomy, Appendectomy Cardiovascular: CABG, Coronary stent, Angioplasty - Present Medications Home Medications: Ambulatory Orders Medication Instructions Recorded Confirmed Atorvastatin Calcium 40 mg PO QPM 11/01/16 09/13/21 Omeprazole 40 mg PO QDAC 11/01/16 09/13/21 Testosterone Cypionate 200 mg IM Q14D 11/01/16 09/13/21 [Depo-Testosterone] Metformin HCl [Metformin ER 2,000 mg PO DAILY 11/14/17 09/13/21 Osmotic] Carvedilol [Coreg] 12.5 mg PO BID 01/04/21 09/13/21 DULoxetine [Cymbalta] 90 mg PO DAILY 01/04/21 09/13/21 Ferrous Gluconate [Fergon] 324 mg PO DAILYWM #30 tablet 01/04/21 09/12/21 Pramipexole [Mirapex] 0.125 mg PO HS 01/04/21 09/12/21 oxyCODONE ER [OxyCONTIN] 10 mg PO BID 01/04/21 09/12/21 Tamsulosin [Flomax] 0.4 mg PO DAILY 03/10/21 09/12/21 Amiodarone [Pacerone] 400 mg PO BID 09/12/21 09/13/21 Cyanocobalamin/Folic Acid 1 tab PO DAILY 09/12/21 09/12/21 [R87-Zpfbi Acid 2500-400 Mcg Tb] Empagliflozin [Jardiance] 12.5 mg PO DAILY 09/12/21 09/13/21 Insulin Glargine [Lantus Solostar] 30 units SQ Q12H 09/12/21 09/13/21 Rivaroxaban [Xarelto] 20 mg PO DAILY 09/12/21 09/13/21 Torsemide 40 mg PO DAILY 09/12/21 09/13/21 Acetaminophen [Pain Relief] 650 mg PO PRN PRN 09/13/21 09/13/21 Amiodarone [Pacerone] 200 mg PO DAILY 09/13/21 09/13/21 Benzonatate [Tessalon] 100 mg PO TID PRN 09/13/21 09/13/21 Cholecalciferol (Vitamin D3) 50 mcg PO DAILY 09/13/21 09/13/21 [Vitamin D3] Magnesium Oxide 420 mg PO DAILY 09/13/21 09/13/21 ceFAZolin [Ancef] 2 gm IV Q8H 09/13/21 09/13/21 lisinopriL [Zestril] 5 mg PO DAILY 09/13/21 09/13/21 Amox/Clav 875/125 [Augmentin] 1 each PO Q12H #14 tablet 09/30/21 Oxycodone HCl [Roxicodone] 5 - 10 mg PO Q6H PRN #14 tablet 01/24/22 Doxycycline Hyclate [Vibramycin] 100 mg PO BID 14 Days #28 cap 02/18/22 Dicyclomine [Bentyl] 10 mg PO QID PRN #14 cap 03/05/22 Ondansetron Odt [Zofran] 4 mg TL Q6H PRN #10 tablet 03/05/22 - Allergies Allergies/Adverse Reactions: Allergies Allergy/AdvReac Type Severity Reaction Status Date / Time shellfish derived Allergy Hives Verified 03/05/22 19:21 - Social History Does the pt smoke?: No Smoking Status: Never smoker Does the pt drink ETOH?: Yes Does the pt have substance abuse?: No - Immunizations Immunizations are current?: Yes - POLST Patient has POLST: No POLST Status: Full Code PD ED PE NORMAL - Vitals Vital signs reviewed: Yes - General General: Alert and oriented X 3, No acute distress, Well developed/nourished - HEENT HEENT: PERRL, Moist mucous membranes - Neck Neck: Supple, no meningeal sign - Cardiac Cardiac: RRR, Strong equal pulses - Respiratory Respiratory: No respiratory distress, Clear bilaterally - Abdomen Abdomen: Normal bowel sounds, Soft, Non distended, Other (Mild diffuse tenderness palpation without peritoneal signs.) - Derm Derm: Warm and dry, No rash - Extremities Extremities: No edema - Neuro Neuro: Alert and oriented X 3 - Psych Psych: Normal mood, Normal affect Results - Vitals Vitals: Vital Signs - 24 hr 03/05/22 03/05/22 19:15 20:21 Temperature 36.5 C Heart Rate 60 108 H Respiratory 18 14 Rate Blood Pressure 130/6 L 112/88 H O2 Saturation 98 100 Oxygen O2 Source [] Room air O2 Source [] Room air O2 Source Room air - EKG (time done) 1926 Rate: Rate (enter#) (101) Rhythm: Sinus tachycardia Intervals: LBBB - Labs Labs: Laboratory Tests 03/05/22 03/05/22 19:35 19:35 WBC 11.1 H RBC 4.74 Hgb 12.3 L Hct 39.4 L MCV 83.1 MCH 25.9 L MCHC 31.2 L RDW 19.2 H Plt Count 190 MPV 8.7 Neut # (Auto) 8.7 H Lymph # (Auto) 1.4 L Allen # (Auto) 0.8 Eos # (Auto) 0.2 Baso # (Auto) 0.1 Absolute Nucleated RBC 0.00 Nucleated RBC % 0.0 Sodium 141 Potassium 4.6 Chloride 107 Carbon Dioxide 21 Anion Gap 13.0 BUN 34 H Creatinine 1.5 H Estimated GFR (MDRD) 46 L Glucose 127 H Calcium 9.4 Total Bilirubin 1.0 AST 30 ALT 15 Alkaline Phosphatase 93 Total Protein 8.4 H Albumin 3.8 Globulin 4.6 H Albumin/Globulin Ratio 0.8 L Lipase 46 - Rads (name of study) Ct abd/pelvis Radiology: Final report received, EMP read contemporaneously, See rad report PD MEDICAL DECISION MAKING - ED course Complexity details: reviewed results, re-evaluated patient, considered differential, d/w patient ED course: Patient is well-appearing, nontoxic. Afebrile. Symptoms resolved with Tylenol and Bentyl. Will place on Bentyl for home. Appears to have a viral gastroenteritis. No evidence of bowel obstruction, perforation. Patient is tolerating p.o. without difficulty. Patient is well-appearing, nontoxic. Patient counseled regarding the need for follow-up for his pleural-based nodule. Patient counseled regarding signs and symptoms for which I believe and urgent re-evaluation would be necessary. Patient with good understanding of and agreement to plan and is comfortable going home at this time This document was made in part using voice recognition software. While efforts a re made to proofread this document, sound alike and grammatical errors may occur. IMPRESSION: 1. Mild fluid distention with scattered air-fluid levels throughout the colon suggestive of a gastroenteritis. 2. Pleural-based hypoattenuating nodule medially in the right lower lobe is similar to the prior study from 09/03/2021 but new from the previous 11/13/2017 study. The findings are nonspecific and may reflect a region of chronic atelectasis secondary to patient's pleural effusion but a neoplasm cannot be excluded. Recommend follow-up CT in 6 months or consider further evaluation with PET/CT. Departure - Departure Disposition: 01 Home, Self Care Clinical Impression: Viral gastroenteritis Condition: Good Instructions: ED Gastroenteritis Viral Follow-Up: Deion Wheeler MD [Primary Care Provider] - Within 1 week Prescriptions: Dicyclomine [Bentyl] 10 mg PO QID PRN #14 cap PRN Reason: Abdominal Pain Ondansetron Odt [Zofran] 4 mg TL Q6H PRN #10 tablet PRN Reason: Nausea / Vomiting Comments: Please follow-up with your doctor for further care as needed. Return if you worsen. You may develop diarrhea as well. This should resolve in 2 to 3 days. Your prescriptions were sent to [facility] Please follow-up with your doctor regarding the pleural-based nodule as well. See below IMPRESSION: 1. Mild fluid distention with scattered air-fluid levels throughout the colon suggestive of a gastroenteritis. 2. Pleural-based hypoattenuating nodule medially in the right lower lobe is sim ilar to the prior study from 09/03/2021 but new from the previous 11/13/2017 study. The findings are nonspecific and may reflect a region of chronic atelectasis secondary to patient's pleural effusion but a neoplasm cannot be excluded. Recommend follow-up CT in 6 months or consider further evaluation with PET/CT.
[2022-03-05] MEDS ORDERED: DICYCLOMINE 10 MG CAPSULE PO STA (20:49)
[2022-03-05] MEDS ORDERED: ACETAMINOPHEN 325 MG TABLET PO STA (20:49)
--- NOTE | 2022-03-05 22:32 | CT Report ---
PROCEDURE: Abdomen/Pelvis W INDICATIONS: diffuse abd pain x 6 hours CONTRAST: IV CONTRAST: Optiray 320 ml: 100 PO CONTRAST: *NO PO CONTRAST TECHNIQUE: After the administration of intravenous contrast, 5 mm thick sections acquired from the diaphragms to the symphysis. 5 mm thick coronal and sagittal reformats were acquired. For radiation dose reducti on, the following was used: automated exposure control, adjustment of mA and/or kV according to vanda ent size. COMPARISON: CT abdomen pelvis 09/03/2021, 11/13/2017. FINDINGS: Image quality: Excellent. Lung bases:There is a small loculated pleural effusion redemonstrated within the right lung base wit h a region of compressive atelectasis medially. There is also a pleural-based hyperattenuating nodule measuring 2.2 x 1.3 cm on series 3 image 8 which is similar appeared to the prior study of 09/03/2021 but new from the 11/13/2017 study. Heart: Heart is normal in size. There is a prosthetic aortic valve. ABDOMEN: Liver:There is a cyst within the right hepatic lobe. Gallbladder:Surgically absent. Biliary ducts: No biliary ductal dilatation. Pancreas: Unremarkable. Spleen: Normal in size. Adrenal Glands: No adrenal nodules. Kidneys and Ureters: No hydronephrosis.There are bilateral renal cysts. Stomach and Bowel: Stomach, small bowel loops, and colon are normal in caliber and wall thickness. N o pericecal inflammatory changes to suggest appendicitis. There is mild fluid distention with air-flu id levels throughout the colon suggestive of a gastroenteritis. Peritoneum: No abnormal intraperitoneal fluid. No free air. Ventral Wall: No hernia. Abdominal Nodes: No retroperitoneal or mesenteric adenopathy by size criteria. Vessels: Aorta and inferior vena cava are normal in size. PELVIS: Pelvic Organs: Unremarkable. Bladder:There is mild bladder wall thickening and trabeculation with small diverticula bilaterally s uggesting sequelae of chronic bladder outlet obstruction. Pelvic Nodes: No enlarged lymph nodes. Miscellaneous: No inguinal hernias are seen. Bones: No acute compression fractures. Visualized osseous structures demonstrate no suspicious focal lesions. IMPRESSION: 1. Mild fluid distention with scattered air-fluid levels throughout the colon suggestive of a gastroe nteritis. 2. Pleural-based hypoattenuating nodule medially in the right lower lobe is similar to the prior stud y from 09/03/2021 but new from the previous 11/13/2017 study. The findings are nonspecific and may refle ct a region of chronic atelectasis secondary to patient's pleural effusion but a neoplasm cannot be e xcluded. Recommend follow-up CT in 6 months or consider further evaluation with PET/CT. Reviewed by: Jose Diez MD on 03/05/2022 10:30 PM PDT Approved by: Jose Diez MD on 03/05/2022 10:30 PM PDT Station ID: [id number]
[2022-03-05 22:50] VITALS: BP 127/75
== END 2022-03-05 22:54 | disposition home or self-care (01) ==
LOC: ED 19:12
DX: A08.4 Viral intestinal infection, unspecified (principal)
CPT/HCPCS: 36415; 74177; 80053; 83690; 85025; 93005; 99284; A9270; Q9967